=== PATIENT | male | born 1945 | race Caucasian/White ===

== ENCOUNTER 2016-09-29 20:30 | Observation (INO) | payer MEDICARE, MEDICAID ==
[2016-09-29 20:21] VITALS: PULSE 78
[2016-09-29 21:09] LABS: ADD MANUAL DIFF? NO
[2016-09-29 21:21] LABS: ALB/GLOB RATIO 0.8 (1.1-1.8); BILIRUBIN,TOTAL 0.6 mg/dL (0.2-1.3); CALCIUM 8.4 mg/dL (8.4-10.5); MAGNESIUM 1.6 mg/dL (1.7-2.2); TOTAL PROTEIN 7.1 g/dL (5.8-8.3)
--- NOTE | 2016-09-29 21:26 | ED PDOC ---
Arrival/HPI <Leoncio Mata - Last Filed: 09/29/16 23:02> - General Historian: Patient, Spouse - History of Present Illness Symptom Onset: Sudden Symptom Course: Improving Quality: Pressure Severity Level: Moderate Activities at Onset: Rest Context: Sitting <Erik Petty - Last Filed: 09/30/16 03:04> - General Chief Complaint: Chest Pain Time Seen by Provider: 09/29/16 20:53 - History of Present Illness Narrative History of Present Illness (Text): 09/29/16 21:20 71 M with PMHx of CAD, systolic dysfunction CHF (EF: 15%), IDDM, HTN, AICD placement and Afib on coumadin presented to the [facility] ED accompanied by his with complaints of substernal chest pressure/pain with associated left arm heaviness. Pt's detailed that at approx 7pm, she was in the middle of giving him his medications when he suddenly started feeling the chest pain. He noted that the pain persisted for approx a half hour until he was given medication "to keep under his tongue" which alleviated his chest pains and improved his left arm heaviness. Pt denied fever, chills, sob, chest pains, palpitations, abdominal pains, n/v/d/c or urinary symptoms. PMD - Dr. Palacios System Administration Manager - Dr. Mathews (JovannyJuan Pablokathya) Past Medical History - Provider Review Nursing Documentation Reviewed: Yes <Leoncio Mata - Last Filed: 09/29/16 23:02> - Infectious Disease Hx of Infectious Diseases: None - Tetanus Immunization Tetanus Immunization: Unknown - Cardiac Hx Cardiac Disorders: Yes Hx Cardiac Arrhythmia: Yes Hx Congestive Heart Failure: Yes Hx Hypertension: Yes Hx Internal Defibrillator: Yes Hx Pacemaker: Yes Hx Peripheral Vascular Disease: Yes (DVT UPPER EXT) - Pulmonary Hx Respiratory Disorders: Yes Hx Chronic Obstructive Pulmonary Disease (COPD): Yes - Neurological Hx Neurological Disorder: Yes HX Cerebrovascular Accident: Yes Hx Transient Ischemic Attacks (TIA): Yes - HEENT Hx HEENT Disorder: Yes Hx Cataracts: Yes - Renal Hx Renal Disorder: Yes (Renal insufficinecy) - Endocrine/Metabolic Hx Endocrine Disorders: Yes Hx Diabetes Mellitus Type 1: Yes Hx Diabetes Mellitus Type 2: Yes - Hematological/Oncological Hx Blood Disorders: Yes Hx Anemia: Yes - Integumentary Hx Dermatological Disorder: No - Musculoskeletal/Rheumatological Hx Falls: Yes - Gastrointestinal Hx Gastrointestinal Disorders: Yes (BOWEL OBSTRUCTION) Hx Colostomy: Yes - Genitourinary/Gynecological Hx Genitourinary Disorders: Yes Hx Prostate Problems: Yes (BPH) - Psychiatric Hx Psychophysiologic Disorder: Yes Hx Depression: Yes Hx Substance Use: No - Surgical History Hx Cardiac Catheterization: Yes Hx Coronary Stent: Yes Hx Open Heart Surgery: Yes - Anesthesia Hx Anesthesia Reactions: No Hx Malignant Hyperthermia: No - Suicidal Assessment Feels Threatened In Home Enviroment: No <Erik Petty - Last Filed: 09/30/16 03:04> Family/Social History - Physician Review Nursing Documentation Reviewed: Yes Family/Social History: No Known Family HX <Leoncio Mata - Last Filed: 09/29/16 23:02> Smoking Status: Former Smoker Hx Alcohol Use: No Hx Substance Use: No Hx Substance Use Treatment: No <Erik Petty - Last Filed: 09/30/16 03:04> Allergies/Home Meds <Leoncio Mata - Last Filed: 09/29/16 23:02> <Erik Petty - Last Filed: 09/30/16 03:04> Allergies/Adverse Reactions: Allergies No Known Allergies Allergy (Verified 09/29/16 20:30) Home Medications: Home Meds Medication Instructions Recorded Confirmed Multivitamin [Daily Vitamin 1 each PO DAILY 02/04/16 09/29/16 Formula] Atorvastatin [Lipitor] 10 mg PO HS 05/13/16 09/29/16 Dutasteride 0.5 mg PO DAILY 05/13/16 09/29/16 Ferrous Sulfate [Feosol] 325 mg PO BID 05/13/16 09/29/16 Carvedilol [Coreg] 12.5 mg PO BID 05/20/16 09/29/16 Calcium Carbonate/Vitamin D3 1 each PO DAILY 09/10/16 09/29/16 [Calcium 600+D Softgel] Furosemide [Lasix] 40 mg PO DAILY 09/10/16 09/29/16 Pantoprazole [Protonix] 40 mg PO DAILY 09/10/16 09/29/16 Prednisone [Teresa] 5 mg PO DAILY 09/10/16 09/29/16 Coumadin 2 mg PO HS 09/13/16 09/29/16 Entresto 24 mg-26 mg Tablet 24 mg PO BID 09/13/16 09/29/16 Insulin Glargine, Recombina 10 units SQ BID 09/13/16 09/29/16 [Lantus] Insulin Lispro-LOW [humALOG LOW] See Protocol SQ ACHS 09/13/16 09/29/16 Lasix 40 mg PO DAILY 09/13/16 09/29/16 Sacubitril/Valsartan [Entresto 24 1 tab PO BID 09/13/16 09/29/16 mg-26 mg Tablet] Warfarin [Coumadin] 2 mg PO DIN 09/13/16 09/29/16 Review of Systems - Review of Systems Constitutional: absent: Fevers Cardiovascular: Chest Pain Gastrointestinal: absent: Abdominal Pain, Nausea, Vomiting <Leoncio Mata - Last Filed: 09/29/16 23:02> - Physician Review All systems were reviewed & negative as marked: Yes <Erik Petty - Last Filed: 09/30/16 03:04> Physical Exam Vital Signs Reviewed: Yes Temperature: Afebrile Blood Pressure: Normal Pulse: Regular Respiratory Rate: Normal Appearance: Positive for: Comfortable Pain Distress: None Mental Status: Positive for: Alert and Oriented X 3 - Systems Exam Head: Present: Atraumatic, Normocephalic Pupils: Present: PERRL Extroacular Muscles: Present: EOMI Conjunctiva: Present: Normal Mouth: Present: Moist Mucous Membranes Neck: Present: Normal Range of Motion Respiratory/Chest: Present: Clear to Auscultation, Good Air Exchange. No: Respiratory Distress, Accessory Muscle Use Cardiovascular: Present: Regular Rate and Rhythm, Normal S1, S2. No: Murmurs Abdomen: Present: Normal Bowel Sounds, Other (Rt Colostomy with stool noted). No: Tenderness, Distention, Peritoneal Signs Upper Extremity: Present: Normal Inspection. No: Cyanosis, Edema Lower Extremity: Present: Normal Inspection. No: Edema Neurological: Present: GCS=15, CN II-XII Intact, Speech Normal Skin: Present: Warm, Dry, Normal Color. No: Rashes Psychiatric: Present: Alert, Oriented x 3, Normal Insight, Normal Concentration <Erik Petty - Last Filed: 09/30/16 03:04> Vital Signs Temp Pulse Resp BP Pulse Ox 09/30/16 00:00 78 16 137/71 95 09/29/16 22:30 83 16 129/75 100 09/29/16 22:00 77 18 151/82 H 96 09/29/16 20:21 98.4 F 105 H 18 144/89 97 Medical Decision Making - Lab Interpretations I have reviewed the lab results: Yes - EKG Interpretation Interpreted by ED Physician: Yes Type: 12 lead EKG <Leoncio Mata - Last Filed: 09/29/16 23:02> Reassessment Condition: Improved - EKG Interpretation Comparison: Similar to previous EKG <Erik Petty - Last Filed: 09/30/16 03:04> ED Course and Treatment: Pt seen and evaluated with nuclear medical tech. Aware and agree with HPI, clinical findings, plan, and management. Pt, whose past medical history includes CAD, CHF , IDDM, hypertension, AICD, and atrial fibrillation on Coumadin, presented complaining of substernal chest pressure with left arm heaviness tonight. Plan: -- EKG -- Chest X-ray -- Labs, cardiac enzymes -- UA -- Reassess and disposition Prior Visits: Notes and results from previous visits were reviewed. Progress Notes: 09/29/16 22:[address] Palacios, who is aware and agrees with plan. Accepts pt in to his service. Pt will go to Telemetry observation for chest pain. (Leoncio Mata) - Lab Interpretations Lab Results: 09/29/16 21:07 09/29/16 21:07 Lab Results 09/29/16 21:50: Urine Color Yellow, Urine Appearance Clear, Urine pH 6.0, Ur Specific [place] 1.015, Urine Protein 100 H, Urine Glucose (UA) Negative, Urine Ketones Negative, Urine Blood Moderate H, Urine Nitrate Negative, Urine Bilirubin Negative, Urine Urobilinogen 0.2, Ur Leukocyte Esterase Negative, Urine RBC 0 - 2, Urine WBC 0 - 2, Ur Epithelial Cells 0 - 2, Urine Bacteria Few 09/29/16 21:07: WBC 5.0, RBC 4.52, Hgb 11.7 L, Hct 35.1 L, MCV 77.7 L, MCH 25.9 , MCHC 33.3, RDW 16.2 H, Plt Count 215, MPV 10.5, Gran % 48.8 L, Lymph % (Auto) 33.7, [place] % (Auto) 15.3 H, Eos % (Auto) 2.0, Baso % (Auto) 0.2, Gran # 2.42, Lymph # 1.7, [place] # 0.8 H, Eos # 0.1, Baso # 0.01, Sodium 129 L, Potassium 5.2 H , Chloride 102, Carbon Dioxide 22, Anion Gap 10, BUN 35 H, Creatinine 1.9 H, Est GFR ( Amer) 42, Est GFR (Non-Af Amer) 35, Random Glucose 188 H, Calcium 8.4, Magnesium 1.6 L, Total Bilirubin 0.6, AST 43, ALT 25, Alkaline Phosphatase 146 H, Lactate Dehydrogenase 699, Total Creatine Kinase 60, Troponin I 0.01 D, Total Protein 7.1, Albumin 3.3, Globulin 3.9, Albumin/ Globulin Ratio 0.8 L - RAD Interpretation Radiology Orders: 09/29/16 20:53 CHEST PORTABLE [RAD] Stat Disposition/Present on Arrival <Leoncio Mata - Last Filed: 09/29/16 23:02> - Present on Arrival Any Indicators Present on Arrival: No History of DVT/PE: No History of Uncontrolled Diabetes: No Urinary Catheter: No History of Decub. Ulcer: No History Surgical Site Infection Following: None - Disposition Have Diagnosis and Disposition been Completed?: Yes Disposition Time: 22:00 <Erik Petty - Last Filed: 09/30/16 03:04> - Disposition Diagnosis: Chest pain Disposition: HOSPITALIZED Patient Problems: Current Active Problems Problem Status Diagnosed Hyperglycemia Acute Left upper extremity deep vein thrombosis Acute Condition: STABLE
[2016-09-29 21:30] LABS: POTASSIUM 5.2 mmol/L (3.6-5.0)
[2016-09-29 21:32] LABS: BASO # 0.01 K/mm3 (0.0-2.0); BASO % 0.2 % (0.0-3.0); EOS # 0.1 (0.0-0.7); GRAN # 2.42 (1.4-6.5); GRAN % 48.8 % (50.0-68.0); HEMATOCRIT 35.1 % (42.0-52.0); LYMPH # 1.7 (1.2-3.4); LYMPH % 33.7 % (22.0-35.0); MEAN CELL VOLUME 77.7 fL (80.0-105.0); MEAN CORPUSCULAR HEMOGLOBIN 25.9 pg (25.0-35.0); MEAN CORPUSCULAR HGB CONC 33.3 g/dl (31.0-37.0); MEAN PLATELET VOLUME 10.5 fl (7.0-11.0); MONO # 0.8 (0.1-0.6); MONO % 15.3 % (1.0-6.0); PLATELET COUNT 215 10^3/uL (120.0-450.0); RED CELL DISTRIBUTION WIDTH 16.2 % (11.5-14.5)
[2016-09-29 21:33] LABS: TROPONIN I 0.01 ng/mL
[2016-09-29 22:14] LABS: URINE BILIRUBIN NEGATIVE (NEGATIVE); URINE BLOOD MODERATE (NEGATIVE); URINE GLUCOSE (UA) NEGATIVE (NEGATIVE); URINE KETONE NEGATIVE (NEGATIVE); URINE LEUKOCYTE ESTERASE NEGATIVE Leu/uL (NEGATIVE); URINE PROTEIN 100 mg/dL (<30 mg/dL); URINE UROBILINOGEN 0.2 E.U./dL (<1 E.U./dL)
[2016-09-29 22:18] LABS: URINE APPEARANCE CLEAR (CLEAR); URINE COLOR YELLOW (YELLOW)
[2016-09-29 22:31] LABS: URINE BACTERIA FEW (NEG); URINE EPITHELIAL CELLS 0 - 2 /hpf (0-5); URINE RBC 0 - 2 /hpf (0-2); URINE WBC 0 - 2 /hpf (0-6)
[2016-09-30 01:26] VITALS: BMI 25.8
[2016-09-30 08:56] LABS: CALCIUM 8.7 mg/dL (8.4-10.5); MAGNESIUM 1.7 mg/dL (1.7-2.2); POTASSIUM 4.4 mmol/L (3.6-5.0)
[2016-09-30 09:09] LABS: TROPONIN I 0.02 ng/mL
--- NOTE | 2016-09-30 09:29 | RAD ---
HISTORY: cp COMPARISON: Comparison is made to the previous study dated 09/10/2016 FINDINGS: LUNGS: Persistent focal opacity at the left mid to lower lung which appears larger and more conspicuous compared to the previous exam. The possibility of underlying mass should be considered. Otherwise no significant interval change in the lungs. PLEURA: No significant pleural effusion identified, no pneumothorax apparent. CARDIOVASCULAR: The cardiac silhouette is enlarged. OSSEOUS STRUCTURES: No significant abnormalities. VISUALIZED UPPER ABDOMEN: Normal. OTHER FINDINGS: None. IMPRESSION: Persistent focal opacity at the mid to lower left lung. Further assessment by CT is suggested to exclude underlying mass lesion. Cardiomegaly and pulmonary vascular congestion.
[2016-09-30] MEDS: VALSARTAN PO SCH (10:01)
[2016-09-30] MEDS: SACUBITRIL PO SCH (10:01)
--- NOTE | 2016-09-30 10:05 | CARD ---
APPROVED REPORT EKG Measurement Heart [id number] <Conclusion> Sinus tachycardia PRWP STTW changes c/w ischemia Small inferior q waves No change
[2016-09-30] MEDS: Multivitamin With Minerals Tab PO SCH (10:06)
[2016-09-30] MEDS: Pantoprazole 40 mg EC Tab PO SCH (10:07)
[2016-09-30] MEDS: Insulin Detemir 100 units/ml Vial (Levemir) SC SCH ×2 (10:07→18:18)
[2016-09-30] MEDS: Calcium-Vit D 250 mg-125 Units Tab UD PO SCH (10:07)
[2016-09-30 11:39] LABS: INR 2.31 (0.93-1.08)
[2016-09-30] MEDS: Insulin Lispro (humaLOG) LOW Coverage SC SCH ×2 (12:01→16:27)
[2016-09-30] MEDS: Levalbuterol 1.25 MG/3 ML Inhal Soln UD IH SCH ×3 (14:16→19:31)
--- NOTE | 2016-09-30 15:59 | CON ---
DATE: 09/30/2016 REASON FOR CONSULTATION AND FOLLOWUP: Chest pain, sharp. BRIEF CLINICAL HISTORY: A 71-year-old male with past medical history of coronary artery disease, status post PTCA, decreased LV function 15%, diabetes, hypertension, hyperlipidemia, status post AICD, atrial fibrillation, paroxysmal , on anticoagulation, cardiomyopathy, ischemic, status post PTCA, as well as endovascular stent, colostomy, came in with a complaint of chest pain, as per . Denies any chest pain now, denies any fevers, denies any chills, denies any cough. PAST MEDICAL HISTORY: Significant for cardiomyopathy, coronary artery disease, status post AICD, multiple admissions with decompensated congestive heart failure, was on home Primacor recently because of refusal from the insurance as patient has to pay from the pocket, 1500 a month, off Primacor, history of paroxysmal atrial fibrillation, history of endovascular stent, on anticoagulation. Last echo shows 4-chamber dilatation, ejection fraction 15%, status post colostomy for colon cancer. PAST SURGICAL HISTORY: Significant for right hemicolectomy, history of colostomy, history of bowel resection, history of endovascular stent for abdominal aortic aneurysm, is status post AICD. Most recent workup as follows: History of echo, most recent SERGO was done that shows dilated LA, dilated LV, ejection fraction 15%, severe mitral regurgitation , mild aortic regurgitation, mild tricuspid regurgitation, complex plaque in descending aorta, pacemaker lead in RA and RV. No vegetation noted. CURRENT MEDICATIONS: The patient is taking at home Coumadin 2 mg, Flomax, valsartan, prednisone, Protonix, insulin, ferrous sulfate, carvedilol, atorvastatin and aspirin. REVIEW OF SYSTEMS: As per HPI. PHYSICAL EXAMINATION: VITAL SIGNS: Temperature afebrile, heart rate 71, blood pressure 140/86. HEENT: PERRLA. Extraocular muscles intact. NECK: Supple. No carotid bruits. No thyromegaly. CHEST: Clear to auscultation. HEART: S1, S2 regular. ABDOMEN: Soft. EXTREMITIES: Clubbing and cyanosis negative. LABORATORY DATA: WBC 5, hemoglobin 13.1, hematocrit 35.1, platelet count 215. Chemistry shows sodium 130, potassium 4.4, [id number], carbon dioxide 23, anion gap of 11, BUN 20 creatinine 1.8. Troponin 0.01 x 2 negative. IMPRESSION: Chest pain, atypical, history of coronary artery disease, history of percutaneous transluminal coronary angioplasty of left anterior descending, history of automatic implantable cardioverter-defibrillator implantation, severe decreased left ventricular function, ejection fraction 15%, severe mitral regurgitation, mild tricuspid regurgitation, mild aortic regurgitation, is status post SERGO recently, no evidence of endocarditis, TA recently done 4 weeks ago, approximately, history of automatic implantable cardioverter- defibrillator, no vegetation in ICD lead, history of endovascular stent for abdominal aortic aneurysm, history of hemicolectomy, history of colostomy, history of bowel resection, paroxysmal atrial fibrillation, therapeutic INR 2.31. RECOMMENDATION: Will do another set of troponin. If negative, will discuss with Dr. Palacios for discharge. The patient's wanted to go home. The patient was on Primacor at home, but since the refusal of insurance, is not on Primacor because patient has to pay from the pocket $1500 a month. Will resume anticoagulation, resume baseline medications and possibly discharge in a day or two. Social work for discharge planning. Thank you, Dr. Palacios, for providing the opportunity in taking care of this patient.i will discuss with Dr. Palacios, as the patient's wanted to be discharged today.i zhanna give prescription for Enteresto if not give on last discharge. Arabella Mathews MD cc: [id number] TT: 09/30/2016 14:49:20 Confirmation # [id number] Dictation # [id number] aimee 09/30/2016 14:58:18 MERCEDES
[2016-09-30 17:50] VITALS: TEMP 98.3
--- NOTE | 2016-09-30 23:25 | CON ---
DATE: 09/30/2016 REFERRING PHYSICIAN: Dr. Palacios REASON FOR CONSULT: Shortness of breath and cough, admitted with chest pain. HISTORY OF PRESENT ILLNESS: This is a 71-year-old gentleman with past medical history significant fo r coronary artery disease, history of severe cardiomyopathy, LV ejection fraction about 15%, diabetes , hypertension, cardiac arrhythmia requiring AICD, had atrial fibrillation, on anticoagulation, histo ry of coronary stent in the past. He had been on Primacor, apparently could not get from the [employer], and the patient and his family could not pay out of pocket. Also, does have snoring, daytime sle epy, high risk for sleep apnea syndrome, but did not do a sleep study as outpatient. So far there is cough and some sputum production. No nausea, no vomiting, no diarrhea. Does have trace leg swellin g. PAST MEDICAL HISTORY: Severe cardiomyopathy, ventricular ejection fraction about 15%, coronary arter y disease, history of coronary stent, atrial fibrillation, also has AICD, chronic lung disease, has a history of left upper lobe lung infiltrate, history of colon cancer requiring colostomy. ALLERGIES: None known. SOCIAL HISTORY: Nonsmoker, nondrinker. FAMILY HISTORY: No significant cardiopulmonary disease reported. REVIEW OF SYSTEMS: No headache, no rhinitis. Does have some cough, short of breath, not much sputum production. On admission, he had chest pain, no nausea, no vomiting, no diarrhea. No dysuria. Leo s have trace leg swelling. PHYSICAL EXAMINATION: GENERAL: Lying in the bed, mild distress secondary to cough and shortness of breath. VITAL SIGNS: Temp is 98, heart rate is 68, respiratory rate is 18, blood pressure 141/84, pulse ox 9 8% on room air. HEENT: Moist mucous membranes. Crowded airway. Mallampati score is 4. NECK: Supple, no JVD. LUNGS: Have a few crackles at the bases, scattered rhonchi. HEART: S1, S2 irregular. ABDOMEN: Soft, nontender. No organomegaly. EXTREMITIES: There is no trace edema. NEUROLOGIC: Awake, alert, follows simple commands. MEDICATIONS: He is on aspirin 81 mg daily, Coreg 12.5 mg twice a day, Coumadin 2 mg daily, which is on hold, ferrous sulfate 324 mg twice a day, Flomax 0.4 mg daily, also on Lasix 40 mg daily, Levemir 5 units subQ twice a day, Lipitor 10 mg daily, Proscar 5 mg daily, Protonix 40 mg daily, multivitamin s daily, vitamin K 10 mg subQ once was given, Xopenex inhaled q. 8 hours. LABORATORY DATA: Shows hemoglobin 11.7, hematocrit 35.1, WBC 5.0, platelet is 215. Today's INR is 2 .31. Sodium 133, potassium 4.4, chloride 103, bicarbonate 23, BUN 33, creatinine 1.8, glucose 142, c alcium 8.7, magnesium 1.7. Troponin is 0.02. ProBNP 7820. Urinalysis shows moderate blood, positiv e protein. Chest x-ray, done today, shows persistent focal opacity at the mid to lower left lung, cardiomegaly, and also has some congestion. IMPRESSION AND PLAN: Chronic obstructive lung disease, has a left upper lobe density, status post pn eumonia, atrial fibrillation, cardiomyopathy, has AICD. We will get CT scan of the chest to follow u p on the previous infiltrates/nodule. Maximize afterload protocol officer. Inhaled bronchodilator. We will place patient on BiPAP 10/, with 35% oxygen while sleeping. I spoke to the patient's about the risk/benefit of sleep apnea and use of BiPAP. Cardiology followup. Thank you and we will follow wi th you. Arabella Alva MD cc: [id number] TT: 09/30/2016 23:24:37 Confirmation # [id number] Dictation # [id number] ln
[2016-10-01] MEDS: Insulin Lispro (humaLOG) LOW Coverage SC SCH ×4 (00:31→16:37)
[2016-10-01] MEDS ORDERED: Phytonadione 10 mg/ml Inj (Adult) SC ONE (08:00)
[2016-10-01] MEDS: Levalbuterol 1.25 MG/3 ML Inhal Soln UD IH SCH ×2 (08:27→13:14)
[2016-10-01] MEDS: Pantoprazole 40 mg EC Tab PO SCH (08:42)
[2016-10-01] MEDS: SACUBITRIL PO SCH (09:38)
[2016-10-01] MEDS: VALSARTAN PO SCH (09:38)
[2016-10-01] MEDS: Insulin Detemir 100 units/ml Vial (Levemir) SC SCH (09:43)
[2016-10-01] MEDS: Multivitamin With Minerals Tab PO SCH (09:44)
[2016-10-01] MEDS: Calcium-Vit D 250 mg-125 Units Tab UD PO SCH (09:44)
[2016-10-01 09:45] VITALS: PULSE 80
--- NOTE | 2016-10-01 10:15 | PN ---
DATE: 10/01/2016 REASON FOR CONSULTATION AND FOLLOWUP: Chest pain, sharp, atypical, cardiac evaluation, history of co ronary artery disease, history of AICD. BRIEF CLINICAL HISTORY: A 71-year-old male with a past medical history significant for coronary leigh ann ry disease, status post PTCA of LAD by Dr. Fransico Cabral a couple of years ago, history of signifi cantly decreased LV function, ejection fraction 15%, diabetes, hypertension, hyperlipidemia, status p ost AICD, atrial fibrillation, paroxysmal, on anticoagulation, cardiomyopathy, ischemic, status post PTCA, status post endovascular stent, status post colostomy, was on Primacor, but stopped by [employer] because patient has to pay from the pocket $1500, which the patient cannot afford. Admitted yester day with sharp pain. So far, troponin remains negative. PHYSICAL EXAMINATION: VITAL SIGNS: Temperature afebrile, heart rate 74, blood pressure 144/76. HEENT: PERRLA. Extraocular muscles intact. NECK: Supple. No carotid bruit, no thyromegaly. CHEST: Clear to auscultation. HEART: S1 and S2 regular. ABDOMEN: Soft. EXTREMITIES: Clubbing, cyanosis negative. BLOOD WORKUP: WBC 5, hemoglobin 11. , hematocrit 35.1, platelet count 215. Chemistry shows sodi um 130, potassium 4.4, chloride 103, carbon dioxide 23, anion gap of 11, BUN 33, creatinine 1.8. Tro ponin 0.10, 0.02, 0.02. IMPRESSION: Chest pain, atypical, no evidence of acute coronary syndrome, no evidence of unstable an kaylynn, chronic renal insufficiency, creatinine clearance 37 mL stage III-IV chronic kidney disea se, diabetes, hypertension, hyperlipidemia, coronary artery disease, status post percutaneous translu vanesa coronary angioplasty and stent in left anterior descending, cardiomyopathy, probably ischemic, status post automatic implantable cardioverter-defibrillator, multiple admissions for congestive hear t failure, was on home Primacor, stopped because the insurance stopped paying. RECOMMENDATION: Continue hydralazine for blood pressure. Continue aspirin. Continue Coreg. Avoid nephrotoxic medication. We will start Entresto, prescription given to the , / b.i.d. to b e started at home because Entresto is non-formulary. We will discontinue telemetry. History of colo n cancer requiring colostomy. Yesterday, RN called me that patient had previously infiltrate i n the lung and nodule, possibly needs biopsy. I told him it would be very high risk case because the patient has multiple comorbidities including severe cardiomyopathy, decompensated congestive heart f ailure, ejection fraction 15%, automatic implantable cardioverter-defibrillator. So any invasive pro cedure would be very, very high risk and risk/benefit ratio should be assessed before proceeding and also patient's long-term survival should be assessed. If the patient really gets the benefit and imp rove the patient's survival, patient can go. Otherwise, try to treat conservatively. We will discon tinue telemetry. Thank you, Dr. Palacios, for providing us the opportunity in taking care of the patient. No further ca rdiac workup is planned at this time or warranted. Arabella Mathews MD cc: [id number] TT: 10/01/2016 09:58:43 Confirmation # [id number] Dictation # [id number] en
[2016-10-01 10:19] LABS: HEMATOCRIT 35.2 % (42.0-52.0); MEAN CELL VOLUME 77.7 fL (80.0-105.0); MEAN CORPUSCULAR HEMOGLOBIN 25.4 pg (25.0-35.0); MEAN CORPUSCULAR HGB CONC 32.7 g/dl (31.0-37.0); MEAN PLATELET VOLUME 10.7 fl (7.0-11.0); RED CELL DISTRIBUTION WIDTH 16.2 % (11.5-14.5); WHITE BLOOD COUNT 4.6 10^3/ul (4.5-11.0)
[2016-10-01 10:24] LABS: CALCIUM 8.7 mg/dL (8.4-10.5); MAGNESIUM 1.6 mg/dL (1.7-2.2); POTASSIUM 4.7 mmol/L (3.6-5.0)
[2016-10-01 10:25] LABS: INR 1.85 (0.93-1.08)
[2016-10-01] MEDS ORDERED: Magnesium Oxide 400 mg Tab UD PO SCH (11:30)
--- NOTE | 2016-10-01 12:34 | CT ---
PROCEDURE: CT Chest without contrast HISTORY: Eval lingula mass COMPARISON: CT thorax from 09/05/2016 and plain radiographs from 09/29/2016 TECHNIQUE: Contiguous axial images were obtained through the chest without intravenous contrast enhancement. Sagittal and coronal reconstructions were performed. Radiation dose (DLP): 946.19 mGy-cm. FINDINGS: LUNGS: Examination is limited due to motion degraded images. There compared to the prior examination, there is interval increase in size of known round hyperdense mass in the subpleural anterior lingula which now measures 3.2 x 2.9 cm, previously measured 2.6 x 2.1 cm. There is paraseptal emphysema in the right upper lobe. MEDIASTINUM: There is no pathologic mediastinal lymphadenopathy. The aorta is normal in caliber. The heart is normal in size without pericardial effusion. There are atherosclerotic calcifications in the left anterior descending coronary artery. An AICD remains in place the PLEURA: Trace pleural effusions. No pneumothorax. BONES: There are multilevel degenerative changes in the spine without destructive bony lesions. UPPER ABDOMEN: Cholelithiasis. OTHER FINDINGS: None. 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 The differential considerations include malignancy, round pneumonia and round atelectasis. Correlation with PET CT/histopathology would be helpful for further evaluation.
[2016-10-01 13:34] VITALS: RESP 18; O2SAT 100
--- NOTE | 2016-10-01 13:50 | HP ---
DATE OF HISTORY AND PHYSICAL AND EXAMINATION: 09/30/2016 CHIEF COMPLAINT: The patient came in with chest pain. HISTORY OF PRESENT ILLNESS: This is a 71-year-old male with history of coronary artery disease, isch emic cardiomyopathy, permanent pacemaker, multiple medical problems; congestive heart failure, off mi lrinone infusion due to insurance problems. Came in to the hospital with chest pain, retrosternal, l eft side chest pain radiating to his left arm. The patient had this pain at 7:00 p.m., relieved it w ith nitroglycerin as the gave it to him. The patient also had associated shortness of breath, b ut he felt much better after the nitro. Per recurrent chest pain, patient came to the ER for further evaluation. PAST MEDICAL HISTORY: As I mentioned before, ischemic cardiomyopathy, coronary artery disease, abdom inal aortic aneurysm with a stent, hemicolectomy, colostomy, COPD; lung mass, left upper lobe, possib le malignancy; congestive heart failure, EF in the 15%, chronic atrial fibrillations; history of DVT, insulin-dependent diabetes, hypertension, hypercholesterolemia. 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 ALLERGIES: No known allergies. SOCIAL HISTORY: No smoking, no drinking. FAMILY HISTORY: Noncontributory. REVIEW OF SYSTEMS: As in the present illness. PHYSICAL EXAMINATION: VITAL SIGNS: Temperature 98, heart rate ____, blood pressure is 141/84. The patient otherwise comfo rtable. Respiratory rate 20. HEAD AND NECK: Normal. No JVD, no thyromegaly. CHEST: Clear. CARDIAC: First and second sounds are normal. Systolic murmur. ABDOMEN: Soft. There is a colostomy on the right side. EXTREMITIES: No edema. NEUROLOGIC: He has left side weakness but alert, awake, oriented x 3. LABORATORY DATA: On admission shows white count 5, hemoglobin 11.7, hematocrit 35.1, platelets are 2 15. Chemistry shows sodium 133, potassium 4.4, chloride 103, bicarbonate 23, BUN 33, creatinine 1.8, blood sugar 142, calcium 8.7, magnesium 1 and repeat 1.7. The patient has pro-BNP that shows 7820. Chest x-ray shows persistent focal opacity in the left mid to lower lobe lung which appears larger an d more suspicious compared to previous, possible underlying mass. The patient also had electrocardiogram which shows sinus tachycardia, ST-T wave changes consistent wi th ischemia, small inferior Q-waves. IMPRESSION AND PLAN: 1. This is a 71-year-old male with coronary artery disease who came in with chest pain. EKG shows i schemic changes. Will admit the patient for acute coronary artery syndrome. Dr. Mathews, cardiology co nsult. Resume aspirin and can resume his medications. Will follow up clinically. 2. Congestive heart failure, acute on to top of chronic systolic. Continue Lasix. Continue current medicines. 3. Left upper lobe lung mass, probably malignancy. Will get Dr. Alva (pulmonary) consult and Dr. Isaías Infante (interventional radiologist). At this time, patient is taking Coumadin. Will hold off f rom the Coumadin for possible lung biopsy and will continue current treatment. 4. For his diabetes, hypertension and hypercholesterolemia. Resume all other meds. Dexter Palacios MD cc: 223 TT: 10/01/2016 12:58:09 ne
[2016-10-01 14:27] VITALS: BP 138/78
--- NOTE | 2016-10-04 09:10 | PN ---
DATE: 10/01/2016 REFERRING PHYSICIAN: Dr. Palacios. SUBJECTIVELY: The patient is lying in the bed. is at bedside. Night was unremarkable. No hea dache, no rhinitis, mild cough, no chest pain. No nausea, no vomiting, diarrhea, leg pain, or leg sw elling. OBJECTIVELY: No acute distress. Temp is 98, heart rate is 80, blood pressure 141/84. HENT: Moist mucous membranes. Crowded airway. Mallampati score is 4. NECK: Supple, no JVD. LUNGS: Has a few scattered rhonchi and crackles at the bases. HEART: S1, S2. ABDOMEN: Soft, nontender. No organomegaly. EXTREMITIES: There is no edema. NEUROLOGICALLY: Awake, alert. Follows simple commands. MEDICATIONS: He is on hydralazine 25 mg 3 times a day, aspirin 81 mg daily, Coreg 12.5 mg twice a da y, Coumadin 2 mg daily which is on hold, ferrous sulfate 324 mg twice a day, Flomax 0.4 mg daily, ins ulin coverage, Lasix 40 mg IV daily, Levemir is 5 units subQ twice a day, Lipitor 10 mg daily, magnes ium oxide 400 mg daily, Proscar 5 mg daily, Protonix 40 mg ACB, multivitamins daily, Xopenex inhaled 3 times a day. LABORATORY DATA: Shows hemoglobin 11.5, hematocrit 35.2, WBC 4.6, platelet is 216. INR 1.85. Sodiu m 134, potassium 4.7, chloride 104, bicarbonate is 27, BUN 38, creatinine 2.1, glucose 234, calcium 8 .7, magnesium 1.6. Has a CAT scan of the chest done in for followup for left upper lobe nodule with infiltrate. So, it shows interval increase in size of the known subpleural zimmerman in the interior lingula which is normal ly at 32.2 to 2.9 cm. The differential considerations include malignancy, , pneumonia, at electasis. IMPRESSION AND PLAN: Chronic obstructive lung disease, lung mass status post pneumonia, atrial fibri llation, cardiomyopathy, AICD. May have a component of sleep apnea syndrome. Need to biopsy the infiltrate. High risk for complications. understands. Will speak to Dr. Sa clayton. For now, continue BiPAP. Keep head 45 degrees. Bronchodilator, diuretics, afterload fbi sharpshooter. Thank you, and will follow with you. Arabella Alva MD cc: [phone] TT: 10/01/2016 17:49:20 Confirmation # [id number] Dictation # [id number] jn
--- NOTE | 2016-10-04 14:17 | DS ---
The patient is a 71-year-old male. The patient is stable. The patient was admitted with shortness o f breath and was seen by machine builder and cleared him for discharge. He was given IV Lasix. The pat ient also had a CT lung mass which shows needs a biopsy to rule out malignancy. Otherwise, the patie nt seems stable. Discussed with the machine builder, other specialists. The patient will be discharged home to be followed up as outpatient after getting a CT and we will hold off on any anticoagulation. The patient also was seen by Dr. Isaías Infante for evaluation for biopsy. PHYSICAL EXAMINATION: On date of discharge, which 10/01/2016: VITAL SIGNS: Temperature 98, heart rate 80, blood pressure is 138/78, respirations 18, saturation 97 %. HEAD AND NECK: Normal. No JVD, no thyromegaly. CHEST: Clear, good entry. CARDIAC: First and second sounds are normal. ABDOMEN: Soft, nontender. EXTREMITIES: No edema. NEUROLOGIC: Normal. LABORATORY DATA: CT lungs shows increased size of the left pleural-based lung mass. White count 4.6, hemoglobin 11.5, hematocrit 35.2, platelets 216. Chemistry shows sodium 134, potass ium 4.7, chloride 101, bicarbonate 27, BUN 38, creatinine 2.1, blood sugar is 104. IMPRESSION AND PLAN: 1. Left lung mass, seen by pulmonary consult, Dr. Alva, as well as Dr. Isaías Infante for biopsy. Cou madin INR is high. We will hold off on Coumadin. Vitamin K given. We will discharge the patient to bring him back next week for biopsy. 2. Chronic congestive heart failure. Continue Lasix. Continue all his previous medications. 3. Hypertension, chronic atrial fibrillation, history of deep venous thrombosis, insulin-dependent d iabetes, history of abdominal aneurysm, hypercholesterolemia, colostomy, history of recurrent urinary tract infection, renal insufficiency, chronic. This patient will be discharged and follow up as outpatient. Follow up as outpatient with Dr. Isaías Infante for biopsy. Dexter Palacios MD cc: 223 TT: 10/04/2016 14:16:14 rn
== END 2016-10-01 18:34 | disposition home or self-care (01) ==
LOC: ED 20:30 → ERH 22:34 → 2RNO 09-30 00:28
PROVIDERS: ADMIT Internal Medicine; ATTEND Internal Medicine
DX: R07.89 Other chest pain (principal); I11.0 Hypertensive heart disease with heart failure; I50.23 Acute on chronic systolic (congestive) heart failure; I25.5 Ischemic cardiomyopathy; J44.9 Chronic obstructive pulmonary disease, unspecified; I71.4 Abdominal aortic aneurysm, without rupture; I69.354 Hemiplegia and hemiparesis following cerebral infarction affecting left non-dominant side; I48.0 Paroxysmal atrial fibrillation; E11.65 Type 2 diabetes mellitus with hyperglycemia; E78.5 Hyperlipidemia, unspecified; I08.3 Combined rheumatic disorders of mitral, aortic and tricuspid valves; I25.10 Atherosclerotic heart disease of native coronary artery without angina pectoris; R91.1 Solitary pulmonary nodule; Z86.718 Personal history of other venous thrombosis and embolism; Z95.810 Presence of automatic (implantable) cardiac defibrillator; Z87.01 Personal history of pneumonia (recurrent); Z93.3 Colostomy status; Z79.4 Long term (current) use of insulin; Z95.5 Presence of coronary angioplasty implant and graft; Z79.01 Long term (current) use of anticoagulants; Z85.038 Personal history of other malignant neoplasm of large intestine; Z90.49 Acquired absence of other specified parts of digestive tract
CPT/HCPCS: 36415; 71010; 71250; 80048; 80053; 81001; 82550; 82948; 83615; 83735; 83880; 84484; 85025; 85027; 85610; 93005; 94640; 94660; 99285; G0378; J1940; J3430

== ENCOUNTER 2016-10-04 10:54 | Day surgery (SDC) | payer MEDICARE, MEDICAID ==
[2016-09-10 18:11] VITALS: PULSE 78
[2016-10-01 13:10] VITALS: BMI 25.2
[2016-10-04 11:39] LABS: ADD MANUAL DIFF? NO
--- NOTE | 2016-10-04 11:50 | CP.SDSHP ---
Same Day Surgery H & P - History Proposed Procedure: left lung Bx. Pre-Op Diagnosis: persistant and expanded opacity in the left lung mid to lower lung area. - Previous Medical/Surgical History Cardiac: Hypertension, ASHD/CAD, Hx of CHF, Arrhythmia, PVD Pulmonary: Asthma, Bronchitis, Smoking Endocrine/Metabolic: Diabetes, Renal Disease Pain: 0. No Pain - Allergies Allergies: Allergies No Known Allergies Allergy (Verified 09/29/16 20:30) - Physical Exam General Appearance: wnl.decreased mobility secondry to weakness. Mental Status: Alert & Oriented x3 Neuro: WNL Heart: WNL Lungs: WNL GI: Other (pt has colostomy.) - Impression Impression: abnormal ct chest /lung opacity.left mid to lower lung region. - Date & Time Date: 10/04/16 Time: 11:49 Short Stay Discharge - Short Stay Discharge Admitting Diagnosis/Reason for Visit: LUNG NODULE Disposition: HOME/ ROUTINE
[2016-10-04 11:58] LABS: CALCIUM 8.6 mg/dL (8.4-10.5); INR 1.16 (0.93-1.08); PARTIAL THROMBOPLASTIN TIME 26.4 Seconds (23.7-30.8)
[2016-10-04 11:59] LABS: BASO # 0.02 K/mm3 (0.0-2.0); BASO % 0.3 % (0.0-3.0); EOS # 0.1 (0.0-0.7); GRAN # 3.57 (1.4-6.5); GRAN % 59.3 % (50.0-68.0); HEMATOCRIT 35.3 % (42.0-52.0); LYMPH # 1.8 (1.2-3.4); LYMPH % 29.1 % (22.0-35.0); MEAN CELL VOLUME 78.4 fL (80.0-105.0); MEAN CORPUSCULAR HGB CONC 33.1 g/dl (31.0-37.0); MEAN PLATELET VOLUME 11.2 fl (7.0-11.0); MONO # 0.6 (0.1-0.6); MONO % 10.3 % (1.0-6.0); PLATELET COUNT 285 10^3/uL (120.0-450.0); RED CELL DISTRIBUTION WIDTH 16.4 % (11.5-14.5)
[2016-10-04] MEDS ORDERED: Midazolam 2 MG/2 ML VIAL ONE (12:37)
[2016-10-04] MEDS ORDERED: Oxycodone/Acetaminophen 5/325 mg Tab PO PRN (14:09)
[2016-10-04] MEDS ORDERED: Sodium Chloride 0.45% 1,000 ML IV SCH (14:15)
[2016-10-04 15:18] VITALS: RESP 18; TEMP 97.4
[2016-10-04 15:58] VITALS: BP 133/76; PULSE 78; O2SAT 99
--- NOTE | 2016-10-04 16:24 | RAD ---
HISTORY: left lung bx COMPARISON: Comparison is made to the previous study dated 09/29/2016 FINDINGS: LUNGS: No significant interval change in the lungs noted since the previous exam. Persistent opacity at the mid left lung. PLEURA: No evidence of significant pneumothorax in this limited portable exam. CARDIOVASCULAR: Normal. OSSEOUS STRUCTURES: No significant abnormalities. VISUALIZED UPPER ABDOMEN: Normal. OTHER FINDINGS: None. IMPRESSION: No radiographic evidence of significant left-sided pneumothorax. No significant interval change compared to the previous exam.
--- NOTE | 2016-10-04 19:49 | CT ---
PROCEDURE: CT guided left upper lobe lung biopsy. HISTORY: 3 cm left upper lobe lung mass. AV is smoker. Evaluate for malignancy. PHYSICIAN(S): Isaías Infante MD. TECHNIQUE: The relative risks and indications of the procedure were explained to the patient's family and consent obtained. The patient was placed supine on the CT scanner and preliminary images through the upper lungs obtained. Conscious sedation and monitoring were provided throughout the procedure by a nurse. There is a 3 cm noncalcified mass in the peripheral aspect of the lingula.. A left anterior oblique approach was selected and the area prepped and draped in the usual sterile fashion. 1% Xylocaine was used to anesthetize the skin and soft tissues. A 19 gauge guiding needle was advanced into the 3 cm left upper lobe lung mass. Its position was confirmed with CT. Using coaxial technique, multiple core biopsies were obtained. The postprocedure images show no evidence of large pneumothorax or significant hemorrhage.. IMPRESSION: 1. CT-guided left upper lobe biopsy as described above.
== END 2016-10-04 17:05 | disposition home or self-care (01) ==
LOC: SDS 10:54
PROVIDERS: ATTEND Radiology Vascular & Interventional Radiology
DX: C34.12 Malignant neoplasm of upper lobe, left bronchus or lung (principal); I25.10 Atherosclerotic heart disease of native coronary artery without angina pectoris; I50.9 Heart failure, unspecified; I11.0 Hypertensive heart disease with heart failure; F17.210 Nicotine dependence, cigarettes, uncomplicated; E11.9 Type 2 diabetes mellitus without complications
CPT/HCPCS: 32405; 36415; 71010; 77012; 80048; 85025; 85610; 85730; 88305; J2405; J3010; J7030

== ENCOUNTER 2016-11-16 07:32 | Inpatient (IN) | payer MEDICARE, MEDICAID ==
[2016-11-16 07:35] VITALS: PULSE 78; BMI 25.2
--- NOTE | 2016-11-16 07:50 | ED PDOC ---
Arrival/HPI - General Chief Complaint: High Blood Pressure Time Seen by Provider: 11/16/16 07:40 Historian: Other (Family) EM Caveat: Dementia - History of Present Illness Narrative History of Present Illness (Text): 11/16/16 07:47 71-year-old male with a history of a pacemaker, prior stroke, rebound, presents with his via EMS. Patient's states that this morning his blood pressure was high in the 200s systolic, states that he was complaining of nausea , and she also found him to be diaphoretic. Currently patient is asymptomatic. She states that his mental status is baseline. Symptom Onset: Sudden Symptom Course: Unchanged Activities at Onset: Rest Context: Home Past Medical History - Provider Review Nursing Documentation Reviewed: Yes - Infectious Disease Hx of Infectious Diseases: None - Tetanus Immunization Tetanus Immunization: Unknown - Cardiac Hx Pacemaker: Yes - Pulmonary Hx Respiratory Disorders: Yes Hx Chronic Obstructive Pulmonary Disease (COPD): Yes - Neurological Hx Paralysis: No - HEENT Hx HEENT Disorder: Yes Hx Cataracts: Yes - Renal Hx Renal Disorder: Yes (Renal insufficinecy) - Endocrine/Metabolic Hx Endocrine Disorders: Yes Hx Diabetes Mellitus Type 1: Yes Hx Diabetes Mellitus Type 2: Yes - Hematological/Oncological Hx Blood Transfusions: No Hx Blood Transfusion Reaction: No - Integumentary Hx Dermatological Disorder: No - Musculoskeletal/Rheumatological Hx Musculoskeletal Disorders: Yes - Gastrointestinal Hx Gastrointestinal Disorders: Yes (BOWEL OBSTRUCTION) Hx Colostomy: Yes - Genitourinary/Gynecological Hx Genitourinary Disorders: Yes Hx Prostate Problems: Yes (BPH) - Psychiatric Hx Emotional Abuse: No Hx Physical Abuse: No Hx Substance Use: No - Surgical History Other/Comment: Colostomy - Anesthesia Hx Anesthesia Reactions: No Hx Malignant Hyperthermia: No - Suicidal Assessment Feels Threatened In Home Enviroment: No Family/Social History - Physician Review Nursing Documentation Reviewed: Yes Family/Social History: No Known Family HX Smoking Status: Former Smoker Hx Alcohol Use: No Hx Substance Use: No Hx Substance Use Treatment: No Allergies/Home Meds Allergies/Adverse Reactions: Allergies No Known Allergies Allergy (Verified 11/16/16 07:43) Home Medications: Home Meds Medication Instructions Recorded Confirmed Multivitamin [Daily Vitamin 1 each PO DAILY 02/04/16 11/16/16 Formula] Furosemide [Lasix] 40 mg PO DAILY 09/10/16 11/16/16 Pantoprazole [Protonix] 40 mg PO DAILY 09/10/16 11/16/16 Insulin Glargine, Recombina 14 units SQ HS 09/13/16 11/16/16 [Lantus] Insulin Lispro-LOW [humALOG LOW] See Protocol SQ ACHS 09/13/16 11/16/16 Sacubitril/Valsartan [Entresto 24 1 tab PO BID 09/13/16 11/16/16 mg-26 mg Tablet] Warfarin [Coumadin] 1 mg PO DAILY 10/04/16 11/16/16 Atorvastatin [Lipitor] 10 mg PO DAILY 11/16/16 11/16/16 Dutasteride [Dutasteride] 1 cap PO DAILY 11/16/16 11/16/16 Ferrous Sulfate [Feosol] 325 mg PO BID 11/16/16 11/16/16 Review of Systems - Review of Systems Systems not reviewed;Unavailable: Altered Mental Status Physical Exam Vital Signs Reviewed: Yes Vital Signs Temp Pulse Resp BP Pulse Ox 11/16/16 07:52 98.4 F 78 18 129/90 94 L Temperature: Afebrile Blood Pressure: Normal Pulse: Regular Respiratory Rate: Normal Appearance: Positive for: Well-Appearing, Non-Toxic, Comfortable Pain Distress: None Mental Status: No: Agitated, Lethargic - Systems Exam Head: Present: Atraumatic, Normocephalic Pupils: Present: PERRL Extroacular Muscles: Present: EOMI Conjunctiva: Present: Normal Mouth: Present: Moist Mucous Membranes Neck: Present: Normal Range of Motion. No: MIDLINE TENDERNESS, Paraspinal Tenderness Respiratory/Chest: Present: Clear to Auscultation, Good Air Exchange. No: Respiratory Distress, Accessory Muscle Use Cardiovascular: Present: Regular Rate and Rhythm, Normal S1, S2, Peripheal Pulses Present. No: Murmurs Abdomen: Present: Normal Bowel Sounds, Other (stool in colostomy bag). No: Tenderness, Distention, Peritoneal Signs, Rebound, Guarding Back: Present: Normal Inspection Upper Extremity: Present: Normal Inspection, NORMAL PULSES. No: Cyanosis, Edema Lower Extremity: Present: NORMAL PULSES. No: Edema Neurological: Present: Other (pt uncooperative with exam and has difficulty following all commands. states this is his baseline.) Skin: Present: Warm, Dry, Normal Color. No: Rashes Psychiatric: Present: Alert. No: Anxious, Agitated Medical Decision Making ED Course and Treatment: Impression: 71-year-old male, bedbound, presents after an episode of nausea, diaphoresis, hypertension. Differential Diagnosis include but are not limited to: Sepsis versus urosepsis versus pneumonia versus ACS versus an STEMI. Plan: -- EKG -- Chest xray -- labs -- Urinalysis -- aspirin -- Reassess and disposition Prior Visits: Notes and results from previous visits were reviewed. Patient last seen in the emergency department on 09/29/16 for evaluation of substernal chest pressure/ pain with associated left arm heaviness. Patient was accepted into Dr. Palacios's service. Patient was admitted to Telemetry observation for chest pain. Patient discharged on 10/04/16 to follow up as outpatient. Progress Notes: EKG: Patient's EKG shows normal sinus, 80 bpm, no ST segment elevations, ST depressions in leads V5 and V6. They appear to be slightly more pronounced versus 09/29/16. Interpreted by me. Patient is afebrile and normotensive in the emergency department. chest xray: Creator : Alanna Page MD IMPRESSION: No significant interval change. Redemonstration of known mass in the left upper lobe/ lingula. 11/16/16 09:[address] Palacios in detail, agrees with observation on telemetry for further workup. Patient's aware of and agree with plan. - Lab Interpretations Lab Results: 11/16/16 08:00 11/16/16 08:00 Lab Results 11/16/16 08:00: Sodium 134, Potassium 4.5, Chloride 104, Carbon Dioxide 19 L, Anion Gap 16, BUN 42 H, Creatinine 2.5 H, Est GFR ( Amer) 31, Est GFR ( Non-Af Amer) 25, Random Glucose 117 H, Calcium 8.9, Total Bilirubin 0.7, AST 32 , ALT 35, Alkaline Phosphatase 128, Lactate Dehydrogenase 435, Total Creatine Kinase 66, Troponin I 0.02, NT-Pro-B Natriuret Pep 5130 H, Total Protein 8.0, Albumin 3.5, Globulin 4.5, Albumin/Globulin Ratio 0.8 L 11/16/16 08:00: PT 22.5 H, INR 2.08 H, APTT 41.2 H 11/16/16 08:00: WBC 5.3, RBC 4.41, Hgb 11.6 L, Hct 34.0 L, MCV 77.1 L, MCH 26.3 , MCHC 34.1, RDW 16.6 H, Plt Count 229, MPV 9.9, Gran % 57.2, Lymph % (Auto) 20.3 L, [place] % (Auto) 17.2 H, Eos % (Auto) 5.1 H, Baso % (Auto) 0.2, Gran # 3.02 , Lymph # 1.1 L, [place] # 0.9 H, Eos # 0.3, Baso # 0.01 I have reviewed the lab results: Yes - RAD Interpretation Radiology Orders: 11/16/16 07:45 CHEST PORTABLE [RAD] Stat - EKG Interpretation Interpreted by ED Physician: Yes Type: 12 lead EKG - Medication Orders Current Medication Orders: Vancomycin HCl (Vancomycin 1gm) 1 gm in 250 mls @ 133.333 mls/hr IVPB STAT STA PRN Reason: Protocol Stop: 11/16/16 09:46 Last Admin: 11/16/16 09:07 Dose: 133.333 mls/hr Sodium Chloride (Sodium Chloride 0.9%) 1,000 mls @ 100 mls/hr IV .Q10H ANTHONY Last Admin: 11/16/16 08:47 Dose: 100 mls/hr Discontinued Medications Aspirin (Aspirin Chewable) 324 mg PO STAT STA Stop: 11/16/16 07:47 Last Admin: 11/16/16 08:35 Dose: 324 mg Ceftriaxone Sodium (Rocephin 1 Gram Ivpb) 1 gm in 100 mls @ 200 mls/hr IV STAT STA PRN Reason: Protocol Stop: 11/16/16 08:22 Last Admin: 11/16/16 08:32 Dose: 200 mls/hr - Scribe Statement The provider has reviewed the documentation as recorded by the Abbeyibjean claude Borja All medical record entries made by the Scribe were at my direction and personally dictated by me. I have reviewed the chart and agree that the record accurately reflects my personal performance of the history, physical exam, medical decision making, and the department course for this patient. I have also personally directed, reviewed, and agree with the discharge instructions and disposition. Disposition/Present on Arrival - Present on Arrival Any Indicators Present on Arrival: No History of DVT/PE: No History of Uncontrolled Diabetes: No Urinary Catheter: No History of Decub. Ulcer: No History Surgical Site Infection Following: None - Disposition Have Diagnosis and Disposition been Completed?: Yes Diagnosis: Hypertension Disposition: HOSPITALIZED Disposition Time: 09:20 Patient Plan: Observation Condition: FAIR Referrals: Dexter Palacios MD [Primary Care Provider] - Follow up with primary
[2016-11-16] MEDS ORDERED: cefTRIAXone 1 gm 1 GM/100 ML BAG IV STA (07:53)
[2016-11-16] MEDS ORDERED: Vancomycin 1gm in NS 250ml 1 GM/250 ML BAG IVPB STA (07:54)
[2016-11-16 08:15] LABS: BASO # 0.01 K/mm3 (0.0-2.0); BASO % 0.2 % (0.0-3.0); EOS # 0.3 (0.0-0.7); EOS % 5.1 % (1.5-5.0); GRAN # 3.02 (1.4-6.5); GRAN % 57.2 % (50.0-68.0); LYMPH # 1.1 (1.2-3.4); LYMPH % 20.3 % (22.0-35.0); MEAN CELL VOLUME 77.1 fL (80.0-105.0); MEAN CORPUSCULAR HEMOGLOBIN 26.3 pg (25.0-35.0); MEAN CORPUSCULAR HGB CONC 34.1 g/dl (31.0-37.0); MEAN PLATELET VOLUME 9.9 fl (7.0-11.0); MONO # 0.9 (0.1-0.6); MONO % 17.2 % (1.0-6.0); PLATELET COUNT 229 10^3/uL (120.0-450.0); RED CELL DISTRIBUTION WIDTH 16.6 % (11.5-14.5); WHITE BLOOD COUNT 5.3 10^3/ul (4.5-11.0)
[2016-11-16 08:16] LABS: ADD MANUAL DIFF? NO
[2016-11-16 08:25] LABS: ALB/GLOB RATIO 0.8 (1.1-1.8); BILIRUBIN,TOTAL 0.7 mg/dL (0.2-1.3); CALCIUM 8.9 mg/dL (8.4-10.5); POTASSIUM 4.5 mmol/L (3.6-5.0)
[2016-11-16 08:26] LABS: INR 2.08 (0.93-1.08); PARTIAL THROMBOPLASTIN TIME 41.2 Seconds (23.7-30.8)
[2016-11-16 08:36] LABS: TROPONIN I 0.02 ng/mL
[2016-11-16] MEDS ORDERED: Sodium Chloride 0.9% 1,000 ML IV SCH (08:45)
--- NOTE | 2016-11-16 09:06 | RAD ---
HISTORY: Cough COMPARISON: 10/04/2016 FINDINGS: LUNGS: There is redemonstration of known mass in the left upper lobe and lingula. The right lung is clear. PLEURA: No significant pleural effusion identified, no pneumothorax apparent. CARDIOVASCULAR: Stable position of left-sided unipolar permanent pacing device. OSSEOUS STRUCTURES: No significant abnormalities. VISUALIZED UPPER ABDOMEN: Normal. OTHER FINDINGS: None. IMPRESSION: No significant interval change. Redemonstration of known mass in the left upper lobe/ lingula.
[2016-11-16 11:24] LABS: URINE APPEARANCE SL CLOUDY (CLEAR); URINE BILIRUBIN NEGATIVE (NEGATIVE); URINE BLOOD LARGE (NEGATIVE); URINE COLOR YELLOW (YELLOW); URINE GLUCOSE (UA) NEGATIVE (NEGATIVE); URINE KETONE NEGATIVE (NEGATIVE); URINE LEUKOCYTE ESTERASE LARGE Leu/uL (NEGATIVE); URINE PROTEIN >=300 mg/dL (<30 mg/dL); URINE UROBILINOGEN 0.2 E.U./dL (<1 E.U./dL)
[2016-11-16 11:28] LABS: URINE BACTERIA MANY (NEG); URINE WBC TNTC /hpf (0-6)
[2016-11-16] MEDS ORDERED: DUTASTERIDE 0.5 MG PO SCH (12:15)
[2016-11-16] MEDS: Pantoprazole 40 mg EC Tab PO SCH (13:01)
[2016-11-16] MEDS: Multivitamin Therapeutic Tab PO SCH (14:31)
[2016-11-16] MEDS: SACUBITRIL PO SCH (18:49)
[2016-11-16] MEDS: VALSARTAN PO SCH (18:49)
--- NOTE | 2016-11-16 19:05 | CON ---
DATE: 11/16/2016 REFERRING PHYSICIAN: Dr. Palacios. REASON FOR CONSULT: Chronic obstructive lung disease, lung cancer, has been on radiation therapy. HISTORY OF PRESENT ILLNESS: This is a 71-year-old gentleman with severe cardiomyopathy, left ventric ular ejection fraction about 15%, coronary artery disease, diabetes, hypertension, cardiac arrhythmia requiring AICD, atrial fibrillation, been on anticoagulation, coronary stent, has a left upper lobe poorly differentiated adenocarcinoma been receiving radiation therapy. brought him in with naus ea, diaphoresis and high blood pressure. While in the ER, also developed some chest pain radiating t o the left arm. According to , also having cough and sputum production. No fever, no hemoptysis , no hematemesis, no hematuria, no diarrhea reported. PAST MEDICAL HISTORY: Severe cardiomyopathy, left ventricular ejection fraction about 15%, coronary artery disease, history of coronary stent, atrial fibrillation, history of AICD, chronic lung disease , history of left upper lobe poorly differentiated adenocarcinoma, history of colon cancer requiring colostomy in the remote past. ALLERGIES: None known. SOCIAL HISTORY: Nonsmoker, nondrinker. FAMILY HISTORY: No significant cardiopulmonary disease reported. MEDICATIONS: He is on Coreg 12.5 mg twice a day, Coumadin 2 mg daily, dutasteride 1 capsule daily, a spirin 81 mg daily, ferrous sulfate 324 mg twice a day, Lipitor 10 mg daily, Protonix 40 mg daily, mu ltivitamins daily. Received 1 dose of Rocephin. REVIEW OF SYSTEMS: No headache, not much rhinitis. Has a cough with thick sputum production. Prese ntly, there is no chest pain, no nausea, no vomiting, no diarrhea, no leg pain or leg swelling. PHYSICAL EXAMINATION: GENERAL: Lying in the bed, no acute distress. VITAL SIGNS: Temp is 98, heart rate is 70, respiratory rate is 20, blood pressure 149/74, pulse ox 9 8% on nasal cannula. HEENT: Moist mucous membranes. Crowded airway. Mallampati score is 4. NECK: Supple. No JVD. LUNGS: Has a few scattered rhonchi and wheezing. HEART: S1 and S2. ABDOMEN: Soft, nontender. No organomegaly. EXTREMITIES: There is no edema. NEUROLOGIC: Awake, alert, follows simple commands. LABORATORY DATA: Shows hemoglobin 11.6, hematocrit 34.0, WBC 5.3, platelet is 229. INR 2.08, PTT is 41. Sodium 134, potassium 4.5, chloride 104, bicarbonate 19, BUN 42, creatinine 2.5, glucose is 117 , calcium is 8.9. AST 32, ALT 35, alkaline phosphatase is 128. LDH is 435. Troponin is 0.02. ProB CAGE TENDER 5,130. Albumin is 3.5. Chest x-ray done today shows mass in the left upper lobe/lingula, had a C T PET done on 10/27 which shows hypermetabolic left upper lobe pulmonary nodule approaching to the pl eural surface. IMPRESSION AND PLAN: Chronic obstructive lung disease, poorly differentiated adenocarcinoma of the l eft lung, atrial fibrillation, cardiomyopathy, history of AICD, may have a component of sleep apnea s yndrome. Agree with Dr. Palacios with the present management. We will add inhaled bronchodilator, ant ibiotics. Gastric prophylaxis. Deep venous thrombosis prophylaxis. Sleep apnea precaution. Avoid sedation. Refusing to use CPAP/BiPAP. Thank you and will follow with you. Arabella Alva MD cc: [phone] TT: 11/16/2016 19:04:13 Confirmation # [id number] Dictation # [id number] levon
[2016-11-16] MEDS: Albuterol-Ipratrop 3 mg / 0.5 (3 ml) UD IH SCH (19:40)
[2016-11-16] MEDS: Acetylcysteine 20% Inhal Soln (4ml) IH SCH (19:40)
--- NOTE | 2016-11-16 21:12 | CARD ---
APPROVED REPORT EKG Measurement Heart [id number] VA [id number] <Conclusion> Sinus rhythm with occasional premature ventricular complexes Nonspecific intraventricular conduction delay Nonspecific T wave abnormality Prolonged QT Abnormal ECG
[2016-11-16] MEDS: MethylPREDNISolone 40 mg Vial IVP SCH (21:33)
[2016-11-16] MEDS: Meropenem 500 MG in Sodium Chloride 0.9% 100 ML IVPB SCH (21:36)
[2016-11-17] MEDS: Acetylcysteine 20% Inhal Soln (4ml) IH SCH ×4 (01:41→19:37)
[2016-11-17] MEDS: Albuterol-Ipratrop 3 mg / 0.5 (3 ml) UD IH SCH ×4 (01:41→19:36)
[2016-11-17 07:13] LABS: HEMATOCRIT 35.3 % (42.0-52.0); MEAN CELL VOLUME 77.9 fL (80.0-105.0); MEAN CORPUSCULAR HEMOGLOBIN 25.6 pg (25.0-35.0); MEAN CORPUSCULAR HGB CONC 32.9 g/dl (31.0-37.0); MEAN PLATELET VOLUME 10.2 fl (7.0-11.0); RED CELL DISTRIBUTION WIDTH 16.8 % (11.5-14.5); WHITE BLOOD COUNT 3.1 10^3/ul (4.5-11.0)
[2016-11-17 07:30] LABS: CALCIUM 8.8 mg/dL (8.4-10.5); POTASSIUM 5.2 mmol/L (3.6-5.0)
[2016-11-17] MEDS: VALSARTAN PO SCH ×3 (10:00→19:06)
[2016-11-17] MEDS: SACUBITRIL PO SCH ×3 (10:00→19:06)
[2016-11-17] MEDS: DUTASTERIDE 0.5 MG PO SCH (10:34)
[2016-11-17] MEDS: Multivitamin Therapeutic Tab PO SCH (10:35)
[2016-11-17] MEDS: Meropenem 500 MG in Sodium Chloride 0.9% 100 ML IVPB SCH ×2 (10:35→22:30)
[2016-11-17] MEDS: MethylPREDNISolone 40 mg Vial IVP SCH ×2 (10:35→22:30)
[2016-11-17] MEDS: Pantoprazole 40 mg EC Tab PO SCH (10:35)
[2016-11-17] MEDS ORDERED: Sod Polystyrene Sulf 15 gm/60 ml Oral Susp PO ONE (12:28)
--- NOTE | 2016-11-17 13:11 | HP ---
The patient was seen in the Emergency Room on 11/16/2016. The patient was brought in by the because of his feeling nauseous, sweating, week and history of vomiting 1 time. HISTORY OF PRESENT ILLNESS: This is a 71-year-old male with lung cancer, recently diagnosed, undergo ing radiation therapy on daily basis to his left lung. He has been doing okay as usual till day of a dmission. The patient was seen. He felt nauseous, sweaty, very weak, could not stay ____ and instea d of going to radiation he came to the ER for evaluation. He does have history of diabetes, coronary artery disease, abdominal aortic aneurysm, congestive heart failure and has been taking Entresto and seems to be doing okay with that. There are no other complaint other than the above. He does take all his medicines. ALLERGIES: No known allergy. PAST MEDICAL HISTORY: As I mentioned before, coronary artery disease, bypass surgery, chronic atrial fibrillation, ischemic cardiomyopathy, permanent pacemaker defibrillator, off milrinone infusion, cu rrently on Entresto 24-26 mg twice a day. The patient also had a history of abdominal aortic aneurys m with stent placement, has bowel resection with ileostomy, history of recurrent urinary tract infect ions; history of CVA, in a wheelchair, the patient is bedridden, but he can use a wheelchair to move around. SOCIAL HISTORY: He lives with his . Daughter is very supportive. is very supportive. He quit smoking. No drinking problems. HOME MEDICATIONS: He is taking dutasteride for prostate 1 capsule daily, Humalog insulin, Lantus 14 units every day. He takes Os-Brett, vitamin D, Flomax 0.4, Protonix 40. multivitamins, Coreg 12.5 b.i. d., Lipitor 10, Lasix 40 p.o. daily, iron pills 1 twice a day, Ecotrin 81 mg once a day, and warfarin he takes 2 mg daily with good therapeutic INR, and Entresto 24-26 mg p.o. b.i.d. REVIEW OF SYSTEMS: As in the present illness. PHYSICAL EXAMINATION: GENERAL: The patient was seen in the ER. Seems comfortable. Seen by radiation oncology already. T he patient currently has no distress. He is afebrile. VITAL SIGNS: Temperature 97.8, heart rate 88, blood pressure 114/74, respirations 18, saturation 98% on room air. HEAD AND NECK: Normal. No JVD, no thyromegaly. CHEST: Clear. CARDIAC: First and second sounds are normal. There is a systolic murmur across the precordium. ABDOMEN: Soft. There is an ileostomy with colostomy bag on the right side. Bowel sounds intact. EXTREMITIES: No edema. NEUROLOGIC: The patient has right-sided weakness. LABORATORY DATA: When he came in his white count was 5.3, hemoglobin 11.6, hematocrit 34.0, platelet s 229. His INR is 2.08, therapeutic. His chemistry shows sodium 134, potassium 4.5, chloride 104, b icarbonate 19, BUN 42, creatinine 2.5, blood sugar 117. Liver function test is normal. His proBNP i s 5130. Troponin is 0.02. The patient also had a chest x-ray which shows no significant interval change. A mass in the left up per lobe and lingula. The patient also had electrocardiogram which shows nonspecific T-wave changes, nonspecific intraventricular conduction delay, sinus rhythm with occasional premature ventricular co mplexes, prolonged QT. IMPRESSION: A 71-year-old male came with nausea, sweating, weakness. Will admit for observation. P ossible etiology: 1. Underlying sepsis. 2. Cardiac events. 3. Any intrathoracic infections. PLAN: To admit. Blood cultures. ID consult (Dr. Elkins/Dr. Conner). Put him on antibiotic, idalmis roids, inhalers, bronchodilators. Resume Coumadin and Coreg. Follow up clinically. Also Jamar powell as been advised to continue. Continue current therapy. Follow up clinically. Cardiology consult, p ulmonary consult, ID consult. Dexter Palacios MD cc: [phone] TT: 11/17/2016 13:10:53 az
--- NOTE | 2016-11-17 14:28 | PN ---
DATE: 11/17/2016 REFERRING PHYSICIAN: Dr. Palacios. SUBJECTIVE: He is lying in the bed, head at 45 degrees. Night was unremarkable. Feels better. Dec reased cough and sputum production. No nausea, no vomiting, no diarrhea. No leg pain or leg swellin g. is at bedside. OBJECTIVE: GENERAL: In no acute distress. VITAL SIGNS: Temp is 98, heart rate is 71, respiratory rate is 18, blood pressure 123/76, pulse ox 9 6% on room air. HEENT: Moist mucous membranes. No ulcer or oral thrush noted. NECK: Supple. No JVD. LUNGS: Have a few scattered rhonchi and wheezing. HEART: S1, S2. ABDOMEN: Soft, nontender. No organomegaly. EXTREMITIES: There is no edema. NEUROLOGIC: Awake, alert, follows simple commands. MEDICATIONS: He is on Mucomyst 20% inhaled q. 6 hours, Coreg 12.5 mg twice a day, Coumadin 2 mg will be given tonight, doxycycline 100 mg twice a day, DuoNeb q. 6 hours, dutasteride 0.5 mg daily, Ecotr in 81 mg daily, ferrous sulfate 325 mg twice a day, Lipitor 10 mg daily, meropenem 500 mg q. 12 hours , Protonix 40 mg daily, Solu-Medrol 40 mg q. 12 hours, multivitamins daily. LABORATORY DATA: Shows hemoglobin 11.6, hematocrit 35.3, WBC 3.1, platelet is 241. INR 2.08, PTT is 41. Sodium 134, potassium 4.2, chloride 104, bicarbonate 18, BUN 43, creatinine 2.2, glucose is 254 , calcium 8.8. MICROBIOLOGY: Blood culture has been negative without any growth. 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 I spoke to patient's at bedside. All the questions answered. Noted antibiotics use. Will continue idalmis roids. Continue inhaled bronchodilator. Gastric prophylaxis. Deep venous thrombosis prophylaxis. Aspiration precaution. Thank you, and will follow with you. Mohammad Nida MD cc: [phone] TT: 11/17/2016 14:27:10 Confirmation # [id number] Dictation # [id number]
[2016-11-17] MEDS: Insulin Lispro (humaLOG) MEDIUM Coverage SC SCH (17:42)
[2016-11-17] MEDS: Insulin Detemir 100 units/ml Vial (Levemir) SC STA ×2 (17:59→19:07)
--- NOTE | 2016-11-17 18:51 | CP.PCM.CON ---
History of Present Illness - History of Present Illness History of Present Illness: 71 year old male with PMH of healthcare-associated pneumonia, Severe cardiomyopathy with EF 10-15 %, paroxysmal atrial fibrillation, Coronary artery disease S/P stenting, history of aortic aneurysm, history of SVT, S/P AICD placement, S/P procedure on his prostate in 2013, S/P partial colectomy and colostomy came to the ED because of nausea and feeling weak. He was noted to have systolic BP in the 200's. He is being treated for hypertensive urgency. He is also noted to have leukopenia and Infectious Diseases consult is requested to further evaluate and manage. The patient denies fever or chills, has occasional cough, no rhinorrhea, no chest pain, no SOB, no headache or dizziness , no diarrhea, has some increased urinary frequency. Review of Systems - Review of Systems All systems: reviewed and no additional remarkable complaints except (as per HPI ) Past Patient History - Infectious Disease Hx of Infectious Diseases: None - Tetanus Immunizations Tetanus Immunization: Unknown - Past Medical History & Family History Past Medical History?: Yes - Past Social History Smoking Status: Never Smoked - CARDIAC Hx Pacemaker: Yes - PULMONARY Hx Respiratory Disorders: Yes Hx Chronic Obstructive Pulmonary Disease (COPD): Yes - NEUROLOGICAL Hx Neurological Disorder: Yes HX Cerebrovascular Accident: Yes Hx Transient Ischemic Attacks (TIA): Yes - HEENT Hx HEENT Problems: Yes Hx Cataracts: Yes - RENAL Hx Chronic Kidney Disease: Yes (Renal insufficinecy) - ENDOCRINE/METABOLIC Hx Endocrine Disorders: Yes Hx Diabetes Mellitus Type 1: Yes Hx Diabetes Mellitus Type 2: Yes - HEMATOLOGICAL/ONCOLOGICAL Hx Blood Disorders: Yes Hx Anemia: Yes - INTEGUMENTARY Hx Dermatological Problems: No - MUSCULOSKELETAL/RHEUMATOLOGICAL Hx Musculoskeletal Disorders: Yes Hx Falls: Yes - GASTROINTESTINAL Hx Gastrointestinal Disorders: Yes (BOWEL OBSTRUCTION) Hx Colostomy: Yes - GENITOURINARY/GYNECOLOGICAL Hx Genitourinary Disorders: Yes Hx Prostate Problems: Yes (BPH) - PSYCHIATRIC Hx Emotional Abuse: No Hx Physical Abuse: No - SURGICAL HISTORY Other/Comment: Colostomy - ANESTHESIA Hx Anesthesia Reactions: No Hx Malignant Hyperthermia: No Meds Allergies/Adverse Reactions: Allergies Allergy/AdvReac Type Severity Reaction Status Date / Time No Known Allergies Allergy Verified 11/16/16 07:43 - Medications Medications: Current Medications Acetylcysteine (Acetylcysteine 20%) 4 ml IH [id number] ANTHONY Albuterol/Ipratropium (Duoneb 3 Mg/0.5 Mg (3 Ml) Ud) 3 ml IH [id number] [facility] Aspirin (Ecotrin) 81 mg PO DAILY [facility] Last Admin: 11/16/16 12:58 Dose: Not Given Atorvastatin Calcium (Lipitor) 10 mg PO DAILY [facility] Last Admin: 11/16/16 13:01 Dose: 10 mg Carvedilol (Coreg) 12.5 mg PO BID [facility] Last Admin: 11/16/16 18:36 Dose: 12.5 mg Doxycycline Hyclate (Doryx) 100 mg PO Q12 [facility] PRN Reason: Protocol Ferrous Sulfate (Feosol) 324 mg PO BID [facility] Last Admin: 11/16/16 18:35 Dose: 324 mg Meropenem 500 mg/ Sodium (Chloride) 100 mls @ 100 mls/hr IVPB Q12 [facility] PRN Reason: Protocol Stop: 11/23/16 22:01 Methylprednisolone (Solu-Medrol) 40 mg IVP Q12 [facility] Multivitamins (Thera Tab) 1 tab PO DAILY [facility] Last Admin: 11/16/16 14:31 Dose: 1 tab Non-Formulary Medication (Sacubitril/Valsartan [Entresto 24 Mg-26 Mg Tablet]) 1 tab PO BID [facility] Last Admin: 11/16/16 18:49 Dose: Not Given Dutasteride 0.5mg 1 cap PO DAILY [facility] Pantoprazole Sodium (Protonix Ec Tab) 40 mg PO DAILY [facility] Last Admin: 11/16/16 13:01 Dose: 40 mg Warfarin Sodium (Coumadin) 2 mg PO DAILY [facility] PRN Reason: Protocol Stop: 11/19/16 08:00 Last Admin: 11/16/16 14:31 Dose: 2 mg Physical Exam - Constitutional Appears: Non-toxic, No Acute Distress - Head Exam Head Exam: NORMAL INSPECTION - ENT Exam ENT Exam: Mucous Membranes Moist - Neck Exam Neck exam: Negative for: Lymphadenopathy, Meningismus - Respiratory Exam Respiratory Exam: Decreased Breath Sounds - Cardiovascular Exam Cardiovascular Exam: +S1, +S2 - GI/Abdominal Exam GI & Abdominal Exam: Soft. absent: Tenderness Results - Vital Signs Recent Vital Signs: Last Vital Signs Temp 98.4 F 11/16/16 16:35 Pulse 80 11/16/16 18:36 Resp 18 11/16/16 16:35 BP 126/72 11/16/16 18:36 Pulse Ox 98 11/16/16 16:00 - Labs Result Diagrams: 11/17/16 06:45 11/17/16 06:45 Labs: Laboratory Results - last 24 hr 11/16/16 11:00 Urine Color Yellow Urine Appearance Sl cloudy Urine pH 6.0 Ur Specific [place] 1.025 Urine Protein >=300 H Urine Glucose (UA) Negative Urine Ketones Negative Urine Blood Large H Urine Nitrate Negative Urine Bilirubin Negative Urine Urobilinogen 0.2 Ur Leukocyte Esterase Large H Urine RBC 1 - 3 Urine WBC Tntc Urine Bacteria Many Assessment & Plan - Assessment and Plan (Free Text) Plan: Assessment Consider UTI with gram negative bacilli history of ESBL-producing Klebsiella bacteremia, consider secondary to the port S/P removal S/P treatment for healthcare-associated pneumonia history of C diff associated diarrhea history of UTI with yeast history healthcare-associated pneumonia Severe cardiomyopathy with EF 10-15 % paroxysmal atrial fibrillation Coronary artery disease S/P stenting history of aortic aneurysm history of SVT S/P AICD placement S/P procedure on his prostate in 2012 S/P partial colectomy and colostomy Plan started Merrem pending identification and sensitivities of the gram negative bacilli in the urine Will monitor clinically
--- NOTE | 2016-11-17 19:01 | CON ---
DATE: 11/17/2016 LOCATION: The patient is in room 376, bed 1. REASON FOR CONSULTATION AND FOLLOWUP: Episode of sweating, weakness and nausea. HISTORY OF PRESENT ILLNESS: A 71-year-old male, known case of coronary artery disease, status post P TCA, decreased LV function, ejection fraction 15%, diabetes, hypertension, hyperlipidemia, status pos t automatic implantable cardioverter-defibrillator insertion, atrial fibrillation which is paroxysmal type, who has been on anticoagulation, cardiomyopathy. The patient also had endovascular stent and colostomy, was admitted with nausea, weakness and diaphoresis. The patient recently found to have ca rcinoma of the lung for which he has been getting radiation therapy. The patient now is asymptomatic , lying flat in bed without any respiratory distress, chest pain or palpitation. PAST MEDICAL HISTORY: Positive for cardiomyopathy, coronary artery disease, status post AICD inserti on, multiple admissions with decompensated congestive heart failure, was on home Primacor recently be cause of refusal from the insurance. The patient had paroxysmal atrial fibrillation, history of endo vascular stent, on anticoagulation. The patient recently found to have carcinoma of the lung for whi ch he is getting radiation therapy. Last echo showed 4-chamber dilatation, ejection fraction about 1 5%, status post colostomy for colon cancer. PAST SURGICAL HISTORY: Significant for right hemicolectomy, colostomy, history of bowel resection, h istory of endovascular stent for abdominal aortic aneurysm, status post AICD insertion. Most recent cardiac workup showed a history of echo. Most recent SERGO was done that showed dilated left atrium, d ilated LV ejection fraction of 15%, severe mitral regurg, mild aortic regurg, mild tricuspid regurgit ation, complex plaque in descending aorta, AICD leads in RA, RV. No vegetation was seen. HOME MEDICATIONS: The patient was on furosemide 40 mg daily, Protonix 40 daily, insulin glargine 14 units subQ at bedtime, insulin lispro, Zestril 24 mg/26 mg tablet 1 tablet b.i.d., Coumadin 1 mg zan y, Lipitor 10 mg daily, ferrous sulfate 325 mg b.i.d. PERSONAL HISTORY: The patient is an ex-smoker. Denies drinking. REVIEW OF SYSTEMS: All the systems were reviewed, positives mentioned in the history, others were ne gative. PHYSICAL EXAMINATION: VITAL SIGNS: Blood pressure 123/76, respirations 18, pulse 71, temperature 98.1. HEENT: Head is normocephalic. Eyes: Pupils normal. Conjunctivae are slightly pale. NECK: JVP low. Carotids equal. THORAX: AP diameter normal. LUNGS: Clear. CARDIOVASCULAR: S1, S2. Systolic murmur. ABDOMEN: Colostomy. EXTREMITIES: No clubbing, no cyanosis. LABORATORY DATA: WBC 3.1, hemoglobin 11.6, hematocrit 35.3, platelet 241. Sodium 134, potassium 5.2 , BUN 43, creatinine 2.2. Yesterday, potassium was 4.5. AST, ALT normal. NT proB natriuretic pep 5 130. Total protein and albumin normal. EKG showed sinus rhythm with occasional premature ventricula r complexes, nonspecific intraventricular conduction delay and nonspecific ST-T changes. Chest x-ray showed a mass in the left upper lobe with lingula as on previous x-rays. Troponin has been also 0.0 2, which is normal. DIAGNOSES: Episode of weakness, diaphoresis, nausea, no evidence of myocardial infarction so far, co ronary artery disease, history of stent insertion, cardiomyopathy, ejection fraction 15%, status post automatic implantable cardioverter-defibrillator insertion, severe mitral regurg, mild tricuspid reg urg, mild aortic regurg, endovascular stent for abdominal aortic aneurysm, history of hemicolectomy a nd colostomy, paroxysmal atrial fibrillation, recent history of carcinoma of the lung, getting radiat ion therapy. PLAN: The patient is getting carvedilol 12.5 mg b.i.d., warfarin 2 mg daily, ____ 100 mg q. 12 hours , aspirin 81 mg daily, ferrous sulfate 324 mg b.i.d., Lipitor 10 mg daily, Merrem IV 500 mg q. 12 echo rs, Protonix 40 p.o. daily, Solu-Medrol 40 q. 12 hours. The patient had short run of multiple PACs _ ___ conduction, rate around 140-150 per minute. The patient also has ____ . We will increase the ca rvedilol to 25 mg p.o. b.i.d. and will repeat labs in the morning. We will follow with you. Arabella Lopez MD cc: [phone] TT: 11/17/2016 19:00:22 Confirmation # [id number] Dictation # [id number] rn
[2016-11-17] MEDS ORDERED: Insulin Lispro (humaLOG) MEDIUM Coverage SC STA (19:52)
[2016-11-17] MEDS ORDERED: Insulin Detemir 100 units/ml Vial (Levemir) SC STA (19:53)
--- NOTE | 2016-11-17 21:17 | CP.PCM.PN ---
Subjective - Date & Time of Evaluation Date of Evaluation: 11/17/16 Time of Evaluation: 21:13 - Subjective Subjective: Patient was seen for chest pain, across chest, sharp pain, no other complaints, pulse ox was 98% 2/Lmin , BP was 171/124 HR was 133/min, This 71 year old male was admitted with nausea, diaphoresis, elevated blood pressure. Has PMH of CAD, DM, S/P stent placement , EF 15%, CMP, AICD insertion, bpwel resection , hemicolectomy, history of endovascular stent for AAA,atrial fibrillation, dementia,hx SERGO,Lung cancer -adenocarcinoma of left lung,Hx SVT. EKG, SL NTG 0.3 q5 min prn cp, Lopressor 5 mg IV were ordered. Patient felt relief in the pain after 2nd NTG. BP went down to 120/82, HR went down to 107/min. Objective - Vital Signs/Intake and Output Vital Signs (last 24 hours): Temp Pulse Resp BP Pulse Ox 97.6 F 80 20 130/78 97 11/17/16 16:00 11/17/16 19:07 11/17/16 16:00 11/17/16 19:07 11/17/16 16:00 Intake and Output: 11/17/16 11/18/16 18:59 06:59 Intake Total 840 Output Total 300 Balance 540 - Medications Medications: Current Medications Acetylcysteine (Acetylcysteine 20%) 4 ml IH [id number] [facility] Last Admin: 11/17/16 19:37 Dose: 4 ml Albuterol/Ipratropium (Duoneb 3 Mg/0.5 Mg (3 Ml) Ud) 3 ml IH [id number] [facility] Last Admin: 11/17/16 19:36 Dose: 3 ml Aspirin (Ecotrin) 81 mg PO DAILY [facility] Last Admin: 11/17/16 10:34 Dose: 81 mg Atorvastatin Calcium (Lipitor) 10 mg PO DAILY [facility] Last Admin: 11/17/16 10:35 Dose: 10 mg Carvedilol (Coreg) 25 mg PO BID [facility] Last Admin: 11/17/16 19:07 Dose: 25 mg Doxycycline Hyclate (Doryx) 100 mg PO Q12 [facility] PRN Reason: Protocol Last Admin: 11/17/16 10:34 Dose: 100 mg Ferrous Sulfate (Feosol) 324 mg PO BID [facility] Last Admin: 11/17/16 19:07 Dose: 324 mg Meropenem 500 mg/ Sodium (Chloride) 100 mls @ 100 mls/hr IVPB Q12 [facility] PRN Reason: Protocol Stop: 11/23/16 22:01 Last Admin: 11/17/16 10:35 Dose: 100 mls/hr Insulin Detemir (Levemir) 20 unit SC Q12 [facility] Insulin Human Lispro (Humalog Med) 0 units SC ACHS [facility] PRN Reason: Protocol Last Admin: 11/17/16 17:42 Dose: 10 units Methylprednisolone (Solu-Medrol) 40 mg IVP Q12 [facility] Last Admin: 11/17/16 10:35 Dose: 40 mg Multivitamins (Thera Tab) 1 tab PO DAILY [facility] Last Admin: 11/17/16 10:35 Dose: 1 tab Non-Formulary Medication (Sacubitril/Valsartan [Entresto 24 Mg-26 Mg Tablet]) 1 tab PO BID [facility] Last Admin: 11/17/16 19:06 Dose: Not Given Dutasteride 0.5mg 1 cap PO DAILY [facility] Last Admin: 11/17/16 10:34 Dose: 1 cap Pantoprazole Sodium (Protonix Ec Tab) 40 mg PO DAILY [facility] Last Admin: 11/17/16 10:35 Dose: 40 mg Warfarin Sodium (Coumadin) 2 mg PO DAILY [facility] PRN Reason: Protocol Stop: 11/19/16 08:00 Last Admin: 11/17/16 10:34 Dose: 2 mg - Labs Labs: PT 22.5 Seconds (9.9-11.8) H 11/16/16 08:00 INR 2.08 (0.93-1.08) H 11/16/16 08:00 APTT 41.2 Seconds (23.7-30.8) H 11/16/16 08:00 - Constitutional Appears: Well - Head Exam Head Exam: ATRAUMATIC, NORMAL INSPECTION, NORMOCEPHALIC - Eye Exam Eye Exam: Normal appearance - ENT Exam ENT Exam: Normal External Ear Exam - Neck Exam Neck Exam: Normal Inspection - Respiratory Exam Respiratory Exam: Clear to Ausculation Bilateral, NORMAL BREATHING PATTERN - Cardiovascular Exam Cardiovascular Exam: REGULAR RHYTHM. absent: JVD - GI/Abdominal Exam GI & Abdominal Exam: absent: Distended - Rectal Exam Rectal Exam: Deferred - Extremities Exam Extremities Exam: Normal Inspection - Back Exam Back Exam: NORMAL INSPECTION - Neurological Exam Neurological Exam: Alert - Psychiatric Exam Psychiatric exam: Normal Affect, Normal Mood - Skin Skin Exam: Normal Color Assessment and Plan - Assessment and Plan (Free Text) Assessment: A/P:Chest pain. Uncontrolled HTN. Sinus tachycardia. ROWENA. CAD,S/P stent. CMP. EF 15% EKG-------------> Sinus tachycardia, Inferior ischemia. Troponin. EKG ,trop in the morning. Lopressor 5 mg IV was administered by me.
[2016-11-17] MEDS ORDERED: Metoprolol 1 mg/ml Inj IVP ONE (21:42)
[2016-11-17] MEDS ORDERED: Insulin Detemir 100 units/ml Vial (Levemir) SC SCH (22:00)
[2016-11-18] MEDS: Acetylcysteine 20% Inhal Soln (4ml) IH SCH ×4 (02:28→20:10)
[2016-11-18] MEDS: Albuterol-Ipratrop 3 mg / 0.5 (3 ml) UD IH SCH ×4 (02:28→20:10)
[2016-11-18 07:52] LABS: INR 3.1 (0.93-1.08)
[2016-11-18] MEDS: Insulin Lispro (humaLOG) MEDIUM Coverage SC SCH ×4 (08:01→22:20)
[2016-11-18 08:04] LABS: ALB/GLOB RATIO 0.8 (1.1-1.8); BILIRUBIN,TOTAL 0.5 mg/dL (0.2-1.3); CALCIUM 8.4 mg/dL (8.4-10.5); MAGNESIUM 1.8 mg/dL (1.7-2.2); PHOSPHOROUS 4.5 mg/dL (2.5-4.5); POTASSIUM 5.2 mmol/L (3.6-5.0); TOTAL PROTEIN 7.3 g/dL (5.8-8.3)
[2016-11-18 08:08] LABS: TROPONIN I 0.05 ng/mL
--- NOTE | 2016-11-18 08:44 | PN ---
DATE: 11/17/2016 SUBJECTIVE: The patient was seen on 11/17/2016. The patient is comfortable. He denied any fever, any chills, no nausea, no vomiting. Culture urine came back gram-negative and currently on IV meropenem . PHYSICAL EXAMINATION: VITAL SIGNS: Temperature 98, heart rate 86, respiration 17, blood pressure is 123/76, saturation 97% . HEAD AND NECK: Normal. No JVD, no thyromegaly. CHEST: Clear, good air entry. CARDIAC: First sound, second sound normal. Systolic murmur on the precordium. ABDOMEN: Soft. Colostomy bag. EXTREMITIES: No edema. NEUROLOGIC: Right hemiplegia. LABORATORY DATA: On 11/17 is as follows: White count 3.1, hemoglobin 11.6, hematocrit 35.3, platelets 241. Chemistry showed blood sugar in the 400s. Sodium 134, potassium 5.2, chloride 104, bicarb 18, BUN 43, creatinine 2.2, blood sugar 254. IMPRESSION AND PLAN: 1. Gram-negative urinary tract infection, history of extended-spectrum beta-lactamase, resistant org anism. Currently on meropenem. We will await the urine culture and sensitivity before making decisi on on antibiotic course. 2. Uncontrolled diabetes. We will start insulin, insulin coverage. We will give him 10 units x 2 t o control his sugar if needed and start him on Levemir. We will continue to monitor his sugars on a daily basis. 3. Hypertension, chronic renal insufficiency, hypercholesterolemia, coronary artery disease, ischemi c cardiomyopathy, chronic atrial fibrillation, lung cancer. Continue current treatment. Continue ra diation. Continue Coumadin. We will monitor his labs and we will follow up clinically. Dexter Palacios MD cc: [phone] TT: 11/18/2016 08:43:52 Confirmation # [id number] Dictation # [id number]
[2016-11-18] MEDS: DUTASTERIDE 0.5 MG PO SCH (10:02)
[2016-11-18] MEDS: Insulin Detemir 100 units/ml Vial (Levemir) SC SCH ×2 (10:03→22:22)
[2016-11-18] MEDS: Meropenem 500 MG in Sodium Chloride 0.9% 100 ML IVPB SCH ×2 (10:03→22:23)
[2016-11-18] MEDS: Pantoprazole 40 mg EC Tab PO SCH (10:04)
[2016-11-18] MEDS: VALSARTAN PO SCH ×2 (10:05→17:14)
[2016-11-18] MEDS: MethylPREDNISolone 40 mg Vial IVP SCH (10:05)
[2016-11-18] MEDS: SACUBITRIL PO SCH ×2 (10:05→17:14)
[2016-11-18] MEDS: Multivitamin Therapeutic Tab PO SCH (10:07)
[2016-11-18] MEDS ORDERED: MethylPREDNISolone 40 mg Vial IVP SCH (11:10)
--- NOTE | 2016-11-18 11:44 | PN ---
DATE: 11/18/2016 REFERRING PHYSICIAN: Dr. Palacios. SUBJECTIVE: He is lying in the bed, head at 45 degree. and daughter at bedside. Night was rem arkable for an episode of increasing blood pressure, choking and shortness of breath. This morning, he feels fine. Mild cough. No nausea, no vomiting, diarrhea. No leg pain or leg swelling. OBJECTIVE: GENERAL: No acute distress. VITAL SIGNS: Temp is 98, heart rate is 76, respiratory rate is 20, blood pressure 128/75 and pulse o x 97% on room air. HEENT: Moist mucous membrane. Crowded airway. Mallampati score is 4. NECK: Supple. No JVD. LUNGS: Have a fair airflow with a few rhonchi. HEART: S1 and S2. ABDOMEN: Soft, nontender. No organomegaly. EXTREMITIES: There is ____ edema. NEUROLOGIC: Awake, alert, follows simple commands. MEDICATIONS: He is on Mucomyst 20% inhaled q. 6 hours, Coreg 25 mg twice a day, Coumadin 2 mg given last night, doxycycline 100 mg twice a day, DuoNeb q. 6 hours, dutasteride 0.5 mg daily, Ecotrin 81 m g daily, ferrous sulfate 325 mg twice a day, insulin coverage, Levemir is 20 units subQ q. 12 hours, Lipitor 10 mg p.o. daily, meropenem 500 mg q. 12 hours, Protonix 40 mg daily, Solu-Medrol is at 40 mg q. 12 hours, multivitamins daily. LABORATORY DATA: Reviewed. INR 3.10. Sodium 131, potassium 5.2, chloride 104, bicarbonate 18, BUN 50, creatinine 0.2, glucose 318, calcium 8.4, magnesium 1.8, AST 27, ALT 30, alk phos is 110. Albumi n is 3.2. Troponin is 0.05. Urine gram-negative avis. Blood culture has been negative. 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 I spoke to the patient's and daughter at bedside. All their questions answered. We will recommend outpatient split sleep study w ith half apnea, half CPAP. For now, decrease Solu-Medrol to 20 q. 12 hours. Continue inhaled bronch odilator. Gastric prophylaxis, anticoagulation, aspiration precaution. Thank you and we will follow with you. Arabella Alva MD cc: [phone] TT: 11/18/2016 11:44:38 Confirmation # [id number] Dictation # [id number] tn
--- NOTE | 2016-11-18 12:11 | CARD ---
APPROVED REPORT EKG Measurement Heart [id number] <Conclusion> Normal sinus rhythm Rightward axis Nonspecific T wave abnormality Prolonged QT Abnormal ECG
--- NOTE | 2016-11-18 12:18 | CARD ---
APPROVED REPORT EKG Measurement Heart [id number] <Conclusion> Sinus tachycardia Rightward axis Incomplete left bundle branch block ST & T wave abnormality, consider inferior ischemia Abnormal ECG
--- NOTE | 2016-11-18 12:47 | PN ---
DATE: 11/18/2016 The patient is in room 376, bed 1. REASON FOR CONSULTATION AND FOLLOWUP: Episode of sweating, weakness and nausea. HISTORY OF PRESENT ILLNESS: A 71-year-old male, known case of coronary artery disease, status post P TCA, decreased LV function, ejection fraction 15%, diabetes, hypertension, hyperlipidemia, status pos t AICD, atrial fibrillation, paroxysmal type, was admitted with episode of sweating and weakness and nausea. The patient was feeling better until last night when he had 1 episode of sharp lower left ch est pain and during pain, his blood pressure was elevated and he also had sinus tachycardia. Now, trinh painting is pain free, lying flat in bed without chest pain, shortness of breath, palpitation. EKG done during the chest pain showed sinus tachycardia, otherwise no new ST-T changes. The patient now at [facility] is symptom free. PHYSICAL EXAMINATION: VITAL SIGNS: Blood pressure is 128/75, respirations 20, pulse 82, temperature 97.6. HEAD: Normocephalic. EYES: Pupils normal. Conjunctivae slightly pale. NECK: JVP low. Carotid equal. THORAX: AP diameter normal. LUNGS: Clear. CARDIOVASCULAR: S1, S2. ABDOMEN: Has a colostomy. EXTREMITIES: No clubbing, no cyanosis. LABORATORIES: WBC 3.1, hemoglobin 11.6, hematocrit 35.3, platelet count 241. Sodium 131, potassium 5.2, BUN 50, creatinine 2.2. Troponin 0.05, which is not significant. Total protein, albumin normal . Sugar random 376. DIAGNOSES: Episode of weakness and diaphoresis with nausea at home. No evidence of myocardial infar ction. Last night, patient had atypical chest pain. Now, he is pain free. Coronary artery disease, history of stent insertion, cardiomyopathy, ejection fraction 15%, status post automatic implantable cardioverter-defibrillator insertion, paroxysmal atrial fibrillation, severe mitral regurgitation, m ild tricuspid regurgitation, mild aortic regurgitation, endovascular stent for abdominal aortic aneur ysm, history of hemicolectomy and colostomy, recently found to have carcinoma of the lung, for which he is getting radiation therapy. PLAN: I increased his carvedilol to 25 b.i.d. yesterday, which will help with sinus tachycardia and blood pressure. He was taking 12.5 b.i.d. before. Continue aspirin, ferrous sulfate, insulin, atorv astatin 10 mg daily, Protonix 40 daily, Solu-Medrol 20 IV q. 12 hours. The patient's prothrombin rory e 33.5, INR 3.10. The patient was at home taking warfarin 1 mg daily. Today's PT/INR is elevated. We will repeat PT/INR in the morning. Insulin as ordered. We will follow with you. Arabella Lopez MD cc: [id number] TT: 11/18/2016 12:46:43 Confirmation # [id number] Dictation # [id number] en
[2016-11-18 13:15] LABS: TROPONIN I 0.04 ng/mL
--- NOTE | 2016-11-18 15:39 | PN ---
DATE: 11/18/2016 The patient is in bed, in no acute distress, nontoxic. PHYSICAL EXAMINATION: VITAL SIGNS: Temperature is 97, blood pressure is 120/70, respiratory rate of 16. HEENT: Unremarkable. NECK: Supple. LUNGS: Have decreased breath sounds. HEART: Normal S1, S2. ABDOMEN: Soft, nontender. LABORATORY EXAMINATION: Reveals the BUN of 50, creatinine of 2.2. Urinalysis is noted. Microbiolog y reveals Klebsiella in the urine. The blood cultures are negative. ESBL in the Klebsiella is negat adán. Review of orders reveals the patient to be on p.o. doxycycline and meropenem, prednisone. ASSESSMENT AND PLAN: A 71-year-old with Klebsiella urinary tract infection which is a multi-resistan t organism in this patient with positive WBCs in the urine. We will give a short course of meropenem . Dr. Palacios's note is reviewed. Although the patient's Klebsiella pneumoniae in the urine is exten ded-spectrum beta-lactamase negative, it is resistant to cefepime, it is resistant to piperacillin, t azobactam, no meropenem sensitivity is done at [facility] and it is a multidrug resistant organism, extended-spectrum beta-lactamase negative. Walt Conner MD cc: 350 TT: 11/18/2016 15:39:34 Confirmation # [id number] Dictation # [id number] en
[2016-11-19] MEDS: Albuterol-Ipratrop 3 mg / 0.5 (3 ml) UD IH SCH ×4 (01:34→20:35)
[2016-11-19] MEDS: Acetylcysteine 20% Inhal Soln (4ml) IH SCH ×4 (01:34→20:35)
[2016-11-19 07:17] LABS: MEAN CELL VOLUME 77.3 fL (80.0-105.0); MEAN CORPUSCULAR HEMOGLOBIN 25.6 pg (25.0-35.0); MEAN CORPUSCULAR HGB CONC 33.1 g/dl (31.0-37.0); MEAN PLATELET VOLUME 10.3 fl (7.0-11.0); RED CELL DISTRIBUTION WIDTH 16.6 % (11.5-14.5); WHITE BLOOD COUNT 7.4 10^3/ul (4.5-11.0)
[2016-11-19 07:40] LABS: INR 3.56 (0.93-1.08)
[2016-11-19 07:43] LABS: ALB/GLOB RATIO 0.8 (1.1-1.8); BILIRUBIN,TOTAL 0.4 mg/dL (0.2-1.3); CALCIUM 8.4 mg/dL (8.4-10.5); POTASSIUM 5.3 mmol/L (3.6-5.0); TOTAL PROTEIN 7.1 g/dL (5.8-8.3)
[2016-11-19] MEDS: Insulin Lispro (humaLOG) MEDIUM Coverage SC SCH ×4 (08:14→23:11)
[2016-11-19] MEDS: Insulin Detemir 100 units/ml Vial (Levemir) SC SCH ×2 (09:14→23:12)
[2016-11-19] MEDS: DUTASTERIDE 0.5 MG PO SCH (09:14)
[2016-11-19] MEDS: Meropenem 500 MG in Sodium Chloride 0.9% 100 ML IVPB SCH (09:15)
[2016-11-19] MEDS: Pantoprazole 40 mg EC Tab PO SCH (09:18)
[2016-11-19] MEDS: VALSARTAN PO SCH ×2 (09:18→17:11)
[2016-11-19] MEDS: Multivitamin Therapeutic Tab PO SCH (09:18)
[2016-11-19] MEDS: SACUBITRIL PO SCH ×2 (09:18→17:11)
--- NOTE | 2016-11-19 09:34 | PN ---
DATE: 11/19/2016 REFERRING PHYSICIAN: Dr. Palacios SUBJECTIVE: The patient is lying in the bed, head at 35 degrees. Night was unremarkable. Part of t he night, used CPAP. No nausea, no vomiting, no diarrhea. No leg pain or leg swelling. OBJECTIVE: GENERAL: No acute distress. VITAL SIGNS: Temp is 98, heart rate is 76, respiratory rate is 22, blood pressure 132/86, pulse ox 9 7% on room air. HEENT: Moist mucous membrane. Crowded airway. NECK: Supple, no JVD. LUNGS: Have a fair airflow with a few rhonchi. HEART: S1 and S2. ABDOMEN: Soft, nontender. No organomegaly. EXTREMITIES: There is no edema. NEUROLOGIC: Awake, alert, follows simple commands. MEDICATIONS: He is on Mucomyst 20% inhaled q. 6 hours, Coreg 25 mg twice a day, doxycycline 100 mg t wice a day, dutasteride 0.5 mg daily, Ecotrin 81 mg daily, ferrous sulfate 324 mg twice a day, insuli n coverage, Levemir 20 units subQ q. 12 hours, Lipitor 10 mg daily, meropenem 500 mg q. 12 hours, Pro tonix 40 mg daily, Solu-Medrol 20 mg q. 12 hours, multivitamins daily. LABORATORY DATA: Shows hemoglobin 10.6, hematocrit 32.7, WBC 7.4, platelet is 257. Today's INR 3.56 . Sodium 132, potassium 5.3, chloride 106, bicarbonate 18, BUN 61, creatinine 2.2, glucose 269, calc ium 8.4, AST 25, ALT 31, alk phos is 112. Albumin is 3.1. Urine culture has Klebsiella pneumoniae. Blood cultures have been negative. 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 Will continue BiPAP while sleeping. Discontinue Solu-Medrol. Start prednisone tapered dose. Hold Coumadin. INR in the morni ng. Gastric prophylaxis. Out of bed to chair if possible. Thank you and we will follow with you. Arabella Alva MD cc: 336 TT: 11/19/2016 09:34:03 Confirmation # [id number] Dictation # [id number] en
--- NOTE | 2016-11-19 10:20 | PN ---
DATE: 11/18/2016 The patient is stable. No fever, no nausea, no vomiting. He did have chest pain overnight and seen by house doctor. Troponin is slightly elevated. The patient also seen by inclusion internship in the [facility]. Currently, he has no chest pain, no difficulty breathing. PHYSICAL EXAMINATION: VITAL SIGNS: Temperature 97.4, heart rate 76, blood pressure 140/88, respirations 20, saturation 97% . HEAD AND NECK: Normal. No JVD. No thyromegaly. CHEST: Clear, good entry. CARDIAC: First and second sounds are normal. There is a systolic ejection murmur. ABDOMEN: Soft, nontender. There is colostomy bag on the right side. LOWER EXTREMITIES: No edema. NEUROLOGIC: Right side weakness. LABORATORY DATA: Noted for slight elevation of troponin. It went up to 0.05. It went up from befor e. Also, patient does have sodium 131, potassium 5.2, chloride 104, bicarbonate 18, BUN 50, creatini ne 2.2, blood sugar is 318. Liver function test is normal. IMPRESSION AND PLAN: 1. Chest pain. We will get cardiology consult, Dr. Lopez, to evaluate. Repeat troponin again. Wi ll follow his recommendations. 2. Gram-negative urinary tract infection. Cultures and sensitivity still pending. Continue meropen em now IV, as per ID consultation. 3. Chronic obstructive pulmonary disease exacerbation. Continue steroids. Continue inhaled broncho dilators. 4. Diabetes, uncontrolled, with increasing Levemir and continue insulin coverage. Will follow up cl inically. 5. The patient does have lung cancer, chronic obstructive pulmonary disease. Will continue bronchod ilators and inhalers. Continue Mucomyst. 6. Ischemic cardiomyopathy associated with chest pain. Repeat troponin. Continue Coreg, beta block ers. 7. History of deep venous thrombosis, hypercoagulable state, chronic atrial fibrillation. Continue Coumadin 2 mg daily. Dexter Palacios MD cc: 223 TT: 11/19/2016 10:19:47 Confirmation # [id number] Dictation # [id number] aimee
--- NOTE | 2016-11-19 10:34 | PN ---
DATE: 11/19/2016 The patient is in bed in no acute distress, nontoxic. PHYSICAL EXAMINATION: VITAL SIGNS: Temperature is 97, blood pressure is 112/70, respiratory rate 16. HEENT: Unremarkable. NECK: Supple. LUNGS: Decreased breath sounds. HEART: Normal S1, S2. ABDOMEN: Soft, nontender. LABORATORY EXAMINATION: Reveals a white count of 7.4, hemoglobin of 10. BUN of 61, creatinine of 2. 2. Urinalysis is noted and microbiology reveals Klebsiella pneumoniae in the urine. Sensitivity is reviewed, waiting for ____ culture, ____ sensitivity. Currently, the patient is on meropenem and dox ycycline and prednisone. ASSESSMENT AND PLAN: This is a 71-year-old male with Klebsiella urinary tract infection, multidrug r esistant Klebsiella in the urine, awaiting for sensitivity. It is not extended spectrum beta-lactama se. Currently on meropenem and doxycycline. We will follow with you. Walt Conner MD cc: 350 TT: 11/19/2016 10:34:09 Confirmation # [id number] Dictation # [id number] tn
[2016-11-19] MEDS ORDERED: Sod Polystyrene Sulf 15 gm/60 ml Oral Susp PO ONE ×2 (10:57→15:49)
--- NOTE | 2016-11-19 12:21 | PN ---
DATE: 11/19/2016 LOCATION: Room 375, bed 1. REASON FOR CONSULTATION AND FOLLOWUP: Episode of sweating, weakness and nausea. HISTORY OF PRESENT ILLNESS: The patient is a 71-year-old male, known case of coronary artery disease status post PTCA, decreased LV function, ejection fraction 15%, cardiomyopathy, diabetes, hypertensi on, hyperlipidemia, status post AICD, atrial fibrillation, paroxysmal type, status post colostomy, wa s admitted with weakness and nausea. The patient now asymptomatic, lying flat in bed without chest p ain, shortness of breath, or palpitation. PHYSICAL EXAMINATION: VITAL SIGNS: Blood pressure is 132/86, pulse 79, temperature 97.5. HEAD: Normocephalic. EYES: Pupils normal. Conjunctivae slightly pale. NECK: JVP low. Carotid equal. THORAX: AP diameter normal. LUNGS: Clear. CARDIOVASCULAR: S1, S2. ABDOMEN: Soft, colostomy. EXTREMITIES: No clubbing, no cyanosis. LABORATORY DATA: WBC 7.4, hemoglobin 10.6, hematocrit 32.0, platelets 257. Sodium 132, potassium 5. 3, BUN 61, creatinine 2.2, sugar 286. AST, ALT, protein, and albumin normal, prothrombin time is 38. 4 with INR of 3.6. DIAGNOSES: Episode of weakness, diaphoresis, with nausea at home. No evidence of myocardial infarct ion, cardiomyopathy, coronary artery disease, status post stents, automatic implantable cardioverter defibrillator insertion, severe mitral regurg, mild tricuspid regurg, mild aortic regurg, endovascula r stent for abdominal aortic aneurysm, history of hemicolectomy with colostomy, recently found to hav e carcinoma of the lung for which he is getting radiation therapy, hypertension, hyperlipidemia, paro xysmal atrial fibrillation, increased prothrombin time. PLAN: Coumadin already on hold. We will repeat prothrombin time in the morning. In the meantime, t he patient will continue to get carvedilol, aspirin, ferrous sulfate, atorvastatin, Protonix, prednis one 20 mg daily, Lipitor 10 mg daily, also will give 1 dose of Kayexalate today to lower the potassiu m level and repeat prothrombin time in the a.m. and SMA-7 in a.m. We will follow with you. Arabella Lopez MD cc: 306 TT: 11/19/2016 12:21:06 Confirmation # [id number] Dictation # [id number] jn
--- NOTE | 2016-11-19 22:55 | PN ---
DATE: 11/19/2016 This is a 71-year-old male. He is comfortable. No chest pain, no short of breath, no respiratory di stress. The patient currently is still on IV antibiotics and being treated for Klebsiella pneumoniae on a urine culture. He wants to go home. PHYSICAL EXAMINATION: VITAL SIGNS: Temperature 98, heart rate 72, blood pressure is 157/94, respiration 18 and saturation 98% on room air. HEAD AND NECK: Normal. No JVD, no thyromegaly. CHEST: Clear, good entry. CARDIAC: First and second sounds are normal. ABDOMEN: Soft, nontender. EXTREMITIES: No edema. NEUROLOGIC: Normal. LABORATORY DATA: White count 7.4, hemoglobin 10.6, hematocrit 32, platelets 257. Chemistry shows so dium 132, potassium 5.3, chloride 106, bicarbonate 18, BUN 61, creatinine 2.2, blood sugar is 269, ca lcium 8.4. Liver function test is normal. IMPRESSION: 1. Urinary tract infections. Continue current IV antibiotic as per infectious disease recommendatio ns. 2. Chronic renal insufficiency with mild hyperkalemia, stable. 3. Coronary artery disease, ischemic cardiomyopathy. Chest pain, resolved. Troponin is coming down. Continue current treatment. 4. Diabetes, insulin-dependent. The patient is stable. Blood sugar is coming down. Continue insul in coverage as it is. The patient is getting Levemir 20 units b.i.d. Continue current treatment. Will discuss with the other consultants and probably the patient will be discharged home and will follow up as an outpatient in the morning. CURRENT MEDICATIONS: The patient is getting Mucomyst, Coreg, doxycycline p.o., DuoNeb, Ecotrin, iron pills, Humalog, Levemir, Lipitor, prednisone switched to 20 mg p.o. daily and multivitamins and he i s getting . Continue current treatment. Dexter Palacios MD cc: 223 TT: 11/19/2016 22:55:09 Confirmation # [id number] Dictation # [id number] dn
[2016-11-20] MEDS: Albuterol-Ipratrop 3 mg / 0.5 (3 ml) UD IH SCH ×3 (01:20→14:08)
[2016-11-20] MEDS: Acetylcysteine 20% Inhal Soln (4ml) IH SCH ×3 (01:20→14:09)
[2016-11-20] MEDS: Insulin Lispro (humaLOG) MEDIUM Coverage SC SCH ×2 (08:08→12:30)
[2016-11-20 08:13] LABS: INR 3.48 (0.93-1.08)
[2016-11-20 08:14] LABS: CALCIUM 8.6 mg/dL (8.4-10.5); MAGNESIUM 1.9 mg/dL (1.7-2.2); PHOSPHOROUS 3.4 mg/dL (2.5-4.5); POTASSIUM 4.5 mmol/L (3.6-5.0)
[2016-11-20] MEDS: Pantoprazole 40 mg EC Tab PO SCH (09:09)
[2016-11-20] MEDS: DUTASTERIDE 0.5 MG PO SCH (09:11)
[2016-11-20] MEDS: SACUBITRIL PO SCH (09:11)
[2016-11-20] MEDS: VALSARTAN PO SCH (09:11)
[2016-11-20] MEDS: Multivitamin Therapeutic Tab PO SCH (09:14)
[2016-11-20] MEDS: Insulin Detemir 100 units/ml Vial (Levemir) SC SCH (09:14)
[2016-11-20 09:17] VITALS: BP 138/81
--- NOTE | 2016-11-20 11:17 | PN ---
DATE: 11/20/2016 SUBJECTIVE: The patient seen earlier this morning in room 375, bed 1. No fevers, no chills, no naus ea. PHYSICAL EXAMINATION: VITAL SIGNS: Temperature is 98, blood pressure is 150/70, respiratory rate of 18, heart rate of 72. HEENT: Unremarkable. NECK: Supple. LUNGS: Have decreased breath sounds. HEART: Normal S1, S2. ABDOMEN: Soft, nontender. LABORATORY EXAMINATION: Reveals a white count of 7.4, hemoglobin of 10, platelets of 257. BUN of 60 , creatinine of 2.0. Urinalysis is noted and WBCs. Microbiology reveals Klebsiella pneumoniae and t he urine culture has mckinley resistant, including meropenem resistant. Dr. Palacios's note from yesterday is reviewed. ASSESSMENT AND PLAN: This is a 71-year-old male with resistant Klebsiella urinary tract infection, m ultidrug resistant in the urine and resistant to meropenem. Currently now patient is afebrile, has b een afebrile throughout the hospitalization, and patient has a normal white count of 7.4. No further antibiotics indicated. Will discontinue the doxycycline also. Patient has had adequate antibiotics and most likely the urine colonizer at this point and would not treat this patient with an aminoglyc oside in this patient who has a creatinine of 2.0. No further antibiotics. Walt Conner MD cc: 350 TT: 11/20/2016 11:16:58 Confirmation # [id number] Dictation # [id number] dada
[2016-11-20 11:24] VITALS: PULSE 76; RESP 22; TEMP 98; O2SAT 98
--- NOTE | 2016-11-20 12:14 | PN ---
DATE: 11/20/2016 LOCATION: Room 375, bed 1. REASON FOR CONSULTATION AND FOLLOWUP: Episode of sweating, weakness and nausea. HISTORY OF PRESENT ILLNESS: The patient is a 71-year-old male, known case of coronary artery disease status post PTCA, decreased LV function, ejection fraction 15%, cardiomyopathy, diabetes, hypertension, hyperlipidemia, status post AICD, atrial fibrillation paroxysmal type, status post colostomy, was admitted with weakness, nausea which has relieved and patient is asymptomatic, lying flat in bed without any cardiac complaints. PHYSICAL EXAMINATION: VITAL SIGNS: Blood pressure 138/81, respirations 18, pulse 76, temperature 98. HEAD: Normocephalic. EYES: Pupils normal. Conjunctivae slightly pale. NECK: JVP low. Carotid equal. THORAX: AP diameter normal. LUNGS: Clear. CARDIOVASCULAR: S1, S2. ABDOMEN: Soft, nontender, no organomegaly. Bowel sounds normal. EXTREMITIES: No clubbing, no cyanosis. LABORATORY DATA: WBC 7.4, hemoglobin 10.6, hematocrit 32.0, platelet 257. Sodium 136, potassium 4.5, BUN 60, creatinine 2.0, random glucose 121, calcium 8.6, phosphorus 3.4, magnesium 1.9. DIAGNOSES: Episode of weakness and diaphoresis and nausea at home. No evidence of myocardial infarction, cardiomyopathy, coronary artery disease, status post stent insertion, automatic implantable cardioverter defibrillator insertion, paroxysmal atrial fibrillation, severe mitral regurg, mild tricuspid regurg, mild aortic regurg and endovascular stent for abdominal aortic aneurysm , history of hemicolectomy with the colostomy.Renal Dysfuction. Hyperkalaemia Improved. Plan. Clinically Cardiac Status Stable. Hyperkalaemia Corrected. Continue Present Therapy. Arabella Lopez MD cc: 306 TT: 11/20/2016 12:12:53 Confirmation # [id number] Dictation # [id number] jn MTDD
--- NOTE | 2016-11-20 16:18 | PN ---
DATE: 11/20/2016 REFERRING PHYSICIAN: Dr. Palacios. SUBJECTIVE: He is out of bed to chair, night was unremarkable, could not use CPAP, feels better, sti ll has mild cough. No nausea, no vomiting, no diarrhea. No leg pain or leg swelling. OBJECTIVE: GENERAL: No acute distress. VITAL SIGNS: Temp is 98, heart rate is 76, respiratory rate is 20, blood pressure 138/81, pulse ox 9 8% on room air. HEENT: Moist mucous membranes. Crowded airway. NECK: Supple, no JVD. LUNGS: Have a few scattered rhonchi. HEART: S1 and S2. ABDOMEN: Soft, nontender. No organomegaly. EXTREMITIES: He has trace edema. NEUROLOGIC: Awake, alert, follows simple commands. MEDICATIONS: He is on Mucomyst 20% inhaled q. 6 hours, Coreg 25 mg twice a day, DuoNeb q. 6 hours, d utasteride 0.5 mg daily, Ecotrin 81 mg daily, ferrous sulfate 324 mg twice a day, insulin coverage, L evemir 20 units subQ q. 12 hours, Lipitor 10 mg daily, prednisone 20 mg daily, Protonix 20 mg daily, valsartan 1 tab twice a day, multivitamins daily. LABORATORY DATA: Today's INR is 3.48. Sodium 136, potassium 4.5, chloride 109, bicarbonate 19, BUN 60, creatinine 2.0, glucose 121, calcium is 8.6, phosphorus 3.4, magnesium is 1.9. Urine culture had Klebsiella pneumoniae, blood cultures there is no growth. IMPRESSION AND PLAN: Chronic obstructive lung disease, has a poorly differentiated adenocarcinoma of the lungs, has been no radiation therapy, cardiomyopathy with atrial fibrillation, history of automa tic implantable cardioverter defibrillator, has a crowded airway, daytime sleepy and tired. I spoke to at bedside. He will benefit from split sleep study. May benefit from CPAP. Coumadin on hol d. INR in the morning. Decrease prednisone to 10 mg daily and taper off next 3 or 4 days. Thank yo u and will follow with you. Arabella Alva MD cc: 336 TT: 11/20/2016 16:17:42 Confirmation # [id number] Dictation # [id number] jn
--- NOTE | 2016-11-22 08:49 | DS ---
The patient was admitted with short of breath, COPD exacerbation, was given steroids, also had IV ant ibiotic meropenem, which lately switched to p.o. doxycycline. The patient has history of lung cancer , chronic renal failure, coronary artery disease, ischemic cardiomyopathy. His troponin stable. See n by groundman/lineman, ID consult, pulmonary consult. The patient is stable hemodynamically. He is off IV antibiotics. Got treated for IV antibiotic for the last few days and was discharged on p.o. doxyc ycline as per ID recommendations. The patient has no chest pain, no short of breath, hemodynamically stable. PHYSICAL EXAMINATION: VITAL SIGNS: On 11/20/2016, temperature 98, heart rate 76, blood pressure 138/81, respirations 22, s aturation 98%. HEAD AND NECK: Normal. No JVD. No thyromegaly. CHEST: Clear, good air entry. CARDIAC: First and second sounds normal. Systolic murmur. ABDOMEN: Soft. There is a colostomy. EXTREMITIES: No edema. NEUROLOGIC: Right hemiparesis. LABORATORY DATA: Shows INR is 3.48, which is elevated. DISCHARGE DIAGNOSES: 1. Urinary tract infection. 2. Possible pneumonia. 3. Lung cancer. 4. Coronary artery disease, ischemic cardiomyopathy, hypertension. 5. Cardiovascular accident, hypercholesterolemia, diabetes on insulin coverage. PLAN: To discharge the patient on p.o. doxycycline. Resume all his medication. Hold off on Coumadi n Tuesday, repeat PT/INR, and then we will, depending on that, resume Coumadin. Continue radia tion therapy for his lung CA, resume that Tuesday, and follow up in the office within a week. Dexter Palacios MD cc: 223 TT: 11/21/2016 23:00:12 levon
== END 2016-11-20 16:16 | disposition home or self-care (01) | DRG 190 ==
LOC: ED 07:32 → ERH 09:20 → 3RSO 15:02 → OBSVTOIN 11-17 10:33 → 3RSO 11-18 12:32
PROVIDERS: ADMIT Internal Medicine; ATTEND Internal Medicine
PROC: 3E0F7GC Introduction of Other Therapeutic Substance into Respiratory Tract, Via Natural or Artificial Opening (ICD-10-PCS; 2016-11-16)
PROC: DB021ZZ Beam Radiation of Lung using Photons 1 - 10 MeV (ICD-10-PCS; principal; 2016-11-17)
DX: J44.1 Chronic obstructive pulmonary disease with (acute) exacerbation (principal); J18.9 Pneumonia, unspecified organism; C34.92 Malignant neoplasm of unspecified part of left bronchus or lung; I13.0 Hypertensive heart and chronic kidney disease with heart failure and stage 1 through stage 4 chronic kidney disease, or unspecified chronic kidney disease; F03.90 Unspecified dementia, unspecified severity, without behavioral disturbance, psychotic disturbance, mood disturbance, and anxiety; E11.22 Type 2 diabetes mellitus with diabetic chronic kidney disease; E11.65 Type 2 diabetes mellitus with hyperglycemia; I50.9 Heart failure, unspecified; N39.0 Urinary tract infection, site not specified; D68.59 Other primary thrombophilia; E87.5 Hyperkalemia; B96.1 Klebsiella pneumoniae [K. pneumoniae] as the cause of diseases classified elsewhere; I48.0 Paroxysmal atrial fibrillation; I25.5 Ischemic cardiomyopathy; I25.10 Atherosclerotic heart disease of native coronary artery without angina pectoris; I16.0 Hypertensive urgency; E78.5 Hyperlipidemia, unspecified; N18.9 Chronic kidney disease, unspecified; R00.0 Tachycardia, unspecified; G47.33 Obstructive sleep apnea (adult) (pediatric); I48.2 Chronic atrial fibrillation; I08.3 Combined rheumatic disorders of mitral, aortic and tricuspid valves; J44.0 Chronic obstructive pulmonary disease with (acute) lower respiratory infection; E78.00 Pure hypercholesterolemia, unspecified; Z85.038 Personal history of other malignant neoplasm of large intestine; Z86.73 Personal history of transient ischemic attack (TIA), and cerebral infarction without residual deficits; Z79.4 Long term (current) use of insulin; Z95.810 Presence of automatic (implantable) cardiac defibrillator; Z79.01 Long term (current) use of anticoagulants; Z99.3 Dependence on wheelchair; Z74.01 Bed confinement status; Z93.3 Colostomy status; Z95.5 Presence of coronary angioplasty implant and graft; Z87.891 Personal history of nicotine dependence; Z87.440 Personal history of urinary (tract) infections; Z86.718 Personal history of other venous thrombosis and embolism

== ENCOUNTER 2017-01-14 20:30 | Inpatient (IN) | payer MEDICARE, MEDICAID ==
[2017-01-14 20:30] VITALS: PULSE 78
[2017-01-14 20:38] VITALS: BMI 22.0
[2017-01-14] MEDS ORDERED: Cefepime IV 2 gm in NS 2 GM/100 ML BAG IVPB STA (20:50)
--- NOTE | 2017-01-14 21:32 | ED PDOC ---
Arrival/HPI - General Chief Complaint: Male Genitourinary Time Seen by Provider: 01/14/17 20:44 Historian: Patient, Family - History of Present Illness Narrative History of Present Illness (Text): 01/14/17 21:33 A 71 year old male, whose past medical history includes pacemaker and prior stroke, presents to the emergency department complaining of hematuria this morning. Patient's family also reports a fever and productive cough. Patient took two Tylenol today. Denies any pain or any other complaints at this time. PMD: Dr. Palacios Symptom Onset: Sudden Symptom Course: Unchanged Activities at Onset: Rest Context: Home Past Medical History - Provider Review Nursing Documentation Reviewed: Yes - Infectious Disease Hx of Infectious Diseases: None - Tetanus Immunization Tetanus Immunization: Unknown - Cardiac Hx Cardiac Disorders: Yes Hx Congestive Heart Failure: Yes Hx Pacemaker: Yes - Pulmonary Hx Chronic Obstructive Pulmonary Disease (COPD): Yes - Neurological HX Cerebrovascular Accident: Yes - HEENT Hx HEENT Disorder: Yes Hx Cataracts: Yes - Renal Hx Renal Disorder: Yes (Renal insufficinecy) - Endocrine/Metabolic Hx Diabetes Mellitus Type 1: Yes Hx Diabetes Mellitus Type 2: Yes - Hematological/Oncological Hx Blood Disorders: Yes Hx Anemia: Yes - Integumentary Hx Dermatological Disorder: No - Musculoskeletal/Rheumatological Hx Musculoskeletal Disorders: Yes Hx Falls: Yes - Gastrointestinal Hx Gastrointestinal Disorders: Yes (BOWEL OBSTRUCTION) Hx Colostomy: Yes - Genitourinary/Gynecological Hx Genitourinary Disorders: Yes Hx Prostate Problems: Yes (BPH) - Psychiatric Hx Emotional Abuse: No Hx Physical Abuse: No Hx Substance Use: No - Surgical History Other/Comment: Colostomy, Rside - Anesthesia Hx Anesthesia: Yes Hx Anesthesia Reactions: No Hx Malignant Hyperthermia: No - Suicidal Assessment Feels Threatened In Home Enviroment: No Family/Social History - Physician Review Nursing Documentation Reviewed: Yes Family/Social History: No Known Family HX Smoking Status: Former Smoker Hx Alcohol Use: No Hx Substance Use: No Hx Substance Use Treatment: No Allergies/Home Meds Allergies/Adverse Reactions: Allergies No Known Allergies Allergy (Verified 01/14/17 20:34) Home Medications: Home Meds Medication Instructions Recorded Confirmed Multivitamin [Daily Vitamin 1 each PO DAILY 02/04/16 01/14/17 Formula] Furosemide [Lasix] 40 mg PO DAILY 09/10/16 01/14/17 Pantoprazole [Protonix EC Tab] 40 mg PO DAILY 09/10/16 01/14/17 Insulin Glargine, Recombina 14 units SQ HS 09/13/16 01/14/17 [Lantus] Insulin Lispro-LOW [humALOG LOW] See Protocol SQ ACHS 09/13/16 01/14/17 Sacubitril/Valsartan [Entresto 24 1 tab PO BID 09/13/16 01/14/17 mg-26 mg Tablet] Atorvastatin [Lipitor] 10 mg PO DAILY 11/16/16 01/14/17 Dutasteride 1 cap PO DAILY 11/16/16 01/14/17 Ferrous Sulfate [Feosol] 325 mg PO BID 11/16/16 01/14/17 Review of Systems - Physician Review All systems were reviewed & negative as marked: Yes - Review of Systems Constitutional: Fevers Respiratory: Cough Cardiovascular: absent: Chest Pain Gastrointestinal: absent: Abdominal Pain Genitourinary Male: Hematuria Physical Exam Vital Signs Reviewed: Yes Vital Signs Temp Pulse Resp BP Pulse Ox 01/15/17 00:57 109 H 18 120/79 99 01/15/17 00:19 111 H 20 124/77 98 01/14/17 22:56 107 H 16 134/84 99 01/14/17 21:00 112 H 20 122/84 98 01/14/17 20:40 100.9 F H 01/14/17 20:36 99.8 F H 116 H 18 129/74 96 Temperature: Afebrile Blood Pressure: Normal Pulse: Tachycardic Respiratory Rate: Normal Appearance: Positive for: Well-Appearing, Non-Toxic, Comfortable Pain Distress: None Mental Status: Positive for: Alert and Oriented X 3 - Systems Exam Head: Present: Atraumatic, Normocephalic Pupils: Present: PERRL Extroacular Muscles: Present: EOMI Conjunctiva: Present: Normal Mouth: Present: Moist Mucous Membranes Neck: Present: Normal Range of Motion Respiratory/Chest: Present: Clear to Auscultation, Good Air Exchange. No: Respiratory Distress, Accessory Muscle Use Cardiovascular: Present: Tachycardic. No: Murmurs Abdomen: Present: Normal Bowel Sounds. No: Tenderness, Distention, Peritoneal Signs Back: Present: Normal Inspection Upper Extremity: Present: Normal Inspection. No: Cyanosis, Edema Lower Extremity: Present: Normal Inspection. No: Edema Neurological: Present: GCS=15, CN II-XII Intact, Speech Normal Skin: Present: Warm, Dry, Normal Color. No: Rashes Psychiatric: Present: Alert, Oriented x 3, Normal Insight, Normal Concentration Medical Decision Making ED Course and Treatment: 01/14/17 21:29 Impression: A 71 year old male with hematuria and fever. Differential Diagnosis included but are not limited to: UTI vs. urosepsis vs. hematuria Plan: -- EKG -- chest xray -- labs -- Urinalysis -- Maxipime IV -- Reassess and disposition Prior Visits: Notes and results from previous visits were reviewed. Patient last reported to the emergency department on 11/16/16 for evaluation of nausea, diaphoresis and hypertension. Patient admitted under Dr. Palacios's service to observation on telemetry. Patient was discharged on 11/21/16. Progress Notes: EKG: Ordered, reviewed, and independently interpreted the EKG. Rate : 115 BPM Rhythm : Sinus tachycardic Interpretation : Nonspecific ST segment changes 01/14/17 22:07 chest xray: No active disease, interpreted by me. case d/w dr jimenez will admit for uti and iv ab 01/15/17 05:02 - Lab Interpretations Lab Results: 01/14/17 21:30 01/14/17 21:30 Lab Results 01/14/17 21:45: Urine Color Dark yellow, Urine Appearance Cloudy, Urine pH 6.0, Ur Specific [place] 1.020, Urine Protein 100 H, Urine Glucose (UA) 100 H, Urine Ketones Negative, Urine Blood Large H, Urine Nitrate Negative, Urine Bilirubin Negative, Urine Urobilinogen 0.2, Ur Leukocyte Esterase Large H, Urine RBC 20 - 25, Urine WBC Tntc, Ur Epithelial Cells 3 - 4, Urine Bacteria Mod 01/14/17 21:30: Sodium 128 L, Chloride 102, Potassium 5.2 H, Carbon Dioxide 18 L , Anion Gap 13, BUN 38 H, Creatinine 2.6 H, Est GFR ( Amer) 29, Est GFR ( Non-Af Amer) 24, Random Glucose 237 H, Calcium 8.6, Phosphorus 3.5, Magnesium 1.7, Total Bilirubin 0.8, AST 27, ALT 33, Alkaline Phosphatase 103, Troponin I < 0.01 D, Total Protein 7.4, Albumin 3.7, Globulin 3.8, Albumin/Globulin Ratio 1.0 L 01/14/17 21:30: pO2 35, VBG pH 7.27 L, VBG pCO2 43.0, VBG HCO3 19.7 L, VBG Total CO2 21.0 L, VBG O2 Sat (Calc) 69.2 H, VBG Base Excess -7.0 L, VBG Potassium 5.5 H, Sodium 129.0 L, Chloride 102.0, Glucose 256 H, Lactate 1.1, FiO2 21.0, Venous Blood Potassium 5.5 H 01/14/17 21:30: PT 21.4 H, INR 1.98 H, APTT 40.6 H 01/14/17 21:30: WBC 13.4 H D, RBC 4.42, Hgb 11.6 L, Hct 34.8 L, MCV 78.7 L, MCH 26.2, MCHC 33.3, RDW 15.0 H, Plt Count 197, MPV 10.6, Gran % 81.7 H, Lymph % ( Auto) 7.7 L, Hunt % (Auto) 10.3 H, Eos % (Auto) 0.2 L, Baso % (Auto) 0.1, Gran # 10.96 H, Lymph # 1.0 L, Hunt # 1.4 H, Eos # 0.0, Baso # 0.01 I have reviewed the lab results: Yes - RAD Interpretation Radiology Orders: 01/14/17 20:50 CHEST PORTABLE [RAD] Stat - EKG Interpretation Interpreted by ED Physician: Yes Type: 12 lead EKG - Medication Orders Current Medication Orders: Aspirin (Ecotrin) 81 mg PO DAILY [facility] Atorvastatin Calcium (Lipitor) 10 mg PO DAILY [facility] Calcium/Vitamin D (Oscal-D 250 Mg-125 Units Tab) 1 tab PO DAILY [facility] Carvedilol (Coreg) 6.25 mg PO BID [facility] Ferrous Sulfate (Feosol) 325 mg PO BID [facility] Furosemide (Lasix) 20 mg PO DAILY [facility] Insulin Detemir (Levemir) 5 unit SC Q12 [facility] Last Admin: 01/15/17 04:39 Dose: Not Given Non-Admin Reason: Patient Refused Insulin Human Lispro (Humalog Low) 0 units SC ACHS [facility] PRN Reason: Protocol Multivitamins (Thera Tab) 1 tab PO DAILY [facility] Non-Formulary Medication (Dutasteride [Dutasteride]) 1 cap PO DAILY [facility] (Sacubitril/Valsartan [Entresto 24 Mg-26 Mg Tablet] 1 Tab) 1 tab PO BID [facility] Pantoprazole Sodium (Protonix Ec Tab) 40 mg PO 0600 [facility] Tamsulosin HCl (Flomax) 0.4 mg PO DAILY [facility] Warfarin Sodium (Coumadin) 1.5 mg PO 1800 [facility] PRN Reason: Protocol Discontinued Medications Carvedilol (Coreg) 12.5 mg PO BID [facility] Furosemide (Lasix) 40 mg PO DAILY [facility] Cefepime HCl (Maxipime 2gm) 2 gm in 100 mls @ 100 mls/hr IVPB STAT [facility] PRN Reason: Protocol Stop: 01/14/17 21:49 Last Admin: 01/14/17 21:45 Dose: 100 mls/hr Meropenem 500 mg/ Sodium (Chloride) 100 mls @ 100 mls/hr IVPB Q12 [facility] PRN Reason: Protocol Stop: 01/15/17 01:59 Last Admin: 01/15/17 04:19 Dose: 100 mls/hr - Scribe Statement The provider has reviewed the documentation as recorded by the Jasper Borja Provider Scribe Attestation: All medical record entries made by the Jasper were at my direction and personally dictated by me. I have reviewed the chart and agree that the record accurately reflects my personal performance of the history, physical exam, medical decision making, and the department course for this patient. I have also personally directed, reviewed, and agree with the discharge instructions and disposition. Disposition/Present on Arrival - Present on Arrival Any Indicators Present on Arrival: No History of DVT/PE: No History of Uncontrolled Diabetes: No Urinary Catheter: No History of Decub. Ulcer: No History Surgical Site Infection Following: None - Disposition Have Diagnosis and Disposition been Completed?: Yes Diagnosis: UTI (urinary tract infection) Disposition: HOSPITALIZED Disposition Time: 22:00 Condition: FAIR
[2017-01-14 22:01] LABS: BASO # 0.01 K/mm3 (0.0-2.0); BASO % 0.1 % (0.0-3.0); EOS % 0.2 % (1.5-5.0); GRAN # 10.96 (1.4-6.5); GRAN % 81.7 % (50.0-68.0); HEMOGLOBIN 11.6 gm/dL (14.0-18.0); LYMPH % 7.7 % (22.0-35.0); MEAN CELL VOLUME 78.7 fL (80.0-105.0); MEAN CORPUSCULAR HEMOGLOBIN 26.2 pg (25.0-35.0); MEAN CORPUSCULAR HGB CONC 33.3 g/dl (31.0-37.0); MEAN PLATELET VOLUME 10.6 fl (7.0-11.0); MONO # 1.4 (0.1-0.6); MONO % 10.3 % (1.0-6.0); PLATELET COUNT 197 10^3/uL (120.0-450.0); RBC 4.42 10^6/uL (3.5-6.1); WHITE BLOOD COUNT 13.4 10^3/ul (4.5-11.0)
[2017-01-14 22:03] LABS: VENOUS BLOOD GAS PO2 35 mm/Hg (30-55); VENOUS BLOOD PH 7.27 (7.32-7.43)
[2017-01-14 22:04] LABS: INR 1.98 (0.93-1.08); PARTIAL THROMBOPLASTIN TIME 40.6 Seconds (23.7-30.8); PROTHROMBIN TIME 21.4 Seconds (9.9-11.8)
[2017-01-14 22:06] LABS: ALBUMIN 3.7 g/dL (3.0-4.8); ALT/SGPT 33 U/L (7-56); AST/SGOT 27 U/L (15-59); BLOOD UREA NITROGEN 38 mg/dL (7-21); CALCIUM 8.6 mg/dL (8.4-10.5); GFR AFRICAN-AMERICAN 29; GFR NON-AFRICAN AMERICAN 24; MAGNESIUM 1.7 mg/dL (1.7-2.2)
[2017-01-14 22:06] LABS: URINE BILIRUBIN NEGATIVE (NEGATIVE); URINE BLOOD LARGE (NEGATIVE); URINE GLUCOSE (UA) 100 mg/dL (NEGATIVE); URINE LEUKOCYTE ESTERASE LARGE Leu/uL (NEGATIVE); URINE NITRATE NEGATIVE (NEGATIVE); URINE PROTEIN 100 mg/dL (<30 mg/dL); URINE UROBILINOGEN 0.2 E.U./dL (<1 E.U./dL)
[2017-01-14 22:11] LABS: URINE APPEARANCE CLOUDY (CLEAR); URINE COLOR DARK YELLOW (YELLOW)
[2017-01-14 22:19] LABS: TROPONIN I < 0.01 ng/mL
[2017-01-14 22:37] LABS: URINE BACTERIA MOD (NEG); URINE RBC 20 - 25 /hpf (0-2); URINE WBC TNTC /hpf (0-6)
--- NOTE | 2017-01-15 00:20 | CP.PCM.HP ---
<Sunday Eugenewin - Last Filed: 01/15/17 02:37> History of Present Illness - History of Present Illness History of Present Illness: cc: hematuria HPI: Patient is a 71yo female with extensive past medical history that includes IDDM, hypertension, dyslipidemia, CVA, CHF (LVEF ~20%) with AICD placement and history of home milrinone use, AAA s/p repair that was complicated by endoleak, ischemic colitis with right-sided hemicolectomy and ileostomy with rectal stump , stage IV CKD, BPH, LLE DVT, atrial fibrillation, COPD and prior history of multi-drug resistant klebsiella UTI that presents c/o hematuria. Per patients , his hematuria had started this morning and was associated with fevers, chills and burning on urination. She reported having given him tylenol for relief of his fever. Denies chest pain, palptiations, SOB, abdominal pain, nausea, vomiting. 12 point ROS as per HPI above, otherwise negative PMHx: see above PSHx: pacemaker, hx of chest wall port; AAA repair; ileostomy; right sided hemicolectomy Allergies: NKDA Social Hx: Denies alcohol, tobacco and illicit drug use; lives with his ; Born in [place] Family Hx: Noncontributory PMD: Dr. Palacios Present on Admission - Present on Admission Any Indicators Present on Admission: Yes History of DVT/PE: Yes Past Patient History - Infectious Disease Hx of Infectious Diseases: None - Tetanus Immunizations Tetanus Immunization: Unknown - Past Medical History & Family History Past Medical History?: Yes - Past Social History Smoking Status: Former Smoker - CARDIAC Hx Cardiac Disorders: Yes Hx Congestive Heart Failure: Yes Hx Pacemaker: Yes - PULMONARY Hx Chronic Obstructive Pulmonary Disease (COPD): Yes - NEUROLOGICAL HX Cerebrovascular Accident: Yes - HEENT Hx HEENT Problems: Yes Hx Cataracts: Yes - RENAL Hx Chronic Kidney Disease: Yes (Renal insufficinecy) - ENDOCRINE/METABOLIC Hx Diabetes Mellitus Type 1: Yes Hx Diabetes Mellitus Type 2: Yes - HEMATOLOGICAL/ONCOLOGICAL Hx Blood Disorders: Yes Hx Anemia: Yes - INTEGUMENTARY Hx Dermatological Problems: No - MUSCULOSKELETAL/RHEUMATOLOGICAL Hx Musculoskeletal Disorders: Yes Hx Falls: Yes - GASTROINTESTINAL Hx Gastrointestinal Disorders: Yes (BOWEL OBSTRUCTION) Hx Colostomy: Yes - GENITOURINARY/GYNECOLOGICAL Hx Genitourinary Disorders: Yes Hx Prostate Problems: Yes (BPH) - PSYCHIATRIC Hx Emotional Abuse: No Hx Physical Abuse: No Hx Substance Use: No - SURGICAL HISTORY Other/Comment: Colostomy, Rside - ANESTHESIA Hx Anesthesia: Yes Hx Anesthesia Reactions: No Hx Malignant Hyperthermia: No Meds Allergies/Adverse Reactions: Allergies Allergy/AdvReac Type Severity Reaction Status Date / Time No Known Allergies Allergy Verified 01/14/17 20:34 Physical Exam - Constitutional Appears: No Acute Distress - Head Exam Head Exam: ATRAUMATIC, NORMAL INSPECTION, NORMOCEPHALIC - Eye Exam Eye Exam: EOMI, PERRL - ENT Exam ENT Exam: Mucous Membranes Moist - Neck Exam Neck exam: Positive for: Normal Inspection - Respiratory Exam Respiratory Exam: Decreased Breath Sounds. absent: Rales, Rhonchi, Wheezes - Cardiovascular Exam Cardiovascular Exam: Irregular Rhythm, +S1, +S2. absent: Gallop, Rubs - GI/Abdominal Exam GI & Abdominal Exam: Soft. absent: Distended, Firm, Guarding, Rebound, Tenderness - Extremities Exam Extremities exam: Positive for: normal inspection - Neurological Exam Neurological exam: Alert, Oriented x3 - Psychiatric Exam Psychiatric exam: Normal Affect, Normal Mood - Skin Skin Exam: Dry, Intact, Normal Color, Warm Results - Vital Signs Recent Vital Signs: Last Vital Signs Temp 100.9 F H 01/14/17 20:40 Pulse 107 H 01/14/17 22:56 Resp 16 01/14/17 22:56 BP 134/84 01/14/17 22:56 Pulse Ox 99 01/14/17 22:56 - Labs Result Diagrams: 01/14/17 21:30 01/14/17 21:30 Assessment & Plan - Assessment and Plan (Free Text) Assessment: 71 yo male with extensive past medical history presents c/o hematuria associated with fever, chills and dysuria Plan: 1. Complicated UTI with history of multi-drug resistant klebsiella -Patient given a dose of cefepime in the ED, will continue with meropenem pending ID recommendation -Blood, urine cultures pending -Procalcitonin pending -ID consulted - Dr. Conner 2. Hyponatremia -Urine studies pending: urine sodium, chloride, serum osmolality, urine osmolality -Nephrology consulted - Dr. Crump 3. CHF (LVEF ~15-20%) -Continue lower dose of coreg, lasix, entresto, dutasteride 4. IDDM -Continue levemir 5u BID with humalog low dose ISS -Fingersticks ACHS -Consistent carb diet 5. Hypertension -Continue home medications 6. Dyslipidemia -Continue lipitor 7. Atrial fibrillation -Continue home coumadin -INR 1.98, recheck in AM 8. LLE DVT -Continue coumadin 9. CKD stage ~4 -Will continue to monitor renal function and adjust antibiotics to avoid nephrotoxicity -Nephrology consulted - Dr. Crump 10. BPH -Continue flomax 11. GI/DVT prophylaxis -Protonix/Coumadin Patient seen, examined, reviewed and case discussed with attending, Dr. Combs - Date & Time Date: 01/15/17 Time: 02:24 <Ralph Combs - Last Filed: 01/15/17 23:07> Results - Vital Signs Recent Vital Signs: Last Vital Signs Temp 97.8 F 01/15/17 07:49 Pulse 89 01/15/17 10:07 Resp 20 01/15/17 07:49 BP 117/75 01/15/17 10:08 Pulse Ox 98 01/15/17 07:49 - Labs Result Diagrams: 01/15/17 08:50 01/15/17 07:00 Labs: Laboratory Results - last 24 hr 01/15/17 01/15/17 01/15/17 00:30 00:35 00:40 WBC RBC Hgb Hct MCV MCH MCHC RDW Plt Count MPV Gran % Lymph % (Auto) [place] % (Auto) Eos % (Auto) Baso % (Auto) Gran # Lymph # [place] # Eos # Baso # Sodium Potassium Chloride Carbon Dioxide Anion Gap BUN Creatinine Est GFR ( Amer) Est GFR (Non-Af Amer) POC Glucose (mg/dL) Random Glucose Serum Osmolality 299 H Calcium Total Bilirubin Direct Bilirubin AST ALT Alkaline Phosphatase Total Protein Albumin Globulin Albumin/Globulin Ratio Procalcitonin Urine Osmolality 313 Ur Random Creatinine 62 Ur Random Sodium 01/15/17 01/15/17 01/15/17 00:40 07:00 07:16 WBC RBC Hgb Hct MCV MCH MCHC RDW Plt Count MPV Gran % Lymph % (Auto) [place] % (Auto) Eos % (Auto) Baso % (Auto) Gran # Lymph # [place] # Eos # Baso # Sodium 133 Potassium 4.8 Chloride 107 Carbon Dioxide 18 L Anion Gap 13 BUN 35 H Creatinine 2.5 H Est GFR ( Amer) 31 Est GFR (Non-Af Amer) 25 POC Glucose (mg/dL) 162 H Random Glucose 146 H Serum Osmolality Calcium 8.7 Total Bilirubin 0.7 Direct Bilirubin 0.4 AST 33 ALT 26 Alkaline Phosphatase 91 Total Protein 6.9 Albumin 3.2 Globulin 3.6 Albumin/Globulin Ratio 0.9 L Procalcitonin Urine Osmolality Ur Random Creatinine Ur Random Sodium 23 01/15/17 01/15/17 01/15/17 08:50 10:00 11:27 WBC 14.4 H RBC 4.23 Hgb 11.2 L Hct 33.6 L MCV 79.4 L MCH 26.5 MCHC 33.3 RDW 15.2 H Plt Count 182 MPV 10.7 Gran % 80.0 H Lymph % (Auto) 8.0 L [place] % (Auto) 11.3 H Eos % (Auto) 0.6 L Baso % (Auto) 0.1 Gran # 11.55 H Lymph # 1.2 Meagher # 1.6 H Eos # 0.1 Baso # 0.01 Sodium Potassium Chloride Carbon Dioxide Anion Gap BUN Creatinine Est GFR ( Amer) Est GFR (Non-Af Amer) POC Glucose (mg/dL) 236 H Random Glucose Serum Osmolality Calcium Total Bilirubin Direct Bilirubin AST ALT Alkaline Phosphatase Total Protein Albumin Globulin Albumin/Globulin Ratio Procalcitonin 1.00 H Urine Osmolality Ur Random Creatinine Ur Random Sodium 01/15/17 01/15/17 16:26 21:18 WBC RBC Hgb Hct MCV MCH MCHC RDW Plt Count MPV Gran % Lymph % (Auto) [place] % (Auto) Eos % (Auto) Baso % (Auto) Gran # Lymph # Meagher # Eos # Baso # Sodium Potassium Chloride Carbon Dioxide Anion Gap BUN Creatinine Est GFR ( Amer) Est GFR (Non-Af Amer) POC Glucose (mg/dL) 219 H 188 H Random Glucose Serum Osmolality Calcium Total Bilirubin Direct Bilirubin AST ALT Alkaline Phosphatase Total Protein Albumin Globulin Albumin/Globulin Ratio Procalcitonin Urine Osmolality Ur Random Creatinine Ur Random Sodium Attending/Attestation - Attestation I have personally seen and examined this patient.: Yes I have fully participated in the care of the patient.: Yes I have reviewed all pertinent clinical information: Yes
[2017-01-15] MEDS ORDERED: Meropenem 500 MG in Sodium Chloride 0.9% 100 ML IVPB SCH ×2 (01:00→10:00)
[2017-01-15] MEDS: Insulin Detemir 100 units/ml Vial (Levemir) SC SCH ×3 (04:39→22:00)
[2017-01-15] MEDS: Pantoprazole 40 mg EC Tab PO SCH (06:20)
[2017-01-15] MEDS ORDERED: Insulin Lispro (humaLOG) LOW Coverage SC SCH (07:30)
[2017-01-15] MEDS: Insulin Lispro (humaLOG) LOW Coverage SC SCH ×3 (08:25→22:00)
[2017-01-15 08:49] LABS: CALCIUM 8.7 mg/dL (8.4-10.5)
[2017-01-15 08:55] LABS: BASO # 0.01 K/mm3 (0.0-2.0); BASO % 0.1 % (0.0-3.0); EOS # 0.1 (0.0-0.7); EOS % 0.6 % (1.5-5.0); GRAN # 11.55 (1.4-6.5); HEMOGLOBIN 11.2 gm/dL (14.0-18.0); LYMPH # 1.2 (1.2-3.4); MEAN CELL VOLUME 79.4 fL (80.0-105.0); MEAN CORPUSCULAR HEMOGLOBIN 26.5 pg (25.0-35.0); MEAN CORPUSCULAR HGB CONC 33.3 g/dl (31.0-37.0); MEAN PLATELET VOLUME 10.7 fl (7.0-11.0); MONO # 1.6 (0.1-0.6); MONO % 11.3 % (1.0-6.0); PLATELET COUNT 182 10^3/uL (120.0-450.0); RBC 4.23 10^6/uL (3.5-6.1); RED CELL DISTRIBUTION WIDTH 15.2 % (11.5-14.5); WHITE BLOOD COUNT 14.4 10^3/ul (4.5-11.0)
[2017-01-15] MEDS ORDERED: Amikacin 500 MG in Dextrose 5% In Water 100 ML IV ONE (09:48)
[2017-01-15] MEDS ORDERED: SACUBITRIL PO SCH (10:00)
[2017-01-15] MEDS ORDERED: DUTASTERIDE PO SCH (10:00)
[2017-01-15] MEDS ORDERED: VALSARTAN PO SCH (10:00)
[2017-01-15] MEDS: Multivitamin Therapeutic Tab PO SCH (10:07)
--- NOTE | 2017-01-15 10:08 | CP.PCM.CON ---
History of Present Illness - History of Present Illness History of Present Illness: FEVER HEMATURIA Review of Systems - Constitutional Constitutional: Fever, Weakness - Genitourinary Genitourinary: Hematuria Past Patient History - Infectious Disease Hx of Infectious Diseases: None, ESL - Tetanus Immunizations Tetanus Immunization: Unknown - Past Medical History & Family History Past Medical History?: Yes - Past Social History Smoking Status: Former Smoker - CARDIAC Hx Cardiac Disorders: Yes Hx Congestive Heart Failure: Yes Hx Hypertension: Yes Hx Pacemaker: Yes - PULMONARY Hx Chronic Obstructive Pulmonary Disease (COPD): Yes - NEUROLOGICAL HX Cerebrovascular Accident: Yes Hx Seizures: Yes - HEENT Hx HEENT Problems: Yes Hx Cataracts: Yes - RENAL Hx Chronic Kidney Disease: Yes (Renal insufficinecy) - ENDOCRINE/METABOLIC Hx Diabetes Mellitus Type 1: Yes Hx Diabetes Mellitus Type 2: Yes - HEMATOLOGICAL/ONCOLOGICAL Hx Blood Disorders: Yes Hx Anemia: Yes - INTEGUMENTARY Hx Dermatological Problems: No - MUSCULOSKELETAL/RHEUMATOLOGICAL Hx Musculoskeletal Disorders: Yes Hx Falls: Yes - GASTROINTESTINAL Hx Gastrointestinal Disorders: Yes (BOWEL OBSTRUCTION) Hx Colostomy: Yes - GENITOURINARY/GYNECOLOGICAL Hx Genitourinary Disorders: Yes Hx Prostate Problems: Yes (BPH) - PSYCHIATRIC Hx Emotional Abuse: No Hx Physical Abuse: No Hx Substance Use: No - SURGICAL HISTORY Other/Comment: Colostomy, Rside - ANESTHESIA Hx Anesthesia: Yes Hx Anesthesia Reactions: No Hx Malignant Hyperthermia: No Meds Allergies/Adverse Reactions: Allergies Allergy/AdvReac Type Severity Reaction Status Date / Time No Known Allergies Allergy Verified 01/14/17 20:34 - Medications Medications: Current Medications Aspirin (Ecotrin) 81 mg PO DAILY [facility] Atorvastatin Calcium (Lipitor) 10 mg PO DAILY [facility] Calcium/Vitamin D (Oscal-D 250 Mg-125 Units Tab) 1 tab PO DAILY [facility] Carvedilol (Coreg) 6.25 mg PO BID [facility] Ferrous Sulfate (Feosol) 325 mg PO BID [facility] Furosemide (Lasix) 20 mg PO DAILY [facility] Meropenem 250 mg/ Sodium (Chloride) 100 mls @ 100 mls/hr IVPB Q12H [facility] PRN Reason: Protocol Stop: 01/24/17 10:01 Amikacin Sulfate 500 mg/ (Dextrose) 102 mls @ 204 mls/hr IV ONCE ONE PRN Reason: Protocol Stop: 01/15/17 10:17 Insulin Detemir (Levemir) 5 unit SC Q12 [facility] Last Admin: 01/15/17 04:39 Dose: Not Given Insulin Human Lispro (Humalog Low) 0 units SC ACHS [facility] PRN Reason: Protocol Last Admin: 01/15/17 08:25 Dose: 1 units Multivitamins (Thera Tab) 1 tab PO DAILY [facility] Non-Formulary Medication (Dutasteride [Dutasteride]) 1 cap PO DAILY [facility] (Sacubitril/Valsartan [Entresto 24 Mg-26 Mg Tablet] 1 Tab) 1 tab PO BID [facility] Pantoprazole Sodium (Protonix Ec Tab) 40 mg PO 0600 [facility] Last Admin: 01/15/17 06:20 Dose: 40 mg Tamsulosin HCl (Flomax) 0.4 mg PO DAILY [facility] Warfarin Sodium (Coumadin) 1.5 mg PO 1800 [facility] PRN Reason: Protocol Physical Exam - Constitutional Appears: Well - Head Exam Head Exam: ATRAUMATIC, NORMAL INSPECTION, NORMOCEPHALIC - Eye Exam Eye Exam: EOMI, Normal appearance, PERRL Pupil Exam: NORMAL ACCOMODATION, PERRL - ENT Exam ENT Exam: Mucous Membranes Moist, Normal Exam - Neck Exam Neck exam: Positive for: Normal Inspection - Respiratory Exam Respiratory Exam: Clear to Auscultation Bilateral, NORMAL BREATHING PATTERN - Cardiovascular Exam Cardiovascular Exam: REGULAR RHYTHM - GI/Abdominal Exam GI & Abdominal Exam: Normal Bowel Sounds, Soft. absent: Tenderness - Rectal Exam Rectal Exam: NORMAL INSPECTION - Exam Exam: Circumcision, NORMAL INSPECTION External exam: NORMAL EXTERNAL EXAM Speculum exam: NORMAL SPECULUM EXAM Bimanual exam: NORMAL BIMANUAL EXAM - Extremities Exam Extremities exam: Positive for: normal inspection - Back Exam Back exam: NORMAL INSPECTION - Neurological Exam Neurological exam: Alert, CN II-XII Intact, Normal Gait, Oriented x3, Reflexes Normal - Psychiatric Exam Psychiatric exam: Normal Affect, Normal Mood - Skin Skin Exam: Dry, Intact, Normal Color, Warm Results - Vital Signs Recent Vital Signs: Last Vital Signs Temp 97.8 F 01/15/17 07:49 Pulse 89 01/15/17 07:49 Resp 20 01/15/17 07:49 BP 117/75 01/15/17 07:49 Pulse Ox 98 01/15/17 07:49 - Labs Result Diagrams: 01/15/17 08:50 01/15/17 07:00 Labs: Laboratory Results - last 24 hr 01/15/17 01/15/17 01/15/17 00:30 00:35 00:40 WBC RBC Hgb Hct MCV MCH MCHC RDW Plt Count MPV Gran % Lymph % (Auto) [place] % (Auto) Eos % (Auto) Baso % (Auto) Gran # Lymph # [place] # Eos # Baso # Sodium Potassium Chloride Carbon Dioxide Anion Gap BUN Creatinine Est GFR ( Amer) Est GFR (Non-Af Amer) POC Glucose (mg/dL) Random Glucose Serum Osmolality 299 H Calcium Urine Osmolality 313 Ur Random Creatinine 62 Ur Random Sodium 01/15/17 01/15/17 01/15/17 00:40 07:00 07:16 WBC RBC Hgb Hct MCV MCH MCHC RDW Plt Count MPV Gran % Lymph % (Auto) [place] % (Auto) Eos % (Auto) Baso % (Auto) Gran # Lymph # [place] # Eos # Baso # Sodium 133 Potassium 4.8 Chloride 107 Carbon Dioxide 18 L Anion Gap 13 BUN 35 H Creatinine 2.5 H Est GFR ( Amer) 31 Est GFR (Non-Af Amer) 25 POC Glucose (mg/dL) 162 H Random Glucose 146 H Serum Osmolality Calcium 8.7 Urine Osmolality Ur Random Creatinine Ur Random Sodium 23 01/15/17 08:50 WBC 14.4 H RBC 4.23 Hgb 11.2 L Hct 33.6 L MCV 79.4 L MCH 26.5 MCHC 33.3 RDW 15.2 H Plt Count 182 MPV 10.7 Gran % 80.0 H Lymph % (Auto) 8.0 L [place] % (Auto) 11.3 H Eos % (Auto) 0.6 L Baso % (Auto) 0.1 Gran # 11.55 H Lymph # 1.2 Chase # 1.6 H Eos # 0.1 Baso # 0.01 Sodium Potassium Chloride Carbon Dioxide Anion Gap BUN Creatinine Est GFR ( Amer) Est GFR (Non-Af Amer) POC Glucose (mg/dL) Random Glucose Serum Osmolality Calcium Urine Osmolality Ur Random Creatinine Ur Random Sodium Assessment & Plan (1) Hematuria Status: Acute (2) UTI (urinary tract infection) Status: Acute (3) A-fib Status: Acute (4) Abdominal aneurysm Status: Acute (5) Abdominal pain Status: Acute (6) Acute respiratory failure requiring reintubation Status: Acute (7) Altered mental state Status: Acute (8) Anemia Status: Acute (9) Sepsis Status: Acute (10) Colonization with multidrug-resistant bacteria Status: Acute (11) History of ESBL Klebsiella pneumoniae infection Status: Acute - Assessment and Plan (Free Text) Plan: MERR/ ONE DOS OF AMIKACIN DONNELLY CULTS CK CXR CK PROCAL - Date & Time Date: 01/15/17 Time: 10:00
[2017-01-15 10:23] LABS: ALB/GLOB RATIO 0.9 (1.1-1.8); ALBUMIN 3.2 g/dL (3.0-4.8); BILIRUBIN,DIRECT 0.4 mg/dL (0.0-0.4)
[2017-01-15] MEDS: Calcium-Vit D 250 mg-125 Units Tab UD PO SCH (10:30)
--- NOTE | 2017-01-15 11:03 | RAD ---
HISTORY: Sepsis patient. Technique: Single view portable semi erect @ 21:00 COMPARISON: 11/16/2016 FINDINGS: LUNGS: Left lower lobe infiltrate identified previously has almost completely resolved. PLEURA: No significant pleural effusion identified, no pneumothorax apparent. CARDIOVASCULAR: No radiographic findings to suggest acute or significant cardiovascular disease. Position/ configuration of pacemaker device: Satisfactory. OSSEOUS STRUCTURES: No significant abnormalities. VISUALIZED UPPER ABDOMEN: Normal. OTHER FINDINGS: None. IMPRESSION: Near complete resolution left lower lobe infiltrate.
--- NOTE | 2017-01-15 20:15 | CARD ---
APPROVED REPORT EKG Measurement Heart [id number] MO [id number] <Conclusion> Sinus tachycardia with 1st degree AV block ILBBB ST & T wave changes secondary to Repolarization abnormality VS ischemia Abnormal ECG
[2017-01-15] MEDS ORDERED: Insulin Detemir 100 units/ml Vial (Levemir) SC SCH (22:00)
--- NOTE | 2017-01-15 23:54 | CP.PCM.CON ---
History of Present Illness - History of Present Illness History of Present Illness: Reason for consultation: [place], superimposed on CKD HPI: 71 yr old male with history of NIDDM, HTN, HLD, CVA, CHF, decreased EF, history of multi-drug resistant Klebsiella UTI, stage 4 CKD, is admitted with hematuria, fever, chills, burning in urine. No chest pain, shortness of breath, no abdominal pain, no N/V Past medical surgical history: As mentioned above Allergies: NKDA Social History: No alcohol abuse, no smoking, no drugs Family History: NC Review of Systems: All systems reviewed, positives mentioned above, rest unremarkable Physical Examination: Elderly male lying in bed Vital signs reviewed HEENT: NC, AT Neck: Supple, No JVD Lungs: bilateral equal air entry, no rales CVS: S1 S2 irregular, no murmur Abdomen: soft, non-tender, non-distended, BS + Ext: No edema Labs: Reviewed Meds: Reviewed Assesment and Plan: 1. 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 Resistant Klebsiella UTI 3. Hyponatremia, likely depletional 4. NIDDM 5. Hypertension 6. CHF 1. Continue IV Fluids 2. Push PO intake 3. Avoid Nephrotoxins 4. Limit use of aminoglycosides Thank you for the courtesy of this consultation, will follow closely Past Patient History - Infectious Disease Hx of Infectious Diseases: None, ESL - Tetanus Immunizations Tetanus Immunization: Unknown - Past Medical History & Family History Past Medical History?: Yes - Past Social History Smoking Status: Former Smoker - CARDIAC Hx Cardiac Disorders: Yes Hx Congestive Heart Failure: Yes Hx Hypertension: Yes Hx Pacemaker: Yes - PULMONARY Hx Chronic Obstructive Pulmonary Disease (COPD): Yes - NEUROLOGICAL HX Cerebrovascular Accident: Yes Hx Seizures: Yes - HEENT Hx HEENT Problems: Yes Hx Cataracts: Yes - RENAL Hx Chronic Kidney Disease: Yes (Renal insufficinecy) - ENDOCRINE/METABOLIC Hx Diabetes Mellitus Type 1: Yes Hx Diabetes Mellitus Type 2: Yes - HEMATOLOGICAL/ONCOLOGICAL Hx Blood Disorders: Yes Hx Anemia: Yes - INTEGUMENTARY Hx Dermatological Problems: No - MUSCULOSKELETAL/RHEUMATOLOGICAL Hx Musculoskeletal Disorders: Yes Hx Falls: Yes - GASTROINTESTINAL Hx Gastrointestinal Disorders: Yes (BOWEL OBSTRUCTION) Hx Colostomy: Yes - GENITOURINARY/GYNECOLOGICAL Hx Genitourinary Disorders: Yes Hx Prostate Problems: Yes (BPH) - PSYCHIATRIC Hx Emotional Abuse: No Hx Physical Abuse: No Hx Substance Use: No - SURGICAL HISTORY Other/Comment: Colostomy, Rside - ANESTHESIA Hx Anesthesia: Yes Hx Anesthesia Reactions: No Hx Malignant Hyperthermia: No Meds Allergies/Adverse Reactions: Allergies Allergy/AdvReac Type Severity Reaction Status Date / Time No Known Allergies Allergy Verified 01/14/17 20:34 - Medications Medications: Current Medications Aspirin (Ecotrin) 81 mg PO DAILY [facility] Last Admin: 01/15/17 10:09 Dose: 81 mg Atorvastatin Calcium (Lipitor) 10 mg PO DAILY [facility] Last Admin: 01/15/17 10:06 Dose: 10 mg Calcium/Vitamin D (Oscal-D 250 Mg-125 Units Tab) 1 tab PO DAILY [facility] Last Admin: 01/15/17 10:30 Dose: 1 tab Carvedilol (Coreg) 6.25 mg PO BID [facility] Last Admin: 01/15/17 10:07 Dose: 6.25 mg Ferrous Sulfate (Feosol) 325 mg PO BID [facility] Last Admin: 01/15/17 10:08 Dose: 325 mg Furosemide (Lasix) 20 mg PO DAILY [facility] Last Admin: 01/15/17 10:08 Dose: 20 mg Meropenem 250 mg/ Sodium (Chloride) 100 mls @ 100 mls/hr IVPB Q12H [facility] PRN Reason: Protocol Stop: 01/24/17 10:01 Last Admin: 01/15/17 21:39 Dose: 100 mls/hr Insulin Detemir (Levemir) 5 unit SC Q12 [facility] Last Admin: 01/15/17 10:09 Dose: 5 unit Insulin Human Lispro (Humalog Low) 0 units SC ACHS [facility] PRN Reason: Protocol Last Admin: 01/15/17 12:20 Dose: 2 units Multivitamins (Thera Tab) 1 tab PO DAILY [facility] Last Admin: 01/15/17 10:07 Dose: 1 tab (Sacubitril/Valsartan [Entresto 24 Mg-26 Mg] Home Med 1 tab PO BID [facility] Dutasteride [ Dutasteride] 0.5mg Home Med 1 cap PO DAILY [facility] Pantoprazole Sodium (Protonix Ec Tab) 40 mg PO 0600 [facility] Last Admin: 01/15/17 06:20 Dose: 40 mg Tamsulosin HCl (Flomax) 0.4 mg PO DAILY [facility] Last Admin: 01/15/17 10:06 Dose: 0.4 mg Warfarin Sodium (Coumadin) 1.5 mg PO 1800 [facility] PRN Reason: Protocol Results - Vital Signs Recent Vital Signs: Last Vital Signs Temp 97.8 F 01/15/17 07:49 Pulse 89 01/15/17 10:07 Resp 20 01/15/17 07:49 BP 117/75 01/15/17 10:08 Pulse Ox 98 01/15/17 07:49 - Labs Result Diagrams: 01/15/17 08:50 01/15/17 07:00 Labs: Laboratory Results - last 24 hr 01/15/17 01/15/17 01/15/17 00:30 00:35 00:40 WBC RBC Hgb Hct MCV MCH MCHC RDW Plt Count MPV Gran % Lymph % (Auto) [place] % (Auto) Eos % (Auto) Baso % (Auto) Gran # Lymph # [place] # Eos # Baso # Sodium Potassium Chloride Carbon Dioxide Anion Gap BUN Creatinine Est GFR ( Amer) Est GFR (Non-Af Amer) POC Glucose (mg/dL) Random Glucose Serum Osmolality 299 H Calcium Total Bilirubin Direct Bilirubin AST ALT Alkaline Phosphatase Total Protein Albumin Globulin Albumin/Globulin Ratio Procalcitonin Urine Osmolality 313 Ur Random Creatinine 62 Ur Random Sodium 01/15/17 01/15/17 01/15/17 00:40 07:00 07:16 WBC RBC Hgb Hct MCV MCH MCHC RDW Plt Count MPV Gran % Lymph % (Auto) [place] % (Auto) Eos % (Auto) Baso % (Auto) Gran # Lymph # [place] # Eos # Baso # Sodium 133 Potassium 4.8 Chloride 107 Carbon Dioxide 18 L Anion Gap 13 BUN 35 H Creatinine 2.5 H Est GFR ( Amer) 31 Est GFR (Non-Af Amer) 25 POC Glucose (mg/dL) 162 H Random Glucose 146 H Serum Osmolality Calcium 8.7 Total Bilirubin 0.7 Direct Bilirubin 0.4 AST 33 ALT 26 Alkaline Phosphatase 91 Total Protein 6.9 Albumin 3.2 Globulin 3.6 Albumin/Globulin Ratio 0.9 L Procalcitonin Urine Osmolality Ur Random Creatinine Ur Random Sodium 23 01/15/17 01/15/17 01/15/17 08:50 10:00 11:27 WBC 14.4 H RBC 4.23 Hgb 11.2 L Hct 33.6 L MCV 79.4 L MCH 26.5 MCHC 33.3 RDW 15.2 H Plt Count 182 MPV 10.7 Gran % 80.0 H Lymph % (Auto) 8.0 L [place] % (Auto) 11.3 H Eos % (Auto) 0.6 L Baso % (Auto) 0.1 Gran # 11.55 H Lymph # 1.2 Vilas # 1.6 H Eos # 0.1 Baso # 0.01 Sodium Potassium Chloride Carbon Dioxide Anion Gap BUN Creatinine Est GFR ( Amer) Est GFR (Non-Af Amer) POC Glucose (mg/dL) 236 H Random Glucose Serum Osmolality Calcium Total Bilirubin Direct Bilirubin AST ALT Alkaline Phosphatase Total Protein Albumin Globulin Albumin/Globulin Ratio Procalcitonin 1.00 H Urine Osmolality Ur Random Creatinine Ur Random Sodium 01/15/17 01/15/17 16:26 21:18 WBC RBC Hgb Hct MCV MCH MCHC RDW Plt Count MPV Gran % Lymph % (Auto) [place] % (Auto) Eos % (Auto) Baso % (Auto) Gran # Lymph # [place] # Eos # Baso # Sodium Potassium Chloride Carbon Dioxide Anion Gap BUN Creatinine Est GFR ( Amer) Est GFR (Non-Af Amer) POC Glucose (mg/dL) 219 H 188 H Random Glucose Serum Osmolality Calcium Total Bilirubin Direct Bilirubin AST ALT Alkaline Phosphatase Total Protein Albumin Globulin Albumin/Globulin Ratio Procalcitonin Urine Osmolality Ur Random Creatinine Ur Random Sodium
[2017-01-16] MEDS: Insulin Lispro (humaLOG) LOW Coverage SC SCH ×3 (08:06→17:43)
[2017-01-16 10:34] LABS: BASO # 0.01 K/mm3 (0.0-2.0); BASO % 0.1 % (0.0-3.0); EOS # 0.1 (0.0-0.7); EOS % 0.7 % (1.5-5.0); GRAN # 8.99 (1.4-6.5); GRAN % 80.4 % (50.0-68.0); HEMOGLOBIN 11.2 gm/dL (14.0-18.0); LYMPH # 0.8 (1.2-3.4); LYMPH % 6.9 % (22.0-35.0); MEAN CELL VOLUME 78.8 fL (80.0-105.0); MEAN CORPUSCULAR HEMOGLOBIN 26.4 pg (25.0-35.0); MEAN CORPUSCULAR HGB CONC 33.4 g/dl (31.0-37.0); MEAN PLATELET VOLUME 10.6 fl (7.0-11.0); MONO # 1.3 (0.1-0.6); MONO % 11.9 % (1.0-6.0); PLATELET COUNT 186 10^3/uL (120.0-450.0); RBC 4.25 10^6/uL (3.5-6.1); RED CELL DISTRIBUTION WIDTH 15.5 % (11.5-14.5); WHITE BLOOD COUNT 11.2 10^3/ul (4.5-11.0)
[2017-01-16 10:38] LABS: CALCIUM 8.9 mg/dL (8.4-10.5)
[2017-01-16] MEDS: Multivitamin Therapeutic Tab PO SCH (10:51)
[2017-01-16] MEDS: Calcium-Vit D 250 mg-125 Units Tab UD PO SCH (10:51)
[2017-01-16] MEDS: SACUBITRIL PO SCH ×2 (10:52→17:44)
[2017-01-16] MEDS: VALSARTAN PO SCH ×2 (10:52→17:44)
[2017-01-16] MEDS: DUTASTERIDE 0.5 MG PO SCH (10:53)
[2017-01-16] MEDS: Insulin Detemir 100 units/ml Vial (Levemir) SC SCH ×2 (10:56→22:15)
--- NOTE | 2017-01-16 11:05 | CP.PCM.PN ---
Subjective - Date & Time of Evaluation Date of Evaluation: 01/16/17 Time of Evaluation: 10:00 - Subjective Subjective: BETTER Objective - Vital Signs/Intake and Output Vital Signs (last 24 hours): Temp Pulse Resp BP Pulse Ox 98.6 F 116 H 20 136/89 97 01/16/17 07:37 01/16/17 07:37 01/16/17 07:37 01/16/17 10:51 01/16/17 07:37 Intake and Output: 01/16/17 01/16/17 06:59 18:59 Intake Total 300 Balance 300 - Medications Medications: Current Medications Aspirin (Ecotrin) 81 mg PO DAILY [facility] Last Admin: 01/16/17 10:51 Dose: 81 mg Atorvastatin Calcium (Lipitor) 10 mg PO DAILY [facility]S [facility] Last Admin: 01/16/17 10:51 Dose: 10 mg Calcium/Vitamin D (Oscal-D 250 Mg-125 Units Tab) 1 tab PO DAILY [facility]S [facility] Last Admin: 01/16/17 10:51 Dose: 1 tab Carvedilol (Coreg) 6.25 mg PO BID [facility] 234 [facility]S [facility] Last Admin: 01/16/17 10:51 Dose: 6.25 mg Ferrous Sulfate (Feosol) 324 mg PO BID [facility] 234 [facility]S [facility] Last Admin: 01/16/17 10:52 Dose: 324 mg Furosemide (Lasix) 20 mg PO DAILY [facility] 234 [facility] Last Admin: 01/16/17 10:51 Dose: 20 mg Meropenem 250 mg/ Sodium (Chloride) 100 mls @ 100 mls/hr IVPB Q12H [facility]S [facility] PRN Reason: Protocol Stop: 01/24/17 10:01 Last Admin: 01/16/17 10:53 Dose: 100 mls/hr Insulin Detemir (Levemir) 5 unit SC Q12 [facility] Last Admin: 01/16/17 10:56 Dose: 5 unit Insulin Human Lispro (Humalog Low) 0 units SC ACHS [facility] 234 BEDS [facility] PRN Reason: Protocol Last Admin: 01/16/17 08:06 Dose: 1 units Multivitamins (Thera Tab) 1 tab PO DAILY [facility] 234 [facility]S [facility] Last Admin: 01/16/17 10:51 Dose: 1 tab (Sacubitril/Valsartan [Entresto 24 Mg-26 Mg] Home Med 1 tab PO BID [facility] 234 B[facility]S [facility] Last Admin: 01/16/17 10:52 Dose: 1 tab Dutasteride [ Dutasteride] 0.5mg Home Med 1 cap PO DAILY [facility] 234 B[facility]S [facility] Last Admin: 01/16/17 10:53 Dose: 1 cap Pantoprazole Sodium (Protonix Ec Tab) 40 mg PO 0600 [facility] 234 [facility]S [facility] Last Admin: 01/15/17 06:20 Dose: 40 mg Tamsulosin HCl (Flomax) 0.4 mg PO DAILY [facility] 234 [facility]S [facility] Last Admin: 01/16/17 10:52 Dose: 0.4 mg Warfarin Sodium (Coumadin) 1.5 mg PO 1800 [facility] 234 [facility]S [facility] PRN Reason: Protocol - Labs Labs: 01/16/17 10:20 01/16/17 10:20 PT 21.4 Seconds (9.9-11.8) H 01/14/17 21:30 INR 1.98 (0.93-1.08) H 01/14/17 21:30 APTT 40.6 Seconds (23.7-30.8) H 01/14/17 21:30 - Constitutional Appears: Well - Head Exam Head Exam: ATRAUMATIC, NORMAL INSPECTION, NORMOCEPHALIC - Eye Exam Eye Exam: EOMI, Normal appearance, PERRL Pupil Exam: NORMAL ACCOMODATION, PERRL - ENT Exam ENT Exam: Mucous Membranes Moist, Normal Exam - Neck Exam Neck Exam: Full ROM, Normal Inspection. absent: Lymphadenopathy - Respiratory Exam Respiratory Exam: Clear to Ausculation Bilateral, NORMAL BREATHING PATTERN - Cardiovascular Exam Cardiovascular Exam: REGULAR RHYTHM, +S1, +S2. absent: Murmur - GI/Abdominal Exam GI & Abdominal Exam: Soft, Normal Bowel Sounds. absent: Tenderness - Rectal Exam Rectal Exam: NORMAL INSPECTION - Exam Exam: Circumcision, NORMAL INSPECTION External exam: NORMAL EXTERNAL EXAM Speculum exam: NORMAL SPECULUM EXAM Bimanual exam: NORMAL BIMANUAL EXAM - Extremities Exam Extremities Exam: Full ROM, Normal Capillary Refill, Normal Inspection. absent : Joint Swelling, Pedal Edema - Back Exam Back Exam: NORMAL INSPECTION - Neurological Exam Neurological Exam: Alert, Awake, CN II-XII Intact, Normal Gait, Oriented x3 - Psychiatric Exam Psychiatric exam: Normal Affect, Normal Mood - Skin Skin Exam: Dry, Intact, Normal Color, Warm Assessment and Plan (1) Hematuria Status: Acute (2) UTI (urinary tract infection) Status: Acute (3) A-fib Status: Acute (4) Abdominal aneurysm Status: Acute (5) Abdominal pain Status: Acute (6) Acute respiratory failure requiring reintubation Status: Acute (7) Altered mental state Status: Acute (8) Anemia Status: Acute (9) Sepsis Status: Acute (10) Colonization with multidrug-resistant bacteria Status: Acute (11) History of ESBL Klebsiella pneumoniae infection Status: Acute - Assessment and Plan (Free Text) Plan: PRESENT [facility]
--- NOTE | 2017-01-16 12:43 | CP.PCM.PN ---
<Luis Felipe Castaneda - Last Filed: 01/16/17 12:44> Subjective - Date & Time of Evaluation Date of Evaluation: 01/16/17 Time of Evaluation: 12:40 - Subjective Subjective: Medicine progress note Attending: Mariaelena Pt seen and examined at bedside. No acute distress. No events overnight. Urine growing gram neg avis, blood cultures neg. No fevers, chills, vomiting, diarrhea. Objective - Vital Signs/Intake and Output Vital Signs (last 24 hours): Temp Pulse Resp BP Pulse Ox 98.6 F 116 H 20 136/89 97 01/16/17 07:37 01/16/17 07:37 01/16/17 07:37 01/16/17 10:51 01/16/17 07:37 Intake and Output: 01/16/17 01/16/17 06:59 18:59 Intake Total 300 Balance 300 - Medications Medications: Current Medications Aspirin (Ecotrin) 81 mg PO DAILY [facility] Last Admin: 01/16/17 10:51 Dose: 81 mg Atorvastatin Calcium (Lipitor) 10 mg PO DAILY [facility] Last Admin: 01/16/17 10:51 Dose: 10 mg Calcium/Vitamin D (Oscal-D 250 Mg-125 Units Tab) 1 tab PO DAILY [facility] Last Admin: 01/16/17 10:51 Dose: 1 tab Carvedilol (Coreg) 6.25 mg PO BID [facility] Last Admin: 01/16/17 10:51 Dose: 6.25 mg Ferrous Sulfate (Feosol) 324 mg PO BID [facility] Last Admin: 01/16/17 10:52 Dose: 324 mg Furosemide (Lasix) 20 mg PO DAILY [facility] Last Admin: 01/16/17 10:51 Dose: 20 mg Meropenem 250 mg/ Sodium (Chloride) 100 mls @ 100 mls/hr IVPB Q12H [facility] PRN Reason: Protocol Stop: 01/24/17 10:01 Last Admin: 01/16/17 10:53 Dose: 100 mls/hr Insulin Detemir (Levemir) 5 unit SC Q12 [facility] Last Admin: 01/16/17 10:56 Dose: 5 unit Insulin Human Lispro (Humalog Low) 0 units SC ACHS [facility] PRN Reason: Protocol Last Admin: 01/16/17 11:47 Dose: 4 units Multivitamins (Thera Tab) 1 tab PO DAILY [facility] Last Admin: 01/16/17 10:51 Dose: 1 tab (Sacubitril/Valsartan [Entresto 24 Mg-26 Mg] Home Med 1 tab PO BID [facility] Last Admin: 01/16/17 10:52 Dose: 1 tab Dutasteride [ Dutasteride] 0.5mg Home Med 1 cap PO DAILY [facility] Last Admin: 01/16/17 10:53 Dose: 1 cap Pantoprazole Sodium (Protonix Ec Tab) 40 mg PO 0600 [facility] Last Admin: 01/15/17 06:20 Dose: 40 mg Tamsulosin HCl (Flomax) 0.4 mg PO DAILY [facility] Last Admin: 01/16/17 10:52 Dose: 0.4 mg Warfarin Sodium (Coumadin) 1.5 mg PO 1800 [facility] PRN Reason: Protocol - Labs Labs: 01/16/17 10:20 01/16/17 10:20 PT 21.4 Seconds (9.9-11.8) H 01/14/17 21:30 INR 1.98 (0.93-1.08) H 01/14/17 21:30 APTT 40.6 Seconds (23.7-30.8) H 01/14/17 21:30 - Constitutional Appears: Non-toxic, No Acute Distress - Head Exam Head Exam: ATRAUMATIC, NORMAL INSPECTION, NORMOCEPHALIC - Eye Exam Eye Exam: EOMI - ENT Exam ENT Exam: Mucous Membranes Moist - Respiratory Exam Respiratory Exam: absent: Respiratory Distress - Cardiovascular Exam Cardiovascular Exam: +S1, +S2 - GI/Abdominal Exam GI & Abdominal Exam: Soft, Normal Bowel Sounds. absent: Tenderness - Extremities Exam Extremities Exam: Full ROM, Normal Inspection - Neurological Exam Neurological Exam: Alert, Awake - Psychiatric Exam Psychiatric exam: Normal Affect, Normal Mood - Skin Skin Exam: Dry, Intact, Normal Color, Warm Assessment and Plan - Assessment and Plan (Free Text) Assessment: This is a 71 yo male with extensive past medical history presents with chief complaint of hematuria associated with fever, chills and dysuria 1. Complicated UTI with history of multi-drug resistant klebsiella -Patient given a dose of cefepime in the ED, will continue with meropenem pending ID recommendation -Blood neg, urine showing gram neg avis -Procalcitonin pending -ID consulted - Dr. Conner 2. Hyponatremia -Urine studies pending: urine sodium, chloride, serum osmolality, urine osmolality -Nephrology consulted - Dr. Crump 3. CHF (LVEF ~15-20%) -Continue lower dose of coreg, lasix, entresto, dutasteride 4. IDDM -Continue levemir 5u BID with humalog low dose ISS -Fingersticks ACHS -Consistent carb diet 5. Hypertension -Continue home medications 6. Dyslipidemia -Continue lipitor 7. Atrial fibrillation -Continue home warfarin 8. LLE DVT -Continue warfarin 9. CKD stage ~4 -Will continue to monitor renal function and adjust antibiotics to avoid nephrotoxicity -Nephrology consulted - Dr. Crump 10. BPH -Continue flomax 11. GI/DVT prophylaxis -Protonix/warfarin discussed with Dr. Ferrell <Mariaelena VERA,[facility] - Last Filed: 01/17/17 13:00> Objective - Vital Signs/Intake and Output Vital Signs (last 24 hours): Temp Pulse Resp BP Pulse Ox 98.1 F 111 H 20 134/94 H 97 01/17/17 08:59 01/17/17 09:48 01/17/17 08:59 01/17/17 09:48 01/17/17 08:59 Intake and Output: 01/17/17 01/17/17 06:59 18:59 Intake Total 660 Output Total 450 Balance 210 - Medications Medications: Current Medications Aspirin (Ecotrin) 81 mg PO DAILY [facility] Last Admin: 01/17/17 09:47 Dose: 81 mg Atorvastatin Calcium (Lipitor) 10 mg PO DAILY [facility] Last Admin: 01/17/17 09:48 Dose: 10 mg Calcium/Vitamin D (Oscal-D 250 Mg-125 Units Tab) 1 tab PO DAILY [facility] Last Admin: 01/17/17 09:47 Dose: 1 tab Carvedilol (Coreg) 12.5 mg PO BID [facility] Ferrous Sulfate (Feosol) 324 mg PO BID [facility] Last Admin: 01/17/17 09:48 Dose: 324 mg Furosemide (Lasix) 20 mg PO DAILY [facility] Last Admin: 01/17/17 09:47 Dose: 20 mg Meropenem 250 mg/ Sodium (Chloride) 100 mls @ 100 mls/hr IVPB Q12H [facility] PRN Reason: Protocol Stop: 01/24/17 10:01 Last Admin: 01/17/17 09:46 Dose: 100 mls/hr Insulin Detemir (Levemir) 5 unit SC Q12 [facility] Last Admin: 01/17/17 09:46 Dose: 5 unit Insulin Human Lispro (Humalog Low) 0 units SC ACHS [facility] PRN Reason: Protocol Last Admin: 01/17/17 08:37 Dose: 1 units Multivitamins (Thera Tab) 1 tab PO DAILY [facility] Last Admin: 01/17/17 09:48 Dose: 1 tab (Sacubitril/Valsartan [Entresto 24 Mg-26 Mg] Home Med 1 tab PO BID [facility] Last Admin: 01/17/17 09:49 Dose: 1 tab Dutasteride [ Dutasteride] 0.5mg Home Med 1 cap PO DAILY [facility] Last Admin: 01/17/17 09:48 Dose: 1 cap Pantoprazole Sodium (Protonix Ec Tab) 40 mg PO 0600 [facility] Last Admin: 01/17/17 08:32 Dose: Not Given Tamsulosin HCl (Flomax) 0.4 mg PO DAILY [facility] Last Admin: 01/17/17 09:47 Dose: 0.4 mg Warfarin Sodium (Coumadin) 2 mg PO 1800 [facility] - Labs Labs: 01/17/17 07:00 01/17/17 07:00 PT 17.8 Seconds (9.9-11.8) H 01/17/17 07:00 INR 1.65 (0.93-1.08) H 01/17/17 07:00 APTT 40.6 Seconds (23.7-30.8) H 01/14/17 21:30 Attending/Attestation - Attestation I have personally seen and examined this patient.: Yes I have fully participated in the care of the patient.: Yes I have reviewed all pertinent clinical information, including history, physical exam and plan: Yes Notes (Text): 01/17/17 12:57 Patient was seen and examined with medical record specialist .Agreed with resident assessment and plan. 71 yrs old male with extensive past medical history that includes IDDM, hypertension, dyslipidemia, CVA, CHF (LVEF ~20%) with AICD placement , AAA s/p repair that was complicated by endoleak, ischemic colitis with right-sided hemicolectomy and ileostomy with rectal stump, stage IV CKD, BPH, LLE DVT, atrial fibrillation, COPD and prior history of multi-drug resistant klebsiella UTI is admitted with UTI, urine cultures are growing gram negative avis ,we will follow up cultures . He is on Meropenem as per ID.He was also given one dose of Amikacin , Renal functions are at ase line creatinin is around 2.5 . Management plan was discussed in detail with patient and family. Education was provided.
--- NOTE | 2017-01-16 13:09 | CP.PCM.PN ---
Subjective - Date & Time of Evaluation Date of Evaluation: 01/16/17 Time of Evaluation: 12:00 - Subjective Subjective: Subjective: Awake, alert Comfortable No Dysuria, No SOB Physical Examination: Elderly male lying in bed Vital signs reviewed HEENT: NC, AT Neck: Supple, No JVD Lungs: bilateral equal air entry, no rales CVS: S1 S2 irregular, no murmur Abdomen: soft, non-tender, non-distended, BS + Ext: No edema Labs: Reviewed Meds: Reviewed Assesment and Plan: 1. 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 Resistant Klebsiella UTI 3. Hyponatremia, likely depletional 4. NIDDM 5. Hypertension 6. CHF 1. Continue IV Fluids 2. Push PO intake 3. Avoid Nephrotoxins 4. Limit use of aminoglycosides 5. Monitor UO Objective - Vital Signs/Intake and Output Vital Signs (last 24 hours): Temp Pulse Resp BP Pulse Ox 98.6 F 116 H 20 136/89 97 01/16/17 07:37 01/16/17 07:37 01/16/17 07:37 01/16/17 10:51 01/16/17 07:37 Intake and Output: 01/16/17 01/16/17 06:59 18:59 Intake Total 300 Balance 300 - Medications Medications: Current Medications Aspirin (Ecotrin) 81 mg PO DAILY [facility] Last Admin: 01/16/17 10:51 Dose: 81 mg Atorvastatin Calcium (Lipitor) 10 mg PO DAILY [facility] Last Admin: 01/16/17 10:51 Dose: 10 mg Calcium/Vitamin D (Oscal-D 250 Mg-125 Units Tab) 1 tab PO DAILY [facility] Last Admin: 01/16/17 10:51 Dose: 1 tab Carvedilol (Coreg) 6.25 mg PO BID [facility] Last Admin: 01/16/17 10:51 Dose: 6.25 mg Ferrous Sulfate (Feosol) 324 mg PO BID [facility] Last Admin: 01/16/17 10:52 Dose: 324 mg Furosemide (Lasix) 20 mg PO DAILY [facility] Last Admin: 01/16/17 10:51 Dose: 20 mg Meropenem 250 mg/ Sodium (Chloride) 100 mls @ 100 mls/hr IVPB Q12H [facility] PRN Reason: Protocol Stop: 01/24/17 10:01 Last Admin: 01/16/17 10:53 Dose: 100 mls/hr Insulin Detemir (Levemir) 5 unit SC Q12 [facility] Last Admin: 01/16/17 10:56 Dose: 5 unit Insulin Human Lispro (Humalog Low) 0 units SC ACHS [facility] PRN Reason: Protocol Last Admin: 01/16/17 11:47 Dose: 4 units Multivitamins (Thera Tab) 1 tab PO DAILY [facility] Last Admin: 01/16/17 10:51 Dose: 1 tab (Sacubitril/Valsartan [Entresto 24 Mg-26 Mg] Home Med 1 tab PO BID [facility] Last Admin: 01/16/17 10:52 Dose: 1 tab Dutasteride [ Dutasteride] 0.5mg Home Med 1 cap PO DAILY [facility] Last Admin: 01/16/17 10:53 Dose: 1 cap Pantoprazole Sodium (Protonix Ec Tab) 40 mg PO 0600 [facility] Last Admin: 01/15/17 06:20 Dose: 40 mg Tamsulosin HCl (Flomax) 0.4 mg PO DAILY [facility] Last Admin: 01/16/17 10:52 Dose: 0.4 mg Warfarin Sodium (Coumadin) 1.5 mg PO 1800 [facility] PRN Reason: Protocol - Labs Labs: 01/16/17 10:20 01/16/17 10:20 PT 21.4 Seconds (9.9-11.8) H 01/14/17 21:30 INR 1.98 (0.93-1.08) H 01/14/17 21:30 APTT 40.6 Seconds (23.7-30.8) H 01/14/17 21:30
[2017-01-17] MEDS: Pantoprazole 40 mg EC Tab PO SCH ×2 (07:00→08:32)
[2017-01-17 07:35] LABS: BASO # 0.02 K/mm3 (0.0-2.0); BASO % 0.2 % (0.0-3.0); EOS # 0.1 (0.0-0.7); EOS % 1.3 % (1.5-5.0); GRAN # 7.18 (1.4-6.5); GRAN % 74.3 % (50.0-68.0); HEMOGLOBIN 10.5 gm/dL (14.0-18.0); LYMPH % 10.6 % (22.0-35.0); MEAN CELL VOLUME 77.8 fL (80.0-105.0); MEAN CORPUSCULAR HEMOGLOBIN 25.7 pg (25.0-35.0); MEAN PLATELET VOLUME 10.3 fl (7.0-11.0); MONO # 1.3 (0.1-0.6); MONO % 13.6 % (1.0-6.0); PLATELET COUNT 190 10^3/uL (120.0-450.0); RBC 4.09 10^6/uL (3.5-6.1); RED CELL DISTRIBUTION WIDTH 15.4 % (11.5-14.5); WHITE BLOOD COUNT 9.7 10^3/ul (4.5-11.0)
[2017-01-17 07:45] LABS: INR 1.65 (0.93-1.08); PROTHROMBIN TIME 17.8 Seconds (9.9-11.8)
[2017-01-17 08:26] LABS: ALB/GLOB RATIO 0.8 (1.1-1.8); ALBUMIN 2.7 g/dL (3.0-4.8); CALCIUM 8.8 mg/dL (8.4-10.5); MAGNESIUM 1.6 mg/dL (1.7-2.2)
[2017-01-17] MEDS: Insulin Lispro (humaLOG) LOW Coverage SC SCH ×4 (08:37→22:17)
[2017-01-17 08:41] VITALS: RESP 20
[2017-01-17] MEDS: Insulin Detemir 100 units/ml Vial (Levemir) SC SCH ×2 (09:46→21:13)
[2017-01-17] MEDS: Calcium-Vit D 250 mg-125 Units Tab UD PO SCH (09:47)
[2017-01-17] MEDS: DUTASTERIDE 0.5 MG PO SCH (09:48)
[2017-01-17] MEDS: Multivitamin Therapeutic Tab PO SCH (09:48)
[2017-01-17] MEDS: VALSARTAN PO SCH ×2 (09:49→17:54)
[2017-01-17] MEDS: SACUBITRIL PO SCH ×2 (09:49→17:54)
--- NOTE | 2017-01-17 10:15 | CP.PCM.PN ---
Subjective - Date & Time of Evaluation Date of Evaluation: 01/17/17 Time of Evaluation: 07:00 - Subjective Subjective: BETTER Objective - Vital Signs/Intake and Output Vital Signs (last 24 hours): Temp Pulse Resp BP Pulse Ox 98.1 F 111 H 20 134/94 H 97 01/17/17 08:59 01/17/17 09:48 01/17/17 08:59 01/17/17 09:48 01/17/17 08:59 Intake and Output: 01/17/17 01/17/17 06:59 18:59 Intake Total 660 Output Total 450 Balance 210 - Medications Medications: Current Medications Aspirin (Ecotrin) 81 mg PO DAILY [facility] Last Admin: 01/17/17 09:47 Dose: 81 mg Atorvastatin Calcium (Lipitor) 10 mg PO DAILY [facility] Last Admin: 01/17/17 09:48 Dose: 10 mg Calcium/Vitamin D (Oscal-D 250 Mg-125 Units Tab) 1 tab PO DAILY [facility] Last Admin: 01/17/17 09:47 Dose: 1 tab Carvedilol (Coreg) 6.25 mg PO BID [facility] Last Admin: 01/17/17 09:48 Dose: 6.25 mg Ferrous Sulfate (Feosol) 324 mg PO BID [facility] Last Admin: 01/17/17 09:48 Dose: 324 mg Furosemide (Lasix) 20 mg PO DAILY [facility] Last Admin: 01/17/17 09:47 Dose: 20 mg Meropenem 250 mg/ Sodium (Chloride) 100 mls @ 100 mls/hr IVPB Q12H [facility] PRN Reason: Protocol Stop: 01/24/17 10:01 Last Admin: 01/17/17 09:46 Dose: 100 mls/hr Insulin Detemir (Levemir) 5 unit SC Q12 [facility] Last Admin: 01/17/17 09:46 Dose: 5 unit Insulin Human Lispro (Humalog Low) 0 units SC ACHS [facility] PRN Reason: Protocol Last Admin: 01/17/17 08:37 Dose: 1 units Multivitamins (Thera Tab) 1 tab PO DAILY [facility] Last Admin: 01/17/17 09:48 Dose: 1 tab (Sacubitril/Valsartan [Entresto 24 Mg-26 Mg] Home Med 1 tab PO BID [facility] Last Admin: 01/17/17 09:49 Dose: 1 tab Dutasteride [ Dutasteride] 0.5mg Home Med 1 cap PO DAILY [facility] Last Admin: 01/17/17 09:48 Dose: 1 cap Pantoprazole Sodium (Protonix Ec Tab) 40 mg PO 0600 [facility] Last Admin: 01/17/17 08:32 Dose: Not Given Tamsulosin HCl (Flomax) 0.4 mg PO DAILY [facility] Last Admin: 01/17/17 09:47 Dose: 0.4 mg Warfarin Sodium (Coumadin) 1.5 mg PO 1800 [facility] PRN Reason: Protocol Last Admin: 01/16/17 17:41 Dose: 1.5 mg - Labs Labs: 01/17/17 07:00 01/17/17 07:00 PT 17.8 Seconds (9.9-11.8) H 01/17/17 07:00 INR 1.65 (0.93-1.08) H 01/17/17 07:00 APTT 40.6 Seconds (23.7-30.8) H 01/14/17 21:30 - Constitutional Appears: Well - Head Exam Head Exam: ATRAUMATIC, NORMAL INSPECTION, NORMOCEPHALIC - Eye Exam Eye Exam: EOMI, Normal appearance, PERRL Pupil Exam: NORMAL ACCOMODATION, PERRL - ENT Exam ENT Exam: Mucous Membranes Moist, Normal Exam - Neck Exam Neck Exam: Full ROM, Normal Inspection. absent: Lymphadenopathy - Respiratory Exam Respiratory Exam: Clear to Ausculation Bilateral, NORMAL BREATHING PATTERN - Cardiovascular Exam Cardiovascular Exam: REGULAR RHYTHM, +S1, +S2. absent: Murmur - GI/Abdominal Exam GI & Abdominal Exam: Soft, Normal Bowel Sounds. absent: Tenderness - Rectal Exam Rectal Exam: NORMAL INSPECTION - Exam Exam: Circumcision, NORMAL INSPECTION External exam: NORMAL EXTERNAL EXAM Speculum exam: NORMAL SPECULUM EXAM Bimanual exam: NORMAL BIMANUAL EXAM - Extremities Exam Extremities Exam: Full ROM, Normal Capillary Refill, Normal Inspection. absent : Joint Swelling, Pedal Edema - Back Exam Back Exam: NORMAL INSPECTION - Neurological Exam Neurological Exam: Alert, Awake, CN II-XII Intact, Normal Gait, Oriented x3 - Psychiatric Exam Psychiatric exam: Normal Affect, Normal Mood - Skin Skin Exam: Dry, Intact, Normal Color, Warm Assessment and Plan (1) Hematuria Status: Acute (2) UTI (urinary tract infection) Status: Acute (3) A-fib Status: Acute (4) Abdominal aneurysm Status: Acute (5) Abdominal pain Status: Acute (6) Acute respiratory failure requiring reintubation Status: Acute (7) Altered mental state Status: Acute (8) Anemia Status: Acute (9) Sepsis Status: Acute (10) Colonization with multidrug-resistant bacteria Status: Acute (11) History of ESBL Klebsiella pneumoniae infection Status: Acute - Assessment and Plan (Free Text) Plan: CK ID OF GRAM NEG [place] N [facility] ON [facility]/ RESPONDING
--- NOTE | 2017-01-17 15:18 | CP.PCM.PN ---
Subjective - Date & Time of Evaluation Date of Evaluation: 01/17/17 Time of Evaluation: 14:00 - Subjective Subjective: Subjective: Subjective: Awake, alert Comfortable No Dysuria, No SOB Physical Examination: Elderly male lying in bed Vital signs reviewed HEENT: NC, AT Neck: Supple, No JVD Lungs: bilateral equal air entry, no rales CVS: S1 S2 irregular, no murmur Abdomen: soft, non-tender, non-distended, BS + Ext: No edema Labs: Reviewed Meds: Reviewed Assesment and Plan: 1. [place] superimposed on CKD4, likely pre-renal, resolving 2. Resistant Klebsiella UTI 3. Hyponatremia, likely depletional, resolving 4. NIDDM 5. Hypertension 6. CHF 1. Continue IV Fluids 2. Push PO intake 3. Avoid Nephrotoxins 4. Limit use of aminoglycosides 5. Monitor UO Objective - Vital Signs/Intake and Output Vital Signs (last 24 hours): Temp Pulse Resp BP Pulse Ox 98.1 F 111 H 20 134/94 H 97 01/17/17 08:59 01/17/17 09:48 01/17/17 08:59 01/17/17 09:48 01/17/17 08:59 Intake and Output: 01/17/17 01/17/17 06:59 18:59 Intake Total 660 Output Total 450 Balance 210 - Medications Medications: Current Medications Aspirin (Ecotrin) 81 mg PO DAILY [facility] Last Admin: 01/17/17 09:47 Dose: 81 mg Atorvastatin Calcium (Lipitor) 10 mg PO DAILY [facility] Last Admin: 01/17/17 09:48 Dose: 10 mg Calcium/Vitamin D (Oscal-D 250 Mg-125 Units Tab) 1 tab PO DAILY [facility] Last Admin: 01/17/17 09:47 Dose: 1 tab Carvedilol (Coreg) 12.5 mg PO BID [facility] Ferrous Sulfate (Feosol) 324 mg PO BID [facility] Last Admin: 01/17/17 09:48 Dose: 324 mg Furosemide (Lasix) 20 mg PO DAILY [facility] Last Admin: 01/17/17 09:47 Dose: 20 mg Meropenem 250 mg/ Sodium (Chloride) 100 mls @ 100 mls/hr IVPB Q12H [facility] PRN Reason: Protocol Stop: 01/24/17 10:01 Last Admin: 01/17/17 09:46 Dose: 100 mls/hr Insulin Detemir (Levemir) 5 unit SC Q12 [facility] Last Admin: 01/17/17 09:46 Dose: 5 unit Insulin Human Lispro (Humalog Low) 0 units SC ACHS [facility] PRN Reason: Protocol Last Admin: 01/17/17 15:09 Dose: Not Given Multivitamins (Thera Tab) 1 tab PO DAILY [facility] Last Admin: 01/17/17 09:48 Dose: 1 tab (Sacubitril/Valsartan [Entresto 24 Mg-26 Mg] Home Med 1 tab PO BID [facility] Last Admin: 01/17/17 09:49 Dose: 1 tab Dutasteride [ Dutasteride] 0.5mg Home Med 1 cap PO DAILY [facility] Last Admin: 01/17/17 09:48 Dose: 1 cap Pantoprazole Sodium (Protonix Ec Tab) 40 mg PO 0600 [facility] Last Admin: 01/17/17 08:32 Dose: Not Given Tamsulosin HCl (Flomax) 0.4 mg PO DAILY [facility] Last Admin: 01/17/17 09:47 Dose: 0.4 mg Warfarin Sodium (Coumadin) 2 mg PO 1800 [facility] - Labs Labs: 01/17/17 07:00 01/17/17 07:00 PT 17.8 Seconds (9.9-11.8) H 01/17/17 07:00 INR 1.65 (0.93-1.08) H 01/17/17 07:00 APTT 40.6 Seconds (23.7-30.8) H 01/14/17 21:30
--- NOTE | 2017-01-17 16:38 | CP.PCM.DIS ---
<ALBERTO ESCALANTE - Last Filed: 01/17/17 17:38> Provider - Provider Date of Admission: 01/14/17 22:43 Attending physician: Arabella Ferrell MD Primary care physician: Dexter Palacios MD Time Spent in preparation of Discharge (in minutes): 45 Hospital Course - Lab Results Lab Results: Most Recent Lab Values WBC 9.7 10^3/ul (4.5-11.0) 01/17/17 07:00 RBC 4.09 10^6/uL (3.5-6.1) 01/17/17 07:00 Hgb 10.5 gm/dL (14.0-18.0) L 01/17/17 07:00 Hct 31.8 % (42.0-52.0) L 01/17/17 07:00 MCV 77.8 fL (80.0-105.0) L 01/17/17 07:00 MCH 25.7 pg (25.0-35.0) 01/17/17 07:00 MCHC 33.0 g/dl (31.0-37.0) 01/17/17 07:00 RDW 15.4 % (11.5-14.5) H 01/17/17 07:00 Plt Count 190 10^3/uL (120.0-450.0) 01/17/17 07:00 MPV 10.3 fl (7.0-11.0) 01/17/17 07:00 Gran % 74.3 % (50.0-68.0) H 01/17/17 07:00 Lymph % (Auto) 10.6 % (22.0-35.0) L 01/17/17 07:00 [place] % (Auto) 13.6 % (1.0-6.0) H 01/17/17 07:00 Eos % (Auto) 1.3 % (1.5-5.0) L 01/17/17 07:00 Baso % (Auto) 0.2 % (0.0-3.0) 01/17/17 07:00 Gran # 7.18 (1.4-6.5) H 01/17/17 07:00 Lymph # 1.0 (1.2-3.4) L 01/17/17 07:00 [place] # 1.3 (0.1-0.6) H 01/17/17 07:00 Eos # 0.1 (0.0-0.7) 01/17/17 07:00 Baso # 0.02 K/mm3 (0.0-2.0) 01/17/17 07:00 PT 17.8 Seconds (9.9-11.8) H 01/17/17 07:00 INR 1.65 (0.93-1.08) H 01/17/17 07:00 APTT 40.6 Seconds (23.7-30.8) H 01/14/17 21:30 pO2 35 mm/Hg (30-55) 01/14/17 21:30 VBG pH 7.27 (7.32-7.43) L 01/14/17 21:30 VBG pCO2 43.0 (40-60) 01/14/17 21:30 VBG HCO3 19.7 mmol/l (21-28) L 01/14/17 21:30 VBG Total CO2 21.0 mmol.L (22-28) L 01/14/17 21:30 VBG O2 Sat (Calc) 69.2 % (40-65) H 01/14/17 21:30 VBG Base Excess -7.0 mmol/L (0.0-2.0) L 01/14/17 21:30 VBG Potassium 5.5 mmol/L (3.6-5.2) H 01/14/17 21:30 Sodium 129.0 mmol/L (132-148) L 01/14/17 21:30 Chloride 102.0 mmol/L (98-107) 01/14/17 21:30 Glucose 256 mg/dl (75-110) H 01/14/17 21:30 Lactate 1.1 mmol/L (0.7-2.1) 01/14/17 21:30 FiO2 21.0 % 01/14/17 21:30 Sodium 135 mmol/L (132-148) 01/17/17 07:00 Potassium 4.9 mmol/L (3.6-5.0) 01/17/17 07:00 Chloride 108 mmol/L (95-110) 01/17/17 07:00 Carbon Dioxide 16 mmol/L (21-33) L 01/17/17 07:00 Anion Gap 16 (10-20) 01/17/17 07:00 BUN 41 mg/dL (7-21) H 01/17/17 07:00 Creatinine 2.6 mg/dL (0.5-1.4) H 01/17/17 07:00 Est GFR ( Amer) 29 01/17/17 07:00 Est GFR (Non-Af Amer) 24 01/17/17 07:00 POC Glucose (mg/dL) 255 mg/dL (65-110) H 01/17/17 16:12 Random Glucose 162 mg/dL (70-110) H 01/17/17 07:00 Serum Osmolality 299 mosm/kg (271-296) H 01/15/17 00:35 Calcium 8.8 mg/dL (8.4-10.5) 01/17/17 07:00 Phosphorus 3.8 mg/dL (2.5-4.5) 01/17/17 07:00 Magnesium 1.6 mg/dL (1.7-2.2) L 01/17/17 07:00 Total Bilirubin 0.5 mg/dL (0.2-1.3) 01/17/17 07:00 Direct Bilirubin 0.4 mg/dL (0.0-0.4) 01/15/17 07:00 AST 17 U/L (15-59) 01/17/17 07:00 ALT 24 U/L (7-56) 01/17/17 07:00 Alkaline Phosphatase 90 U/L (38-133) 01/17/17 07:00 Troponin I < 0.01 ng/mL D 01/14/17 21:30 Total Protein 6.0 g/dL (5.8-8.3) 01/17/17 07:00 Albumin 2.7 g/dL (3.0-4.8) L 01/17/17 07:00 Globulin 3.2 gm/dL 01/17/17 07:00 Albumin/Globulin Ratio 0.8 (1.1-1.8) L 01/17/17 07:00 Procalcitonin 1.00 NG/ML (0.19-0.49) H 01/15/17 10:00 Venous Blood Potassium 5.5 mmol/L (3.6-5.2) H 01/14/17 21:30 Urine Color Dark yellow (YELLOW) 01/14/17 21:45 Urine Appearance Cloudy (CLEAR) 01/14/17 21:45 Urine pH 6.0 (4.7-8.0) 01/14/17 21:45 Ur Specific [place] 1.020 (1.005-1.035) 01/14/17 21:45 Urine Protein 100 mg/dL (<30 mg/dL) H 01/14/17 21:45 Urine Glucose (UA) 100 mg/dL (NEGATIVE) H 01/14/17 21:45 Urine Ketones Negative mg/dL (NEGATIVE) 01/14/17 21:45 Urine Blood Large (NEGATIVE) H 01/14/17 21:45 Urine Nitrate Negative (NEGATIVE) 01/14/17 21:45 Urine Bilirubin Negative (NEGATIVE) 01/14/17 21:45 Urine Urobilinogen 0.2 E.U./dL (<1 E.U./dL) 01/14/17 21:45 Ur Leukocyte Esterase Large Raj/uL (NEGATIVE) H 01/14/17 21:45 Urine RBC 20 - 25 /hpf (0-2) 01/14/17 21:45 Urine WBC Tntc /hpf (0-6) 01/14/17 21:45 Ur Epithelial Cells 3 - 4 /hpf (0-5) 01/14/17 21:45 Urine Bacteria Mod (NEG) 01/14/17 21:45 Urine Osmolality 313 mosm/kg (50-645) 01/15/17 00:40 Ur Random Creatinine 62 mg/dL 01/15/17 00:30 Ur Random Sodium 23 meq/L 01/15/17 00:40 Urine Chloride 43 mmol/L (32-290) 01/15/17 00:30 - Hospital Course Hospital Course: Mr. Weir is a 71 yo M with extensive past medical history that includes IDDM, hypertension, dyslipidemia, CVA, CHF (LVEF ~20%) with AICD placement and history of home milrinone use, AAA s/p repair that was complicated by endoleak, ischemic colitis with right-sided hemicolectomy and ileostomy with rectal stump , stage IV CKD, BPH, LLE DVT, atrial fibrillation, COPD and prior history of multi-drug resistant klebsiella UTI that presented on 01/14/17 c/o hematuria. Per patients , his hematuria had started this morning and was associated with fevers, chills and burning on urination. She reported having given him tylenol for relief of his fever. Denies chest pain, palptiations, SOB, abdominal pain, nausea, vomiting. In ED, blood and urine cultures were drawn. ID was consulted. The pt received a dose of cefepime and was transferred to the medicine floors on meropenem. Nephrology was also consulted for hyponatremia and CKD stage IV (baseline Cr 2.5 ). Per ID, pt was given one dose of Amikacin. Urine cultures grew Klebsiella pneuomoniae susceptible to Amikacin and Tigecycline. Preliminary blood cultures are negative. Patient has been responding well to antibiocs and is afebrile. Today, the patient has no complaints and denies fevers, hematuria or dysuria. Patient states that he has a slow stream of urine. Patient to be transferred to TCU on the same meds currently on. - Date & Time of H&P Date of H&P: 01/15/17 Time of H&P: 00:15 Discharge Exam - Head Exam Head Exam: ATRAUMATIC, NORMAL INSPECTION, NORMOCEPHALIC - Eye Exam Eye Exam: EOMI, Normal appearance, PERRL - ENT Exam ENT Exam: Mucous Membranes Moist - Respiratory Exam Respiratory Exam: NORMAL BREATHING PATTERN. absent: Rales, Rhonchi, Wheezes, Stridor - Cardiovascular Exam Cardiovascular Exam: REGULAR RHYTHM, RRR, +S1, +S2. absent: Gallop, Rubs - GI/Abdominal Exam GI & Abdominal Exam: Tenderness Additional comments: R sided ileostomy bag with soft brown stools - Neurological Exam Neurological exam: Alert, Oriented x3 - Psychiatric Exam Psychiatric exam: Normal Affect, Normal Mood Discharge Plan - Follow Up Plan Condition: FAIR Disposition: TRANSF TO SNF Instructions: Urinary Tract Infection in Men (DC), Acute Hematuria (DC) Additional Instructions: Follow up care will be rendered on TCU, report given to Henok Clinton. Referrals: Dexter Palacios MD [Primary Care Provider] - <Arabella Ferrell MD - Last Filed: 01/29/17 10:57> Provider - Provider Date of Admission: 01/14/17 22:43 Attending physician: Jaden Salas MD Primary care physician: Dexter Palacios MD Hospital Course - Lab Results Lab Results: Micro Results 01/19/17 12:30 Urine,Catheterized Urine Culture - Final Gram Negative Ty Most Recent Lab Values WBC 7.2 10^3/ul (4.5-11.0) 01/19/17 07:00 RBC 4.16 10^6/uL (3.5-6.1) 01/19/17 07:00 Hgb 10.7 gm/dL (14.0-18.0) L 01/19/17 07:00 Hct 32.1 % (42.0-52.0) L 01/19/17 07:00 MCV 77.2 fL (80.0-105.0) L 01/19/17 07:00 MCH 25.7 pg (25.0-35.0) 01/19/17 07:00 MCHC 33.3 g/dl (31.0-37.0) 01/19/17 07:00 RDW 15.3 % (11.5-14.5) H 01/19/17 07:00 Plt Count 210 10^3/uL (120.0-450.0) 01/19/17 07:00 MPV 10.3 fl (7.0-11.0) 01/19/17 07:00 Gran % 74.3 % (50.0-68.0) H 01/17/17 07:00 Lymph % (Auto) 10.6 % (22.0-35.0) L 01/17/17 07:00 [place] % (Auto) 13.6 % (1.0-6.0) H 01/17/17 07:00 Eos % (Auto) 1.3 % (1.5-5.0) L 01/17/17 07:00 Baso % (Auto) 0.2 % (0.0-3.0) 01/17/17 07:00 Gran # 7.18 (1.4-6.5) H 01/17/17 07:00 Lymph # 1.0 (1.2-3.4) L 01/17/17 07:00 [place] # 1.3 (0.1-0.6) H 01/17/17 07:00 Eos # 0.1 (0.0-0.7) 01/17/17 07:00 Baso # 0.02 K/mm3 (0.0-2.0) 01/17/17 07:00 PT 20.2 Seconds (9.9-11.8) H 01/19/17 07:00 INR 1.87 (0.93-1.08) H 01/19/17 07:00 APTT 40.6 Seconds (23.7-30.8) H 01/14/17 21:30 pO2 35 mm/Hg (30-55) 01/14/17 21:30 VBG pH 7.27 (7.32-7.43) L 01/14/17 21:30 VBG pCO2 43.0 (40-60) 01/14/17 21:30 VBG HCO3 19.7 mmol/l (21-28) L 01/14/17 21:30 VBG Total CO2 21.0 mmol.L (22-28) L 01/14/17 21:30 VBG O2 Sat (Calc) 69.2 % (40-65) H 01/14/17 21:30 VBG Base Excess -7.0 mmol/L (0.0-2.0) L 01/14/17 21:30 VBG Potassium 5.5 mmol/L (3.6-5.2) H 01/14/17 21:30 Sodium 129.0 mmol/L (132-148) L 01/14/17 21:30 Chloride 102.0 mmol/L (98-107) 01/14/17 21:30 Glucose 256 mg/dl (75-110) H 01/14/17 21:30 Lactate 1.1 mmol/L (0.7-2.1) 01/14/17 21:30 FiO2 21.0 % 01/14/17 21:30 Sodium 133 mmol/L (132-148) 01/19/17 07:00 Potassium 4.6 mmol/L (3.6-5.0) 01/19/17 07:00 Chloride 107 mmol/L (95-110) 01/19/17 07:00 Carbon Dioxide 18 mmol/L (21-33) L 01/19/17 07:00 Anion Gap 13 (10-20) 01/19/17 07:00 BUN 54 mg/dL (7-21) H 01/19/17 07:00 Creatinine 2.5 mg/dL (0.5-1.4) H 01/19/17 07:00 Est GFR ( Amer) 31 01/19/17 07:00 Est GFR (Non-Af Amer) 25 01/19/17 07:00 POC Glucose (mg/dL) 290 mg/dL (65-110) H 01/19/17 11:13 Random Glucose 199 mg/dL (70-110) H 01/19/17 07:00 Serum Osmolality 299 mosm/kg (271-296) H 01/15/17 00:35 Calcium 8.8 mg/dL (8.4-10.5) 01/19/17 07:00 Phosphorus 3.8 mg/dL (2.5-4.5) 01/17/17 07:00 Magnesium 1.6 mg/dL (1.7-2.2) L 01/17/17 07:00 Total Bilirubin 0.4 mg/dL (0.2-1.3) 01/19/17 07:00 Direct Bilirubin 0.4 mg/dL (0.0-0.4) 01/15/17 07:00 AST 29 U/L (15-59) 01/19/17 07:00 ALT 27 U/L (7-56) 01/19/17 07:00 Alkaline Phosphatase 116 U/L (38-133) 01/19/17 07:00 Troponin I < 0.01 ng/mL D 01/14/17 21:30 Total Protein 6.8 g/dL (5.8-8.3) 01/19/17 07:00 Albumin 3.1 g/dL (3.0-4.8) 01/19/17 07:00 Globulin 3.7 gm/dL 01/19/17 07:00 Albumin/Globulin Ratio 0.8 (1.1-1.8) L 01/19/17 07:00 Procalcitonin 1.00 NG/ML (0.19-0.49) H 01/15/17 10:00 Venous Blood Potassium 5.5 mmol/L (3.6-5.2) H 01/14/17 21:30 Urine Color Dark yellow (YELLOW) 01/14/17 21:45 Urine Appearance Cloudy (CLEAR) 01/14/17 21:45 Urine pH 6.0 (4.7-8.0) 01/14/17 21:45 Ur Specific [place] 1.020 (1.005-1.035) 01/14/17 21:45 Urine Protein 100 mg/dL (<30 mg/dL) H 01/14/17 21:45 Urine Glucose (UA) 100 mg/dL (NEGATIVE) H 01/14/17 21:45 Urine Ketones Negative mg/dL (NEGATIVE) 01/14/17 21:45 Urine Blood Large (NEGATIVE) H 01/14/17 21:45 Urine Nitrate Negative (NEGATIVE) 01/14/17 21:45 Urine Bilirubin Negative (NEGATIVE) 01/14/17 21:45 Urine Urobilinogen 0.2 E.U./dL (<1 E.U./dL) 01/14/17 21:45 Ur Leukocyte Esterase Large Raj/uL (NEGATIVE) H 01/14/17 21:45 Urine RBC 20 - 25 /hpf (0-2) 01/14/17 21:45 Urine WBC Tntc /hpf (0-6) 01/14/17 21:45 Ur Epithelial Cells 3 - 4 /hpf (0-5) 01/14/17 21:45 Urine Bacteria Mod (NEG) 01/14/17 21:45 Urine Osmolality 313 mosm/kg (50-645) 01/15/17 00:40 Ur Random Creatinine 62 mg/dL 01/15/17 00:30 Ur Random Sodium 23 meq/L 01/15/17 00:40 Urine Chloride 43 mmol/L (32-290) 01/15/17 00:30 Attending/Attestation - Attestation I have personally seen and examined this patient.: Yes I have fully participated in the care of the patient.: Yes I have reviewed all pertinent clinical information, including history, physical exam and plan: Yes Notes (Text): 01/29/17 10:54 Patient was seen and examined with emergency medical service manager .Agreed with resident assessment and plan. 71 yrs old male with extensive past medical history that includes IDDM, hypertension, dyslipidemia, CVA, CHF (LVEF ~20%) with AICD placement , AAA s/p repair that was complicated by endoleak, ischemic colitis with right-sided hemicolectomy and ileostomy with rectal stump, stage IV CKD, BPH, LLE DVT, atrial fibrillation, COPD and prior history of multi-drug resistant klebsiella UTI is admitted with UTI, urine cultures are growing gram negative ty ,(grew K.Pneumonia resistant to most antibiotics). He is on Meropenem as per ID.He was also given one dose of Amikacin , Renal functions are at are line creatinin is around 2.5 . Patient will be transferred to TCU for completion of IV antibiotics and for rehabilitation. Management plan was discussed in detail with patient and family. Education was provided.
[2017-01-18] MEDS: Pantoprazole 40 mg EC Tab PO SCH (06:23)
[2017-01-18] MEDS: Insulin Lispro (humaLOG) LOW Coverage SC SCH ×3 (07:55→17:40)
[2017-01-18 10:21] LABS: HEMOGLOBIN 10.7 gm/dL (14.0-18.0); MEAN CELL VOLUME 77.6 fL (80.0-105.0); MEAN CORPUSCULAR HEMOGLOBIN 25.7 pg (25.0-35.0); MEAN CORPUSCULAR HGB CONC 33.1 g/dl (31.0-37.0); MEAN PLATELET VOLUME 10.6 fl (7.0-11.0); RBC 4.16 10^6/uL (3.5-6.1); RED CELL DISTRIBUTION WIDTH 15.4 % (11.5-14.5); WHITE BLOOD COUNT 7.4 10^3/ul (4.5-11.0)
[2017-01-18 10:27] LABS: INR 1.75 (0.93-1.08); PROTHROMBIN TIME 18.9 Seconds (9.9-11.8)
[2017-01-18 10:31] LABS: CALCIUM 8.8 mg/dL (8.4-10.5)
[2017-01-18] MEDS: Multivitamin Therapeutic Tab PO SCH (10:33)
[2017-01-18] MEDS: Calcium-Vit D 250 mg-125 Units Tab UD PO SCH (10:33)
[2017-01-18] MEDS: SACUBITRIL PO SCH ×2 (10:34→17:55)
[2017-01-18] MEDS: VALSARTAN PO SCH ×2 (10:34→17:55)
[2017-01-18] MEDS: Insulin Detemir 100 units/ml Vial (Levemir) SC SCH ×2 (10:34→21:43)
[2017-01-18] MEDS: DUTASTERIDE 0.5 MG PO SCH (10:35)
--- NOTE | 2017-01-18 11:21 | CP.PCM.PN ---
Subjective - Date & Time of Evaluation Date of Evaluation: 01/18/17 Time of Evaluation: 08:00 - Subjective Subjective: DOING WELL Objective - Vital Signs/Intake and Output Vital Signs (last 24 hours): Temp Pulse Resp BP Pulse Ox 97.9 F 109 H 20 127/90 95 01/18/17 06:00 01/18/17 10:33 01/18/17 06:00 01/18/17 10:33 01/18/17 06:00 Intake and Output: 01/18/17 01/18/17 06:59 18:59 Intake Total 300 300 Output Total 150 Balance 300 150 - Medications Medications: Current Medications Aspirin (Ecotrin) 81 mg PO DAILY [facility] Last Admin: 01/18/17 10:33 Dose: 81 mg Atorvastatin Calcium (Lipitor) 10 mg PO DAILY [facility] Last Admin: 01/18/17 10:33 Dose: 10 mg Calcium/Vitamin D (Oscal-D 250 Mg-125 Units Tab) 1 tab PO DAILY [facility] Last Admin: 01/18/17 10:33 Dose: 1 tab Carvedilol (Coreg) 12.5 mg PO BID [facility] Last Admin: 01/18/17 10:33 Dose: 12.5 mg Ferrous Sulfate (Feosol) 324 mg PO BID [facility] Last Admin: 01/18/17 10:33 Dose: 324 mg Furosemide (Lasix) 20 mg PO DAILY [facility] Last Admin: 01/18/17 10:33 Dose: 20 mg Meropenem 250 mg/ Sodium (Chloride) 100 mls @ 100 mls/hr IVPB Q12H [facility] PRN Reason: Protocol Stop: 01/24/17 10:01 Last Admin: 01/18/17 10:35 Dose: 100 mls/hr Insulin Detemir (Levemir) 5 unit SC Q12 [facility] Last Admin: 01/18/17 10:34 Dose: 5 unit Insulin Human Lispro (Humalog Low) 0 units SC ACHS [facility] PRN Reason: Protocol Last Admin: 01/17/17 22:17 Dose: Not Given Multivitamins (Thera Tab) 1 tab PO DAILY [facility] Last Admin: 01/18/17 10:33 Dose: 1 tab (Sacubitril/Valsartan [Entresto 24 Mg-26 Mg] Home Med 1 tab PO BID [facility] Last Admin: 01/18/17 10:34 Dose: 1 tab Dutasteride [ Dutasteride] 0.5mg Home Med 1 cap PO DAILY [facility] Last Admin: 01/18/17 10:35 Dose: 1 cap Pantoprazole Sodium (Protonix Ec Tab) 40 mg PO 0600 [facility] Last Admin: 01/18/17 06:23 Dose: 40 mg Tamsulosin HCl (Flomax) 0.4 mg PO DAILY [facility] Last Admin: 01/18/17 10:33 Dose: 0.4 mg Warfarin Sodium (Coumadin) 2 mg PO 1800 [facility] Last Admin: 01/17/17 17:52 Dose: 2 mg - Labs Labs: 01/18/17 10:00 01/18/17 10:00 PT 18.9 Seconds (9.9-11.8) H 01/18/17 10:00 INR 1.75 (0.93-1.08) H 01/18/17 10:00 APTT 40.6 Seconds (23.7-30.8) H 01/14/17 21:30 - Constitutional Appears: Well - Head Exam Head Exam: ATRAUMATIC, NORMAL INSPECTION, NORMOCEPHALIC - Eye Exam Eye Exam: EOMI, Normal appearance, PERRL Pupil Exam: NORMAL ACCOMODATION, PERRL - ENT Exam ENT Exam: Mucous Membranes Moist, Normal Exam - Neck Exam Neck Exam: Full ROM, Normal Inspection. absent: Lymphadenopathy - Respiratory Exam Respiratory Exam: Clear to Ausculation Bilateral, NORMAL BREATHING PATTERN - Cardiovascular Exam Cardiovascular Exam: REGULAR RHYTHM, +S1, +S2. absent: Murmur - GI/Abdominal Exam GI & Abdominal Exam: Soft, Normal Bowel Sounds. absent: Tenderness - Rectal Exam Rectal Exam: NORMAL INSPECTION - Exam Exam: Circumcision, NORMAL INSPECTION External exam: NORMAL EXTERNAL EXAM Speculum exam: NORMAL SPECULUM EXAM Bimanual exam: NORMAL BIMANUAL EXAM - Extremities Exam Extremities Exam: Full ROM, Normal Capillary Refill, Normal Inspection. absent : Joint Swelling, Pedal Edema - Back Exam Back Exam: NORMAL INSPECTION - Neurological Exam Neurological Exam: Alert, Awake, CN II-XII Intact, Normal Gait, Oriented x3 - Psychiatric Exam Psychiatric exam: Normal Affect, Normal Mood - Skin Skin Exam: Dry, Intact, Normal Color, Warm Assessment and Plan (1) Hematuria Status: Acute (2) UTI (urinary tract infection) Status: Acute (3) A-fib Status: Acute (4) Abdominal aneurysm Status: Acute (5) Abdominal pain Status: Acute (6) Acute respiratory failure requiring reintubation Status: Acute (7) Altered mental state Status: Acute (8) Anemia Status: Acute (9) Sepsis Status: Acute (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
--- NOTE | 2017-01-18 15:38 | CP.PCM.PN ---
<ALBERTO LOMAX - Last Filed: 01/18/17 15:38> Subjective - Date & Time of Evaluation Date of Evaluation: 01/18/17 Time of Evaluation: 09:40 - Subjective Subjective: Spoke with patient and today, and states that the patient sleeps all day at home and returns to the hospital about every month for the same urinary complaints and infection. states that pt has residual weakness from past stroke and needs help ambulating at home. Pt denies chest pain, palpitations, shortness of breath, fevers, n/v/d. Pt able to urinate but with slow stream. Objective - Vital Signs/Intake and Output Vital Signs (last 24 hours): Temp Pulse Resp BP Pulse Ox 97.9 F 109 H 20 127/90 95 01/18/17 06:00 01/18/17 10:33 01/18/17 06:00 01/18/17 10:33 01/18/17 06:00 Intake and Output: 01/18/17 01/18/17 06:59 18:59 Intake Total 300 300 Output Total 150 Balance 300 150 - Medications Medications: Current Medications Aspirin (Ecotrin) 81 mg PO DAILY [facility] Last Admin: 01/18/17 10:33 Dose: 81 mg Atorvastatin Calcium (Lipitor) 10 mg PO DAILY [facility] Last Admin: 01/18/17 10:33 Dose: 10 mg Calcium/Vitamin D (Oscal-D 250 Mg-125 Units Tab) 1 tab PO DAILY [facility] Last Admin: 01/18/17 10:33 Dose: 1 tab Carvedilol (Coreg) 12.5 mg PO BID [facility] Last Admin: 01/18/17 10:33 Dose: 12.5 mg Ferrous Sulfate (Feosol) 324 mg PO BID [facility] Last Admin: 01/18/17 10:33 Dose: 324 mg Furosemide (Lasix) 40 mg PO DAILY [facility] Meropenem 250 mg/ Sodium (Chloride) 100 mls @ 100 mls/hr IVPB Q12H [facility] PRN Reason: Protocol Stop: 01/24/17 10:01 Last Admin: 01/18/17 10:35 Dose: 100 mls/hr Insulin Detemir (Levemir) 5 unit SC Q12 [facility] Last Admin: 01/18/17 10:34 Dose: 5 unit Insulin Human Lispro (Humalog Low) 0 units SC ACHS [facility] PRN Reason: Protocol Last Admin: 01/17/17 22:17 Dose: Not Given Multivitamins (Thera Tab) 1 tab PO DAILY [facility] Last Admin: 01/18/17 10:33 Dose: 1 tab (Sacubitril/Valsartan [Entresto 24 Mg-26 Mg] Home Med 1 tab PO BID [facility] Last Admin: 01/18/17 10:34 Dose: 1 tab Dutasteride [ Dutasteride] 0.5mg Home Med 1 cap PO DAILY [facility] Last Admin: 01/18/17 10:35 Dose: 1 cap Pantoprazole Sodium (Protonix Ec Tab) 40 mg PO 0600 [facility] Last Admin: 01/18/17 06:23 Dose: 40 mg Tamsulosin HCl (Flomax) 0.4 mg PO DAILY [facility] Last Admin: 01/18/17 10:33 Dose: 0.4 mg Warfarin Sodium (Coumadin) 2 mg PO 1800 [facility] Last Admin: 01/17/17 17:52 Dose: 2 mg - Labs Labs: 01/18/17 10:00 01/18/17 10:00 PT 18.9 Seconds (9.9-11.8) H 01/18/17 10:00 INR 1.75 (0.93-1.08) H 01/18/17 10:00 APTT 40.6 Seconds (23.7-30.8) H 01/14/17 21:30 - Constitutional Appears: Well, No Acute Distress - Head Exam Head Exam: ATRAUMATIC, NORMOCEPHALIC - Eye Exam Eye Exam: EOMI, Normal appearance, PERRL - ENT Exam ENT Exam: Mucous Membranes Moist, Normal Exam - Respiratory Exam Respiratory Exam: Clear to Ausculation Bilateral, NORMAL BREATHING PATTERN. absent: Chest Wall Tenderness, Rales, Rhonchi, Wheezes - Cardiovascular Exam Cardiovascular Exam: RRR. absent: Gallop, Rubs, Murmur - GI/Abdominal Exam GI & Abdominal Exam: Firm, Normal Bowel Sounds. absent: Distended, Tenderness Additional comments: colostomy bag filled with brown soft stools - Neurological Exam Neurological Exam: Alert, Awake, Oriented x3 - Psychiatric Exam Psychiatric exam: Normal Affect, Normal Mood - Skin Skin Exam: Normal Color, Warm. absent: Cyanosis, Pallor Assessment and Plan - Assessment and Plan (Free Text) Assessment: Mr. Bebawi is a 71 yo M with extensive past medical history that includes IDDM, hypertension, dyslipidemia, CVA, CHF (LVEF ~20%) with AICD placement, AAA s/p repair that was complicated by endoleak, ischemic colitis with right-sided hemicolectomy and ileostomy with rectal stump, stage IV CKD, BPH, LLE DVT, atrial fibrillation, COPD and prior history of multi-drug resistant klebsiella UTI that presented c/o hematuria. 1. UTI 2/2 klebsiella 2. CHF 3. IDDM 4. HTN 5. HLD 6. CKD stage IV 7. BPH 8. A-fib Plan: 1. UTI 2/2 klebsiella - ID consulted and recommend finishing course of meropenem - urine culture sensitivities: sensitive only to Amikacin and Tigecycline 2. CHF - Lasix increased from 20mg to 40mg daily due to CXR - monitor I/O 3. IDDM - continue Levemir - trend FS - HHD 4. HTN - continue coreg 5. HLD - continue lipitor 10mg PO daily 6. CKD stage IV - continue enteresto - avoid nephrotoxins - monitor I/O 7. BPH - continue Tamsulosin 8. A-fib - continue coumadin - trend INR GI/DVT ppx: Diet: Case seen, discussed and full evaluated with attending, Dr. Maritza Lomax, PGY1 <Jaden Salas B - Last Filed: 01/19/17 16:20> Objective - Vital Signs/Intake and Output Vital Signs (last 24 hours): Temp Pulse Resp BP Pulse Ox 97.8 F 108 H 20 113/78 95 01/19/17 06:00 01/19/17 10:14 01/19/17 06:00 01/19/17 10:14 01/19/17 06:00 Intake and Output: 01/19/17 01/19/17 06:59 18:59 Intake Total 540 0 Output Total 900 Balance -360 0 - Labs Labs: 01/19/17 07:00 01/19/17 07:00 PT 20.2 Seconds (9.9-11.8) H 01/19/17 07:00 INR 1.87 (0.93-1.08) H 01/19/17 07:00 APTT 40.6 Seconds (23.7-30.8) H 01/14/17 21:30 Attending/Attestation - Attestation I have personally seen and examined this patient.: Yes I have fully participated in the care of the patient.: Yes I have reviewed all pertinent clinical information, including history, physical exam and plan: Yes Notes (Text): I have seen and examined the patient at bedside. 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 Klebsiella is sensitive only to Amikacin and Tigecycline. He is currently on meropenem. Will discuss with ID. Continue lasix , levemir, coreg, flomax, coumadin. Upon discharge patient will follow up with Dr Palacios. Dr aJden Salas
--- NOTE | 2017-01-18 15:46 | RAD ---
HISTORY: SOB COMPARISON: 01/14/2017 FINDINGS: LUNGS: No active pulmonary disease. PLEURA: No significant pleural effusion identified, no pneumothorax apparent. CARDIOVASCULAR: Normal heart size. AICD noted. OSSEOUS STRUCTURES: No significant abnormalities. VISUALIZED UPPER ABDOMEN: Normal. OTHER FINDINGS: None. IMPRESSION: No active disease.
--- NOTE | 2017-01-18 23:46 | CP.PCM.PN ---
Subjective - Date & Time of Evaluation Date of Evaluation: 01/18/17 Time of Evaluation: 15:15 - Subjective Subjective: Subjective: Awake, alert Comfortable No Dysuria, No SOB Physical Examination: Elderly male lying in bed Vital signs reviewed HEENT: NC, AT Neck: Supple, No JVD Lungs: bilateral equal air entry, no rales CVS: S1 S2 irregular, no murmur Abdomen: soft, non-tender, non-distended, BS + Ext: No edema Labs: Reviewed Meds: Reviewed Assesment and Plan: 1. [place] superimposed on CKD4, likely pre-renal, resolving 2. Resistant Klebsiella UTI 3. Hyponatremia, likely depletional, resolving 4. NIDDM 5. Hypertension 6. CHF 1. Continue IV Fluids 2. Push PO intake 3. Avoid Nephrotoxins 4. Limit use of aminoglycosides 5. Monitor UO Objective - Vital Signs/Intake and Output Vital Signs (last 24 hours): Temp Pulse Resp BP Pulse Ox 99.2 F 102 H 20 130/84 96 01/18/17 14:00 01/18/17 17:39 01/18/17 14:00 01/18/17 17:39 01/18/17 14:00 Intake and Output: 01/18/17 01/19/17 18:59 06:59 Intake Total 300 540 Output Total 150 900 Balance 150 -360 - Medications Medications: Current Medications Aspirin (Ecotrin) 81 mg PO DAILY [facility] Last Admin: 01/18/17 10:33 Dose: 81 mg Atorvastatin Calcium (Lipitor) 10 mg PO DAILY [facility] Last Admin: 01/18/17 10:33 Dose: 10 mg Calcium/Vitamin D (Oscal-D 250 Mg-125 Units Tab) 1 tab PO DAILY [facility] Last Admin: 01/18/17 10:33 Dose: 1 tab Carvedilol (Coreg) 12.5 mg PO BID [facility] Last Admin: 01/18/17 17:39 Dose: 12.5 mg Ferrous Sulfate (Feosol) 324 mg PO BID [facility] Last Admin: 01/18/17 17:39 Dose: 324 mg Furosemide (Lasix) 40 mg PO DAILY [facility] Meropenem 250 mg/ Sodium (Chloride) 100 mls @ 100 mls/hr IVPB Q12H [facility] PRN Reason: Protocol Stop: 01/24/17 10:01 Last Admin: 01/18/17 21:42 Dose: 100 mls/hr Insulin Detemir (Levemir) 5 unit SC Q12 [facility] Last Admin: 01/18/17 21:43 Dose: 5 unit Insulin Human Lispro (Humalog Low) 0 units SC ACHS [facility] PRN Reason: Protocol Last Admin: 01/18/17 17:40 Dose: 3 units Multivitamins (Thera Tab) 1 tab PO DAILY [facility] Last Admin: 01/18/17 10:33 Dose: 1 tab (Sacubitril/Valsartan [Entresto 24 Mg-26 Mg] Home Med 1 tab PO BID [facility] Last Admin: 01/18/17 17:55 Dose: 1 tab Dutasteride [ Dutasteride] 0.5mg Home Med 1 cap PO DAILY [facility] Last Admin: 01/18/17 10:35 Dose: 1 cap Pantoprazole Sodium (Protonix Ec Tab) 40 mg PO 0600 [facility] Last Admin: 01/18/17 06:23 Dose: 40 mg Tamsulosin HCl (Flomax) 0.4 mg PO DAILY [facility] Last Admin: 01/18/17 10:33 Dose: 0.4 mg Warfarin Sodium (Coumadin) 2 mg PO 1800 [facility] Last Admin: 01/18/17 17:39 Dose: 2 mg - Labs Labs: 01/18/17 10:00 01/18/17 10:00 PT 18.9 Seconds (9.9-11.8) H 01/18/17 10:00 INR 1.75 (0.93-1.08) H 01/18/17 10:00 APTT 40.6 Seconds (23.7-30.8) H 01/14/17 21:30
[2017-01-19] MEDS: Pantoprazole 40 mg EC Tab PO SCH (06:53)
[2017-01-19 07:45] LABS: HEMOGLOBIN 10.7 gm/dL (14.0-18.0); MEAN CELL VOLUME 77.2 fL (80.0-105.0); MEAN CORPUSCULAR HEMOGLOBIN 25.7 pg (25.0-35.0); MEAN CORPUSCULAR HGB CONC 33.3 g/dl (31.0-37.0); MEAN PLATELET VOLUME 10.3 fl (7.0-11.0); RBC 4.16 10^6/uL (3.5-6.1); RED CELL DISTRIBUTION WIDTH 15.3 % (11.5-14.5); WHITE BLOOD COUNT 7.2 10^3/ul (4.5-11.0)
[2017-01-19 07:47] LABS: INR 1.87 (0.93-1.08); PROTHROMBIN TIME 20.2 Seconds (9.9-11.8)
[2017-01-19 07:53] LABS: ALB/GLOB RATIO 0.8 (1.1-1.8); ALBUMIN 3.1 g/dL (3.0-4.8); CALCIUM 8.8 mg/dL (8.4-10.5)
[2017-01-19] MEDS: Insulin Lispro (humaLOG) LOW Coverage SC SCH ×2 (08:06→13:32)
[2017-01-19 08:44] VITALS: PULSE 108; TEMP 97.8; O2SAT 95
--- NOTE | 2017-01-19 09:01 | PQF GENQUE ---
This form is a permanent part of the medical record Clarification of your documentation is requested to better reflect the severity of illness and intensity of treatment of your patient. Indicators present 01/19 Your documentation of Acute resp failure requiring reintubation as Acute DX is not reflective of this admission. Please correct. Also was Sepsis POA or MDR Klebsiella UTI w/ hematuria principle reason for admission [] Specify: [] [] Specify: [] [] Specify: [] [] Specify: [] Location in the medical record that reflects the above clinical findings: []ID consult & recurring Progress notes Treatment Provided: [] PHYSICIAN'S RESPONSE Based on your medical judgment of the clinical indicators outlined above please clarify the following: [] Practitioner response [] If unable to determine, please check the box, sign and date. Present On Admission (POA) Indicator: [] Present at the time of admission [] Not present at the time of admission [] Clinically Undetermined In responding to this query, please exercise your independent professional judgment. The fact that a question is asked does not imply that any particular answer is desired or expected. Thank you for your clarification on this documentation. If you have any questions please call:[ ][phone] * Thank you, [ ]Rosaura Springer RN CDS ambulette driver [facility]
[2017-01-19] MEDS: Multivitamin Therapeutic Tab PO SCH (10:13)
[2017-01-19] MEDS: Calcium-Vit D 250 mg-125 Units Tab UD PO SCH (10:13)
[2017-01-19] MEDS: Insulin Detemir 100 units/ml Vial (Levemir) SC SCH (10:13)
[2017-01-19] MEDS: SACUBITRIL PO SCH (10:15)
[2017-01-19] MEDS: VALSARTAN PO SCH (10:15)
[2017-01-19] MEDS: DUTASTERIDE 0.5 MG PO SCH (10:15)
[2017-01-19 10:18] VITALS: BP 113/78
--- NOTE | 2017-01-19 12:27 | CP.PCM.PN ---
Subjective - Date & Time of Evaluation Date of Evaluation: 01/19/17 Time of Evaluation: 11:30 - Subjective Subjective: Comfortable in bed, afebrile. Objective - Vital Signs/Intake and Output Vital Signs (last 24 hours): Temp Pulse Resp BP Pulse Ox 97.8 F 108 H 20 113/77 95 01/19/17 06:00 01/19/17 06:00 01/19/17 06:00 01/19/17 06:00 01/19/17 06:00 Intake and Output: 01/19/17 01/19/17 06:59 18:59 Intake Total 540 0 Output Total 900 Balance -360 0 - Medications Medications: Current Medications Aspirin (Ecotrin) 81 mg PO DAILY [facility] Last Admin: 01/18/17 10:33 Dose: 81 mg Atorvastatin Calcium (Lipitor) 10 mg PO DAILY [facility] Last Admin: 01/18/17 10:33 Dose: 10 mg Calcium/Vitamin D (Oscal-D 250 Mg-125 Units Tab) 1 tab PO DAILY [facility] Last Admin: 01/18/17 10:33 Dose: 1 tab Carvedilol (Coreg) 12.5 mg PO BID [facility] Last Admin: 01/18/17 17:39 Dose: 12.5 mg Ferrous Sulfate (Feosol) 324 mg PO BID [facility] Last Admin: 01/18/17 17:39 Dose: 324 mg Furosemide (Lasix) 40 mg PO DAILY [facility] Meropenem 250 mg/ Sodium (Chloride) 100 mls @ 100 mls/hr IVPB Q12H [facility] PRN Reason: Protocol Stop: 01/24/17 10:01 Last Admin: 01/18/17 21:42 Dose: 100 mls/hr Insulin Detemir (Levemir) 5 unit SC Q12 [facility] Last Admin: 01/18/17 21:43 Dose: 5 unit Insulin Human Lispro (Humalog Low) 0 units SC ACHS [facility] PRN Reason: Protocol Last Admin: 01/19/17 08:06 Dose: 1 units Multivitamins (Thera Tab) 1 tab PO DAILY [facility] Last Admin: 01/18/17 10:33 Dose: 1 tab (Sacubitril/Valsartan [Entresto 24 Mg-26 Mg] Home Med 1 tab PO BID [facility] Last Admin: 01/18/17 17:55 Dose: 1 tab Dutasteride [ Dutasteride] 0.5mg Home Med 1 cap PO DAILY [facility] Last Admin: 01/18/17 10:35 Dose: 1 cap Pantoprazole Sodium (Protonix Ec Tab) 40 mg PO 0600 [facility] Last Admin: 01/19/17 06:53 Dose: 40 mg Tamsulosin HCl (Flomax) 0.4 mg PO DAILY [facility] Last Admin: 01/18/17 10:33 Dose: 0.4 mg Warfarin Sodium (Coumadin) 2 mg PO 1800 [facility] Last Admin: 01/18/17 17:39 Dose: 2 mg - Labs Labs: 01/19/17 07:00 01/19/17 07:00 PT 20.2 Seconds (9.9-11.8) H 01/19/17 07:00 INR 1.87 (0.93-1.08) H 01/19/17 07:00 APTT 40.6 Seconds (23.7-30.8) H 01/14/17 21:30 - Constitutional Appears: Non-toxic, No Acute Distress - Head Exam Head Exam: NORMAL INSPECTION - Neck Exam Neck Exam: absent: Meningismus - Respiratory Exam Respiratory Exam: Decreased Breath Sounds - Cardiovascular Exam Cardiovascular Exam: +S1, +S2 - GI/Abdominal Exam GI & Abdominal Exam: Soft. absent: Tenderness Assessment and Plan - Assessment and Plan (Free Text) Plan: Assessment Consider UTI with carbapenem-resistant Klebsiella history of ESBL-producing Klebsiella bacteremia, secondary to the port S/P removal S/P treatment for healthcare-associated pneumonia history of C diff associated diarrhea history of UTI with yeast history healthcare-associated pneumonia Severe cardiomyopathy with EF 10-15 % paroxysmal atrial fibrillation Coronary artery disease S/P stenting history of aortic aneurysm history of SVT S/P AICD placement S/P procedure on his prostate in 2012 S/P partial colectomy and colostomy Plan change Merrem to Avycaz pending sensitivities to Avycaz and will monitor clinically - should target at least 5-7 days of antibiotics
--- NOTE | 2017-01-19 14:14 | CP.PCM.DIS ---
<ALBERTO ESCALANTE - Last Filed: 01/19/17 14:32> Provider - Provider Date of Admission: 01/14/17 22:43 Attending physician: Jaden Salas MD Primary care physician: Dexter Palacios MD Time Spent in preparation of Discharge (in minutes): 45 Hospital Course - Lab Results Lab Results: Most Recent Lab Values WBC 7.2 10^3/ul (4.5-11.0) 01/19/17 07:00 RBC 4.16 10^6/uL (3.5-6.1) 01/19/17 07:00 Hgb 10.7 gm/dL (14.0-18.0) L 01/19/17 07:00 Hct 32.1 % (42.0-52.0) L 01/19/17 07:00 MCV 77.2 fL (80.0-105.0) L 01/19/17 07:00 MCH 25.7 pg (25.0-35.0) 01/19/17 07:00 MCHC 33.3 g/dl (31.0-37.0) 01/19/17 07:00 RDW 15.3 % (11.5-14.5) H 01/19/17 07:00 Plt Count 210 10^3/uL (120.0-450.0) 01/19/17 07:00 MPV 10.3 fl (7.0-11.0) 01/19/17 07:00 Gran % 74.3 % (50.0-68.0) H 01/17/17 07:00 Lymph % (Auto) 10.6 % (22.0-35.0) L 01/17/17 07:00 [place] % (Auto) 13.6 % (1.0-6.0) H 01/17/17 07:00 Eos % (Auto) 1.3 % (1.5-5.0) L 01/17/17 07:00 Baso % (Auto) 0.2 % (0.0-3.0) 01/17/17 07:00 Gran # 7.18 (1.4-6.5) H 01/17/17 07:00 Lymph # 1.0 (1.2-3.4) L 01/17/17 07:00 [place] # 1.3 (0.1-0.6) H 01/17/17 07:00 Eos # 0.1 (0.0-0.7) 01/17/17 07:00 Baso # 0.02 K/mm3 (0.0-2.0) 01/17/17 07:00 PT 20.2 Seconds (9.9-11.8) H 01/19/17 07:00 INR 1.87 (0.93-1.08) H 01/19/17 07:00 APTT 40.6 Seconds (23.7-30.8) H 01/14/17 21:30 pO2 35 mm/Hg (30-55) 01/14/17 21:30 VBG pH 7.27 (7.32-7.43) L 01/14/17 21:30 VBG pCO2 43.0 (40-60) 01/14/17 21:30 VBG HCO3 19.7 mmol/l (21-28) L 01/14/17 21:30 VBG Total CO2 21.0 mmol.L (22-28) L 01/14/17 21:30 VBG O2 Sat (Calc) 69.2 % (40-65) H 01/14/17 21:30 VBG Base Excess -7.0 mmol/L (0.0-2.0) L 01/14/17 21:30 VBG Potassium 5.5 mmol/L (3.6-5.2) H 01/14/17 21:30 Sodium 129.0 mmol/L (132-148) L 01/14/17 21:30 Chloride 102.0 mmol/L (98-107) 01/14/17 21:30 Glucose 256 mg/dl (75-110) H 01/14/17 21:30 Lactate 1.1 mmol/L (0.7-2.1) 01/14/17 21:30 FiO2 21.0 % 01/14/17 21:30 Sodium 133 mmol/L (132-148) 01/19/17 07:00 Potassium 4.6 mmol/L (3.6-5.0) 01/19/17 07:00 Chloride 107 mmol/L (95-110) 01/19/17 07:00 Carbon Dioxide 18 mmol/L (21-33) L 01/19/17 07:00 Anion Gap 13 (10-20) 01/19/17 07:00 BUN 54 mg/dL (7-21) H 01/19/17 07:00 Creatinine 2.5 mg/dL (0.5-1.4) H 01/19/17 07:00 Est GFR ( Amer) 31 01/19/17 07:00 Est GFR (Non-Af Amer) 25 01/19/17 07:00 POC Glucose (mg/dL) 290 mg/dL (65-110) H 01/19/17 11:13 Random Glucose 199 mg/dL (70-110) H 01/19/17 07:00 Serum Osmolality 299 mosm/kg (271-296) H 01/15/17 00:35 Calcium 8.8 mg/dL (8.4-10.5) 01/19/17 07:00 Phosphorus 3.8 mg/dL (2.5-4.5) 01/17/17 07:00 Magnesium 1.6 mg/dL (1.7-2.2) L 01/17/17 07:00 Total Bilirubin 0.4 mg/dL (0.2-1.3) 01/19/17 07:00 Direct Bilirubin 0.4 mg/dL (0.0-0.4) 01/15/17 07:00 AST 29 U/L (15-59) 01/19/17 07:00 ALT 27 U/L (7-56) 01/19/17 07:00 Alkaline Phosphatase 116 U/L (38-133) 01/19/17 07:00 Troponin I < 0.01 ng/mL D 01/14/17 21:30 Total Protein 6.8 g/dL (5.8-8.3) 01/19/17 07:00 Albumin 3.1 g/dL (3.0-4.8) 01/19/17 07:00 Globulin 3.7 gm/dL 01/19/17 07:00 Albumin/Globulin Ratio 0.8 (1.1-1.8) L 01/19/17 07:00 Procalcitonin 1.00 NG/ML (0.19-0.49) H 01/15/17 10:00 Venous Blood Potassium 5.5 mmol/L (3.6-5.2) H 01/14/17 21:30 Urine Color Dark yellow (YELLOW) 01/14/17 21:45 Urine Appearance Cloudy (CLEAR) 01/14/17 21:45 Urine pH 6.0 (4.7-8.0) 01/14/17 21:45 Ur Specific [place] 1.020 (1.005-1.035) 01/14/17 21:45 Urine Protein 100 mg/dL (<30 mg/dL) H 01/14/17 21:45 Urine Glucose (UA) 100 mg/dL (NEGATIVE) H 01/14/17 21:45 Urine Ketones Negative mg/dL (NEGATIVE) 01/14/17 21:45 Urine Blood Large (NEGATIVE) H 01/14/17 21:45 Urine Nitrate Negative (NEGATIVE) 01/14/17 21:45 Urine Bilirubin Negative (NEGATIVE) 01/14/17 21:45 Urine Urobilinogen 0.2 E.U./dL (<1 E.U./dL) 01/14/17 21:45 Ur Leukocyte Esterase Large Raj/uL (NEGATIVE) H 01/14/17 21:45 Urine RBC 20 - 25 /hpf (0-2) 01/14/17 21:45 Urine WBC Tntc /hpf (0-6) 01/14/17 21:45 Ur Epithelial Cells 3 - 4 /hpf (0-5) 01/14/17 21:45 Urine Bacteria Mod (NEG) 01/14/17 21:45 Urine Osmolality 313 mosm/kg (50-645) 01/15/17 00:40 Ur Random Creatinine 62 mg/dL 01/15/17 00:30 Ur Random Sodium 23 meq/L 01/15/17 00:40 Urine Chloride 43 mmol/L (32-290) 01/15/17 00:30 - Hospital Course Hospital Course: Mr. Weir is a 71yo male with extensive past medical history that includes IDDM , CHF (EF 20%) with AICD placement and history of home milrinone use, HTN, HLD, CVA, AAA s/p repair that was complicated by endoleak, ischemic colitis with right-sided hemicolectomy and ileostomy with rectal stump, CKD stage IV, BPH, LLE DVT, atrial fibrillation, COPD and prior history of multi-drug resistant klebsiella UTI that presents on 01/14/17 c/o hematuria. The patient presented with his who states that his hematuria had started that morning and was associated with fevers, chills and burning on urination. She reported having given him tylenol for relief of his fever. In the ED, the pt was given a dose of cefepime and continued on meropenem. Blood and urine cultures were sent. ID was consulted for a suspicion of UTI and Nephrology was consulted for CKD stage IV and hyponatremia. The pt's home coumadin (2mg) was continued. Blood cultures were negative. Urine culture grew Klebseilla pneumoniae susceptible to Amikacin and Tigecycline. The patient was given one dose of Amikacin 500mg, and continued on Meropenem per ID recommendations. The patient has been stabilizing and responding to the medication. The patient has been afebrile since 01/15/17 and WBC have been trending down. Pt has not had any new complaints, and states that his urine is clear but he has a weak stream. This morning, the patient had no complaints. Denied any pain on urination, blood in urine, chest pain, shortness of breath, n/v/d. The patient is to be transferred to TCU for further care and management. - Date & Time of H&P Date of H&P: 01/15/17 Time of H&P: 00:15 Discharge Exam - Head Exam Head Exam: ATRAUMATIC, NORMAL INSPECTION, NORMOCEPHALIC - Eye Exam Eye Exam: EOMI, Normal appearance, PERRL Pupil Exam: NORMAL ACCOMODATION - ENT Exam ENT Exam: Mucous Membranes Moist, Normal Exam - Respiratory Exam Respiratory Exam: Rales, NORMAL BREATHING PATTERN. absent: Chest Wall Tenderness, Rhonchi, Wheezes, Respiratory Distress - Cardiovascular Exam Cardiovascular Exam: RRR. absent: Gallop, JVD, Rubs - GI/Abdominal Exam GI & Abdominal Exam: Normal Bowel Sounds, Soft, Tenderness. absent: Rebound Additional comments: R sided colostomy bag in place, brown soft stools - Neurological Exam Neurological exam: Alert, Oriented x3 - Psychiatric Exam Psychiatric exam: Normal Affect, Normal Mood - Skin Skin Exam: Normal Color, Warm Discharge Plan - Follow Up Plan Condition: FAIR Disposition: TRANSF TO SNF Instructions: Urinary Tract Infection in Men (DC), Acute Hematuria (DC) Additional Instructions: Follow up care will be rendered on TCU, report given to Henok Clinton. Referrals: Dexter Palacios MD [Primary Care Provider] - <Jaden Salas - Last Filed: 01/19/17 17:12> Provider - Provider Date of Admission: 01/14/17 22:43 Attending physician: Jaden Salas MD Primary care physician: Dexter Palacios MD Hospital Course - Lab Results Lab Results: Most Recent Lab Values WBC 7.2 10^3/ul (4.5-11.0) 01/19/17 07:00 RBC 4.16 10^6/uL (3.5-6.1) 01/19/17 07:00 Hgb 10.7 gm/dL (14.0-18.0) L 01/19/17 07:00 Hct 32.1 % (42.0-52.0) L 01/19/17 07:00 MCV 77.2 fL (80.0-105.0) L 01/19/17 07:00 MCH 25.7 pg (25.0-35.0) 01/19/17 07:00 MCHC 33.3 g/dl (31.0-37.0) 01/19/17 07:00 RDW 15.3 % (11.5-14.5) H 01/19/17 07:00 Plt Count 210 10^3/uL (120.0-450.0) 01/19/17 07:00 MPV 10.3 fl (7.0-11.0) 01/19/17 07:00 Gran % 74.3 % (50.0-68.0) H 01/17/17 07:00 Lymph % (Auto) 10.6 % (22.0-35.0) L 01/17/17 07:00 [place] % (Auto) 13.6 % (1.0-6.0) H 01/17/17 07:00 Eos % (Auto) 1.3 % (1.5-5.0) L 01/17/17 07:00 Baso % (Auto) 0.2 % (0.0-3.0) 01/17/17 07:00 Gran # 7.18 (1.4-6.5) H 01/17/17 07:00 Lymph # 1.0 (1.2-3.4) L 01/17/17 07:00 [place] # 1.3 (0.1-0.6) H 01/17/17 07:00 Eos # 0.1 (0.0-0.7) 01/17/17 07:00 Baso # 0.02 K/mm3 (0.0-2.0) 01/17/17 07:00 PT 20.2 Seconds (9.9-11.8) H 01/19/17 07:00 INR 1.87 (0.93-1.08) H 01/19/17 07:00 APTT 40.6 Seconds (23.7-30.8) H 01/14/17 21:30 pO2 35 mm/Hg (30-55) 01/14/17 21:30 VBG pH 7.27 (7.32-7.43) L 01/14/17 21:30 VBG pCO2 43.0 (40-60) 01/14/17 21:30 VBG HCO3 19.7 mmol/l (21-28) L 01/14/17 21:30 VBG Total CO2 21.0 mmol.L (22-28) L 01/14/17 21:30 VBG O2 Sat (Calc) 69.2 % (40-65) H 01/14/17 21:30 VBG Base Excess -7.0 mmol/L (0.0-2.0) L 01/14/17 21:30 VBG Potassium 5.5 mmol/L (3.6-5.2) H 01/14/17 21:30 Sodium 129.0 mmol/L (132-148) L 01/14/17 21:30 Chloride 102.0 mmol/L (98-107) 01/14/17 21:30 Glucose 256 mg/dl (75-110) H 01/14/17 21:30 Lactate 1.1 mmol/L (0.7-2.1) 01/14/17 21:30 FiO2 21.0 % 01/14/17 21:30 Sodium 133 mmol/L (132-148) 01/19/17 07:00 Potassium 4.6 mmol/L (3.6-5.0) 01/19/17 07:00 Chloride 107 mmol/L (95-110) 01/19/17 07:00 Carbon Dioxide 18 mmol/L (21-33) L 01/19/17 07:00 Anion Gap 13 (10-20) 01/19/17 07:00 BUN 54 mg/dL (7-21) H 01/19/17 07:00 Creatinine 2.5 mg/dL (0.5-1.4) H 01/19/17 07:00 Est GFR ( Amer) 31 01/19/17 07:00 Est GFR (Non-Af Amer) 25 01/19/17 07:00 POC Glucose (mg/dL) 290 mg/dL (65-110) H 01/19/17 11:13 Random Glucose 199 mg/dL (70-110) H 01/19/17 07:00 Serum Osmolality 299 mosm/kg (271-296) H 01/15/17 00:35 Calcium 8.8 mg/dL (8.4-10.5) 01/19/17 07:00 Phosphorus 3.8 mg/dL (2.5-4.5) 01/17/17 07:00 Magnesium 1.6 mg/dL (1.7-2.2) L 01/17/17 07:00 Total Bilirubin 0.4 mg/dL (0.2-1.3) 01/19/17 07:00 Direct Bilirubin 0.4 mg/dL (0.0-0.4) 01/15/17 07:00 AST 29 U/L (15-59) 01/19/17 07:00 ALT 27 U/L (7-56) 01/19/17 07:00 Alkaline Phosphatase 116 U/L (38-133) 01/19/17 07:00 Troponin I < 0.01 ng/mL D 01/14/17 21:30 Total Protein 6.8 g/dL (5.8-8.3) 01/19/17 07:00 Albumin 3.1 g/dL (3.0-4.8) 01/19/17 07:00 Globulin 3.7 gm/dL 01/19/17 07:00 Albumin/Globulin Ratio 0.8 (1.1-1.8) L 01/19/17 07:00 Procalcitonin 1.00 NG/ML (0.19-0.49) H 01/15/17 10:00 Venous Blood Potassium 5.5 mmol/L (3.6-5.2) H 01/14/17 21:30 Urine Color Dark yellow (YELLOW) 01/14/17 21:45 Urine Appearance Cloudy (CLEAR) 01/14/17 21:45 Urine pH 6.0 (4.7-8.0) 01/14/17 21:45 Ur Specific [place] 1.020 (1.005-1.035) 01/14/17 21:45 Urine Protein 100 mg/dL (<30 mg/dL) H 01/14/17 21:45 Urine Glucose (UA) 100 mg/dL (NEGATIVE) H 01/14/17 21:45 Urine Ketones Negative mg/dL (NEGATIVE) 01/14/17 21:45 Urine Blood Large (NEGATIVE) H 01/14/17 21:45 Urine Nitrate Negative (NEGATIVE) 01/14/17 21:45 Urine Bilirubin Negative (NEGATIVE) 01/14/17 21:45 Urine Urobilinogen 0.2 E.U./dL (<1 E.U./dL) 01/14/17 21:45 Ur Leukocyte Esterase Large Raj/uL (NEGATIVE) H 01/14/17 21:45 Urine RBC 20 - 25 /hpf (0-2) 01/14/17 21:45 Urine WBC Tntc /hpf (0-6) 01/14/17 21:45 Ur Epithelial Cells 3 - 4 /hpf (0-5) 01/14/17 21:45 Urine Bacteria Mod (NEG) 01/14/17 21:45 Urine Osmolality 313 mosm/kg (50-645) 01/15/17 00:40 Ur Random Creatinine 62 mg/dL 01/15/17 00:30 Ur Random Sodium 23 meq/L 01/15/17 00:40 Urine Chloride 43 mmol/L (32-290) 01/15/17 00:30 Attending/Attestation - Attestation I have personally seen and examined this patient.: Yes I have fully participated in the care of the patient.: Yes I have reviewed all pertinent clinical information, including history, physical exam and plan: Yes Notes (Text): I have seen and examined the patient at bedside. 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 Meropenem changed to avycaz. Continue lasix, levemir , coreg, flomax, coumadin. Upon discharge patient will follow up with Dr Palacios. Patient will be discharged to TCU. Dr Jaden Salas
--- NOTE | 2017-01-19 18:19 | CP.PCM.PN ---
Subjective - Date & Time of Evaluation Date of Evaluation: 01/19/17 Time of Evaluation: 15:30 - Subjective Subjective: Subjective: Awake, alert Comfortable No Dysuria, No SOB Physical Examination: Elderly male lying in bed Vital signs reviewed HEENT: NC, AT Neck: Supple, No JVD Lungs: bilateral equal air entry, no rales CVS: S1 S2 irregular, no murmur Abdomen: soft, non-tender, non-distended, BS + Ext: No edema Labs: Reviewed Meds: Reviewed Assesment and Plan: 1. [place] superimposed on CKD4, likely pre-renal, resolving 2. Resistant Klebsiella UTI 3. Hyponatremia, likely depletional, resolving 4. NIDDM 5. Hypertension 6. CHF 1. Continue IV Fluids 2. Push PO intake 3. Avoid Nephrotoxins 4. Limit use of aminoglycosides 5. Monitor UO Objective - Vital Signs/Intake and Output Vital Signs (last 24 hours): Temp Pulse Resp BP Pulse Ox 97.8 F 108 H 20 113/78 95 01/19/17 06:00 01/19/17 10:14 01/19/17 06:00 01/19/17 10:14 01/19/17 06:00 Intake and Output: 01/19/17 01/19/17 06:59 18:59 Intake Total 540 0 Output Total 900 Balance -360 0 - Labs Labs: 01/19/17 07:00 01/19/17 07:00 PT 20.2 Seconds (9.9-11.8) H 01/19/17 07:00 INR 1.87 (0.93-1.08) H 01/19/17 07:00 APTT 40.6 Seconds (23.7-30.8) H 01/14/17 21:30
== END 2017-01-19 14:26 | DRG 683 ==
LOC: ED 20:30 → ERH 22:43 → 3RNO 01-15 01:06
PROVIDERS: ADMIT Internal Medicine; ATTEND Hospitalist
DX: N17.9 Acute kidney failure, unspecified (principal); I42.9 Cardiomyopathy, unspecified; I13.0 Hypertensive heart and chronic kidney disease with heart failure and stage 1 through stage 4 chronic kidney disease, or unspecified chronic kidney disease; E10.22 Type 1 diabetes mellitus with diabetic chronic kidney disease; I50.9 Heart failure, unspecified; N39.0 Urinary tract infection, site not specified; E87.1 Hypo-osmolality and hyponatremia; N18.4 Chronic kidney disease, stage 4 (severe); I48.0 Paroxysmal atrial fibrillation; B96.1 Klebsiella pneumoniae [K. pneumoniae] as the cause of diseases classified elsewhere; E78.5 Hyperlipidemia, unspecified; D64.9 Anemia, unspecified; I71.4 Abdominal aortic aneurysm, without rupture; N40.1 Benign prostatic hyperplasia with lower urinary tract symptoms; I25.10 Atherosclerotic heart disease of native coronary artery without angina pectoris; Z95.5 Presence of coronary angioplasty implant and graft; Z86.73 Personal history of transient ischemic attack (TIA), and cerebral infarction without residual deficits; Z79.4 Long term (current) use of insulin; Z87.891 Personal history of nicotine dependence; Z95.810 Presence of automatic (implantable) cardiac defibrillator

== ENCOUNTER 2017-01-19 14:29 | Inpatient (IN) | payer OTHER, MEDICAID ==
[2017-01-19] MEDS: Insulin Lispro (humaLOG) LOW Coverage SC SCH ×2 (18:22→22:32)
[2017-01-19] MEDS: Insulin Detemir 100 units/ml Vial (Levemir) SC SCH (22:32)
[2017-01-19 23:01] VITALS: BMI 24.9
[2017-01-20] MEDS: Pantoprazole 40 mg EC Tab PO SCH (05:59)
[2017-01-20] MEDS: Insulin Lispro (humaLOG) LOW Coverage SC SCH ×4 (06:44→21:49)
[2017-01-20 07:13] LABS: INR 2.14 (0.93-1.08); PROTHROMBIN TIME 23.1 Seconds (9.9-11.8)
[2017-01-20 07:15] LABS: HEMOGLOBIN 10.7 gm/dL (14.0-18.0); MEAN CELL VOLUME 77.5 fL (80.0-105.0); MEAN CORPUSCULAR HEMOGLOBIN 25.7 pg (25.0-35.0); MEAN CORPUSCULAR HGB CONC 33.1 g/dl (31.0-37.0); MEAN PLATELET VOLUME 10.4 fl (7.0-11.0); RBC 4.17 10^6/uL (3.5-6.1); RED CELL DISTRIBUTION WIDTH 15.2 % (11.5-14.5); WHITE BLOOD COUNT 7.7 10^3/ul (4.5-11.0)
[2017-01-20 07:25] LABS: ALB/GLOB RATIO 0.8 (1.1-1.8); ALBUMIN 3.1 g/dL (3.0-4.8); CALCIUM 8.8 mg/dL (8.4-10.5)
[2017-01-20] MEDS: SACUBITRIL PO SCH ×3 (07:32→17:48)
[2017-01-20] MEDS: VALSARTAN PO SCH ×3 (07:32→17:48)
[2017-01-20] MEDS: Multivitamin Therapeutic Tab PO SCH (09:21)
[2017-01-20] MEDS: Calcium-Vit D 250 mg-125 Units Tab UD PO SCH (09:21)
[2017-01-20] MEDS: DUTASTERIDE PO SCH (09:22)
[2017-01-20] MEDS: Insulin Detemir 100 units/ml Vial (Levemir) SC SCH ×2 (09:22→21:52)
--- NOTE | 2017-01-20 10:19 | CP.PCM.CON ---
History of Present Illness - History of Present Illness History of Present Illness: Reason for consultation: [place], superimposed on CKD, polyuria HPI: 71 yr old male with history of NIDDM, HTN, HLD, CVA, CHF, decreased EF, history of multi-drug resistant Klebsiella UTI, stage 4 CKD, was admitted with hematuria, fever, chills, burning in urine. Found to have MRD Klebsiella, treated with Meropenem and 1 dose Amikacin. Now in TRCU for rehab. No chest pain , shortness of breath, no abdominal pain, no N/V Past medical surgical history: As mentioned above Allergies: NKDA Social History: No alcohol abuse, no smoking, no drugs Family History: NC Review of Systems: All systems reviewed, positives mentioned above, rest unremarkable Physical Examination: Elderly male lying in bed Vital signs reviewed HEENT: NC, AT Neck: Supple, No JVD Lungs: bilateral equal air entry, no rales CVS: S1 S2 irregular, no murmur Abdomen: soft, non-tender, non-distended, BS + Ext: No edema Labs: Reviewed Meds: Reviewed Assesment and Plan: 1. 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 Resistant Klebsiella UTI, on Fortaz now 3. Hyponatremia, likely depletional 4. NIDDM 5. Hypertension 6. CHF 1. Hold Lasix 2. Push PO intake 3. Avoid Nephrotoxins 4.Repeat UA/U c/s Thank you for the courtesy of this consultation, will follow closely Past Patient History - Infectious Disease Hx of Infectious Diseases: None, ESL - Tetanus Immunizations Tetanus Immunization: Unknown - Past Medical History & Family History Past Medical History?: Yes - Past Social History Smoking Status: Former Smoker - CARDIAC Hx Congestive Heart Failure: Yes (LVEF ~ 20% with AICD placement) Hx Hypercholesterolemia: Yes Hx Hypertension: Yes - PULMONARY Hx Chronic Obstructive Pulmonary Disease (COPD): Yes - NEUROLOGICAL HX Cerebrovascular Accident: Yes - HEENT Hx HEENT Problems: Yes Hx Cataracts: Yes - RENAL Hx Chronic Kidney Disease: Yes (Renal insufficinecy) - ENDOCRINE/METABOLIC Hx Diabetes Mellitus Type 1: Yes - HEMATOLOGICAL/ONCOLOGICAL Hx Blood Disorders: Yes Hx Anemia: Yes - INTEGUMENTARY Hx Dermatological Problems: No - MUSCULOSKELETAL/RHEUMATOLOGICAL Hx Falls: Yes (past) - GASTROINTESTINAL Hx Gastrointestinal Disorders: (colostomy functioning) - GENITOURINARY/GYNECOLOGICAL Hx Reproductive Disorders: Yes - PSYCHIATRIC Hx Emotional Abuse: No Hx Physical Abuse: No Hx Substance Use: No - SURGICAL HISTORY Other/Comment: Colostomy, Rside - ANESTHESIA Hx Anesthesia: Yes Hx Anesthesia Reactions: No Hx Malignant Hyperthermia: No Meds Allergies/Adverse Reactions: Allergies Allergy/AdvReac Type Severity Reaction Status Date / Time No Known Allergies Allergy Verified 01/14/17 20:34 - Medications Medications: Current Medications Aspirin (Ecotrin) 81 mg PO 0800 [facility] PRN Reason: Protocol Last Admin: 01/20/17 08:11 Dose: 81 mg Atorvastatin Calcium (Lipitor) 10 mg PO 1800 [facility] PRN Reason: Protocol Calcium/Vitamin D (Oscal-D 250 Mg-125 Units Tab) 1 tab PO DAILY ANTHONY PRN Reason: Protocol Last Admin: 01/20/17 09:21 Dose: 1 tab Carvedilol (Coreg) 12.5 mg PO 0800,1800 [facility] PRN Reason: Protocol Last Admin: 01/20/17 08:11 Dose: 12.5 mg Ferrous Sulfate (Feosol) 324 mg PO 0800,1800 [facility] PRN Reason: Protocol Last Admin: 01/20/17 08:11 Dose: 324 mg Furosemide (Lasix) 40 mg PO DAILY [facility]TH[facility]Y PRN Reason: Protocol Last Admin: 01/20/17 09:21 Dose: 40 mg Ceftazidime/Avibactam 0.94 gm/ (Sodium Chloride) 100 mls @ 50 mls/hr IV 0600, 1800 [facility] Last Admin: 01/20/17 05:59 Dose: 50 mls/hr Insulin Detemir (Levemir) 5 unit SC 1000,2200 [facility] PRN Reason: Protocol Last Admin: 01/20/17 09:22 Dose: 5 unit Insulin Human Lispro (Humalog Low) 0 units SC ACHS [facility] PRN Reason: Protocol Last Admin: 01/20/17 06:44 Dose: 3 units Multivitamins (Thera Tab) 1 tab PO DAILY [facility] Last Admin: 01/20/17 09:21 Dose: 1 tab Non-Formulary Medication (Dutasteride [Dutasteride]) 1 cap PO DAILY [facility] Last Admin: 01/20/17 09:22 Dose: 1 cap Non-Formulary Medication (Sacubitril/Valsartan [Entresto 24 Mg-26 Mg Tablet]) 1 tab PO BID [facility] Last Admin: 01/20/17 09:23 Dose: 1 tab Pantoprazole Sodium (Protonix Ec Tab) 40 mg PO 0630 [facility] PRN Reason: Protocol Last Admin: 01/20/17 05:59 Dose: 40 mg Tamsulosin HCl (Flomax) 0.4 mg PO 1800 [facility] PRN Reason: Protocol Last Admin: 01/19/17 18:22 Dose: 0.4 mg Warfarin Sodium (Coumadin) 2 mg PO 1800 AN[facility]Y PRN Reason: Protocol Last Admin: 01/19/17 18:19 Dose: 2 mg Results - Vital Signs Recent Vital Signs: Last Vital Signs Temp 97.6 F 01/19/17 22:53 Pulse 91 H 01/19/17 22:53 Resp 18 01/19/17 22:53 BP 107/72 01/20/17 09:21 Pulse Ox 97 01/19/17 16:15 - Labs Result Diagrams: 01/20/17 06:20 01/20/17 06:20 Labs: Laboratory Results - last 24 hr 01/19/17 01/19/17 01/20/17 16:30 21:34 05:10 WBC RBC Hgb Hct MCV MCH MCHC RDW Plt Count MPV PT INR Sodium Potassium Chloride Carbon Dioxide Anion Gap BUN Creatinine Est GFR ( Amer) Est GFR (Non-Af Amer) POC Glucose (mg/dL) 280 H 261 H 176 H Random Glucose Calcium Total Bilirubin AST ALT Alkaline Phosphatase Total Protein Albumin Globulin Albumin/Globulin Ratio 01/20/17 01/20/17 01/20/17 06:20 06:20 06:20 WBC 7.7 RBC 4.17 Hgb 10.7 L Hct 32.3 L MCV 77.5 L MCH 25.7 MCHC 33.1 RDW 15.2 H Plt Count 232 MPV 10.4 PT 23.1 H INR 2.14 H Sodium 137 Potassium 4.7 Chloride 109 H Carbon Dioxide 19 L Anion Gap 14 BUN 60 H Creatinine 2.5 H Est GFR ( Amer) 31 Est GFR (Non-Af Amer) 25 POC Glucose (mg/dL) Random Glucose 169 H Calcium 8.8 Total Bilirubin 0.4 AST 31 ALT 30 Alkaline Phosphatase 114 Total Protein 6.9 Albumin 3.1 Globulin 3.8 Albumin/Globulin Ratio 0.8 L
--- NOTE | 2017-01-20 10:40 | CP.PCM.CON ---
History of Present Illness - History of Present Illness History of Present Illness: 71 year old male with PMH of healthcare-associated pneumonia, Severe cardiomyopathy with EF 10-15 %, paroxysmal atrial fibrillation, Coronary artery disease S/P stenting, history of aortic aneurysm, history of SVT, S/P AICD placement, S/P procedure on his prostate in 2013, S/P partial colectomy and colostomy was initially admitted in [facility] because of weakness and fever. He was eventually found to have UTI with carbapenem-resistant Klebsiella and is currently on treatment for this with antibiotics. He is now transferred to [facility] for continued medical therapy and physical rehabilitation. Infectious diseases consult is requested to continue his antibiotic therapy. Currently the patient is complaining of occasional left sided abdominal pain and suprapubic pain, although the patient states those have improved since admission. He denies fever or chills, no cough or colds currently, no chest pain , no SOB at rest, no no headache or dizziness, no diarrhea, no dysuria currently. Review of Systems - Review of Systems All systems: reviewed and no additional remarkable complaints except (as per HPI ) Past Patient History - Infectious Disease Hx of Infectious Diseases: None, ESL - Tetanus Immunizations Tetanus Immunization: Unknown - Past Medical History & Family History Past Medical History?: Yes - Past Social History Smoking Status: Former Smoker - CARDIAC Hx Congestive Heart Failure: Yes (LVEF ~ 20% with AICD placement) Hx Hypercholesterolemia: Yes Hx Hypertension: Yes - PULMONARY Hx Chronic Obstructive Pulmonary Disease (COPD): Yes - NEUROLOGICAL HX Cerebrovascular Accident: Yes - HEENT Hx HEENT Problems: Yes Hx Cataracts: Yes - RENAL Hx Chronic Kidney Disease: Yes (Renal insufficinecy) - ENDOCRINE/METABOLIC Hx Diabetes Mellitus Type 1: Yes - HEMATOLOGICAL/ONCOLOGICAL Hx Blood Disorders: Yes Hx Anemia: Yes - INTEGUMENTARY Hx Dermatological Problems: No - MUSCULOSKELETAL/RHEUMATOLOGICAL Hx Musculoskeletal Disorders: Yes Hx Falls: Yes - GASTROINTESTINAL Hx Gastrointestinal Disorders: Yes (BOWEL OBSTRUCTION) Hx Colostomy: Yes - GENITOURINARY/GYNECOLOGICAL Hx Genitourinary Disorders: Yes Hx Prostate Problems: Yes (BPH) - PSYCHIATRIC Hx Emotional Abuse: No Hx Physical Abuse: No Hx Substance Use: No - SURGICAL HISTORY Other/Comment: Colostomy, Rside - ANESTHESIA Hx Anesthesia: Yes Hx Anesthesia Reactions: No Hx Malignant Hyperthermia: No Meds Allergies/Adverse Reactions: Allergies Allergy/AdvReac Type Severity Reaction Status Date / Time No Known Allergies Allergy Verified 01/14/17 20:34 - Medications Medications: Current Medications Aspirin (Ecotrin) 81 mg PO 0800 ANTHONY PRN Reason: Protocol Atorvastatin Calcium (Lipitor) 10 mg PO 1800 ANTHONY PRN Reason: Protocol Calcium/Vitamin D (Oscal-D 250 Mg-125 Units Tab) 1 tab PO DAILY ANTHONY PRN Reason: Protocol Carvedilol (Coreg) 12.5 mg PO 0800,1800 ANTHONY PRN Reason: Protocol Ferrous Sulfate (Feosol) 324 mg PO 0800,1800 ANTHONY PRN Reason: Protocol Furosemide (Lasix) 40 mg PO DAILY ANTHONY PRN Reason: Protocol Ceftazidime/Avibactam 0.94 gm/ (Sodium Chloride) 100 mls @ 50 mls/hr IV Q12H [facility] Insulin Detemir (Levemir) 5 unit SC 1000,2200 ANTHONY PRN Reason: Protocol Insulin Human Lispro (Humalog Low) 0 units SC ACHS ANTHONY PRN Reason: Protocol Multivitamins (Thera Tab) 1 tab PO DAILY [facility] Non-Formulary Medication (Dutasteride [Dutasteride]) 1 cap PO DAILY [facility] Non-Formulary Medication (Sacubitril/Valsartan [Entresto 24 Mg-26 Mg Tablet]) 1 tab PO BID ANTHONY Pantoprazole Sodium (Protonix Ec Tab) 40 mg PO 0630 ANTHONY PRN Reason: Protocol Tamsulosin HCl (Flomax) 0.4 mg PO 1800 ANTHONY PRN Reason: Protocol Warfarin Sodium (Coumadin) 2 mg PO 1800 ANTHONY PRN Reason: Protocol Physical Exam - Constitutional Appears: Non-toxic, No Acute Distress - Head Exam Head Exam: NORMAL INSPECTION - ENT Exam ENT Exam: Mucous Membranes Moist - Neck Exam Neck exam: Negative for: Lymphadenopathy, Meningismus - Respiratory Exam Respiratory Exam: Decreased Breath Sounds - Cardiovascular Exam Cardiovascular Exam: +S1, +S2 - GI/Abdominal Exam GI & Abdominal Exam: Soft. absent: Tenderness Additional comments: right sided colostomy in place Results - Vital Signs Recent Vital Signs: Last Vital Signs Temp 97.6 F 01/19/17 16:15 Pulse 91 H 01/19/17 16:15 Resp 18 01/19/17 16:15 BP 117/72 01/19/17 16:15 Pulse Ox 97 01/19/17 16:15 - Labs Result Diagrams: 01/20/17 06:20 01/20/17 06:20 Assessment & Plan - Assessment and Plan (Free Text) Plan: Assessment Consider UTI with carbapenem-resistant Klebsiella history of ESBL-producing Klebsiella bacteremia, secondary to the port S/P removal S/P treatment for healthcare-associated pneumonia history of C diff associated diarrhea history of UTI with yeast history healthcare-associated pneumonia Severe cardiomyopathy with EF 10-15 % paroxysmal atrial fibrillation Coronary artery disease S/P stenting history of aortic aneurysm history of SVT S/P AICD placement S/P procedure on his prostate in 2012 S/P partial colectomy and colostomy Plan continue Avycaz (day 2) pending sensitivities to Avycaz and will monitor clinically - should target at least 5-7 days of antibiotics
[2017-01-20 14:36] LABS: URINE BILIRUBIN NEGATIVE (NEGATIVE); URINE BLOOD MODERATE (NEGATIVE); URINE GLUCOSE (UA) NEGATIVE (NEGATIVE); URINE LEUKOCYTE ESTERASE MODERATE Leu/uL (NEGATIVE); URINE NITRATE NEGATIVE (NEGATIVE); URINE PROTEIN 100 mg/dL (<30 mg/dL); URINE UROBILINOGEN 0.2 E.U./dL (<1 E.U./dL)
[2017-01-20 14:52] LABS: URINE APPEARANCE SL CLOUDY (CLEAR); URINE COLOR YELLOW (YELLOW)
[2017-01-20 14:53] LABS: URINE BACTERIA FEW (NEG); URINE EPITHELIAL CELLS 0 - 2 /hpf (0-5); URINE WBC 20 - 25 /hpf (0-6)
--- NOTE | 2017-01-20 23:47 | CP.PCM.HP ---
<ALBERTO ESCALANTE - Last Filed: 01/20/17 23:39> History of Present Illness - History of Present Illness History of Present Illness: Mr. Weir is a 71yo male with extensive past medical history that includes IDDM , CHF (EF 20%) with AICD placement and history of home milrinone use, HTN, HLD, CVA, AAA s/p repair that was complicated by endoleak, ischemic colitis with right-sided hemicolectomy and ileostomy with rectal stump, CKD stage IV, BPH, LLE DVT, atrial fibrillation, COPD and prior history of multi-drug resistant klebsiella UTI that presented on 01/14/17 c/o hematuria. The patient presented with his who states that his hematuria had started that morning and was associated with fevers, chills and burning on urination. She reported having given him tylenol for relief of his fever. In the ED, the pt was given a dose of cefepime and continued on meropenem. Blood and urine cultures were sent. ID was consulted for a suspicion of UTI and Nephrology was consulted for CKD stage IV and hyponatremia. The pt's home coumadin (2mg) was continued. Blood cultures were negative. Urine culture grew Klebseilla pneumoniae susceptible to Amikacin and Tigecycline. The patient was given one dose of Amikacin 500mg, and continued on Meropenem per ID recommendations. The patient has been stabilizing and responding to the medication. The patient has been afebrile since 01/15/17 and WBC have been trending down. Pt has not had any new complaints, and states that his urine is clear but he has a weak stream. Per ID, Meropenem changed to avycaz. Continue lasix, levemir, coreg, flomax, coumadin. Upon discharge patient will follow up with Dr Palacios. The patient is to be transferred to TCU for further care and management. PMH: IDDM, CHF (EF 20%) with AICD placement and history of home milrinone use, HTN, HLD, CVA, CKD stage IV, BPH, LLE DVT, atrial fibrillation, COPD and prior history of multi-drug resistant klebsiella UTI, Lung CA s/p radiation (pt not aware of this condition, but is and she doesn't wish for him to know because of how he negatively he might respond to knowing his condition). PSH: pacemaker, hx of chest wall port; AAA s/p repair that was complicated by endoleak,; ischemic colitis with right-sided hemicolectomy and ileostomy with rectal stump Social Hx: Past smoker, Denies alcohol, and illicit drug use; lives with his ; Born [place] Family Hx: Noncontributory PMD: Dr. Palacios Allergies: NKDA Present on Admission - Present on Admission Any Indicators Present on Admission: Yes History of DVT/PE: Yes History of Uncontrolled Diabetes: Yes Review of Systems - Constitutional Constitutional: absent: Anorexia, Chills, Excessive Sweating, Fever, Headache, Malaise, Night Sweats, Weight Loss - EENT Eyes: absent: Change in Vision - Cardiovascular Cardiovascular: absent: Chest Pain, Dyspnea, Leg Edema, Syncope - Respiratory Respiratory: Cough. absent: Dyspnea, Hemoptysis, Stridor - Gastrointestinal Gastrointestinal: absent: Change in Bowel Habits, Change in Stool Character, Constipation, Diarrhea, Hematemesis, Hematochezia, Odynophagia - Genitourinary Genitourinary: Difficulty Urinating. absent: Dysuria, Flank Pain, Hematuria - Neurological Neurological: absent: Abnormal Hearing, Memory Loss, Paresthesias Past Patient History - Infectious Disease Hx of Infectious Diseases: None, ESL - Tetanus Immunizations Tetanus Immunization: Unknown - Past Medical History & Family History Past Medical History?: Yes - Past Social History Smoking Status: Former Smoker Alcohol: None Drugs: Denies Home Situation {Lives}: With Family - CARDIAC Hx Atrial Fibrillation: Yes Hx Congestive Heart Failure: Yes (LVEF ~ 20% with AICD placement) Hx Hypercholesterolemia: Yes Hx Hypertension: Yes - PULMONARY Hx Chronic Obstructive Pulmonary Disease (COPD): Yes - NEUROLOGICAL HX Cerebrovascular Accident: Yes - HEENT Hx HEENT Problems: Yes Hx Cataracts: Yes - RENAL Hx Chronic Kidney Disease: Yes (Renal insufficinecy) Hx Dialysis: No - ENDOCRINE/METABOLIC Hx Diabetes Mellitus Type 1: Yes - HEMATOLOGICAL/ONCOLOGICAL Hx Blood Disorders: Yes Hx Anemia: Yes - INTEGUMENTARY Hx Dermatological Problems: No - MUSCULOSKELETAL/RHEUMATOLOGICAL Hx Musculoskeletal Disorders: Yes Hx Falls: Yes - GASTROINTESTINAL Hx Gastrointestinal Disorders: Yes (BOWEL OBSTRUCTION) Hx Colitis: Yes Hx Colostomy: Yes - GENITOURINARY/GYNECOLOGICAL Hx Genitourinary Disorders: Yes Hx Prostate Problems: Yes (BPH) - PSYCHIATRIC Hx Emotional Abuse: No Hx Physical Abuse: No Hx Substance Use: No - SURGICAL HISTORY Hx Surgeries: Yes Hx Abdominal Aortic Aneurysm Repair: Yes (complicated by endoleak) Other/Comment: Colostomy, Rside - ANESTHESIA Hx Anesthesia: Yes Hx Anesthesia Reactions: No Hx Malignant Hyperthermia: No Meds Allergies/Adverse Reactions: Allergies Allergy/AdvReac Type Severity Reaction Status Date / Time No Known Allergies Allergy Verified 01/21/17 08:28 Physical Exam - Constitutional Appears: Non-toxic, No Acute Distress - Head Exam Head Exam: ATRAUMATIC, NORMAL INSPECTION, NORMOCEPHALIC - Eye Exam Eye Exam: EOMI, Normal appearance, PERRL - ENT Exam ENT Exam: Mucous Membranes Moist, Normal Exam - Respiratory Exam Respiratory Exam: Clear to Auscultation Bilateral, NORMAL BREATHING PATTERN. absent: Respiratory Distress - Cardiovascular Exam Cardiovascular Exam: RRR. absent: Diastolic murmur, Gallop, Rubs, Systolic Murmur - GI/Abdominal Exam GI & Abdominal Exam: Normal Bowel Sounds, Soft, Tenderness (mild tenderness to palpation lower abdomen ). absent: Distended Additional comments: R sided colostomy bag in place, showing soft brown stools, non-bloody - Neurological Exam Neurological exam: Alert, Oriented x3 - Psychiatric Exam Psychiatric exam: Normal Affect, Normal Mood - Skin Skin Exam: Normal Color, Warm Results - Vital Signs Recent Vital Signs: Last Vital Signs Temp 98.7 F 01/20/17 16:00 Pulse 84 01/20/17 16:00 Resp 20 01/20/17 16:00 BP 116/73 01/20/17 16:00 Pulse Ox 99 01/20/17 16:00 - Labs Result Diagrams: 01/20/17 06:20 01/20/17 06:20 Labs: Laboratory Results - last 24 hr 01/19/17 01/19/17 01/20/17 16:30 21:34 05:10 WBC RBC Hgb Hct MCV MCH MCHC RDW Plt Count MPV PT INR Sodium Potassium Chloride Carbon Dioxide Anion Gap BUN Creatinine Est GFR ( Amer) Est GFR (Non-Af Amer) POC Glucose (mg/dL) 280 H 261 H 176 H Random Glucose Calcium Total Bilirubin AST ALT Alkaline Phosphatase Total Protein Albumin Globulin Albumin/Globulin Ratio Urine Color Urine Appearance Urine pH Ur Specific [place] Urine Protein Urine Glucose (UA) Urine Ketones Urine Blood Urine Nitrate Urine Bilirubin Urine Urobilinogen Ur Leukocyte Esterase Urine RBC Urine WBC Ur Epithelial Cells Urine Bacteria 01/20/17 01/20/17 01/20/17 06:20 06:20 06:20 WBC 7.7 RBC 4.17 Hgb 10.7 L Hct 32.3 L MCV 77.5 L MCH 25.7 MCHC 33.1 RDW 15.2 H Plt Count 232 MPV 10.4 PT 23.1 H INR 2.14 H Sodium 137 Potassium 4.7 Chloride 109 H Carbon Dioxide 19 L Anion Gap 14 BUN 60 H Creatinine 2.5 H Est GFR ( Amer) 31 Est GFR (Non-Af Amer) 25 POC Glucose (mg/dL) Random Glucose 169 H Calcium 8.8 Total Bilirubin 0.4 AST 31 ALT 30 Alkaline Phosphatase 114 Total Protein 6.9 Albumin 3.1 Globulin 3.8 Albumin/Globulin Ratio 0.8 L Urine Color Urine Appearance Urine pH Ur Specific [place] Urine Protein Urine Glucose (UA) Urine Ketones Urine Blood Urine Nitrate Urine Bilirubin Urine Urobilinogen Ur Leukocyte Esterase Urine RBC Urine WBC Ur Epithelial Cells Urine Bacteria 01/20/17 14:18 WBC RBC Hgb Hct MCV MCH MCHC RDW Plt Count MPV PT INR Sodium Potassium Chloride Carbon Dioxide Anion Gap BUN Creatinine Est GFR ( Amer) Est GFR (Non-Af Amer) POC Glucose (mg/dL) Random Glucose Calcium Total Bilirubin AST ALT Alkaline Phosphatase Total Protein Albumin Globulin Albumin/Globulin Ratio Urine Color Yellow Urine Appearance Sl cloudy Urine pH 6.0 Ur Specific [place] 1.020 Urine Protein 100 H Urine Glucose (UA) Negative Urine Ketones Negative Urine Blood Moderate H Urine Nitrate Negative Urine Bilirubin Negative Urine Urobilinogen 0.2 Ur Leukocyte Esterase Moderate H Urine RBC 1 - 3 Urine WBC 20 - 25 Ur Epithelial Cells 0 - 2 Urine Bacteria Few Assessment & Plan - Assessment and Plan (Free Text) Assessment: This is a 71 yo male with extensive past medical history presents with chief complaint of hematuria associated with fever, chills and dysuria 1. Complicated UTI with history of multi-drug resistant klebsiella -continue avycaz per ID -pt afebrile and WBC trending down -ID consulted 3. CHF (LVEF ~15-20%) -Continue lower dose of coreg, lasix, levemir, coreg, flomax, coumadin. 4. IDDM -Continue levemir 5u BID with humalog low dose ISS -Fingersticks ACHS -Consistent carb diet 5. Hypertension -Continue home medications 6. Dyslipidemia -Continue lipitor 7. Atrial fibrillation -Continue home warfarin 8. LLE DVT -Continue warfarin 9. CKD stage ~4 -Will continue to monitor renal function and adjust antibiotics to avoid nephrotoxicity -Nephrology consulted - Dr. Crump 10. BPH -Continue flomax 11. GI/DVT prophylaxis: Protonix/warfarin discussed with Dr. Salas - Date & Time Date: 01/20/17 Time: 00:00 <Jaden Salas - Last Filed: 01/24/17 14:39> Results - Vital Signs Recent Vital Signs: Last Vital Signs Temp 98.3 F 01/24/17 06:00 Pulse 110 H 01/24/17 08:00 Resp 18 01/24/17 06:00 BP 115/79 01/24/17 08:00 Pulse Ox 96 01/24/17 06:00 - Labs Result Diagrams: 01/24/17 09:45 01/24/17 09:45 Labs: Laboratory Results - last 24 hr 01/23/17 01/23/17 01/23/17 11:17 16:26 21:39 WBC RBC Hgb Hct MCV MCH MCHC RDW Plt Count MPV Gran % Lymph % (Auto) [place] % (Auto) Eos % (Auto) Baso % (Auto) Gran # Lymph # [place] # Eos # Baso # PT INR Sodium Potassium Chloride Carbon Dioxide Anion Gap BUN Creatinine Est GFR ( Amer) Est GFR (Non-Af Amer) POC Glucose (mg/dL) 273 H 267 H 252 H Random Glucose Calcium Total Bilirubin AST ALT Alkaline Phosphatase Total Protein Albumin Globulin Albumin/Globulin Ratio 01/24/17 01/24/17 01/24/17 04:38 09:45 09:45 WBC 6.7 RBC 4.02 Hgb 10.3 L Hct 31.8 L MCV 79.1 L MCH 25.6 MCHC 32.4 RDW 15.1 H Plt Count 324 MPV 10.8 Gran % 71.4 H Lymph % (Auto) 15.6 L [place] % (Auto) 9.6 H Eos % (Auto) 3.2 Baso % (Auto) 0.2 Gran # 4.75 Lymph # 1.0 L [place] # 0.6 Eos # 0.2 Baso # 0.01 PT INR Sodium 136 Potassium 5.5 H Chloride 111 H Carbon Dioxide 18 L Anion Gap 13 BUN 53 H Creatinine 2.3 H Est GFR ( Amer) 34 Est GFR (Non-Af Amer) 28 POC Glucose (mg/dL) 199 H Random Glucose 227 H Calcium 8.7 Total Bilirubin 0.4 AST 34 ALT 29 Alkaline Phosphatase 119 Total Protein 7.1 Albumin 3.0 Globulin 4.1 Albumin/Globulin Ratio 0.7 L 01/24/17 09:45 WBC RBC Hgb Hct MCV MCH MCHC RDW Plt Count MPV Gran % Lymph % (Auto) [place] % (Auto) Eos % (Auto) Baso % (Auto) Gran # Lymph # [place] # Eos # Baso # PT 33.6 H* INR 3.11 H Sodium Potassium Chloride Carbon Dioxide Anion Gap BUN Creatinine Est GFR ( Amer) Est GFR (Non-Af Amer) POC Glucose (mg/dL) Random Glucose Calcium Total Bilirubin AST ALT Alkaline Phosphatase Total Protein Albumin Globulin Albumin/Globulin Ratio Attending/Attestation - Attestation I have personally seen and examined this patient.: Yes I have fully participated in the care of the patient.: Yes I have reviewed all pertinent clinical information: Yes Notes (Text): I have seen and examined the patient at bedside. Agree with the note dictated above with the following additions/ exceptions: Briefly this is 71 year old male with history of IDDM, HTN, dyslipidemia, CVA, CHF (LVEF ~15%) with AICD placement, AAA s/p repair that was complicated by endoleak, ischemic colitis with right-sided hemicolectomy and ileostomy with rectal stump, stage IV CKD, BPH, LLE DVT, atrial fibrillation, COPD and prior history of multi-drug resistant klebsiella UTI that presented c/o hematuria and found to have carbepenem resistant UTI on avycaz. Patient is in TCU for rehabilitation. Continue lasix, levemir, coreg, flomax, coumadin. Upon discharge patient will follow up with Dr Palacios. Patient will be discharged to TCU. Dr Jaden Salas
[2017-01-21] MEDS: Pantoprazole 40 mg EC Tab PO SCH (06:01)
[2017-01-21] MEDS: Insulin Lispro (humaLOG) LOW Coverage SC SCH ×4 (06:58→22:34)
[2017-01-21 07:31] LABS: HEMOGLOBIN 10.4 gm/dL (14.0-18.0); MEAN CELL VOLUME 77.4 fL (80.0-105.0); MEAN CORPUSCULAR HEMOGLOBIN 25.9 pg (25.0-35.0); MEAN CORPUSCULAR HGB CONC 33.4 g/dl (31.0-37.0); MEAN PLATELET VOLUME 11.2 fl (7.0-11.0); RBC 4.02 10^6/uL (3.5-6.1); RED CELL DISTRIBUTION WIDTH 15.1 % (11.5-14.5); WHITE BLOOD COUNT 8.7 10^3/ul (4.5-11.0)
[2017-01-21 07:34] LABS: INR 2.42 (0.93-1.08); PROTHROMBIN TIME 26.1 Seconds (9.9-11.8)
[2017-01-21 07:40] LABS: ALB/GLOB RATIO 0.8 (1.1-1.8); CALCIUM 8.5 mg/dL (8.4-10.5)
[2017-01-21] MEDS: VALSARTAN PO SCH ×2 (09:13→18:31)
[2017-01-21] MEDS: Calcium-Vit D 250 mg-125 Units Tab UD PO SCH (09:13)
[2017-01-21] MEDS: DUTASTERIDE PO SCH (09:13)
[2017-01-21] MEDS: Multivitamin Therapeutic Tab PO SCH (09:13)
[2017-01-21] MEDS: SACUBITRIL PO SCH ×2 (09:13→18:31)
[2017-01-21] MEDS: Insulin Detemir 100 units/ml Vial (Levemir) SC SCH ×2 (11:11→22:57)
--- NOTE | 2017-01-21 11:44 | CP.PCM.PN ---
Subjective - Date & Time of Evaluation Date of Evaluation: 01/21/17 Time of Evaluation: 08:15 - Subjective Subjective: Comfortable in bed, no abdominal pain, not in distress, no fevers overnight. Objective - Vital Signs/Intake and Output Vital Signs (last 24 hours): Temp Pulse Resp BP Pulse Ox 98.7 F 84 20 116/73 99 01/20/17 16:00 01/20/17 16:00 01/20/17 16:00 01/20/17 16:00 01/20/17 16:00 Intake and Output: 01/21/17 01/21/17 06:59 18:59 Intake Total 100 Balance 100 - Medications Medications: Current Medications Aspirin (Ecotrin) 81 mg PO 0800 ANTHONY PRN Reason: Protocol Last Admin: 01/20/17 08:11 Dose: 81 mg Atorvastatin Calcium (Lipitor) 10 mg PO 1800 ANTHONY PRN Reason: Protocol Last Admin: 01/20/17 17:46 Dose: 10 mg Calcium/Vitamin D (Oscal-D 250 Mg-125 Units Tab) 1 tab PO DAILY ANTHONY PRN Reason: Protocol Last Admin: 01/20/17 09:21 Dose: 1 tab Carvedilol (Coreg) 12.5 mg PO 0800,1800 ANTHONY PRN Reason: Protocol Last Admin: 01/20/17 17:46 Dose: 12.5 mg Ferrous Sulfate (Feosol) 324 mg PO 0800,1800 ANTHONY PRN Reason: Protocol Last Admin: 01/20/17 17:46 Dose: 324 mg Furosemide (Lasix) 40 mg PO DAILY ANTHONY PRN Reason: Protocol Last Admin: 01/20/17 09:21 Dose: 40 mg Ceftazidime/Avibactam 0.94 gm/ (Sodium Chloride) 100 mls @ 50 mls/hr IV 0600, 1800 [facility] Last Admin: 01/21/17 06:01 Dose: 50 mls/hr Insulin Detemir (Levemir) 5 unit SC 1000,2200 ANTHONY PRN Reason: Protocol Last Admin: 01/20/17 21:52 Dose: 5 unit Insulin Human Lispro (Humalog Low) 0 units SC ACHS ANTHONY PRN Reason: Protocol Last Admin: 01/21/17 06:58 Dose: 1 units Multivitamins (Thera Tab) 1 tab PO DAILY [facility] Last Admin: 01/20/17 09:21 Dose: 1 tab Non-Formulary Medication (Dutasteride [Dutasteride]) 1 cap PO DAILY [facility] Last Admin: 01/20/17 09:22 Dose: 1 cap Non-Formulary Medication (Sacubitril/Valsartan [Entresto 24 Mg-26 Mg Tablet]) 1 tab PO BID [facility] Last Admin: 01/20/17 17:48 Dose: 1 tab Pantoprazole Sodium (Protonix Ec Tab) 40 mg PO 0630 ANTHONY PRN Reason: Protocol Last Admin: 01/21/17 06:01 Dose: 40 mg Tamsulosin HCl (Flomax) 0.4 mg PO 1800 ANTHONY PRN Reason: Protocol Last Admin: 01/20/17 17:46 Dose: 0.4 mg Warfarin Sodium (Coumadin) 2 mg PO 1800 ANTHONY PRN Reason: Protocol Last Admin: 01/20/17 17:46 Dose: 2 mg - Labs Labs: 01/21/17 07:00 01/21/17 07:00 PT 26.1 Seconds (9.9-11.8) H 01/21/17 07:00 INR 2.42 (0.93-1.08) H 01/21/17 07:00 - Constitutional Appears: Non-toxic, No Acute Distress - Head Exam Head Exam: NORMAL INSPECTION - Neck Exam Neck Exam: absent: Lymphadenopathy, Meningismus - Respiratory Exam Respiratory Exam: Decreased Breath Sounds - Cardiovascular Exam Cardiovascular Exam: +S1, +S2 - GI/Abdominal Exam GI & Abdominal Exam: Soft. absent: Tenderness Assessment and Plan - Assessment and Plan (Free Text) Plan: Assessment Consider UTI with carbapenem-resistant Klebsiella history of ESBL-producing Klebsiella bacteremia, secondary to the port S/P removal S/P treatment for healthcare-associated pneumonia history of C diff associated diarrhea history of UTI with yeast history healthcare-associated pneumonia Severe cardiomyopathy with EF 10-15 % paroxysmal atrial fibrillation Coronary artery disease S/P stenting history of aortic aneurysm history of SVT S/P AICD placement S/P procedure on his prostate in 2012 S/P partial colectomy and colostomy Plan continue Avycaz (day 3) pending sensitivities to Avycaz and will monitor clinically - should target at least 5-7 days of antibiotics; follow up repeat urine cx results (sample taken yesterday)
--- NOTE | 2017-01-21 15:47 | CP.PCM.PN ---
Subjective - Date & Time of Evaluation Date of Evaluation: 01/21/17 Time of Evaluation: 09:00 - Subjective Subjective: Awake, alert Frequency of urination per Physical Examination: Elderly male lying in bed Vital signs reviewed HEENT: NC, AT Neck: Supple, No JVD Lungs: bilateral equal air entry, no rales CVS: S1 S2 irregular, no murmur Abdomen: soft, non-tender, non-distended, BS + Ext: No edema Labs: Reviewed Meds: Reviewed Assesment and Plan: 1. 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 Resistant Klebsiella UTI, on Fortaz now 3. Hyponatremia,mild chronic, likely depletional 4. NIDDM 5. Hypertension 6. CHF 1. Hold Lasix 2. Push PO intake 3. Avoid Nephrotoxins 4. Repeat UA/U c/s- pending Objective - Vital Signs/Intake and Output Vital Signs (last 24 hours): Temp Pulse Resp BP Pulse Ox 98.6 F 105 H 18 108/75 98 01/21/17 10:00 01/21/17 10:00 01/21/17 10:00 01/21/17 10:00 01/21/17 10:00 Intake and Output: 01/21/17 01/21/17 06:59 18:59 Intake Total 100 480 Output Total 600 Balance 100 -120 - Medications Medications: Current Medications Aspirin (Ecotrin) 81 mg PO 0800 ANTHONY PRN Reason: Protocol Last Admin: 01/21/17 09:12 Dose: 81 mg Atorvastatin Calcium (Lipitor) 10 mg PO 1800 ANTHONY PRN Reason: Protocol Last Admin: 01/20/17 17:46 Dose: 10 mg Calcium/Vitamin D (Oscal-D 250 Mg-125 Units Tab) 1 tab PO DAILY ANTHONY PRN Reason: Protocol Last Admin: 01/21/17 09:13 Dose: 1 tab Carvedilol (Coreg) 12.5 mg PO 0800,1800 ANTHONY PRN Reason: Protocol Last Admin: 01/21/17 09:12 Dose: 12.5 mg Ferrous Sulfate (Feosol) 324 mg PO 0800,1800 ANTHONY PRN Reason: Protocol Last Admin: 01/21/17 09:13 Dose: 324 mg Furosemide (Lasix) 40 mg PO DAILY ANTHONY PRN Reason: Protocol Last Admin: 01/20/17 09:21 Dose: 40 mg Ceftazidime/Avibactam 0.94 gm/ (Sodium Chloride) 100 mls @ 50 mls/hr IV 0600, 1800 [facility] Last Admin: 01/21/17 06:01 Dose: 50 mls/hr Insulin Detemir (Levemir) 5 unit SC 1000,2200 ANTHONY PRN Reason: Protocol Last Admin: 01/21/17 11:11 Dose: 5 unit Insulin Human Lispro (Humalog Low) 0 units SC ACHS [facility] PRN Reason: Protocol Last Admin: 01/21/17 11:13 Dose: 3 units Multivitamins (Thera Tab) 1 tab PO DAILY [facility] Last Admin: 01/21/17 09:13 Dose: 1 tab Non-Formulary Medication (Dutasteride [Dutasteride]) 1 cap PO DAILY [facility] Last Admin: 01/21/17 09:13 Dose: 1 cap Non-Formulary Medication (Sacubitril/Valsartan [Entresto 24 Mg-26 Mg Tablet]) 1 tab PO BID [facility] Last Admin: 01/21/17 09:13 Dose: 1 tab Pantoprazole Sodium (Protonix Ec Tab) 40 mg PO 0630 [facility] PRN Reason: Protocol Last Admin: 01/21/17 06:01 Dose: 40 mg Tamsulosin HCl (Flomax) 0.4 mg PO 1800 [facility] PRN Reason: Protocol Last Admin: 01/20/17 17:46 Dose: 0.4 mg Warfarin Sodium (Coumadin) 2 mg PO 1800 ANTHONY PRN Reason: Protocol Last Admin: 01/20/17 17:46 Dose: 2 mg - Labs Labs: 01/21/17 07:00 01/21/17 07:00 PT 26.1 Seconds (9.9-11.8) H 01/21/17 07:00 INR 2.42 (0.93-1.08) H 01/21/17 07:00
[2017-01-22] MEDS: Pantoprazole 40 mg EC Tab PO SCH (05:50)
[2017-01-22 07:35] LABS: HEMOGLOBIN 9.7 gm/dL (14.0-18.0); MEAN CELL VOLUME 77.3 fL (80.0-105.0); MEAN CORPUSCULAR HEMOGLOBIN 25.3 pg (25.0-35.0); MEAN CORPUSCULAR HGB CONC 32.7 g/dl (31.0-37.0); MEAN PLATELET VOLUME 10.8 fl (7.0-11.0); RBC 3.84 10^6/uL (3.5-6.1); RED CELL DISTRIBUTION WIDTH 15.1 % (11.5-14.5); WHITE BLOOD COUNT 7.7 10^3/ul (4.5-11.0)
[2017-01-22 07:49] LABS: ALB/GLOB RATIO 0.8 (1.1-1.8); CALCIUM 8.6 mg/dL (8.4-10.5)
[2017-01-22] MEDS: Insulin Lispro (humaLOG) LOW Coverage SC SCH ×4 (07:58→22:00)
[2017-01-22 08:07] LABS: INR 2.67 (0.93-1.08); PROTHROMBIN TIME 28.8 Seconds (9.9-11.8)
[2017-01-22] MEDS: DUTASTERIDE PO SCH (10:16)
[2017-01-22] MEDS: SACUBITRIL PO SCH ×2 (10:17→17:17)
[2017-01-22] MEDS: VALSARTAN PO SCH ×2 (10:17→17:17)
[2017-01-22] MEDS: Calcium-Vit D 250 mg-125 Units Tab UD PO SCH (10:17)
[2017-01-22] MEDS: Multivitamin Therapeutic Tab PO SCH (10:18)
--- NOTE | 2017-01-22 10:27 | CP.PCM.PN ---
Subjective - Date & Time of Evaluation Date of Evaluation: 01/22/17 Time of Evaluation: 10:15 - Subjective Subjective: Awake, alert Physical Examination: Elderly male lying in bed Vital signs reviewed HEENT: NC, AT Neck: Supple, No JVD Lungs: bilateral equal air entry, no rales CVS: S1 S2 irregular, no murmur Abdomen: soft, non-tender, non-distended, BS + Ext: No edema Labs: Reviewed Meds: Reviewed Assesment and Plan: 1. 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 Resistant Klebsiella UTI, on Ceftaz/avibactam now 3. Hyponatremia,mild chronic, likely depletional 4. NIDDM 5. Hypertension 6. CHF 1. Hold Lasix 2. Push PO intake 3. Avoid Nephrotoxins 4. Repeat UA/U c/s- pending Objective - Vital Signs/Intake and Output Vital Signs (last 24 hours): Temp Pulse Resp BP Pulse Ox 98.6 F 108 H 18 118/78 98 01/21/17 10:00 01/22/17 07:58 01/21/17 10:00 01/22/17 07:58 01/21/17 10:00 Intake and Output: 01/22/17 01/22/17 06:59 18:59 Intake Total 360 Output Total 300 Balance 60 - Medications Medications: Current Medications Aspirin (Ecotrin) 81 mg PO 0800 ANTHONY PRN Reason: Protocol Last Admin: 01/22/17 07:59 Dose: 81 mg Atorvastatin Calcium (Lipitor) 10 mg PO 1800 ANTHONY PRN Reason: Protocol Last Admin: 01/21/17 18:31 Dose: 10 mg Calcium/Vitamin D (Oscal-D 250 Mg-125 Units Tab) 1 tab PO DAILY ANTHONY PRN Reason: Protocol Last Admin: 01/22/17 10:17 Dose: 1 tab Carvedilol (Coreg) 12.5 mg PO 0800,1800 ANTHONY PRN Reason: Protocol Last Admin: 01/22/17 07:58 Dose: 12.5 mg Ferrous Sulfate (Feosol) 324 mg PO 0800,1800 ANTHONY PRN Reason: Protocol Last Admin: 01/22/17 07:59 Dose: 324 mg Furosemide (Lasix) 40 mg PO DAILY ANTHONY PRN Reason: Protocol Last Admin: 01/20/17 09:21 Dose: 40 mg Ceftazidime/Avibactam 0.94 gm/ (Sodium Chloride) 100 mls @ 50 mls/hr IV 0600, 1800 [facility] Last Admin: 01/22/17 05:50 Dose: 50 mls/hr Insulin Detemir (Levemir) 5 unit SC 1000,2200 ANTHONY PRN Reason: Protocol Last Admin: 01/21/17 22:57 Dose: 5 unit Insulin Human Lispro (Humalog Low) 0 units SC ACHS [facility] PRN Reason: Protocol Last Admin: 01/22/17 07:58 Dose: 1 units Multivitamins (Thera Tab) 1 tab PO DAILY [facility] Last Admin: 01/22/17 10:18 Dose: 1 tab Non-Formulary Medication (Dutasteride [Dutasteride]) 1 cap PO DAILY [facility] Last Admin: 01/22/17 10:16 Dose: 1 cap Non-Formulary Medication (Sacubitril/Valsartan [Entresto 24 Mg-26 Mg Tablet]) 1 tab PO BID [facility] Last Admin: 01/22/17 10:17 Dose: 1 tab Pantoprazole Sodium (Protonix Ec Tab) 40 mg PO 0630 [facility] PRN Reason: Protocol Last Admin: 01/22/17 05:50 Dose: 40 mg Tamsulosin HCl (Flomax) 0.4 mg PO 1800 ANTHONY PRN Reason: Protocol Last Admin: 01/21/17 18:31 Dose: 0.4 mg Warfarin Sodium (Coumadin) 2 mg PO 1800 ANTHONY PRN Reason: Protocol Last Admin: 01/21/17 18:31 Dose: 2 mg - Labs Labs: 01/22/17 07:00 01/22/17 07:00 PT 28.8 Seconds (9.9-11.8) H 01/22/17 07:00 INR 2.67 (0.93-1.08) H 01/22/17 07:00
--- NOTE | 2017-01-22 10:45 | CP.PCM.PN ---
Subjective - Date & Time of Evaluation Date of Evaluation: 01/22/17 Time of Evaluation: 10:30 - Subjective Subjective: Patient is comfortable, not in distress, afebrile, no abdominal pain. Appetite ok. Objective - Vital Signs/Intake and Output Vital Signs (last 24 hours): Temp Pulse Resp BP Pulse Ox 98.6 F 105 H 18 108/75 98 01/21/17 10:00 01/21/17 10:00 01/21/17 10:00 01/21/17 10:00 01/21/17 10:00 Intake and Output: 01/22/17 01/22/17 06:59 18:59 Intake Total 360 Output Total 300 Balance 60 - Medications Medications: Current Medications Aspirin (Ecotrin) 81 mg PO 0800 ANTHOYN PRN Reason: Protocol Last Admin: 01/21/17 09:12 Dose: 81 mg Atorvastatin Calcium (Lipitor) 10 mg PO 1800 ANTHONY PRN Reason: Protocol Last Admin: 01/21/17 18:31 Dose: 10 mg Calcium/Vitamin D (Oscal-D 250 Mg-125 Units Tab) 1 tab PO DAILY ANTHONY PRN Reason: Protocol Last Admin: 01/21/17 09:13 Dose: 1 tab Carvedilol (Coreg) 12.5 mg PO 0800,1800 ANTHONY PRN Reason: Protocol Last Admin: 01/21/17 18:31 Dose: 12.5 mg Ferrous Sulfate (Feosol) 324 mg PO 0800,1800 ANTHONY PRN Reason: Protocol Last Admin: 01/21/17 18:31 Dose: 324 mg Furosemide (Lasix) 40 mg PO DAILY ANTHONY PRN Reason: Protocol Last Admin: 01/20/17 09:21 Dose: 40 mg Ceftazidime/Avibactam 0.94 gm/ (Sodium Chloride) 100 mls @ 50 mls/hr IV 0600, 1800 [facility] Last Admin: 01/22/17 05:50 Dose: 50 mls/hr Insulin Detemir (Levemir) 5 unit SC 1000,2200 ANTHONY PRN Reason: Protocol Last Admin: 01/21/17 22:57 Dose: 5 unit Insulin Human Lispro (Humalog Low) 0 units SC ACHS AN[facility]Y PRN Reason: Protocol Last Admin: 01/21/17 22:34 Dose: Not Given Multivitamins (Thera Tab) 1 tab PO DAILY [facility] Last Admin: 01/21/17 09:13 Dose: 1 tab Non-Formulary Medication (Dutasteride [Dutasteride]) 1 cap PO DAILY [facility] Last Admin: 01/21/17 09:13 Dose: 1 cap Non-Formulary Medication (Sacubitril/Valsartan [Entresto 24 Mg-26 Mg Tablet]) 1 tab PO BID AN[facility]Y Last Admin: 01/21/17 18:31 Dose: 1 tab Pantoprazole Sodium (Protonix Ec Tab) 40 mg PO 0630 ANTHONY PRN Reason: Protocol Last Admin: 01/22/17 05:50 Dose: 40 mg Tamsulosin HCl (Flomax) 0.4 mg PO 1800 ANTHONY PRN Reason: Protocol Last Admin: 01/21/17 18:31 Dose: 0.4 mg Warfarin Sodium (Coumadin) 2 mg PO 1800 ANTHONY PRN Reason: Protocol Last Admin: 01/21/17 18:31 Dose: 2 mg - Labs Labs: 01/21/17 07:00 01/21/17 07:00 PT 26.1 Seconds (9.9-11.8) H 01/21/17 07:00 INR 2.42 (0.93-1.08) H 01/21/17 07:00 - Constitutional Appears: Non-toxic, No Acute Distress - Head Exam Head Exam: NORMAL INSPECTION - ENT Exam ENT Exam: Mucous Membranes Moist - Neck Exam Neck Exam: absent: Lymphadenopathy, Meningismus - Respiratory Exam Respiratory Exam: Decreased Breath Sounds - Cardiovascular Exam Cardiovascular Exam: +S1, +S2 - GI/Abdominal Exam GI & Abdominal Exam: Soft. absent: Tenderness Additional comments: right sided colostomy in place Assessment and Plan - Assessment and Plan (Free Text) Plan: Assessment Consider UTI with carbapenem-resistant Klebsiella history of ESBL-producing Klebsiella bacteremia, secondary to the port S/P removal S/P treatment for healthcare-associated pneumonia history of C diff associated diarrhea history of UTI with yeast history healthcare-associated pneumonia Severe cardiomyopathy with EF 10-15 % paroxysmal atrial fibrillation Coronary artery disease S/P stenting history of aortic aneurysm history of SVT S/P AICD placement S/P procedure on his prostate in 2012 S/P partial colectomy and colostomy Plan continue Avycaz (day 4) pending sensitivities to Avycaz and will continue to monitor clinically - should target 7 days of antibiotics; follow up repeat urine cx from 01/20/2017 are now negative
[2017-01-22] MEDS: Insulin Detemir 100 units/ml Vial (Levemir) SC SCH ×2 (11:54→22:15)
[2017-01-23] MEDS: Pantoprazole 40 mg EC Tab PO SCH (06:08)
[2017-01-23] MEDS: Insulin Lispro (humaLOG) LOW Coverage SC SCH ×4 (06:30→21:43)
[2017-01-23 07:55] LABS: ALB/GLOB RATIO 0.8 (1.1-1.8); ALBUMIN 3.1 g/dL (3.0-4.8); CALCIUM 8.8 mg/dL (8.4-10.5)
[2017-01-23 08:00] LABS: HEMOGLOBIN 9.9 gm/dL (14.0-18.0); MEAN CELL VOLUME 77.8 fL (80.0-105.0); MEAN CORPUSCULAR HEMOGLOBIN 25.5 pg (25.0-35.0); MEAN CORPUSCULAR HGB CONC 32.8 g/dl (31.0-37.0); MEAN PLATELET VOLUME 10.6 fl (7.0-11.0); RBC 3.88 10^6/uL (3.5-6.1); RED CELL DISTRIBUTION WIDTH 15.2 % (11.5-14.5); WHITE BLOOD COUNT 8.1 10^3/ul (4.5-11.0)
[2017-01-23 08:03] LABS: INR 2.93 (0.93-1.08); PROTHROMBIN TIME 31.6 Seconds (9.9-11.8)
[2017-01-23] MEDS: DUTASTERIDE PO SCH (10:04)
[2017-01-23] MEDS: Calcium-Vit D 250 mg-125 Units Tab UD PO SCH (10:05)
[2017-01-23] MEDS: VALSARTAN PO SCH ×2 (10:05→17:57)
[2017-01-23] MEDS: SACUBITRIL PO SCH ×2 (10:05→17:57)
[2017-01-23] MEDS: Multivitamin Therapeutic Tab PO SCH (10:06)
[2017-01-23] MEDS: Insulin Detemir 100 units/ml Vial (Levemir) SC SCH ×2 (13:15→21:44)
--- NOTE | 2017-01-23 13:51 | CP.PCM.PN ---
Subjective - Date & Time of Evaluation Date of Evaluation: 01/23/17 Time of Evaluation: 12:20 - Subjective Subjective: Patient eating well today, no abdominal pain, no diarrhea. No fevers overnight. Objective - Vital Signs/Intake and Output Vital Signs (last 24 hours): Temp Pulse Resp BP Pulse Ox 98.5 F 107 H 20 111/79 99 01/23/17 06:00 01/23/17 06:00 01/23/17 06:00 01/23/17 06:00 01/22/17 16:00 - Medications Medications: Current Medications Aspirin (Ecotrin) 81 mg PO 0800 ANTHONY PRN Reason: Protocol Last Admin: 01/22/17 07:59 Dose: 81 mg Atorvastatin Calcium (Lipitor) 10 mg PO 1800 ANTHONY PRN Reason: Protocol Last Admin: 01/22/17 17:17 Dose: 10 mg Calcium/Vitamin D (Oscal-D 250 Mg-125 Units Tab) 1 tab PO DAILY ANTHONY PRN Reason: Protocol Last Admin: 01/22/17 10:17 Dose: 1 tab Carvedilol (Coreg) 12.5 mg PO 0800,1800 ANTHONY PRN Reason: Protocol Last Admin: 01/22/17 17:15 Dose: 12.5 mg Ferrous Sulfate (Feosol) 324 mg PO 0800,1800 ANTHONY PRN Reason: Protocol Last Admin: 01/22/17 17:16 Dose: 324 mg Furosemide (Lasix) 40 mg PO DAILY ANTHONY PRN Reason: Protocol Last Admin: 01/20/17 09:21 Dose: 40 mg Ceftazidime/Avibactam 0.94 gm/ (Sodium Chloride) 100 mls @ 50 mls/hr IV 0600, 1800 [facility] Last Admin: 01/23/17 06:08 Dose: 50 mls/hr Insulin Detemir (Levemir) 5 unit SC 1000,2200 ANTHONY PRN Reason: Protocol Last Admin: 01/22/17 22:15 Dose: 5 unit Insulin Human Lispro (Humalog Low) 0 units SC ACHS ANTHONY PRN Reason: Protocol Last Admin: 01/23/17 06:30 Dose: Not Given Multivitamins (Thera Tab) 1 tab PO DAILY [facility] Last Admin: 01/22/17 10:18 Dose: 1 tab Non-Formulary Medication (Dutasteride [Dutasteride]) 1 cap PO DAILY [facility] Last Admin: 01/22/17 10:16 Dose: 1 cap Non-Formulary Medication (Sacubitril/Valsartan [Entresto 24 Mg-26 Mg Tablet]) 1 tab PO BID AN[facility]ONY Last Admin: 01/22/17 17:17 Dose: 1 tab Pantoprazole Sodium (Protonix Ec Tab) 40 mg PO 0630 ANTHONY PRN Reason: Protocol Last Admin: 01/23/17 06:08 Dose: 40 mg Tamsulosin HCl (Flomax) 0.4 mg PO 1800 ANTHONY PRN Reason: Protocol Last Admin: 01/22/17 17:17 Dose: 0.4 mg Warfarin Sodium (Coumadin) 2 mg PO 1800 ANTHONY PRN Reason: Protocol Last Admin: 01/22/17 17:16 Dose: 2 mg - Labs Labs: 01/22/17 07:00 01/22/17 07:00 PT 28.8 Seconds (9.9-11.8) H 01/22/17 07:00 INR 2.67 (0.93-1.08) H 01/22/17 07:00 - Constitutional Appears: Non-toxic, No Acute Distress - Head Exam Head Exam: NORMAL INSPECTION - Neck Exam Neck Exam: absent: Meningismus - Respiratory Exam Respiratory Exam: Decreased Breath Sounds - Cardiovascular Exam Cardiovascular Exam: +S1, +S2 - GI/Abdominal Exam GI & Abdominal Exam: Soft. absent: Tenderness Assessment and Plan - Assessment and Plan (Free Text) Plan: Assessment Consider UTI with carbapenem-resistant Klebsiella history of ESBL-producing Klebsiella bacteremia, secondary to the port S/P removal S/P treatment for healthcare-associated pneumonia history of C diff associated diarrhea history of UTI with yeast history healthcare-associated pneumonia Severe cardiomyopathy with EF 10-15 % paroxysmal atrial fibrillation Coronary artery disease S/P stenting history of aortic aneurysm history of SVT S/P AICD placement S/P procedure on his prostate in 2012 S/P partial colectomy and colostomy Plan continue Avycaz (day 5) and will continue to monitor clinically - should target 7 days of antibiotics; follow up repeat urine cx from 01/20/2017 are now negative
[2017-01-23] MEDS ORDERED: Levalbuterol 0.63 MG/3 ML Inhal Soln UD IH PRN (15:02)
[2017-01-24] MEDS: Pantoprazole 40 mg EC Tab PO SCH (05:30)
[2017-01-24] MEDS: Insulin Lispro (humaLOG) LOW Coverage SC SCH ×4 (06:47→22:05)
[2017-01-24] MEDS: Budesonide 0.5 mg/2 ml Inhal Susp UD IH SCH ×3 (07:21→21:00)
[2017-01-24] MEDS: Arformoterol 15 mcg/2 ml Inh Sol IH SCH ×3 (07:21→21:00)
[2017-01-24 09:56] LABS: BASO # 0.01 K/mm3 (0.0-2.0); BASO % 0.2 % (0.0-3.0); EOS # 0.2 (0.0-0.7); EOS % 3.2 % (1.5-5.0); GRAN # 4.75 (1.4-6.5); GRAN % 71.4 % (50.0-68.0); HEMOGLOBIN 10.3 gm/dL (14.0-18.0); LYMPH % 15.6 % (22.0-35.0); MEAN CELL VOLUME 79.1 fL (80.0-105.0); MEAN CORPUSCULAR HEMOGLOBIN 25.6 pg (25.0-35.0); MEAN CORPUSCULAR HGB CONC 32.4 g/dl (31.0-37.0); MEAN PLATELET VOLUME 10.8 fl (7.0-11.0); MONO # 0.6 (0.1-0.6); MONO % 9.6 % (1.0-6.0); PLATELET COUNT 324 10^3/uL (120.0-450.0); RBC 4.02 10^6/uL (3.5-6.1); RED CELL DISTRIBUTION WIDTH 15.1 % (11.5-14.5); WHITE BLOOD COUNT 6.7 10^3/ul (4.5-11.0)
[2017-01-24 09:58] LABS: ALB/GLOB RATIO 0.7 (1.1-1.8); CALCIUM 8.7 mg/dL (8.4-10.5)
[2017-01-24 10:04] LABS: INR 3.11 (0.93-1.08); PROTHROMBIN TIME 33.6 Seconds (9.9-11.8)
[2017-01-24] MEDS: DUTASTERIDE PO SCH (10:04)
[2017-01-24] MEDS: Calcium-Vit D 250 mg-125 Units Tab UD PO SCH (10:04)
[2017-01-24] MEDS: Multivitamin Therapeutic Tab PO SCH (10:05)
[2017-01-24] MEDS: SACUBITRIL PO SCH ×2 (10:06→17:26)
[2017-01-24] MEDS: VALSARTAN PO SCH ×2 (10:06→17:26)
[2017-01-24] MEDS: Insulin Detemir 100 units/ml Vial (Levemir) SC SCH ×2 (11:00→22:03)
--- NOTE | 2017-01-24 13:20 | CP.PCM.PN ---
Subjective - Date & Time of Evaluation Date of Evaluation: 01/24/17 Time of Evaluation: 12:30 - Subjective Subjective: Awake, alert Physical Examination: Elderly male lying in bed Vital signs reviewed HEENT: NC, AT Neck: Supple, No JVD Lungs: bilateral equal air entry, no rales CVS: S1 S2 irregular, no murmur Abdomen: soft, non-tender, non-distended, BS + Ext: No edema Labs: Reviewed Meds: Reviewed Assesment and Plan: 1. 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 Resistant Klebsiella UTI, on Ceftaz/avibactam now 3. Hyponatremia,mild chronic, likely depletional 4. NIDDM 5. Hypertension 6. CHF 7. Hyperkalemia, not on any supplements, ?? Type IV RTA 1. Con't PO Lasix 2. Push PO intake 3. Avoid Nephrotoxins 4. Repeat UA/U c/s -ve 5. Start PO NaHCO3 Objective - Vital Signs/Intake and Output Vital Signs (last 24 hours): Temp Pulse Resp BP Pulse Ox 98.3 F 110 H 18 115/79 96 01/24/17 06:00 01/24/17 08:00 01/24/17 06:00 01/24/17 08:00 01/24/17 06:00 - Medications Medications: Current Medications Arformoterol Tartrate (Brovana) 15 mcg IH [id number] [facility] Last Admin: 01/24/17 07:22 Dose: Not Given Aspirin (Ecotrin) 81 mg PO 0800 ANTHONY PRN Reason: Protocol Last Admin: 01/24/17 08:00 Dose: 81 mg Atorvastatin Calcium (Lipitor) 10 mg PO 1800 ANTHONY PRN Reason: Protocol Last Admin: 01/23/17 17:57 Dose: 10 mg Budesonide (Pulmicort Respules) 0.5 mg IH [id number] [facility] Last Admin: 01/24/17 07:22 Dose: Not Given Calcium/Vitamin D (Oscal-D 250 Mg-125 Units Tab) 1 tab PO DAILY ANTHONY PRN Reason: Protocol Last Admin: 01/24/17 10:04 Dose: 1 tab Carvedilol (Coreg) 12.5 mg PO 0800,1800 ANTHONY PRN Reason: Protocol Last Admin: 01/24/17 08:00 Dose: 12.5 mg Ferrous Sulfate (Feosol) 324 mg PO 0800,1800 ANTHONY PRN Reason: Protocol Last Admin: 01/24/17 08:00 Dose: 324 mg Furosemide (Lasix) 40 mg PO DAILY ANTHONY PRN Reason: Protocol Last Admin: 01/20/17 09:21 Dose: 40 mg Ceftazidime/Avibactam 0.94 gm/ (Sodium Chloride) 100 mls @ 50 mls/hr IV 0600, 1800 [facility] Last Admin: 01/24/17 05:30 Dose: 50 mls/hr Insulin Detemir (Levemir) 5 unit SC 1000,2200 ANTHONY PRN Reason: Protocol Last Admin: 01/24/17 11:00 Dose: 5 unit Insulin Human Lispro (Humalog Low) 0 units SC ACHS AN[facility]Y PRN Reason: Protocol Last Admin: 01/24/17 12:30 Dose: 3 units Levalbuterol HCl (Xopenex) 0.63 mg IH Q4H PRN PRN Reason: Shortness of Breath Multivitamins (Thera Tab) 1 tab PO DAILY [facility] Last Admin: 01/24/17 10:05 Dose: 1 tab Non-Formulary Medication (Dutasteride [Dutasteride]) 1 cap PO DAILY [facility] Last Admin: 01/24/17 10:04 Dose: 1 cap Non-Formulary Medication (Sacubitril/Valsartan [Entresto 24 Mg-26 Mg Tablet]) 1 tab PO BID [facility] Last Admin: 01/24/17 10:06 Dose: 1 tab Pantoprazole Sodium (Protonix Ec Tab) 40 mg PO 0630 AN[facility]Y PRN Reason: Protocol Last Admin: 01/24/17 05:30 Dose: 40 mg Sodium Bicarbonate (Sodium Bicarbonate Tab) 650 mg PO BID [facility] Tamsulosin HCl (Flomax) 0.4 mg PO 1800 ANTHONY PRN Reason: Protocol Last Admin: 01/23/17 17:57 Dose: 0.4 mg Warfarin Sodium (Coumadin) 2 mg PO 1800 ANTHONY PRN Reason: Protocol Last Admin: 01/23/17 17:56 Dose: 2 mg - Labs Labs: 01/24/17 09:45 01/24/17 09:45 PT 33.6 Seconds (9.9-11.8) H* 01/24/17 09:45 INR 3.11 (0.93-1.08) H 01/24/17 09:45
--- NOTE | 2017-01-24 18:56 | CP.PCM.PN ---
Subjective - Date & Time of Evaluation Date of Evaluation: 01/24/17 Time of Evaluation: 12:25 - Subjective Subjective: Patient is comfortable in bed, not in distress, afebrile. Objective - Vital Signs/Intake and Output Vital Signs (last 24 hours): Temp Pulse Resp BP Pulse Ox 97.7 F 111 H 20 123/86 98 01/24/17 16:00 01/24/17 17:25 01/24/17 16:00 01/24/17 17:25 01/24/17 16:00 - Medications Medications: Current Medications Arformoterol Tartrate (Brovana) 15 mcg IH [id number] [facility] Last Admin: 01/24/17 07:22 Dose: Not Given Aspirin (Ecotrin) 81 mg PO 0800 [facility] PRN Reason: Protocol Last Admin: 01/24/17 08:00 Dose: 81 mg Atorvastatin Calcium (Lipitor) 10 mg PO 1800 ANTHONY PRN Reason: Protocol Last Admin: 01/24/17 17:22 Dose: 10 mg Budesonide (Pulmicort Respules) 0.5 mg IH [id number] [facility] Last Admin: 01/24/17 07:22 Dose: Not Given Calcium/Vitamin D (Oscal-D 250 Mg-125 Units Tab) 1 tab PO DAILY [facility]Y PRN Reason: Protocol Last Admin: 01/24/17 10:04 Dose: 1 tab Carvedilol (Coreg) 12.5 mg PO 0800,1800 AN[facility]Y PRN Reason: Protocol Last Admin: 01/24/17 17:25 Dose: 12.5 mg Ferrous Sulfate (Feosol) 324 mg PO 0800,1800 AN[facility]Y PRN Reason: Protocol Last Admin: 01/24/17 17:22 Dose: 324 mg Furosemide (Lasix) 40 mg PO DAILY [facility]Y PRN Reason: Protocol Last Admin: 01/20/17 09:21 Dose: 40 mg Ceftazidime/Avibactam 0.94 gm/ (Sodium Chloride) 100 mls @ 50 mls/hr IV 0600, 1800 [facility] Last Admin: 01/24/17 18:25 Dose: 50 mls/hr Insulin Detemir (Levemir) 5 unit SC 1000,2200 AN[facility]Y PRN Reason: Protocol Last Admin: 01/24/17 11:00 Dose: 5 unit Insulin Human Lispro (Humalog Low) 0 units SC ACHS [facility]Y PRN Reason: Protocol Last Admin: 01/24/17 17:27 Dose: 3 units Levalbuterol HCl (Xopenex) 0.63 mg IH Q4H PRN PRN Reason: Shortness of Breath Multivitamins (Thera Tab) 1 tab PO DAILY [facility] Last Admin: 01/24/17 10:05 Dose: 1 tab Non-Formulary Medication (Dutasteride [Dutasteride]) 1 cap PO DAILY [facility] Last Admin: 01/24/17 10:04 Dose: 1 cap Non-Formulary Medication (Sacubitril/Valsartan [Entresto 24 Mg-26 Mg Tablet]) 1 tab PO BID [facility] Last Admin: 01/24/17 17:26 Dose: 1 tab Pantoprazole Sodium (Protonix Ec Tab) 40 mg PO 0630 [facility] PRN Reason: Protocol Last Admin: 01/24/17 05:30 Dose: 40 mg Sodium Bicarbonate (Sodium Bicarbonate Tab) 650 mg PO BID [facility] Last Admin: 01/24/17 17:23 Dose: 650 mg Tamsulosin HCl (Flomax) 0.4 mg PO 1800 [facility] PRN Reason: Protocol Last Admin: 01/24/17 17:22 Dose: 0.4 mg Warfarin Sodium (Coumadin) 2 mg PO 1800 [facility] PRN Reason: Protocol Last Admin: 01/24/17 17:22 Dose: 2 mg - Labs Labs: 01/24/17 09:45 01/24/17 09:45 PT 33.6 Seconds (9.9-11.8) H* 01/24/17 09:45 INR 3.11 (0.93-1.08) H 01/24/17 09:45 - Constitutional Appears: Non-toxic, No Acute Distress - Head Exam Head Exam: NORMAL INSPECTION - ENT Exam ENT Exam: Mucous Membranes Moist - Neck Exam Neck Exam: absent: Lymphadenopathy, Meningismus - Respiratory Exam Respiratory Exam: Decreased Breath Sounds - Cardiovascular Exam Cardiovascular Exam: +S1, +S2 - GI/Abdominal Exam GI & Abdominal Exam: Soft. absent: Tenderness Assessment and Plan - Assessment and Plan (Free Text) Plan: Assessment Consider UTI with carbapenem-resistant Klebsiella history of ESBL-producing Klebsiella bacteremia, secondary to the port S/P removal S/P treatment for healthcare-associated pneumonia history of C diff associated diarrhea history of UTI with yeast history healthcare-associated pneumonia Severe cardiomyopathy with EF 10-15 % paroxysmal atrial fibrillation Coronary artery disease S/P stenting history of aortic aneurysm history of SVT S/P AICD placement S/P procedure on his prostate in 2012 S/P partial colectomy and colostomy Plan continue Avycaz (day 6) and will continue to monitor clinically - should target 7 days of antibiotics; follow up repeat urine cx from 01/20/2017 are now negative
[2017-01-25] MEDS: Pantoprazole 40 mg EC Tab PO SCH (05:39)
[2017-01-25] MEDS: Insulin Lispro (humaLOG) LOW Coverage SC SCH ×4 (07:03→21:33)
[2017-01-25] MEDS: Budesonide 0.5 mg/2 ml Inhal Susp UD IH SCH ×2 (07:19→19:24)
[2017-01-25] MEDS: Arformoterol 15 mcg/2 ml Inh Sol IH SCH ×2 (07:19→19:24)
[2017-01-25 07:30] LABS: MEAN CELL VOLUME 78.6 fL (80.0-105.0); MEAN CORPUSCULAR HEMOGLOBIN 25.4 pg (25.0-35.0); MEAN CORPUSCULAR HGB CONC 32.4 g/dl (31.0-37.0); MEAN PLATELET VOLUME 10.8 fl (7.0-11.0); RBC 3.93 10^6/uL (3.5-6.1); WHITE BLOOD COUNT 5.9 10^3/ul (4.5-11.0)
[2017-01-25 07:38] LABS: INR 3.22 (0.93-1.08); PROTHROMBIN TIME 34.8 Seconds (9.9-11.8)
[2017-01-25 07:41] LABS: ALB/GLOB RATIO 0.8 (1.1-1.8); ALBUMIN 3.1 g/dL (3.0-4.8)
--- NOTE | 2017-01-25 09:10 | CP.PCM.PN ---
Subjective - Date & Time of Evaluation Date of Evaluation: 01/22/17 Time of Evaluation: 17:00 - Subjective Subjective: feel better on bed no fever , no dyspnea, on iv antibiotics, Objective - Vital Signs/Intake and Output Vital Signs (last 24 hours): Temp Pulse Resp BP Pulse Ox 98.2 F 109 H 18 120/84 99 01/22/17 16:00 01/22/17 17:15 01/22/17 16:00 01/22/17 17:15 01/22/17 16:00 - Medications Medications: Current Medications Aspirin (Ecotrin) 81 mg PO 0800 [facility] PRN Reason: Protocol Last Admin: 01/22/17 07:59 Dose: 81 mg Atorvastatin Calcium (Lipitor) 10 mg PO 1800 [facility] PRN Reason: Protocol Last Admin: 01/22/17 17:17 Dose: 10 mg Calcium/Vitamin D (Oscal-D 250 Mg-125 Units Tab) 1 tab PO DAILY [facility] PRN Reason: Protocol Last Admin: 01/22/17 10:17 Dose: 1 tab Carvedilol (Coreg) 12.5 mg PO 0800,1800 [facility] PRN Reason: Protocol Last Admin: 01/22/17 17:15 Dose: 12.5 mg Ferrous Sulfate (Feosol) 324 mg PO 0800,1800 [facility] PRN Reason: Protocol Last Admin: 01/22/17 17:16 Dose: 324 mg Furosemide (Lasix) 40 mg PO DAILY [facility]Y PRN Reason: Protocol Last Admin: 01/20/17 09:21 Dose: 40 mg Ceftazidime/Avibactam 0.94 gm/ (Sodium Chloride) 100 mls @ 50 mls/hr IV 0600, 1800 [facility] Last Admin: 01/22/17 17:49 Dose: 50 mls/hr Insulin Detemir (Levemir) 5 unit SC 1000,2200 [facility] PRN Reason: Protocol Last Admin: 01/22/17 22:15 Dose: 5 unit Insulin Human Lispro (Humalog Low) 0 units SC ACHS [facility] PRN Reason: Protocol Last Admin: 01/22/17 22:00 Dose: Not Given Multivitamins (Thera Tab) 1 tab PO DAILY [facility] Last Admin: 01/22/17 10:18 Dose: 1 tab Non-Formulary Medication (Dutasteride [Dutasteride]) 1 cap PO DAILY [facility] Last Admin: 01/22/17 10:16 Dose: 1 cap Non-Formulary Medication (Sacubitril/Valsartan [Entresto 24 Mg-26 Mg Tablet]) 1 tab PO BID [facility] Last Admin: 01/22/17 17:17 Dose: 1 tab Pantoprazole Sodium (Protonix Ec Tab) 40 mg PO 0630 [facility] PRN Reason: Protocol Last Admin: 01/22/17 05:50 Dose: 40 mg Tamsulosin HCl (Flomax) 0.4 mg PO 1800 [facility] PRN Reason: Protocol Last Admin: 01/22/17 17:17 Dose: 0.4 mg Warfarin Sodium (Coumadin) 2 mg PO 1800 [facility] PRN Reason: Protocol Last Admin: 01/22/17 17:16 Dose: 2 mg - Labs Labs: 01/22/17 07:00 01/22/17 07:00 PT 28.8 Seconds (9.9-11.8) H 01/22/17 07:00 INR 2.67 (0.93-1.08) H 01/22/17 07:00 - Constitutional Appears: Well - Head Exam Head Exam: ATRAUMATIC, NORMAL INSPECTION, NORMOCEPHALIC - Eye Exam Eye Exam: EOMI, Normal appearance, PERRL Pupil Exam: NORMAL ACCOMODATION, PERRL - ENT Exam ENT Exam: Mucous Membranes Moist, Normal Exam - GI/Abdominal Exam GI & Abdominal Exam: Soft, Normal Bowel Sounds. absent: Tenderness Additional comments: colostomy bag - Rectal Exam Rectal Exam: Deferred - Exam Bimanual exam: Cervical Motion Tendernes - Back Exam Back Exam: NORMAL INSPECTION - Skin Skin Exam: Dry, Intact, Normal Color, Warm Assessment and Plan (1) A-fib Status: Acute (2) Abdominal aneurysm Status: Acute (3) Anemia Status: Acute (4) Attention to ileostomy Status: Acute (5) Hyperglycemia Status: Acute (6) Renal failure Status: Acute (7) Renal failure (ARF), acute on chronic Status: Acute (8) Sepsis Status: Acute (9) UTI (urinary tract infection) Status: Acute (10) Congestive heart failure (CHF) Status: Chronic (11) Coronary artery disease Status: Chronic (12) Diabetes mellitus Status: Chronic (13) Hypertension Status: Chronic - Assessment and Plan (Free Text) Plan: continue iv antibiotics,,,current meds, pt,
--- NOTE | 2017-01-25 09:11 | CP.PCM.PN ---
Subjective - Date & Time of Evaluation Date of Evaluation: 01/23/17 Time of Evaluation: 17:00 - Subjective Subjective: feel better no new c/o , no chest pain, little cough, wheeze Objective - Vital Signs/Intake and Output Vital Signs (last 24 hours): Temp Pulse Resp BP Pulse Ox 98.7 F 86 20 113/72 96 01/23/17 10:00 01/23/17 17:56 01/23/17 10:00 01/23/17 17:56 01/23/17 10:00 - Medications Medications: Current Medications Arformoterol Tartrate (Brovana) 15 mcg IH [id number] [facility] Aspirin (Ecotrin) 81 mg PO 0800 AN[facility]Y PRN Reason: Protocol Last Admin: 01/23/17 07:57 Dose: 81 mg Atorvastatin Calcium (Lipitor) 10 mg PO 1800 [facility] PRN Reason: Protocol Last Admin: 01/23/17 17:57 Dose: 10 mg Budesonide (Pulmicort Respules) 0.5 mg IH [id number] [facility] Calcium/Vitamin D (Oscal-D 250 Mg-125 Units Tab) 1 tab PO DAILY [facility] PRN Reason: Protocol Last Admin: 01/23/17 10:05 Dose: 1 tab Carvedilol (Coreg) 12.5 mg PO 0800,1800 [facility] PRN Reason: Protocol Last Admin: 01/23/17 17:56 Dose: 12.5 mg Ferrous Sulfate (Feosol) 324 mg PO 0800,1800 [facility] PRN Reason: Protocol Last Admin: 01/23/17 17:57 Dose: 324 mg Furosemide (Lasix) 40 mg PO DAILY [facility] PRN Reason: Protocol Last Admin: 01/20/17 09:21 Dose: 40 mg Ceftazidime/Avibactam 0.94 gm/ (Sodium Chloride) 100 mls @ 50 mls/hr IV 0600, 1800 [facility] Last Admin: 01/23/17 18:35 Dose: 50 mls/hr Insulin Detemir (Levemir) 5 unit SC 1000,2200 [facility] PRN Reason: Protocol Last Admin: 01/23/17 21:44 Dose: 5 unit Insulin Human Lispro (Humalog Low) 0 units SC ACHS [facility] PRN Reason: Protocol Last Admin: 01/23/17 21:43 Dose: Not Given Levalbuterol HCl (Xopenex) 0.63 mg IH Q4H PRN PRN Reason: Shortness of Breath Multivitamins (Thera Tab) 1 tab PO DAILY [facility] Last Admin: 01/23/17 10:06 Dose: 1 tab Non-Formulary Medication (Dutasteride [Dutasteride]) 1 cap PO DAILY [facility] Last Admin: 01/23/17 10:04 Dose: 1 cap Non-Formulary Medication (Sacubitril/Valsartan [Entresto 24 Mg-26 Mg Tablet]) 1 tab PO BID [facility] Last Admin: 01/23/17 17:57 Dose: 1 tab Pantoprazole Sodium (Protonix Ec Tab) 40 mg PO 0630 [facility] PRN Reason: Protocol Last Admin: 01/23/17 06:08 Dose: 40 mg Tamsulosin HCl (Flomax) 0.4 mg PO 1800 [facility] PRN Reason: Protocol Last Admin: 01/23/17 17:57 Dose: 0.4 mg Warfarin Sodium (Coumadin) 2 mg PO 1800 [facility] PRN Reason: Protocol Last Admin: 01/23/17 17:56 Dose: 2 mg - Labs Labs: 01/23/17 07:00 01/23/17 07:00 PT 31.6 Seconds (9.9-11.8) H* 01/23/17 07:00 INR 2.93 (0.93-1.08) H 01/23/17 07:00 - Constitutional Appears: Well - Head Exam Head Exam: ATRAUMATIC, NORMAL INSPECTION, NORMOCEPHALIC - Eye Exam Eye Exam: EOMI, Normal appearance, PERRL - ENT Exam ENT Exam: Mucous Membranes Moist, Normal Exam. absent: Mucous Membranes Dry, Normal External Ear Exam, Normal Oropharynx, TM's Normal Bilaterally - Neck Exam Neck Exam: Full ROM, Normal Inspection. absent: Lymphadenopathy - Respiratory Exam Respiratory Exam: Clear to Ausculation Bilateral, NORMAL BREATHING PATTERN - Cardiovascular Exam Cardiovascular Exam: REGULAR RHYTHM, +S1, +S2. absent: Murmur - GI/Abdominal Exam GI & Abdominal Exam: Soft, Normal Bowel Sounds. absent: Tenderness Additional comments: colostomy bag - Rectal Exam Rectal Exam: Deferred, NORMAL INSPECTION - Neurological Exam Neuro motor strength exam: Left Upper Extremity: 4, Right Upper Extremity: 5, Left Lower Extremity: 4, Right Lower Extremity: 5 - Psychiatric Exam Psychiatric exam: Agitated, Anxious, Depressed, Flat Affect, Homicidal Ideation , Manic, Normal Affect, Normal Mood, Suicidal Ideation - Skin Skin Exam: Dry, Intact, Normal Color, Warm Assessment and Plan (1) A-fib Status: Acute (2) Abdominal aneurysm Status: Acute (3) Anemia Status: Acute (4) Attention to ileostomy Status: Acute (5) Hyperglycemia Status: Acute (6) Renal failure Status: Acute (7) Renal failure (ARF), acute on chronic Status: Acute (8) Sepsis Status: Acute (9) UTI (urinary tract infection) Status: Acute (10) Congestive heart failure (CHF) Status: Chronic (11) Coronary artery disease Status: Chronic (12) Diabetes mellitus Status: Chronic (13) Hypertension Status: Chronic - Assessment and Plan (Free Text) Plan: add neublizer, pulmocort, brovana, xopenix, iv antibiotics continue current meds
[2017-01-25] MEDS: Multivitamin Therapeutic Tab PO SCH (09:54)
[2017-01-25] MEDS: Calcium-Vit D 250 mg-125 Units Tab UD PO SCH (09:55)
[2017-01-25] MEDS: VALSARTAN PO SCH ×2 (09:56→17:07)
[2017-01-25] MEDS: Insulin Detemir 100 units/ml Vial (Levemir) SC SCH ×2 (09:56→21:34)
[2017-01-25] MEDS: SACUBITRIL PO SCH ×2 (09:56→17:07)
[2017-01-25] MEDS: DUTASTERIDE PO SCH (09:56)
--- NOTE | 2017-01-25 09:58 | CP.PCM.PN ---
Subjective - Date & Time of Evaluation Date of Evaluation: 01/25/17 Time of Evaluation: 09:10 - Subjective Subjective: Awake, alert Physical Examination: Elderly male lying in bed Vital signs reviewed HEENT: NC, AT Neck: Supple, No JVD Lungs: bilateral equal air entry, no rales CVS: S1 S2 irregular, no murmur Abdomen: soft, non-tender, non-distended, BS + Ext: No edema Labs: Reviewed Meds: Reviewed Assesment and Plan: 1. [place] superimposed on CKD4, likely pre-renal, resolving 2. Resistant Klebsiella UTI, on Ceftaz/avibactam now 3. Hyponatremia,mild chronic, likely depletional 4. NIDDM 5. Hypertension 6. CHF 7. Hyperkalemia, not on any supplements, ?? Type IV RTA 1. Con't PO Lasix 2. Push PO intake 3. Avoid Nephrotoxins 4. Repeat UA/U c/s -ve 5. On PO NaHCO3 to correct acidosis and hyperkalemia Objective - Vital Signs/Intake and Output Vital Signs (last 24 hours): Temp Pulse Resp BP Pulse Ox 97.7 F 112 H 20 128/63 98 01/24/17 16:00 01/25/17 07:52 01/24/17 16:00 01/25/17 07:52 01/24/17 16:00 - Medications Medications: Current Medications Arformoterol Tartrate (Brovana) 15 mcg IH [id number] [facility] Last Admin: 01/25/17 07:19 Dose: 15 mcg Aspirin (Ecotrin) 81 mg PO 0800 AN[facility]Y PRN Reason: Protocol Last Admin: 01/25/17 07:56 Dose: 81 mg Atorvastatin Calcium (Lipitor) 10 mg PO 1800 [facility] PRN Reason: Protocol Last Admin: 01/24/17 17:22 Dose: 10 mg Budesonide (Pulmicort Respules) 0.5 mg IH [id number] [facility] Last Admin: 01/25/17 07:19 Dose: 0.5 mg Calcium/Vitamin D (Oscal-D 250 Mg-125 Units Tab) 1 tab PO DAILY [facility] PRN Reason: Protocol Last Admin: 01/24/17 10:04 Dose: 1 tab Carvedilol (Coreg) 12.5 mg PO 0800,1800 [facility] PRN Reason: Protocol Last Admin: 01/25/17 07:52 Dose: 12.5 mg Ferrous Sulfate (Feosol) 324 mg PO 0800,1800 [facility] PRN Reason: Protocol Last Admin: 01/25/17 07:52 Dose: 324 mg Furosemide (Lasix) 40 mg PO DAILY [facility] PRN Reason: Protocol Last Admin: 01/20/17 09:21 Dose: 40 mg Ceftazidime/Avibactam 0.94 gm/ (Sodium Chloride) 100 mls @ 50 mls/hr IV 0600, 1800 [facility] Last Admin: 01/25/17 05:32 Dose: 50 mls/hr Insulin Detemir (Levemir) 5 unit SC 1000,2200 [facility] PRN Reason: Protocol Last Admin: 01/24/17 22:03 Dose: 5 unit Insulin Human Lispro (Humalog Low) 0 units SC ACHS [facility] PRN Reason: Protocol Last Admin: 01/25/17 07:03 Dose: 1 units Levalbuterol HCl (Xopenex) 0.63 mg IH Q4H PRN PRN Reason: Shortness of Breath Multivitamins (Thera Tab) 1 tab PO DAILY [facility] Last Admin: 01/24/17 10:05 Dose: 1 tab Non-Formulary Medication (Dutasteride [Dutasteride]) 1 cap PO DAILY [facility] Last Admin: 01/24/17 10:04 Dose: 1 cap Non-Formulary Medication (Sacubitril/Valsartan [Entresto 24 Mg-26 Mg Tablet]) 1 tab PO BID [facility] Last Admin: 01/24/17 17:26 Dose: 1 tab Pantoprazole Sodium (Protonix Ec Tab) 40 mg PO 0630 [facility] PRN Reason: Protocol Last Admin: 01/25/17 05:39 Dose: 40 mg Sodium Bicarbonate (Sodium Bicarbonate Tab) 650 mg PO BID [facility] Last Admin: 01/24/17 17:23 Dose: 650 mg Tamsulosin HCl (Flomax) 0.4 mg PO 1800 [facility] PRN Reason: Protocol Last Admin: 01/24/17 17:22 Dose: 0.4 mg Warfarin Sodium (Coumadin) 2 mg PO 1800 [facility] PRN Reason: Protocol Last Admin: 01/24/17 17:22 Dose: 2 mg - Labs Labs: 01/25/17 06:15 01/25/17 06:15 PT 34.8 Seconds (9.9-11.8) H* 01/25/17 06:15 INR 3.22 (0.93-1.08) H 01/25/17 06:15
--- NOTE | 2017-01-25 10:42 | CP.PCM.PN ---
Subjective - Date & Time of Evaluation Date of Evaluation: 01/24/17 Time of Evaluation: 21:00 - Subjective Subjective: feel better no chest pain, wants to go home. no respiratory distress Objective - Vital Signs/Intake and Output Vital Signs (last 24 hours): Temp Pulse Resp BP Pulse Ox 97.7 F 112 H 20 128/63 98 01/24/17 16:00 01/25/17 07:52 01/24/17 16:00 01/25/17 07:52 01/24/17 16:00 - Medications Medications: Current Medications Arformoterol Tartrate (Brovana) 15 mcg IH [id number] [facility] Last Admin: 01/25/17 07:19 Dose: 15 mcg Aspirin (Ecotrin) 81 mg PO 0800 [facility] PRN Reason: Protocol Last Admin: 01/25/17 07:56 Dose: 81 mg Atorvastatin Calcium (Lipitor) 10 mg PO 1800 [facility] PRN Reason: Protocol Last Admin: 01/24/17 17:22 Dose: 10 mg Budesonide (Pulmicort Respules) 0.5 mg IH [id number] [facility] Last Admin: 01/25/17 07:19 Dose: 0.5 mg Calcium/Vitamin D (Oscal-D 250 Mg-125 Units Tab) 1 tab PO DAILY [facility] PRN Reason: Protocol Last Admin: 01/25/17 09:55 Dose: 1 tab Carvedilol (Coreg) 12.5 mg PO 0800,1800 [facility] PRN Reason: Protocol Last Admin: 01/25/17 07:52 Dose: 12.5 mg Ferrous Sulfate (Feosol) 324 mg PO 0800,1800 [facility] PRN Reason: Protocol Last Admin: 01/25/17 07:52 Dose: 324 mg Furosemide (Lasix) 40 mg PO DAILY [facility] PRN Reason: Protocol Last Admin: 01/20/17 09:21 Dose: 40 mg Ceftazidime/Avibactam 0.94 gm/ (Sodium Chloride) 100 mls @ 50 mls/hr IV 0600, 1800 [facility] Last Admin: 01/25/17 05:32 Dose: 50 mls/hr Insulin Detemir (Levemir) 5 unit SC 1000,2200 [facility] PRN Reason: Protocol Last Admin: 01/25/17 09:56 Dose: 5 unit Insulin Human Lispro (Humalog Low) 0 units SC ACHS [facility] PRN Reason: Protocol Last Admin: 01/25/17 07:03 Dose: 1 units Levalbuterol HCl (Xopenex) 0.63 mg IH Q4H PRN PRN Reason: Shortness of Breath Multivitamins (Thera Tab) 1 tab PO DAILY [facility] Last Admin: 01/25/17 09:54 Dose: 1 tab Non-Formulary Medication (Dutasteride [Dutasteride]) 1 cap PO DAILY [facility] Last Admin: 01/25/17 09:56 Dose: 1 cap Non-Formulary Medication (Sacubitril/Valsartan [Entresto 24 Mg-26 Mg Tablet]) 1 tab PO BID [facility] Last Admin: 01/25/17 09:56 Dose: 1 tab Pantoprazole Sodium (Protonix Ec Tab) 40 mg PO 0630 [facility] PRN Reason: Protocol Last Admin: 01/25/17 05:39 Dose: 40 mg Sodium Bicarbonate (Sodium Bicarbonate Tab) 650 mg PO BID [facility] Last Admin: 01/25/17 09:55 Dose: 650 mg Tamsulosin HCl (Flomax) 0.4 mg PO 1800 [facility] PRN Reason: Protocol Last Admin: 01/24/17 17:22 Dose: 0.4 mg Warfarin Sodium (Coumadin) 2 mg PO 1800 [facility] PRN Reason: Protocol Last Admin: 01/24/17 17:22 Dose: 2 mg - Labs Labs: 01/25/17 06:15 01/25/17 06:15 PT 34.8 Seconds (9.9-11.8) H* 01/25/17 06:15 INR 3.22 (0.93-1.08) H 01/25/17 06:15 - Constitutional Appears: Well - Head Exam Head Exam: ATRAUMATIC, NORMAL INSPECTION, NORMOCEPHALIC - Eye Exam Eye Exam: EOMI, Normal appearance, PERRL - ENT Exam ENT Exam: Mucous Membranes Moist, Normal Exam - Neck Exam Neck Exam: Full ROM, Normal Inspection. absent: Lymphadenopathy - Respiratory Exam Respiratory Exam: Clear to Ausculation Bilateral, NORMAL BREATHING PATTERN - Cardiovascular Exam Cardiovascular Exam: Tachycardia, REGULAR RHYTHM, +S1, +S2. absent: Murmur - GI/Abdominal Exam GI & Abdominal Exam: Soft, Normal Bowel Sounds. absent: Tenderness Additional comments: colostomy bag - Neurological Exam Neurological Exam: Abnormal Gait - Psychiatric Exam Psychiatric exam: Normal Affect, Normal Mood Assessment and Plan (1) A-fib Status: Acute (2) Abdominal aneurysm Status: Acute (3) Anemia Status: Acute (4) Attention to ileostomy Status: Acute (5) Hyperglycemia Assessment & Plan: contiue iv antibiotics till day 7. Status: Acute (6) Renal failure Status: Acute (7) Renal failure (ARF), acute on chronic Status: Acute (8) Sepsis Status: Acute (9) UTI (urinary tract infection) Status: Acute (10) Congestive heart failure (CHF) Status: Chronic (11) Coronary artery disease Status: Chronic (12) Diabetes mellitus Status: Chronic (13) Hypertension Status: Chronic
--- NOTE | 2017-01-25 12:00 | CP.PCM.CON ---
History of Present Illness - History of Present Illness History of Present Illness: Reason for consult: cardiac eval, 71 year old maler with pMHx od CAD. S/p PTCA CMP. S/p AICD PAF CKD S/p Colostomy S/p endo vascular stent multiple admission with UTI SBO and decomnsated CHF who admitted with UTI denies chest pain, Sob, PMhx as abobe Shx No hx of ETH/ smoking Fhx non contributing. Review of Systems - Review of Systems Systems not reviewed;Unavailable: Acuity of Condition - Constitutional Constitutional: As Per HPI - EENT Eyes: As Per HPI Nose/Mouth/Throat: As Per HPI - Cardiovascular Cardiovascular: As Per HPI - Respiratory Respiratory: As Per HPI - Gastrointestinal Gastrointestinal: As Per HPI Past Patient History - Infectious Disease Hx of Infectious Diseases: None, ESL - Tetanus Immunizations Tetanus Immunization: Unknown - Past Medical History & Family History Past Medical History?: Yes - Past Social History Smoking Status: Former Smoker Alcohol: None Drugs: Denies Home Situation {Lives}: With Family - CARDIAC Hx Congestive Heart Failure: Yes Hx Hypertension: Yes - PULMONARY Hx Chronic Obstructive Pulmonary Disease (COPD): Yes - NEUROLOGICAL HX Cerebrovascular Accident: Yes - HEENT Hx HEENT Problems: Yes Hx Cataracts: Yes - RENAL Hx Chronic Kidney Disease: Yes (Renal insufficinecy) Hx Dialysis: No - ENDOCRINE/METABOLIC Hx Diabetes Mellitus Type 1: Yes - HEMATOLOGICAL/ONCOLOGICAL Hx Blood Disorders: Yes Hx Anemia: Yes - INTEGUMENTARY Hx Dermatological Problems: No - MUSCULOSKELETAL/RHEUMATOLOGICAL Hx Musculoskeletal Disorders: Yes Hx Falls: Yes - GASTROINTESTINAL Hx Gastrointestinal Disorders: Yes (BOWEL OBSTRUCTION) Hx Colitis: Yes Hx Colostomy: Yes - GENITOURINARY/GYNECOLOGICAL Hx Genitourinary Disorders: Yes Hx Prostate Problems: Yes (BPH) - PSYCHIATRIC Hx Emotional Abuse: No Hx Physical Abuse: No Hx Substance Use: No - SURGICAL HISTORY Hx Surgeries: Yes Hx Abdominal Aortic Aneurysm Repair: Yes (complicated by endoleak) Other/Comment: Colostomy, Rside - ANESTHESIA Hx Anesthesia: Yes Hx Anesthesia Reactions: No Hx Malignant Hyperthermia: No Meds Allergies/Adverse Reactions: Allergies Allergy/AdvReac Type Severity Reaction Status Date / Time No Known Allergies Allergy Verified 01/21/17 08:28 - Medications Medications: Current Medications Arformoterol Tartrate (Brovana) 15 mcg IH [id number] [facility] Last Admin: 01/25/17 07:19 Dose: 15 mcg Aspirin (Ecotrin) 81 mg PO 0800 [facility] PRN Reason: Protocol Last Admin: 01/25/17 07:56 Dose: 81 mg Atorvastatin Calcium (Lipitor) 10 mg PO 1800 [facility] PRN Reason: Protocol Last Admin: 01/24/17 17:22 Dose: 10 mg Budesonide (Pulmicort Respules) 0.5 mg IH [id number] [facility] Last Admin: 01/25/17 07:19 Dose: 0.5 mg Calcium/Vitamin D (Oscal-D 250 Mg-125 Units Tab) 1 tab PO DAILY [facility] PRN Reason: Protocol Last Admin: 01/25/17 09:55 Dose: 1 tab Carvedilol (Coreg) 12.5 mg PO 0800,1800 [facility] PRN Reason: Protocol Last Admin: 01/25/17 07:52 Dose: 12.5 mg Ferrous Sulfate (Feosol) 324 mg PO 0800,1800 [facility] PRN Reason: Protocol Last Admin: 01/25/17 07:52 Dose: 324 mg Furosemide (Lasix) 40 mg PO DAILY [facility] PRN Reason: Protocol Last Admin: 01/20/17 09:21 Dose: 40 mg Ceftazidime/Avibactam 0.94 gm/ (Sodium Chloride) 100 mls @ 50 mls/hr IV 0600, 1800 [facility] Last Admin: 01/25/17 05:32 Dose: 50 mls/hr Insulin Detemir (Levemir) 5 unit SC 1000,2200 [facility] PRN Reason: Protocol Last Admin: 01/25/17 09:56 Dose: 5 unit Insulin Human Lispro (Humalog Low) 0 units SC ACHS [facility] PRN Reason: Protocol Last Admin: 01/25/17 07:03 Dose: 1 units Levalbuterol HCl (Xopenex) 0.63 mg IH Q4H PRN PRN Reason: Shortness of Breath Multivitamins (Thera Tab) 1 tab PO DAILY [facility] Last Admin: 01/25/17 09:54 Dose: 1 tab Non-Formulary Medication (Dutasteride [Dutasteride]) 1 cap PO DAILY [facility] Last Admin: 01/25/17 09:56 Dose: 1 cap Non-Formulary Medication (Sacubitril/Valsartan [Entresto 24 Mg-26 Mg Tablet]) 1 tab PO BID [facility] Last Admin: 01/25/17 09:56 Dose: 1 tab Pantoprazole Sodium (Protonix Ec Tab) 40 mg PO 0630 [facility] PRN Reason: Protocol Last Admin: 01/25/17 05:39 Dose: 40 mg Sodium Bicarbonate (Sodium Bicarbonate Tab) 650 mg PO BID [facility] Last Admin: 01/25/17 09:55 Dose: 650 mg Tamsulosin HCl (Flomax) 0.4 mg PO 1800 [facility] PRN Reason: Protocol Last Admin: 01/24/17 17:22 Dose: 0.4 mg Warfarin Sodium (Coumadin) 2 mg PO 1800 [facility] PRN Reason: Protocol Last Admin: 01/24/17 17:22 Dose: 2 mg Physical Exam - Head Exam Head Exam: ATRAUMATIC - Eye Exam Eye Exam: Conjunctival injection - ENT Exam ENT Exam: Mucous Membranes Dry - Neck Exam Neck exam: Positive for: Full Rom - Respiratory Exam Respiratory Exam: Clear to Auscultation Bilateral - Cardiovascular Exam Cardiovascular Exam: REGULAR RHYTHM - GI/Abdominal Exam GI & Abdominal Exam: Soft Additional comments: Colostomy in place. Results - Vital Signs Recent Vital Signs: Last Vital Signs Temp 98.3 F 01/25/17 10:00 Pulse 111 H 01/25/17 10:00 Resp 20 01/25/17 10:00 BP 117/82 01/25/17 10:00 Pulse Ox 99 01/25/17 10:00 - Labs Result Diagrams: 01/25/17 06:15 01/25/17 06:15 Labs: Laboratory Results - last 24 hr 01/23/17 01/24/17 01/24/17 05:28 11:12 13:12 WBC RBC Hgb Hct MCV MCH MCHC RDW Plt Count MPV PT INR Sodium Potassium Chloride Carbon Dioxide Anion Gap BUN Creatinine Est GFR ( Amer) Est GFR (Non-Af Amer) POC Glucose (mg/dL) 149 H 265 H 285 H Random Glucose Calcium Total Bilirubin AST ALT Alkaline Phosphatase Total Protein Albumin Globulin Albumin/Globulin Ratio 01/24/17 01/24/17 01/25/17 17:09 21:56 05:20 WBC RBC Hgb Hct MCV MCH MCHC RDW Plt Count MPV PT INR Sodium Potassium Chloride Carbon Dioxide Anion Gap BUN Creatinine Est GFR ( Amer) Est GFR (Non-Af Amer) POC Glucose (mg/dL) 257 H 260 H 173 H Random Glucose Calcium Total Bilirubin AST ALT Alkaline Phosphatase Total Protein Albumin Globulin Albumin/Globulin Ratio 01/25/17 01/25/17 01/25/17 06:15 06:15 06:15 WBC 5.9 RBC 3.93 Hgb 10.0 L Hct 30.9 L MCV 78.6 L MCH 25.4 MCHC 32.4 RDW 15.0 H Plt Count 333 MPV 10.8 PT 34.8 H* INR 3.22 H Sodium 138 Potassium 5.4 H Chloride 110 Carbon Dioxide 18 L Anion Gap 15 BUN 50 H Creatinine 2.2 H Est GFR ( Amer) 36 Est GFR (Non-Af Amer) 29 POC Glucose (mg/dL) Random Glucose 141 H Calcium 9.0 Total Bilirubin 0.3 AST 33 ALT 34 Alkaline Phosphatase 122 Total Protein 6.9 Albumin 3.1 Globulin 3.8 Albumin/Globulin Ratio 0.8 L Assessment & Plan - Assessment and Plan (Free Text) Assessment: CAD. 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 continue antibiotics. Pt/INR in am - Date & Time Date: 01/25/17 Time: 10:30
--- NOTE | 2017-01-25 19:38 | CP.PCM.PN ---
Subjective - Date & Time of Evaluation Date of Evaluation: 01/25/17 Time of Evaluation: 12:15 - Subjective Subjective: Comfortable, afebrile, not in distress. Objective - Vital Signs/Intake and Output Vital Signs (last 24 hours): Temp Pulse Resp BP Pulse Ox 97.7 F 111 H 20 123/86 98 01/24/17 16:00 01/24/17 17:25 01/24/17 16:00 01/24/17 17:25 01/24/17 16:00 - Medications Medications: Current Medications Arformoterol Tartrate (Brovana) 15 mcg IH [id number] [facility] Last Admin: 01/24/17 21:00 Dose: Not Given Aspirin (Ecotrin) 81 mg PO 0800 [facility] PRN Reason: Protocol Last Admin: 01/24/17 08:00 Dose: 81 mg Atorvastatin Calcium (Lipitor) 10 mg PO 1800 [facility] PRN Reason: Protocol Last Admin: 01/24/17 17:22 Dose: 10 mg Budesonide (Pulmicort Respules) 0.5 mg IH [id number] [facility] Last Admin: 01/24/17 21:00 Dose: Not Given Calcium/Vitamin D (Oscal-D 250 Mg-125 Units Tab) 1 tab PO DAILY [facility] PRN Reason: Protocol Last Admin: 01/24/17 10:04 Dose: 1 tab Carvedilol (Coreg) 12.5 mg PO 0800,1800 [facility] PRN Reason: Protocol Last Admin: 01/24/17 17:25 Dose: 12.5 mg Ferrous Sulfate (Feosol) 324 mg PO 0800,1800 [facility] PRN Reason: Protocol Last Admin: 01/24/17 17:22 Dose: 324 mg Furosemide (Lasix) 40 mg PO DAILY [facility] PRN Reason: Protocol Last Admin: 01/20/17 09:21 Dose: 40 mg Ceftazidime/Avibactam 0.94 gm/ (Sodium Chloride) 100 mls @ 50 mls/hr IV 0600, 1800 [facility] Last Admin: 01/25/17 05:32 Dose: 50 mls/hr Insulin Detemir (Levemir) 5 unit SC 1000,2200 [facility] PRN Reason: Protocol Last Admin: 01/24/17 22:03 Dose: 5 unit Insulin Human Lispro (Humalog Low) 0 units SC ACHS [facility] PRN Reason: Protocol Last Admin: 01/24/17 22:05 Dose: Not Given Levalbuterol HCl (Xopenex) 0.63 mg IH Q4H PRN PRN Reason: Shortness of Breath Multivitamins (Thera Tab) 1 tab PO DAILY [facility] Last Admin: 01/24/17 10:05 Dose: 1 tab Non-Formulary Medication (Dutasteride [Dutasteride]) 1 cap PO DAILY [facility] Last Admin: 01/24/17 10:04 Dose: 1 cap Non-Formulary Medication (Sacubitril/Valsartan [Entresto 24 Mg-26 Mg Tablet]) 1 tab PO BID [facility] Last Admin: 01/24/17 17:26 Dose: 1 tab Pantoprazole Sodium (Protonix Ec Tab) 40 mg PO 0630 [facility] PRN Reason: Protocol Last Admin: 01/25/17 05:39 Dose: 40 mg Sodium Bicarbonate (Sodium Bicarbonate Tab) 650 mg PO BID [facility] Last Admin: 01/24/17 17:23 Dose: 650 mg Tamsulosin HCl (Flomax) 0.4 mg PO 1800 [facility] PRN Reason: Protocol Last Admin: 01/24/17 17:22 Dose: 0.4 mg Warfarin Sodium (Coumadin) 2 mg PO 1800 [facility] PRN Reason: Protocol Last Admin: 01/24/17 17:22 Dose: 2 mg - Labs Labs: 01/24/17 09:45 01/24/17 09:45 PT 33.6 Seconds (9.9-11.8) H* 01/24/17 09:45 INR 3.11 (0.93-1.08) H 01/24/17 09:45 - Constitutional Appears: Non-toxic, No Acute Distress - Head Exam Head Exam: NORMAL INSPECTION - ENT Exam ENT Exam: Mucous Membranes Moist - Neck Exam Neck Exam: absent: Lymphadenopathy, Meningismus - Respiratory Exam Respiratory Exam: Decreased Breath Sounds - Cardiovascular Exam Cardiovascular Exam: +S1, +S2 - GI/Abdominal Exam GI & Abdominal Exam: Soft. absent: Tenderness Assessment and Plan - Assessment and Plan (Free Text) Plan: Assessment Consider UTI with carbapenem-resistant Klebsiella history of ESBL-producing Klebsiella bacteremia, secondary to the port S/P removal S/P treatment for healthcare-associated pneumonia history of C diff associated diarrhea history of UTI with yeast history healthcare-associated pneumonia Severe cardiomyopathy with EF 10-15 % paroxysmal atrial fibrillation Coronary artery disease S/P stenting history of aortic aneurysm history of SVT S/P AICD placement S/P procedure on his prostate in 2012 S/P partial colectomy and colostomy Plan continue Avycaz (day 7) and will continue to monitor clinically - should target 7 days of antibiotics; follow up repeat urine cx from 01/20/2017 are now negative - will d/c antibiotics today
[2017-01-26 06:08] LABS: BASO # 0.02 K/mm3 (0.0-2.0); BASO % 0.3 % (0.0-3.0); EOS # 0.3 (0.0-0.7); EOS % 4.3 % (1.5-5.0); GRAN % 69.7 % (50.0-68.0); HEMOGLOBIN 10.2 gm/dL (14.0-18.0); LYMPH # 0.9 (1.2-3.4); LYMPH % 14.2 % (22.0-35.0); MEAN CORPUSCULAR HEMOGLOBIN 25.5 pg (25.0-35.0); MEAN CORPUSCULAR HGB CONC 32.7 g/dl (31.0-37.0); MEAN PLATELET VOLUME 10.4 fl (7.0-11.0); MONO # 0.7 (0.1-0.6); MONO % 11.5 % (1.0-6.0); PLATELET COUNT 369 10^3/uL (120.0-450.0); RED CELL DISTRIBUTION WIDTH 15.1 % (11.5-14.5); WHITE BLOOD COUNT 6.5 10^3/ul (4.5-11.0)
[2017-01-26 06:12] LABS: INR 3.22 (0.93-1.08); PROTHROMBIN TIME 34.8 Seconds (9.9-11.8)
[2017-01-26 06:31] LABS: CALCIUM 9.2 mg/dL (8.4-10.5); MAGNESIUM 1.9 mg/dL (1.7-2.2)
[2017-01-26] MEDS: Insulin Lispro (humaLOG) LOW Coverage SC SCH ×2 (06:50→11:49)
[2017-01-26] MEDS: Pantoprazole 40 mg EC Tab PO SCH (06:56)
[2017-01-26] MEDS: Budesonide 0.5 mg/2 ml Inhal Susp UD IH SCH (07:10)
[2017-01-26] MEDS: Arformoterol 15 mcg/2 ml Inh Sol IH SCH (07:10)
[2017-01-26] MEDS: DUTASTERIDE PO SCH (09:31)
[2017-01-26] MEDS: Insulin Detemir 100 units/ml Vial (Levemir) SC SCH (09:32)
[2017-01-26] MEDS: Calcium-Vit D 250 mg-125 Units Tab UD PO SCH (09:33)
[2017-01-26] MEDS: Multivitamin Therapeutic Tab PO SCH (09:34)
[2017-01-26] MEDS: SACUBITRIL PO SCH (09:34)
[2017-01-26] MEDS: VALSARTAN PO SCH (09:34)
[2017-01-26 11:31] VITALS: BP 132/84; PULSE 76; RESP 20; TEMP 97.8; O2SAT 99
--- NOTE | 2017-01-26 13:26 | CP.PCM.PN ---
Subjective - Date & Time of Evaluation Date of Evaluation: 01/26/17 Time of Evaluation: 13:20 - Subjective Subjective: Awake, alert Physical Examination: Elderly male sitting in bed Vital signs reviewed HEENT: NC, AT Neck: Supple, No JVD Lungs: bilateral equal air entry, no rales CVS: S1 S2 irregular, no murmur Abdomen: soft, non-tender, non-distended, BS + Ext: No edema Labs: Reviewed Meds: Reviewed Assesment and Plan: 1. [place] superimposed on CKD4, likely pre-renal, resolving 2. Resistant Klebsiella UTI, on Ceftaz/avibactam now 3. Hyponatremia,mild chronic, likely depletional 4. NIDDM 5. Hypertension 6. CHF 7. Hyperkalemia, not on any supplements, ?? Type IV RTA 1. Con't PO Lasix 2. Push PO intake 3. Avoid Nephrotoxins 4. Con't PO NaHCO3 to correct acidosis and hyperkalemia 5. PT Objective - Vital Signs/Intake and Output Vital Signs (last 24 hours): Temp Pulse Resp BP Pulse Ox 97.8 F 76 20 132/84 99 01/26/17 10:00 01/26/17 10:00 01/26/17 10:00 01/26/17 10:00 01/26/17 10:00 - Medications Medications: Current Medications Arformoterol Tartrate (Brovana) 15 mcg IH [id number] [facility] Last Admin: 01/26/17 07:10 Dose: 15 mcg Aspirin (Ecotrin) 81 mg PO 0800 [facility] PRN Reason: Protocol Last Admin: 01/26/17 07:58 Dose: 81 mg Atorvastatin Calcium (Lipitor) 10 mg PO 1800 [facility] PRN Reason: Protocol Last Admin: 01/25/17 17:07 Dose: 10 mg Budesonide (Pulmicort Respules) 0.5 mg IH [id number] [facility] Last Admin: 01/26/17 07:10 Dose: 0.5 mg Calcium/Vitamin D (Oscal-D 250 Mg-125 Units Tab) 1 tab PO DAILY [facility] PRN Reason: Protocol Last Admin: 01/26/17 09:33 Dose: 1 tab Carvedilol (Coreg) 25 mg PO 0800,1800 [facility] Ferrous Sulfate (Feosol) 324 mg PO 0800,1800 [facility] PRN Reason: Protocol Last Admin: 01/26/17 07:58 Dose: 324 mg Furosemide (Lasix) 40 mg PO DAILY [facility] PRN Reason: Protocol Last Admin: 01/20/17 09:21 Dose: 40 mg Insulin Detemir (Levemir) 5 unit SC 1000,2200 [facility] PRN Reason: Protocol Last Admin: 01/26/17 09:32 Dose: 5 unit Insulin Human Lispro (Humalog Low) 0 units SC ACHS [facility] PRN Reason: Protocol Last Admin: 01/26/17 11:49 Dose: 3 units Levalbuterol HCl (Xopenex) 0.63 mg Q4H PRN PRN Reason: Shortness of Breath Multivitamins (Thera Tab) 1 tab PO DAILY [facility] Last Admin: 01/26/17 09:34 Dose: 1 tab Non-Formulary Medication (Dutasteride [Dutasteride]) 1 cap PO DAILY [facility] Last Admin: 01/26/17 09:31 Dose: 1 cap Non-Formulary Medication (Sacubitril/Valsartan [Entresto 24 Mg-26 Mg Tablet]) 1 tab PO BID [facility] Last Admin: 01/26/17 09:34 Dose: 1 tab Pantoprazole Sodium (Protonix Ec Tab) 40 mg PO 0630 [facility] PRN Reason: Protocol Last Admin: 01/26/17 06:56 Dose: 40 mg Sodium Bicarbonate (Sodium Bicarbonate Tab) 650 mg PO BID [facility] Last Admin: 01/26/17 09:40 Dose: 650 mg Tamsulosin HCl (Flomax) 0.4 mg PO 1800 [facility] PRN Reason: Protocol Last Admin: 01/25/17 17:06 Dose: 0.4 mg - Labs Labs: 01/26/17 05:35 01/26/17 05:35 PT 34.8 Seconds (9.9-11.8) H* 01/26/17 05:35 INR 3.22 (0.93-1.08) H 01/26/17 05:35
--- NOTE | 2017-01-26 22:37 | CP.PCM.PN ---
Subjective - Date & Time of Evaluation Date of Evaluation: 01/25/17 Time of Evaluation: 13:00 - Subjective Subjective: feel better no new c/o no chest pain , no dyspnea Objective - Vital Signs/Intake and Output Vital Signs (last 24 hours): Temp Pulse Resp BP Pulse Ox 97.8 F 76 20 132/84 99 01/26/17 10:00 01/26/17 10:00 01/26/17 10:00 01/26/17 10:00 01/26/17 10:00 - Labs Labs: 01/26/17 05:35 01/26/17 05:35 PT 34.8 Seconds (9.9-11.8) H* 01/26/17 05:35 INR 3.22 (0.93-1.08) H 01/26/17 05:35 - Constitutional Appears: Well - Neurological Exam Neurological Exam: Abnormal Gait, Motor Sensory Deficit Neuro motor strength exam: Right Upper Extremity: 3, Right Lower Extremity: 4 Assessment and Plan (1) A-fib Status: Acute (2) Abdominal aneurysm Status: Acute (3) Anemia Status: Acute (4) Attention to ileostomy Status: Acute (5) Hyperglycemia Assessment & Plan: continue iv antibiotics, continue current therapy Status: Acute (6) Renal failure Status: Acute (7) Renal failure (ARF), acute on chronic Status: Acute (8) Sepsis Status: Acute (9) UTI (urinary tract infection) Status: Acute (10) Congestive heart failure (CHF) Status: Chronic (11) Coronary artery disease Status: Chronic (12) Diabetes mellitus Status: Chronic (13) Hypertension Status: Chronic
--- NOTE | 2017-01-26 22:42 | CP.PCM.DIS ---
Provider - Provider Date of Admission: 01/19/17 14:29 Attending physician: Dexter Palacios MD Primary care physician: Dexter Palacios MD Consults: dr hobbs id consult, cardiology dr larson Time Spent in preparation of Discharge (in minutes): 20 Diagnosis - Discharge Diagnosis (1) A-fib Status: Acute (2) Abdominal aneurysm Status: Acute (3) Anemia Status: Acute (4) Attention to ileostomy Status: Acute (5) Hyperglycemia Status: Acute (6) Renal failure Status: Acute (7) Renal failure (ARF), acute on chronic Status: Acute (8) Sepsis Status: Acute (9) UTI (urinary tract infection) Status: Acute (10) Congestive heart failure (CHF) Status: Chronic (11) Coronary artery disease Status: Chronic (12) Diabetes mellitus Status: Chronic (13) Hypertension Status: Chronic Hospital Course - Lab Results Lab Results: Micro Results 01/20/17 14:18 Urine,Random Urine Culture - Final No Growth (<1,000 CFU/ML) Most Recent Lab Values WBC 6.5 10^3/ul (4.5-11.0) 01/26/17 05:35 RBC 4.00 10^6/uL (3.5-6.1) 01/26/17 05:35 Hgb 10.2 gm/dL (14.0-18.0) L 01/26/17 05:35 Hct 31.2 % (42.0-52.0) L 01/26/17 05:35 MCV 78.0 fL (80.0-105.0) L 01/26/17 05:35 MCH 25.5 pg (25.0-35.0) 01/26/17 05:35 MCHC 32.7 g/dl (31.0-37.0) 01/26/17 05:35 RDW 15.1 % (11.5-14.5) H 01/26/17 05:35 Plt Count 369 10^3/uL (120.0-450.0) 01/26/17 05:35 MPV 10.4 fl (7.0-11.0) 01/26/17 05:35 Gran % 69.7 % (50.0-68.0) H 01/26/17 05:35 Lymph % (Auto) 14.2 % (22.0-35.0) L 01/26/17 05:35 [place] % (Auto) 11.5 % (1.0-6.0) H 01/26/17 05:35 Eos % (Auto) 4.3 % (1.5-5.0) 01/26/17 05:35 Baso % (Auto) 0.3 % (0.0-3.0) 01/26/17 05:35 Gran # 4.50 (1.4-6.5) 01/26/17 05:35 Lymph # 0.9 (1.2-3.4) L 01/26/17 05:35 [place] # 0.7 (0.1-0.6) H 01/26/17 05:35 Eos # 0.3 (0.0-0.7) 01/26/17 05:35 Baso # 0.02 K/mm3 (0.0-2.0) 01/26/17 05:35 PT 34.8 Seconds (9.9-11.8) H* 01/26/17 05:35 INR 3.22 (0.93-1.08) H 01/26/17 05:35 Sodium 138 mmol/L (132-148) 01/26/17 05:35 Potassium 5.4 mmol/L (3.6-5.0) H 01/26/17 05:35 Chloride 108 mmol/L (95-110) 01/26/17 05:35 Carbon Dioxide 20 mmol/L (21-33) L 01/26/17 05:35 Anion Gap 15 (10-20) 01/26/17 05:35 BUN 48 mg/dL (7-21) H 01/26/17 05:35 Creatinine 2.2 mg/dL (0.5-1.4) H 01/26/17 05:35 Est GFR ( Amer) 36 01/26/17 05:35 Est GFR (Non-Af Amer) 29 01/26/17 05:35 POC Glucose (mg/dL) 281 mg/dL (65-110) H 01/26/17 10:54 Random Glucose 141 mg/dL (70-110) H 01/26/17 05:35 Calcium 9.2 mg/dL (8.4-10.5) 01/26/17 05:35 Phosphorus 4.1 mg/dL (2.5-4.5) 01/26/17 05:35 Magnesium 1.9 mg/dL (1.7-2.2) 01/26/17 05:35 Total Bilirubin 0.3 mg/dL (0.2-1.3) 01/25/17 06:15 AST 33 U/L (15-59) 01/25/17 06:15 ALT 34 U/L (7-56) 01/25/17 06:15 Alkaline Phosphatase 122 U/L (38-133) 01/25/17 06:15 Total Protein 6.9 g/dL (5.8-8.3) 01/25/17 06:15 Albumin 3.1 g/dL (3.0-4.8) 01/25/17 06:15 Globulin 3.8 gm/dL 01/25/17 06:15 Albumin/Globulin Ratio 0.8 (1.1-1.8) L 01/25/17 06:15 Urine Color Yellow (YELLOW) 01/20/17 14:18 Urine Appearance Sl cloudy (CLEAR) 01/20/17 14:18 Urine pH 6.0 (4.7-8.0) 01/20/17 14:18 Ur Specific [place] 1.020 (1.005-1.035) 01/20/17 14:18 Urine Protein 100 mg/dL (<30 mg/dL) H 01/20/17 14:18 Urine Glucose (UA) Negative mg/dL (NEGATIVE) 01/20/17 14:18 Urine Ketones Negative mg/dL (NEGATIVE) 01/20/17 14:18 Urine Blood Moderate (NEGATIVE) H 01/20/17 14:18 Urine Nitrate Negative (NEGATIVE) 01/20/17 14:18 Urine Bilirubin Negative (NEGATIVE) 01/20/17 14:18 Urine Urobilinogen 0.2 E.U./dL (<1 E.U./dL) 01/20/17 14:18 Ur Leukocyte Esterase Moderate Raj/uL (NEGATIVE) H 01/20/17 14:18 Urine RBC 1 - 3 /hpf (0-2) 01/20/17 14:18 Urine WBC 20 - 25 /hpf (0-6) 01/20/17 14:18 Ur Epithelial Cells 0 - 2 /hpf (0-5) 01/20/17 14:18 Urine Bacteria Few (NEG) 01/20/17 14:18 - Hospital Course Hospital Course: patient was stable, on iv antibiotics,and all his meds Discharge Exam - Head Exam Head Exam: NORMOCEPHALIC - Eye Exam Eye Exam: EOMI, Normal appearance, PERRL - ENT Exam ENT Exam: Mucous Membranes Dry, Mucous Membranes Moist, Normal Exam, Normal External Ear Exam, Normal Oropharynx, TM's Normal Bilaterally - Neck Exam Neck exam: Full Rom, Lymphadenopathy, Meningismus, Normal Inspection, Tenderness , Thyromegaly - Respiratory Exam Respiratory Exam: Accessory Muscle Use, Chest Wall Tenderness, Decreased Breath Sounds, Clear to PA & Lateral, Prolonged Expiratory Phase, Rales, Rhonchi, Wheezes, Respiratory Distress, Stridor, NORMAL BREATHING PATTERN, UNREMARKABLE - GI/Abdominal Exam GI & Abdominal Exam: Bruit, Diminished Bowel Sounds, Distended, Firm, Guarding, Hernia, Hyperactive Bowel Sounds, Hypoactive Bowel Sounds, Mass, Normal Bowel Sounds, Organomegaly, Pulsatile Mass, Rebound, Rigid, Soft, Tenderness, Unremarkable Additional comments: colostomy , - Rectal Exam Rectal Exam: Deferred - Neurological Exam Neurological exam: Abnormal Gait, Motor Sensory Deficit Discharge Plan - Follow Up Plan Condition: GOOD Disposition: HOME/ ROUTINE Instructions: Heart Failure (DC), Atrial Fibrillation (DC), Colostomy Care (DC) , Urinary Tract Infection in Men (DC), Deep Venous Thrombosis (DC), Diabetes Mellitus Type 2 in Adults (DC), Extended Spectrum Beta Lactamase (GEN) Referrals: Dexter Palacios MD [Primary Care Provider] -
== END 2017-01-26 13:39 | disposition home health service (06) | DRG 872 ==
LOC: TRCU 14:29
PROVIDERS: ADMIT Internal Medicine; ATTEND Internal Medicine
PROC: F07Z9FZ Gait Training/Functional Ambulation Treatment using Assistive, Adaptive, Supportive or Protective Equipment (ICD-10-PCS; principal; 2017-01-20)
PROC: F07Z8FZ Transfer Training Treatment using Assistive, Adaptive, Supportive or Protective Equipment (ICD-10-PCS; 2017-01-20)
PROC: F07L6YZ Therapeutic Exercise Treatment of Musculoskeletal System - Lower Back / Lower Extremity using Other Equipment (ICD-10-PCS; 2017-01-20)
PROC: F08Z4FZ Home Management Treatment using Assistive, Adaptive, Supportive or Protective Equipment (ICD-10-PCS; 2017-01-24)
DX: A41.9 Sepsis, unspecified organism (principal); N39.0 Urinary tract infection, site not specified; N18.4 Chronic kidney disease, stage 4 (severe); E87.2 Acidosis; I13.0 Hypertensive heart and chronic kidney disease with heart failure and stage 1 through stage 4 chronic kidney disease, or unspecified chronic kidney disease; I50.9 Heart failure, unspecified; E87.1 Hypo-osmolality and hyponatremia; I48.0 Paroxysmal atrial fibrillation; E11.22 Type 2 diabetes mellitus with diabetic chronic kidney disease; E11.65 Type 2 diabetes mellitus with hyperglycemia; B96.1 Klebsiella pneumoniae [K. pneumoniae] as the cause of diseases classified elsewhere; R31.9 Hematuria, unspecified; I25.5 Ischemic cardiomyopathy; I25.10 Atherosclerotic heart disease of native coronary artery without angina pectoris; Z16.24 Resistance to multiple antibiotics; E78.5 Hyperlipidemia, unspecified; J44.9 Chronic obstructive pulmonary disease, unspecified; E87.5 Hyperkalemia; I71.4 Abdominal aortic aneurysm, without rupture; D64.9 Anemia, unspecified; N40.0 Benign prostatic hyperplasia without lower urinary tract symptoms; Z93.2 Ileostomy status; Z86.73 Personal history of transient ischemic attack (TIA), and cerebral infarction without residual deficits; Z95.810 Presence of automatic (implantable) cardiac defibrillator; Z95.5 Presence of coronary angioplasty implant and graft; Z87.01 Personal history of pneumonia (recurrent); Z87.891 Personal history of nicotine dependence; Z79.01 Long term (current) use of anticoagulants; Z79.4 Long term (current) use of insulin; Z86.718 Personal history of other venous thrombosis and embolism

== ENCOUNTER 2017-03-09 15:04 | Inpatient (IN) | payer OTHER, MEDICAID ==
[2017-03-05 10:37] VITALS: PULSE 78
[2017-03-09 15:33] VITALS: BMI 24.3
[2017-03-09] MEDS ORDERED: Insulin Lispro (humaLOG) LOW Coverage SC SCH (16:30)
[2017-03-09] MEDS: guaiFENesin-DM 600-30 mg ER Tab PO SCH (18:02)
[2017-03-09] MEDS: MethylPREDNISolone 40 mg Vial IVP SCH (18:03)
[2017-03-09] MEDS: Insulin Reg-MEDIUM-Coverage SC SCH ×2 (18:25→22:21)
[2017-03-09] MEDS ORDERED: Pneumococcal 23-Valent Vaccine IM ONE (19:20)
[2017-03-09] MEDS ORDERED: Arformoterol 15 mcg/2 ml Inh Sol IH SCH ×2 (20:00)
[2017-03-09] MEDS: Budesonide 0.5 mg/2 ml Inhal Susp UD IH SCH (20:21)
[2017-03-09] MEDS: Albuterol-Ipratrop 3 mg / 0.5 (3 ml) UD IH SCH ×2 (20:21→23:50)
[2017-03-09] MEDS: Cefepime IV 2 gm in NS 2 GM/100 ML BAG IVPB SCH (22:22)
[2017-03-10] MEDS: Albuterol-Ipratrop 3 mg / 0.5 (3 ml) UD IH SCH ×6 (03:55→23:30)
[2017-03-10] MEDS: MethylPREDNISolone 40 mg Vial IVP SCH ×2 (05:11→17:38)
[2017-03-10] MEDS: Insulin Reg-MEDIUM-Coverage SC SCH ×4 (06:37→21:43)
[2017-03-10] MEDS: Insulin Lispro 1 UNITS/0.01 ML SC SCH ×3 (06:38→17:42)
[2017-03-10] MEDS: Budesonide 0.5 mg/2 ml Inhal Susp UD IH SCH ×2 (07:25→20:09)
[2017-03-10] MEDS: Pantoprazole 40 mg EC Tab PO SCH (07:54)
[2017-03-10] MEDS: Insulin Detemir 100 units/ml Vial (Levemir) SC SCH (08:21)
[2017-03-10 08:42] LABS: GRAN # 7.71 (1.4-6.5); GRAN % 93.9 % (50.0-68.0); HEMATOCRIT 32.5 % (42.0-52.0); LYMPH # 0.2 (1.2-3.4); LYMPH % 2.9 % (22.0-35.0); MEAN CORPUSCULAR HEMOGLOBIN 25.9 pg (25.0-35.0); MEAN PLATELET VOLUME 10.8 fl (7.0-11.0); MONO # 0.3 (0.1-0.6); MONO % 3.2 % (1.0-6.0); RED CELL DISTRIBUTION WIDTH 17.9 % (11.5-14.5); WHITE BLOOD COUNT 8.2 10^3/ul (4.5-11.0)
[2017-03-10 08:52] LABS: ALB/GLOB RATIO 1.1 (1.1-1.8); BILIRUBIN,TOTAL 0.4 mg/dL (0.2-1.3); CALCIUM 8.7 mg/dL (8.4-10.5); INR 2.31 (0.93-1.08); TOTAL PROTEIN 7.1 g/dL (5.8-8.3)
[2017-03-10] MEDS: guaiFENesin-DM 600-30 mg ER Tab PO SCH ×2 (10:14→17:43)
[2017-03-10] MEDS: DUTASTERIDE PO SCH (10:16)
--- NOTE | 2017-03-10 11:20 | CP.PCM.CON ---
History of Present Illness - History of Present Illness History of Present Illness: 71 year old male with PMH of healthcare-associated pneumonia, Severe cardiomyopathy with EF 10-15 %, paroxysmal atrial fibrillation, Coronary artery disease S/P stenting, history of aortic aneurysm, history of SVT, S/P AICD placement, S/P procedure on his prostate in 2012, S/P partial colectomy and colostomy was initially admitted in [facility] because of weakness and fever and the patient was found to have right-sided healthcare-associated pneumonia. He was started on antibiotics and has been clinically improving. He is now transferred to [facility] for continued medical therapy and physical rehab. Infectious Diseases consult is requested to continue his antibiotic therapy. Currently the patient does not have fever or chills, breathing better, improved cough, no abdominal pain, no diarrhea, no chest pain. Review of Systems - Review of Systems All systems: reviewed and no additional remarkable complaints except (as per HPI ) Past Patient History - Infectious Disease Hx of Infectious Diseases: None - Tetanus Immunizations Tetanus Immunization: Unknown - Past Medical History & Family History Past Medical History?: Yes - Past Social History Smoking Status: Former Smoker - CARDIAC Hx Cardiac Disorders: Yes Hx Congestive Heart Failure: Yes Hx Hypercholesterolemia: Yes Hx Hypertension: Yes - PULMONARY Hx Chronic Obstructive Pulmonary Disease (COPD): Yes - NEUROLOGICAL HX Cerebrovascular Accident: Yes - HEENT Hx HEENT Problems: Yes Hx Cataracts: Yes - RENAL Hx Renal Failure: Yes - ENDOCRINE/METABOLIC Hx Diabetes Mellitus Type 2: Yes - HEMATOLOGICAL/ONCOLOGICAL Hx Blood Disorders: Yes Hx Anemia: Yes - INTEGUMENTARY Hx Dermatological Problems: No - MUSCULOSKELETAL/RHEUMATOLOGICAL Hx Falls: Yes - GASTROINTESTINAL Hx Gastrointestinal Disorders: Yes (LEOSTOMY. PARTIAL COLECTOMY.GERD,COLITIS,H/ O C DIFF) - GENITOURINARY/GYNECOLOGICAL Hx Genitourinary Disorders: Yes Hx Reproductive Disorders: Yes (BPH) - PSYCHIATRIC Hx Substance Use: No - SURGICAL HISTORY Hx Cardiac Catheterization: Yes Hx Coronary Stent: Yes - ANESTHESIA Hx Anesthesia: Yes Hx Anesthesia Reactions: No Hx Malignant Hyperthermia: No Meds Allergies/Adverse Reactions: Allergies Allergy/AdvReac Type Severity Reaction Status Date / Time No Known Allergies Allergy Verified 03/09/17 19:01 - Medications Medications: Current Medications Albuterol/Ipratropium (Duoneb 3 Mg/0.5 Mg (3 Ml) Ud) 3 ml IH [id number] [facility] PRN Reason: Protocol Last Admin: 03/09/17 20:21 Dose: 3 ml Aspirin (Ecotrin) 81 mg PO 0800 [facility] PRN Reason: Protocol Atorvastatin Calcium (Lipitor) 10 mg PO DAILY [facility] PRN Reason: Protocol Budesonide (Pulmicort Respules) 0.5 mg IH [id number] [facility] PRN Reason: Protocol Last Admin: 03/09/17 20:21 Dose: 0.5 mg Carvedilol (Coreg) 12.5 mg PO 0800,1800 [facility] PRN Reason: Protocol Last Admin: 03/09/17 17:59 Dose: 12.5 mg Doxycycline Hyclate (Doryx) 100 mg PO Q12 [facility] PRN Reason: Protocol Last Admin: 03/09/17 22:22 Dose: 100 mg Ferrous Sulfate (Feosol) 324 mg PO 0800,1800 [facility] PRN Reason: Protocol Last Admin: 03/09/17 18:00 Dose: 324 mg Furosemide (Lasix) 40 mg IVP 0800 [facility] PRN Reason: Protocol Guaifenesin/Dextromethorphan (Mucinex-Dm 600-30 Mg) 1 tab PO BID [facility] PRN Reason: Protocol Last Admin: 03/09/17 18:02 Dose: 1 tab Cefepime HCl (Maxipime 2gm) 2 gm in 100 mls @ 100 mls/hr IVPB HS [facility] PRN Reason: Protocol Stop: 03/14/17 22:01 Last Admin: 03/09/17 22:22 Dose: 100 mls/hr Insulin Detemir (Levemir) 18 unit SC ACB [facility] PRN Reason: Protocol Insulin Human Lispro (Humalog) 4 units SC AC [facility] PRN Reason: Protocol Insulin Human Regular (Humulin R Med) 0 units SC ACHS [facility] PRN Reason: Protocol Last Admin: 03/09/17 22:21 Dose: 10 units Methylprednisolone (Solu-Medrol) 40 mg IVP 0600,1800 [facility] PRN Reason: Protocol Last Admin: 03/09/17 18:03 Dose: 40 mg Non-Formulary Medication (Dutasteride [Dutasteride]) 1 cap PO DAILY [facility] Pantoprazole Sodium (Protonix Ec Tab) 40 mg PO 0630 [facility] PRN Reason: Protocol Sodium Bicarbonate (Sodium Bicarbonate Tab) 650 mg PO TID [facility]Y PRN Reason: Protocol Last Admin: 03/09/17 18:03 Dose: 650 mg Tamsulosin HCl (Flomax) 0.4 mg PO 1800 [facility] PRN Reason: Protocol Last Admin: 03/09/17 18:01 Dose: 0.4 mg Warfarin Sodium (Coumadin) 1 mg PO 1800 [facility] PRN Reason: Protocol Last Admin: 03/09/17 17:58 Dose: 1 mg Physical Exam - Constitutional Appears: Non-toxic, No Acute Distress - Head Exam Head Exam: NORMAL INSPECTION - ENT Exam ENT Exam: Mucous Membranes Moist - Neck Exam Neck exam: Negative for: Lymphadenopathy, Meningismus - Respiratory Exam Respiratory Exam: Decreased Breath Sounds - Cardiovascular Exam Cardiovascular Exam: +S1, +S2 - GI/Abdominal Exam GI & Abdominal Exam: Soft. absent: Tenderness Results - Vital Signs Recent Vital Signs: Last Vital Signs Temp 97.7 F 03/09/17 19:04 Pulse 75 03/09/17 19:04 Resp 18 03/09/17 19:04 BP 122/87 03/09/17 19:04 Pulse Ox 99 03/09/17 16:23 - Labs Result Diagrams: 03/10/17 08:30 03/10/17 08:30 Assessment & Plan - Assessment and Plan (Free Text) Plan: Assessment Probable sepsis due to right sided healthcare-associated pneumonia, slowly improving clinically history of UTI with carbapenem-resistant Klebsiella history of ESBL-producing Klebsiella bacteremia, secondary to the port S/P removal S/P treatment for healthcare-associated pneumonia history of C diff associated diarrhea history of UTI with yeast history healthcare-associated pneumonia Severe cardiomyopathy with EF 10-15 % paroxysmal atrial fibrillation Coronary artery disease S/P stenting history of aortic aneurysm history of SVT S/P AICD placement S/P procedure on his prostate in 2012 S/P partial colectomy and colostomy Plan continue Doxycycline and Cefepime (day 5); cultures have been negative - target up to 7 days of therapy will continue to monitor clinically
--- NOTE | 2017-03-10 14:08 | PN ---
SUBJECTIVE: The patient was transferred to the TCU for rehabilitation and to complete his course of antibiotics for his pneumonia. His renal parameters remained mildly elevated, but stable. MEDICATIONS: Medication list reviewed. The patient is on Coreg, Coumadin, doxycycline, DuoNeb, dutasteride, Ecotrin, Feosol, Flomax, Humalog, Lasix is on hold, Levemir, Lipitor, cefepime, Mucinex, Protonix, Pulmicort, sodium bicarbonate orally, and Solu-Medrol. OBJECTIVE: VITAL SIGNS: Blood pressure 108/75, temperature 97.7, pulse 80, respiratory rate is 18. HEENT: Normocephalic, atraumatic, conjunctivae are pale. Sclerae nonicteric. NECK: Supple. No neck vein distention. CHEST: Clear to auscultation and percussion with scattered rhonchi. No rales or wheezing. CARDIOVASCULAR: Regular rate and rhythm without murmurs, rubs, or gallops noted. ABDOMEN: Soft. Bowel sounds normal. No rebound. No guarding. No masses. EXTREMITIES: No lower extremity edema. No cyanosis or clubbing. LABORATORY DATA AND IMAGING: No recent chest x-ray. Last chest x-ray showed left upper lobe and right lower lobe pneumonia. No CHF was seen. Labs today, CBC, white blood cell count 8.2, hemoglobin 10.4, platelet count of 182,000. Chemistries, sodium 140, potassium improved to 5, chloride 108, CO2 of 18, BUN 86 with a creatinine of 3.2 and s glucose of 233. Liver enzymes are normal. Albumin level is 3.7. ASSESSMENT: 1. Acute renal failure, superimposed on chronic kidney disease stage IV. His baseline creatinine is in the mid 2 range and is currently in the low 3 range. This is partly secondary to the fact that patient is receiving steroids and he had been receiving IV Lasix therapy. Presently, Lasix is on hold. 2. Multilobed pneumonia. The patient is completing a course of antibiotics. He is currently receiving Maxipime at 2 g a day. Perhaps dose adjustment in this antibiotic should be made by infectious disease in light of his creatinine of 3.2. I will leave the final decision up to ID. 3. History of hypertension. Blood pressure is controlled on present medication. The patient is currently off angiotensin receptor yimi therapy, which he had used in the outpatient setting. 4. History of congestive heart failure, cardiomyopathy with ejection fraction of 20%, status post automatic implantable cardioverter-defibrillator. The patient appears to be well compensated, IV Lasix has been placed on hold in light of his rising creatinine. 5. History of hyperkalemia. Potassium level is acceptable at 5.0, family understands not to bring any potassium supplements or food containing high potassium content. He remains on 2 g potassium diet in hospital/renal diet. 6. Metabolic acidosis secondary to chronic kidney disease. The patient will continue oral sodium bicarbonate therapy. 7. Past history of cerebrovascular accident currently stable. 8. History of benign prostate hyperplasia, currently stable on current medical therapy. PLAN: 1. Renal ultrasound done yesterday prior to transfer to the TCU showed medical renal disease in his kidneys, no hydronephrosis. Bilateral renal cysts. Kidney size; left kidney 10 cm, right kidney 9.1 cm. No change from 2014. 2. Agree with physician to hold IV Lasix, monitor patient's creatinine and exacerbation of CHF. 3. I would like to see steroid dose decrease. 4. Perhaps dose adjustment in antibiotic in light of his perhaps worsening renal parameters. 5. Continue all dietary restrictions. 6. Continue to monitor labs closely in TCU. Mio Stoddard MD
--- NOTE | 2017-03-10 18:51 | CP.PCM.HP ---
<BORDENFATOU - Last Filed: 03/10/17 18:38> History of Present Illness - History of Present Illness History of Present Illness: CC: SOB/Lethargy HPI: Mr. Weir is a 71 year old male with a past medical history significant for IDDM, CHF (EF 20%) with AICD placement, HTN, HLD, CVA, CKD stage IV, BPH, LLE DVT, atrial fibrillation, COPD and lung CA s/p radiation who presented complaining of increased lethargy and SOB over the course of a few days and is now being transferred to the TCU for completion of his treatment. Patient reports moderate improvement with his shortness of breath and dry cough but verbalizes understanding that he has not completed his course of treatment yet. He denies headache, fever, changes in his vision, dysphagia, pleurisy, chest pain, palpitations, abdominal pain, N/V, diarrhea, constipation or any urinary symptoms. Previous Hospital Course: Patient was admitted to the ED with a complaint of lethargy and increased SOB. A chest x-ray in ED showed right basilar and possible right upper lobe infiltrate with congestive changes. Patient was started on IV Cefepime, Vancomycin, PO prednisone, IV lasix and PRN duonebs after being given one dose of IV lasix and IV solu-medrol in the ED. ID and Cardiology were consulted. An EKG showed sinus tachycadia at 104 BPM with T- wave inversions in inferior leads, and no change from prior EKG's. A CMP revealed patients potassium was elevated at 5.9, which prompted kayexelate administration, and that his BUN/Creatinine was at patients baseline. Nephrology was consulted. Patients INR was found to be 2.78, so his usual home dose of 1.5mg coumadin was held for a smaller dose of 1.0mg. This dose was monitored and changed accordingly based on patients coagulation studies throughout his admission. ID then changed his antibiotics to merrem and doxicycline and added on mucinex to help with congestion. A repeat chest x-ray showed decrease in congestion but minimal change in RLL and CHRISSIE infiltrates. Patient was changed from duonebs to xopenex prn, placed on scheduled IV solu- medrol and his IV lasix and home BP med were stopped when patient was found to have an acute DAYTON in the setting of CKD as his creatinine was 3.0. Patient was also found to have continued hyperkalemia but kayexelate was held in setting of DAYTON so patient was placed on potassium restricted renal diet. Patient was also found to have a metabolic acidosis and was started on PO bicarb. Patient continued to complain of dyspnea after several days of continued treatment so pulmonology was consulted. They placed patient on scheduled duonebs as well as brovana and pulmicort. Patient was evaluated for placement in transitional care unit and accepted on 03/09. PMH: IDDM, CHF (EF 20%) with AICD placement and history of home milrinone use, HTN, HLD, CVA, CKD stage IV, BPH, LLE DVT, atrial fibrillation, COPD and prior history of multi-drug resistant klebsiella UTI, Lung CA s/p radiation (pt not aware of this condition, but is and she doesn't wish for him to know because of how he negatively he might respond to knowing his condition). PSH: pacemaker, hx of chest wall port; AAA s/p repair that was complicated by endoleak,; ischemic colitis with right-sided hemicolectomy and ileostomy with rectal stump Family Hx: Noncontributory Social Hx: Past smoker, Denies alcohol, and illicit drug use; lives with his ; Born in [place] Allergies: NKDA Home Medications: As per SEP PMD: Dr. Palacios Present on Admission - Present on Admission Any Indicators Present on Admission: No Review of Systems - Review of Systems Review of Systems: Please refer to HPI Past Patient History - Infectious Disease Hx of Infectious Diseases: None - Tetanus Immunizations Tetanus Immunization: Unknown - Past Medical History & Family History Past Medical History?: Yes - Past Social History Smoking Status: Former Smoker - CARDIAC Hx Cardiac Disorders: Yes Hx Congestive Heart Failure: Yes Hx Hypercholesterolemia: Yes Hx Hypertension: Yes - PULMONARY Hx Chronic Obstructive Pulmonary Disease (COPD): Yes - NEUROLOGICAL HX Cerebrovascular Accident: Yes - HEENT Hx HEENT Problems: Yes Hx Cataracts: Yes - RENAL Hx Renal Failure: Yes - ENDOCRINE/METABOLIC Hx Diabetes Mellitus Type 2: Yes - HEMATOLOGICAL/ONCOLOGICAL Hx Blood Disorders: Yes Hx Anemia: Yes - INTEGUMENTARY Hx Dermatological Problems: No - MUSCULOSKELETAL/RHEUMATOLOGICAL Hx Falls: Yes - GASTROINTESTINAL Hx Gastrointestinal Disorders: Yes (LEOSTOMY. PARTIAL COLECTOMY.GERD,COLITIS,H/ O C DIFF) - GENITOURINARY/GYNECOLOGICAL Hx Genitourinary Disorders: Yes Hx Reproductive Disorders: Yes (BPH) - PSYCHIATRIC Hx Substance Use: No - SURGICAL HISTORY Hx Cardiac Catheterization: Yes Hx Coronary Stent: Yes - ANESTHESIA Hx Anesthesia: Yes Hx Anesthesia Reactions: No Hx Malignant Hyperthermia: No Meds Allergies/Adverse Reactions: Allergies Allergy/AdvReac Type Severity Reaction Status Date / Time No Known Allergies Allergy Verified 03/09/17 19:01 Physical Exam - Constitutional Appears: Non-toxic, No Acute Distress - Head Exam Head Exam: ATRAUMATIC, NORMOCEPHALIC - Eye Exam Eye Exam: EOMI, Normal appearance, PERRL Pupil Exam: NORMAL ACCOMODATION - ENT Exam ENT Exam: Mucous Membranes Moist, Normal Exam - Neck Exam Neck exam: Negative for: Lymphadenopathy, Tenderness - Respiratory Exam Respiratory Exam: Rhonchi, Wheezes, Respiratory Distress, NORMAL BREATHING PATTERN. absent: Clear to Auscultation Bilateral, Rales Additional comments: scattered rhonci and oropharyngeal wheezing - Cardiovascular Exam Cardiovascular Exam: REGULAR RHYTHM, +S1, +S2 - GI/Abdominal Exam GI & Abdominal Exam: Normal Bowel Sounds, Soft. absent: Distended, Firm, Guarding, Tenderness - Exam Exam: absent: Bladder Distension - Extremities Exam Extremities exam: Positive for: normal capillary refill, pedal pulses present. Negative for: calf tenderness, pedal edema - Back Exam Back exam: absent: CVA tenderness (L), CVA tenderness (R), paraspinal tenderness , vertebral tenderness - Neurological Exam Neurological exam: Alert, Oriented x3 - Psychiatric Exam Psychiatric exam: Normal Affect, Normal Mood - Skin Skin Exam: Dry, Intact, Normal Color, Warm Results - Vital Signs Recent Vital Signs: Last Vital Signs Temp 98.1 F 03/10/17 17:20 Pulse 109 H 03/10/17 17:40 Resp 15 03/10/17 17:20 BP 132/85 03/10/17 17:40 Pulse Ox 99 03/10/17 11:00 - Labs Result Diagrams: 03/10/17 08:30 03/10/17 08:30 Labs: Laboratory Results - last 24 hr 03/09/17 03/10/17 03/10/17 21:03 04:25 08:30 WBC RBC Hgb Hct MCV MCH MCHC RDW Plt Count MPV Gran % Lymph % (Auto) [place] % (Auto) Eos % (Auto) Baso % (Auto) Gran # Lymph # [place] # Eos # Baso # PT INR Sodium 140 Potassium 5.0 Chloride 108 H Carbon Dioxide 18 L Anion Gap 19 BUN 86 H Creatinine 3.2 H Est GFR ( Amer) 23 Est GFR (Non-Af Amer) 19 POC Glucose (mg/dL) 425 H* 264 H Random Glucose 233 H Calcium 8.7 Total Bilirubin 0.4 AST 20 ALT 34 Alkaline Phosphatase 87 Total Protein 7.1 Albumin 3.7 Globulin 3.4 Albumin/Globulin Ratio 1.1 03/10/17 03/10/17 08:30 08:30 WBC 8.2 RBC 4.01 Hgb 10.4 L Hct 32.5 L MCV 81.0 MCH 25.9 MCHC 32.0 RDW 17.9 H Plt Count 182 MPV 10.8 Gran % 93.9 H Lymph % (Auto) 2.[address] [place] % (Auto) 3.2 Eos % (Auto) 0.0 L Baso % (Auto) 0.0 Gran # 7.71 H Lymph # 0.[address] [place] # 0.3 Eos # 0.0 Baso # 0.00 PT 25.0 H INR 2.31 H Sodium Potassium Chloride Carbon Dioxide Anion Gap BUN Creatinine Est GFR ( Amer) Est GFR (Non-Af Amer) POC Glucose (mg/dL) Random Glucose Calcium Total Bilirubin AST ALT Alkaline Phosphatase Total Protein Albumin Globulin Albumin/Globulin Ratio Assessment & Plan - Assessment and Plan (Free Text) Assessment: 71 year old male with a past medical history significant for IDDM, CHF (EF 20%) with AICD placement, HTN, HLD, CVA, CKD stage IV, BPH, LLE DVT, atrial fibrillation, COPD and lung CA s/p radiation who presented to the ED complaining of increased lethargy and SOB and is now being transferred to TCU for completion of his treatment course. Plan: 1. Dyspnea -etiologies considered: CHF exacerbation vs. HCAP -CXR in ED showed right basilar and possible right upper lobe infiltrate with congestive changes -most recent ECHO in 08/2016 showed an EF of 15% -s/p radiation treatment for lung CA in 01/01 -repeat chest x-ray shows decrease in congestion but minimal change in RLL and CHRISSIE infiltrates -Procal at 0.11-continue merrem and doxycycline (day 4) with goal being 4-7 days of total antibiotic therapy, per ID -holding lasix 40mg IVP in setting of DAYTON -decrease IV solu-medrol 40mg to once daily from BID -continue Atrovent Q4H PRN -xopenex prn q6h for shortness of breath -mucinex DM PRN for cough/congestion -blood cultures are negative for 96 hours -urine and sputum cultures pending -no leukocytosis and afebrile since admission -Pulmonology, ID and Cardiology consulted, all recommendations appreciated 2. Chest Tightness -EKG showed sinus tachycadia at 104 BPM with T-wave inversions in inferior leads , no change from prior on 01/14/17 -three serial troponins all negative -continue lipitor and ASA -cardiology following, will follow recommendations 3. Acute Renal Failure in setting of CKD Stage IV -renal ultrasound obtained and showed medical renal disease, no hydronephrosis and multiple chronic renal cysts which are stable in growth since 2015 -Patients creatinine at 3.2, which is above patients baseline of mid to low 2 range -likely etiology is multilobular pneumonia -holding ARB's and lasix in setting of DAYTON -metabolic acidosis with bicarbonate of 18 -increase PO bicarb to TID -strict intake and output monitoring -nephrology consulted, all recommendations appreciated 4. CHF -continue coreg -holding Entresto in setting of DAYTON, as stated above -cardiology following, will follow recommendations 5. History of IDDM -A1C found to be 7.4 -continue SSI-Medium -continue levemir 18u daily ACB -continue lispro 6u SC AC -fingerstick BS measures ACHS 6. History of Atrial Fibrillation -currently sinus rhythm on EKG -INR of 2.31 -continue 1mg coumadin -will adjust based on daily INR's 7. Hyperkalemia-Resolved -currently 5.0 -2g K+ renal diet and holding glucernas -will continue to monitor with daily CMP's 8. BPH -continue flomax and dutasteride 9. Iron Deficiency Anemia -H/H: 10.4/32.5, which is near patients baseline -continue feosol -continue to monitor with daily CBC's 10. Intermittent AMS/Agitation -patient remained oriented to person place time and event -CT head negative for any acute processes -will continue to monitor 11. GI Prophylaxis -Protonix EC tab Patient seen and case discussed with attending, Dr. Jaden Salas. - Date & Time Date: 03/10/17 Time: 11:00 Decision To Admit - Pt Status Changed To: Hospital Disposition Of: Inpatient Admission - Admit Certification Admit to Inpatient:: After my assessment, the patient will require hospitalization for at least two midnights. This is because of the severity of symptoms shown, intensity of services needed, and/or the medical risk in this patient being treated as an outpatient. - . Bed Request Type: TRCU <Jaden Salas - Last Filed: 03/12/17 15:46> Results - Vital Signs Recent Vital Signs: Last Vital Signs Temp 98.4 F 03/12/17 06:00 Pulse 112 H 03/12/17 08:32 Resp 20 03/12/17 06:00 BP 130/85 03/12/17 08:32 Pulse Ox 97 03/12/17 06:00 - Labs Result Diagrams: 03/12/17 07:30 03/12/17 07:30 Labs: Laboratory Results - last 24 hr 03/11/17 03/11/17 03/11/17 11:36 16:05 21:18 WBC RBC Hgb Hct MCV MCH MCHC RDW Plt Count MPV Gran % Lymph % (Auto) [place] % (Auto) Eos % (Auto) Baso % (Auto) Gran # Lymph # [place] # Eos # Baso # Neutrophils % (Manual) Lymphocytes % (Manual) Monocytes % (Manual) Platelet Evaluation Hypochromasia Anisocytosis (manual) PT INR Sodium Potassium Chloride Carbon Dioxide Anion Gap BUN Creatinine Est GFR ( Amer) Est GFR (Non-Af Amer) POC Glucose (mg/dL) 328 H 322 H 297 H Random Glucose Calcium Phosphorus Magnesium Total Bilirubin AST ALT Alkaline Phosphatase Total Protein Albumin Globulin Albumin/Globulin Ratio 03/12/17 03/12/17 03/12/17 05:13 07:30 07:30 WBC 9.5 RBC 3.89 Hgb 10.1 L Hct 31.3 L MCV 80.5 MCH 26.0 MCHC 32.3 RDW 18.0 H Plt Count 166 MPV 10.8 Gran % 88.4 H Lymph % (Auto) 4.[address] % (Auto) 7.4 H Eos % (Auto) 0.0 L Baso % (Auto) 0.0 Gran # 8.37 H Lymph # 0.[address] [place] # 0.7 H Eos # 0.0 Baso # 0.00 Neutrophils % (Manual) 85 H Lymphocytes % (Manual) 10 L Monocytes % (Manual) 5 Platelet Evaluation Normal Hypochromasia 1+ Anisocytosis (manual) Slight PT INR Sodium 137 Potassium 5.0 Chloride 108 H Carbon Dioxide 17 L Anion Gap 17 BUN 99 H Creatinine 3.1 H Est GFR ( Amer) 24 Est GFR (Non-Af Amer) 20 POC Glucose (mg/dL) 260 H Random Glucose 216 H Calcium 8.7 Phosphorus 4.5 Magnesium 1.9 Total Bilirubin 0.4 AST 23 ALT 39 Alkaline Phosphatase 89 Total Protein 6.6 Albumin 3.4 Globulin 3.3 Albumin/Globulin Ratio 1.0 L 03/12/17 07:30 WBC RBC Hgb Hct MCV MCH MCHC RDW Plt Count MPV Gran % Lymph % (Auto) [place] % (Auto) Eos % (Auto) Baso % (Auto) Gran # Lymph # [place] # Eos # Baso # Neutrophils % (Manual) Lymphocytes % (Manual) Monocytes % (Manual) Platelet Evaluation Hypochromasia Anisocytosis (manual) PT 30.1 H* INR 2.79 H Sodium Potassium Chloride Carbon Dioxide Anion Gap BUN Creatinine Est GFR ( Amer) Est GFR (Non-Af Amer) POC Glucose (mg/dL) Random Glucose Calcium Phosphorus Magnesium Total Bilirubin AST ALT Alkaline Phosphatase Total Protein Albumin Globulin Albumin/Globulin Ratio Attending/Attestation - Attestation I have personally seen and examined this patient.: Yes I have fully participated in the care of the patient.: Yes I have reviewed all pertinent clinical information: Yes Notes (Text): I have seen and examined the patient at bedside. Agree with the note dictated above with the following additions/ exceptions: Briefly this is 71 year old male with history of IDDM, HTN, dyslipidemia, CVA, CHF (LVEF ~15%) with AICD placement, AAA s/p repair that was complicated by endoleak, ischemic colitis with right-sided hemicolectomy and ileostomy with rectal stump, stage IV CKD, BPH, LLE DVT, atrial fibrillation, COPD and prior history of multi-drug resistant klebsiella UTI who was admitted for SOB secondary to HCAP. Continue meropenem and doxy. Continue to hold lasix. Patient has acute on CKD. Taper solumedrol. INR therapeutic. CT head negative for acute process. He has NAGMA on po bicarb. Discussed in detail with patients . Upon discharge patient will follow up with Dr Palacios. Dr Jaden Salas
[2017-03-10] MEDS: Cefepime IV 2 gm in NS 2 GM/100 ML BAG IVPB SCH (21:46)
[2017-03-11] MEDS: Albuterol-Ipratrop 3 mg / 0.5 (3 ml) UD IH SCH ×7 (00:15→23:41)
--- NOTE | 2017-03-11 05:37 | CON ---
DATE OF CONSULT: 03/10/2017 LOCATION: The patient is in room #322, bed #1. REASON FOR CONSULTATION: Followup his coronary artery disease, history of PTCA, cardiomyopathy, ejection fraction 20%, status post AICD insertion, renal dysfunction. HISTORY OF PRESENT ILLNESS: The patient is 71-year-old male, who is known to have CVA, chronic kidney disease, hypertension, hyperlipidemia, type 2 diabetes, BPH, history of paroxysmal atrial fibrillation, COPD, questionable history of lung CA, history of status post AICD insertion by Dr. Fransico Cabral, was admitted to medical floor with cough and shortness of breath and found to have acute on chronic renal injury with high BUN and creatinine. The patient was stabilized on the medical floor, now he is admitted to transitional care unit for deconditioning and physical therapy. PAST MEDICAL HISTORY: Significant for ischemic cardiomyopathy; CHF; CAD, stent insertion; hypertension; diabetes; hyperlipidemia; congestive heart failure; ejection fraction 20%. The patient was at home on milrinone drip, but insurance did not approve it, so it has been stopped. The patient has still CVA, history of recurrent UTI, history of AAA with history of endovascular leak, ischemic colitis, history of right-sided hemicolectomy, ileostomy, and colostomy. PAST SURGICAL HISTORY: Significant for multiple PTCA, AICD insertion, hemicolectomy, bowel resection, history of endovascular stent for abdominal aortic aneurysm, history of SERGO most recent on cardiac workup that showed dilated left atrium, dilated LV, ejection fraction of 15%, severe mitral regurg, mild aortic regurg, mild tricuspid regurg, complex plaque in descending aorta, AICD lead in RA and RV, no vegetation seen. MEDICATIONS: The patient's home medications included prednisone, Coumadin, Flomax, Entresto, Protonix, insulin, Lasix, ferrous sulfate, and carvedilol. ALLERGIES: THE PATIENT DENIES ANY ALLERGIES. PERSONAL HISTORY: Ex-smoker. Denies any alcohol use or substance abuse. PHYSICAL EXAMINATION: VITAL SIGNS: Blood pressure is 132/85, respirations 15, pulse is 109, temperature 98.1. HEENT: Head is normocephalic. Eyes: Pupils normal. Conjunctivae slightly pale. NECK: JVP low. Carotids are equal. Thorax, AP diameter normal. LUNGS: Clear. CARDIOVASCULAR: S1 and S2, systolic murmur, no rub. ABDOMEN: Has a colostomy bag. EXTREMITIES: No clubbing. No cyanosis. LABORATORY DATA: WBC 8.2, hemoglobin 10.4, hematocrit 32.5, and platelets 182. Sodium 140, potassium 5.0, BUN 86, creatinine 3.2, random glucose 233. Total protein and albumin normal. AST, ALT, and alkaline phosphatase normal. DIAGNOSES: Acute on chronic renal insufficiency, ischemic cardiomyopathy, ejection fraction 15% to 20%, coronary artery disease, history of stent insertion, status post automatic implantable cardioverter-defibrillator insertion, status post colostomy, history of endovascular stent for abdominal aortic aneurysm, paroxysmal atrial fibrillation, and history of chronic obstructive pulmonary disease. PLAN: The patient is on carvedilol 12.5 b.i.d.; warfarin 1 mg p.o. daily; Doryx 100 mg p.o. q. 12 hours; aspirin 81 mg daily; ferrous sulfate 324 p.o. b.i.d.; Flomax 0.4 daily; insulin as ordered; furosemide 40 mg IV daily, but is on hold due to rising BUN and creatinine; Lipitor 10 mg daily; Maxipime 2 g IV daily; Protonix 40 daily; sodium bicarbonate 650 mg p.o. t.i.d.; and Solu-Medrol 40 mg IV daily. We will continue present therapy, continue physical therapy. We will follow. Arabella Lopez MD
[2017-03-11] MEDS: Pantoprazole 40 mg EC Tab PO SCH (05:57)
[2017-03-11 07:14] LABS: GRAN # 7.42 (1.4-6.5); HEMATOCRIT 30.8 % (42.0-52.0); LYMPH # 0.3 (1.2-3.4); LYMPH % 3.8 % (22.0-35.0); MEAN CELL VOLUME 81.1 fl (80.0-105.0); MEAN CORPUSCULAR HEMOGLOBIN 25.5 pg (25.0-35.0); MEAN CORPUSCULAR HGB CONC 31.5 g/dl (31.0-37.0); MEAN PLATELET VOLUME 10.6 fl (7.0-11.0); MONO # 0.3 (0.1-0.6); MONO % 4.2 % (1.0-6.0); WHITE BLOOD COUNT 8.1 10^3/ul (4.5-11.0)
[2017-03-11] MEDS: Insulin Reg-MEDIUM-Coverage SC SCH ×4 (07:16→22:30)
[2017-03-11 07:18] LABS: INR 2.54 (0.93-1.08)
[2017-03-11 07:19] LABS: BILIRUBIN,TOTAL 0.6 mg/dL (0.2-1.3); CALCIUM 8.5 mg/dL (8.4-10.5); POTASSIUM 5.1 mmol/L (3.6-5.0); TOTAL PROTEIN 6.5 g/dL (5.8-8.3)
[2017-03-11] MEDS: Budesonide 0.5 mg/2 ml Inhal Susp UD IH SCH ×2 (07:29→20:12)
[2017-03-11] MEDS: Insulin Lispro 1 UNITS/0.01 ML SC SCH ×3 (08:48→18:13)
[2017-03-11] MEDS: Insulin Detemir 100 units/ml Vial (Levemir) SC SCH (08:53)
[2017-03-11] MEDS ORDERED: MethylPREDNISolone 40 mg Vial IVP SCH (10:00)
[2017-03-11] MEDS: DUTASTERIDE PO SCH (10:47)
[2017-03-11] MEDS: guaiFENesin-DM 600-30 mg ER Tab PO SCH ×2 (10:48→18:17)
--- NOTE | 2017-03-11 14:04 | PN ---
DATE: 03/11/2017 LOCATION: The patient in room 322, bed 1. REASON FOR CONSULTATION AND FOLLOWUP: Coronary artery disease, history of PTCA, cardiomyopathy, ejection fraction 20%, status post AICD insertion, renal dysfunction. SUBJECTIVE: The patient is lying flat in bed without any chest pain, shortness of breath, or palpitation. PHYSICAL EXAMINATION: VITAL SIGNS: Blood pressure is 121/76, respirations 19. HEENT: Head is normocephalic. Eyes, Pupils normal. Conjunctiva slightly pale. NECK: JVP low. Carotids equal. Thorax AP diameter normal. LUNGS: Clear. CARDIOVASCULAR: S1 and S2, systolic murmur. ABDOMEN: Has colostomy. Bowel sounds normal. EXTREMITIES: No clubbing. No cyanosis. LABORATORY DATA: WBC 8.1, hemoglobin 9.7, hematocrit 30.8, platelet 155. Sodium 136, potassium 5.1, BUN 96, creatinine 3.2, random glucose 248. AST and ALT normal. Total protein and albumin normal. DIAGNOSES: [id number] renal insufficiency, ischemic cardiomyopathy, ejection fraction 15% to 20%, coronary artery disease, history of stent insertion, status post automatic implantable cardioverter-defibrillator insertion, status post colostomy, history of endovascular stent for abdominal aortic aneurysm, paroxysmal atrial fibrillation. The patient also had deconditioning and now in transitional care unit for physical therapy. The patient's prothrombin time is 27.4, INR 2.44, which is therapeutic. MEDICATIONS: Doryx 100 mg p.o. q.12 hours, aspirin 81 daily, ferrous sulfate 324 mg b.i.d., Flomax 0.4 daily, insulin as ordered, furosemide 40 IV daily, atorvastatin 10 mg daily. The patient is getting Maxipime 2 g IV daily. The patient is getting Protonix 40 daily, Solu-Medrol 40 mg IV daily. We will continue present therapy, continue physical therapy. We will follow. Arabella Lopez MD
--- NOTE | 2017-03-11 16:15 | PN ---
SUBJECTIVE: The patient is currently seen lying supine in the TCU in bed. He appears to be entirely comfortable. He is completing his course of IV antibiotics for his multi-lobe pneumonia. The patient's creatinine today was 3.2, which is stable during the hospitalization and above his baseline levels in the mid 2 range. His K is 5.1 today. He is receiving no food from home. MEDICATIONS: Medication list reviewed. The patient is on Coreg, Coumadin, Doryx, DuoNeb, dutasteride, Ecotrin, Feosol, Flomax, insulin, IV Lasix is on hold, Levemir, Lipitor, Maxipime, Mucinex, Protonix, Pulmicort, sodium bicarbonate p.o., and Solu-Medrol. OBJECTIVE: VITAL SIGNS: Blood pressure 121/76, respiratory rate 19, heart rate of 102 with temperature of 97.9. HEENT: Normocephalic, atraumatic. Conjunctiva are pale. Sclerae nonicteric. NECK: Supple. No neck vein distention. CHEST: Clear to auscultation and percussion with scattered rhonchi. No rales or wheezing. CARDIOVASCULAR: Regular rate and rhythm without murmurs, rubs, or gallops noted. ABDOMEN: Soft. Bowel sounds normal. Positive colostomy. No rebound. No guarding. No masses. EXTREMITIES: Show no lower extremity edema. No cyanosis or clubbing. LABORATORY DATA AND IMAGING: CBC today white blood cell count is 8.1 with hemoglobin of 9.7, platelet count of 155,000. Chemistries today show sodium of 136, potassium 5.1, chloride 108 with CO2 of 18, stable. BUN 96, higher. Creatinine 3.2, stable. Glucose 248. Calcium 8.5. ASSESSMENT: 1. Acute renal failure superimposed on chronic kidney disease stage IV. His baseline creatinine is in the mid 2 range in the hospital with steroids and with diuretics. His creatinine has risen to the low 3 range. His BUN is in the 90s, consistent with prerenal azotemia seen from the steroid and diuretic combination. Presently, Lasix is on hold. 2. Multi-lobe pneumonia. The patient is completing a course of antibiotic therapy. He is currently receiving a rather large dose of Maxipime. I did discuss with the house staff about the possibility of decreasing the dose given his creatinine of 3.2. I will discuss this with infectious disease. 3. History of hypertension. Blood pressure is controlled on present medication. The patient is off angiotensin receptor yimi therapy at this time. 4. History of congestive heart failure, cardiomyopathy with ejection fraction of 15% to 20%. History of automatic implantable cardioverter-defibrillator. The patient appears to be well compensated. Lasix is on hold because of his rising BUN and creatinine. 5. History of [id number] hyperkalemia. Potassium is 5.1. The patient's family cautioned not to bring any food from outside. The patient will continue renal, 2 g potassium diet. 6. Metabolic acidosis secondary to chronic kidney disease. The patient will continue oral sodium bicarbonate therapy. 7. History of anemia secondary to chronic kidney disease. The patient continues on oral iron. The patient may receive a dose of Aranesp during his stay in the transitional care unit if his hemoglobin drops any lower than the 9.7 to 10.4 range. 8. History of cerebrovascular accident, currently stable. 9. History of benign prostate hyperplasia, currently stable on current medical therapy. PLAN: 1. Continue to hold IV Lasix and monitor the patient for any exacerbation of CHF given his known cardiomyopathy. 2. I would like to see a decrease in his steroid dose. This has been discussed with the house staff. 3. Continue to hold angiotensin receptor yimi therapy. 4. Continue all dietary restrictions. 5. We will continue to monitor labs daily with you in the TCU. Mio Stoddard MD
[2017-03-11] MEDS: Cefepime IV 2 gm in NS 2 GM/100 ML BAG IVPB SCH (22:27)
[2017-03-12] MEDS: Albuterol-Ipratrop 3 mg / 0.5 (3 ml) UD IH SCH ×7 (00:31→20:27)
--- NOTE | 2017-03-12 04:17 | PN ---
DATE: 03/11/2017 SUBJECTIVE: The patient is in bed. No acute distress. PHYSICAL EXAMINATION VITAL SIGNS: Temperature is 98, blood pressure is 120/70, and respiratory rate 16. HEENT: Unremarkable. NECK: Supple. LUNGS: Decreased breath sounds. HEART: Normal S1 and S2. ABDOMEN: Soft. LABORATORY DATA: Reveals a white count of 8.1, hemoglobin 9, and platelet count of 155,000. Chemistry reveals a BUN 96 and creatinine 3.2. ASSESSMENT AND PLAN: A 70-year-old male who was seen early this morning in transitional care at 3:22 admitted with probably sepsis, right-sided healthcare associated pneumonia slowly improving with day number 6 of doxycycline and cefepime, each of these for seven days. Walt Conner MD
[2017-03-12] MEDS: Pantoprazole 40 mg EC Tab PO SCH (06:11)
[2017-03-12] MEDS: Insulin Detemir 100 units/ml Vial (Levemir) SC SCH (06:31)
[2017-03-12] MEDS: Insulin Lispro 1 UNITS/0.01 ML SC SCH ×3 (06:45→17:43)
[2017-03-12] MEDS: Budesonide 0.5 mg/2 ml Inhal Susp UD IH SCH ×2 (07:22→19:27)
[2017-03-12 07:34] LABS: GRAN # 8.37 (1.4-6.5); GRAN % 88.4 % (50.0-68.0); HEMATOCRIT 31.3 % (42.0-52.0); LYMPH # 0.4 (1.2-3.4); LYMPH % 4.2 % (22.0-35.0); MEAN CELL VOLUME 80.5 fl (80.0-105.0); MEAN CORPUSCULAR HGB CONC 32.3 g/dl (31.0-37.0); MEAN PLATELET VOLUME 10.8 fl (7.0-11.0); MONO # 0.7 (0.1-0.6); MONO % 7.4 % (1.0-6.0); PLATELET COUNT 166 10^3/uL (120.0-450.0); WHITE BLOOD COUNT 9.5 10^3/ul (4.5-11.0)
[2017-03-12 07:43] LABS: INR 2.79 (0.93-1.08)
[2017-03-12 07:51] LABS: BILIRUBIN,TOTAL 0.4 mg/dL (0.2-1.3); CALCIUM 8.7 mg/dL (8.4-10.5); MAGNESIUM 1.9 mg/dL (1.7-2.2); PHOSPHOROUS 4.5 mg/dL (2.5-4.5); TOTAL PROTEIN 6.6 g/dL (5.8-8.3)
[2017-03-12] MEDS ORDERED: MethylPREDNISolone 40 mg Vial IVP SCH (08:30)
[2017-03-12] MEDS: Insulin Reg-MEDIUM-Coverage SC SCH ×4 (08:33→21:35)
[2017-03-12] MEDS: guaiFENesin-DM 600-30 mg ER Tab PO SCH ×2 (09:01→17:50)
[2017-03-12] MEDS: DUTASTERIDE PO SCH (09:03)
[2017-03-12 09:33] LABS: ANISOCYTOSIS SLIGHT; HYPOCHROMIA 1+; NEUTROPHIL 85 % (50.0-70.0); PLATELET ESTIMATE NORMAL (NORMAL)
--- NOTE | 2017-03-12 10:33 | CP.PCM.PN ---
<Erik Petty - Last Filed: 03/12/17 10:30> Subjective - Date & Time of Evaluation Date of Evaluation: 03/12/17 Time of Evaluation: 08:00 - Subjective Subjective: IM Progress Note, Erik Petty PGY-2 Pt was seen and examined at bedside with family present. Pt has no acute complaints at this time. Pt states he is breathing much better today. He has some mild complaints of increased urinary frequency. Pt denied fever, chills, sob, chest pains, abdominal pains, n/v/d/c. Objective - Vital Signs/Intake and Output Vital Signs (last 24 hours): Temp Pulse Resp BP Pulse Ox 98.4 F 112 H 20 130/85 97 03/12/17 06:00 03/12/17 08:32 03/12/17 06:00 03/12/17 08:32 03/12/17 06:00 Intake and Output: 03/12/17 03/12/17 06:59 18:59 Intake Total 480 Balance 480 - Medications Medications: Current Medications Albuterol/Ipratropium (Duoneb 3 Mg/0.5 Mg (3 Ml) Ud) 3 ml IH [id number] ANTHONY PRN Reason: Protocol Last Admin: 03/12/17 07:22 Dose: 3 ml Aspirin (Ecotrin) 81 mg PO 0800 ANTHONY PRN Reason: Protocol Last Admin: 03/12/17 08:32 Dose: 81 mg Atorvastatin Calcium (Lipitor) 10 mg PO DAILY ANTHONY PRN Reason: Protocol Last Admin: 03/12/17 09:02 Dose: 10 mg Budesonide (Pulmicort Respules) 0.5 mg IH [id number] ANTHONY PRN Reason: Protocol Last Admin: 03/12/17 07:22 Dose: 0.5 mg Carvedilol (Coreg) 12.5 mg PO 0800,1800 ANTHONY PRN Reason: Protocol Last Admin: 03/12/17 08:32 Dose: 12.5 mg Doxycycline Hyclate (Doryx) 100 mg PO Q12 ANTHONY PRN Reason: Protocol Last Admin: 03/12/17 09:01 Dose: 100 mg Ferrous Sulfate (Feosol) 324 mg PO 0800,1800 ANTHONY PRN Reason: Protocol Last Admin: 03/12/17 08:32 Dose: 324 mg Furosemide (Lasix) 40 mg IVP 0800 ANTHONY PRN Reason: Protocol Guaifenesin/Dextromethorphan (Mucinex-Dm 600-30 Mg) 1 tab PO BID ANTHONY PRN Reason: Protocol Last Admin: 03/12/17 09:01 Dose: 1 tab Cefepime HCl (Maxipime 2gm) 2 gm in 100 mls @ 100 mls/hr IVPB HS ANTHONY PRN Reason: Protocol Stop: 03/14/17 22:01 Last Admin: 03/11/17 22:27 Dose: 100 mls/hr Insulin Detemir (Levemir) 18 unit SC ACB ANTHONY PRN Reason: Protocol Last Admin: 03/12/17 06:31 Dose: 18 unit Insulin Human Lispro (Humalog) 6 units SC AC ANTHONY PRN Reason: Protocol Last Admin: 03/12/17 06:45 Dose: 6 units Insulin Human Regular (Humulin R Med) 0 units SC ACHS ANTHONY PRN Reason: Protocol Last Admin: 03/12/17 08:33 Dose: 3 units Methylprednisolone (Solu-Medrol) 20 mg IVP DAILY ANTHONY PRN Reason: Protocol Last Admin: 03/12/17 09:03 Dose: 20 mg Non-Formulary Medication (Dutasteride [Dutasteride]) 1 cap PO DAILY ANTHONY Last Admin: 03/12/17 09:03 Dose: 1 cap Pantoprazole Sodium (Protonix Ec Tab) 40 mg PO 0630 ANTHONY PRN Reason: Protocol Last Admin: 03/12/17 06:11 Dose: 40 mg Sodium Bicarbonate (Sodium Bicarbonate Tab) 650 mg PO TID ANTHONY PRN Reason: Protocol Last Admin: 03/12/17 09:02 Dose: 650 mg Tamsulosin HCl (Flomax) 0.4 mg PO 1800 ANTHONY PRN Reason: Protocol Last Admin: 03/11/17 18:17 Dose: 0.4 mg Warfarin Sodium (Coumadin) 1 mg PO 1800 ANTHONY PRN Reason: Protocol Last Admin: 03/11/17 18:16 Dose: 1 mg - Labs Labs: 03/12/17 07:30 03/12/17 07:30 PT 30.1 Seconds (9.9-11.8) H* 03/12/17 07:30 INR 2.79 (0.93-1.08) H 03/12/17 07:30 - Constitutional Appears: No Acute Distress - Head Exam Head Exam: ATRAUMATIC, NORMAL INSPECTION, NORMOCEPHALIC - Eye Exam Eye Exam: EOMI, Normal appearance, PERRL Pupil Exam: NORMAL ACCOMODATION, PERRL - ENT Exam ENT Exam: Mucous Membranes Moist, Normal Exam - Respiratory Exam Respiratory Exam: Decreased Breath Sounds, Clear to Ausculation Bilateral, NORMAL BREATHING PATTERN - Cardiovascular Exam Cardiovascular Exam: REGULAR RHYTHM, +S1, +S2. absent: Murmur - GI/Abdominal Exam GI & Abdominal Exam: Soft, Normal Bowel Sounds. absent: Tenderness - Extremities Exam Extremities Exam: Full ROM, Normal Capillary Refill, Normal Inspection. absent : Joint Swelling, Pedal Edema - Neurological Exam Neurological Exam: Alert, Awake, CN II-XII Intact, Normal Gait, Oriented x3 - Psychiatric Exam Psychiatric exam: Normal Affect, Normal Mood - Skin Skin Exam: Dry, Intact, Normal Color, Warm Assessment and Plan - Assessment and Plan (Free Text) Assessment: 71 M with PMHx of IDDM, CHF (EF 20%) with AICD placement, HTN, HLD, CVA, CKD stage IV, BPH, LLE DVT, atrial fibrillation, COPD and lung CA s/p radiation who presented to the ED complaining of increased lethargy and SOB and is now being transferred to TCU for completion of his treatment course. 1. Dyspnea -etiologies considered: CHF exacerbation vs. HCAP -CXR in ED showed right basilar and possible right upper lobe infiltrate with congestive changes -most recent ECHO in 08/2016 showed an EF of 15% -s/p radiation treatment for lung CA in 01/01 -repeat chest x-ray shows decrease in congestion but minimal change in RLL and CHRISSIE infiltrates -Procal at 0.11-continue merrem and doxycycline (day 5) with goal being 4-7 days of total antibiotic therapy, per ID -holding lasix 40mg IVP in setting of [place] -decrease IV solu-medrol 40mg to once daily from BID -continue Atrovent Q4H PRN -xopenex prn q6h for shortness of breath -mucinex DM PRN for cough/congestion -blood cultures are negative -urine and sputum cultures pending, repeat UA on account -no leukocytosis and afebrile since admission -Pulmonology, ID and Cardiology consulted, all recommendations appreciated 2. Chest Tightness -EKG showed sinus tachycadia at 104 BPM with T-wave inversions in inferior leads , no change from prior on 01/14/17 -three serial troponins all negative -continue lipitor and ASA -cardiology following, will follow recommendations 3. Acute Renal Failure in setting of CKD Stage IV -renal ultrasound obtained and showed medical renal disease, no hydronephrosis and multiple chronic renal cysts which are stable in growth since 2015 -Patients creatinine at 3.2, which is above patients baseline of mid to low 2 range -likely etiology is multilobular pneumonia -holding ARB's and lasix in setting of [place] -metabolic acidosis with bicarbonate of 18 -increase PO bicarb to TID -strict intake and output monitoring -nephrology consulted, all recommendations appreciated 4. CHF -continue coreg -holding Entresto in setting of [place], as stated above -cardiology following, will follow recommendations 5. History of IDDM -A1C found to be 7.4 -continue SSI-Medium -continue levemir 18u daily ACB -continue lispro 6u SC AC -fingerstick BS measures ACHS 6. History of Atrial Fibrillation -currently sinus rhythm on EKG -INR of 2.31 -continue 1mg coumadin -will adjust based on daily INR's 7. Hyperkalemia-Resolved -currently 5.0 -2g K+ renal diet and holding glucernas -will continue to monitor with daily CMP's 8. BPH -continue flomax and dutasteride 9. Iron Deficiency Anemia -H/H: 10.4/32.5, which is near patients baseline -continue feosol -continue to monitor with daily CBC's 10. Intermittent AMS/Agitation -patient remained oriented to person place time and event -CT head negative for any acute processes -will continue to monitor 11. GI Prophylaxis -Protonix EC tab Patient seen and case discussed with attending <Jaden Salas - Last Filed: 03/12/17 16:01> Objective - Vital Signs/Intake and Output Vital Signs (last 24 hours): Temp Pulse Resp BP Pulse Ox 98.4 F 112 H 20 130/85 97 03/12/17 06:00 03/12/17 08:32 03/12/17 06:00 03/12/17 08:32 03/12/17 06:00 Intake and Output: 03/12/17 03/12/17 06:59 18:59 Intake Total 480 Balance 480 - Medications Medications: Current Medications Albuterol/Ipratropium (Duoneb 3 Mg/0.5 Mg (3 Ml) Ud) 3 ml IH [id number] ANTHONY PRN Reason: Protocol Last Admin: 03/12/17 11:27 Dose: 3 ml Aspirin (Ecotrin) 81 mg PO 0800 ANTHONY PRN Reason: Protocol Last Admin: 03/12/17 08:32 Dose: 81 mg Atorvastatin Calcium (Lipitor) 10 mg PO DAILY ANTHONY PRN Reason: Protocol Last Admin: 03/12/17 09:02 Dose: 10 mg Budesonide (Pulmicort Respules) 0.5 mg IH [id number] ANTHONY PRN Reason: Protocol Last Admin: 03/12/17 07:22 Dose: 0.5 mg Carvedilol (Coreg) 12.5 mg PO 0800,1800 ANTHONY PRN Reason: Protocol Last Admin: 03/12/17 08:32 Dose: 12.5 mg Ferrous Sulfate (Feosol) 324 mg PO 0800,1800 ANTHONY PRN Reason: Protocol Last Admin: 03/12/17 08:32 Dose: 324 mg Furosemide (Lasix) 40 mg IVP 0800 ANTHONY PRN Reason: Protocol Guaifenesin/Dextromethorphan (Mucinex-Dm 600-30 Mg) 1 tab PO BID ANTHONY PRN Reason: Protocol Last Admin: 03/12/17 09:01 Dose: 1 tab Insulin Detemir (Levemir) 18 unit SC ACB ANTHONY PRN Reason: Protocol Last Admin: 03/12/17 06:31 Dose: 18 unit Insulin Human Lispro (Humalog) 6 units SC AC ANTHONY PRN Reason: Protocol Last Admin: 03/12/17 13:11 Dose: 6 units Insulin Human Regular (Humulin R Med) 0 units SC ACHS ANTHONY PRN Reason: Protocol Last Admin: 03/12/17 13:10 Dose: 3 units Methylprednisolone (Solu-Medrol) 20 mg IVP DAILY ANTHONY PRN Reason: Protocol Last Admin: 03/12/17 09:03 Dose: 20 mg Non-Formulary Medication (Dutasteride [Dutasteride]) 1 cap PO DAILY ANTHONY Last Admin: 03/12/17 09:03 Dose: 1 cap Pantoprazole Sodium (Protonix Ec Tab) 40 mg PO 0630 ANTHONY PRN Reason: Protocol Last Admin: 03/12/17 06:11 Dose: 40 mg Sodium Bicarbonate (Sodium Bicarbonate Tab) 650 mg PO TID ANTHONY PRN Reason: Protocol Last Admin: 03/12/17 15:03 Dose: 650 mg Tamsulosin HCl (Flomax) 0.4 mg PO 1800 ANTHONY PRN Reason: Protocol Last Admin: 03/11/17 18:17 Dose: 0.4 mg Warfarin Sodium (Coumadin) 1 mg PO 1800 ANTHONY PRN Reason: Protocol Last Admin: 03/11/17 18:16 Dose: 1 mg - Labs Labs: 03/12/17 07:30 03/12/17 07:30 PT 30.1 Seconds (9.9-11.8) H* 03/12/17 07:30 INR 2.79 (0.93-1.08) H 03/12/17 07:30 Attending/Attestation - Attestation I have personally seen and examined this patient.: Yes I have fully participated in the care of the patient.: Yes I have reviewed all pertinent clinical information, including history, physical exam and plan: Yes Notes (Text): I have seen and examined the patient at bedside. Agree with the note dictated above with the following additions/ exceptions: Briefly this is 71 year old male with history of IDDM, HTN, dyslipidemia, CVA, CHF (LVEF ~15%) with AICD placement, AAA s/p repair that was complicated by endoleak, ischemic colitis with right-sided hemicolectomy and ileostomy with rectal stump, stage IV CKD, BPH, LLE DVT, atrial fibrillation, COPD and prior history of multi-drug resistant klebsiella UTI who was admitted for SOB secondary to HCAP. Patient feels well and denies any complaints. Patients reports that he has difficulty passing urine. He does not have any suprapubic tenderness. Will check Urinalysis. He has completed antibiotics. Continue to hold lasix. Patient has acute on CKD. Will taper solumedrol. INR therapeutic. He has NAGMA on po bicarb. Discussed in detail with patients . Upon discharge patient will follow up with Dr Palacios. Dr Jaden Salas
--- NOTE | 2017-03-12 14:30 | PN ---
DATE: 03/12/2017 LOCATION: The patient is in room 322, bed 1. REASON FOR CONSULTATION AND FOLLOWUP: Coronary artery disease, history of PTCA, cardiomyopathy, ejection fraction of 20%, status post AICD insertion, and renal dysfunction. SUBJECTIVE: The patient is lying flat in bed without any chest pain, shortness of breath, or palpitations. The patient's family present at the bedside. PHYSICAL EXAMINATION: VITAL SIGNS: Blood pressure is 130/85, respirations 20, pulse 93, and temperature 98.4. HEENT: Head is normocephalic. Eyes, pupils are normal. Conjunctivae slightly pale. NECK: JVP low. Carotids are equal. Thorax AP diameter is normal. LUNGS: Clear. CARDIOVASCULAR: S1 and S2. ABDOMEN: Colostomy bag. EXTREMITIES: No clubbing. No cyanosis. LABORATORY DATA: WBC 9.5, hemoglobin 10.1, hematocrit 31.3, and platelet 186. Sodium 137, potassium 5.0, BUN 99, creatinine 3.1, and random glucose 216. AST, ALT, protein and albumin were normal. DIAGNOSES: Venft-yl-amuuiee renal insufficiency, ischemic cardiomyopathy, ejection fraction of 15% to 20%, coronary artery disease, history of stent insertion, status post automatic implantable cardioverter-defibrillator insertion, colostomy, history of endovascular stent insertion for the abdominal aortic aneurysm, paroxysmal atrial fibrillation, and deconditioning. PLAN: The patient's prothrombin time is 30.1 and his INR is 2.79. We will continue carvedilol, warfarin, doxycycline, DuoNeb nebulizer therapy, aspirin, ferrous sulfate, Flomax, insulin, furosemide, Lipitor 10 mg daily, cefepime 2 g IV daily, Protonix 40 daily, Solu-Medrol 20 mg IV daily. We will continue present therapy. Arabella Lopez MD
[2017-03-12 17:30] LABS: PH,URINE 5.5 (4.7-8.0); URINE APPEARANCE CLEAR (CLEAR); URINE BILIRUBIN NEGATIVE (NEGATIVE); URINE BLOOD LARGE (NEGATIVE); URINE COLOR YELLOW (YELLOW); URINE GLUCOSE (UA) NEGATIVE (NEGATIVE); URINE KETONE NEGATIVE (NEGATIVE); URINE LEUKOCYTE ESTERASE NEGATIVE Leu/uL (NEGATIVE); URINE PROTEIN 100 mg/dL (<30 mg/dL); URINE UROBILINOGEN 0.2 E.U./dL (<1 E.U./dL)
[2017-03-12 18:21] LABS: URINE AMORPHOUS SEDIMENT FEW; URINE BACTERIA FEW (NEG); URINE EPITHELIAL CELLS 0 - 2 /hpf (0-5); URINE RBC 15 - 20 /hpf (0-2); URINE WBC 0 - 2 /hpf (0-6)
--- NOTE | 2017-03-13 03:55 | PN ---
DATE: 03/12/2017 SUBJECTIVE: The patient is in bed, room 322. No fevers and no chills. The patient was seen earlier this morning. OBJECTIVE: VITALS: Temperature is 98, blood pressure is 120/70, and respiratory rate 16. HEENT: Unremarkable. NECK: Supple. LUNGS: Decreased breath sounds. HEART: Normal S1 and S2. ABDOMEN: Soft. LABORATORY DATA: Reveals a white count of 9.5 and hemoglobin of 10. BUN of 99, creatinine 3.1. Urinalysis is noted. Microbiology is noted. ASSESSMENT AND PLAN: This is a 71-year-old male who was seen earlier this morning in Transitional Care room 322, admitted with probable sepsis, right-sided healthcare associated pneumonia improving on day #7 of doxycycline and cefepime, has completed the antibiotics and currently now off of antibiotics and case discussed with Dr. Salas. The patient had risk for developing nosocomial infections. Walt Conner MD
[2017-03-13] MEDS: Albuterol-Ipratrop 3 mg / 0.5 (3 ml) UD IH SCH ×6 (04:15→23:50)
[2017-03-13] MEDS: MethylPREDNISolone 40 mg Vial IVP SCH (05:59)
[2017-03-13] MEDS: Pantoprazole 40 mg EC Tab PO SCH (05:59)
[2017-03-13] MEDS: Insulin Reg-MEDIUM-Coverage SC SCH ×4 (07:07→21:56)
[2017-03-13] MEDS: Insulin Lispro 1 UNITS/0.01 ML SC SCH ×3 (07:07→17:32)
[2017-03-13] MEDS: Insulin Detemir 100 units/ml Vial (Levemir) SC SCH (07:08)
[2017-03-13] MEDS: Budesonide 0.5 mg/2 ml Inhal Susp UD IH SCH ×2 (07:38→19:28)
[2017-03-13 08:17] LABS: EOS % 0.2 % (1.5-5.0); GRAN # 7.81 (1.4-6.5); GRAN % 86.7 % (50.0-68.0); LYMPH # 0.5 (1.2-3.4); LYMPH % 5.9 % (22.0-35.0); MEAN CELL VOLUME 81.6 fl (80.0-105.0); MEAN CORPUSCULAR HEMOGLOBIN 25.3 pg (25.0-35.0); MEAN CORPUSCULAR HGB CONC 30.9 g/dl (31.0-37.0); MEAN PLATELET VOLUME 11.1 fl (7.0-11.0); MONO # 0.7 (0.1-0.6); MONO % 7.2 % (1.0-6.0); RED CELL DISTRIBUTION WIDTH 18.2 % (11.5-14.5)
[2017-03-13 08:25] LABS: INR 2.56 (0.93-1.08)
[2017-03-13 08:37] LABS: BILIRUBIN,TOTAL 0.5 mg/dL (0.2-1.3); CALCIUM 8.7 mg/dL (8.4-10.5); POTASSIUM 5.1 mmol/L (3.6-5.0); TOTAL PROTEIN 6.4 g/dL (5.8-8.3)
[2017-03-13] MEDS: guaiFENesin-DM 600-30 mg ER Tab PO SCH ×2 (10:00→17:40)
[2017-03-13] MEDS: DUTASTERIDE PO SCH (10:00)
--- NOTE | 2017-03-13 15:05 | PN ---
DATE: 03/13/2017 SUBJECTIVE: The patient lying flat in bed without any cardiac symptoms like chest pain, shortness of breath, or palpitations. PHYSICAL EXAMINATION VITAL SIGNS: Blood pressure is 124/68, heart rate when I examined the patient was about 104 and later recorded 95, the patient is afebrile, respirations 20. HEENT: Head is normocephalic. Eyes, pupils are normal. Conjunctivae slightly pale. NECK: JVP low. Carotids are equal. Thorax AP diameter is normal. LUNGS: Clear. CARDIOVASCULAR: S1 and S2. Systolic murmur. ABDOMEN: Colostomy bag. EXTREMITIES: No clubbing. No cyanosis. LABORATORY DATA: WBC 9.0, hemoglobin 9.9, hematocrit 32.0, and platelet 177. Sodium 136, potassium 5.1, BUN 101, and creatinine 3.0. AST, ALT, protein, and albumin were normal. DIAGNOSES: Imfak-ed-ftwklsv renal insufficiency, ischemic cardiomyopathy, ejection fraction of 15% to 20%, coronary artery disease, history of stent insertion status post automatic implantable cardioverter-defibrillator insertion, colostomy, history of endovascular stent insertion, abdominal aortic aneurysm, paroxysmal atrial fibrillation, deconditioning, and sinus tachycardia. PLAN: The patient still has sinus tachycardia on physical examination 104 pulse rate per minute. We will increase Coreg to 25 mg b.i.d. The patient today's prothrombin time is 27.6 and INR is 2.56. Aspirin 81 mg daily. Warfarin is on hold at present. Ferrous sulfate 324 mg p.o. b.i.d. Flomax 0.4 mg daily. Furosemide 40 mg IV has been put on hold. Insulin as ordered. Atorvastatin 10 mg daily, Protonix 40 daily, Solu-Medrol 20 mg IV daily. We will continue present therapy. We will increase Coreg to 25 mg b.i.d. We will follow. Arabella Lopez MD
[2017-03-13] MEDS ORDERED: Pantoprazole 40 mg EC Tab PO ONE (17:04)
--- NOTE | 2017-03-13 20:39 | PN ---
DATE: 03/13/2017 SUBJECTIVE: The patient is in bed, in no acute distress, nontoxic. PHYSICAL EXAMINATION: VITAL SIGNS: Temperature is 97, blood pressure is 120/70, respiratory rate of 16. HEENT: Unremarkable. NECK: Supple. LUNGS: Decreased breath sounds. HEART: Normal S1 and S2. ABDOMEN: Soft, nontender. LABORATORY DATA: Reveals a white count of 9, hemoglobin of 9.9, platelets of 177. Coagulation is noted. Chemistries reveals a BUN of 101, creatinine of 3. Urinalysis is noted, microbiology is noted. ASSESSMENT AND PLAN: This is a 71-year-old [place] male who was seen earlier this morning in a transitional care at 3:22 with a probably sepsis with a right-sided healthcare associated pneumonia and completed doxycycline and cefepime. Currently, now off of antibiotics. Case was discussed with his at length. She is eager to take him home. The patient is on Solu-Medrol. Case also discussed with Dr. Salas. Walt Conner MD
[2017-03-14] MEDS: Albuterol-Ipratrop 3 mg / 0.5 (3 ml) UD IH SCH ×5 (03:41→20:03)
[2017-03-14] MEDS: Insulin Lispro 1 UNITS/0.01 ML SC SCH ×3 (06:48→17:35)
[2017-03-14] MEDS: Insulin Reg-MEDIUM-Coverage SC SCH ×4 (06:48→21:48)
[2017-03-14] MEDS: Pantoprazole 40 mg EC Tab PO SCH (06:50)
[2017-03-14] MEDS: MethylPREDNISolone 40 mg Vial IVP SCH (06:50)
[2017-03-14] MEDS: Insulin Detemir 100 units/ml Vial (Levemir) SC SCH (07:06)
[2017-03-14 07:12] LABS: EOS % 0.4 % (1.5-5.0); GRAN # 7.85 (1.4-6.5); GRAN % 79.5 % (50.0-68.0); HEMATOCRIT 31.2 % (42.0-52.0); LYMPH # 0.6 (1.2-3.4); LYMPH % 6.2 % (22.0-35.0); MEAN CELL VOLUME 81.3 fl (80.0-105.0); MEAN CORPUSCULAR HEMOGLOBIN 25.8 pg (25.0-35.0); MEAN CORPUSCULAR HGB CONC 31.7 g/dl (31.0-37.0); MEAN PLATELET VOLUME 11.1 fl (7.0-11.0); MONO # 1.4 (0.1-0.6); MONO % 13.9 % (1.0-6.0); RED CELL DISTRIBUTION WIDTH 18.2 % (11.5-14.5); WHITE BLOOD COUNT 9.9 10^3/ul (4.5-11.0)
[2017-03-14 07:32] LABS: INR 2.13 (0.93-1.08)
[2017-03-14 07:33] LABS: BILIRUBIN,TOTAL 0.4 mg/dL (0.2-1.3); CALCIUM 8.6 mg/dL (8.4-10.5); POTASSIUM 4.9 mmol/L (3.6-5.0); TOTAL PROTEIN 5.9 g/dL (5.8-8.3)
[2017-03-14] MEDS: Budesonide 0.5 mg/2 ml Inhal Susp UD IH SCH ×2 (07:34→20:03)
--- NOTE | 2017-03-14 07:47 | CP.PCM.PN ---
<Dayami Siegel - Last Filed: 03/14/17 19:20> Subjective - Date & Time of Evaluation Date of Evaluation: 03/14/17 Time of Evaluation: 07:00 - Subjective Subjective: Filippo Dudley DO PGY1 Medicine Progress Note Patient was seen and examined at bedside. No acute events overnight. Pt has no acute complaints at this time. Pt denied SOB, chest pain, dizziness, headache n/ v/d/c. Objective - Vital Signs/Intake and Output Vital Signs (last 24 hours): Temp Pulse Resp BP Pulse Ox 97.5 F L 72 20 134/68 98 03/13/17 10:00 03/13/17 17:36 03/13/17 10:00 03/13/17 17:36 03/13/17 10:00 - Medications Medications: Current Medications Albuterol/Ipratropium (Duoneb 3 Mg/0.5 Mg (3 Ml) Ud) 3 ml IH [id number] ANTHONY PRN Reason: Protocol Last Admin: 03/14/17 07:33 Dose: 3 ml Aspirin (Ecotrin) 81 mg PO 0800 ANTHONY PRN Reason: Protocol Last Admin: 03/13/17 08:43 Dose: 81 mg Atorvastatin Calcium (Lipitor) 10 mg PO DAILY ANTHONY PRN Reason: Protocol Last Admin: 03/13/17 10:01 Dose: 10 mg Budesonide (Pulmicort Respules) 0.5 mg IH [id number] ANTHONY PRN Reason: Protocol Last Admin: 03/14/17 07:34 Dose: 0.5 mg Carvedilol (Coreg) 25 mg PO 0800,1800 ANTHONY Last Admin: 03/13/17 17:36 Dose: 25 mg Ferrous Sulfate (Feosol) 324 mg PO 0800,1800 ANTHONY PRN Reason: Protocol Last Admin: 03/13/17 17:36 Dose: 324 mg Furosemide (Lasix) 40 mg IVP 0800 ANTHONY PRN Reason: Protocol Guaifenesin/Dextromethorphan (Mucinex-Dm 600-30 Mg) 1 tab PO BID ANTHONY PRN Reason: Protocol Last Admin: 03/13/17 17:40 Dose: 1 tab Insulin Detemir (Levemir) 18 unit SC ACB ANTHONY PRN Reason: Protocol Last Admin: 03/14/17 07:06 Dose: Not Given Insulin Human Lispro (Humalog) 6 units SC AC ANTHONY PRN Reason: Protocol Last Admin: 03/14/17 06:48 Dose: 6 units Insulin Human Regular (Humulin R Med) 0 units SC ACHS ANTHONY PRN Reason: Protocol Last Admin: 03/14/17 06:48 Dose: 3 units Methylprednisolone (Solu-Medrol) 20 mg IVP 0600 ANTHONY PRN Reason: Protocol Last Admin: 03/14/17 06:50 Dose: 20 mg Non-Formulary Medication (Dutasteride [Dutasteride]) 1 cap PO DAILY [facility] Last Admin: 03/13/17 10:00 Dose: 1 cap Pantoprazole Sodium (Protonix Ec Tab) 40 mg PO 0630 [facility] PRN Reason: Protocol Last Admin: 03/14/17 06:50 Dose: 40 mg Sodium Bicarbonate (Sodium Bicarbonate Tab) 650 mg PO TID ANTHONY PRN Reason: Protocol Last Admin: 03/13/17 17:37 Dose: 650 mg Tamsulosin HCl (Flomax) 0.4 mg PO 1800 ANTHONY PRN Reason: Protocol Last Admin: 03/13/17 17:36 Dose: 0.4 mg Warfarin Sodium (Coumadin) 1 mg PO 1800 ANTHONY PRN Reason: Protocol Last Admin: 03/11/17 18:16 Dose: 1 mg - Labs Labs: 03/14/17 06:30 03/14/17 06:30 PT 23.0 Seconds (9.9-11.8) H 03/14/17 06:30 INR 2.13 (0.93-1.08) H 03/14/17 06:30 - Constitutional Appears: Non-toxic, No Acute Distress - Head Exam Head Exam: ATRAUMATIC, NORMOCEPHALIC - Eye Exam Eye Exam: Normal appearance - ENT Exam ENT Exam: Mucous Membranes Moist, Normal Exam - Neck Exam Neck Exam: Full ROM, Normal Inspection - Respiratory Exam Respiratory Exam: Rhonchi (rll), NORMAL BREATHING PATTERN. absent: Rales, Wheezes, Respiratory Distress, Stridor - Cardiovascular Exam Cardiovascular Exam: REGULAR RHYTHM, +S1, +S2 - GI/Abdominal Exam GI & Abdominal Exam: Soft, Normal Bowel Sounds. absent: Distended, Firm, Guarding, Rigid, Tenderness Additional comments: ostomy bag in place, has stool - Extremities Exam Extremities Exam: Normal Inspection. absent: Pedal Edema - Back Exam Back Exam: NORMAL INSPECTION - Neurological Exam Neurological Exam: Alert, Awake Additional comments: Mild confusion. - Psychiatric Exam Psychiatric exam: Normal Affect, Normal Mood - Skin Skin Exam: Dry, Normal Color, Warm Assessment and Plan - Assessment and Plan (Free Text) Assessment: Patient is a 71 M with PMH of IDDM, CHF (EF 20%) with AICD placement, HTN, HLD, CVA, CKD stage IV, BPH, LLE DVT, atrial fibrillation, COPD and lung CA s/p radiation who presented to the ED complaining of increased lethargy and SOB, was found to have pneumonia with superimposed CHF. Patient is currently in TCU. Plan: 1. HAP ( right upper and basal) with superimposed CHF exacerbation with a COPD component. - Patient completed 7 days of antibiotics - Currently afebrile, no leukocytosis. - Will continue mucinex prn - Tapering dose solu medrol - Will continue with duoneb - Symptom improved. - Patient is being followed by multiple service. 3.[place] on CKD 4 - Creatiinine stable at 3 - U/S with no hydronephrosis and multiple chronic renal cysts - holding ARB's and lasix in setting of [place] - Nephro on consult. 4. CHF -Will continue coreg -Entresto on hold in setting of [place] - Cardiology following 5. IDDM2 - A1C of 7.4 - Will continue basal , and pre meal insulin. - Continue ISS, and carb controlled diet. 6. Chronic Atrial Fibrillation- rate controlled - INR of 2.13 -continue 1mg coumadin 7. Hyperkalemia-Resolved will continue to monitor 8. BPH -continue flomax and dutasteride 9. Iron Deficiency Anemia -stable, will continue iron po. 10. Intermittent AMS/Agitation - Negative CT head - AMS resolved. 11. GI/DVT Prophylaxis - Protonix po, and on Coumadin as well. Patient seen and case discussed with Dr Salas. <Jaden Salas - Last Filed: 03/15/17 15:04> Objective - Vital Signs/Intake and Output Vital Signs (last 24 hours): Temp Pulse Resp BP Pulse Ox 97.8 F 19 L 18 113/73 96 03/15/17 10:34 03/15/17 10:34 03/15/17 10:34 03/15/17 10:34 03/14/17 16:46 Intake and Output: 03/15/17 03/15/17 06:59 18:59 Intake Total 600 Balance 600 - Medications Medications: Current Medications Al Hydrox/Mg Hydrox/Simethicone (Maalox Plus 30 Ml) 30 ml PO Q6H PRN PRN Reason: Indigestion / Heartburn Last Admin: 03/14/17 20:14 Dose: 30 ml Albuterol/Ipratropium (Duoneb 3 Mg/0.5 Mg (3 Ml) Ud) 3 ml IH [id number] ANTHONY PRN Reason: Protocol Last Admin: 03/15/17 13:53 Dose: 3 ml Aspirin (Ecotrin) 81 mg PO 0800 ANTHONY PRN Reason: Protocol Last Admin: 03/15/17 08:26 Dose: 81 mg Atorvastatin Calcium (Lipitor) 10 mg PO DAILY ANTHONY PRN Reason: Protocol Last Admin: 03/15/17 10:10 Dose: 10 mg Budesonide (Pulmicort Respules) 0.5 mg IH [id number] ANTHONY PRN Reason: Protocol Last Admin: 03/15/17 07:15 Dose: 0.5 mg Carvedilol (Coreg) 25 mg PO 0800,1800 [facility] Last Admin: 03/15/17 08:25 Dose: 25 mg Ferrous Sulfate (Feosol) 324 mg PO 0800,1800 ANTHONY PRN Reason: Protocol Last Admin: 03/15/17 08:26 Dose: 324 mg Guaifenesin/Dextromethorphan (Mucinex-Dm 600-30 Mg) 1 tab PO BID ANTHONY PRN Reason: Protocol Last Admin: 03/15/17 10:10 Dose: 1 tab Hydromorphone HCl (Dilaudid) 1 mg IVP Q4H PRN PRN Reason: Pain, severe (8-10) Insulin Detemir (Levemir) 18 unit SC ACB ANTHONY PRN Reason: Protocol Last Admin: 03/15/17 07:58 Dose: 18 unit Insulin Human Lispro (Humalog) 6 units SC AC ANTHONY PRN Reason: Protocol Last Admin: 03/15/17 12:42 Dose: 6 units Insulin Human Regular (Humulin R Med) 0 units SC ACHS ANTHONY PRN Reason: Protocol Last Admin: 03/15/17 12:43 Dose: 5 units Non-Formulary Medication (Dutasteride [Dutasteride]) 1 cap PO DAILY [facility] Last Admin: 03/15/17 10:10 Dose: 1 cap Pantoprazole Sodium (Protonix Ec Tab) 40 mg PO 0630 ANTHONY PRN Reason: Protocol Last Admin: 03/14/17 06:50 Dose: 40 mg Prednisone (Prednisone Tab) 5 mg PO 0800 ANTHONY Sodium Bicarbonate (Sodium Bicarbonate Tab) 650 mg PO TID ANTHONY PRN Reason: Protocol Last Admin: 03/15/17 10:11 Dose: 650 mg Tamsulosin HCl (Flomax) 0.4 mg PO 1800 ANTHONY PRN Reason: Protocol Last Admin: 03/14/17 17:40 Dose: 0.4 mg Warfarin Sodium (Coumadin) 1 mg PO 1800 ANTHONY PRN Reason: Protocol Last Admin: 03/14/17 17:39 Dose: 1 mg - Labs Labs: 03/15/17 06:50 03/15/17 06:50 PT 19.7 Seconds (9.9-11.8) H 03/15/17 06:50 INR 1.82 (0.93-1.08) H 03/15/17 06:50 Attending/Attestation - Attestation I have personally seen and examined this patient.: Yes I have fully participated in the care of the patient.: Yes I have reviewed all pertinent clinical information, including history, physical exam and plan: Yes Notes (Text): I have seen and examined the patient at bedside. Agree with the note dictated above with the following additions/ exceptions: Briefly this is 71 year old male with history of IDDM, HTN, dyslipidemia, CVA, CHF (LVEF ~15%) with AICD placement, AAA s/p repair that was complicated by endoleak, ischemic colitis with right-sided hemicolectomy and ileostomy with rectal stump, stage IV CKD, BPH, LLE DVT, atrial fibrillation, COPD and prior history of multi-drug resistant klebsiella UTI who was admitted for SOB secondary to HCAP. Patient feels well and denies any complaints. He does not have any suprapubic tenderness. He has completed antibiotics. Continue to hold lasix. Patient has acute on CKD. Will taper solumedrol. INR therapeutic. He has NAGMA on po bicarb. Discussed in detail with patients . Upon discharge patient will follow up with Dr Palacios. Dr Jaden Salas
[2017-03-14] MEDS: DUTASTERIDE PO SCH (10:05)
[2017-03-14] MEDS: guaiFENesin-DM 600-30 mg ER Tab PO SCH ×2 (10:06→17:40)
--- NOTE | 2017-03-14 19:39 | PN ---
DATE: 03/14/2017 SUBJECTIVE: The patient is in bed, in no acute distress, nontoxic. PHYSICAL EXAMINATION: VITAL SIGNS: Temperature is 97.9, heart rate of 100. HEENT: Unremarkable. NECK: Supple. LUNGS: Decreased breath sounds. HEART: Normal S1 and S2. ABDOMEN: Soft, nontender. LABORATORY DATA: White count of 9.9, hemoglobin of 9, platelets of 167. Chemistries are noted; creatinine is 3. Microbiology is noted. Currently, review of orders reveals the patient to be off of antibiotics. The patient is on Solu-Medrol. ASSESSMENT AND PLAN: This is a 71-year-old [place] male, who was seen earlier this morning in a transitional care with a probable sepsis with a right-sided healthcare-associated pneumonia and completed with doxycycline and cefepime. Currently off of antibiotics. Afebrile. However, the patient is at risk for nosocomial infection. Walt Conner MD
--- NOTE | 2017-03-14 20:07 | PN ---
SUBJECTIVE: The patient is currently seen in the TCU. He has been doing relatively well. Diuretics have been restarted. His creatinine is stable at 3.0, but his BUN is 101. He has completed a course of IV antibiotic therapy for his multi-lobe pneumonia. MEDICATIONS: Medication list reviewed. The patient is currently on Coreg, Coumadin, DuoNeb, dutasteride, Ecotrin, Feosol, Flomax, insulin, IV Lasix has been restarted, Levemir, Lipitor, Mucinex, Protonix, Pulmicort Respules, sodium bicarbonate, and Solu-Medrol. OBJECTIVE: VITAL SIGNS: Blood pressure 120/80, respiratory rate 20, pulse is 100 with a temperature of 97.5. HEENT: Normocephalic, atraumatic. Conjunctiva are pale. Sclera nonicteric. NECK: Supple. No neck vein distention when the patient sitting up in a chair in the TCU. CHEST: Clear to auscultation and percussion with occasional rhonchi. No rales or wheezing. CARDIOVASCULAR: Regular rate and rhythm without murmurs, rubs, or gallops noted. ABDOMEN: Soft. Bowel sounds normal. Positive colostomy. No rebound. No guarding. No masses. EXTREMITIES: No lower extremity edema, cyanosis, or clubbing. LABORATORY DATA AND IMAGING: CBC: White blood cell count 9.9, hemoglobin 9.9, platelet count is 167,000. Chemistry: Sodium 137, potassium stable at 4.9, chloride 108 with CO2 of 21, glucose 209 with BUN of 101 and creatinine of 3.0. Calcium is 8.6. Last phosphorous level was 4.5. Magnesium level from 03/12 is 1.9. ASSESSMENT: 1. Acute renal failure, superimposed on chronic kidney disease stage IV. The patient*s BUN baseline is in the 40 to 50 range. It is currently 101. The patient*s baseline creatinine is in the low 2 range. It is currently stable at 3.0. Lasix had been on hold and apparently the patient received one dose of IV Lasix today. Lasix should be placed on hold because of his advanced prerenal azotemia and at present he appears to be well compensated in terms of his congestive heart failure and volume status. 2. History of multi-lobe pneumonia. The patient has completed a course of antibiotic therapy. 3. History of hypertension. Blood pressure is controlled on present medical therapy. No PIETRO inhibitors. No angiotensin receptor blockers because of his advanced chronic kidney disease. 4. History of congestive heart failure, cardiomyopathy, ejection fraction 15% to 20%. History of automatic implantable cardioverter-defibrillator. The patient is well compensated. I completely agree that in the outpatient setting the patient should be restarted back on oral Lasix; however, in the hospital, we are monitoring him every day, and given that his BUN is twice the upper limit of normal and his creatinine is 50% higher than its baseline, I would like to place diuretics on hold. 5. History of lgotqyvfad-ug-ryfe hyperkalemia. Potassium today is 4.9, stable. The patient will continue a renal diet/2 g potassium diet. 6. History of metabolic acidosis secondary to chronic kidney disease. The patient will continue oral sodium bicarbonate supplements. 7. History of anemia secondary to chronic kidney disease. The patient will continue oral iron. Any hemoglobin significantly less than 10, the patient may be restarted back on Aranesp. 8. Past history of cerebrovascular accident currently stable. 9. History of benign prostate hyperplasia currently stable on current medical therapy. PLAN: 1. I will discontinue Lasix at this point in time. In all likelihood, he will complete his TCU stay in the next 3 days. Upon discharge, the patient may be restarted back on oral Lasix therapy. 2. Continue to taper and decrease steroids as discussed in my previous notes. 3. No plans for angiotensin receptor yimi therapy or addition of an PIETRO inhibitor. 4. Continue all dietary restrictions. 5. We will continue to monitor labs in the TCU. 6. The patient*s situation discussed in broken [place] with his . Mio Stoddard MD
[2017-03-14] MEDS: Alum-Mag Hydrox-Simethicone Susp (30 mL) PO PRN (20:14)
--- NOTE | 2017-03-14 20:17 | PN ---
DATE: 03/14/2017 LOCATION: The patient is in room 322, bed 1. REASON FOR CONSULTATION: Followup coronary artery disease, history of PTCA, cardiomyopathy, ejection fraction 20%, status post AICD insertion, renal dysfunction. SUBJECTIVE: The patient is sitting in chair without chest pain, shortness of breath or palpitations. PHYSICAL EXAMINATION VITAL SIGNS: Pulse 100 per minute, temperature 97.9, blood pressure 113/78, respirations 20. HEENT: Head is normocephalic. Eyes, pupils are normal. Conjunctivae slightly pale. NECK: JVP low. Carotids are equal. Thorax; AP diameter is normal. LUNGS: No rales. CARDIOVASCULAR: S1 and S2. ABDOMEN: Soft. Nontender. No organomegaly. The patient has a colostomy. EXTREMITIES: No clubbing, no cyanosis. LABORATORY DATA: WBC 9.9, hemoglobin 9.9, hematocrit 31.2, and platelets 167. Sodium 137, potassium 4.9, BUN 101, and creatinine 3.0, random sugar 275. AST and ALT normal. DIAGNOSES: Pdkik-ui-rurpeqg renal insufficiency, ischemic cardiomyopathy, ejection fraction of 15% to 20%, coronary artery disease, history of stent insertion, status post automatic implantable cardioverter-defibrillator insertion, colostomy, history of endovascular stent insertion for an abdominal aortic aneurysm, paroxysmal atrial fibrillation, and deconditioning, sinus tachycardia. PLAN: Last night increased Coreg to 25 mg p.o. b.i.d. to help with the heart rate appreciated due to multifactorial reasons, high because of anemia, renal failure, and general condition. So, the patient is on warfarin 1 mg p.o. daily, aspirin 81 mg p.o. daily, ferrous sulfate 324 mg b.i.d., Flomax 0.4 daily, insulin as ordered, Lipitor 10 mg daily, Protonix 40 mg daily, Solu-Medrol 20 mg IV daily. We will continue present therapy. We will follow with you. Arabella Lopez MD
[2017-03-15] MEDS: Albuterol-Ipratrop 3 mg / 0.5 (3 ml) UD IH SCH ×7 (00:07→20:25)
[2017-03-15] MEDS: MethylPREDNISolone 40 mg Vial IVP SCH (05:13)
[2017-03-15] MEDS: Budesonide 0.5 mg/2 ml Inhal Susp UD IH SCH ×2 (07:15→20:25)
[2017-03-15 07:17] LABS: EOS % 0.2 % (1.5-5.0); GRAN # 8.66 (1.4-6.5); GRAN % 88.3 % (50.0-68.0); HEMATOCRIT 30.9 % (42.0-52.0); LYMPH # 0.5 (1.2-3.4); LYMPH % 5.1 % (22.0-35.0); MEAN CELL VOLUME 80.7 fl (80.0-105.0); MEAN CORPUSCULAR HEMOGLOBIN 25.8 pg (25.0-35.0); MEAN PLATELET VOLUME 11.1 fl (7.0-11.0); MONO # 0.6 (0.1-0.6); MONO % 6.4 % (1.0-6.0); WHITE BLOOD COUNT 9.8 10^3/ul (4.5-11.0)
[2017-03-15 07:28] LABS: INR 1.82 (0.93-1.08)
[2017-03-15 07:32] LABS: BILIRUBIN,TOTAL 0.4 mg/dL (0.2-1.3); CALCIUM 8.7 mg/dL (8.4-10.5); MAGNESIUM 2.1 mg/dL (1.7-2.2); PHOSPHOROUS 3.7 mg/dL (2.5-4.5); POTASSIUM 4.6 mmol/L (3.6-5.0); TOTAL PROTEIN 5.9 g/dL (5.8-8.3)
[2017-03-15] MEDS: Insulin Detemir 100 units/ml Vial (Levemir) SC SCH (07:58)
[2017-03-15] MEDS: Insulin Lispro 1 UNITS/0.01 ML SC SCH ×3 (07:58→18:09)
[2017-03-15] MEDS: Insulin Reg-MEDIUM-Coverage SC SCH ×4 (08:26→21:19)
[2017-03-15] MEDS: DUTASTERIDE PO SCH (10:10)
[2017-03-15] MEDS: guaiFENesin-DM 600-30 mg ER Tab PO SCH ×2 (10:10→18:06)
[2017-03-15] MEDS ORDERED: HYDROmorphone 1 mg/ml ISec IVP PRN (13:25)
--- NOTE | 2017-03-15 13:49 | PN ---
DATE: SUBJECTIVE: The patient is currently seen sitting up in bed with the help of the therapist. His is at the bedside. The patient's creatinine today is 2.9, his potassium level is 4.6, his diuretic therapy is on hold. He appears to be well compensated. The patient has completed a course of IV antibiotic therapy for his multi-lobe pneumonia. MEDICATIONS: Reviewed. The patient is on Coreg, Coumadin, DuoNeb, dutasteride, Ecotrin, Feosol, Flomax, insulin, Lipitor,Maalox, Mucinex, prednisone, Protonix, sodium bicarbonate and Pulmicort Respules. OBJECTIVE: VITAL SIGNS: Blood pressure 113/73, respiratory rate 18, pulse of 105 with temperature of 97.8. HEENT: Normocephalic, atraumatic. Conjunctiva remain pale. Sclera nonicteric. NECK: Supple. No neck vein distention. CHEST: Clear to auscultation and percussion. No rales, no rhonchi, no wheezing. CARDIOVASCULAR: Shows a regular rate and rhythm without murmurs, rubs, or gallops. ABDOMEN: Soft. Bowel sounds normal. Positive colostomy. No rebound. No guarding. No masses. EXTREMITIES: Shows absolutely no lower extremity edema, no cyanosis, or clubbing. LABORATORY DATA AND IMAGING: Labs today CBC; white blood cell count 9.8, hemoglobin 9.9 stable, platelet count is 167,000. Chemistry show normal electrolytes. Potassium 4.6 today, BUN is elevated 108. The patient's baseline BUN is in the upper 40 range. Baseline creatinine is in the mid 2 range. Today's creatinine is 2.9, slight improvement from yesterday is 3.0. Glucose is 224. Calcium, phosphorus, magnesium levels are normal. Liver enzymes are normal. Albumin is 3.0. ASSESSMENT: 1. Acute renal failure superimposed on chronic kidney disease stage IV. Again, baseline BUN is in the 40 with baseline creatinine is in the low to mid 2 range. The patient's diuretics are presently on hold. The patient appears to be well compensated and euvolemic. No choice here, but to discontinue the Lasix therapy at least during the hospitalization. Both IV and oral Lasix have been discontinued. In all likelihood, when he is ready for discharged home, he will need low dose diuretic therapy in light of his severe cardiomyopathy when ejection fraction of 15% to 20%. 2. History of multi-lobe pneumonia. The patient has completed a course of antibiotic therapy. 3. History of hypertension. Blood pressure control is acceptable on current medication. No angiotensin-converting enzyme inhibitors. No angiotensin receptor blockers because of his advanced chronic kidney disease. 4. History of congestive heart failure, cardiomyopathy, ejection fraction 15% to 20%. History of automatic implantable cardioverter-defibrillator. The patient is well compensated. Again, he will need to restart oral Lasix therapy upon discharge. 5. History of ujkbkkyluk-xs-ccso hyperkalemia. Potassium today is excellent at 4.6. The patient and family are adhering to all dietary restrictions. 6. History of metabolic acidosis. CO2 level is 21. The patient will continue oral bicarbonate supplements. 7. History of anemia secondary to chronic kidney disease. The patient will continue iron. Hemoglobin is acceptable at 9.9. Aranesp can be restarted on an as needed basis. 8. Past history of cerebrovascular accident, currently stable. 9. History of benign prostate hyperplasia, currently stable on medical therapy. PLAN: 1. Right now, the patient will remain off diuretic therapy and will be monitored on a daily basis. At present, he remains well compensated and euvolemic. He has no evidence of CHF and no edema. 2. Agree with decision to taper steroids. He has been switched from IV steroids to oral prednisone. 3. No plans to restart angiotensin receptor yimi therapy at this level of creatinine. Likewise no plans to start an PIETRO inhibitor. 4. Continue all dietary restrictions including 2 g potassium, renal diet and fluid restrictions. 5. Continue to monitor labs in the TCU. 6. Discussed with . Mio Stoddard MD
--- NOTE | 2017-03-15 17:50 | PN ---
REASON FOR THE CONSULTATION: Followup. Continue care in the Transitional Care Unit with history of CAD, history of AICD, cardiomyopathy, decreased LV function, ejection fraction 20%. SUBJECTIVE: The patient denies any chest pain, shortness of breath or any palpitation. He wanted to go home. OBJECTIVE GENERAL: Lying flat in the bed, not in apparent distress. VITAL SIGNS: Temperature afebrile, heart rate 106, blood pressure 113/73. HEENT: PERRLA. Extraocular muscles intact. NECK: Supple. No carotid bruit or thyromegaly. CHEST: Clear to auscultation. HEART: S1 and S2, regular. ABDOMEN: Soft. EXTREMITIES: Clubbing and cyanosis negative. LABORATORY DATA: Blood workup as follows; WBC 9., hemoglobin 9.9, hematocrit 30.8, platelet count 167. Chemistries showed sodium 140, potassium 4.6, chloride 108, carbon dioxide 21, anion gap of 16, BUN 108, and creatinine 2.9. Total protein 5.9, albumin 3, albumin globulin ratio 1. IMPRESSION: A 71-year-old male with past medical history significant for coronary artery disease, status post percutaneous transluminal coronary angioplasty of the left anterior descending, cardiomyopathy, status post automated implantable cardioverter defibrillator, ejection fraction 15% to 20%, history of stent in the artery, history of endovascular stent insertion of abdominal aortic aneurysm, paroxysmal atrial fibrillation, deconditioning of the body, sinus tachycardia, history of status post colostomy. At one point the patient was on Primacor, but now insurance refused. now the patient is off Primacor not at home on Entresto. RECOMMENDATION: Continue Coreg, continue Coumadin. Goal is to keep INR 2 to 2.5. INR is now 1.82. Continue iron supplement, continue atorvastatin, continue Coreg. We will follow with you to see if he is stable, possible discharge in a day or two. Thank you Dr. Ferrell for providing us the opportunity in taking care of the patient. I want nephrotoxic medication to monitor renal function closely. Arabella Mathews MD
[2017-03-15] MEDS: Alum-Mag Hydrox-Simethicone Susp (30 mL) PO PRN (19:01)
--- NOTE | 2017-03-15 21:31 | PN ---
DATE: 03/15/2017 SUBJECTIVE: The patient is seen earlier this morning, in no acute distress, nontoxic. PHYSICAL EXAMINATION VITAL SIGNS: Temperature is 98, blood pressure is 120/70, respiratory rate of 16. HEENT: Unremarkable. NECK: Supple. LUNGS: Decreased breath sounds. HEART: Normal S1 and S2. ABDOMEN: Soft. LABORATORY DATA: Reveals a white count of 9.8 and chemistries reveal a BUN of 108, creatinine of 2.9. Urinalysis is noted and microbiology is noted. ASSESSMENT AND PLAN: A 71-year-old [place] male, was seen earlier this morning in transitional care, was admitted in acute care with a probable sepsis with right-sided healthcare-associated pneumonia, completed antibiotics with doxycycline, cefepime, currently now off of antibiotics, afebrile, and review of the orders confirms no antibiotics. The patient is at risk for developing nosocomial infections. The patient is on prednisone p.o. currently on 5 mg once daily by Dr. Adenike Loza. We will follow with you. Walt Conner MD
[2017-03-16] MEDS: Albuterol-Ipratrop 3 mg / 0.5 (3 ml) UD IH SCH ×5 (00:25→23:56)
[2017-03-16] MEDS: Insulin Lispro 1 UNITS/0.01 ML SC SCH ×3 (06:38→16:55)
[2017-03-16] MEDS: Insulin Reg-MEDIUM-Coverage SC SCH ×4 (06:39→22:27)
[2017-03-16] MEDS: Insulin Detemir 100 units/ml Vial (Levemir) SC SCH (06:40)
[2017-03-16] MEDS: Pantoprazole 40 mg EC Tab PO SCH (06:41)
[2017-03-16 06:51] LABS: GRAN # 9.62 (1.4-6.5); HEMATOCRIT 31.9 % (42.0-52.0); LYMPH # 0.3 (1.2-3.4); LYMPH % 2.9 % (22.0-35.0); MEAN CELL VOLUME 81.2 fl (80.0-105.0); MEAN CORPUSCULAR HEMOGLOBIN 25.7 pg (25.0-35.0); MEAN CORPUSCULAR HGB CONC 31.7 g/dl (31.0-37.0); MEAN PLATELET VOLUME 11.1 fl (7.0-11.0); MONO # 0.9 (0.1-0.6); MONO % 8.1 % (1.0-6.0); PLATELET COUNT 163 10^3/uL (120.0-450.0); RED CELL DISTRIBUTION WIDTH 18.4 % (11.5-14.5); WHITE BLOOD COUNT 10.8 10^3/ul (4.5-11.0)
[2017-03-16] MEDS: Budesonide 0.5 mg/2 ml Inhal Susp UD IH SCH ×2 (07:18→20:28)
[2017-03-16 07:22] LABS: BILIRUBIN,TOTAL 0.5 mg/dL (0.2-1.3); CALCIUM 8.8 mg/dL (8.4-10.5); POTASSIUM 4.7 mmol/L (3.6-5.0); TOTAL PROTEIN 5.9 g/dL (5.8-8.3)
[2017-03-16] MEDS: guaiFENesin-DM 600-30 mg ER Tab PO SCH ×2 (09:01→18:05)
[2017-03-16] MEDS: DUTASTERIDE PO SCH (09:03)
[2017-03-16 09:10] LABS: BAND 2 % (0-2); NEUTROPHIL 85 % (50.0-70.0); PLATELET ESTIMATE NORMAL (NORMAL)
[2017-03-16 09:11] LABS: ANISOCYTOSIS 1+; HYPOCHROMIA SLIGHT; MICROCYTOSIS 1+; OVALOCYTES SLIGHT; POIKILOCYTOSIS SLIGHT
[2017-03-16 10:51] LABS: INR 1.81 (0.93-1.08)
--- NOTE | 2017-03-16 14:01 | CP.PCM.PN ---
<Filippo Dudley - Last Filed: 03/16/17 15:04> Subjective - Date & Time of Evaluation Date of Evaluation: 03/16/17 Time of Evaluation: 07:15 - Subjective Subjective: Filippo Dudley DO PGY1 Medicine Progress Note Patient was seen and examined at bedside. No acute events overnight. Patient was having heart burn again and did not eat dinner last night. Patient was given maalox for the heart burn and was able to eat breakfast. Patient also stated he had a headache so he was given tylenol. Pt denied SOB, chest pain, dizziness, n/v/d/c. Objective - Vital Signs/Intake and Output Vital Signs (last 24 hours): Temp Pulse Resp BP Pulse Ox 98.2 F 82 18 104/73 95 03/16/17 10:41 03/16/17 10:41 03/16/17 10:41 03/16/17 10:41 03/15/17 17:00 - Medications Medications: Current Medications Al Hydrox/Mg Hydrox/Simethicone (Maalox Plus 30 Ml) 30 ml PO Q6H PRN PRN Reason: Indigestion / Heartburn Last Admin: 03/15/17 19:01 Dose: 30 ml Albuterol/Ipratropium (Duoneb 3 Mg/0.5 Mg (3 Ml) Ud) 3 ml IH [id number] ANTHONY PRN Reason: Protocol Last Admin: 03/16/17 11:10 Dose: 3 ml Aspirin (Ecotrin) 81 mg PO 0800 ANTHONY PRN Reason: Protocol Last Admin: 03/16/17 08:57 Dose: 81 mg Atorvastatin Calcium (Lipitor) 10 mg PO DAILY ANTHONY PRN Reason: Protocol Last Admin: 03/16/17 09:04 Dose: 10 mg Budesonide (Pulmicort Respules) 0.5 mg IH [id number] ANTHONY PRN Reason: Protocol Last Admin: 03/16/17 07:18 Dose: 0.5 mg Carvedilol (Coreg) 25 mg PO 0800,1800 ANTHONY Last Admin: 03/16/17 08:58 Dose: 25 mg Ferrous Sulfate (Feosol) 324 mg PO 0800,1800 ANTHONY PRN Reason: Protocol Last Admin: 03/16/17 08:57 Dose: 324 mg Guaifenesin/Dextromethorphan (Mucinex-Dm 600-30 Mg) 1 tab PO BID ANTHONY PRN Reason: Protocol Last Admin: 03/16/17 09:01 Dose: 1 tab Hydromorphone HCl (Dilaudid) 1 mg IVP Q4H PRN PRN Reason: Pain, severe (8-10) Last Admin: 03/16/17 09:27 Dose: 1 mg Insulin Detemir (Levemir) 18 unit SC ACB [facility] PRN Reason: Protocol Last Admin: 03/16/17 06:40 Dose: 18 unit Insulin Human Lispro (Humalog) 6 units SC AC AN[facility]Y PRN Reason: Protocol Last Admin: 03/16/17 11:55 Dose: 6 units Insulin Human Regular (Humulin R Med) 0 units SC ACHS [facility] PRN Reason: Protocol Last Admin: 03/16/17 13:07 Dose: 5 units Non-Formulary Medication (Dutasteride [Dutasteride]) 1 cap PO DAILY [facility] Last Admin: 03/16/17 09:03 Dose: 1 cap Pantoprazole Sodium (Protonix Ec Tab) 40 mg PO 0630 [facility] PRN Reason: Protocol Last Admin: 03/16/17 06:41 Dose: 40 mg Prednisone (Prednisone Tab) 5 mg PO 0800 [facility] Last Admin: 03/16/17 09:05 Dose: 5 mg Sodium Bicarbonate (Sodium Bicarbonate Tab) 650 mg PO TID [facility] PRN Reason: Protocol Last Admin: 03/16/17 09:01 Dose: 650 mg Tamsulosin HCl (Flomax) 0.4 mg PO 1800 [facility] PRN Reason: Protocol Last Admin: 03/15/17 18:05 Dose: 0.4 mg Warfarin Sodium (Coumadin) 1 mg PO 1800 [facility] PRN Reason: Protocol Last Admin: 03/15/17 18:04 Dose: 1 mg - Labs Labs: 03/16/17 06:00 03/16/17 06:00 PT 19.5 Seconds (9.9-11.8) H 03/16/17 07:00 INR 1.81 (0.93-1.08) H 03/16/17 07:00 - Constitutional Appears: No Acute Distress - Head Exam Head Exam: ATRAUMATIC - Respiratory Exam Respiratory Exam: absent: Rales, Wheezes, Stridor - Cardiovascular Exam Cardiovascular Exam: REGULAR RHYTHM, +S1, +S2. absent: Rubs - Extremities Exam Extremities Exam: Normal Inspection - Psychiatric Exam Psychiatric exam: Normal Affect, Normal Mood Assessment and Plan - Assessment and Plan (Free Text) Assessment: Assessment: Patient is a 71 M with PMH of IDDM, CHF (EF 20%) with AICD placement, HTN, HLD, CVA, CKD stage IV, BPH, LLE DVT, atrial fibrillation, COPD and lung CA s/p radiation who presented to the ED complaining of increased lethargy and SOB, was found to have pneumonia with superimposed CHF. Patient is currently in TCU. Plan: 1. HAP ( right upper and basal) with superimposed CHF exacerbation with a COPD component. - Patient completed 7 days of antibiotics - Currently afebrile, no leukocytosis. - Will continue mucinex prn - Tapering dose solu medrol - Will continue with duoneb - Symptom improved. - Patient is being followed by multiple service. 3.[place] on CKD 4 - Creatiinine stable at 2.9 - U/S with no hydronephrosis and multiple chronic renal cysts - holding ARB's and lasix in setting of [place] - Nephro on consult. 4. CHF -Will continue coreg -Entresto on hold in setting of [place] - Cardiology following 5. IDDM2 - A1C of 7.4 - Will continue basal , and pre meal insulin. - Continue ISS, and carb controlled diet. 6. Chronic Atrial Fibrillation- rate controlled - INR of 1.81 -Continue Coumadin 7. Hyperkalemia-Resolved will continue to monitor 8. BPH -continue flomax and dutasteride 9. Iron Deficiency Anemia -stable, will continue iron po. 10. Intermittent AMS/Agitation - Negative CT head - AMS resolved. 11. Acid Reflux -started on carafate for 2 weeks 12. GI/DVT Prophylaxis - Protonix po, and on Coumadin as well. Patient seen and case discussed with Dr Salas. <Jaden Salas - Last Filed: 03/24/17 17:31> Objective - Vital Signs/Intake and Output Vital Signs (last 24 hours): Temp Pulse Resp BP Pulse Ox 98 F 97 H 18 111/78 97 03/17/17 11:56 03/17/17 11:56 03/17/17 11:56 03/17/17 11:56 03/17/17 11:56 - Labs Labs: 03/17/17 07:30 03/17/17 07:30 PT 21.7 Seconds (9.9-11.8) H 03/17/17 07:30 INR 2.01 (0.93-1.08) H 03/17/17 07:30 Attending/Attestation - Attestation I have personally seen and examined this patient.: Yes I have fully participated in the care of the patient.: Yes I have reviewed all pertinent clinical information, including history, physical exam and plan: Yes Notes (Text): I have seen and examined the patient at bedside. Agree with the note dictated above with the following additions/ exceptions: Briefly this is 71 year old male with history of IDDM, HTN, dyslipidemia, CVA, CHF (LVEF ~15%) with AICD placement, AAA s/p repair that was complicated by endoleak, ischemic colitis with right-sided hemicolectomy and ileostomy with rectal stump, stage IV CKD, BPH, LLE DVT, atrial fibrillation, COPD and prior history of multi-drug resistant klebsiella UTI who was admitted for SOB secondary to HCAP. Patient feels well and denies any complaints. He does not have any suprapubic tenderness. He has completed antibiotics. Continue to hold lasix. Patient has acute on CKD. Will taper solumedrol. INR therapeutic. He has NAGMA on po bicarb. Discussed in detail with patients . Plan to dc patient tomorrow. Upon discharge patient will follow up with Dr Palacios. Dr Jaden Salas
--- NOTE | 2017-03-16 15:48 | CP.PCM.PN ---
Subjective - Date & Time of Evaluation Date of Evaluation: 03/16/17 Time of Evaluation: 10:40 - Subjective Subjective: Comfortable in bed, no SOB at rest, no fevers. Objective - Vital Signs/Intake and Output Vital Signs (last 24 hours): Temp Pulse Resp BP Pulse Ox 98.3 F 119 H 18 120/85 95 03/15/17 17:00 03/16/17 08:58 03/15/17 17:00 03/16/17 08:58 03/15/17 17:00 - Medications Medications: Current Medications Al Hydrox/Mg Hydrox/Simethicone (Maalox Plus 30 Ml) 30 ml PO Q6H PRN PRN Reason: Indigestion / Heartburn Last Admin: 03/15/17 19:01 Dose: 30 ml Albuterol/Ipratropium (Duoneb 3 Mg/0.5 Mg (3 Ml) Ud) 3 ml IH [id number] ANTHONY PRN Reason: Protocol Last Admin: 03/16/17 07:18 Dose: 3 ml Aspirin (Ecotrin) 81 mg PO 0800 ANTHONY PRN Reason: Protocol Last Admin: 03/16/17 08:57 Dose: 81 mg Atorvastatin Calcium (Lipitor) 10 mg PO DAILY ANTHONY PRN Reason: Protocol Last Admin: 03/16/17 09:04 Dose: 10 mg Budesonide (Pulmicort Respules) 0.5 mg IH [id number] ANTHONY PRN Reason: Protocol Last Admin: 03/16/17 07:18 Dose: 0.5 mg Carvedilol (Coreg) 25 mg PO 0800,1800 [facility] Last Admin: 03/16/17 08:58 Dose: 25 mg Ferrous Sulfate (Feosol) 324 mg PO 0800,1800 ANTHONY PRN Reason: Protocol Last Admin: 03/16/17 08:57 Dose: 324 mg Guaifenesin/Dextromethorphan (Mucinex-Dm 600-30 Mg) 1 tab PO BID ANTHONY PRN Reason: Protocol Last Admin: 03/16/17 09:01 Dose: 1 tab Hydromorphone HCl (Dilaudid) 1 mg IVP Q4H PRN PRN Reason: Pain, severe (8-10) Insulin Detemir (Levemir) 18 unit SC ACB AN[facility]Y PRN Reason: Protocol Last Admin: 03/16/17 06:40 Dose: 18 unit Insulin Human Lispro (Humalog) 6 units SC AC [facility] PRN Reason: Protocol Last Admin: 03/16/17 06:38 Dose: 6 units Insulin Human Regular (Humulin R Med) 0 units SC ACHS AN[facility]Y PRN Reason: Protocol Last Admin: 03/16/17 06:39 Dose: 3 units Non-Formulary Medication (Dutasteride [Dutasteride]) 1 cap PO DAILY [facility] Last Admin: 03/16/17 09:03 Dose: 1 cap Pantoprazole Sodium (Protonix Ec Tab) 40 mg PO 0630 [facility] PRN Reason: Protocol Last Admin: 03/16/17 06:41 Dose: 40 mg Prednisone (Prednisone Tab) 5 mg PO 0800 [facility] Last Admin: 03/16/17 09:05 Dose: 5 mg Sodium Bicarbonate (Sodium Bicarbonate Tab) 650 mg PO TID [facility] PRN Reason: Protocol Last Admin: 03/16/17 09:01 Dose: 650 mg Tamsulosin HCl (Flomax) 0.4 mg PO 1800 [facility] PRN Reason: Protocol Last Admin: 03/15/17 18:05 Dose: 0.4 mg Warfarin Sodium (Coumadin) 1 mg PO 1800 [facility] PRN Reason: Protocol Last Admin: 03/15/17 18:04 Dose: 1 mg - Labs Labs: 03/16/17 06:00 03/16/17 06:00 PT 19.7 Seconds (9.9-11.8) H 03/15/17 06:50 INR 1.82 (0.93-1.08) H 03/15/17 06:50 - Constitutional Appears: Non-toxic, No Acute Distress - Head Exam Head Exam: NORMAL INSPECTION - ENT Exam ENT Exam: Mucous Membranes Moist - Neck Exam Neck Exam: absent: Meningismus - Respiratory Exam Respiratory Exam: Decreased Breath Sounds - Cardiovascular Exam Cardiovascular Exam: +S1, +S2 - GI/Abdominal Exam GI & Abdominal Exam: Soft. absent: Tenderness Assessment and Plan - Assessment and Plan (Free Text) Plan: Assessment S/P sepsis due to right sided healthcare-associated pneumonia history of UTI with carbapenem-resistant Klebsiella history of ESBL-producing Klebsiella bacteremia, secondary to the port S/P removal S/P treatment for healthcare-associated pneumonia history of C diff associated diarrhea history of UTI with yeast history healthcare-associated pneumonia Severe cardiomyopathy with EF 10-15 % paroxysmal atrial fibrillation Coronary artery disease S/P stenting history of aortic aneurysm history of SVT S/P AICD placement S/P procedure on his prostate in 2012 S/P partial colectomy and colostomy Plan S/P Doxycycline and Cefepime - will continue to monitor the patient off antibiotics since he is at risk for nosocomial infections
[2017-03-16] MEDS: Sucralfate 1 gm/10 ml Oral Susp UD PO SCH (16:55)
[2017-03-16] MEDS: Alum-Mag Hydrox-Simethicone Susp (30 mL) PO PRN (18:02)
--- NOTE | 2017-03-16 20:04 | PN ---
DATE: 03/16/2017 REASON FOR CONSULTATION: Followup continued care in the transitional care unit, history of CAD, history of AICD, cardiomyopathy, decreased LV function, and ejection fraction 15%-20%. SUBJECTIVE: The patient denies any chest pain, shortness of breath or any palpitation, lying flat, and wanted to go home. OBJECTIVE: GENERAL: Lying flat in the bed, not in apparent distress. VITAL SIGNS: Temperature afebrile, heart rate 59, and blood pressure 147/87. HEENT: PERRLA. Extraocular muscles intact. NECK: Supple. No carotid bruit or thyromegaly. CHEST: Clear to auscultation. HEART: S1 and S2, regular. ABDOMEN: Soft. EXTREMITIES: Clubbing and cyanosis negative. LABORATORY DATA: Blood workup as follows; WBC 10.8, hemoglobin , hematocrit 31.9, and platelet count 163. Chemistries showed sodium 142, potassium 4.7, chloride 110, carbon dioxide 23, anion gap of 14, BUN 104, and creatinine 2.9. IMPRESSION: A 71-year-old male with past medical history significant for paroxysmal atrial fibrillation, coronary artery disease, status post percutaneous transluminal coronary angioplasty of left anterior descending in the past, cardiomyopathy with decreased left ventricular function, ejection fraction of 15%-20%, history of endovascular stent placement for abdominal aortic aneurysm, paroxysmal atrial fibrillation, deconditioning of the body, sinus tachycardia, history of colostomy secondary to intestinal obstruction. At one point, the patient was on Primacor because of insurance refused. Acute kidney injury on chronic renal insufficiency, decompensated congestive heart failure, and acute on chronic systolic dysfunction. RECOMMENDATIONS: Continue Coreg and continue carvedilol. Goal is to keep INR between 2 to 2.5, await for INR. Continue iron supplement, continue aspirin, continue Flomax, continue insulin, and continue atorvastatin. Discharge planning, we will repeat the PT/INR in the morning. We will treat patient medically. We will repeat the PT/INR today. Thank you Dr. Arreguin/Mariaelena for providing the opportunity in taking care of [place]. Arabella Mathews MD [facility] # [id number]
--- NOTE | 2017-03-16 20:18 | PN ---
SUBJECTIVE: The patient is currently seen lying comfortable in bed in the TCU. His is at bedside. Renal parameters remained stable. BUN 104, creatinine 2.9. Potassium today is 4.7. The patient continues to remain stable, off diuretic therapy. MEDICATIONS: Reviewed. The patient is on Coreg, Coumadin, Dilaudid, DuoNeb, dutasteride, Ecotrin, Feosol, Flomax, Humalog, Levemir, Lipitor, Mucinex, prednisone 5 mg a day, Protonix, Pulmicort Respules, and sodium bicarbonate. OBJECTIVE: VITAL SIGNS: Blood pressure 120/85, heart rate ranging from 59 to 119. Temperature 98.3, respiratory rate is 18. HEENT: Normocephalic, atraumatic. Conjunctiva are pale. Sclera nonicteric. NECK: Supple. No neck vein distention. CHEST: Clear to auscultation and percussion. No rales, no rhonchi, no wheezing. CARDIOVASCULAR: Shows a regular rate and rhythm without murmurs, rubs, or gallops. ABDOMEN: Soft. Bowel sounds normal. Colostomy in place. No rebound. No guarding. No masses. EXTREMITIES: Show no lower extremity cyanosis, clubbing, or edema. LABORATORY DATA AND IMAGING: CBC today white blood cell count 10.8 with a hemoglobin of 10.1 and a platelet count of 163,000. Chemistry show a sodium of 142, potassium 4.7, chloride 110 with CO2 of 23, BUN 104 with a creatinine of 2.9. Glucose 228, calcium 8.8, last phosphorus 3.7 with a magnesium of 2.1, albumin is 3.0. The patient's baseline BUN is in the upper 40 range with the baseline creatinine in the mid 2 range. ASSESSMENT: 1. Acute renal failure, superimposed on chronic kidney disease stage IV. Again, the patient's BUN and creatinine remained above baseline levels, but appeared to have plateaued and remained stable. The patient will be maintained off diuretic therapy at present time. He does have a severe cardiomyopathy and in all likelihood oral diuretic therapy will need to be restarted post hospitalization. 2. History of multi-lobe pneumonia. The patient has completed a course of antibiotic therapy. 3. History of hypertension. Blood pressure controlled on present medication. I would suggest not placing the patient back on an angiotensin receptor yimi which was part of his medication at home until his BUN and creatinine fall to baseline levels. Likewise, no PIETRO inhibitors should be started. 4. History of congestive heart failure, cardiomyopathy, ejection fraction 15% to 20%. History of automatic implantable cardioverter-defibrillator. The patient appears to be well compensated. Right now, I did encourage the patient's to have him increase his p.o. fluid intake and avoid any dehydration. 5. Status post mild hyperkalemia. The patient will get a renal diet, low potassium diet. 6. History of metabolic acidosis. CO2 level improved to 23. The patient will continue sodium bicarbonate supplements. This can be adjusted in the outpatient setting. 7. History of anemia secondary to chronic kidney disease, hemoglobin 10.1. The patient will continue oral iron therapy. Aranesp can be restarted on an as needed basis in the outpatient setting. The patient might be a candidate for Procrit therapy in the office setting. 8. History of cerebrovascular accident, currently stable. 9. History of benign prostate hyperplasia, currently stable on present medical therapy. PLAN: The patient appears to be clinically stable. He is likely going to be discharged in the next 24 hours as per my discussion with the staff in the TCU and his . For right now, I would not send the patient home on any Lasix therapy. He should be followup closely in the outpatient setting. He is welcome to return to see us for his renal issue. He should follow with cardiology and his primary care physician, Dr. Palacios. This has been discussed with his in detail. Mio Stoddard MD
[2017-03-17] MEDS: Albuterol-Ipratrop 3 mg / 0.5 (3 ml) UD IH SCH ×3 (04:49→11:05)
[2017-03-17] MEDS: Insulin Reg-MEDIUM-Coverage SC SCH ×2 (06:30→11:55)
[2017-03-17] MEDS: Insulin Lispro 1 UNITS/0.01 ML SC SCH ×2 (06:30→11:54)
[2017-03-17] MEDS: Sucralfate 1 gm/10 ml Oral Susp UD PO SCH (06:31)
[2017-03-17] MEDS: Pantoprazole 40 mg EC Tab PO SCH (06:31)
[2017-03-17] MEDS: Insulin Detemir 100 units/ml Vial (Levemir) SC SCH (06:31)
[2017-03-17] MEDS: Budesonide 0.5 mg/2 ml Inhal Susp UD IH SCH (07:43)
[2017-03-17 08:14] LABS: EOS # 0.2 (0.0-0.7); EOS % 1.6 % (1.5-5.0); GRAN # 9.18 (1.4-6.5); GRAN % 79.9 % (50.0-68.0); HEMATOCRIT 32.9 % (42.0-52.0); LYMPH # 1.1 (1.2-3.4); LYMPH % 9.3 % (22.0-35.0); MEAN CELL VOLUME 82.5 fl (80.0-105.0); MEAN CORPUSCULAR HEMOGLOBIN 26.1 pg (25.0-35.0); MEAN CORPUSCULAR HGB CONC 31.6 g/dl (31.0-37.0); MEAN PLATELET VOLUME 10.3 fl (7.0-11.0); MONO # 1.1 (0.1-0.6); MONO % 9.2 % (1.0-6.0); RED CELL DISTRIBUTION WIDTH 18.6 % (11.5-14.5); WHITE BLOOD COUNT 11.5 10^3/ul (4.5-11.0)
[2017-03-17 08:17] LABS: INR 2.01 (0.93-1.08)
[2017-03-17 08:21] LABS: ALB/GLOB RATIO 1.1 (1.1-1.8); BILIRUBIN,TOTAL 0.5 mg/dL (0.2-1.3); CALCIUM 8.7 mg/dL (8.4-10.5); POTASSIUM 4.6 mmol/L (3.6-5.0); TOTAL PROTEIN 5.8 g/dL (5.8-8.3)
[2017-03-17] MEDS: DUTASTERIDE PO SCH (10:02)
[2017-03-17] MEDS: guaiFENesin-DM 600-30 mg ER Tab PO SCH (10:03)
[2017-03-17 11:56] VITALS: BP 111/78; PULSE 97; RESP 18; TEMP 98; O2SAT 97
--- NOTE | 2017-03-17 11:58 | PN ---
DATE: SUBJECTIVE: The patient is currently seen in TCU, sitting up in bed. There is a tentative discharge for later today. The patient's BUN is down to 99 with a creatinine of 2.8. The patient remains stable, euvolemic, and off diuretic therapy. Potassium is 4.6 today. MEDICATIONS: Medications list reviewed. The patient is on Carafate, Coreg, Coumadin, Dilaudid, DuoNeb, dutasteride, Ecotrin, Feosol, Flomax, insulin, Lipitor, Maalox, Mucinex, prednisone 5 mg, Protonix, Pulmicort, sodium bicarbonate, and Zofran p.r.n. OBJECTIVE: VITAL SIGNS: Blood pressure 114/78, temperature of 97.3, pulse of 90, and respiratory rate 15. HEENT: Normocephalic and atraumatic. Conjunctivae remain pale. Sclerae nonicteric. NECK: Supple. No neck vein distention. CHEST: Clear to auscultation and percussion. No rales, no rhonchi, and no wheezing. CARDIOVASCULAR: Shows a regular rate and rhythm without audible murmurs, rubs, or gallops. ABDOMEN: Soft. Bowel sounds normal. No rebound. No guarding. No masses. Colostomy in place. EXTREMITIES: Shows no lower extremity cyanosis, clubbing, or edema. LABORATORY DATA AND IMAGING: CBC today; white blood cell count 11.5, hemoglobin 10.4, and platelet count is 164,000. Coag show an INR of 2.01. Chemistries show normal electrolytes. Potassium 4.6, chloride 109, CO2 of 23, BUN is slightly lower at 99 with a creatinine slightly lower at 2.8. Glucose is 65. Calcium is 8.7. Liver enzymes are normal. Albumin is 3.0. ASSESSMENT: 1. Acute renal failure superimposed on chronic kidney disease stage IV. Again, the patient remains prerenal. He is currently off diuretic therapy and appears to be well compensated. We will likely need to accept a more advanced degree of prerenal azotemia in light of his severe cardiomyopathy. At present, I will discharge patient off diuretics, but he would need to be monitored closely for any increase fluid gains, weight gain or any shortness of breath, at which point in time diuretics will need to be restarted. 2. History of multi-lobe pneumonia. The patient has completed a course of antibiotic therapy. 3. History of hypertension. Blood pressure is controlled, but again I would leave the patient off of angiotensin-receptor yimi therapy and PIETRO inhibitors in light of his elevated BUN and creatinine levels above baseline levels. 4. History of congestive heart failure, cardiomyopathy, ejection fraction 15%-20%. History of automatic implantable cardioverter-defibrillator. The patient again is well compensated. The patient should avoid dehydration at home and at present should be discharged home off diuretic therapy. 5. Status post mild hyperkalemia. Potassium levels are normal with strict dietary restriction and slight improvement in his renal parameters. 6. History of metabolic acidosis. Right now, the patient may continue sodium bicarbonate supplements orally. 7. History of anemia secondary to chronic kidney disease. Hemoglobin is acceptable in 10-11 range. No need to start Procrit therapy at this time. 8. History of cerebrovascular accident. 9. History of benign prostatic hyperplasia, currently stable on present medical therapy. PLAN: Discussed with staff in the TCU, discussed with the patient's and with patient. In all likelihood, the patient will be discharged home later today. The patient is welcome to follow up with us in the outpatient setting. Right now, the patient should not be sent home on diuretic therapy and again I would avoid PIETRO inhibition or angiotensin-receptor yimi therapy in light of the fact that his BUN and creatinine are above baseline levels. Mio Stoddard MD
--- NOTE | 2017-03-17 14:26 | CP.PCM.DIS ---
Provider - Provider Date of Admission: 03/09/17 15:04 Attending physician: Jaden Salas MD Consults: Cardiology, Nephrology and ID Time Spent in preparation of Discharge (in minutes): 50 Diagnosis - Discharge Diagnosis (1) A-fib Status: Chronic (2) Abdominal aneurysm Status: Chronic (3) DM2 (diabetes mellitus, type 2) Status: Chronic (4) Pacemaker Status: Chronic (5) Renal failure (ARF), acute on chronic Status: Chronic (6) Benign prostate hyperplasia Status: Chronic (7) Coronary artery disease Status: Chronic (8) Hyperlipidemia Status: Chronic (9) Hypertension Status: Chronic (10) DVT (deep venous thrombosis) Status: Chronic Hospital Course - Lab Results Lab Results: Most Recent Lab Values WBC 11.5 10^3/ul (4.5-11.0) H 03/17/17 07:30 RBC 3.99 10^6/uL (3.5-6.1) 03/17/17 07:30 Hgb 10.4 g/dL (14.0-18.0) L 03/17/17 07:30 Hct 32.9 % (42.0-52.0) L 03/17/17 07:30 MCV 82.5 fl (80.0-105.0) 03/17/17 07:30 MCH 26.1 pg (25.0-35.0) 03/17/17 07:30 MCHC 31.6 g/dl (31.0-37.0) 03/17/17 07:30 RDW 18.6 % (11.5-14.5) H 03/17/17 07:30 Plt Count 164 10^3/uL (120.0-450.0) 03/17/17 07:30 MPV 10.3 fl (7.0-11.0) 03/17/17 07:30 Gran % 79.9 % (50.0-68.0) H 03/17/17 07:30 Lymph % (Auto) 9.3 % (22.0-35.0) L 03/17/17 07:30 [place] % (Auto) 9.2 % (1.0-6.0) H 03/17/17 07:30 Eos % (Auto) 1.6 % (1.5-5.0) 03/17/17 07:30 Baso % (Auto) 0.0 % (0.0-3.0) 03/17/17 07:30 Gran # 9.18 (1.4-6.5) H 03/17/17 07:30 Lymph # 1.1 (1.2-3.4) L 03/17/17 07:30 [place] # 1.1 (0.1-0.6) H 03/17/17 07:30 Eos # 0.2 (0.0-0.7) 03/17/17 07:30 Baso # 0.00 K/mm3 (0.0-2.0) 03/17/17 07:30 Neutrophils % (Manual) 85 % (50.0-70.0) H 03/16/17 06:00 Band Neutrophils % 2 % (0-2) 03/16/17 06:00 Lymphocytes % (Manual) 5 % (22.0-35.0) L 03/16/17 06:00 Monocytes % (Manual) 8 % (1.0-6.0) H 03/16/17 06:00 Platelet Evaluation Normal (NORMAL) 03/16/17 06:00 Hypochromasia Slight 03/16/17 06:00 Poikilocytosis (manual Slight 03/16/17 06:00 Anisocytosis (manual) 1+ 03/16/17 06:00 Microcytosis (manual) 1+ 03/16/17 06:00 Ovalocytes Slight 03/16/17 06:00 PT 21.7 Seconds (9.9-11.8) H 03/17/17 07:30 INR 2.01 (0.93-1.08) H 03/17/17 07:30 Sodium 142 mmol/L (132-148) 03/17/17 07:30 Potassium 4.6 mmol/L (3.6-5.0) 03/17/17 07:30 Chloride 109 mmol/L (98-107) H 03/17/17 07:30 Carbon Dioxide 23 mmol/L (21-33) 03/17/17 07:30 Anion Gap 15 (10-20) 03/17/17 07:30 BUN 99 mg/dL (7-21) H 03/17/17 07:30 Creatinine 2.8 mg/dL (0.5-1.4) H 03/17/17 07:30 Est GFR ( Amer) 27 03/17/17 07:30 Est GFR (Non-Af Amer) 22 03/17/17 07:30 POC Glucose (mg/dL) 75 mg/dL (65-110) 03/17/17 05:23 Random Glucose 65 mg/dL (70-110) L 03/17/17 07:30 Calcium 8.7 mg/dL (8.4-10.5) 03/17/17 07:30 Phosphorus 3.7 mg/dL (2.5-4.5) 03/15/17 06:50 Magnesium 2.1 mg/dL (1.7-2.2) 03/15/17 06:50 Total Bilirubin 0.5 mg/dL (0.2-1.3) 03/17/17 07:30 AST 24 U/L (15-59) 03/17/17 07:30 ALT 42 U/L (7-56) 03/17/17 07:30 Alkaline Phosphatase 75 U/L (38-133) 03/17/17 07:30 Total Protein 5.8 g/dL (5.8-8.3) 03/17/17 07:30 Albumin 3.0 g/dL (3.0-4.8) 03/17/17 07:30 Globulin 2.8 gm/dL 03/17/17 07:30 Albumin/Globulin Ratio 1.1 (1.1-1.8) 03/17/17 07:30 Urine Color Yellow (YELLOW) 03/12/17 17:00 Urine Appearance Clear (CLEAR) 03/12/17 17:00 Urine pH 5.5 (4.7-8.0) 03/12/17 17:00 Ur Specific [place] 1.020 (1.005-1.035) 03/12/17 17:00 Urine Protein 100 mg/dL (<30 mg/dL) H 03/12/17 17:00 Urine Glucose (UA) Negative mg/dL (NEGATIVE) 03/12/17 17:00 Urine Ketones Negative mg/dL (NEGATIVE) 03/12/17 17:00 Urine Blood Large (NEGATIVE) H 03/12/17 17:00 Urine Nitrate Negative (NEGATIVE) 03/12/17 17:00 Urine Bilirubin Negative (NEGATIVE) 03/12/17 17:00 Urine Urobilinogen 0.2 E.U./dL (<1 E.U./dL) 03/12/17 17:00 Ur Leukocyte Esterase Negative Raj/uL (NEGATIVE) 03/12/17 17:00 Urine RBC 15 - 20 /hpf (0-2) 03/12/17 17:00 Urine WBC 0 - 2 /hpf (0-6) 03/12/17 17:00 Ur Epithelial Cells 0 - 2 /hpf (0-5) 03/12/17 17:00 Amorphous Sediment Few 03/12/17 17:00 Urine Bacteria Few (NEG) 03/12/17 17:00 - Hospital Course Hospital Course: 71 year old male with a past medical history significant for IDDM, CHF (EF 20%) with AICD placement, HTN, HLD, CVA, CKD stage IV, BPH, LLE DVT, atrial fibrillation, COPD and lung CA s/p radiation who presented to the ED complaining of increased lethargy and SOB over the course of the past few days with no inciting event. Patient speaks Amharic only and translation was provided by patients and son. Per family, patient has been having SOB with an associated dry cough for three days. They claim that because he is unable to produce any sputum, he has become congested and this has led him to have a difficult time breathing which has made him more lethargic than usual. He described this sensation as a chest tightness or pressure. Patient was Started on IV solumedrol, Xopenex, and chest xray was done which showed infiltrates and He was started on antibiotics. Cardiology was consulted for the his CHF. Patient developed [place], K was monitored and a pulmonary evaluation was ordered. The blood sugars were also monitored and insulin was adjusted accordingly. Patient was then transferred to TCU renal US ordered for abnormal Creatine level. The patient began to stabilize and do better clinically with improved breathing and lung sounds. Prednisone was tapered. INR was followed. Carafate was given for reflux and patient was discharged to home. Discharge Exam - Head Exam Head Exam: NORMAL INSPECTION Discharge Plan - Discharge Medications Prescriptions: Carvedilol [Coreg] 25 mg PO 0800,1800 #30 tab Sucralfate [Carafate Oral Susp] 1 gm PO 0600,1600 #28 Sucralfate [Carafate Tab] 1 gm PO DAILY #28 tab - Follow Up Plan Condition: GOOD Disposition: HOME/ ROUTINE Instructions: Heart Failure (DC), Coronary Artery Disease (DC), Atrial Fibrillation (DC), Lung Cancer (DC), Pneumonia (DC)
--- NOTE | 2017-03-17 15:18 | CP.PCM.PN ---
Subjective - Date & Time of Evaluation Date of Evaluation: 03/17/17 Time of Evaluation: 10:30 - Subjective Subjective: Comfortable in bed, not in distress, afebrile. Objective - Vital Signs/Intake and Output Vital Signs (last 24 hours): Temp Pulse Resp BP Pulse Ox 97.3 F L 90 15 114/78 95 03/16/17 16:59 03/17/17 08:27 03/16/17 16:59 03/17/17 08:27 03/15/17 17:00 - Medications Medications: Current Medications Al Hydrox/Mg Hydrox/Simethicone (Maalox Plus 30 Ml) 30 ml PO Q6H PRN PRN Reason: Indigestion / Heartburn Last Admin: 03/16/17 18:02 Dose: 30 ml Albuterol/Ipratropium (Duoneb 3 Mg/0.5 Mg (3 Ml) Ud) 3 ml IH [id number] ANTHONY PRN Reason: Protocol Last Admin: 03/17/17 07:43 Dose: 3 ml Aspirin (Ecotrin) 81 mg PO 0800 ANTHONY PRN Reason: Protocol Last Admin: 03/17/17 08:28 Dose: 81 mg Atorvastatin Calcium (Lipitor) 10 mg PO DAILY ANTHONY PRN Reason: Protocol Last Admin: 03/16/17 09:04 Dose: 10 mg Budesonide (Pulmicort Respules) 0.5 mg IH [id number] ANTHONY PRN Reason: Protocol Last Admin: 03/17/17 07:43 Dose: 0.5 mg Carvedilol (Coreg) 25 mg PO 0800,1800 [facility] Last Admin: 03/17/17 08:27 Dose: 25 mg Ferrous Sulfate (Feosol) 324 mg PO 0800,1800 ANTHONY PRN Reason: Protocol Last Admin: 03/17/17 08:28 Dose: 324 mg Guaifenesin/Dextromethorphan (Mucinex-Dm 600-30 Mg) 1 tab PO BID ANTHONY PRN Reason: Protocol Last Admin: 03/16/17 18:05 Dose: 1 tab Hydromorphone HCl (Dilaudid) 1 mg IVP Q4H PRN PRN Reason: Pain, severe (8-10) Last Admin: 03/16/17 09:27 Dose: 1 mg Insulin Detemir (Levemir) 18 unit SC ACB ANTHONY PRN Reason: Protocol Last Admin: 03/17/17 06:31 Dose: Not Given Insulin Human Lispro (Humalog) 6 units SC AC [facility] PRN Reason: Protocol Last Admin: 03/17/17 06:30 Dose: Not Given Insulin Human Regular (Humulin R Med) 0 units SC ACHS [facility] PRN Reason: Protocol Last Admin: 03/17/17 06:30 Dose: Not Given Non-Formulary Medication (Dutasteride [Dutasteride]) 1 cap PO DAILY [facility] Last Admin: 03/16/17 09:03 Dose: 1 cap Ondansetron HCl (Zofran Inj) 4 mg IVP Q6H PRN; Protocol PRN Reason: Nausea/Vomiting Last Admin: 03/16/17 14:59 Dose: 4 mg Pantoprazole Sodium (Protonix Ec Tab) 40 mg PO 0630 [facility] PRN Reason: Protocol Last Admin: 03/17/17 06:31 Dose: 40 mg Prednisone (Prednisone Tab) 5 mg PO 0800 [facility] Last Admin: 03/17/17 08:29 Dose: 5 mg Sodium Bicarbonate (Sodium Bicarbonate Tab) 650 mg PO TID [facility] PRN Reason: Protocol Last Admin: 03/16/17 18:03 Dose: 650 mg Sucralfate (Carafate Oral Susp) 1 gm PO 0600,1600 [facility] Last Admin: 03/17/17 06:31 Dose: 1 gm Tamsulosin HCl (Flomax) 0.4 mg PO 1800 [facility] PRN Reason: Protocol Last Admin: 03/16/17 18:06 Dose: 0.4 mg Warfarin Sodium (Coumadin) 1 mg PO 1800 [facility] PRN Reason: Protocol Last Admin: 03/16/17 18:04 Dose: 1 mg - Labs Labs: 03/17/17 07:30 03/17/17 07:30 PT 21.7 Seconds (9.9-11.8) H 03/17/17 07:30 INR 2.01 (0.93-1.08) H 03/17/17 07:30 - Constitutional Appears: Non-toxic, No Acute Distress - Head Exam Head Exam: NORMAL INSPECTION - ENT Exam ENT Exam: Mucous Membranes Moist - Neck Exam Neck Exam: absent: Meningismus - Respiratory Exam Respiratory Exam: Decreased Breath Sounds - Cardiovascular Exam Cardiovascular Exam: +S1, +S2 - GI/Abdominal Exam GI & Abdominal Exam: Soft. absent: Tenderness Assessment and Plan - Assessment and Plan (Free Text) Plan: Assessment S/P sepsis due to right sided healthcare-associated pneumonia history of UTI with carbapenem-resistant Klebsiella history of ESBL-producing Klebsiella bacteremia, secondary to the port S/P removal S/P treatment for healthcare-associated pneumonia history of C diff associated diarrhea history of UTI with yeast history healthcare-associated pneumonia Severe cardiomyopathy with EF 10-15 % paroxysmal atrial fibrillation Coronary artery disease S/P stenting history of aortic aneurysm history of SVT S/P AICD placement S/P procedure on his prostate in 2012 S/P partial colectomy and colostomy Plan will monitor the patient off antibiotics since he is at risk for nosocomial infections while in the hospital
--- NOTE | 2017-03-17 16:26 | PN ---
DATE: 03/17/2017 LOCATION: The patient in room 322, bed 1. REASON FOR CONSULTATION AND FOLLOWUP: Coronary artery disease, AICD insertion, cardiomyopathy, EF 15% to 20%. SUBJECTIVE: The patient lying flat in bed without chest pain, shortness of breath or palpitations. PHYSICAL EXAMINATION: VITAL SIGNS: Blood pressure 111/78, respirations 18, pulse 97, temperature 98. HEENT: Head is normocephalic. Eyes: Pupils are normal. Conjunctivae slightly pale. NECK: JVP low. Carotids are equal. THORAX: AP diameter is normal. LUNGS: Clear. CARDIOVASCULAR: S1 and S2. ABDOMEN: Has colostomy in place. EXTREMITIES: No clubbing, no cyanosis. LABORATORY DATA: WBC 11.5, hemoglobin 10.4, hematocrit 32.9, and platelets 164. Sodium 142, potassium 4.6, BUN 99, and creatinine 2.8. AST, ALT, protein, and albumin normal. DIAGNOSES: Paroxysmal atrial fibrillation, coronary artery disease, status post angioplasty of left anterior descending artery, cardiomyopathy with ejection fraction of 15% to 20%, history of endovascular stent for abdominal aortic aneurysm, paroxysmal atrial fibrillation, deconditioning, sinus tachycardia, status post colostomy secondary to surgery for intestinal obstruction. The patient used to be on Primacor at home, but insurance refused to cover it anymore. Acute on chronic renal dysfunction, decompensated congestive heart failure due to acute on chronic left ventricular systolic dysfunction. PLAN: Continue Coreg. The patient's prothrombin time 21.7 and INR 2.01. Coreg 25 mg b.i.d., warfarin 1 mg daily, ferrous sulfate 324 mg p.o. b.i.d., insulin as ordered, Lipitor 10 mg daily, Protonix 40 mg daily, sodium bicarb 650 p.o. t.i.d. We will continue present therapy. We will follow. Arabella Lopez MD
== END 2017-03-17 13:55 | disposition home or self-care (01) | DRG 871 ==
LOC: TRCU 15:04
PROVIDERS: ADMIT Hospitalist; ATTEND Hospitalist
PROC: 3E03329 Introduction of Other Anti-infective into Peripheral Vein, Percutaneous Approach (ICD-10-PCS; 2017-03-09)
PROC: F07Z9ZZ Gait Training/Functional Ambulation Treatment (ICD-10-PCS; principal; 2017-03-11)
PROC: F07Z5FZ Bed Mobility Treatment using Assistive, Adaptive, Supportive or Protective Equipment (ICD-10-PCS; 2017-03-11)
PROC: F07Z8FZ Transfer Training Treatment using Assistive, Adaptive, Supportive or Protective Equipment (ICD-10-PCS; 2017-03-11)
PROC: F08Z1FZ Dressing Techniques Treatment using Assistive, Adaptive, Supportive or Protective Equipment (ICD-10-PCS; 2017-03-11)
DX: A41.9 Sepsis, unspecified organism (principal); J18.9 Pneumonia, unspecified organism; I50.23 Acute on chronic systolic (congestive) heart failure; J44.0 Chronic obstructive pulmonary disease with (acute) lower respiratory infection; N18.4 Chronic kidney disease, stage 4 (severe); E87.2 Acidosis; I13.0 Hypertensive heart and chronic kidney disease with heart failure and stage 1 through stage 4 chronic kidney disease, or unspecified chronic kidney disease; Z79.2 Long term (current) use of antibiotics; E11.22 Type 2 diabetes mellitus with diabetic chronic kidney disease; I48.0 Paroxysmal atrial fibrillation; E87.5 Hyperkalemia; N40.1 Benign prostatic hyperplasia with lower urinary tract symptoms; E78.5 Hyperlipidemia, unspecified; D50.9 Iron deficiency anemia, unspecified; I25.10 Atherosclerotic heart disease of native coronary artery without angina pectoris; D63.1 Anemia in chronic kidney disease; I48.2 Chronic atrial fibrillation; I25.5 Ischemic cardiomyopathy; K21.9 Gastro-esophageal reflux disease without esophagitis; Z92.3 Personal history of irradiation; Z95.810 Presence of automatic (implantable) cardiac defibrillator; Z86.73 Personal history of transient ischemic attack (TIA), and cerebral infarction without residual deficits; Z86.718 Personal history of other venous thrombosis and embolism; Z79.4 Long term (current) use of insulin; Z85.118 Personal history of other malignant neoplasm of bronchus and lung; Z87.891 Personal history of nicotine dependence; Z95.5 Presence of coronary angioplasty implant and graft; Z93.3 Colostomy status; Z86.79 Personal history of other diseases of the circulatory system

== ENCOUNTER 2017-04-10 22:14 | Inpatient (IN) | payer MEDICARE, MEDICAID ==
[2017-04-10 22:15] VITALS: PULSE 78
[2017-04-10 22:22] VITALS: BMI 26.8
--- NOTE | 2017-04-10 22:31 | ED PDOC ---
Arrival/HPI - General Time Seen by Provider: 04/10/17 22:17 Historian: Patient, Family - History of Present Illness Narrative History of Present Illness (Text): 04/10/17 22:26 [place] Weir is a 72 year old male, whose past medical history includes IDDM , CHF, AICD, hypertension, hyperlipidemia, CVA, chronic kidney disease, DVT, atrial fibrillation, COPD, lung cancer, and AAA s/p repair, who presents to the ED accompanied by family complaining of shortness of breath for the last few days. Family reports patient had nebulizer treatments at home with minimal relief. Patient denies any fever, chills, nausea, vomiting, headache, dizziness , or any other complaints. PMD: Dr. Palcaios Time/Duration: Other (yesterday) Symptom Onset: Gradual Symptom Course: Unchanged Activities at Onset: Light Context: Home Past Medical History - Provider Review Nursing Documentation Reviewed: Yes - Infectious Disease Hx of Infectious Diseases: None - Tetanus Immunization Tetanus Immunization: Unknown - Reproductive Currently : No - Cardiac Hx Peripheral Vascular Disease: Yes Other/Comment: AAA with repair. CABG, [place] - Pulmonary Hx Asthma: Yes Hx Emphysema: Yes - Neurological Hx Dizziness: Yes - HEENT Hx HEENT Disorder: Yes Hx Cataracts: Yes - Renal Hx Renal Disorder: Yes - Endocrine/Metabolic Hx Diabetes Mellitus Type 2: Yes - Hematological/Oncological Hx Blood Disorders: Yes Hx Anemia: Yes - Integumentary Hx Dermatological Disorder: No - Musculoskeletal/Rheumatological Hx Falls: Yes - Gastrointestinal Hx Gastrointestinal Disorders: Yes (LEOSTOMY. PARTIAL COLECTOMY.GERD,COLITIS,H/ O C DIFF) Other/Comment: bowel obstruction, colitis - Genitourinary/Gynecological Hx Prostate Problems: Yes (bph) Hx Reproductive Disorders: Yes (BPH) - Psychiatric Hx Substance Use: No - Surgical History Hx Abdominal Aortic Aneurysm Repair: Yes (complicated by endoleak) Other/Comment: Colostomy, R side - Anesthesia Hx Anesthesia: Yes - Suicidal Assessment Feels Threatened In Home Enviroment: No Family/Social History - Physician Review Nursing Documentation Reviewed: Yes Family/Social History: Unknown Family HX Smoking Status: Former Smoker Hx Alcohol Use: No Hx Substance Use: No Hx Substance Use Treatment: No Allergies/Home Meds Allergies/Adverse Reactions: Allergies No Known Allergies Allergy (Verified 03/09/17 19:01) Home Medications: Home Meds Medication Instructions Recorded Confirmed Multivitamin [Daily Vitamin 1 each PO DAILY 02/04/16 04/10/17 Formula] Furosemide [Lasix] 1 tab PO BID 09/10/16 04/10/17 Insulin Glargine, Recombina 14 units SQ HS 09/13/16 03/09/17 [Lantus] Insulin Lispro-LOW [humALOG LOW] See Protocol SQ ACHS 09/13/16 03/09/17 Sacubitril/Valsartan [Entresto 24 1 tab PO BID 09/13/16 04/10/17 mg-26 mg Tablet] Atorvastatin [Lipitor] 10 mg PO DAILY 11/16/16 04/10/17 Dutasteride 1 cap PO DAILY 11/16/16 04/10/17 Review of Systems - Physician Review All systems were reviewed & negative as marked: Yes - Review of Systems Constitutional: Normal. absent: Fevers Eyes: Normal ENT: Normal Respiratory: SOB. absent: Cough Cardiovascular: absent: Chest Pain Gastrointestinal: Normal. absent: Abdominal Pain, Diarrhea, Nausea, Vomiting Genitourinary Male: Normal. absent: Dysuria, Frequency, Hematuria, Urinary Output Changes Musculoskeletal: Normal. absent: Back Pain, Neck Pain Skin: Normal. absent: Rash Neurological: Normal. absent: Headache, Dizziness Endocrine: Normal Hemo/Lymphatic: Normal Psychiatric: Normal Physical Exam Vital Signs Reviewed: Yes Vital Signs Temp Pulse Resp BP Pulse Ox 04/11/17 01:07 98 H 100 04/11/17 00:28 95 H 18 124/85 98 04/11/17 00:27 124/85 04/10/17 23:26 98 H 21 129/96 H 100 04/10/17 22:30 32 H 04/10/17 22:19 98.1 F 107 H 18 119/90 98 Temperature: Afebrile Blood Pressure: Normal Pulse: Regular Respiratory Rate: Normal Appearance: Positive for: Well-Appearing, Non-Toxic, Comfortable Pain Distress: None Mental Status: Positive for: Alert and Oriented X 3 - Systems Exam Head: Present: Atraumatic, Normocephalic Pupils: Present: PERRL Extroacular Muscles: Present: EOMI Conjunctiva: Present: Normal Mouth: Present: Moist Mucous Membranes Neck: Present: Normal Range of Motion Respiratory/Chest: Present: Rhonchi (Rhonchi bilaterally). No: Respiratory Distress, Accessory Muscle Use Cardiovascular: Present: Regular Rate and Rhythm, Normal S1, S2. No: Murmurs Abdomen: Present: Normal Bowel Sounds. No: Tenderness, Distention, Peritoneal Signs Back: Present: Normal Inspection Upper Extremity: Present: Normal Inspection. No: Cyanosis, Edema Lower Extremity: Present: Edema (2+ pedal edema) Neurological: Present: GCS=15, CN II-XII Intact, Speech Normal Skin: Present: Warm, Dry, Normal Color. No: Rashes Psychiatric: Present: Alert, Oriented x 3, Normal Insight, Normal Concentration Medical Decision Making ED Course and Treatment: 04/10/17 22:26 Impression: 72 year old male c/o shortness of breath. Differential Diagnosis included but are not limited to: CHF vs. pneumonia vs. COPD vs. ACS Plan: -- EKG -- CXR -- Labs, cardiac enzymes, BNP -- Duoneb -- Reassess and disposition Prior Visits: Notes and results from previous visits were reviewed. On 03/05/2017, pt was seen in the ED for worsening shortness of breath and congestion. Pt was admitted to the hospital for further evaluation. Progress Notes: Reviewed EKG, NSR at 99 bpm. 1st degree AV block. Incomplete LBBB. Non-specific ST/T wave changes. 04/10/17 23:22 Reviewed radiology, CXR shows left lung infiltrate and increased pulmonary vascular congestion. 04/11/17 00:[address] Palacios, who is aware and agrees with plan. Accepts pt in to his service. Pt will be admitted to Telemetry for CHF. Requests Dr. Mathews on consult. - Lab Interpretations Lab Results: 04/10/17 23:15 04/10/17 23:15 Lab Results 04/10/17 23:15: WBC 3.7 L, RBC 3.57, Hgb 9.2 L, Hct 29.2 L, MCV 81.8, MCH 25.8, MCHC 31.5, RDW 18.0 H, Plt Count 249, MPV 10.1 04/10/17 23:15: PT 32.0 H*, INR 2.96 H, APTT 40.4 H 04/10/17 23:15: Sodium 136, Potassium 4.2, Chloride 106, Carbon Dioxide 19 L, Anion Gap 15, BUN 47 H, Creatinine 2.7 H, Est GFR ( Amer) 28, Est GFR ( Non-Af Amer) 23, Random Glucose 159 H, Calcium 8.2 L, Total Bilirubin 0.4, AST 30, ALT 31, Alkaline Phosphatase 99, Lactate Dehydrogenase 540, Total Creatine Kinase 69, Troponin I 0.02 D, NT-Pro-B Natriuret Pep 02859 H, Total Protein 6.3 , Albumin 3.3, Globulin 3.0, Albumin/Globulin Ratio 1.1 I have reviewed the lab results: Yes - RAD Interpretation Radiology Orders: 04/10/17 22:32 CHEST PORTABLE [RAD] Stat Prototype Engineer: ED Physician - EKG Interpretation Interpreted by ED Physician: Yes Type: 12 lead EKG - Medication Orders Current Medication Orders: Albuterol/Ipratropium (Duoneb 3 Mg/0.5 Mg (3 Ml) Ud) 3 ml IH Q4H PRN PRN Reason: Shortness of Breath Discontinued Medications Albuterol/Ipratropium (Duoneb 3 Mg/0.5 Mg (3 Ml) Ud) 3 ml IH ONCE STA Stop: 04/10/17 22:34 Last Admin: 04/10/17 22:55 Dose: 3 ml Albuterol/Ipratropium (Duoneb 3 Mg/0.5 Mg (3 Ml) Ud) Confirm Administered Dose 3 ml .ROUTE .STK-MED ONE Stop: 04/10/17 22:53 Last Admin: 04/10/17 23:10 Dose: 3 ml Furosemide (Lasix) 60 mg IVP ONCE ONE Stop: 04/11/17 00:16 Last Admin: 04/11/17 00:27 Dose: 60 mg MAR Blood Pressure Document 04/11/17 00:27 SC (Rec: 04/11/17 00:28 FL [id number]) Blood Pressure Blood Pressure (100/60-150/90 mm Hg) 124/85 IVP Administration Document 04/11/17 00:27 SC (Rec: 04/11/17 00:28 FL [id number]) Charges for Administration # of IVP Administrations 1 - Scribe Statement The provider has reviewed the documentation as recorded by the Scribe Rani Curran All medical record entries made by the Scribe were at my direction and personally dictated by me. I have reviewed the chart and agree that the record accurately reflects my personal performance of the history, physical exam, medical decision making, and the department course for this patient. I have also personally directed, reviewed, and agree with the discharge instructions and disposition. Disposition/Present on Arrival - Present on Arrival Any Indicators Present on Arrival: No History of DVT/PE: No History of Uncontrolled Diabetes: No Urinary Catheter: No History of Decub. Ulcer: No History Surgical Site Infection Following: None - Disposition Have Diagnosis and Disposition been Completed?: Yes Diagnosis: CHF (congestive heart failure) Disposition: HOSPITALIZED Disposition Time: 00:43 Patient Plan: Admission Patient Problems: Current Active Problems Problem Status Onset Congestive heart failure (CHF) Chronic Condition: STABLE Discharge Instructions (ExitCare): Heart Failure (ED)
[2017-04-10] MEDS ORDERED: Albuterol-Ipratrop 3 mg / 0.5 (3 ml) UD IH STA (22:33)
[2017-04-10] MEDS ORDERED: Albuterol-Ipratrop 3 mg / 0.5 (3 ml) UD ONE (22:52)
[2017-04-10 23:26] LABS: HEMATOCRIT 29.2 % (42.0-52.0); MEAN CELL VOLUME 81.8 fl (80.0-105.0); MEAN CORPUSCULAR HEMOGLOBIN 25.8 pg (25.0-35.0); MEAN CORPUSCULAR HGB CONC 31.5 g/dl (31.0-37.0); MEAN PLATELET VOLUME 10.1 fl (7.0-11.0); WHITE BLOOD COUNT 3.7 10^3/ul (4.5-11.0)
[2017-04-10 23:36] LABS: ALB/GLOB RATIO 1.1 (1.1-1.8); BILIRUBIN,TOTAL 0.4 mg/dL (0.2-1.3); CALCIUM 8.2 mg/dL (8.4-10.5); POTASSIUM 4.2 mmol/L (3.6-5.0); TOTAL PROTEIN 6.3 g/dL (5.8-8.3)
[2017-04-10 23:40] LABS: INR 2.96 (0.93-1.08); PARTIAL THROMBOPLASTIN TIME 40.4 Seconds (23.7-30.8)
[2017-04-10 23:48] LABS: TROPONIN I 0.02 ng/mL
[2017-04-11] MEDS ORDERED: DUTASTERIDE PO SCH (10:00)
[2017-04-11] MEDS ORDERED: VALSARTAN PO SCH (10:00)
[2017-04-11] MEDS ORDERED: SACUBITRIL PO SCH (10:00)
--- NOTE | 2017-04-11 10:20 | RAD ---
HISTORY: sob COMPARISON: Chest radiographs 03/07/2017. FINDINGS: LUNGS: Study appears somewhat underpenetrated however heterogeneous infiltrates are again identified in the mid left greater than right perihilar/basilar region. PLEURA: No pneumothorax or left pleural effusion. Minimal right pleural effusions not excluded. CARDIOVASCULAR: Pacemaker again identified. Pulmonary vascular pattern appears less prominent than previously shown. OSSEOUS STRUCTURES: No significant abnormalities. VISUALIZED UPPER ABDOMEN: Normal. OTHER FINDINGS: None. IMPRESSION: Heterogeneous infiltrates are appreciated increased at the left and potentially mildly increased at the mid to inferior right lung zones though underpenetration affects the appearance bilaterally. The right pleural effusion not excluded. Diminished vascular markings in the interval. Clinical correlation and radiographic follow-up are advised.
[2017-04-11] MEDS: Calcium-Vit D 250 mg-125 Units Tab UD PO SCH (12:15)
[2017-04-11] MEDS: Multivitamin Therapeutic Tab PO SCH (12:16)
[2017-04-11] MEDS: Insulin Detemir 100 units/ml Vial (Levemir) SC SCH ×2 (12:26→21:28)
[2017-04-11] MEDS: Insulin Reg-LOW-Coverage SC SCH ×3 (12:33→21:27)
[2017-04-11] MEDS: Milrinone 20mg/100ml D5W 100 ML IV PRN (13:40)
[2017-04-11] MEDS: Albuterol-Ipratrop 3 mg / 0.5 (3 ml) UD IH PRN (14:43)
[2017-04-11] MEDS ORDERED: Potassium Chloride 20 mEq ER Tab PO ONE (15:00)
--- NOTE | 2017-04-11 15:48 | CARD ---
APPROVED REPORT EKG Measurement Heart [id number] <Conclusion> Sinus rhythm with 1st degree AV block with premature atrial complexes with aberrant conduction Rightward axis Incomplete left bundle branch block Nonspecific T wave abnormality Prolonged QT Abnormal ECG
[2017-04-11] MEDS: Sucralfate 1 gm/10 ml Oral Susp UD PO SCH (16:37)
[2017-04-11] MEDS: SACUBITRIL PO SCH (17:20)
[2017-04-11] MEDS: VALSARTAN PO SCH (17:20)
[2017-04-11] MEDS ORDERED: INSULIN GLARGINE RECOMBINA 14 UNIT SQ SCH (22:00)
--- NOTE | 2017-04-12 02:40 | CON ---
REASON FOR CONSULTATION: Acute decompensated congestive heart failure, coronary artery disease, status post AICD, status post PTCA. BRIEF CLINICAL HISTORY: This is a 72-year-old male with past medical history significant for coronary artery disease; status post CABG and status post PTCA; cardiomyopathy, status post AICD; paroxysmal atrial fibrillation; CKD, status post colostomy, status post endovascular stent; multiple admissions with UTI and congestive heart failure; admitted with shortness of breath, , elevated BNP. PAST MEDICAL HISTORY: Significant for coronary artery disease, status post PTCA by Dr. Fransico Cabral. CMP, status post AICD. Paroxysmal atrial fibrillation, chronic kidney disease, status post colostomy, status post endovascular stent. History of CVA, history of BPH, history of multiple urinary tract infection, history of AAA, status post endovascular stent, ejection fraction 25%. Previous cardiac workup as follows, last ejection fraction 20%, AICD placed. The patient was on home milrinone, but because of insurance was discontinued. History of CVA, history of hyperlipidemia, CKD, atrial fibrillation, paroxysmal. Lung CA, status post radiation, but the patient is unaware of lung CA. History of multiple urinary tract infection in the past. History of ischemic colitis, status post right-sided hemicolectomy and ileostomy with rectal stump and colostomy bag. SOCIAL HISTORY: Denies any alcohol abuse in the past. The patient used to smoke in the past. REVIEW OF SYSTEMS: As per HPI. PHYSICAL EXAMINATION VITAL SIGNS: Temperature afebrile. Heart rate 60, blood pressure 130/80. HEENT: PERRLA. Extraocular muscles are intact. NECK: Supple. No carotid bruits, no thyromegaly. CHEST: Clear to auscultation. HEART: S1, S2 regular. ABDOMEN: Soft. EXTREMITIES: Clubbing, cyanosis negative. Colostomy bag noted in the anterior abdominal wall. LABORATORY DATA: EKG shows V-paced rhythm and underlying normal sinus. Blood workup as follows, WBC 3.7, hemoglobin 9.9, hematocrit 29.2, platelet count 241. Chemistry shows sodium 135, potassium 4.6, chloride 106, carbon dioxide 19, anion gap of 15, BUN 47, creatinine 2.7. IMPRESSION: Acute decompensated congestive heart failure, acute on chronic systolic dysfunction, stage 4 chronic kidney disease, creatinine clearance 20 mL, hypertension, hyperlipidemia, paroxysmal atrial fibrillation, AAA, status post endovascular stent, history of ischemic colitis, status post colostomy, ileostomy, rectal stump, history of lung cancer, status post radiation, last EF 15 to 20%. Status post AICD. Status post PTCA. RECOMMENDATIONS: We will start milrinone, continue Lasix, we will give one dose now, one at 5 p.m., and Lasix from tomorrow daily. We will follow. Thank you in taking care of the patient. Arabella Mathews MD
[2017-04-12] MEDS: Sucralfate 1 gm/10 ml Oral Susp UD PO SCH ×2 (06:20→17:39)
[2017-04-12 07:02] LABS: BASO # 0.01 K/mm3 (0.0-2.0); BASO % 0.2 % (0.0-3.0); EOS # 0.1 (0.0-0.7); EOS % 1.1 % (1.5-5.0); GRAN # 3.41 (1.4-6.5); GRAN % 74.7 % (50.0-68.0); HEMATOCRIT 30.2 % (42.0-52.0); LYMPH # 0.5 (1.2-3.4); LYMPH % 10.9 % (22.0-35.0); MEAN CELL VOLUME 82.1 fl (80.0-105.0); MEAN CORPUSCULAR HEMOGLOBIN 26.1 pg (25.0-35.0); MEAN CORPUSCULAR HGB CONC 31.8 g/dl (31.0-37.0); MEAN PLATELET VOLUME 10.1 fl (7.0-11.0); MONO # 0.6 (0.1-0.6); MONO % 13.1 % (1.0-6.0); RED CELL DISTRIBUTION WIDTH 17.9 % (11.5-14.5); WHITE BLOOD COUNT 4.6 10^3/ul (4.5-11.0)
[2017-04-12] MEDS: Albuterol-Ipratrop 3 mg / 0.5 (3 ml) UD IH PRN (07:40)
[2017-04-12 07:42] LABS: ALB/GLOB RATIO 1.1 (1.1-1.8); BILIRUBIN,TOTAL 0.5 mg/dL (0.2-1.3); CALCIUM 8.3 mg/dL (8.4-10.5); MAGNESIUM 1.8 mg/dL (1.7-2.2); PHOSPHOROUS 4.7 mg/dL (2.5-4.5); TOTAL PROTEIN 6.2 g/dL (5.8-8.3)
[2017-04-12] MEDS: Calcium-Vit D 250 mg-125 Units Tab UD PO SCH (09:06)
[2017-04-12] MEDS: Multivitamin Therapeutic Tab PO SCH (09:06)
[2017-04-12] MEDS: Milrinone 20mg/100ml D5W 100 ML IV PRN (09:13)
[2017-04-12] MEDS: SACUBITRIL PO SCH ×2 (09:15→17:41)
[2017-04-12] MEDS: VALSARTAN PO SCH ×2 (09:15→17:41)
[2017-04-12] MEDS: DUTASTERIDE 0.5 MG PO SCH (09:15)
[2017-04-12] MEDS: Insulin Reg-LOW-Coverage SC SCH ×4 (09:16→21:33)
[2017-04-12] MEDS: Insulin Detemir 100 units/ml Vial (Levemir) SC SCH ×2 (09:21→21:30)
--- NOTE | 2017-04-12 11:30 | IP.NPCORE ---
Heart Failure Core Measure - Heart Failure Ejection Fraction: Less Than 40 % Left Ventricular Function to be assessed after discharge: Yes PIETRO Inhibitor Prescribed: No Contraindication/Reason for not providing: renal insuff Beta-Yayo Prescribed: Carvedilol Angiotensin II Receptor Yayo Prescribed: No Contraindication/Reason for not providing: renal insuff AnticoagulationTherapy for Atrial Fibrillation/Atrialflutter: No Contraindication/Reason for not providing: n/a Hydralazine Nitrate Prescribed: No Implantable Cardioverter Defibrillator Therapy: Yes Cardiac Resynchronization Therapy Prescribed: Yes - Follow up Will be discharged to: Home Follow Up Date (must be within 7 days from discharge): 04/19/17 Follow Up Time: 09:00
--- NOTE | 2017-04-12 11:36 | PN ---
DATE: 04/12/2017 REASON FOR THE CONSULTATION: Followup acute decompensated congestive heart failure, coronary artery disease, status post AICD, status post PTCA, cardiomyopathy, acute on chronic systolic dysfunction, CHF secondary to acute on chronic systolic dysfunction. SUBJECTIVE: The patient denies any chest pain, wanted to go home, shortness of breath. OBJECTIVE: GENERAL: Lying flat in bed, not in apparent respiratory distress, yesterday the patient was wheezing, today he is lying comfortably. Examination as follows: VITAL SIGNS: Temperature afebrile, heart rate 74, blood pressure 121/74. HEENT: PERRLA. Extraocular muscles intact. NECK: Supple. No carotid bruit. No thyromegaly. CHEST: Clear to auscultation. HEART: S1 and S2 regular. ABDOMEN: Soft. EXTREMITIES: Clubbing and cyanosis negative. LABORATORY DATA: Blood workup as follows: WBC 4.6, hemoglobin 9.6, hematocrit 30.2, platelet count 269. Sodium 140, potassium 4, chloride 107, carbon dioxide 25, anion gap of 14, BUN 47, creatinine 2.6. BNP 20,200. IMPRESSION: Acute decompensated congestive heart failure, cardiomyopathy ischemic, history of coronary artery disease, status post percutaneous transluminal coronary angioplasty, last ejection fraction 15%, paroxysmal atrial fibrillation, history of ischemic bowel, ischemic colitis, status post colostomy, history of lung carcinoma status post radiation, history of right-sided hemicolectomy, ileostomy and rectal stump and colostomy. RECOMMENDATION: Started milrinone yesterday. The patient will get the benefit for 24 to 48 hours of milrinone. Continue IV Lasix. We will follow with you. Yesterday we gave two doses of Lasix, one in 2:00 and other one in 5:00 p.m. He feels better and will get extra dose of Lasix today at 5:00 p.m. and from tomorrow will continue one dose of Lasix and possibly will be able to go home in a day or two. Thank you Dr. Palacios for providing us the opportunity in taking care of the patient, [place]. We will give an extra dose of Lasix at 5:00 p.m. Mohammad Reid, MD
[2017-04-12] MEDS: Arformoterol 15 mcg/2 ml Inh Sol IH SCH (19:00)
[2017-04-12] MEDS: Budesonide 0.5 mg/2 ml Inhal Susp UD IH SCH (19:00)
[2017-04-12] MEDS ORDERED: Arformoterol 15 mcg/2 ml Inh Sol IH SCH (20:00)
[2017-04-13] MEDS: Sucralfate 1 gm/10 ml Oral Susp UD PO SCH ×2 (05:22→17:15)
[2017-04-13] MEDS: Milrinone 20mg/100ml D5W 100 ML IV PRN (07:44)
[2017-04-13 07:56] LABS: ALB/GLOB RATIO 0.9 (1.1-1.8); BILIRUBIN,TOTAL 0.6 mg/dL (0.2-1.3); CALCIUM 8.5 mg/dL (8.4-10.5); MAGNESIUM 1.7 mg/dL (1.7-2.2); POTASSIUM 3.9 mmol/L (3.6-5.0); TOTAL PROTEIN 6.2 g/dL (5.8-8.3)
[2017-04-13] MEDS: Budesonide 0.5 mg/2 ml Inhal Susp UD IH SCH ×2 (08:02→19:48)
[2017-04-13] MEDS: Arformoterol 15 mcg/2 ml Inh Sol IH SCH ×2 (08:02→19:47)
[2017-04-13] MEDS: Insulin Reg-LOW-Coverage SC SCH ×4 (08:26→21:46)
[2017-04-13] MEDS: SACUBITRIL PO SCH ×2 (11:24→18:11)
[2017-04-13] MEDS: VALSARTAN PO SCH ×2 (11:24→18:11)
[2017-04-13] MEDS: DUTASTERIDE 0.5 MG PO SCH (11:24)
[2017-04-13] MEDS: Insulin Detemir 100 units/ml Vial (Levemir) SC SCH ×2 (11:27→21:48)
[2017-04-13] MEDS: Multivitamin Therapeutic Tab PO SCH (11:27)
--- NOTE | 2017-04-13 11:29 | PN ---
DATE: 04/13/2017 REASON FOR THE CONSULTATION: Followup acute decompensated congestive heart failure, coronary artery disease, status post AICD, status post PTCA, ischemic cardiomyopathy, CHF secondary to acute on chronic systolic dysfunction. SUBJECTIVE: The patient denies any chest pain, shortness of breath, wanted to go home, some social issues. OBJECTIVE GENERAL: Lying flat in the bed, not in apparent distress. VITAL SIGNS: As follows, temperature afebrile, heart rate 90, blood pressure 119/71. HEENT: PERRLA. Extraocular muscles intact. NECK: Supple. No carotid bruits or thyromegaly. CHEST: Clear to auscultation. HEART: S1 and S2 regular. ABDOMEN: Soft. EXTREMITIES: Clubbing and cyanosis negative. LABORATORY DATA: Blood work as follows: WBC 4.6, hemoglobin 9.6, hematocrit 30.2, and platelet count 269. Chemistry shows sodium 140, potassium 3.9, chloride 105, carbon dioxide 26, anion gap of 13, BUN 42, and creatinine 2.7. IMPRESSION: Acute decompensated congestive heart failure, acute on chronic secondary to systolic dysfunction, cardiomyopathy, ischemic. The patient is unaware of history of cardiomyopathy, ejection fraction of 15%, paroxysmal atrial fibrillation, history of ischemic colitis, status post colostomy, ileostomy, history of lung carcinoma, status post radiation, history of right-sided hemicolectomy, history of rectal stump and colostomy, history of coronary artery disease, status post stent, history of automatic implantable cardioverter-defibrillator, and history of endovascular stent for abdominal aortic aneurysm. RECOMMENDATION: We will discontinue milrinone tomorrow at 7 o'clock. Continue Lasix and change the Lasix from tomorrow to p.o. Discharge planning for tomorrow. The patient wanted to go home. Arabella Mathews MD
[2017-04-13] MEDS: Calcium-Vit D 250 mg-125 Units Tab UD PO SCH (12:14)
[2017-04-13] MEDS: Levalbuterol 1.25 MG/3 ML Inhal Soln UD IH PRN (13:32)
--- NOTE | 2017-04-13 13:49 | RAD ---
HISTORY: f/u CHF COMPARISON: 04/10/2017 FINDINGS: LUNGS: The oval masslike opacity in the mid lung zone consistent with pulmonary neoplasm. No change appreciated here The right basal strandy densities cleared. PLEURA: No significant pleural effusion identified, no pneumothorax apparent. CARDIOVASCULAR: Cardiomegaly. Possible minimal central pulmonary vascular congestion -minimal right perihilar cuffing. Interval irregular opacity mid right lung zone -perhaps fissural pleural thickening under visual based pathology. Single pacemaker/AICD device in place OSSEOUS STRUCTURES: No significant abnormalities. VISUALIZED UPPER ABDOMEN: Normal. OTHER FINDINGS: None. IMPRESSION: Left mid lung zone mass similar-appearing Interval clearance/improved aeration right lung base. Oval nonspecific irregular opacity mid right lung zone and possible fissural inflammatory changes here. Minimal central pulmonary venous congestion probable -chronic element possible
--- NOTE | 2017-04-13 22:44 | CP.PCM.PN ---
Subjective - Date & Time of Evaluation Date of Evaluation: 04/13/17 Time of Evaluation: 22:44 - Subjective Subjective: Patient was seen at bedside because nurse told that he had 6 beats of VTACH on rhythm strip. Patient is asymptomatic. Medical record was reviewed. 72 year old male was admitted with sob, elevated BNP, CHF. PMH:CAD,AICD, S/P PTCA, S/P CABG, CMP, attial fibrillation, CKD, AAA, BPH, Multiple UTI, EF 25%. Objective - Vital Signs/Intake and Output Vital Signs (last 24 hours): Temp Pulse Resp BP Pulse Ox 98.2 F 106 H 16 126/82 96 04/13/17 12:00 04/13/17 18:00 04/13/17 12:00 04/13/17 17:15 04/13/17 00:01 Intake and Output: 04/13/17 04/14/17 18:59 06:59 Intake Total 100 Balance 100 - Medications Medications: Current Medications Arformoterol Tartrate (Brovana) 15 mcg IH [id number] [facility] Last Admin: 04/13/17 19:47 Dose: 15 mcg Aspirin (Ecotrin) 81 mg PO DAILY [facility] Last Admin: 04/13/17 11:26 Dose: 81 mg Atorvastatin Calcium (Lipitor) 10 mg PO DAILY [facility] Last Admin: 04/13/17 11:25 Dose: 10 mg Budesonide (Pulmicort Respules) 0.5 mg IH BIDRESP [facility] Last Admin: 04/13/17 19:48 Dose: 0.5 mg Calcium/Vitamin D (Oscal-D 250 Mg-125 Units Tab) 1 tab PO DAILY [facility] Last Admin: 04/13/17 12:14 Dose: 1 tab Carvedilol (Coreg) 25 mg PO 0800,1800 [facility] Last Admin: 04/13/17 17:15 Dose: 25 mg Ferrous Sulfate (Feosol) 324 mg PO BID [facility] Last Admin: 04/13/17 17:15 Dose: 324 mg Furosemide (Lasix) 40 mg IVP DAILY [facility] Stop: 04/13/17 23:59 Last Admin: 04/13/17 11:27 Dose: 40 mg Furosemide (Lasix) 40 mg PO 0800,1400 [facility] Milrinone Lactate/Dextrose (Primacor 20mg/100ml D5w) 100 mls @ 4.436 mls/hr IV .[id number] PRN; Protocol; 0.2 MCG/KG/MIN PRN Reason: TITRATE PER MD ORDER Stop: 04/14/17 06:00 Last Admin: 04/13/17 07:44 Dose: 0.2 mcg/kg/min, 4.436 mls/hr Insulin Detemir (Levemir) 7 unit SC Q12 [facility] Last Admin: 04/13/17 21:48 Dose: 7 unit Insulin Human Regular (Humulin R Low) 0 units SC ACHS ANTHONY PRN Reason: Protocol Last Admin: 04/13/17 21:46 Dose: Not Given Levalbuterol HCl (Xopenex) 1.25 mg IH [id number] PRN PRN Reason: Shortness of Breath Last Admin: 04/13/17 13:32 Dose: 1.25 mg Multivitamins (Thera Tab) 1 tab PO DAILY [facility] Last Admin: 04/13/17 11:27 Dose: 1 tab Sacubitril/Valsartan (Entresto 24 Mg-26 Mg) (Home Med) 1 tab PO BID [facility] Last Admin: 04/13/17 18:11 Dose: 1 tab Dutasteride 0.5mg ((Home Med)) 1 cap PO DAILY [facility] Last Admin: 04/13/17 11:24 Dose: 1 cap Pantoprazole Sodium (Protonix Inj) 40 mg IVP DAILY [facility] Last Admin: 04/13/17 11:27 Dose: 40 mg Sucralfate (Carafate Oral Susp) 1 gm PO 0600,1600 [facility] Last Admin: 04/13/17 17:15 Dose: 1 gm Tamsulosin HCl (Flomax) 0.4 mg PO DAILY [facility] Last Admin: 04/13/17 11:25 Dose: 0.4 mg Warfarin Sodium (Coumadin) 1 mg PO 1800 ANTHONY PRN Reason: Protocol Last Admin: 04/13/17 17:15 Dose: 1 mg - Labs Labs: 04/12/17 06:55 04/13/17 07:30 PT 32.0 Seconds (9.9-11.8) H* 04/10/17 23:15 INR 2.96 (0.93-1.08) H 04/10/17 23:15 APTT 40.4 Seconds (23.7-30.8) H 04/10/17 23:15 Laboratory Last Values WBC 4.6 10^3/ul (4.5-11.0) D 04/12/17 06:55 RBC 3.68 10^6/uL (3.5-6.1) 04/12/17 06:55 Hgb 9.6 g/dL (14.0-18.0) L 04/12/17 06:55 Hct 30.2 % (42.0-52.0) L 04/12/17 06:55 MCV 82.1 fl (80.0-105.0) 04/12/17 06:55 MCH 26.1 pg (25.0-35.0) 04/12/17 06:55 MCHC 31.8 g/dl (31.0-37.0) 04/12/17 06:55 RDW 17.9 % (11.5-14.5) H 04/12/17 06:55 Plt Count 269 10^3/uL (120.0-450.0) 04/12/17 06:55 MPV 10.1 fl (7.0-11.0) 04/12/17 06:55 Gran % 74.7 % (50.0-68.0) H 04/12/17 06:55 Lymph % (Auto) 10.9 % (22.0-35.0) L 04/12/17 06:55 [place] % (Auto) 13.1 % (1.0-6.0) H 04/12/17 06:55 Eos % (Auto) 1.1 % (1.5-5.0) L 04/12/17 06:55 Baso % (Auto) 0.2 % (0.0-3.0) 04/12/17 06:55 Gran # 3.41 (1.4-6.5) 04/12/17 06:55 Lymph # 0.5 (1.2-3.4) L 04/12/17 06:55 [place] # 0.6 (0.1-0.6) 04/12/17 06:55 Eos # 0.1 (0.0-0.7) 04/12/17 06:55 Baso # 0.01 K/mm3 (0.0-2.0) 04/12/17 06:55 PT 32.0 Seconds (9.9-11.8) H* 04/10/17 23:15 INR 2.96 (0.93-1.08) H 04/10/17 23:15 APTT 40.4 Seconds (23.7-30.8) H 04/10/17 23:15 Sodium 140 mmol/L (132-148) 04/13/17 07:30 Potassium 3.9 mmol/L (3.6-5.0) 04/13/17 07:30 Chloride 105 mmol/L (95-110) 04/13/17 07:30 Carbon Dioxide 26 mmol/L (21-33) 04/13/17 07:30 Anion Gap 13 (10-20) 04/13/17 07:30 BUN 42 mg/dL (7-21) H 04/13/17 07:30 Creatinine 2.7 mg/dL (0.5-1.4) H 04/13/17 07:30 Est GFR ( Amer) 28 04/13/17 07:30 Est GFR (Non-Af Amer) 23 04/13/17 07:30 POC Glucose (mg/dL) 203 mg/dL (65-110) H 04/13/17 20:56 Random Glucose 63 mg/dL (70-110) L 04/13/17 07:30 Calcium 8.5 mg/dL (8.4-10.5) 04/13/17 07:30 Phosphorus 4.7 mg/dL (2.5-4.5) H 04/12/17 06:55 Magnesium 1.7 mg/dL (1.7-2.2) 04/13/17 07:30 Total Bilirubin 0.6 mg/dL (0.2-1.3) 04/13/17 07:30 AST 25 U/L (17-59) 04/13/17 07:30 ALT 31 U/L (7-56) 04/13/17 07:30 Alkaline Phosphatase 90 U/L (38-126) 04/13/17 07:30 Lactate Dehydrogenase 540 U/L (333-699) 04/10/17 23:15 Total Creatine Kinase 69 U/L (35-230) 04/10/17 23:15 Troponin I 0.02 ng/mL D 04/10/17 23:15 NT-Pro-B Natriuret Pep 99698 pg/mL (0-450) H 04/12/17 06:55 Total Protein 6.2 g/dL (5.8-8.3) 04/13/17 07:30 Albumin 3.0 g/dL (3.0-4.8) 04/13/17 07:30 Globulin 3.2 gm/dL 04/13/17 07:30 Albumin/Globulin Ratio 0.9 (1.1-1.8) L 04/13/17 07:30 TSH 3rd Generation 1.09 mIU/mL (0.46-4.68) 04/12/17 06:55 - Constitutional Appears: Well, No Acute Distress - Head Exam Head Exam: ATRAUMATIC, NORMAL INSPECTION, NORMOCEPHALIC - Eye Exam Eye Exam: Normal appearance - ENT Exam ENT Exam: Normal External Ear Exam - Neck Exam Neck Exam: Normal Inspection - Respiratory Exam Respiratory Exam: NORMAL BREATHING PATTERN - Cardiovascular Exam Cardiovascular Exam: REGULAR RHYTHM. absent: JVD - GI/Abdominal Exam GI & Abdominal Exam: absent: Distended - Rectal Exam Rectal Exam: Deferred - Exam Additional comments: Deferred. - Extremities Exam Extremities Exam: Normal Inspection - Back Exam Back Exam: NORMAL INSPECTION - Neurological Exam Neurological Exam: Alert, Oriented x3 - Psychiatric Exam Psychiatric exam: Normal Affect, Normal Mood - Skin Skin Exam: Normal Color Assessment and Plan - Assessment and Plan (Free Text) Assessment: Non sustained ventricular tachycardia.-May be from milrinone. R/O Electrolyte imbalance. R/O MN. CHF. CMP. CAD. CKD. AICD. Hx Atrial fibrillation. BPH. Plan: BMP. Magnesium. Phosphorous. EKG. :>No acute changes. Troponin.----->0.03 Monitor. Continue present management.
[2017-04-13 23:19] LABS: CALCIUM 7.8 mg/dL (8.4-10.5); MAGNESIUM 1.7 mg/dL (1.7-2.2); PHOSPHOROUS 4.3 mg/dL (2.5-4.5); POTASSIUM 4.2 mmol/L (3.6-5.0)
[2017-04-13 23:31] LABS: TROPONIN I 0.03 ng/mL
[2017-04-14] MEDS: Sucralfate 1 gm/10 ml Oral Susp UD PO SCH ×2 (05:38→17:12)
[2017-04-14] MEDS: Budesonide 0.5 mg/2 ml Inhal Susp UD IH SCH ×2 (08:03→20:16)
[2017-04-14] MEDS: Arformoterol 15 mcg/2 ml Inh Sol IH SCH ×2 (08:03→20:16)
[2017-04-14] MEDS: Insulin Reg-LOW-Coverage SC SCH ×4 (08:33→22:00)
[2017-04-14 08:52] LABS: BILIRUBIN,TOTAL 0.5 mg/dL (0.2-1.3); CALCIUM 8.3 mg/dL (8.4-10.5); MAGNESIUM 1.7 mg/dL (1.7-2.2); TOTAL PROTEIN 6.3 g/dL (5.8-8.3)
[2017-04-14] MEDS: Multivitamin Therapeutic Tab PO SCH (09:02)
[2017-04-14] MEDS: Calcium-Vit D 250 mg-125 Units Tab UD PO SCH (09:03)
--- NOTE | 2017-04-14 09:04 | CARD ---
APPROVED REPORT EKG Measurement Heart [id number] <Conclusion> Sinus tachycardia with 1st degree AV block with occasional premature ventricular complexes Low voltage QRS limb leads T wave abnormality, consider inferolateral ischemia Prolonged QTc No change
[2017-04-14] MEDS: DUTASTERIDE 0.5 MG PO SCH (09:05)
[2017-04-14] MEDS: Insulin Detemir 100 units/ml Vial (Levemir) SC SCH ×2 (09:06→22:40)
[2017-04-14] MEDS: SACUBITRIL PO SCH ×2 (09:06→17:15)
[2017-04-14] MEDS: VALSARTAN PO SCH ×2 (09:06→17:15)
--- NOTE | 2017-04-14 12:55 | PN ---
DATE: 04/12/2017 SUBJECTIVE: The patient seems doing better, less short of breath, less cough, no nausea, no vomiting and no fever. The patient seen by cardiology, Dr. Mathews. PHYSICAL EXAMINATION: As follows: VITAL SIGNS: Temperature 97.4, heart rate 87, blood pressure is 119/71 and repeated 101/66, and saturation 100% on 2 L nasal cannula. HEAD AND NECK: Normal. No JVD. No thyromegaly. CHEST EXAM: Clear. Good air entry. CARDIAC: First sound and second sound normal. Systolic murmur across the precordium. ABDOMEN: Soft and nontender. Colostomy bag is clean. EXTREMITIES: Revealed mild edema above the ankle. NEUROLOGIC EXAM: Moving all extremities, right hemiparesis. LABORATORY STUDIES: As follows; sodium 142, potassium 4, chloride 107, bicarb 25, BUN 47, creatinine 2.06. Liver function test is normal. Calcium and phosphorous are normal. IMPRESSION AND PLAN: 1. Acute congestive heart failure and acute systolic heart failure on top of chronic systolic heart failure. Continue IV Lasix, considering milrinone IV infusion and discussed with cardiology, Dr. Mathews. Continue oxygen. Continue current treatment. 2. Chronic atrial fibrillation, coronary artery disease, ischemic cardiomyopathy, hypertension. Resume meds. Follow up clinically. 3. Insulin-dependant diabetes. Continue insulin as prescribed, continue insulin coverage, stable in 150s-180s blood sugar. 4. Lung carcinoma, status post radiation; history of chronic obstructive pulmonary disease. Continue inhaled bronchodilators, Brovana, Xopenex, and Pulmicort. Continue nebulizer treatment. We will follow up clinically. The patient seems otherwise stable. Continue current medications. Dexter Palacios MD
--- NOTE | 2017-04-14 13:10 | PN ---
DATE: 04/13/2017 SUBJECTIVE: The patient seems doing better, clinically improving, on IV milrinone for his ischemic cardiomyopathy and CHF symptoms, seems improving, feeling better, IV Lasix. The patient clinically stable. PHYSICAL EXAMINATION: VITAL SIGNS: Temperature 97, heart rate 83, blood pressure is 143/83, saturation 100% of 2 L. HEAD AND NECK: Normal. No JVD. No thyromegaly. CHEST EXAM: Clear. Good air entry. CARDIAC: First sound and second sound normal. Systolic murmur across the precordium. ABDOMEN: Soft and nontender. Colostomy bag is noted, clean. EXTREMITIES: Bilateral mild edema. NEUROLOGICALLY: Normal. LABORATORY STUDIES: As follows; sodium 135, potassium 4.2, chloride 102, bicarb 26, BUN 45, creatinine 2.5, blood sugar 117, calcium 7.8. Phosphorous 4.3. Magnesium 1.7. Troponin 0.03. IMPRESSION AND PLAN: 1. Acute systolic heart failure. Continue IV Lasix. Continue IV milrinone. Continue Entresto. The patient seems doing better. Continue current therapy. 2. Lung carcinoma, chronic obstructive pulmonary disease. Continue inhaled bronchodilators, oxygen. The patient currently getting Brovana, Pulmicort, Xopenex, and doing well. 3. Diabetes. Continue insulin coverage, Levemir. She is doing better. 4. Colostomy, history of abdominal aortic aneurysm surgery, right hemiparesis, hypertension. Continue current therapy. Continue IV milrinone. Discussed with Dr. Mathews. Cannot get him IV milrinone infusion as there is a family discussion. Also, we will get a chest x-ray in the morning. The patient seems hemodynamically stable. Dexter Palacios MD
[2017-04-14] MEDS: Levalbuterol 1.25 MG/3 ML Inhal Soln UD IH PRN (15:39)
--- NOTE | 2017-04-14 15:50 | PN ---
DATE: 04/14/2017 REASON FOR THE CONSULTATION: Followup acute decompensated congestive heart failure, coronary artery disease, status post AICD, status post PTCA, ischemic cardiomyopathy, CHF secondary to acute on chronic systolic dysfunction. SUBJECTIVE: The patient denies any chest pain, shortness of breath or any palpitation. OBJECTIVE/PHYSICAL EXAMINATION: As follows: GENERAL: Lying flat in the bed, not in apparent distress. VITAL SIGNS: Temperature is afebrile, heart rate is 89, and blood pressure is 126/80. HEENT: PERRLA. Extraocular muscles are intact. NECK: Supple. No carotid bruits or thyromegaly. CHEST: Clear to auscultation. HEART: S1 and S2 regular. ABDOMEN: Soft. EXTREMITIES: Clubbing and cyanosis negative. LABORATORY DATA: Blood work as follows: WBC of 4.6, hemoglobin of , hematocrit of 30.2, and platelet count of 296. Chemistry shows sodium of 130, potassium of 4, chloride of 104, carbon dioxide of 26, anion gap of , BUN of 41, and creatinine of 2.6. Total protein of 6.3, albumin of 3.0 and albumin globulin ratio 1. IMPRESSION: Acute decompensated congestive heart failure, acute on chronic secondary to systolic dysfunction, ischemic cardiomyopathy, ejection fraction of 15%, paroxysmal atrial fibrillation, history of colitis, status post colostomy and ileostomy, history of lung cancer, status post radiation, (the patient is unaware of the lung cancer). Family knows history of right hemicolectomy, history of rectal stump and colostomy, history of coronary artery disease, status post stent in left anterior descending, history of automatic implantable cardioverter-defibrillator, and history of endovascular stent for AAA (abdominal aortic aneurysm). RECOMMENDATIONS: Milrinone was discontinued tomorrow at 7:00. Lasix was change to p.o. The patient is okay to be discharged. We will follow the lab. Today, the patient did not allow the blood to be drawn, so requested to have a blood work up done today if the patient agrees. Discussed with the patient, the patient agreed. We will get the blood workup. If remained stable, will be possible discharged today. Thank you Dr. Palacios for providing us the opportunity in [facility]. Arabella Mathews MD cc: Dexter Palacios MD
--- NOTE | 2017-04-14 17:59 | HP ---
MAIN REASON FOR ADMISSION: Short of breath. HISTORY OF PRESENT ILLNESS: This 72-year-old man with ischemic cardiomyopathy, hypertension, diabetes insulin-dependent, multiple surgeries, came in with short of breath. The patient does have a history of congestive heart failure in the past. His noticed he is getting short of breath, his leg getting swelling, and that seems getting worse over the last few days. The patient came to the ER. In the emergency room, found to be in congestive heart failure. Denied any chest pain. Denied any fever, chills, any nausea, vomiting or fever. PAST MEDICAL HISTORY: As I mentioned, ischemic cardiomyopathy with an ejection fraction less than 50%, hypertension, high cholesterol, abdominal aortic aneurysm surgery, has a colostomy bag, generalized weakness, stroke with right hemiparesis, wheelchair-bound, congestive heart failure with recurrent urinary tract infections, insulin-dependent diabetes, chronic atrial fibrillations. ALLERGIES: NO KNOWN ALLERGIES. SOCIAL HISTORY: Does not smoke. He lives with his , very supportive. FAMILY HISTORY: Otherwise noncontributory. REVIEW OF SYSTEMS: As in the present illness. HOME MEDICATIONS: He takes a lot of medicines. He takes insulin, Humalog. He takes also Lantus 15 units at bedtime, Coumadin 1 mg daily, Flomax, Carafate. He is taking also Entresto 24 mg-26 mg tablets, 1 tablet b.i.d., multivitamins, Lasix b.i.d., Tylenol, Colace, Coreg 25 mg b.i.d., Os-Brett, vitamin E, Lipitor 10 and aspirin 81. PHYSICAL EXAMINATION: GENERAL: The patient came in the hospital on 04/11/2017. VITAL SIGNS: The patient is afebrile, heart rate 83, blood pressure 126/77 HEAD AND NECK: Normal. No JVD. No thyromegaly. CHEST: A few basilar rales, otherwise clear. CARDIAC: First sound and second sound normal. Systolic murmur. ABDOMEN: Soft. Colostomy bag seems stable, clean. EXTREMITIES: Mild edema bilaterally. NEUROLOGICALLY: He is moving all extremities, right-sided weakness. LABORATORY DATA: His white count 3.7, hemoglobin 9.2, hematocrit 29.2, platelets 249. Chemistry: Sodium 142, potassium 4, chloride 107, bicarbonate 25, BUN 47, creatinine 2.6. Blood sugar 177. Liver enzymes is normal. His BNP is 20,200. The patient when he came in, he had a chest x-ray, which reported as there are infiltrates in the mid left greater than the right perihilar regions diminished vascular markings. In the interval, correlate followup recommended. IMPRESSION: We will admit the patient with: 1. This is a [id number] with ischemic cardiomyopathy, has history of lung cancer on the left lung, has history of radiation, came in with short of breath, edema of lower extremity, seemed to be responding well to IV Lasix. We will admit the patient with acute congestive heart failure, acute systolic failure on top of chronic systolic failure. Continue IV Lasix, continue oxygen, nebulizer treatment. We will get back to cardiology, Dr. Mathews to follow up. The patient is clinically stable and we will continue current management. 2. Lung cancer, chronic obstructive pulmonary disease, continue nebulizers. 3. Diabetes, resume insulin. 4. Chronic atrial fibrillation. Continue Coumadin. PLAN: Continue current treatment. We will follow up clinically. Dexter Palacios MD
[2017-04-14] MEDS ORDERED: MethylPREDNISolone 40 mg Vial IVP STA (18:26)
[2017-04-14] MEDS: MethylPREDNISolone 40 mg Vial IVP SCH (22:40)
[2017-04-15] MEDS: Sucralfate 1 gm/10 ml Oral Susp UD PO SCH (05:43)
--- NOTE | 2017-04-15 06:13 | CON ---
PULMONARY CONSULT DATE: 04/14/2017 REFERRING PHYSICIAN: Dexter Palacios MD REASON FOR THE CONSULT: Chronic lung disease, lung cancer, cardiomyopathy, and may have sleep apnea syndrome. HISTORY OF PRESENT ILLNESS: This is a 72 years old gentleman who had severe cardiomyopathy, hypertension, diabetes, and history of lung cancer admitted with shortness of breath and cough. No hemoptysis, hematemesis, or hematuria. No diarrhea reported. Seen by cardiology, being on diuretics. Also suppose to get sleep study as the outpatient, could not make it to the sleep center. PAST MEDICAL HISTORY: As per history of present illness. ALLERGIES: NONE KNOWN. SOCIAL HISTORY: Nonsmoker and nondrinker. FAMILY HISTORY: No significant cardiopulmonary disease reported. MEDICATIONS: He is on Brovana inhaler twice a day, Carafate 1 g twice a day, Coreg 25 mg twice a day, Coumadin 1 mg will be given tonight, doxycycline 100 mg twice a day, dutasteride 0.5 mg daily, Ecotrin 81 mg daily, ferrous sulfate 325 mg twice a day, Flomax 0.4 mg daily, insulin coverage, Lasix 40 mg twice a day, Levemir 7 units subcutaneously q.12 hours, Lipitor 10 mg daily, calcium plus vitamin D one tab daily, Protonix 40 mg daily, Pulmicort inhaler twice a day, Entresto one tab twice a day, Solu-Medrol 20 mg q.12 hours, multivitamins, and Xopenex inhaler q.6 hour p.r.n. REVIEW OF SYSTEMS: No headache. No rhinitis. Has some cough, clear sputum. Short of breath. No chest pain. No nausea. No vomiting. No diarrhea. Does have a leg swelling. PHYSICAL EXAMINATION: GENERAL: Lying in the bed, no acute distress. VITAL SIGNS: Temperature is 98, heart rate is 98, respiratory rate is 20, blood pressure is 121/74, and pulse oximetry is 95% on nasal cannula. HEENT: Moist mucous membrane. Crowded airway. Mallampati score is IV. NECK: Supple. No JVD. LUNGS: Scattered rhonchi, few wheezing. HEART: S1 and S2. ABDOMEN: Soft and nontender. No organomegaly. EXTREMITIES: There is no edema. NEUROLOGICAL: Awake and alert. Follows simple commands. LABORATORY DATA: Shows hemoglobin 9.6, hematocrit 30.2, WBC 4.6, and platelet is 269. Sodium 138, potassium 4.0, chloride 104, bicarbonate 26, BUN 46, and creatinine 2.6. Glucose 237, calcium 8.3, and magnesium 1.7. AST 25, ALT 23, alk phos 86, troponin 0.03, and albumin is 3.1. Chest x-ray shows left mid lung zone mass similar appearing than before interval clearance and improved aeration in the right lung base. There is also irregular opacity mid right lung zone. Having some congestion. IMPRESSION AND PLAN: Cardiomyopathy, chronic lung disease, lung cancer, atrial fibrillation, history of colostomy and ileostomy, been on radiation therapy, also have automatic implantable cardioverter-defibrillator, and aortic aneurysm. Overall poor prognosis. We will continue supportive care. 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 I did speak to the if we can try using continuous positive airway pressure while he is in the hospital. Follow up labs in the morning. Thank you and we will follow with you. Arabella Alva MD
[2017-04-15 07:03] VITALS: RESP 19; TEMP 97.9; O2SAT 99
[2017-04-15 07:06] VITALS: PULSE 99
[2017-04-15] MEDS: Arformoterol 15 mcg/2 ml Inh Sol IH SCH (07:19)
[2017-04-15] MEDS: Budesonide 0.5 mg/2 ml Inhal Susp UD IH SCH (07:19)
[2017-04-15 07:23] LABS: INR 2.15 (0.93-1.08)
[2017-04-15 07:35] LABS: POTASSIUM 4.9 mmol/L (3.6-5.0)
[2017-04-15] MEDS: Insulin Reg-LOW-Coverage SC SCH ×3 (07:35→17:08)
[2017-04-15 07:36] LABS: ALB/GLOB RATIO 1.1 (1.1-1.8); BILIRUBIN,TOTAL 0.6 mg/dL (0.2-1.3); CALCIUM 8.7 mg/dL (8.4-10.5); MAGNESIUM 1.7 mg/dL (1.7-2.2); PHOSPHOROUS 4.9 mg/dL (2.5-4.5); TOTAL PROTEIN 7.3 g/dL (5.8-8.3)
[2017-04-15 07:38] LABS: GRAN # 3.19 (1.4-6.5); GRAN % 90.6 % (50.0-68.0); HEMATOCRIT 35.9 % (42.0-52.0); LYMPH # 0.3 (1.2-3.4); MEAN CORPUSCULAR HEMOGLOBIN 26.7 pg (25.0-35.0); MEAN CORPUSCULAR HGB CONC 32.6 g/dl (31.0-37.0); MEAN PLATELET VOLUME 10.7 fl (7.0-11.0); MONO # 0.1 (0.1-0.6); MONO % 1.4 % (1.0-6.0); PLATELET COUNT 302 10^3/uL (120.0-450.0); RED CELL DISTRIBUTION WIDTH 17.7 % (11.5-14.5); WHITE BLOOD COUNT 3.5 10^3/ul (4.5-11.0)
[2017-04-15 08:01] LABS: NEUTROPHIL 95 % (50.0-70.0)
[2017-04-15] MEDS: Multivitamin Therapeutic Tab PO SCH (10:15)
[2017-04-15] MEDS: Calcium-Vit D 250 mg-125 Units Tab UD PO SCH (10:15)
[2017-04-15] MEDS: MethylPREDNISolone 40 mg Vial IVP SCH (10:17)
[2017-04-15] MEDS: DUTASTERIDE 0.5 MG PO SCH (10:18)
[2017-04-15] MEDS: SACUBITRIL PO SCH (10:18)
[2017-04-15] MEDS: VALSARTAN PO SCH (10:18)
[2017-04-15] MEDS: Insulin Detemir 100 units/ml Vial (Levemir) SC SCH (10:19)
[2017-04-15] MEDS: Levalbuterol 1.25 MG/3 ML Inhal Soln UD IH PRN (11:19)
--- NOTE | 2017-04-15 14:14 | PN ---
DATE: 04/15/2017 REASON FOR THE CONSULTATION: Followup decompensated congestive heart failure, acute on chronic systolic dysfunction, cardiomyopathy, coronary artery disease. SUBJECTIVE: The patient lying on the bed. He denies any chest pain, wanted to go home. PHYSICAL EXAMINATION: As follows: VITAL SIGNS: Temperature afebrile, heart rate 99, blood pressure 130/87. HEENT: PERRLA. Extraocular muscles intact. NECK: Supple. No carotid bruits or thyromegaly. CHEST: Clear to auscultation. HEART: S1 and S2 regular. ABDOMEN: Soft. EXTREMITIES: Clubbing and cyanosis negative. LABORATORY DATA: Blood workup as follows; WBC 3.5, hemoglobin 11.7, hematocrit 35.9, and platelet count 302. Chemistry shows sodium 130, potassium 4.9, chloride 101, carbon dioxide 20, anion gap of 21, creatinine 2.5. IMPRESSION: Decompensated congestive heart failure, acute on chronic systolic dysfunction, renal insufficiency, cardiomyopathy, ischemic, status post percutaneous transluminal coronary angioplasty, history of acute ischemic bowel status post colostomy and rectal stump, history of endovascular repair for abdominal aortic aneurysm, history of lung carcinoma status post radiation. RECOMMENDATION: Continue Coreg, continue aspirin, continue ferrous sulfate, continue Flomax, continue Lasix p.o. daily, we will discontinue telemetry. CVA status is stable. The patient was at one point on milrinone, but insurance did not approve it, so the patient is off milrinone at home. Thank you Dr. Palacios for providing us the opportunity in taking care of the patient, [place]. Arabella Mathews MD
[2017-04-15 15:09] VITALS: BP 118/75
--- NOTE | 2017-04-15 21:04 | PN ---
PULMONARY PROGRESS NOTE DATE: 04/15/2017 REFERRING PHYSICIAN: Dr. Dexter Palacios SUBJECTIVE: He is lying in the bed, head at 45 degrees, feels okay. The patient denies cough. No sputum production. No hemoptysis, hematemesis or hematuria. No diarrhea reported. PHYSICAL EXAMINATION: GENERAL: No acute distress. VITAL SIGNS: Temperature is 98, heart rate 99, respiratory rate is 20, blood pressure 118/75 and pulse oximetry 99% on nasal cannula. HEENT: Moist mucous membrane. Crowded airway. NECK: Supple. No JVD. LUNGS: Has fair airflow with few rhonchi. HEART: S1 and S2. ABDOMEN: Soft and nontender. No organomegaly. EXTREMITIES: Has no edema. NEUROLOGIC: Awake, alert and follows simple commands. LABORATORY DATA: Reviewed shows hemoglobin 11.7, hematocrit 35.9, WBC 3.5 and platelets 302. INR 2.15. Sodium 137, potassium 4.9, chloride 101, bicarbonate 20, BUN 46, creatinine 2.5, glucose 253, calcium 8.7 and phosphorous 4.9. AST 34, ALT 28, alk phos is 107 and albumin is 3.8. MEDICATIONS: Reviewed, unknown. New changes in medication reported since yesterday. IMPRESSION AND PLAN: Cardiomyopathy, chronic obstructive lung disease, lung cancer, atrial fibrillation, history of colostomy, ileostomy, history of radiation therapy, automatic implantable cardioverter-defibrillator, aortic aneurysm and severe cardiomyopathy. I spoke to the patient's at bedside, all the questions answered. Keep head elevated at 45 degrees, bronchodilator, recommend sleep study as an outpatient. Gastric prophylaxis. Anticoagulation. Thank you. We will follow with you. Arabella Alva MD
== END 2017-04-15 18:31 | DRG 291 ==
LOC: ED 22:14 → ERH 04-11 01:25 → 2RSO 04-11 03:36
PROVIDERS: ADMIT Internal Medicine; ATTEND Internal Medicine
PROC: 3E0F7GC Introduction of Other Therapeutic Substance into Respiratory Tract, Via Natural or Artificial Opening (ICD-10-PCS; principal; 2017-04-11)
DX: I13.0 Hypertensive heart and chronic kidney disease with heart failure and stage 1 through stage 4 chronic kidney disease, or unspecified chronic kidney disease (principal); I50.23 Acute on chronic systolic (congestive) heart failure; I47.2 Ventricular tachycardia; N18.4 Chronic kidney disease, stage 4 (severe); E11.22 Type 2 diabetes mellitus with diabetic chronic kidney disease; I69.351 Hemiplegia and hemiparesis following cerebral infarction affecting right dominant side; J44.9 Chronic obstructive pulmonary disease, unspecified; C34.90 Malignant neoplasm of unspecified part of unspecified bronchus or lung; I48.0 Paroxysmal atrial fibrillation; E78.5 Hyperlipidemia, unspecified; I25.10 Atherosclerotic heart disease of native coronary artery without angina pectoris; N40.0 Benign prostatic hyperplasia without lower urinary tract symptoms; K21.9 Gastro-esophageal reflux disease without esophagitis; I25.5 Ischemic cardiomyopathy; E78.00 Pure hypercholesterolemia, unspecified; I48.2 Chronic atrial fibrillation; Z79.4 Long term (current) use of insulin; Z79.01 Long term (current) use of anticoagulants; Z93.2 Ileostomy status; Z93.3 Colostomy status; Z95.810 Presence of automatic (implantable) cardiac defibrillator; Z95.5 Presence of coronary angioplasty implant and graft; Z95.1 Presence of aortocoronary bypass graft; Z92.3 Personal history of irradiation; Z99.3 Dependence on wheelchair; Z87.891 Personal history of nicotine dependence; Z87.440 Personal history of urinary (tract) infections

== ENCOUNTER 2017-04-15 18:05 | Inpatient (IN) | payer OTHER, MEDICAID ==
[2017-04-15 18:41] VITALS: BMI 25.7
[2017-04-15] MEDS ORDERED: Levalbuterol 1.25 MG/3 ML Inhal Soln UD IH PRN (19:03)
[2017-04-15] MEDS ORDERED: Arformoterol 15 mcg/2 ml Inh Sol IH SCH (20:00)
[2017-04-15 20:26] VITALS: RESP 20
[2017-04-15] MEDS ORDERED: Pneumococcal 23-Valent Vaccine IM ONE (20:26)
[2017-04-15] MEDS: Budesonide 0.5 mg/2 ml Inhal Susp UD IH SCH (20:48)
[2017-04-15] MEDS: Arformoterol 15 mcg/2 ml Inh Sol IH SCH (20:48)
[2017-04-15] MEDS: Insulin Reg-MEDIUM-Coverage SC SCH (21:40)
[2017-04-15] MEDS: Insulin Detemir 100 units/ml Vial (Levemir) SC SCH (21:43)
[2017-04-15] MEDS: MethylPREDNISolone 40 mg Vial IVP SCH (21:47)
[2017-04-16] MEDS: Sucralfate 1 gm/10 ml Oral Susp UD PO SCH ×2 (05:46→17:54)
[2017-04-16] MEDS: Pantoprazole 40 mg EC Tab PO SCH ×2 (05:46→17:54)
[2017-04-16] MEDS: Insulin Reg-MEDIUM-Coverage SC SCH ×4 (06:37→22:27)
[2017-04-16] MEDS: Arformoterol 15 mcg/2 ml Inh Sol IH SCH ×2 (08:17→21:50)
[2017-04-16] MEDS: Budesonide 0.5 mg/2 ml Inhal Susp UD IH SCH ×2 (08:18→21:50)
[2017-04-16] MEDS ORDERED: SACUBITRIL PO SCH (10:00)
[2017-04-16] MEDS ORDERED: VALSARTAN PO SCH (10:00)
[2017-04-16] MEDS ORDERED: DUTASTERIDE PO SCH (10:00)
[2017-04-16 10:45] VITALS: O2SAT 98
[2017-04-16] MEDS: Multivitamin Therapeutic Tab PO SCH (10:50)
[2017-04-16] MEDS: VALSARTAN PO SCH ×2 (10:51→17:57)
[2017-04-16] MEDS: Insulin Detemir 100 units/ml Vial (Levemir) SC SCH ×2 (10:51→22:25)
[2017-04-16] MEDS: SACUBITRIL PO SCH ×2 (10:51→17:57)
[2017-04-16] MEDS: Calcium-Vit D 250 mg-125 Units Tab UD PO SCH (10:52)
[2017-04-16] MEDS: MethylPREDNISolone 40 mg Vial IVP SCH ×2 (10:53→21:14)
[2017-04-16] MEDS: Acetylcysteine 20% Inhal Soln (4ml) INH SCH (21:50)
--- NOTE | 2017-04-17 05:37 | CON ---
PULMONARY CONSULTATION DATE: 04/16/2017 REFERRING PHYSICIAN: Dexter Palacios MD REASON FOR CONSULT: Chronic lung disease, cough, lung cancer. HISTORY OF PRESENT ILLNESS: This is a 72-year-old gentleman known to me from acute side of the hospital on previous admission. He has a known history of cardiomyopathy, hypertension, diabetes, history of lung cancer, originally admitted with cough and shortness of breath, acute side of the hospital, treated with antibiotics, inhaled bronchodilator, presently admitted to [facility] to continue care. PAST MEDICAL HISTORY: As per history of present illness. ALLERGIES: NONE KNOWN. SOCIAL HISTORY: Stopped smoking many years ago. Denies any alcohol use. FAMILY HISTORY: No significant cardiopulmonary disease reported. MEDICATIONS: He is on Brovana 15 mcg inhaler twice a day, Carafate 1 g twice a day, Coreg 25 mg twice a day, Coumadin 1 mg will be given tonight, doxycycline 100 mg twice a day, getting Dutasteride 1 capsule daily, Ecotrin 81 mg daily, ferrous sulfate 324 mg twice a day, Flomax 0.4 mg daily, insulin coverage, Lasix 40 mg twice day, Levemir 10 units subcu q.12 hours, Lipitor 10 mg daily, vitamin D and calcium one tablet daily, Protonix 40 mg twice a day, Pulmicort inhaler twice a day, Solu-Medrol 20 mg q.12 hours, multivitamin daily, Tylenol on p.r.n. basis, Xopenex inhaler q.6 hours. REVIEW OF SYSTEMS: No headache. No rhinitis. Has cough, clear sputum production. No chest pain. No nausea. No vomiting. No diarrhea. No leg pain or leg swelling. PHYSICAL EXAMINATION: GENERAL: Lying in bed the bed, no acute distress. VITAL SIGNS: Temperature is 98, heart rate is 97, respiratory rate is 20, blood pressure is 110/63 and pulse oximetry is 98% on nasal cannula.. HEENT: Moist mucous membrane. Crowded airway. Mallampati score is IV. NECK: Supple. No JVD. LUNGS: Scattered rhonchi, has fair airflow. HEART: S1 and S2. ABDOMEN: Soft, nontender. No organomegaly. EXTREMITIES: Does have some edema. NEUROLOGIC: Awake, alert and follows simple commands. LABORATORY DATA: Shows hemoglobin 11.7, hematocrit 35.9, WBC 3.5, platelet count is 302. Blood sugar today 414. IMPRESSION AND PLAN: Cardiomyopathy, chronic obstructive lung disease, lung cancer, atrial fibrillation, history of colostomy, ileostomy, history of radiation therapy, automatic implantable cardioverter-defibrillator, history of aortic aneurysm. Case discussed with the patient's at bedside. All the questions answered. Continue inhaled bronchodilator and keep head at 45 degrees. Gastric prophylaxis, deep venous thrombosis prophylaxis, fall precaution, aspiration precaution. Cardiology followup. Thank you and we will follow with you. Arabella Alva MD
[2017-04-17] MEDS: Pantoprazole 40 mg EC Tab PO SCH ×2 (05:59→16:36)
[2017-04-17] MEDS: Sucralfate 1 gm/10 ml Oral Susp UD PO SCH ×2 (05:59→16:36)
[2017-04-17] MEDS: Insulin Reg-MEDIUM-Coverage SC SCH ×4 (06:32→21:17)
[2017-04-17 08:08] LABS: ALB/GLOB RATIO 1.1 (1.1-1.8); BILIRUBIN,TOTAL 0.3 mg/dL (0.2-1.3); CALCIUM 8.6 mg/dL (8.4-10.5); POTASSIUM 5.5 mmol/L (3.6-5.0); TOTAL PROTEIN 6.5 g/dL (5.8-8.3)
[2017-04-17] MEDS: Multivitamin Therapeutic Tab PO SCH (08:17)
[2017-04-17] MEDS: Acetylcysteine 20% Inhal Soln (4ml) INH SCH (08:42)
[2017-04-17] MEDS: Budesonide 0.5 mg/2 ml Inhal Susp UD IH SCH ×2 (08:42→21:22)
[2017-04-17] MEDS: Arformoterol 15 mcg/2 ml Inh Sol IH SCH ×2 (08:42→21:22)
[2017-04-17] MEDS: VALSARTAN PO SCH ×2 (10:13→16:42)
[2017-04-17] MEDS: SACUBITRIL PO SCH ×2 (10:13→16:42)
[2017-04-17] MEDS: MethylPREDNISolone 40 mg Vial IVP SCH ×2 (10:14→21:25)
[2017-04-17] MEDS: Insulin Detemir 100 units/ml Vial (Levemir) SC SCH ×2 (10:14→21:16)
[2017-04-17] MEDS: Calcium-Vit D 250 mg-125 Units Tab UD PO SCH (10:14)
[2017-04-17 16:39] VITALS: BP 133/89; PULSE 105; TEMP 97.6
--- NOTE | 2017-04-18 02:14 | PN ---
DATE: 04/17/2017 PULMONARY PROGRESS NOTE REFERRING PHYSICIAN: Dr. Palacios. SUBJECTIVE: He is out of bed to chair. is at bedside. Night was unremarkable. Feels much better. Decreased cough. Decreased shortness of breath. No chest pain. No nausea, vomiting, or diarrhea. Still has some leg swelling. OBJECTIVE: GENERAL: In no acute distress. VITAL SIGNS: Temperature is 98, heart rate is 105, respiratory rate is 20, and blood pressure 133/89, pulse ox 98% on nasal cannula. HEENT: Moist mucous membrane. Crowded airway. Mallampati score is IV. NECK: Supple. No JVD. LUNGS: Fair airflow with few rhonchi. HEART: S1 and S2. ABDOMEN: Soft, nontender. No organomegaly. EXTREMITIES: There is some edema. NEUROLOGICAL: Awake and alert. Follow simple commands. MEDICATIONS: Reviewed, noted. No new change in medication reported. LABORATORY DATA: Shows sodium 135, potassium 5.5, chloride 102, bicarbonate 21, BUN 71, creatinine 3.1, glucose 275, calcium 8.6. AST 21, ALT 27, alk-phos is 90, albumin is 3.5. IMPRESSION AND PLAN: Cardiomyopathy, chronic obstructive lung disease, lung cancer, atrial fibrillation, history of colostomy, ileostomy, history of radiation therapy, automatic implantable cardioverter-defibrillator placement, aortic aneurysm. Spoke to the patient's and the patient. Pulmonary point of view, is doing better. We recommend sleep study as outpatient. Severe cardiomyopathy. Overall poor prognosis. Gastric prophylaxis, fall precautions. Continue bronchodilators. Follow up with Dr. Samson for oncology and Dr. Palacios as outpatient. Thank you and we will follow with you. Arabella Alva MD
--- NOTE | 2017-04-18 07:46 | DS ---
The patient was admitted with rehabilitation for continuation of medical therapy, IV steroids, IV doxycycline, inhaled bronchodilators, and BiPAP therapy plus continuation of all other medications for diabetes and blood pressure. The patient's family wants to be discharged to go home to follow up on appointments and explained to the to stay to continue the therapy; however, she decided to go home. The patient was instructed to continue on doxycycline and given prednisone 20 mg for 2 days, 15 mg for 2 days, 10 mg for 2 days, and 5 mg for 2 days and stopped. Monitor her sugar. She was advised how to use the insulin coverage, at least she should increase the Lantus to 15 units and go upto 20 units daily if needed and insulin Humalog to give him 5 units before each meal and monitor sugar and follow up with me. The patient was stable when he was discharged and no new complaints. PHYSICAL EXAMINATION: VITAL SIGNS: Temperature 97.7, heart rate 98, blood pressure 122/84, respiration 20. : No change. DISCHARGE DIAGNOSES: 1. Acute congestive heart failure 2. Acute chronic obstructive pulmonary disease exacerbation. 3. Chronic atrial fibrillation. 4. Coronary artery disease. 5. Hypertension. 6. Hypercholesteremia. 7. Cerebrovascular accident. 8. Lung carcinoma. 9. Pneumonia. PLAN: Discharge the patient. Follow up with the honey liquefier for possible IV milrinone therapy. Dexter Palacios MD
== END 2017-04-17 22:31 | disposition home or self-care (01) | DRG 191 ==
LOC: TRCU 18:05
PROVIDERS: ADMIT Internal Medicine; ATTEND Internal Medicine
PROC: 3E0F7GC Introduction of Other Therapeutic Substance into Respiratory Tract, Via Natural or Artificial Opening (ICD-10-PCS; 2017-04-15)
PROC: F07Z9FZ Gait Training/Functional Ambulation Treatment using Assistive, Adaptive, Supportive or Protective Equipment (ICD-10-PCS; principal; 2017-04-16)
PROC: F08Z4FZ Home Management Treatment using Assistive, Adaptive, Supportive or Protective Equipment (ICD-10-PCS; 2017-04-16)
DX: J44.1 Chronic obstructive pulmonary disease with (acute) exacerbation (principal); Z79.52 Long term (current) use of systemic steroids; I69.351 Hemiplegia and hemiparesis following cerebral infarction affecting right dominant side; I11.0 Hypertensive heart disease with heart failure; I42.9 Cardiomyopathy, unspecified; C34.90 Malignant neoplasm of unspecified part of unspecified bronchus or lung; I50.9 Heart failure, unspecified; I48.2 Chronic atrial fibrillation; E11.9 Type 2 diabetes mellitus without complications; I25.10 Atherosclerotic heart disease of native coronary artery without angina pectoris; E78.00 Pure hypercholesterolemia, unspecified; Z93.3 Colostomy status; Z93.2 Ileostomy status; Z92.3 Personal history of irradiation; Z95.810 Presence of automatic (implantable) cardiac defibrillator; Z87.891 Personal history of nicotine dependence

== ENCOUNTER 2017-07-08 16:47 | Inpatient (IN) | payer MEDICARE, MEDICAID ==
[2017-07-08 17:05] VITALS: BMI 26.8
[2017-07-08] MEDS ORDERED: cefTRIAXone 1 gm 1 GM/100 ML BAG IVPB STA (17:18)
[2017-07-08] MEDS ORDERED: Sodium Chloride 0.9% 250 ML IV STA (17:24)
--- NOTE | 2017-07-08 17:28 | ED PDOC ---
Arrival/HPI - General Chief Complaint: Fever Time Seen by Provider: 07/08/17 17:08 Historian: Spouse EM Caveat: Language Barrier (pt speaks lao) - History of Present Illness Narrative History of Present Illness (Text): 07/08/17 17:25 per , pt p/w + < 1 day onset of fever, Tmax ~ 101.9 and pt had experienced morning dysuria/urinary burning/pain; no hematuria; pt states ? lower abd cramps ; pt noted to be very weak and easily fatigued; decr appetite; per + chills , no sweats, no cp/sob/palpitations, no upper abd pain, good output to pt's colostomy bag without noted diarrhea/bleeding; pt denied LOC; pt's visiting nurse this afternoon noted the fever and pt received tylenol prior to ED arrival ; pt is here for further eval; pt's without other complaints 07/08/17 18:30 Time/Duration: Prior to Arrival Symptom Onset: Sudden Symptom Course: Improving Quality: Cramping Severity Level: Moderate Activities at Onset: Rest Past Medical History - Provider Review Nursing Documentation Reviewed: Yes - Travel History Have you recently traveled outside [place] w/in the past 3 mons?: No - Infectious Disease Hx of Infectious Diseases: None - Tetanus Immunization Tetanus Immunization: Unknown - Cardiac Hx Cardiac Disorders: Yes Hx Coronary Artery Disease: Yes Hx Peripheral Vascular Disease: Yes Other/Comment: AAA with repair. CABG, MS - Pulmonary Hx Asthma: Yes Hx Emphysema: Yes - Neurological Hx Dizziness: Yes - HEENT Hx HEENT Disorder: Yes Hx Cataracts: Yes - Renal Hx Renal Disorder: Yes - Endocrine/Metabolic Hx Diabetes Mellitus Type 2: Yes - Hematological/Oncological Hx Blood Disorders: Yes Hx Anemia: Yes - Integumentary Hx Dermatological Disorder: No - Musculoskeletal/Rheumatological Hx Falls: Yes - Gastrointestinal Hx Gastrointestinal Disorders: Yes (BOWEL OBSTRUCTION.COLOSTOMY,GI BLEED,RECTAL STUMP) Other/Comment: bowel obstruction, colitis - Genitourinary/Gynecological Hx Genitourinary Disorders: Yes (INCONTINENT) Hx Prostate Problems: Yes (bph) Hx Reproductive Disorders: Yes (BPH) - Psychiatric Hx Depression: Yes Hx Substance Use: No - Surgical History Hx Abdominal Aortic Aneurysm Repair: Yes (complicated by endoleak) Other/Comment: Colostomy, R side - Anesthesia Hx Anesthesia: Yes - Suicidal Assessment Feels Threatened In Home Enviroment: No Family/Social History - Physician Review Nursing Documentation Reviewed: Yes (pt is bedbound) Family/Social History: Unknown Family HX (pt lives with at home) Smoking Status: Former Smoker Hx Alcohol Use: No Hx Substance Use: No Hx Substance Use Treatment: No Allergies/Home Meds Allergies/Adverse Reactions: Allergies No Known Allergies Allergy (Verified 04/15/17 20:10) Home Medications: Home Meds Medication Instructions Recorded Confirmed Multivitamin [Daily Vitamin 1 each PO DAILY 02/04/16 07/08/17 Formula] Furosemide [Lasix] 1 tab PO BID 09/10/16 07/08/17 Insulin Glargine, Recombina 14 units SQ HS 09/13/16 07/08/17 [Lantus] Insulin Lispro-LOW [humALOG LOW] See Protocol SQ ACHS 09/13/16 07/08/17 Atorvastatin [Lipitor] 10 mg PO DAILY 11/16/16 07/08/17 ALPRAZolam [Xanax] 1 tab PO DAILY PRN 07/08/17 07/08/17 Calcitriol [Calcitriol] 1 cap PO DAILY 07/08/17 07/08/17 Calcium Acetate [Phoslo] 1 cap PO TID 07/08/17 07/08/17 Famotidine [Pepcid] 1 tab PO DAILY 07/08/17 07/08/17 Finasteride [Proscar] 1 tab PO DAILY 07/08/17 07/08/17 Fluticasone/Vilanterol [Breo 1 puff IH DAILY 07/08/17 07/08/17 Ellipta 100-25 Mcg INH] Lactobacillus Acidophilus 1 tab PO BID 07/08/17 07/08/17 [Acidophilus] Sacubitril/Valsartan [Entresto 24 1 tab PO DAILY 07/08/17 07/08/17 mg-26 mg] Vancomycin HCl [Vancocin 125 MG 250 mg PO QID 07/08/17 07/08/17 Cap] Warfarin [Coumadin] 2 mg PO 1800 07/08/17 07/08/17 Review of Systems - Review of Systems Constitutional: Fatigue, Fevers Eyes: Normal ENT: Normal Respiratory: Normal Cardiovascular: Normal Gastrointestinal: Abdominal Pain, Appetite Changes. absent: Constipation, Diarrhea Genitourinary Male: Dysuria, Frequency. absent: Hematuria Musculoskeletal: Normal Skin: Normal Neurological: absent: Headache, Dizziness, Focal Weakness Endocrine: Normal Hemo/Lymphatic: Normal Psychiatric: Normal Physical Exam Vital Signs Reviewed: Yes Vital Signs Temp Pulse Resp BP Pulse Ox 07/08/17 20:00 99.5 F 115 H 15 80/63 L 98 07/08/17 18:29 112 H 18 93/57 L 96 07/08/17 18:15 102 F H 07/08/17 17:45 102 F H 116 H 18 96/57 L 98 07/08/17 17:00 99.6 F 108 H 16 96/64 L 97 Temperature: Febrile Blood Pressure: Hypotensive Pulse: Tachycardic Respiratory Rate: Normal Appearance: Positive for: Well-Appearing, Other (uncomfortable, alert/awake, GCS = 15, oriented x 3, resting in bed, NAD) Pain Distress: None Mental Status: Positive for: Alert and Oriented X 3 - Systems Exam Head: Present: Atraumatic, Normocephalic Pupils: Present: PERRL, Other (no photophobia, sclera anicteric, no nystagmus, visual field intact b/l) Extroacular Muscles: Present: EOMI Conjunctiva: Present: Normal Ears: Present: Normal Mouth: Present: Other (mild dry oral mucosa, intact dentitions; no drooling/ stridor; uvula/tongue are midline) Pharnyx: Present: Normal Neck: Present: Normal Range of Motion Respiratory/Chest: Present: Clear to Auscultation, Good Air Exchange. No: Respiratory Distress Cardiovascular: Present: Normal S1, S2 Abdomen: Present: Normal Bowel Sounds, Other (colostomy bag/site located to right lower abd site, well appearing ostomy site with good output (non-bloody, non-diarrhea); well nourished male, + lower suprapubic tenderness, no aaron's sign, no mcburney's point tenderness) Back: Present: Normal Inspection. No: CVA Tenderness, Midline Tenderness Upper Extremity: Present: Normal Inspection, Normal ROM, NORMAL PULSES, Capillary Refill < 2s Lower Extremity: Present: Normal Inspection. No: Normal ROM, Darell's Sign Neurological: Present: GCS=15, CN II-XII Intact, Speech Normal Skin: Present: Warm, Other (cap refill ~ 1sec, no rashes/lesions/ulcerations) Psychiatric: Present: Alert Medical Decision Making ED Course and Treatment: 07/08/17 17:27 impression: fever with dysuria, weakness/fatigue r/o sepsis r/o gross infection a/p: fever/dysuria - labs, cultures - ua - xray - iv - observe - supportive care 07/08/17 18:44 6:20pm - Dr Palacios is at bedside, evaluated patient, made aware, agrees with ED mg/txt/dx; agrees with IVF/abx; will admit pt to tele floor code sepsis is activated pt/family are made aware of pt's medical results agrees with admission Reassessment Condition: Improving,but remains with symptoms - Critical Care Critical Care Minutes: 45 minutes Critical Care Time: Excluding Proc Time Narrative Critical Care (Text): 07/08/17 18:45 critical care time: 45min, excluding procedure time, excluding time teaching residents/students/mid-level providers; including initial eval/diagnosis, diagnostic interpretation, re-eval, consultations, final disposition - Lab Interpretations Microbiology Results: Microbiology Results 07/08/17 17:45 Blood Blood Culture - Preliminary Gram Negative Ty 07/08/17 17:45 Blood Gram Stain - Final Lab Results: 07/08/17 17:45 07/08/17 17:45 Lab Results 07/08/17 17:45: Sodium 132, Chloride 106, Potassium 4.3, Carbon Dioxide 16 L, Anion Gap 14, BUN 73 H, Creatinine 3.5 H, Est GFR ( Amer) 21, Est GFR ( Non-Af Amer) 17, Random Glucose 261 H, Calcium 8.5, Phosphorus 3.8, Magnesium 1.6 L, Total Bilirubin 0.9, AST 29, ALT 33, Alkaline Phosphatase 89, NT-Pro-B Natriuret Pep 59924 H, Total Protein 6.2, Albumin 3.1, Globulin 3.1, Albumin/ Globulin Ratio 1.0 L 07/08/17 17:45: pO2 151 H, VBG pH 7.32, VBG pCO2 34.0 L, VBG HCO3 17.5 L, VBG Total CO2 18.5 L, VBG O2 Sat (Calc) 99.9 H, VBG Base Excess -7.7 L, VBG Potassium 4.6, Sodium 132.0, Chloride 105.0, Glucose 288 H, Lactate 1.3, FiO2 21.0, Venous Blood Potassium 4.6 07/08/17 17:45: WBC 11.5 H D, RBC 3.90, Hgb 9.8 L, Hct 29.9 L, MCV 76.7 L, MCH 25.1, MCHC 32.8, RDW 16.1 H, Plt Count 215, MPV 9.7, Gran % 86.7 H, Lymph % ( Auto) 6.5 L, [place] % (Auto) 6.4 H, Eos % (Auto) 0.4 L, Baso % (Auto) 0.0, Gran # 9.94 H, Lymph # 0.8 L, [place] # 0.7 H, Eos # 0.1, Baso # 0.00 I have reviewed the lab results: Yes (elevated BNP; decr h/h; abnl UA) Interpretation: Abnormal lab values - RAD Interpretation Radiology Orders: 07/08/17 17:24 CHEST PORTABLE [RAD] Stat FINDINGS: LUNGS: Substantial decrease in size of left upper lobe mass. PLEURA: No significant pleural effusion identified, no pneumothorax apparent. CARDIOVASCULAR: Cardiomegaly. No evidence of acute, significant cardiovascular disease. Position/ configuration of pacemaker\AICD device: Satisfactory. PICC line in satisfactory position OSSEOUS STRUCTURES: No significant abnormalities. VISUALIZED UPPER ABDOMEN: Normal. OTHER FINDINGS: None. IMPRESSION: Decrease in size of left upper lobe mass. Additional benign and/or incidental findings described above. 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 - EKG Interpretation EKG Interpretation (Text): 07/08/17 18:45 Sinus tach at 110 bpm, normal axis, no ectopy, inverted T in leads III, F, II, V5-6, diffuse low voltage inf leads, ABNL EKG; Interpreted by ED Physician: Yes Type: 12 lead EKG Comparison: Similar to previous EKG - Medication Orders Current Medication Orders: Albuterol/Ipratropium (Duoneb 3 Mg/0.5 Mg (3 Ml) Ud) 3 ml IH QIDRESP [facility] Last Admin: 07/09/17 11:14 Dose: 3 ml Carvedilol (Coreg) 12.5 mg PO BID [facility] Last Admin: 07/09/17 09:39 Dose: 12.5 mg MAR Pulse and Blood Pressure Document 07/09/17 09:39 NGOLK (Rec: 07/09/17 09:39 NGOLK [id number]) Pulse Pulse Rate (60-90) 105 Blood Pressure Blood Pressure (100/60-150/90) 116/73 Darbepoetin Alfie (Aranesp) 60 mcg SC ONCE ONE Stop: 07/10/17 10:01 Dextrose/Sodium Chloride (Dextrose 5%/0.9% Ns 1000 Ml) 1,000 mls @ 60 mls/hr IV .[id number] [facility] Last Admin: 07/08/17 19:35 Dose: 60 mls/hr eMAR Start Stop Document 07/08/17 19:35 AB (Rec: 07/08/17 19:37 AB [id number]) Intravenous Solution Start Date 07/08/17 Start Time 19:37 End Date 07/08/17 Insulin Detemir (Levemir) 12 unit SC BID [facility] Last Admin: 07/09/17 09:49 Dose: 12 unit MAR Blood Glucose Document 07/09/17 09:49 NGOLK (Rec: 07/09/17 09:51 NGOLK [id number]) Blood Glucose Finger Stick Blood Glucose (70-120) 261 Subcutaneous Administrations Document 07/09/17 09:49 NGOLK (Rec: 07/09/17 09:51 NGOLK [id number]) Injection Site MAR Injection Site Left Deltoid Charges for Administration # of Subcutaneous Administrations 1 Insulin Human Lispro (Humalog Med) 0 units SC ACHS ANTHONY PRN Reason: Protocol Last Admin: 07/09/17 08:30 Dose: 5 units MAR Blood Glucose Document 07/09/17 08:30 NGOLK (Rec: 07/09/17 08:51 NGOLK [id number]) Blood Glucose Finger Stick Blood Glucose (70-120) 261 Subcutaneous Administrations Document 07/09/17 08:30 NGOLK (Rec: 07/09/17 08:51 NGOLK [id number]) Injection Site MAR Injection Site Left Deltoid Charges for Administration # of Subcutaneous Administrations 1 Polysaccharide Iron Complex (Ferrex-150) 150 mg PO DAILY ANTHONY Discontinued Medications Ceftriaxone Sodium (Rocephin 1 Gram Ivpb) 1 gm in 100 mls @ 200 mls/hr IVPB STAT STA PRN Reason: Protocol Stop: 07/08/17 17:47 Last Admin: 07/08/17 17:49 Dose: 200 mls/hr eMAR Start Stop Document 07/08/17 17:49 OCS (Rec: 07/08/17 17:49 OCS [id number]) Intravenous Solution Start Date 07/08/17 Start Time 17:49 Sodium Chloride (Sodium Chloride 0.9%) 250 mls @ 999 mls/hr IV .Q16M STA Stop: 07/08/17 17:39 Last Admin: 07/08/17 17:49 Dose: 999 mls/hr eMAR Start Stop Document 07/08/17 17:49 OCS (Rec: 07/08/17 17:49 OCS [id number]) Intravenous Solution Start Date 07/08/17 Start Time 17:49 Meropenem 500 mg/ Sodium (Chloride) 50 mls @ 100 mls/hr IVPB Q24H ANTHONY PRN Reason: Protocol Stop: 07/09/17 02:59 Last Admin: 07/09/17 03:12 Dose: 100 mls/hr eMAR Start Stop Document 07/09/17 03:12 OSUJB (Rec: 07/09/17 08:13 OSUJB [facility] [id number]) Intravenous Solution Start Date 07/09/17 Start Time 03:30 Ibuprofen (Motrin Tab) 400 mg PO STAT STA Stop: 07/08/17 18:00 Last Admin: 07/08/17 18:15 Dose: 400 mg MAR Pain/Vitals Document 07/08/17 18:15 OCS (Rec: 07/08/17 18:15 OCS [id number]) Pain Reassessment Is This A Pain ReAssessment? No Sleep Is patient sleeping during reassessment? No Presence of Pain Presence of Pain No Vitals Temperature (97.6 F-99.6 F) 102 F Temperature Source Oral Disposition/Present on Arrival - Present on Arrival Any Indicators Present on Arrival: No History of DVT/PE: No History of Uncontrolled Diabetes: No Urinary Catheter: No History of Decub. Ulcer: No History Surgical Site Infection Following: None - Disposition Have Diagnosis and Disposition been Completed?: Yes Diagnosis: High risk for sepsis, Hypotension, Weakness, UTI (urinary tract infection) Disposition: HOSPITALIZED Disposition Time: 18:30 Patient Plan: Admission, Telemetry Patient Problems: Current Active Problems Problem Status Onset UTI (urinary tract infection) Acute High risk for sepsis Acute Hypotension Acute Weakness Acute Condition: FAIR
[2017-07-08 18:10] LABS: EOS # 0.1 (0.0-0.7); EOS % 0.4 % (1.5-5.0); GRAN # 9.94 (1.4-6.5); GRAN % 86.7 % (50.0-68.0); HEMOGLOBIN 9.8 g/dL (14.0-18.0); LYMPH # 0.8 (1.2-3.4); LYMPH % 6.5 % (22.0-35.0); MEAN CELL VOLUME 76.7 fl (80.0-105.0); MEAN CORPUSCULAR HEMOGLOBIN 25.1 pg (25.0-35.0); MEAN CORPUSCULAR HGB CONC 32.8 g/dl (31.0-37.0); MEAN PLATELET VOLUME 9.7 fl (7.0-11.0); MONO # 0.7 (0.1-0.6); MONO % 6.4 % (1.0-6.0); RBC 3.9 10^6/uL (3.5-6.1); RED CELL DISTRIBUTION WIDTH 16.1 % (11.5-14.5); WHITE BLOOD COUNT 11.5 10^3/ul (4.5-11.0)
[2017-07-08 18:14] LABS: VENOUS BLOOD GAS BASE EXCESS -7.7 mmol/L (0.0-2.0); VENOUS BLOOD GAS PO2 151 mm/Hg (30-55); VENOUS BLOOD PH 7.32 (7.32-7.43)
--- NOTE | 2017-07-08 18:23 | RAD ---
HISTORY: Fever, weakness COMPARISON: 04/13/2017 FINDINGS: LUNGS: Substantial decrease in size of left upper lobe mass. PLEURA: No significant pleural effusion identified, no pneumothorax apparent. CARDIOVASCULAR: Cardiomegaly. No evidence of acute, significant cardiovascular disease. Position/ configuration of pacemaker Satisfactory. PICC line in satisfactory position OSSEOUS STRUCTURES: No significant abnormalities. VISUALIZED UPPER ABDOMEN: Normal. OTHER FINDINGS: None. IMPRESSION: Decrease in size of left upper lobe mass. Additional benign and/or incidental findings described above.
[2017-07-08 18:52] LABS: ALBUMIN 3.1 g/dL (3.0-4.8); CALCIUM 8.5 mg/dL (8.4-10.5); MAGNESIUM 1.6 mg/dL (1.7-2.2)
[2017-07-08] MEDS: Dextrose 5%/0.9% NS 1,000 ML IV SCH (19:35)
[2017-07-08 22:37] LABS: VENOUS BLOOD GAS BASE EXCESS -8.6 mmol/L (0.0-2.0); VENOUS BLOOD GAS PO2 241 mm/Hg (30-55); VENOUS BLOOD PH 7.35 (7.32-7.43)
[2017-07-09] MEDS: Insulin Detemir 100 units/ml Vial (Levemir) SC SCH ×3 (02:30→18:29)
[2017-07-09] MEDS ORDERED: Meropenem 500 MG in Sodium Chloride 0.9% 50 ML IVPB SCH (02:30)
[2017-07-09] MEDS: Albuterol-Ipratrop 3 mg / 0.5 (3 ml) UD IH SCH ×4 (07:35→20:40)
--- NOTE | 2017-07-09 08:09 | PCM.SEPTIC ---
Sepsis Progress Note - Reassessment Type Date of Evaluation: 07/08/17 Time of Evaluation: 23:50 Reassessment Type: Non-invasive reassessment - Non Invasive Reassessment Were the most recent vital sign reviewed: Yes Vital Sign (Latest): Temp Pulse Resp BP Pulse Ox 98.4 F 78 20 120/77 98 07/09/17 00:01 07/09/17 07:37 07/09/17 00:01 07/09/17 00:01 07/09/17 00:01 Cardiovascular: Yes: Regular Rate, Rhythm, Tachycardia. No: JVD Respiratory: Yes: Decreased Breath Sounds, Rales Capillary Refill: Normal (Less than 2 sec) Pulses: Normal Radial, Decreased Dorsalis Pedis, Decreased Posterior Tibialis Skin: Normal Color
[2017-07-09] MEDS: Insulin Lispro (humaLOG) MEDIUM Coverage SC SCH ×4 (08:30→21:43)
--- NOTE | 2017-07-09 09:37 | CARD ---
APPROVED REPORT EKG Measurement Heart [id number] <Conclusion> Sinus tachycardia Low voltage QRS limb leads PRWP STTW changes Prolonged QTC. No change
[2017-07-09 09:53] LABS: URINE BILIRUBIN NEGATIVE (NEGATIVE); URINE BLOOD LARGE (NEGATIVE); URINE GLUCOSE (UA) NEGATIVE (NEGATIVE); URINE LEUKOCYTE ESTERASE LARGE Leu/uL (NEGATIVE); URINE NITRATE POSITIVE (NEGATIVE); URINE PROTEIN 100 mg/dL (<30 mg/dL); URINE UROBILINOGEN 0.2 E.U./dL (<1 E.U./dL)
[2017-07-09 09:54] LABS: URINE APPEARANCE TURBID (CLEAR); URINE COLOR LIGHT YELLOW (YELLOW)
[2017-07-09 10:08] LABS: URINE BACTERIA MOD (NEG); URINE EPITHELIAL CELLS 0 - 2 /hpf (0-5); URINE WBC TNTC /hpf (0-6)
--- NOTE | 2017-07-09 12:28 | CON ---
DATE: 07/09/2017 The patient admitted for Dr. Palacios. REFERRING PHYSICIAN: Dexter Palacios MD REASON FOR CONSULTATION: Evaluation of the patient known to us who presents with acute renal failure superimposed on chronic kidney disease stage IV in the setting of likely UTI and possible urosepsis. HISTORY OF PRESENT ILLNESS: The patient is a 72-year-old white male lying comfortable in bed on 3R. He has a past history of chronic kidney disease stage IV with a baseline BUN in the 40s and creatinine in the 2.5 range, history of recurrent urinary tract infections, history of mild hyponatremia in part secondary to renal failure, history of NIDDM, history of hypertension, history of ASHD status post CABG with severe cardiomyopathy, CHF, ejection fraction 15-20% with history of AICD and permanent pacemaker, history of peripheral vascular disease with aortic abdominal aneurysm with repair, history of colostomy secondary to bowel surgery for obstruction, history of metabolic acidosis, history of anemia, history of past CVA, history of BPH, and history of hyperlipidemia. The patient was doing okay until one day ago and he noted the onset of fevers. In the past, the patient has had urinary tract infection. He was brought to the Emergency Room by his family. He was noted to have of likely a recurrent urinary tract infection. In the ER, he was to have BUN of 73, almost double his baseline and creatinine of 3.5, again his baseline creatinine was 2.5. We are asked to evaluate the patient for his hmawh-jf-lvoeoyk kidney disease, metabolic acidosis, CO2 is 16. The patient's sodium at this time is stable at 132. PMH: As noted above. MEDICATIONS AT HOME: Include that of insulin, Feosol, Flomax, Breo Ellipta, Proscar, Coreg, Coumadin, Entresto, Lasix, Lipitor, oral vancomycin, Pepcid, Ecotrin, PhosLo, calcitriol, multivitamin, acidophilus, and Xanax. ALLERGIES: NO KNOWN ALLERGIES TO MEDICATIONS. CURRENT MEDICATIONS: In hospital include that of Coreg, D5 normal saline 60 an hour, DuoNeb, insulin, both long-acting and short-acting. She is status post one dose of meropenem and one dose of Rocephin. SOCIAL HISTORY: No history of alcohol. No history of cigarette smoking. The patient was a past cigarette smoker. FAMILY HISTORY: Reviewed with the patient, unchanged from past and is not noncontributory. REVIEW OF SYSTEMS: GENERAL: Up until one day ago. Appetite and weight have been stable. ENT: Denies any hearing or visual problems. PULMONARY: Chronic shortness of breath with exertion secondary to cardiomyopathy. CARDIAC: History as noted above. GASTROINTESTINAL: The patient has a colostomy. GENITOURINARY: History of chronic kidney disease stage IV with a baseline creatinine of 2.5. ENDOCRINE: History of diabetes mellitus. MUSCULOSKELETAL: No complaints. NEUROLOGIC: Past history of CVA. HEMATOLOGIC AND ONCOLOGIC: History of anemia secondary to chronic kidney disease and history of a left upper lobe lung mass, being followed with CT and PET scan. PAST PSYCHIATRIC HISTORY: Negative. PHYSICAL EXAMINATION: GENERAL: The patient is currently seen on 3R, is lying supine in bed comfortable, IV fluids are infusing. He remains on IV antibiotic therapy. VITAL SIGNS: Blood pressure is 116/73 with a temperature of 97.8, T-max was 102 degrees last night, and respiratory rate is 18 with a pulse of 105. HEENT: Exam shows him to be normocephalic, atraumatic. Conjunctivae are pale. Sclerae nonicteric. Pupils equal and reactive to light and accommodation. Extraocular muscles are intact. Posterior pharynx is normal. NECK: Supple. No neck vein distention. No thyromegaly. No lymphadenopathy. No bruits. CHEST: Clear to auscultation and percussion. No rales or rhonchi or wheezing. CARDIOVASCULAR: Shows a regular rate and rhythm without audible murmurs, rubs or gallops. Positive AICD permanent pacemaker. ABDOMEN: Soft. Bowel sounds normal. Positive left lower quadrant colostomy appears intact. No rebound or guarding. BACK: No CVAT. No spinal tenderness. EXTREMITIES: Show no cyanosis, clubbing or edema. Distal lower extremity pulses are 1 to 2+ bilaterally. NEUROLOGIC: Shows him to be alert and oriented x3 with no gross focal motor or sensory deficits noted. IMAGING STUDIES: Admitting chest x-ray showed a decreased size of the left upper lobe lung mass, AICD and permanent pacemaker, no acute pulmonary disease. EKG showed sinus tachycardia unchanged from past. Renal ultrasound done in 02/2017 showed bilateral kidney cysts, normal kidneys, chronic medical renal disease and no hydronephrosis. LABORATORY DATA: CBC: White blood cell count 11.5 and hemoglobin 9.8 with a platelet count of 215,000. Chemistries show sodium of 132, potassium of 4.3, chloride of 106, CO2 of 16, BUN was 73 with a creatinine of 3.5, glucose is 261, magnesium level was 1.6, and calcium 8.5 with the phosphorus of 3.8. BNP was 19,700. Arterial blood gas showed a pH of 7.35 and pCO2 of 16 with pO2 of 241. Lactic acid level was 0.9. Urine showed TNTC white blood cells with moderate bacteria. Microbiology cultures are pending at this point in time. ASSESSMENT: 1. Acute renal failure superimposed on chronic kidney disease stage IV: The patient has had multiple presentations similar to this one. In the past, he has been treated with appropriate antibiotic therapy for his UTI and his cardiac output had been optimized with adjustment of diuretic therapy and occasional use of inotropic agents. The patient does have an ejection fraction of 15-20% as noted above. We will continue to monitor accurate I's and O's and daily labs and hopefully optimize his cardiac output, which will improve renal perfusion and decrease his BUN and creatinine back to baseline levels, BUN baseline is in the 40s with the creatinine of 2.5. 2. Likely recurrent urinary tract infection, previous admission, the patient Klebsiella urinary tract infection treated with a prolonged course of antibiotic therapy. 3. History of ggi-cnclfro-ngtcurgjb diabetes mellitus, currently on insulin: Continue to monitor sugars closely, he is on sliding scale insulin. 4. History of hypertension: Blood pressure is presently controlled on present cardiac medications. 5. History of arteriosclerotic heart disease, status post coronary artery bypass grafting, history of congestive heart failure, cardiomyopathy, ejection fraction 15-20% with automatic implantable cardioverter defibrillator and permanent pacemaker. The patient will be seen by Cardiology. In the past, the patient had received Primacor for ionotropic support. 6. History of peripheral vascular disease with abdominal aortic aneurysm and repair. 7. History of metabolic acidosis, secondary to worsening chronic kidney disease. 8. History of anemia, secondary to chronic kidney disease. Hemoglobin is acceptable at 9.8 p.r.n. Aranesp and we will check iron levels. 9. History of benign prostatic hypertrophy, currently stable. 10. History of mild hyperlipidemia, stable. PLAN: 1. We will continue to monitor the patient closely along with you. 2. Accurate I's and O's and daily labs. 3. Agree with trial of ionotropic support after the patient is seen by Cardiology. 4. Continue empiric antibiotic therapy pending cultures. 5. If BUN and creatinine worsen, we will obtain a renal ultrasound to rule out any obstructive uropathy. His last ultrasound was done approximately 4 months ago. 6. At present time, we would hold angiotensin receptor yimi or PIETRO inhibitor therapy in light of fact that his BUN and creatinine are above baseline levels. 7. At present time, I would hold diuretic therapy, but given his low ejection fraction, he will need to go back on diuretic therapy. Thank you for letting us partake and share in the care of your patient Mio Stoddard MD MTDD
[2017-07-09] MEDS: Dextrose 5%/0.9% NS 1,000 ML IV SCH (12:33)
[2017-07-09 14:58] LABS: IRON < 10 ug/dL (45-180); TOTAL IRON BINDING CAPACITY 224 ug/dL (261-462)
[2017-07-09] MEDS: Furosemide 40 mg/5 mL Oral Soln UD PO SCH (15:00)
[2017-07-09 15:08] LABS: INR 1.85 (0.93-1.08); PARTIAL THROMBOPLASTIN TIME 28.9 Seconds (25.1-36.5); PROTHROMBIN TIME 20.4 SECONDS (9.4-12.5)
[2017-07-09] MEDS: SACUBITRIL 24mg/VALSARTAN 26mg tab PO SCH (18:27)
[2017-07-09] MEDS: Milrinone 20mg/100ml D5W 100 ML IV PRN (21:13)
--- NOTE | 2017-07-09 22:53 | CON ---
DATE: 07/09/2017 LOCATION: Patient was seen in bed in room 377, bed 2. CHIEF COMPLAINT: Fever of 102 x 1 day. HISTORY OF PRESENT ILLNESS: This is a 72-year-old [place] male with hypertension, chronic congestive heart failure, coronary artery disease, chronic obstructive lung disease, BPH, history of left DVT, history of pacemaker and colostomy, and there is no known allergies, who was admitted with diagnosis of sepsis. Blood cultures were done and a gram-negative avis was reported. Infectious disease consultation requested. REVIEW OF SYSTEMS: Revealed the patient has fever, chills. No abdominal pain. No diarrhea or constipation. No headaches or blurred vision. PAST MEDICAL HISTORY: Significant for hypertension, congestive heart failure, coronary artery disease, chronic obstructive pulmonary disease, BPH, and left DVT. PAST SURGICAL HISTORY: Significant for colostomy and the patient has no known allergies. MEDICATIONS: At home are reviewed. PHYSICAL EXAMINATION: VITAL SIGNS: He is in bed with a temperature of 102, heart rate of 113, blood pressure is 111/70, heart rate of 20. HEENT: Unremarkable. NECK: Supple. LUNGS: Have decreased breath sounds. HEART: Normal S1, S2. ABDOMEN: Soft, nontender. LABORATORY EXAMINATION: Reveals a white count 11,500, hemoglobin of 9, platelets of 215. Coagulation is noted and chemistries reveal a BUN of 73, creatinine of 3.5. BMP is 19,700. Urinalysis reveals twl-lxtuoplj-le-count wbc's, many bacteria. Dr. Young's note is reviewed. ASSESSMENT AND PLAN: This is a 72-year-old with hypertension, congestive heart failure, coronary artery disease, chronic obstructive lung disease, benign prostatic hypertrophy, deep venous thrombosis, admitted now with severe sepsis with gram-negative avis bacteremia. Blood cultures are reported as gram-negative rods, most likely with urine as the source with acute kidney injury. His creatinine has gone up from 2.6 to 3.5.. We will treat the patient with meropenem empirically and should have a CT scan of the abdomen and pelvis. Check on the identification of gram-negative avis in the blood, check on the urine culture. We will make further recommendations. Walt Conner MD
--- NOTE | 2017-07-09 23:40 | CON ---
DATE: CARDIOLOGY CONSULTATION REASON FOR CONSULTATION: Nonsustained ventricular tachycardia and cardiomyopathy. HISTORY OF PRESENT ILLNESS: The patient is 72-year-old male who has history of dilated cardiomyopathy at home, had multiple admissions for exacerbation of congestive heart failure, was admitted because of fever and difficulty urinating as well as cloudy urine according to the patient's . Overnight, the patient was noted on the monitor to have short runs of nonsustained ventricular tachycardia and also runs of atrial fibrillation with aberrancy. The patient denies any chest pain or shortness of breath at this time. SOCIAL HISTORY: The patient is nonsmoker. He lives at home with his taking "care of him". MEDICATIONS: Coreg 12.5 mg twice a day, doxycycline 100 mg intravenously q. 12 hours, Ferrex 150 mg daily, Levemir 12 units subcutaneous twice a day. HOME MEDICATIONS: Include Coumadin 2 mg once a day, oral vancomycin 250 mg twice a day, Lipitor 10 mg once a day, aspirin 81 mg once a day, Lasix 20 mg p.o. twice a day, Lipitor 10 mg once a day. REVIEW OF SYSTEMS: No dizziness or syncope. No recent discharge of defibrillator. PHYSICAL EXAMINATION: GENERAL: The patient is an elderly male, who does not appear to be in acute distress. VITAL SIGNS: Blood pressure 116/73, heart rate 105, temperature 97.8, respirations 18. HEENT: Pale conjunctivae. CHEST: Diminished breath sounds at the bases. HEART: S1 and S2 regular. ABDOMEN: Soft. EXTREMITIES: No edema. Chest x-ray revealed mild cardiomegaly with mild CHF, ICD ventricular lead is noted. LABORATORY DATA: Hemoglobin and hematocrit today is 9.8 and 29.9, white count 11.5, platelet count 115,000. SMA-7, sodium 132, potassium 4.2, chloride 106, CO2 of 16, glucose 261, BUN 73, and creatinine 3.5. Preliminary report of blood cultures, Gram-negative rods. EKG revealed sinus tachycardia at a rate of [address]-T wave changes. ASSESSMENT: 1. Dilated cardiomyopathy status post implantable cardioverter defibrillator placement. 2. Nonsustained ventricular tachycardia. 3. Systolic heart failure. 4. Gram-negative bacteremia, rule out underlying sepsis. 5. Chronic renal insufficiency. 6. Anemia. RECOMMENDATIONS: Continue Coreg 12.5 mg twice a day. Obtain PT and INR before resuming Coumadin. Resume Lasix 20 mg orally daily. In the meantime, I will hold Primacor for now. The patient is not a suitable candidate for either PIETRO inhibitors or Aldactone therapy and few significant underlying renal insufficiency. Oni Cowan MD
[2017-07-10 06:39] LABS: HEMOGLOBIN 9.6 g/dL (14.0-18.0); MEAN CORPUSCULAR HEMOGLOBIN 25.1 pg (25.0-35.0); MEAN PLATELET VOLUME 10.3 fl (7.0-11.0); RBC 3.83 10^6/uL (3.5-6.1); RED CELL DISTRIBUTION WIDTH 16.4 % (11.5-14.5); WHITE BLOOD COUNT 13.5 10^3/ul (4.5-11.0)
[2017-07-10 07:04] LABS: ALB/GLOB RATIO 0.9 (1.1-1.8); ALBUMIN 2.9 g/dL (3.0-4.8); CALCIUM 8.7 mg/dL (8.4-10.5); MAGNESIUM 1.7 mg/dL (1.7-2.2)
[2017-07-10] MEDS: Albuterol-Ipratrop 3 mg / 0.5 (3 ml) UD IH SCH ×4 (07:13→19:42)
[2017-07-10] MEDS: Insulin Lispro (humaLOG) MEDIUM Coverage SC SCH ×4 (07:46→22:12)
[2017-07-10] MEDS ORDERED: Darbepoetin Alfa 60 mcg/ml Inj SC ONE (10:00)
[2017-07-10] MEDS ORDERED: Iron Complex Polysacch 150mg Cap PO SCH (10:00)
[2017-07-10] MEDS: Furosemide 40 mg/5 mL Oral Soln UD PO SCH (11:00)
[2017-07-10] MEDS: SACUBITRIL 24mg/VALSARTAN 26mg tab PO SCH (11:00)
[2017-07-10] MEDS: Insulin Detemir 100 units/ml Vial (Levemir) SC SCH ×2 (11:00→18:00)
--- NOTE | 2017-07-10 13:47 | US ---
PROCEDURE: Ultrasound of the Kidneys HISTORY: ARF. CKD4 UTI R/O hydro COMPARISON: 03/09/2017. TECHNIQUE: Sonogram of the kidneys. FINDINGS: RIGHT KIDNEY: Measures: 4.7 x 9.2 cm. Normal in size, contour with increased echogenicity consistent with medical renal disease No stone, solid mass or hydronephrosis visualized. Incidental finding(s): Multiple (3 simple cysts). [place] LEFT KIDNEY: Measures: 4.6 x 9.2 cm. Normal in size, contour with increased echogenicity consistent with medical renal disease No stone, solid mass lesion or hydronephrosis visualized. Incidental finding(s):Multiple (3) simple cysts the largest in the lower pole OTHER FINDINGS: None IMPRESSION: No acute findings related to/accounting for the clinical presentation. No significant interval change compared to the prior examination(s).
--- NOTE | 2017-07-10 14:40 | PN ---
DATE: SUBJECTIVE: The patient is currently seen lying comfortable in bed. He is now on a Primacor drip. He had been continuing on Lasix therapy and Entresto. His creatinine today is up to 4 with a BUN of 74. His baseline BUN is in the 40s with a creatinine of 2.5. Urine output is not being charted. He remains on antibiotic therapy for a likely urinary tract infection and possible septicemia. MEDICATIONS: His medications list reviewed. The patient is currently on Coreg, Coumadin, DuoNeb, Ecotrin, Entresto is going to be discontinued. Iron, Flomax, insulin, Lasix, which is being discontinued today, Levemir, meropenem, Primacor drip, Proscar, and Tylenol. OBJECTIVE: INTAKE/OUTPUT: Intake 565, output not charted. Weight not done. VITAL SIGNS: Blood pressure 110/72 with a pulse of 106, temperature 97.7, respiratory rate of 20. HEENT: Shows him to be normocephalic, atraumatic. Conjunctivae are pale. Sclerae are nonicteric. NECK: Supple. No neck vein distention. CHEST: Clear to auscultation and percussion with decreased breath sounds at the bases. No rales, no rhonchi or wheezing. CARDIOVASCULAR: Shows a regular rate and rhythm without audible murmurs, rubs or gallops. Positive AICD/permanent pacemaker. ABDOMEN: Soft. Bowel sounds normal. Left lower quadrant colostomy intact. No rebound or guarding. EXTREMITIES: Show no cyanosis, clubbing or edema. Distal lower extremity pulses are 1-2+. NEUROLOGIC: Shows him to be alert, oriented. No gross focal motor deficits and no asterixis. LABORATORY DATA AND IMAGING STUDIES: Renal ultrasound done, results are pending. Admitting chest x-ray showed decreased size of the left upper lobe lung mass but no yves CHF. Labs, CBC, white blood cell count 13.5, hemoglobin 9.6 with a platelet count of 220,000. Chemistries today showed a sodium of 137, potassium 4.3, chloride 110 with a CO2 of 18, BUN is up to 74. Creatinine is up to 4.0. Calcium 8.7, phosphorus 4.8. Liver enzymes are normal. Albumin level is down to 2.9. Urine show 2+ protein. Positive white blood cells, positive bacteria. Microbiology: Gram-negative avis in his urine, gram-negative avis in his blood, final isolation and sensitivity are pending. ASSESSMENT: 1. Acute renal failure superimposed on chronic kidney disease stage IV. This is in the setting of possible septicemia, positive urosepsis, positive urinary tract infection. The patient has a weak heart muscle, 15-20% ejection fraction. He had been on angiotensin receptor yimi therapy and a Lasix therapy. This will need to be discontinued as creatinine is now up to 4.0. His baseline is 2.5. Renal ultrasound is pending. 2. Likely, recurrent urinary tract infection in the past, the patient had a Klebsiella UTI. Presently, his gram-negative rods in urine and in blood. 3. History of non-insulin dependent diabetes mellitus. The patient is currently on insulin. Continue to monitor sugars closely. 4. History of hypertension. Blood pressure control presently is excellent on current medical therapy. 5. History of atherosclerotic heart disease, status post coronary artery bypass graft, history of congestive heart failure, cardiomyopathy, ejection fraction 15-20% with automatic implantable cardioverter defibrillator permanent pacemaker. The patient is being followed by Cardiology. Agree with decision to place the patient on ionotropic therapy with Primacor. No choice but to discontinue diuretic therapy and Entresto because it contains an angiotensin receptor yimi. 6. History of peripheral vascular disease with aortic abdominal aneurysm and repair, stable. 7. History of metabolic acidosis, CO2 level today is 18. This is likely secondary to worsening kidney parameters. 8. History of mild anemia. Secondary to chronic renal failure. The patient will continue on Aranesp therapy, iron saturations are low. The patient will continue oral iron therapy twice a day. I will not give him IV iron because of the potential positive blood culture. 9. History of elevated phosphorus level, likely secondary to secondary hyperparathyroidism. The patient will continue renal diet and start binder therapy. 10. History of benign prostatic hypertrophy, currently stable. 11. History of mild hyperlipidemia, stable. PLAN: 1. We will make the adjustments and his diuretic therapy and angiotensin receptor yimi therapy as noted above. 2. Spoke to the staff on 3-R, need to h ave accurate Is and Os done with daily weights. There is no substitute for information that will lead us to make the correct decision regarding his medication. 3. Continue to monitor sugars and adjust insulin. 4. Continue IV antibiotic therapy pending results of cultures. 5. Discussed with the patient and his in detail. 6. Continue to follow daily, accurate Is and Os, weights and labs. Hoping to see improvement in his BUN and creatinine with discontinuation of angiotensin receptor yimi therapy, start of ionotropic therapy and discontinuation of diuretic therapy. Mio Stoddard MD
[2017-07-10] MEDS: Iron Complex Polysacch 150mg Cap PO SCH (17:58)
[2017-07-10] MEDS: Milrinone 20mg/100ml D5W 100 ML IV PRN (18:52)
--- NOTE | 2017-07-10 18:52 | PN ---
DATE: 07/13/2017 SUBJECTIVE: The patient is in bed in no acute distress, nontoxic. PHYSICAL EXAMINATION: VITAL SIGNS: Temperature is 98, blood pressure is 113/70, respiratory rate of 20. HEENT: Unremarkable. NECK: Supple. HEART: Normal S1, S2. ABDOMEN: Soft, nontender. Laboratory examination reveals the patient's white count of 13,500, hemoglobin of 9, platelets of 220. BUN of 74, creatinine of 4.0. Urinalysis is noted. Microbiology reveals the blood cultures, gram-negative avis. Urine culture is gram-negative avis. ASSESSMENT AND PLAN: A 72-year-old male with hypertension, congestive heart failure, coronary artery disease, chronic obstructive lung disease, benign prostatic hypertrophy, deep venous thrombosis, admitted now with severe sepsis with gram-negative avis bacteremia secondary to urine as the source, most likely with acute kidney injury, currently on meropenem and awaiting for identification sensitivity of the gram-negative avis. The patient also had a renal ultrasound which reveals no acute findings. We will follow closely with you. Walt Conner MD
--- NOTE | 2017-07-10 19:31 | PN ---
DATE: SUBJECTIVE: The patient was resumed on infusion last night. He denies chest pain or shortness of breath. He is experiencing painful urination. PHYSICAL EXAMINATION VITAL SIGNS: Blood pressure 110/72, heart rate 106 and temperature 97.7. HEENT: Pale conjunctiva. CHEST: Diminished breath sounds over the bases. HEART: S1 and S2 regular. EXTREMITIES: No edema. LABORATORY DATA: Hemoglobin and hematocrit 9.6 and 29.1, white count 15.5 and platelet count 220,000. Today's BUN and creatinine are 74 and 4.0. Blood culture and urine culture both positive for gram negative rods. No final identification yet. ASSESSMENT: 1. Cardiomyopathy. 2. Gram negative bacteremia, consider underlying urosepsis. 3. Non-sustained ventricular tachycardia. 4. Systolic heart failure. 5. Advanced renal insufficiency. 6. Anemia. RECOMMENDATIONS: Case was discussed with both the primary physician Dr. Palacios and with Infectious Disease specialist Dr. Conner. Continue Coreg 25 mg once a day, aspirin 81 mg once a day, IV meropenem 250 mg twice a day, continue milrinone infusion. Coumadin 2 mg will be given today. INR yesterday was 1.85. Oni Cowan MD
[2017-07-10] MEDS: Alum-Mag Hydrox-Simethicone Susp (30 mL) PO PRN (20:58)
--- NOTE | 2017-07-11 00:47 | PN ---
DATE: 07/10/2017 SUBJECTIVE: The patient complained of feeling tired and weak. He wants to go home today, but apparently clinically, he is more aware and more alert, and in no respiratory distress. He seems stable today compared with day of admission. PHYSICAL EXAMINATION: VITAL SIGNS: Today shows following; temperature is 98, heart rate is 106, blood pressure is 110/72, and respirations are 20. HEAD AND NECK: Normal. No JVD. No thyromegaly. CHEST: Clear. Diminished breath sounds. CARDIAC: First sound and second sound normal. Systolic murmur. ABDOMEN: Soft and nontender with colostomy bag. EXTREMITIES: Mild edema with generalized weakness more on the left than the right. NEUROLOGIC: He is more alert, awake, and oriented x3. He moves upper extremities. LABORATORY STUDY As following; his white count is up 13.5, hemoglobin is 9.6, hematocrit is 29.1, and platelets are 220. His sodium is 137, potassium is 4.3, chloride is 110, bicarb is 18, BUN is 74, creatinine is 4, blood sugar is 86, and phosphorus is 4.8. IMPRESSION AND PLAN: 1. Severe sepsis: The patient had a blood culture, which had grown up gram negative rods in the blood and urine also gram negative rods. At this time, I will continue IV meropenem. We will follow up with IV consults. 2. Ischemic cardiomyopathy: The patient has some runs of ventricular tachycardia. We will hold off on milrinone one day and we will resume it later when the patient is stable and no more episodes. Continue IV milrinone. 3. Chronic atrial fibrillation: Continue Coumadin. 4. History of deep vein thrombosis: Continue Coumadin. We will monitor PT/INR. 5. History of ischemic heart disease, cardiomyopathy: Continue milrinone and continue aspirin and Coreg. We will increase it to 25 mg b.i.d. The patient seems to be hemodynamically stable. 6. For his diabetes, continue Levemir 25 units b.i.d. plus insulin coverage, moderate coverage. His sugar is much better than before. We will continue insulin as it is. 7. History of lung mass and chronic obstructive pulmonary disease: We will put the patient on nebulizer treatment and we will follow up clinically. Continue current therapy. Follow up clinically. Dexter Palacios MD
--- NOTE | 2017-07-11 03:37 | HP ---
DATE OF NOTE: 07/09/2017 REASON FOR ADMISSION: Fever of 102, the patient is feeling weak and sick. HISTORY OF PRESENT ILLNESS: This 72-year-old male with history of chronic renal failure, hypertension, ischemic cardiomyopathy on IV milrinone, history of recurrent urinary tract infection, came into the hospital with fever. The patient also lost his appetite, feeling weak, tired, no energy, little bit lethargic and not eating. He has had them for the last 24 hours. PAST MEDICAL HISTORY: As I mentioned before ischemic cardiomyopathy, abdominal aortic aneurysm, stent placement, bowel resections and bowel obstructions with multiple surgeries, and has colostomy. The patient has also had hypertension, chronic atrial fibrillation, subclavian DVT, depression, CVA with left-sided weakness, insulin dependant,and prostate enlargement. The patient also has history of left upper lobe lung cancer, has been treated with radiation therapy. ALLERGIES: NO KNOWN ALLERGIES. HOME MEDICATIONS: He is taking Lantus 40 units at night, iron pills, Flomax 0.4, Breo Ellipta inhalers, Proscar, Coreg 25 b.i.d., Coumadin 2 mg p.o., daily, Entresto 1 tablet p.o. daily, Lasix 1 tablet p.o. b.i.d., Lipitor 10 mg, Vancocin p.o., Pepcid, Ecotrin, PhosLo, Calcitrol, vitamins, acidophilus, and Xanax 1 tablet daily. REVIEW OF SYSTEMS: As in the present illness, most of the time, he is bedridden or on a chair at home. His is a very good caregiver. The patient otherwise as in the present illness cannot walk, general weakness, anxiety, dyspnea, and on IV milrinone drip. PHYSICAL EXAMINATION: VITAL SIGNS: On 07/09/2017 on admission here, his temperature of 99.5, heart rate of 115, blood pressure is 80/63, respirations of 15, and oxygen saturation is 98%. HEAD AND NECK: Normal. No JVD. No thyromegaly. CHEST: Clear. Diminished breath sounds bilaterally. CARDIAC: First sound and second sound normal. Systolic murmur across the precordium. ABDOMEN: Soft with colostomy bag. EXTREMITIES: No edema or mild edema. NEUROLOGIC: Bedridden. He move his upper hands and minimal movement of the lower extremity, worse in the left. LABORATORY STUDIES: When he came in white count is 11.5, hemoglobin is 9.8, hematocrit is 29.9, and platelets are 215. Chemistries: Sodium of 132, potassium of 4.3, chloride of 106, bicarbonate of 16. BUN of 73 and creatinine of 3.5. Blood sugar is 261. Calcium is 8.5, phosphorus is 3.8 and magnesium is 1.6. The patient also had urinalysis which shows too numerous to count white cells and large leucocyte esterase. The patient also had PT and PTT, INR of 1.85 and PT of 20.4. DIAGNOSTIC DATA: Also had a renal ultrasound which shows no acute findings, and negative renal ultrasound. The patient also had chest x-ray, which shows no significant pleural effusion and no pneumothorax apparent. There is decrease in size upper lobe mass. IMPRESSION AND PLAN: 1. This is an 72-year-old male with history of stroke, ischemic cardiomyopathy, hypertension, and insulin dependant diabetes who came in with fever and leucocytosis and urine shows too numerous too count white cells. Also had hypotension when he came in. We admit the patient with severe sepsis due to urinary tract infection. We will give the patient meropenem. Infectious Diseases consult Dr. Conner. Intravenous fluids. 2. Chronic renal failure, acute worsening. Renal consult. 3. Ischemic cardiomyopathy on milrinone intravenous infusion. We will get a cardiology consult for further evaluation and continuation of intravenous milrinone. At this time, we will resume his medicine insulin and resume Coumadin. Continue current treatments. Follow up blood culture. Dexter Palacios MD
[2017-07-11 06:58] LABS: INR 1.95 (0.93-1.08); PROTHROMBIN TIME 21.8 SECONDS (9.4-12.5)
[2017-07-11 06:59] LABS: HEMOGLOBIN 9.1 g/dL (14.0-18.0); MEAN CELL VOLUME 75.5 fl (80.0-105.0); MEAN CORPUSCULAR HEMOGLOBIN 24.5 pg (25.0-35.0); MEAN CORPUSCULAR HGB CONC 32.5 g/dl (31.0-37.0); RBC 3.71 10^6/uL (3.5-6.1); RED CELL DISTRIBUTION WIDTH 16.4 % (11.5-14.5); WHITE BLOOD COUNT 13.1 10^3/ul (4.5-11.0)
[2017-07-11 07:36] LABS: ALB/GLOB RATIO 0.9 (1.1-1.8); CALCIUM 8.6 mg/dL (8.4-10.5); MAGNESIUM 1.9 mg/dL (1.7-2.2)
[2017-07-11] MEDS: Insulin Lispro (humaLOG) MEDIUM Coverage SC SCH ×4 (07:44→23:29)
[2017-07-11] MEDS: Albuterol-Ipratrop 3 mg / 0.5 (3 ml) UD IH SCH ×4 (08:33→22:00)
[2017-07-11] MEDS: Iron Complex Polysacch 150mg Cap PO SCH ×2 (09:02→17:40)
[2017-07-11] MEDS: Insulin Detemir 100 units/ml Vial (Levemir) SC SCH ×3 (09:07→17:38)
[2017-07-11] MEDS: Alum-Mag Hydrox-Simethicone Susp (30 mL) PO PRN (10:49)
[2017-07-11] MEDS: Milrinone 20mg/100ml D5W 100 ML IV PRN (15:40)
--- NOTE | 2017-07-11 16:21 | PN ---
DATE: REASON FOR CONSULTATION AND FOLLOWUP: Cardiomyopathy, congestive heart failure, gram negative sepsis, non-sustained VT, systolic heart failure, and acute kidney injury. SUBJECTIVE: The patient denies any chest pain, shortness of breath or any palpitation. Not in apparent distress, feels better. No chest pain. No shortness of breath. PHYSICAL EXAMINATION: VITAL SIGNS: Temperature afebrile, heart rate 108, and blood pressure 112/72. HEENT: PERRLA intact. NECK: Supple. No carotid bruits or thyromegaly. CHEST: Clear to auscultation. HEART: S1 and S2 regular. ABDOMEN: Soft. EXTREMITIES: Clubbing and cyanosis negative. LABORATORY DATA: 1:-00 Blood workup as follows; WBC 13.9, hemoglobin 9.1, hematocrit 28.0, and platelet count 216. Chemistry shows sodium 130, potassium 4, chloride 109, carbon dioxide 27, anion gap of , and creatinine 4.1. IMPRESSION: Acute kidney injury, chronic renal insufficiency, decompensated congestive heart failure, and secondary to systolic dysfunction, coronary artery disease, ischemic cardiomyopathy, status post percutaneous transluminal coronary angioplasty to left anterior descending, status post automatic implantable cardioverter-defibrillator, gram negative sepsis. RECOMMENDATIONS: Continue Coreg as blood pressure is tolerated. Continue Coumadin. Goal is to keep INR between 2. Today's INR is 1.95. Low doses of Primacor is started. Overall, the patient's condition is critical. 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 We will follow with you. Supplement electrolytes as needed. Code status will be DNR. I will discuss with the family. I will repeat the lab in the morning. Thank you Dr. Palacios for providing us the opportunity in taking care of the patient, [place]. Arabella Mathews MD
[2017-07-11] MEDS ORDERED: Iohexol 240 (50 ml) ONE (18:28)
[2017-07-11 18:33] LABS: URINE CREATININE 66.4 mg/dL
[2017-07-11 18:34] LABS: URINE 24 HOUR TOTAL PROTEIN 485 mg/24HR (42-225); URINE COLLECTION TIME 4 HOURS; URINE TOTAL VOLUME 500 mL (800-1400)
--- NOTE | 2017-07-11 20:37 | PN ---
DATE: SUBJECTIVE: The patient is lying in bed comfortable. No distress. Afebrile. 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 The patient is comfortable. No distress. Asking about going home. I explained to him need IV antibiotic for his gram negative sepsis in the blood; otherwise there is no change. PHYSICAL EXAMINATION: VITAL SIGNS: On 07/11/2017, his temperature 98, heart rate 105, blood pressure 112/72, respirations 18, saturation 98% on room air. HEAD AND NECK: Normal. No JVD. No thyromegaly. CHEST: Clear. CARDIAC: First sound and second sound normal. Systolic murmur across the precordium. ABDOMEN: Soft. There is a colostomy bag. EXTREMITIES: No edema. NEUROLOGIC: The patient moves upper extremity. He has some weakness in both lower extremities, left more than right. MENTAL STATUS EXAMINATION: He is alert, awake, oriented x3. LABORATORY DATA: Shows white count 13.1, hemoglobin 9.1, hematocrit 28, platelets 216. His chemistry shows sodium 128, potassium 4, chloride 107,. bicarbonate 17, BUN 76, creatinine 4.1, phosphorus 4.6. Blood sugar 75. Calcium 8.6. Magnesium 1.9. Liver enzyme is normal. The patient also PT/INR, his INR is 1.95, his PT 21.8. IMPRESSION AND PLAN: 1. Gram-negative urosepsis with bacteremia. Continue IV antibiotic, meropenem as per IV consult Dr. Conner. 2. Congestive heart failure, chronic with ischemic cardiomyopathy. Continue milrinone. 3. Hypertension. 4. Tachycardia. Continue Coreg. 5. History of paroxysmal atrial fibrillation. 6. Deep venous thrombosis, continue Coumadin. INR seems 1.95, close to therapeutic range. Continue Coumadin at this time. Continue aspirin in addition to Coumadin. 7. Generalized weakness. 8. Deconditioning, we will continue current therapy. 9. Diabetes. Blood sugar is better. Continue insulin. He is getting 12 units b.i.d. of the Levemir plus Humalog. Continue current medications. The patient is getting Carvedilol, Warfarin, nebulizer treatment, aspirin, Flomax, insulin coverage, Levemir 12 units b.i.d., Maalox, meropenem IV, PhosLo, Primacor IV infusion, Proscar and Tylenol. Dexter Palacios MD
--- NOTE | 2017-07-11 22:59 | PN ---
DATE: 07/08/2017 SUBJECTIVE: The patient seen early this morning. In room 377 bed 2. No fevers and no chills. PHYSICAL EXAMINATION: VITAL SIGNS: Temperature is 98, blood pressure is 112/70, heart rate of 108, respiratory rate of 18. HEENT: Unremarkable. NECK: Supple. LUNGS: Have decreased breath sounds. HEART: Normal S1, S2. ABDOMEN: Soft, nontender. Laboratory examination reveals a white count of 13,000, hemoglobin of 9, platelets of 216. Coagulation is noted. Chemistries reveal a BUN of 76, creatinine of 4.1 and urinalysis is noted. The patient has E. coli in the blood which is meropenem sensitive, intermediate to piperacillin and tazobactam, ESBL positive. In the urine, the patient has klebsiella, pansensitive. Concerning is the patient has two different gram-negatives. We will order a CT scan of the abdomen and pelvis to rule out GI pathology. ASSESSMENT AND PLAN: A 72-year-old male who was seen early this morning in room 377 bed 2 with hypertension, congestive heart failure, coronary artery disease, chronic obstructive lung disease, BPH, DVT, admitted with severe sepsis with ESBL E. coli bacteremia and klebsiella in the urine with acute kidney injury, on meropenem. We will order a CAT scan of the abdomen and pelvis. Since there are two different organisms, concerned about GI pathology and biliary tree is possibly the cause, and we will follow with you. Walt Conner MD
[2017-07-12 07:42] LABS: HEMOGLOBIN 9.1 g/dL (14.0-18.0); MEAN CELL VOLUME 75.3 fl (80.0-105.0); MEAN CORPUSCULAR HEMOGLOBIN 25.2 pg (25.0-35.0); MEAN CORPUSCULAR HGB CONC 33.5 g/dl (31.0-37.0); MEAN PLATELET VOLUME 10.3 fl (7.0-11.0); RBC 3.61 10^6/uL (3.5-6.1); RED CELL DISTRIBUTION WIDTH 16.4 % (11.5-14.5); WHITE BLOOD COUNT 11.2 10^3/ul (4.5-11.0)
[2017-07-12 07:45] LABS: INR 2.25 (0.93-1.08); PROTHROMBIN TIME 25.2 SECONDS (9.4-12.5)
[2017-07-12 07:50] LABS: ALB/GLOB RATIO 0.9 (1.1-1.8); CALCIUM 8.5 mg/dL (8.4-10.5); MAGNESIUM 1.9 mg/dL (1.7-2.2)
--- NOTE | 2017-07-12 08:28 | CT ---
PROCEDURE: CT Abdomen and Pelvis with contrast HISTORY: Fever. Relevant medical history: Lung cancer COMPARISON: 07/10/2017 bilateral renal ultrasound TECHNIQUE: Contrast dose: Oral contrast only. Radiation dose: Total exam DLP = 671.67 mGy-cm. This CT exam was performed using one or more of the following dose reduction techniques: Automated exposure control, adjustment of the mA and/or kV according to patient size, and/or use of iterative reconstruction technique. FINDINGS: LOWER THORAX: Unremarkable. LIVER: 07/02/2016 CT abdomen and pelvis. Unremarkable. No gross lesion or ductal dilatation. GALLBLADDER AND BILE DUCTS: Unremarkable. PANCREAS: Unremarkable. No gross lesion or ductal dilatation. SPLEEN: Unremarkable. ADRENALS: Unremarkable. No mass. KIDNEYS AND URETERS: Unremarkable. No hydronephrosis. No solid mass. Incidental finding(s): Multiple simple and hyperdense renal cysts bilaterally. VASCULATURE: Aorta bi-iliac stent graft identified. [place] aorta 7.1 x 7.7 cm. BOWEL: Status post colon resection with right lower quadrant ostomy. No abnormalities at the ileal colicky anastomosis. Gastric distention without mechanical obstructing lesion. APPENDIX: Normal appendix. PERITONEUM: Unremarkable. No free fluid. No free air. LYMPH NODES: Unremarkable. No enlarged lymph nodes. BLADDER: Air in the urinary bladder likely related to prior instrumentation. REPRODUCTIVE: Unremarkable. BONES: No acute fracture. OTHER FINDINGS: Diffuse anasarca, mild IMPRESSION: No acute findings related to/accounting for the clinical presentation. Additional benign and/or incidental findings described above. No significant interval change compared to the prior examination(s). Concordant results (preliminary interpretation) provided by [employer]. Procedure Completed: 21:21 Preliminary ([facility]) Report: Dictated and Authenticated: 21:43 Final Interpretation: 08:23 July 12, 2017.
[2017-07-12] MEDS: Albuterol-Ipratrop 3 mg / 0.5 (3 ml) UD IH SCH ×4 (08:35→19:42)
[2017-07-12] MEDS: Insulin Lispro (humaLOG) MEDIUM Coverage SC SCH ×4 (08:41→22:34)
[2017-07-12] MEDS: Iron Complex Polysacch 150mg Cap PO SCH ×2 (09:25→17:32)
[2017-07-12] MEDS: Insulin Detemir 100 units/ml Vial (Levemir) SC SCH ×2 (09:26→17:32)
[2017-07-12] MEDS: Alum-Mag Hydrox-Simethicone Susp (30 mL) PO PRN ×2 (09:41→20:55)
--- NOTE | 2017-07-12 11:36 | PN ---
DATE: 07/12/2017 REASON FOR CONSULTATION: Followup cardiomyopathy, congestive heart failure, gram-negative sepsis, non-sustained ventricular tachycardia, heart failure, and acute kidney injury. SUBJECTIVE: The patient denies any chest pain, shortness of breath or any palpitation. OBJECTIVE: GENERAL: Not in apparent distress. Lying flat on the bed. VITAL SIGNS: Temperature afebrile, heart rate 93, and blood pressure 113/74. HEENT: PERRLA. Extraocular muscles intact. NECK: Supple. No carotid bruits or thyromegaly. CHEST: Clear to auscultation. HEART: S1 and S2 regular. ABDOMEN: Soft. EXTREMITIES: Clubbing and cyanosis negative. LABORATORY DATA: Blood workup as follows; WBC 11.8, hemoglobin 9.9, hematocrit 27.2, and platelet count 249. Chemistry shows sodium 137, potassium 4.3, chloride 109, carbon dioxide 18, anion gap of 14, BUN 77, and creatinine 3.9. IMPRESSION: Acute kidney injury on chronic renal insufficiency, acute decompensated congestive heart failure secondary to systolic dysfunction chronic, coronary artery disease, ischemic cardiomyopathy, status post percutaneous transluminal angioplasty of left anterior descending in the past, history of automated implantable cardioverter defibrillator placement, who is admitted with severe sepsis, gram-negative, Escherichia coli in the blood. RECOMMENDATIONS: Continue IV broad-spectrum antibiotic as per ID. Acute kidney injury, the patient is currently on IV Primacor trending down, kidney functions improving. Monitor closely. Continue Coreg as blood pressure is tolerated. We will put digoxin Tuesday, Tuesday, Tuesday. Overall, the patient's condition is critical. Long-term prognosis is extremely guarded. History of colostomy, history of AAA endovascular stent. Continue anticoagulation. We will repeat PT/INR and CBC, CMP in the morning. We will get digoxin level also. Thank you Dr. Palacios for providing us the opportunity in taking care of the patient, [place]. Arabella Mathews MD
[2017-07-12] MEDS: Sodium Chloride 0.45% 1,000 ML IV SCH (13:48)
--- NOTE | 2017-07-12 14:56 | PN ---
DATE: SUBJECTIVE: The patient is currently seen lying supine in bed. He appears to be comfortable. No yves uremic symptoms. According to the patient's , he is taking in very small amounts of food and little liquid. His creatinine has remained stable in the 3.9-4.1 range. IV diuretic therapy was discontinued. The patient is currently off Entresto. He remains on Primacor. He is being treated for E-coli ESBL in the blood and Klebsiella infection in the urine. MEDICATIONS: Medication list reviewed. The patient lately is currently on Coreg, Coumadin, DuoNeb, Ecotrin, Ferrex, Flomax, insulin, Lanoxin, Maalox, meropenem, PhosLo, Primacor, Proscar, and Tylenol p.r.n. OBJECTIVE: INTAKE/OUTPUT: Intake is 252 mL plus urine output not charted. VITAL SIGNS: Blood pressure 110/70, pulse of 113. Temperature 97.7 with a respiratory rate of 18. HEENT: Shows him to be normocephalic, atraumatic. Conjunctivae are pale. Sclerae are nonicteric. NECK: Supple. No neck vein distention. CHEST: Clear to auscultation and percussion with decreased breath sounds at the bases. No rales, rhonchi or wheezing. CARDIOVASCULAR: Shows a regular rate and rhythm with MR/AI/TR. Positive AICD, positive permanent pacemaker. ABDOMEN: Soft. Bowel sounds normal. No rebound, no guarding. Left lower quadrant colostomy appears intact. EXTREMITIES: Show no cyanosis, clubbing or edema. Distal lower extremity pulses are 1-2+. NEUROLOGIC: Shows no asterixis. The patient appears to be alert and oriented. LABORATORY DATA: CBC today white blood cell count 11.2 with a hemoglobin of 9.1, platelet count is 249,000. Chemistries: Sodium 137, potassium 4.3, chloride 109 with a CO2 of 18. BUN 77 with a creatinine of 3.9. The patient's baseline creatinine is in the mid 2 range. His baseline BUN is in the 40s. Glucose was 86. Calcium 8.5, phosphorus 4.6 with a magnesium of 1.9. Albumin is 3.0. 24-hour urine was done. Creatinine clearance is extremely low at 5 mL per minute. I am not certain this is a complete collection. Urine protein is 485 mg. IMAGING STUDIES: Renal ultrasound was essentially unremarkable with the exception of chronic medical renal disease, right kidney 9.2, left kidney 9.2. Abdominal and pelvic CT scan showed no acute findings. Microbiology, urine cultures positive for Klebsiella, blood cultures positive for E-coli ESBL. ASSESSMENT: Acute renal failure superimposed on chronic kidney disease stage IV. The patient's measured creatinine clearance is actually very low at 5 mL per minute. The patient has severe cardiorenal syndrome with an ejection fraction of 15-20%. He is also being treated for an Escherichia coli, bacteremia and a Klebsiella urinary tract infection. The patient's diuretic therapy has been discontinued. The patient's angiotensin receptor yimi therapy had been discontinued. I will discuss with Dr. Mathews the possibility of starting some low volume hydration. Klebsiella UTI, this appears to be recurrent in nature. E-coli ESBL bacteremia. Abdominal pelvic CT ordered by Dr. Conner, Infectious Disease, was negative for biliary tract etiology for his Escherichia coli bacteremia. History of hypertension. Blood pressure control is excellent on current medical therapy. History of atherosclerotic heart disease, status post coronary artery bypass graft, history of cardiomyopathy, ejection fraction low at 15-20%. The patient has an automatic implantable cardioverter defibrillator with a permanent pacemaker. He has valvular heart disease with AI/MR/TR. The patient will continue on Primacor therapy for ionotropic support. He is currently off Entresto and currently off diuretic therapy. History of peripheral vascular disease with aortic abdominal aneurysm status post repair. History of metabolic acidosis, CO2 level was 18. History of mild anemia secondary to chronic renal failure. The patient will continue Aranesp. The patient will also continue oral iron therapy. He will not receive IV iron because of the bacteremia. History of secondary hyperparathyroidism. The patient's phosphorus level was 4.6. The patient will continue a renal diet and binder therapy. History of benign prostatic hypertrophy, currently stable. History of mild hyperlipidemia, stable. PLAN: Discussed with the patient and his in detail. I will discuss with Dr. Mathews his network development coordinator to see whether or not it would be acceptable to start him on low-dose volume hydration. Realizing that we have stopped his angiotensin receptor yimi being part of Entresto, and we have also stopped his diuretic therapy. I do not want to put the patient in CHF. Need to obtain accurate Is and Os, intake and output on the floor. Need to obtain daily weights. Continue IV antibiotic therapy under the guidance of Dr. Conner. Continue to follow labs on a daily basis. Will discuss with Dr. Palacios and Dr. Mathews further management. Mio Stoddard MD
--- NOTE | 2017-07-12 19:00 | PN ---
DATE: 07/12/2017 SUBJECTIVE: The patient is in bed in no acute distress, nontoxic. PHYSICAL EXAMINATION: VITAL SIGNS: Temperature is 98, blood pressure is 112/70, respiratory rate of 18, and heart rate of 100. HEENT: Unremarkable. NECK: Supple. LUNGS: Have decreased breath sounds. HEART: Normal S1, S2. ABDOMEN: Soft, nontender. LABORATORY DATA: Laboratory examination reveals the patient had a CAT scan of the abdomen and pelvis, which showed no acute findings and microbiology reveals ESBL E. coli in the blood cultures. The urine culture is pansensitive to Klebsiella. ASSESSMENT AND PLAN: This is a 72-year-old [place] male who was seen earlier today in room 377, bed 2 with hypertension, congestive heart failure, coronary artery disease, chronic obstructive lung disease, benign prostatic hypertrophy, deep venous thrombosis, admitted with severe sepsis with extended-spectrum beta-lactamases Escherichia coli, bacteremia with Klebsiella in the urine, acute kidney injury on meropenem. We will repeat blood cultures x2. The patient does have a pacemaker. We will see if the bacteremia is cleared since the CAT scan of the abdomen is negative and we will follow closely with you. Walt Conner MD
[2017-07-12] MEDS: Milrinone 20mg/100ml D5W 100 ML IV PRN (22:37)
[2017-07-13 08:06] LABS: ALB/GLOB RATIO 0.9 (1.1-1.8); CALCIUM 8.7 mg/dL (8.4-10.5); MAGNESIUM 2.2 mg/dL (1.7-2.2)
[2017-07-13] MEDS: Insulin Lispro (humaLOG) MEDIUM Coverage SC SCH ×4 (08:15→22:19)
[2017-07-13] MEDS: Albuterol-Ipratrop 3 mg / 0.5 (3 ml) UD IH SCH ×4 (08:20→20:54)
--- NOTE | 2017-07-13 09:43 | PN ---
DATE: 07/12/2017 SUBJECTIVE: A 72-year-old male, admitted with sepsis. The patient seems comfortable in the bed, is better clinically and seems hemodynamically stable. Still on IV meropenem. PHYSICAL EXAMINATION: VITAL SIGNS: The patient is afebrile. Temperature is 98.2, heart rate 112, blood pressure 115/45, respirations 20, and saturation 99% on room air. HEAD AND NECK: Normal. No JVD. No thyromegaly. CHEST: Clear. Good air entry. CARDIAC: First sound and second sound normal. ABDOMEN: Soft, obese, and nontender. There is a colostomy bag. EXTREMITIES: No edema. NEUROLOGIC: Normal. Has general weakness. Has a little movement in the lower extremities but he does move his upper extremities. LABORATORY STUDIES: Show white count 11.2, hemoglobin 9.1, hematocrit 27.2, platelets 249. Chemistries: Sodium 137, potassium 4.3, chloride 109, bicarb 18, BUN 77, creatinine 3.9. Blood sugar 86. Magnesium 1.9. CURRENT MEDICATIONS: The patient is getting Coreg 25 mg b.i.d., Coumadin 2 mg p.o. daily, nebulizer treatment, iron pills, Flomax, Humalog insulin, Lanoxin, Levemir 12 units b.i.d., sodium chloride, PhosLo, Primacor, Proscar, and Tylenol. IMPRESSION: 1. Gram-negative sepsis. Continue IV meropenem. Continue current therapy. 2. Congestive heart failure, chronic systolic and diastolic heart failure. Continue IV milrinone. 3. Chronic renal insufficiency, seems better improving. The patient off Entresto because of high rise in creatinine. We will follow up with Nephrology consult. 4. Diabetes insulin dependent. Blood sugar seems stable. Continue current therapy. 5. The patient has lung mass malignancy, being treated, stable at this time. Continue current supportive therapy and follow up clinically. 6. The patient has Klebsiella pneumonia in the urine and he has Escherichia coli in the blood culture. Continue IV meropenem. Dexter Palacios MD
[2017-07-13] MEDS: Insulin Detemir 100 units/ml Vial (Levemir) SC SCH ×2 (10:07→17:35)
[2017-07-13] MEDS: Iron Complex Polysacch 150mg Cap PO SCH ×2 (10:08→17:34)
[2017-07-13] MEDS: Digoxin 125 mcg (0.125 mg) Tab PO SCH (10:08)
--- NOTE | 2017-07-13 11:33 | PN ---
DATE: 07/13/2017 REASON FOR CONSULTATION AND FOLLOWUP: Cardiomyopathy, congestive heart failure, sepsis, non-sustained VT, heart failure, and acute kidney injury. SUBJECTIVE: The patient denies any chest pain, shortness of breath or any palpitation. PHYSICAL EXAMINATION: GENERAL: Lying flat on the bed, not in apparent distress. VITAL SIGNS: As follows, temperature afebrile, heart rate 105, and blood pressure 116/74. HEENT: PERRLA. Extraocular muscles intact. NECK: Supple. No carotid bruits or thyromegaly. CHEST: Clear to auscultation. HEART: S1 and S2 regular. ABDOMEN: Soft. EXTREMITIES: Clubbing and cyanosis negative. LABORATORY DATA: WBC 11.8, hemoglobin 9.9, hematocrit 27.2, and platelet count 249. Chemistry shows sodium 130, potassium 4.6, chloride 109, carbon dioxide 18, anion gap of 16, BUN 80, and creatinine 3.7. IMPRESSION: Acute kidney injury on chronic renal insufficiency, gram-negative sepsis, ischemic cardiomyopathy, severely decreased left ventricular function, ejection fraction 15%, coronary artery disease status post percutaneous transluminal angioplasty of left anterior descending in the past, history of automatic implantable cardioverter defibrillator placement, Escherichia coli in the blood, history of colostomy for diverticular colonic disease, history of endovascular repair. RECOMMENDATIONS: Broad-spectrum antibiotic. Continue IV Primacor to improve the kidney function as well as improvement in the cardiac output. Continue low-dose of digoxin. Yesterday, discussed with Dr. Stoddard, who started low-dose of IV fluid, renal function started improving. Continue anticoagulation. Continue Coreg. Repeat the blood workup in the morning. We will follow with you. Today, awaiting for the dig level to be back. Thank you Dr. Palacios for providing us the opportunity in taking care of the patient, [place]. We will repeat PT/INR in the morning. Arabella Mathews MD
--- NOTE | 2017-07-13 12:53 | PN ---
DATE: SUBJECTIVE: The patient is currently seen lying supine in bed. He appears to be entirely comfortable. No uremic symptoms. Creatinine is edging downward with cautious IV fluid hydration. Creatinine is 3.7. The patient was started on IV fluid hydration cautiously yesterday. He remains on Primacor for inotropic support and he remains on antibiotics for his E. coli, ESBL, septicemia, and Klebsiella in his urine. MEDICATIONS: Medication list reviewed. The patient is currently on Coreg, Coumadin, DuoNeb, Ecotrin, oral iron, Flomax, insulin, Lanoxin, Maalox, meropenem, PhosLo, Primacor drip, half-normal saline at 50 mL an hour, Proscar, and p.r.n. Tylenol. OBJECTIVE: INTAKE/OUTPUT: Intake charted at 15:19, output is not charted. VITAL SIGNS: Blood pressure is 125/87 with a respiratory rate of 20, heart rate is 107 with a temperature of 98 degrees Fahrenheit. HEENT: Normocephalic, atraumatic. Conjunctivae are pale. Sclerae are nonicteric. NECK: Supple. No neck vein distention. CHEST: Clear to auscultation and percussion with decreased breath sounds at bases. No rales. No rhonchi or wheezing. CARDIOVASCULAR: Shows a regular rate and rhythm with MR/AI/TR. Positive AICD/permanent pacemaker. ABDOMEN: Soft. Bowel sounds normal. No rebound. No guarding. No masses. He has a left lower quadrant colostomy which appears intact. EXTREMITIES: Show no cyanosis, clubbing, or edema. Distal lower extremity pulses are 1 to 2+. NEUROLOGIC: Shows him to be alert, oriented. No focal deficits, and no asterixis. LABORATORY DATA: CBC: White blood cell count today 11.2 with hemoglobin of 9.1, platelet count of 249,000. Chemistries: Sodium 139, potassium 4.7, chloride 109 with CO2 of 18. Anion gap is 16. BUN remains mildly elevated at 80. Creatinine is 3.7, which is fallen from a maximum of 4.1. His baseline creatinine is 2.5. His baseline BUN is in the 40s. Glucose is 118. Calcium 8.7, phosphorus 4.6, magnesium 2.2, albumin level is 3.0. 24-hour urine showed a creatinine clearance of 5 mL a minute, likely an incomplete collection, urine protein was 485 mg done on 07/11/2017. IMAGING STUDIES: Renal ultrasound done is essentially unremarkable with the exception of chronic medical renal disease. Microbiology: Urine cultures are positive for Klebsiella. Blood cultures are positive for E-coli ESBL. ASSESSMENT: 1. Acute renal failure superimposed on chronic kidney disease stage IV. The patient has been started on cautious IV fluid hydration after my discussion with Dr. Mathews. We need accurate inputs and outputs. We need to be cautious not to over hydrate the patient. We will accept a slow decline in his creatinine level. The patient has no uremic symptoms and there are no plans for dialysis presently. 2. Escherichia coli urinary tract infection. This appears to be recurrent in nature with an Escherichia coli extended-spectrum beta-lactamase bacteremia. Negative abdominal and pelvic CT scan. No evidence for biliary tract disease. 3. History of hypertension. Blood pressure control is excellent on current medication. 4. History of arteriosclerotic heart disease status post coronary artery bypass graft, history of cardiomyopathy, ejection fraction 15-20%. Positive automated implantable cardioverter defibrillator/permanent pacemaker. He has valvular heart disease aortic insufficiency/mitral regurgitation/tricuspid regurgitation . The patient will continue on Primacor therapy under the guidance of Dr. Mathews. We will currently keep him off Entresto and currently keep him off diuretic therapy because of the elevated BUN and creatinine. 5. History of peripheral vascular disease with aortic abdominal aneurysm, status post repair. 6. History of mild anemia secondary to chronic kidney disease. The patient will continue Aranesp. We will also continue oral iron therapy. His iron saturations were very low, but in light of his bacteremia, no IV Venofer. 7. History of secondary hyperparathyroidism. PTH levels have been elevated in the past. Phosphorus level is 4.6. The patient will continue binder therapy. 8. History of BPH, currently stable. 9. History of mild hyperlipidemia. PLAN: 1. Need to monitor accurate I's and O's. Discussed with staff on 3R the patient has intermittent bouts of incontinence. I have encouraged them to try and obtain urine for measurement. No plans to place a Grimaldo catheter. 2. Continue IV antibiotic therapy under the guidance of Dr. Conner. 3. Need to monitor labs on a daily basis. 4. Continue inotropic support as per Cardiology's recommendation. 5. For right now, continue to hold Entresto and hold diuretic therapy. 6 Continue to monitor the patient on telemetry. Moi Stoddard MD MTDJosé Antonio
[2017-07-13 14:05] LABS: HEMOGLOBIN 9.7 g/dL (14.0-18.0); MEAN CELL VOLUME 75.9 fl (80.0-105.0); MEAN CORPUSCULAR HEMOGLOBIN 25.1 pg (25.0-35.0); MEAN CORPUSCULAR HGB CONC 33.1 g/dl (31.0-37.0); MEAN PLATELET VOLUME 9.8 fl (7.0-11.0); RBC 3.86 10^6/uL (3.5-6.1); RED CELL DISTRIBUTION WIDTH 16.4 % (11.5-14.5)
[2017-07-13 14:22] LABS: INR 2.55 (0.93-1.08); PROTHROMBIN TIME 28.6 SECONDS (9.4-12.5)
[2017-07-13] MEDS: Alum-Mag Hydrox-Simethicone Susp (30 mL) PO PRN (15:11)
[2017-07-13] MEDS: Pantoprazole 20 mg EC Tab PO SCH (19:39)
[2017-07-13] MEDS: Milrinone 20mg/100ml D5W 100 ML IV PRN (19:39)
--- NOTE | 2017-07-14 00:04 | PN ---
DATE: SUBJECTIVE: The patient is comfortable. Sitting on the chair. No distress. Getting IV meropenem. The patient has no nausea, no vomiting, or no distress. PHYSICAL EXAMINATION: VITAL SIGNS: Temperature 97, heart rate 102, respiration is 18, blood pressure 116/68, and saturation 99%. HEAD AND NECK: Normal. No JVD. No thyromegaly. CHEST: Clear. Good air entry. CARDIAC: First sound and second sound normal. Systolic murmur. ABDOMEN: Soft, benign. He does have colostomy bag. EXTREMITIES: No edema. NEUROLOGIC: The patient is weak on the left side, but moves all extremities. LABORATORY STUDIES: Noted for PT 28.6, INR 2.55. Chemistry shows sodium 139, potassium 4.7, chloride 109, bicarb 18, BUN 80, and creatinine 3.7. Blood sugar 118. Liver enzymes are normal. CBC, white blood cells 11, hemoglobin 9.7, hematocrit 29.3, and platelets 328,000. IMPRESSION AND PLAN: 1. Gram negative bacteremia, gram negative sepsis. Continue intravenous meropenem as per Infectious Disease consult Dr. Conner. Continue followup on daily basis. 2. Ischemic cardiomyopathy, congestive heart failure, chronic systolic heart failure, continue intravenous milrinone. Continue digoxin, beta-yimi and Coreg. 3. Chronic renal failure with acute worsening. Continue PhosLo and will follow up clinically. His repeat creatinine is better at 3.7. Continue PhosLo and we will follow up on that. 4. Diabetes, insulin dependent. Sugar runs okay, reasonably. We will continue Levemir 12 units subcu b.i.d. 5. The patient also has chronic atrial fibrillation, hypertension, anemia, and prostate enlargement. Continue Coumadin, aspirin, iron pills, Flomax, Tylenol, Protonix, and Proscar. Follow up clinically. Dexter Palacios MD
--- NOTE | 2017-07-14 00:51 | PN ---
DATE: 07/13/2017 SUBJECTIVE: The patient was seen early this morning, in no acute distress, nontoxic. No fever or chills. PHYSICAL EXAMINATION: VITAL SIGNS: Temperature is 98, blood pressure is 120/70, respiratory rate of 20, heart rate of 105. HEENT: Unremarkable. NECK: Supple. LUNGS: Decreased breath sounds. HEART: Normal S1 and S2. ABDOMEN: Soft, nontender. LABORATORY EXAMINATION: Reveals white count of 11,000, hemoglobin of 9, platelets of 328. BUN of 80, creatinine of 3.7. Urinalysis is noted. Microbiology reveals the blood cultures are ESBL, positive E. Coli in the blood, and pansensitive Klebsiella in the urine. Repeat blood cultures are pending. The patient also had a CAT scan of the abdomen and pelvis, which showed no findings. Blood cultures were ordered yesterday, but were canceled by the laboratory department, reason unclear. ASSESSMENT AND PLAN: This is a 72-year-old male, [place], who was seen earlier this morning with history of hypertension, congestive heart failure, coronary artery disease, chronic obstructive lung disease, benign prostatic hypertrophy, deep venous thrombosis, admitted with severe sepsis with extended-spectrum beta-lactamases, Escherichia coli, bacteremia, Klebsiella in the urine, acute kidney injury on meropenem. We will check on repeat blood cultures, concern about a pacemaker infection. Dr. Mathews's note is reviewed. We will make further recommendations upon availability of repeat blood cultures. Walt Conner MD
[2017-07-14] MEDS ORDERED: Pantoprazole 20 mg EC Tab PO SCH ×2 (06:00→18:42)
[2017-07-14] MEDS: Pantoprazole 20 mg EC Tab PO SCH (06:25)
[2017-07-14 06:49] LABS: HEMOGLOBIN 8.7 g/dL (14.0-18.0); MEAN CELL VOLUME 76.3 fl (80.0-105.0); MEAN CORPUSCULAR HEMOGLOBIN 24.9 pg (25.0-35.0); MEAN CORPUSCULAR HGB CONC 32.6 g/dl (31.0-37.0); MEAN PLATELET VOLUME 9.8 fl (7.0-11.0); RBC 3.5 10^6/uL (3.5-6.1); RED CELL DISTRIBUTION WIDTH 16.6 % (11.5-14.5); WHITE BLOOD COUNT 8.6 10^3/ul (4.5-11.0)
[2017-07-14 07:05] LABS: ALB/GLOB RATIO 0.8 (1.1-1.8); ALBUMIN 2.9 g/dL (3.0-4.8); CALCIUM 8.5 mg/dL (8.4-10.5)
[2017-07-14 07:20] LABS: INR 3.13 (0.93-1.08); PROTHROMBIN TIME 35.2 SECONDS (9.4-12.5)
[2017-07-14] MEDS: Albuterol-Ipratrop 3 mg / 0.5 (3 ml) UD IH SCH ×4 (07:40→20:43)
[2017-07-14] MEDS: Insulin Lispro (humaLOG) MEDIUM Coverage SC SCH ×4 (08:01→21:58)
--- NOTE | 2017-07-14 10:45 | PN ---
DATE: SUBJECTIVE: The patient appears to be comfortable. He is currently seen en route to having an echocardiogram. BUN and creatinine are edging downward with very cautious IV fluid hydration. BUN is 73 today with a creatinine of 3.5. He remains on Primacor for ionotropic support. He remains on IV fluid hydration because oral intake is poor. He remains on antibiotic therapy for his E-coli, ESBL, septicemia and Klebsiella in his urine. MEDICATIONS: Medication list reviewed. The patient is currently on Coreg, Coumadin, DuoNeb, Ecotrin, iron, Flomax, insulin, Lanoxin, Maalox, meropenem, PhosLo, Primacor, Protonix, half-normal saline 50 mL an hour, and Tylenol. OBJECTIVE: INTAKE/OUTPUT: Intake recorded at 1532, output once again not charted. VITAL SIGNS: Blood pressure 122/78, respiratory rate 20, temperature 97.7, heart rate is 109. HEENT: Normocephalic, atraumatic. Conjunctivae pale. Sclerae are nonicteric. NECK: Supple. No neck vein distention. CHEST: Clear to auscultation and percussion with decreased breath sounds at the bases. No rales, no rhonchi or wheezing. CARDIOVASCULAR: Shows a regular rate and rhythm with MR/AI/TR. Positive AICD, permanent pacemaker. ABDOMEN: Soft. Bowel sounds normal. No rebound or guarding. No masses. Has a left lower quadrant colostomy which appears stable and intact. EXTREMITIES: No cyanosis, clubbing or edema. Distal lower extremity pulses are reduced. LABORATORY DATA: CBC: White blood cell count of 8.6, back to normal; hemoglobin 8.7, drifting downward; platelet count is 321,000. Chemistries: Sodium 136, potassium 4.8, chloride 110 with a CO2 of 19, BUN is 73 with a creatinine of 3.5. Glucose is 104. Calcium last check was 8.5. Previous day, phosphorus level was 4.6 with a magnesium of 2.2. Albumin level is 2.9. Microbiology: Blood cultures are positive for E. coli ESBL. Urine cultures are positive for Klebsiella. A 24-hour urine was done, likely showed an under collection of urine with a creatinine clearance of 5 mL per minute and urine protein of 485 mg done on 07/11/2017. IMAGING STUDIES: Renal ultrasound done previously was unremarkable with the exception of chronic medical renal disease. ASSESSMENT: 1. Acute renal failure superimposed on chronic kidney disease stage IV. He has a trend downward in his BUN and creatinine with cautious IV fluid hydration. The patient has advanced cardiorenal syndrome and exacerbation and elevation of his BUN and creatinine in the setting of septicemia and a urinary tract infection. Presently, the patient has no uremic symptoms and at present, there are no plans for renal replacement therapy. 2. History of Klebsiella urinary tract infection. This appears to be recurrent. The patient is on IV antibiotic therapy. 3. Escherichia coli, extended-spectrum beta-lactamase, septicemia. The patient continues on IV antibiotic therapy. 4. History of hypertension. Blood pressure is controlled on present medication. 5. History of atherosclerotic heart disease, status post coronary artery bypass graft surgery, history of cardiomyopathy, ejection fraction 15-20%. The patient has an automatic implantable cardioverter defibrillator and permanent pacemaker. He does have valvular heart disease, aortic insufficiency/mitral regurgitation/tricuspid regurgitation. The patient will continue on Primacor under the guidance of Dr. Mathews. He will remain off of Entresto because it contains an angiotensin receptor yimi and his BUN and creatinine were elevated. The patient will remain off diuretic therapy at this point in time. Unfortunately, we are not able to get accurate Is and Os on 3 R. 6. History of peripheral vascular disease, history of aortic abdominal aneurysm status post repair. 7. History of mild anemia secondary to chronic kidney disease. The patient will continue oral iron and Aranesp. His iron saturations were low. Because of the bacteremia, there are presently no plans for IV Venofer administration. We had doubled his oral iron supplements twice a day. 8. History of secondary hyperparathyroidism. PTH levels have been elevated in the past. Phosphorus level is 4.6. The patient will continue binder therapy. He remains on PhosLo 667 mg three times a day. 9. History of benign prostatic hypertrophy, stable. 10. History of mild hyperlipidemia. PLAN: 1. The patient is en route for an echocardiogram. 2. Continue cautious IV fluid hydration along with ionotropic support with Primacor. 3. Continue treating his Escherichia coli bacteremia and Klebsiella urinary tract infection with present antibiotic therapy. 4. Continue to hold off on Entresto and hold diuretic therapy. 5. Again, hoping to see continued decline in BUN and creatinine back to his baseline range. His baseline BUN is in the 40s with a creatinine in the mid 2 range. 6. Discussed with staff on 3 R and with in detail. Mio Stoddard MD
[2017-07-14] MEDS: Iron Complex Polysacch 150mg Cap PO SCH ×2 (10:54→17:47)
[2017-07-14] MEDS: Insulin Detemir 100 units/ml Vial (Levemir) SC SCH ×2 (10:55→17:47)
--- NOTE | 2017-07-14 15:27 | PN ---
DATE: 07/14/2017 REASON FOR THE CONSULTATION AND FOLLOWUP: Cardiomyopathy, congestive heart failure, sepsis, non-sustained VT, heart failure, and acute kidney injury, on IV fluid. SUBJECTIVE: The patient denies any chest pain, shortness of breath, or any palpitations. is at the bedside. OBJECTIVE: GENERAL: Not in apparent distress. Coming back after an echocardiography. VITAL SIGNS: Temperature afebrile, heart rate is 104, and blood pressure 115/70. HEENT: PERRLA. Extraocular muscles intact. NECK: Supple. No carotid bruits or thyromegaly. CHEST: Clear to auscultation. HEART: S1 and S2 regular. ABDOMEN: Soft. EXTREMITIES: Clubbing and cyanosis negative. LABORATORY DATA: WBC 8.6, hemoglobin 8.7, hematocrit 26.7, and platelet count 321. Chemistry shows sodium 130, potassium 4.8, chloride 110, carbon dioxide 19, anion gap of 14, BUN 73, creatinine 3.5, total protein 6.2, albumin 2.9, and albumin-globin ratio is 0.8. IMPRESSION: Acute kidney injury on chronic renal insufficiency, cardiomyopathy ischemic, on Primacor, diabetes, hypertension, hyperlipidemia, history of colon, status post colectomy and colostomy, history of percutaneous transluminal coronary angioplasty of left anterior descending many years ago, history of endovascular abdominal aortic aneurysm repair, admitted with Gram-negative sepsis and decompensated congestive heart failure secondary to systolic dysfunction, last ejection fraction 15%. RECOMMENDATIONS: Broad-spectrum antibiotics. Continue IV Primacor. Continue gentle diuretics. We will monitor electrolytes. We will continue digoxin. I discussed the . The patient is to continue gentle hydration. Continue Coreg. We will follow the echo when it is done. We will follow with you. Thank you Dr. Romero for providing us the opportunity in taking care of the patient. Monitor electrolytes closely. BUN and creatinine are improving. Creatine kinase is 17 mL. Creatinine yesterday was 3.7. Today it is 3.5 trending down. Overall, the patient's condition is critical. Long-term prognosis is extremely guarded. I discussed with the . We will repeat the blood workup in a day or two. On admission, the patient had one blood culture positive, second one was negative. Repeat culture was done, it is pending. Arabella Mathews MD [facility] # [id number]
[2017-07-14] MEDS: Milrinone 20mg/100ml D5W 100 ML IV PRN (16:19)
[2017-07-14] MEDS: Sodium Chloride 0.45% 1,000 ML IV SCH (16:24)
--- NOTE | 2017-07-14 16:36 | CARD ---
APPROVED REPORT EXAM: Two-dimensional and M-mode echocardiogram with Doppler and color Doppler. INDICATION Infection:Rule out subacute bacterial endocarditis 2D DIMENSIONS Left Atrium (2D)5.2 (1.6-4.0cm)IVSd1.3 (0.7-1.1cm) LVDd5.9 (3.9-5.9cm)PWd1.3 (0.7-1.1cm) LVDs5.4 (2.5-4.0cm)FS (%) 8.8 % LVEF (%)19.0 (>50%) M-Mode DIMENSIONS Aortic Root3.70 (2.2-3.7cm)Aortic Cusp Exc.1.90 (1.5-2.0cm) Aortic Valve AoV Peak Qnroryfl802.0cm/Nathalie Peak GR.5mmHgAI P 1/2 [id number] Mitral Valve E/A ratio0.0 TDI E/Lateral E'0.0E/Medial E'0.0 Pulmonary Valve PV Peak Fhmwxfip73.2cm/sPV Peak Grad.1mmHg Tricuspid Valve TR Peak Nkduijwa951ft/sRAP [id number] Peak Gr.41mmHg [id number] LEFT VENTRICLE The Left Ventricle is mildly dilated. There is mild concentric left ventricular hypertrophy. The systolic function is severely impaired. There is global hypokinesis of the left ventricle. No left ventricle thrombus noted on this study. RIGHT VENTRICLE The right ventricle is borderline dilated. There is normal right ventricular wall thickness. RV Systolic function is mildly reduced. ATRIA The left atrium is moderately dilated. The right atrium is mildly dilated. AORTIC VALVE The aortic valve is moderately thickened. There is mild aortic regurgitation. MITRAL VALVE The mitral valve is moderately thickened. Mitral regurgitation is severe. TRICUSPID VALVE There is moderate tricuspid regurgitation. There is moderate pulmonary hypertension. GREAT VESSELS The aortic root is normal in size. The IVC collapses <50% with inspiration. <Conclusion> The Left Ventricle is mildly dilated. There is mild concentric left ventricular hypertrophy. The systolic function is severely impaired. There is global hypokinesis of the left ventricle. The aortic valve is moderately thickened. There is mild aortic regurgitation. Mitral regurgitation is severe. There is moderate tricuspid regurgitation. There is moderate pulmonary hypertension. If Endocarditis is clinically suspicious, Conside SERGO to further evaluate the valvular structures and the ICD lead
--- NOTE | 2017-07-14 19:03 | PN ---
DATE: 07/14/2017 SUBJECTIVE: The patient is in bed, in no acute distress, nontoxic. PHYSICAL EXAMINATION VITAL SIGNS: Temperature is 98, blood pressure is 115/70, respiratory rate of 16. HEENT: Unremarkable. NECK: Supple. LUNGS: Have decreased breath sounds. HEART: Normal S1, S2. ABDOMEN: Soft. LABORATORY DATA: Reveals a white count of 8.6, hemoglobin of 8. BUN of 73, creatinine of 3.5. Urinalysis is noted and microbiology reveals the repeat blood cultures are no growth. ASSESSMENT AND PLAN: This is a 72-year-old male who is originally from [place], is seen early this morning with hypertension, congestive heart failure, coronary artery disease, chronic obstructive lung disease, benign prostatic hypertrophy, deep venous thrombosis, admitted with severe sepsis with ESBL Escherichia coli bacteremia and Klebsiella in the urine, acute kidney injury, on meropenem and concerned about the pacemaker. We will check on the echocardiogram, today is day #2 of 10 days of meropenem. Walt Conner MD
[2017-07-15] MEDS: Pantoprazole 20 mg EC Tab PO SCH (05:21)
[2017-07-15 07:03] VITALS: TEMP 97.6
[2017-07-15 07:43] LABS: BASO # 0.02 K/mm3 (0.0-2.0); BASO % 0.3 % (0.0-3.0); EOS # 0.3 (0.0-0.7); GRAN # 4.28 (1.4-6.5); GRAN % 71.4 % (50.0-68.0); HEMOGLOBIN 8.6 g/dL (14.0-18.0); LYMPH # 0.7 (1.2-3.4); LYMPH % 12.4 % (22.0-35.0); MEAN CELL VOLUME 76.6 fl (80.0-105.0); MEAN CORPUSCULAR HEMOGLOBIN 24.5 pg (25.0-35.0); MEAN PLATELET VOLUME 9.8 fl (7.0-11.0); MONO # 0.7 (0.1-0.6); MONO % 10.9 % (1.0-6.0); RBC 3.51 10^6/uL (3.5-6.1); RED CELL DISTRIBUTION WIDTH 16.4 % (11.5-14.5)
[2017-07-15] MEDS: Insulin Lispro (humaLOG) MEDIUM Coverage SC SCH ×2 (07:44→11:40)
[2017-07-15 07:55] LABS: ALB/GLOB RATIO 0.9 (1.1-1.8); ALBUMIN 2.9 g/dL (3.0-4.8); CALCIUM 8.5 mg/dL (8.4-10.5)
[2017-07-15] MEDS: Albuterol-Ipratrop 3 mg / 0.5 (3 ml) UD IH SCH ×2 (08:02→11:11)
[2017-07-15] MEDS: Milrinone 20mg/100ml D5W 100 ML IV PRN (08:28)
[2017-07-15] MEDS: Insulin Detemir 100 units/ml Vial (Levemir) SC SCH (10:00)
[2017-07-15] MEDS: Digoxin 125 mcg (0.125 mg) Tab PO SCH (11:11)
[2017-07-15] MEDS: Iron Complex Polysacch 150mg Cap PO SCH (11:11)
[2017-07-15 11:12] VITALS: BP 128/84; PULSE 114
[2017-07-15 12:48] VITALS: RESP 18; O2SAT 94
[2017-07-15 13:52] VITALS: PULSE 110
--- NOTE | 2017-07-15 14:21 | PN ---
DATE: 07/15/2017 SUBJECTIVE: The patient is in bed in no acute distress. Nontoxic. PHYSICAL EXAMINATION: VITAL SIGNS: Temperature is 97, blood pressure is 120/70, respiratory rate of 16. HEENT: Unremarkable. NECK: Supple. LUNGS: Decreased breath sounds. HEART: Normal S1 and S2. ABDOMEN: Soft and nontender. LABORATORY DATA: Reveals a white count of 6, hemoglobin of 8, platelets of 325. Chemistries reveal BUN of 70, creatinine of 3.2, and urinalysis is noted. Microbiology reveals E. Coli in the blood. Repeat blood cultures are negative. ASSESSMENT AND PLAN: This is a 72-year-old male who is originally from [place]. He has a history of hypertension, congestive heart failure, coronary artery disease, chronic obstructive lung disease, benign prostatic hyperplasia, and deep vein thrombosis, admitted with severe sepsis, extended-spectrum beta-lactamases, Escherichia coli, Klebsiella in the urine, acute kidney injury on meropenem, today is day #3 of 10 days. Repeat blood cultures are negative. The patient had an echo which showed mitral regurgitation with severe mild aortic regurgitation, aortic valve is moderately thickened. Dr. Cowan states if endocarditis is clinically suspicious, consider transesophageal echocardiography and is reviewed. Complete 10 days of meropenem. Today is day #3 of 10 days. Walt Conner MD
--- NOTE | 2017-07-15 18:17 | CARD ---
APPROVED REPORT EKG Measurement Heart [id number] <Conclusion> Sinus tachycardia with first degree AV Block Rightward axis Abnormal QRS-T angle, consider primary T wave abnormality Abnormal ECG
--- NOTE | 2017-07-15 18:49 | PN ---
DATE: 07/15/2017 The patient is in room 377, bed 2. REASON FOR CONSULTATION AND FOLLOWUP: Cardiomyopathy, congestive heart failure, sepsis, nonsustained VT, heart failure, acute kidney injury. SUBJECTIVE: The patient lying flat in bed without chest pain, shortness of breath, or palpitation. PHYSICAL EXAMINATION: VITAL SIGNS: Pulse 108 per minute, blood pressure 128/84, respirations 18, and the patient afebrile. HEENT: Head is normocephalic. Eyes: Pupils are normal. Conjunctivae slightly pale. NECK: JVP low. Carotids are equal. THORAX: AP diameter normal. LUNGS: Clear. CARDIOVASCULAR: S1 and S2. EXTREMITIES: No clubbing. No cyanosis. LABORATORY DATA: WBC 6.0, hemoglobin 8.6, hematocrit 26.9, and platelet 325. Sodium 136, potassium 5.1, BUN 70, creatinine 3.2, sugar 176. DIAGNOSES: Acute kidney injury; acute on chronic renal insufficiency; cardiomyopathy, ischemic type; diabetes; hypertension; hyperlipidemia; history of colon surgery, status post colectomy and colostomy; history of coronary angioplasty and stent insertion to left anterior descending coronary artery many years ago; history of abdominal aortic aneurysm, endovascular repair, admitted with gram-negative sepsis and decompensated congestive heart failure secondary to systolic dysfunction. Last echo showed ejection fraction of 15%. The patient is on carvedilol 25 b.i.d. The patient is also getting IV fluids at 50 mL an hour; aspirin 81 daily; digoxin 0.125 Tuesday, Tuesday and Tuesday; insulin as ordered. The patient is on Primacor drip. The patient mild sinus tachycardia, multifactorial; significant anemia; renal failure; cardiomyopathy. We will continue present therapy. We will follow. Arabella Lopez MD
--- NOTE | 2017-07-15 22:47 | PN ---
DATE: 07/14/2017 SUBJECTIVE: The patient is clinically stable, no new complaints, on IV meropenem. OBJECTIVE: VITAL SIGNS: Temperature 98.1, heart rate 106, blood pressure 125/79, and respirations 20. HEAD AND NECK: Normal. No JVD. No thyromegaly. CHEST: Clear. Good air entry. CARDIAC: First sound and second sound normal, a systolic murmur across the precordium. ABDOMEN: Soft. Colostomy bag. EXTREMITIES: No edema. NEUROLOGIC: The patient is weak on both lower extremities, but move upper extremities. He is alert, awake and oriented x3. LABORATORY DATA: The patient's laboratory study on 07/14/2017, white count 8.6, hemoglobin 8.7, hematocrit 26.7, platelets 321. Chemistry shows sodium 136, potassium 4.8, chloride 110, bicarbonate 19, BUN 73, creatinine 3.5. Blood sugar 104. IMPRESSION AND PLAN: 1. Gram-negative sepsis, Klebsiella pneumoniae urinary tract infection. Continue IV meropenem and follow up clinically. The patient will need another 8 days of IV antibiotic as per Infectious Disease consultation and he has positive bacteremia and sepsis. 2. Ischemic cardiomyopathy. Continue IV milrinone. 3. Hypertension, stable. 3. Cardiac status stable. Continue carvedilol 25 mg b.i.d. 4. Chronic atrial fibrillation, history of deep venous thrombosis, continue Coumadin 2 mg daily. 5. Anemia, chronic. Continue iron pills. 6. Chronic renal failure, creatinine runs between 2.5, 3 to 3.5 range. We will continue to monitor his creatinine. We will repeat lab in the morning. 7. History of abdominal aortic aneurysm, history of bowel resection, colostomy, prostate enlargement. Continue current therapy and follow up clinically. Dexter Palacios MD
--- NOTE | 2017-07-16 04:36 | DS ---
HOSPITAL COURSE: The patient is a 72-year-old male with history of ischemic cardiomyopathy, admitted with urinary tract infections, urosepsis, gram-negative bacteremia. The patient was seen by ID consult, given IV meropenem. The patient seems improving, fever started to improve, and the patient seems doing well, will be transferred to TCU for continuation of IV antibiotics. The patient is currently on IV milrinone for his cardiac status. He is seen by Cardiology, Dr. Cowan and Dr. Mathews. He is also seen by ID consult Dr. Conner. The patient also followed up by the Renal consult, Dr. Stoddard and Dr. Sesay, he is the covering physician. The patient seems doing well. We will transfer the patient to TCU for continuation of therapy. PHYSICAL EXAMINATION: VITAL SIGNS: On discharge date, which is 07/15/2017, the patient has been afebrile, temperature 98, pulse rate 110, blood pressure is 128/84, and respiration 18. HEAD AND NECK: Normal. No JVD. No thyromegaly. CHEST: Clear with good air entry. CARDIAC: First sound and second sound normal, a systolic murmur across the precordium. ABDOMEN: Soft, colostomy bag. EXTREMITIES: No edema. NEUROLOGIC: He has weak lower extremities, and the patient is alert, awake, and oriented x3 while he is in the hospital. DISCHARGE DIAGNOSES: 1. Urosepsis. 2. Bacteremia. 3. Urinary tract infection. 4. Ischemic cardiomyopathy. 5. History of deep venous thrombosis and atrial fibrillation. 6. Anemia. 7. Chronic renal failure with acute worsening. 8. Chronic obstructive pulmonary disease. 9. Lung mass and lung cancer, stable. PLAN: Continue current therapy, follow up clinically, we will discharge the patient to TCU. Dexter Palacios MD
== END 2017-07-15 14:58 | DRG 871 ==
LOC: ED 16:47 → ERH 18:04 → 3RSO 22:34
PROVIDERS: ADMIT Internal Medicine; ATTEND Internal Medicine
PROC: 3E0F7GC Introduction of Other Therapeutic Substance into Respiratory Tract, Via Natural or Artificial Opening (ICD-10-PCS; principal; 2017-07-09)
DX: A41.51 Sepsis due to Escherichia coli [E. coli] (principal); N39.0 Urinary tract infection, site not specified; I50.43 Acute on chronic combined systolic (congestive) and diastolic (congestive) heart failure; I47.2 Ventricular tachycardia; N18.4 Chronic kidney disease, stage 4 (severe); N17.9 Acute kidney failure, unspecified; E87.2 Acidosis; E11.22 Type 2 diabetes mellitus with diabetic chronic kidney disease; I08.3 Combined rheumatic disorders of mitral, aortic and tricuspid valves; I42.0 Dilated cardiomyopathy; C34.90 Malignant neoplasm of unspecified part of unspecified bronchus or lung; E87.1 Hypo-osmolality and hyponatremia; I69.354 Hemiplegia and hemiparesis following cerebral infarction affecting left non-dominant side; N25.81 Secondary hyperparathyroidism of renal origin; I13.0 Hypertensive heart and chronic kidney disease with heart failure and stage 1 through stage 4 chronic kidney disease, or unspecified chronic kidney disease; E11.51 Type 2 diabetes mellitus with diabetic peripheral angiopathy without gangrene; J44.9 Chronic obstructive pulmonary disease, unspecified; I48.2 Chronic atrial fibrillation; I25.5 Ischemic cardiomyopathy; I25.10 Atherosclerotic heart disease of native coronary artery without angina pectoris; R65.20 Severe sepsis without septic shock; N40.0 Benign prostatic hyperplasia without lower urinary tract symptoms; E78.5 Hyperlipidemia, unspecified; D63.1 Anemia in chronic kidney disease; I48.0 Paroxysmal atrial fibrillation; B96.1 Klebsiella pneumoniae [K. pneumoniae] as the cause of diseases classified elsewhere; Z93.3 Colostomy status; Z87.440 Personal history of urinary (tract) infections; Z92.3 Personal history of irradiation; Z79.4 Long term (current) use of insulin; Z86.718 Personal history of other venous thrombosis and embolism; Z79.01 Long term (current) use of anticoagulants; Z95.1 Presence of aortocoronary bypass graft; Z95.5 Presence of coronary angioplasty implant and graft; Z95.810 Presence of automatic (implantable) cardiac defibrillator; Z90.49 Acquired absence of other specified parts of digestive tract; Z87.891 Personal history of nicotine dependence

== ENCOUNTER 2017-07-15 15:01 | Inpatient (IN) | payer OTHER, MEDICAID ==
[2017-07-15 15:42] VITALS: BMI 28.5
[2017-07-15] MEDS ORDERED: Alum-Mag Hydrox-Simethicone Susp (30 mL) PO PRN (16:56)
--- NOTE | 2017-07-15 17:06 | CP.PCM.PN ---
Subjective - Date & Time of Evaluation Date of Evaluation: 07/15/17 Time of Evaluation: 16:59 - Subjective Subjective: Follow up Nephrology Consultation Note Assessment: Stable urine retention, recent E coli sepsis Acute Kidney Injury (N17.9) likely cardiorenal due to severe CHF: improving Hypertensive Chronic Kidney Disease (I12.9) Chronic Kidney Disease (N18.3) Stage 3 with 485 mg proteinuria (R80.9) baseline cr 2-2.5 Anemia (D64.9), Hyperphosphatemia (E83.39), Secondary Hyperparathyroidism (E21.1 ), HTN (I12.9) severe systolic CHF, lung CA Plan No acute need for renal replacement therapy at this time. ken catheter advised as bladder scan 500 mL, pt declined, fortunately he was able to void later on. continue flomax daily and proscar 5 mg/day Hypertension control with meds as ordered. Patient not on ACEI/ARB due to recent [place] Monitor Input/Output, daily weights and renal function with basic metabolic panel he is on inotropes continue with iron supplements and phoslo. no LAKISHA due to lung cancer Dose meds/antibiotics for reduced GFR. Avoid fleets enema/magnesium based laxatives. Avoid nephrotoxins/NSAIDs/ iodinated contrast (unless needed emergently) Glycemic control Further work up for as per primary team Thanks for allowing me to participate in care of your patient. Will follow patient with you. Please call if any Qs Dr Mode Sesay Office: [phone] Subjective: Noted events overnight. Patients feels okay. Denies chest pain, palpitation, shortness of breath, leg swelling. All other negative except difficulty in urination Physical Examination: bedside General Appearance: Comfortable, in no acute respiratory distress, co-operative . Vitals reviewed and noted as below Head; Atraumatic, normocephalic ENT: no ulcers no thrush. Tongue is midline. Oropharynx: no rash or ulcers. EYES: Pupils are equal, round and reactive to light accommodation. Eye muscles and extraocular movement intact. Sclera is anicteric. Neck; supple no lymphadenopathy, no thyromegaly or bruit Lungs: Normal respiratory rate/effort. Breath sounds bilateral equal and clear Heart: Normal rate. s1s2 normal. No rub or gallop. Extremities: no edema. No varicose veins Neurological: Patient is alert, awake and oriented to person, place and time. No focal deficit. Strength bilateral appropriate and equal Skin: Warm and dry. Normal turgor. No rash. Palpitation: Normal elasticity for age Abdomen: Abdomen is soft. Bowel sounds +. There is no abdominal tenderness, no guarding/rigidity no organomegaly Psych: normal insight and normal affect/mood MSK: no joint tenderness or swelling. Digits and nails normal, no deformity : kidney not palpable but has palpable bladder Labs/imaging reviewed. Past medical history, past surgical history, family history, social history, allergy reviewed and noted as below Family hx: no hx of CKD. Rest non-contributory renal sono: b/l cysts VIt D 39 PTH 209 LVEF 15% Objective - Medications Medications: Current Medications Aspirin (Ecotrin) 81 mg PO 0800 ANTHONY PRN Reason: Protocol Carvedilol (Coreg) 25 mg PO 0800,1800 ANTHONY PRN Reason: Protocol Finasteride (Proscar) 5 mg PO DAILY ANTHONY PRN Reason: Protocol Tamsulosin HCl (Flomax) 0.4 mg PO DAILY ANTHONY Warfarin Sodium (Coumadin) 2 mg PO 1800 ANTHONY PRN Reason: Protocol
[2017-07-15] MEDS ORDERED: Pneumococcal 23-Valent Vaccine IM ONE (17:09)
[2017-07-15] MEDS ORDERED: Influenza Vaccine 60 mcg/0.5 mL SYR (4YR UP) IM ONE (17:09)
[2017-07-15] MEDS: Iron Complex Polysacch 150mg Cap PO SCH (18:25)
[2017-07-15] MEDS: Insulin Detemir 100 units/ml Vial (Levemir) SC SCH (18:55)
[2017-07-15] MEDS: Insulin Lispro (humaLOG) MEDIUM Coverage SC SCH (21:45)
[2017-07-16] MEDS: Milrinone 20mg/100ml D5W 100 ML IV PRN ×2 (01:00→21:15)
[2017-07-16] MEDS: Pantoprazole 20 mg EC Tab PO SCH (05:59)
[2017-07-16] MEDS: Insulin Detemir 100 units/ml Vial (Levemir) SC SCH (06:29)
[2017-07-16] MEDS: Insulin Lispro (humaLOG) MEDIUM Coverage SC SCH ×4 (06:29→22:36)
[2017-07-16] MEDS: Albuterol-Ipratrop 3 mg / 0.5 (3 ml) UD IH SCH ×5 (08:01→19:33)
[2017-07-16] MEDS: Iron Complex Polysacch 150mg Cap PO SCH ×2 (10:19→18:44)
--- NOTE | 2017-07-16 11:49 | CP.PCM.PN ---
Subjective - Date & Time of Evaluation Date of Evaluation: 07/16/17 Time of Evaluation: 11:47 - Subjective Subjective: Follow up Nephrology Consultation Note Assessment: Stable urine retention, recent E coli sepsis Acute Kidney Injury (N17.9) likely cardiorenal due to severe CHF: improving Hypertensive Chronic Kidney Disease (I12.9) Chronic Kidney Disease (N18.3) Stage 3 with 485 mg proteinuria (R80.9) baseline cr 2-2.5 Anemia (D64.9), Hyperphosphatemia (E83.39), Secondary Hyperparathyroidism (E21.1 ), HTN (I12.9) severe systolic CHF, lung CA Plan No acute need for renal replacement therapy at this time. states he is voiding ok continue flomax daily and proscar 5 mg/day bp reasonably controlled on milrinone per cardiology continue with iron supplements and phoslo. no LAKISHA due to lung cancer will reorder bmp Subjective: deneis sob today Physical Examination: bedside General Appearance: Comfortable, in no acute respiratory distress, co-operative . Vitals reviewed and noted as below Head; Atraumatic, normocephalic ENT: no ulcers no thrush. Tongue is midline. Oropharynx: no rash or ulcers. EYES: Pupils are equal, round and reactive to light accommodation. Eye muscles and extraocular movement intact. Sclera is anicteric. Neck; supple no lymphadenopathy, no thyromegaly or bruit Lungs: Normal respiratory rate/effort. Breath sounds bilateral equal and clear Heart: Normal rate. s1s2 normal. No rub or gallop. Extremities: no edema. No varicose veins Neurological: Patient is alert, awake and oriented to person, place and time. No focal deficit. Strength bilateral appropriate and equal Skin: Warm and dry. Normal turgor. No rash. Palpitation: Normal elasticity for age Abdomen: Abdomen is soft. Bowel sounds +. There is no abdominal tenderness, no guarding/rigidity no organomegaly Psych: normal insight and normal affect/mood MSK: no joint tenderness or swelling. Digits and nails normal, no deformity : kidney not palpable but has palpable bladder Objective - Vital Signs/Intake and Output Vital Signs (last 24 hours): Temp Pulse Resp BP Pulse Ox 97.7 F 102 H 20 104/71 99 07/16/17 10:00 07/16/17 10:16 07/16/17 10:00 07/16/17 10:16 07/16/17 10:00 Intake and Output: 07/16/17 07/16/17 06:59 18:59 Intake Total 240 Balance 240 - Medications Medications: Current Medications Acetaminophen (Tylenol 325mg Tab) 650 mg PO Q6H PRN; Protocol PRN Reason: Fever >100.4 F Al Hydrox/Mg Hydrox/Simethicone (Maalox Plus 30 Ml) 30 ml PO BID PRN; Protocol PRN Reason: Indigestion / Heartburn Albuterol/Ipratropium (Duoneb 3 Mg/0.5 Mg (3 Ml) Ud) 3 ml IH [id number] ANTHONY PRN Reason: Protocol Last Admin: 07/16/17 08:01 Dose: 3 ml Aspirin (Ecotrin) 81 mg PO 0800 [facility] PRN Reason: Protocol Last Admin: 07/16/17 08:11 Dose: 81 mg Calcium Acetate (Phoslo) 667 mg PO 0730,1230,1800 [facility] PRN Reason: Protocol Last Admin: 07/16/17 08:12 Dose: 667 mg Carvedilol (Coreg) 25 mg PO 0800,1800 AN[facility]Y PRN Reason: Protocol Last Admin: 07/16/17 10:16 Dose: 25 mg Digoxin (Lanoxin) 0.125 mg PO 1400 [facility]Y PRN Reason: Protocol Ferrous Gluconate (Fergon) 324 mg PO TID [facility] Last Admin: 07/16/17 10:17 Dose: 324 mg Finasteride (Proscar) 5 mg PO DAILY [facility] PRN Reason: Protocol Last Admin: 07/16/17 10:18 Dose: 5 mg Milrinone Lactate/Dextrose (Primacor 20mg/100ml D5w) 100 mls @ 4.8 mls/hr IV .[id number] PRN; Protocol PRN Reason: Other Last Admin: 07/16/17 01:00 Dose: 4.8 mls/hr Meropenem 500 mg/ Sodium (Chloride) 50 mls @ 100 mls/hr IVPB Q12H [facility] Insulin Detemir (Levemir) 12 unit SC 0730,1730 [facility] PRN Reason: Protocol Last Admin: 07/16/17 06:29 Dose: Not Given Insulin Human Lispro (Humalog Med) 0 units SC ACHS ANTHONY PRN Reason: Protocol Last Admin: 07/16/17 06:29 Dose: Not Given Pantoprazole Sodium (Protonix Ec Tab) 20 mg PO 0600 [facility] PRN Reason: Protocol Last Admin: 07/16/17 05:59 Dose: 20 mg Polysaccharide Iron Complex (Ferrex-150) 150 mg PO 0800,1800 [facility] PRN Reason: Protocol Last Admin: 07/16/17 10:19 Dose: 150 mg Sodium Bicarbonate (Sodium Bicarbonate Tab) 650 mg PO TID [facility] Last Admin: 07/16/17 10:18 Dose: 650 mg Tamsulosin HCl (Flomax) 0.4 mg PO DAILY [facility] Last Admin: 07/16/17 10:18 Dose: 0.4 mg Warfarin Sodium (Coumadin) 2 mg PO 1800 [facility] PRN Reason: Protocol Last Admin: 07/15/17 18:24 Dose: 2 mg
[2017-07-16] MEDS ORDERED: Meropenem IV 1 gm in NS 50 ML IVPB SCH (14:00)
[2017-07-16 14:35] LABS: CALCIUM 8.3 mg/dL (8.4-10.5)
[2017-07-16] MEDS: Digoxin 125 mcg (0.125 mg) Tab PO SCH (14:58)
[2017-07-16] MEDS ORDERED: Sod Polystyrene Sulf 15 gm/60 ml Susp PO ONE (17:04)
[2017-07-16] MEDS: Meropenem 500 MG in NS 0.9% 50 ML IVPB SCH (18:48)
--- NOTE | 2017-07-16 21:45 | CON ---
DATE: 07/16/2017 LOCATION: The patient is seen early this morning in room 303, in Transitional Care. CHIEF COMPLAINT: Weakness from several days. HISTORY OF PRESENT ILLNESS: This is a 72-year-old male who was originally from [place] with a past medical history of chronic congestive heart failure, hypertension, coronary artery disease, chronic obstructive lung disease, BPH, history of DVT, pacemaker, and colostomy who was admitted to [facility]. The patient was found to have a severe sepsis with ESBL E. coli bacteremia and the patient had acute kidney injury and also has Klebsiella urinary tract infection, had negative CAT scan of the abdomen, had an echo which did not reveal any vegetations, and currently completing meropenem, today is day #4 of 10 days of meropenem. PAST MEDICAL HISTORY: Significant for chronic congestive heart failure, coronary artery disease, hypertension, BPH, history of DVT, and chronic obstructive lung disease. PAST SURGICAL HISTORY: Significant for pacemaker, defibrillator, and colostomy. ALLERGIES: THE PATIENT HAS NO KNOWN ALLERGIES. REVIEW OF SYSTEMS: Reveals no fevers, no chills, no nausea, no vomiting, and no headaches. PHYSICAL EXAMINATION: VITAL SIGNS: The patient's temperature is 98, blood pressure is /70, respiratory rate of 18, and heart rate of 105. HEENT: Unremarkable. NECK: Supple. LUNGS: Have decreased breath sounds. HEART: Normal S1 and S2. ABDOMEN: Soft and nontender. LABORATORY DATA: Reveals a white count of 6000, hemoglobin of 8, and platelets of 325. Chemistry reveals BUN of 70 and creatinine 3.0. Urinalysis is noted. Toxicology is noted. Microbiology reveals the patient's E. coli ESBL in the blood and repeat blood cultures are negative from the 07/13/2017. The patient did have urine culture that showed Klebsiella. The patient had a CAT scan of the abdomen and pelvis that was negative and echo which was as per Dr. Cowan. ASSESSMENT AND PLAN: This is a 72-year-old male who is originally from [place] with chronic congestive heart failure, hypertension, coronary artery disease, benign prostatic hypertrophy, chronic obstructive pulmonary disease, and history of deep venous thrombosis. The patient has a pacemaker and colostomy with severe sepsis with extended-spectrum beta-lactamases, Escherichia coli bacteremia with acute kidney injury and Klebsiella in the urine, but negative CAT scan of the abdomen and pelvis and concerned about the pacemaker has been possibly infected. Today is day #4 of meropenem with complete 10 days of meropenem day #4 of 10 days. If the extended-spectrum beta-lactamases recurs, then we will have to revisit the pacemaker being infected and discussed this with Dr. Mathews and Dr. Palacios and we will follow closely with you in the possible need for SERGO and as discussed with Dr. Mathews. Walt Connre MD
--- NOTE | 2017-07-17 03:26 | HP ---
REASON FOR ADMISSION: Gram-negative sepsis, gram-negative bacteremia, consideration of IV meropenem for 7 more days. HISTORY OF PRESENT ILLNESS: A 72-year-old male with history of chronic renal insufficiency, insulin-dependent diabetes, CVA, bedridden, and recurrent urinary tract infections came in with fever of 102, found to have gram-negative bacteremia and gram negative in urine. The patient was seen by the consult, was given IV meropenem and recommendation to continue that therapy for 7 more days, total of 10 days or 2 weeks therapy. He left with 7 more days to be given. The patient is afebrile now, seems stable on his insulin, nebulizer treatment, and rest of medications including IV Milrinone. His echocardiogram did not reveal any growth or any endocarditis evident on the wires of the pacemaker and defibrillator. PAST MEDICAL HISTORY: As I mentioned, he has pacemaker, has ischemic cardiomyopathy on IV Milrinone, insulin-dependent diabetes, history of colostomy, history of aortic aneurysm surgery, history of iron deficiency anemia, prostate enlargement, COPD, lung CA was treated with radiation, congestive heart failure, atrial fibrillation, and history of DVT, left subclavian. ALLERGIES: HE HAS NO KNOWN ALLERGIES. HOME MEDICATIONS: He is taking Coumadin with regular PT/INR, he takes Flomax, he takes vitamins, he was getting Entresto, he takes Humalog, Lantus 14 units daily, Lasix one tablet b.i.d., Breo Ellipta twice a day, Proscar, iron pills, Pepcid, Coreg 25 b.i.d., PhosLo one tablet t.i.d., Calcitriol, Lipitor 10 mg p.o. daily, Ecotrin 81 mg p.o. daily, and Xanax one tablet daily p.r.n. REVIEW OF SYSTEMS: As in the present illness, weakness, bedridden, short of breath, dysuria, using colostomy bag for BMs; his is very supportive and taking good care of him. SOCIAL HISTORY: No alcohol. No smoking, he quit many years ago. No substance abuse. PHYSICAL EXAMINATION: VITAL SIGNS: As follows; temperature is 97, heart rate is 107, blood pressure is 129/81, respirations are 20, and saturation is 99%. HEAD AND NECK: Normal. No JVD. No thyromegaly. CHEST: Clear. CARDIAC: First sound and second sound normal, with systolic murmur across epicardium. ABDOMEN: Soft. Colostomy bag. EXTREMITIES: Very minimal edema. NEUROLOGIC: He does not move his lower extremity, he only moves his upper extremity right more than the left. There is some left weakness. LABORATORY DATA: When he came in, his chemistry; sodium 134, potassium 5.3, chloride 109, bicarb 16, BUN 70, and creatinine is 3, which is down from 3.2. His blood sugar is 173 and his calcium is 8.3. IMPRESSION AND PLAN: 1. Gram-negative bacteremia, gram-negative sepsis, urinary tract infection was gram negative. Continue meropenem and we will follow up with ID consult. 2. Congestive heart failure and chronic systolic heart failure. Continue IV Milrinone. Continue Lasix and carvedilol. 3. History of deep vein thrombosis and history of atrial fibrillation. The patient currently on Coreg 25 mg b.i.d. and warfarin 2 mg p.o. daily. 4. History of ischemic cardiomyopathy and coronary artery disease: Continue aspirin, continue digoxin. 5. Diabetes, insulin-dependent: Continue Levemir 12 units daily. Continue insulin coverage and we will follow up clinically. The patient seems stable. The patient also had some residual urine in Grimaldo catheter and Grimaldo was done 700 mL residual. The patient was started on Flomax and we will continue to follow up on that. Dexter Palacios MD
[2017-07-17] MEDS: Albuterol-Ipratrop 3 mg / 0.5 (3 ml) UD IH SCH ×4 (04:29→20:51)
[2017-07-17] MEDS: Meropenem 500 MG in NS 0.9% 50 ML IVPB SCH ×2 (05:11→17:15)
[2017-07-17] MEDS: Pantoprazole 20 mg EC Tab PO SCH (05:12)
[2017-07-17] MEDS: Insulin Lispro (humaLOG) MEDIUM Coverage SC SCH ×4 (06:59→21:21)
[2017-07-17] MEDS ORDERED: Levalbuterol 1.25 MG/3 ML Inhal Soln UD ONE (07:51)
[2017-07-17] MEDS ORDERED: Albuterol 0.042% Inhal Sol (1.25 mg/3 mL) UD ONE (07:51)
[2017-07-17] MEDS: Insulin Detemir 100 units/ml Vial (Levemir) SC SCH ×2 (08:09→17:18)
[2017-07-17] MEDS: Iron Complex Polysacch 150mg Cap PO SCH ×2 (08:13→17:15)
[2017-07-17] MEDS: Digoxin 125 mcg (0.125 mg) Tab PO SCH (13:44)
--- NOTE | 2017-07-17 15:22 | PN ---
DATE: 07/17/2017 SUBJECTIVE: The patient is in bed, in no acute distress, was seen this morning in room 303. PHYSICAL EXAMINATION: VITAL SIGNS: Temperature is 97, blood pressure is 120/70, and respiratory rate is 16. HEENT: Unremarkable. NECK: Supple. LUNGS: Have decreased breath sounds. HEART: Normal S1, S2. ABDOMEN: Soft. LABORATORY DATA: Laboratory examination is reviewed. Review of the orders reveals the patient is on meropenem. ASSESSMENT AND PLAN: A 72-year-old male, originally from [place], with chronic congestive heart failure, hypertension, coronary artery disease, chronic obstructive lung disease, benign prostatic hypertrophy, history of deep vein thrombosis, pacemaker, and colostomy, admitted to acute care. The patient was found to have severe sepsis with ESBL E. coli bacteremia with acute kidney injury and with chronic obstructive lung disease and DVT with ESBL E. coli bacteremia, acute kidney injury, however, urine culture is positive for Klebsiella in the urine. He had a CAT scan of the abdomen and pelvis, which was negative. The patient also has a pacemaker, is concerned a possible source. Today is day #5 of meropenem. We will complete 10 days of meropenem. If the infection recurs, we must consider pacemaker as the source. We will discuss with you. Walt Conner MD
[2017-07-17] MEDS: Milrinone 20mg/100ml D5W 100 ML IV PRN (20:16)
[2017-07-18] MEDS: Albuterol-Ipratrop 3 mg / 0.5 (3 ml) UD IH SCH ×4 (01:42→20:05)
[2017-07-18] MEDS: Pantoprazole 20 mg EC Tab PO SCH (05:42)
[2017-07-18] MEDS: Meropenem 500 MG in NS 0.9% 50 ML IVPB SCH ×2 (05:52→17:15)
[2017-07-18] MEDS: Iron Complex Polysacch 150mg Cap PO SCH ×2 (08:25→18:55)
[2017-07-18] MEDS: Insulin Lispro (humaLOG) MEDIUM Coverage SC SCH ×4 (08:26→21:49)
[2017-07-18] MEDS: Insulin Detemir 100 units/ml Vial (Levemir) SC SCH ×2 (08:53→17:19)
--- NOTE | 2017-07-18 14:20 | PN ---
DATE: 07/18/2017 SUBJECTIVE: The patient is in bed in no acute distress, nontoxic. PHYSICAL EXAMINATION: VITAL SIGNS: Temperature is 98, blood pressure is 130/70, respiratory rate of 28, and heart rate of 113. HEENT: Unremarkable. NECK: Supple. LUNGS: Have decreased breath sounds. HEART: Normal S1 and S2. ABDOMEN: Soft. LABORATORY EXAMINATION: Reviewed. ASSESSMENT AND PLAN: This is a 72-year-old male with originally from [place] with chronic congestive heart failure, hypertension, coronary artery disease, chronic obstructive lung disease, benign prostatic hypertrophy, history of deep vein thrombosis, pacemaker, colostomy, admitted with acute care, found to have severe sepsis with extended-spectrum beta-lactamase Escherichia coli bacteremia with acute kidney injury, however, the urine cultures are positive for Klebsiella. The patient had a negative CT scan of the abdomen and pelvis. The patient does have a pacemaker, which is of concern and the today is day number 6 of 10 days of meropenem and the patient is tolerating medication well. Review of orders reveals the meropenem to be active; day number 6 of 10 days of meropenem. Walt Conner MD
--- NOTE | 2017-07-18 15:30 | PN ---
DATE: 07/17/2017 SUBJECTIVE: The patient is comfortable in the bed, afebrile, no distress, doing well. PHYSICAL EXAMINATION: VITAL SIGNS: Temperature 98.7, heart rate 113, blood pressure 132/74, and respirations 20. HEAD AND NECK: Normal. No JVD. No thyromegaly. CHEST: Clear. Good air entry. CARDIAC: First sound and second sound normal, irregular. ABDOMEN: Soft and nontender with colostomy bag. EXTREMITIES: No edema. NEUROLOGIC: The patient has weakness in both lower extremities and left upper extremity, but he moves both upper extremities. LABORATORY DATA: Noted. Blood sugar 146, 170, much better than before. Last creatinine was 3 and BUN 70. IMPRESSION AND PLAN: 1. Gram negative sepsis, urinary tract infection, continue meropenem. We will follow up clinically. 2. Ischemic cardiomyopathy. Congestive heart failure. Continue IV milrinone. 3. Continue Coreg 25 b.i.d. 4. History of chronic atrial fibrillation/deep venous thrombosis. Continue Coumadin. Monitor PT/INR and we will follow up clinically. 5. Generalized weakness, bed ridden. We will get him out of bed to chair. 6. Prostate enlargement. Continue Proscar and Flomax. 7. Continue current therapy. Followup clinically. Dexter Palacios MD
[2017-07-18] MEDS: Milrinone 20mg/100ml D5W 100 ML IV PRN (17:16)
--- NOTE | 2017-07-18 22:45 | CON ---
DATE: 07/18/2017 REASON FOR CONSULTATION: Cardiac evaluation and followup in continuity of care in Transitional Care Unit. BRIEF CLINICAL HISTORY: This is a 72-year-old male with a past medical history significant for coronary artery disease, status post CABG, status post cardiomyopathy; status post PTCA of LAD, ICD, paroxysmal atrial fibrillation, status post colostomy, status post endovascular stent for abdominal aortic aneurysm, multiple urinary tract infection, and congestive heart failure admitted with shortness of breath in the floor, elevated BNP, and outpatient to Transitional Care Unit for continuity of care and Cardiology consult for followup. PAST MEDICAL HISTORY: Significant for coronary artery disease, status post PTCA by Dr. Fransico Cabral, cardiomyopathy ischemic, status post AICD, paroxysmal atrial fibrillation, chronic kidney disease, status post colostomy, status post endovascular stent, history of CVA, history of BPH, history of multiple urinary tract infection, history of abdominal aortic aneurysm, status post stent, and ejection fraction 25%. SOCIAL HISTORY: Denies any history of alcohol abuse. CURRENT MEDICATIONS: The patient is taking Coumadin, vancomycin, Flomax, Entresto, multivitamin, insulin, and Lasix. REVIEW OF SYSTEMS: As per HPI. PHYSICAL EXAMINATION: VITAL SIGNS: As follows; temperature afebrile, heart rate is 113, and blood pressure 135/90. HEENT: PERRLA. Extraocular muscles are intact. NECK: Supple. No carotid bruit or thyromegaly. CHEST: Clear to auscultation. HEART: S1 and S2 regular. ABDOMEN: Soft. EXTREMITIES: Clubbing and cyanosis negative. LABORATORY DATA: Blood workup as follows: WBC 3.5, hemoglobin , hematocrit 35.9, and platelet count 302 as of 07/15/2017. Chemistry as 07/16/2017; sodium 134, potassium 5.3, chloride 109, carbon dioxide 16, anion gap of 14, BUN 70, and creatinine 3. IMPRESSION: Acute kidney injury; chronic renal insufficiency, coronary artery disease, cardiomyopathy, chronic kidney disease, severely decreased left ventricular function, status post automatic implantable cardioverter-defibrillator, status post percutaneous transluminal coronary angioplasty of left anterior descending, endovascular stent, colostomy, and Gram-negative sepsis, on Primacor. RECOMMENDATIONS: Continue Coumadin goal to keep INR 2, last INR is 2.15. Continue aspirin, continue Primacor supplement, continue antibiotics, and continue digoxin. We will decrease because of the renal insufficiency Tuesday, Tuesday, and Tuesday, we will hold and do the digoxin level and then restart Tuesday, Tuesday, and Tuesday to prevent digoxin toxicity. We will hold digoxin today because BUN and creatinine is elevated. The patient is getting 0.14 dig, and we will start digoxin Tuesday, Tuesday, and Tuesday from tomorrow if digoxin is less than 1.2. Thank you for providing us the opportunity in taking care of the patient, [place]. Arabella Mathews MD
--- NOTE | 2017-07-19 01:31 | PN ---
DATE: SUBJECTIVE: The patient is comfortable, getting IV meropenem, and has no fever. No nausea. No vomiting. PHYSICAL EXAMINATION: VITAL SIGNS: Temperature is 97, heart rate is 98, blood pressure is 139/76, respirations are 20, and saturation is 96% on room air. HEAD AND NECK: Normal. No JVD. No thyromegaly. CHEST: Clear. Good air entry. CARDIAC: First sound and second sound normal with systolic murmur. LUNGS: Normal. There is diminished breath sounds on the right side. ABDOMEN: Soft with colostomy. EXTREMITIES: No edema. NEUROLOGIC: The patient has weakness both lower extremities and left upper extremity move to some extent less than the right upper extremity. LABORATORY DATA: Sugar runs 170 and last BUN 70 and creatinine 3. IMPRESSION AND PLAN: 1. Gram-negative bacteremia. Gram-negative sepsis. Continue IV meropenem. 2. Ischemic cardiomyopathy, chronic atrial fibrillation. Continue Coumadin. Continue IV milrinone. The patient seems doing well on Coreg. 3. Chronic obstructive pulmonary disease, lung carcinoma, status post radiation. Continue inhaled bronchodilators. Continue current therapy. 4. Anemia, iron deficiency. Continue iron IV and the patient seems stable. 5. Diabetes, insulin dependent. Continue Humalog plus Levemir. Blood sugar 170s. 6. Poor appetite. We will give him Nepro can one can t.i.d. plus we will give him Remeron to increase his appetite and we will follow up clinically. Continue current therapy. Dexter Palacios MD
[2017-07-19] MEDS: Albuterol-Ipratrop 3 mg / 0.5 (3 ml) UD IH SCH ×7 (02:05→21:04)
[2017-07-19] MEDS: Meropenem 500 MG in NS 0.9% 50 ML IVPB SCH ×2 (05:41→17:29)
[2017-07-19] MEDS: Insulin Detemir 100 units/ml Vial (Levemir) SC SCH ×3 (06:53→19:00)
[2017-07-19] MEDS: Insulin Lispro (humaLOG) MEDIUM Coverage SC SCH ×4 (06:53→22:51)
[2017-07-19] MEDS: Pantoprazole 20 mg EC Tab PO SCH (06:54)
[2017-07-19] MEDS: Iron Complex Polysacch 150mg Cap PO SCH ×2 (08:05→17:30)
[2017-07-19] MEDS: Milrinone 20mg/100ml D5W 100 ML IV PRN (10:11)
[2017-07-19 10:33] LABS: EOS # 0.2 (0.0-0.7); EOS % 2.7 % (1.5-5.0); GRAN # 4.49 (1.4-6.5); LYMPH # 0.5 (1.2-3.4); LYMPH % 9.6 % (22.0-35.0); MEAN CORPUSCULAR HEMOGLOBIN 24.7 pg (25.0-35.0); MEAN PLATELET VOLUME 9.1 fl (7.0-11.0); MONO # 0.4 (0.1-0.6); MONO % 7.7 % (1.0-6.0); RBC 3.65 10^6/uL (3.5-6.1); RED CELL DISTRIBUTION WIDTH 16.6 % (11.5-14.5); WHITE BLOOD COUNT 5.6 10^3/ul (4.5-11.0)
[2017-07-19 11:06] LABS: ALB/GLOB RATIO 0.8 (1.1-1.8); ALBUMIN 3.1 g/dL (3.0-4.8); CALCIUM 8.6 mg/dL (8.4-10.5); MAGNESIUM 1.8 mg/dL (1.7-2.2)
[2017-07-19] MEDS ORDERED: Sod Polystyrene Sulf 15 gm/60 ml Susp PO ONE (11:14)
--- NOTE | 2017-07-19 12:45 | CP.PCM.PN ---
Subjective - Date & Time of Evaluation Date of Evaluation: 07/19/17 Time of Evaluation: 11:40 - Subjective Subjective: Comfortable, no fevers, not in distress. Objective - Vital Signs/Intake and Output Vital Signs (last 24 hours): Temp Pulse Resp BP Pulse Ox 97.5 F L 97 H 20 110/77 96 07/18/17 17:50 07/19/17 09:07 07/18/17 17:50 07/19/17 09:07 07/18/17 14:00 - Medications Medications: Current Medications Acetaminophen (Tylenol 325mg Tab) 650 mg PO Q6H PRN; Protocol PRN Reason: Fever >100.4 F Al Hydrox/Mg Hydrox/Simethicone (Maalox Plus 30 Ml) 30 ml PO BID PRN; Protocol PRN Reason: Indigestion / Heartburn Albuterol/Ipratropium (Duoneb 3 Mg/0.5 Mg (3 Ml) Ud) 3 ml IH [id number] ANTHONY PRN Reason: Protocol Last Admin: 07/19/17 07:51 Dose: 3 ml Aspirin (Ecotrin) 81 mg PO 0800 [facility] PRN Reason: Protocol Last Admin: 07/19/17 08:05 Dose: 81 mg Calcium Acetate (Phoslo) 667 mg PO 0730,1230,1800 [facility] PRN Reason: Protocol Last Admin: 07/19/17 08:05 Dose: 667 mg Carvedilol (Coreg) 25 mg PO 0800,1800 ANTHONY PRN Reason: Protocol Last Admin: 07/19/17 09:07 Dose: 25 mg Digoxin (Lanoxin) 0.125 mg PO F [facility] Ferrous Gluconate (Fergon) 324 mg PO TID [facility] Last Admin: 07/19/17 09:06 Dose: 324 mg Finasteride (Proscar) 5 mg PO DAILY [facility] PRN Reason: Protocol Last Admin: 07/19/17 09:06 Dose: 5 mg Milrinone Lactate/Dextrose (Primacor 20mg/100ml D5w) 100 mls @ 4.8 mls/hr IV .[id number] PRN; Protocol PRN Reason: Other Last Admin: 07/18/17 17:16 Dose: 4.8 mls/hr Meropenem 500 mg/ Sodium (Chloride) 100 mls @ 100 mls/hr IVPB Q12H [facility] Last Admin: 07/19/17 05:41 Dose: 100 mls/hr Insulin Detemir (Levemir) 12 unit SC 0730,1730 [facility] PRN Reason: Protocol Last Admin: 07/19/17 06:53 Dose: Not Given Insulin Human Lispro (Humalog Med) 0 units SC ACHS ANTHONY PRN Reason: Protocol Last Admin: 07/19/17 06:53 Dose: Not Given Mirtazapine (Remeron) 15 mg PO HS [facility] Last Admin: 07/19/17 05:42 Dose: Not Given Pantoprazole Sodium (Protonix Ec Tab) 20 mg PO 0600 [facility] PRN Reason: Protocol Last Admin: 07/19/17 06:54 Dose: 20 mg Polysaccharide Iron Complex (Ferrex-150) 150 mg PO 0800,1800 [facility] PRN Reason: Protocol Last Admin: 07/19/17 08:05 Dose: 150 mg Prednisone (Prednisone Tab) 20 mg PO 0800 [facility] PRN Reason: Protocol Sodium Bicarbonate (Sodium Bicarbonate Tab) 650 mg PO TID [facility] Last Admin: 07/19/17 09:09 Dose: 650 mg Tamsulosin HCl (Flomax) 0.4 mg PO 1800 [facility] PRN Reason: Protocol Warfarin Sodium (Coumadin) 2 mg PO 1800 [facility] PRN Reason: Protocol Last Admin: 07/18/17 17:20 Dose: 2 mg - Labs Labs: 07/16/17 13:45 - Constitutional Appears: Non-toxic - Head Exam Head Exam: NORMAL INSPECTION - ENT Exam ENT Exam: Mucous Membranes Moist - Neck Exam Neck Exam: absent: Meningismus - Respiratory Exam Respiratory Exam: Decreased Breath Sounds - Cardiovascular Exam Cardiovascular Exam: +S1, +S2 - GI/Abdominal Exam GI & Abdominal Exam: Soft. absent: Tenderness Assessment and Plan - Assessment and Plan (Free Text) Plan: Assessment Severe sepsis due to ESBL E. coli bacteremia, unclear source, cannot rule out pacemaker infection history of sepsis due to right sided healthcare-associated pneumonia history of UTI with carbapenem-resistant Klebsiella history of ESBL-producing Klebsiella bacteremia, secondary to the port S/P removal S/P treatment for healthcare-associated pneumonia history of C diff associated diarrhea history of UTI with yeast history healthcare-associated pneumonia Severe cardiomyopathy with EF 10-15 % paroxysmal atrial fibrillation Coronary artery disease S/P stenting history of aortic aneurysm history of SVT S/P AICD placement S/P procedure on his prostate in 2012 S/P partial colectomy and colostomy Plan will continue Merrem (day 7 of 10 days) and should repeat blood cx after antibiotics are finished - if the repeat blood cx becomes positive, should get SERGO to rule out pacemaker infection will continue to monitor clinically
--- NOTE | 2017-07-19 20:03 | PN ---
SUBJECTIVE: The patient is currently seen in the TCU. He is completing his course of antibiotic therapy for his Klebsiella urinary tract infection and E. coli septicemia. He remains on Primacor. His creatinine is down to 2.9. His has been bringing him food from home, which includes potassium rich meals. His potassium was 5.9, and he received 1 dose of Kayexalate today. MEDICATIONS: Medication list reviewed; the patient is on Coreg, Coumadin, DuoNeb, Ecotrin, iron, Flomax, insulin, Lanoxin, Maalox, meropenem, PhosLo, prednisone, Primacor, Proscar, Protonix, Remeron, sodium bicarbonate and Tylenol p.r.n. OBJECTIVE: VITAL SIGNS: Blood pressure 140/88, temperature 97, respiratory rate is 20 with a pulse of 103. HEENT: Normocephalic, atraumatic. Conjunctivae are pale. Sclerae are nonicteric. NECK: Supple. No neck vein distention. CHEST: Clear to auscultation and percussion with decreased breath sounds at the bases. No rales, no rhonchi or wheezing. CARDIOVASCULAR: Shows a regular rate and rhythm with MR/AI/TR. Positive AICD, permanent pacemaker. ABDOMEN: Soft. Bowel sounds normal. No rebound, guarding or masses. Left lower quadrant colostomy which appears to be intact. EXTREMITIES: No cyanosis, clubbing or edema. Distal lower extremity pulses are reduced. LABORATORY DATA AND IMAGING: CBC, white blood cell count today 5.6, hemoglobin 9 with a platelet count of 398,000. Chemistries, sodium 137, potassium 5.9, chloride 110 with a CO2 of 19, BUN 60 with a creatinine of 2.9. Glucose is 157. Liver enzymes are normal. Calcium 8.6, phosphorus 4.5, magnesium 1.8. Digoxin level was 0.8. ASSESSMENT: 1. Acute renal failure superimposed on chronic kidney disease stage 4. The patient has advanced cardiorenal syndrome secondary to cardiomyopathy. His BUN and creatinine are drifting down to baseline levels. Creatinine is 2.9. Baseline creatinine is in the 2.5 to 2.6 range. Baseline BUN is in the upper 40s. 2. Klebsiella urinary tract infection and Escherichia coli bacteremia being treated with antibiotic therapy. 3. History of hypertension. Blood pressure is controlled. 4. History of arteriosclerotic heart disease, status post coronary artery bypass graft, cardiomyopathy, ejection fraction 15% to 20%. The patient has an automatic implantable cardioverter-defibrillator and a pacemaker. He has valvular heart disease. The patient will continue on Primacor and hopefully will be able to receive this medication at home. 5. History of peripheral vascular disease, history of aortic abdominal aneurysm status post repair. 6. History of mild anemia secondary to chronic kidney disease. Hemoglobin 9.0. The patient was on oral iron and Aranesp therapy. 7. History of secondary hyperparathyroidism. Phosphorus level is now controlled. The patient will continue PhosLo therapy. 8. History of benign prostatic hypertrophy, currently stable. 9. History of mild hyperlipidemia. 10. Hyperkalemia over the last 48 hours. This is likely secondary to bringing in food with high potassium content. I will ask the cattle sorter to come up and speak to the regarding a 2 gm potassium diet. PLAN: 1. Repeat labs again tomorrow. 2. Continue ionotropic support with Primacor. 3. Complete course of antibiotic therapy. 4. Explained to that she must adhere to a low potassium diet restrictions. We do not want to have to give the patient Kayexalate on a regular basis. Mio Stoddard MD
--- NOTE | 2017-07-19 21:25 | PN ---
DATE: 07/19/2017 LOCATION: The patient is in room 303, bed 1 REASON FOR CONSULTATION AND FOLLOWUP: Coronary artery disease, history of CHF, atrial fibrillation, paroxysmal ICD insertion, and deconditioning. SUBJECTIVE: The patient is lying flat in bed without chest pain, shortness of breath, or palpitation. PHYSICAL EXAMINATION: VITAL SIGNS: Blood pressure 140/88, earlier pressure was 110/77, respirations 20, pulse 97, and temperature 97.3. HEENT: Head is normocephalic. Eyes: Pupils are normal. Conjunctivae slightly pale. NECK: JVP low. Carotids are equal. THORAX: AP diameter normal. LUNGS: Clear. CARDIOVASCULAR: S1 and S2. ABDOMEN: The patient has colostomy. EXTREMITIES: No clubbing. No cyanosis. LABORATORY DATA: WBC 5.6, hemoglobin 9.0, hematocrit 28.1, and platelet 398. Sodium 137, potassium 5.9, BUN 60, creatinine 2.9, and random sugar 279. TSH 2.44. Digoxin 0.8. DIAGNOSES: Acute kidney injury, hyperkalemia, chronic renal insufficiency, coronary artery disease, cardiomyopathy, chronic kidney disease, severely decreased left ventricular function, status post automated implantable cardioverter-defibrillator insertion. status post percutaneous transluminal coronary angioplasty of left anterior descending and vascular stent for abdominal aneurysm, colostomy, Gram-negative sepsis, on Primacor, hyperkalemia, and history of paroxysmal atrial fibrillation. MEDICATIONS: The patient is getting Coreg 25 b.i.d., warfarin 2 mg daily, aspirin 81 mg daily, ferrous gluconate 324 t.i.d., Flomax 0.4 daily, Kayexalate has been already given for high potassium, digoxin 0.125 Tuesday, Tuesday and Tuesday, insulin as ordered, Merrem IV 500 mg q.12 hours, Primacor drip as ordered, Proscar 5 mg daily, Protonix 20 mg daily, Remeron 50 mg p.o. at bedtime, and sodium bicarb 650 p.o. t.i.d. The patient's repeat labs have been ordered for tomorrow. We will also order for prothrombin time for tomorrow. We will follow. Arabella Lopez MD
[2017-07-20] MEDS: Milrinone 20mg/100ml D5W 100 ML IV PRN (01:38)
[2017-07-20] MEDS: Albuterol-Ipratrop 3 mg / 0.5 (3 ml) UD IH SCH ×3 (03:00→13:17)
[2017-07-20] MEDS: Meropenem 500 MG in NS 0.9% 50 ML IVPB SCH ×2 (05:47→18:10)
[2017-07-20] MEDS: Pantoprazole 20 mg EC Tab PO SCH (05:48)
[2017-07-20] MEDS: Insulin Lispro (humaLOG) MEDIUM Coverage SC SCH ×4 (06:43→23:42)
[2017-07-20] MEDS: Insulin Detemir 100 units/ml Vial (Levemir) SC SCH ×2 (06:44→18:08)
[2017-07-20] MEDS: Iron Complex Polysacch 150mg Cap PO SCH ×2 (08:21→18:04)
--- NOTE | 2017-07-20 08:30 | PN ---
07/19/2017 SUBJECTIVE: The patient seems doing well, doing better, afebrile. No respiratory distress. PHYSICAL EXAMINATION VITAL SIGNS: Temperature 97, heart rate 97, blood pressure 139/76, respirations 20, and saturating about 93%on 2 L. HEAD AND NECK: Normal. No JVD. No thyromegaly. CHEST: Clear. CARDIAC: First sound and second sounds are normal and irregular. ABDOMEN: Soft with colostomy bag. EXTREMITIES: No edema. NEUROLOGIC: The patient does not move his all extremities, and he is bedridden. LABORATORY DATA: White count 5.6, hemoglobin 9, hematocrit 28.1, platelets 398. Chemistry noted for sodium 137, potassium 5.9, chloride 110, bicarbonate 19, BUN 60, creatinine 2.9. Blood sugar is 157. Calcium 8.6, phosphorus 4.5, magnesium 1.8. TSH 2.44. IMPRESSION AND PLAN: 1. Gram-negative bacteremia, urinary tract infection. Continue meropenem. He has couple more days for finishing the antibiotics. 2. Chronic renal failure, seems improving. Creatinine went down to 2.9. 3. Hyperkalemia. Will give Kayexalate. 4. Chronic obstructive pulmonary disease, diabetes type 2, ischemic cardiomyopathy, hypertension, and chronic prostate enlargement. Continue IV milrinone. Continue current medications. CURRENT MEDICATIONS: Coreg 25 mg b.i.d.; Coumadin 2 mg daily; nebulizer treatment; DuoNeb; aspirin 81; iron pills; Flomax 0.4; insulin coverage; Lanoxin 0.125 Tuesday, Tuesday, and Tuesday; Levemir 12 units b.i.d.; Milk of magnesia; PhosLo; prednisone 20 mg p.o. daily; milrinone; Proscar 5 mg; Protonix 40; Remeron 15; sodium bicarb 650 t.i.d.; Tylenol p.r.n. every 6 hours. Continue current therapy. Monitor PT and INR, and we will follow up clinically. Dexter Palacios MD
[2017-07-20] MEDS ORDERED: Albuterol-Ipratrop 3 mg / 0.5 (3 ml) UD IH STA (09:07)
[2017-07-20] MEDS: Digoxin 125 mcg (0.125 mg) Tab PO SCH (10:03)
[2017-07-20 13:12] LABS: BASO # 0.01 K/mm3 (0.0-2.0); BASO % 0.1 % (0.0-3.0); EOS # 0.1 (0.0-0.7); EOS % 0.8 % (1.5-5.0); GRAN # 6.13 (1.4-6.5); GRAN % 82.7 % (50.0-68.0); HEMOGLOBIN 9.2 g/dL (14.0-18.0); LYMPH # 0.4 (1.2-3.4); LYMPH % 5.3 % (22.0-35.0); MEAN CELL VOLUME 77.3 fl (80.0-105.0); MEAN CORPUSCULAR HEMOGLOBIN 24.6 pg (25.0-35.0); MEAN CORPUSCULAR HGB CONC 31.8 g/dl (31.0-37.0); MEAN PLATELET VOLUME 9.6 fl (7.0-11.0); MONO # 0.8 (0.1-0.6); MONO % 11.1 % (1.0-6.0); RBC 3.74 10^6/uL (3.5-6.1); RED CELL DISTRIBUTION WIDTH 16.4 % (11.5-14.5); WHITE BLOOD COUNT 7.4 10^3/ul (4.5-11.0)
[2017-07-20 13:26] LABS: ALB/GLOB RATIO 0.9 (1.1-1.8); ALBUMIN 3.3 g/dL (3.0-4.8); CALCIUM 8.9 mg/dL (8.4-10.5)
--- NOTE | 2017-07-20 13:27 | PN ---
DATE: 07/20/2017 LOCATION: The patient is in room 303, bed 1. REASON FOR CONSULTATION AND FOLLOWUP: Coronary artery disease, history of CHF, paroxysmal atrial fibrillation, ICD insertion, deconditioning, and renal dysfunction. SUBJECTIVE: The patient is lying flat in bed without any chest pain, shortness of breath, or palpitation. is at the bedside. PHYSICAL EXAMINATION: VITAL SIGNS: Blood pressure 136/91, respirations 18, pulse 100, and temperature 97.3. HEENT: Head is normocephalic. Eyes: Pupils normal. Conjunctivae slightly pale. NECK: JVP low. Carotids are equal. THORAX: AP diameter normal. LUNGS: Clear. CARDIOVASCULAR: S1 and S2. ABDOMEN: Colostomy bag. PERIPHERIES: No clubbing. No cyanosis. LABORATORY DATA: WBC 5.6, hemoglobin 9.0, hematocrit 28.1, and platelet 398. Random sugar 132. On 07/19/2017, sodium 137, potassium 5.9, BUN 60, creatinine 2.9, random sugar . Phosphorus, magnesium, calcium, AST, ALT, total protein, and albumin normal. DIAGNOSES: Acute kidney injury on chronic renal insufficiency, coronary artery disease, history of angioplasty and stent insertion in left anterior descending artery in the past, status post vascular stent, abdominal aneurysm, hyperkalemia, cardiomyopathy, severely decreased left ventricular function, status post automated implantable cardioverter-defibrillator insertion, paroxysmal atrial fibrillation, and Gram-negative sepsis. MEDICATIONS: The patient is on Primacor drip along with Coreg 25 b.i.d., warfarin 2 mg daily, aspirin 81 mg daily, ferrous gluconate 324 mg t.i.d., Ferrex 150 mg p.o. b.i.d., and Flomax 0.4 daily. The patient received Kayexalate yesterday 30 g for high potassium, digoxin 0.125 Tuesday, Tuesday and Tuesday, Merrem 500 mg IV q.12 hours, Primacor drip, Proscar 5 mg daily, and Protonix 20 mg p.o. daily. PLAN: Today's labs are pending. We will check PT/INR in the morning along with other labs. Continue present therapy. We will follow. Arabella Lopez MD
[2017-07-20] MEDS ORDERED: Sod Polystyrene Sulf 15 gm/60 ml Susp PO ONE (14:41)
--- NOTE | 2017-07-20 14:52 | PN ---
DATE: SUBJECTIVE: The patient is currently seen in the TCU, comfortable in bed. Apparently, he had refused to do lab work in the morning. His potassium level from the previous day was 5.9. The patient did receive one dose of Kayexalate yesterday. MEDICATIONS: Medication list reviewed. The patient is currently on Coreg, Coumadin, DuoNeb, Ecotrin, iron, Flomax, insulin, Lanoxin, meropenem, PhosLo, prednisone, Primacor, Proscar, Protonix, Remeron, sodium bicarbonate, and Tylenol p.r.n. OBJECTIVE: Vital signs: Blood pressure is 136/91, temperature 97.3, pulse 100, respiratory rate of 16. HEENT: Normocephalic, atraumatic. Conjunctivae pale. Sclerae nonicteric. NECK: Supple. No neck vein distention. CHEST: Clear to auscultation and percussion with slight decreased breath sounds at the bases. No rales or rhonchi or wheezing. CARDIOVASCULAR: Shows a regular rate and rhythm with MR/AI/TR. Positive AICD. Positive permanent pacemaker. Abdomen: Soft. Bowel sounds normal. No rebound or guarding or masses. Left lower quadrant colostomy. Extremities: No cyanosis, clubbing, or edema. LABORATORY DATA AND IMAGING: Labs are pending from today. I did explain to the patient's that labs must be done in AM as ordered, little more that I could offer him. ASSESSMENT: 1. Acute renal failure, superimposed on chronic kidney disease stage IV. The patient has advanced cardiorenal syndrome secondary to cardiomyopathy. BUN and creatinine have drifted back to baseline levels. BUN was 60 with a creatinine of 2.9. His best baseline level showed BUN in the upper 40s with a creatinine in the mid 2 range. 2. Klebsiella urinary tract infection, Escherichia coli bacteremia. The patient is completing a course of antibiotic therapy. 3. Hypertension. Blood pressure currently is controlled on present medication. 4. History of arteriosclerotic heart disease, status post coronary artery bypass graft, cardiomyopathy, ejection fraction low at 15-20%. The patient has an automatic implantable cardioverter-defibrillator and pacemaker in place. He has valvular heart disease. Discussed with Cardiology, it would be important for him to try and continue to receive Primacor at home, but this has been difficult in terms of insurance-related issues. 5. History of peripheral vascular disease, status post aortic aneurysm with repair. 6. History of mild anemia secondary to chronic kidney disease. The patient continues oral iron and Aranesp therapy. 7. History of secondary hyperparathyroidism. Phosphorus level is controlled. The patient will continue PhosLo, binder therapy. 8. History of benign prostatic hypertrophy, currently stable. 9. History of mild hyperlipidemia, stable. 10. Hyperkalemia. Hoping that kayexalate given yesterday has brought his potassium level down. The patient's did meet with a dietitian yesterday. She now understands which fruits and vegetables he can eat safely and which would cause his potassium to rise. PLAN: 1. Stressed to the importance of doing lab work in the morning prior to rounds-up by the physicians. 2. Continue ionotropic support with Primacor. 3. Complete course of antibiotic therapy in the TCU. Mio Stoddard MD MTDD
--- NOTE | 2017-07-20 15:25 | CP.PCM.PN ---
Subjective - Date & Time of Evaluation Date of Evaluation: 07/20/17 Time of Evaluation: 11:55 - Subjective Subjective: Comfortable in bed, no fevers overnight, not in distress, no diarrhea. Objective - Vital Signs/Intake and Output Vital Signs (last 24 hours): Temp Pulse Resp BP Pulse Ox 97.3 F L 100 H 16 136/91 H 98 07/19/17 16:43 07/20/17 08:20 07/19/17 16:43 07/20/17 08:20 07/19/17 16:43 - Medications Medications: Current Medications Acetaminophen (Tylenol 325mg Tab) 650 mg PO Q6H PRN; Protocol PRN Reason: Fever >100.4 F Al Hydrox/Mg Hydrox/Simethicone (Maalox Plus 30 Ml) 30 ml PO BID PRN; Protocol PRN Reason: Indigestion / Heartburn Albuterol/Ipratropium (Duoneb 3 Mg/0.5 Mg (3 Ml) Ud) 3 ml IH Q5PYSET ANTHONY PRN Reason: Protocol Last Admin: 07/20/17 07:17 Dose: 3 ml Aspirin (Ecotrin) 81 mg PO 0800 [facility] PRN Reason: Protocol Last Admin: 07/20/17 08:21 Dose: 81 mg Calcium Acetate (Phoslo) 667 mg PO 0730,1230,1800 [facility] PRN Reason: Protocol Last Admin: 07/20/17 08:22 Dose: 667 mg Carvedilol (Coreg) 25 mg PO 0800,1800 [facility] PRN Reason: Protocol Last Admin: 07/20/17 08:20 Dose: 25 mg Digoxin (Lanoxin) 0.125 mg PO F [facility] Ferrous Gluconate (Fergon) 324 mg PO TID [facility] Last Admin: 07/19/17 17:29 Dose: 324 mg Finasteride (Proscar) 5 mg PO DAILY [facility] PRN Reason: Protocol Last Admin: 07/19/17 09:06 Dose: 5 mg Milrinone Lactate/Dextrose (Primacor 20mg/100ml D5w) 100 mls @ 4.8 mls/hr IV [id number] PRN; Protocol PRN Reason: Other Last Admin: 07/20/17 01:38 Dose: 4.8 mls/hr Meropenem 500 mg/ Sodium (Chloride) 100 mls @ 100 mls/hr IVPB Q12H [facility] Last Admin: 07/20/17 05:47 Dose: 100 mls/hr Insulin Detemir (Levemir) 12 unit SC 0730,1730 [facility] PRN Reason: Protocol Last Admin: 07/20/17 06:44 Dose: Not Given Insulin Human Lispro (Humalog Med) 0 units SC ACHS [facility] PRN Reason: Protocol Last Admin: 07/20/17 06:43 Dose: 1 units Mirtazapine (Remeron) 15 mg PO HS [facility] Last Admin: 07/19/17 23:48 Dose: 15 mg Pantoprazole Sodium (Protonix Ec Tab) 20 mg PO 0600 [facility] PRN Reason: Protocol Last Admin: 07/20/17 05:48 Dose: 20 mg Polysaccharide Iron Complex (Ferrex-150) 150 mg PO 0800,1800 [facility] PRN Reason: Protocol Last Admin: 07/20/17 08:21 Dose: 150 mg Prednisone (Prednisone Tab) 10 mg PO DAILY [facility] Sodium Bicarbonate (Sodium Bicarbonate Tab) 650 mg PO TID [facility] Last Admin: 07/19/17 19:52 Dose: 650 mg Tamsulosin HCl (Flomax) 0.4 mg PO 1800 [facility] PRN Reason: Protocol Last Admin: 07/19/17 17:32 Dose: 0.4 mg Warfarin Sodium (Coumadin) 2 mg PO 1800 [facility] PRN Reason: Protocol Last Admin: 07/19/17 17:32 Dose: 2 mg - Labs Labs: 07/19/17 10:10 07/19/17 10:10 - Constitutional Appears: Chronically Ill - Head Exam Head Exam: NORMAL INSPECTION - ENT Exam ENT Exam: Mucous Membranes Moist - Neck Exam Neck Exam: absent: Meningismus - Respiratory Exam Respiratory Exam: Decreased Breath Sounds - Cardiovascular Exam Cardiovascular Exam: +S1, +S2 - GI/Abdominal Exam GI & Abdominal Exam: Soft. absent: Tenderness Assessment and Plan - Assessment and Plan (Free Text) Plan: Assessment Severe sepsis due to ESBL E. coli bacteremia, unclear source, cannot rule out pacemaker infection history of sepsis due to right sided healthcare-associated pneumonia history of UTI with carbapenem-resistant Klebsiella history of ESBL-producing Klebsiella bacteremia, secondary to the port S/P removal S/P treatment for healthcare-associated pneumonia history of C diff associated diarrhea history of UTI with yeast history healthcare-associated pneumonia Severe cardiomyopathy with EF 10-15 % paroxysmal atrial fibrillation Coronary artery disease S/P stenting history of aortic aneurysm history of SVT S/P AICD placement S/P procedure on his prostate in 2012 S/P partial colectomy and colostomy Plan will continue Merrem (day 8 of 10 days) and should repeat blood cx after antibiotics are finished - if the repeat blood cx becomes positive, should get SERGO to rule out pacemaker infection will continue to monitor clinically while the patient is in the hospital
[2017-07-21] MEDS: Albuterol-Ipratrop 3 mg / 0.5 (3 ml) UD IH SCH ×4 (02:45→21:08)
[2017-07-21] MEDS: Meropenem 500 MG in NS 0.9% 50 ML IVPB SCH ×2 (05:28→17:21)
[2017-07-21] MEDS: Pantoprazole 20 mg EC Tab PO SCH (05:29)
[2017-07-21] MEDS: Insulin Lispro (humaLOG) MEDIUM Coverage SC SCH ×4 (06:36→21:52)
[2017-07-21] MEDS: Insulin Detemir 100 units/ml Vial (Levemir) SC SCH ×2 (06:38→17:18)
[2017-07-21] MEDS ORDERED: Albuterol-Ipratrop 3 mg / 0.5 (3 ml) UD IH STA (06:43)
[2017-07-21] MEDS: MethylPREDNISolone 40 mg Vial IVP SCH ×3 (06:52→21:55)
[2017-07-21 07:23] LABS: HEMOGLOBIN 9.6 g/dL (14.0-18.0); MEAN CELL VOLUME 77.4 fl (80.0-105.0); MEAN CORPUSCULAR HEMOGLOBIN 25.2 pg (25.0-35.0); MEAN CORPUSCULAR HGB CONC 32.5 g/dl (31.0-37.0); MEAN PLATELET VOLUME 9.6 fl (7.0-11.0); RBC 3.81 10^6/uL (3.5-6.1); RED CELL DISTRIBUTION WIDTH 16.5 % (11.5-14.5)
[2017-07-21 07:38] LABS: PROTHROMBIN TIME 81.2 SECONDS (9.4-12.5)
--- NOTE | 2017-07-21 07:38 | RAD ---
HISTORY: dyspnea COMPARISON: 07/08/2017 FINDINGS: LUNGS: There is increasing vascular congestion especially in the right lower lobe. There is some linear atelectasis in the left mid lung field PLEURA: No significant pleural effusion identified, no pneumothorax apparent. CARDIOVASCULAR: Mild cardiomegaly OSSEOUS STRUCTURES: No significant abnormalities. VISUALIZED UPPER ABDOMEN: Normal. OTHER FINDINGS: None. IMPRESSION: Increasing vascular congestion
[2017-07-21 07:39] LABS: INR 6.79 (0.93-1.08)
[2017-07-21 08:08] LABS: ALB/GLOB RATIO 0.9 (1.1-1.8); ALBUMIN 3.2 g/dL (3.0-4.8); CALCIUM 8.7 mg/dL (8.4-10.5)
[2017-07-21] MEDS: Iron Complex Polysacch 150mg Cap PO SCH ×2 (08:32→17:20)
--- NOTE | 2017-07-21 08:52 | PN ---
DATE: 07/20/2017 SUBJECTIVE: The patient in the morning was doing well. On 07/20/2017, was stable. No other complaints. He has some respiratory distress, mild; however, the patient seems better after the nurse told me that. He has no new complaints. He did get some nebulizers and felt better, otherwise he is stable on 07/20/2017. PHYSICAL EXAMINATION: VITAL SIGNS: His temperature is 98.7, heart rate 98, blood pressure 153/92, respirations 18 and saturation 99% on room air. HEAD AND NECK: Normal. No JVD. No thyromegaly. CHEST: Diminished breath sounds, clear. There are few basilar rhonchi in the bases. CARDIAC: First sound and second sound normal. ABDOMEN: Soft. Colostomy. EXTREMITIES: Trace mild edema. NEUROLOGIC: The patient does not moves lower extremities and has left arm weakness, but he ate using the right arm and he is using it. He is alert, awake and oriented x3. LABORATORY DATA: White count 7.4, hemoglobin 9.2, hematocrit 28.9 and platelets 433. Chemistry shows sodium 139, potassium 5.5, chloride 110, bicarb 21, BUN 59, creatinine 2.7 and blood sugar is 167. Liver function test is normal. IMPRESSION AND PLAN: 1. Acute mild respiratory distress, seems improving with nebulizers, Lasix. We will get a chest x-ray and we will follow up on that. Continue steroids. Continue nebulizers. We will give him Lasix IV daily for a couple of days, see how he will do. 2. Chronic renal failure, improving. Creatinine went down to 2.7. 3. Gram-negative bacteremia. Continue meropenem, probably he will have the last day may be tomorrow. If he is stable, we will discharge with assist tomorrow, his respiratory conditions. 4. Anemia, chronic. 5. Diabetes, insulin dependent. Continue Levemir. Continue insulin coverage. 6. Lung carcinoma. Chronic obstructive pulmonary disease. History of ischemic cardiomyopathy, congestive heart failure, chronic systolic failure and diastolic. Continue IV Lasix for now. Continue nebulizers. Continue milrinone IV infusions. Followup clinically. Continue Coumadin for his chronic atrial fibrillations. We will repeat PT/INR tomorrow, and we will followup clinically. Dexter Palacios MD
--- NOTE | 2017-07-21 12:25 | PN ---
DATE: SUBJECTIVE: The patient is currently seen lying comfortable in bed in the TCU. This is day #6 on the TCU. Repeat potassium levels done over the last several days show a slight decline in his potassium level. Potassium level on 07/19/2017 was 5.9, yesterday 5.5, today 5.3. The patient is status post Kayexalate on 07/19/2017 and 07/20/2017 of 30 g doses. The patient's fully understands the importance of a low potassium renal diet. MEDICATIONS: Medication list reviewed. The patient is currently on Coreg, Coumadin is on hold, DuoNeb, Ecotrin, iron, Flomax, insulin, Lanoxin, Lasix, meropenem, PhosLo, Primacor, Proscar, Protonix, Remeron, sodium bicarbonate, Solu-Medrol, tapering doses, and Tylenol p.r.n. OBJECTIVE: VITAL SIGNS: Blood pressure 143/91. Heart rate is 92, temperature 97.8, respiratory rate is 26. HEENT: Normocephalic, atraumatic. Conjunctivae pale. Sclerae nonicteric. NECK: Supple. No neck vein distention. CHEST: Clear to auscultation and percussion. No rales, rhonchi or wheezing. Slight decreased breath sounds at the bases. CARDIOVASCULAR: Regular rate and rhythm with MR/AI/TR. Positive AICD, positive permanent pacemaker. ABDOMEN: Soft. Bowel sounds normal. No rebound, guarding or masses. Left lower quadrant colostomy intact. EXTREMITIES: No cyanosis, clubbing or edema. LABORATORY DATA AND IMAGING STUDIES: CBC: Today, white blood cell count 7 with a hemoglobin of 9.6, platelet count is 407,000. Chemistries: Sodium 142, potassium 5.3, chloride 111 with a CO2 of 21. The BUN is 65 with a creatinine of 2.6, within his baseline range for the present hospitalization. Previously, his BUN was down in the 40s with a creatinine in the low to mid 2 range. ASSESSMENT: 1. Acute renal failure superimposed on chronic kidney disease stage IV. The patient has advanced cardiorenal syndrome secondary to cardiomyopathy, ejection fraction 15-20%. BUN is slowly drifting down toward baseline levels in the 40s, but BUN in the 60 level is certainly acceptable given his clinical situation. Creatinine is just slightly above his best levels which is a creatinine in the low to mid 2 range. 2. Klebsiella urinary tract infection Escherichia coli bacteremia. The patient is completing a course of antibiotic therapy. He is on meropenem. 3. History of hypertension. Blood pressure control is acceptable. 4. History of atherosclerotic heart disease, status post coronary artery bypass graft surgery, cardiomyopathy, ejection fraction 15-20%, history of automatic implantable cardioverter-defibrillator and permanent pacemaker. The patient does have valvular heart disease. The patient would be an excellent candidate for Primacor therapy at home. However, insurance reasons have prevented this in the past. 5. History of peripheral vascular disease status post aortic aneurysm with repair. 6. History of mild anemia secondary to chronic kidney disease. The patient continues oral iron and Aranesp therapy. 7. History of secondary hyperparathyroidism. Phosphorus level is controlled. The patient will continue binder therapy and a renal diet. 8. History of benign prostatic hypertrophy, currently stable. 9. History of mild hyperlipidemia, currently stable. 10. Borderline to mild hyperkalemia. If the patient's is willing to comply with dietary restrictions, the patient can avoid taking any Kayexalate in an outpatient setting. She had met with the dietitian and understands which fruits, vegetables, etc., patient can take safely. PLAN: 1. The patient likely finishing up his antibiotic therapy in the next several days. 2. Try and obtain Primacor in the outpatient setting. 3. Continue to monitor lab work on a daily basis while in the TCU. Mio Stoddard MD
--- NOTE | 2017-07-21 12:34 | CP.PCM.PN ---
Subjective - Date & Time of Evaluation Date of Evaluation: 07/21/17 Time of Evaluation: 11:40 - Subjective Subjective: Comfortable in bed, no fevers. Objective - Vital Signs/Intake and Output Vital Signs (last 24 hours): Temp Pulse Resp BP Pulse Ox 97.8 F 92 H 26 H 143/91 H 97 07/21/17 06:47 07/21/17 08:32 07/21/17 06:47 07/21/17 08:32 07/21/17 06:47 Intake and Output: 07/21/17 07/21/17 06:59 18:59 Intake Total 240 Balance 240 - Medications Medications: Current Medications Acetaminophen (Tylenol 325mg Tab) 650 mg PO Q6H PRN; Protocol PRN Reason: Fever >100.4 F Al Hydrox/Mg Hydrox/Simethicone (Maalox Plus 30 Ml) 30 ml PO BID PRN; Protocol PRN Reason: Indigestion / Heartburn Albuterol/Ipratropium (Duoneb 3 Mg/0.5 Mg (3 Ml) Ud) 3 ml IH [id number] [facility] PRN Reason: Protocol Last Admin: 07/21/17 07:03 Dose: Not Given Aspirin (Ecotrin) 81 mg PO 0800 [facility] PRN Reason: Protocol Last Admin: 07/21/17 08:32 Dose: 81 mg Calcium Acetate (Phoslo) 667 mg PO 0730,1230,1800 [facility] PRN Reason: Protocol Last Admin: 07/21/17 08:31 Dose: 667 mg Carvedilol (Coreg) 25 mg PO 0800,1800 [facility] PRN Reason: Protocol Last Admin: 07/21/17 08:32 Dose: 25 mg Digoxin (Lanoxin) 0.125 mg PO MWF [facility] Last Admin: 07/20/17 10:03 Dose: 0.125 mg Ferrous Gluconate (Fergon) 324 mg PO TID [facility] Last Admin: 07/20/17 18:05 Dose: Not Given Finasteride (Proscar) 5 mg PO DAILY [facility] PRN Reason: Protocol Last Admin: 07/20/17 10:04 Dose: 5 mg Furosemide (Lasix) 20 mg PO DAILY [facility] Last Admin: 07/21/17 06:22 Dose: 20 mg Milrinone Lactate/Dextrose (Primacor 20mg/100ml D5w) 100 mls @ 4.8 mls/hr IV .[id number] PRN; Protocol PRN Reason: Other Last Admin: 07/20/17 01:38 Dose: 4.8 mls/hr Meropenem 500 mg/ Sodium (Chloride) 100 mls @ 100 mls/hr IVPB Q12H [facility] Last Admin: 07/21/17 05:28 Dose: 100 mls/hr Insulin Detemir (Levemir) 12 unit SC 0730,1730 [facility] PRN Reason: Protocol Last Admin: 07/21/17 06:38 Dose: Not Given Insulin Human Lispro (Humalog Med) 0 units SC ACHS [facility] PRN Reason: Protocol Last Admin: 07/21/17 06:36 Dose: Not Given Methylprednisolone (Solu-Medrol) 40 mg IVP Q12 [facility] Last Admin: 07/21/17 06:52 Dose: 40 mg Mirtazapine (Remeron) 15 mg PO HS [facility] Last Admin: 07/20/17 21:14 Dose: 15 mg Pantoprazole Sodium (Protonix Ec Tab) 20 mg PO 0600 [facility] PRN Reason: Protocol Last Admin: 07/21/17 05:29 Dose: 20 mg Polysaccharide Iron Complex (Ferrex-150) 150 mg PO 0800,1800 [facility] PRN Reason: Protocol Last Admin: 07/21/17 08:32 Dose: 150 mg Sodium Bicarbonate (Sodium Bicarbonate Tab) 650 mg PO TID [facility] Last Admin: 07/20/17 18:11 Dose: 650 mg Tamsulosin HCl (Flomax) 0.4 mg PO 1800 [facility] PRN Reason: Protocol Last Admin: 07/20/17 18:06 Dose: 0.4 mg Warfarin Sodium (Coumadin) 2 mg PO 1800 [facility] PRN Reason: Protocol Last Admin: 07/20/17 18:04 Dose: 2 mg - Labs Labs: 07/21/17 07:00 07/21/17 07:00 PT 81.2 SECONDS (9.4-12.5) H 07/21/17 07:00 INR 6.79 (0.93-1.08) H* 07/21/17 07:00 - Constitutional Appears: Chronically Ill - Head Exam Head Exam: NORMAL INSPECTION - Neck Exam Neck Exam: absent: Meningismus - Respiratory Exam Respiratory Exam: Decreased Breath Sounds - Cardiovascular Exam Cardiovascular Exam: +S1, +S2 - GI/Abdominal Exam GI & Abdominal Exam: Soft. absent: Tenderness Assessment and Plan - Assessment and Plan (Free Text) Plan: Assessment Severe sepsis due to ESBL E. coli bacteremia, unclear source, cannot rule out pacemaker infection history of sepsis due to right sided healthcare-associated pneumonia history of UTI with carbapenem-resistant Klebsiella history of ESBL-producing Klebsiella bacteremia, secondary to the port S/P removal S/P treatment for healthcare-associated pneumonia history of C diff associated diarrhea history of UTI with yeast history healthcare-associated pneumonia Severe cardiomyopathy with EF 10-15 % paroxysmal atrial fibrillation Coronary artery disease S/P stenting history of aortic aneurysm history of SVT S/P AICD placement S/P procedure on his prostate in 2012 S/P partial colectomy and colostomy Plan will continue Merrem (day 9 of 10 days) and should repeat blood cx after antibiotics are finished - if the repeat blood cx becomes positive, should get SERGO to rule out pacemaker infection will continue to monitor clinically while the patient is in the hospital
--- NOTE | 2017-07-21 22:12 | PN ---
DATE: 07/21/2017 LOCATION: The patient is in room 303, bed 1. REASON FOR CONSULTATION AND FOLLOWUP: Coronary artery disease, history of CHF, paroxysmal atrial fibrillation, ICD insertion, deconditioning, and renal dysfunction. SUBJECTIVE: The patient is lying flat in bed without any chest pain, shortness of breath, or palpitation. PHYSICAL EXAMINATION: VITAL SIGNS: Blood pressure 141/90, respirations 20, pulse 92, and temperature 98.7. HEENT: Head is normocephalic. Eyes: Pupils normal. Conjunctivae slightly pale. NECK: JVP low. Carotids are equal. THORAX: AP diameter normal. LUNGS: No rales. CARDIOVASCULAR: S1 and S2. ABDOMEN: Colostomy. PERIPHERIES: No clubbing. No cyanosis. LABORATORY DATA: WBC 7.0, hemoglobin 9.6, hematocrit 29.5, and platelet 407. Sodium 142, potassium 5.3, BUN 65, creatinine 2.6, random sugar 365. AST and ALT, normal. Total protein and albumin normal. DIAGNOSES: Acute kidney injury superimposed on chronic renal dysfunction, coronary artery disease, history of angioplasty and stent insertion in left anterior descending, coronary artery in the past, status post vascular stent for abdominal aortic aneurysm, hyperkalemia, cardiomyopathy, severely decreased left ventricular function, status post automated implantable cardioverter-defibrillator insertion, paroxysmal atrial fibrillation, Gram-negative sepsis, and hyperkalemia. MEDICATIONS: The patient is on Coreg 25 b.i.d., warfarin 2 mg daily, DuoNeb hand nebulizer therapy, aspirin 81 mg daily, iron polysaccharide 150 mg p.o. b.i.d., Flomax 0.4 mg daily, furosemide 20 mg p.o. daily, Merrem 500 mg IV q. 12 hours, Primacor drip continued, 40 daily, Solu-Medrol 40 mg IV q. 12 hours. PLAN: The patient also being seen by Dr. Stoddard, at the renal. We will follow with you. Arabella Lopez MD
--- NOTE | 2017-07-22 00:12 | PN ---
DATE: SUBJECTIVE: The patient dyspnea early in the morning, being cold. The patient received Lasix with some improvement, some nebulizer, a dose of steroids and he felt better. The patient supposed to be discharge home today has problem with the weather, could not get nurse for his milrinone IV infusions and his discharge postponed for tomorrow, Tuesday. The patient also has some dyspnea, breathing problem, and recommend to hold off from discharge today, observed him and monitored him. PHYSICAL EXAMINATION: GENERAL: The patient right now is seen in no distress. VITAL SIGNS: His temperature 97.4, heart rate 98, blood pressure 143/82, respirations 18. HEAD AND NECK: Normal. No JVD. No thyromegaly. CHEST: Few basilar crackles, otherwise negative. CARDIAC: First sound and second sound normal. Systolic murmur. ABDOMEN: Soft. Colostomy on the right side of the abdomen. EXTREMITIES: There is no edema. NEUROLOGIC: Both legs does not move, he is 0/5 in both legs and both upper extremity seems doing well. Normal strengths on the right, 4/5 on the left or less weak on the left side. LABORATORY DATA: Laboratory studies was done, white count 7, hemoglobin 9.6, hematocrit 29.5, platelets 407. Sodium 142, potassium 5.3, chloride 111, bicarb 21, BUN 65, creatinine 2.6, blood sugar 136. Chest x-ray was reported to have congestion. IMPRESSION AND PLAN: 1. Acute on top of chronic systolic heart failure. The patient got Lasix, improved. 2. Chronic obstructive pulmonary disease, mild exacerbation did well also nebulizer treatments steroids. Continue nebulizer treatment. Continue current therapy with Lasix IV and will followup clinically. 3. Chronic renal failure, seems improving. His BUN 65, creatinine now is 2.6. 4. Coagulopathy. High PT/INR, hold Coumadin today and tomorrow. We will resume his usual dose Coumadin 2 mg daily on Tuesday. 5. Diabetes, insulin dependent. Continue insulin coverage as well. He is getting Levemir 12 units b.i.d. plus getting insulin coverage. 6. Ischemic cardiomyopathy, congestive heart failure. Continue IV milrinone. Continue Coreg 25 mg p.o. daily, aspirin 81 mg daily, Lanoxin 0.125 mg Tuesday, Tuesday, and Tuesday and continue Lasix 20 mg p.o. daily for now. Continue current therapy. The patient also getting sodium bicarb and getting calcium acetate, PhosLo. Continue current therapy. We will see him tomorrow and will followup clinically. Dexter Palacios MD
[2017-07-22] MEDS: Albuterol-Ipratrop 3 mg / 0.5 (3 ml) UD IH SCH ×5 (02:40→20:21)
[2017-07-22] MEDS: Meropenem 500 MG in NS 0.9% 50 ML IVPB SCH (05:48)
[2017-07-22] MEDS: Pantoprazole 20 mg EC Tab PO SCH (05:48)
[2017-07-22 06:18] LABS: HEMOGLOBIN 8.4 g/dL (14.0-18.0); MEAN CELL VOLUME 76.5 fl (80.0-105.0); MEAN CORPUSCULAR HEMOGLOBIN 23.8 pg (25.0-35.0); MEAN CORPUSCULAR HGB CONC 31.1 g/dl (31.0-37.0); MEAN PLATELET VOLUME 9.4 fl (7.0-11.0); RBC 3.53 10^6/uL (3.5-6.1); RED CELL DISTRIBUTION WIDTH 16.4 % (11.5-14.5); WHITE BLOOD COUNT 3.3 10^3/ul (4.5-11.0)
[2017-07-22 07:26] LABS: ALB/GLOB RATIO 0.9 (1.1-1.8); CALCIUM 8.7 mg/dL (8.4-10.5); MAGNESIUM 1.8 mg/dL (1.7-2.2)
[2017-07-22] MEDS: Iron Complex Polysacch 150mg Cap PO SCH ×2 (08:50→18:16)
[2017-07-22] MEDS ORDERED: Sod Polystyrene Sulf 15 gm/60 ml Susp PO ONE (10:20)
[2017-07-22] MEDS: Digoxin 125 mcg (0.125 mg) Tab PO SCH (10:54)
[2017-07-22 11:07] VITALS: PULSE 95
--- NOTE | 2017-07-22 12:17 | CP.PCM.PN ---
Subjective - Date & Time of Evaluation Date of Evaluation: 07/22/17 Time of Evaluation: 12:15 - Subjective Subjective: Comfortable in bed, no fevers, no diarrhea. Objective - Vital Signs/Intake and Output Vital Signs (last 24 hours): Temp Pulse Resp BP Pulse Ox 97.4 F L 99 H 20 137/89 94 L 07/21/17 16:00 07/22/17 08:49 07/21/17 16:00 07/22/17 08:49 07/21/17 16:00 - Medications Medications: Current Medications Acetaminophen (Tylenol 325mg Tab) 650 mg PO Q6H PRN; Protocol PRN Reason: Fever >100.4 F Al Hydrox/Mg Hydrox/Simethicone (Maalox Plus 30 Ml) 30 ml PO BID PRN; Protocol PRN Reason: Indigestion / Heartburn Albuterol/Ipratropium (Duoneb 3 Mg/0.5 Mg (3 Ml) Ud) 3 ml IH [id number] [facility] PRN Reason: Protocol Last Admin: 07/22/17 07:25 Dose: 3 ml Aspirin (Ecotrin) 81 mg PO 0800 [facility] PRN Reason: Protocol Last Admin: 07/22/17 08:49 Dose: 81 mg Calcium Acetate (Phoslo) 667 mg PO 0730,1230,1800 [facility] PRN Reason: Protocol Last Admin: 07/22/17 08:49 Dose: 667 mg Carvedilol (Coreg) 25 mg PO 0800,1800 [facility] PRN Reason: Protocol Last Admin: 07/22/17 08:49 Dose: 25 mg Digoxin (Lanoxin) 0.125 mg PO MWF [facility] Last Admin: 07/20/17 10:03 Dose: 0.125 mg Finasteride (Proscar) 5 mg PO DAILY [facility] PRN Reason: Protocol Last Admin: 07/21/17 10:49 Dose: 5 mg Furosemide (Lasix) 20 mg PO DAILY [facility] Last Admin: 07/21/17 10:40 Dose: Not Given Milrinone Lactate/Dextrose (Primacor 20mg/100ml D5w) 100 mls @ 4.8 mls/hr IV .[id number] PRN; Protocol PRN Reason: Other Last Admin: 07/20/17 01:38 Dose: 4.8 mls/hr Meropenem 500 mg/ Sodium (Chloride) 100 mls @ 100 mls/hr IVPB Q12H [facility] Last Admin: 07/22/17 05:48 Dose: 100 mls/hr Insulin Detemir (Levemir) 12 unit SC 0730,1730 [facility] PRN Reason: Protocol Last Admin: 07/21/17 17:18 Dose: 12 unit Insulin Human Lispro (Humalog Med) 0 units SC ACHS [facility] PRN Reason: Protocol Last Admin: 07/21/17 21:52 Dose: 3 units Mirtazapine (Remeron) 15 mg PO HS [facility] Last Admin: 07/21/17 21:54 Dose: 15 mg Pantoprazole Sodium (Protonix Ec Tab) 20 mg PO 0600 [facility] PRN Reason: Protocol Last Admin: 07/22/17 05:48 Dose: 20 mg Phytonadione (Vitamin K Tab) 5 mg PO DAILY [facility] Polysaccharide Iron Complex (Ferrex-150) 150 mg PO 0800,1800 [facility] PRN Reason: Protocol Last Admin: 07/22/17 08:50 Dose: 150 mg Prednisone (Prednisone Tab) 15 mg PO DAILY [facility] PRN Reason: Protocol Sodium Bicarbonate (Sodium Bicarbonate Tab) 650 mg PO TID [facility] Last Admin: 07/21/17 17:22 Dose: 650 mg Tamsulosin HCl (Flomax) 0.4 mg PO 1800 [facility] PRN Reason: Protocol Last Admin: 07/21/17 17:21 Dose: 0.4 mg Warfarin Sodium (Coumadin) 2 mg PO 1800 [facility] PRN Reason: Protocol Last Admin: 07/20/17 18:04 Dose: 2 mg - Labs Labs: 07/22/17 06:00 07/22/17 06:00 PT 81.2 SECONDS (9.4-12.5) H 07/21/17 07:00 INR 6.79 (0.93-1.08) H* 07/21/17 07:00 - Constitutional Appears: Non-toxic, Chronically Ill - Head Exam Head Exam: NORMAL INSPECTION - ENT Exam ENT Exam: Mucous Membranes Moist - Neck Exam Neck Exam: absent: Meningismus - Respiratory Exam Respiratory Exam: Decreased Breath Sounds - Cardiovascular Exam Cardiovascular Exam: +S1, +S2 - GI/Abdominal Exam GI & Abdominal Exam: Soft. absent: Tenderness Assessment and Plan - Assessment and Plan (Free Text) Plan: Assessment Severe sepsis due to ESBL E. coli bacteremia, unclear source, cannot rule out pacemaker infection history of sepsis due to right sided healthcare-associated pneumonia history of UTI with carbapenem-resistant Klebsiella history of ESBL-producing Klebsiella bacteremia, secondary to the port S/P removal S/P treatment for healthcare-associated pneumonia history of C diff associated diarrhea history of UTI with yeast history healthcare-associated pneumonia Severe cardiomyopathy with EF 10-15 % paroxysmal atrial fibrillation Coronary artery disease S/P stenting history of aortic aneurysm history of SVT S/P AICD placement S/P procedure on his prostate in 2012 S/P partial colectomy and colostomy Plan will continue Merrem (day 10 of 10 days) and should repeat blood cx after antibiotics are finished (will repeat today) - if the repeat blood cx become positive, should get SERGO to rule out pacemaker infection will continue to monitor clinically while the patient is in the hospital
[2017-07-22] MEDS: Insulin Lispro (humaLOG) MEDIUM Coverage SC SCH ×3 (12:35→21:41)
[2017-07-22] MEDS: Milrinone 20mg/100ml D5W 100 ML IV PRN (14:13)
--- NOTE | 2017-07-22 14:58 | PN ---
DATE: 07/22/2017 LOCATION: The patient is in room 303, bed 1. REASON FOR CONSULTATION: Followup on coronary artery disease, history of CHF, paroxysmal atrial fibrillation, ICD insertion, deconditioning, renal dysfunction. SUBJECTIVE: The patient is lying comfortably in bed without chest pain, shortness of breath, or palpitation. PHYSICAL EXAMINATION: VITAL SIGNS: Blood pressure is 137/89, respirations 20, pulse 98, temperature 97.4. HEENT: Head is normocephalic. Eyes, pupils are normal. Conjunctivae slightly pale. NECK: JVP low. Carotids are equal. THORAX: AP diameter normal. LUNGS: Clear. CARDIOVASCULAR: S1 and S2. ABDOMEN: The patient has colostomy. PERIPHERIES: No clubbing. No cyanosis. LABORATORY DATA: WBC 3.3, hemoglobin 8.4, hematocrit 27.0, and platelets 400. Sodium 136, potassium 5.8, BUN 73, creatinine 2.7, random glucose 402. AST and ALT, calcium, phosphorus, magnesium, total protein, and albumin are normal. Prothrombin time 81.2. INR 6.79. DIAGNOSES: Nddcl-[id number] kidney failure. Elevated PT/INR. Coronary artery disease. History of angioplasty and stent insertion in left anterior descending. Status post endovascular stent for abdominal aortic aneurysm. Hyperkalemia. Cardiomyopathy. Severely decreased left ventricular function, status post automatic implantable cardioverter defibrillator insertion. Paroxysmal atrial fibrillation. Gram-negative sepsis. Anemia. Above therapeutic prothrombin time. PLAN: We will give Kayexalate 30 mg with sorbitol today. We will give vitamin K 5 mg p.o., and warfarin has been already put on hold. We will repeat blood work in the morning. The patient is on aspirin 81 mg daily. Ferrex 150 mg p.o. b.i.d., Flomax 0.4 mg daily, digoxin 0.125 mg p.o. Tuesday, Tuesday, and Tuesday. Lasix 20 mg daily. Insulin as ordered. Merrem 500 mg IV q.12 hours. Primacor drip, Proscar 5 mg daily. We will repeat labs, CBC, SMA-7, magnesium, phosphorus, PT/INR in the morning. We will continue to follow. Arabella Lopez MD
[2017-07-22] MEDS: Insulin Detemir 100 units/ml Vial (Levemir) SC SCH (18:11)
--- NOTE | 2017-07-22 19:01 | PN ---
DATE: 07/22/2017 SUBJECTIVE: The patient is seen lying in the bed. is at bedside. She is translating. He denies any pain. He denies any shortness of breath. Denies any nausea, vomiting. He has good colostomy output. PHYSICAL EXAMINATION: GENERAL: Elderly male lying in bed. VITAL SIGNS: Blood pressure 140/85, heart rate 99, respiratory rate 20, temperature 97.4. HEENT: Normocephalic, atraumatic, positive pallor. NECK: Supple, no JVD. LUNGS: Bilateral equal air entry, no rales. CARDIAC: S1 and S2, regular rate and rhythm, no murmur, no rub. ABDOMEN: Distended, soft, positive colostomy, bowel sounds present. EXTREMITIES: No lower extremity edema. INTAKE AND OUTPUT: Not charted. LABORATORY DATA: WBC 3.3, hemoglobin 8.4, hematocrit 27, platelets 400. Sodium 136, potassium 5.8, chloride 106, CO2 of 22, BUN 73, creatinine 2.7, glucose 402, calcium 8.7, phosphorus 4.3, magnesium 1.8, albumin 3.0. CURRENT MEDICATIONS: Coreg 25 b.i.d., Coumadin, DuoNeb, Ecotrin, Ferrex, Flomax, insulin, Lanoxin, Lasix 20 p.o. daily, Levemir, meropenem, PhosLo, prednisone, Proscar, Protonix, sodium bicarbonate 650 t.i.d. ASSESSMENT: 1. 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 2. Vee-mxniodi-lhflxjecy diabetes mellitus. 3. Hypertension. 4. Chronic kidney disease stage 4. 5. Resolving acute kidney injury. 6. No uremic signs or symptoms. PLAN: 1. Agree with Kayexalate today. 2. Agree with Lasix. 3. Follow a 2 gm potassium diet. 4. Continue sodium bicarbonate. 5. Discharge planning. Kaylen Crump MD
[2017-07-23] MEDS: Albuterol-Ipratrop 3 mg / 0.5 (3 ml) UD IH SCH ×2 (02:04→07:18)
--- NOTE | 2017-07-23 03:14 | PN ---
DATE: SUBJECTIVE: The patient seems doing better, stable. The patient had no respiratory distress. He had been prepared to be discharge; however, for the milrinone IV, has problem getting to him. We will hold discharge till tomorrow. Also, the patient known to his PT/INR is awaited today and Cardiology seen the patient and he gave him some vitamin K and we hold his Coumadin anyway until Tuesday. PHYSICAL EXAMINATION GENERAL: Here he seems stable. VITAL SIGNS: Temperature 98, heart rate 83, blood pressure is 143/82, respirations 20 and saturation 97% to 99% on 2 L. HEAD AND NECK: Normal. No JVD. No thyromegaly. CHEST: Clear. Few rhonchi. CARDIAC: First sound and second sound normal. Systolic murmur across the aortic area. ABDOMEN: Soft. Right side colostomy. EXTREMITIES: Mild edema. NEUROLOGIC: The patient does have left hemiplegia and more of both lower extremity weakness. LABORATORY STUDIES: His chemistry noted for sodium 136, potassium 5.8, chloride 106, bicarb 22, BUN 73, creatinine 2.7 and blood sugar 402. Liver function test is normal. IMPRESSION AND PLAN: 1. Gram-negative sepsis. The patient off meropenem. Repeat blood culture will be done. We will follow up as an outpatient. 2. Hyperkalemia, uncontrolled diabetes. The patient was given 10 more units of insulin and Solu-Medrol, we will discontinue. We will put the patient p.o. prednisone 15 mg daily, to be tapered over few days later. Also, the patient is on Kayexalate, we will repeat labs in the morning. 3. Ischemic cardiomyopathy. Congestive heart failure, continue IV milrinone. Waiting for to be started again before discharging home. 4. The patient has lung carcinoma, chronic obstructive pulmonary disease. Continue prednisone. Continue nebulizer treatment and inhaled bronchodilators. Continue current therapy. Followup clinically. We will discontinue in the morning hopefully. We will repeat PT INR tomorrow. Dexter Palacios MD
[2017-07-23] MEDS: Meropenem 500 MG in NS 0.9% 50 ML IVPB SCH (05:47)
[2017-07-23] MEDS: Pantoprazole 20 mg EC Tab PO SCH (05:48)
[2017-07-23] MEDS: Insulin Lispro (humaLOG) MEDIUM Coverage SC SCH ×2 (06:45→12:25)
[2017-07-23] MEDS: Insulin Detemir 100 units/ml Vial (Levemir) SC SCH (06:47)
[2017-07-23 07:22] LABS: HEMOGLOBIN 8.5 g/dL (14.0-18.0); MEAN CORPUSCULAR HEMOGLOBIN 23.8 pg (25.0-35.0); MEAN CORPUSCULAR HGB CONC 30.9 g/dl (31.0-37.0); MEAN PLATELET VOLUME 9.6 fl (7.0-11.0); RBC 3.57 10^6/uL (3.5-6.1); RED CELL DISTRIBUTION WIDTH 16.4 % (11.5-14.5); WHITE BLOOD COUNT 9.5 10^3/ul (4.5-11.0)
[2017-07-23 07:52] LABS: ALB/GLOB RATIO 0.9 (1.1-1.8); ALBUMIN 3.1 g/dL (3.0-4.8); CALCIUM 8.9 mg/dL (8.4-10.5)
[2017-07-23 08:06] LABS: PROTHROMBIN TIME 63.8 SECONDS (9.4-12.5)
[2017-07-23 08:08] LABS: INR 5.36 (0.93-1.08)
[2017-07-23] MEDS: Iron Complex Polysacch 150mg Cap PO SCH (08:46)
[2017-07-23 10:52] VITALS: BP 155/81; PULSE 101; RESP 20; TEMP 98.6; O2SAT 96
--- NOTE | 2017-07-23 12:35 | CP.PCM.PN ---
Subjective - Date & Time of Evaluation Date of Evaluation: 07/23/17 Time of Evaluation: 12:25 - Subjective Subjective: Comfortable, not in distress, afebrile. Objective - Vital Signs/Intake and Output Vital Signs (last 24 hours): Temp Pulse Resp BP Pulse Ox 97.6 F 85 18 149/91 H 99 07/22/17 10:00 07/23/17 08:45 07/22/17 10:00 07/23/17 08:45 07/22/17 10:00 - Medications Medications: Current Medications Acetaminophen (Tylenol 325mg Tab) 650 mg PO Q6H PRN; Protocol PRN Reason: Fever >100.4 F Al Hydrox/Mg Hydrox/Simethicone (Maalox Plus 30 Ml) 30 ml PO BID PRN; Protocol PRN Reason: Indigestion / Heartburn Albuterol/Ipratropium (Duoneb 3 Mg/0.5 Mg (3 Ml) Ud) 3 ml IH [id number] [facility] PRN Reason: Protocol Last Admin: 07/23/17 07:18 Dose: 3 ml Aspirin (Ecotrin) 81 mg PO 0800 [facility] PRN Reason: Protocol Last Admin: 07/23/17 08:45 Dose: 81 mg Calcium Acetate (Phoslo) 667 mg PO 0730,1230,1800 [facility] PRN Reason: Protocol Last Admin: 07/23/17 08:46 Dose: 667 mg Carvedilol (Coreg) 25 mg PO 0800,1800 [facility] PRN Reason: Protocol Last Admin: 07/23/17 08:45 Dose: 25 mg Digoxin (Lanoxin) 0.125 mg PO MWF [facility] Last Admin: 07/22/17 10:54 Dose: 0.125 mg Finasteride (Proscar) 5 mg PO DAILY [facility] PRN Reason: Protocol Last Admin: 07/22/17 10:55 Dose: 5 mg Furosemide (Lasix) 20 mg PO DAILY [facility] Last Admin: 07/22/17 10:55 Dose: 20 mg Milrinone Lactate/Dextrose (Primacor 20mg/100ml D5w) 100 mls @ 4.8 mls/hr IV .[id number] PRN; Protocol PRN Reason: Other Last Admin: 07/22/17 14:13 Dose: 4.8 mls/hr Meropenem 500 mg/ Sodium (Chloride) 100 mls @ 100 mls/hr IVPB Q12H [facility] Last Admin: 07/23/17 05:47 Dose: 100 mls/hr Insulin Detemir (Levemir) 12 unit SC 0730,1730 [facility] PRN Reason: Protocol Last Admin: 07/23/17 06:47 Dose: 12 unit Insulin Human Lispro (Humalog Med) 0 units SC ACHS [facility] PRN Reason: Protocol Last Admin: 07/23/17 06:45 Dose: 3 units Mirtazapine (Remeron) 15 mg PO HS [facility] Last Admin: 07/22/17 21:42 Dose: 15 mg Pantoprazole Sodium (Protonix Ec Tab) 20 mg PO 0600 [facility] PRN Reason: Protocol Last Admin: 07/23/17 05:48 Dose: 20 mg Phytonadione (Vitamin K Tab) 5 mg PO DAILY [facility] Last Admin: 07/22/17 10:56 Dose: 5 mg Polysaccharide Iron Complex (Ferrex-150) 150 mg PO 0800,1800 [facility] PRN Reason: Protocol Last Admin: 07/23/17 08:46 Dose: 150 mg Prednisone (Prednisone Tab) 15 mg PO DAILY [facility] PRN Reason: Protocol Last Admin: 07/22/17 10:55 Dose: 15 mg Sodium Bicarbonate (Sodium Bicarbonate Tab) 650 mg PO TID [facility] Last Admin: 07/22/17 18:17 Dose: 650 mg Tamsulosin HCl (Flomax) 0.4 mg PO 1800 [facility] PRN Reason: Protocol Last Admin: 07/22/17 18:16 Dose: 0.4 mg Warfarin Sodium (Coumadin) 2 mg PO 1800 [facility] PRN Reason: Protocol Last Admin: 07/20/17 18:04 Dose: 2 mg - Labs Labs: 07/23/17 06:30 07/23/17 06:30 PT 63.8 SECONDS (9.4-12.5) H 07/23/17 06:30 INR 5.36 (0.93-1.08) H* 07/23/17 06:30 - Constitutional Appears: Chronically Ill - Head Exam Head Exam: NORMAL INSPECTION - Neck Exam Neck Exam: absent: Meningismus - Respiratory Exam Respiratory Exam: Decreased Breath Sounds - Cardiovascular Exam Cardiovascular Exam: +S1, +S2 - GI/Abdominal Exam GI & Abdominal Exam: Soft. absent: Tenderness Assessment and Plan - Assessment and Plan (Free Text) Plan: Assessment Severe sepsis due to ESBL E. coli bacteremia, unclear source, cannot rule out pacemaker infection history of sepsis due to right sided healthcare-associated pneumonia history of UTI with carbapenem-resistant Klebsiella history of ESBL-producing Klebsiella bacteremia, secondary to the port S/P removal S/P treatment for healthcare-associated pneumonia history of C diff associated diarrhea history of UTI with yeast history healthcare-associated pneumonia Severe cardiomyopathy with EF 10-15 % paroxysmal atrial fibrillation Coronary artery disease S/P stenting history of aortic aneurysm history of SVT S/P AICD placement S/P procedure on his prostate in 2012 S/P partial colectomy and colostomy Plan will continue Merrem (day 11 of 10-14 days days); follow up repeat blood cx taken yesterday - if the repeat blood cx become positive, should get SERGO to rule out pacemaker infection will continue to monitor clinically while the patient is in the hospital
--- NOTE | 2017-07-23 17:58 | PN ---
DATE: 07/23/2017 SUBJECTIVE: The patient is seen lying in bed. He is awake, he is alert, he is comfortable. PHYSICAL EXAMINATION VITAL SIGNS: Blood pressure 155/81, heart rate 101, respiratory rate 20, temperature 98.6. HEENT: Normocephalic, atraumatic. Neck: Supple, no JVD. LUNGS: Bilateral equal entry, rales. CARDIAC: S1, S2, regular rhythm, no murmur, no rub. ABDOMEN: Soft, nondistended, nontender, positive colostomy. EXTREMITIES: No extremity edema. INTAKE AND OUTPUT: Not charted. LABORATORY DATA: WBC 9.5, hemoglobin 8.5, hematocrit 27.5, platelets 386. Sodium 137, potassium 5.3, chloride 103, CO2 24, BUN 75, creatinine 2.5, glucose 260, calcium 8.9, albumin 3.1. ASSESSMENT AND PLAN: 1. Resolved acute kidney injury, underlying chronic kidney disease stage IV. 2. Mild hyperkalemia, continue to follow a 2 g sodium diet and continue sodium bicarbonate. 3. Frv-pyfembu-appvycteg diabetes mellitus. 4. Hypertension. 5. Dementia. 6. Anemia of chronic disease. PLAN: 1. Continue current management. 2. Avoid nephrotoxins. 3. We will follow a 2 g sodium diet and 2 g potassium diet. Kaylen Crump MD
--- NOTE | 2017-07-26 09:34 | DS ---
HISTORY OF PRESENT ILLNESS: The patient was admitted to TCU for continuation of IV meropenem. Patient finished his IV antibiotics. He did well. He does have a history of COPD. He has a history of lung CA, renal failure, atrial fibrillation, ischemic cardiomyopathy which has been managed while I was in TCU. His INR was elevated; however, was monitored. We will hold off on Coumadin. We will resume it day after discharge. We will repeat PT/INR and will cut down the Coumadin to 1 mg daily. Patient on day of discharge is stable. He has no new complaints. His breathing is better. He did have some congestion, was given Lasix and seems a lot better with nebulizers treatment and Lasix. PHYSICAL EXAMINATION: VITAL SIGNS: On discharge on July 23, temperature 98.6, heart rate 101, blood pressure 155/81, respirations 20, saturation 96%. HEAD AND NECK: No JVD. CHEST: Clear. CARDIAC: First sound and second sound normal. Systolic ejection murmur. ABDOMEN: Soft. Colostomy. EXTREMITIES: No edema. NEUROLOGIC: Normal. LABORATORY DATA: White count 9.5, hemoglobin 8.5, hematocrit 27.5, and platelets 386,000. Chemistry: Sodium 137, potassium 5.3, chloride 103, bicarbonate 24, BUN 75, creatinine 2.5, blood sugar 260. DISCHARGE DIAGNOSES: 1. Gram-negative bacteremia, sepsis, finished meropenem. 2. History of chronic obstructive pulmonary disease. Continue nebulizer treatment. 3. History of ischemic cardiomyopathy, congestive heart failure. Continue Lasix 20 mg daily. 4. Hyperkalemia, was treated with Kayexalate, advised to stay away from any potassium rich diet, explained to the patient. 5. Diabetes, was in the 300 range secondary to steroids, switched to p.o. prednisolone. We will continue Lantus and insulin coverage before meals. 6. Chronic renal failure, improved. Plan is to continue the medication. continue IV milrinone. Nurse came and evaluated and started the patient on milrinone bump and milrinone IV infusions. DISCHARGE MEDICATIONS: Coumadin 1 mg daily, Flomax 0.4 mg daily, multivitamins, probiotics, insulin before meals, Lantus 14 units at bedtime, Lasix 20 mg daily, nebulizer treatment, inhaler Ellipta once a day, Proscar 5 mg daily, iron pills once a day, Pepcid 20 mg once a day, Coreg 25 mg b.i.d., PhosLo, Lipitor, Ecotrin 81 mg daily, prednisolone was started at 15 mg to be tapered over the next 5 days, sodium bicarbonate 650 t.i.d. We will monitor for congestive heart failure symptoms. Remeron 15 mg at night; Lanoxin 0.125 mg p.o. Tuesday, Tuesday, Tuesday; Tylenol and Xanax 0.25 mg b.i.d. Dexter Palacios MD
== END 2017-07-23 13:14 | disposition home or self-care (01) | DRG 872 ==
LOC: TRCU 15:01
PROVIDERS: ADMIT Internal Medicine; ATTEND Internal Medicine
PROC: F07M6ZZ Therapeutic Exercise Treatment of Musculoskeletal System - Whole Body (ICD-10-PCS; principal; 2017-07-16)
PROC: F08Z1ZZ Dressing Techniques Treatment (ICD-10-PCS; 2017-07-18)
PROC: F08Z2ZZ Grooming/Personal Hygiene Treatment (ICD-10-PCS; 2017-07-18)
PROC: F08Z3ZZ Feeding/Eating Treatment (ICD-10-PCS; 2017-07-18)
DX: A41.51 Sepsis due to Escherichia coli [E. coli] (principal); D68.9 Coagulation defect, unspecified; E11.22 Type 2 diabetes mellitus with diabetic chronic kidney disease; E11.51 Type 2 diabetes mellitus with diabetic peripheral angiopathy without gangrene; E11.65 Type 2 diabetes mellitus with hyperglycemia; N18.4 Chronic kidney disease, stage 4 (severe); N17.9 Acute kidney failure, unspecified; I50.22 Chronic systolic (congestive) heart failure; C34.90 Malignant neoplasm of unspecified part of unspecified bronchus or lung; N39.0 Urinary tract infection, site not specified; N25.81 Secondary hyperparathyroidism of renal origin; I13.0 Hypertensive heart and chronic kidney disease with heart failure and stage 1 through stage 4 chronic kidney disease, or unspecified chronic kidney disease; I48.0 Paroxysmal atrial fibrillation; I48.2 Chronic atrial fibrillation; J44.9 Chronic obstructive pulmonary disease, unspecified; I25.5 Ischemic cardiomyopathy; B96.1 Klebsiella pneumoniae [K. pneumoniae] as the cause of diseases classified elsewhere; R65.20 Severe sepsis without septic shock; Z92.3 Personal history of irradiation; N40.0 Benign prostatic hyperplasia without lower urinary tract symptoms; R79.1 Abnormal coagulation profile; T38.0X5A Adverse effect of glucocorticoids and synthetic analogues, initial encounter; Z16.12 Extended spectrum beta lactamase (ESBL) resistance; Z79.01 Long term (current) use of anticoagulants; Z79.4 Long term (current) use of insulin; Z79.82 Long term (current) use of aspirin; Z79.899 Other long term (current) drug therapy; Z85.118 Personal history of other malignant neoplasm of bronchus and lung; Z86.718 Personal history of other venous thrombosis and embolism; Z86.73 Personal history of transient ischemic attack (TIA), and cerebral infarction without residual deficits; Z86.79 Personal history of other diseases of the circulatory system; Z87.440 Personal history of urinary (tract) infections; I25.10 Atherosclerotic heart disease of native coronary artery without angina pectoris; D50.9 Iron deficiency anemia, unspecified; D63.1 Anemia in chronic kidney disease; E87.5 Hyperkalemia; E78.5 Hyperlipidemia, unspecified; F03.90 Unspecified dementia, unspecified severity, without behavioral disturbance, psychotic disturbance, mood disturbance, and anxiety; Z90.49 Acquired absence of other specified parts of digestive tract; Z93.3 Colostomy status; Z95.0 Presence of cardiac pacemaker; Z95.1 Presence of aortocoronary bypass graft; Z95.810 Presence of automatic (implantable) cardiac defibrillator; Z98.61 Coronary angioplasty status; Z74.01 Bed confinement status

== ENCOUNTER 2017-08-07 19:03 | Inpatient (IN) | payer MEDICARE, MEDICAID ==
[2017-08-07 19:03] VITALS: PULSE 95; BMI 28.5
--- NOTE | 2017-08-07 19:31 | ED PDOC ---
Arrival/HPI <Leoncio Mata - Last Filed: 08/07/17 23:28> - General Historian: Patient, Family - Critical Care Critical Care Minutes: 75 minutes - History of Present Illness Time/Duration: 1-3 hours Symptom Onset: Gradual Symptom Course: Worsening Quality: Unable to Describe Severity Level: Moderate Activities at Onset: Rest, Sleeping Context: Sitting <Belen Downs - Last Filed: 08/09/17 23:19> - General Chief Complaint: Respiratory Distress Time Seen by Provider: 08/07/17 19:07 - History of Present Illness Narrative History of Present Illness (Text): 08/07/17 19:26 Pt is a 72 yo M brought in by family for SOB and weakness since 17:00 today. Pt has sig PMH of CHF, CAD, DMII with multiple admissions previously for similar complaints. Pt's reports poor appetite and concern for a UTI. Pt responds to conversation by turning head and eye contact but does not speak. Denies chest pain, headache, LOC, GI bleeding and hematuria. (Belen Downs) Past Medical History - Provider Review Nursing Documentation Reviewed: Yes - Travel History Have you recently traveled outside [place] w/in the past 3 mons?: No - Infectious Disease Hx of Infectious Diseases: None - Tetanus Immunization Tetanus Immunization: Unknown - Cardiac Hx Cardiac Disorders: Yes Hx NV: Yes Hx Hypertension: Yes - Pulmonary Hx Asthma: Yes Hx Emphysema: Yes - Neurological HX Cerebrovascular Accident: Yes - HEENT Hx HEENT Disorder: Yes Hx Cataracts: Yes - Renal Hx Renal Disorder: Yes - Endocrine/Metabolic Hx Diabetes Mellitus Type 2: Yes - Hematological/Oncological Hx Blood Disorders: Yes Hx Anemia: Yes - Integumentary Hx Dermatological Disorder: No - Musculoskeletal/Rheumatological Hx Falls: No - Gastrointestinal Hx Gastrointestinal Disorders: Yes (colostomy draining liquid brown) - Genitourinary/Gynecological Hx Reproductive Disorders: Yes - Psychiatric Hx Depression: Yes Hx Substance Use: No - Surgical History Hx Abdominal Aortic Aneurysm Repair: Yes (complicated by endoleak) Other/Comment: Colostomy, R side - Anesthesia Hx Anesthesia: Yes - Suicidal Assessment Feels Threatened In Home Enviroment: No <Belen Downs - Last Filed: 08/09/17 23:19> Family/Social History - Physician Review Nursing Documentation Reviewed: Yes Family/Social History: Diabetes, Hypertension Smoking Status: Former Smoker Hx Alcohol Use: No Hx Substance Use: No Hx Substance Use Treatment: No <Belen Downs - Last Filed: 08/09/17 23:19> Allergies/Home Meds <Leoncio Mata - Last Filed: 08/07/17 23:28> <Belen Downs - Last Filed: 08/09/17 23:19> Allergies/Adverse Reactions: Allergies No Known Allergies Allergy (Verified 08/08/17 02:04) Home Medications: Home Meds Medication Instructions Recorded Confirmed Unobtainable 08/08/17 08/08/17 Review of Systems - Review of Systems Systems not reviewed;Unavailable: Respiratory Distress Constitutional: Fatigue. absent: Normal, Weight Change, Fevers, Night Sweats, Other Eyes: Normal ENT: Normal Respiratory: SOB, Other Cardiovascular: Edema, Orthopnea (nocturnal) Gastrointestinal: Normal. absent: Abdominal Pain, Stool Changes, Constipation, Diarrhea, Nausea, Vomiting, Appetite Changes, Hematochezia, Hematemesis, Anorexia, Food Intolerance, Other Genitourinary Male: Frequency (infreq), Urinary Output Changes (no output since this am). absent: Normal, Dysuria, Hematuria, Other Musculoskeletal: Normal. absent: Arthralgias, Back Pain, Neck Pain, Joint Swelling, Myalgias, Other Skin: Normal Neurological: Normal Endocrine: Normal Hemo/Lymphatic: Normal <Belen Downs - Last Filed: 08/09/17 23:19> Physical Exam Vital Signs Reviewed: Yes Blood Pressure: Normal Pulse: Regular Respiratory Rate: Tachypneic Appearance: Positive for: Ill-Appearing, Uncomfortable Pain Distress: Mild Mental Status: Positive for: Lethargic - Systems Exam Head: Present: Atraumatic, Normocephalic Pupils: Present: PERRL. No: Non-Reactive, Pinpoint, Other Extroacular Muscles: Present: EOMI. No: Gaze Palsy, Entrapment, Other Conjunctiva: Present: Normal Ears: Present: Normal Mouth: Present: Moist Mucous Membranes Respiratory/Chest: Present: Respiratory Distress, Rales, Tachypneic Cardiovascular: Present: Regular Rate and Rhythm, Normal S1, S2 Abdomen: Present: Normal Bowel Sounds. No: Tenderness, Distention, Peritoneal Signs Back: Present: Normal Inspection Skin: Present: Warm, Dry, Normal Color <Belen Downs - Last Filed: 08/09/17 23:19> Vital Signs Temp Pulse Resp BP Pulse Ox 08/08/17 14:17 126/87 08/08/17 11:57 105 H 150/61 08/08/17 06:15 98.6 F 92 H 18 142/92 H 97 08/08/17 04:35 90 16 133/60 99 08/08/17 03:44 97.9 F 92 H 18 139/80 08/08/17 02:52 98.3 F 86 17 121/77 08/08/17 02:44 86 136/87 08/08/17 02:37 98 F 90 18 136/87 08/08/17 02:09 126/80 08/08/17 00:26 98 H 18 130/69 97 08/07/17 20:03 98.2 F 88 18 135/84 99 08/07/17 20:00 22 135/84 98 Medical Decision Making - Lab Interpretations I have reviewed the lab results: Yes <Leoncio Mata - Last Filed: 08/07/17 23:28> ED Course and Treatment: 08/07/17 22:[address] Palacios, who is aware and agrees with plan. Accepts pt in to his service. Pt admitted to Telemetry for CHF. (Leoncio Mata) - Lab Interpretations Lab Results: 08/07/17 20:10 08/07/17 20:10 Lab Results 08/07/17 23:15: Blood Type O NEGATIVE, Antibody Screen Negative, Crossmatch See Detail, BBK History Checked Patient has bt 08/07/17 21:35: Influenza Typ A,B (EIA) Negative for flu a/b 08/07/17 21:35: Urine Color Yellow, Urine Appearance Sl cloudy, Urine pH 7.0, Ur Specific [place] 1.015, Urine Protein 100 H, Urine Glucose (UA) 100 H, Urine Ketones Negative, Urine Blood Trace-intact H, Urine Nitrate Negative, Urine Bilirubin Negative, Urine Urobilinogen 0.2, Ur Leukocyte Esterase Negative, Urine RBC 1 - 3, Urine WBC 1 - 3, Ur Epithelial Cells 1 - 3, Urine Bacteria Few 08/07/17 20:10: Sodium 134, Chloride 100, Potassium 4.4, Carbon Dioxide 25, Anion Gap 14, BUN 42 H, Creatinine 2.8 H, Est GFR ( Amer) 27, Est GFR ( Non-Af Amer) 22, Random Glucose 212 H, Calcium 9.2, Total Bilirubin 0.6, AST 29 , ALT 31, Alkaline Phosphatase 98, Lactate Dehydrogenase 505, Total Creatine Kinase 43, Troponin I 0.16 H* D, NT-Pro-B Natriuret Pep 48148 H, Total Protein 6.7, Albumin 3.1, Globulin 3.6, Albumin/Globulin Ratio 0.9 L 08/07/17 20:10: pO2 258 H, VBG pH 7.49 H, VBG pCO2 35.0 L, VBG HCO3 26.7, VBG Total CO2 27.8, VBG O2 Sat (Calc) 100.3 H, VBG Base Excess 3.5 H, VBG Potassium 4.3, Sodium 133.0, Chloride 104.0, Glucose 230 H, Lactate 0.7, FiO2 21.0, Venous Blood Potassium 4.3 08/07/17 20:10: WBC 5.1 D, RBC 3.20 L, Hgb 7.9 L, Hct 25.3 L, MCV 79.1 L, MCH 24.7 L, MCHC 31.2, RDW 18.4 H, Plt Count 230, MPV 9.9, Gran % 66.5, Lymph % ( Auto) 15.6 L, [place] % (Auto) 13.6 H, Eos % (Auto) 4.1, Baso % (Auto) 0.2, Gran # 3.42, Lymph # 0.8 L, [place] # 0.7 H, Eos # 0.2, Baso # 0.01 08/07/17 20:00: PT 40.6 H, INR 3.47 H, APTT 40.6 H - RAD Interpretation Radiology Orders: 08/07/17 20:47 CHEST PORTABLE [RAD] Stat - Medication Orders Current Medication Orders: Carvedilol (Coreg) 25 mg PO BID ANTHONY Last Admin: 08/09/17 18:42 Dose: 25 mg MAR Pulse and Blood Pressure Document 08/09/17 18:42 LAURA (Rec: 08/09/17 18:42 LAURA [id number]) Pulse Pulse Rate (60-90) 112 Blood Pressure Blood Pressure (100/60-150/90) 140/95 Furosemide (Lasix) 40 mg IV DAILY [facility] Stop: 08/11/17 11:26 Milrinone Lactate/Dextrose (Primacor 20mg/100ml D5w) 100 mls @ 8.981 mls/hr IV .Q11H9M PRN; Protocol; 0.3 MCG/KG/MIN PRN Reason: TITRATE PER MD ORDER Last Admin: 08/09/17 22:55 Dose: 0.3 mcg/kg/min, 8.981 mls/hr eMAR Start Stop Document 08/09/17 22:55 CO (Rec: 08/09/17 22:56 CO [place] [id number]) Intravenous Solution Start Date 08/09/17 Start Time 22:56 Titration Intervention Document 08/09/17 22:55 CO (Rec: 08/09/17 22:56 CO [place] [id number]) Titration Intake Cumulative Intake (Rx) 400 Waste Amount 0 Container Volume 100 Titration Dosing Titration Dose 0.3 IV Rate 8.981 Intake/Decrease Started/Running Cumulative Dose 80 Meropenem 500 mg/ Sodium (Chloride) 100 mls @ 100 mls/hr IVPB Q12 ANTHONY PRN Reason: Protocol Stop: 08/15/17 20:01 Last Admin: 08/09/17 22:50 Dose: 100 mls/hr eMAR Start Stop Document 08/09/17 22:50 CO (Rec: 08/09/17 22:50 CO [place] [id number]) Intravenous Solution Start Date 08/09/17 Start Time 22:50 Doxycycline Hyclate 100 mg/ (Sodium Chloride) 100 mls @ 100 mls/hr IVPB Q12 ANTHONY PRN Reason: Protocol Last Admin: 08/09/17 22:50 Dose: 100 mls/hr eMAR Start Stop Document 08/09/17 22:50 CO (Rec: 08/09/17 22:50 CO [place] [id number]) Intravenous Solution Start Date 08/09/17 Start Time 22:50 Insulin Detemir (Levemir) 10 unit SC ACB ANTHONY Insulin Human Regular (Humulin R Low) 0 units SC ACHS ANTHONY PRN Reason: Protocol Last Admin: 08/09/17 18:43 Dose: 2 units MAR Blood Glucose Document 08/09/17 18:43 LAURA (Rec: 08/09/17 18:43 LAURA [id number]) Blood Glucose Finger Stick Blood Glucose (70-120) 241 Subcutaneous Administrations Document 08/09/17 18:43 LAURA (Rec: 08/09/17 18:43 LAURA [id number]) Injection Site MAR Injection Site Left Arm Charges for Administration # of Subcutaneous Administrations 1 Levalbuterol HCl (Xopenex) 0.63 mg IH Q4 [facility] Last Admin: 08/09/17 20:37 Dose: 0.63 mg Magnesium Oxide (Mag-Ox) 400 mg PO BID [facility] Methylprednisolone (Solu-Medrol) 20 mg IVP BID [facility] Last Admin: 08/09/17 21:39 Dose: 20 mg IVP Administration Document 08/09/17 21:39 CO (Rec: 08/09/17 21:40 CO [id number]) Charges for Administration # of IVP Administrations 1 Pantoprazole Sodium (Protonix Inj) 40 mg IVP DAILY [facility] Last Admin: 08/09/17 09:30 Dose: 40 mg IVP Administration Document 08/09/17 09:30 LAURA (Rec: 08/09/17 09:30 LAURA [id number]) Charges for Administration # of IVP Administrations 1 Discontinued Medications Carvedilol (Coreg) 12.5 mg PO BID STA Stop: 08/08/17 02:58 Carvedilol (Coreg) 12.5 mg PO BID [facility] Last Admin: 08/09/17 09:29 Dose: 12.5 mg MAR Pulse and Blood Pressure Document 08/09/17 09:29 LAURA (Rec: 08/09/17 09:29 LAURA [id number]) Pulse Pulse Rate (60-90) 126 Blood Pressure Blood Pressure (100/60-150/90) 144/94 Furosemide (Lasix) 20 mg IVP STAT STA Stop: 08/07/17 19:22 Last Admin: 08/07/17 20:00 Dose: 20 mg MAR Blood Pressure Document 08/07/17 20:00 RD (Rec: 08/07/17 20:16 RD [id number]) Blood Pressure Blood Pressure (100/60-150/90) 135/84 IVP Administration Document 08/07/17 20:00 RD (Rec: 08/07/17 20:16 RD [id number]) Charges for Administration # of IVP Administrations 1 Furosemide (Lasix) 20 mg IVP ONCE ONE Stop: 08/08/17 01:35 Last Admin: 08/08/17 02:09 Dose: 20 mg MAR Blood Pressure Document 08/08/17 02:09 RD (Rec: 08/08/17 02:09 RD [id number]) Blood Pressure Blood Pressure (100/60-150/90) 126/80 IVP Administration Document 08/08/17 02:09 RD (Rec: 08/08/17 02:09 RD [id number]) Charges for Administration # of IVP Administrations 1 Furosemide (Lasix) 40 mg IVP ONCE ONE Stop: 08/09/17 08:49 Last Admin: 08/09/17 09:08 Dose: 40 mg MAR Blood Pressure Document 08/09/17 09:08 JZA (Rec: 08/09/17 09:16 JZA [id number]) Blood Pressure Blood Pressure (100/60-150/90) 144/94 IVP Administration Document 08/09/17 09:08 JZA (Rec: 08/09/17 09:16 JZA [id number]) Charges for Administration # of IVP Administrations 1 Furosemide (Lasix) 40 mg IVP ONCE ONE Stop: 08/09/17 21:09 Last Admin: 08/09/17 21:47 Dose: 40 mg MAR Blood Pressure Document 08/09/17 21:47 CO (Rec: 08/09/17 21:47 CO [id number]) Blood Pressure Blood Pressure (100/60-150/90) 142/95 IVP Administration Document 08/09/17 21:47 CO (Rec: 08/09/17 21:47 CO [id number]) Charges for Administration # of IVP Administrations 1 Vancomycin HCl (Vancomycin 1gm) 1 gm in 250 mls @ 167 mls/hr IVPB STAT STA PRN Reason: Protocol Stop: 08/08/17 00:19 Last Admin: 08/07/17 23:17 Dose: 167 mls/hr eMAR Start Stop Document 08/07/17 23:17 RD (Rec: 08/07/17 23:17 RD [id number]) Intravenous Solution Start Date 08/07/17 Start Time 23:17 End Date 08/08/17 End time 00:47 Total Infusion Time 90 Milrinone Lactate/Dextrose (Primacor 20mg/100ml D5w) 100 mls @ 11.226 mls/hr IV .Q8H55M PRN; Protocol; 0.375 MCG/KG/MIN PRN Reason: TITRATE PER MD ORDER Meropenem 1 gm/ Sodium (Chloride) 100 mls @ 100 mls/hr IVPB ONCE ONE PRN Reason: Protocol Stop: 08/08/17 08:59 Phytonadione 10 mg/ Sodium (Chloride) 51 mls @ 100 mls/hr IV ONCE ONE Stop: 08/08/17 05:15 Last Admin: 08/08/17 04:50 Dose: Magnesium Sulfate 2 gm/ Sodium (Chloride) 104 mls @ 102 mls/hr IVPB ONCE ONE Stop: 08/09/17 18:39 Last Admin: 08/09/17 18:48 Dose: 102 mls/hr eMAR Start Stop Document 08/09/17 18:48 LAURA (Rec: 08/09/17 18:49 LAURA [id number]) Intravenous Solution Start Date 08/09/17 Start Time 18:48 End Date 08/09/17 End time 19:48 Total Infusion Time 60 Phytonadione (Vitamin K Inj) 1 mg SC STAT STA Stop: 08/08/17 02:58 Last Admin: 08/08/17 03:46 Dose: 1 mg Subcutaneous Administrations Document 08/08/17 03:46 RD (Rec: 08/08/17 03:46 RD [id number]) Injection Site MAR Injection Site Left Arm Charges for Administration # of Subcutaneous Administrations 1 - PA / RECEPTION INTERVIEWER / Resident Statement ARTURO has reviewed & agrees with the documentation as recorded. ARTURO has examined the patient and agrees with the treatment plan. <Belen Downs - Last Filed: 08/09/17 23:19> Disposition/Present on Arrival <Leoncio Mata - Last Filed: 08/07/17 23:28> - Present on Arrival Any Indicators Present on Arrival: Yes History of DVT/PE: No History of Uncontrolled Diabetes: No Urinary Catheter: No History of Decub. Ulcer: No History Surgical Site Infection Following: None - Disposition Have Diagnosis and Disposition been Completed?: Yes Disposition Time: 23:00 (08/07/2017) Patient Plan: Admission <Belen Downs - Last Filed: 08/09/17 23:19> - Disposition Diagnosis: CHF exacerbation Disposition: HOSPITALIZED Condition: GUARDED
[2017-08-07 20:13] LABS: BASO # 0.01 K/mm3 (0.0-2.0); BASO % 0.2 % (0.0-3.0); EOS # 0.2 (0.0-0.7); EOS % 4.1 % (1.5-5.0); GRAN # 3.42 (1.4-6.5); GRAN % 66.5 % (50.0-68.0); LYMPH # 0.8 (1.2-3.4); LYMPH % 15.6 % (22.0-35.0); MEAN CELL VOLUME 79.1 fl (80.0-105.0); MEAN CORPUSCULAR HEMOGLOBIN 24.7 pg (25.0-35.0); MEAN CORPUSCULAR HGB CONC 31.2 g/dl (31.0-37.0); MEAN PLATELET VOLUME 9.9 fl (7.0-11.0); MONO # 0.7 (0.1-0.6); MONO % 13.6 % (1.0-6.0); RBC 3.2 10^6/uL (3.5-6.1); RED CELL DISTRIBUTION WIDTH 18.4 % (11.5-14.5); WHITE BLOOD COUNT 5.1 10^3/ul (4.5-11.0)
[2017-08-07 20:17] LABS: HEMOGLOBIN 7.9 g/dL (14.0-18.0); VENOUS BLOOD GAS BASE EXCESS 3.5 mmol/L (0.0-2.0); VENOUS BLOOD GAS PO2 258 mm/Hg (30-55); VENOUS BLOOD PH 7.49 (7.32-7.43)
[2017-08-07 20:37] LABS: ALB/GLOB RATIO 0.9 (1.1-1.8); ALBUMIN 3.1 g/dL (3.0-4.8); CALCIUM 9.2 mg/dL (8.4-10.5)
[2017-08-07 20:50] LABS: TROPONIN I 0.16 ng/mL
[2017-08-07 22:26] LABS: URINE BILIRUBIN NEGATIVE (NEGATIVE); URINE BLOOD TRACE-INTACT (NEGATIVE); URINE GLUCOSE (UA) 100 mg/dL (NEGATIVE); URINE LEUKOCYTE ESTERASE NEGATIVE Leu/uL (NEGATIVE); URINE NITRATE NEGATIVE (NEGATIVE); URINE PROTEIN 100 mg/dL (<30 mg/dL); URINE UROBILINOGEN 0.2 E.U./dL (<1 E.U./dL)
[2017-08-07 22:35] LABS: URINE APPEARANCE SL CLOUDY (CLEAR); URINE COLOR YELLOW (YELLOW)
[2017-08-07] MEDS ORDERED: Vancomycin 1gm in NS 250ml 1 GM/250 ML BAG IVPB STA (22:50)
[2017-08-07 22:56] LABS: URINE BACTERIA FEW (NEG)
[2017-08-08] MEDS ORDERED: Milrinone 20mg/100ml D5W 100 ML IV PRN (00:41)
[2017-08-08 01:26] LABS: INR 3.47 (0.93-1.08); PARTIAL THROMBOPLASTIN TIME 40.6 Seconds (25.1-36.5); PROTHROMBIN TIME 40.6 SECONDS (9.4-12.5)
[2017-08-08] MEDS: Milrinone 20mg/100ml D5W 100 ML IV PRN ×3 (02:44→22:54)
[2017-08-08] MEDS ORDERED: Phytonadione 10 mg/ml Inj (Adult) SC STA (02:57)
[2017-08-08] MEDS: Levalbuterol 0.63 MG/3 ML Inhal Soln UD IH SCH ×5 (04:19→20:30)
[2017-08-08] MEDS ORDERED: Phytonadione 10 MG in Sodium Chloride 0.9% 50 ML IV ONE (04:45)
[2017-08-08] MEDS ORDERED: Meropenem 1 GM in Sodium Chloride 0.9% 100 ML IVPB ONE (08:00)
--- NOTE | 2017-08-08 08:57 | RAD ---
HISTORY: Chest pain COMPARISON: 07/21/2017 FINDINGS: The right PICC line terminates in the SVC. LUNGS: There is no significant interval change in consolidation in the right lower lobe and left mid lung as well as left lower lobe. PLEURA: No significant pleural effusion identified, no pneumothorax apparent. CARDIOVASCULAR: The cardiomediastinal silhouette is stable. There is a left-sided AICD. OSSEOUS STRUCTURES: No significant abnormalities. VISUALIZED UPPER ABDOMEN: Normal. OTHER FINDINGS: None. IMPRESSION: No change in multifocal pneumonia. Follow-up to resolution is advised.
--- NOTE | 2017-08-08 09:50 | CARD ---
APPROVED REPORT EKG Measurement Heart [id number] CO [id number] <Conclusion> Normal sinus rhythm Rightward axis ST & T wave abnormality c/w ischemia No change
--- NOTE | 2017-08-08 10:26 | CT ---
PROCEDURE: CT Chest, Abdomen and Pelvis without intravenous contrast HISTORY: rule out pneumonia COMPARISON: 07/11/2017 ct TECHNIQUE: Radiation dose: Total exam DLP = mGy-cm. This CT exam was performed using one or more of the following dose reduction techniques: Automated exposure control, adjustment of the mA and/or kV according to patient size, and/or use of iterative reconstruction technique. FINDINGS: CT CHEST WITHOUT CONTRAST: LUNGS: There is dense consolidation in a segment of the left upper lobe with air bronchograms. Findings are consistent with pneumonia. There is a 6 mm nodule in the right upper lobe seen on image 56 series 4. MEDIASTINUM: Unremarkable. Normal caliber aorta and pulmonary arterial trunk. Normal size heart. LYMPH NODES: Unremarkable. PLEURA: Small bilateral pleural effusions are seen. BONES: Unremarkable. OTHER FINDINGS: None. CT ABDOMEN AND PELVIS: LIVER: Unremarkable. No gross lesion or ductal dilatation. GALLBLADDER AND BILE DUCTS: Unremarkable. PANCREAS: Unremarkable. No gross lesion or ductal dilatation. SPLEEN: Unremarkable. ADRENALS: Unremarkable. No mass. KIDNEYS AND URETERS: Unremarkable. No hydronephrosis. No solid mass. VASCULATURE: There is a large infrarenal abdominal aortic aneurysm measuring 7.4 cm wide by 7 cm AP. There is an aortic stent graft in place. The aneurysm is stable in size BOWEL: There is a right lower quadrant ostomy. APPENDIX: Normal appendix. PERITONEUM: Unremarkable. No free fluid. No free air. LYMPH NODES: Unremarkable. No enlarged lymph nodes. BLADDER: Unremarkable. REPRODUCTIVE: Unremarkable. BONES: No acute fracture. OTHER FINDINGS: None. IMPRESSION: Dense consolidation and air bronchograms in a segment of the left upper lobe suspicious for pneumonia. Small bilateral pleural effusions. Stable infrarenal abdominal aortic aneurysm. No acute intra-abdominal findings
[2017-08-08 11:01] LABS: HEMOGLOBIN 8.9 g/dL (14.0-18.0); MEAN CELL VOLUME 80.3 fl (80.0-105.0); MEAN CORPUSCULAR HEMOGLOBIN 25.4 pg (25.0-35.0); MEAN CORPUSCULAR HGB CONC 31.6 g/dl (31.0-37.0); MEAN PLATELET VOLUME 9.8 fl (7.0-11.0); RBC 3.51 10^6/uL (3.5-6.1); RED CELL DISTRIBUTION WIDTH 18.3 % (11.5-14.5); WHITE BLOOD COUNT 6.7 10^3/ul (4.5-11.0)
[2017-08-08 11:12] LABS: CALCIUM 8.9 mg/dL (8.4-10.5)
[2017-08-08 11:28] LABS: INR 3.33 (0.93-1.08); PROTHROMBIN TIME 39.3 SECONDS (9.4-12.5)
--- NOTE | 2017-08-08 12:51 | CP.PCM.CON ---
History of Present Illness - History of Present Illness History of Present Illness: 72 y/o M with PMH of ischemic cardiomyopathy on IV Milrinone, DM, iron deficiency anemia, COPD, CHF, A-fib, and Lung cancer s/p radiation presents to the hospital for generalized weakness over the past several days. Patient is accompanied by his at bedside, who translates for him. states patient has been lethargic and fatigued over the last several days. In addition, last night patient complained of trouble breathing so they came to the ED in the morning. Patient is compliant with all medications, including his Lasix at home. Patient currently states he feels much better since coming to the hospital. His breathing has improved and he also feels more energetic. Denies chest pain, shortness of breath, nausea, vomiting, diarrhea, fever, chills. PMH: ischemic cardiomyopathy on IV Milrinone, DM, iron deficiency anemia, COPD, CHF, A-fib, and Lung cancer s/p radiation FMH: Noncontributory Social Hx: Former smoker, denies alcohol or illicit drug use. Lives at home with . Allergies: NKDA Medications: NKDA Review of Systems - Review of Systems Review of Systems: 12 point ROS as per HPI, otherwise negative. Past Patient History - Infectious Disease Hx of Infectious Diseases: None - Tetanus Immunizations Tetanus Immunization: Unknown - Past Medical History & Family History Past Medical History?: Yes - Past Social History Smoking Status: Former Smoker - CARDIAC Hx Cardiac Disorders: Yes Hx Heart Attack: Yes Hx Hypertension: Yes - PULMONARY Hx Asthma: Yes Hx Emphysema: Yes - NEUROLOGICAL HX Cerebrovascular Accident: Yes - HEENT Hx HEENT Problems: Yes Hx Cataracts: Yes - RENAL Hx Chronic Kidney Disease: Yes - ENDOCRINE/METABOLIC Hx Diabetes Mellitus Type 2: Yes - HEMATOLOGICAL/ONCOLOGICAL Hx Blood Disorders: Yes Hx Anemia: Yes - INTEGUMENTARY Hx Dermatological Problems: No - MUSCULOSKELETAL/RHEUMATOLOGICAL Hx Falls: No - GASTROINTESTINAL Hx Gastrointestinal Disorders: Yes (colostomy draining liquid brown) - GENITOURINARY/GYNECOLOGICAL Hx Reproductive Disorders: Yes - PSYCHIATRIC Hx Depression: Yes Hx Substance Use: No - SURGICAL HISTORY Hx Abdominal Aortic Aneurysm Repair: Yes (complicated by endoleak) Other/Comment: Colostomy, R side - ANESTHESIA Hx Anesthesia: Yes Meds Allergies/Adverse Reactions: Allergies Allergy/AdvReac Type Severity Reaction Status Date / Time No Known Allergies Allergy Verified 08/08/17 02:04 - Medications Medications: Current Medications Carvedilol (Coreg) 12.5 mg PO BID [facility] Last Admin: 08/08/17 11:57 Dose: 12.5 mg Milrinone Lactate/Dextrose (Primacor 20mg/100ml D5w) 100 mls @ 8.981 mls/hr IV .Q11H9M PRN; Protocol; 0.3 MCG/KG/MIN PRN Reason: TITRATE PER MD ORDER Last Admin: 08/08/17 02:44 Dose: 0.3 mcg/kg/min, 8.981 mls/hr Meropenem 500 mg/ Sodium (Chloride) 100 mls @ 100 mls/hr IVPB Q12 ANTHONY PRN Reason: Protocol Stop: 08/15/17 20:01 Levalbuterol HCl (Xopenex) 0.63 mg IH Q4 [facility] Last Admin: 08/08/17 07:34 Dose: 0.63 mg Pantoprazole Sodium (Protonix Inj) 40 mg IVP DAILY [facility] Last Admin: 08/08/17 11:57 Dose: 40 mg Physical Exam - Constitutional Appears: Non-toxic, No Acute Distress - Head Exam Head Exam: ATRAUMATIC, NORMAL INSPECTION, NORMOCEPHALIC - ENT Exam ENT Exam: Mucous Membranes Moist - Respiratory Exam Respiratory Exam: Decreased Breath Sounds, Clear to Auscultation Bilateral, Rales (Mild lower bases), NORMAL BREATHING PATTERN - Cardiovascular Exam Cardiovascular Exam: RRR, +S1, +S2 - GI/Abdominal Exam GI & Abdominal Exam: Normal Bowel Sounds, Soft. absent: Tenderness Additional comments: Colostomy - Extremities Exam Extremities exam: Positive for: normal inspection. Negative for: calf tenderness, pedal edema - Neurological Exam Neurological exam: Alert, CN II-XII Intact, Oriented x3 - Psychiatric Exam Psychiatric exam: Normal Affect, Normal Mood - Skin Skin Exam: Intact, Normal Color, Warm Results - Vital Signs Recent Vital Signs: Last Vital Signs Temp 98.6 F 08/08/17 06:15 Pulse 105 H 08/08/17 11:57 Resp 18 08/08/17 06:15 BP 150/61 08/08/17 11:57 Pulse Ox 97 08/08/17 06:15 - Labs Result Diagrams: 08/08/17 10:50 08/08/17 10:50 Labs: Laboratory Results - last 24 hr 08/08/17 08/08/17 08/08/17 10:50 10:50 10:50 WBC 6.7 D RBC 3.51 Hgb 8.9 L Hct 28.2 L MCV 80.3 MCH 25.4 MCHC 31.6 RDW 18.3 H Plt Count 216 MPV 9.8 PT 39.3 H INR 3.33 H Sodium 136 Potassium 4.1 Chloride 102 Carbon Dioxide 25 Anion Gap 13 BUN 39 H Creatinine 2.7 H Est GFR ( Amer) 28 Est GFR (Non-Af Amer) 23 Random Glucose 246 H Calcium 8.9 Assessment & Plan - Assessment and Plan (Free Text) Plan: 72 y/o M with PMH of ischemic cardiomyopathy on IV Milrinone, DM, iron deficiency anemia, COPD, CHF, A-fib, and Lung cancer s/p radiation presents with CHF exacerbation in the setting of elevated troponin. Patient will receive blood products to aid in anemia in the setting of elevated troponin. Of note, patient does have history of CKD with currently stable creatinine. Patient also received chest, abdomen, and pelvis CT scan which showed a pneumonia, patient has been started on Merrem. Patient will also continue milrinone drip. Patient will also be seen by GI, Cardiology, Pulmonology, and ID. Plan discussed with Dr. Iyengar. Krueger, PGY-2
--- NOTE | 2017-08-08 16:02 | CP.PCM.CON ---
History of Present Illness - History of Present Illness History of Present Illness: 72 year old male with PMH of healthcare-associated pneumonia, Severe cardiomyopathy with EF 10-15 %, paroxysmal atrial fibrillation, Coronary artery disease S/P stenting, history of aortic aneurysm, history of SVT, S/P AICD placement, S/P procedure on his prostate in 2012, S/P partial colectomy and colostomy was recently in [facility] [place]) for ESBL E. coli bacteremia. He completed his course of antibiotics and did well. He is now back in [facility] because his noted that he has been having poor appetite for the past 2-3 days and has been having shortness of breath as well. He has some cough which is dry. There is no note of fever but patient has chills, no nausea or vomiting, patient feels weak and tired, no abdominal pain, no dysuria, no headache or dizziness. CT C/A/P has been done which shows left upper lobe infiltrate with air bronchograms. Infectious Diseases consult is requested to further evaluate and manage. Review of Systems - Review of Systems All systems: reviewed and no additional remarkable complaints except (as per HPI ) Past Patient History - Infectious Disease Hx of Infectious Diseases: None - Tetanus Immunizations Tetanus Immunization: Unknown - Past Medical History & Family History Past Medical History?: Yes - Past Social History Smoking Status: Former Smoker - CARDIAC Hx Cardiac Disorders: Yes Hx Heart Attack: Yes Hx Hypertension: Yes - PULMONARY Hx Asthma: Yes Hx Emphysema: Yes - NEUROLOGICAL HX Cerebrovascular Accident: Yes - HEENT Hx HEENT Problems: Yes Hx Cataracts: Yes - RENAL Hx Chronic Kidney Disease: Yes - ENDOCRINE/METABOLIC Hx Diabetes Mellitus Type 2: Yes - HEMATOLOGICAL/ONCOLOGICAL Hx Blood Disorders: Yes Hx Anemia: Yes - INTEGUMENTARY Hx Dermatological Problems: No - MUSCULOSKELETAL/RHEUMATOLOGICAL Hx Falls: No - GASTROINTESTINAL Hx Gastrointestinal Disorders: Yes (colostomy draining liquid brown) - GENITOURINARY/GYNECOLOGICAL Hx Reproductive Disorders: Yes - PSYCHIATRIC Hx Depression: Yes Hx Substance Use: No - SURGICAL HISTORY Hx Abdominal Aortic Aneurysm Repair: Yes (complicated by endoleak) Other/Comment: Colostomy, R side - ANESTHESIA Hx Anesthesia: Yes Meds Allergies/Adverse Reactions: Allergies Allergy/AdvReac Type Severity Reaction Status Date / Time No Known Allergies Allergy Verified 08/08/17 02:04 - Medications Medications: Current Medications Carvedilol (Coreg) 12.5 mg PO BID [facility] Milrinone Lactate/Dextrose (Primacor 20mg/100ml D5w) 100 mls @ 8.981 mls/hr IV .Q11H9M PRN; Protocol; 0.3 MCG/KG/MIN PRN Reason: TITRATE PER MD ORDER Last Admin: 08/08/17 02:44 Dose: 0.3 mcg/kg/min, 8.981 mls/hr Meropenem 1 gm/ Sodium (Chloride) 100 mls @ 100 mls/hr IVPB ONCE ONE PRN Reason: Protocol Stop: 08/08/17 08:59 Levalbuterol HCl (Xopenex) 0.63 mg IH Q4 [facility] Last Admin: 08/08/17 04:19 Dose: Not Given Pantoprazole Sodium (Protonix Inj) 40 mg IVP DAILY [facility] Physical Exam - Constitutional Appears: Chronically Ill - Head Exam Head Exam: NORMAL INSPECTION - ENT Exam ENT Exam: Mucous Membranes Moist - Neck Exam Neck exam: Negative for: Lymphadenopathy, Meningismus - Respiratory Exam Respiratory Exam: Decreased Breath Sounds Additional comments: right anterior chest wall pacemaker / ICD in place - Cardiovascular Exam Cardiovascular Exam: +S1, +S2 - GI/Abdominal Exam GI & Abdominal Exam: Soft. absent: Tenderness Additional comments: colostomy in place Results - Vital Signs Recent Vital Signs: Last Vital Signs Temp 98.6 F 08/08/17 06:15 Pulse 92 H 08/08/17 06:15 Resp 18 08/08/17 06:15 BP 142/92 H 08/08/17 06:15 Pulse Ox 97 08/08/17 06:15 - Labs Result Diagrams: 08/08/17 10:50 08/08/17 10:50 Assessment & Plan - Assessment and Plan (Free Text) Plan: Assessment Sepsis due to left upper lobe healthcare-associated with possible gram positive cocci and/or gram negative bacilli history of severe sepsis due to ESBL E. coli bacteremia, unclear source history of sepsis due to right sided healthcare-associated pneumonia history of UTI with carbapenem-resistant Klebsiella history of ESBL-producing Klebsiella bacteremia, secondary to the port S/P removal S/P treatment for healthcare-associated pneumonia history of C diff associated diarrhea history of UTI with yeast history healthcare-associated pneumonia Severe cardiomyopathy with EF 10-15 % paroxysmal atrial fibrillation Coronary artery disease S/P stenting history of aortic aneurysm history of SVT S/P AICD placement S/P procedure on his prostate in 2012 S/P partial colectomy and colostomy Plan started patient on Merrem , Doxycycline and a dose of IV Vancomycin pending blood, sputum cx, PCT, urine Legionella Ag, rapid flu test reviewed CT C/A/P will monitor clinically
[2017-08-08] MEDS: Meropenem 500 MG in Sodium Chloride 0.9% 100 ML IVPB SCH (21:35)
--- NOTE | 2017-08-09 00:27 | CP.PCM.PN ---
Subjective - Date & Time of Evaluation Date of Evaluation: 08/09/17 Time of Evaluation: 00:27 - Subjective Subjective: Patient was seen at bedside. Because he was having runs of vtach. Had 5 beats of run of VTACH at about 9:30 PM and 18 beats of runs of VTACH now. Had no other complaints. Denies chest pain , sob. Medical record was reviewed. This 72 year old male was admitted with dyspnea, weakness, low blood pressure. Has PMH of atrial fibrillation, AAA repair, colostomy, ileostomy, ICD pacemaker , ischemic cardiomyopathy, COPD, IDDM, anemia, lung cancer , PNA, UTI, bedridden. Objective - Vital Signs/Intake and Output Vital Signs (last 24 hours): Temp Pulse Resp BP Pulse Ox 98.6 F 109 H 20 161/99 H 97 08/08/17 06:15 08/08/17 23:52 08/08/17 23:52 08/08/17 22:54 08/08/17 06:15 Intake and Output: 08/08/17 08/09/17 18:59 06:59 Intake Total 100 100 Output Total 300 Balance 100 -200 - Medications Medications: Current Medications Carvedilol (Coreg) 12.5 mg PO BID [facility] Last Admin: 08/08/17 11:57 Dose: 12.5 mg Milrinone Lactate/Dextrose (Primacor 20mg/100ml D5w) 100 mls @ 8.981 mls/hr IV .Q11H9M PRN; Protocol; 0.3 MCG/KG/MIN PRN Reason: TITRATE PER MD ORDER Last Admin: 08/08/17 22:54 Dose: 0.3 mcg/kg/min, 8.981 mls/hr Meropenem 500 mg/ Sodium (Chloride) 100 mls @ 100 mls/hr IVPB Q12 ANTHONY PRN Reason: Protocol Stop: 08/15/17 20:01 Last Admin: 08/08/17 21:35 Dose: 100 mls/hr Doxycycline Hyclate 100 mg/ (Sodium Chloride) 100 mls @ 100 mls/hr IVPB Q12 ANTHONY PRN Reason: Protocol Last Admin: 08/08/17 22:22 Dose: 100 mls/hr Levalbuterol HCl (Xopenex) 0.63 mg IH Q4 [facility] Last Admin: 08/08/17 18:17 Dose: 0.63 mg Pantoprazole Sodium (Protonix Inj) 40 mg IVP DAILY [facility] Last Admin: 08/08/17 11:57 Dose: 40 mg - Labs Labs: 08/08/17 10:50 08/08/17 10:50 PT 39.3 SECONDS (9.4-12.5) H 08/08/17 10:50 INR 3.33 (0.93-1.08) H 08/08/17 10:50 APTT 40.6 Seconds (25.1-36.5) H 08/07/17 20:00 Last Vital Signs Temp 97.8 F 08/12/17 16:00 Pulse 88 08/12/17 18:14 Resp 20 08/12/17 16:00 BP 124/77 08/12/17 18:14 Pulse Ox 99 08/12/17 12:00 Micro Results 08/08/17 21:06 Blood-Venous Blood Culture - Preliminary NO GROWTH AFTER 4 DAYS 08/08/17 21:06 Blood-Venous Blood Culture - Preliminary NO GROWTH AFTER 4 DAYS Most Recent Lab Values WBC 9.7 10^3/ul (4.5-11.0) D 08/12/17 07:00 RBC 4.19 10^6/uL (3.5-6.1) 08/12/17 07:00 Hgb 10.9 g/dL (14.0-18.0) L D 08/12/17 07:00 Hct 34.5 % (42.0-52.0) L 08/12/17 07:00 MCV 82.3 fl (80.0-105.0) 08/12/17 07:00 MCH 26.0 pg (25.0-35.0) 08/12/17 07:00 MCHC 31.6 g/dl (31.0-37.0) 08/12/17 07:00 RDW 18.1 % (11.5-14.5) H 08/12/17 07:00 Plt Count 245 10^3/uL (120.0-450.0) 08/12/17 07:00 MPV 10.5 fl (7.0-11.0) 08/12/17 07:00 Gran % 91.0 % (50.0-68.0) H 08/11/17 06:00 Lymph % (Auto) 5.2 % (22.0-35.0) L 08/11/17 06:00 [place] % (Auto) 3.8 % (1.0-6.0) 08/11/17 06:00 Eos % (Auto) 0.0 % (1.5-5.0) L 08/11/17 06:00 Baso % (Auto) 0.0 % (0.0-3.0) 08/11/17 06:00 Gran # 6.25 (1.4-6.5) 08/11/17 06:00 Lymph # 0.4 (1.2-3.4) L 08/11/17 06:00 [place] # 0.3 (0.1-0.6) 08/11/17 06:00 Eos # 0.0 (0.0-0.7) 08/11/17 06:00 Baso # 0.00 K/mm3 (0.0-2.0) 08/11/17 06:00 Neutrophils % (Manual) 90 % (50.0-70.0) H 08/10/17 06:40 Lymphocytes % (Manual) 10 % (22.0-35.0) L 08/10/17 06:40 Monocytes % (Manual) TEST NOT PERFORMED 08/10/17 06:40 Toxic Granulation 1+ 08/10/17 06:40 Platelet Evaluation Normal (NORMAL) 08/10/17 06:40 Polychromasia Slight 08/10/17 06:40 Hypochromasia 2+ 08/10/17 06:40 Anisocytosis (manual) 1+ 08/10/17 06:40 Microcytosis (manual) 1+ 08/10/17 06:40 PT 24.7 SECONDS (9.4-12.5) H 08/11/17 06:00 INR 2.12 (0.93-1.08) H 08/11/17 06:00 APTT 40.6 Seconds (25.1-36.5) H 08/07/17 20:00 pO2 258 mm/Hg (30-55) H 08/07/17 20:10 VBG pH 7.49 (7.32-7.43) H 08/07/17 20:10 VBG pCO2 35.0 (40-60) L 08/07/17 20:10 VBG HCO3 26.7 mmol/l (21-28) 08/07/17 20:10 VBG Total CO2 27.8 mmol.L (22-28) 08/07/17 20:10 VBG O2 Sat (Calc) 100.3 % (40-65) H 08/07/17 20:10 VBG Base Excess 3.5 mmol/L (0.0-2.0) H 08/07/17 20:10 VBG Potassium 4.3 mmol/L (3.6-5.2) 08/07/17 20:10 Sodium 133.0 mmol/L (132-148) 08/07/17 20:10 Chloride 104.0 mmol/L (98-107) 08/07/17 20:10 Glucose 230 mg/dl (75-110) H 08/07/17 20:10 Lactate 0.7 mmol/L (0.7-2.1) 08/07/17 20:10 FiO2 21.0 % 08/07/17 20:10 Sodium 131 mmol/L (132-148) L 08/12/17 07:00 Potassium 5.0 mmol/L (3.6-5.0) 08/12/17 07:00 Chloride 100 mmol/L (98-107) 08/12/17 07:00 Carbon Dioxide 20 mmol/L (21-33) L 08/12/17 07:00 Anion Gap 16 (10-20) 08/12/17 07:00 BUN 46 mg/dL (7-21) H 08/12/17 07:00 Creatinine 3.2 mg/dl (0.8-1.5) H 08/12/17 07:00 Est GFR ( Amer) 23 08/12/17 07:00 Est GFR (Non-Af Amer) 19 08/12/17 07:00 POC Glucose (mg/dL) 235 mg/dL (65-110) H 08/12/17 16:31 Random Glucose 287 mg/dL (70-110) H 08/12/17 07:00 Hemoglobin A1c 7.4 % (4.2-6.5) H 08/09/17 10:00 Calcium 8.5 mg/dL (8.4-10.5) 08/12/17 07:00 Phosphorus 4.1 mg/dL (2.5-4.5) 08/10/17 06:40 Magnesium 1.9 mg/dL (1.7-2.2) 08/10/17 06:40 Total Bilirubin 0.8 mg/dL (0.2-1.3) 08/12/17 07:00 AST 27 U/L (17-59) 08/12/17 07:00 ALT 19 U/L (7-56) 08/12/17 07:00 Alkaline Phosphatase 109 U/L (38-126) 08/12/17 07:00 Lactate Dehydrogenase 505 U/L (333-699) 08/07/17 20:10 Total Creatine Kinase 43 U/L (35-230) 08/07/17 20:10 Troponin I 0.08 ng/mL D 08/09/17 01:15 NT-Pro-B Natriuret Pep 76617 pg/mL (0-450) H 08/07/17 20:10 Total Protein 7.7 g/dL (5.8-8.3) 08/12/17 07:00 Albumin 3.8 g/dL (3.0-4.8) 08/12/17 07:00 Globulin 3.9 gm/dL 08/12/17 07:00 Albumin/Globulin Ratio 1.0 (1.1-1.8) L 08/12/17 07:00 Triglycerides 107 mg/dL (35-160) 08/09/17 10:00 Cholesterol 132 mg/dL (130-200) 08/09/17 10:00 LDL Cholesterol Direct 73 mg/dL (0-129) 08/09/17 10:00 HDL Cholesterol 33 mg/dL (29-60) 08/09/17 10:00 Procalcitonin 0.08 NG/ML (0.19-0.49) L 08/08/17 21:06 TSH 3rd Generation 0.93 mIU/mL (0.46-4.68) 08/09/17 10:00 Cortisol AM Sample 17.3 ug/dL (4.46-22.7) 08/09/17 10:00 Venous Blood Potassium 4.3 mmol/L (3.6-5.2) 08/07/17 20:10 Urine Color Yellow (YELLOW) 08/07/17 21:35 Urine Appearance Sl cloudy (CLEAR) 08/07/17 21:35 Urine pH 7.0 (4.7-8.0) 08/07/17 21:35 Ur Specific [place] 1.015 (1.005-1.035) 08/07/17 21:35 Urine Protein 100 mg/dL (<30 mg/dL) H 08/07/17 21:35 Urine Glucose (UA) 100 mg/dL (NEGATIVE) H 08/07/17 21:35 Urine Ketones Negative mg/dL (NEGATIVE) 08/07/17 21:35 Urine Blood Trace-intact (NEGATIVE) H 08/07/17 21:35 Urine Nitrate Negative (NEGATIVE) 08/07/17 21:35 Urine Bilirubin Negative (NEGATIVE) 08/07/17 21:35 Urine Urobilinogen 0.2 E.U./dL (<1 E.U./dL) 08/07/17 21:35 Ur Leukocyte Esterase Negative Raj/uL (NEGATIVE) 08/07/17 21:35 Urine RBC 1 - 3 /hpf (0-2) 08/07/17 21:35 Urine WBC 1 - 3 /hpf (0-6) 08/07/17 21:35 Ur Epithelial Cells 1 - 3 /hpf (0-5) 08/07/17 21:35 Urine Bacteria Few (NEG) 08/07/17 21:35 Stool Occult Blood Positive (NEGATIVE) H 08/09/17 18:08 Influenza Typ A,B (EIA) Negative for flu a/b (NEGATIVE) 08/07/17 21:35 Ur L.pneumophila Ag Negative (NEGATIVE) 08/12/17 06:22 Blood Type O NEGATIVE 08/10/17 10:00 Antibody Screen Negative 08/10/17 10:00 Crossmatch See Detail 08/10/17 10:00 BBK History Checked Patient has bt 08/10/17 10:00 - Constitutional Appears: Well, No Acute Distress - Head Exam Head Exam: ATRAUMATIC, NORMAL INSPECTION, NORMOCEPHALIC - Eye Exam Eye Exam: Normal appearance - ENT Exam ENT Exam: Normal External Ear Exam - Neck Exam Neck Exam: Normal Inspection - Respiratory Exam Respiratory Exam: NORMAL BREATHING PATTERN - Cardiovascular Exam Cardiovascular Exam: absent: JVD - GI/Abdominal Exam GI & Abdominal Exam: absent: Distended - Rectal Exam Rectal Exam: Deferred - Back Exam Additional comments: Deferred. - Neurological Exam Neurological Exam: Alert, Awake - Psychiatric Exam Psychiatric exam: Normal Affect, Normal Mood - Skin Skin Exam: Normal Color Assessment and Plan - Assessment and Plan (Free Text) Assessment: Non sustained runs of VTACH. Atrial fibrillation. History colostomy. History ileostomy. History ICD pacemaker. Ischemic cardiomyopathy. COPD. IDDM. Anemia. History lung cancer. History UTI. Bedridden. Plan: Magnesium , troponin level added in AM labs. EKG.----> No acute changes noted. Continue present management.
[2017-08-09 01:46] LABS: MAGNESIUM 1.7 mg/dL (1.7-2.2)
[2017-08-09] MEDS: Levalbuterol 0.63 MG/3 ML Inhal Soln UD IH SCH ×6 (01:55→20:37)
[2017-08-09 01:56] LABS: TROPONIN I 0.08 ng/mL
--- NOTE | 2017-08-09 02:47 | CON ---
DATE: 08/08/2017 REASON FOR CONSULTATION: Cardiac evaluation, history of coronary artery disease, history of cardiomyopathy, ischemic, on home milrinone, admitted with generalized weakness and fatigue. BRIEF CLINICAL HISTORY: This is a 72-year-old male with a past medical history significant for ischemic cardiomyopathy, status post PTCA; history of milrinone at home, was interrupted because insurance did not pay last time, the patient was restarted again; history of iron deficiency anemia; history of COPD; atrial fibrillation; lung cancer, status post radiation with the patient is unaware of history of colostomy brought by the family because of generalized weakness. Denies any chest pain, shortness of breath, or any palpitation. Past history significant for cardiomyopathy, on home milrinone; diabetes; hypertension; hyperlipidemia; anemia; COPD; CHF; atrial fibrillation; paroxysmal lung cancer, status post radiation. PAST MEDICAL HISTORY: Significant for PTCA, done by Dr. Bateman, status post AICD; paroxysmal atrial fibrillation; chronic kidney disease, status post colostomy; history of CVA; history of BPH; history of urinary tract recurrent infection; history of abdominal aortic aneurysm, status post endovascular stent, ejection fraction 25%. SOCIAL HISTORY: Denies any history of alcohol abuse. CURRENT MEDICATIONS: The patient is taking Coumadin, vancomycin, Flomax, Entresto, multivitamin, insulin, Lasix, and milrinone. REVIEW OF SYSTEMS: As per HPI. PHYSICAL EXAMINATION VITAL SIGNS: Temperature afebrile, heart rate 92, blood pressure 142/92. HEENT: PERRLA intact. NECK: Supple. No carotid bruits. No thyromegaly. CHEST: Clear to auscultation. HEART: S1, S2. Regular. ABDOMEN: Soft. EXTREMITIES: Clubbing and cyanosis negative. LABORATORY DATA: Blood workup as follows; WBC 6.7, hemoglobin 8.9, hematocrit 28.2, platelet count 216. Chemistry shows sodium 130, potassium 4.0, chloride 102, carbon dioxide 25, anion gap of 13, BUN 33, creatinine 2.7. Troponin is 0.16. Creatinine clearance 22 mL. IMPRESSION: Coronary artery disease, status post percutaneous transluminal coronary angioplasty of left anterior descending; end-stage cardiomyopathy; endovascular stent, abdominal aortic aneurysm; chronic kidney disease; stage IV chronic kidney disease, on home milrinone; diabetes; hypertension; hyperlipidemia; cardiomyopathy; history of colostomy; history of lung cancer, status post radiation; history of paroxysmal atrial fibrillation, history of home Primacor; history of cerebrovascular accident; history of chronic kidney disease, stage IV to V; history of percutaneous transluminal coronary angioplasty of left anterior descending, status post automatic implantable cardioverter-defibrillator. RECOMMENDATION: Continue Coumadin, goal is to keep INR 2. Continue milrinone. Continue aspirin. Continue digoxin. Blood culture Tuesday, Tuesday, and Tuesday. Overall, the patient's condition is critical. Long-term prognosis is guarded. Borderline troponin is most likely secondary to CHF. We will follow with you. No further cardiac intervention is planned at this time. Aggressive medical treatment. Rule out sepsis. Arabella Mathews MD
--- NOTE | 2017-08-09 05:05 | CON ---
DATE: 08/08/2017 REASON FOR CONSULTATION: Anemia, drop in blood count. HISTORY OF PRESENT ILLNESS: This is a 72-year-old patient with past medical history of severe cardiomyopathy, ejection fraction of 10-15%, paroxysmal atrial fibrillation, coronary artery disease, status post PCI, abdominal aortic aneurysm, status post repair endoleak, complicated by chronic ischemia, had a subtotal colectomy and ileostomy. The patient did have GI bleeding, had an ileoscopy done, which shows ulcerations in the distal ileal area proximal to the ileostomy. History of paroxysmal atrial fibrillation on anticoagulation. The patient was admitted this time with weakness and was found to be anemic with hemoglobin of 7.9. GI consult was evaluated for gastrointestinal bleeding. No vomiting. No bright red blood per rectum through the ileostomy. PAST MEDICAL HISTORY: Other past medical history significant as above, history of ischemic cardiomyopathy on IV milrinone, diabetes mellitus, COPD, CHF, history of lung cancer, status post RT. FAMILY HISTORY: Noncontributory. SOCIAL HISTORY: Ex-smoker, denies alcohol. ALLERGIES: NO KNOWN DRUG ALLERGIES. REVIEW OF SYSTEMS: Positive as above. Other systems reviewed. PHYSICAL EXAMINATION: GENERAL: The patient is lying on the bed, not in acute distress. VITAL SIGNS: Temperature is afebrile. Blood pressure is 150/61, respirations 18, O2 saturation 97%. HEENT: Atraumatic, anicteric. NECK: Supple. HEART: S1 and S2 heard. Irregular. LUNGS: Bilateral air entry present. ABDOMEN: Soft. Ileostomy present, has a greenish stool present in the bag. No melena. EXTREMITIES: No cyanosis. No clubbing. NEUROLOGIC: Alert. Moves all the extremities. LABORATORY DATA: Hemoglobin 7.9, transfused one unit and repeat hemoglobin was 8.9. The patient had mildly elevated troponin of 0.16. Creatinine 2.7, BNP 10,800. IMPRESSION: This is a 72-year-old patient with: 1. Past medical history of subtotal colectomy with ileostomy, history of terminal ileal ulcerations in the past, admitted with severe anemia, at 7.4, weakness, transferred, status post 1 unit of transfusion. 2. Pneumonia. CT also showed air bronchogram in the left upper lobe suspicious for pneumonia. 3. Abdominal aortic aneurysm, status post endovascular repair and complicated hospital course, endoleak and had a subtotal colectomy done in the past for ischemia. 4. History of coronary artery disease, paroxysmal atrial fibrillation. 5. Congestive heart failure with poor ejection fraction around 10-15% on intravenous milrinone. Also comorbidities include diabetes mellitus, chronic kidney disease. PLAN: I would recommend; 1. Continue the antibiotics as per Infectious Disease. 2. Close followup of the hemoglobin and hematocrit. The patient did have history of ileal ulceration before there is no active bleeding noticed this time. The patient did have an upper gastrointestinal endoscopy in the past in July about a year ago. It showed no ulcerations. Small hiatus hernia. We recommend to followup with hemoglobin, hematocrit. The anemia could be multifactorial etiology. I would recommend follow up with the hemoglobin, hematocrit, empiric treatment with PPI. Thank you very much for allowing us to participate in the care of the patient. Kassy Ordonez MD [facility]
--- NOTE | 2017-08-09 08:32 | CON ---
DATE: 08/08/2017 REFERRING PHYSICIAN: Dexter Palacios MD REASON FOR CONSULT: Chronic lung disease, lung cancer, cardiomyopathy, pulmonary hypertension. HISTORY OF PRESENT ILLNESS: This is a 72-year-old gentleman known to me from previous admission with multiple medical issues including main of which is severe cardiomyopathy with pulmonary hypertension, milrinone dependent; chronic lung disease with unresectable lung cancer, been on radiation therapy; anemia; atrial fibrillation; comes in with generalized weakness; had coffee-ground in the colostomy bag. No hemoptysis. No hematemesis. No hematuria or diarrhea reported. PAST MEDICAL HISTORY: Cardiomyopathy, milrinone dependent; chronic lung disease; lung cancer, been on radiation therapy; anemia; atrial fibrillation. SOCIAL HISTORY: Former smoker. Denied any alcohol use. FAMILY HISTORY: No significant cardiopulmonary disease reported. ALLERGIES: NONE KNOWN. MEDICATIONS: He is on Coreg 12.5 mg twice a day, doxycycline 100 mg twice a day, getting meropenem 1 gm q. 12 h., Primacor IV drip, Protonix 40 mg daily, Xopenex 0.63 q. 4h. REVIEW OF SYSTEMS: Lethargic. No headache. No chills. No fever. No nausea. No vomiting. Coffee-ground in colostomy bag. No leg pain or leg swelling. PHYSICAL EXAMINATION: GENERAL: Lethargic. VITAL SIGNS: Temperature 98, heart rate 105, respiratory rate 20, blood pressure 126/87, pulse 97% on nasal cannula. HEENT: Moist mucous membranes. No ulcer or thrush noted. NECK: Supple. No JVD. LUNGS: Scattered rhonchi. HEART: S1, S2. ABDOMEN: Soft, nondistended. Colostomy draining coffee ground. EXTREMITIES: There is no edema. NEUROLOGIC: Sleepy, arousable, follows simple commands. LABORATORY DATA: Hemoglobin 8.9, hematocrit 28.2, WBC 6.7, platelet is 216. INR 3.3. ABG showed pH 7.49, pCO2 of 35, O2 250 and that is on nasal cannula. Sodium 136, potassium 4.1, chloride 102, bicarbonate 25, BUN 39, creatinine 2.7, glucose 246, calcium is 8.9, AST 29, ALT 31, alk phos is 98. LDH 505. Troponin 0.16. ProBNP 10,800, albumin 301. Influenza A and B is negative. DIAGNOSTIC DATA: CAT scan of the chest, abdomen and pelvis is done, which shows dense consolidation and air bronchogram segment in the left upper lobe suspicious of pneumonia and smaller bilateral pleural effusion, stable, infrarenal abdominal aortic aneurysm. IMPRESSION AND PLAN: Severe cardiomyopathy with severe pulmonary hypertension, heart failure, atrial fibrillation, history of lung cancer, been on radiation therapy, cannot rule out pneumonia, anemia, has a colostomy with coffee-ground material, chronic lung disease. Spoke to the patient by the bedside. All the questions answered. Influenza A and B is negative. We will get his cortisol level in the morning. Antibiotics as per Infectious Diseases, inhaled bronchodilators. Follow up CBC, CMP in the morning. May need GI followup. Thank you and we will follow with you. Arabella Alva MD
[2017-08-09 10:12] LABS: BASO # 0.02 K/mm3 (0.0-2.0); BASO % 0.2 % (0.0-3.0); EOS # 0.1 (0.0-0.7); EOS % 1.3 % (1.5-5.0); GRAN # 7.44 (1.4-6.5); GRAN % 86.1 % (50.0-68.0); HEMOGLOBIN 9.3 g/dL (14.0-18.0); LYMPH # 0.6 (1.2-3.4); LYMPH % 7.1 % (22.0-35.0); MEAN CELL VOLUME 80.1 fl (80.0-105.0); MEAN CORPUSCULAR HEMOGLOBIN 25.1 pg (25.0-35.0); MEAN CORPUSCULAR HGB CONC 31.3 g/dl (31.0-37.0); MEAN PLATELET VOLUME 9.6 fl (7.0-11.0); MONO # 0.5 (0.1-0.6); MONO % 5.3 % (1.0-6.0); RBC 3.71 10^6/uL (3.5-6.1); WHITE BLOOD COUNT 8.6 10^3/ul (4.5-11.0)
[2017-08-09 10:34] LABS: INR 2.47 (0.93-1.08); PROTHROMBIN TIME 28.9 SECONDS (9.4-12.5)
[2017-08-09 10:39] LABS: ALBUMIN 3.4 g/dL (3.0-4.8); CALCIUM 8.8 mg/dL (8.4-10.5); MAGNESIUM 1.6 mg/dL (1.7-2.2)
[2017-08-09] MEDS: Milrinone 20mg/100ml D5W 100 ML IV PRN ×2 (11:32→22:55)
[2017-08-09] MEDS: Meropenem 500 MG in Sodium Chloride 0.9% 100 ML IVPB SCH ×2 (11:33→22:50)
--- NOTE | 2017-08-09 13:21 | CP.PCM.PN ---
Subjective - Date & Time of Evaluation Date of Evaluation: 08/09/17 Time of Evaluation: 13:16 - Subjective Subjective: Patient seen and examined at bedside. Patient accompanied by who translates for him. Patient is doing well at this time with no complaints. No respiratory distress or chest pain at this time. Denies fever, nausea, vomiting , diarrhea, headache. Objective - Vital Signs/Intake and Output Vital Signs (last 24 hours): Temp Pulse Resp BP Pulse Ox 97.5 F L 104 H 20 124/82 99 08/09/17 12:00 08/09/17 12:00 08/09/17 12:00 08/09/17 12:00 08/09/17 12:00 Intake and Output: 08/09/17 08/09/17 06:59 18:59 Intake Total 1195 100 Output Total 300 Balance 895 100 - Medications Medications: Current Medications Carvedilol (Coreg) 25 mg PO BID [facility] Last Admin: 08/09/17 09:46 Dose: 12.5 mg Furosemide (Lasix) 40 mg IV DAILY [facility] Stop: 08/11/17 11:26 Milrinone Lactate/Dextrose (Primacor 20mg/100ml D5w) 100 mls @ 8.981 mls/hr IV .Q11H9M PRN; Protocol; 0.3 MCG/KG/MIN PRN Reason: TITRATE PER MD ORDER Last Admin: 08/09/17 11:32 Dose: 0.3 mcg/kg/min, 8.981 mls/hr Meropenem 500 mg/ Sodium (Chloride) 100 mls @ 100 mls/hr IVPB Q12 [facility] PRN Reason: Protocol Stop: 08/15/17 20:01 Last Admin: 08/09/17 11:33 Dose: 100 mls/hr Doxycycline Hyclate 100 mg/ (Sodium Chloride) 100 mls @ 100 mls/hr IVPB Q12 [facility] PRN Reason: Protocol Last Admin: 08/09/17 09:29 Dose: 100 mls/hr Levalbuterol HCl (Xopenex) 0.63 mg IH Q4 [facility] Last Admin: 08/09/17 11:28 Dose: 0.63 mg Pantoprazole Sodium (Protonix Inj) 40 mg IVP DAILY [facility] Last Admin: 08/09/17 09:30 Dose: 40 mg - Labs Labs: 08/09/17 10:00 08/09/17 10:00 PT 28.9 SECONDS (9.4-12.5) H 08/09/17 10:00 INR 2.47 (0.93-1.08) H 08/09/17 10:00 APTT 40.6 Seconds (25.1-36.5) H 08/07/17 20:00 - Constitutional Appears: Non-toxic, No Acute Distress - Head Exam Head Exam: ATRAUMATIC, NORMAL INSPECTION, NORMOCEPHALIC - ENT Exam ENT Exam: Mucous Membranes Moist - Respiratory Exam Respiratory Exam: Clear to Ausculation Bilateral, NORMAL BREATHING PATTERN - Cardiovascular Exam Cardiovascular Exam: RRR, +S1, +S2 - GI/Abdominal Exam GI & Abdominal Exam: Soft, Normal Bowel Sounds. absent: Tenderness - Extremities Exam Extremities Exam: Normal Inspection - Neurological Exam Neurological Exam: Alert, Awake, Oriented x3 - Psychiatric Exam Psychiatric exam: Normal Affect, Normal Mood - Skin Skin Exam: Intact, Normal Color, Warm Assessment and Plan - Assessment and Plan (Free Text) Plan: 72 y/o M with PMH of ischemic cardiomyopathy on IV Milrinone, DM, iron deficiency anemia, COPD, CHF, A-fib, and Lung cancer s/p radiation presents with CHF exacerbation in the setting of elevated troponin. Elevated troponin thought to be due to CHF exacerbation as per Cardiology and will remain on Milrinone. Patient received 2 units of PRBCs and 1 of FFP. INR has returned to normal at this point. Patient also evaluated by Pulmonology who cannot rule out pneumonia. Patient will continue on Merrem. GI recommends continuing current medical regimen. Plan discussed with Dr. Iyengar. Krueger, PGY-2
--- NOTE | 2017-08-09 13:53 | CP.PCM.PN ---
<Briana Dixon - Last Filed: 08/09/17 13:53> Subjective - Date & Time of Evaluation Date of Evaluation: 08/09/17 Time of Evaluation: 10:10 - Subjective Subjective: Seen and examined at the bedside earlier today, chart reviewed. No acute overnight events reported. Patient denies nausea, vomiting, does report some abdominal pain no acute distress. No reports of any GI bleed. Patient remains on Primacor drip. Objective - Vital Signs/Intake and Output Vital Signs (last 24 hours): Temp Pulse Resp BP Pulse Ox 97.5 F L 104 H 20 124/82 99 08/09/17 12:00 08/09/17 12:00 08/09/17 12:00 08/09/17 12:00 08/09/17 12:00 Intake and Output: 08/09/17 08/09/17 06:59 18:59 Intake Total 1195 100 Output Total 300 Balance 895 100 - Medications Medications: Current Medications Carvedilol (Coreg) 25 mg PO BID [facility] Last Admin: 08/09/17 09:46 Dose: 12.5 mg Furosemide (Lasix) 40 mg IV DAILY [facility] Stop: 08/11/17 11:26 Milrinone Lactate/Dextrose (Primacor 20mg/100ml D5w) 100 mls @ 8.981 mls/hr IV .Q11H9M PRN; Protocol; 0.3 MCG/KG/MIN PRN Reason: TITRATE PER MD ORDER Last Admin: 08/09/17 11:32 Dose: 0.3 mcg/kg/min, 8.981 mls/hr Meropenem 500 mg/ Sodium (Chloride) 100 mls @ 100 mls/hr IVPB Q12 [facility] PRN Reason: Protocol Stop: 08/15/17 20:01 Last Admin: 08/09/17 11:33 Dose: 100 mls/hr Doxycycline Hyclate 100 mg/ (Sodium Chloride) 100 mls @ 100 mls/hr IVPB Q12 [facility] PRN Reason: Protocol Last Admin: 08/09/17 09:29 Dose: 100 mls/hr Levalbuterol HCl (Xopenex) 0.63 mg IH Q4 [facility] Last Admin: 08/09/17 11:28 Dose: 0.63 mg Pantoprazole Sodium (Protonix Inj) 40 mg IVP DAILY [facility] Last Admin: 08/09/17 09:30 Dose: 40 mg - Labs Labs: 08/09/17 10:00 08/09/17 10:00 PT 28.9 SECONDS (9.4-12.5) H 08/09/17 10:00 INR 2.47 (0.93-1.08) H 08/09/17 10:00 APTT 40.6 Seconds (25.1-36.5) H 08/07/17 20:00 - Constitutional Appears: No Acute Distress - Head Exam Head Exam: NORMOCEPHALIC - Eye Exam Eye Exam: Normal appearance. absent: Scleral icterus - ENT Exam ENT Exam: Mucous Membranes Moist - Respiratory Exam Respiratory Exam: Decreased Breath Sounds, Rhonchi, NORMAL BREATHING PATTERN. absent: Respiratory Distress - Cardiovascular Exam Cardiovascular Exam: +S1, +S2 - GI/Abdominal Exam GI & Abdominal Exam: Soft, Tenderness, Normal Bowel Sounds. absent: Guarding, Rebound Additional comments: positive colostomy with dark pasty stool, tenderness to left upper quadrant no rebound or guarding - Extremities Exam Extremities Exam: absent: Calf Tenderness, Pedal Edema - Neurological Exam Neurological Exam: Alert, Awake, Oriented x3 Assessment and Plan - Assessment and Plan (Free Text) Assessment: Assessment: Anemia, may be multifactoral, s/p 1 unit PRBC History of terminal ileal ulcerations, status post subtotal colectomy with ileostomy Pneumonia Aortic abdominal aneurysm status post endovascular repair History of coronary artery disease History of paroxysmal atrial fibrillation CHF with poor EF 10-15% Chronic kidney disease Plan: Continue antibiotics as per ID Follow-up H&H and transfuse as necessary Continue GI prophylaxis on PPI On Primacore drip On clear liquid, advance as tolerated continue to follow up closely Seen and discussed with Dr. Ordonez. <Kassy Ordonez V - Last Filed: 08/10/17 22:52> Objective - Vital Signs/Intake and Output Vital Signs (last 24 hours): Temp Pulse Resp BP Pulse Ox 97.4 F L 112 H 20 142/95 H 100 08/09/17 18:00 08/09/17 18:42 08/09/17 18:00 08/09/17 21:47 08/09/17 18:00 Intake and Output: 08/09/17 08/10/17 18:59 06:59 Intake Total 100 760 Balance 100 760 - Medications Medications: Current Medications Carvedilol (Coreg) 25 mg PO BID [facility] Last Admin: 08/09/17 18:42 Dose: 25 mg Furosemide (Lasix) 40 mg IV DAILY [facility] Stop: 08/11/17 11:26 Milrinone Lactate/Dextrose (Primacor 20mg/100ml D5w) 100 mls @ 8.981 mls/hr IV .Q11H9M PRN; Protocol; 0.3 MCG/KG/MIN PRN Reason: TITRATE PER MD ORDER Last Admin: 08/09/17 22:55 Dose: 0.3 mcg/kg/min, 8.981 mls/hr Meropenem 500 mg/ Sodium (Chloride) 100 mls @ 100 mls/hr IVPB Q12 [facility] PRN Reason: Protocol Stop: 08/15/17 20:01 Last Admin: 08/09/17 22:50 Dose: 100 mls/hr Doxycycline Hyclate 100 mg/ (Sodium Chloride) 100 mls @ 100 mls/hr IVPB Q12 [facility] PRN Reason: Protocol Last Admin: 08/09/17 22:50 Dose: 100 mls/hr Insulin Detemir (Levemir) 10 unit SC ACB [facility] Insulin Human Regular (Humulin R Low) 0 units SC ACHS [facility] PRN Reason: Protocol Last Admin: 08/09/17 22:00 Dose: Not Given Levalbuterol HCl (Xopenex) 0.63 mg IH Q4 [facility] Last Admin: 08/10/17 00:28 Dose: Not Given Magnesium Oxide (Mag-Ox) 400 mg PO BID [facility] Methylprednisolone (Solu-Medrol) 20 mg IVP BID [facility] Last Admin: 08/09/17 21:39 Dose: 20 mg Pantoprazole Sodium (Protonix Inj) 40 mg IVP DAILY [facility] Last Admin: 08/09/17 09:30 Dose: 40 mg - Labs Labs: 08/09/17 10:00 08/09/17 10:00 PT 28.9 SECONDS (9.4-12.5) H 08/09/17 10:00 INR 2.47 (0.93-1.08) H 08/09/17 10:00 APTT 40.6 Seconds (25.1-36.5) H 08/07/17 20:00 Attending/Attestation - Attestation I have personally seen and examined this patient.: Yes I have fully participated in the care of the patient.: Yes I have reviewed all pertinent clinical information, including history, physical exam and plan: Yes Notes (Text): This is an addendum to GI progress report dictated by Briana Dixon APN.The patient was seen and examined earlier. Medical records, lab studies, imagings were reviewed. Last 24 hours events reviewed. Agreed with the above treatment plan as outlined in Briana Dixon APN's notes the with the addition of the following abdomen soft colostomy present history of some dark stool status post transfusion of FFP and PRBC Will discuss with cardiology and PCP and consider EGD in a.m. 08/10/17 22:51
--- NOTE | 2017-08-09 17:21 | PN ---
DATE: 08/09/2017 REASON FOR CONSULTATION: Cardiac evaluation; history of coronary artery disease; cardiomyopathy, ischemic, on home milrinone; with generalized weakness; fatigue; coagulopathy; possible bleeding. SUBJECTIVE: Not in apparent distress, appears very weak and lethargic. PHYSICAL EXAMINATION: GENERAL: Not in apparent distress. VITAL SIGNS: Temperature afebrile, heart rate 109, blood pressure 144/94. HEENT: PERRLA, extraocular muscles intact. NECK: Supple. No carotid bruits. No thyromegaly. CHEST: Clear to auscultation. HEART: S1, S2. Regular. ABDOMEN: Soft. EXTREMITIES: Clubbing and cyanosis negative. LABORATORY DATA: Blood workup as follows; WBC 8.6, hemoglobin , hematocrit 29.7, platelet count 224,000. Chemistry shows sodium 130, potassium 4.0, chloride 102, carbon dioxide 25, anion gap of 12, BUN 36, creatinine 2.7. IMPRESSION: Chronic kidney disease stage 4; borderline troponin; most likely secondary to chronic kidney disease; anemia; status post packed red blood cell transfusion; status post platelet and fresh frozen plasma transfusion; possible bleeding into the colostomy bag, site is unknown; history of coronary artery disease; ischemic cardiomyopathy; status post automatic implantable cardioverter defibrillator; history of endovascular repair for abdominal aortic aneurysm, history of lung cancer, status post chemotherapy and radiation. RECOMMENDATIONS: Off Coumadin, on hold because of possible bleeding. INR today is 2.47. Continue milrinone. Continue Lasix. We will give one dose of Lasix stat. We will continue everyday Lasix. We short of breath and start Lasix from tomorrow IV. Further recommendation depending upon hospital course. We will follow with you. Overall, the patient's condition is critical. Long-term prognosis is extremely guarded. We will give Lasix daily from tomorrow. We will give one dose of stat today, then for 2 days and we will reassess. Monitor electrolytes. Thank you Dr. Maynard for providing us the opportunity in taking care of [place]. Arabella Mathews MD
--- NOTE | 2017-08-09 17:35 | CARD ---
APPROVED REPORT EKG Measurement Heart [id number] <Conclusion> Sinus tachycardia with 1st degree AV block Rightward axis Nonspecific ST and T wave abnormality Abnormal ECG
[2017-08-09] MEDS ORDERED: Magnesium Sulfate 2 GM in Sodium Chloride 0.9% 100 ML IVPB ONE (17:38)
[2017-08-09] MEDS: Insulin Reg-LOW-Coverage SC SCH ×2 (18:43→22:00)
[2017-08-09] MEDS: MethylPREDNISolone 40 mg Vial IVP SCH (21:39)
[2017-08-10] MEDS: Levalbuterol 0.63 MG/3 ML Inhal Soln UD IH SCH ×6 (00:28→19:51)
--- NOTE | 2017-08-10 00:28 | PN ---
DATE: 08/09/2017 SUBJECTIVE: The patient is in bed, in no acute distress, nontoxic. PHYSICAL EXAMINATION: VITAL SIGNS: Temperature is 98, blood pressure is 140/90 and respiratory rate of 18. HEENT: Unremarkable. NECK: Supple. LUNGS: Have decreased breath sounds. HEART: Normal S1 and S2. ABDOMEN: Soft and nontender. LABORATORY DATA: Reveals a white count of 8.6, hemoglobin of 9 and platelets of 224,000. Chemistries reveals the patient has a BUN of 36, creatinine of 2.7. Urinalysis is noted. Serology is noted. Microbiology reveals blood cultures are negative. MEDICATIONS: Review of orders reveals the patient to be on meropenem and vancomycin was given in one dose. ASSESSMENT AND PLAN: This is a 72-year-old male with past medical history of healthcare-associated pneumonia, severe cardiomyopathy with ejection fraction of 10%-50%, atrial fibrillation, coronary artery disease, history of stenting, history of aortic aneurysm, who was admitted in this admission with sepsis with a left upper lobe healthcare-associated pneumonia, possibly gram-positive cocci, possible gram-negative avis with a elevated creatinine of 2.7, which has been consistent with this patient. However, procalcitonin of 0.08 even in face of elevated creatinine speaks against bacterial pneumonia. We will follow with you and check on the final culture results. If the cultures remain negative, we will discontinue the antibiotics in the next 24 hours all consistent with congestive heart failure with ischemic cardiomyopathy. Walt Conner MD
--- NOTE | 2017-08-10 03:44 | PN ---
DATE: 08/09/2017 REFERRING PHYSICIAN: Dr. Palacios. SUBJECTIVE: The patient is lying in the bed, head at 45 degrees, is at bedside, night was unremarkable, no more melena in the colostomy bag. Short of breath with exertion. No nausea, no vomiting, no leg pain or leg swelling. OBJECTIVE: GENERAL: In no acute distress. VITAL SIGNS: Temperature is 98, heart rate is 112, respiratory rate is 20, blood pressure is 138/89, pulse ox 98% on nasal cannula. HEENT: Moist mucous membranes. Crowded airway. NECK: Supple. No JVD. LUNGS: Has fair airflow with few rhonchi. HEART: S1 and S2. ABDOMEN: Soft, nontender, nondistended. Colostomy bag looks okay, draining dark stool. EXTREMITIES: There is no edema. NEUROLOGICAL: Awake and alert. Follow simple commands. MEDICATIONS: He is on Coreg 25 mg twice a day, doxycycline 100 mg twice a day, insulin coverage, Lasix 40 mg daily, Levemir 10 units subcutaneous a.c.b., magnesium oxide 400 mg twice a day, meropenem 500 mg q. 12 hours, Primacor IV drip, Protonix 40 mg daily, Solu-Medrol 20 mg twice a day, Xopenex inhaled q. 4 hours. LABORATORY DATA: Shows hemoglobin 9.3, hematocrit 29.7, WBC 8.6, platelets are 224. INR 2.47. Blood sugar 263, hemoglobin A1c 7.4. 136, potassium 4.0, chloride 103, bicarbonate 25, BUN 37, creatinine 2.7, glucose 204, calcium 8.8, phosphorus 3.7, AST 30, ALT 25, alkaline phosphatase is 86, albumin is 3.4, procalcitonin is 0.08. Microbiology: Blood cultures have been negative. IMPRESSION AND PLAN: Severe cardiomyopathy with pulmonary hypertension, heart failure, atrial fibrillation, history of lung cancer, been on radiation therapy, cannot rule out pneumonia, anemia, has a colostomy with darker stool. Pulmonary point of view, he is doing okay, continue bronchodilators, keep head at 45 degrees, supplement oxygen, on Primacor drip, gastric prophylaxis, sequential compression device to the lower extremities, Coumadin on hold. The patient seen by [facility]. Follow up labs in the morning, also spoke to the patient's at bedside. All the questions answered. Thank you, and we will follow with you. Arabella Alva MD
[2017-08-10 07:13] LABS: GRAN # 3.44 (1.4-6.5); HEMOGLOBIN 8.8 g/dL (14.0-18.0); LYMPH # 0.3 (1.2-3.4); LYMPH % 7.2 % (22.0-35.0); MEAN CELL VOLUME 78.6 fl (80.0-105.0); MEAN CORPUSCULAR HEMOGLOBIN 25.1 pg (25.0-35.0); MEAN CORPUSCULAR HGB CONC 31.9 g/dl (31.0-37.0); MEAN PLATELET VOLUME 9.8 fl (7.0-11.0); MONO % 0.8 % (1.0-6.0); PLATELET COUNT 223 10^3/uL (120.0-450.0); RBC 3.51 10^6/uL (3.5-6.1); WHITE BLOOD COUNT 3.7 10^3/ul (4.5-11.0)
[2017-08-10 07:14] LABS: INR 2.23 (0.93-1.08); PROTHROMBIN TIME 26.1 SECONDS (9.4-12.5)
[2017-08-10 07:33] LABS: ALB/GLOB RATIO 0.9 (1.1-1.8); ALBUMIN 3.1 g/dL (3.0-4.8); CALCIUM 8.6 mg/dL (8.4-10.5); MAGNESIUM 1.9 mg/dL (1.7-2.2)
[2017-08-10] MEDS: Insulin Reg-LOW-Coverage SC SCH ×4 (08:28→21:57)
[2017-08-10] MEDS: Insulin Detemir 100 units/ml Vial (Levemir) SC SCH (08:28)
--- NOTE | 2017-08-10 08:53 | HP ---
REASON FOR ADMISSION: The patient came into the hospital with some dyspnea, weakness, found to be anemic. HISTORY OF PRESENT ILLNESS: This is a 72-year-old male with history of chronic atrial fibrillation, chronic cardiomyopathy, CVA, bedridden, on Coumadin, came in with blood pressure was low, the patient was dyspneic, feeling very weak. During the ER evaluation, his hemoglobin was 7 and decision was to admit the patient for observation and transfusion. He denied any fever; however, he feel weak, tired, and he does have a history of gram-negative sepsis and recurrent urinary tract infection several times. The patient is also on Coumadin and his INR is about 3. He has no nausea or vomiting. No other complaint. PAST MEDICAL HISTORY: Chronic atrial fibrillation, abdominal aortic aneurysm repair more than five years ago, colostomy or ileostomy on the right side of the abdomen with colostomy bag, ischemic cardiomyopathy with ICD pacemaker. The patient is currently on IV milrinone for ischemic cardiomyopathy; anemia, iron deficiency; also have insulin-dependent diabetes, on Levemir; COPD; lung cancer; history of pneumonia; recurrent urinary tract infections; left hemiplegia, bedridden, wheelchair ridden. ALLERGIES: NO KNOWN ALLERGIES. SOCIAL HISTORY: No smoking. No drinking. There was a supportive . MEDICATIONS: He is on Coreg 25 b.i.d.; Coumadin 2 mg daily; he does take IV milrinone; Protonix; iron pills; taking calcium pills calcium bicarbonate, sodium bicarb for his chronic renal failure; and nebulizer treatment for inhalations; taking aspirin also. REVIEW OF SYSTEMS: As in the present illness. PHYSICAL EXAMINATION: VITAL SIGNS: Temperature is 98.2, heart rate 88, blood pressure is 135/84, respirations 18, and saturation 99%. HEENT: Head and neck exam normal. No JVD. No thyromegaly. CHEST: Clear, good air entry. CARDIAC: First sound and second sound are normal. ABDOMEN: Soft. On colostomy bag examination, there is a dark black stools in the colostomy bag. Bowel sounds intact. EXTREMITIES: No edema. NEUROLOGICAL EXAM: Left hemiplegia. LABORATORY DATA: White count of 5.1, hemoglobin 7.9, hematocrit 25.3, platelets 230. Chemistry: Sodium 134, potassium 4.4, chloride 100, bicarb 25, BUN 42, creatinine 2.8, blood sugar 212. Liver function test is normal. Troponin is 0.16, BNP is 10,800. EKG which shows normal sinus rhythm, right axis deviation, ST-T abnormalities consistent with ischemia, no change from previous one. Then, he also had a chest x-ray which shows no infiltrates. There is right lower lobe and mid lung consolidation, . The patient does have a history of lung cancer. IMPRESSION AND PLAN: 1. This is a 72-year-old male with chronic atrial fibrillation, on Coumadin; has a colostomy, came in with low hemoglobin of 7 range and black tarry stool in the colostomy bag, feeling sick, weak. We will admit the patient. We will do an H and H. Check his hemoglobin on a regular basis. We will transfuse two units of packed RBCs, one unit of fresh frozen plasma and vitamin K 5 mg subcu once. The patient will also get an Hematology/Oncology consult. Cardiology consult Dr. Mathews, Hematology/Oncology Dr. Samson. Also, we will get the GI consultation with Dr. Ordonez. Continue IV Protonix. Monitor PT and INR, labs in the morning. 2. Chronic atrial fibrillation, ischemic cardiomyopathy, continue IV milrinone, hold off on Coumadin. 3. Chronic renal failure, stable. Creatinine usually runs between two to three, seems stable. We will monitor that and we will get Nephrology to see the patient. PLAN: To continue current medications. Continue Coreg, IV milrinone, IV Protonix, blood transfusions. We will get a CT of the abdomen and pelvis with no contrast. We will evaluate for any source of bleeding and we will follow up clinically. I spoke with the of the patient's. Dexter Palacios MD
[2017-08-10 09:10] LABS: HYPOCHROMIA 2+; LYMPHOCYTE 10 % (22.0-35.0); NEUTROPHIL 90 % (50.0-70.0); PLATELET ESTIMATE NORMAL (NORMAL); POLYCHROMASIA SLIGHT
[2017-08-10 09:11] LABS: ANISOCYTOSIS 1+; MICROCYTOSIS 1+; TOXIC GRANULATION 1+
--- NOTE | 2017-08-10 10:59 | CP.PCM.PN ---
Subjective - Date & Time of Evaluation Date of Evaluation: 08/10/17 Time of Evaluation: 10:55 - Subjective Subjective: Patient seen and examined at bedside. Patient with at bedside who translates for patient. Patient with no events overnight. Last bowel movement yesterday. Denies chest pain, shortness of breath, nausea, vomiting, diarrhea, fever. Objective - Vital Signs/Intake and Output Vital Signs (last 24 hours): Temp Pulse Resp BP Pulse Ox 98.1 F 94 H 22 127/71 99 08/10/17 05:31 08/10/17 05:31 08/10/17 05:31 08/10/17 05:31 08/10/17 05:31 Intake and Output: 08/10/17 08/10/17 06:59 18:59 Intake Total 1056 240 Output Total 800 Balance 1056 -560 - Medications Medications: Current Medications Carvedilol (Coreg) 25 mg PO BID [facility] Last Admin: 08/09/17 18:42 Dose: 25 mg Furosemide (Lasix) 40 mg IV DAILY [facility] Stop: 08/11/17 11:26 Milrinone Lactate/Dextrose (Primacor 20mg/100ml D5w) 100 mls @ 8.981 mls/hr IV .Q11H9M PRN; Protocol; 0.3 MCG/KG/MIN PRN Reason: TITRATE PER MD ORDER Last Admin: 08/09/17 22:55 Dose: 0.3 mcg/kg/min, 8.981 mls/hr Meropenem 500 mg/ Sodium (Chloride) 100 mls @ 100 mls/hr IVPB Q12 [facility] PRN Reason: Protocol Stop: 08/15/17 20:01 Last Admin: 08/09/17 22:50 Dose: 100 mls/hr Doxycycline Hyclate 100 mg/ (Sodium Chloride) 100 mls @ 100 mls/hr IVPB Q12 [facility] PRN Reason: Protocol Last Admin: 08/09/17 22:50 Dose: 100 mls/hr Insulin Detemir (Levemir) 10 unit SC ACB [facility] Last Admin: 08/10/17 08:28 Dose: 10 unit Insulin Human Regular (Humulin R Low) 0 units SC ACHS [facility] PRN Reason: Protocol Last Admin: 08/10/17 08:28 Dose: 3 units Levalbuterol HCl (Xopenex) 0.63 mg IH Q4 [facility] Last Admin: 08/10/17 07:55 Dose: 0.63 mg Magnesium Oxide (Mag-Ox) 400 mg PO BID [facility] Methylprednisolone (Solu-Medrol) 20 mg IVP BID [facility] Last Admin: 08/09/17 21:39 Dose: 20 mg Pantoprazole Sodium (Protonix Inj) 40 mg IVP DAILY [facility] Last Admin: 08/09/17 09:30 Dose: 40 mg - Labs Labs: 08/10/17 06:40 08/10/17 06:40 PT 26.1 SECONDS (9.4-12.5) H 08/10/17 06:40 INR 2.23 (0.93-1.08) H 08/10/17 06:40 APTT 40.6 Seconds (25.1-36.5) H 08/07/17 20:00 - Constitutional Appears: Non-toxic, No Acute Distress - Head Exam Head Exam: ATRAUMATIC, NORMAL INSPECTION, NORMOCEPHALIC - ENT Exam ENT Exam: Mucous Membranes Moist - Respiratory Exam Respiratory Exam: Decreased Breath Sounds, Rhonchi, NORMAL BREATHING PATTERN. absent: Rales, Wheezes - Cardiovascular Exam Cardiovascular Exam: RRR, +S1, +S2 - GI/Abdominal Exam GI & Abdominal Exam: Soft, Normal Bowel Sounds. absent: Tenderness - Neurological Exam Neurological Exam: Alert, Awake, Oriented x3 - Psychiatric Exam Psychiatric exam: Normal Affect, Normal Mood - Skin Skin Exam: Intact, Normal Color, Warm Assessment and Plan - Assessment and Plan (Free Text) Plan: 72 y/o M with PMH of ischemic cardiomyopathy on IV Milrinone, DM, iron deficiency anemia, COPD, CHF, A-fib, and Lung cancer s/p radiation presents with CHF exacerbation in the setting of elevated troponin. Elevated troponin thought to be due to CHF exacerbation as per Cardiology and will remain on Milrinone. Patient received 2 units of PRBCs and 1 of FFP. INR remains within therapeutic range, Coumadin has been held. Patient also evaluated by Pulmonology who cannot rule out pneumonia. Patient will continue on Merrem and Doxycycline as per ID. GI recommends continuing current medical regimen with possible EGD today. Plan discussed with Dr. Samson. Pati, PGY-2
[2017-08-10] MEDS: Milrinone 20mg/100ml D5W 100 ML IV PRN ×2 (11:10→21:14)
[2017-08-10] MEDS: Magnesium Oxide 400 mg Tab UD PO SCH ×2 (11:11→18:18)
[2017-08-10] MEDS: MethylPREDNISolone 40 mg Vial IVP SCH ×2 (11:14→18:14)
--- NOTE | 2017-08-10 11:14 | PQF CHF ---
This form is a permanent part of the medical record Dr. Palacios, Please specify type and severity of CHF in this patient. Clarification of your documentation is requested to better reflect the severity of illness and intensity of treatment of your patient. Indicators present [x] Diagnosis of CHF and/or history of CHF [x] BNP > 200 [x] Imaging Finding of Pulmonary Edema /Pleural Effusions [] Fluid/Volume Overload [] Pitting edema [x] Ejection Fraction < 40% (Indicative of Systolic Heart Failure) [] Ejection Fraction > 40% (Indicative of Diastolic Heart Failure) [] Dyspnea / Orthopenea / Paroxysmal Nocturnal Dyspnea [] Other: Location in the medical record that reflects the above clinical findings: [] Treatment Provided: [x] treatment with lasix, primacor. PHYSICIAN'S RESPONSE Based on your medical judgment of the clinical indicators outlined above, are you treating this patient for a known or suspected: [] Acute CHF [] Systolic [] Diastolic [] Combined [] Chronic CHF [] Systolic [] Diastolic [] Combined [] Acute on Chronic CHF []Systolic [] Diastolic [] Combined [] CHF due hypertension [] Acute systolic []Chronic systolic [] Acute/ chronic systolic [] Other, please indicate: [] [] If Unable to Determine, please check the box, sign and date. Present On Admission (POA) Indicator: [] Present at the time of admission [] Not present at the time of admission [] Clinically Undetermined In responding to this query, please exercise your independent professional judgment. The fact that a question is asked does not imply that any particular answer is desired or expected. Thank you for your clarification on this documentation. If you have any questions please call:[ ] * Thank you, [ ]Gaby Rankin [facility] #[id number] cement based materials pump tender [place]
--- NOTE | 2017-08-10 12:44 | PN ---
DATE: REASON FOR CONSULTATION: Cardiac evaluation, history of coronary artery disease, cardiomyopathy ischemic on home milrinone and with generalized weakness, coagulopathy, possible bleeding. SUBJECTIVE: The patient denies any chest pain, shortness of breath or any palpitation. Feels lot better. Yesterday, one dose of Lasix was given. PHYSICAL EXAMINATION: VITAL SIGNS: As follows, temperature afebrile, heart rate , and blood pressure 122/71. HEENT: PERRLA. Extraocular muscles intact. NECK: Supple. No carotid bruits. No thyromegaly. CHEST: Clear to auscultation. HEART: S1 and S2, regular. ABDOMEN: Soft. EXTREMITIES: Clubbing and cyanosis negative. LABORATORY DATA: Blood workup as follows; WBC 3.7, hemoglobin 8.3, hematocrit 27.6, and platelet count 223. Chemistry shows sodium 135, potassium 4.5, chloride 102, carbon dioxide 24, anion gap of 13, BUN 36, and creatinine 2.7. IMPRESSION: Chronic renal insufficiency, chronic kidney disease, diabetes, hypertension, hyperlipidemia, ischemic cardiomyopathy, status post percutaneous transluminal coronary angioplasty of left anterior descending, status post automatic implantable cardioverter-defibrillator, was on anticoagulation for paroxysmal atrial fibrillation, history of abdominal aortic aneurysm endovascular stent, history of lung cancer status post chemo, status post colostomy. RECOMMENDATIONS: Continue milrinone. Continue Lasix for now. Monitor electrolytes. Supplement p.r.n. Continue Coreg. We will follow with you. Thank you Dr. Palacios for the opportunity in taking care of the patient, [place]. patch worker for discharge planning. Arabella Mathews MD
--- NOTE | 2017-08-10 14:17 | PN ---
DATE: 08/10/2017 SUBJECTIVE: The patient is in bed, in no acute distress, nontoxic. PHYSICAL EXAMINATION: VITAL SIGNS: Temperature is 98, blood pressure is 120/70, and respiratory rate of 16. HEENT: Unremarkable. NECK: Supple. LUNGS: Have decreased breath sounds. HEART: Normal S1 and S2. ABDOMEN: Soft. LABORATORY DATA: Reveals the patient's white count of 3.7, hemoglobin of 8, and platelets of 223. Coagulation is noted. Chemistries revealed the patient has a procalcitonin of 0.08. Urinalysis is noted and the patient has a baseline creatinine of 2.7. Stool for occult blood is positive. Influenza is negative. Microbiology reveals the blood cultures are negative. ASSESSMENT AND PLAN: This is a 72-year-old male who was seen earlier this morning in [facility], bed 2 with past medical history of healthcare-associated pneumonia, severe cardiomyopathy with ejection fraction of 10% to 15% with atrial fibrillation, coronary artery disease, history of stenting, history of aortic aneurysm, admitted with sepsis with left upper lobe healthcare-associated pneumonia, doubt bacterial in origin with a normal procalcitonin in phase of renal disease. This is all consistent with severe cardiomyopathy and acute systolic congestive heart failure on top of chronic congestive heart failure with cultures negative and normal procalcitonin, we will discontinue meropenem, no further antibiotics needed at this point. The patient's doxycycline will be switched to p.o. to complete p.o. antibiotics, no further intravenous antibiotics needed and we will follow with you. Doxycycline p.o. for 100 mg b.i.d. x5 days. Walt Conner MD
[2017-08-10] MEDS: Meropenem 500 MG in Sodium Chloride 0.9% 100 ML IVPB SCH (14:27)
--- NOTE | 2017-08-10 15:24 | CP.PCM.PN ---
<Mery,Kovil V - Last Filed: 08/10/17 22:48> Objective - Vital Signs/Intake and Output Vital Signs (last 24 hours): Temp Pulse Resp BP Pulse Ox 98 F 92 H 20 102/61 98 08/10/17 18:00 08/10/17 22:00 08/10/17 18:00 08/10/17 18:00 08/10/17 18:00 Intake and Output: 08/10/17 08/11/17 18:59 06:59 Intake Total 340 940 Output Total 800 2100 Balance -460 -1160 - Medications Medications: Current Medications Carvedilol (Coreg) 25 mg PO BID [facility] Last Admin: 08/10/17 17:24 Dose: Not Given Doxycycline Hyclate (Doryx) 100 mg PO Q12 [facility] PRN Reason: Protocol Stop: 08/15/17 22:01 Last Admin: 08/10/17 21:06 Dose: 100 mg Furosemide (Lasix) 40 mg IV DAILY [facility] Stop: 08/11/17 11:26 Last Admin: 08/10/17 11:11 Dose: 40 mg Milrinone Lactate/Dextrose (Primacor 20mg/100ml D5w) 100 mls @ 8.981 mls/hr IV .Q11H9M PRN; Protocol; 0.3 MCG/KG/MIN PRN Reason: TITRATE PER MD ORDER Last Admin: 08/10/17 21:14 Dose: 0.3 mcg/kg/min, 8.981 mls/hr Insulin Detemir (Levemir) 10 unit SC ACB [facility] Last Admin: 08/10/17 08:28 Dose: 10 unit Insulin Human Regular (Humulin R Low) 0 units SC ACHS [facility] PRN Reason: Protocol Last Admin: 08/10/17 21:57 Dose: 4 units Levalbuterol HCl (Xopenex) 0.63 mg IH Q4 [facility] Last Admin: 08/10/17 19:51 Dose: 0.63 mg Magnesium Oxide (Mag-Ox) 400 mg PO BID [facility] Last Admin: 08/10/17 18:18 Dose: 400 mg Methylprednisolone (Solu-Medrol) 20 mg IVP BID [facility] Last Admin: 08/10/17 18:14 Dose: 20 mg Pantoprazole Sodium (Protonix Inj) 40 mg IVP DAILY [facility] Last Admin: 08/10/17 11:10 Dose: 40 mg - Labs Labs: 08/10/17 06:40 08/10/17 06:40 PT 26.1 SECONDS (9.4-12.5) H 08/10/17 06:40 INR 2.23 (0.93-1.08) H 08/10/17 06:40 APTT 40.6 Seconds (25.1-36.5) H 08/07/17 20:00 Attending/Attestation - Attestation I have personally seen and examined this patient.: Yes I have fully participated in the care of the patient.: Yes I have reviewed all pertinent clinical information, including history, physical exam and plan: Yes Notes (Text): This is an addendum to GI progress report dictated by Briana Dixon APN.The patient was seen and examined earlier. Medical records, lab studies, imagings were reviewed. Last 24 hours events reviewed. Agreed with the above treatment plan as outlined in Briana Dixon APN's notes the with the addition of the following on examination abdomen soft no tenderness Colostomy in place.stool present stool for occult blood positive Discussed with the patient's . Discussed with Dr. Palacios Discussed with the Dr. Mathews INR elevated at 2.3 would await for level to come down below 2. ReScheduled for EGD tomorrow 08/10/17 22:48 <Briana Dixon - Last Filed: 08/12/17 11:22> Subjective - Date & Time of Evaluation Date of Evaluation: 08/10/17 Time of Evaluation: 10:20 - Subjective Subjective: Seen and examined at the bedside earlier today, chart reviewed.patient at bedside, farm facility manager at bedside. Patient no reports of nausea, vomiting, or abdominal pain patient found to be guaiac positive. No acute overnight events reported. Spoke to via farm facility manager, patient on Coumadin for anticoagulant, last dose was on Tuesday. Objective - Vital Signs/Intake and Output Vital Signs (last 24 hours): Temp Pulse Resp BP Pulse Ox 97.8 F 94 H 20 116/76 99 08/10/17 12:00 08/10/17 12:00 08/10/17 12:00 08/10/17 12:00 08/10/17 05:31 Intake and Output: 08/10/17 08/10/17 06:59 18:59 Intake Total 1056 340 Output Total 800 Balance 1056 -460 - Medications Medications: Current Medications Carvedilol (Coreg) 25 mg PO BID [facility] Last Admin: 08/10/17 11:11 Dose: 25 mg Doxycycline Hyclate (Doryx) 100 mg PO Q12 [facility] PRN Reason: Protocol Stop: 08/15/17 22:01 Furosemide (Lasix) 40 mg IV DAILY [facility] Stop: 08/11/17 11:26 Last Admin: 08/10/17 11:11 Dose: 40 mg Milrinone Lactate/Dextrose (Primacor 20mg/100ml D5w) 100 mls @ 8.981 mls/hr IV .Q11H9M PRN; Protocol; 0.3 MCG/KG/MIN PRN Reason: TITRATE PER MD ORDER Last Admin: 08/10/17 11:10 Dose: 0.3 mcg/kg/min, 8.981 mls/hr Insulin Detemir (Levemir) 10 unit SC ACB [facility] Last Admin: 08/10/17 08:28 Dose: 10 unit Insulin Human Regular (Humulin R Low) 0 units SC ACHS [facility] PRN Reason: Protocol Last Admin: 08/10/17 12:44 Dose: 4 units Levalbuterol HCl (Xopenex) 0.63 mg IH Q4 [facility] Last Admin: 08/10/17 11:31 Dose: 0.63 mg Magnesium Oxide (Mag-Ox) 400 mg PO BID [facility] Last Admin: 08/10/17 11:11 Dose: 400 mg Methylprednisolone (Solu-Medrol) 20 mg IVP BID [facility] Last Admin: 08/10/17 11:14 Dose: 20 mg Pantoprazole Sodium (Protonix Inj) 40 mg IVP DAILY [facility] Last Admin: 08/10/17 11:10 Dose: 40 mg - Labs Labs: 08/10/17 06:40 08/10/17 06:40 PT 26.1 SECONDS (9.4-12.5) H 08/10/17 06:40 INR 2.23 (0.93-1.08) H 08/10/17 06:40 APTT 40.6 Seconds (25.1-36.5) H 08/07/17 20:00 - Constitutional Appears: No Acute Distress - Head Exam Head Exam: NORMOCEPHALIC - Eye Exam Eye Exam: Normal appearance. absent: Scleral icterus - ENT Exam ENT Exam: Mucous Membranes Moist - Respiratory Exam Respiratory Exam: NORMAL BREATHING PATTERN. absent: Respiratory Distress - Cardiovascular Exam Cardiovascular Exam: +S1, +S2 - GI/Abdominal Exam GI & Abdominal Exam: Soft, Normal Bowel Sounds. absent: Tenderness, Rebound Additional comments: positive ileostomy with dark stool. - Extremities Exam Extremities Exam: absent: Calf Tenderness, Pedal Edema - Neurological Exam Neurological Exam: Alert, Awake, Oriented x3 (he) - Skin Skin Exam: Dry, Warm Assessment and Plan - Assessment and Plan (Free Text) Assessment: Assessment: Anemia, may be multifactoral, s/p 1 unit PRBC History of terminal ileal ulcerations, status post subtotal colectomy with ileostomy Pneumonia Aortic abdominal aneurysm status post endovascular repair History of coronary artery disease History of paroxysmal atrial fibrillation CHF with poor EF 10-15% Chronic kidney disease Plan: Continue antibiotics as per ID Follow-up H&H and transfuse as necessary Continue GI prophylaxis on PPI On Primacore drip On clear liquid continue to follow up closely patient would benefit from endoscopic evaluation, will consider after cardiac clearance and improvement of INR,tentatively plan for tomorrow a.m. PT/INR in am Seen and discussed with Dr. Ordonez.
--- NOTE | 2017-08-10 23:24 | PN ---
DATE: 08/09/2017 SUBJECTIVE: He was lying down. A little bit dyspneic, who has seemed a little bit congested, afebrile and the patient was lying down, in mild respiratory distress and is next to him. PHYSICAL EXAMINATION: VITAL SIGNS: Temperature 97.5, heart rate 104, blood pressure 124/82, respirations 20, and saturating 98% on nasal canula 2 liters. HEAD AND NECK: Exam normal. Positive JVD. CHEST: Exam there were a few diminished breath sounds bilaterally. CARDIAC: First sound and second sound normal. There is systolic murmur across the precordium. ABDOMEN: Soft. There is a colostomy tube with black tarry stool around it. EXTREMITIES: Lower extremity, no edema. NEUROLOGIC: Exam, he does have right hemiplegia. LABORATORY DATA: White count 8.6, hemoglobin 9.3, hematocrit 29.7, and platelets 224. Chemistry, sodium 136, potassium 4, chloride 103, bicarb 25, BUN 36, creatinine 2.7 and blood sugar is 204. Hemoglobin A1c is 7.4, calcium 8.8, phosphorus 3.7, magnesium 1.6, and total bilirubin is 1.7. AST, ALT and alkaline phosphatase is normal. IMPRESSION AND PLAN: 1. A 72-year-old male came in, seems to be in distress, congested, and diminished breath sounds with few rhonchi. We will give the patient IV steroids, Solu-Medrol and continue nebulizer treatment. We will give him Lasix 40 IV daily now and continue oxygen nebulizer treatments. Cardiology will see him. Pulmonary also. He is on BiPAP machine and we will follow up. 2. Acute gastrointestinal bleed. The patient got transfusion, got fresh frozen plasma. PT, INR is 3 and 2.4. We will monitor his H and H and we will discuss with Dr. Samson, Hematology consult and GI, Dr. Stephens. The patient may go for endoscopy if stable cardiac mercedes. 3. Ischemic cardiomyopathy, chronic atrial fibrillation. He is off Coumadin currently. He got vitamin D, vitamin K, he got fresh frozen plasma, we will still monitor PT and INR. It seems like no active bleeding at this time. We will continue to monitor his H and H. We will repeat lab in the morning. Continue IV milrinone. 4. Diabetes, insulin-dependent. We will continue insulin coverage Lantus plus sliding scale. 5. Hypertension, continue current meds and followup clinically. The patient is currently on Coreg 25 mg b.i.d., which has been increased, doxycycline IV, insulin coverage, Lasix 40 IV daily, Levemir units twice a day, mag oxide, milrinone IV, Protonix IV, Solu-Medrol IV 20 mg b.i.d., and Xopenex q.i.d. q.4 hours. Continue current therapy. Dexter Palacios MD
--- NOTE | 2017-08-10 23:57 | PN ---
DATE: 08/10/2017 SUBJECTIVE: The patient is clinically stable. He looked better. Breathing is better, no distress. The bleeding and the black stool is much much less than before and seems stable. PHYSICAL EXAMINATION: VITAL SIGNS: Today is as follows, his temperature is 97.8, heart rate 94, blood pressure 116/76, respirations 20 and saturation 99% on room air. HEAD AND NECK: Normal. No JVD. No thyromegaly. CHEST: Clear. CARDIAC: First sound and second sound normal. Systolic murmur across precordium. ABDOMEN: Soft and nontender. EXTREMITIES: No edema. NEUROLOGIC: Hemiplegia. Right hemiplegia with weakness both lower extremities. The patient is alert, awake, and oriented x3. LABORATORY STUDY: White count 3.7, hemoglobin 8.8, hematocrit 27.6 and platelet is 223. Chemistry is noted for sugar 288 and also sodium 135, potassium 4.5, chloride 102, bicarb 24, BUN 26, creatinine 2.7 and blood sugar 263. Liver function test is normal. IMPRESSION AND PLAN: 1. Acute gastrointestinal bleed, continue to monitor. His hemoglobin stable. The patient's PT/INR still elevated, no Coumadin. We will repeat lab in the morning. The patient will need endoscopy after cardiac clearance. He is at high risk for procedure. 2. Chronic systolic heart failure. Continue IV milrinone. Continue IV Lasix. 3. Acute chronic obstructive pulmonary disease exacerbation. Continue IV steroids, continue nebulizer treatment, bilevel positive airway pressure, IV Lasix, oxygen, seems stable. 4. Insulin-dependent diabetes. Continue insulin coverage plus Levemir. Blood sugar is running probably as high secondary to steroids. Continue current therapy. Follow up clinically. Dexter Palacios MD
[2017-08-11] MEDS: Levalbuterol 0.63 MG/3 ML Inhal Soln UD IH SCH ×6 (00:06→20:08)
--- NOTE | 2017-08-11 04:49 | PN ---
DATE: 08/10/2017 PULMONARY PROGRESS NOTE REFERRING PHYSICIAN: Dexter Palacios MD SUBJECTIVE: The patient is lying in the bed, head at 45 degrees, much better, awake and alert, happy today. No headache. No rhinitis. No nausea. No vomiting. No diarrhea. No more melena. No leg swelling. OBJECTIVE: GENERAL: In no acute distress. VITAL SIGNS: Temperature is 98, heart rate is 90, respiratory rate is 20, blood pressure is 102/61, pulse oximetry is 98% on 2 L nasal cannula. HEENT: Moist mucous membranes. Crowded airway. Mallampati score is 4. NECK: Supple. No JVD. LUNGS: Have a fair airflow with rhonchi. HEART: S1 and S2. ABDOMEN: Soft, nontender, no organomegaly. Colostomy bag looking okay. EXTREMITIES: There is no edema. NEUROLOGICAL: Awake and alert, follows simple commands. MEDICATIONS: He is on Coreg 25 mg twice a day, doxycycline 100 mg twice a day, insulin coverage, Lasix 40 mg IV daily, Levemir 10 units subcu a.c.b., magnesium oxide 400 mg twice a day, Primacor IV drip, Protonix 40 mg daily, Solu-Medrol 20 mg twice a day, Xopenex inhaled q.4 hours. LABORATORY DATA: Shows hemoglobin 8.3, hematocrit 27.6, WBC 10.7, platelets are 223. INR is 2.23. Sodium 135, potassium 4.5, chloride 102, bicarbonate 24, BUN 36, creatinine 2.7, glucose 279, calcium 8.6, phosphorus 4.1, magnesium 1.9, AST 22, ALT 29, alkaline phosphatase is 85, albumin is 3.1. Stool occult blood is positive. Influenza A and B is negative. Microbiology, blood cultures have been negative. IMPRESSION AND PLAN: Severe cardiomyopathy with pulmonary hypertension, heart failure, atrial fibrillation, history of lung cancer, been on radiation therapy, pneumonitis, anemia, colostomy, stool positive for guaiac, being followed by Gastroenterology. Pulmonary point of view, doing okay, keep head at 45 degrees, bronchodilator, sleep apnea precautions. The patient is on Primacor, Coumadin is on hold. Arabella Alva MD
[2017-08-11 07:05] LABS: GRAN # 6.25 (1.4-6.5); HEMOGLOBIN 8.9 g/dL (14.0-18.0); LYMPH # 0.4 (1.2-3.4); LYMPH % 5.2 % (22.0-35.0); MEAN CELL VOLUME 81.3 fl (80.0-105.0); MEAN CORPUSCULAR HEMOGLOBIN 25.6 pg (25.0-35.0); MEAN CORPUSCULAR HGB CONC 31.4 g/dl (31.0-37.0); MEAN PLATELET VOLUME 10.1 fl (7.0-11.0); MONO # 0.3 (0.1-0.6); MONO % 3.8 % (1.0-6.0); RBC 3.48 10^6/uL (3.5-6.1); RED CELL DISTRIBUTION WIDTH 18.2 % (11.5-14.5); WHITE BLOOD COUNT 6.9 10^3/ul (4.5-11.0)
[2017-08-11 07:17] LABS: INR 2.12 (0.93-1.08); PROTHROMBIN TIME 24.7 SECONDS (9.4-12.5)
[2017-08-11 07:47] LABS: ALBUMIN 3.3 g/dL (3.0-4.8); CALCIUM 8.2 mg/dL (8.4-10.5)
[2017-08-11] MEDS: Insulin Reg-LOW-Coverage SC SCH ×4 (08:08→21:37)
[2017-08-11] MEDS: Milrinone 20mg/100ml D5W 100 ML IV PRN ×2 (08:46→19:51)
[2017-08-11] MEDS ORDERED: Propofol 10 mg/ml Inj (20 ML) ONE (10:11)
[2017-08-11] MEDS ORDERED: Etomidate 40 MG/20 ML ML IV ONE (10:17)
[2017-08-11] MEDS ORDERED: Lidocaine 2% Inj (20ml) ONE (10:19)
[2017-08-11] MEDS ORDERED: Sodium Chloride 0.9% 1,000 ML IV SCH (11:30)
[2017-08-11] MEDS: Magnesium Oxide 400 mg Tab UD PO SCH ×2 (12:21→18:20)
[2017-08-11] MEDS: Insulin Detemir 100 units/ml Vial (Levemir) SC SCH (12:22)
--- NOTE | 2017-08-11 12:34 | CP.PCM.PN ---
Subjective - Date & Time of Evaluation Date of Evaluation: 08/11/17 Time of Evaluation: 12:33 - Subjective Subjective: Patient seen and examined at bedside. Patient accompanied by at bedside. Patient with no complaints at this time. Last bowel movement was yesterday. Denies chest pain, shortness of breath, nausea, vomiting, diarrhea, headache, fever, chills. Objective - Vital Signs/Intake and Output Vital Signs (last 24 hours): Temp Pulse Resp BP Pulse Ox 98.3 F 91 H 13 114/75 98 08/11/17 11:35 08/11/17 12:21 08/11/17 11:35 08/11/17 12:21 08/11/17 11:35 Intake and Output: 08/11/17 08/11/17 06:59 18:59 Intake Total 1920 100 Output Total 2325 Balance -405 100 - Medications Medications: Current Medications Carvedilol (Coreg) [address] [facility] Last Admin: 08/11/17 12:21 Dose: 25 mg Doxycycline Hyclate (Doryx) [address] [facility] PRN Reason: Protocol Stop: 08/15/17 22:01 Last Admin: 08/11/17 12:21 Dose: 100 mg Milrinone Lactate/Dextrose (Primacor 20mg/100ml D5w) 100 mls @ 8.981 mls/hr IV .Q11H9M PRN; Protocol; 0.3 MCG/KG/MIN PRN Reason: TITRATE PER MD ORDER Last Admin: 08/11/17 08:46 Dose: 0.3 mcg/kg/min, 8.981 mls/hr Sodium Chloride (Sodium Chloride 0.9%) 1,000 mls @ 100 mls/hr IV .Q10H [facility] Insulin Detemir (Levemir) [address] [facility] Last Admin: 08/11/17 12:22 Dose: 10 unit Insulin Human Regular (Humulin R Low) [address] [facility] PRN Reason: Protocol Last Admin: 08/11/17 12:22 Dose: 4 units Levalbuterol HCl (Xopenex) 0.[address] [facility] Last Admin: 08/11/17 11:23 Dose: Not Given Magnesium Oxide (Mag-Ox) [address] [facility] Last Admin: 08/11/17 12:21 Dose: 400 mg Pantoprazole Sodium (Protonix Inj) [address] [facility] Last Admin: 08/11/17 12:21 Dose: 40 mg Prednisone (Prednisone Tab) [address] [facility] Last Admin: 08/11/17 12:21 Dose: 20 mg - Labs Labs: 08/11/17 06:00 08/11/17 06:00 PT 24.7 SECONDS (9.4-12.5) H 08/11/17 06:00 INR 2.12 (0.93-1.08) H 08/11/17 06:00 APTT 40.6 Seconds (25.1-36.5) H 08/07/17 20:00 - Constitutional Appears: Non-toxic, No Acute Distress - Head Exam Head Exam: ATRAUMATIC, NORMAL INSPECTION, NORMOCEPHALIC - ENT Exam ENT Exam: Mucous Membranes Moist - Respiratory Exam Respiratory Exam: Clear to Ausculation Bilateral, NORMAL BREATHING PATTERN - Cardiovascular Exam Cardiovascular Exam: RRR, +S1, +S2 - GI/Abdominal Exam GI & Abdominal Exam: Soft, Normal Bowel Sounds. absent: Tenderness - Extremities Exam Extremities Exam: Normal Inspection. absent: Calf Tenderness, Pedal Edema - Neurological Exam Neurological Exam: Alert, Awake, Oriented x3 - Psychiatric Exam Psychiatric exam: Normal Affect, Normal Mood - Skin Skin Exam: Intact, Normal Color, Warm Assessment and Plan - Assessment and Plan (Free Text) Plan: 72 y/o M with PMH of ischemic cardiomyopathy on IV Milrinone, DM, iron deficiency anemia, COPD, CHF, A-fib, and Lung cancer s/p radiation presents with CHF exacerbation in the setting of elevated troponin. Elevated troponin thought to be due to CHF exacerbation as per Cardiology and will remain on Milrinone. Patient received 2 units of PRBCs and 1 of FFP. INR remains within therapeutic range, Coumadin will continue to be held. Patient will have endoscopy today as per GI. He will also continue Merrem and Doxycycline for possible pneumonia. Will aim for hemoglobin goal of 9, will transfuse 1 unit of PRBCs. Patient also evaluated by Pulmonology who cannot rule out pneumonia. Patient will continue on Merrem and Doxycycline as per ID. Plan discussed with Dr. Samson. Pati, PGY-2
--- NOTE | 2017-08-11 16:28 | PN ---
DATE: 08/11/2017 REASON FOR CONSULTATION: Followup cardiac evaluation, history of coronary artery disease; cardiomyopathy, ischemic, on home milrinone; generalized weakness, GI bleed, for endoscopy today. SUBJECTIVE: Patient denies any chest pain, shortness of breath or any palpitation. is at the bedside. Obviously the patient is n.p.o., going for endoscopy. PHYSICAL EXAMINATION: As follows: VITAL SIGNS: Temperature afebrile, heart rate of 88, blood pressure 109/54. HEENT: PERRLA. Extraocular muscles intact. NECK: Supple. No carotid bruit, no thyromegaly. CHEST: Clear to auscultation. HEART: S1 and S2 regular. ABDOMEN: Soft. EXTREMITIES: Clubbing and cyanosis negative. LABORATORY DATA: Blood workup as follows, WBC is 6.9, hemoglobin 8.9, hematocrit 28.3, platelet count 231. Chemistries show sodium 131, potassium , chloride 90, carbon dioxide 23, anion gap of 15, BUN 42, creatinine 2.8. IMPRESSION: Chronic renal insufficiency stage 3 to 4 chronic kidney disease; cardiomyopathy, ischemic, ejection fraction 25%, on home milrinone; coronary artery disease, status post percutaneous transluminal coronary angioplasty of left anterior descending; gastrointestinal bleed, status post colostomy; history of endovascular stent, PT/INR is now therapeutic, for endoscopy today. RECOMMENDATIONS: Discussed with Dr. Stephens, patient is okayed to go for endoscopy with moderate procedure. Continue beta-yimi, monitor H and H, supplement electrolytes as needed. Cardiovascular status relatively stable. No acute events, no anginal symptoms. Once okay from GI point of view, if stable, can be discharged home. Thank you Dr. Palacios to provide us opportunity in taking care of [place]. We will follow with you. Aggressive medical treatment; no further cardiac intervention is warranted or planned at this time. Arabella Mathews MD
--- NOTE | 2017-08-11 23:55 | PN ---
DATE: 08/11/2017 SUBJECTIVE: The patient is in bed, in no acute distress, nontoxic. PHYSICAL EXAMINATION VITAL SIGNS: Temperature is 97, blood pressure is 111/60, respiratory rate of 18. HEENT: Unremarkable. NECK: Supple. LUNGS: Decreased breath sounds. HEART: Normal S1, S2. ABDOMEN: Soft and nontender. LABORATORY EXAMINATION: Reveals a white count of 6.9, hemoglobin of 8.9, platelets of 231. Coagulation is noted. Chemistry reveals a BUN of 22 and creatinine of 2.8. Blood cultures, no growth. ASSESSMENT AND PLAN: A 72-year-old male was seen earlier this morning in [facility], bed 2, healthcare-associated pneumonia, severe cardiomyopathy with ejection fraction of 10% to 15%; atrial fibrillation; coronary artery disease; history of stenting; history of aortic aneurysm admitted with sepsis, left upper lobe healthcare-associated pneumonia, doubt bacterial origin, the patient at this point has no evidence of infection. We will discontinue meropenem and on p.o. doxycycline for 4 more days. We will follow with you. The patient is at risk for developing nosocomial infections. Walt Conner MD
--- NOTE | 2017-08-12 01:18 | PN ---
DATE: 08/11/2017 REFERRING PHYSICIAN: Dr. Palacios. SUBJECTIVE: The patient is lying in the bed, having dinner, has a clear liquid diet, has EGD done today. There is no cough, no sputum infection, no more melena. No abdominal pain. No leg pain or leg swelling. OBJECTIVE: GENERAL: In no acute distress. VITAL SIGNS: Temperature is 98, heart rate is 94, respiratory rate is 20, blood pressure is 117/78 and pulse oximetry 98% on nasal cannula. HEENT: Moist mucous membrane. Crowded airway. NECK: Supple. No JVD. LUNGS: Has a fair airflow with rhonchi. HEART: S1 and S2. ABDOMEN: Soft and nontender. No organomegaly. Colostomy bag looks okay. EXTREMITIES: There is no edema. NEUROLOGIC: Awake, alert, follows simple commands. MEDICATIONS: He is on Coreg 25 mg twice a day, doxycycline 100 mg twice a day, insulin coverage, Levemir 10 units subcu a.c.b., magnesium oxide 400 mg twice a day, prednisone 20 mg daily, milrinone IV drip, Protonix 40 mg daily, Xopenex 0.63 q. 4 hours. LABORATORY DATA: Shows hemoglobin 8.9, hematocrit 28.3, WBC 6.9, platelet count is 231, INR 2.12. Sodium 131, potassium 4.7, chloride 98, bicarbonate 23, BUN 42, creatinine 2.8, glucose is 386, calcium 8.2, AST 23, ALT 27, alkaline phosphatase is 98, albumin is 3.3. Microbiology, blood cultures have been negative. Endoscopy report reviewed, there is no any ulcer or bleed on the EGD. IMPRESSION AND PLAN: Severe cardiomyopathy, milrinone dependent, pulmonary hypertension, atrial fibrillation, history of lung cancer, been on radiation therapy, pneumonitis, anemia, gastrointestinal bleed status post EGD which was unremarkable. I spoke to the patient's at bedside. All the questions answered. Pulmonary point of view, on bronchodilator, p.o. prednisone, on Primacor, being transfused. Follow up lab in the morning including CBC and CMP. Thank you and we will follow with you. Arabella Alva MD [facility] # [id number]
[2017-08-12] MEDS: Levalbuterol 0.63 MG/3 ML Inhal Soln UD IH SCH ×6 (01:24→19:59)
[2017-08-12] MEDS: Milrinone 20mg/100ml D5W 100 ML IV PRN ×2 (04:59→18:04)
[2017-08-12 07:28] LABS: MEAN CELL VOLUME 82.3 fl (80.0-105.0); MEAN CORPUSCULAR HGB CONC 31.6 g/dl (31.0-37.0); MEAN PLATELET VOLUME 10.5 fl (7.0-11.0); RBC 4.19 10^6/uL (3.5-6.1); RED CELL DISTRIBUTION WIDTH 18.1 % (11.5-14.5); WHITE BLOOD COUNT 9.7 10^3/ul (4.5-11.0)
[2017-08-12 07:29] LABS: HEMOGLOBIN 10.9 g/dL (14.0-18.0)
[2017-08-12 07:58] LABS: ALBUMIN 3.8 g/dL (3.0-4.8); CALCIUM 8.5 mg/dL (8.4-10.5)
[2017-08-12] MEDS: Insulin Reg-LOW-Coverage SC SCH ×3 (08:44→17:59)
[2017-08-12] MEDS: Insulin Detemir 100 units/ml Vial (Levemir) SC SCH (08:51)
[2017-08-12] MEDS: Magnesium Oxide 400 mg Tab UD PO SCH ×2 (09:18→18:14)
--- NOTE | 2017-08-12 10:09 | PN ---
DATE: REASON FOR CONSULTATION AND FOLLOWUP: Cardiac evaluation, history of coronary artery disease, cardiomyopathy ischemic, on home milrinone, generalized weakness, GI bleed, status post endoscopy yesterday. SUBJECTIVE: Denies any chest pain, shortness of breath or any palpitation. OBJECTIVE: GENERAL: Not in apparent distress. VITAL SIGNS: As follows, temperature afebrile, heart rate 90, and blood pressure 115/84. HEENT: PERRLA. Extraocular muscles intact. NECK: Supple. No carotid bruits or thyromegaly. CHEST: Clear to auscultation. HEART: S1 and S2, regular. ABDOMEN: Soft. EXTREMITIES: Clubbing and cyanosis negative. LABORATORY DATA: Blood workup as follows: WBC 9.3, hemoglobin 10.9, hematocrit 34.5, and platelet count 245. Chemistry shows sodium 131, potassium , chloride 100, carbon dioxide 20, anion gap of 15, BUN 46, and creatinine 3.2. IMPRESSION: esophagitis, normal stomach, normal appearing duodenum, hiatal hernia 1 cm, recommendation was continue present treatment. History of coronary artery disease, history of ischemic cardiomyopathy, history of stent in left anterior descending artery on home milrinone, history of endovascular repair for abdominal aortic aneurysm, history of colostomy, history of lung cancer status post radiation, status post endoscopy, history of automatic implantable cardioverter defibrillator, and history of paroxysmal atrial fibrillation, off anticoagulation, because of bleeding. Admitted with supratherapeutic INR, now INR is 2.12. RECOMMENDATIONS: Continue gentle diuretics. Continue milrinone. We will resume back p.o. Lasix. Continue Coreg. History of chronic renal insufficiency with baseline creatinine of 3.2. Thank you Dr. Palacios for providing us the opportunity in taking care of the patient, [place]. We will follow with you. Overall, the patient's condition is critical. Long-term prognosis is guarded. History of cardiomyopathy ischemic, ejection fraction 20-25%. Once it is cleared from the GI, we can resume back Coumadin or the INR get 2.5. Arabella Mathews MD [facility] # [id number]
--- NOTE | 2017-08-12 11:23 | CP.PCM.PN ---
Subjective - Date & Time of Evaluation Date of Evaluation: 08/12/17 Time of Evaluation: 09:45 - Subjective Subjective: S&E at bedside, chart reviewed, no acute overnight events. Torlerating clear liquids, Colostomy brown stool. Patient denies abdominal pain, N/V, sob or chest pain, had egd 08/11/16, found tohave esophagitis, no bleeding noted, no BX elevated INR. Objective - Vital Signs/Intake and Output Vital Signs (last 24 hours): Temp Pulse Resp BP Pulse Ox 97.4 F L 102 H 18 115/84 100 08/12/17 05:48 08/12/17 10:00 08/12/17 05:48 08/12/17 09:18 08/12/17 05:48 Intake and Output: 08/12/17 08/12/17 06:59 18:59 Intake Total 1194 Output Total 820 Balance 374 - Medications Medications: Current Medications Carvedilol (Coreg) 25 mg PO BID [facility] Last Admin: 08/12/17 09:17 Dose: 25 mg Doxycycline Hyclate (Doryx) 100 mg PO Q12 [facility] PRN Reason: Protocol Stop: 08/15/17 22:01 Last Admin: 08/12/17 09:18 Dose: 100 mg Furosemide (Lasix) 40 mg PO DAILY [facility] Last Admin: 08/12/17 09:18 Dose: 40 mg Milrinone Lactate/Dextrose (Primacor 20mg/100ml D5w) 100 mls @ 8.981 mls/hr IV .Q11H9M PRN; Protocol; 0.3 MCG/KG/MIN PRN Reason: TITRATE PER MD ORDER Last Admin: 08/12/17 04:59 Dose: 0.3 mcg/kg/min, 8.981 mls/hr Insulin Detemir (Levemir) 10 unit SC ACB [facility] Last Admin: 08/12/17 08:51 Dose: 10 unit Insulin Human Regular (Humulin R Low) 0 units SC ACHS [facility] PRN Reason: Protocol Last Admin: 08/12/17 08:44 Dose: 2 units Levalbuterol HCl (Xopenex) 0.63 mg IH Q4 [facility] Last Admin: 08/12/17 08:22 Dose: 0.63 mg Magnesium Oxide (Mag-Ox) 400 mg PO BID [facility] Last Admin: 08/12/17 09:18 Dose: 400 mg Pantoprazole Sodium (Protonix Inj) 40 mg IVP DAILY [facility] Last Admin: 08/12/17 09:17 Dose: 40 mg Prednisone (Prednisone Tab) 20 mg PO DAILY [facility] Last Admin: 08/12/17 09:18 Dose: 20 mg - Labs Labs: 08/12/17 07:00 08/12/17 07:00 PT 24.7 SECONDS (9.4-12.5) H 08/11/17 06:00 INR 2.12 (0.93-1.08) H 08/11/17 06:00 APTT 40.6 Seconds (25.1-36.5) H 08/07/17 20:00 - Constitutional Appears: No Acute Distress - Eye Exam Eye Exam: Normal appearance. absent: Scleral icterus - ENT Exam ENT Exam: Mucous Membranes Moist - Respiratory Exam Respiratory Exam: Rhonchi, NORMAL BREATHING PATTERN. absent: Respiratory Distress - Cardiovascular Exam Cardiovascular Exam: +S1, +S2 - GI/Abdominal Exam GI & Abdominal Exam: Soft, Normal Bowel Sounds. absent: Guarding, Tenderness, Rebound Additional comments: (+) colostomy, brown stool - Extremities Exam Extremities Exam: absent: Calf Tenderness - Neurological Exam Neurological Exam: Alert, Awake, Oriented x3 - Skin Skin Exam: Dry, Warm Assessment and Plan - Assessment and Plan (Free Text) Assessment: Assessment: Anemia, may be multifactoral, s/p 3 unit PRBC, 1U FFP, s/p EGD Esophagitis, LA grade A History of terminal ileal ulcerations, status post subtotal colectomy with ileostomy Pneumonia Aortic abdominal aneurysm status post endovascular repair History of coronary artery disease History of paroxysmal atrial fibrillation CHF with poor EF 10-15% Chronic kidney disease Plan: Continue antibiotics as per ID Follow-up H&H and transfuse as necessary Continue GI prophylaxis on PPI On Primacore drip advance diet full liquids continue to follow up closely Seen and discussed with Dr. Ordonez.
[2017-08-12 14:07] VITALS: RESP 20; O2SAT 99
--- NOTE | 2017-08-12 14:20 | CP.PCM.PN ---
Subjective - Date & Time of Evaluation Date of Evaluation: 08/12/17 Time of Evaluation: 14:16 - Subjective Subjective: Patient seen and examined at bedside. Patient with at bedside. Patient complains of shortness of breath and is wearing his nasal cannula. Patient with bowel movement yesterday. Denies chest pain, nausea, vomiting, diarrhea, fever, chills. Objective - Vital Signs/Intake and Output Vital Signs (last 24 hours): Temp Pulse Resp BP Pulse Ox 97.4 F L 101 H 20 118/85 99 08/12/17 12:00 08/12/17 12:00 08/12/17 12:00 08/12/17 12:00 08/12/17 12:00 Intake and Output: 08/12/17 08/12/17 06:59 18:59 Intake Total 1194 Output Total 820 Balance 374 - Medications Medications: Current Medications Carvedilol (Coreg) 25 mg PO BID [facility] Last Admin: 08/12/17 09:17 Dose: 25 mg Doxycycline Hyclate (Doryx) 100 mg PO Q12 [facility] PRN Reason: Protocol Stop: 08/15/17 22:01 Last Admin: 08/12/17 09:18 Dose: 100 mg Furosemide (Lasix) 40 mg PO DAILY [facility] Last Admin: 08/12/17 09:18 Dose: 40 mg Milrinone Lactate/Dextrose (Primacor 20mg/100ml D5w) 100 mls @ 8.981 mls/hr IV .Q11H9M PRN; Protocol; 0.3 MCG/KG/MIN PRN Reason: TITRATE PER MD ORDER Last Admin: 08/12/17 04:59 Dose: 0.3 mcg/kg/min, 8.981 mls/hr Insulin Detemir (Levemir) 10 unit SC ACB [facility] Last Admin: 08/12/17 08:51 Dose: 10 unit Insulin Human Regular (Humulin R Low) 0 units SC ACHS [facility] PRN Reason: Protocol Last Admin: 08/12/17 12:36 Dose: 3 units Levalbuterol HCl (Xopenex) 0.63 mg IH Q4 [facility] Last Admin: 08/12/17 11:48 Dose: 0.63 mg Magnesium Oxide (Mag-Ox) 400 mg PO BID [facility] Last Admin: 08/12/17 09:18 Dose: 400 mg Pantoprazole Sodium (Protonix Inj) 40 mg IVP DAILY [facility] Last Admin: 08/12/17 09:17 Dose: 40 mg Prednisone (Prednisone Tab) 20 mg PO DAILY [facility] Last Admin: 08/12/17 09:18 Dose: 20 mg Prednisone (Prednisone Tab) 10 mg PO DAILY [facility] - Labs Labs: 08/12/17 07:00 08/12/17 07:00 PT 24.7 SECONDS (9.4-12.5) H 08/11/17 06:00 INR 2.12 (0.93-1.08) H 08/11/17 06:00 APTT 40.6 Seconds (25.1-36.5) H 08/07/17 20:00 - Constitutional Appears: Non-toxic, No Acute Distress - Head Exam Head Exam: ATRAUMATIC, NORMAL INSPECTION, NORMOCEPHALIC - ENT Exam ENT Exam: Mucous Membranes Moist - Respiratory Exam Respiratory Exam: Clear to Ausculation Bilateral, Rhonchi (mild b/l), NORMAL BREATHING PATTERN - Cardiovascular Exam Cardiovascular Exam: RRR, +S1, +S2 - GI/Abdominal Exam GI & Abdominal Exam: Soft, Normal Bowel Sounds. absent: Tenderness - Extremities Exam Extremities Exam: Normal Inspection. absent: Calf Tenderness, Pedal Edema - Neurological Exam Neurological Exam: Alert, Awake, Oriented x3 - Psychiatric Exam Psychiatric exam: Normal Affect, Normal Mood - Skin Skin Exam: Intact, Normal Color, Warm Assessment and Plan - Assessment and Plan (Free Text) Plan: 72 y/o M with PMH of ischemic cardiomyopathy on IV Milrinone, DM, iron deficiency anemia, COPD, CHF, A-fib, and Lung cancer s/p radiation presents with CHF exacerbation in the setting of elevated troponin. Elevated troponin due to CHF exacerbation as per Cardiology and will remain on Milrinone. Patient received total of 3 units of PRBCs and 1 of FFP. Will await GI recommendations before starting anticoagulation. Endoscopy yesterday was unremarkable for any cause of anemia. He will also continue Doxycycline for possible pneumonia. Will aim for hemoglobin goal of 9. Patient also with [facility] today, will obtain nephrology consult. Plan discussed with Dr. Samson. Pati, PGY-2
--- NOTE | 2017-08-12 17:28 | CP.PCM.PN ---
Subjective - Date & Time of Evaluation Date of Evaluation: 08/12/17 Time of Evaluation: 11:15 - Subjective Subjective: Comfortable in bed, no fevers overnight, not in distress. Objective - Vital Signs/Intake and Output Vital Signs (last 24 hours): Temp Pulse Resp BP Pulse Ox 97.4 F L 90 18 115/84 100 08/12/17 05:48 08/12/17 05:48 08/12/17 05:48 08/12/17 05:48 08/12/17 05:48 Intake and Output: 08/12/17 08/12/17 06:59 18:59 Intake Total 1194 Output Total 820 Balance 374 - Medications Medications: Current Medications Carvedilol (Coreg) 25 mg PO BID [facility] Last Admin: 08/11/17 18:20 Dose: 25 mg Doxycycline Hyclate (Doryx) 100 mg PO Q12 [facility] PRN Reason: Protocol Stop: 08/15/17 22:01 Last Admin: 08/11/17 21:38 Dose: 100 mg Furosemide (Lasix) 40 mg PO DAILY [facility] Milrinone Lactate/Dextrose (Primacor 20mg/100ml D5w) 100 mls @ 8.981 mls/hr IV .Q11H9M PRN; Protocol; 0.3 MCG/KG/MIN PRN Reason: TITRATE PER MD ORDER Last Admin: 08/12/17 04:59 Dose: 0.3 mcg/kg/min, 8.981 mls/hr Insulin Detemir (Levemir) 10 unit SC ACB [facility] Last Admin: 08/12/17 08:51 Dose: 10 unit Insulin Human Regular (Humulin R Low) 0 units SC ACHS [facility] PRN Reason: Protocol Last Admin: 08/12/17 08:44 Dose: 2 units Levalbuterol HCl (Xopenex) 0.63 mg IH Q4 [facility] Last Admin: 08/12/17 08:22 Dose: 0.63 mg Magnesium Oxide (Mag-Ox) 400 mg PO BID [facility] Last Admin: 08/11/17 18:20 Dose: 400 mg Pantoprazole Sodium (Protonix Inj) 40 mg IVP DAILY [facility] Last Admin: 08/11/17 12:21 Dose: 40 mg Prednisone (Prednisone Tab) 20 mg PO DAILY [facility] Last Admin: 08/11/17 12:21 Dose: 20 mg - Labs Labs: 08/12/17 07:00 08/12/17 07:00 PT 24.7 SECONDS (9.4-12.5) H 08/11/17 06:00 INR 2.12 (0.93-1.08) H 08/11/17 06:00 APTT 40.6 Seconds (25.1-36.5) H 08/07/17 20:00 - Constitutional Appears: Non-toxic - Head Exam Head Exam: NORMAL INSPECTION - ENT Exam ENT Exam: Mucous Membranes Moist - Neck Exam Neck Exam: absent: Meningismus - Respiratory Exam Respiratory Exam: Decreased Breath Sounds Additional comments: left ACW pacemaker in place - Cardiovascular Exam Cardiovascular Exam: +S1, +S2 - GI/Abdominal Exam GI & Abdominal Exam: Soft. absent: Tenderness Assessment and Plan - Assessment and Plan (Free Text) Plan: Assessment Sepsis due to left upper lobe healthcare-associated pneumonia, probably atypical history of severe sepsis due to ESBL E. coli bacteremia, unclear source history of sepsis due to right sided healthcare-associated pneumonia history of UTI with carbapenem-resistant Klebsiella history of ESBL-producing Klebsiella bacteremia, secondary to the port S/P removal S/P treatment for healthcare-associated pneumonia history of C diff associated diarrhea history of UTI with yeast history healthcare-associated pneumonia Severe cardiomyopathy with EF 10-15 % paroxysmal atrial fibrillation Coronary artery disease S/P stenting history of aortic aneurysm history of SVT S/P AICD placement S/P procedure on his prostate in 2012 S/P partial colectomy and colostomy Plan continue Doxycycline for 3 days and will monitor clinically
[2017-08-12 18:09] VITALS: BP 124/77; PULSE 88
[2017-08-12 18:59] VITALS: TEMP 97.8
--- NOTE | 2017-08-12 20:27 | CP.PCM.PN ---
Subjective - Date & Time of Evaluation Date of Evaluation: 08/12/17 Time of Evaluation: 20:24 - Subjective Subjective: S:It was requested by nurse to write a prescription for Coumadin 1 mg po daily for this patient who is being discharged home. Patient has no acute symptoms. She was seen by nursing station. Pertinent medical record was reviewed. O: Last Vital Signs 3 Temp 97.8 F 08/12/17 16:00 Pulse 88 08/12/17 18:14 Resp 20 08/12/17 16:00 BP 124/77 08/12/17 18:14 Pulse Ox 99 08/12/17 12:00 Awake, alert, not in distress. LUNGS:Normal breathing pattern. A:Atrial fibrillation. P:Coumadin 1 mg PO daily for 30 days. Objective - Vital Signs/Intake and Output Vital Signs (last 24 hours): Temp Pulse Resp BP Pulse Ox 97.8 F 88 20 124/77 99 08/12/17 16:00 08/12/17 18:14 08/12/17 16:00 08/12/17 18:14 08/12/17 12:00 Intake and Output: 08/12/17 08/13/17 18:59 06:59 Intake Total 100 Balance 100 - Medications Medications: Current Medications Carvedilol (Coreg) 25 mg PO BID [facility] Last Admin: 08/12/17 18:14 Dose: 25 mg Doxycycline Hyclate (Doryx) 100 mg PO Q12 [facility] PRN Reason: Protocol Stop: 08/15/17 22:01 Last Admin: 08/12/17 09:18 Dose: 100 mg Furosemide (Lasix) 40 mg PO DAILY [facility] Last Admin: 08/12/17 09:18 Dose: 40 mg Milrinone Lactate/Dextrose (Primacor 20mg/100ml D5w) 100 mls @ 8.981 mls/hr IV .Q11H9M PRN; Protocol; 0.3 MCG/KG/MIN PRN Reason: TITRATE PER MD ORDER Last Admin: 08/12/17 18:04 Dose: 0.3 mcg/kg/min, 8.981 mls/hr Insulin Detemir (Levemir) 10 unit SC ACB [facility] Last Admin: 08/12/17 08:51 Dose: 10 unit Insulin Human Regular (Humulin R Low) 0 units SC ACHS [facility] PRN Reason: Protocol Last Admin: 08/12/17 17:59 Dose: 2 units Levalbuterol HCl (Xopenex) 0.63 mg IH Q4 [facility] Last Admin: 08/12/17 19:59 Dose: Not Given Magnesium Oxide (Mag-Ox) 400 mg PO BID [facility] Last Admin: 08/12/17 18:14 Dose: 400 mg Pantoprazole Sodium (Protonix Inj) 40 mg IVP DAILY [facility] Last Admin: 08/12/17 09:17 Dose: 40 mg Prednisone (Prednisone Tab) 20 mg PO DAILY [facility] Last Admin: 08/12/17 09:18 Dose: 20 mg Prednisone (Prednisone Tab) 10 mg PO DAILY [facility] - Labs Labs: 08/12/17 07:00 08/12/17 07:00 PT 24.7 SECONDS (9.4-12.5) H 08/11/17 06:00 INR 2.12 (0.93-1.08) H 08/11/17 06:00 APTT 40.6 Seconds (25.1-36.5) H 08/07/17 20:00
--- NOTE | 2017-08-12 21:07 | CON ---
DATE: 08/12/2017 REASON FOR CONSULTATION: Acute kidney injury. HISTORY OF PRESENT ILLNESS: This is a 72-year-old male, known to me from prior evaluation. The patient was admitted on 08/07/2017 with complaints of decompensated congestive heart failure and shortness of breath. The patient was evaluated by ICU. There was also reported poor appetite, concern for UTI. At the time of presentation, the patient was found to be hemodynamically stable. He was found to have a hemoglobin of 7.9. He was also found to have stable renal function, creatinine was 2.8, which is pretty much his baseline. Consultation is requested today because of elevated creatinine of 3.2. In the interim, the patient has received three units of PRBCs and one unit of fresh frozen plasma for his severe anemia. PAST MEDICAL AND SURGICAL HISTORY: NIDDM, hypertension, CAD, CABG, CHF, cardiomyopathy, decreased ejection fraction, AICD and permanent pacemaker, peripheral vascular disease, abdominal aortic aneurysm with repair, history of colostomy, underlying chronic kidney disease stage 4. FAMILY HISTORY: Noncontributory. SOCIAL HISTORY: No smoking, no alcohol use, no IV drug abuse. ALLERGIES: NO KNOWN DRUG ALLERGIES. MEDICATIONS: Currently, Coreg 25 b.i.d., doxycycline 100 q.12, insulin, Lasix 40 p.o. daily, Levemir, mag oxide, prednisone, milrinone, Protonix, Xopenex. REVIEW OF SYSTEMS: The patient is unable to provide systems review because he is not really able to comply. He appears comfortable. PHYSICAL EXAMINATION: GENERAL: Elderly male, lying in bed. VITAL SIGNS: Blood pressure 118/85, heart rate 101, respiratory rate 20, temperature 98. HEENT: Normocephalic, atraumatic, positive pallor. NECK: Supple, no JVD. LUNGS: Bilateral equal air entry, bilateral equal expansion, no rales, no rhonchi. CARDIAC: S1 and S2, regular rate and rhythm, positive murmur, no rub. ABDOMEN: Distended, soft, nontender, bowel sounds present. EXTREMITIES: No lower extremity edema. INTAKE AND OUTPUT: 1/0. LABORATORY DATA: Sodium 131, potassium 5.0, chloride 100, CO2 of 20, BUN 46, creatinine 3.2, glucose 287, calcium 8.5, AST 27, ALT 19, albumin 3.8. WBC 9.7, hemoglobin 10.9, hematocrit 34.5, and platelets 245. Stool occults positive. CT of the abdomen, dense consolidation and air bronchograms in the segment of the left upper lobe, suspicious for pneumonia, small bilateral pleural effusions. ASSESSMENT: 1. Acute kidney injury superimposed on chronic kidney disease stage 4 likely secondary to gastrointestinal bleed. 2. Hyponatremia. 3. Borderline hyperkalemia, also secondary to gastrointestinal bleed. 4. Decompensated congestive heart failure. 5. Left upper lobe pneumonia. 6. Vgv-zgzcmeb-tbperjook diabetes mellitus. 7. Hypertension. 8. Coronary artery disease/congestive heart failure/cardiomyopathy. 9. Anemia. PLAN: 1. Monitor H and H closely, transfuse to hemoglobin greater than 9. 2. Avoid nephrotoxins. 3. Continue inotropic agent. 4. Avoid hypotension. 5. Hold Lasix. 6. Will not give IV fluids in the setting of severe cardiomyopathy. Kaylen Crump MD
--- NOTE | 2017-08-13 01:42 | PN ---
DATE: 08/12/2017 PULMONARY PROGRESS NOTE REFERRING PHYSICIAN: Dr. Palacios. SUBJECTIVE: He is lying in the bed, comfortable, on milrinone drip, mild cough, clear sputum. No nausea, no vomiting, no diarrhea, no abdominal pain. No leg pain or leg swelling. OBJECTIVE: GENERAL: In no acute distress. VITAL SIGNS: Temperature is 98, heart rate is 88, respiratory rate is 20, blood pressure is 124/77, pulse oximetry is 99% on room air. HEENT: Moist mucous membranes. Crowded airway. NECK: Supple. No JVD. LUNGS: Have a few scattered rhonchi. HEART: S1 and S2. ABDOMEN: Soft, nontender, nondistended. Colostomy bag working well. EXTREMITIES: There is no edema. NEUROLOGICAL: Awake and alert. Follow simple commands. MEDICATIONS: He is on Coreg 25 mg twice a day, doxycycline 100 mg twice a day, insulin coverage, Levemir 10 units subcu a.c. , magnesium oxide 400 mg twice a day, prednisone 20 mg daily, Primacor drip, Protonix 40 mg daily, Xopenex inhaled q. 4 hours. LABORATORY DATA: Shows hemoglobin 10.9, hematocrit 34.5, WBC 9.7, platelets are 245. Sodium 131, potassium 5.0, chloride 100, bicarbonate 20, BUN 46, creatinine 3.2, glucose 387, calcium 8.5, AST 27, ALT 19, alk phos is 109, albumin is 3.8. Microbiology, blood cultures have been negative. IMPRESSION AND PLAN: Severe cardiomyopathy, milrinone dependent, pulmonary hypertension, atrial fibrillation, history of lung cancer, history of radiation therapy to the lungs, pneumonitis, anemia, gastroesophageal reflux disease. Pulmonary point of view, he is doing okay, continue bronchodilator, keep head at 45 degrees, p.r.n. supplement oxygen, on milrinone, no more melena, continue anticoagulation, keep INR around 2.5. Follow up lab in the morning. Arabella Alva MD
--- NOTE | 2017-08-14 22:51 | PN ---
DATE: 08/11/2017 SUBJECTIVE: The patient is comfortable in no distress. Had endoscopy that showed gastritis. The patient wants to go home, change p.o. prednisone now. He seems to be doing well. He has some cough, seems to be getting better and patient wants to go home. PHYSICAL EXAMINATION: VITAL SIGNS: On 08/11/2017, the patient's vital signs are as follows: Temperature 97.6, heart rate 88, blood pressure 106/76, respirations 18, saturation 96%. HEENT: Head and neck exam normal. No JVD. No thyromegaly. CHEST: Clear. CARDIAC: First and second sound normal, systolic murmur. ABDOMEN: Soft. Colostomy bag is clean. No bleeding. Bowel sounds intact. EXTREMITIES: No edema. NEUROLOGIC: The patient is weak in both lower extremities. It is around 4/5 with more left side weakness and hemiparesis. IMPRESSION AND PLAN: 1. Acute gastrointestinal bleed, status post transfusion. 2. Anemia, iron deficiency. 3. Chronic renal failure. 4. Ischemic cardiomyopathy with IV milrinone infusions. 5. Chronic renal failure. 6. Hypertension. 7. Cerebrovascular accident. 8. Atrial fibrillation. PLAN: Continue current therapy. Change p.o. prednisone and p.o. doxycycline. Probably, the patient will be discharged home. Dexter Palacios MD
--- NOTE | 2017-08-15 13:24 | DS ---
HISTORY OF PRESENT ILLNESS: Patient doing better, no chest pain, not short of breath, stable. He is on p.o. doxycycline. He has no new complaints. Seen by Pulmonary consult Dr. Alva. ID, Dr. Conner and Nephrology, Dr. Stoddard. Patient has no other complaint, seen by Dr. Reid Bell for his CHF and maintained on milrinone. Patient would be discharged. He came in with generalized weakness, was found to have a GI bleed, black melena from the stoma of his colostomy and patient was given transfusion 2 units and a total 3 units of packed red blood cells, hemoglobin was stable for several days and was resumed on a baby aspirin and essentially on Coumadin low dose to be titrated up. He also got fresh frozen plasma 1 unit and his bleeding was stopped. Endoscopy showed mild gastritis, otherwise no active bleeding. Seen by all specialists including Dr. Conner, ID consult, who has maintained on meropenem for possible urinary tract infection and pneumonia, but clearly patient seems stable. His current blood culture is negative. GI consult Dr. Grant, Pulmonary consult Dr. Alva, and Cardiology Dr. Mathews. Patient's discharge date was stable. PHYSICAL EXAMINATION: VITAL SIGNS: His temperature 97.8, heart rate 88, and blood pressure 124/77 and respiratory rate 20. HEAD AND NECK: Head and neck exam normal. No JVD. No thyromegaly. CHEST: Clear. CARDIAC: First and second heart sounds normal. No murmurs, rubs or gallops. There is systolic murmur. ABDOMEN: Soft. The colostomy is clean now. Nontender. EXTREMITIES: No edema. NEUROLOGIC: The patient moves all extremities, but he does have weakness in both lower extremities and left-sided weakness. LABORATORY DATA: White count 9.7, hemoglobin 10.9, hematocrit 34.5 and platelet is 245. Chemistry, sodium 131, potassium 5, chloride 100, bicarb 20, BUN 46, creatinine 3.2 and blood sugar is 287, calcium 8.5. Liver function test is normal. DISCHARGE DIAGNOSES: 1. Acute gastrointestinal bleed. 2. Mild gastritis. 3. Anemia, requiring transfusions. 4. Coagulopathy, requiring fresh frozen plasma. 5. Chronic congestive heart failure. 6. Ischemic cardiomyopathy. 7. Chronic renal failure. 8. Insulin-dependent diabetes mellitus. 9. Lung cancer. 10. Chronic obstructive pulmonary disease. 11. Cerebrovascular accident. 12. Atrial fibrillation. DISCHARGE INSTRUCTIONS: Patient was discharged to continue p.o. doxycycline for another 7 days, prednisone 10 mg p.o. daily to be tapered down, continue mag oxide, Coumadin 1 mg p.o. daily, Colace 25 b.i.d., Levemir 10 units subcutaneous daily, Lasix 40 p.o. daily, Pepcid 20 mg p.o. at bedtime and Protonix 40 mg p.o. daily. Continue nebulizer treatment. Continue IV milrinone and monitor PT/INR, labs has been given to the patient and we will follow up clinically as outpatient. Dexter Palacios MD
== END 2017-08-12 21:25 | disposition home or self-care (01) | DRG 377 ==
LOC: ED 19:03 → ERH 23:22 → 3RSO 08-08 20:15
PROVIDERS: ADMIT Internal Medicine; ATTEND Internal Medicine
PROC: 30233K1 Transfusion of Nonautologous Frozen Plasma into Peripheral Vein, Percutaneous Approach (ICD-10-PCS; 2017-08-08)
PROC: 30233N1 Transfusion of Nonautologous Red Blood Cells into Peripheral Vein, Percutaneous Approach (ICD-10-PCS; 2017-08-08)
PROC: 0DJ08ZZ Inspection of Upper Intestinal Tract, Via Natural or Artificial Opening Endoscopic (ICD-10-PCS; principal; 2017-08-11 10:00)
DX: K92.2 Gastrointestinal hemorrhage, unspecified (principal); I50.23 Acute on chronic systolic (congestive) heart failure; J18.9 Pneumonia, unspecified organism; I13.2 Hypertensive heart and chronic kidney disease with heart failure and with stage 5 chronic kidney disease, or end stage renal disease; I47.2 Ventricular tachycardia; N17.9 Acute kidney failure, unspecified; N18.5 Chronic kidney disease, stage 5; I27.29 Other secondary pulmonary hypertension; J44.1 Chronic obstructive pulmonary disease with (acute) exacerbation; E87.1 Hypo-osmolality and hyponatremia; G81.94 Hemiplegia, unspecified affecting left nondominant side; J44.0 Chronic obstructive pulmonary disease with (acute) lower respiratory infection; E11.22 Type 2 diabetes mellitus with diabetic chronic kidney disease; E11.51 Type 2 diabetes mellitus with diabetic peripheral angiopathy without gangrene; I48.0 Paroxysmal atrial fibrillation; I48.2 Chronic atrial fibrillation; D50.9 Iron deficiency anemia, unspecified; K21.0 Gastro-esophageal reflux disease with esophagitis; K44.9 Diaphragmatic hernia without obstruction or gangrene; E78.5 Hyperlipidemia, unspecified; I25.5 Ischemic cardiomyopathy; I25.10 Atherosclerotic heart disease of native coronary artery without angina pectoris; E87.5 Hyperkalemia; N40.0 Benign prostatic hyperplasia without lower urinary tract symptoms; Z95.810 Presence of automatic (implantable) cardiac defibrillator; Z85.118 Personal history of other malignant neoplasm of bronchus and lung; Z79.01 Long term (current) use of anticoagulants; Z74.01 Bed confinement status; Z86.73 Personal history of transient ischemic attack (TIA), and cerebral infarction without residual deficits; Z93.3 Colostomy status; Z87.440 Personal history of urinary (tract) infections; Z87.01 Personal history of pneumonia (recurrent); Z95.5 Presence of coronary angioplasty implant and graft; Z92.3 Personal history of irradiation; Z90.49 Acquired absence of other specified parts of digestive tract; Z87.891 Personal history of nicotine dependence; Z79.4 Long term (current) use of insulin

== ENCOUNTER 2017-08-26 18:29 | Inpatient (IN) | payer MEDICARE, MEDICAID ==
[2017-08-26 18:30] VITALS: PULSE 95; BMI 28.5
[2017-08-26] MEDS ORDERED: Sodium Chloride 0.9% 1,000 ML IV STA (19:12)
--- NOTE | 2017-08-26 19:21 | ED PDOC ---
Arrival/HPI - General Time Seen by Provider: 08/26/17 18:58 Historian: Patient, Spouse - History of Present Illness Narrative History of Present Illness (Text): 72yoM, on coumadin/aspirin, who was recently discharged 08/12/17 for GIB dark stool in stoma bag w transfusion 3 units and completed endoscopy with gastritis , completed doxycycline and now having nausea/vomiting wo blood and abdomen pain , but no cough/sob/chest pain/current nausea/vomiting/headache/dizziness/ numbness/ pain with urination. 08/26/17 19:15 08/26/17 19:17 Time/Duration: 4-6 hours Symptom Course: Improving Quality: Aching Severity Level: 2 Activities at Onset: Rest Context: Sitting Past Medical History - Provider Review Nursing Documentation Reviewed: Yes - Travel History Have you recently traveled outside [place] w/in the past 3 mons?: No - Infectious Disease Hx of Infectious Diseases: None - Tetanus Immunization Tetanus Immunization: Unknown - Cardiac Hx Cardiac Disorders: Yes Hx [place]: Yes Hx Hypertension: Yes - Pulmonary Hx Asthma: Yes Hx Emphysema: Yes - Neurological HX Cerebrovascular Accident: Yes - HEENT Hx HEENT Disorder: Yes Hx Cataracts: Yes - Renal Hx Renal Disorder: Yes - Endocrine/Metabolic Hx Diabetes Mellitus Type 2: Yes - Hematological/Oncological Hx Blood Disorders: Yes Hx Anemia: Yes - Integumentary Hx Dermatological Disorder: No - Musculoskeletal/Rheumatological Hx Falls: No - Gastrointestinal Hx Gastrointestinal Disorders: Yes (colostomy draining liquid brown) - Genitourinary/Gynecological Hx Reproductive Disorders: Yes - Psychiatric Hx Depression: Yes Hx Substance Use: No - Surgical History Hx Abdominal Aortic Aneurysm Repair: Yes (complicated by endoleak) Other/Comment: Colostomy, R side - Anesthesia Hx Anesthesia: Yes - Suicidal Assessment Feels Threatened In Home Enviroment: No Family/Social History - Physician Review Nursing Documentation Reviewed: Yes Family/Social History: No Known Family HX Smoking Status: Former Smoker Hx Alcohol Use: No Hx Substance Use: No Hx Substance Use Treatment: No Allergies/Home Meds Allergies/Adverse Reactions: Allergies No Known Allergies Allergy (Verified 08/08/17 02:04) Home Medications: Home Meds Medication Instructions Recorded Confirmed Coreg 25 mg PO BID 08/12/17 08/26/17 Doxycycline Hyclate [Doryx] 100 mg PO BID 08/12/17 08/12/17 Famotidine [Pepcid] 40 mg PO HS 08/12/17 08/26/17 Furosemide [Lasix] 40 mg PO DAILY 08/12/17 08/26/17 Insulin Detemir [Levemir] 10 units SQ DAILY 08/12/17 08/12/17 Magnesium Oxide [Mag-Ox] 400 mg PO BID 08/12/17 08/26/17 Pantoprazole Sodium [Protonix] 40 mg PO DAILY 08/12/17 08/26/17 Warfarin [Coumadin] 1 mg PO DAILY 08/12/17 08/26/17 predniSONE [predniSONE Tab] 10 mg PO DAILY 08/12/17 08/12/17 Aspirin [Ecotrin] 81 mg PO ONCE 08/26/17 08/26/17 Calcitriol [Calcitriol] 0.25 mg PO MWF 08/26/17 08/26/17 Calcium Acetate [Phoslo] 667 mg PO TID 08/26/17 08/26/17 Finasteride [Proscar] 5 mg PO ONCE 08/26/17 08/26/17 Lactobacillus Acidophilus 1 tab PO BID 08/26/17 08/26/17 [Acidophilus] Sodium Bicarbonate Tab [Sodium 650 mg PO ONCE 08/26/17 08/26/17 Bicarbonate Tab] Tamsulosin [Flomax] 0.4 mg PO ONCE 08/26/17 08/26/17 Review of Systems - Review of Systems Constitutional: Fatigue Eyes: Normal ENT: Normal Respiratory: Normal Cardiovascular: Normal Gastrointestinal: Abdominal Pain, Nausea, Vomiting Genitourinary Male: Normal Musculoskeletal: Normal Skin: Normal Neurological: Normal Endocrine: Normal Hemo/Lymphatic: Normal Psychiatric: Normal Physical Exam Vital Signs Reviewed: Yes Vital Signs Temp Pulse Resp BP Pulse Ox 08/26/17 20:59 98.5 F 116 H 17 126/78 96 Appearance: Positive for: Uncomfortable Pain Distress: Mild Mental Status: Positive for: Alert and Oriented X 3 - Systems Exam Head: Present: Atraumatic, Normocephalic Pupils: Present: PERRL Extroacular Muscles: Present: EOMI Conjunctiva: Present: Normal Ears: Present: Normal Mouth: Present: Moist Mucous Membranes Pharnyx: Present: Normal Nose (External): Present: Atraumatic Nose (Internal): Present: Normal Inspection Neck: Present: Normal Range of Motion Respiratory/Chest: Present: Clear to Auscultation, Good Air Exchange Cardiovascular: Present: Regular Rate and Rhythm Abdomen: Present: Tenderness, Ostomy Tubes, Other (abdomen with pink stoma and dark liquid stool, mild LLQ tenderness, without rebound/guarding and is soft.) Back: Present: Normal Inspection Upper Extremity: Present: Normal Inspection Lower Extremity: Present: Normal Inspection Neurological: Present: GCS=15, CN II-XII Intact, Speech Normal, Motor Func Grossly Intact Skin: Present: Warm, Normal Color Psychiatric: Present: Alert, Oriented x 3, Normal Insight, Normal Concentration Medical Decision Making ED Course and Treatment: 72yoM, on coumadin/aspirin, who was recently discharged 08/12/17 for GIB dark stool in stoma bag w transfusion 3 units and completed endoscopy with gastritis , completed doxycycline and now having nausea/vomiting wo blood and abdomen pain , but no cough/sob/chest pain/current nausea/vomiting/headache/dizziness/ numbness/ pain with urination. 08/26/17 19:23 08/26/17 21:02 wbc 10.9 hb 10 INR 2.92 lactic 1.0 trop 0.04 influenza negative creatinine 2.8 similar to prior 08/16/17 08/26/17 21:03 EXAM: CT Abdomen and Pelvis Without Intravenous Contrast Dictated and Authenticated by: Heriberto Benson MD 08/26/2017 11:52 PM IMPRESSION: 1. Bilateral pleural effusions. 2. Mild small bowel dilatation. DDX: Ileus, early obstruction. 3. Incidental/non-acute findings are described above. 08/27/17 00:[address] Palacios who stated can admit to remote telemetry, consult Dr. Mery houser , repeat cbc in the am, ivf - Lab Interpretations Lab Results: 08/26/17 20:10 08/26/17 20:10 Lab Results 08/26/17 20:10: Blood Type O NEGATIVE, Antibody Screen Negative, BBK History Checked Patient has bt 08/26/17 20:10: pO2 81 H, VBG pH 7.28 L, VBG pCO2 47.0, VBG HCO3 22.1, VBG Total CO2 23.5, VBG O2 Sat (Calc) 97.5 H, VBG Base Excess -4.8 L, VBG Potassium 4.1, Sodium 137.0, Chloride 105.0, Glucose 201 H, Lactate 1.0, FiO2 21.0, Venous Blood Potassium 4.1 08/26/17 20:10: Sodium 139, Chloride 105, Potassium 4.0, Carbon Dioxide 23, Anion Gap 16, BUN 51 H, Creatinine 2.8 H, Est GFR ( Amer) 27, Est GFR ( Non-Af Amer) 22, Random Glucose 186 H, Calcium 9.9, Total Bilirubin 0.9, AST 30 , ALT 31, Alkaline Phosphatase 102, Troponin I 0.04 D, Total Protein 6.8, Albumin 3.3, Globulin 3.5, Albumin/Globulin Ratio 1.0 L, Lipase 207 08/26/17 20:10: PT 34.0 H, INR 2.92 H, APTT 39.7 H 08/26/17 20:10: WBC 10.9, RBC 3.92, Hgb 10.2 L, Hct 32.2 L, MCV 82.1, MCH 26.0, MCHC 31.7, RDW 18.8 H, Plt Count 228, MPV 10.5, Gran % 87.1 H, Lymph % (Auto) 3.0 L, [place] % (Auto) 8.7 H, Eos % (Auto) 1.1 L, Baso % (Auto) 0.1, Gran # 9.47 H , Lymph # (Auto) 0.3 L, [place] # (Auto) 1.0 H, Eos # (Auto) 0.1, Baso # (Auto) 0.01, Neutrophils % (Manual) 87 H, Band Neutrophils % 1, Lymphocytes % (Manual) 4 L, Monocytes % (Manual) 6, Eosinophils % (Manual) 2, Platelet Evaluation Normal 08/26/17 19:50: Influenza Typ A,B (EIA) Negative for flu a/b I have reviewed the lab results: Yes - RAD Interpretation Radiology Orders: 08/26/17 21:02 ABDOMEN & PELVIS [ABD & PELVIS W/O PO OR IV CONT] [CT] 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 EKG (08/09/17) - Medication Orders Current Medication Orders: Sodium Chloride (Sodium Chloride 0.9%) 1,000 mls @ 100 mls/hr IV .Q10H STA Stop: 08/27/17 05:11 Last Admin: 08/26/17 20:39 Dose: 100 mls/hr eMAR Start Stop Document 08/26/17 20:39 IT (Rec: 08/26/17 20:39 IT [id number]) Intravenous Solution Start Date 08/26/17 Start Time 20:39 Sodium Chloride (Sodium Chloride 0.9%) 1,000 mls @ 100 mls/hr IV .Q10H ANTHONY Discontinued Medications Ondansetron HCl (Zofran Inj) 4 mg IVP STAT STA Stop: 08/26/17 19:13 Last Admin: 08/26/17 20:39 Dose: 4 mg IVP Administration Document 08/26/17 20:39 IT (Rec: 08/26/17 20:39 IT [id number]) Charges for Administration # of IVP Administrations 1 Pantoprazole Sodium (Protonix Inj) 80 mg IVP STAT STA Stop: 08/26/17 19:13 Last Admin: 08/26/17 20:39 Dose: 80 mg IVP Administration Document 08/26/17 20:39 IT (Rec: 08/26/17 20:39 IT [id number]) Charges for Administration # of IVP Administrations 1 Disposition/Present on Arrival - Present on Arrival Any Indicators Present on Arrival: No History of DVT/PE: No History of Uncontrolled Diabetes: No Urinary Catheter: No History Surgical Site Infection Following: None - Disposition Have Diagnosis and Disposition been Completed?: Yes Diagnosis: Abdominal pain, GI bleed Disposition: HOSPITALIZED Disposition Time: 00:41 Patient Plan: Admission Condition: STABLE Referrals: Dexter Palacios MD [Primary Care Provider] - Follow up with primary
[2017-08-26 20:28] LABS: VENOUS BLOOD GAS BASE EXCESS -4.8 mmol/L (0.0-2.0); VENOUS BLOOD GAS PO2 81 mm/Hg (30-55); VENOUS BLOOD PH 7.28 (7.32-7.43)
[2017-08-26 20:30] LABS: BASO # 0.01 K/mm3 (0.0-2.0); BASO % 0.1 % (0.0-3.0); EOS # 0.1 (0.0-0.7); EOS % 1.1 % (1.5-5.0); GRAN # 9.47 (1.4-6.5); GRAN % 87.1 % (50.0-68.0); HEMOGLOBIN 10.2 g/dL (14.0-18.0); LYMPH # 0.3 (1.2-3.4); MEAN CELL VOLUME 82.1 fl (80.0-105.0); MEAN CORPUSCULAR HGB CONC 31.7 g/dl (31.0-37.0); MEAN PLATELET VOLUME 10.5 fl (7.0-11.0); MONO % 8.7 % (1.0-6.0); PLATELET COUNT 228 10^3/uL (120.0-450.0); RBC 3.92 10^6/uL (3.5-6.1); RED CELL DISTRIBUTION WIDTH 18.8 % (11.5-14.5); WHITE BLOOD COUNT 10.9 10^3/ul (4.5-11.0)
[2017-08-26 20:42] LABS: ALBUMIN 3.3 g/dL (3.0-4.8); CALCIUM 9.9 mg/dL (8.4-10.5)
[2017-08-26 20:46] LABS: INR 2.92 (0.93-1.08)
[2017-08-26 20:47] LABS: PARTIAL THROMBOPLASTIN TIME 39.7 Seconds (25.1-36.5)
[2017-08-26 20:50] LABS: TROPONIN I 0.04 ng/mL
[2017-08-26 21:44] LABS: BAND 1 % (0-2); EOSINOPHIL 2 % (0.0-3.0); LYMPHOCYTE 4 % (22.0-35.0); MONOCYTE 6 % (1.0-6.0); NEUTROPHIL 87 % (50.0-70.0)
[2017-08-26 21:45] LABS: PLATELET ESTIMATE NORMAL (NORMAL)
--- NOTE | 2017-08-26 23:53 | CT ---
EXAM: CT Abdomen and Pelvis Without Intravenous Contrast CLINICAL HISTORY: 72 years old, male; Signs and symptoms; Bloating; Additional info: 72yom, with abdomen pain/llq tender TECHNIQUE: Axial computed tomography images of the abdomen and pelvis without intravenous contrast. All CT scans at this facility use one or more dose reduction techniques, viz.: automated exposure control; ma/kV adjustment per patient size (including targeted exams where dose is matched to indication; i.e. head); or iterative reconstruction technique. Coronal and sagittal reformatted images were created and reviewed. COMPARISON: CT - CHEST,ABDOMEN,PELVIS W/O CONT 2017-08-08 09:44 FINDINGS: Limitations: Lack of intravenous contrast. Motion artifact - mild. Streak artifact - mild. Lower thorax: Mild cardiomegaly. Coronary artery calcifications. Pacemaker lead. Minimal atelectasis/scarring. Small bilateral pleural effusions. Small hiatal hernia. ABDOMEN: Liver: Several small hypodense lesions, suboptimal evaluated but grossly stable. Gallbladder and bile ducts: No calcified stones. No ductal dilation. Pancreas: Unremarkable. No ductal dilation. Spleen: No splenomegaly. Adrenals: Mild hypertrophy of adrenal glands. Kidneys and ureters: Several probable renal cysts. Few probable hemorrhagic/proteinaceous renal cysts. No hydronephrosis. Stomach and bowel: Residual contrast within rectum. Partial colectomy. Few minimal to mildly distended loops of small bowel in midabdomen. No definite mural thickening. Appendix: See above. PELVIS: Bladder: Unremarkable. No stones. Reproductive: Mildly enlarged prostate. Subperitoneal space: Mild stranding in presacral space, stable. ABDOMEN and PELVIS: Intraperitoneal space: No significant fluid collection. No free air. Bones/joints: Degenerative changes and scoliosis of spine. No acute fracture. Soft tissues: Mild diffuse stranding within subcutaneous tissues. Colostomy within right lower quadrant. Vasculature: Abdominal aortic aneurysm with aortoiliac stent repair, grossly stable in appearance. Lymph nodes: No pathologically enlarged lymph nodes. IMPRESSION: 1. Bilateral pleural effusions. 2. Mild small bowel dilatation. DDX: Ileus, early obstruction. 3. Incidental/non-acute findings are described above.
[2017-08-27] MEDS ORDERED: Milrinone 20mg/100ml D5W 100 ML IV SCH (02:15)
[2017-08-27] MEDS: Milrinone 20mg/100ml D5W 100 ML IV PRN ×2 (04:25→16:34)
[2017-08-27] MEDS: Insulin Lispro 1 UNITS/0.01 ML SC SCH ×3 (08:04→16:30)
[2017-08-27] MEDS: Insulin Detemir 100 units/ml Vial (Levemir) SC SCH (10:56)
[2017-08-27] MEDS: Sodium Chloride 0.9% 1,000 ML IV SCH ×2 (10:57→11:09)
[2017-08-27] MEDS: Magnesium Oxide 400 mg Tab UD PO SCH ×2 (11:10→19:06)
[2017-08-27] MEDS: Lactobacillus Acidophilus 500 MU Cap PO SCH ×2 (11:47→19:06)
[2017-08-27] MEDS: Albuterol-Ipratrop 3 mg / 0.5 (3 ml) UD IH SCH ×4 (12:00→19:30)
[2017-08-27] MEDS ORDERED: Pneumococcal 23-Valent Vaccine IM ONE (14:09)
[2017-08-27] MEDS ORDERED: Influenza Vaccine 60 mcg/0.5 mL SYR (4YR UP) IM ONE (14:09)
--- NOTE | 2017-08-27 16:47 | CARD ---
APPROVED REPORT EKG Measurement Heart [id number] <Conclusion> Atrial fibrillation with rapid ventricular response Rightward axis T wave abnormality, consider inferior ischemia or digitalis effect Abnormal ECG
[2017-08-27 17:49] LABS: URINE BILIRUBIN NEGATIVE (NEGATIVE); URINE BLOOD TRACE-INTACT (NEGATIVE); URINE GLUCOSE (UA) NEGATIVE (NEGATIVE); URINE LEUKOCYTE ESTERASE NEGATIVE Leu/uL (NEGATIVE); URINE NITRATE NEGATIVE (NEGATIVE); URINE PROTEIN 100 mg/dL (<30 mg/dL); URINE UROBILINOGEN 0.2 E.U./dL (<1 E.U./dL)
[2017-08-27 17:51] LABS: URINE APPEARANCE CLEAR (CLEAR); URINE COLOR YELLOW (YELLOW)
[2017-08-27 18:09] LABS: URINE RBC 0 - 2 /hpf (0-2)
[2017-08-27 18:10] LABS: URINE AMORPHOUS SEDIMENT SMALL; URINE BACTERIA NEG (NEG); URINE WBC NEGATIVE /hpf (0-6)
[2017-08-27] MEDS: Nystatin 100,000 Units/gm Cream(15 gm) TOP SCH (19:07)
[2017-08-28] MEDS: Insulin Detemir 100 units/ml Vial (Levemir) SC SCH ×4 (00:09→22:07)
[2017-08-28] MEDS: Sodium Chloride 0.9% 1,000 ML IV SCH ×4 (00:12→22:08)
--- NOTE | 2017-08-28 01:26 | CON ---
DATE: CARDIOLOGY CONSULTATION REASON FOR CONSULTATION: Cardiomyopathy. HISTORY OF PRESENT ILLNESS: The patient is 72-year-old [place] male who has a history of dilated cardiomyopathy, history of colostomy and with recent discharge on 08/12 after he was treated for GI bleeding from the colostomy site that required packed RBC transfusion, three units, and underwent endoscopy at that time. The patient presented because of abdominal pain. Patient denies retrosternal chest pain. SOCIAL HISTORY: Nonsmoker. He is being attended by his at home. MEDICATIONS: Coreg 25 mg twice a day, albuterol inhaler, aspirin 81 mg once a day, Flomax 0.4 mg once a day, Lasix 40 mg twice a day, Levemir 10 units subcutaneous twice a day, magnesium oxide 400 mg p.o. twice a day, Pepcid 20 mg once a day, PhosLo one tablet with each meal, milrinone infusion, Proscar 5 mg once a day, Protonix 40 mg intravenously once a day, and normal saline at 100 mL an hour. REVIEW OF SYSTEMS: No hematemesis. No fever or chills. No productive cough. PHYSICAL EXAMINATION: GENERAL: Patient is an elderly male, who does not appear to be in acute distress. VITAL SIGNS: Blood pressure 126/76, heart rate 96, temperature 98.5, respirations 17. HEENT: Slightly pale conjunctivae. NECK: No JVD. CHEST: Diminished breath sounds over the bases. HEART: S1, S2, irregular. ABDOMEN: No tenderness. EXTREMITIES: No edema. LABORATORY DATA: Shows hematocrit 10.2 and hematocrit 32.2. White count and platelet count are within normal limits. SMA-7: Sodium 139, potassium 4, chloride 105, CO2 of 23, glucose 186, BUN 51, creatinine 2.8. One set of troponin is 0.04. INR is 2.92. EKG revealed atrial fibrillation at rate of 105, nonspecific ST-T-wave changes. Abdomen and pelvis CT scan, bilateral pleural effusion, mild small bowel dilatation. DIFFERENTIAL DIAGNOSIS: Ileus versus ileal obstruction. ASSESSMENT: 1. Dilated cardiomyopathy. 2. Chronic atrial fibrillation. 3. History of recent gastrointestinal bleed. 4. Rule out small bowel obstruction. 5. Chronic renal insufficiency. RECOMMENDATIONS: The patient is being kept n.p.o. Continue Coreg 25 mg twice a day, aspirin 81 mg once a day, Lasix 40 mg twice a day, magnesium oxide 400 mg twice a day, milrinone infusion, and normal saline at 100 mL an hour. Patient is awaiting gastrointestinal evaluation; however, at this point, it seems that the patient does not have a surgical abdomen. Oni Cowan MD
--- NOTE | 2017-08-28 03:42 | CON ---
DATE:08/27/2017 This patient was seen and evaluated earlier in the emergency room. The patient's was at bedside at the time of examination. HISTORY OF PRESENT ILLNESS: This is a 72-year-old patient with a past medical history of severe cardiomyopathy with ejection fraction about 10-15%, paroxysmal atrial fibrillation, status post endovascular repair abdominal aortic aneurysm, status post endoleak complicated by colonic ischemia, subtotal colectomy and ileostomy. Patient did have a GI bleeding before and had an ileoscopy done, which showed ulcerations in the distal ileal area proximal to the colostomy. Patient was managed conservatively with good improvement. Patient has a history of paroxysmal atrial fibrillation, on anticoagulation, and was admitted with anemia, GI bleeding and dark stool. Had an endoscopy done recently on 08/11/2017. Endoscopy showed LA grade A esophagitis, otherwise unremarkable except small hiatus hernia, no ulcers noticed. Patient's noticed the patient having vomiting and abdominal pain, and also noticed stool was dark in the colostomy bag, was brought to the emergency room. PAST MEDICAL HISTORY: Other past medical history is significant as above. Status post AICD placement, chronic kidney disease, status post CVA, BPH, history of urinary tract infection. SOCIAL HISTORY: Denies smoking or alcohol. FAMILY HISTORY: Noncontributory. REVIEW OF SYSTEMS: Positive as above. Other systems reviewed, negative. PHYSICAL EXAMINATION: GENERAL: Patient is lying on the bed, not in acute distress. VITAL SIGNS: Temperature is 98.5, pulse 93, blood pressure 124/77, afebrile. HEENT: Atraumatic, anicteric. NECK: Supple. HEART: S1, S2 heard. Irregular. LUNGS: Bilateral air entry present. ABDOMEN: Soft. Colostomy and ileostomy noticed in the right lower quadrant, found to have a dark green stool. LABORATORY DATA: When he came to the emergency room, hemoglobin 10.2, hematocrit 32.2, WBC 10.9, platelets 228. BUN 51, creatinine is 2.8. IMPRESSION: This is a 72-year-old patient with multiple comorbidities, subtotal colectomy and ileostomy, noticed to have dark stool and episodes of vomiting. This happened from last night. Endoscopy done before was negative. The CT scan was reviewed, dilated loops of the small bowel noticed. The differential diagnoses should include partial small bowel obstruction and gastroenteritis. Gastroparesis and diabetes are also should be considered. Patient has a poor dentition and patient was eating chicken yesterday, after that this happened. Other comorbidities include, 1. Chronic kidney disease. 2. Congestive heart failure, low ejection fraction 10 to 15%. 3. History of cerebrovascular accident and transient ischemic attack. 4. Diabetes mellitus. The differential diagnoses also include gastroparesis. RECOMMENDATION: We would recommend, 1. Followup of the hemoglobin and hematocrit. 2. We will start the patient on a clear liquid diet and slowly advance the diet to pureed diet based on the clinical course. 3. Advised to continue Protonix 40 mg daily. Patient has been on milrinone drip at home. Patient was recently discharged with doxycycline. Thank you very much for allowing us to participate in the care of the patient. Kassy Ordonez MD MTDJosé Antonio
[2017-08-28] MEDS: Milrinone 20mg/100ml D5W 100 ML IV PRN ×2 (04:46→17:50)
[2017-08-28 07:48] LABS: CALCIUM 8.9 mg/dL (8.4-10.5)
[2017-08-28] MEDS: Albuterol-Ipratrop 3 mg / 0.5 (3 ml) UD IH SCH ×4 (08:19→19:54)
[2017-08-28] MEDS: Insulin Lispro 1 UNITS/0.01 ML SC SCH ×3 (08:24→17:48)
[2017-08-28] MEDS: Magnesium Oxide 400 mg Tab UD PO SCH ×4 (09:56→17:51)
[2017-08-28] MEDS: Lactobacillus Acidophilus 500 MU Cap PO SCH ×4 (09:56→17:51)
[2017-08-28] MEDS: Nystatin 100,000 Units/gm Cream(15 gm) TOP SCH ×4 (10:08→17:52)
[2017-08-28 18:46] LABS: IRON 19 ug/dL (45-180)
[2017-08-28 18:56] LABS: % IRON SATURATION 8 % (20-55); TOTAL IRON BINDING CAPACITY 253 ug/dL (261-462)
[2017-08-28 20:04] LABS: HEMOGLOBIN 8.6 g/dL (14.0-18.0); MEAN CELL VOLUME 83.4 fl (80.0-105.0); MEAN CORPUSCULAR HEMOGLOBIN 26.4 pg (25.0-35.0); MEAN CORPUSCULAR HGB CONC 31.6 g/dl (31.0-37.0); MEAN PLATELET VOLUME 9.6 fl (7.0-11.0); RBC 3.26 10^6/uL (3.5-6.1); RED CELL DISTRIBUTION WIDTH 18.5 % (11.5-14.5); WHITE BLOOD COUNT 7.7 10^3/ul (4.5-11.0)
--- NOTE | 2017-08-28 21:19 | CON ---
DATE: 08/28/2017 Patient is admitted for Dr. Dexter Palacios. REFERRING PHYSICIAN: Dexter Palacios MD REASON FOR CONSULTATION: Evaluation of a patient known to us with chronic kidney disease, stage IV, who presents with small bowel obstruction, ileus and a slight elevation of his BUN creatinine above his baseline levels. HISTORY OF PRESENT ILLNESS: Patient is a 72-year-old white male who appears to be comfortable lying supine in bed on 3R. He has a history of chronic kidney disease stage IV with a baseline BUN in the 40s with a baseline creatinine in the 2.5 range, past history of urinary tract infections, history of mild hyponatremia in the past, history of IDDM. History of hypertension. History of ASHD, status post CABG, severe cardiomyopathy with ejection fraction in the 10% to 15% range, on outpatient Primacor therapy. History of peripheral vascular disease with an aortic abdominal aneurysm with repair. History of ileostomy status post subtotal colectomy. Past history of bowel obstruction. History of GI bleeding. History of CVA and TIA. History of BPH, history of hyperlipidemia, history of frequent UTIs. History of anemia secondary to chronic kidney disease. Patient presented to the hospital with increasing abdominal pain. Abdominal CT scan was done, which showed a possible small bowel obstruction secondary to ileus. Patient was admitted to the hospital for evaluation. PAST MEDICAL HISTORY: Significant for chronic kidney disease, stage IV; history of ischemic cardiomyopathy status post CABG; history of AICD/permanent pacemaker, ejection fraction 15%. Patient is on outpatient ionotropic therapy with Primacor. History of atrial fibrillation. History of peripheral vascular disease, aortic abdominal aneurysm, history of subtotal colectomy with ileostomy. History of bowel obstruction. History of GI bleeding, history of CVA, TIA, history of BPH, history of frequent UTIs, history of anemia secondary to chronic kidney disease. MEDICATIONS AT HOME: Include that of prednisone, Coumadin, Flomax, sodium bicarbonate, Protonix, mag oxide, acidophilus, insulin, Lasix, Proscar, Pepcid, Primacor, Doryx, Coreg, PhosLo, calcitriol, and Ecotrin. ALLERGIES: PATIENT HAS NO KNOWN ALLERGIES TO MEDICATION. CURRENT MEDICATIONS IN HOSPITAL: Include that of acidophilus, Coreg, DuoNeb, Ecotrin, Flomax, Humalog, p.o. Lasix, Levemir, mag oxide, Mycostatin, Pepcid, PhosLo, Primacor, Proscar, Protonix IV, IVF sodium bicarbonate and normal saline at 100 mL an hour. SOCIAL HISTORY: No history of cigarette smoking. He was a past cigarette smoker. No history of alcohol use. FAMILY HISTORY: Reviewed with patient, unchanged from past and is noncontributory. REVIEW OF SYSTEMS: GENERAL: Patient was stable until several days ago when he developed abdominal pain. Appetite and weight have been stable. ENT: Denies any hearing or visual problems. PULMONARY: Patient has chronic shortness of breath with exertion secondary to his ischemic cardiomyopathy. CARDIAC: History as noted above. GASTROINTESTINAL: Patient has an ileostomy. Increasing abdominal pain as noted above. No increase in liquid stools. No constipation. No nausea or vomiting. GENITOURINARY: History of chronic kidney disease, stage IV. Baseline creatinine in the mid 2 range. ENDOCRINE: History of diabetes mellitus with secondary hyperparathyroidism. MUSCULOSKELETAL: No complaints. NEUROLOGIC: Past history of CVA and TIA. No history of syncope. HEMATOLOGY-ONCOLOGY: Patient has history of anemia secondary to chronic kidney disease, history of a left upper lobe lung mass, being followed as with CT and PET scans. PSYCHIATRIC: Past psychiatric history is negative. PHYSICAL EXAMINATION: GENERAL: The patient is currently seen lying supine, comfortable in bed, IV fluids and Primacor are infusing. The patient's is in the room. VITAL SIGNS: Blood pressure 109/75, temperature 97.4, pulse of 93 with a respiratory rate of 20. HEENT: Shows him to be normocephalic, atraumatic. His conjunctivae are pale. Sclerae are nonicteric. Pupils equal, reactive to light accommodation. Extraocular muscles are intact. Posterior pharynx is normal. NECK: Supple. No neck vein distention, no thyromegaly, no lymphadenopathy. No bruits. CHEST: Clear to auscultation and percussion with slight decreased breath sounds at the bases. No rales, rhonchi or wheezing. CARDIOVASCULAR: Shows an irregular rate and rhythm without audible murmurs. Positive AICD, permanent pacemaker. ABDOMEN: Soft. Bowel sounds decreased. Ileostomy appears intact. No rebound, no guarding. No significant distention. BACK: No CVAT. No spinal tenderness. EXTREMITIES: Show no cyanosis, no clubbing or edema. Distal lower extremity pulses are 1 to 2+ bilaterally. NEUROLOGIC: Shows him to be alert, oriented x3 with no gross focal motor or sensory deficits noted. IMAGING STUDIES: Abdominal and pelvic CT scan done on admission showed small bowel obstruction with possible ileus, aortic abdominal aneurysm with repair, bilateral pleural effusions, and bilateral renal cysts. Chest x-ray was not done. Admitting EKG showed atrial fibrillation. LABORATORY DATA: CBC: White blood cell count 10.9, hemoglobin 10.2 with a platelet count of 228,000. Coagulation: PT of 34 with an INR of 2.92 with a PTT of 39.7. Patient is on Coumadin. Admitting blood gas showed a venous blood gas of 7.28, pO2 of 81 with a pCO2 of 47. Lactate level was normal. Admitting chemistries showed a BUN of 51 today down to 49 with admitting creatinine 2.8, today 2.9, slightly above his baseline range, but acceptable. Chloride was 109. Sodium 141 with a potassium of 4.0. Glucose is 115. Calcium was 8.9. Liver enzymes were normal. Albumin was 3.3 on admission. Lipase level was normal. Admitting urine showed 2+ protein. No white blood cells and no red blood cells. Microbiology: Blood cultures done on 08/26 are negative at 24 hours. No urine cultures were sent. ASSESSMENT: 1. Acute renal failure, mild in nature, superimposed on chronic kidney disease, stage IV, in the setting of small bowel obstruction and ileus. Patient remains on IV fluid hydration. In light of his severe cardiomyopathy, we need to make certain that we do not keep intake significantly ahead of output. I would like to balance his Is and Os. He does continue on low-dose diuretic therapy. Hope is that we could lower his BUN back to his baseline range in the low 40s with a baseline creatinine of 2.5. With the use of ionotropic agents and improvement in his cardiac output, we should be able to obtain this goal. 2. History of non-insulin dependent diabetes mellitus, currently on insulin. Patient's sugar control is acceptable. 3. History of hypertension. Blood pressure is presently controlled on current cardiac medications. 4. History of atherosclerotic heart disease, status post coronary artery bypass graft, history of congestive heart failure, history of cardiomyopathy with an ejection fraction of 15%. History of automated implantable cardioverter defibrillator with permanent pacemaker. Patient will continue receiving Primacor therapy, both inpatient and outpatient. He has a peripherally inserted central catheter line in his right upper extremity. 5. History of peripheral vascular disease with aortic abdominal aneurysm status post repair, currently stable. 6. Past history of metabolic acidosis. Currently, patient's acid-base status is stable. He remains on oral bicarbonate therapy. 7. History of anemia secondary to chronic kidney disease. Once hemoglobin drops below 10, patient may start on Aranesp therapy. We will check his iron levels likely we have done in the past and supplement accordingly. 8. History of benign prostatic hypertrophy, currently stable. 9. History of mild hyperlipidemia, currently stable. PLAN: 1. We will continue to monitor accurate Is and Os. Cautioned not to let the patient get too ahead on fluids in light of his history of severe cardiomyopathy. 2. Continue ionotropic support as this has helped the patient both in the inpatient and outpatient setting. 3. GI followup for his bowel obstruction. 4. Aranesp and iron as noted above. 5. Daily labs and accurate Is and Os. 6. Discussed with staff and patient's in detail. Thank you for letting us partake and share in the care of your patient. Mio Stoddard MD MTDJosé Antonio
[2017-08-29] MEDS: Sodium Chloride 0.9% 1,000 ML IV SCH ×2 (02:45→19:07)
--- NOTE | 2017-08-29 04:40 | PN ---
DATE: SUBJECTIVE: This patient was seen and evaluated earlier. Patient's was at bedside. Patient is tolerating clear liquid diet. No complaints yet. No vomiting. Small amount of Dark stool in ileostomy PHYSICAL EXAMINATION: VITAL SIGNS: Blood pressure 109/75, O2 saturation is 99%, respirations 20. HEENT: Atraumatic, anicteric. NECK: Supple. HEART: S1 and S2 heard. LUNGS: Bilateral air entry present. ABDOMEN: Softly, ileostomy present. LABORATORY DATA: Hemoglobin has dropped to 8.6, hematocrit 27.2, WBC 7.7, platelets 167. Patient's BUN 49, creatinine 2.9. Patient is on IV fluids at 60 mL per hour. IMPRESSION: This is a 72-year-old patient admitted with vomiting and dark stool in the ileostomy bag. The CT scan showed some dilated few loops of the bowel. Colostomy at that time found to have a dark green stool, rather than melena. Patient has now drop in blood count. Hemoglobin is down from 10.2 to 8.6. BUN is from 51 to 49. Creatinine 2.8 to 2.9. Presently, on IV fluids. The drop in blood count could be due to dilutional; however, a gastrointestinal bleeding cannot be ruled out, mainly in the ileal area. Patient has been, for anticoagulation, on warfarin at home. INR yesterday was 2.92. I would recommend to continue Protonix 40 mg daily. Patient is also on aspirin. Followup repeat the INR. Follow up of the CBC. Any significant drop of blood count, we will need a transfusion. If any active bleeding, we will consider a bleeding scan. Enteroscopy through the ileostomy will be based on the clinical course. We will advance the diet to full liquid diet. Thank you very much for allowing us to participate in the care of the patient. Kassy Ordonez MD MTDJosé Antonio
[2017-08-29 06:47] LABS: HEMOGLOBIN 8.4 g/dL (14.0-18.0); MEAN CELL VOLUME 82.8 fl (80.0-105.0); MEAN CORPUSCULAR HEMOGLOBIN 25.8 pg (25.0-35.0); MEAN CORPUSCULAR HGB CONC 31.2 g/dl (31.0-37.0); MEAN PLATELET VOLUME 9.9 fl (7.0-11.0); RBC 3.25 10^6/uL (3.5-6.1); RED CELL DISTRIBUTION WIDTH 18.3 % (11.5-14.5); WHITE BLOOD COUNT 4.8 10^3/ul (4.5-11.0)
[2017-08-29 07:01] LABS: ALB/GLOB RATIO 0.9 (1.1-1.8); ALBUMIN 2.7 g/dL (3.0-4.8); CALCIUM 8.8 mg/dL (8.4-10.5); MAGNESIUM 1.7 mg/dL (1.7-2.2)
[2017-08-29 07:27] LABS: INR 2.9 (0.93-1.08); PROTHROMBIN TIME 34.1 SECONDS (9.4-12.5)
[2017-08-29] MEDS: Albuterol-Ipratrop 3 mg / 0.5 (3 ml) UD IH SCH ×4 (07:38→20:51)
[2017-08-29] MEDS: Insulin Lispro 1 UNITS/0.01 ML SC SCH ×3 (08:12→17:54)
[2017-08-29] MEDS: Milrinone 20mg/100ml D5W 100 ML IV PRN ×2 (08:36→21:43)
--- NOTE | 2017-08-29 08:37 | CON ---
DATE: PULMONARY CONSULTATION REFERRING PHYSICIAN: Dexter Palacios MD REASON FOR CONSULTATION: Chronic obstructive lung disease, lung cancer, admitted with GI bleed. HISTORY OF PRESENT ILLNESS: This is a 72-year-old gentleman known to me from previous admission, with multiple medical issues, main of which is severe cardiomyopathy, milrinone dependent, cardiac arrhythmia; history of left upper lobe lung cancer, been on radiation therapy; also history of hemicolectomy with ileostomy; recurrent GI bleed, bowel obstruction, comes in because of vomiting with partial small bowel obstruction, there was some coffee-ground in the ileostomy. The patient was placed on pureed diet. At present, he feels better. In ileostomy, has a clear stool, yellowish color. No nausea or vomiting. Has some cough. No hemoptysis. No leg pain or leg swelling. PAST MEDICAL HISTORY: Again significant for hypertension, cardiomyopathy, chronic lung disease, history of CVA, renal insufficiency, diabetes, anemia, has a colostomy with hemicolectomy in the past, depression. FAMILY HISTORY: No significant cardiopulmonary disease reported. SOCIAL HISTORY: Former smoker. Denied any alcohol use. ALLERGIES: NONE KNOWN. MEDICATIONS: He is on lactobacillus 1 capsule twice a day, Coreg 25 mg twice a day, albuterol and Atrovent nebulizer q.i.d., Ecotrin 81 mg daily, Flomax 0.4 mg daily, insulin coverage, Lasix 40 mg daily, Levemir 10 units subcu q. 12 hours, magnesium oxide 400 mg twice a day, Mycostatin in the affected area 3 times a day, Pepcid 40 mg daily, calcium acetate is 667 mg, IV milrinone, Proscar 5 mg daily, Protonix 40 mg daily; calcitriol 0.25 mcg on Tuesday, Tuesday, and Tuesday; sodium bicarbonate 650 mg daily, IV fluid normal saline 60 mL per hour, Xanax 0.25 mg daily p.r.n. REVIEW OF SYSTEMS: No headache. No rhinitis. Mild cough. . No chest pain. No more vomiting. Ileostomy draining watery stool. No abdominal pain. No dysuria. No leg pain or leg swelling. PHYSICAL EXAMINATION: GENERAL: Lying in the bed, no acute distress. VITAL SIGNS: Temperature is 98, heart rate 75, respiratory rate is 20, blood pressure , pulse ox 99% on nasal cannula. HEENT: Moist mucous membrane. Crowded airway. NECK: Supple. No JVD. LUNGS: Have fair airflow, with rhonchi. HEART: S1 and S2. ABDOMEN: Positive bowel sounds, soft. Ileostomy bag draining well. EXTREMITIES: There is no edema. NEUROLOGIC: Awake and alert, follows simple commands. LABORATORY DATA: Shows hemoglobin 8.6, hematocrit 27.2, WBC 7.7, platelet is 167. INR 2.92. VBG showed pH 7.28, pCO2 of 47, O2 is 81. Sodium 141, potassium 4.0, chloride 109, bicarbonate 22, BUN 49, creatinine 2.9, glucose 141, calcium is 8.9, iron is 19. Influenza A and B have been negative. Blood culture and urine cultures, there is no growth. Had a CAT scan of the abdomen and pelvis done on admission, which shows bilateral pleural effusion, mild small bowel dilatation, ileus or early obstruction. IMPRESSION AND PLAN: Cardiomyopathy, milrinone dependent, pulmonary hypertension, atrial fibrillation, history of lung cancer, been on radiation therapy, pneumonitis, anemia, gastroesophageal reflux disease, history of hemicolectomy, ileostomy. He is edentulous. Case discussed with GI doctor, Dr. Ordonez. I also spoke with the patient's in detail. When this incident happened with vomiting and coffee-ground, patient was eating chicken according to Dr. Ordonez. The patient has no teeth, cannot chew, and then does have a obstruction in the intestine secondary to unable to grind the food. The patient should be on pureed diet, keep head elevated at 45 degrees. I will continue nebulizer treatment. Continue supplement iron. Continue milrinone. Follow up labs in the morning. Thank you and we will follow with you. Arabella Alva MD
--- NOTE | 2017-08-29 08:46 | PN ---
DATE: 08/28/2017 REASON FOR CONSULTATION AND FOLLOWUP: Cardiomyopathy, coronary artery disease, status post PTCA, cardiac evaluation. SUBJECTIVE: The patient denies any chest pain, but complaining of abdominal pain. present at the bedside. No chest pain. OBJECTIVE: GENERAL: Not in apparent distress. VITAL SIGNS: Temperature afebrile, heart rate 81, blood pressure 109/75. HEENT: PERRLA. Extraocular muscles intact. NECK: Supple. No carotid bruit or thyromegaly. CHEST: Clear to auscultation. HEART: S1, S2 regular. ABDOMEN: Soft. EXTREMITIES: Clubbing and cyanosis negative. LABORATORY DATA: Blood workup as follows: WBC 10.9, hemoglobin 10.2, hematocrit 32.2, platelet count 228. Chemistry shows sodium 141, potassium 4, chloride 109, carbon dioxide , anion gap of 14, BUN , creatinine 2.9. IMPRESSION: Chronic renal insufficiency, colostomy, history of coronary artery disease, cardiomyopathy, percutaneous transluminal coronary angioplasty of left anterior descending, status post automatic implantable cardioverter-defibrillator, history of paroxysmal atrial fibrillation, history of gastrointestinal bleed, status post recently multiple transfusions because of gastrointestinal bleed, history of abdominal aortic aneurysm, endovascular stent, ischemic cardiomyopathy, rule out small bowel obstruction. RECOMMENDATIONS: We will resume back IV , milrinone, continue Coreg, monitor I's and O's. Patient is not making urine patient's critical long-term prognosis is guarded. We will follow with you. Thank you, Dr. Palacios, for providing us the opportunity in taking care of the patient, [place]. Arabella Mathews MD
[2017-08-29] MEDS: Lactobacillus Acidophilus 500 MU Cap PO SCH ×2 (10:44→17:55)
[2017-08-29] MEDS: Nystatin 100,000 Units/gm Cream(15 gm) TOP SCH ×3 (10:46→18:00)
[2017-08-29] MEDS: Insulin Detemir 100 units/ml Vial (Levemir) SC SCH ×2 (10:46→21:37)
[2017-08-29] MEDS: Magnesium Oxide 400 mg Tab UD PO SCH ×2 (10:46→17:55)
--- NOTE | 2017-08-29 18:25 | PN ---
DATE: 08/29/2017 SUBJECTIVE: The patient is seen, lying in bed. The is at his bedside. He is arousable. PHYSICAL EXAMINATION: GENERAL: Elderly male, lying in bed. VITAL SIGNS: Blood pressure 128/82, heart rate 100, respiratory rate 20, and temperature 97.6. HEENT: Normocephalic, atraumatic. NECK: Supple, no JVD. LUNGS: Bilateral equal entry, no rales. CARDIAC: S1, S2, regular rate and rhythm, no murmur, no rub. ABDOMEN: Obese, distended, soft, nontender, bowel sounds present. EXTREMITIES: No lower extremity edema. INTAKE AND OUTPUT: 700/700 LABORATORY DATA: WBC 4.8, hemoglobin 8.4, hematocrit 27, and platelets 170. Sodium 138, potassium 4.0, chloride 108, CO2 of 22. BUN 42, creatinine 2.9. Glucose 110. Calcium 8.8, phosphorus 4.0, magnesium 1.7. Iron saturation 8, iron 19. Blood culture no growth. Urine culture no growth. CURRENT MEDICATIONS: Coreg 25 b.i.d., Ecotrin 81, Flomax, insulin, Lasix 40 p.o. daily Levemir, mag oxide, Pepcid, PhosLo, milrinone, Proscar, Protonix, Rocaltrol, sodium bicarbonate, normal saline not given, Xanax. ASSESSMENT: 1. Advanced chronic kidney disease stage 4. 2. Noninsulin-dependent diabetes mellitus. 3. Hypertension. 4. Coronary artery disease/cardiomyopathy/decreased ejection fraction. 5. Peripheral vascular disease. 6. Anemia of chronic kidney disease. PLAN: 1. No indication for IV fluids, patient appears to be euvolemic to hypervolemic. 2. Continue inotropic support. 3. Continue low-dose Lasix. 4. GI followup. 5. Monitor fingerstick. 6. Continue current antihypertensives. Kaylen Crump MD
--- NOTE | 2017-08-29 19:53 | PN ---
DATE: 08/29/2017 REASON FOR CONSULTATION AND FOLLOWUP: Cardiomyopathy, coronary artery disease, cardiac evaluation. SUBJECTIVE: Patient is very weak, lethargic, sleeping. Denies any chest pain, shortness of breath, any palpitation . Patient's is at the bedside. OBJECTIVE: GENERAL: Not in apparent distress. VITAL SIGNS: Temperature afebrile, heart rate 100, blood pressure 122/82. HEENT: PERRLA. Extraocular muscles intact. NECK: Supple. No carotid bruit or thyromegaly. CHEST: Clear to auscultation. HEART: S1, S2 regular. ABDOMEN: Soft. EXTREMITIES: Clubbing and cyanosis negative. LABORATORY DATA: Blood workup as follows: WBC 4.8, hemoglobin 8.4, hematocrit 26.9, platelet count 170. Chemistry shows sodium 130, potassium 4, chloride 108, carbon dioxide 22, anion gap of 12, BUN 42, creatinine 2.9. IMPRESSION: Chronic renal insufficiency; cardiomyopathy, ischemic, on Primacor; history of coronary artery disease, status post percutaneous transluminal coronary angioplasty; paroxysmal atrial fibrillation; gastrointestinal bleed; history of colostomy; history of endovascular repair of the aorta; abdominal aortic aneurysm, status post endovascular aneurysm repair; status post colostomy; anemia, status post red blood cells transfusion; [id number] renal insufficiency; history of urinary tract infection, recurrent. RECOMMENDATIONS: Continue Primacor. Ejection fraction is low. Monitor H&H. Continue beta-yimi. Overall, patient's condition is critical. Long-term prognosis is guarded. IV fluid is started. Monitor renal function and heart failure closely. We will follow with you. Thank you Dr. Palacios for providing us the opportunity in taking care of the patient, [place]. We will repeat the blood workup in the morning. Increase nutritional support. We will put some supplement for Ensure Pudding because of protein-calorie malnutrition, which is moderate, which was not present on admission. Arabella Mathews MD
--- NOTE | 2017-08-29 21:25 | PN ---
DATE: 08/29/2017 SUBJECTIVE: This patient was seen and evaluated in the ER today. The patient appears more comfortable. Tolerating the diet. PHYSICAL EXAMINATION: VITAL SIGNS: Temperature is 97.6, pulse 100, blood pressure is 128/82. HEENT: Atraumatic, anicteric. NECK: Supple. HEART: S1 and S2 heard. LUNGS: Bilateral air entry present. ABDOMEN: Soft. There is brown stool present in the ileostomy tube. EXTREMITIES: No cyanosis. No clubbing. LABORATORY DATA: Hemoglobin 8.4, hematocrit 26.9, WBC 4.6, platelets 170. BUN 42, creatinine 2.9. IMPRESSION: This 72-year-old patient admitting with vomiting, had a dark stool in the ileostomy bag, but no further episodes of dark stool now. The ileostomy has brown stool. There is mild drop in blood count noticed. The patient had an endoscopy done during the last admission and did not show any upper gastrointestinal source of blood loss. The patient did have a history of small ileal ulcerations in the past. On Coumadin. Status post endovascular repair done complicated by endoleak and subtotal colectomy and the patient has an ileostomy now. The patient is on warfarin. The patient has poor dentition. Advised to take only soft diet or pureed food. We will advance the diet and we will follow up with the hemoglobin and hematocrit. Thank you very much for allowing us to participate in the care of the patient. Kassy Ordonez MD [facility]
--- NOTE | 2017-08-30 00:34 | PN ---
DATE: 08/29/2017 PULMONARY PROGRESS NOTE REFERRING PHYSICIAN: Dr. Palacios. SUBJECTIVE: He is lying in the bed, sleepy, arousable. is at bedside. Cough is okay. No nausea, no vomiting, no diarrhea. No more dark stool in the ileostomy. No leg pain, no leg swelling. OBJECTIVE: GENERAL: In no acute distress. VITAL SIGNS: Temperature 98, heart rate is 90, respiratory rate is 20, blood pressure 122/87, pulse oximetry 99% on nasal cannula. HEENT: Moist mucous membranes. Crowded airway. NECK: Supple. No JVD. LUNGS: Have a few scattered rhonchi with a fair airflow. HEART: S1 and S2. ABDOMEN: Soft, nontender. No organomegaly. Ileostomy draining watery stool. EXTREMITIES: There is no edema. NEUROLOGIC: Awake, alert. Follows simple command. MEDICATIONS: He is on lactobacillus one capsule twice a day, Coreg 25 mg twice a day, DuoNeb q.i.d., Ecotrin 81 mg daily, Flomax 0.4 mg daily, insulin coverage, Lasix 40 mg daily, Levemir 10 units subcu q. 12 hours, magnesium oxide 400 mg twice a day, nystatin in the affected area three times a day, Pepcid 40 mg daily, PhosLo 667 with meals, on IV Primacor, Proscar 5 mg daily, Protonix 40 mg daily, sodium bicarbonate 650 mg daily, IV fluid normal saline 60 mL per hour, Xanax 0.25 mg daily. LABORATORY DATA: Shows hemoglobin 8.4, hematocrit 26.9, WBC 4.8, platelet count is 170. INR is 2.92. Sodium 138, potassium 4.0, chloride 108, bicarbonate 22, BUN 42, creatinine 2.9, glucose 159, calcium is 8.8, phosphorus 4.0, magnesium 1.7, iron is 19. Total bilirubin 0.6, AST 24, ALT 25, alkaline phosphatase is 69, albumin is 2.7. Microbiology: Blood culture and urine culture, there is no growth. IMPRESSION AND PLAN: Cardiomyopathy, milrinone dependent, pulmonary hypertension, atrial fibrillation, history of lung cancer with no radiation therapy, pneumonitis, anemia, gastroesophageal reflux disease, history of hemicolectomy, ileostomy; gastrointestinal bleed, which is resolved. Pulmonary point of view, doing okay. Keep head at 45 degree, bronchodilators, aspiration precaution, sleep apnea precaution, refused to use CPAP/BiPAP. Oncology followup. Continue to supplement iron. Spoke to the patient's at bedside. All the questions answered. Thank you and we will follow with you. Arabella Alva MD
[2017-08-30] MEDS ORDERED: Albuterol-Ipratrop 3 mg / 0.5 (3 ml) UD IH STA (02:15)
[2017-08-30 05:48] LABS: EOS # 0.1 (0.0-0.7); EOS % 0.7 % (1.5-5.0); GRAN # 7.99 (1.4-6.5); HEMOGLOBIN 9.2 g/dL (14.0-18.0); LYMPH # 0.4 (1.2-3.4); LYMPH % 4.2 % (22.0-35.0); MEAN CELL VOLUME 82.5 fl (80.0-105.0); MEAN CORPUSCULAR HEMOGLOBIN 25.9 pg (25.0-35.0); MEAN CORPUSCULAR HGB CONC 31.4 g/dl (31.0-37.0); MEAN PLATELET VOLUME 9.8 fl (7.0-11.0); MONO # 0.4 (0.1-0.6); MONO % 4.1 % (1.0-6.0); PLATELET COUNT 218 10^3/uL (120.0-450.0); RBC 3.55 10^6/uL (3.5-6.1); RED CELL DISTRIBUTION WIDTH 17.9 % (11.5-14.5); WHITE BLOOD COUNT 8.8 10^3/ul (4.5-11.0)
[2017-08-30] MEDS: Albuterol-Ipratrop 3 mg / 0.5 (3 ml) UD IH SCH ×4 (06:34→20:43)
[2017-08-30 07:16] LABS: ALBUMIN 3.2 g/dL (3.0-4.8); CALCIUM 9.5 mg/dL (8.4-10.5); MAGNESIUM 1.7 mg/dL (1.7-2.2)
[2017-08-30] MEDS: Insulin Lispro 1 UNITS/0.01 ML SC SCH ×3 (07:30→18:31)
[2017-08-30 07:41] LABS: LYMPHOCYTE 7 % (22.0-35.0); MONOCYTE 4 % (1.0-6.0); NEUTROPHIL 89 % (50.0-70.0)
[2017-08-30 07:42] LABS: POIKILOCYTOSIS SLIGHT
[2017-08-30 07:43] LABS: BURR CELLS SLIGHT
--- NOTE | 2017-08-30 08:59 | PN ---
DATE: 08/29/2017 SUBJECTIVE: The patient is comfortable, in no distress, feeling better, wants to go home. No other complaints. His hemoglobin is seemed stable. Seen by Gastroenterology. PHYSICAL EXAMINATION: VITAL SIGNS: His vital signs are as follows. Temperature is 97.4, heart rate 89, blood pressure 131/75, respiration 20, saturation 98% on nasal cannula 2 L. HEAD AND NECK: Normal. No JVD. No thyromegaly. CHEST: Clear bilateral. CARDIAC: First sound and second sound normal. Systolic murmur III/. ABDOMEN: Soft, nontender. There is ileostomy site, seems clean. No black stools coming. Bowel sounds intact. EXTREMITIES: No edema. NEUROLOGIC: Left side weakness. The patient is bedridden and wheelchair bound. LABORATORY DATA: His laboratory study is as follows. White count 4.8, hemoglobin 8.4, hematocrit 26.9, platelets 170. His chemistry shows sodium 138, potassium 4, chloride 108, bicarb 22, BUN 42, creatinine 2.9. Liver function test is normal. Phosphorus is 4, calcium 8.8, magnesium 1.7. IMPRESSION AND PLAN: 1. The patient has acute drop of his hemoglobin, anemia, iron deficiency, probably secondary to gastrointestinal etiology; however, the patient does not seem to have any melena. He has had endoscopy last admission, it was negative. The patient is high risk for any other procedures including colonoscopy. At this time, we will monitor his H and H, repeat H and H in the morning. If his hemoglobin is stable, we will discharge the patient home to be followed as outpatient. 2. Chronic renal failure, stable. His creatinine runs between 2 and 3. He follows up with a application spec. 3. Coronary artery disease, stable ischemic cardiomyopathy, congestive heart failure. Continue IV milrinone. Continue Coreg 25 b.i.d. The patient has no chest pain. 4. History of chronic obstructive pulmonary disease, stable. Lung cancer, treated by radiation, seems stable at this time. Continue inhaled bronchodilators. We will continue as outpatient. 5. Congestive heart failure. Continue Lasix, milrinone. 6. Diabetes. Continue Levemir and insulin coverage as before. 7. Anxiety. We will continue give him Xanax p.r.n. 0.25 mg once a day. CURRENT MEDICATIONS: He is getting Lactobacillus, Coreg 25 b.i.d., DuoNeb, aspirin 81, Flomax 0.4, Humalog 5 units before meals, Lasix 40 p.o. daily, Levemir 10 units b.i.d., mag oxide b.i.d., Mycostatin cream to the groin area, Pepcid 40 mg daily, PhosLo three times a day with meals, Primacor, Proscar 5 mg, Protonix 40 once a day, Rocaltrol, calcium and vitamin D 0.25 mcg p.o. on Tuesday, Tuesday and Tuesday, sodium bicarb once a day, Xanax 0.25 mg p.o. daily p.r.n. Continue current therapy. Plan repeat CBC. If stable, we will discharge home to be followed up as outpatient. Dexter Palacios MD
[2017-08-30] MEDS: Insulin Detemir 100 units/ml Vial (Levemir) SC SCH ×2 (10:44→21:56)
[2017-08-30] MEDS: Lactobacillus Acidophilus 500 MU Cap PO SCH ×3 (10:52→18:31)
[2017-08-30] MEDS: Magnesium Oxide 400 mg Tab UD PO SCH ×3 (10:53→20:46)
[2017-08-30] MEDS: Nystatin 100,000 Units/gm Cream(15 gm) TOP SCH ×4 (10:57→21:57)
[2017-08-30] MEDS: Milrinone 20mg/100ml D5W 100 ML IV PRN (13:38)
--- NOTE | 2017-08-30 14:02 | CP.PCM.PN ---
<Briana Dixon - Last Filed: 08/30/17 14:00> Subjective - Date & Time of Evaluation Date of Evaluation: 08/30/17 Time of Evaluation: 11:00 - Subjective Subjective: S&E at bedside, chart reviewed, patient denies N/V or abdominal pain. Tolerated breakfast, no overnight events reported. Ileostomy with little brown stool and air. Objective - Vital Signs/Intake and Output Vital Signs (last 24 hours): Temp Pulse Resp BP Pulse Ox 98.0 F 115 H 20 132/59 L 97 08/30/17 00:01 08/30/17 06:00 08/30/17 00:01 08/30/17 10:52 08/30/17 00:01 Intake and Output: 08/30/17 08/30/17 06:59 18:59 Intake Total 186 100 Output Total 525 Balance -339 100 - Medications Medications: Current Medications Albuterol/Ipratropium (Duoneb 3 Mg/0.5 Mg (3 Ml) Ud) 3 ml IH QIDRESP [facility] Last Admin: 08/30/17 11:29 Dose: 3 ml Alprazolam (Xanax) 0.25 mg PO DAILY PRN; Protocol PRN Reason: Anxiety Stop: 09/04/17 17:46 Last Admin: 08/28/17 18:57 Dose: 0.25 mg Aspirin (Ecotrin) 81 mg PO DAILY [facility] Last Admin: 08/30/17 10:52 Dose: 81 mg Calcitriol (Rocaltrol) 0.25 mcg PO MWF [facility] Last Admin: 08/29/17 10:47 Dose: 0.25 mcg Calcium Acetate (Phoslo) 667 mg PO WM [facility] Last Admin: 08/30/17 11:00 Dose: 667 mg Carvedilol (Coreg) 25 mg PO BID [facility] Last Admin: 08/30/17 10:52 Dose: 25 mg Famotidine (Pepcid) 40 mg PO HS [facility] Last Admin: 08/29/17 21:40 Dose: 40 mg Finasteride (Proscar) 5 mg PO DAILY [facility] Last Admin: 08/30/17 10:54 Dose: 5 mg Furosemide (Lasix) 40 mg PO DAILY [facility] Last Admin: 08/30/17 10:52 Dose: 40 mg Milrinone Lactate/Dextrose (Primacor 20mg/100ml D5w) 100 mls @ 7.226 mls/hr IV .[id number] PRN; Protocol; 0.3 MCG/KG/MIN PRN Reason: TITRATE PER MD ORDER Last Admin: 08/30/17 13:38 Dose: 0.3 mcg/kg/min, 7.226 mls/hr Insulin Detemir (Levemir) 10 unit SC Q12 [facility] Last Admin: 08/30/17 10:44 Dose: Not Given Insulin Human Lispro (Humalog) 5 units SC AC [facility] Last Admin: 08/30/17 11:30 Dose: Not Given Lactobacillus Acidophilus (Bacid Acidophilus) 1 cap PO BID [facility] Last Admin: 08/30/17 10:52 Dose: 1 cap Magnesium Oxide (Mag-Ox) 400 mg PO BID [facility] Last Admin: 08/30/17 10:53 Dose: 400 mg Nystatin (Mycostatin Cream) 0 ea TOP TID [facility] Last Admin: 08/30/17 13:37 Dose: 1 cre Pantoprazole Sodium (Protonix Inj) 40 mg IVP DAILY [facility] Last Admin: 08/30/17 10:51 Dose: 40 mg Sodium Bicarbonate (Sodium Bicarbonate Tab) 650 mg PO DAILY [facility] Last Admin: 08/30/17 10:52 Dose: 650 mg Tamsulosin HCl (Flomax) 0.4 mg PO DAILY [facility] Last Admin: 08/30/17 10:53 Dose: 0.4 mg - Labs Labs: 08/30/17 05:35 08/30/17 05:35 PT 34.1 SECONDS (9.4-12.5) H 08/29/17 06:00 INR 2.90 (0.93-1.08) H 08/29/17 06:00 APTT 39.7 Seconds (25.1-36.5) H 08/26/17 20:10 - Constitutional Appears: No Acute Distress - Eye Exam Eye Exam: Normal appearance. absent: Scleral icterus - ENT Exam ENT Exam: Mucous Membranes Moist - Respiratory Exam Respiratory Exam: NORMAL BREATHING PATTERN. absent: Respiratory Distress - Cardiovascular Exam Cardiovascular Exam: +S1, +S2 - GI/Abdominal Exam GI & Abdominal Exam: Soft, Normal Bowel Sounds. absent: Guarding, Tenderness, Rebound Additional comments: (+) ileostomy. brown stool, (+) air - Extremities Exam Extremities Exam: absent: Calf Tenderness - Neurological Exam Neurological Exam: Alert, Awake - Skin Skin Exam: Dry, Warm Assessment and Plan - Assessment and Plan (Free Text) Assessment: ASSESSMENT: Anemia, recent EGD no evidence of bleeding H/O Ileal ulcer S/P N/V/abdominal pain H/O endovascular repair w/ endoleak s/p subtotal colectomy CRF CHF, on Milrone drip PLAN: monitor H/H. stedy Primoacore drip contineu GI prophylaxsis Diet as tolerated on Plavix/Aspirin on Probiotic Seen and discussed w/ Dr. Ordonez. <Kassy Ordonez V - Last Filed: 08/31/17 00:01> Objective - Vital Signs/Intake and Output Vital Signs (last 24 hours): Temp Pulse Resp BP Pulse Ox 97.7 F 106 H 20 119/77 97 08/30/17 18:00 08/30/17 18:00 08/30/17 18:00 08/30/17 18:00 08/30/17 18:00 Intake and Output: 08/30/17 08/31/17 18:59 06:59 Intake Total 100 540 Balance 100 540 - Labs Labs: 08/30/17 05:35 08/30/17 05:35 PT 34.1 SECONDS (9.4-12.5) H 08/29/17 06:00 INR 2.90 (0.93-1.08) H 08/29/17 06:00 APTT 39.7 Seconds (25.1-36.5) H 08/26/17 20:10 Attending/Attestation - Attestation I have personally seen and examined this patient.: Yes I have fully participated in the care of the patient.: Yes I have reviewed all pertinent clinical information, including history, physical exam and plan: Yes Notes (Text): This is an addendum to GI progress report dictated by Briana Dixon APN.The patient was seen and examined earlier. Medical records, lab studies, imagings were reviewed. Last 24 hours events reviewed. Agreed with the above treatment plan as outlined in Briana Dixon APN's notes the with the addition of the following 08/31/17 00:01
--- NOTE | 2017-08-30 17:42 | PN ---
DATE: 08/30/2017 REASON FOR CONSULTATION AND FOLLOWUP: Cardiomyopathy, coronary artery disease, and cardiac evaluation. SUBJECTIVE: The patient denies any chest pain, shortness of breath, or any palpitations. OBJECTIVE: GENERAL: Not in apparent distress, feels a lot better. VITAL SIGNS: Temperature afebrile, heart rate 89, and blood pressure 129/81. HEENT: PERRLA, intact. NECK: Supple. No carotid bruit or thyromegaly. CHEST: Clear to auscultation. HEART: S1 and S2, regular. ABDOMEN: Soft. EXTREMITIES: Clubbing and cyanosis negative. LABORATORY DATA: Blood workup as follows: WBC 8.8, hemoglobin 9.8, hematocrit 29.3, platelet count 218. Chemistry shows sodium 140, potassium 4.0, chloride 108, carbon dioxide 22, anion gap of 14. BUN 39, creatinine 2.9. IMPRESSION: Chronic renal insufficiency; stage 3 to 4 chronic kidney disease; cardiomyopathy, ischemic, status post percutaneous transluminal coronary angioplasty, status post stent, status post automatic implantable cardioverter-defibrillator; status post colostomy; status post endovascular stent; lung cancer. RECOMMENDATIONS: Continue supportive care. Continue Primacor. Patient is on Primacor at home. Continue Coreg. Continue albuterol. Continue gentle diuretics. Overall, patient's condition is critical. Long-term prognosis is extremely poor. We will follow with you. Thank you Dr. Palacios for providing us the opportunity in taking care of the patient, [place]. Arabella Mathews MD
[2017-08-30 18:39] VITALS: BP 119/77; PULSE 106; RESP 20; TEMP 97.7; O2SAT 97
--- NOTE | 2017-08-30 19:03 | PN ---
DATE: SUBJECTIVE: The patient is currently seen, being fed by his . He is slated for possible discharge later today. IV fluids have been discontinued. His ileus and partial small bowel obstruction have clinically improved. The patient's hemoglobin had improved to 9.2 and no transfusions were necessary. MEDICATIONS: Medication list reviewed. The patient is currently on acidophilus, Coreg, DuoNeb, Ecotrin, Flomax, Humalog, p.o. Lasix, Levemir, mag oxide, Mycostatin, Pepcid, PhosLo, Primacor infusion, Proscar, Protonix, calcitriol, oral sodium bicarbonate, and Xanax. OBJECTIVE: INTAKE/OUTPUT: Intake 886, output 1225. VITAL SIGNS: Blood pressure 132/59, respiratory rate 20, pulse 115, temperature 98.0. HEENT: Shows him to be normocephalic, atraumatic. Conjunctivae are pale. Sclerae nonicteric. NECK: Supple. No neck vein distention or thyromegaly. No lymphadenopathy. CHEST: Clear to auscultation and percussion with slight decreased breath sounds at the bases. No rales, no rhonchi, no wheezing. CARDIOVASCULAR: Shows an irregular S1, S2 without audible murmurs. Positive AICD, positive permanent pacemaker. No S3, no S4, no rub. ABDOMEN: Soft. Bowel sounds are improved. Ileostomy appears intact. No rebound, no guarding, no abdominal distention. EXTREMITIES: Show no cyanosis, no clubbing or edema. Distal lower extremity pulses are 1 to 2+ bilaterally. LABORATORY DATA AND IMAGING: CBC: White blood cell count 8.8, hemoglobin 9.2, and platelet count is 218,000. Chemistries today show sodium 140, potassium 4.3, chloride 108 with a CO2 of 22. BUN 39 with a creatinine of 2.9. Glucose is 111. Calcium 9.5, phosphorus 4.4, magnesium 1.7. ASSESSMENT: 1. Acute renal failure, superimposed on chronic kidney disease stage 4. The patient is back to baseline levels. IV fluids have been discontinued. The patient continues on oral Lasix therapy on ionotropic support for his significant cardiomyopathy. 2. History of noninsulin-dependent diabetes mellitus. Patient currently remains on sliding scale insulin and long-acting insulin. 3. History of hypertension. Blood pressure controlled on present cardiac medications. 4. History of atherosclerotic heart disease, status post coronary artery bypass graft, history of congestive heart failure, history of cardiomyopathy with ejection fraction of 15%. Patient has an AICD and permanent pacemaker. He will remain on Primacor therapy in the outpatient setting. He has a PICC line in the right upper extremity. 5. History of peripheral vascular disease with aortic abdominal aneurysm, status post repair, currently stable. 6. History of metabolic acidosis with a CO2 level of 22. 7. History of anemia. Patient had initial drop in his hemoglobin secondary to IV fluid hydration. With discontinuation of IV fluids, his hemoglobin is stabilized back to 9.2. Patient may continue on Aranesp therapy on an as-needed basis along with oral iron supplements. 8. History of benign prostatic hypertrophy, currently stable. 9. History of mild hyperlipidemia, currently stable. PLAN: 1. Discussed with patient's and staff on 3R. Patient will likely be discharged home later today. As his renal parameters are at baseline levels and he is set for outpatient Primacor therapy as per the regimen, he had been on in the outpatient setting prior to the admission. 2. Continue to monitor labs periodically in the outpatient setting. 3. We may follow up with patient on an as-needed basis in the hospital. Should he return on the outpatient setting, should his BUN and creatinine worsen. Mio Stoddard MD
--- NOTE | 2017-08-31 02:25 | PN ---
DATE: PULMONARY PROGRESS NOTE REFERRING PHYSICIAN: Dexter Palacios MD SUBJECTIVE: He is lying in the bed, sleepy, arousable. Cough is better. No vomiting today. No abdominal pain or dysuria. No leg pain or no leg swelling. OBJECTIVE: GENERAL: In no acute distress. VITAL SIGNS: Temperature 98, heart rate 106, respiratory rate is 20, blood pressure 119/77, pulse oximetry 97% on 2 liter nasal cannula. HEENT: Moist mucous membranes. No ulcer or thrush noted. NECK: Supple. No JVD. LUNGS: Has fair airflow with scattered rhonchi. HEART: S1 and S2. ABDOMEN: Soft, nontender. Ileostomy bag draining well. EXTREMITIES: There is no edema. NEUROLOGIC: Sleepy, arousable, follows simple command. MEDICATIONS: He is on lactobacillus one capsule twice a day, Coreg 25 mg twice a day, albuterol Atrovent nebulizer four times daily, Ecotrin 81 mg daily, Flomax 0.4 mg daily, insulin coverage, Lasix 40 mg daily, Levemir 10 units subcu q. 12 hours, magnesium oxide 400 mg twice a day, nystatin in the affected area three times a day, Pepcid 40 mg at bed time, PhosLo 667 with meals, Primacor is IV drip, Proscar 5 mg daily, Protonix 40 mg daily; calcitriol 0.25 mcg Tuesday, Tuesday, Tuesday; sodium bicarbonate 650 mg daily, Xanax 0.25 mg daily and p.r.n. LABORATORY DATA: Shows hemoglobin 9.2, hematocrit 29.3, WBC 8.8, platelet count is 218. INR is 2.90. Sodium 140, potassium 4.3, chloride 108, bicarbonate 22, BUN 39, creatinine 2.9, glucose 111, calcium is 9.5, phosphorus 4.4, magnesium 1.7, AST 23, ALT 28, alkaline phosphatase is 83, albumin is 3.2. Microbiology: Blood culture and urine culture, both unremarkable. IMPRESSION AND PLAN: Cardiomyopathy, milrinone dependent, pulmonary hypertension, atrial fibrillation, history of lung cancer, status post radiation therapy, pneumonitis, anemia, gastroesophageal reflux disease, history of hemicolectomy, ileostomy, recurrent gastrointestinal bleed, recurrent small bowel obstruction. I spoke to the patient's at bedside. All the questions answered. He needs to be on pureed diet, cannot eat solid food, he is edentulous, and on top of it, has bowel resection, so end up with ileus. Keep head elevated at 45 degrees. Sleep apnea precautions. Avoid sedation. Follow up . Thank you and we will follow with you. Arabella Alva MD
--- NOTE | 2017-09-01 08:12 | DS ---
HISTORY OF PRESENT ILLNESS: The patient was admitted for possibility of black stool in the ileostomy. The patient had endoscopy before which was negative; seen by GI, Dr. Ordonez. The patient was stable hemodynamically. He did have Xanax because of agitations. The patient is currently stable. He did vomit one time, but after that he has tolerated liquid diet very well and he was doing well and he wants to go home. The patient had urine culture that had been sent and Cipro was given as an outpatient, to be followed up in the office. He did have urine culture on 08/27/2017, which shows no growth and blood cultures x2 which was negative. The patient was given Protonix, Pepcid also as an outpatient and here in the hospital and was advised to follow up as an outpatient. He seems stable. His hemoglobin is stable and will be discharged home. The patient had CT abdomen and pelvis, which did not show any active bleeding or retroperitoneal hematomas. The patient was seen by Dr. Ordonez and by Cardiology, Dr. Mathews and Nephrology, Dr. Mio Stoddard. He seems stable and also seen by Dr. Alva and the patient is stable to go home and will follow up in the office within a week. PHYSICAL EXAMINATION VITAL SIGNS: On discharge, stable. Temperature 97.7, heart rate 106. The patient is excited and agitated. Repeat blood pressure 119/77, respirations 20, saturations 97% on room air. HEAD AND NECK: Normal. No JVD. No thyromegaly. CHEST: Clear. CARDIAC: First and second heart sounds normal. Systolic murmur. ABDOMEN: Soft and nontender. EXTREMITIES: No edema. NEUROLOGIC: Left side weakness. The patient is wheelchair bound and bedridden. LABORATORY DATA: On discharge, his white count 8.8, hemoglobin 9.2, hematocrit 29.3, platelets 218,000. Chemistry: Sodium 140, potassium 4.3, chloride 108, bicarbonate 22, BUN 29, creatinine 2.9. Liver function test is normal. DISCHARGE DIAGNOSES 1. Anemia, etiology unclear. His repeat hemoglobin is stable. We will follow up that as an outpatient. Continue Pepcid at night and Protonix p.o.. in the morning. His hemoglobin is 9.2 at discharge. 2. Gastritis. Continue Protonix. 3. Chronic renal failure. 4. Chronic obstructive pulmonary disease. 5. Congestive heart failure. 6. Coronary artery disease. 7. Ischemic cardiomyopathy. 8. Cerebrovascular accident. 9. Ileostomy. 10. Abdominal aortic aneurysm. PLAN: To continue all medications. Hold aspirin for 4 to 5 days. Resume Coumadin 1 mg. Monitor peak INR. We will keep it low and we will monitor his H and H. The patient advised to follow up in the office within the next five days. We will see him on Tuesday and we will repeat the labs including PT/INR and CBC. The patient was given Cipro, urine culture to be followed as an outpatient. Protonix 40 mg, Zofran p.r.n. 4 mg q.8 and Pepcid at night. Dexter Palacios MD
== END 2017-08-30 22:54 | disposition home health service (06) | DRG 389 ==
LOC: ED 18:29 → ERH 08-27 00:38 → 3RSO 08-28 01:37 → OBSVTOIN 08-29 13:01
PROVIDERS: ADMIT Internal Medicine; ATTEND Internal Medicine
DX: K56.600 Partial intestinal obstruction, unspecified as to cause (principal); I13.0 Hypertensive heart and chronic kidney disease with heart failure and stage 1 through stage 4 chronic kidney disease, or unspecified chronic kidney disease; N18.4 Chronic kidney disease, stage 4 (severe); E44.0 Moderate protein-calorie malnutrition; N17.9 Acute kidney failure, unspecified; E87.2 Acidosis; I42.0 Dilated cardiomyopathy; K56.7 Ileus, unspecified; E11.51 Type 2 diabetes mellitus with diabetic peripheral angiopathy without gangrene; I27.20 Pulmonary hypertension, unspecified; E11.22 Type 2 diabetes mellitus with diabetic chronic kidney disease; I48.0 Paroxysmal atrial fibrillation; I48.2 Chronic atrial fibrillation; I25.5 Ischemic cardiomyopathy; I25.10 Atherosclerotic heart disease of native coronary artery without angina pectoris; Z95.5 Presence of coronary angioplasty implant and graft; Z95.810 Presence of automatic (implantable) cardiac defibrillator; K29.70 Gastritis, unspecified, without bleeding; I50.9 Heart failure, unspecified; N40.0 Benign prostatic hyperplasia without lower urinary tract symptoms; E78.5 Hyperlipidemia, unspecified; D63.1 Anemia in chronic kidney disease; K21.0 Gastro-esophageal reflux disease with esophagitis; J43.9 Emphysema, unspecified; F41.9 Anxiety disorder, unspecified; Z95.1 Presence of aortocoronary bypass graft; Z90.49 Acquired absence of other specified parts of digestive tract; Z86.73 Personal history of transient ischemic attack (TIA), and cerebral infarction without residual deficits; Z85.118 Personal history of other malignant neoplasm of bronchus and lung; Z93.2 Ileostomy status; Z79.01 Long term (current) use of anticoagulants; Z79.82 Long term (current) use of aspirin; Z79.4 Long term (current) use of insulin; Z68.28 Body mass index [BMI] 28.0-28.9, adult; Z92.3 Personal history of irradiation

== ENCOUNTER 2017-09-09 21:54 | Inpatient (IN) | payer MEDICARE, MEDICAID ==
[2017-09-09 21:54] VITALS: PULSE 95
[2017-09-09 22:07] VITALS: BMI 27.7
--- NOTE | 2017-09-09 22:40 | ED PDOC ---
Arrival/HPI - General Chief Complaint: Shortness Of Breath Time Seen by Provider: 09/09/17 22:09 Historian: Patient, Spouse - History of Present Illness Narrative History of Present Illness (Text): 09/09/17 22:35 This is a 72 yo male with a PMH of CHF, CAD, DMII with multiple admissions previously for similar complaints, is brought in by family for SOB and weakness since this morning. Patient's reports patient has a productive cough since this morning. denies fever, cp, vargas, dizziness, abdominal pain, n/v, sick contact, or CMS. Patient speaks well in Ma[place]. 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 Time/Duration: Other (see hpi) Context: Home Past Medical History - Provider Review Nursing Documentation Reviewed: Yes - Infectious Disease Hx of Infectious Diseases: None - Tetanus Immunization Tetanus Immunization: Unknown - Cardiac Hx Cardiac Disorders: Yes (dvt l upper extremity, mi) Hx Angina: Yes Hx Cardiac Arrhythmia: Yes Hx Congestive Heart Failure: Yes Hx Hypertension: Yes Hx Peripheral Edema: Yes (ble +1 edema) Hx Peripheral Vascular Disease: Yes Other/Comment: aaa repair complicated by endoteak, cardio aneurysm, weekly pt/ inr, ptca/stents x6. [facility] - Pulmonary Hx Asthma: Yes Hx Chronic Obstructive Pulmonary Disease (COPD): Yes Hx Emphysema: Yes Hx Pneumonia: Yes - Neurological Hx Neurological Disorder: Yes HX Cerebrovascular Accident: Yes Hx Dizziness: Yes Hx Seizures: Yes - HEENT Hx HEENT Disorder: Yes Hx Cataracts: Yes (b/l sx) Hx Deafness: Yes (left ear) - Renal Hx Renal Disorder: Yes - Endocrine/Metabolic Hx Diabetes Mellitus Type 2: Yes - Hematological/Oncological Hx Blood Disorders: Yes Hx Anemia: Yes Other/Comment: blood transfusions - Integumentary Hx Dermatological Disorder: Yes Other/Comment: multiple moles around neck, red raised b/l groin rash, pt unwilling to turn to assess back, multiple skin discolorations to both arms - Musculoskeletal/Rheumatological Hx Falls: No - Gastrointestinal Hx Gastrointestinal Disorders: Yes (r abd colostomy) Hx Gastroesophageal Reflux: Yes Other/Comment: colitis gi bleed hx black liquid stools from colostomy - Genitourinary/Gynecological Hx Genitourinary Disorders: Yes Hx Incontinence: Yes (and retention) Hx Prostate Problems: Yes (bph) Hx Urinary Tract Infection: Yes - Psychiatric Hx Depression: Yes Hx Substance Use: No - Surgical History Hx Cardiac Catheterization: Yes Hx Coronary Stent: Yes Hx Open Heart Surgery: Yes Hx Orthopedic Surgery: Yes Other/Comment: partial colectomy/colostomy, aicd 2012, prostate sx, r cw pac in and out infected, drew, picc line, hemorrhoidectomy - Anesthesia Hx Anesthesia: Yes - Suicidal Assessment Feels Threatened In Home Enviroment: No Family/Social History - Physician Review Nursing Documentation Reviewed: Yes Family/Social History: Other (noncontributory) Smoking Status: Former Smoker Hx Alcohol Use: No Hx Substance Use: No Hx Substance Use Treatment: No Allergies/Home Meds Allergies/Adverse Reactions: Allergies No Known Allergies Allergy (Verified 09/09/17 22:00) Home Medications: Home Meds Medication Instructions Recorded Confirmed Furosemide [Lasix] 40 mg PO DAILY 08/12/17 09/09/17 Pantoprazole Sodium [Protonix] 40 mg PO DAILY 08/12/17 09/09/17 Warfarin [Coumadin] 2 mg PO DAILY 08/12/17 09/09/17 Calcitriol 0.25 mg PO MWF 08/26/17 09/09/17 Calcium Acetate [Phoslo] 667 mg PO TID 08/26/17 09/09/17 Finasteride [Proscar] 5 mg PO DAILY 08/26/17 09/09/17 Atorvastatin [Lipitor] 10 mg PO DAILY 09/09/17 09/09/17 Ferrous Sulfate [Feosol] 325 mg PO BID 09/09/17 09/09/17 Multivitamin [Daily Jere] 1 tab PO DAILY 09/09/17 09/09/17 Sodium Bicarbonate Tab 650 mg PO TID 09/09/17 09/09/17 Review of Systems - Review of Systems Constitutional: Fatigue (chronic). absent: Weight Change, Fevers, Night Sweats Eyes: Normal. absent: Photophobia ENT: Normal. absent: Sore Throat, Rhinorrhea Respiratory: SOB, Cough, Sputum, Wheezing Cardiovascular: Normal. absent: Chest Pain, Palpitations Gastrointestinal: Normal. absent: Abdominal Pain, Nausea, Vomiting Genitourinary Male: Normal. absent: Hematuria Musculoskeletal: Normal. absent: Back Pain, Neck Pain, Myalgias Skin: Normal. absent: Rash Neurological: Normal. absent: Headache, Dizziness, Focal Weakness, Speech Changes, Facial Droop, Disequilibrium, Seizure Endocrine: Normal Hemo/Lymphatic: Normal Psychiatric: Normal Physical Exam Vital Signs Temp Pulse Resp BP Pulse Ox 09/10/17 00:06 117/87 09/09/17 22:13 98.2 F 110 H 16 132/89 97 Temperature: Afebrile Blood Pressure: Normal Pulse: Tachycardic Respiratory Rate: Normal Appearance: Positive for: Well-Appearing, Non-Toxic, Comfortable Pain Distress: None Mental Status: Positive for: Alert and Oriented X 3 - Systems Exam Head: Present: Atraumatic, Normocephalic Pupils: Present: PERRL Extroacular Muscles: Present: EOMI Conjunctiva: Present: Normal Mouth: Present: Moist Mucous Membranes Pharnyx: Present: Normal. No: ERYTHEMA, EXUDATE, TONSILS ENLARGED Neck: Present: Normal Range of Motion, Lymphadenopathy. No: Meningeal Signs Respiratory/Chest: Present: Good Air Exchange, Rhonchi (mild diffused). No: Respiratory Distress, Accessory Muscle Use, Wheezes, Decreased Breath Sounds, Rales, Retracting, Tachypneic Cardiovascular: Present: Regular Rate and Rhythm, Normal S1, S2. No: Murmurs Abdomen: Present: Normal Bowel Sounds. No: Tenderness, Distention, Peritoneal Signs, Rebound, Guarding Back: Present: Normal Inspection Upper Extremity: Present: Normal Inspection. No: Cyanosis, Edema Lower Extremity: Present: Normal Inspection. No: Edema Neurological: Present: GCS=15, CN II-XII Intact, Speech Normal Skin: Present: Warm, Dry, Normal Color. No: Rashes Psychiatric: Present: Alert, Oriented x 3, Normal Insight, Normal Concentration Medical Decision Making ED Course and Treatment: 09/10/17 00:[address] Palacios regarding patient complains of SOB. I reviewed labs, CXR, UA, VS. He agreed with plan for admission. He recommended BIPAP, consult with Dr. Reddy, and Dr. Alva. He also recommended Lasix 40 mg IVP daily. Re-evaluation Time: 00:25 Reassessment Condition: Re-examined, Improving,but remains with symptoms - Lab Interpretations Lab Results: 09/09/17 22:33 09/09/17 22:33 Lab Results 09/09/17 23:50: Urine Color Yellow, Urine Appearance Sl cloudy, Urine pH 6.0, Ur Specific [place] 1.020, Urine Protein 100 H, Urine Glucose (UA) Negative, Urine Ketones Negative, Urine Blood Small H, Urine Nitrate Negative, Urine Bilirubin Negative, Urine Urobilinogen 0.2, Ur Leukocyte Esterase Large H, Urine RBC 1 - 3, Urine WBC 25 - 30, Ur Epithelial Cells 0 - 2, Urine Bacteria Many 09/09/17 23:25: Influenza Typ A,B (EIA) Negative for flu a/b 09/09/17 22:33: Sodium 137, Potassium 4.2, Chloride 104, Carbon Dioxide 24, Anion Gap 13, BUN 44 H, Creatinine 2.9 H, Est GFR ( Amer) 26, Est GFR ( Non-Af Amer) 21, Random Glucose 173 H, Calcium 9.0, Total Bilirubin 0.5, AST 26 , ALT 32, Alkaline Phosphatase 113, Lactate Dehydrogenase 480, Total Creatine Kinase 45, Troponin I 0.03 D, NT-Pro-B Natriuret Pep 75004 H, Total Protein 6.3 , Albumin 3.0, Globulin 3.4, Albumin/Globulin Ratio 0.9 L 09/09/17 22:33: PT 23.5 H, INR 2.03 H, APTT 34.2 09/09/17 22:33: WBC 5.7 D, RBC 3.24 L, Hgb 8.3 L, Hct 26.3 L, MCV 81.2, MCH 25.6, MCHC 31.6, RDW 17.3 H, Plt Count 293, MPV 9.1, Gran % 77.0 H, Lymph % ( Auto) 10.9 L, [place] % (Auto) 8.2 H, Eos % (Auto) 3.7, Baso % (Auto) 0.2, Gran # 4.39, Lymph # (Auto) 0.6 L, [place] # (Auto) 0.5, Eos # (Auto) 0.2, Baso # (Auto) 0.01 I have reviewed the lab results: Yes Interpretation: Abnormal lab values - RAD Interpretation Narrative RAD Interpretations (Text): 09/09/17 23:14 Chest x-rays: Mild pul. congestion. No pleural effusion. Improved left lobe infiltrates Radiology Orders: 09/09/17 22:37 CHEST PORTABLE [RAD] Stat - EKG Interpretation Interpreted by ED Physician: Yes (Sinus tachycardia @ 110 bpm. Incomplets LBBB) Type: 12 lead EKG Comparison: Similar to previous EKG - Medication Orders Current Medication Orders: Milrinone Lactate/Dextrose (Primacor 20mg/100ml D5w) 100 mls @ 6.744 mls/hr IV .[id number] PRN; Protocol; 0.28 MCG/KG/MIN PRN Reason: TITRATE PER MD ORDER Cefepime HCl (Maxipime 1gm) 1 gm in 100 mls @ 100 mls/hr IVPB STAT STA PRN Reason: Protocol Stop: 09/10/17 01:14 Discontinued Medications Albuterol/Ipratropium (Duoneb 3 Mg/0.5 Mg (3 Ml) Ud) 3 ml IH STAT STA Stop: 09/09/17 23:12 Last Admin: 09/09/17 23:19 Dose: 3 ml Furosemide (Lasix) 40 mg IVP STAT STA Stop: 09/09/17 23:54 Last Admin: 09/10/17 00:06 Dose: 40 mg MAR Blood Pressure Document 09/10/17 00:06 [place] (Rec: 09/10/17 00:09 [email or web address]) Blood Pressure Blood Pressure (100/60-150/90) 117/87 IVP Administration Document 09/10/17 00:06 LA (Rec: 09/10/17 00:09 [email or web address] Charges for Administration # of IVP Administrations 1 Sodium Chloride (Sodium Chloride 0.9%) 500 mls @ 999 mls/hr IV .Q31M STA Stop: 09/10/17 00:23 Last Admin: 09/10/17 00:09 Dose: 999 mls/hr eMAR Start Stop Document 09/10/17 00:09 LA (Rec: 09/10/17 00:09 [email or web address]) Intravenous Solution Start Date 09/10/17 Start Time 00:09 Disposition/Present on Arrival - Present on Arrival Any Indicators Present on Arrival: No History of DVT/PE: No History of Uncontrolled Diabetes: No Urinary Catheter: No History of Decub. Ulcer: No History Surgical Site Infection Following: None - Disposition Have Diagnosis and Disposition been Completed?: Yes Diagnosis: Acute exacerbation of CHF (congestive heart failure), UTI (urinary tract infection) Disposition: HOSPITALIZED Disposition Time: 00:23 Patient Plan: Admission Patient Problems: Current Active Problems Problem Status Onset CHF exacerbation Acute UTI (urinary tract infection) Acute Condition: STABLE
[2017-09-09 23:11] LABS: BASO # 0.01 K/mm3 (0.0-2.0); BASO % 0.2 % (0.0-3.0); EOS # 0.2 (0.0-0.7); EOS % 3.7 % (1.5-5.0); GRAN # 4.39 (1.4-6.5); HEMOGLOBIN 8.3 g/dL (14.0-18.0); LYMPH # 0.6 (1.2-3.4); LYMPH % 10.9 % (22.0-35.0); MEAN CELL VOLUME 81.2 fl (80.0-105.0); MEAN CORPUSCULAR HEMOGLOBIN 25.6 pg (25.0-35.0); MEAN CORPUSCULAR HGB CONC 31.6 g/dl (31.0-37.0); MEAN PLATELET VOLUME 9.1 fl (7.0-11.0); MONO # 0.5 (0.1-0.6); MONO % 8.2 % (1.0-6.0); RBC 3.24 10^6/uL (3.5-6.1); RED CELL DISTRIBUTION WIDTH 17.3 % (11.5-14.5); WHITE BLOOD COUNT 5.7 10^3/ul (4.5-11.0)
[2017-09-09] MEDS ORDERED: Albuterol-Ipratrop 3 mg / 0.5 (3 ml) UD IH STA (23:11)
[2017-09-09 23:16] LABS: INR 2.03 (0.93-1.08); PARTIAL THROMBOPLASTIN TIME 34.2 Seconds (25.1-36.5); PROTHROMBIN TIME 23.5 SECONDS (9.4-12.5)
[2017-09-09 23:21] LABS: ALB/GLOB RATIO 0.9 (1.1-1.8)
[2017-09-09 23:31] LABS: TROPONIN I 0.03 ng/mL
[2017-09-09] MEDS ORDERED: Sodium Chloride 0.9% 500 ML IV STA (23:53)
[2017-09-10 00:06] LABS: URINE BILIRUBIN NEGATIVE (NEGATIVE); URINE BLOOD SMALL (NEGATIVE); URINE GLUCOSE (UA) NEGATIVE (NEGATIVE); URINE LEUKOCYTE ESTERASE LARGE Leu/uL (NEGATIVE); URINE NITRATE NEGATIVE (NEGATIVE); URINE PROTEIN 100 mg/dL (<30 mg/dL); URINE UROBILINOGEN 0.2 E.U./dL (<1 E.U./dL)
[2017-09-10 00:13] LABS: URINE APPEARANCE SL CLOUDY (CLEAR); URINE COLOR YELLOW (YELLOW)
[2017-09-10] MEDS ORDERED: Cefepime 1gm in NS 100ml 1 GM/100 ML BAG IVPB STA (00:15)
[2017-09-10 00:31] LABS: URINE EPITHELIAL CELLS 0 - 2 /hpf (0-5); URINE WBC 25 - 30 /hpf (0-6)
[2017-09-10 00:32] LABS: URINE BACTERIA MANY (NEG)
[2017-09-10] MEDS: Milrinone 20mg/100ml D5W 100 ML IV PRN ×2 (01:15→09:38)
--- NOTE | 2017-09-10 09:07 | RAD ---
HISTORY: Shortness of breath COMPARISON: 08/07/2017. FINDINGS: The right PICC line terminates in the distal subclavian vein. LUNGS: There is improving right lower lobe pneumonia and persistent consolidation in the left upper lobe. There is also a left retrocardiac opacity. PLEURA: Persistent small left pleural effusion, no pneumothorax apparent. CARDIOVASCULAR: Normal. OSSEOUS STRUCTURES: No significant abnormalities. VISUALIZED UPPER ABDOMEN: Normal. OTHER FINDINGS: None. IMPRESSION: Improving right lower lobe pneumonia. Persistent left upper lobe pneumonia. Suspect left lower lobe atelectasis/ pneumonia and small left pleural effusion.
[2017-09-10] MEDS ORDERED: Vancomycin 1gm in NS 250ml 1 GM/250 ML BAG IVPB STA (10:16)
[2017-09-10] MEDS: Magnesium Oxide 400 mg Tab UD PO SCH ×2 (10:42→17:30)
[2017-09-10] MEDS: Multivitamin Therapeutic Tab PO SCH (10:43)
[2017-09-10] MEDS: Meropenem 500 MG in Sodium Chloride 0.9% 100 ML IVPB SCH (10:55)
--- NOTE | 2017-09-10 12:11 | CP.PCM.CON ---
History of Present Illness - History of Present Illness History of Present Illness: 72 year old male with PMH of healthcare-associated pneumonia, Severe cardiomyopathy with EF 10-15 %, paroxysmal atrial fibrillation, Coronary artery disease S/P stenting, history of aortic aneurysm, history of SVT, S/P AICD placement, S/P procedure on his prostate in 2013, S/P partial colectomy and colostomy, history of ESBL E. coli bacteremia came in to was brought in to [facility] because of worsening shortness of breath and generalized weakness for several days. There is no note of fever, no vomiting, no diarrhea, no loss of consciousness, no convulsions. In the ED, CXR showed persistent consolidation in the left upper lobe with left retrocardiac opacity but improving right lower lobe opacity. Urinalysis also shows pyuria. Infectious diseases consult is requested to further evaluate and manage. Review of Systems - Review of Systems All systems: reviewed and no additional remarkable complaints except (as per HPI ) Past Patient History - Infectious Disease Hx of Infectious Diseases: None - Tetanus Immunizations Tetanus Immunization: Unknown - Past Medical History & Family History Past Medical History?: Yes - Past Social History Smoking Status: Former Smoker - CARDIAC Hx Cardia Arrhythmia: Yes Hx Congestive Heart Failure: Yes Hx Hypertension: Yes Hx Internal Defibrillator: Yes Hx Pacemaker: Yes Hx Peripheral Edema: Yes Hx Peripheral Vascular Disease: Yes - PULMONARY Hx Asthma: Yes Hx Chronic Obstructive Pulmonary Disease (COPD): Yes Hx Emphysema: Yes Hx Pneumonia: Yes - NEUROLOGICAL HX Cerebrovascular Accident: Yes Hx Seizures: Yes Hx Transient Ischemic Attacks (TIA): Yes - HEENT Hx HEENT Problems: Yes - RENAL Hx Renal Failure: Yes - ENDOCRINE/METABOLIC Hx Diabetes Mellitus Type 2: Yes - HEMATOLOGICAL/ONCOLOGICAL Hx Anemia: Yes - INTEGUMENTARY Hx Dermatological Problems: Yes Other/Comment: multiple moles around neck, red raised b/l groin rash, pt unwilling to turn to assess back, multiple skin discolorations to both arms - MUSCULOSKELETAL/RHEUMATOLOGICAL Hx Falls: No Hx Unsteady Gait: Yes - GASTROINTESTINAL Hx Colostomy: Yes (R abd colostomy) Hx Gastroesophageal Reflux: Yes Hx Ulcer: Yes - GENITOURINARY/GYNECOLOGICAL Hx Incontinence: Yes Hx Prostate Problems: Yes Hx Urinary Tract Infection: Yes - PSYCHIATRIC Hx Depression: Yes Hx Substance Use: No - SURGICAL HISTORY Hx Surgeries: Yes (AAA repair) Hx Cardiac Catheterization: Yes Hx Open Heart Surgery: Yes - ANESTHESIA Hx Anesthesia: Yes Meds Allergies/Adverse Reactions: Allergies Allergy/AdvReac Type Severity Reaction Status Date / Time No Known Allergies Allergy Verified 09/09/17 22:00 - Medications Medications: Current Medications Aspirin (Ecotrin) 81 mg PO DAILY [facility] Atorvastatin Calcium (Lipitor) 10 mg PO DAILY [facility] Calcitriol (Rocaltrol) 0.25 mcg PO MWF [facility] Calcium Acetate (Phoslo) 667 mg PO TID [facility] Carvedilol (Coreg) 25 mg PO BID [facility] Famotidine (Pepcid) 40 mg PO HS [facility] Ferrous Sulfate (Feosol) 324 mg PO BID [facility] Finasteride (Proscar) 5 mg PO DAILY [facility] Milrinone Lactate/Dextrose (Primacor 20mg/100ml D5w) 100 mls @ 6.744 mls/hr IV .[id number] PRN; Protocol; 0.28 MCG/KG/MIN PRN Reason: TITRATE PER MD ORDER Last Admin: 09/10/17 09:38 Dose: 0.28 mcg/kg/min, 6.744 mls/hr Magnesium Oxide (Mag-Ox) 400 mg PO BID [facility] Multivitamins (Thera Tab) 1 tab PO DAILY [facility] Sodium Bicarbonate (Sodium Bicarbonate Tab) 650 mg PO TID [facility] Tamsulosin HCl (Flomax) 0.4 mg PO DAILY [facility] Warfarin Sodium (Coumadin) 2 mg PO DAILY [facility] PRN Reason: Protocol Stop: 09/16/17 08:00 Physical Exam - Constitutional Appears: Chronically Ill, Other (weak-looking) - Head Exam Head Exam: NORMAL INSPECTION - ENT Exam ENT Exam: Mucous Membranes Moist - Neck Exam Neck exam: Negative for: Meningismus - Respiratory Exam Respiratory Exam: Decreased Breath Sounds - Cardiovascular Exam Cardiovascular Exam: +S1, +S2 - GI/Abdominal Exam GI & Abdominal Exam: Soft. absent: Tenderness Results - Vital Signs Recent Vital Signs: Last Vital Signs Temp 98 F 09/10/17 06:00 Pulse 102 H 09/10/17 09:38 Resp 20 09/10/17 06:00 BP 127/89 09/10/17 06:00 Pulse Ox 100 09/10/17 06:00 - Labs Result Diagrams: 09/09/17 22:33 09/09/17 22:33 Assessment & Plan - Assessment and Plan (Free Text) Plan: Assessment R/O multifocal HCAP, R/O UTI history of sepsis due to left upper lobe healthcare-associated pneumonia, probably atypical history of severe sepsis due to ESBL E. coli bacteremia, unclear source history of sepsis due to right sided healthcare-associated pneumonia history of UTI with carbapenem-resistant Klebsiella history of ESBL-producing Klebsiella bacteremia, secondary to the port S/P removal S/P treatment for healthcare-associated pneumonia history of C diff associated diarrhea history of UTI with yeast history healthcare-associated pneumonia Severe cardiomyopathy with EF 10-15 % paroxysmal atrial fibrillation Coronary artery disease S/P stenting history of aortic aneurysm history of SVT S/P AICD placement S/P procedure on his prostate in 2012 S/P partial colectomy and colostomy Plan gave a dose of IV Vancomycin and started Merrem pending blood cx, urine cx will monitor clinically
--- NOTE | 2017-09-10 19:09 | CARD ---
APPROVED REPORT EKG Measurement Heart [id number] <Conclusion> Sinus tachycardia with fusion complexes Incomplete left bundle branch block Left posterior fascicular block Nonspecific T wave abnormality Abnormal ECG
[2017-09-10] MEDS: Albuterol-Ipratrop 3 mg / 0.5 (3 ml) UD IH SCH ×2 (20:13→22:59)
[2017-09-10] MEDS: MethylPREDNISolone 40 mg Vial IVP SCH (21:30)
[2017-09-11] MEDS: Milrinone 20mg/100ml D5W 100 ML IV PRN ×2 (01:15→17:32)
[2017-09-11 03:02] LABS: MAGNESIUM 1.8 mg/dL (1.7-2.2)
[2017-09-11 03:14] LABS: TROPONIN I 0.03 ng/mL
--- NOTE | 2017-09-11 05:29 | CON ---
DATE: 09/10/2017 PULMONARY CONSULTATION REFERRING PHYSICIAN: Dr. Palacios. REASON FOR CONSULTATION: Cough, shortness of breath, lung cancer, cardiomyopathy. HISTORY OF PRESENT ILLNESS: This is a 72-year-old female well known to me with multiple medical issues including chronic obstructive lung disease; severe cardiomyopathy; Primacor dependent; history of lung cancer, been on radiation therapy; has a coronary artery disease; multiple coronary stents; aortic aneurysm; cardiac arrhythmia, requiring AICD; history of hemicolectomy; has a ileostomy; recurrent UTI; mostly bedridden, comes into ER complaining about cough, shortness of breath, not feeling well. No hemoptysis, no hematemesis, no hematuria reported. PAST MEDICAL HISTORY: As per history of present illness. ALLERGIES: NONE KNOWN. FAMILY HISTORY: No significant cardiopulmonary disease reported. SOCIAL HISTORY: Former smoker. Denies any alcohol use. MEDICATIONS: He is on Coreg 25 mg twice a day, Coumadin 2 mg daily, albuterol/Atrovent nebulizer q.i.d., Ecotrin 81 mg daily, ferrous sulfate 324 mg twice a day, Flomax 0.4 mg daily, Lasix 40 mg IV daily, Lipitor 10 mg daily, mag oxide 400 mg twice a day, meropenem 500 mg q. 12 hours, Pepcid 40 mg daily, PhosLo three times a day, Primacor IV drip, Proscar 5 mg daily, calcitriol 0.25 mcg Tuesday, Tuesday and Tuesday, sodium bicarbonate 650 mg three times a day, multivitamins daily. REVIEW OF SYSTEMS: No headache, no rhinitis. Has some cough, not much sputum. No hemoptysis, no hematemesis, no hematuria, no diarrhea. No leg swelling reported. Ileostomy working well. PHYSICAL EXAMINATION: GENERAL: Lying in the bed. VITAL SIGNS: Temperature is 98, heart rate is 107, respiratory rate is 20, blood pressure 133/98, pulse ox 100% on 2 liters nasal cannula. HEENT: Moist mucous membranes. Crowded airway. Mallampati score is IV. NECK: Supple. No JVD. LUNGS: Has few crackles, scattered rhonchi. HEART: S1 and S2. ABDOMEN: Soft, nontender. Ileostomy bag working well. EXTREMITIES: There is no edema. NEUROLOGIC: Awake, alert, follows simple commands. LABORATORY DATA: Shows hemoglobin 8.3, hematocrit 26.3, WBC 5.7, platelet is 293. INR 2.03. PTT 34. Sodium 137, potassium 4.2, chloride 104, bicarbonate 24, BUN 44, creatinine 2.9, glucose is 140, calcium is 9.0, AST 26, ALT 32, alk phos is 113. Troponin is 0.03. ProBNP is 16,500. Albumin 3.0, procalcitonin 0.05. Influenza serology test is negative. Previous admission, urine has Klebsiella pneumonia. Chest x-ray done yesterday in the ER shows improving right lower lobe pneumonia, persistent left upper lobe infiltrate, suspected left lower lobe atelectasis, pneumonia versus effusion. IMPRESSION AND PLAN: Cardiomyopathy; milrinone dependent; pulmonary hypertension; atrial fibrillation; history of lung cancer, been on radiation therapy; pneumonitis; resolving right lung pneumonia; left side may have some pleural effusion and infiltrate; gastroesophageal reflux disease; history of hemicolectomy; ileostomy; recurrent gastrointestinal bleed; recurrent small bowel obstruction; severe activities of daily living dysfunction. Agree with Dr. Palacios with the present management. Continue bronchodilator. Keep head at 45 degrees. Continue diuretics. Continue milrinone. Gastric prophylaxis. Anticoagulation. Follow up INR in the morning. We will place him on Solu-Medrol 20 mg q. 12 hours. Patient has suspected sleep apnea syndrome, refusing to use biphasic positive airway pressure. We will write it anyway and see how he does. Follow up labs the morning. Thank you and we will follow with you. Arabella Alva MD
--- NOTE | 2017-09-11 05:37 | CP.PCM.PN ---
Subjective - Date & Time of Evaluation Date of Evaluation: 09/11/17 Time of Evaluation: 05:37 - Subjective Subjective: draft Objective - Vital Signs/Intake and Output Vital Signs (last 24 hours): Temp Pulse Resp BP Pulse Ox 98.6 F 108 H 20 133/98 H 100 09/10/17 18:00 09/11/17 05:09 09/10/17 18:00 09/10/17 18:00 09/10/17 18:00 Intake and Output: 09/10/17 09/11/17 18:59 06:59 Intake Total 100 100 Balance 100 100 - Medications Medications: Current Medications Albuterol/Ipratropium (Duoneb 3 Mg/0.5 Mg (3 Ml) Ud) 3 ml IH QID [facility] Last Admin: 09/10/17 22:59 Dose: Not Given Aspirin (Ecotrin) 81 mg PO DAILY [facility] Last Admin: 09/10/17 10:41 Dose: 81 mg Atorvastatin Calcium (Lipitor) 10 mg PO DAILY [facility] Last Admin: 09/10/17 10:42 Dose: 10 mg Calcitriol (Rocaltrol) 0.25 mcg PO [facility] Calcium Acetate (Phoslo) 667 mg PO TID [facility] Last Admin: 09/10/17 17:30 Dose: 667 mg Carvedilol (Coreg) 25 mg PO BID [facility] Last Admin: 09/10/17 17:30 Dose: 25 mg Famotidine (Pepcid) 40 mg PO HS [facility] Last Admin: 09/10/17 21:29 Dose: Not Given Ferrous Sulfate (Feosol) 324 mg PO BID [facility] Last Admin: 09/10/17 17:30 Dose: 324 mg Finasteride (Proscar) 5 mg PO DAILY [facility] Last Admin: 09/10/17 10:43 Dose: 5 mg Furosemide (Lasix) 40 mg IVP DAILY [facility] Last Admin: 09/10/17 11:35 Dose: 40 mg Milrinone Lactate/Dextrose (Primacor 20mg/100ml D5w) 100 mls @ 6.744 mls/hr IV .[id number] PRN; Protocol; 0.28 MCG/KG/MIN PRN Reason: TITRATE PER MD ORDER Last Admin: 09/11/17 01:15 Dose: 0.28 mcg/kg/min, 6.744 mls/hr Meropenem 500 mg/ Sodium (Chloride) 100 mls @ 100 mls/hr IVPB Q12 [facility] PRN Reason: Protocol Stop: 09/17/17 10:31 Last Admin: 09/10/17 10:55 Dose: 100 mls/hr Magnesium Oxide (Mag-Ox) 400 mg PO BID [facility] Last Admin: 09/10/17 17:30 Dose: 400 mg Methylprednisolone (Solu-Medrol) 20 mg IVP Q12 [facility] Last Admin: 09/10/17 21:30 Dose: Not Given Multivitamins (Thera Tab) 1 tab PO DAILY [facility] Last Admin: 09/10/17 10:43 Dose: Not Given Sodium Bicarbonate (Sodium Bicarbonate Tab) 650 mg PO TID [facility] Last Admin: 09/10/17 17:30 Dose: 650 mg Tamsulosin HCl (Flomax) 0.4 mg PO DAILY [facility] Last Admin: 09/10/17 10:41 Dose: 0.4 mg Warfarin Sodium (Coumadin) 2 mg PO DAILY [facility] PRN Reason: Protocol Stop: 09/16/17 08:00 Last Admin: 09/10/17 10:41 Dose: 2 mg - Labs Labs: 09/11/17 02:39 PT 23.5 SECONDS (9.4-12.5) H 09/09/17 22:33 INR 2.03 (0.93-1.08) H 09/09/17 22:33 APTT 34.2 Seconds (25.1-36.5) 09/09/17 22:33
--- NOTE | 2017-09-11 06:37 | CP.PCM.PN ---
Subjective - Date & Time of Evaluation Date of Evaluation: 09/11/17 Time of Evaluation: 06:34 - Subjective Subjective: S: Patient was seen because he had runs of VTACH. Has no complaints. Pertinent medical record was reviewed. O: Last Vital Signs 3 Temp 98.6 F 09/10/17 18:00 Pulse 108 H 09/11/17 05:09 Resp 20 09/10/17 18:00 BP 133/98 H 09/10/17 18:00 Pulse Ox 100 09/10/17 18:00 Asleep. Not in distress. LUNGS: Normal breathing pattern. A: Non sustained ventricular tachycardia. P:BMP. MG. PHOS. Trop. Objective - Vital Signs/Intake and Output Vital Signs (last 24 hours): Temp Pulse Resp BP Pulse Ox 98.6 F 108 H 20 133/98 H 100 09/10/17 18:00 09/11/17 05:09 09/10/17 18:00 09/10/17 18:00 09/10/17 18:00 Intake and Output: 09/10/17 09/11/17 18:59 06:59 Intake Total 100 220 Balance 100 220 - Medications Medications: Current Medications Albuterol/Ipratropium (Duoneb 3 Mg/0.5 Mg (3 Ml) Ud) 3 ml IH QID [facility] Last Admin: 09/10/17 22:59 Dose: Not Given Aspirin (Ecotrin) 81 mg PO DAILY [facility] Last Admin: 09/10/17 10:41 Dose: 81 mg Atorvastatin Calcium (Lipitor) 10 mg PO DAILY [facility] Last Admin: 09/10/17 10:42 Dose: 10 mg Calcitriol (Rocaltrol) 0.25 mcg PO [facility] Calcium Acetate (Phoslo) 667 mg PO TID [facility] Last Admin: 09/10/17 17:30 Dose: 667 mg Carvedilol (Coreg) 25 mg PO BID [facility] Last Admin: 09/10/17 17:30 Dose: 25 mg Famotidine (Pepcid) 40 mg PO HS [facility] Last Admin: 09/10/17 21:29 Dose: Not Given Ferrous Sulfate (Feosol) 324 mg PO BID [facility] Last Admin: 09/10/17 17:30 Dose: 324 mg Finasteride (Proscar) 5 mg PO DAILY [facility] Last Admin: 09/10/17 10:43 Dose: 5 mg Furosemide (Lasix) 40 mg IVP DAILY [facility] Last Admin: 09/10/17 11:35 Dose: 40 mg Milrinone Lactate/Dextrose (Primacor 20mg/100ml D5w) 100 mls @ 6.744 mls/hr IV .[id number] PRN; Protocol; 0.28 MCG/KG/MIN PRN Reason: TITRATE PER MD ORDER Last Admin: 09/11/17 01:15 Dose: 0.28 mcg/kg/min, 6.744 mls/hr Meropenem 500 mg/ Sodium (Chloride) 100 mls @ 100 mls/hr IVPB Q12 [facility] PRN Reason: Protocol Stop: 09/17/17 10:31 Last Admin: 09/10/17 10:55 Dose: 100 mls/hr Magnesium Oxide (Mag-Ox) 400 mg PO BID [facility] Last Admin: 09/10/17 17:30 Dose: 400 mg Methylprednisolone (Solu-Medrol) 20 mg IVP Q12 [facility] Last Admin: 09/10/17 21:30 Dose: Not Given Multivitamins (Thera Tab) 1 tab PO DAILY [facility] Last Admin: 09/10/17 10:43 Dose: Not Given Sodium Bicarbonate (Sodium Bicarbonate Tab) 650 mg PO TID [facility] Last Admin: 09/10/17 17:30 Dose: 650 mg Tamsulosin HCl (Flomax) 0.4 mg PO DAILY [facility] Last Admin: 09/10/17 10:41 Dose: 0.4 mg Warfarin Sodium (Coumadin) 2 mg PO DAILY [facility] PRN Reason: Protocol Stop: 09/16/17 08:00 Last Admin: 09/10/17 10:41 Dose: 2 mg - Labs Labs: 09/11/17 02:39 PT 23.5 SECONDS (9.4-12.5) H 09/09/17 22:33 INR 2.03 (0.93-1.08) H 09/09/17 22:33 APTT 34.2 Seconds (25.1-36.5) 09/09/17 22:33
[2017-09-11] MEDS: Albuterol-Ipratrop 3 mg / 0.5 (3 ml) UD IH SCH ×5 (07:55→22:00)
[2017-09-11] MEDS: Magnesium Oxide 400 mg Tab UD PO SCH ×2 (09:41→17:25)
[2017-09-11] MEDS: MethylPREDNISolone 40 mg Vial IVP SCH ×2 (09:43→21:12)
[2017-09-11] MEDS: Multivitamin Therapeutic Tab PO SCH (09:44)
[2017-09-11] MEDS: Meropenem 500 MG in Sodium Chloride 0.9% 100 ML IVPB SCH ×2 (09:46→21:13)
--- NOTE | 2017-09-11 12:52 | CP.PCM.PN ---
Subjective - Date & Time of Evaluation Date of Evaluation: 09/11/17 Time of Evaluation: 11:55 - Subjective Subjective: Breathing a little better today, no fevers, no diarrhea. Objective - Vital Signs/Intake and Output Vital Signs (last 24 hours): Temp Pulse Resp BP Pulse Ox 97.6 F 93 H 20 127/72 100 09/11/17 06:00 09/11/17 06:00 09/11/17 06:00 09/11/17 06:00 09/11/17 06:00 Intake and Output: 09/11/17 09/11/17 06:59 18:59 Intake Total 220 68 Balance 220 68 - Medications Medications: Current Medications Albuterol/Ipratropium (Duoneb 3 Mg/0.5 Mg (3 Ml) Ud) 3 ml IH QID [facility] Last Admin: 09/10/17 22:59 Dose: Not Given Aspirin (Ecotrin) 81 mg PO DAILY [facility] Last Admin: 09/10/17 10:41 Dose: 81 mg Atorvastatin Calcium (Lipitor) 10 mg PO DAILY [facility] Last Admin: 09/10/17 10:42 Dose: 10 mg Calcitriol (Rocaltrol) 0.25 mcg PO MWF [facility] Calcium Acetate (Phoslo) 667 mg PO TID [facility] Last Admin: 09/10/17 17:30 Dose: 667 mg Carvedilol (Coreg) 25 mg PO BID [facility] Last Admin: 09/10/17 17:30 Dose: 25 mg Famotidine (Pepcid) 40 mg PO HS [facility] Last Admin: 09/10/17 21:29 Dose: Not Given Ferrous Sulfate (Feosol) 324 mg PO BID [facility] Last Admin: 09/10/17 17:30 Dose: 324 mg Finasteride (Proscar) 5 mg PO DAILY [facility] Last Admin: 09/10/17 10:43 Dose: 5 mg Furosemide (Lasix) 40 mg IVP DAILY [facility] Last Admin: 09/10/17 11:35 Dose: 40 mg Milrinone Lactate/Dextrose (Primacor 20mg/100ml D5w) 100 mls @ 6.744 mls/hr IV .[id number] PRN; Protocol; 0.28 MCG/KG/MIN PRN Reason: TITRATE PER MD ORDER Last Admin: 09/11/17 01:15 Dose: 0.28 mcg/kg/min, 6.744 mls/hr Meropenem 500 mg/ Sodium (Chloride) 100 mls @ 100 mls/hr IVPB Q12 [facility] PRN Reason: Protocol Stop: 09/17/17 10:31 Last Admin: 09/10/17 10:55 Dose: 100 mls/hr Magnesium Oxide (Mag-Ox) 400 mg PO BID [facility] Last Admin: 09/10/17 17:30 Dose: 400 mg Methylprednisolone (Solu-Medrol) 20 mg IVP Q12 [facility] Last Admin: 09/10/17 21:30 Dose: Not Given Multivitamins (Thera Tab) 1 tab PO DAILY [facility] Last Admin: 09/10/17 10:43 Dose: Not Given Sodium Bicarbonate (Sodium Bicarbonate Tab) 650 mg PO TID [facility] Last Admin: 09/10/17 17:30 Dose: 650 mg Tamsulosin HCl (Flomax) 0.4 mg PO DAILY [facility] Last Admin: 09/10/17 10:41 Dose: 0.4 mg Warfarin Sodium (Coumadin) 2 mg PO DAILY [facility] PRN Reason: Protocol Stop: 09/16/17 08:00 Last Admin: 09/10/17 10:41 Dose: 2 mg - Labs Labs: 09/11/17 02:39 PT 23.5 SECONDS (9.4-12.5) H 09/09/17 22:33 INR 2.03 (0.93-1.08) H 09/09/17 22:33 APTT 34.2 Seconds (25.1-36.5) 09/09/17 22:33 - Constitutional Appears: Chronically Ill - Head Exam Head Exam: NORMAL INSPECTION - ENT Exam ENT Exam: Mucous Membranes Moist - Neck Exam Neck Exam: absent: Meningismus - Respiratory Exam Respiratory Exam: Decreased Breath Sounds - Cardiovascular Exam Cardiovascular Exam: +S1, +S2 - GI/Abdominal Exam GI & Abdominal Exam: Soft. absent: Tenderness - Extremities Exam Additional comments: right arm PICC line in place, site intact and clean Assessment and Plan - Assessment and Plan (Free Text) Plan: Assessment R/O multifocal HCAP, R/O UTI history of sepsis due to left upper lobe healthcare-associated pneumonia, probably atypical history of severe sepsis due to ESBL E. coli bacteremia, unclear source history of sepsis due to right sided healthcare-associated pneumonia history of UTI with carbapenem-resistant Klebsiella history of ESBL-producing Klebsiella bacteremia, secondary to the port S/P removal S/P treatment for healthcare-associated pneumonia history of C diff associated diarrhea history of UTI with yeast history healthcare-associated pneumonia Severe cardiomyopathy with EF 10-15 % paroxysmal atrial fibrillation Coronary artery disease S/P stenting history of aortic aneurysm history of SVT S/P AICD placement S/P procedure on his prostate in 2012 S/P partial colectomy and colostomy Plan gave a dose of IV Vancomycin and continue Merrem day 2 pending urine cx; blood cx negative x 1 day will continue to monitor clinically
[2017-09-11] MEDS ORDERED: Insulin Regular 1 UNITS/0.01 ML ML SC ONE (18:26)
[2017-09-11] MEDS: Insulin Reg-LOW-Coverage SC SCH ×2 (18:44→21:40)
[2017-09-11] MEDS: Insulin Detemir 100 units/ml Vial (Levemir) SC SCH (21:41)
[2017-09-11] MEDS ORDERED: Insulin Reg-LOW-Coverage SC SCH (22:00)
--- NOTE | 2017-09-12 02:10 | PN ---
DATE: PULMONARY PROGRESS NOTE REFERRING PHYSICIAN: Dexter Palacios MD. SUBJECTIVE: He is lying in the bed, feels better. Still has some cough, sputum production. No nausea. No vomiting. No diarrhea. No leg pain or leg swelling. OBJECTIVE; GENERAL: In no acute distress. VITAL SIGNS: Temperature is 98, heart rate is 92, respiratory rate is 20, blood pressure 120/76, pulse ox 97% on 2 L nasal cannula. HEENT: Moist mucous membrane. Crowded airway. NECK: Supple. No JVD. LUNGS: Have a fair airflow with rhonchi. HEART: S1, S2. ABDOMEN: Soft. Ileostomy draining well. EXTREMITIES: There is no edema. NEUROLOGIC: Awake, alert. Follows simple command. MEDICATIONS: He is on Coreg 25 mg twice a day; Coumadin 2 mg given today, DuoNeb q.i.d.; Ecotrin 81 mg daily; ferrous sulfate 324 mg twice a day; Flomax 0.4 mg daily; insulin coverage; Lasix 40 mg daily; Levemir 50 units subcu q.12 hours; Lipitor 10 mg daily; mag oxide 400 mg twice a day; Pepcid 40 mg at bedtime; PhosLo 667 three times a day; Primacor IV, Proscar 5 mg daily; calcitriol Tuesday, Tuesday and Tuesday; calcium carbonate 650 mg three times a day; Solu-Medrol 20 mg q.12 hours, multivitamins daily. LABORATORY DATA: Reviewed. Show sodium 138, potassium 3.8, chloride 106, bicarbonate 24, BUN 44, creatinine 3.0, glucose 126, calcium is 9.0, phosphorus 4.7, magnesium 1.3, troponin is 0.03. Urine has grown gram-negative organism. IMPRESSION: Sepsis, probably related to chronic lung disease as well as urinary tract infection, also has severe cardiomyopathy, milrinone dependent, pulmonary hypertension, atrial fibrillation, history of lung cancer, been on radiation therapy in the past, has a right lung resolved pneumonia, small left pleural effusion and infiltrate, gastroesophageal reflux disease, history of hemicolectomy and ileostomy, recurrent gastrointestinal bleed, recurrent bowel obstruction, severe activities of daily living dysfunction, basically bedridden. PLAN: Pulmonary point of view, doing okay. Continue IV and inhaled bronchodilator, antibiotics as per Infectious Disease. Gastric prophylaxis, anticoagulation. Follow up INR and we will follow with you. Arabella Alva MD
--- NOTE | 2017-09-12 04:36 | PN ---
DATE: 09/11/2017 SUBJECTIVE: The patient seems more comfortable, less short of breath, less coughing, seems stable. Blood sugar running in 300. PHYSICAL EXAMINATION: VITAL SIGNS: Temperature is 98.1, heart rate 111, blood pressure 112/68, respirations 20, saturation 99% on 2 L. HEAD AND NECK: Normal. No JVD. No thyromegaly. CHEST: Clear. Diminished breath sounds bilaterally, more in the left than the right. Few wheezes. CARDIAC: First sound and second sound normal with systolic murmur. ABDOMEN: Soft, colostomy tube, colostomy bag, nontender. EXTREMITIES: Mild edema. NEUROLOGIC: Generalized weakness. The patient is alert, awake, oriented x3. LABORATORY DATA: Noted for sodium 138, potassium 3.8, chloride 106, bicarbonate 24, BUN 44, creatinine is 3, blood sugar 140, calcium 9, phosphorus 4.7, magnesium 1.8, troponin 0.03 which is negative. The patient is seen by Dr. Elkins, ID consult and Dr. Alva, Pulmonary consult. IMPRESSION AND PLAN: 1. Acute chronic obstructive pulmonary disease exacerbation with nosocomial pneumonia, recurrent. Continue IV meropenem for pneumonia and follow up clinically. 2. Acute worsening of his congestive heart failure. Continue IV Lasix. The patient is getting Lasix IV 40 mg daily and we will monitor him clinically. Continue IV milrinone. The patient seems stable. Continue Coumadin for underlying chronic atrial fibrillation. 3. Anemia, stable. No evidence of any gastrointestinal bleed. Stool looks normal color, no black stool. Continue to monitor his hemoglobin. Continue aspirin 81 mg daily and Coumadin 2 mg once a day. 4. Diabetes, insulin dependent. Continue Levemir 15 units b.i.d. plus insulin coverage and 5 units before each meal of Humalog. We will follow up clinically. CURRENT MEDICATIONS: Coreg 25 mg b.i.d., Coumadin 2 mg daily, nebulizer DuoNeb, Ecotrin 81 mg, iron pill 324 mg b.i.d., Flomax 0.4 mg once a day, insulin Humalog 5 units before meals, Lasix 40 mg IV daily, Levemir 15 units b.i.d., Lipitor 10 mg daily, magnesium oxide 400 mg b.i.d., meropenem 1 g daily q.12 hours, Pepcid 40 mg at bedtime, PhosLo 667 mg t.i.d., milrinone IV, Proscar 5 mg, calcium, sodium bicarbonate 650 mg t.i.d., Solu-Medrol 20 mg IV q.12 hours, and multivitamins once a day. Repeat labs in the morning, chest x-ray in the morning. Continue current therapy. Follow up with other consultants. Dexter Palacios MD
[2017-09-12 07:11] LABS: MEAN CELL VOLUME 80.5 fl (80.0-105.0); MEAN CORPUSCULAR HEMOGLOBIN 25.2 pg (25.0-35.0); MEAN CORPUSCULAR HGB CONC 31.3 g/dl (31.0-37.0); MEAN PLATELET VOLUME 9.8 fl (7.0-11.0); RBC 3.18 10^6/uL (3.5-6.1); RED CELL DISTRIBUTION WIDTH 17.2 % (11.5-14.5); WHITE BLOOD COUNT 6.3 10^3/ul (4.5-11.0)
[2017-09-12 07:24] LABS: INR 2.58 (0.93-1.08); PROTHROMBIN TIME 30.3 SECONDS (9.4-12.5)
[2017-09-12] MEDS ORDERED: Insulin Regular 1 UNITS/0.01 ML ML SC SCH (07:30)
[2017-09-12 07:31] LABS: CALCIUM 8.8 mg/dL (8.4-10.5)
[2017-09-12] MEDS: Insulin Reg-LOW-Coverage SC SCH ×4 (08:12→21:45)
[2017-09-12] MEDS: Insulin Regular 1 UNITS/0.01 ML ML SC SCH ×3 (08:14→17:31)
[2017-09-12] MEDS: Milrinone 20mg/100ml D5W 100 ML IV PRN (09:42)
--- NOTE | 2017-09-12 09:42 | RAD ---
HISTORY: pnemonia COMPARISON: 09/09/2017 TECHNIQUE: Chest PA and lateral FINDINGS: LUNGS: No active pulmonary disease. PLEURA: Small left-sided pleural effusion CARDIOVASCULAR: Mild cardiomegaly OSSEOUS STRUCTURES: No significant abnormalities. VISUALIZED UPPER ABDOMEN: Normal. OTHER FINDINGS: Pacemaker IMPRESSION: No active disease.
[2017-09-12] MEDS: Meropenem 500 MG in Sodium Chloride 0.9% 100 ML IVPB SCH ×2 (09:49→21:46)
[2017-09-12] MEDS: MethylPREDNISolone 40 mg Vial IVP SCH ×2 (09:50→21:45)
[2017-09-12] MEDS: Insulin Detemir 100 units/ml Vial (Levemir) SC SCH ×2 (09:50→21:44)
[2017-09-12] MEDS: Multivitamin Therapeutic Tab PO SCH (09:51)
[2017-09-12] MEDS: Magnesium Oxide 400 mg Tab UD PO SCH ×2 (09:51→17:31)
--- NOTE | 2017-09-12 10:47 | HP ---
DATE OF EXAM: 09/10/2017 REASON FOR ADMISSION : Patient came in with shortness of breath and generalized weakness. HISTORY OF PRESENT ILLNESS: This is a 72-year-old male with history of congestive heart failure, his EF 20%, multiple admissions before, history of pneumonia, history of lung CA and insulin-dependent diabetes with cardiomyopathy and ICD. Came in today because of coughing, more productive cough for the last two days. Patient brought in by his and he is feeling generally weak, tired and not doing well. Denied any fever, any chills; just because of worsening breathing, coughing and more productive sputum, the brought him to Emergency Room for evaluations. He has no nausea, no vomiting, no chest pain. No other complaints. PAST MEDICAL HISTORY: As I mentioned above, ischemic cardiomyopathy, his EF 20% or less, on IV milrinone; chronic obstructive pulmonary disease; lung CA; history of recurrent pneumonia; recurrent urinary tract infections; history of ileostomy; history of aortic stent placement; CVA; hypertension; insulin-dependent diabetes. Patient does also have chronic atrial fibrillation, on Coumadin; also chronic renal insufficiency, creatinine runs in 2-3 range. ALLERGIES: NO KNOWN ALLERGIES. SOCIAL HISTORY: No smoking. No drinking. Lives with his , very supportive and good caregiver for him. MEDICATIONS: He does take multiple medications at home including Pepcid 40 mg at night; calcitriol 0.25 Tuesday, Tuesday, Tuesday; Protonix 40 mg; Lipitor 10 mg; aspirin 81 mg; Coumadin 2 mg p.o. daily; Proscar 5 mg p.o. daily; Lasix 40 mg p.o. daily; Flomax 0.4 mg; sodium bicarbonate 650 mg p.o. t.i.d.; iron pills 325 mg b.i.d.; daily vitamins; magnesium oxide; Coreg 25 mg b.i.d.; calcium acetate, PhosLo 667 mg t.i.d. REVIEW OF SYSTEMS: As in the present illness, usually bound to wheelchair. Does not walk. He is also most of the time bedridden. He gets dyspnea with minimum exertion. He does also have colostomy bag, the changes it periodically and as in the present illness. PHYSICAL EXAMINATION When he came in, VITAL SIGNS: Temperature 98.2, heart rate 105, blood pressure 132/89, respirations 16, saturating 97% on 2 liters nasal cannula. HEAD AND NECK: Normal. No JVD. No thyromegaly. CHEST: There is diminished breath sounds on both sides, mild wheeze bilaterally and rhonchi. CARDIAC: First sound and second sound normal. There is systolic murmur. ABDOMEN: There is ileostomy tube; colostomy bag, which is clean. Soft, nontender. EXTREMITIES: There is minimal edema bilaterally. NEUROLOGIC: Patient does have generalized weakness, more on the left side. LABORATORY DATA: When he came in, he had sodium 137, potassium 4.2, chloride 104, bicarbonate 24, BUN 44, creatinine 2.9. Blood sugar 173, calcium 9. Liver function test is normal. His proBNP is 16,500. CBC shows white count 5.7, hemoglobin 8.3, hematocrit 26.3, platelets 293,000. His urine shows 25 to 30 white blood cells. PT, INR: PT 23.5, INR 2.03. PTT 34.2. Influenza type A and B is negative. Patient also had a chest x-ray which shows retrocardiac infiltrate, left upper lobe infiltrate and there is right upper lobe infiltrate. IMPRESSION AND PLAN: This is a 72-year-old male came in with more productive cough, more short of breath, found to have high BNP, high pneumonia, high infiltrate in the left upper and left lower lobe, retrocardiac. We will admit the patient for: 1. Acute recurrent nosocomial pneumonia; however, with multiple admissions to the hospital, we were concerned about a resistant organism. We will get an Infectious Disease, give him meropenem and vancomycin and we will follow up with Infectious Disease consult, Pulmonary consult, Dr. Alva. 2. Congestive heart failure. Patient getting IV milrinone. High proBNP. We will continue IV Lasix. Continue IV milrinone. We will follow up with Cardiology consultation. 3. Anemia, chronic. Patient has been on iron, has a history of bleeding in the past, on Coumadin and at this time, he is not. We will monitor his PT/INR, seems therapeutic, we will continue to follow up with that. If it keeps dropping, we will transfuse the patient. At this time, it seems stable. He did have an EGD, which was negative in the past month or two. Continue Protonix. Monitor his H&H. 4. Cerebrovascular accident, insulin-dependent diabetes, chronic cardiomyopathy, hypertension, chronic atrial fibrillation. Continue insulin coverage. Continue current therapy. Follow up clinically and continue IV milrinone. Dexter Palacios MD
[2017-09-12] MEDS: Albuterol-Ipratrop 3 mg / 0.5 (3 ml) UD IH SCH ×5 (11:03→21:43)
--- NOTE | 2017-09-12 12:31 | CP.PCM.PN ---
Subjective - Date & Time of Evaluation Date of Evaluation: 09/12/17 Time of Evaluation: 10:05 - Subjective Subjective: More awake today and more comfortable in bed, no fevers, no diarrhea, not in distress. Objective - Vital Signs/Intake and Output Vital Signs (last 24 hours): Temp Pulse Resp BP Pulse Ox 98.2 F 107 H 20 117/81 98 09/12/17 05:39 09/12/17 05:39 09/12/17 05:39 09/12/17 05:39 09/12/17 05:39 Intake and Output: 09/12/17 09/12/17 06:59 18:59 Intake Total 2510 Output Total 2300 Balance 210 - Medications Medications: Current Medications Albuterol/Ipratropium (Duoneb 3 Mg/0.5 Mg (3 Ml) Ud) 3 ml IH QID [facility] Last Admin: 09/11/17 22:00 Dose: Not Given Aspirin (Ecotrin) 81 mg PO DAILY [facility] Last Admin: 09/11/17 09:42 Dose: 81 mg Atorvastatin Calcium (Lipitor) 10 mg PO DAILY [facility] Last Admin: 09/11/17 09:41 Dose: 10 mg Calcitriol (Rocaltrol) 0.25 mcg PO MWF [facility] Calcium Acetate (Phoslo) 667 mg PO TID [facility] Last Admin: 09/11/17 17:26 Dose: 667 mg Carvedilol (Coreg) 25 mg PO BID [facility] Last Admin: 09/11/17 17:25 Dose: 25 mg Famotidine (Pepcid) 40 mg PO HS [facility] Last Admin: 09/11/17 21:12 Dose: 40 mg Ferrous Sulfate (Feosol) 324 mg PO BID [facility] Last Admin: 09/11/17 17:26 Dose: 324 mg Finasteride (Proscar) 5 mg PO DAILY [facility] Last Admin: 09/11/17 09:41 Dose: 5 mg Furosemide (Lasix) 40 mg IVP DAILY [facility] Last Admin: 09/11/17 09:43 Dose: 40 mg Milrinone Lactate/Dextrose (Primacor 20mg/100ml D5w) 100 mls @ 6.744 mls/hr IV .[id number] PRN; Protocol; 0.28 MCG/KG/MIN PRN Reason: TITRATE PER MD ORDER Last Admin: 09/11/17 17:32 Dose: 0.28 mcg/kg/min, 6.744 mls/hr Meropenem 500 mg/ Sodium (Chloride) 100 mls @ 100 mls/hr IVPB Q12 [facility] PRN Reason: Protocol Stop: 09/17/17 10:31 Last Admin: 09/11/17 21:13 Dose: 100 mls/hr Insulin Detemir (Levemir) 15 unit SC Q12 [facility] Last Admin: 09/11/17 21:41 Dose: 15 unit Insulin Human Regular (Humulin R Low) 0 units SC ACHS [facility] PRN Reason: Protocol Last Admin: 09/12/17 08:12 Dose: 4 units Insulin Human Regular (Humulin R) 5 units SC AC [facility] Last Admin: 09/12/17 08:14 Dose: 5 units Magnesium Oxide (Mag-Ox) 400 mg PO BID [facility] Last Admin: 09/11/17 17:25 Dose: 400 mg Methylprednisolone (Solu-Medrol) 20 mg IVP Q12 [facility] Last Admin: 09/11/17 21:12 Dose: 20 mg Multivitamins (Thera Tab) 1 tab PO DAILY [facility] Last Admin: 09/11/17 09:44 Dose: 1 tab Sodium Bicarbonate (Sodium Bicarbonate Tab) 650 mg PO TID [facility] Last Admin: 09/11/17 17:26 Dose: 650 mg Tamsulosin HCl (Flomax) 0.4 mg PO DAILY [facility] Last Admin: 09/11/17 09:42 Dose: 0.4 mg Warfarin Sodium (Coumadin) 2 mg PO DAILY [facility] PRN Reason: Protocol Stop: 09/16/17 08:00 Last Admin: 09/11/17 09:42 Dose: 2 mg - Labs Labs: 09/12/17 06:40 09/12/17 06:40 PT 30.3 SECONDS (9.4-12.5) H 09/12/17 06:40 INR 2.58 (0.93-1.08) H 09/12/17 06:40 APTT 34.2 Seconds (25.1-36.5) 09/09/17 22:33 - Constitutional Appears: Chronically Ill - Head Exam Head Exam: NORMAL INSPECTION - ENT Exam ENT Exam: Mucous Membranes Moist - Neck Exam Neck Exam: absent: Meningismus - Respiratory Exam Respiratory Exam: Decreased Breath Sounds - Cardiovascular Exam Cardiovascular Exam: +S1, +S2 - GI/Abdominal Exam GI & Abdominal Exam: Soft. absent: Tenderness Assessment and Plan - Assessment and Plan (Free Text) Plan: Assessment R/O multifocal HCAP, R/O UTI with gram negative bacilli history of sepsis due to left upper lobe healthcare-associated pneumonia, probably atypical history of severe sepsis due to ESBL E. coli bacteremia, unclear source history of sepsis due to right sided healthcare-associated pneumonia history of UTI with carbapenem-resistant Klebsiella history of ESBL-producing Klebsiella bacteremia, secondary to the port S/P removal S/P treatment for healthcare-associated pneumonia history of C diff associated diarrhea history of UTI with yeast history healthcare-associated pneumonia Severe cardiomyopathy with EF 10-15 % paroxysmal atrial fibrillation Coronary artery disease S/P stenting history of aortic aneurysm history of SVT S/P AICD placement S/P procedure on his prostate in 2012 S/P partial colectomy and colostomy Plan gave a dose of IV Vancomycin and continue Merrem day 3 pending final urine cx results; blood cx negative will continue to monitor clinically
[2017-09-12] MEDS ORDERED: Insulin Regular 1 UNITS/0.01 ML ML SC ONE (18:26)
--- NOTE | 2017-09-13 00:40 | PN ---
DATE: 09/12/2017 PULMONARY PROGRESS NOTE REFERRING PHYSICIAN: Dr. Palacios. SUBJECTIVE: The patient is lying in the bed, head at 45 degrees, is at bedside. Cough is better. No nausea. No vomiting. No diarrhea. No leg pain or leg swelling. OBJECTIVE: GENERAL: In no acute distress. VITAL SIGNS: Temperature is 98, heart rate is 100, respiratory rate is 20, blood pressure 121/80, pulse ox 100% on room air. HEENT: Moist mucous membranes. Crowded airway. Mallampati score is 4. NECK: Supple. No JVD. LUNGS: Have a fair airflow with rhonchi. HEART: S1, S2. ABDOMEN: Positive bowel sounds, soft. Ileostomy bag draining well. EXTREMITIES: There is no edema. NEUROLOGICAL: Awake, alert, follows simple command. MEDICATIONS: He is on Coreg 25 mg twice a day, Coumadin 2 mg given today, DuoNeb four times a day, Ecotrin 81 mg daily, ferrous sulfate 325 mg twice a day, Flomax 0.4 mg daily, insulin coverage, Lasix 40 mg daily, Levemir 15 units subcu q. 12 hours, Lipitor 10 mg daily, mag oxide 400 mg twice a day, meropenem 1 g IV q. 12 hours, Pepcid 40 mg at bedtime, calcium acetate 667 three times a day, Primacor IV drip, Proscar 5 mg daily, calcitriol 0.25 mcg Tuesday, Tuesday and Tuesday IV, sodium bicarbonate 650 mg three times a day, Solu-Medrol 20 mg q. 12 hours, multivitamins daily. LABORATORY DATA: Shows hemoglobin 8.0, hematocrit 25.6, WBC 6.3, platelet is . INR 2.58. Sodium 136, potassium 4.2, chloride 102, bicarbonate 28, BUN 60, creatinine 3.3, glucose 296, calcium is 8.8. PSA is 1.2. Urine culture has E. coli and Klebsiella pneumoniae. Chest x-ray done this morning shows no new changes, no active disease reported. IMPRESSION AND PLAN: Sepsis probably related to chronic lung disease, also has a urinary tract infection, severe cardiomyopathy, milrinone dependent, pulmonary hypertension, atrial fibrillation, history of lung cancer, status post radiation therapy, right lung infiltrate resolved, had the small left pleural effusion and infiltrate, gastroesophageal reflux disease, history of hemicolectomy and ileostomy. Spoke to the patient's at bedside. Also has a history of gastrointestinal bleed in the past, recurrent small bowel obstruction. Spoke to the patient's at bedside. All the questions were answered. Continue intravenous and inhaled bronchodilator, antibiotics, aspiration precaution. Hold Primacor. Continue anticoagulation. Thank you and we will follow with you. Arabella Alva MD
[2017-09-13] MEDS: Milrinone 20mg/100ml D5W 100 ML IV PRN ×2 (01:00→16:44)
--- NOTE | 2017-09-13 04:28 | CP.PCM.PN ---
Subjective - Date & Time of Evaluation Date of Evaluation: 09/13/17 Time of Evaluation: 04:26 - Subjective Subjective: Patient was seen at bedside. As per nurse , he had shown 14 beats of runs of VTACH on monitor. Has no complaints. Denies chest pain, sob. Medical record was reviewed. This 72 year old male was admitted with productive cough, weakness, tiredness, PNA,CHF. Has PMH of ischemic CMP, EF 20%, COPD, lung cancer , recurrent pneumonia, ielostomy, aortic stent placement, recurrent UTI, CVA, HTN, IDDM, atrial fibrillation, chronic renal insufficiency. Objective - Vital Signs/Intake and Output Vital Signs (last 24 hours): Temp Pulse Resp BP Pulse Ox 97.8 F 102 H 20 132/82 98 09/13/17 00:01 09/13/17 02:00 09/13/17 00:01 09/13/17 01:00 09/13/17 00:01 Intake and Output: 09/12/17 09/13/17 18:59 06:59 Intake Total 820 700 Output Total 350 600 Balance 470 100 - Medications Medications: Current Medications Albuterol/Ipratropium (Duoneb 3 Mg/0.5 Mg (3 Ml) Ud) 3 ml IH QID [facility] Last Admin: 09/12/17 21:43 Dose: Not Given Aspirin (Ecotrin) 81 mg PO DAILY [facility] Last Admin: 09/12/17 09:50 Dose: 81 mg Atorvastatin Calcium (Lipitor) 10 mg PO DAILY [facility] Last Admin: 09/12/17 09:50 Dose: 10 mg Calcitriol (Rocaltrol) 0.25 mcg PO MWF [facility] Last Admin: 09/12/17 09:50 Dose: 0.25 mcg Calcium Acetate (Phoslo) 667 mg PO TID [facility] Last Admin: 09/12/17 17:32 Dose: 667 mg Carvedilol (Coreg) 25 mg PO BID [facility] Last Admin: 09/12/17 17:31 Dose: 25 mg Famotidine (Pepcid) 40 mg PO HS [facility] Last Admin: 09/12/17 21:44 Dose: 40 mg Ferrous Sulfate (Feosol) 324 mg PO BID [facility] Last Admin: 09/12/17 17:32 Dose: 324 mg Finasteride (Proscar) 5 mg PO DAILY [facility] Last Admin: 09/12/17 09:50 Dose: 5 mg Furosemide (Lasix) 40 mg IVP DAILY [facility] Last Admin: 09/12/17 09:50 Dose: 40 mg Milrinone Lactate/Dextrose (Primacor 20mg/100ml D5w) 100 mls @ 6.744 mls/hr IV .[id number] PRN; Protocol; 0.28 MCG/KG/MIN PRN Reason: TITRATE PER MD ORDER Last Admin: 09/13/17 01:00 Dose: 0.28 mcg/kg/min, 6.744 mls/hr Meropenem 500 mg/ Sodium (Chloride) 100 mls @ 100 mls/hr IVPB Q12 [facility] PRN Reason: Protocol Stop: 09/17/17 10:31 Last Admin: 09/12/17 21:46 Dose: 100 mls/hr Insulin Detemir (Levemir) 15 unit SC Q12 [facility] Last Admin: 09/12/17 21:44 Dose: 15 unit Insulin Human Regular (Humulin R Low) 0 units SC ACHS [facility] PRN Reason: Protocol Last Admin: 09/12/17 21:45 Dose: 2 units Insulin Human Regular (Humulin R) 5 units SC AC [facility] Last Admin: 09/12/17 17:31 Dose: 5 units Magnesium Oxide (Mag-Ox) 400 mg PO BID [facility] Last Admin: 09/12/17 17:31 Dose: 400 mg Methylprednisolone (Solu-Medrol) 20 mg IVP Q12 [facility] Last Admin: 09/12/17 21:45 Dose: 20 mg Multivitamins (Thera Tab) 1 tab PO DAILY [facility] Last Admin: 09/12/17 09:51 Dose: 1 tab Sodium Bicarbonate (Sodium Bicarbonate Tab) 650 mg PO TID [facility] Last Admin: 09/12/17 17:32 Dose: 650 mg Tamsulosin HCl (Flomax) 0.4 mg PO DAILY [facility] Last Admin: 09/12/17 09:51 Dose: 0.4 mg Warfarin Sodium (Coumadin) 2 mg PO DAILY [facility] PRN Reason: Protocol Stop: 09/16/17 08:00 Last Admin: 09/12/17 09:51 Dose: 2 mg - Labs Labs: 09/12/17 06:40 09/12/17 06:40 PT 30.3 SECONDS (9.4-12.5) H 09/12/17 06:40 INR 2.58 (0.93-1.08) H 09/12/17 06:40 APTT 34.2 Seconds (25.1-36.5) 09/09/17 22:33 - Constitutional Appears: Well, No Acute Distress - Head Exam Head Exam: ATRAUMATIC, NORMAL INSPECTION, NORMOCEPHALIC - Eye Exam Eye Exam: Normal appearance - ENT Exam ENT Exam: Normal External Ear Exam - Neck Exam Neck Exam: Normal Inspection - Respiratory Exam Respiratory Exam: NORMAL BREATHING PATTERN - Cardiovascular Exam Cardiovascular Exam: absent: JVD - GI/Abdominal Exam GI & Abdominal Exam: absent: Distended - Rectal Exam Rectal Exam: Deferred - Exam Additional comments: Deferred. - Extremities Exam Extremities Exam: Normal Inspection - Back Exam Back Exam: NORMAL INSPECTION - Neurological Exam Neurological Exam: Alert - Psychiatric Exam Psychiatric exam: Normal Affect, Normal Mood - Skin Skin Exam: Normal Color Assessment and Plan - Assessment and Plan (Free Text) Assessment: Non sustained reuns of VTACH.2* to primacor. Ischemic CMP. HTN. IDDM. PNA. CHF. Chronic renal insufficiency. Chronic atrial fibrillation. Lung cancer history. Plan: Observation. If more frequent VTACH willl reduce dose of primacor or stop it.
[2017-09-13] MEDS: Albuterol-Ipratrop 3 mg / 0.5 (3 ml) UD IH SCH ×4 (07:44→20:56)
[2017-09-13] MEDS: Insulin Reg-LOW-Coverage SC SCH ×5 (08:13→22:52)
[2017-09-13] MEDS: Insulin Regular 1 UNITS/0.01 ML ML SC SCH ×3 (08:14→16:44)
--- NOTE | 2017-09-13 08:58 | PN ---
DATE: 09/12/2017 SUBJECTIVE: The patient is clinically stable. Less short of breath. Not wheezing. No coughing. Tolerating diet. Afebrile. No nausea. No vomiting. PHYSICAL EXAMINATION: VITAL SIGNS: His temperature is 98.1, heart rate 95, blood pressure 117/81, respirations 20, saturations 98% on 2 L. HEAD AND NECK: Normal. No JVD. No thyromegaly. CHEST: Clear. There are diminished breath sounds on the left. CARDIAC: First sound and second sound normal. There is systolic murmur. ABDOMEN: Soft. Colostomy bag site clean. No black stool. EXTREMITIES: No edema. NEUROLOGIC: Generalized weakness. He is bedridden, but he moves all extremity. There is left side weakness more than the right. LABORATORY DATA: White count 6.3, hemoglobin 8, hematocrit 25.6, platelets 334. Chemistry: Sodium 136, potassium 4.2, chloride 102, bicarb 28, BUN 60, creatinine 3.3, blood sugar 317, calcium 8.8. The patient also had a PSA, which was 1.2. The patient also went for a chest x-ray, which shows left-sided pleural effusion and clear. IMPRESSION: 1. Community-acquired pneumonia with recurrent hospital admissions, will be treated as nosocomial pneumonia. The patient is clinically stable. His x-ray seems improved and we will continue meropenem and follow up with the Infectious Disease consultation. 2. Chronic obstructive pulmonary disease with acute exacerbations. Continue IV steroids 20 mg IV. Continue nebulizer treatments, DuoNeb and bilevel positive airway pressure machine at night. 3. Chronic atrial fibrillations. Continue Coumadin. 4. Hypertension, coronary artery disease, hypercholesterolemia, pacemaker, implantable cardioverter-defibrillator. Continue Coreg 25 b.i.d., aspirin 81 mg, Lasix 40 IV daily, Lipitor 10 mg once a day, magnesium 400 b.i.d. and we will continue current therapy. 5. Chronic renal failure, stable. His creatinine usually go 2-3. We will monitor his creatinine with diuretics. It may go up. We will continue current therapy including sodium bicarbonate 650 t.i.d. We will continue PhosLo 667 t.i.d. and monitor his kidney function. 6. Insulin-dependent diabetes. Blood sugar seems running high. We will consider increasing Levemir and we will monitor him probably. Steroids is the factor in elevating his blood sugar. We will decrease it gradually. PLAN: Continue current therapy. Continue IV antibiotic. Follow up clinically with other [employer] consultant. Dexter Palacios MD
--- NOTE | 2017-09-13 09:03 | CON ---
DATE: 09/12/2017 REASON FOR CONSULTATION: Followup cardiac evaluation, history of coronary artery disease, history of cardiomyopathy, admitted with abdominal pain, generalized weakness, and shortness of breath. BRIEF CLINICAL HISTORY: This is a 72-year-old male with a past medical history significant for congestive heart failure, coronary artery disease, status post stent in LAD, status post PTCA, history of ischemic cardiomyopathy, status post AICD, history of multiple admissions, decompensated congestive heart failure,. history of colostomy, history of lung CA, history of pneumonia, history of type 2 diabetes, brought by the because of feeling and generalized weakness. Denies any chest pain. Denies any shortness of breath. Denies any palpitations. Complaining that pain in the abdomen near colostomy site, and thinks he is going to , though denies any chest pain. PAST MEDICAL HISTORY: Significant for ischemic cardiomyopathy, , on home milrinone; history of COPD, history of lung CA, history of recurrent pneumonia, history of urinary tract infections, history of colostomy, history of CVA, history of AAA, status post endovascular stent; history of paroxysmal atrial fibrillation, on Coumadin;history of renal insufficiency, history of chronic kidney disease, history of PTCA of LAD by Dr. Fransico Cabral in the past. SOCIAL HISTORY: Denies any history of alcohol abuse. CURRENT MEDICATIONS: The patient at home is taking Coumadin 2 mg, Flomax 0.4 mg, multivitamin, magnesium, Lasix 40 daily, Pepcid 40 mg daily, carvedilol 25 mg twice a day, calcitriol, atorvastatin 10 mg, and baby aspirin 81 mg daily. REVIEW OF SYSTEMS: As per HPI. PHYSICAL EXAMINATION: VITAL SIGNS: Temperature afebrile, heart rate 95, blood pressure 102/65. HEENT: PERRLA. Extraocular muscles intact. NECK: Supple. No carotid bruit or thyromegaly. CHEST: Clear to auscultation. HEART: S1 and S2, regular. ABDOMEN: Soft. EXTREMITIES: Clubbing and cyanosis negative. LABORATORY DATA: Blood workup as follows, WBC , hemoglobin 8, hematocrit 25.6, platelet count 334. Chemistry shows sodium 130, potassium is 4.0, chloride 102, carbon dioxide 28, anion gap of 10, BUN 60, creatinine 3.3. IMPRESSION: Chronic kidney disease, diabetes, hypertension, hyperlipidemia, ischemic cardiomyopathy with ejection fraction 20 to 25%, paroxysmal atrial fibrillation, status post percutaneous transluminal coronary angioplasty of left anterior descending in the past, status post automatic implantable cardioverter defibrillator, abdominal aortic aneurysm, status post endovascular stenting, history of lung cancer, status post colostomy, generalized weakness, anemia. RECOMMENDATION: Monitor electrolytes, continue baby aspirin, continue Coumadin, continue milrinone, continue iron supplement, continue magnesium, continue amiodarone, continue Coreg as blood pressures tolerated. Overall, patient's condition is critical. Long-term prognosis is guarded. Continue gentle diuretics. Monitor H and H. The patient resume back. We will follow with you. Thank you, Dr. Palacios, for providing us the opportunity in taking care of the patient, [place]. Arabella Mathews MD
[2017-09-13] MEDS: MethylPREDNISolone 40 mg Vial IVP SCH ×2 (09:55→23:11)
[2017-09-13] MEDS: Multivitamin Therapeutic Tab PO SCH (09:57)
[2017-09-13] MEDS: Magnesium Oxide 400 mg Tab UD PO SCH ×2 (09:59→18:09)
[2017-09-13] MEDS: Insulin Detemir 100 units/ml Vial (Levemir) SC SCH ×2 (09:59→18:09)
[2017-09-13] MEDS: Meropenem 500 MG in Sodium Chloride 0.9% 100 ML IVPB SCH ×2 (10:00→23:12)
--- NOTE | 2017-09-13 11:58 | CP.PCM.PN ---
Subjective - Date & Time of Evaluation Date of Evaluation: 09/13/17 Time of Evaluation: 10:05 - Subjective Subjective: Comfortable, no fevers, eating better, not in distress, no diarrhea. Objective - Vital Signs/Intake and Output Vital Signs (last 24 hours): Temp Pulse Resp BP Pulse Ox 97.8 F 98 H 20 135/91 H 98 09/13/17 00:01 09/13/17 09:58 09/13/17 00:01 09/13/17 10:03 09/13/17 00:01 Intake and Output: 09/13/17 09/13/17 06:59 18:59 Intake Total 880 240 Output Total 600 200 Balance 280 40 - Medications Medications: Current Medications Albuterol/Ipratropium (Duoneb 3 Mg/0.5 Mg (3 Ml) Ud) 3 ml IH QIDRESP [facility] Aspirin (Ecotrin) 81 mg PO DAILY [facility] Last Admin: 09/13/17 09:57 Dose: 81 mg Atorvastatin Calcium (Lipitor) 10 mg PO DAILY [facility] Last Admin: 09/13/17 09:57 Dose: 10 mg Calcitriol (Rocaltrol) 0.25 mcg PO MWF [facility] Last Admin: 09/12/17 09:50 Dose: 0.25 mcg Calcium Acetate (Phoslo) 667 mg PO TID [facility] Last Admin: 09/13/17 09:57 Dose: 667 mg Carvedilol (Coreg) 25 mg PO BID [facility] Last Admin: 09/13/17 09:58 Dose: 25 mg Famotidine (Pepcid) 40 mg PO HS [facility] Last Admin: 09/12/17 21:44 Dose: 40 mg Ferrous Sulfate (Feosol) 324 mg PO BID [facility] Last Admin: 09/13/17 09:57 Dose: 324 mg Finasteride (Proscar) 5 mg PO DAILY [facility] Last Admin: 09/13/17 09:58 Dose: 5 mg Furosemide (Lasix) 40 mg IVP DAILY [facility] Last Admin: 09/13/17 10:03 Dose: 40 mg Milrinone Lactate/Dextrose (Primacor 20mg/100ml D5w) 100 mls @ 6.744 mls/hr IV .[id number] PRN; Protocol; 0.28 MCG/KG/MIN PRN Reason: TITRATE PER MD ORDER Last Admin: 09/13/17 01:00 Dose: 0.28 mcg/kg/min, 6.744 mls/hr Meropenem 500 mg/ Sodium (Chloride) 100 mls @ 100 mls/hr IVPB Q12 [facility] PRN Reason: Protocol Stop: 09/17/17 10:31 Last Admin: 09/13/17 10:00 Dose: 100 mls/hr Insulin Detemir (Levemir) 20 unit SC BID [facility] Last Admin: 09/13/17 09:59 Dose: 20 unit Insulin Human Regular (Humulin R Low) 0 units SC ACHS [facility] PRN Reason: Protocol Last Admin: 09/13/17 08:13 Dose: 2 units Insulin Human Regular (Humulin R) 5 units SC AC [facility] Last Admin: 09/13/17 08:14 Dose: 5 units Magnesium Oxide (Mag-Ox) 400 mg PO BID [facility] Last Admin: 09/13/17 09:59 Dose: 400 mg Methylprednisolone (Solu-Medrol) 20 mg IVP Q12 [facility] Last Admin: 09/13/17 09:55 Dose: 20 mg Multivitamins (Thera Tab) 1 tab PO DAILY [facility] Last Admin: 09/13/17 09:57 Dose: 1 tab Sodium Bicarbonate (Sodium Bicarbonate Tab) 650 mg PO TID [facility] Last Admin: 09/13/17 09:59 Dose: 650 mg Tamsulosin HCl (Flomax) 0.4 mg PO DAILY [facility] Last Admin: 09/13/17 09:57 Dose: 0.4 mg Warfarin Sodium (Coumadin) 2 mg PO DAILY [facility] PRN Reason: Protocol Stop: 09/16/17 08:00 Last Admin: 09/13/17 09:57 Dose: 2 mg - Labs Labs: 09/12/17 06:40 09/12/17 06:40 PT 30.3 SECONDS (9.4-12.5) H 09/12/17 06:40 INR 2.58 (0.93-1.08) H 09/12/17 06:40 APTT 34.2 Seconds (25.1-36.5) 09/09/17 22:33 - Constitutional Appears: Chronically Ill - Head Exam Head Exam: NORMAL INSPECTION - ENT Exam ENT Exam: Mucous Membranes Moist - Neck Exam Neck Exam: absent: Meningismus - Respiratory Exam Respiratory Exam: Decreased Breath Sounds - Cardiovascular Exam Cardiovascular Exam: +S1, +S2 - GI/Abdominal Exam GI & Abdominal Exam: Soft. absent: Tenderness Additional comments: colostomy in place - Extremities Exam Additional comments: right arm PICC line site clean and intact Assessment and Plan - Assessment and Plan (Free Text) Plan: Assessment R/O multifocal HCAP UTI with ESBL Klebsiella and Proteus history of sepsis due to left upper lobe healthcare-associated pneumonia, probably atypical history of severe sepsis due to ESBL E. coli bacteremia, unclear source history of sepsis due to right sided healthcare-associated pneumonia history of UTI with carbapenem-resistant Klebsiella history of ESBL-producing Klebsiella bacteremia, secondary to the port S/P removal S/P treatment for healthcare-associated pneumonia history of C diff associated diarrhea history of UTI with yeast history healthcare-associated pneumonia Severe cardiomyopathy with EF 10-15 % paroxysmal atrial fibrillation Coronary artery disease S/P stenting history of aortic aneurysm history of SVT S/P AICD placement S/P procedure on his prostate in 2012 S/P partial colectomy and colostomy Plan continue Merrem day 4 to complete 7-10 days of therapy will continue to monitor clinically
--- NOTE | 2017-09-13 15:14 | PN ---
DATE: PULMONARY PROGRESS NOTE REASON FOR CONSULTATION AND FOLLOWUP: Cardiac evaluation, history of coronary artery disease, history of cardiomyopathy, admitted with abdominal pain, generalized weakness, and shortness of breath. SUBJECTIVE: Denies any chest pain, , or any palpitations. OBJECTIVE: GENERAL: Not in apparent distress. VITAL SIGNS: Temperature afebrile, heart rate 98, blood pressure 135/91. HEENT: PERRLA. Extraocular muscles intact. NECK: Supple. No carotid bruits or thyromegaly. CHEST: Clear to auscultation. HEART: S1 and S2 regular. ABDOMEN: Soft. Colostomy in place. EXTREMITIES: Clubbing and cyanosis negative. LABORATORY DATA: Blood workup as follows. WBC 6.3, hemoglobin 8, hematocrit 25.6, platelet count 334,000. Chemistry shows sodium 130, potassium , chloride 102, carbon dioxide 28, anion gap of 10, BUN 16, and creatinine 3.3 as of yesterday. IMPRESSION: Chronic renal insufficiency; cardiomyopathy, ischemic; status post percutaneous transluminal coronary angioplasty of left anterior descending; history of automatic implantable cardioverter defibrillator; history of colostomy; history of endovascular stent; history of lung carcinoma; a few beats of ventricular tachycardia, most likely secondary to ischemic cardiomyopathy, admitted with abdominal pain, generalized weakness and anemia. RECOMMENDATIONS: Continue Coreg. Continue Coumadin. Goal is to keep INR between 2 to 2.5, highest is 2.5, started amiodarone. Continue atorvastatin. Continue Lasix. Supplement magnesium. Continue milrinone, patient is on home milrinone. We will continue. Thank you, Dr. Palacios, for providing us the opportunity in taking care of the patient, [place]. Arabella Mathews MD
--- NOTE | 2017-09-14 00:59 | PN ---
DATE: 09/13/2017 REFERRING PHYSICIAN: Dexter Palacios MD. SUBJECTIVE: He is out of bed to chair, having dinner. is at bedside. He feels much better, still has a mild cough and shortness of breath. No chest pain. No nausea, no vomiting. Colostomy bag working well. Extremities, there is no edema. Neurologically awake and follows simple commands. OBJECTIVE: VITAL SIGNS: Temperature is 98, heart rate is 90, respiratory rate is 18-20, blood pressure 140/93, pulse ox 98% on nasal cannula. HEENT: Moist mucous membrane. Crowded airway. Mallampati score is IV. NECK: Supple. No JVD. LUNGS: Have a few crackles at the bases with scattered rhonchi. HEART: S1, S2. ABDOMEN: Soft, nontender. No organomegaly. EXTREMITIES: There is no edema. NEUROLOGIC: Awake, alert and follows simple commands. MEDICATIONS: He is on amiodarone 200 mg daily; Coreg 25 mg twice a day; Coumadin 2 mg, will be given tonight; DuoNeb four times daily; Ecotrin 81 mg daily; ferrous sulfate to 324 mg twice a day; Flomax 0.4 mg daily; insulin coverage; Lasix 40 mg daily; Levemir 20 units subcu twice a day; Lipitor 10 mg daily; mag oxide 400 mg twice a day; meropenem 500 mg q.12h.; Pepcid 40 mg at bedtime; PhosLo 667 three times a day; Pulmicort IV; Proscar 5 mg daily; calcitriol 0.5 mg Tuesday, Tuesday, Tuesday; Solu-Medrol 20 mg twice a day; multivitamins daily; Xanax 0.25 mg daily. LABORATORY DATA: Reviewed, shows INR 2.58 yesterday, blood sugar was 303. Influenza A and B is negative. Urine culture has E. coli and Klebsiella. IMPRESSION AND PLAN: Sepsis, probably related to urinary tract infection and chronic lung disease, resolving; pneumonia; severe cardiomyopathy, milrinone dependent; pulmonary hypertension; atrial fibrillation; history of lung cancer; history of radiation therapy; resolved right lung infiltrates; small left pleural effusion; gastroesophageal reflux disease; history of hemicolectomy and ileostomy; history of gastrointestinal bleed; recurrent small bowel obstruction. Spoke to the patient, at bedside. All their questions answered. Continue bronchodilator, keep head at 45 degrees. Sleep apnea precaution. The patient refused to use CPAP. Continue antibiotics, gastric prophylaxis. The patient on milrinone. Thank you and we will follow with you. Arabella Alva MD
[2017-09-14 07:26] LABS: GRAN # 7.42 (1.4-6.5); GRAN % 94.2 % (50.0-68.0); HEMOGLOBIN 8.3 g/dL (14.0-18.0); LYMPH # 0.3 (1.2-3.4); LYMPH % 3.6 % (22.0-35.0); MEAN CELL VOLUME 80.1 fl (80.0-105.0); MEAN CORPUSCULAR HEMOGLOBIN 25.1 pg (25.0-35.0); MEAN CORPUSCULAR HGB CONC 31.3 g/dl (31.0-37.0); MEAN PLATELET VOLUME 9.6 fl (7.0-11.0); MONO # 0.2 (0.1-0.6); MONO % 2.2 % (1.0-6.0); PLATELET COUNT 302 10^3/uL (120.0-450.0); RBC 3.31 10^6/uL (3.5-6.1); RED CELL DISTRIBUTION WIDTH 17.2 % (11.5-14.5); WHITE BLOOD COUNT 7.9 10^3/ul (4.5-11.0)
[2017-09-14 07:46] LABS: PROTHROMBIN TIME 50.4 SECONDS (9.4-12.5)
[2017-09-14] MEDS: Albuterol-Ipratrop 3 mg / 0.5 (3 ml) UD IH SCH ×4 (07:48→21:20)
[2017-09-14 07:49] LABS: INR 4.25 (0.93-1.08)
[2017-09-14 07:52] LABS: CALCIUM 8.8 mg/dL (8.4-10.5); MAGNESIUM 2.2 mg/dL (1.7-2.2)
[2017-09-14 08:30] LABS: LYMPHOCYTE 5 % (22.0-35.0); MONOCYTE 3 % (1.0-6.0); NEUTROPHIL 92 % (50.0-70.0)
[2017-09-14 08:31] LABS: ANISOCYTOSIS 1+; HYPOCHROMIA 2+; MICROCYTOSIS 1+; PLATELET ESTIMATE NORMAL (NORMAL); POLYCHROMASIA SLIGHT; TOXIC GRANULATION SLIGHT
[2017-09-14] MEDS: Insulin Reg-LOW-Coverage SC SCH ×3 (08:50→16:29)
[2017-09-14] MEDS: Insulin Regular 1 UNITS/0.01 ML ML SC SCH ×3 (08:51→16:29)
[2017-09-14] MEDS: Milrinone 20mg/100ml D5W 100 ML IV PRN (08:53)
[2017-09-14] MEDS: Magnesium Oxide 400 mg Tab UD PO SCH ×2 (09:09→17:01)
[2017-09-14] MEDS: Multivitamin Therapeutic Tab PO SCH (09:10)
[2017-09-14] MEDS: MethylPREDNISolone 40 mg Vial IVP SCH ×2 (09:11→21:41)
[2017-09-14] MEDS: Insulin Detemir 100 units/ml Vial (Levemir) SC SCH ×2 (09:13→22:30)
[2017-09-14] MEDS: Meropenem 500 MG in Sodium Chloride 0.9% 50 ML IVPB SCH ×2 (09:28→21:01)
--- NOTE | 2017-09-14 13:00 | PN ---
DATE: REASON FOR CONSULTATION AND FOLLOWUP: Cardiac evaluation, history of coronary artery disease, history of cardiomyopathy, admitted with abdominal pain, generalized weakness, and shortness of breath. SUBJECTIVE: Denies any chest pain, shortness of breath, or any palpitations. Complains of mild pain at colostomy site. OBJECTIVE: GENERAL: Not in apparent distress. VITAL SIGNS: Temperature afebrile, heart rate 90, blood pressure 130/89. HEENT: PERRLA, intact. NECK: Supple. No carotid bruits or thyromegaly. CHEST: Clear to auscultation. HEART: S1 and S2, regular. ABDOMEN: Soft. EXTREMITIES: Clubbing and cyanosis negative. LABORATORY DATA: Blood workup as follows. WBC 7.9, hemoglobin 8.3, hematocrit 26.5, platelet count 302. Chemistry shows sodium 135, potassium 4.5, chloride 101, carbon dioxide 26, anion gap of 13. BUN 74, creatinine 3.5. IMPRESSION: Stage 4 to 5 chronic kidney disease; cardiomyopathy, severely decreased left ventricular function of 15% to 20%, ischemic; status post percutaneous transluminal coronary angioplasty of left anterior descending; history of automatic implantable cardioverter defibrillator; history of paroxysmal atrial fibrillation, on anticoagulation today. INR is supratherapeutic with 4.25. History of colostomy; history of endovascular stent; history of lung carcinoma. RECOMMENDATIONS: Hold Coumadin. Give one dose of 5 mg to prevent bleeding. Repeat PT/INR tomorrow. We will follow with you. I will give one dose of stat vitamin K because of history of the patient's bleeding in the past and INR is moving up, we will repeat INR in the morning. Thank you Dr. Palacios for providing us the opportunity in taking care of the patient, [place]. We will follow with you. Arabella Mathews MD
--- NOTE | 2017-09-14 17:06 | CP.PCM.PN ---
Subjective - Date & Time of Evaluation Date of Evaluation: 09/14/17 Time of Evaluation: 10:45 - Subjective Subjective: Comfortable in bed, no fevers, no diarrhea, no vomiting. Objective - Vital Signs/Intake and Output Vital Signs (last 24 hours): Temp Pulse Resp BP Pulse Ox 98.2 F 91 H 20 130/89 97 09/14/17 06:00 09/14/17 08:53 09/14/17 06:00 09/14/17 08:53 09/14/17 06:00 Intake and Output: 09/14/17 09/14/17 06:59 18:59 Intake Total 420 Balance 420 - Medications Medications: Current Medications Albuterol/Ipratropium (Duoneb 3 Mg/0.5 Mg (3 Ml) Ud) 3 ml IH QIDRESP [facility] Last Admin: 09/14/17 07:48 Dose: 3 ml Alprazolam (Xanax) 0.25 mg PO DAILY [facility] PRN Reason: Protocol Stop: 09/21/17 10:01 Last Admin: 09/14/17 09:05 Dose: 0.25 mg Amiodarone HCl (Cordarone) 200 mg PO DAILY [facility] Last Admin: 09/13/17 12:26 Dose: 200 mg Aspirin (Ecotrin) 81 mg PO DAILY [facility] Last Admin: 09/13/17 09:57 Dose: 81 mg Atorvastatin Calcium (Lipitor) 10 mg PO DAILY [facility] Last Admin: 09/13/17 09:57 Dose: 10 mg Calcitriol (Rocaltrol) 0.25 mcg PO MWF [facility] Last Admin: 09/12/17 09:50 Dose: 0.25 mcg Calcium Acetate (Phoslo) 667 mg PO TID [facility] Last Admin: 09/13/17 18:09 Dose: 667 mg Carvedilol (Coreg) 25 mg PO BID [facility] Last Admin: 09/13/17 18:08 Dose: 25 mg Famotidine (Pepcid) 40 mg PO HS [facility] Last Admin: 09/13/17 23:10 Dose: 40 mg Ferrous Sulfate (Feosol) 324 mg PO BID [facility] Last Admin: 09/13/17 18:09 Dose: 324 mg Finasteride (Proscar) 5 mg PO DAILY [facility] Last Admin: 09/13/17 09:58 Dose: 5 mg Furosemide (Lasix) 40 mg IVP DAILY [facility] Last Admin: 09/13/17 10:03 Dose: 40 mg Milrinone Lactate/Dextrose (Primacor 20mg/100ml D5w) 100 mls @ 6.744 mls/hr IV .[id number] PRN; Protocol; 0.28 MCG/KG/MIN PRN Reason: TITRATE PER MD ORDER Last Admin: 09/14/17 08:53 Dose: 0.28 mcg/kg/min, 6.744 mls/hr Meropenem 500 mg/ Sodium (Chloride) 50 mls @ 100 mls/hr IVPB Q12 [facility] PRN Reason: Protocol Stop: 09/17/17 10:31 Insulin Detemir (Levemir) 20 unit SC BID [facility] Last Admin: 09/13/17 18:09 Dose: 20 unit Insulin Human Regular (Humulin R Low) 0 units SC ACHS [facility] PRN Reason: Protocol Last Admin: 09/14/17 08:50 Dose: 1 units Insulin Human Regular (Humulin R) 5 units SC AC [facility] Last Admin: 09/14/17 08:51 Dose: 5 units Magnesium Oxide (Mag-Ox) 400 mg PO BID [facility] Last Admin: 09/13/17 18:09 Dose: 400 mg Methylprednisolone (Solu-Medrol) 20 mg IVP Q12 [facility] Last Admin: 09/13/17 23:11 Dose: 20 mg Multivitamins (Thera Tab) 1 tab PO DAILY [facility] Last Admin: 09/13/17 09:57 Dose: 1 tab Sodium Bicarbonate (Sodium Bicarbonate Tab) 650 mg PO TID [facility] Last Admin: 09/13/17 18:09 Dose: 650 mg Tamsulosin HCl (Flomax) 0.4 mg PO DAILY [facility] Last Admin: 09/13/17 09:57 Dose: 0.4 mg - Labs Labs: 09/14/17 07:00 09/14/17 07:00 PT 50.4 SECONDS (9.4-12.5) H 09/14/17 07:00 INR 4.25 (0.93-1.08) H* 09/14/17 07:00 APTT 34.2 Seconds (25.1-36.5) 09/09/17 22:33 - Constitutional Appears: Chronically Ill - Head Exam Head Exam: NORMAL INSPECTION - ENT Exam ENT Exam: Mucous Membranes Moist - Neck Exam Neck Exam: absent: Meningismus - Respiratory Exam Respiratory Exam: Decreased Breath Sounds - Cardiovascular Exam Cardiovascular Exam: +S1, +S2 - GI/Abdominal Exam GI & Abdominal Exam: Soft. absent: Tenderness Assessment and Plan - Assessment and Plan (Free Text) Plan: Assessment R/O multifocal HCAP UTI with ESBL Klebsiella and Proteus history of sepsis due to left upper lobe healthcare-associated pneumonia, probably atypical history of severe sepsis due to ESBL E. coli bacteremia, unclear source history of sepsis due to right sided healthcare-associated pneumonia history of UTI with carbapenem-resistant Klebsiella history of ESBL-producing Klebsiella bacteremia, secondary to the port S/P removal S/P treatment for healthcare-associated pneumonia history of C diff associated diarrhea history of UTI with yeast history healthcare-associated pneumonia Severe cardiomyopathy with EF 10-15 % paroxysmal atrial fibrillation Coronary artery disease S/P stenting history of aortic aneurysm history of SVT S/P AICD placement S/P procedure on his prostate in 2012 S/P partial colectomy and colostomy Plan continue Merrem day 5 to complete 7-10 days of therapy will continue to monitor clinically
[2017-09-15] MEDS: Milrinone 20mg/100ml D5W 100 ML IV PRN ×2 (02:48→17:34)
[2017-09-15 07:11] LABS: GRAN # 5.85 (1.4-6.5); HEMOGLOBIN 8.9 g/dL (14.0-18.0); LYMPH # 0.4 (1.2-3.4); LYMPH % 5.4 % (22.0-35.0); MEAN CELL VOLUME 80.4 fl (80.0-105.0); MEAN CORPUSCULAR HEMOGLOBIN 24.9 pg (25.0-35.0); MEAN PLATELET VOLUME 9.8 fl (7.0-11.0); MONO # 0.2 (0.1-0.6); MONO % 3.6 % (1.0-6.0); RBC 3.57 10^6/uL (3.5-6.1); WHITE BLOOD COUNT 6.4 10^3/ul (4.5-11.0)
[2017-09-15] MEDS: Albuterol-Ipratrop 3 mg / 0.5 (3 ml) UD IH SCH ×3 (07:22→15:39)
[2017-09-15 07:29] LABS: INR 2.82 (0.93-1.08); PROTHROMBIN TIME 33.1 SECONDS (9.4-12.5)
[2017-09-15 07:39] LABS: CALCIUM 9.1 mg/dL (8.4-10.5)
[2017-09-15 07:47] VITALS: BP 121/70; PULSE 96; RESP 18; TEMP 97.8; O2SAT 97
--- NOTE | 2017-09-15 08:25 | PN ---
DATE: PULMONARY PROGRESS NOTE REFERRING PHYSICIAN: Dr. Palacios. SUBJECTIVE: He is lying in the bed, sleepy, arousable, refused Xanax, had some GI bleeding in the colostomy, refused to take vitamin D, mild cough. No hemoptysis or emesis. No hematuria. No diarrhea. No leg swelling. OBJECTIVE: GENERAL: In no acute distress. VITAL SIGNS: Temperature is 98, heart rate is 95, respiratory rate is 20, blood pressure is 127/87, and pulse ox is 96% on room air. HEENT: Moist mucous membrane. Crowded airway. NECK: Supple. No JVD. LUNGS: Fair airflow with rhonchi. HEART: S1 and S2. ABDOMEN: Soft, nontender, nondistended. Colostomy bag has some dark-colored stool. EXTREMITIES: There is no edema. NEUROLOGIC: Sleepy, arousable, follows simple commands. Not cooperative today. MEDICATIONS: He is on amiodarone 200 mg daily; Coreg 25 mg twice a day; DuoNeb q.i.d.; Ecotrin 81 mg daily; ferrous sulphate 324 mg twice a day; Flomax 0.4 mg daily; insulin coverage; Lasix 40 mEq daily; Levemir 30 units twice a day; Lipitor 10 mg daily; mag oxide 400 mg twice a day; meropenem 500 mg q. 12 hours; Pepcid 40 mg daily; PhosLo 667 three times daily; IV Primacor; Proscar 5 mg daily; getting calcitriol 0.25 mg Tuesday, Tuesday, Tuesday; sodium bicarbonate 650 mg two times daily; Solu-Medrol 20 mg q. 12 hours; multivitamins daily; Xanax 0.25 mg daily p.r.n.; vitamin K 5 mg is ordered, so far patient refusing to take it. LABORATORY DATA: Shows hemoglobin 8.3, hematocrit 26.5, WBC 7.9, and platelets 302. INR 4.25. Sodium 134, potassium 4.5, chloride 101, bicarbonate 26. BUN 74, creatinine 3.5. Glucose 160. Calcium 8.8, phosphorus is 3.9, magnesium is 2.2. Urine culture has E. coli and Klebsiella pneumoniae. ASSESSMENT AND PLAN: Sepsis, probably related to urinary tract infection and chronic lung disease; resolving pneumonia; severe cardiomyopathy, milrinone dependent; pulmonary hypertension; atrial fibrillation; history of lung cancer; history of radiation therapy; right lower lobe pneumonia is resolved; gastroesophageal reflux; history of hemicolectomy and ileostomy; has a coagulopathy with INR high, has some blood in the colostomy, spoke to patient's at bedside, all the questions answered, spoke to the nursing staff. If patient does not take vitamin K, we will continue to follow. If bleeding increases, may need to give IM vitamin K. Followup of PT and INR. No Coumadin. CBC in the morning. Continue bronchodilator, aspiration precaution, sleep apnea precaution, encouraged to use CPAP. Thank you and we will follow with you. Arabella Alva MD
[2017-09-15] MEDS: Insulin Regular 1 UNITS/0.01 ML ML SC SCH ×3 (09:30→17:33)
[2017-09-15] MEDS: MethylPREDNISolone 40 mg Vial IVP SCH (09:56)
[2017-09-15] MEDS: Insulin Detemir 100 units/ml Vial (Levemir) SC SCH ×2 (09:56→16:48)
[2017-09-15] MEDS: Insulin Reg-LOW-Coverage SC SCH ×3 (09:57→16:47)
[2017-09-15] MEDS: Multivitamin Therapeutic Tab PO SCH (09:58)
[2017-09-15] MEDS: Magnesium Oxide 400 mg Tab UD PO SCH ×3 (09:58→18:57)
[2017-09-15] MEDS: Meropenem 500 MG in Sodium Chloride 0.9% 50 ML IVPB SCH (09:59)
--- NOTE | 2017-09-15 11:33 | PN ---
DATE: 09/14/2017 SUBJECTIVE: The patient seems comfortable, no respiratory distress. PHYSICAL EXAMINATION VITAL SIGNS: Temperature 98.8, heart rate 95, blood pressure 127/87, respirations 18, saturation 93% on room air. HEAD AND NECK: Normal. No JVD, no thyromegaly. CHEST: Clear. CARDIAC: First sound and second sound normal. Systolic murmur. ABDOMEN: Soft. There is a colostomy bag. No melena. EXTREMITIES: Lower extremities, no edema. NEUROLOGICAL: The patient is bedridden and wheelchair bound. He moves all extremities, but generally weak, 4/5 in the upper extremity, 3/5 in the lower extremity. LABORATORY DATA: White count 7.9, hemoglobin 8.3, hematocrit 26.5, platelets 302,000. Chemistry noted for sodium 135, potassium 4.5, chloride 101, bicarbonate 26, BUN 74, creatinine 3.5, blood sugar 160, calcium and phosphorus is normal. PT/INR: PT 50.4, INR 4.25. IMPRESSION AND PLAN 1. Urinary tract infections. The patient has Gram-negative Klebsiella pneumoniae and Escherichia coli. We will continue current treatment as per Infectious Disease consult. He is getting meropenem 500 mg intravenous q.12 plus he did have vancomycin initially. 2. Possible community-acquired pneumonia. The patient has history of underlying chronic obstructive pulmonary disease, seems stable. We will continue Merrem for now. 3. Prostate enlargement. 4. Chronic obstructive pulmonary disease. Continue IV steroids, inhaled bronchodilators. 5. Insulin-dependent diabetes. Continue insulin. Continue Levemir 20 units b.i.d. and Humalog 5 units before each meal. 6. Coronary artery disease, history of atrial fibrillation, paroxysmal atrial fibrillation. Continue Coumadin. Continue Coreg, Lasix and follow up clinically. The patient also getting IV milrinone. 7. Chronic renal failure, chronic renal insufficiency. The patient's creatinine ranges between 2 to 3, sometimes it will go up to 4 depending on diuresis, diuretic effect. At this time, continue current therapy. Follow up clinically. Dexter Palacois MD
--- NOTE | 2017-09-15 11:33 | CP.PCM.PN ---
Subjective - Date & Time of Evaluation Date of Evaluation: 09/15/17 Time of Evaluation: 10:40 - Subjective Subjective: Comfortable in bed, no fevers, no diarrhea, not in distress. Objective - Vital Signs/Intake and Output Vital Signs (last 24 hours): Temp Pulse Resp BP Pulse Ox 98.8 F 89 18 130/89 96 09/14/17 11:59 09/14/17 17:01 09/14/17 11:59 09/14/17 17:01 09/14/17 11:59 Intake and Output: 09/14/17 09/14/17 06:59 18:59 Intake Total 900 Output Total 100 Balance 800 - Medications Medications: Current Medications Albuterol/Ipratropium (Duoneb 3 Mg/0.5 Mg (3 Ml) Ud) 3 ml IH QIDRESP [facility] Last Admin: 09/14/17 15:46 Dose: 3 ml Alprazolam (Xanax) 0.25 mg PO DAILY [facility] PRN Reason: Protocol Stop: 09/21/17 10:01 Last Admin: 09/14/17 09:05 Dose: 0.25 mg Amiodarone HCl (Cordarone) 200 mg PO DAILY [facility] Last Admin: 09/14/17 09:10 Dose: 200 mg Aspirin (Ecotrin) 81 mg PO DAILY [facility] Last Admin: 09/14/17 09:11 Dose: 81 mg Atorvastatin Calcium (Lipitor) 10 mg PO DAILY [facility] Last Admin: 09/14/17 09:08 Dose: 10 mg Calcitriol (Rocaltrol) 0.25 mcg PO MWF [facility] Last Admin: 09/14/17 09:10 Dose: 0.25 mcg Calcium Acetate (Phoslo) 667 mg PO TID [facility] Last Admin: 09/14/17 17:01 Dose: 667 mg Carvedilol (Coreg) 25 mg PO BID [facility] Last Admin: 09/14/17 17:01 Dose: 25 mg Famotidine (Pepcid) 40 mg PO HS [facility] Last Admin: 09/13/17 23:10 Dose: 40 mg Ferrous Sulfate (Feosol) 324 mg PO BID [facility] Last Admin: 09/14/17 17:01 Dose: 324 mg Finasteride (Proscar) 5 mg PO DAILY [facility] Last Admin: 09/14/17 09:08 Dose: 5 mg Furosemide (Lasix) 40 mg IVP DAILY [facility] Last Admin: 09/14/17 09:13 Dose: 40 mg Milrinone Lactate/Dextrose (Primacor 20mg/100ml D5w) 100 mls @ 6.744 mls/hr IV .[id number] PRN; Protocol; 0.28 MCG/KG/MIN PRN Reason: TITRATE PER MD ORDER Last Admin: 09/14/17 08:53 Dose: 0.28 mcg/kg/min, 6.744 mls/hr Meropenem 500 mg/ Sodium (Chloride) 50 mls @ 100 mls/hr IVPB Q12 [facility] PRN Reason: Protocol Stop: 09/17/17 10:31 Last Admin: 09/14/17 09:28 Dose: 100 mls/hr Insulin Detemir (Levemir) 20 unit SC BID [facility] Last Admin: 09/14/17 09:13 Dose: 20 unit Insulin Human Regular (Humulin R Low) 0 units SC ACHS [facility] PRN Reason: Protocol Last Admin: 09/14/17 16:29 Dose: 1 units Insulin Human Regular (Humulin R) 5 units SC AC [facility] Last Admin: 09/14/17 16:29 Dose: 5 units Magnesium Oxide (Mag-Ox) 400 mg PO BID [facility] Last Admin: 09/14/17 17:01 Dose: 400 mg Methylprednisolone (Solu-Medrol) 20 mg IVP Q12 [facility] Last Admin: 09/14/17 09:11 Dose: 20 mg Multivitamins (Thera Tab) 1 tab PO DAILY [facility] Last Admin: 09/14/17 09:10 Dose: 1 tab Sodium Bicarbonate (Sodium Bicarbonate Tab) 650 mg PO TID [facility] Last Admin: 09/14/17 17:00 Dose: 650 mg Tamsulosin HCl (Flomax) 0.4 mg PO DAILY [facility] Last Admin: 09/14/17 09:08 Dose: 0.4 mg - Labs Labs: 09/14/17 07:00 09/14/17 07:00 PT 50.4 SECONDS (9.4-12.5) H 09/14/17 07:00 INR 4.25 (0.93-1.08) H* 09/14/17 07:00 APTT 34.2 Seconds (25.1-36.5) 09/09/17 22:33 - Constitutional Appears: Chronically Ill - Head Exam Head Exam: NORMAL INSPECTION - Neck Exam Neck Exam: absent: Meningismus - Respiratory Exam Respiratory Exam: Decreased Breath Sounds - Cardiovascular Exam Cardiovascular Exam: +S1, +S2 - GI/Abdominal Exam GI & Abdominal Exam: Soft. absent: Tenderness Assessment and Plan - Assessment and Plan (Free Text) Plan: Assessment R/O multifocal HCAP UTI with ESBL Klebsiella and Proteus history of sepsis due to left upper lobe healthcare-associated pneumonia, probably atypical history of severe sepsis due to ESBL E. coli bacteremia, unclear source history of sepsis due to right sided healthcare-associated pneumonia history of UTI with carbapenem-resistant Klebsiella history of ESBL-producing Klebsiella bacteremia, secondary to the port S/P removal S/P treatment for healthcare-associated pneumonia history of C diff associated diarrhea history of UTI with yeast history healthcare-associated pneumonia Severe cardiomyopathy with EF 10-15 % paroxysmal atrial fibrillation Coronary artery disease S/P stenting history of aortic aneurysm history of SVT S/P AICD placement S/P procedure on his prostate in 2012 S/P partial colectomy and colostomy Plan continue Merrem day 6 to complete 7-10 days of therapy will continue to monitor clinically
--- NOTE | 2017-09-15 13:01 | PN ---
DATE: 09/13/2017 SUBJECTIVE: Patient seems comfortable, no distress. Breathing comfortable, getting current IV antibiotic for his urosepsis. Otherwise, clinically no new complaint. PHYSICAL EXAMINATION: VITAL SIGNS: Temperature is 98.1, his heart rate 74, his blood pressure 132/82, respirations 20, saturation 98% on room air. HEAD AND NECK: Normal. No JVD. No thyromegaly. CHEST: Clear. CARDIAC: First sound and second sound normal. Systolic murmur. ABDOMEN: Soft, nontender. EXTREMITIES: No edema. NEUROLOGIC: Patient generally weak and bedridden, but he is alert, awake, and oriented. LABORATORY DATA: On 09/13/2017, his laboratory data was noted for a blood sugar of 160 to 200 range only. Blood cultures x2 were negative and urine cultures has Klebsiella pneumoniae and E. coli. IMPRESSION 1. Urinary tract infection. Continue intravenous antibiotics as per Infectious Disease recommendations. Patient is getting meropenem q. 12 hours, continue that. 2. Chronic obstructive pulmonary disease, community-acquired pneumonia. Continue the nebulizer treatment. Continue meropenem. Patient seems to be doing well breathing mercedes and then, pulmonary mercedes, saturating above 95% on room air. He is doing well. Continue nebulizer treatment. 3. Patient does have also insulin-dependent diabetes. Continue insulin 5 units before meals. Continue insulin coverage and we will increase Levemir to 20 b.i.d. 4. Coronary artery disease, ischemic cardiomyopathy . Continue milrinone IV, continue aspirin 81 mg daily, Lasix p.r.n. 5. Chronic anxiety. Continue aspirin p.o. daily. Dexter Palacios MD
--- NOTE | 2017-09-15 19:47 | PN ---
DATE: REASON FOR CONSULTATION AND FOLLOWUP: Cardiac evaluation, history of coronary artery disease, history of cardiomyopathy, admitted with abdominal pain, generalized weakness, and shortness of breath. SUBJECTIVE: Patient denies any chest pain, shortness of breath, or any palpitation. OBJECTIVE: GENERAL: Not in apparent distress. VITAL SIGNS: As follows: Temperature afebrile, heart rate 96, blood pressure 121/60. HEENT: PERRLA. Extraocular muscles are intact. NECK: Supple. No carotid bruits or thyromegaly. CHEST: Clear to auscultation. HEART: S1, S2 regular. ABDOMEN: Soft. EXTREMITIES: Clubbing and cyanosis negative. LABORATORY DATA: Blood workup as follows: WBC 6.5, hemoglobin 8.9, hematocrit 28.7, platelet count 326. Chemistry shows sodium 135, potassium 4.5, chloride 98, carbon dioxide 26, anion gap of 16, BUN 80, creatinine 3.7. ASSESSMENT: Chronic kidney disease; status post percutaneous transluminal coronary angioplasty of left anterior descending by Dr. Fransico Cabral in the past; history of automatic implantable cardioverter-defibrillator; ischemic cardiomyopathy; paroxysmal atrial fibrillation; history of stroke, status post endovascular stent ; history of lung cancer; history of colostomy; urinary tract infection. RECOMMENDATION: Continue amiodarone, continue Coreg, continue multivitamin preparation, continue aspirin, continue antibiotic. We will follow with you. Continue milrinone; patient is on, at home, milrinone for cardiomyopathy. Overall, patient's condition is critical. Long-term prognosis is extremely guarded. Thank you, Dr. Palacios, for providing the opportunity in taking care of the patient, [place]. Arabella Mathews MD
--- NOTE | 2017-09-15 21:09 | PN ---
DATE: 09/15/2017 PULMONARY PROGRESS NOTE REFERRING PHYSICIAN: Dexter Palacios MD. SUBJECTIVE: He is lying in the bed at 45 degrees. Night was unremarkable. No more GI bleed. Has a solid stool in the ileostomy. Mild cough. No sputum production. No leg pain or leg swelling. OBJECTIVE: GENERAL: In no acute distress. VITAL SIGNS: Temperature is 98, heart rate is 96, respiratory rate is 18, blood pressure 121/70, pulse ox 97% on 2 L nasal cannula. HEENT: Moist mucous membrane. Crowded airway. NECK: Supple. No JVD. LUNGS: Have a fair airflow with rhonchi. HEART: S1 and S2. ABDOMEN: Soft, nontender. No organomegaly. Colostomy bag looks okay. EXTREMITIES: There is no edema. NEUROLOGIC: Awake, alert. Follows simple command. MEDICATIONS: He is on amiodarone 200 mg daily, Coreg 25 mg twice a day, DuoNeb q.i.d., Ecotrin 81 mg daily, ferrous sulfate 324 mg twice a day, Flomax 0.4 mg daily, insulin coverage, Lasix 40 mg daily, Levemir 20 units subcu twice a day, Lipitor 10 mg daily, mag oxide 400 mg twice a day, meropenem 500 mg q. 12 hours, Pepcid 40 mg at bedtime, Primacor IV drip, Proscar 5 mg daily, calcitriol 0.24 mg Tuesday, Tuesday, Tuesday, bicarbonate 650 mg three times a day, Solu-Medrol 20 mg q. 12 hours, multivitamins daily, Xanax 0.25 mg daily. LABORATORY DATA: Shows hemoglobin 8.9, hematocrit 28.7, WBC 6.4, platelet count is 326. INR is 2.82. Sodium 135, potassium 4.5, chloride 98, bicarbonate 26, BUN is 80, creatinine 3.7, glucose is 168, calcium is 9.1. Urine has E-coli and Klebsiella pneumoniae. IMPRESSION AND PLAN: Resolving sepsis, probably urinary tract related; chronic lung disease; status post pneumonia; severe cardiomyopathy, milrinone dependent; pulmonary hypertension; atrial defibrillation; history of lung cancer; history of radiation therapy; resolved right lower lobe pneumonia; gastroesophageal reflux disease; history of hemicolectomy; ileostomy; status post gastrointestinal bleed; renal failure. No more active bleed. INR is acceptable. Continue bronchodilator as needed basis. Continue Primacor. Gastric prophylaxis. Sequential compression device to lower extremity. Aspiration precaution. Thank you and we will follow with you. Arabella Alva MD
--- NOTE | 2017-09-16 07:40 | PQF CHF ---
This form is a permanent part of the medical record Dr. Palacios, As per your 09/11PN you indicated "Acute worsening of congestive heart failure" on IV milrinone and lasix with ejection fraction 20 to 25%. Please specify the type of CHF whether systolic, diastolic OR combined. Thank you. Clarification of your documentation is requested to better reflect the severity of illness and intensity of treatment of your patient. Indicators present [x] Diagnosis of CHF and/or history of CHF [x] BNP > 200 [id number], 09/09/17 [] Imaging Finding of Pulmonary Edema /Pleural Effusions [] Fluid/Volume Overload [] Pitting edema [] Ejection Fraction < 40% (Indicative of Systolic Heart Failure) [] Ejection Fraction > 40% (Indicative of Diastolic Heart Failure) [] Dyspnea / Orthopenea / Paroxysmal Nocturnal Dyspnea [] Other: Location in the medical record that reflects the above clinical findings: [] Treatment Provided: [] milrinone and lasix PHYSICIAN'S RESPONSE Based on your medical judgment of the clinical indicators outlined above, are you treating this patient for a known or suspected: [] Acute CHF [] Systolic [] Diastolic [] Combined [] Chronic CHF [] Systolic [] Diastolic [] Combined [] Acute on Chronic CHF []Systolic [] Diastolic [] Combined [] CHF due hypertension [] Acute systolic []Chronic systolic [] Acute/ chronic systolic [] Other, please indicate: [] [] If Unable to Determine, please check the box, sign and date. Present On Admission (POA) Indicator: [] Present at the time of admission [] Not present at the time of admission [] Clinically Undetermined In responding to this query, please exercise your independent professional judgment. The fact that a question is asked does not imply that any particular answer is desired or expected. Thank you for your clarification on this documentation. If you have any questions please call:[ ] * Thank you, [ ]FABRICIO RICARDOmanager pet MERC[facility]ES
--- NOTE | 2017-09-17 07:05 | DS ---
DISCHARGE DATE: 09/15/2017 HISTORY OF PRESENT ILLNESS: The patient was admitted to the hospital with urosepsis. Patient had a chest x-ray, which shows pneumonia, was admitted for IV antibiotics for COPD exacerbation, for urosepsis and nosocomial pneumonia. Patient was put on isolation and was removed and he was also being treated for chronic systolic heart failure. Patient has been seen by multiple specialists. He is seen by compressor engineer, Dr. Alva; Cardiology, Dr. Mathews; ID, Dr. Elkins and Nephrology. Currently, patient will be discharged to TCU for continuation of therapy. Currently, he complains of no chest pain, no short of breath, no nausea, no vomiting. He seems stable and has no new complaint. He did have some anxiety, and for that reason, he got Xanax, which make him so sleepy, so we are going to hold off on that. PHYSICAL EXAMINATION: As follows; VITAL SIGNS: Temperature 97.8, heart rate 96, blood pressure 121/70, respirations 18, sat 97% on 2 liter nasal cannula. HEAD AND NECK: Normal. No JVD. No thyromegaly. CHEST: Clear bilaterally with diminished breath sounds. CARDIAC: First sound and second sound normal. Systolic murmur. ABDOMEN: Soft, nontender. Colostomy bag with normal colored stool. EXTREMITIES: No edema. NEUROLOGIC: Patient has general weakness, more in the lower extremity, is 3/5 in both legs, upper extremity is 4/5. LABORATORY STUDY: Include PT 33.1, INR 2.82. Other laboratory studies include chemistry, which shows sodium 135, potassium 4.5, chloride 98, bicarbonate 26, BUN 80, creatinine 3.7, glucose 168 and blood calcium 9.1. His CBC shows white count 6.4, hemoglobin 8.9, hematocrit 28.7, platelets is 326. Patient has influenza type A and B and is negative. DISCHARGE DIAGNOSES: 1. Urosepsis due to Gram-negative Escherichia coli and Klebsiella. We will continue intravenous antibiotics for another 7 to 10 days as per Infectious Disease consultation. Patient is getting right now meropenem. 2. Chronic congestive heart failure with acute worsening. Continue Lasix. Continue milrinone intravenously and Coreg 25 b.i.d. 3. Chronic atrial fibrillations. Continue Coumadin, warfarin. Monitor PT/INR and continue beta yimi and milrinone daily. 4. Pneumonia community-acquired seems stable. Patient does have a history of lung cancer, chronic obstructive pulmonary disease. Continue inhaled bronchodilator, intravenous steroids, and we will follow up clinically. 5. Anemia, stable. 6. Anxiety. 7. Cerebrovascular accident. 8. Insulin-dependent diabetes. Continue Levemir 20 units b.i.d. Continue Humalog 5 units before meals plus insulin low coverage. MEDICATION AT DISCHARGE NOW: Amiodarone 200 p.o. daily, Coreg 25 b.i.d., DuoNeb, Ecotrin 81, iron pills once a day 325 mg b.i.d., Flomax, insulin, 5 units Humalog before meals and insulin coverage low algorithm, Lasix 40 IV daily, Levemir 20 units b.i.d., Lipitor 10 mg once a day, mag oxide 400 mg b.i.d., Pepcid 40 mg at bedtime, PhosLo t.i.d. 667 mg, Primacor IV infusion, Proscar 5 mg daily, Calcitriol 0.25 mg Tuesday, Tuesday, Tuesday, sodium bicarb 650 q. 6 hours, and Solu-Medrol 20 mg IV q.12. Continue multivitamins. Continue Xanax. IV antibiotic will be restarted by the ID consult, and meropenem. We will transfer the patient to TCU for continuation of therapy. Dexter Palacios MD
== END 2017-09-15 18:54 | DRG 193 ==
LOC: ED 21:54 → ERH 09-10 00:02 → 3RSO 09-10 01:58 → 5RNO 09-14 17:56
PROVIDERS: ADMIT Internal Medicine; ATTEND Internal Medicine
DX: J18.9 Pneumonia, unspecified organism (principal); I50.23 Acute on chronic systolic (congestive) heart failure; I47.2 Ventricular tachycardia; N18.4 Chronic kidney disease, stage 4 (severe); J44.1 Chronic obstructive pulmonary disease with (acute) exacerbation; J44.0 Chronic obstructive pulmonary disease with (acute) lower respiratory infection; I13.0 Hypertensive heart and chronic kidney disease with heart failure and stage 1 through stage 4 chronic kidney disease, or unspecified chronic kidney disease; N39.0 Urinary tract infection, site not specified; B96.20 Unspecified Escherichia coli [E. coli] as the cause of diseases classified elsewhere; E11.22 Type 2 diabetes mellitus with diabetic chronic kidney disease; E11.51 Type 2 diabetes mellitus with diabetic peripheral angiopathy without gangrene; I27.20 Pulmonary hypertension, unspecified; I48.0 Paroxysmal atrial fibrillation; I50.9 Heart failure, unspecified; B96.1 Klebsiella pneumoniae [K. pneumoniae] as the cause of diseases classified elsewhere; I25.5 Ischemic cardiomyopathy; Z93.3 Colostomy status; Z95.5 Presence of coronary angioplasty implant and graft; Z86.73 Personal history of transient ischemic attack (TIA), and cerebral infarction without residual deficits; Z95.810 Presence of automatic (implantable) cardiac defibrillator; Z85.118 Personal history of other malignant neoplasm of bronchus and lung; E78.5 Hyperlipidemia, unspecified; D64.9 Anemia, unspecified; Z79.01 Long term (current) use of anticoagulants; I71.4 Abdominal aortic aneurysm, without rupture; Z92.3 Personal history of irradiation; K21.9 Gastro-esophageal reflux disease without esophagitis; Z74.01 Bed confinement status; Y95 Nosocomial condition; Z79.82 Long term (current) use of aspirin; Z79.4 Long term (current) use of insulin; I25.10 Atherosclerotic heart disease of native coronary artery without angina pectoris; E78.00 Pure hypercholesterolemia, unspecified; F41.9 Anxiety disorder, unspecified; N40.0 Benign prostatic hyperplasia without lower urinary tract symptoms; Z87.891 Personal history of nicotine dependence; Z93.2 Ileostomy status; Z99.3 Dependence on wheelchair; Z86.79 Personal history of other diseases of the circulatory system

== ENCOUNTER 2017-09-15 18:16 | Inpatient (IN) | payer OTHER, MEDICAID ==
[2017-09-15] MEDS ORDERED: Milrinone 20mg/100ml D5W 100 ML IV PRN ×3 (19:03→19:27)
[2017-09-15] MEDS: Albuterol-Ipratrop 3 mg / 0.5 (3 ml) UD IH SCH (19:55)
[2017-09-15] MEDS: MethylPREDNISolone 40 mg Vial IVP SCH (21:40)
[2017-09-15] MEDS: Insulin Reg-LOW-Coverage SC SCH (22:12)
[2017-09-15 23:41] VITALS: BMI 28.1
[2017-09-15] MEDS ORDERED: Influenza Vaccine 60 mcg/0.5 mL SYR (4YR UP) IM ONE (23:41)
[2017-09-15] MEDS ORDERED: Pneumococcal 23-Valent Vaccine IM ONE (23:41)
[2017-09-16] MEDS ORDERED: Meropenem 500 MG in Sodium Chloride 0.9% 50 ML IVPB SCH (06:00)
[2017-09-16] MEDS: Insulin Reg-LOW-Coverage SC SCH ×4 (06:45→21:43)
[2017-09-16] MEDS: Albuterol-Ipratrop 3 mg / 0.5 (3 ml) UD IH SCH ×3 (07:40→20:31)
[2017-09-16] MEDS: Multivitamin Therapeutic Tab PO SCH (08:53)
[2017-09-16] MEDS: Insulin Regular 1 UNITS/0.01 ML ML SC SCH ×3 (08:58→16:48)
[2017-09-16] MEDS: Insulin Detemir 100 units/ml Vial (Levemir) SC SCH ×2 (10:15→17:04)
[2017-09-16] MEDS: Milrinone 20mg/100ml D5W 100 ML IV PRN (10:16)
[2017-09-16] MEDS: Magnesium Oxide 400 mg Tab UD PO SCH ×2 (10:20→17:06)
[2017-09-16] MEDS: MethylPREDNISolone 40 mg Vial IVP SCH ×2 (10:22→17:35)
[2017-09-16] MEDS: Meropenem 500 MG in Sodium Chloride 0.9% 50 ML IVPB SCH ×4 (10:30→17:42)
--- NOTE | 2017-09-16 14:34 | RAD ---
HISTORY: CHECK PLACEMJENT OF PICC LINE COMPARISON: 09/12/2017. FINDINGS: The right PICC line terminates in the mid subclavian vein. LUNGS: There is consolidation in the right lower lobe. There is severe pulmonary venous congestion and mild interstitial pulmonary edema. PLEURA: Small pleural effusions, no pneumothorax apparent. CARDIOVASCULAR: The heart remains enlarged. There is stable position of a left-sided AICD. OSSEOUS STRUCTURES: No significant abnormalities. VISUALIZED UPPER ABDOMEN: Normal. OTHER FINDINGS: None. IMPRESSION: Right PICC line terminates in the mid subclavian vein. Right lower lobe consolidation. Mild congestive heart failure.
[2017-09-16 15:17] LABS: PH,URINE 5.5 (4.7-8.0); URINE BILIRUBIN NEGATIVE (NEGATIVE); URINE BLOOD NEGATIVE (NEGATIVE); URINE GLUCOSE (UA) NEGATIVE (NEGATIVE); URINE LEUKOCYTE ESTERASE MODERATE Leu/uL (NEGATIVE); URINE NITRATE NEGATIVE (NEGATIVE); URINE PROTEIN 100 mg/dL (<30 mg/dL); URINE UROBILINOGEN 0.2 E.U./dL (<1 E.U./dL)
[2017-09-16 15:18] LABS: URINE APPEARANCE SLIGHT-CLOUDY (CLEAR); URINE COLOR YELLOW (YELLOW)
[2017-09-16 15:27] LABS: URINE RBC NEGATIVE /hpf (0-2)
[2017-09-16 15:54] LABS: GRAN # 5.68 (1.4-6.5); GRAN % 92.7 % (50.0-68.0); HEMOGLOBIN 8.7 g/dL (14.0-18.0); LYMPH # 0.3 (1.2-3.4); LYMPH % 4.2 % (22.0-35.0); MEAN CELL VOLUME 79.9 fl (80.0-105.0); MEAN CORPUSCULAR HEMOGLOBIN 25.3 pg (25.0-35.0); MEAN CORPUSCULAR HGB CONC 31.6 g/dl (31.0-37.0); MEAN PLATELET VOLUME 9.7 fl (7.0-11.0); MONO # 0.2 (0.1-0.6); MONO % 3.1 % (1.0-6.0); RBC 3.44 10^6/uL (3.5-6.1); RED CELL DISTRIBUTION WIDTH 16.9 % (11.5-14.5); WHITE BLOOD COUNT 6.1 10^3/ul (4.5-11.0)
[2017-09-16 16:09] LABS: CALCIUM 8.8 mg/dL (8.4-10.5); MAGNESIUM 2.3 mg/dL (1.7-2.2)
--- NOTE | 2017-09-16 18:26 | CP.PCM.CON ---
History of Present Illness - History of Present Illness History of Present Illness: 72 year old male with PMH of healthcare-associated pneumonia, Severe cardiomyopathy with EF 10-15 %, paroxysmal atrial fibrillation, Coronary artery disease S/P stenting, history of aortic aneurysm, history of SVT, S/P AICD placement, S/P procedure on his prostate in 2013, S/P partial colectomy and colostomy, history of ESBL E. coli bacteremia was initially admitted in [facility] because of SOB and generalized weakness and was found to have possible HCAP and UTI with Klebsiella and Proteus which are both ESBL-producing. He has done well with antibiotics and is now transferred to [facility] for continued medical therapy and physical rehab. Infectious Diseases consult is requested to continue his antibiotics. Currently he is afebrile, no fever or chills, no nausea or vomiting , no chest pain, no SOB, no headache or dizziness, no abdominal pain, no diarrhea, no dysuria. Review of Systems - Review of Systems All systems: reviewed and no additional remarkable complaints except (as per HPI ) Past Patient History - Infectious Disease Hx of Infectious Diseases: None - Tetanus Immunizations Tetanus Immunization: Unknown - Past Medical History & Family History Past Medical History?: Yes - Past Social History Smoking Status: Former Smoker - CARDIAC Hx Congestive Heart Failure: Yes Hx Hypertension: Yes - PULMONARY Hx Chronic Obstructive Pulmonary Disease (COPD): Yes - NEUROLOGICAL HX Cerebrovascular Accident: Yes - HEENT Hx HEENT Problems: Yes - RENAL Hx Renal Failure: Yes - ENDOCRINE/METABOLIC Hx Diabetes Mellitus Type 2: Yes - HEMATOLOGICAL/ONCOLOGICAL Hx Anemia: Yes - INTEGUMENTARY Hx Dermatological Problems: Yes Other/Comment: multiple moles around neck, red raised b/l groin rash, pt unwilling to turn to assess back, multiple skin discolorations to both arms - MUSCULOSKELETAL/RHEUMATOLOGICAL Hx Falls: Yes - GASTROINTESTINAL Hx Gastrointestinal Disorders: Yes - GENITOURINARY/GYNECOLOGICAL Hx Genitourinary Disorders: Yes Hx Reproductive Disorders: No - PSYCHIATRIC Hx Depression: Yes Hx Substance Use: No - SURGICAL HISTORY Hx Surgeries: Yes (AAA repair) Hx Cardiac Catheterization: Yes Hx Open Heart Surgery: Yes - ANESTHESIA Hx Anesthesia: Yes Meds Allergies/Adverse Reactions: Allergies Allergy/AdvReac Type Severity Reaction Status Date / Time No Known Allergies Allergy Verified 09/09/17 22:00 - Medications Medications: Current Medications Albuterol/Ipratropium (Duoneb 3 Mg/0.5 Mg (3 Ml) Ud) 3 ml IH [id number] ANTHONY PRN Reason: Protocol Last Admin: 09/16/17 07:40 Dose: 3 ml Alprazolam (Xanax) 0.25 mg PO DAILY ANTHONY PRN Reason: Protocol Stop: 09/23/17 10:01 Amiodarone HCl (Cordarone) 200 mg PO DAILY ANTHONY Aspirin (Ecotrin) 81 mg PO 0800 ANTHONY PRN Reason: Protocol Last Admin: 09/16/17 08:51 Dose: 81 mg Atorvastatin Calcium (Lipitor) 10 mg PO DIN ANTHONY PRN Reason: Protocol Calcitriol (Rocaltrol) 0.25 mcg PO MWF ANTHONY PRN Reason: Protocol Calcium Acetate (Phoslo) 667 mg PO TID ANTHONY PRN Reason: Protocol Carvedilol (Coreg) 25 mg PO 0800,1800 ANTHONY PRN Reason: Protocol Last Admin: 09/16/17 08:50 Dose: 25 mg Famotidine (Pepcid) 40 mg PO HS ANTHONY PRN Reason: Protocol Last Admin: 09/15/17 21:39 Dose: 40 mg Ferrous Sulfate (Feosol) 324 mg PO BID ANTHONY PRN Reason: Protocol Finasteride (Proscar) 5 mg PO DAILY ANTHONY PRN Reason: Protocol Furosemide (Lasix) 40 mg IVP DAILY ANTHONY PRN Reason: Protocol Milrinone Lactate/Dextrose (Primacor 20mg/100ml D5w) 100 mls @ 6.744 mls/hr IV .[id number] PRN; Protocol; 0.28 MCG/KG/MIN PRN Reason: TITRATE PER MD ORDER Insulin Detemir (Levemir) 20 unit SC BID ANTHNOY PRN Reason: Protocol Insulin Human Regular (Humulin R) 5 units SC AC ANTHONY PRN Reason: Protocol Last Admin: 09/16/17 08:58 Dose: Not Given Insulin Human Regular (Humulin R Low) 0 units SC ACHS ANTHONY PRN Reason: Protocol Last Admin: 09/16/17 06:45 Dose: Not Given Magnesium Oxide (Mag-Ox) 400 mg PO BID ANTHONY PRN Reason: Protocol Methylprednisolone (Solu-Medrol) 20 mg IVP Q12 ANTHONY PRN Reason: Protocol Last Admin: 09/15/17 21:40 Dose: 20 mg Multivitamins (Thera Tab) 1 tab PO 0800 ANTHONY PRN Reason: Protocol Last Admin: 09/16/17 08:53 Dose: 1 tab Sodium Bicarbonate (Sodium Bicarbonate Tab) 650 mg PO Q6 ANTHONY PRN Reason: Protocol Last Admin: 09/16/17 05:22 Dose: 650 mg Tamsulosin HCl (Flomax) 0.4 mg PO 1830 ANTHONY PRN Reason: Protocol Physical Exam - Constitutional Appears: Chronically Ill - Head Exam Head Exam: NORMAL INSPECTION - ENT Exam ENT Exam: Mucous Membranes Moist - Neck Exam Neck exam: Positive for: Meningismus - Respiratory Exam Respiratory Exam: Decreased Breath Sounds - Cardiovascular Exam Cardiovascular Exam: +S1, +S2 - GI/Abdominal Exam GI & Abdominal Exam: Soft. absent: Tenderness Results - Vital Signs Recent Vital Signs: Last Vital Signs Temp 98.1 F 09/15/17 22:17 Pulse 78 09/15/17 22:17 Resp 20 09/15/17 22:17 BP 134/85 09/15/17 22:17 Pulse Ox 99 09/15/17 19:29 - Labs Result Diagrams: 09/16/17 15:45 09/16/17 15:45 Labs: Laboratory Results - last 24 hr 09/16/17 05:49 POC Glucose (mg/dL) 228 H Assessment & Plan - Assessment and Plan (Free Text) Plan: Assessment R/O multifocal HCAP UTI with ESBL Klebsiella and Proteus history of sepsis due to left upper lobe healthcare-associated pneumonia, probably atypical history of severe sepsis due to ESBL E. coli bacteremia, unclear source history of sepsis due to right sided healthcare-associated pneumonia history of UTI with carbapenem-resistant Klebsiella history of ESBL-producing Klebsiella bacteremia, secondary to the port S/P removal S/P treatment for healthcare-associated pneumonia history of C diff associated diarrhea history of UTI with yeast history healthcare-associated pneumonia Severe cardiomyopathy with EF 10-15 % paroxysmal atrial fibrillation Coronary artery disease S/P stenting history of aortic aneurysm history of SVT S/P AICD placement S/P procedure on his prostate in 2012 S/P partial colectomy and colostomy Plan continue Merrem day 7 to complete 7-10 days of therapy will continue to monitor clinically
--- NOTE | 2017-09-16 22:16 | CON ---
DATE: 09/16/2017 REASON FOR CONSULTATION: Lack of urine output, acute kidney injury. HISTORY OF PRESENTING ILLNESS: A 72-year-old male known to me from prior evaluations. Patient was initially admitted to the medical side on the with complaints of shortness of breath. Patient has a history of CHF, has ejection fraction of only 20%. He is on home milrinone therapy. He was thought to have pneumonia. He was treated with IV antibiotics. Now, he is being transferred to the Transitional Care Unit yesterday. Consultation is requested today because of reports there has been no urine output since 8:00 a.m. Also she complains that the patient has been lethargic and sleeping a lot. Review of his blood work shows that his creatinine was 3.0 at the time of admission and today's creatinine is 3.7. Patient does have chronic kidney disease stage IV, his baseline creatinine is around 3. PAST MEDICAL AND SURGICAL HISTORY: NIDDM; hypertension; CHF; decreased ejection fraction; recurrent pneumonia; advanced dementia; chronic kidney disease, stage IV; anemia of chronic kidney disease; permanent pacemaker; AICD; peripheral vascular disease; history of colostomy. FAMILY HISTORY: Noncontributory. SOCIAL HISTORY: No smoking, no alcohol use, no IV drug abuse. ALLERGIES: NO KNOWN DRUG ALLERGIES. CURRENT MEDICATIONS: Cordarone 200, Coreg 25 b.i.d., DuoNeb, aspirin, Feosol 325 b.i.d., Flomax 0.4, insulin, Lasix 40 IV daily, Levemir 20, Lipitor 10, mag oxide 400, Pepcid, PhosLo 667 t.i.d. with meals, milrinone, Proscar, calcitriol, sodium bicarbonate, Solu-Medrol, Theraflu, Xanax, meropenem 500 q. 12. REVIEW OF SYSTEMS: Unavailable since patient is unable to cooperate. PHYSICAL EXAMINATION: GENERAL: Elderly male, lying in bed. VITAL SIGNS: Blood pressure 128/78, heart rate 78, respiratory rate 18, temperature 98.4. HEENT: Normocephalic, atraumatic. NECK: Supple, no JVD. LUNGS: Bilateral equal air entry, bilateral equal expansion, no rales. CARDIAC: S1, S2. Regular rate and rhythm. No murmur, no rub. ABDOMEN: Obese, distended, soft, positive colostomy, bowel sounds present. EXTREMITIES: No lower extremity edema. Patient has a [place] catheter, which attached to a Grimaldo bag, which has no urine in it. LABORATORY DATA: WBC 6, hemoglobin 8.7, hematocrit 27.5, platelets 279. Sodium 131, potassium 4.5, chloride 98, CO2 25, BUN 89, creatinine 3.7, glucose 346, calcium 8.8, phosphorus 4.4, magnesium 2.3. Urinalysis, yellow, slightly cloudy, pH 5.5, specific gravity 1.015, protein 100, ketones negative, leukocyte esterase moderate, wbc's 10 to 15. Urine culture from the with E-coli and Klebsiella pneumoniae. ASSESSMENT: 1. Acute kidney injury, urinary retention. Bladder scan was ordered. Bladder scan revealed 500 mL of urine in the bladder. 2. Recent urinary tract infection. 3. Non-insulin dependent diabetes mellitus, poor control of glucose. 4. Hypertension. 5. Congestive heart failure, cardiomyopathy, decreased ejection fraction, home milrinone therapy. 6. Advanced dementia. 7. Recurrent episodes of acute kidney injury in the setting of urinary tract infection. PLAN: 1. Place Grimaldo. 2. Expect creatinine to come down with relief of urinary retention. 3. Continue antibiotics as per ID recommendations. 4. Avoid nephrotoxins. 5. Monitor electrolytes. Kaylen Crump MD
--- NOTE | 2017-09-16 23:14 | CON ---
DATE: 09/16/2017 LOCATION: Patient in room 315, bed 1, Transitional Care Unit. REASON FOR CONSULTATION AND FOLLOWUP: History of coronary artery disease, cardiomyopathy, admitted with abdominal pain, generalized weakness, shortness of breath, on medical floor. Now, he is better, so now he is admitted to Transitional Care Unit for deconditioning and physical therapy. HISTORY OF PRESENT ILLNESS: A 72-year-old male with past medical history of CHF, coronary artery disease, status post stent in LAD, status post PTCA, history of ischemic cardiomyopathy, status post posterior ICD insertion, history of multiple admissions for decompensated congestive heart failure, history of colostomy, history of lung CA, history of pneumonia, history of type 2 diabetes, was admitted to medical floor with abdominal pain, generalized weakness, and shortness of breath. Patient was treated, he felt better and was transferred to Transitional Care Unit for deconditioning. Patient is lying flat in bed without any chest pain, shortness of breath, or palpitation. PAST MEDICAL HISTORY: Significant for ischemic cardiomyopathy, was on home milrinone drip; history of COPD; history of lung CA; history of recurrent pneumonia; history of urinary tract infection; history of colostomy; history of CVA; history of abdominal aortic aneurysm post endovascular stent; history of paroxysmal atrial fibrillation, on Coumadin; history of renal insufficiency; history of PTCA of LAD by Dr. Fransico Cabral in the past. PERSONAL HISTORY: No history of smoking or alcohol abuse. MEDICATIONS AT HOME: Included Lasix 40 p.o. daily, Pepcid 40 daily, Coumadin 2 mg daily, Flomax 0.4 mg daily, multivitamin tablet, magnesium, carvedilol 25 mg b.i.d., calcitriol, atorvastatin 10 mg daily, Baby Aspirin 81 mg daily. REVIEW OF SYSTEMS: All other systems reviewed, positive mentioned in the history, otherwise negative. ALLERGIES: PATIENT DENIES ANY ALLERGIES. PHYSICAL EXAMINATION: VITAL SIGNS: Patient's temperature 98.2, blood pressure 134/85, respiration 20, pulse 90. HEENT: Head is normocephalic. Eyes: Pupils are normal. Conjunctivae slightly pale. NECK: JVP low. Carotids are equal. Thorax, AP diameter normal. LUNGS: No rales. CARDIOVASCULAR: S1 and S2. ABDOMEN: Soft. No tenderness. No organomegaly. Bowel sounds are normal. EXTREMITIES: No clubbing. No cyanosis. LABORATORY DATA: WBC 6.1, hemoglobin 8.7, hematocrit 27.5, platelets 279. Sodium 131, potassium 4.5, BUN 89, creatinine 3.7, random sugar 365. Magnesium 2.3, calcium 8.8, phosphorus 4.4. Chest x-ray showed consolidation in the right lower lobe, pulmonary congestion, mild interstitial pulmonary edema. EKG on 09/09/2017, sinus tachycardia with fusion complexes, incomplete left bundle-branch block, left posterior fascicular block, nonspecific ST-T changes. DIAGNOSES: Congestive heart failure, left ventricular systolic dysfunction, coronary artery disease, history of angioplasty, stent insertion, ischemic cardiomyopathy, left ventricular ejection fraction 20% to 25% on previous workup, paroxysmal atrial fibrillation, status post automatic implantable cardioverter-defibrillator insertion, abdominal aortic aneurysm, status post endovascular stenting, history of lung cancer, status post colostomy, generalized weakness, anemia. PLAN: Patient is on amiodarone 200 mg p.o. daily; carvedilol 25 mg p.o. b.i.d.; aspirin 81 daily; ferrous sulfate 324 b.i.d.; Lasix 40 mg IV daily; insulin as ordered; Lipitor 10 mg p.o. daily; magnesium oxide 400 mg p.o. b.i.d.; Merrem 500 mg IV b.i.d.; Pepcid 40 mg at bedtime; PhosLo 667 mg p.o. t.i.d.; milrinone drip; Proscar 5 mg daily; calcitriol 0.25 mcg p.o. Tuesday, Tuesday and Tuesday; sodium bicarbonate 650 p.o. q.6 hours; methylprednisolone 20 mg IV b.i.d.; we will increase Lasix to 40 mg IV b.i.d. We will follow with you. Arabella Lopez MD
[2017-09-17] MEDS: Albuterol-Ipratrop 3 mg / 0.5 (3 ml) UD IH SCH ×4 (01:39→20:02)
[2017-09-17] MEDS: Milrinone 20mg/100ml D5W 100 ML IV PRN ×2 (01:48→17:41)
[2017-09-17] MEDS: Meropenem 500 MG in Sodium Chloride 0.9% 50 ML IVPB SCH ×2 (05:30→17:36)
[2017-09-17] MEDS: MethylPREDNISolone 40 mg Vial IVP SCH ×2 (05:31→17:37)
--- NOTE | 2017-09-17 06:20 | CON ---
DATE: 09/16/2017 REFERRING PHYSICIAN: Dexter Palacios MD REASON FOR CONSULTATION: Shortness of breath, chronic obstructive lung disease, lung cancer. HISTORY OF PRESENT ILLNESS: This is a 72-year-old gentleman, well known to me in previous admission and most recently from the acute site admission, has known multiple medical issues including severe cardiomyopathy, Primacor dependent, chronic obstructive lung disease, lung cancer, unresectable, requiring radiation therapy, history of laparotomy, hemicolectomy, ileostomy, recurrent GI bleed, has a coronary artery disease with multiple coronary stents, also has recurrent UTI, was admitted to acute site of the hospital, transferred to TICU for continued care. He is lying in the bed, sleepy, arousable, is at bedside. Also, son is present. He does have some cough. No sputum production. No chest pain. No nausea, no vomiting, no diarrhea. No more bleed in the colostomy, no leg swelling. PAST MEDICAL HISTORY: As per history present illness. ALLERGIES: None known. SOCIAL HISTORY: Nonsmoker, nondrinker. FAMILY HISTORY: No significant cardiopulmonary disease reported. MEDICATIONS: He is on amiodarone 200 mg daily, Coreg 25 mg twice a day, Coumadin is 1.5 mg daily, DuoNeb q.6h, Ecotrin 81 mg daily, ferrous sulfate 324 mg twice a day, Flomax 0.4 mg daily, insulin coverage, Lasix 40 mg IV twice a day, Levemir 20 units b.i.d., Lipitor 10 mg daily, mag oxide 400 mg twice a day, meropenem 500 mg twice a day, Pepcid 40 mg daily, calcium acetate 667 three times a day, milrinone IV drip, Proscar 5 mg daily, Calcitriol 0.25 mg, Tuesday, Tuesday and Tuesday, sodium bicarbonate 650 mg q.6h., Solu-Medrol is 20 mg q.12h., multivitamins daily. REVIEW OF SYSTEM: No headache, no rhinitis. Has occasional cough, short of breath with exertion. No chest pain. No nausea, no abdominal pain. No dysuria. No leg pain. No leg swelling. PHYSICAL EXAMINATION: VITAL SIGNS: Temperature is 98, heart rate is 89, respiratory rate is 20, blood pressure 113/76, pulse ox 98% on nasal cannula. HEENT: Moist mucous membrane. Crowded airway. NECK: Short thick. LUNGS: Has a fair airflow with rhonchi. HEART: S1 and S2. ABDOMEN: Soft, nontender. No organomegaly. Ileostomy bag working well. EXTREMITIES: There is no edema. NEUROLOGIC: Awake and follows simple commands. LABORATORY DATA: Shows hemoglobin 8.7, hematocrit 27.5, WBC 6.1, platelet is 279. Sodium 131, potassium 4.5, chloride 98, bicarbonate 25, BUN 89, creatinine 3.7, glucose 365, calcium 8.8, phosphorus is 4.4, magnesium 2.3. Influenza serology is negative. Urine has E-coli and Klebsiella pneumoniae. IMPRESSION AND PLAN: Resolving sepsis, urinary tract infection, chronic lung disease, has a lung cancer, severe cardiomyopathy, milrinone dependent, pulmonary hypertension, atrial fibrillation, history of radiation therapy, resolved right lower lobe pneumonia, gastroesophageal reflux disease, history of hemicolectomy, ileostomy. Case discussed with the and the son in detail. Continue bronchodilator, keep at 45 degrees, antibiotics. Spoke to nursing staff to get him out of bed to chair if possible, avoid all the sedation. SCD to lower extremity. Follow up INR. Thank you and we will follow with you. Arabella Alva MD
[2017-09-17] MEDS: Insulin Regular 1 UNITS/0.01 ML ML SC SCH ×3 (06:44→17:30)
[2017-09-17] MEDS: Insulin Reg-LOW-Coverage SC SCH ×4 (06:45→21:48)
[2017-09-17] MEDS: Multivitamin Therapeutic Tab PO SCH (08:06)
[2017-09-17] MEDS: Magnesium Oxide 400 mg Tab UD PO SCH ×2 (10:26→17:36)
[2017-09-17] MEDS: Insulin Detemir 100 units/ml Vial (Levemir) SC SCH ×3 (10:52→17:34)
[2017-09-17] MEDS ORDERED: Darbepoetin Alfa 60 mcg/ml Inj SC ONE (11:39)
--- NOTE | 2017-09-17 13:52 | PN ---
DATE: 09/17/2017 SUBJECTIVE: The patient is seen lying in bed. He is arousable. He does not appear to have any kind of distress. PHYSICAL EXAMINATION: GENERAL: Elderly male, lying in bed. VITAL SIGNS: Blood pressure 127/90, heart rate 94, respiratory rate 20, and temperature 98.3. HEENT: Normocephalic, atraumatic. NECK: Supple, no JVD. LUNGS: Bilateral equal air entry, bilateral equal expansion, no rales. CARDIAC: S1 and S2, regular rate and rhythm, no murmur. ABDOMEN: Soft, nondistended, nontender, positive colostomy, bowel sounds present. EXTREMITIES: No lower extremity edema. INTAKE AND OUTPUT: 100/750 LABORATORY DATA: Sodium 136, potassium 4.4, chloride 101, CO2 of 24. BUN 99, creatinine 3.9. Glucose 309, calcium 9.0. CURRENT MEDICATIONS: Cordarone, Coreg, Coumadin, DuoNeb, Ecotrin, Feosol, Flomax, insulin, Lasix 40 IV b.i.d., Levemir, Lipitor, mag oxide, meropenem 500 q.12, Pepcid, PhosLo, milrinone, Proscar, sodium bicarbonate 650 q.6, Solu-Medrol. ASSESSMENT: 1. Acute kidney injury superimposed on chronic kidney disease stage 4, etiology combination of urinary retention and prerenal azotemia. 2. History of congestive heart failure , cardiomyopathy, home milrinone therapy,. 3. Gav-[id number]-[id number] diabetes mellitus. 4. Hypertension. 5. Coronary artery disease. 6. Secondary hyperparathyroidism. 7. Pneumonia. 8. Anemia of chronic kidney disease. PLAN: 1. Change Lasix to 40 mg IV daily, not b.i.d. 2. Avoid over diuresis. 3. Avoid nephrotoxins. 4. Check iron stores. 5. Aranesp 60 mcg subcu today. 6. Monitor electrolytes. 7. Needs better glycemic control. Kaylen Crump MD
--- NOTE | 2017-09-17 14:51 | PN ---
DATE: REASON FOR CONSULTATION AND FOLLOWUP: History of coronary artery disease, cardiomyopathy, admitted with abdominal pain, generalized pain, now continuation of the care in transitional care unit. SUBJECTIVE: The patient denies any chest pain, shortness of breath, or any palpitation. OBJECTIVE: GENERAL: Not in apparent distress. VITAL SIGNS: Temperature afebrile, heart rate 94, and blood pressure 127/90. HEENT: PERRLA. Extraocular muscles intact. NECK: Supple. No carotid bruit. No thyromegaly. CHEST: Clear to auscultation. HEART: S1 and S2, regular. ABDOMEN: Soft. EXTREMITIES: Clubbing and cyanosis negative. LABORATORY DATA: Blood workup as follows; WBC 6.2, hemoglobin 8.3, hematocrit 27.5, platelet count 279. Chemistry shows sodium 137, potassium 4.4, chloride 101, carbon dioxide 24, anion gap of 15. BUN 19, creatinine 3.9. IMPRESSION: Chronic kidney disease; creatinine clearance 15 mL; cardiomyopathy, ischemic; ejection fraction 15% to 20%; coronary artery disease, status post percutaneous transluminal coronary angioplasty, status post automatic implantable cardioverter-defibrillator; paroxysmal atrial fibrillation; lung cancer; status post colostomy; history of abdominal aortic aneurysm, status post endovascular repair. RECOMMENDATION: Continue anticoagulation. Goal is to keep INR 2 to 2.5. Continue carvedilol. Continue amiodarone. Continue aspirin. We will repeat the blood workup. We will Repeat PT/INR in the morning. Thank you Dr. Palacios for providing us the opportunity in taking care of the patient, [place]. Arabella Mathews MD cc: Dexter Palacios MD
--- NOTE | 2017-09-17 17:06 | CP.PCM.PN ---
Subjective - Date & Time of Evaluation Date of Evaluation: 09/17/17 Time of Evaluation: 10:40 - Subjective Subjective: Comfortable in bed, no fevers, not in distress. Objective - Vital Signs/Intake and Output Vital Signs (last 24 hours): Temp Pulse Resp BP Pulse Ox 97.8 F 89 18 113/76 98 09/16/17 10:00 09/16/17 10:16 09/16/17 10:00 09/16/17 17:41 09/16/17 10:00 - Medications Medications: Current Medications Albuterol/Ipratropium (Duoneb 3 Mg/0.5 Mg (3 Ml) Ud) 3 ml IH [id number] ANTHONY PRN Reason: Protocol Last Admin: 09/16/17 13:29 Dose: 3 ml Alprazolam (Xanax) 0.25 mg PO DAILY ANTHONY PRN Reason: Protocol Stop: 09/23/17 10:01 Last Admin: 09/16/17 10:49 Dose: 0.25 mg Amiodarone HCl (Cordarone) 200 mg PO DAILY ANTHONY Last Admin: 09/16/17 10:21 Dose: 200 mg Aspirin (Ecotrin) 81 mg PO 0800 ANTHONY PRN Reason: Protocol Last Admin: 09/16/17 08:51 Dose: 81 mg Atorvastatin Calcium (Lipitor) 10 mg PO DIN ANTHONY PRN Reason: Protocol Last Admin: 09/16/17 17:05 Dose: 10 mg Calcitriol (Rocaltrol) 0.25 mcg PO MWF ANTHONY PRN Reason: Protocol Last Admin: 09/16/17 10:19 Dose: 0.25 mcg Calcium Acetate (Phoslo) 667 mg PO TID ANTHONY PRN Reason: Protocol Last Admin: 09/16/17 17:08 Dose: 667 mg Carvedilol (Coreg) 25 mg PO 0800,1800 ANTHONY PRN Reason: Protocol Last Admin: 09/16/17 17:04 Dose: 25 mg Famotidine (Pepcid) 40 mg PO HS ANTHONY PRN Reason: Protocol Last Admin: 09/15/17 21:39 Dose: 40 mg Ferrous Sulfate (Feosol) 324 mg PO BID ANTHONY PRN Reason: Protocol Last Admin: 09/16/17 17:06 Dose: 324 mg Finasteride (Proscar) 5 mg PO DAILY ANTHONY PRN Reason: Protocol Last Admin: 09/16/17 10:20 Dose: 5 mg Furosemide (Lasix) 40 mg IV BID ANTHONY Last Admin: 09/16/17 17:41 Dose: 40 mg Milrinone Lactate/Dextrose (Primacor 20mg/100ml D5w) 100 mls @ 6.744 mls/hr IV .[id number] PRN; Protocol; 0.28 MCG/KG/MIN PRN Reason: TITRATE PER MD ORDER Last Admin: 09/16/17 10:16 Dose: 0.28 mcg/kg/min, 6.744 mls/hr Meropenem 500 mg/ Sodium (Chloride) 50 mls @ 100 mls/hr IVPB 0600,1800 ANTHONY PRN Reason: Protocol Last Admin: 09/16/17 17:42 Dose: Not Given Insulin Detemir (Levemir) 20 unit SC BID ANTHONY PRN Reason: Protocol Last Admin: 09/16/17 17:04 Dose: 20 unit Insulin Human Regular (Humulin R) 5 units SC AC NATHONY PRN Reason: Protocol Last Admin: 09/16/17 16:48 Dose: 5 units Insulin Human Regular (Humulin R Low) 0 units SC ACHS ANTHONY PRN Reason: Protocol Last Admin: 09/16/17 16:49 Dose: 5 units Magnesium Oxide (Mag-Ox) 400 mg PO BID ANTHONY PRN Reason: Protocol Last Admin: 09/16/17 17:06 Dose: Not Given Methylprednisolone (Solu-Medrol) 20 mg IVP 0600,1800 ANTHONY PRN Reason: Protocol Last Admin: 09/16/17 17:35 Dose: 20 mg Multivitamins (Thera Tab) 1 tab PO 0800 ANTHONY PRN Reason: Protocol Last Admin: 09/16/17 08:53 Dose: 1 tab Sodium Bicarbonate (Sodium Bicarbonate Tab) 650 mg PO Q6 ANTHONY PRN Reason: Protocol Last Admin: 09/16/17 17:35 Dose: 650 mg Tamsulosin HCl (Flomax) 0.4 mg PO 1830 ANTHONY PRN Reason: Protocol Last Admin: 09/16/17 17:35 Dose: 0.4 mg - Labs Labs: 09/16/17 15:45 09/16/17 15:45 - Constitutional Appears: Chronically Ill - Head Exam Head Exam: NORMAL INSPECTION - ENT Exam ENT Exam: Mucous Membranes Moist - Neck Exam Neck Exam: absent: Meningismus - Respiratory Exam Respiratory Exam: Decreased Breath Sounds - Cardiovascular Exam Cardiovascular Exam: +S1, +S2 - GI/Abdominal Exam GI & Abdominal Exam: Soft. absent: Tenderness Assessment and Plan - Assessment and Plan (Free Text) Plan: Assessment R/O multifocal HCAP UTI with ESBL Klebsiella and Proteus history of sepsis due to left upper lobe healthcare-associated pneumonia, probably atypical history of severe sepsis due to ESBL E. coli bacteremia, unclear source history of sepsis due to right sided healthcare-associated pneumonia history of UTI with carbapenem-resistant Klebsiella history of ESBL-producing Klebsiella bacteremia, secondary to the port S/P removal S/P treatment for healthcare-associated pneumonia history of C diff associated diarrhea history of UTI with yeast history healthcare-associated pneumonia Severe cardiomyopathy with EF 10-15 % paroxysmal atrial fibrillation Coronary artery disease S/P stenting history of aortic aneurysm history of SVT S/P AICD placement S/P procedure on his prostate in 2012 S/P partial colectomy and colostomy Plan continue Merrem day 8 to complete 7-10 days of therapy will continue to monitor clinically
--- NOTE | 2017-09-17 23:46 | PN ---
DATE: 09/17/2017 PULMONARY PROGRESS NOTE REFERRING PHYSICIAN: Dr. Dexter Palacios. SUBJECTIVE: He is lying in the bed, sleepy during the daytime. Refused to use CPAP/BiPAP. Mild cough. No sputum production. No nausea. No vomiting. No abdominal pain. No leg pain or leg swelling. OBJECTIVE: GENERAL: In no acute distress. VITAL SIGNS: Temp is 98, heart rate is 86, respiratory rate is 18, blood pressure 119/82, pulse ox 98% on nasal cannula. HEENT: Moist mucous membrane. Crowded airway. Mallampati score is IV. NECK: Supple. No JVD. LUNGS: Have fair airflow with rhonchi. HEART: S1, S2. ABDOMEN: Soft, ileostomy bag working well, nontender. EXTREMITIES: There is no edema. NEUROLOGIC: Sleepy, arousable. Follows simple command. MEDICATIONS: He is on amiodarone 200 mg daily, Coreg 25 mg twice a day, Coumadin 1.5 mg will be given today, DuoNeb q.6 hours, Ecotrin 81 mg daily, ferrous sulfate 325 mg twice a day, Flomax 0.4 mg daily, insulin coverage, Lasix 40 mg IV daily, Levemir is units subcu twice a day, Lipitor 10 mg daily, magnesium oxide 400 mg twice a day, meropenem 500 mg q.12 hours, Pepcid 40 mg daily, PhosLo, also on Primacor IV drip, Proscar 5 mg daily, sodium bicarbonate 650 mg q.6 hours., Solu-Medrol 20 mg q.12 hours and multivitamins daily. LABORATORY DATA: Shows sodium 136, potassium 4.4, chloride 101, bicarbonate 24, BUN 99, creatinine 3.9, glucose 370, calcium is 9.0 and ferritin is 50. IMPRESSION AND PLAN: Resolving sepsis, urinary tract infection, chronic obstructive lung disease, history of lung cancer, severe cardiomyopathy, milrinone dependent, pulmonary hypertension, atrial fibrillation, history of radiation therapy to the lung, left lower lobe infiltrate, gastroesophageal reflux disease, history of hemicolectomy and ileostomy. Spoke to patient and patient's in detail about daytime sleepiness in relation to sleep apnea syndrome. Spoke to nursing staff. Encouraged to use CPAP tonight. Keep head at 45 degrees. Avoid sedation. Antibiotics as per Infectious Diseases. Anticoagulation. INR in the morning. Out of bed to chair if possible, being followed by Infectious Diseases, Cardiology and Nephrology. Thank you and we will follow with you. Arabella Alva MD
[2017-09-18] MEDS: Albuterol-Ipratrop 3 mg / 0.5 (3 ml) UD IH SCH ×4 (03:00→20:36)
[2017-09-18] MEDS: Meropenem 500 MG in Sodium Chloride 0.9% 50 ML IVPB SCH ×2 (05:17→18:17)
[2017-09-18] MEDS: Milrinone 20mg/100ml D5W 100 ML IV PRN (06:09)
[2017-09-18] MEDS: MethylPREDNISolone 40 mg Vial IVP SCH ×2 (06:11→19:04)
[2017-09-18] MEDS: Insulin Regular 1 UNITS/0.01 ML ML SC SCH ×3 (06:50→18:13)
[2017-09-18] MEDS: Insulin Reg-LOW-Coverage SC SCH ×4 (06:52→21:46)
[2017-09-18 07:02] LABS: IRON 104 ug/dL (45-180)
[2017-09-18 07:11] LABS: % IRON SATURATION 39 % (20-55); TOTAL IRON BINDING CAPACITY 268 ug/dL (261-462)
[2017-09-18 07:35] LABS: INR 1.74 (0.93-1.08); PROTHROMBIN TIME 20.2 SECONDS (9.4-12.5)
[2017-09-18] MEDS: Multivitamin Therapeutic Tab PO SCH (08:55)
[2017-09-18 11:40] LABS: CALCIUM 9.2 mg/dL (8.4-10.5)
[2017-09-18] MEDS: Magnesium Oxide 400 mg Tab UD PO SCH ×2 (11:41→18:17)
[2017-09-18] MEDS: Insulin Detemir 100 units/ml Vial (Levemir) SC SCH ×2 (11:41→18:16)
[2017-09-18 14:40] LABS: CALCIUM 8.5 mg/dL (8.4-10.5)
--- NOTE | 2017-09-18 16:40 | CP.PCM.PN ---
Subjective - Date & Time of Evaluation Date of Evaluation: 09/18/17 Time of Evaluation: 10:50 - Subjective Subjective: Comfortable, afebrile. Objective - Vital Signs/Intake and Output Vital Signs (last 24 hours): Temp Pulse Resp BP Pulse Ox 97.7 F 86 18 119/82 98 09/17/17 16:28 09/17/17 16:28 09/17/17 16:28 09/17/17 16:28 09/17/17 16:28 Intake and Output: 09/17/17 09/17/17 06:59 18:59 Intake Total 100 Output Total 750 500 Balance -650 -500 - Medications Medications: Current Medications Albuterol/Ipratropium (Duoneb 3 Mg/0.5 Mg (3 Ml) Ud) 3 ml IH [id number] ANTHONY PRN Reason: Protocol Last Admin: 09/17/17 13:21 Dose: 3 ml Amiodarone HCl (Cordarone) 200 mg PO DAILY ANTHONY Last Admin: 09/17/17 10:23 Dose: 200 mg Aspirin (Ecotrin) 81 mg PO 0800 ANTHONY PRN Reason: Protocol Last Admin: 09/17/17 08:05 Dose: 81 mg Atorvastatin Calcium (Lipitor) 10 mg PO DIN ANTHONY PRN Reason: Protocol Last Admin: 09/16/17 17:05 Dose: 10 mg Calcitriol (Rocaltrol) 0.25 mcg PO MWF ANTHONY PRN Reason: Protocol Last Admin: 09/16/17 10:19 Dose: 0.25 mcg Calcium Acetate (Phoslo) 667 mg PO TID ANTHONY PRN Reason: Protocol Last Admin: 09/17/17 14:08 Dose: 667 mg Carvedilol (Coreg) 25 mg PO 0800,1800 ANTHONY PRN Reason: Protocol Last Admin: 09/17/17 08:05 Dose: 25 mg Famotidine (Pepcid) 40 mg PO HS ANTHONY PRN Reason: Protocol Last Admin: 09/16/17 21:36 Dose: 40 mg Ferrous Sulfate (Feosol) 324 mg PO BID ANTHONY PRN Reason: Protocol Last Admin: 09/17/17 10:24 Dose: 324 mg Finasteride (Proscar) 5 mg PO DAILY ANTHONY PRN Reason: Protocol Last Admin: 09/17/17 10:26 Dose: 5 mg Furosemide (Lasix) 40 mg IV DAILY ANTHONY Milrinone Lactate/Dextrose (Primacor 20mg/100ml D5w) 100 mls @ 6.744 mls/hr IV .[id number] PRN; Protocol; 0.28 MCG/KG/MIN PRN Reason: TITRATE PER MD ORDER Last Admin: 09/17/17 01:48 Dose: 0.28 mcg/kg/min, 6.744 mls/hr Meropenem 500 mg/ Sodium (Chloride) 50 mls @ 100 mls/hr IVPB 0600,1800 [facility] PRN Reason: Protocol Last Admin: 09/17/17 05:30 Dose: 100 mls/hr Insulin Detemir (Levemir) 30 unit SC BID ANTHONY Last Admin: 09/17/17 12:02 Dose: 30 unit Insulin Human Regular (Humulin R) 5 units SC AC ANTHONY PRN Reason: Protocol Last Admin: 09/17/17 12:22 Dose: 5 units Insulin Human Regular (Humulin R Low) 0 units SC ACHS ANTHONY PRN Reason: Protocol Last Admin: 09/17/17 12:24 Dose: 5 units Magnesium Oxide (Mag-Ox) 400 mg PO BID ANTHONY PRN Reason: Protocol Last Admin: 09/17/17 10:26 Dose: 400 mg Methylprednisolone (Solu-Medrol) 20 mg IVP 0600,1800 ANTHONY PRN Reason: Protocol Last Admin: 09/17/17 05:31 Dose: 20 mg Multivitamins (Thera Tab) 1 tab PO 0800 ANTHONY PRN Reason: Protocol Last Admin: 09/17/17 08:06 Dose: 1 tab Sodium Bicarbonate (Sodium Bicarbonate Tab) 650 mg PO Q6 ANTHONY PRN Reason: Protocol Last Admin: 09/17/17 14:08 Dose: 650 mg Tamsulosin HCl (Flomax) 0.4 mg PO 1830 ANTHONY PRN Reason: Protocol Last Admin: 09/16/17 17:35 Dose: 0.4 mg Warfarin Sodium (Coumadin) 1.5 mg PO 1800 ANTHONY PRN Reason: Protocol Last Admin: 09/16/17 21:35 Dose: 1.5 mg - Labs Labs: 09/16/17 15:45 09/17/17 10:30 - Constitutional Appears: Chronically Ill - Head Exam Head Exam: NORMAL INSPECTION - Neck Exam Neck Exam: absent: Meningismus - Respiratory Exam Respiratory Exam: Decreased Breath Sounds - Cardiovascular Exam Cardiovascular Exam: +S1, +S2 - GI/Abdominal Exam GI & Abdominal Exam: Soft. absent: Tenderness Assessment and Plan - Assessment and Plan (Free Text) Plan: Assessment R/O multifocal HCAP UTI with ESBL Klebsiella and Proteus history of sepsis due to left upper lobe healthcare-associated pneumonia, probably atypical history of severe sepsis due to ESBL E. coli bacteremia, unclear source history of sepsis due to right sided healthcare-associated pneumonia history of UTI with carbapenem-resistant Klebsiella history of ESBL-producing Klebsiella bacteremia, secondary to the port S/P removal S/P treatment for healthcare-associated pneumonia history of C diff associated diarrhea history of UTI with yeast history healthcare-associated pneumonia Severe cardiomyopathy with EF 10-15 % paroxysmal atrial fibrillation Coronary artery disease S/P stenting history of aortic aneurysm history of SVT S/P AICD placement S/P procedure on his prostate in 2012 S/P partial colectomy and colostomy Plan continue Merrem day 9 to complete 10 days of therapy will continue to monitor clinically
--- NOTE | 2017-09-18 16:53 | PN ---
DATE: REASON FOR CONSULTATION AND FOLLOWUP: History of coronary artery disease, cardiomyopathy, admitted with abdominal pain, generalized pain, now continuity of the care in transitional care unit, cardiology consult and followup. SUBJECTIVE: The patient denies any chest pain, shortness of breath, or any palpitation. is at the bedside. OBJECTIVE: GENERAL: Not in apparent distress, lying flat in the bed. Earlier, the patient was eating the breakfast. VITAL SIGNS: Temperature afebrile, heart rate 86, blood pressure 111/72. HEENT: PERRLA. Extraocular muscles intact. NECK: Supple. No carotid bruit or thyromegaly. CHEST: Clear to auscultation. HEART: S1 and S2, regular. ABDOMEN: Soft. EXTREMITIES: Clubbing and cyanosis negative. LABORATORY DATA: Blood workup as follows: WBC 6.2, hemoglobin 8.3, hematocrit 27.5, and platelet count 279. Chemistry shows sodium on 09/17/2017, of 133, potassium 4.4, chloride 101, carbon dioxide 24, anion gap of 15. BUN 19, creatinine 3.9. IMPRESSION: Chronic kidney disease, creatinine clearance 15, yesterday creatinine was 3.9; acute kidney injury on chronic renal insufficiency; diabetes; hypertension; hyperlipidemia; abdominal aortic aneurysm, status post endovascular stent; history of lung cancer; history of colostomy; last ejection fraction 15% to 20%; history of coronary artery disease, status post stent; history of a stent in LAD . RECOMMENDATION: Continue gentle diuretics. Continue carvedilol. Continue amiodarone 200 mg daily. Continue Coumadin. Goal is INR to keep around 2 to 2.5. The patient is getting 1.5 of Coumadin, continue 1.5. Continue albuterol. Continue aspirin. Continue ferrous sulfate. Repeat blood workup in the morning. We will follow with you. Thank you Dr. Palacios for providing us the opportunity in taking care of the patient, Destin Gallegos. Arabella Mathews MD
--- NOTE | 2017-09-18 19:56 | PN ---
DATE: 09/18/2017 SUBJECTIVE: Patient is seen lying in bed. He is awake, he is alert. He does not appear to be in any kind of distress. PHYSICAL EXAMINATION: VITAL SIGNS: Blood pressure 124/79, heart rate 83, respiratory rate 16, temperature 98. HEENT: Normocephalic, atraumatic, positive pallor. NECK: Supple, no JVD. LUNGS: Bilateral equal air entry, bilateral equal expansion. CARDIAC: S1 and S2. Regular rate and rhythm. No murmur, no rub. ABDOMEN: Obese, distended, soft, nontender, positive colostomy. Bowel sounds present. EXTREMITIES: No lower extremity edema. INTAKE AND OUTPUT: 200/1550 LABORATORY DATA: Sodium 135, potassium 4.6, chloride 99, CO2 23, BUN 106, creatinine 3.4, glucose 223, calcium 8.5. MEDICATIONS: List reviewed. ASSESSMENT: 1. Acute kidney injury superimposed on chronic kidney disease, stage IV, largely prerenal azotemia. 2. Anemia of chronic kidney disease. 3. History of coronary artery disease, congestive heart failure, cardiomyopathy. 4. Advanced dementia. 5. Secondary hyperparathyroidism. PLAN: 1. Continue Lasix 40 IV daily, further reduced to 40 mg p.o. daily soon. 2. Prerenal azotemia, slowly improving. 3. Continue PhosLo and calcitriol. 4. Continue Aranesp 60 mcg weekly. Kaylen Crump MD
--- NOTE | 2017-09-19 01:14 | PN ---
DATE: 09/18/2017 PULMONARY PROGRESS NOTE REFERRING PHYSICIAN: Dr. Palacios SUBJECTIVE: Patient is lying in the bed, sleepy. Does not use CPAP/BiPAP at nighttime. No cough, no sputum production. No chest pain. No abdominal pain. No leg pain or leg swelling. OBJECTIVE: GENERAL: In no acute distress. VITAL SIGNS: Temperature is 98, heart rate is 94, respiratory rate is 20, blood pressure 104/74. HEENT: Moist mucous membrane. Crowded airway. NECK: Supple. No JVD. LUNGS: Have fair airflow with rhonchi. HEART: S1, S2. ABDOMEN: Soft, nontender. No organomegaly. EXTREMITIES: There is no much edema. NEUROLOGIC: Sleepy, arousable. Follows simple command. LABORATORY DATA: Reviewed. Sodium 135, potassium 4.6, chloride 99, bicarbonate 23, BUN 106, creatinine 3.4, glucose 277, calcium 8.5. MEDICATIONS: He is on amiodarone 200 mg daily, Coreg 25 mg twice a day, Coumadin 1.5 mg will be given today, DuoNeb q.6 hours, Ecotrin 800 mg daily, ferrous sulfate 325 mg twice a day, Flomax 0.4 mg daily, insulin coverage, Lasix 40 mg daily, Levemir 30 units subcu twice a day, Lipitor 10 mg daily, mag oxide 400 mg twice a day, meropenem 1 g IV q. 12 hours Pepcid 40 mg daily, PhosLo 667 three times a day, Primacor IV drip, Proscar 5 mg daily, calcitriol 0.25 mcg Tuesday, Tuesday, Tuesday, sodium bicarbonate 650 mg q.6 hours, Solu-Medrol 20 mg twice a day, multivitamins daily. IMPRESSION AND PLAN: Resolving sepsis, urinary tract infection, chronic obstructive lung disease, history of lung cancer, severe cardiomyopathy, milrinone dependent, pulmonary hypertension, atrial fibrillation, history of radiation therapy in the past, left lower lobe infiltrate, gastroesophageal reflux disease, history of hemicolectomy in the past, has ileostomy. From a Pulmonary point of view doing okay. I spoke to patient's at bedside, all their questions answered. Continue to encourage CPAP/BiPAP use at nighttime. Keep head at 45 degrees. Continue anticoagulation, INR in the morning. May start daytime stimulant. Out of bed to chair if possible. Follow up in the morning. Thank you and we will follow with you. Arabella Alva MD
[2017-09-19] MEDS: Albuterol-Ipratrop 3 mg / 0.5 (3 ml) UD IH SCH ×4 (01:18→21:37)
[2017-09-19] MEDS: Meropenem 500 MG in Sodium Chloride 0.9% 50 ML IVPB SCH ×2 (05:12→17:05)
[2017-09-19] MEDS: MethylPREDNISolone 40 mg Vial IVP SCH ×2 (05:14→17:06)
[2017-09-19] MEDS: Milrinone 20mg/100ml D5W 100 ML IV PRN ×2 (05:43→15:38)
[2017-09-19] MEDS: Insulin Regular 1 UNITS/0.01 ML ML SC SCH ×3 (06:43→17:02)
[2017-09-19] MEDS: Insulin Reg-LOW-Coverage SC SCH ×4 (06:44→22:49)
[2017-09-19 07:11] LABS: GRAN # 6.16 (1.4-6.5); GRAN % 88.7 % (50.0-68.0); HEMOGLOBIN 8.9 g/dL (14.0-18.0); LYMPH # 0.5 (1.2-3.4); LYMPH % 6.5 % (22.0-35.0); MEAN CELL VOLUME 79.9 fl (80.0-105.0); MEAN CORPUSCULAR HEMOGLOBIN 24.8 pg (25.0-35.0); MEAN PLATELET VOLUME 10.1 fl (7.0-11.0); MONO # 0.3 (0.1-0.6); MONO % 4.8 % (1.0-6.0); RBC 3.59 10^6/uL (3.5-6.1); RED CELL DISTRIBUTION WIDTH 16.9 % (11.5-14.5); WHITE BLOOD COUNT 6.9 10^3/ul (4.5-11.0)
[2017-09-19 07:26] LABS: INR 2.37 (0.93-1.08); PROTHROMBIN TIME 27.7 SECONDS (9.4-12.5)
[2017-09-19] MEDS: Multivitamin Therapeutic Tab PO SCH (08:32)
[2017-09-19] MEDS: Insulin Detemir 100 units/ml Vial (Levemir) SC SCH (10:46)
[2017-09-19] MEDS: Magnesium Oxide 400 mg Tab UD PO SCH ×2 (10:47→17:05)
[2017-09-19 11:35] LABS: MAGNESIUM 2.5 mg/dL (1.7-2.2)
--- NOTE | 2017-09-19 11:52 | PN ---
DATE: 09/17/2017 SUBJECTIVE: The patient is doing better. He is feeling better. He is weak, sleepy. He is off Xanax. Blood sugar is still running high. Otherwise seems doing well. PHYSICAL EXAMINATION: VITAL SIGNS: His temperature is 98.3, heart rate is 86, blood pressure is 127/90, respirations 18, saturation 98% on nasal cannula. HEAD AND NECK: Normal. No JVD. No thyromegaly. CHEST: Clear. CARDIAC: First sound and second sound normal. Systolic ejection murmur. ABDOMEN: Soft. There is colostomy bag. EXTREMITIES: No edema. NEUROLOGIC: Normal. LABORATORY STUDIES: On 09/17/2017, sodium 136, potassium 4.4, chloride 101, bicarbonate 24. BUN 99, creatinine 3.9. Blood sugar 309. Calcium was 9. CBC: There is no CBC on 09/17/2017. IMPRESSION AND PLAN: 1. Urosepsis. Continue IV meropenem, stable. 2. Chronic renal failure. Creatinine is high. We decreased the Lasix to once a day. Follow up with nephrology consult. 3. Chronic obstructive pulmonary disease. Continue nebulizer treatment. 4. Hypertension. Stable. 5. Coronary artery disease, ischemic cardiomyopathy, and congestive heart failure. Continue IV milrinone, Coreg, and aspirin. 6. History of paroxysmal atrial fibrillation. INR is therapeutic. Continue Coumadin. We will decrease to 1.5 mg once a day. Repeat PT/INR. 7. Generalized weakness. History of cerebrovascular accident. History of colostomy, abdominal aortic aneurysm repair. Continue current therapy. Follow up clinically. Dexter Palacios MD
--- NOTE | 2017-09-19 12:15 | PN ---
DATE: 09/16/2017 SUBJECTIVE: The patient is comfortable, in no distress. Getting IV antibiotics. No new complaints. Feeling weak, sleepy. Otherwise, no new complaints. PHYSICAL EXAMINATION: VITAL SIGNS: On 09/16/2017, is as follows; temperature 98, heart rate is 89, blood pressure 124/84, respirations 18, saturation 98%. HEAD AND NECK: Normal. No JVD, no thyromegaly. CHEST: Clear. Good air entry. CARDIAC: First sound and second sound normal. Systolic murmur. ABDOMEN: Soft, nontender with colostomy bag. EXTREMITIES: No edema. NEUROLOGICAL: Moves extremities, generally weak, upper extremity 4/5, lower extremity 3/5. Patient is mildly sleepy, lethargic, but he open his eyes and respond properly. LABORATORY DATA: White count 6.1, hemoglobin 8.7, hematocrit 27.5, and platelets 279. His chemistry is as follows: Sodium 131, potassium 4.5, chloride 98, bicarbonate 25. BUN 89, creatinine 3.7. Blood sugar 346. Magnesium 2.3, phosphorus 4.4. IMPRESSION AND PLAN: 1. Urosepsis. Continue IV antibiotics. Patient is getting meropenem IV 500 mg q.12 and we will follow up with the ID consultations. 2. Diabetes, uncontrolled. We will increase his Levemir to 25 units b.i.d. We will see how he do. Continue insulin coverage. 3. Hypertension, stable. 4. Coronary artery disease, ischemic cardiomyopathy, congestive heart failure. Continue IV milrinone. 5. Chronic obstructive pulmonary disease. Continue IV steroids for COPD and nebulizer treatment. PLAN: Continue current therapy. Current medications; amiodarone 200 once a day, Coreg 25 b.i.d., Coumadin 1.5 mg p.o. daily, DuoNeb, aspirin 81, iron pills once a day, Flomax once a day, insulin coverage 5 units before meals, Lasix 40 IV twice a day was reduced to once a day, Levemir 25 b.i.d., Lipitor 10 mg p.o. at bedtime, magnesium once a day, meropenem 500 b.i.d., milrinone IV, Proscar 5 mg p.o. daily, sodium bicarb b.i.d., and Solu-Medrol b.i.d. Continue multivitamin once a day. Continue current therapy. Dexter Palacios MD
--- NOTE | 2017-09-19 13:16 | PN ---
DATE: 09/19/2017 LOCATION: The patient is in room 315, bed 1. REASON FOR CONSULTATION AND FOLLOWUP: History of coronary artery disease, cardiomyopathy, admitted with abdominal pain, generalized pain, now the patient in transitional care unit for deconditioning. SUBJECTIVE: The patient is lying flat in bed without chest pain, shortness of breath, or palpitation. PHYSICAL EXAMINATION: VITAL SIGNS: Blood pressure 119/68, respirations 18, patient afebrile, heart rate 93. HEENT: Head is normocephalic. Eyes: Pupils normal. Conjunctivae slightly pale. NECK: JVP low. Carotids are equal. THORAX: AP diameter normal. LUNGS: No significant rales. CARDIOVASCULAR: S1 and S2. ABDOMEN: Patient has colostomy. PERIPHERIES: No clubbing. No cyanosis. LABORATORY DATA: WBC 6.9, hemoglobin 8.9, hematocrit 28.7, and platelets 253. Sodium 135, potassium 4.6. BUN 106, creatinine 3.4. Random sugar 179, another glucose level 223. Calcium 8.5. DIAGNOSES: [id number] kidney disease; diabetes; hypertension; hyperlipidemia; history of abdominal aortic aneurysm, status post endovascular stent; history of lung cancer; history of colostomy; last echocardiogram showed ejection fraction of 15% to 20%; history of coronary artery disease, status post stent insertion; ischemic cardiomyopathy; congestive heart failure due to left ventricular systolic dysfunction. The patient on amiodarone 200 mg daily; carvedilol 25 b.i.d.; aspirin 81 daily; ferrous sulfate 324 mg p.o. b.i.d.; Flomax 0.4 daily; furosemide 40 IV daily; insulin as ordered; Lipitor 10 mg daily; mag oxide 400 mg p.o. b.i.d.; meropenem 500 mg IV b.i.d.; armodafinil 150 mg p.o. daily; Pepcid 40 mg p.o. at bedtime; calcium acetate 667 mg p.o. t.i.d.; milrinone drip; Proscar 5 mg daily; calcitriol 0.25 mcg p.o. Tuesday, Tuesday, and Tuesday; methylprednisolone 20 mg IV b.i.d. We will continue present therapy. We will do a portable chest x-ray tomorrow to see improvement of CHF. Arabella Lopez MD [facility] # [id number]
--- NOTE | 2017-09-19 17:00 | CP.PCM.PN ---
Subjective - Date & Time of Evaluation Date of Evaluation: 09/19/17 Time of Evaluation: 11:45 - Subjective Subjective: No fevers, not in distress. Objective - Vital Signs/Intake and Output Vital Signs (last 24 hours): Temp Pulse Resp BP Pulse Ox 97.7 F 83 18 124/79 98 09/17/17 16:28 09/18/17 11:29 09/17/17 16:28 09/18/17 11:29 09/17/17 16:28 Intake and Output: 09/18/17 09/18/17 06:59 18:59 Intake Total 100 Output Total 1050 Balance -950 - Medications Medications: Current Medications Albuterol/Ipratropium (Duoneb 3 Mg/0.5 Mg (3 Ml) Ud) 3 ml IH [id number] ANTHONY PRN Reason: Protocol Last Admin: 09/18/17 13:55 Dose: 3 ml Amiodarone HCl (Cordarone) 200 mg PO DAILY ANTHONY Last Admin: 09/18/17 11:29 Dose: 200 mg Aspirin (Ecotrin) 81 mg PO 0800 ANTHONY PRN Reason: Protocol Last Admin: 09/18/17 08:53 Dose: 81 mg Atorvastatin Calcium (Lipitor) 10 mg PO DIN ANTHONY PRN Reason: Protocol Last Admin: 09/17/17 17:35 Dose: 10 mg Calcitriol (Rocaltrol) 0.25 mcg PO MWF ANTHONY PRN Reason: Protocol Last Admin: 09/16/17 10:19 Dose: 0.25 mcg Calcium Acetate (Phoslo) 667 mg PO TID ANTHONY PRN Reason: Protocol Last Admin: 09/18/17 14:58 Dose: 667 mg Carvedilol (Coreg) 25 mg PO 0800,1800 ANTHONY PRN Reason: Protocol Last Admin: 09/18/17 08:51 Dose: 25 mg Famotidine (Pepcid) 40 mg PO HS ANTHONY PRN Reason: Protocol Last Admin: 09/17/17 21:03 Dose: 40 mg Ferrous Sulfate (Feosol) 324 mg PO BID ANTHONY PRN Reason: Protocol Last Admin: 09/18/17 11:33 Dose: 324 mg Finasteride (Proscar) 5 mg PO DAILY ANTHONY PRN Reason: Protocol Last Admin: 09/18/17 11:42 Dose: 5 mg Furosemide (Lasix) 40 mg IVP DAILY ANTHONY Last Admin: 09/18/17 11:00 Dose: 40 mg Milrinone Lactate/Dextrose (Primacor 20mg/100ml D5w) 100 mls @ 6.744 mls/hr IV .[id number] PRN; Protocol; 0.28 MCG/KG/MIN PRN Reason: TITRATE PER MD ORDER Last Admin: 09/18/17 06:09 Dose: 0.28 mcg/kg/min, 6.744 mls/hr Meropenem 500 mg/ Sodium (Chloride) 50 mls @ 100 mls/hr IVPB 0600,1800 ANTHONY PRN Reason: Protocol Last Admin: 09/18/17 05:17 Dose: 100 mls/hr Insulin Detemir (Levemir) 30 unit SC BID [facility] Last Admin: 09/18/17 11:41 Dose: 30 unit Insulin Human Regular (Humulin R) 5 units SC AC ANTHONY PRN Reason: Protocol Last Admin: 09/18/17 06:50 Dose: 5 units Insulin Human Regular (Humulin R Low) 0 units SC ACHS ANTHONY PRN Reason: Protocol Last Admin: 09/18/17 06:52 Dose: 1 units Magnesium Oxide (Mag-Ox) 400 mg PO BID ANTHONY PRN Reason: Protocol Last Admin: 09/18/17 11:41 Dose: 400 mg Methylprednisolone (Solu-Medrol) 20 mg IVP 0600,1800 ANTHONY PRN Reason: Protocol Last Admin: 09/18/17 06:11 Dose: 20 mg Multivitamins (Thera Tab) 1 tab PO 0800 ANTHONY PRN Reason: Protocol Last Admin: 09/18/17 08:55 Dose: 1 tab Sodium Bicarbonate (Sodium Bicarbonate Tab) 650 mg PO Q6 ANTHONY PRN Reason: Protocol Last Admin: 09/18/17 11:43 Dose: 650 mg Tamsulosin HCl (Flomax) 0.4 mg PO 1830 ANTHONY PRN Reason: Protocol Last Admin: 09/17/17 17:30 Dose: 0.4 mg Warfarin Sodium (Coumadin) 1.5 mg PO 1800 ANTHONY PRN Reason: Protocol Last Admin: 09/17/17 17:28 Dose: 1.5 mg - Labs Labs: 09/16/17 15:45 09/18/17 14:20 PT 20.2 SECONDS (9.4-12.5) H 09/18/17 06:30 INR 1.74 (0.93-1.08) H 09/18/17 06:30 - Constitutional Appears: Chronically Ill - Head Exam Head Exam: NORMAL INSPECTION - Neck Exam Neck Exam: absent: Meningismus - Respiratory Exam Respiratory Exam: Decreased Breath Sounds - Cardiovascular Exam Cardiovascular Exam: +S1, +S2 - GI/Abdominal Exam GI & Abdominal Exam: Soft. absent: Tenderness Assessment and Plan - Assessment and Plan (Free Text) Plan: Assessment R/O multifocal HCAP UTI with ESBL Klebsiella and Proteus history of sepsis due to left upper lobe healthcare-associated pneumonia, probably atypical history of severe sepsis due to ESBL E. coli bacteremia, unclear source history of sepsis due to right sided healthcare-associated pneumonia history of UTI with carbapenem-resistant Klebsiella history of ESBL-producing Klebsiella bacteremia, secondary to the port S/P removal S/P treatment for healthcare-associated pneumonia history of C diff associated diarrhea history of UTI with yeast history healthcare-associated pneumonia Severe cardiomyopathy with EF 10-15 % paroxysmal atrial fibrillation Coronary artery disease S/P stenting history of aortic aneurysm history of SVT S/P AICD placement S/P procedure on his prostate in 2012 S/P partial colectomy and colostomy Plan continue Merrem day 10 to complete 10 days of therapy will continue to monitor clinically
--- NOTE | 2017-09-19 22:42 | PN ---
DATE: 09/19/2017 SUBJECTIVE: Patient is seen lying in bed. is at bedside. PHYSICAL EXAMINATION: VITAL SIGNS: Blood pressure 105/75, heart rate 82, respiratory rate 18, temperature 97.8. HEENT: Normocephalic, atraumatic. NECK: Supple, no JVD. LUNGS: Bilateral equal air entry. Clear to auscultation anteriorly. CARDIAC: S1 and S2. Regular rate and rhythm. No murmur, no rub. ABDOMEN: Obese, distended, soft, positive colostomy. EXTREMITIES: No lower extremity edema, positive edema of the left upper extremity. INTAKE AND OUTPUT: 420/1300. LABORATORY DATA: WBC 6.9, hemoglobin 8.9, hematocrit 29, platelets 253. Sodium 135, potassium 4.2, chloride 99, CO2 27, BUN 106, creatinine 3.9, glucose 170, calcium 9.0, phosphorus 4.3, magnesium 2.5. CURRENT MEDICATIONS: Cordarone, Coreg, Coumadin, DuoNeb, Ecotrin, Feosol, Primacor, Proscar, Rocaltrol, sodium bicarbonate, multivitamins, Pepcid, Flomax, insulin, Lasix 40 IV push daily. ASSESSMENT: 1. Acute kidney injury, suspect prerenal azotemia, we will hold Lasix. 2. Congestive heart failure, cardiomyopathy, continue milrinone therapy. 3. Status post pneumonia. 4. Advanced chronic kidney disease, stage IV. 5. Secondary hyperparathyroidism. 6. Severe anemia. PLAN: 1. Hold Lasix. 2. Monitor urine output. 3. Monitor creatinine and BUN. 4. Avoid nephrotoxins. 5. Status post Aranesp yesterday. 6. Monitor fingersticks. 7. Continue oral iron. 8. Discontinue magnesium. Kaylen Crump MD
--- NOTE | 2017-09-20 02:07 | PN ---
DATE: 09/19/2017 PULMONARY PROGRESS NOTE REFERRING PHYSICIAN: Dr. Palacios. SUBJECTIVE: The patient is lying in the bed, head at 45 degrees. Much more awake and alert today. Cough is better. No nausea. No vomiting. No diarrhea. No abdominal pain. No leg pain or leg swelling. OBJECTIVE: GENERAL: In no acute distress. VITAL SIGNS: Temp is 98, heart rate is 82, respiratory rate is 18, blood pressure 105/75, pulse ox 99% on nasal cannula. HEENT: Moist mucous membrane. Crowded airway. NECK: Supple. No JVD. LUNGS: Have fair airflow with few rhonchi. HEART: S1, S2. ABDOMEN: Soft, nontender. No organomegaly. Ileostomy bag looks okay. EXTREMITIES: There is no edema. NEUROLOGIC: Awake, alert. Follows simple command. MEDICATIONS: He is on amiodarone 200 mg daily, Coreg 25 mg twice a day, Coumadin 1.5 mg will be given tonight, DuoNeb q.6 hours, Ecotrin 81 mg daily, ferrous sulfate 324 mg twice a day, Flomax 0.4 mg daily, insulin coverage, Lasix 40 mg daily, Levemir 30 units subcu twice a day, Lipitor 10 mg daily, meropenem 500 mg q.12 hours, Nuvigil 150 mg daily in the morning, Pepcid 40 mg daily, Primacor IV drip, Proscar 5 mg daily, sodium bicarbonate 650 mg q.6 hours, Solu-Medrol 20 mg twice a day and multivitamins daily. LABORATORY DATA: Shows hemoglobin 8.9, hematocrit 28.7, WBC 6.9, platelet is 253. INR 2.37. Sodium 135, potassium 4.2, chloride 99, bicarbonate 27, BUN 106, creatinine 3.9, glucose 170, calcium is 9.0, phosphorus 4.3, magnesium 2.5. IMPRESSION AND PLAN: Resolving sepsis, urinary tract infection, chronic obstructive lung disease, lung cancer, severe cardiomyopathy, milrinone dependent, pulmonary hypertension, atrial fibrillation, history of radiation therapy to the lung, left lower lobe infiltrate, gastroesophageal reflux disease, history of hemicolectomy, has ileostomy, sleep apnea syndrome, noncompliant with CPAP/BiPAP, daytime sleepy and tired. Nuvigil is started, feels much better today. We will decrease Solu-Medrol to 20 mg daily. Keep head at 45 degrees. Bronchodilators, on anticoagulation. Follow up INR. High risk for pressure ulcers. Out of bed to chair if possible. Fall precaution. Thank you and we will follow up with you. Arabella Alva MD
[2017-09-20] MEDS: Albuterol-Ipratrop 3 mg / 0.5 (3 ml) UD IH SCH ×4 (03:10→20:04)
[2017-09-20] MEDS: Meropenem 500 MG in Sodium Chloride 0.9% 50 ML IVPB SCH (05:33)
[2017-09-20] MEDS: Milrinone 20mg/100ml D5W 100 ML IV PRN (05:56)
[2017-09-20] MEDS ORDERED: MethylPREDNISolone 40 mg Vial IVP SCH ×2 (06:00→10:00)
[2017-09-20] MEDS: Insulin Regular 1 UNITS/0.01 ML ML SC SCH ×3 (06:53→17:51)
[2017-09-20] MEDS: Insulin Reg-LOW-Coverage SC SCH ×4 (06:53→21:29)
--- NOTE | 2017-09-20 07:46 | CP.PCM.PN ---
Subjective - Date & Time of Evaluation Date of Evaluation: 09/20/17 Time of Evaluation: 06:40 - Subjective Subjective: Reason for consultation and follow up: Cardiomyopathy, Congestive heart failure , admitted for generalized abdominal pain, now in TCU for deconditioning Seen and examined by me and Dr. Lopez Lying in bed, awake and responsive to verbal commands, nod to be doing okay, denies chest pain or shortness of breath Objective - Vital Signs/Intake and Output Vital Signs (last 24 hours): Temp Pulse Resp BP Pulse Ox 97.8 F 93 H 18 116/76 100 09/19/17 17:42 09/20/17 05:56 09/19/17 17:42 09/20/17 05:56 09/19/17 17:42 Intake and Output: 09/20/17 09/20/17 06:59 18:59 Intake Total 580 120 Output Total 600 275 Balance -20 -155 - Medications Medications: Current Medications Albuterol/Ipratropium (Duoneb 3 Mg/0.5 Mg (3 Ml) Ud) 3 ml IH [id number] ANTHONY PRN Reason: Protocol Last Admin: 09/20/17 07:39 Dose: 3 ml Amiodarone HCl (Cordarone) 200 mg PO DAILY ANTHONY Last Admin: 09/19/17 10:44 Dose: 200 mg Armodafinil (Nuvigil 150 Mg Tab) 150 mg PO DAILY ANTHONY Last Admin: 09/19/17 10:36 Dose: 150 mg Aspirin (Ecotrin) 81 mg PO 0800 ANTHONY PRN Reason: Protocol Last Admin: 09/19/17 08:27 Dose: 81 mg Atorvastatin Calcium (Lipitor) 10 mg PO DIN ANTHONY PRN Reason: Protocol Last Admin: 09/19/17 17:03 Dose: 10 mg Calcitriol (Rocaltrol) 0.25 mcg PO MWF ANTHONY PRN Reason: Protocol Last Admin: 09/19/17 10:48 Dose: 0.25 mcg Calcium Acetate (Phoslo) 667 mg PO TID ANTHONY PRN Reason: Protocol Last Admin: 09/19/17 17:06 Dose: 667 mg Carvedilol (Coreg) 25 mg PO 0800,1800 ANTHONY PRN Reason: Protocol Last Admin: 09/19/17 17:03 Dose: 25 mg Famotidine (Pepcid) 40 mg PO HS ANTHONY PRN Reason: Protocol Last Admin: 09/19/17 22:50 Dose: 40 mg Ferrous Sulfate (Feosol) 324 mg PO BID ANTHONY PRN Reason: Protocol Last Admin: 09/19/17 17:04 Dose: 324 mg Finasteride (Proscar) 5 mg PO DAILY ANTHONY PRN Reason: Protocol Last Admin: 09/19/17 10:48 Dose: 5 mg Furosemide (Lasix) 40 mg IVP DAILY ANTHONY Last Admin: 09/19/17 10:53 Dose: 40 mg Milrinone Lactate/Dextrose (Primacor 20mg/100ml D5w) 100 mls @ 6.744 mls/hr IV .[id number] PRN; Protocol; 0.28 MCG/KG/MIN PRN Reason: TITRATE PER MD ORDER Last Admin: 09/20/17 05:56 Dose: 0.28 mcg/kg/min, 6.744 mls/hr Meropenem 500 mg/ Sodium (Chloride) 50 mls @ 100 mls/hr IVPB 0600,1800 ANTHONY PRN Reason: Protocol Last Admin: 09/20/17 05:33 Dose: 100 mls/hr Insulin Detemir (Levemir) 30 unit SC BID ANTHONY Last Admin: 09/19/17 10:46 Dose: 30 unit Insulin Human Regular (Humulin R) 5 units SC AC ANTHONY PRN Reason: Protocol Last Admin: 09/20/17 06:53 Dose: 5 units Insulin Human Regular (Humulin R Low) 0 units SC ACHS ANTHONY PRN Reason: Protocol Last Admin: 09/20/17 06:53 Dose: 1 units Methylprednisolone (Solu-Medrol) 20 mg IVP 0600 ANTHONY PRN Reason: Protocol Last Admin: 09/20/17 05:40 Dose: 20 mg Multivitamins (Thera Tab) 1 tab PO 0800 ANTHONY PRN Reason: Protocol Last Admin: 09/19/17 08:32 Dose: 1 tab Sodium Bicarbonate (Sodium Bicarbonate Tab) 650 mg PO Q6 ANTHONY PRN Reason: Protocol Last Admin: 09/20/17 05:34 Dose: 650 mg Tamsulosin HCl (Flomax) 0.4 mg PO 1830 ANTHONY PRN Reason: Protocol Last Admin: 09/19/17 17:34 Dose: 0.4 mg Warfarin Sodium (Coumadin) 1.5 mg PO 1800 ANTHONY PRN Reason: Protocol Last Admin: 09/19/17 17:04 Dose: 1.5 mg - Labs Labs: 09/19/17 06:30 09/19/17 11:01 PT 27.7 SECONDS (9.4-12.5) H 09/19/17 06:30 INR 2.37 (0.93-1.08) H 09/19/17 06:30 - Constitutional Appears: No Acute Distress - Head Exam Head Exam: NORMAL INSPECTION - Eye Exam Eye Exam: Normal appearance Pupil Exam: NORMAL ACCOMODATION - Neck Exam Neck Exam: Normal Inspection - Respiratory Exam Respiratory Exam: Decreased Breath Sounds, Clear to Ausculation Bilateral, NORMAL BREATHING PATTERN - Cardiovascular Exam Cardiovascular Exam: REGULAR RHYTHM, +S1, +S2 Additional comments: has colostomy - GI/Abdominal Exam GI & Abdominal Exam: Soft, Diminished Bowel Sounds - Extremities Exam Extremities Exam: Normal Inspection - Neurological Exam Neurological Exam: Alert, Awake - Psychiatric Exam Psychiatric exam: Normal Affect, Normal Mood Assessment and Plan - Assessment and Plan (Free Text) Assessment: Impression: Ischemic cardiomyopathy, Congestive heart failure due to left ventricular systolic dysfunction, hypertension, diabetes mellitus, chronic kidney disease, history of abdominal aortic aneurysm, hx of endovascular stent, Last Echo EF 15 % to 20%. Plan: Continue Amiodarone 200 mg daily,Carvedilol 25 mg BID,ASA 81 mg OD,Lipitor 10 mg OD,Lasix 40 mg OD- K Level today 4.0. Replace potassium as needed. Good urine output.Milrinone drip. Check chest xray today.Diurese as needed. Will follow up. Plan and treatment reviewed with Dr. Lopez
[2017-09-20] MEDS: Multivitamin Therapeutic Tab PO SCH (08:28)
--- NOTE | 2017-09-20 08:52 | RAD ---
HISTORY: Compare to see improvement of CHF. COMPARISON: 09/16/2017 FINDINGS: LUNGS: There is no change in vascular congestion and bilateral perihilar infiltrates PLEURA: No significant pleural effusion identified, no pneumothorax apparent. CARDIOVASCULAR: Normal. OSSEOUS STRUCTURES: No significant abnormalities. VISUALIZED UPPER ABDOMEN: Normal. OTHER FINDINGS: None. IMPRESSION: No change in vascular congestion and bilateral perihilar infiltrates
[2017-09-20] MEDS: Insulin Detemir 100 units/ml Vial (Levemir) SC SCH ×2 (10:27→17:51)
--- NOTE | 2017-09-20 10:45 | PN ---
DATE: 09/19/2017 SUBJECTIVE: The patient was seen in TCU. Seems doing well, sitting on a chair. More alert, awake, oriented. He is getting IV antibiotic, IV fluids. Seems doing well, currently on IV meropenem 500 b.i.d. The patient has no complaint. No respiratory distress. Explained to the the patient's condition and the results of the urine culture, which came back finally negative. PHYSICAL EXAMINATION: VITAL SIGNS: Temperature 97, heart rate 82, blood pressure 105/75, respirations 18, saturations 100%. HEAD AND NECK: Normal. No JVD. No thyromegaly. CHEST: Clear. Good air entry. CARDIAC: First sound and second sound normal. There is systolic ejection murmur. ABDOMEN: Soft. Colostomy bag and nontender. EXTREMITIES: No edema. NEUROLOGIC: The patient is generally weak. He is wheelchair bound and bedridden, but he does move upper extremities, 4/5. LABORATORY DATA: His laboratory study came back as follows; white count 6.9, hemoglobin 8.9, hematocrit 28.7, platelet is 253. His chemistry noted for sodium 135, potassium 4.2, chloride 99, bicarb 27, BUN 106, creatinine 3.9 and blood sugar 170, magnesium 2.5, phosphorus 4.3. We will monitor his creatinine. Maybe we will hold the dose of Lasix for 1 day, that is probably prerenal. IMPRESSION AND PLAN: 1. Urinary tract infection, urosepsis. Continue IV meropenem. Follow up with ID consultations. 2. The patient has chronic obstructive pulmonary disease, history of recurrent pneumonia, lung cancer, chronic obstructive pulmonary disease. Continue nebulizer treatment, inhaled bronchodilators. Seems stable. 3. Chronic systolic heart failure. Continue IV milrinone. Continue Lasix, Coreg and baby aspirin. 4. Chronic atrial fibrillations, history of deep venous thrombosis, upper extremities. We will continue Coumadin. The patient's PT/INR therapeutic is 2.37. 5. History of cerebrovascular accident, generalized weakness. Continue supportive care. History of colostomy. Continue colostomy change. At this time, we will continue current therapy. He is on Xanax and I see Pulmonology start him on Nuvigil, maybe difficult to get him as outpatient Nuvigil. We will see maybe Provigil will be easier to get. We will continue current therapy. Continue gastrointestinal prophylaxis. 6. Insulin-dependent diabetes. Sugar is better now. It is coming down. Continue insulin Levemir twice a day 30 units plus 5 units before meals and low algorithm. Continue multivitamins, Solu-Medrol 20 b.i.d., will be tapered down gradually and we will follow up clinically on daily basis. Dexter Palacios MD
[2017-09-20] MEDS ORDERED: Nystatin 100,000 Units/gm Topical Pow(15 gm) TOP SCH (14:00)
--- NOTE | 2017-09-20 19:33 | PN ---
DATE: 09/20/2017 SUBJECTIVE: Patient is in room 315. Patient is seen early this morning. No fevers. No chills. No nausea. PHYSICAL EXAMINATION: VITAL SIGNS: Temperature is 97, blood pressure is 116/70, respiratory rate of 18. HEENT: Unremarkable, NECK: Supple. LUNGS: Have decreased breath sounds. HEART: Normal S1, S2. ABDOMEN: Soft. LABORATORY EXAMINATION: Reveals a white count of 6.9, hemoglobin of 8, platelets of 253. Chemistries reveal the patient has a BUN of 106, creatinine of 3.9. Microbiology reveals the urine cultures are negative. Chest x-ray, no change in vascular congestion and bilateral perihilar infiltrates. ASSESSMENT AND PLAN: This is a 72-year-old male seen earlier this morning with urinary tract infection with extended spectrum beta-lactamase, Klebsiella and Proteus with history of healthcare-associated pneumonia, history of extended spectrum beta-lactamase Escherichia coli bacteremia, history of sepsis with right-sided healthcare-associated pneumonia, history of pseudomembranous colitis and severe cardiomyopathy, who completed 10 days of meropenem, today is day #11. We will discontinue the meropenem. On prednisone. Patient is at risk for developing nosocomial infections. Walt Conner MD
[2017-09-20] MEDS ORDERED: MethylPREDNISolone 40 mg Vial IVP STA (20:32)
[2017-09-20 21:28] VITALS: BP 156/98; PULSE 78; RESP 22; TEMP 98.8; O2SAT 99
[2017-09-20] MEDS ORDERED: Albuterol-Ipratrop 3 mg / 0.5 (3 ml) UD IH STA (22:25)
--- NOTE | 2017-09-20 23:02 | PN ---
DATE: SUBJECTIVE: The patient is currently seen lying comfortable in bed in the TCU. He remains on IV milrinone drip. Discussion with his about his continued elevation of his BUN and creatinine is very unsettling to her. Diuretic therapy has been placed on hold. MEDICATIONS: The patient is currently on amiodarone, Coreg, Coumadin, DuoNeb, Ecotrin, Feosol, Flomax, insulin, Lipitor, Provigil, Nystop topical powder, Pepcid, PhosLo, prednisone, milrinone, Proscar, Rocaltrol, sodium bicarbonate, and MultiVites. PHYSICAL EXAMINATION: VITAL SIGNS: Blood pressure 109/76, temperature 98.1, respiratory rate 20 with a pulse of 91. HEENT: Shows him to be normocephalic, atraumatic. Conjunctivae are pale. Sclerae are nonicteric. NECK: Supple. No neck vein distention. CHEST: Clear to auscultation and percussion with slightly decreased breath sounds at the bases. No rales. No rhonchi or wheezing. CARDIOVASCULAR: Shows an irregular S1, S2 without audible murmurs. Positive AICD/permanent pacemaker. No S3. No S4. No rub. ABDOMEN: Soft. Bowel sounds normal. Ileostomy appears intact. No rebound. No guarding. No abdominal distention. EXTREMITIES: Show trace edema of his lower extremities bilaterally. No pitting edema. No cyanosis or clubbing. LABORATORY DATA AND IMAGING: CBC: White blood cell count today 6.9, hemoglobin stable 8.9, platelet count is 253,000. Chemistries showed a BUN of 106 and creatinine of 3.9 from yesterday. Electrolytes are normal. Glucose is 170. Calcium 9, phosphorus 4.3 with a magnesium of 2.5. Repeat urine showed 10 to 15 white blood cells. Repeat urine culture was negative. Initial urine cultures are positive for E. coli and Klebsiella, and the patient has completed a course of antibiotic therapy. ASSESSMENT: 1. Acute renal failure superimposed on chronic kidney disease stage IV. It is of concern that his BUN and creatinine continue to remain higher. At his best levels, he has had BUN in the 40s and 50s as recently as early August with a creatinine in the upper 2 range. The patient has no uremic symptoms according to his . I am concerned that if his BUN and creatinine continue to trend higher, there will be a consideration for possible renal replacement therapy and in light of his severe cardiomyopathy with an ejection fraction of 15%, the patient would likely do poorly on dialysis. 2. Status post urinary tract infection, Escherichia coli and Klebsiella, treated successfully. 3. History of cardiomyopathy, arteriosclerotic heart disease, ejection fraction 15%, automatic implantable cardioverter defibrillator and permanent pacemaker. The patient will continue chronically on Primacor therapy. 4. History of aod-xsdauhg-jhojdmgnn diabetes mellitus, currently on insulin. 5. History of hypertension. Blood pressure is in the low normal range on cardiac medications. 6. History of secondary hyperparathyroidism. The patient will continue binder therapy and a renal diet. 7. History of metabolic acidosis. The patient is well compensated on sodium bicarbonate therapy, this is secondary to chronic kidney disease. 8. History of anemia secondary to chronic kidney disease. The patient will continue Aranesp therapy. His iron saturations were acceptable at 39%. 9. History of benign prostatic hypertrophy, currently stable. 10. History of hyperlipidemia, currently stable. PLAN: 1. Discussed with the patient's in detail. It is upsetting to her that his BUN and creatinine remain elevated. I do not think that giving him IV fluid hydration would be mercedes in light of his severe cardiomyopathy. We will continue to hold diuretic therapy and continue the patient on milrinone. We will avoid all nephrotoxic agents. 2. Continue to monitor labs on a daily basis. 3. I did not have a discussion with the patient's about my thoughts regarding renal replacement therapy. Mio Stoddard MD
--- NOTE | 2017-09-20 23:05 | CP.PCM.PN ---
Subjective - Date & Time of Evaluation Date of Evaluation: 09/20/17 Time of Evaluation: 09:30 - Subjective Subjective: Patient seen at the request of his RN who stated pt needs to be seen for his shortness of breath.She stated she had already called pt's PMD Dr Palacios about an hr ago and as per request Lasix and Solumedrol was given to patient stat, however pt is still SOB.He has put out only 30 ccs of urine so far. Pt denies any c/o chest pain,fever,chills,cough,nausea,vomiting or any other complaints. Currently,he is being treated for Cardiomyopathy,CHF,HTN,DM,COPD,UTI. His meds include a Milrinone drip. VS are stable.O2 sat on 3L O2 is 98%. PMH:CHF.COPD,Ischemic cardiomyopathy,S/P imsertion of AICD,,DM,CKD,Hx of paroxysmal AFib,S/P colostomy,Hx of abdominal Aortic aneurysm S/P endovascular repair. Objective - Vital Signs/Intake and Output Vital Signs (last 24 hours): Temp Pulse Resp BP Pulse Ox 98.8 F 78 22 156/98 H 99 09/20/17 21:27 09/20/17 21:27 09/20/17 21:27 09/20/17 21:27 09/20/17 21:27 Intake and Output: 09/20/17 09/21/17 18:59 06:59 Intake Total 120 Output Total 275 Balance -155 - Medications Medications: Current Medications Albuterol/Ipratropium (Duoneb 3 Mg/0.5 Mg (3 Ml) Ud) 3 ml IH [id number] [facility] PRN Reason: Protocol Last Admin: 09/20/17 20:04 Dose: 3 ml Amiodarone HCl (Cordarone) 200 mg PO DAILY [facility] Last Admin: 09/20/17 10:29 Dose: 200 mg Armodafinil (Nuvigil 150 Mg Tab) 150 mg PO DAILY [facility] Last Admin: 09/20/17 10:59 Dose: 150 mg Aspirin (Ecotrin) 81 mg PO 0800 [facility] PRN Reason: Protocol Last Admin: 09/20/17 08:28 Dose: 81 mg Atorvastatin Calcium (Lipitor) 10 mg PO DIN [facility] PRN Reason: Protocol Last Admin: 09/20/17 17:53 Dose: 10 mg Calcitriol (Rocaltrol) 0.25 mcg PO MWF [facility] PRN Reason: Protocol Last Admin: 09/19/17 10:48 Dose: 0.25 mcg Calcium Acetate (Phoslo) 667 mg PO TID [facility] PRN Reason: Protocol Last Admin: 09/20/17 17:55 Dose: 667 mg Carvedilol (Coreg) 25 mg PO 0800,1800 [facility] PRN Reason: Protocol Last Admin: 09/20/17 17:54 Dose: 25 mg Famotidine (Pepcid) 40 mg PO HS [facility] PRN Reason: Protocol Last Admin: 09/19/17 22:50 Dose: 40 mg Ferrous Sulfate (Feosol) 324 mg PO BID [facility] PRN Reason: Protocol Last Admin: 09/20/17 17:55 Dose: 324 mg Finasteride (Proscar) 5 mg PO DAILY [facility] PRN Reason: Protocol Last Admin: 09/20/17 10:59 Dose: 5 mg Milrinone Lactate/Dextrose (Primacor 20mg/100ml D5w) 100 mls @ 6.744 mls/hr IV .[id number] PRN; Protocol; 0.28 MCG/KG/MIN PRN Reason: TITRATE PER MD ORDER Last Admin: 09/20/17 05:56 Dose: 0.28 mcg/kg/min, 6.744 mls/hr Insulin Detemir (Levemir) 30 unit SC BID [facility] Last Admin: 09/20/17 17:51 Dose: 30 unit Insulin Human Regular (Humulin R) 5 units SC AC [facility] PRN Reason: Protocol Last Admin: 09/20/17 17:51 Dose: 5 units Insulin Human Regular (Humulin R Low) 0 units SC ACHS [facility] PRN Reason: Protocol Last Admin: 09/20/17 21:29 Dose: 2 units Multivitamins (Thera Tab) 1 tab PO 0800 [facility] PRN Reason: Protocol Last Admin: 09/20/17 08:28 Dose: 1 tab Nystatin (Nystop Topical Powder) 0 gm TOP Q8 [facility] Last Admin: 09/20/17 14:23 Dose: 1 appful Prednisone (Prednisone Tab) 15 mg PO 0800 [facility] PRN Reason: Protocol Sodium Bicarbonate (Sodium Bicarbonate Tab) 650 mg PO Q6 [facility] PRN Reason: Protocol Last Admin: 09/20/17 17:56 Dose: 650 mg Tamsulosin HCl (Flomax) 0.4 mg PO 1830 [facility] PRN Reason: Protocol Last Admin: 09/20/17 17:56 Dose: 0.4 mg Warfarin Sodium (Coumadin) 1.5 mg PO 1800 [facility] PRN Reason: Protocol Last Admin: 09/20/17 17:54 Dose: 1.5 mg - Labs Labs: 09/19/17 06:30 09/19/17 11:01 PT 27.7 SECONDS (9.4-12.5) H 09/19/17 06:30 INR 2.37 (0.93-1.08) H 09/19/17 06:30 - Constitutional Appears: Chronically Ill, Other (mildly dyspneic) - Head Exam Head Exam: ATRAUMATIC, NORMAL INSPECTION, NORMOCEPHALIC - Eye Exam Eye Exam: Normal appearance, PERRL - ENT Exam ENT Exam: Mucous Membranes Moist - Neck Exam Additional comments: Jugular venous distention noted. - Respiratory Exam Respiratory Exam: Rales (noted on both sides.), Respiratory Distress (mildly dyspneic). absent: Stridor - Cardiovascular Exam Cardiovascular Exam: REGULAR RHYTHM, JVD, +S1, +S2 Additional comments: AICD - GI/Abdominal Exam GI & Abdominal Exam: Soft, Normal Bowel Sounds Additional comments: Colostomy bag is in place - Extremities Exam Extremities Exam: Normal Inspection. absent: Calf Tenderness - Neurological Exam Neurological Exam: Alert, Oriented x3 - Psychiatric Exam Psychiatric exam: Normal Affect - Skin Skin Exam: Dry, Normal Color, Warm Assessment and Plan - Assessment and Plan (Free Text) Assessment: CHF Plan: Chest Xray portable was done stat. It showed worsening CHF and hilar infiltrates.Discussed with Dr Palacios. Patient sent to the ER for further evaluation and management.Endorsed case to ER MD Dr Cornell.
--- NOTE | 2017-09-21 00:48 | PN ---
DATE: 09/20/2017 REFERRING PHYSICIAN: Dexter Palacios MD SUBJECTIVE: The patient is lying in the bed, head at 45 degrees, fully awake and alert. is at bedside. Being discharged home today. No headache. No rhinitis. Cough is better. No chest pain. No nausea. No vomiting. No leg pain or leg swelling. Colostomy bag working well. OBJECTIVE: GENERAL: In no acute distress. VITAL SIGNS: Temperature is 98, heart rate is 91, respiratory rate is 20, blood pressure 109/76, pulse ox 75% on room air. HEENT: Moist mucous membranes. Crowded airway. NECK: Supple. No JVD. LUNGS: Have a fair airflow with rhonchi. HEART: S1, S2. ABDOMEN: Positive bowel sounds, soft. Colostomy working well. EXTREMITIES: There is no edema. NEUROLOGICAL: Awake, alert, follows simple command. MEDICATIONS: He is on amiodarone 200 mg daily, Coreg 25 mg twice a day, Coumadin 1.5 mg will be given tonight, DuoNeb q.6 hours, Ecotrin 81 mg daily, ferrous sulfate 325 mg twice a day, Flomax 0.4 mg daily, insulin coverage, Lasix 40 mg daily, Levemir 30 units subcu twice a day, Lipitor 10 mg daily, Nuvigil 150 mg daily, Pepcid 20 mg daily, PhosLo with meals 3 times a day, prednisone 50 mg daily, Primacor drip, Proscar 5 mg daily, calcitriol 0.25 mcg Tuesday, Tuesday and Tuesday, sodium bicarbonate 650 mg q. 6 hours, multivitamins daily. LABORATORY DATA: Reviewed. Blood sugar this morning 297. Chest x-ray done this morning shows some congestions, bilateral perihilar infiltrates. IMPRESSION AND PLAN: Resolving sepsis, urinary tract infection, chronic obstructive lung disease, lung cancer, severe cardiomyopathy, heart failure, milrinone dependent, pulmonary hypertension, atrial fibrillation, history of radiation to the lung, pulmonary infiltrate, gastroesophageal reflux disease, history of hemicolectomy, ileostomy, may have sleep apnea syndrome, daytime hypersomnia. Patient and family refused CPAP use at night time. Continue inhaled bronchodilator. Keep head at 45 degrees. May use Nuvigil on p.r.n. basis. Fall precautions. Pressure ulcer precaution. Spoke to patient's at bedside. All the questions answered. Thank you and we will follow with you. Arabella Alva MD [facility] # [id number]
[2017-09-21] MEDS: Albuterol-Ipratrop 3 mg / 0.5 (3 ml) UD IH SCH (01:35)
--- NOTE | 2017-09-21 08:47 | RAD ---
HISTORY: Congestive heart failure, shortness of breath. COMPARISON: September 20, 2017. Time of the most recent examination: 08:13. FINDINGS: LUNGS: Stable pulmonary edema. PLEURA: No significant pleural effusion identified, no pneumothorax apparent. CARDIOVASCULAR: Stable cardiomegaly. PICC line in the right subclavian vein unchanged. OSSEOUS STRUCTURES: No significant abnormalities. VISUALIZED UPPER ABDOMEN: Normal. OTHER FINDINGS: None. IMPRESSION: No significant interval change compared to the prior examination(s).
--- NOTE | 2017-09-22 07:31 | DS ---
HOSPITAL COURSE: Patient will be planned to be discharged home on milrinone IV. Patient got worse and was transferred to the emergency room for evaluation because of respiratory distress. Patient does have a history of congestive heart failure, COPD, lung CA, and have respiratory distress. Then, went to the emergency room where he has been evaluated. While he is in TCU, he seems to be stable. He wants to go home. PHYSICAL EXAMINATION: GENERAL: He is no distress. VITAL SIGNS: His temperature 98.7, heart rate 95, his blood pressure 147/91, respirations 20, saturating 95% on room air. HEAD AND NECK: Normal. No JVD. No thyromegaly. CHEST: Clear. CARDIAC: First sound and second sound normal. Systolic murmur across precordium. ABDOMEN: Soft with colostomy bag. EXTREMITIES: No edema. NEUROLOGIC: He is bedridden, weak in lower extremities less than 3/5 and upper extremities 4/5. Patient had a history of stroke. LABORATORY STUDIES: He does have blood test, which shows 6.9 white count, 8.9 hemoglobin, 28.7 hematocrit, and platelets is 253. His chemistry was also done and it was in the range of 200. Patient has been on steroids, but his last chemistry shows the following, his sodium 135, potassium 4.2, chloride 99, bicarb 27, BUN 106 and creatinine 3.9. Blood sugar is 170, magnesium 2.5, calcium 9, and phosphorus 4.3. His blood sugar runs 175 to 200 range. Patient is on IV Solu-Medrol. DISCHARGE DIAGNOSES: 1. Acute respiratory distress, worsening underlying chronic obstructive pulmonary disease. Patient went to the emergency room. 2. Congestive heart failure. 3. Acute chronic obstructive pulmonary disease exacerbation. 4. Chronic atrial fibrillation. 5. Chronic renal failure with high creatinine, most unusual. 6. Anemia. 7. History of cerebrovascular accident, coronary artery disease, ischemic cardiomyopathy. 8. Prostate enlargement. 9. History of deep venous thrombosis in the past. Patient was discharged on the following medications, aspirin 81 mg, amiodarone 200 mg p.o. daily, Coreg 25 mg b.i.d. Continue nebulizer treatment. Continue iron 324 b.i.d., Flomax 0.4 mg p.o. at bedtime. Continue Levemir; he was given 30 units twice a day plus the insulin coverage before meals 5 units. has been trained for diabetes management at home, Lipitor 10 mg at night, Nuvigil 150 mg p.o. daily, Pepcid 40 mg p.o. daily, PhosLo 667 mg p.o. with meals 3 times a day, and patient was given prednisone to be tapered down. However, this was canceled because patient transferred to emergency room for evaluation. Continue IV milrinone. He has been discussing with the nurse on the floor to get the approval for IV milrinone to be done as outpatient, for that reason patient was not planned to be discharged; however, because of his respiratory distress, we discharged him to emergency room for evaluations. Continue Primacor 0.28 mcg/kg per minute. Continue Proscar 5 mg daily, sodium bicarbonate 650 q.6 hours and multivitamins plus prednisone, which was supposed to be given 20 mg for 2 days, 15 mg for 2 days, 10 mg for 2 days, 5 mg for 2 days and we will stop. Patient, however, transferred to emergency room for acute respiratory distress, acute COPD, congestive heart failure worsening and patient was admitted finally to telemetry again due to his underlying severe multiorgan failure with multiple comorbid illnesses. Finally, patient had urine culture, which was negative, so there is no need for antibiotics for UTI. I spoke with in detail, explained to her what is the result and everything and we will continue current management. We will continue also Coumadin 1.5 mg daily. We will repeat PT/INR weekly. Dexter Palacios MD
== END 2017-09-21 03:12 | disposition short-term general hospital (02) | DRG 945 ==
LOC: TRCU 18:16
PROVIDERS: ADMIT Internal Medicine; ATTEND Internal Medicine
PROC: F07Z8FZ Transfer Training Treatment using Assistive, Adaptive, Supportive or Protective Equipment (ICD-10-PCS; principal; 2017-09-17)
PROC: F07L6ZZ Therapeutic Exercise Treatment of Musculoskeletal System - Lower Back / Lower Extremity (ICD-10-PCS; 2017-09-18)
PROC: F07Z5FZ Bed Mobility Treatment using Assistive, Adaptive, Supportive or Protective Equipment (ICD-10-PCS; 2017-09-19)
DX: R53.1 Weakness (principal); J18.9 Pneumonia, unspecified organism; E11.22 Type 2 diabetes mellitus with diabetic chronic kidney disease; E11.51 Type 2 diabetes mellitus with diabetic peripheral angiopathy without gangrene; I13.0 Hypertensive heart and chronic kidney disease with heart failure and stage 1 through stage 4 chronic kidney disease, or unspecified chronic kidney disease; E11.65 Type 2 diabetes mellitus with hyperglycemia; N18.4 Chronic kidney disease, stage 4 (severe); N17.9 Acute kidney failure, unspecified; I48.0 Paroxysmal atrial fibrillation; I47.1 Supraventricular tachycardia; I50.22 Chronic systolic (congestive) heart failure; N39.0 Urinary tract infection, site not specified; N25.81 Secondary hyperparathyroidism of renal origin; J44.0 Chronic obstructive pulmonary disease with (acute) lower respiratory infection; I27.20 Pulmonary hypertension, unspecified; D63.1 Anemia in chronic kidney disease; I25.10 Atherosclerotic heart disease of native coronary artery without angina pectoris; N40.0 Benign prostatic hyperplasia without lower urinary tract symptoms; E78.5 Hyperlipidemia, unspecified; I25.5 Ischemic cardiomyopathy; B96.1 Klebsiella pneumoniae [K. pneumoniae] as the cause of diseases classified elsewhere; Z16.12 Extended spectrum beta lactamase (ESBL) resistance; B96.4 Proteus (mirabilis) (morganii) as the cause of diseases classified elsewhere; K21.9 Gastro-esophageal reflux disease without esophagitis; F03.90 Unspecified dementia, unspecified severity, without behavioral disturbance, psychotic disturbance, mood disturbance, and anxiety; G47.30 Sleep apnea, unspecified; I71.4 Abdominal aortic aneurysm, without rupture; Z95.810 Presence of automatic (implantable) cardiac defibrillator; Z93.3 Colostomy status; Z93.2 Ileostomy status; Z90.49 Acquired absence of other specified parts of digestive tract; Z95.5 Presence of coronary angioplasty implant and graft; Z85.118 Personal history of other malignant neoplasm of bronchus and lung; Z86.73 Personal history of transient ischemic attack (TIA), and cerebral infarction without residual deficits; Z74.01 Bed confinement status; Z99.3 Dependence on wheelchair; Z86.718 Personal history of other venous thrombosis and embolism; Z79.4 Long term (current) use of insulin; Z79.82 Long term (current) use of aspirin; Z79.01 Long term (current) use of anticoagulants; Z92.3 Personal history of irradiation

== ENCOUNTER 2017-09-20 21:58 | Inpatient (IN) | payer MEDICARE, MEDICAID ==
[2017-09-20 21:59] VITALS: PULSE 95; BMI 27.7
[2017-09-20] MEDS ORDERED: Albuterol-Ipratrop 3 mg / 0.5 (3 ml) UD IH STA (22:26)
--- NOTE | 2017-09-20 22:35 | ED PDOC ---
Arrival/HPI <Brendan Mc - Last Filed: 09/20/17 22:43> <Marcus Cornell - Last Filed: 09/20/17 23:13> - General Chief Complaint: Shortness Of Breath Time Seen by Provider: 09/20/17 22:00 - History of Present Illness Narrative History of Present Illness (Text): 09/20/17 22:30 Pt is a 72 yo M with PMH of HCAP, Severe cardiomyopathy with EF 10-15 %, paroxysmal atrial fibrillation, Coronary artery disease S/P stenting, history of aortic aneurysm, history of SVT, S/P AICD placement, S/P procedure on his prostate in 2012, S/P partial colectomy and colostomy, ESBL E. coli bacteremia presents to ED as transfer from TCU due to worsening shortness of breath, CXR showing worsened vascular congestion. Pt was initially admitted [place] [facility] [place] acute on chronic CHF exacerbation and ESBL urosepsis. Patient alert and oriented to self only. Patient can follow simple commands. Further history and ROS limited due to patients current mental status. PMD: Suzanne (Brendan Mc) Past Medical History - Provider Review Nursing Documentation Reviewed: Yes - Infectious Disease Hx of Infectious Diseases: None - Tetanus Immunization Tetanus Immunization: Unknown - Cardiac Hx Congestive Heart Failure: Yes Hx Hypertension: Yes - Pulmonary Hx Chronic Obstructive Pulmonary Disease (COPD): Yes - Neurological HX Cerebrovascular Accident: Yes - HEENT Hx HEENT Disorder: Yes - Renal Hx Renal Failure: Yes - Endocrine/Metabolic Hx Diabetes Mellitus Type 2: Yes - Hematological/Oncological Hx Anemia: Yes - Integumentary Hx Dermatological Disorder: Yes Other/Comment: multiple moles around neck, red raised b/l groin rash, pt unwilling to turn to assess back, multiple skin discolorations to both arms - Musculoskeletal/Rheumatological Hx Falls: Yes - Gastrointestinal Hx Gastrointestinal Disorders: Yes - Genitourinary/Gynecological Hx Genitourinary Disorders: Yes Hx Reproductive Disorders: No - Psychiatric Hx Depression: Yes Hx Substance Use: No - Surgical History Hx Cardiac Catheterization: Yes Hx Open Heart Surgery: Yes - Anesthesia Hx Anesthesia: Yes - Suicidal Assessment Feels Threatened In Home Enviroment: No <Brendan Mc - Last Filed: 09/20/17 22:43> Family/Social History - Physician Review Nursing Documentation Reviewed: Yes Family/Social History: Other (non-contributory) Smoking Status: Former Smoker Hx Alcohol Use: No Hx Substance Use: No Hx Substance Use Treatment: No <Brendan Mc - Last Filed: 09/20/17 22:43> Allergies/Home Meds <Brendan Mc - Last Filed: 09/20/17 22:43> <Marcus Cornell - Last Filed: 09/20/17 23:13> Allergies/Adverse Reactions: Allergies No Known Allergies Allergy (Verified 09/18/17 15:44) Home Medications: Home Meds Medication Instructions Recorded Confirmed Furosemide [Lasix] 40 mg PO DAILY 08/12/17 09/18/17 Pantoprazole Sodium [Protonix] 40 mg PO DAILY 08/12/17 09/18/17 Warfarin [Coumadin] 2 mg PO DAILY 08/12/17 09/18/17 Calcitriol 0.25 mg PO MWF 08/26/17 09/18/17 Calcium Acetate [Phoslo] 667 mg PO TID 08/26/17 09/18/17 Finasteride [Proscar] 5 mg PO DAILY 08/26/17 09/18/17 Atorvastatin [Lipitor] 10 mg PO DAILY 09/09/17 09/18/17 Ferrous Sulfate [Feosol] 325 mg PO BID 09/09/17 09/18/17 Multivitamin [Daily Jere] 1 tab PO DAILY 09/09/17 09/18/17 Sodium Bicarbonate Tab 650 mg PO TID 09/09/17 09/18/17 Review of Systems - Physician Review All systems were reviewed & negative as marked: Yes - Review of Systems Systems not reviewed;Unavailable: Altered Mental Status <Brendan Mc - Last Filed: 09/20/17 22:43> Physical Exam Vital Signs Reviewed: Yes Temperature: Afebrile Blood Pressure: Normal Pulse: Regular Respiratory Rate: Tachypneic Appearance: Positive for: Ill-Appearing Pain Distress: None Mental Status: Positive for: Alert and Oriented X 3 - Systems Exam Head: Present: Atraumatic, Normocephalic Pupils: Present: PERRL Neck: No: Meningeal Signs, MIDLINE TENDERNESS, Paraspinal Tenderness Respiratory/Chest: Present: Wheezes, Rales, Rhonchi. No: Respiratory Distress, Accessory Muscle Use Cardiovascular: Present: Regular Rate and Rhythm, Normal S1, S2. No: Murmurs, Rub, Gallop Abdomen: No: Tenderness, Distention, Rebound, Guarding Upper Extremity: Present: Neurovascularly Intact, Other (left upper extremity swelling/edema strength 1/5. follow commands with right UE strength 4/5.) Lower Extremity: Present: Normal Inspection, Neurovascularly Intact. No: Edema Neurological: Present: GCS=15 Skin: Present: Warm, Dry, Normal Color Psychiatric: Present: Alert, Oriented x 3 <Brendan Mc - Last Filed: 09/20/17 22:43> Vital Signs Pulse Resp BP Pulse Ox 09/20/17 22:14 87 20 134/98 H 98 Medical Decision Making <Brendan Mc - Last Filed: 09/20/17 22:43> - EKG Interpretation Interpreted by ED Physician: Yes Type: 12 lead EKG <KraigSumeetcarlos Mendez - Last Filed: 09/20/17 23:13> ED Course and Treatment: 09/20/17 22:41 Assessment: 72 yo M presents to ED with worsening dyspnea and vascular congestion on CXR. Plan: - Labs - CXR - EKG - Troponin - BNP - Coags - VBG - Blood and urine cultures - UA - Reassess and disposition (Brendan Mc) Impression: Pt of Dr. Palacios'kd from [facility]. As per house physician, Dr. Salomon, pt has a history of CHF, A fib on Coumadin, CVA, diabetes on Primarcor drip, admitted to the hospital for treatment of pneumonia and UTI. As per Dr. Salomon, pt looked more short of breath, states was saturating fine on 3L. CXR looked worse and pt had bilateral rales. Lasix and Solu-medrol were given 1 hour [facility] [employer]. Pt subsequently transferred to ER. Pt seen and evaluated with medical territory manager. Aware and agree with HPI, clinical findings, plan, and management. Plan: -- EKG -- CXR -- Labs, VBG, cardiac enzymes, BNP, blood cultures -- Urinalysis, urine cultures -- Reassess and disposition Progress Notes: Reviewed EKG, NSR at 99 bpm. PAC. Left posterior fascicular block. No acute change from EKG on 09/09/2017. 09/20/17 22:[address] Strong, pending labs, CXR, re-evaluation, and disposition. (Marcus Cornell) - Medication Orders Current Medication Orders: Discontinued Medications Albuterol/Ipratropium (Duoneb 3 Mg/0.5 Mg (3 Ml) Ud) 3 ml IH STAT STA Stop: 09/20/17 22:27 Disposition/Present on Arrival - Present on Arrival Any Indicators Present on Arrival: Yes History of DVT/PE: No History of Uncontrolled Diabetes: Yes Urinary Catheter: Yes History of Decub. Ulcer: No History Surgical Site Infection Following: None - Disposition Have Diagnosis and Disposition been Completed?: No Disposition Time: 22:45 <Brendan Mc - Last Filed: 09/20/17 22:43> - Disposition Have Diagnosis and Disposition been Completed?: No <Marcus Cornell - Last Filed: 09/20/17 23:13> - Disposition Diagnosis: CHF exacerbation, Dyspnea Condition: SERIOUS Discharge Instructions (ExitCare): Heart Failure (ED) Referrals: Dexter Palacios MD [Primary Care Provider] - Follow up with primary Forms: [employer] ([place])
[2017-09-20 23:19] LABS: VENOUS BLOOD GAS BASE EXCESS 0.6 mmol/L (0.0-2.0); VENOUS BLOOD GAS PO2 224 mm/Hg (30-55); VENOUS BLOOD PH 7.44 (7.32-7.43)
[2017-09-20 23:23] LABS: GRAN # 8.25 (1.4-6.5); GRAN % 91.2 % (50.0-68.0); HEMOGLOBIN 9.5 g/dL (14.0-18.0); LYMPH # 0.6 (1.2-3.4); LYMPH % 6.4 % (22.0-35.0); MEAN CELL VOLUME 80.9 fl (80.0-105.0); MEAN CORPUSCULAR HEMOGLOBIN 25.3 pg (25.0-35.0); MEAN CORPUSCULAR HGB CONC 31.3 g/dl (31.0-37.0); MEAN PLATELET VOLUME 10.3 fl (7.0-11.0); MONO # 0.2 (0.1-0.6); MONO % 2.4 % (1.0-6.0); PLATELET COUNT 274 10^3/uL (120.0-450.0); RBC 3.76 10^6/uL (3.5-6.1); RED CELL DISTRIBUTION WIDTH 17.5 % (11.5-14.5); WHITE BLOOD COUNT 9.1 10^3/ul (4.5-11.0)
[2017-09-20 23:31] LABS: INR 3.41 (0.93-1.08); PROTHROMBIN TIME 39.9 SECONDS (9.4-12.5)
[2017-09-20 23:36] LABS: URINE BILIRUBIN NEGATIVE (NEGATIVE); URINE BLOOD SMALL (NEGATIVE); URINE GLUCOSE (UA) NEGATIVE (NEGATIVE); URINE LEUKOCYTE ESTERASE MODERATE Leu/uL (NEGATIVE); URINE PROTEIN 100 mg/dL (<30 mg/dL); URINE UROBILINOGEN 0.2 E.U./dL (<1 E.U./dL)
--- NOTE | 2017-09-20 23:36 | ED PDOC ---
Physical Exam Vital Signs Reviewed: Yes Vital Signs Pulse Resp BP Pulse Ox 09/21/17 00:34 103 H 18 128/82 98 09/20/17 22:37 99 H 09/20/17 22:21 20 100 09/20/17 22:14 87 20 134/98 H 98 Temperature: Afebrile Blood Pressure: Normal Pulse: Regular Respiratory Rate: Normal Appearance: Positive for: Well-Appearing, Non-Toxic, Comfortable Pain Distress: None Mental Status: Positive for: Alert and Oriented X 3 Medical Decision Making ED Course and Treatment: 09/20/17 23:00 Case endorsed to me by Dr. Cornell, pending labs,re-evaluation, and disposition. Pt, whose past medical history includes CHF, A fib on Coumadin, CAD , and diabetes, on Primarcor drip transferred to Emergency department from TCU for shortness of breath. 09/21/17 01:15 Case discussed with medical transcription editor chaperone, who is aware and agrees with plan. 09/21/17 01:[address] Salomon, who is aware and agrees with plan. Accepts pt in to hospitalist service. Pt will be admitted to Telemetry for CHF - Lab Interpretations Lab Results: 09/20/17 22:51 09/20/17 22:51 Lab Results 09/20/17 22:57: Urine Color Yellow, Urine Appearance Sl cloudy, Urine pH 6.0, Ur Specific [place] 1.020, Urine Protein 100 H, Urine Glucose (UA) Negative, Urine Ketones Negative, Urine Blood Small H, Urine Nitrate Negative, Urine Bilirubin Negative, Urine Urobilinogen 0.2, Ur Leukocyte Esterase Moderate H, Urine RBC 0 - 2, Urine WBC 5 - 10, Ur Epithelial Cells 0 - 2, Urine Bacteria Occ , Urine Other Uyeast 09/20/17 22:51: Sodium 133, Chloride 98, Potassium 4.7, Carbon Dioxide 24, Anion Gap 16, BUN 115 H, Creatinine 3.8 H, Est GFR ( Amer) 19, Est GFR ( Non-Af Amer) 16, Random Glucose 292 H, Calcium 8.9, Magnesium 2.6 H, Total Bilirubin 0.5, AST 27, ALT 38, Alkaline Phosphatase 136 H D, Lactate Dehydrogenase 527, Total Creatine Kinase 32 L, Troponin I 0.07 D, NT-Pro-B Natriuret Pep 21504 H, Total Protein 6.1, Albumin 3.1, Globulin 3.0, Albumin/ Globulin Ratio 1.0 L 09/20/17 22:51: pO2 224 H, VBG pH 7.44 H, VBG pCO2 36.0 L, VBG HCO3 24.5, VBG Total CO2 25.6, VBG O2 Sat (Calc) 99.9 H, VBG Base Excess 0.6, VBG Potassium 4.7 , Sodium 131.0 L, Chloride 100.0, Glucose 303 H, Lactate 1.6, FiO2 21.0, Venous Blood Potassium 4.7 09/20/17 22:51: PT 39.9 H, INR 3.41 H, APTT 31.0 09/20/17 22:51: WBC 9.1 D, RBC 3.76, Hgb 9.5 L, Hct 30.4 L, MCV 80.9, MCH 25.3 , MCHC 31.3, RDW 17.5 H, Plt Count 274, MPV 10.3, Gran % 91.2 H, Lymph % (Auto) 6.4 L, [place] % (Auto) 2.4, Eos % (Auto) 0.0 L, Baso % (Auto) 0.0, Gran # 8.25 H, Lymph # (Auto) 0.6 L, [place] # (Auto) 0.2, Eos # (Auto) 0.0, Baso # (Auto) 0.00, Neutrophils % (Manual) 90 H, Band Neutrophils % 2, Lymphocytes % (Manual) 6 L, Monocytes % (Manual) 2, Platelet Evaluation Normal, Hypochromasia Slight, Anisocytosis (manual) 1+ I have reviewed the lab results: Yes - Medication Orders Current Medication Orders: Discontinued Medications Albuterol/Ipratropium (Duoneb 3 Mg/0.5 Mg (3 Ml) Ud) 3 ml IH STAT STA Stop: 09/20/17 22:27 Last Admin: 09/20/17 23:15 Dose: 3 ml Disposition/Present on Arrival - Present on Arrival Any Indicators Present on Arrival: No History of DVT/PE: No History of Uncontrolled Diabetes: Yes Urinary Catheter: Yes History of Decub. Ulcer: No History Surgical Site Infection Following: None - Disposition Have Diagnosis and Disposition been Completed?: Yes Diagnosis: CHF exacerbation, Dyspnea Disposition: HOSPITALIZED Disposition Time: 01:45 Patient Problems: Current Active Problems Problem Status Onset CHF exacerbation Acute Dyspnea Acute Condition: IMPROVED
[2017-09-20 23:37] LABS: URINE APPEARANCE SL CLOUDY (CLEAR); URINE COLOR YELLOW (YELLOW)
[2017-09-20 23:39] LABS: TROPONIN I 0.07 ng/mL
[2017-09-20 23:42] LABS: ALBUMIN 3.1 g/dL (3.0-4.8); CALCIUM 8.9 mg/dL (8.4-10.5)
[2017-09-20 23:51] LABS: URINE RBC 0 - 2 /hpf (0-2)
[2017-09-20 23:52] LABS: URINE BACTERIA OCC (NEG); URINE EPITHELIAL CELLS 0 - 2 /hpf (0-5)
[2017-09-21 01:45] LABS: BAND 2 % (0-2); LYMPHOCYTE 6 % (22.0-35.0); MONOCYTE 2 % (1.0-6.0); NEUTROPHIL 90 % (50.0-70.0); PLATELET ESTIMATE NORMAL (NORMAL)
[2017-09-21 01:46] LABS: ANISOCYTOSIS 1+; HYPOCHROMIA SLIGHT
--- NOTE | 2017-09-21 03:41 | CP.PCM.HP ---
<Gwendolyn Salomon - Last Filed: 09/21/17 06:56> Meds Allergies/Adverse Reactions: Allergies Allergy/AdvReac Type Severity Reaction Status Date / Time No Known Allergies Allergy Verified 09/18/17 15:44 Results - Vital Signs Recent Vital Signs: Last Vital Signs Temp 98.4 F 09/21/17 06:00 Pulse 95 H 09/21/17 06:00 Resp 20 09/21/17 05:50 BP 122/79 09/21/17 05:50 Pulse Ox 100 09/21/17 06:00 - Labs Result Diagrams: 09/20/17 22:51 09/20/17 22:51 Attending/Attestation - Attestation I have personally seen and examined this patient.: Yes I have fully participated in the care of the patient.: Yes I have reviewed all pertinent clinical information: Yes Notes (Text): 09/21/17 06:56 Agree with documentation and orders placed. <Brendan Hatch - Last Filed: 09/21/17 07:06> History of Present Illness - History of Present Illness History of Present Illness: CC: Shortness of breath HPI: Patient is a 72 year old male with past medical history of HCAP, severe cariomyopathy with EF 10-15%, paroxysmal atrial fibrillation, CAD s/p stents, hx of aortic aneurysm, hx of SVT, AICD, partial colectomy and colosotomy, ESBL E. coli bactermiea that was transferred to [facility] from [place] [place] [facility] for shortness of breath. Patient joined by family at bedside. Patient was initially admitted to [facility] for an acute on chronic CHF exacerbation and ESBL urosepsis. At time of interview patient reports improved shortness of breath, denies chest pain, headache, abdominal pain, fever, chills, nausea, vomiting. According to family at bedside patient is at baseline. Patient is verbal and provides minimal word/ sentence responses to questioning. PMH: other than mentioned in HPI, Peripheral vascular disease, insulin dependent diabetes, recurrent pneumonia, advanced dementia, history PSH: Colectomy, AICD placement SOChx: Denies Tobacco, ETOH, ID All: NKDA Meds: MAR reviewed PMD: Saleeb Present on Admission - Present on Admission Any Indicators Present on Admission: Yes History of DVT/PE: Yes Urinary Catheter: Yes Review of Systems - Review of Systems All systems: reviewed and no additional remarkable complaints except (as mentioned in HPI) Past Patient History - Infectious Disease Hx of Infectious Diseases: None - Tetanus Immunizations Tetanus Immunization: Unknown - Past Medical History & Family History Past Medical History?: Yes - Past Social History Smoking Status: Former Smoker Alcohol: None Drugs: Denies - CARDIAC Hx Congestive Heart Failure: Yes Hx Hypertension: Yes - PULMONARY Hx Chronic Obstructive Pulmonary Disease (COPD): Yes - NEUROLOGICAL HX Cerebrovascular Accident: Yes - HEENT Hx HEENT Problems: Yes - RENAL Hx Renal Failure: Yes - ENDOCRINE/METABOLIC Hx Diabetes Mellitus Type 2: Yes - HEMATOLOGICAL/ONCOLOGICAL Hx Anemia: Yes - INTEGUMENTARY Hx Dermatological Problems: Yes Other/Comment: multiple moles around neck, red raised b/l groin rash, pt unwilling to turn to assess back, multiple skin discolorations to both arms - MUSCULOSKELETAL/RHEUMATOLOGICAL Hx Falls: Yes - GASTROINTESTINAL Hx Gastrointestinal Disorders: Yes - GENITOURINARY/GYNECOLOGICAL Hx Genitourinary Disorders: Yes Hx Reproductive Disorders: No - PSYCHIATRIC Hx Depression: Yes Hx Substance Use: No - SURGICAL HISTORY Hx Cardiac Catheterization: Yes Hx Open Heart Surgery: Yes - ANESTHESIA Hx Anesthesia: Yes Physical Exam - Constitutional Appears: Non-toxic, No Acute Distress - Head Exam Head Exam: ATRAUMATIC, NORMAL INSPECTION, NORMOCEPHALIC - Eye Exam Eye Exam: EOMI, PERRL - ENT Exam ENT Exam: Mucous Membranes Moist - Respiratory Exam Respiratory Exam: Rales (diffuse), NORMAL BREATHING PATTERN. absent: Wheezes, Stridor - Cardiovascular Exam Cardiovascular Exam: REGULAR RHYTHM, +S1, +S2 - GI/Abdominal Exam GI & Abdominal Exam: Normal Bowel Sounds, Soft. absent: Tenderness Additional comments: colostomy bag - Extremities Exam Extremities exam: Positive for: normal inspection, pedal pulses present. Negative for: calf tenderness - Neurological Exam Neurological exam: Alert, Oriented x3 - Psychiatric Exam Psychiatric exam: Normal Affect - Skin Skin Exam: Dry, Warm Results - Vital Signs Recent Vital Signs: Last Vital Signs Temp Pulse 103 H 09/21/17 00:34 Resp 18 09/21/17 00:34 BP 128/82 09/21/17 00:34 Pulse Ox 98 09/21/17 00:34 - Labs Result Diagrams: 09/20/17 22:51 09/20/17 22:51 Assessment & Plan - Assessment and Plan (Free Text) Assessment: Patient is a 72 year old male with past medical history of CHF, HCAP, severe cardiomyopathy with EF 10-15%, atrial fib, CAD s/p stents, hx of aortic aneurysm , hx of SVT, AICD that was transferred to [facility] from [place] [facility] for shortness of breath. Patient evaluated in ED and will be admitted to telemetry floor for CHF exacerbation and dyspnea. Plan: 1. CHF exacerbation - Chest x ray reviewed showing worsening of CHF with hilar infiltrates - Milrinone gtt - restart medications from TCU admission - Lasix IV, Solumedrol - continue to monitor clinically 2. Urosepsis - improved - history of UTI with ESBL - ID has been following, patient completed IV meropenem - Continue ID consultation 3. COPD - hx of recurrent pneumonia, lung cancer - continue with duoneb's - IV solumedrol - Maintain SaO2 88-92% 4. Atrial Fibrillation - non-valvular on AC - Continue with warfarin - continue amiodarone for rate controlled 5. Hx of DVT of the upper extremities - Continue with warfarin 6. DM2 - insulin dependent - Insulin Levemir 30 BID - ISS low before meals - ACHS - Renal non dialysis diet dvt ppx: Warfarin GI ppx: Pepcid Case and plan discussed with attending - Date & Time Date: 09/21/17 Time: 04:52
[2017-09-21] MEDS ORDERED: MethylPREDNISolone 40 mg Vial IVP SCH (04:15)
[2017-09-21] MEDS ORDERED: Albuterol-Ipratrop 3 mg / 0.5 (3 ml) UD IH STA (04:19)
[2017-09-21 06:58] LABS: GRAN # 5.79 (1.4-6.5); GRAN % 92.1 % (50.0-68.0); HEMOGLOBIN 9.1 g/dL (14.0-18.0); LYMPH # 0.3 (1.2-3.4); LYMPH % 4.1 % (22.0-35.0); MEAN CELL VOLUME 80.5 fl (80.0-105.0); MEAN CORPUSCULAR HEMOGLOBIN 25.3 pg (25.0-35.0); MEAN CORPUSCULAR HGB CONC 31.5 g/dl (31.0-37.0); MEAN PLATELET VOLUME 10.6 fl (7.0-11.0); MONO # 0.2 (0.1-0.6); MONO % 3.8 % (1.0-6.0); RBC 3.59 10^6/uL (3.5-6.1); RED CELL DISTRIBUTION WIDTH 17.6 % (11.5-14.5); WHITE BLOOD COUNT 6.3 10^3/ul (4.5-11.0)
[2017-09-21 07:16] LABS: PROTHROMBIN TIME 46.2 SECONDS (9.4-12.5)
[2017-09-21 07:18] LABS: INR 3.91 (0.93-1.08)
[2017-09-21] MEDS: Albuterol-Ipratrop 3 mg / 0.5 (3 ml) UD IH SCH ×3 (07:45→20:35)
[2017-09-21] MEDS: Multivitamin Therapeutic Tab PO SCH (08:08)
[2017-09-21] MEDS: Insulin Lispro (humaLOG) LOW Coverage SC SCH ×4 (08:08→23:01)
[2017-09-21 08:51] LABS: ALBUMIN 2.8 g/dL (3.0-4.8); CALCIUM 9.1 mg/dL (8.4-10.5)
--- NOTE | 2017-09-21 10:18 | PQF CHF ---
This form is a permanent part of the medical record Clarification of your documentation is requested to better reflect the severity of illness and intensity of treatment of your patient. Indicators present Pt presents w/ hx end-stage ischemic cardiomyopathy, EF- 15 -20%, stage 4 CKD, presents w/ increased congestion, elevated BNP, CXR- c/w CHF. Please document type & acuity POA x] Diagnosis of CHF and/or history of CHF [x] BNP > 200 [] Imaging Finding of Pulmonary Edema /Pleural Effusions [] Fluid/Volume Overload [] Pitting edema [x] Ejection Fraction < 40% (Indicative of Systolic Heart Failure) [] Ejection Fraction > 40% (Indicative of Diastolic Heart Failure) [x] Dyspnea / Orthopenea / Paroxysmal Nocturnal Dyspnea [] Other: Location in the medical record that reflects the above clinical findings: [x] Admission H&P Treatment Provided: []IV Milirone drip, IV Lasix PHYSICIAN'S RESPONSE Based on your medical judgment of the clinical indicators outlined above, are you treating this patient for a known or suspected: [] Acute CHF [] Systolic [] Diastolic [] Combined [] Chronic CHF [] Systolic [] Diastolic [] Combined [x] Acute on Chronic CHF [x]Systolic [] Diastolic [] Combined [] CHF due hypertension [] Acute systolic []Chronic systolic [] Acute/ chronic systolic [] Other, please indicate: [] [] If Unable to Determine, please check the box, sign and date. Present On Admission (POA) Indicator: [] Present at the time of admission [] Not present at the time of admission [] Clinically Undetermined In responding to this query, please exercise your independent professional judgment. The fact that a question is asked does not imply that any particular answer is desired or expected. Thank you for your clarification on this documentation. If you have any questions please call:[ ][phone] * Thank you, [ ]Rosaura Springer RN [employer]
[2017-09-21] MEDS: Insulin Detemir 100 units/ml Vial (Levemir) SC SCH ×2 (10:23→17:26)
[2017-09-21] MEDS: Milrinone 20mg/100ml D5W 100 ML IV PRN (12:50)
--- NOTE | 2017-09-21 17:14 | CARD ---
APPROVED REPORT EKG Measurement Heart [id number] <Conclusion> Sinus rhythm with premature atrial complexes with aberrant conduction Possible Left atrial enlargement Left posterior fascicular block Cannot rule out Inferior infarct, age undetermined Abnormal ECG
--- NOTE | 2017-09-21 21:54 | CON ---
DATE: PULMONARY CONSULTATION REFERRING PHYSICIAN: Dr. Palacios. REASON FOR CONSULTATION: Status post respiratory insufficiency, pulmonary edema. HISTORY OF PRESENT ILLNESS: This is a 72-year-old gentleman was at [facility] facility, has an acute onset of shortness of breath, found to be in pulmonary edema, received IV Lasix and transferred to emergency room where he was evaluated and admitted to telemetry. He has a known severe cardiomyopathy, Primacor dependent, also a component of chronic lung disease, lung cancer, received radiation therapy in the past, has a sleep apnea syndrome, refused to use CPAP/BiPAP, also have a laparotomy with colectomy and has a ileostomy, presently on telemetry. Feels better. Decreased shortness of breath, arousable. No hemoptysis, no hematemesis, no hematuria, no diarrhea reported. PAST MEDICAL HISTORY: As per history of present illness. ALLERGIES: NONE KNOWN. SOCIAL HISTORY: Nonsmoker, nondrinker. FAMILY HISTORY: No significant cardiopulmonary disease reported; MEDICATIONS: He is on aspirin 81 mg daily, amiodarone 200 mg daily, Coreg 25 mg twice a day, DuoNeb q. 6 hours, ferrous sulfate 324 mg twice a day, Flomax 0.4 mg daily, insulin coverage, Lasix 40 mg twice a day, Levemir 30 units subcu twice a day, Lipitor 10 mg daily, Nuvigil 150 mg daily, Pepcid 40 mg daily, calcium acetate 667 with the meals, prednisone 50 mg daily, Primacor IV drip, Proscar 5 mg daily, sodium bicarbonate 650 mg q. 6 hours, Solu-Medrol 20 mg q. 12 hours, multivitamins daily. REVIEW OF SYSTEMS: No headache, no rhinitis. Overnight, has a short of breath and cough. Presently, feels better. No nausea, no vomiting. No abdominal pain. Ileostomy working well. No leg swelling. PHYSICAL EXAMINATION: GENERAL: Lying in the bed, in no acute distress. VITAL SIGNS: Temperature is 98, heart rate is 99, respiratory rate is 18, blood pressure 130/79, pulse ox 97% on nasal cannula. HEENT: Moist mucous membrane. Crowded airway. Mallampati score is IV. NECK: Supple. No JVD. LUNGS: Have a basilar crackles, scattered rhonchi. HEART: S1 and S2. ABDOMEN: Soft, nondistended. Ileostomy bag working well. EXTREMITIES: There is no edema. NEUROLOGIC: Awake, alert, follows simple commands. LABORATORY DATA: Shows hemoglobin 9.1, hematocrit 28.9, WBC 6.3, platelet is 249. INR 3.91. VBG done last night shows pH of 7.44, pCO2 36, O2 224, that was on supplemental oxygen. Sodium 135, potassium 4.5, chloride 97, bicarbonate 26, BUN 116, creatinine is 3.7, glucose 187, calcium is 9.1, phosphorus 5.0, magnesium 2.6, AST 21, ALT 33, alk phos is 120. Albumin is 2.8. Chest x-ray done last night shows no significant interval changes compared to prior examination. There is pulmonary edema, which has been stable. IMPRESSION AND PLAN: Cardiomyopathy with pulmonary edema; atrial fibrillation; chronic obstructive lung disease; lung cancer, which is unresectable, received radiation in the past; history of laparotomy; ileostomy; anemia; obstructive sleep apnea syndrome; pulmonary hypertension, noncompliant with continuous positive airway pressure/bilevel positive airway pressure, daytime hypersomnia, on stimulant, for he was stabilized with intravenous Lasix. For now, continue p.o. and inhaled bronchodilator. Keep head elevated at 45 degrees. Sleep apnea precaution, avoid sedation. Continue diuretics. Continue milrinone. Overall, poor prognosis. Thank you and we will follow with you. Arabella Alva MD
[2017-09-21] MEDS: MethylPREDNISolone 40 mg Vial IVP SCH (23:00)
[2017-09-22] MEDS: Albuterol-Ipratrop 3 mg / 0.5 (3 ml) UD IH SCH ×4 (01:09→22:57)
[2017-09-22] MEDS: Milrinone 20mg/100ml D5W 100 ML IV PRN ×2 (02:52→18:53)
[2017-09-22 06:35] LABS: GRAN # 5.39 (1.4-6.5); GRAN % 90.8 % (50.0-68.0); HEMOGLOBIN 8.9 g/dL (14.0-18.0); LYMPH # 0.2 (1.2-3.4); LYMPH % 3.5 % (22.0-35.0); MEAN CORPUSCULAR HEMOGLOBIN 25.8 pg (25.0-35.0); MEAN CORPUSCULAR HGB CONC 32.2 g/dl (31.0-37.0); MONO # 0.3 (0.1-0.6); MONO % 5.7 % (1.0-6.0); RBC 3.45 10^6/uL (3.5-6.1); RED CELL DISTRIBUTION WIDTH 17.5 % (11.5-14.5); WHITE BLOOD COUNT 5.9 10^3/ul (4.5-11.0)
[2017-09-22 06:51] LABS: PROTHROMBIN TIME 61.4 SECONDS (9.4-12.5)
[2017-09-22 06:56] LABS: INR 5.16 (0.93-1.08)
[2017-09-22 07:15] LABS: ALBUMIN 2.8 g/dL (3.0-4.8); CALCIUM 8.8 mg/dL (8.4-10.5)
[2017-09-22] MEDS: Insulin Lispro (humaLOG) LOW Coverage SC SCH ×4 (08:40→21:31)
[2017-09-22] MEDS: Multivitamin Therapeutic Tab PO SCH (09:12)
[2017-09-22] MEDS: MethylPREDNISolone 40 mg Vial IVP SCH ×2 (10:44→21:30)
[2017-09-22] MEDS: Insulin Detemir 100 units/ml Vial (Levemir) SC SCH ×2 (10:54→17:35)
--- NOTE | 2017-09-23 00:24 | CON ---
DATE: 09/22/2017 The patient admitted for Dr. Palacios. REFERRING MD: Dexter Palacios MD. REASON FOR CONSULTATION: Evaluation of a patient known to me from past hospitalizations and from a recent stay in the TCU, who presents back to acute care with increasing shortness of breath, worsening pulmonary edema in the setting of worsening renal parameters despite being on ionotropic therapy. HISTORY OF PRESENT ILLNESS: The patient is a 72-year-old [place] white male with a history of acute renal failure superimposed on chronic kidney disease stage IV. History of ASHD, status post CABG, status post PTCA stents; history of aortic abdominal aneurysm, status post repair; history of cardiomyopathy with an ejection fraction of 15%. History of recent E-coli and Klebsiella urinary tract infections, history of NIDDM, history of hypertension, history of secondary hyperparathyroidism, metabolic acidosis secondary to chronic kidney disease, history of anemia secondary to chronic kidney disease, history of BPH, history of colostomy complicating a partial colectomy for bowel obstruction, history of hyperlipidemia, history of dementia and past history of pneumonia. The patient was seen by me 2 days ago in the TCU with a worsening renal parameters in the setting of stable CHF. Apparently, over the last 24 hours, he decompensated with increasing shortness of breath. He was sent to the emergency room, noted to be in pulmonary edema and sent to acute care. He currently remains on ionotropic therapy with a rising BUN and creatinine and is now on IV diuretic therapy, making excellent urine. The patient's and I had a discussion while he was in the TCU about the possible role for dialysis should his BUN and creatinine continue to worsen in the setting of progressive CHF and we decided he would not be a very good dialysis candidate because of his severe cardiomyopathy. PAST MEDICAL HISTORY: Significant for acute renal failure superimposed on chronic kidney disease stage IV; history of ASHD, status post CABG, status post PTCA stent; history of aortic abdominal aneurysm; history of cardiomyopathy, ejection fraction 15% with pulmonary hypertension; mitral regurgitation; tricuspid regurgitation; aortic insufficiency. Recent history of urinary tract infections, NIDDM, hypertension, secondary hyperparathyroidism, metabolic acidosis, history of anemia secondary to chronic kidney disease, BPH, hyperlipidemia, status post bowel obstruction with surgery and colostomy, history of dementia and past history of pneumonia. MEDICATIONS: Present medications in the hospital include that of aspirin, amiodarone, Coreg, DuoNeb, Feosol, Flomax, insulin, IV Lasix, Levemir, Lipitor, Nuvigil, Pepcid, PhosLo, Solu-Medrol, IV Primacor drip, Proscar, sodium bicarbonate tablets and multivitamin. ALLERGIES: THE PATIENT HAS NO KNOWN ALLERGIES TO MEDICATIONS. SOCIAL HISTORY: No history of cigarette smoking. No history of alcohol use. FAMILY HISTORY: Unchanged from past and is noncontributory. REVIEW OF SYSTEMS: General 10+ systems reviewed with the patient. All negative except what is noted above. His is supplying the details. The patient is currently asleep and noncommunicative. PHYSICAL EXAMINATION: GENERAL: The patient is currently seen on telemetry, 2R. He appears to be somewhat comfortable. He is making excellent amount of urine with a Grimaldo catheter in place. VITAL SIGNS: Blood pressure presently is 120/78. Heart rate 95. Temperature 97.4. Respiratory rate is 18. Pulse ox is 100% on oxygen via nasal cannula. HEENT: Shows him to be normocephalic, atraumatic. Conjunctivae are pale. Sclerae nonicteric. Eyes are closed. NECK: Supple. No neck vein distention or thyromegaly. No lymphadenopathy. No bruits. CHEST: Decreased breath sounds at the bases. Scattered rhonchi. No rales or wheezing. CARDIOVASCULAR: Shows a regular rate and rhythm with MR/TR/AI. The patient has a permanent pacemaker/AICD. No S3. No S4. No rub. ABDOMEN: Soft. Bowel sounds normal. No rebound. No guarding. No masses. BACK: No CVAT. No spinal tenderness. EXTREMITIES: Show 1 to 2+ pitting lower extremity edema with the patient lying supine in bed. No cyanosis or clubbing. Diminished lower extremity pulses. : Positive Grimaldo. NEURO: Shows him to be asleep, noncommunicative and nonresponsive to my a gentle attempt to wake him up. No asterixis noted. LABORATORY DATA AND IMAGING: EKG shows a normal sinus rhythm with APCs done in the emergency room yesterday. Admitting chest x-ray shows continued pulmonary edema. Pattern appears to be stable. LABORATORY DATA: CBC: White blood cell count 5.9, hemoglobin 8.9 with a platelet count of 229,000. Chemistries today show a sodium of 136, potassium 3.9, CO2 of 27 with a chloride of 98, BUN is 118, which is his highest level during the hospitalization and stay in the TCU. Creatinine is 3.8 at the upper range of his highest level. His best ranges have been in the mid to upper 2 range. Glucose is 140. Calcium is 8.8, phosphorus 4.7, magnesium 2.5. Liver enzymes are normal. Albumin is 2.8. Urine showed 5-10 white blood cells per high-power field, 0-2 red blood cells per high-power field. Microbiology: Blood cultures done in the TCU were negative at 24 hours. Last urine culture was negative on 09/18/2017. Previous urine cultures are positive for E-coli and Klebsiella. ASSESSMENT: 1. Acute renal failure superimposed on chronic kidney disease stage IV. My concern here is that the patient does require increasing doses of IV diuretic therapy to promote a diuresis. This is in the setting of ionotropic support in a patient with a cardiomyopathy with an ejection fraction of 15% and severe valvular heart disease. If things do not go well, the patient's BUN and creatinine will continue to rise. I did have a discussion with the patient's about the possibility of renal replacement therapy. I do feel he is a very poor candidate because of his ejection fraction of 15%. I think he will have significant hemodynamic instability with dialysis. 2. Status post urinary tract infection, Escherichia and Klebsiella. This was treated successfully during his previous stay in acute care and on the Transitional Care Unit. 3. History of cardiomyopathy, atherosclerotic heart disease, ejection fraction 15%, automatic implantable cardioverter-defibrillator and a permanent pacemaker. Valvular heart disease with mitral regurgitation/tricuspid regurgitation and aortic insufficiency. The patient will continue Primacor. The patient will also continue to receive IV diuretic therapy. We will need to monitor urine output closely and keep the patient in negative fluid balance with close monitoring of his renal parameters. 4. History of esp-[id number] diabetes mellitus. The patient is currently on insulin. 5. History of hypertension. Blood pressure is in the low normal range, on multiple cardiac medications and poor heart function. 6. History of secondary hyperparathyroidism. The patient will continue binder therapy and a renal diet. 7. History of metabolic acidosis. Present CO2 level was excellent at 27. The patient will continue oral sodium bicarbonate therapy. 8. History of anemia secondary to chronic kidney disease. The patient will continue receiving Aranesp therapy. His last iron saturations were acceptable. 9. History of benign prostatic hypertrophy, currently stable on medication. 10. History of hyperlipidemia, currently stable on statin and diet therapy. PLAN: 1. Discussed with the patient's in detail. I have explained to her that I do not feel that he has a great candidate for dialysis should his BUN and creatinine continue to rise. This will be a discussion we will have to have together with the patient together with Dr. Palacios should the patient come to the point that dialysis would become a serious consideration. 2. Continue to diurese the patient. Keep the patient in negative fluid balance. Monitor accurate I's and O's and try and follow daily weights on a bed scale. We must be cautious not to over diurese the patient as his BUN and creatinine will likely go significantly higher. At present, it does not appear that the patient has any uremic symptoms. 3. Continue to monitor labs on a daily basis. 4. Continue to follow the patient closely on telemetry. 5. Appreciate Pulmonary and Cardiology input. Thank you for letting me partake and share in the care of your patient once again. Mio Stoddard MD
[2017-09-23] MEDS: Albuterol-Ipratrop 3 mg / 0.5 (3 ml) UD IH SCH ×4 (02:07→21:03)
[2017-09-23] MEDS: Insulin Lispro (humaLOG) LOW Coverage SC SCH ×4 (07:43→21:48)
--- NOTE | 2017-09-23 08:34 | CON ---
DATE: 09/22/2017 REASON FOR CONSULTATION: Congestive heart failure, CAD, cardiomyopathy. BRIEF CLINICAL HISTORY: This is a 72-year-old male with past medical history significant for CAD, status post PTCA of LAD, cardiomyopathy, ischemic, on home Primacor, status post AICD, multiple admissions for CHF, who was in transitional care unit, was found to be more short of breath and congested, was transferred to the ICU, now the patient admitted to . Denies any chest pain, shortness of breath, any palpitations; now on Primacor. PAST MEDICAL HISTORY: Significant for ischemic cardiomyopathy on Primacor (milrinone), history of COPD, history of lung CA, history of recurrent pneumonia, history of urinary tract infection, history of colostomy, history of CVA, history of AAA, status post endovascular stent, history of paroxysmal atrial fibrillation, on Coumadin, history of renal insufficiency, CKD and acute kidney injury, history of PTCA to LAD by Dr. Dr. Fransico Cabral 3 years ago, history of AICD. SOCIAL HISTORY: Denies any history of alcohol abuse. CURRENT MEDICATIONS: The patient is taking Coumadin 2 mg, Flomax, multivitamin, sodium bicarb, Lasix, carvedilol, atorvastatin, aspirin, and IV Primacor. REVIEW OF SYSTEMS: As per HPI. PHYSICAL EXAMINATION: VITAL SIGNS: Temperature afebrile, heart rate 80 to 100, blood pressure 128/88. HEENT: PERRLA. Extraocular muscles intact. NECK: Supple. No carotid bruit or thyromegaly. CHEST: Clear to auscultation. HEART: S1 and S2 regular. ABDOMEN: Soft. EXTREMITIES: Clubbing and cyanosis negative. LABORATORY DATA: Blood workup as follows: WBC 5.9, hemoglobin 8.9, hematocrit 27.6, platelet count 229. Chemistry shows sodium , potassium 3.9, chloride , carbon dioxide 27, anion gap of 15, BUN 118, creatinine 3.8, total protein is 5.6, albumin 2.8, albumin globulin ratio 1. BNP 26,300. Chest x-ray, mild congestion noted, cannot rule out left lower lobe pneumonia. EKG showed sinus rhythm with APC's, left atrial abnormality, left posterior fascicular block, undetermined age. IMPRESSION: A 72-year-old male with history of endstage cardiomyopathy, ischemic, status post PTCA of LAD, ejection fraction 15% to 20%, status post AICD, history of paroxysmal atrial fibrillation, on Coumadin, history of recurrent pneumonia, urinary tract infection, endovascular stent, lung cancer, colostomy, was in transitional care unit, more congested, BNP elevated, chest x-ray consistent with congestive heart failure, and transferred to ICU. History of CKD on top of acute kidney injury, worsening renal insufficiency. RECOMMENDATIONS: We will continue Primacor, continue amiodarone for paroxysmal atrial fibrillation, continue Coumadin, goal is to keep INR between 2 to 2.5, today INR is 5.6, so we will hold Coumadin, follow up rest of the blood workup. Continue IV Lasix, monitor electrolytes, 1 dose of vitamin K was given this morning by [facility] nurse practitioner. We will repeat the blood workup tomorrow. We will follow. Overall, the patient's long-term prognosis is extremely guarded. Renal insufficiency, stage IV CKD disease, probably the patient may need soon dialysis getting in there. Arabella Mathews MD
[2017-09-23 08:53] LABS: GRAN # 6.7 (1.4-6.5); GRAN % 90.5 % (50.0-68.0); HEMOGLOBIN 9.4 g/dL (14.0-18.0); LYMPH # 0.5 (1.2-3.4); LYMPH % 6.5 % (22.0-35.0); MEAN CELL VOLUME 80.7 fl (80.0-105.0); MEAN CORPUSCULAR HEMOGLOBIN 25.1 pg (25.0-35.0); MEAN CORPUSCULAR HGB CONC 31.1 g/dl (31.0-37.0); MEAN PLATELET VOLUME 10.2 fl (7.0-11.0); MONO # 0.2 (0.1-0.6); RBC 3.74 10^6/uL (3.5-6.1); RED CELL DISTRIBUTION WIDTH 17.9 % (11.5-14.5); WHITE BLOOD COUNT 7.4 10^3/ul (4.5-11.0)
[2017-09-23 09:15] LABS: CALCIUM 8.9 mg/dL (8.4-10.5)
[2017-09-23 09:17] LABS: INR 2.43 (0.93-1.08); PROTHROMBIN TIME 28.5 SECONDS (9.4-12.5)
--- NOTE | 2017-09-23 09:58 | PN ---
DATE: 09/22/2017 PULMONARY PROGRESS NOTE REFERRING PHYSICIAN: Dr. Palacios. SUBJECTIVE: The patient is lying in the bed, head at 45 degrees. Sleepy, arousable. Night was unremarkable. Refused to use CPAP/BiPAP. On IV Primacor. No cough. No sputum production. No chest pain. Does not have appetite, does not want to eat. No leg swelling. OBJECTIVE: GENERAL: In no acute distress. VITAL SIGNS: Temp is 98, heart rate is 88, respiratory rate is 18, blood pressure 113/66, pulse ox 96% on nasal cannula. HEENT: Moist mucous membrane. Crowded airway. Mallampati score is IV. NECK: Supple. No JVD. LUNGS: Have fair airflow with few rhonchi. HEART: S1, S2. ABDOMEN: Soft, nontender. No organomegaly. Ileostomy bag draining well. EXTREMITIES: There is no edema. NEUROLOGIC: Awake, alert. Follows simple command. MEDICATIONS: He is on aspirin 81 mg, amiodarone is 200 mg daily, Coreg is 25 mg twice a day, DuoNeb q. 6 hours, ferrous sulfate 325 mg twice a day, Flomax 0.4 mg daily, Lasix 40 mg twice a day, Levemir 30 units subcu twice a day, Lipitor 10 mg daily, Nuvigil 150 mg daily, Pepcid 40 mg daily, calcium acetate with meals, prednisone 50 mg daily, Primacor IV drip, Proscar 5 mg daily, sodium bicarbonate 650 mg q. 6 hours, Solu-Medrol 20 mg q. 12 hours, multivitamins daily. LABORATORY DATA: Shows hemoglobin 8.9, hematocrit 27.6, WBC 5.9, platelet is 229. INR 5.16. Sodium 136, potassium 3.9, chloride 98, bicarbonate 27, BUN 118, creatinine 3.8, glucose 140, calcium is 8.8, phosphorus 4.7, magnesium 2.5. AST 28, ALT 29, alk phos is 113. Albumin is 2.8. Microbiology, blood culture has been negative. IMPRESSION AND PLAN: Pulmonary edema secondary to severe cardiomyopathy, on Primacor drip; renal failure; obstructive lung disease; history of lung cancer requiring radiation therapy in the past; anemia; history of with ileostomy. I spoke to the patient's at bedside. All the questions answered. He has extended-spectrum beta-lactamase. Pulmonary point of view, encouraged CPAP use, keep head at 45 degrees, continue daytime stimulant. Gastric prophylaxis. Sequential compression device to lower extremity. We will discontinue prednisone. Continue Solu-Medrol. Thank you and we will follow up with you. Arabella Alva MD
[2017-09-23] MEDS: Insulin Detemir 100 units/ml Vial (Levemir) SC SCH ×2 (10:33→18:39)
[2017-09-23] MEDS: Multivitamin Therapeutic Tab PO SCH (10:33)
[2017-09-23] MEDS: MethylPREDNISolone 40 mg Vial IVP SCH ×2 (10:33→22:09)
--- NOTE | 2017-09-23 13:09 | PN ---
DATE: REASON FOR THE CONSULTATION AND FOLLOWUP: Congestive heart failure, CAD, cardiomyopathy. SUBJECTIVE: The patient denies any chest pain, shortness of breath, or any palpitation. OBJECTIVE: GENERAL: Not in any apparent distress. The patient did not give the blood today and refused. VITAL SIGNS: Temperature afebrile, heart rate 101, blood pressure 125/71. HEENT: PERRLA. Extraocular muscles intact. NECK: Supple. No carotid bruit. No thyromegaly. CHEST: Clear to auscultation. HEART: S1 and S2, regular. ABDOMEN: Soft. EXTREMITIES: Clubbing and cyanosis negative. LABORATORY DATA: Blood workup as follows. Today, the patient refused blood workup. After convincing, the patient agreed to give the blood as follows; WBC 7.4, hemoglobin 9.2, hematocrit 30.2, platelet count 233. SMA-7 and PTT pending. IMPRESSION: Status post Coumadin toxicity, decompensated congestive heart failure, yesterday INR was 5.16, coronary artery disease, renal insufficiency acute kidney injury on chronic renal insufficiency. Cardiac mercedes, ejection fraction 15%, on Primacor. Stage 4 chronic kidney disease, cardiomyopathy, status post endovascular repair, lung cancer, colostomy, history of percutaneous transluminal coronary angioplasty of left anterior descending. RECOMMENDATIONS: I have convinced the patient to give the stat PT/INR. Continue aspirin. Continue amiodarone. Continue Coreg. History of paroxysmal atrial fibrillation. We will follow with you. Overall, the patient's cardiac long-term prognosis is guarded. Probably, the patient may need the dialysis in the [facility]. Discussed with Dr. Palacios yesterday. We will load him with amiodarone to suppress the fast heart with AFib. We will put amiodarone 200 mg from Tuesday and give today and tomorrow 400 to slow the heart rate. We reordered a stat PT/INR, so we can adjust the dose of Coumadin as well as if he needs reverse if it is high. Arabella Mathews MD
[2017-09-24] MEDS: Milrinone 20mg/100ml D5W 100 ML IV PRN ×2 (01:36→14:51)
[2017-09-24] MEDS: Albuterol-Ipratrop 3 mg / 0.5 (3 ml) UD IH SCH ×4 (02:58→19:17)
[2017-09-24 07:09] LABS: GRAN # 7.03 (1.4-6.5); GRAN % 92.1 % (50.0-68.0); HEMOGLOBIN 9.1 g/dL (14.0-18.0); LYMPH # 0.3 (1.2-3.4); LYMPH % 4.2 % (22.0-35.0); MEAN CELL VOLUME 81.6 fl (80.0-105.0); MEAN CORPUSCULAR HEMOGLOBIN 25.7 pg (25.0-35.0); MEAN CORPUSCULAR HGB CONC 31.5 g/dl (31.0-37.0); MEAN PLATELET VOLUME 10.7 fl (7.0-11.0); MONO # 0.3 (0.1-0.6); MONO % 3.7 % (1.0-6.0); PLATELET COUNT 225 10^3/uL (120.0-450.0); RBC 3.54 10^6/uL (3.5-6.1); RED CELL DISTRIBUTION WIDTH 18.3 % (11.5-14.5); WHITE BLOOD COUNT 7.6 10^3/ul (4.5-11.0)
[2017-09-24 07:22] LABS: INR 1.89 (0.93-1.08)
[2017-09-24 07:35] LABS: ALBUMIN 2.8 g/dL (3.0-4.8); CALCIUM 8.8 mg/dL (8.4-10.5)
[2017-09-24 07:51] LABS: LYMPHOCYTE 2 % (22.0-35.0); MONOCYTE 3 % (1.0-6.0); NEUTROPHIL 95 % (50.0-70.0); PLATELET ESTIMATE NORMAL (NORMAL)
[2017-09-24] MEDS: Insulin Lispro (humaLOG) LOW Coverage SC SCH ×4 (08:16→21:31)
[2017-09-24] MEDS: Multivitamin Therapeutic Tab PO SCH (08:17)
[2017-09-24] MEDS: Insulin Detemir 100 units/ml Vial (Levemir) SC SCH ×2 (09:46→17:25)
[2017-09-24] MEDS: MethylPREDNISolone 40 mg Vial IVP SCH (09:46)
--- NOTE | 2017-09-24 12:19 | CP.PCM.PN ---
Subjective - Date & Time of Evaluation Date of Evaluation: 09/24/17 Time of Evaluation: 10:00 - Subjective Subjective: Seen and examined by me and Dr. Lopez Reason for consultation and follow up:Cardiomyopathy,congestive heart failure, coronary artery disease Denies chest pain and shortness of breath, at bedside Objective - Vital Signs/Intake and Output Vital Signs (last 24 hours): Temp Pulse Resp BP Pulse Ox 97.5 F L 100 H 18 104/61 100 09/24/17 06:00 09/24/17 10:00 09/24/17 06:00 09/24/17 09:40 09/24/17 06:00 Intake and Output: 09/24/17 09/24/17 06:59 18:59 Intake Total 165 Output Total 25 Balance 140 - Medications Medications: Current Medications Albuterol/Ipratropium (Duoneb 3 Mg/0.5 Mg (3 Ml) Ud) 3 ml IH [id number] [facility] Last Admin: 09/24/17 08:02 Dose: 3 ml Amiodarone HCl (Cordarone) 200 mg PO DAILY [facility] Amiodarone HCl (Cordarone) 400 mg PO TID [facility] Stop: 09/24/17 23:59 Last Admin: 09/24/17 09:48 Dose: 400 mg Armodafinil (Nuvigil 150 Mg Tab) 150 mg PO DAILY [facility] Last Admin: 09/24/17 09:48 Dose: 150 mg Aspirin (Aspirin Chewable) 81 mg PO DAILY [facility] Last Admin: 09/24/17 09:48 Dose: 81 mg Atorvastatin Calcium (Lipitor) 10 mg PO DIN [facility] Last Admin: 09/23/17 18:37 Dose: 10 mg Calcium Acetate (Phoslo) 667 mg PO WM [facility] Last Admin: 09/24/17 08:17 Dose: 667 mg Carvedilol (Coreg) 25 mg PO BID [facility] Last Admin: 09/24/17 09:47 Dose: 25 mg Darbepoetin Alfie (Aranesp) 60 mcg SC ONCE ONE Stop: 09/26/17 10:01 Famotidine (Pepcid) 40 mg PO HS [facility] Last Admin: 09/23/17 22:09 Dose: 40 mg Ferrous Sulfate (Feosol) 324 mg PO BID [facility] Last Admin: 09/24/17 09:47 Dose: 324 mg Finasteride (Proscar) 5 mg PO DAILY [facility] Last Admin: 09/24/17 09:48 Dose: 5 mg Furosemide (Lasix) 40 mg IVP BID [facility] Last Admin: 09/24/17 09:40 Dose: 40 mg Milrinone Lactate/Dextrose (Primacor 20mg/100ml D5w) 100 mls @ 7.171 mls/hr IV .[id number] PRN; Protocol; 0.28 MCG/KG/MIN PRN Reason: TITRATE PER MD ORDER Last Admin: 09/24/17 01:36 Dose: 0.28 mcg/kg/min, 7.171 mls/hr Insulin Detemir (Levemir) 30 unit SC BID [facility] Last Admin: 09/24/17 09:46 Dose: 30 unit Insulin Human Lispro (Humalog Low) 0 units SC ACHS [facility] PRN Reason: Protocol Last Admin: 09/24/17 08:16 Dose: 1 units Methylprednisolone (Solu-Medrol) 20 mg IVP Q12 [facility] Last Admin: 09/24/17 09:46 Dose: 20 mg Multivitamins (Thera Tab) 1 tab PO 0800 [facility] Last Admin: 09/24/17 08:17 Dose: 1 tab Tamsulosin HCl (Flomax) 0.4 mg PO 1830 [facility] Last Admin: 09/23/17 18:38 Dose: 0.4 mg - Labs Labs: 09/24/17 06:30 09/24/17 06:30 PT 22.0 SECONDS (9.4-12.5) H 09/24/17 06:30 INR 1.89 (0.93-1.08) H 09/24/17 06:30 APTT 31.0 Seconds (25.1-36.5) 09/20/17 22:51 - Constitutional Appears: No Acute Distress - Head Exam Head Exam: NORMAL INSPECTION - Eye Exam Eye Exam: Normal appearance - Respiratory Exam Respiratory Exam: Decreased Breath Sounds, Clear to Ausculation Bilateral, NORMAL BREATHING PATTERN - Cardiovascular Exam Cardiovascular Exam: +S1, +S2 Additional comments: Chronic Atrial fibrillation - GI/Abdominal Exam GI & Abdominal Exam: Soft, Hypoactive Bowel Sounds - Neurological Exam Neurological Exam: Alert, Awake - Psychiatric Exam Psychiatric exam: Flat Affect - Skin Skin Exam: Dry, Intact, Warm (Bed bound) Assessment and Plan - Assessment and Plan (Free Text) Assessment: Impression: decompensated congestive heart failure, cardiomyopathy, coronary artery disease,EF 15%,status post endovascular repair, chronic renal insufficiency, lung cancer, colostomy, status PTCA of left anterior descending Plan: Stable right now Continue Aspirin,Amiodarone,Coreg, Lasix and Primacor drip Condition guarded Will follow up Plan and treatment reviewed with Dr. Lopez
--- NOTE | 2017-09-24 15:35 | PN ---
DATE: SUBJECTIVE: The patient is currently seen on 2R, on his ionotropic drip, on IV Lasix. He is sleepy, but arousable. The patient remains grossly edematous. It appears that he is in a negative fluid balance as his weight has dropped from 188 pounds down to 180 pounds on today's bed scale. The patient's total intake was 1471 with an output of 2600 mL. The patient has an indwelling Grimaldo catheter. MEDICATIONS: List reviewed. The patient is currently on aspirin, amiodarone, Coreg, DuoNeb, Feosol, Flomax, Lasix IV, Levemir, Lipitor, Nuvigil, Pepcid, PhosLo, Primacor drip, Proscar, sodium bicarbonate at a reduced dose 650 mg twice a day, Solu-Medrol, and MultiVites. PHYSICAL EXAMINATION: INTAKE/OUTPUT: As noted above, 1471 in, 2600 out. VITAL SIGNS: Blood pressure 104/61, respiratory rate 18, pulse of 100 with a temperature of 97.5. HEENT: Shows him to be normocephalic, atraumatic. Conjunctivae are pale. Sclerae are nonicteric. NECK: Supple. No neck vein distention. CHEST: Decreased breath sounds at the bases. Scattered rhonchi. No rales or wheezing. CARDIOVASCULAR: Shows a regular rate and rhythm with MR/TR/AI. Positive AICD/permanent pacemaker. ABDOMEN: Soft. Bowel sounds are normal. No masses. EXTREMITIES: Show 1 to 2+ pitting edema of his lower extremity from the ankles up to the upper thighs. This is with the patient is lying supine in bed. No cyanosis, no clubbing. Diminished lower extremity pulses. NEUROLOGIC: Shows him to be sleepy, but alert. No asterixis noted. GENITOURINARY: Positive Grimaldo catheter. LABORATORY DATA AND IMAGING: CBC: White blood cell count today 7.6, hemoglobin stable 9.1, platelet count is 225,000. Chemistries today show potassium of 3.4 with a sodium of 136. CO2 is up to 30. BUN is up to 126, creatinine remains stable at 3.6. Glucose 167. Calcium 8.8, phosphorus 4.6 with a magnesium level of 2.4, albumin is 2.8. ASSESSMENT: 1. Acute renal failure superimposed on chronic kidney disease stage IV. My concern here is that the patient continues to require IV diuretics to try and correct his hypervolemic state. BUN is rising. Creatinine apparently remains stable. As noted in my previous notes, he is a very poor candidate for dialysis in light of his severe cardiomyopathy. He would likely have significant instability on hemodialysis and peritoneal dialysis. It is likely not an option for him, though he does have a very supportive . The patient has a colostomy. 2. Status post urinary tract infection with Escherichia coli and Klebsiella. This was successfully treated in the TCU. 3. History of severe cardiomyopathy, ejection fraction 15%, automatic implantable cardioverter-defibrillator with permanent pacemaker, history of valvular heart disease . 4. History of secondary hyperparathyroidism. The patient will continue binder therapy and a renal diet. 5. History of metabolic acidosis. CO2 levels up to 30. I will temporarily place bicarbonate on hold knowing that we will likely need to resume this at some point. 6. chronic kidney disease. Hemoglobin is 9.1. The patient will continue receiving Aranesp on an as needed basis. His iron saturations on last check were acceptable. Stable on medication. 7. History of hyperlipidemia, being controlled with statin and diet therapy. PLAN: 1. Again discussed with the patient's his renal parameters. I did explain to her that I do not feel he is a great candidate for hemodialysis and in light of his medical situation, peritoneal dialysis cannot be done, the patient has a colostomy. We will continue to monitor BUN and creatinine along with you. I will have a discussion together with Dr. Palacios and Cardiology and have a united plan of action should his BUN and creatinine continue to rise. 2. For right now, continue the patient in negative fluid balance, follow daily weights, and continue IV diuretic therapy. 3. Accurate I's and O's are possible as the patient has a Grimaldo catheter placed. 4. Continue to monitor the patient on telemetry. Mio Stoddard MD
--- NOTE | 2017-09-24 22:22 | PN ---
DATE: PULMONARY PROGRESS NOTE REFERRING PHYSICIAN: Dexter Palacios MD. SUBJECTIVE: The patient is lying in the bed, head at 45 degrees, sleepy, arousable. is at bedside. Nursing staff made an attempt to put PICC line, could not place in. Awaiting for Radiology intervention to get a PICC line in. No cough. No sputum production. No abdominal pain. No diarrhea. No leg pain. No leg swelling. OBJECTIVE: GENERAL: In no acute distress. VITAL SIGNS: Temp is 98, heart rate is 95, respiratory rate is 18, blood pressure 115/74, pulse ox 100% on nasal cannula. HEENT: Moist mucous membrane. Crowded airway. NECK: Supple. No JVD. LUNGS: Have a few crackles at the bases. HEART: S1 and S2. ABDOMEN: Soft, nondistended, ileostomy draining well. EXTREMITIES: There is no edema. NEUROLOGICAL: Awake and follows simple command. LABORATORY DATA: Shows hemoglobin 9.1, hematocrit 28.9, WBC 7.6, platelet is 225. INR 1.89. Sodium 136, potassium 3.4, chloride 98, bicarbonate is 30, BUN 126, 3.6, glucose 167, calcium 8.8, phosphorus 4.6, magnesium 2.4, AST 29, ALT 36, alk phos is 121, albumin is 2.8. Microbiology: Blood culture had been negative. MEDICATIONS: He is on Aranesp 60 mcg weekly, aspirin 81 mg daily, amiodarone mg 3 times a day, Coreg 25 mg twice a day, albuterol/Atrovent nebulizer q. 6 hours [id number], ferrous sulfate 325 mg twice a day, Flomax 0.4 mg daily, Lasix is 40 mg IV twice a day, Levemir 30 units subcu twice a day, Lipitor 10 mg daily, Nuvigil 150 mg daily, Pepcid 40 mg daily, he is on IV Primacor, Proscar 5 mg daily, Solu-Medrol 20 mg IV q. 12 hours, multivitamins daily. IMPRESSION AND PLAN: Pulmonary edema secondary to severe cardiomyopathy, milrinone dependent; renal failure; obstructive lung disease; history of lung cancer requiring radiation therapy; anemia; history of ileostomy. I spoke to the patient's at bedside. All the questions answered. Pulmonary point of view, doing okay. Keep head at 45 degrees. Has sleep apnea syndrome. Refusing to use continuous positive airway pressure/bilevel positive airway pressure. Bronchodilator, diuretics, amiodarone, beta yimi. Cardiology followup. Decrease Solu-Medrol. Thank you and we will follow with you. Arabella Alva MD
[2017-09-25] MEDS: Albuterol-Ipratrop 3 mg / 0.5 (3 ml) UD IH SCH ×4 (01:37→20:21)
--- NOTE | 2017-09-25 04:34 | PN ---
DATE: 09/22/2017 SUBJECTIVE: The patient was admitted from Telemetry because of congestive heart failure, and was in renal failure. He seems comfortable, has relatives around him. No distress. No fever. No nausea. No vomiting. The patient is getting Lasix IV 40 mg twice a day and seems improved in his clinical condition. Also, the patient currently is on IV milrinone. The patient . PHYSICAL EXAMINATION VITAL SIGNS: Temperature is 98, heart rate is 88, blood pressure 113/66, and the patient seems saturating at 98% on 3 liters. HEAD AND NECK: Normal. No JVD. No thyromegaly. CHEST: Clear, although diminished breath sounds. CARDIAC: First sound and second sound normal. systolic murmur. ABDOMEN: Soft, nontender. Colostomy bag is on the right side of his abdomen and there is no evidence of redness or excoriation of the skin. EXTREMITIES: Mild edema in the lower extremities. NEUROLOGIC: The patient with generalized weakness bilateral lower extremities is 3/5. He is moving both upper extremities, but weak. LABORATORY DATA: On 09/22/2017, shows white count 5.9, hemoglobin 8.9, hematocrit 27.6, platelets 226. His chemistry showed the following. Sodium 136, potassium 3.9, chloride 98, bicarbonate is 27, BUN 118, creatinine is 3.8, his blood sugar is 138, his phosphorus is 4.7, magnesium 2.5. Liver enzymes are normal. Total protein 5.6, albumin 2.8, globulin 2.8. IMPRESSION AND PLAN: 1. Acute worsening of his chronic congestive heart failure, acute exacerbation of systolic heart failure. Plan is to continue Lasix, continue IV milrinone. Followup Cardiology consult with Dr. Mathews. The patient has endstage cardiac failure, ejection fraction is 20%, currently on IV milrinone. We will continue current medicines for now. He may need hemodialysis or renal filtration to help his worsening heart failure. 2. Chronic renal failure with acute worsening. Still on IV Lasix, increased to twice a day. Seems improving in his condition. Plan, continue current therapy. Continue IV Lasix. Dr. Stoddard, Renal gift consultant, has seen the patient, and hemodialysis will be helpful; however, the patient is at high risk because of his comorbid illnesses. We will discuss with his family. 3. Cerebrovascular accident, chronic atrial fibrillation, and hypertension. Plan, continue Coumadin, monitor PT and INR. 4. Diabetes, insulin-dependent. Continue insulin regimen as it is. The patient is getting low insulin coverage. He is getting Levemir 30 b.i.d. plus Humalog low coverage. Continue current therapy. 5. Acute chronic obstructive pulmonary disease exacerbations. Continue nebulizer treatment. Continue inhaled bronchodilators. Should consider BiPAP machine therapy for this patient which may help his breathing if needed. At this time, he seems stable without any. He is on steroids and inhaled bronchodilators. Continue current therapy. We will follow up clinically. CURRENT MEDICATIONS: The patient is getting Aranesp 60 mg once for his anemia and aspirin 81 mg. The patient is also started on amiodarone 200 mg, started with amiodarone loading dose 400 mg 3 times a day, then 200 mg once a day, Coreg 25 mg b.i.d., nebulizer treatment, iron pills, Flomax, low insulin coverage plus Levemir 30 b.i.d., Lasix 40 mg IV b.i.d., Lipitor 10 mg p.o. at bedtime, Nuvigil 150 mg p.o. daily, Pepcid 40 mg p.o. at bedtime, PhosLo, and IV milrinone, the patient is currently getting 0.28 mcg/kg per minute, Solu-Medrol 20 mg IV has been decreased gradually from 3 times a day to 2 times a day, also multivitamins. Continue current therapy. Follow up with other gift consultant. Discussed with the family in detail the patient's condition. Dexter Palacios MD
--- NOTE | 2017-09-25 04:36 | PN ---
DATE: 09/23/2017 SUBJECTIVE: The patient is clinically stable, was planning to discharge him home but we could not because we could not change the PICC line, on IV milrinone and patient was stayed for Tuesday to be addressed. Patient denied any chest pain, any short of breath. He is still on IV Lasix twice a day. He is still on steroids. PHYSICAL EXAMINATION: VITAL SIGNS: As follow: On 09/23, temperature 97.3, heart rate 103, blood pressure 117/61, respirations 18, saturation 98% on room air. HEAD AND NECK: Normal. No JVD, no thyromegaly. CHEST: Clear. Good air entry. CARDIAC: First sound and second sound normal. There is systolic murmur. ABDOMEN: Soft, nontender, colostomy bag on the right side. There is an area of dependent edema on the belly and on the back of the chest area that is nontender and pitting edema on exam. NEUROLOGIC: Patient is alert, awake, oriented x3. He is bedridden and lower extremity weakness almost 3/5, both legs. Upper extremity seems normal, also . LABORATORY STUDIES: On 09/23, laboratory shows sodium 137, potassium 3.7, chloride 98, bicarb 30, BUN 120, creatinine is 3.7, blood sugar is 126. Liver function test is normal. Magnesium 2.5. AST, ALT, and alk phos is normal. Hematology shows white count 7.4, hemoglobin 9.4, hematocrit 30.2, platelets 233. IMPRESSION AND PLAN: 1. Acute congestive heart failure on top of chronic systolic heart failure with worsening heart failure, both systolic and diastolic. We will continue intravenous Lasix. We will consider hemofiltration/hemodialysis in the future if his condition did not respond to Lasix. At this time, he seems stable. Continue Lasix IV b.i.d. 2. Chronic renal failure. Continue current medications with Nephrology, seems stable. We discussed with family, son, daughter, , and patient that hemodialysis, hemofiltrations, IV access maybe we should do in the short future if his breathing condition did not improve with current medication, IV Lasix, and IV milrinone. 3. Chronic atrial fibrillation. Dr. Mathews put him on loading dose of amiodarone and will be on 200 mg once a day. We will continue that. We will continue Coumadin, warfarin, which has been on hold because of high PT/INR. We will resume it again and we will monitor his PT/INR. 4. Chronic obstructive pulmonary disease with tapering steroids, currently on intravenous Solu-Medrol twice a day. We will decrease it to once a day. 5. Chronic anemia, chronic atrial fibrillations, coronary artery disease, history of cerebrovascular accident, hypertension. Continue current therapy and we will follow up clinically. 6. Insulin-dependent diabetes. Continue insulin coverage and we will follow the patient clinically. Dexter Palacios MD
[2017-09-25] MEDS: Milrinone 20mg/100ml D5W 100 ML IV PRN ×2 (05:45→21:14)
[2017-09-25 07:13] LABS: GRAN # 11.26 (1.4-6.5); HEMOGLOBIN 9.4 g/dL (14.0-18.0); LYMPH % 7.9 % (22.0-35.0); MEAN CELL VOLUME 81.4 fl (80.0-105.0); MEAN CORPUSCULAR HEMOGLOBIN 26.1 pg (25.0-35.0); MEAN CORPUSCULAR HGB CONC 32.1 g/dl (31.0-37.0); MEAN PLATELET VOLUME 10.3 fl (7.0-11.0); MONO # 0.8 (0.1-0.6); MONO % 6.1 % (1.0-6.0); RBC 3.6 10^6/uL (3.5-6.1); RED CELL DISTRIBUTION WIDTH 18.5 % (11.5-14.5); WHITE BLOOD COUNT 13.1 10^3/ul (4.5-11.0)
[2017-09-25 07:22] LABS: INR 1.98 (0.93-1.08); PROTHROMBIN TIME 23.1 SECONDS (9.4-12.5)
[2017-09-25 07:30] LABS: ALBUMIN 2.9 g/dL (3.0-4.8); CALCIUM 8.7 mg/dL (8.4-10.5)
[2017-09-25] MEDS: Insulin Lispro (humaLOG) LOW Coverage SC SCH ×4 (07:46→23:52)
[2017-09-25] MEDS: Multivitamin Therapeutic Tab PO SCH (07:50)
[2017-09-25] MEDS: MethylPREDNISolone 40 mg Vial IVP SCH (09:46)
[2017-09-25] MEDS: Insulin Detemir 100 units/ml Vial (Levemir) SC SCH ×2 (09:49→17:16)
[2017-09-25] MEDS ORDERED: Potassium Chloride 10 mEq ER Tab PO ONE (13:37)
--- NOTE | 2017-09-25 15:42 | PN ---
DATE: 09/25/2017 LOCATION: The patient is in room 269, bed 1. REASON FOR CONSULTATION AND FOLLOWUP: Congestive heart failure, coronary artery disease, cardiomyopathy, renal failure. SUBJECTIVE: The patient lying flat in bed without any chest pain, shortness of breath or palpitation. PHYSICAL EXAMINATION VITAL SIGNS: Blood pressure 90/59, pulse is 80, the patient is afebrile, respirations 18 per minute. HEENT: Head is normocephalic. Eyes: Pupils are normal. Conjunctivae slightly pale. NECK: JVP low. Carotids are equal. THORAX: AP diameter normal. LUNGS: No significant rales. CARDIOVASCULAR: S1 and S2. Systolic murmur. ABDOMEN: The patient has colostomy. PERIPHERY: No clubbing. No cyanosis. LABORATORY DATA: WBC 13.1, hemoglobin 9.4, hematocrit 29.3, platelets 216,000. Sodium 135, potassium 3.4, BUN 127, creatinine 3.6. Random glucose 57. Calcium 8.7, phosphorus 4.5. AST and ALT normal. Total protein 5.7, bilirubin 2.9. DIAGNOSES: Decompensated congestive heart failure, renal failure, status post Coumadin toxicity. The patient's INR went up to 5.16 on 09/22/2017; on today's date, it is 1.98, renal failure, [id number] , severe cardiomyopathy with left ventricular ejection fraction of 15%. The patient on Pulmicort, status post endovascular repair of abdominal aortic aneurysm, history of lung cancer, colostomy, history of coronary angioplasty of left anterior descending artery, hyperkalemia. The patient also has atrial fibrillation. MEDICATIONS: The patient restarted on warfarin 2 mg daily, carvedilol 25 mg b.i.d., amiodarone 200 mg daily, aspirin 81 daily, ferrous sulfate 324 mg p.o. b.i.d., furosemide 40 mg IV b.i.d., insulin 30 units subcutaneous b.i.d., atorvastatin 10 mg daily, armodafinil 150 mg p.o. daily, Pepcid 40 mg at bedtime, calcium acetate 667 mg p.o. Tuesday and Tuesday, milrinone drip, Proscar 5 mg daily, methylprednisolone 20 mg IV daily. PLAN: We will continue present therapy and we will follow with you. The patient being also followed by Renal. Arabella Lopez MD
--- NOTE | 2017-09-26 00:09 | PN ---
DATE: 09/25/2017 PULMONARY PROGRESS NOTE REFERRING PHYSICIAN: Dexter Palacios MD. SUBJECTIVE: The patient is lying in the bed, head at 45 degrees, sleepy, arousable. Night was unremarkable. On and off mild cough. No shortness of breath. No chest pain. No nausea. No vomiting or any abdominal pain. No leg pain or leg swelling. OBJECTIVE: GENERAL: In no acute distress. VITAL SIGNS: Temp is 98, heart rate is 91, respiratory rate is 18, blood pressure 109/69, pulse ox 100% on room air. HEENT: Moist mucous membrane. Crowded airway. NECK: Supple. No JVD. LUNGS: Have a fair airflow. Few basilar crackles. HEART: S1 and S2. ABDOMEN: Soft, nontender. N organomegaly. EXTREMITIES: No significant edema. NEUROLOGICAL: Awake and alert. Follows simple command. MEDICATIONS: He is on Aranesp 60 mcg weekly, aspirin 81 mg daily, amiodarone 200 mg daily, Coreg 25 mg twice a day, Coumadin 2 mg will be given tonight, DuoNeb q. 6 hours, ferrous sulfate 324 mg twice a day, Flomax 0.4 mg daily, insulin coverage, Lasix 40 mg twice a day, Levemir 30 units subcu twice a day, Lipitor 10 mg daily, Nuvigil 150 mg daily, Pepcid 40 mg daily, PhosLo with the meals, Primacor IV, Proscar 5 mg daily, Solu-Medrol 20 mg IV daily, multivitamins daily. LABORATORY DATA: Shows hemoglobin is 9.4, hematocrit 29.3, WBC 13.1, platelet is 216. INR 1.98. Sodium 135, potassium 3.4, chloride 97, bicarbonate 27, BUN 127, creatinine 3.6, glucose 174, calcium 8.7, phosphorus 4.5, magnesium 2.4, AST 32, ALT 32, alk phos is 102. Albumin is 2.9. Microbiology: Blood culture negative. Urine culture has some yeast. IMPRESSION AND PLAN: Pulmonary edema secondary to severe cardiomyopathy, milrinone dependent, renal failure, obstructive lung disease, history of lung cancer, status post radiation therapy to the lung cancer, anemia, history of laparotomy, ileostomy. Spoke to the patient's at bedside. All the questions answered. Pulmonary point of view, keep head at 45 degrees, sleep apnea precaution, avoid nocturnal sedation. On daytime stimulant, on milrinone. Being followed by Cardiology. Pressure ulcer precaution. Thank you and we will follow with you. Arabella Alva MD
[2017-09-26] MEDS: Albuterol-Ipratrop 3 mg / 0.5 (3 ml) UD IH SCH ×4 (01:23→19:50)
[2017-09-26 06:52] LABS: GRAN # 10.37 (1.4-6.5); GRAN % 87.8 % (50.0-68.0); HEMOGLOBIN 8.6 g/dL (14.0-18.0); LYMPH % 8.1 % (22.0-35.0); MEAN CELL VOLUME 82.2 fl (80.0-105.0); MEAN CORPUSCULAR HGB CONC 31.6 g/dl (31.0-37.0); MEAN PLATELET VOLUME 10.2 fl (7.0-11.0); MONO # 0.5 (0.1-0.6); MONO % 4.1 % (1.0-6.0); RBC 3.31 10^6/uL (3.5-6.1); RED CELL DISTRIBUTION WIDTH 19.1 % (11.5-14.5); WHITE BLOOD COUNT 11.8 10^3/ul (4.5-11.0)
[2017-09-26 07:07] LABS: ALBUMIN 2.7 g/dL (3.0-4.8); CALCIUM 8.3 mg/dL (8.4-10.5)
[2017-09-26] MEDS: Insulin Lispro (humaLOG) LOW Coverage SC SCH ×4 (08:46→21:59)
[2017-09-26] MEDS: Multivitamin Therapeutic Tab PO SCH (08:49)
[2017-09-26] MEDS ORDERED: Darbepoetin Alfa 60 mcg/ml Inj SC ONE (10:00)
[2017-09-26 10:24] LABS: INR 2.43 (0.93-1.08); PROTHROMBIN TIME 28.4 SECONDS (9.4-12.5)
--- NOTE | 2017-09-26 10:45 | PN ---
DATE: 09/23/2017 SUBJECTIVE: Patient is seen lying in bed. He is awake, he is alert. PHYSICAL EXAMINATION: GENERAL: Elderly male, lying in bed. VITAL SIGNS: Blood pressure 125/71, heart rate 101, respiratory rate 20, temperature 97.8. HEENT: Normocephalic, atraumatic, positive pallor. NECK: Supple, no JVD. LUNGS: Bilateral equal air entry, bilateral equal expansion, no rales. CARDIAC: S1 and S2. Regular rate and rhythm. No murmur, no rub. ABDOMEN: Distended, soft, positive colostomy, bowel sounds present. EXTREMITIES: No lower extremity edema. INTAKE AND OUTPUT: 1471/2600. LABORATORY DATA: WBC 137, potassium 3.7, chloride 98, CO2 30, BUN 120, creatinine 3.7, glucose 126, calcium 8.9, phosphorus 4.3, magnesium 2.5. CURRENT MEDICATIONS: Aspirin, amiodarone, Coreg, DuoNeb, Feosol, Flomax, insulin, Lasix 40 IV b.i.d., Levemir, Lipitor, Nuvigil, Pepcid, PhosLo, milrinone, Proscar. ASSESSMENT: 1. Acute kidney injury superimposed on chronic kidney disease, stage IV, suspect prerenal azotemia in the setting of intravenous diuretics, negative balance. 2. History of cardiomyopathy, atherosclerotic heart disease, decreased ejection fraction, automatic implantable cardioverter-defibrillator, cardiorenal syndrome. 3. Non-insulin dependent diabetes mellitus. 4. Hypertension. 5. Anemia of chronic kidney disease. 6. Secondary hyperparathyroidism. 7. Dementia. PLAN: 1. Continue IV diuretics as per Cardiology recommendations, caution not to over diurese. 2. Monitor urine output closely. 3. Monitor electrolytes closely. 4. Change sodium bicarbonate to b.i.d. since the patient has metabolic alkalosis at present. Kaylen Crump MD
--- NOTE | 2017-09-26 10:52 | PN ---
DATE: 09/23/2017 PULMONARY PROGRESS NOTE REFERRING PHYSICIAN: Dr. Palacios. SUBJECTIVE: He is lying in the bed, head at 45 degrees. Nursing staff is getting ready to put PICC line. Not much cough. No sputum production. No abdominal pain. No diarrhea. No leg swelling reported. OBJECTIVE: GENERAL: In no acute distress. VITAL SIGNS: Temperature is 98, heart rate 103, respiratory rate is 20, blood pressure 121/81. HEENT: Moist mucous membrane. Crowded airway. NECK: Supple. No JVD. LUNGS: Has fair airflow with rhonchi. HEART: S1 and S2. ABDOMEN: Soft, nontender. No organomegaly. EXTREMITIES: There is no edema. NEUROLOGIC: Awake and alert, follows simple command. MEDICATIONS: He is on aspirin 81 mg daily, amiodarone 4 mg three times a day, Coreg 25 mg twice a day, DuoNeb q. 6 hours, ferrous sulfate 324 mg twice a day, Flomax 0.4 mg daily, insulin coverage, Lasix 40 mg IV twice a day, Levemir 30 units subcu twice a day, Lipitor 10 mg daily, Nuvigil 150 mg daily, Pepcid 40 mg at bedtime, calcium acetate 667 with meals. He is on milrinone drip, Proscar 5 mg daily, sodium bicarbonate 650 mg twice a day, Solu-Medrol 20 mg q. 12 hours, multivitamins daily. LABORATORY DATA: Shows hemoglobin 9.4, hematocrit 30.2, WBC 7.4, platelet is 233. INR 2.43. Sodium 137, potassium 2.7, chloride 98, bicarbonate 30, BUN 120, creatinine 3.7, glucose 126, calcium 8.9, phosphorus 4.3, magnesium 2.5, total bili 0.5, AST 30, ALT 38, alk phos is 118. Albumin is 3.0. Microbiology, blood culture has been negative. IMPRESSION AND PLAN: Pulmonary edema, has a severe cardiomyopathy, Primacor dependent, renal failure, obstructive lung disease, history of lung cancer status post radiation therapy, anemia, history of laparotomy, has an ileostomy bag, recurrent urinary tract infection. Pulmonary point of view, doing okay. Continue bronchodilator, keep head at 45 degrees. Has a sleep apnea syndrome, but he refused to use continuous positive airway pressure/bilevel positive airway pressure, understands risk of sleep apnea, on anticoagulation, on antiarrhythmic, noted that amiodarone loading dose is to be given. Thank you and we will follow with you. Arabella Alva MD
[2017-09-26] MEDS: MethylPREDNISolone 40 mg Vial IVP SCH (10:56)
[2017-09-26] MEDS: Insulin Detemir 100 units/ml Vial (Levemir) SC SCH ×2 (11:11→18:50)
[2017-09-26] MEDS ORDERED: Milrinone 20mg/100ml D5W 100 ML IV PRN (11:20)
[2017-09-26] MEDS: Milrinone 20mg/100ml D5W 100 ML IV PRN (11:31)
[2017-09-26] MEDS ORDERED: Midazolam 2 MG/2 ML VIAL ONE (14:07)
[2017-09-26] MEDS ORDERED: Lidocaine 2% Inj (20ml) ONE (14:09)
[2017-09-26] MEDS ORDERED: HEPARIN SODIUM/NS 1,000 ML IV ONE (14:09)
[2017-09-26] MEDS ORDERED: Iohexol 350mgl/ml 50 ML ONE (14:23)
--- NOTE | 2017-09-26 15:34 | PN ---
DATE: REASON FOR CONSULTATION AND FOLLOWUP: Congestive heart failure; coronary artery disease; cardiomyopathy; renal failure, worsening, on Primacor. SUBJECTIVE: Patient denies any chest pain, shortness of breath or any palpitation. OBJECTIVE GENERAL: Not in apparent distress. VITAL SIGNS: Temperature is afebrile, heart rate 81, blood pressure 113/70. HEENT: PERRLA. Extraocular muscles intact. NECK: Supple. No carotid bruit or thyromegaly. CHEST: Clear to auscultation. HEART: S1 and S2, regular. ABDOMEN: Soft. EXTREMITIES: Clubbing and cyanosis, negative. LABORATORY DATA: Blood workup as follows: WBC 11.8, hemoglobin 8.6, hematocrit 27.2, platelet count 184,000. Chemistry shows sodium 135, potassium 3.7, chloride 90, carbon dioxide 27, anion gap of 14, BUN 128, creatinine 4. Total protein 5.4, albumin 2.7, albumin globulin ratio 1. IMPRESSION: Worsening renal insufficiency, creatinine clearance is 15 mL an hour; acute kidney injury on chronic renal insufficiency; decompensated congestive heart failure, acute on chronic, secondary to systolic dysfunction, ejection fraction 15-20%; ischemic cardiomyopathy, status post percutaneous transluminal coronary angioplasty of left anterior descending artery; abdominal aortic aneurysm, status post endovascular stent; history of lung cancer; history of colostomy; history of paroxysmal atrial fibrillation, on anticoagulation, INR is 2.43. RECOMMENDATIONS: Continue Coumadin, goal is to keep INR between 2 to 2.5, we will adjust the dose of the Primacor because patient was on 0.28 gene/kg/min renal insufficiency, worsened, discussed with Elkin, pharmacist, and cut down the dose to 0.2 mcg/kg per minute. In answere the questions raised by Dr. Palacios to increase primacor may help the pt.? but since the patient has worsening renal insufficiency, dose to be adjusted and we will cut down to 0.2 to prevent toxicity. We will follow. Overall, the patient's condition is critical. Long-term prognosis is guarded. We will discuss with Dr. Palacios. Thank you Dr. Palacios for providing us the opportunity in taking care of the patient, [place]. Arabella Mathews MD [facility]
--- NOTE | 2017-09-26 16:21 | PN ---
DATE: 09/25/2017 SUBJECTIVE: The patient seems comfortable, breathing mercedes. No respiratory distress. No wheezing and seems to be doing well. The patient's blood pressure was kind of low and we will hold on the Lasix 40 mg IV twice a day and we will monitor his blood pressure. The patient is currently on IV milrinone increasing his body weight from before, we may consider increasing milrinone and discuss daily with Dr. Lopez. PHYSICAL EXAMINATION: VITAL SIGNS: Temperature 97, heart rate 92, blood pressure 109/69, and saturating good at 99% on 3 liters. HEAD AND NECK: Normal. No JVD. No thyromegaly. CHEST: Clear. No wheezing. CARDIAC: First sound and second sound normal. Systolic murmur. ABDOMEN: Soft. There is colostomy bag on the right side. EXTREMITIES: Less edematous. Both lower extremities are weak and just 2-3/5; in upper extremities, he is moving both of them 5/5, but he has some weakness. NEUROLOGICAL: Noted for general weakness. LABORATORY DATA: On 09/25/2017, his white count is 13.1, hemoglobin 9.4, hematocrit 29.3, platelets 216,000. Chemistry noted for sodium 135, potassium 3.4, chloride 97, bicarbonate 27, BUN 127, creatinine 3.6. His blood sugar was kind of low at 57. Liver function test was within normal range. IMPRESSION AND PLAN: 1. Acute worsening of his chronic congestive heart failure. Acute systolic on top of chronic systolic heart failure and acute diastolic heart failure worsening on top of chronic diastolic heart failure. At this time, we will hold off on Lasix. The patient seems clinically stable. His lung sound clear. No respiratory distress. Clinically, the patient is stable. 2. Acute worsening of his chronic renal failure. The patient is still making urine good enough. His inputs and outputs here on the 09/25/2017 is minus 280. He did have total 600 urine output. We will continue to monitor his fluid status. The patient's body weight was also 174 pounds. 3. Chronic atrial fibrillation. of amiodarone for prevention and currently on amiodarone or Cordarone 200 mg p.o. daily to prevent atrial fibrillation and control his heart rate in addition to Coreg 25 mg b.i.d. The patient was also given Coumadin for that a particular reason of atrial fibrillation. 4. Insulin-dependent diabetes. Continue insulin coverage. The patient is encouraged to increase his p.o. intake or may need to decrease his insulin to 25 units b.i.d. if continued low sugar. His blood sugar this morning is 57 and then, starts becoming very normal. 5. Chronic obstructive pulmonary disease with acute worsening. Continue Solu-Medrol 20 mg IV daily. He is stable on low dose IV steroids. We will consider changing to p.o. prednisone. Continue Nuvigil, which will keep him awake and we will continue oxygen and monitor his case of his breathing on a daily basis. 6. Iron-deficiency anemia, history of gastrointestinal bleeding, no . Hemoglobin is stable. 7. Leukocytosis. We will repeat CBC tomorrow, chemistries tomorrow. 8. Hypokalemia. We replace it, 10 mEq potassium and continue aspirin. 9. IV access problem. We may need to change the PICC line again and I will follow up on that. Continue current therapy. Dexter Palacios MD
--- NOTE | 2017-09-26 17:22 | PN ---
DATE: SUBJECTIVE: The patient is currently seen en route to having a PICC line placed. He appears to be in no acute distress. Discussion with his states that for the most part the patient is unchanged. He remains tired and sleepy. He has no acute uremic symptoms. His BUN is 128, stable over the last several days. His creatinine is up to 4.0. Discussions have been held with Dr. Palacios and Dr. Lopez about the possible need for dialysis should his numbers worsen. MEDICATIONS: Medication list reviewed. The patient is currently on aspirin, Cordarone, Coreg, Coumadin, DuoNeb, Feosol, Flomax, insulin, IV Lasix, Levemir, Lipitor, Nuvigil, Pepcid, PhosLo, Primacor, Proscar, Solu-Medrol and multivitamins. OBJECTIVE: INTAKE/OUTPUT. Intake 760, output 300. VITAL SIGNS: Blood pressure is 113/70, heart rate 81, temperature is 97.9. Respiratory rate is 20. HEENT: Shows him to be normocephalic, atraumatic. Conjunctivae are pale. Sclerae are nonicteric. NECK: Supple. No neck vein distention. CHEST: Slight decreased breath sounds at the bases. Scattered rhonchi. No rales or wheezing. CARDIOVASCULAR: Shows a regular rate and rhythm with MR/TR/AI. Positive AICD/permanent pacemaker. ABDOMEN: Soft. Bowel sounds normal. No masses. Positive colostomy. EXTREMITIES: Show 1+ pitting edema of his lower extremities from the ankles up to the thighs. Diminished lower extremity pulses. NEURO: Shows him to be sleepy, but alert. No asterixis noted. : Positive Grimaldo catheter. LABORATORY DATA AND IMAGING: CBC: White blood cell count today 11.8 with a hemoglobin of 8.6 and a platelet count of 184,000. Chemistries today showed normal electrolytes. BUN 128 with creatinine of 4.0. Calcium is 8.3, phosphorus 4.8, magnesium 2.4. Glucose is 110. Albumin is 2.7. ASSESSMENT: 1. Acute renal failure superimposed on chronic kidney disease stage IV. This is in the setting of advanced cardiorenal syndrome. As discussed with Dr. Palacios and Dr. Lopez, our last resort would be putting this patient on dialysis. I believe with his poor hemodynamics and low ejection fraction, this will likely lead to significant bouts of hypotension on dialysis, which would make dialysis more risky. 2. Status post urinary tract infection with Escherichia coli and Klebsiella. The patient was treated successfully in the Transitional Care Unit. 3. History of severe cardiomyopathy with valvular heart disease, ejection fraction 15%, history of automatic implantable cardioverter-defibrillator with permanent pacemaker. mitral regurgitation/tricuspid regurgitation/aortic insufficiency. 4. History of secondary hyperparathyroidism. The patient will continue renal diet and binder therapy. 5. History of metabolic acidosis. CO2 level is improved at 27. Sodium bicarbonate supplements have been placed on hold. 6. Anemia secondary to chronic kidney disease. Hemoglobin is 8.6. The patient will continue receiving Aranesp. His iron saturations have been acceptable. Last dose of Aranesp was on 09/26/2017. He could be dosed again on 10/03/2017. 7. History of hyperlipidemia, controlled with diet and statin therapy. PLAN: 1. Once again discussed with the patient's in detail. Our last resort is doing hemodialysis. At present, the patient might require high doses of diuretic therapy along with ionotropic support infusion via Primacor drip. If the patient's BUN and creatinine continue to rise or he develops any symptoms from the elevated BUN and creatinine, we can institute a trial of dialysis. 2. Continue the patient in negative fluid balance. 3. Continue IV Lasix. 4. Continue to monitor labs on a daily basis. 5. Continue Aranesp for correction of his anemia, which is secondary to chronic kidney disease. Mio Stoddard MD
--- NOTE | 2017-09-26 18:05 | VASCULAR ---
PROCEDURE: Ultrasound and fluoroscopic right internal jugular venous access port. CLINICAL HISTORY: Cardiomyopathy. Milirinone infusion. Needs port. PHYSICIAN(S): Isaías Infante M.D. TECHNIQUE: The relative risks and indications of the procedure were explained to the patient's through a pinsetter mechanic automatic and consent obtained. The patient was placed supine on the arteriogram table and the right neck and chest prepped and draped in the usual sterile fashion. Conscious sedation monitoring was provided throughout the procedure by a nurse. Antibiotics were given prior to the procedure. Under direct ultrasound guidance, the right internal jugular vein was punctured with a micro-puncture set. A 0.035 angled Glidewire was advanced into the IVC. A 4 cm incision was made below the right clavicle and the pocket blunted dissected. A 8 Portuguese single-lumen catheter, 24 cm long, was advanced to the SVC/RA junction. The catheter was trimmed and attached to the port. The port aspirates and injects easily. The port was placed in the pocket and closed in 2 layers. An access needle was placed. The patient tolerated the procedure well. IMPRESSION: Ultrasound and fluoroscopically placed right internal jugular venous access port.
[2017-09-26 18:52] VITALS: RESP 20
[2017-09-26 23:57] VITALS: O2SAT 97
[2017-09-27] MEDS: Albuterol-Ipratrop 3 mg / 0.5 (3 ml) UD IH SCH ×4 (01:18→20:21)
--- NOTE | 2017-09-27 01:35 | PN ---
DATE: PULMONARY PROGRESS NOTE REFERRING PHYSICIAN: Dexter Palacios MD SUBJECTIVE: He is lying in the bed, sleepy, arousable, son and are at the bedside. Primacor dose was increased. No cough. No sputum production. Gets short of breath with exertion. No nausea. No vomiting. No diarrhea. No leg swelling. OBJECTIVE: GENERAL: In no acute distress. VITAL SIGNS: Temperature is 98, heart rate 88, respiratory rate is 20, blood pressure 112/74. Pulse ox is 100% on 3 liters of nasal cannula. HEENT: Moist mucous membrane. Crowded airway. NECK: Supple. No JVD. LUNGS: Has a few crackles. HEART: S1 and S2. ABDOMEN: Soft, nontender, nondistended. Ileostomy bag is draining well. EXTREMITIES: There is no edema. NEUROLOGIC: Sleepy, arousable, follows simple command. MEDICATIONS: He is on aspirin 81 mg daily, amiodarone 200 mg daily, Coreg 25 mg twice a day, Coumadin 2 mg will be given tonight, albuterol/Atrovent nebulizer q. 6 hours, ferrous sulfate 324 mg twice a day, Flomax 0.4 mg daily, insulin coverage, Lasix 40 mg IV twice a day, Levemir 30 units subcu twice a day, Lipitor 10 mg daily, Nuvigil 150 mg daily, Pepcid 40 mg daily, PhosLo with meals, Primacor is 5 mL per hour, Proscar 5 mg daily, Solu-Medrol 20 mg daily, multivitamins daily. LABORATORY DATA: Shows hemoglobin 8.6, hematocrit 27.2, WBC 11.8, platelet count is 184. INR 2.43. Sodium 135, potassium 3.7, chloride 98, bicarbonate 27, BUN 128, creatinine 4, glucose 110, calcium 8.3, phosphorus 4.8, magnesium 2.4, AST 31, ALT 36, alk phos is 96. Albumin is 2.7. Microbiology, blood culture has been negative. Has a right side of the chest PICC line placement. IMPRESSION AND PLAN: Pulmonary edema secondary to severe cardiomyopathy, milrinone dependent; renal failure; obstructive lung disease; history of lung cancer, status post radiation therapy; anemia; history of laparotomy, ileostomy. I spoke to the patient's son and at bedside. All the questions answered. Continue milrinone, diuretics, afterload manager core, bronchodilator, anticoagulation, gastric prophylaxis, sleep apnea precaution, keep head elevated at 45 degrees. Follow up electrolyte in the morning. Thank you and we will follow with you. Arabella Alva MD
[2017-09-27 07:29] LABS: MEAN CELL VOLUME 82.4 fl (80.0-105.0); MEAN CORPUSCULAR HEMOGLOBIN 25.9 pg (25.0-35.0); MEAN CORPUSCULAR HGB CONC 31.5 g/dl (31.0-37.0); MEAN PLATELET VOLUME 10.5 fl (7.0-11.0); RBC 3.47 10^6/uL (3.5-6.1); RED CELL DISTRIBUTION WIDTH 19.5 % (11.5-14.5); WHITE BLOOD COUNT 10.9 10^3/ul (4.5-11.0)
[2017-09-27] MEDS: Milrinone 20mg/100ml D5W 100 ML IV PRN (08:19)
[2017-09-27] MEDS: Multivitamin Therapeutic Tab PO SCH (08:19)
[2017-09-27 08:20] LABS: ALB/GLOB RATIO 1.1 (1.1-1.8); ALBUMIN 2.8 g/dL (3.0-4.8); CALCIUM 8.3 mg/dL (8.4-10.5)
[2017-09-27] MEDS: Insulin Lispro (humaLOG) LOW Coverage SC SCH ×3 (08:20→18:45)
[2017-09-27] MEDS: MethylPREDNISolone 40 mg Vial IVP SCH (10:11)
[2017-09-27] MEDS: Insulin Detemir 100 units/ml Vial (Levemir) SC SCH ×2 (10:12→18:45)
[2017-09-27 13:03] VITALS: PULSE 86; TEMP 98.1
--- NOTE | 2017-09-27 14:01 | PN ---
DATE: REASON FOR CONSULTATION AND FOLLOWUP: Congestive heart failure; coronary artery disease; cardiomyopathy; renal failure, worsening, on Primacor. SUBJECTIVE: Patient denies any chest pain, shortness of breath or any palpitation. OBJECTIVE GENERAL: Family is at the bedside, not in apparent distress. VITAL SIGNS: Examination as follows; temperature afebrile, heart rate 89, blood pressure 110/75. HEENT: PERRLA. Extraocular muscles intact. NECK: Supple. No carotid bruit or thyromegaly. CHEST: Clear to auscultation. HEART: S1 and S2, regular. ABDOMEN: Soft. EXTREMITIES: Clubbing and cyanosis, negative. LABORATORY DATA: Blood workup as follows; WBC 10.9, hemoglobin 9.0, hematocrit 28.6, platelet count 184,000. Chemistry shows sodium 135, potassium 4, chloride 97, CO2 of 25, anion gap of 17, BUN 120, creatinine 3.6. IMPRESSION: Decompensated congestive heart failure, acute on chronic, secondary to systolic dysfunction, ejection fraction 15%; chronic kidney disease on acute kidney injury, diabetes, hypertension, hyperlipidemia, ischemic cardiomyopathy, status post percutaneous transluminal coronary angioplasty of left anterior descending artery, abdominal aortic aneurysm with endovascular stent, lung cancer. RECOMMENDATIONS: Continue renal adjusted dose of Primacor 0.2, yesterday it was decreased because of worsening renal insufficiency. His INR was 2.43 yesterday. Continue anticoagulation. Continue milrinone as mentioned above. Monitor electrolytes. Continue Lasix. We will discontinue telemetry. Overall, the patient's condition is critical. Long-term prognosis is guarded. We will follow with you. We will repeat SMA-7, PT/INR and CBC in the morning. Thank you Dr. Palacios for providing us the opportunity in taking care of the patient, [place]. Arabella Mathews MD
--- NOTE | 2017-09-27 14:40 | PN ---
DATE: 09/26/2017 SUBJECTIVE: This is a 72-year-old male patient was seen on 09/26/2017. The patient is breathing mercedes comfortable, no distress. No fever, no nausea, no vomiting. Colostomy bag in place and had a bowel movement. He is waiting for PICC line to be done by Dr. Isaías Infante. The team for PICC line could not do it, Dr. Isaías Infante will schedule it either today or tomorrow. The patient has no chest pain, no other complaints. IV milrinone has been increased by program development specialist and seems stable. PHYSICAL EXAMINATION VITAL SIGNS: On 09/26/2017, temperature 97.6, heart rate 92, blood pressure 107/74, respirations 20, saturation 97% on nasal cannula. HEAD AND NECK: Normal. No JVD. CHEST: Clear with diminished breath sounds. CARDIAC: First sound and second sound normal. There is systolic murmur. ABDOMEN: Soft, nontender. Colostomy bag in place. No infection, no redness. NEUROLOGIC: The patient moves all extremities. Lower extremity has weakness. The patient is bedridden. LABORATORY DATA: Laboratory study is as follows: White count is 11.8, hemoglobin 8.6, hematocrit 27.6, platelets 184,000. Chemistry: Sodium 135, potassium 3.7, chloride 98, bicarbonate 27, BUN 128 and creatinine is 4. His calcium is 8.3, phosphorus 4.8, magnesium 2.4. Liver function test is normal. Total protein a little bit low, 5.4 total protein. Albumin low, 2.7; globulin is normal at 2.7. IMPRESSION: 1. Acute respiratory distress due to multifactorial. 2. Acute worsening of his underlying chronic congestive heart failure as the patient has been getting diuretics and been getting IV milrinone, which has been increased in dose recently, stable at this time. 3. Acute chronic obstructive pulmonary disease exacerbation. The patient seems stable on IV steroids and nebulizer treatment. 4. History of paroxysmal atrial fibrillation. He is on milrinone plus Coumadin and baby aspirin, seems stable. 5. Chronic renal failure, BUN and creatinine is up probably related to prerenal, which could be due to cardiac dysfunctions or diuretics. In fact, we will continue to monitor, discuss with Nephrology provider contracting consultant. He is high risk for dialysis, however, we will keep that in the plan in case the patient had respiratory distress or worsening congestive heart failure with in spite of Lasix or the kidney stopped any urine production, then we will get into hemofiltrations or renal dialysis. 6. Insulin dependent diabetes, continue Levemir 30 units b.i.d. Continue insulin coverage. PLAN: Continue current therapy, follow up clinically. The patient will be discharged once the IV access has been done and continue milrinone at home. CURRENT MEDICATIONS: As follows: Aspirin 81 mg; milrinone 200 mg p.o. daily; Coreg 25 b.i.d.; Coumadin 2 mg once a day, has been on hold for the procedure; DuoNeb; iron pills 324 mg b.i.d.; Flomax once a day; insulin sliding scale low algorithm; Lasix 40 IV b.i.d., Levemir 30 units b.i.d., Lipitor 10 mg at bedtime, Nuvigil 150 mg p.o. daily, Pepcid 40 mg at bedtime, PhosLo, milrinone IV infusion, now the patient has been getting 0.2 mcg/kg per minute, which on a bump into 100 mL with 5.122 mL/hr per hour IV q. 19 hour and 32 minutes, Proscar 5 mg at bedtime, Solu-Medrol 20 mg IV daily, and multivitamins once a day. Continue current therapy. Follow up clinically. Dexter Palacios MD
--- NOTE | 2017-09-27 15:49 | CP.PCM.CON ---
History of Present Illness - History of Present Illness History of Present Illness: 72 year old male with PMH of healthcare-associated pneumonia, Severe cardiomyopathy with EF 10-15 %, paroxysmal atrial fibrillation, Coronary artery disease S/P stenting, history of aortic aneurysm, history of SVT, S/P AICD placement, S/P procedure on his prostate in 2012, S/P partial colectomy and colostomy, history of ESBL E. coli bacteremia was recently in the TRCU for continued treatment of UTI and continued medical therapy for CHF and CKD. While in the TCU the patient was noted to be more short of breath and he was transferred back to acute care portion of the hospital for further management of his CHF and CKD. He is currently on the milrinone drip and the dose has been increased and is also being seen by Nephrology for worsening renal failure. Cultures were also done on 09/20/2017 which showed yeast in the urine. Infectious Diseases consult is requested to further evaluate and manage. He is currently resting in bed, tired and weak. He has no fever or chills, no nausea or vomiting , no headache, no cough or colds, no chest pain, no abdominal pain, no diarrhea , no dysuria. Review of Systems - Review of Systems All systems: reviewed and no additional remarkable complaints except (as per HPI ) Past Patient History - Infectious Disease Hx of Infectious Diseases: None - Tetanus Immunizations Tetanus Immunization: Unknown - Past Medical History & Family History Past Medical History?: Yes - Past Social History Smoking Status: Former Smoker Alcohol: None Drugs: Denies - CARDIAC Hx Congestive Heart Failure: Yes Hx Hypertension: Yes - PULMONARY Hx Chronic Obstructive Pulmonary Disease (COPD): Yes - NEUROLOGICAL HX Cerebrovascular Accident: Yes - HEENT Hx HEENT Problems: Yes - RENAL Hx Renal Failure: Yes - ENDOCRINE/METABOLIC Hx Diabetes Mellitus Type 2: Yes - HEMATOLOGICAL/ONCOLOGICAL Hx Anemia: Yes - INTEGUMENTARY Hx Dermatological Problems: Yes Other/Comment: multiple moles around neck, red raised b/l groin rash, pt unwilling to turn to assess back, multiple skin discolorations to both arms - MUSCULOSKELETAL/RHEUMATOLOGICAL Hx Falls: Yes - GASTROINTESTINAL Hx Gastrointestinal Disorders: Yes - GENITOURINARY/GYNECOLOGICAL Hx Genitourinary Disorders: Yes Hx Reproductive Disorders: No - PSYCHIATRIC Hx Depression: Yes Hx Substance Use: No - SURGICAL HISTORY Hx Cardiac Catheterization: Yes Hx Open Heart Surgery: Yes - ANESTHESIA Hx Anesthesia: Yes Meds Home Medications: Home Medication List Medication Instructions Recorded Confirmed Type Amiodarone [Cordarone] 200 mg PO DAILY #30 tab 09/27/17 Rx Armodafinil 150 mg Tab [Nuvigil 150 mg PO DAILY tab 09/27/17 Rx 150 mg Tab] Aspirin [Aspirin Chewable] 81 mg PO DAILY chew 09/27/17 Rx Atorvastatin [Lipitor] 10 mg PO DIN tab 09/27/17 Rx Calcium Acetate [Phoslo] 667 mg PO WM tab 09/27/17 Rx Carvedilol [Coreg] 25 mg PO BID tab 09/27/17 Rx Famotidine [Pepcid] 40 mg PO HS tab 09/27/17 Rx Ferrous Sulfate [Feosol] 324 mg PO BID ect 09/27/17 Rx Finasteride [Proscar] 5 mg PO DAILY tab 09/27/17 Rx Furosemide [Lasix] 40 mg PO DAILY #30 vial 09/27/17 Rx Insulin Detemir [Levemir] 30 unit SC BID unit 09/27/17 Rx Multivitamin Therapeutic Tab 1 tab PO 0800 tab 09/27/17 Rx [Thera Tab] Tamsulosin [Flomax] 0.4 mg PO 1830 cap 09/27/17 Rx Warfarin [Coumadin] 2 mg PO 1800 #30 tab 09/27/17 Rx Allergies/Adverse Reactions: Allergies Allergy/AdvReac Type Severity Reaction Status Date / Time No Known Allergies Allergy Verified 09/18/17 15:44 - Medications Medications: Current Medications Albuterol/Ipratropium (Duoneb 3 Mg/0.5 Mg (3 Ml) Ud) 3 ml [id number] [facility] Last Admin: 09/26/17 19:50 Dose: 3 ml Amiodarone HCl (Cordarone) 200 mg PO DAILY [facility] Last Admin: 09/26/17 11:00 Dose: 200 mg Armodafinil (Nuvigil 150 Mg Tab) 150 mg PO DAILY [facility] Last Admin: 09/26/17 10:56 Dose: 150 mg Aspirin (Aspirin Chewable) 81 mg PO DAILY [facility] Last Admin: 09/26/17 10:56 Dose: 81 mg Atorvastatin Calcium (Lipitor) 10 mg PO DIN [facility] Last Admin: 09/26/17 18:04 Dose: 10 mg Calcium Acetate (Phoslo) 667 mg PO WM [facility] Last Admin: 09/26/17 18:04 Dose: 667 mg Carvedilol (Coreg) 25 mg PO BID [facility] Last Admin: 09/26/17 18:04 Dose: 25 mg Famotidine (Pepcid) 40 mg PO HS [facility] Last Admin: 09/26/17 21:19 Dose: 40 mg Ferrous Sulfate (Feosol) 324 mg PO BID [facility] Last Admin: 09/26/17 18:04 Dose: 324 mg Finasteride (Proscar) 5 mg PO DAILY [facility] Last Admin: 09/26/17 10:56 Dose: 5 mg Furosemide (Lasix) 40 mg IVP BID [facility] Last Admin: 09/26/17 18:04 Dose: 40 mg Milrinone Lactate/Dextrose (Primacor 20mg/100ml D5w) 100 mls @ 5.122 mls/hr IV .[id number] PRN; Protocol; 0.2 MCG/KG/MIN PRN Reason: TITRATE PER MD ORDER Last Admin: 09/26/17 11:31 Dose: 0.2 mcg/kg/min, 5.122 mls/hr Insulin Detemir (Levemir) 30 unit SC BID [facility] Last Admin: 09/26/17 18:50 Dose: Not Given Insulin Human Lispro (Humalog Low) 0 units SC ACHS [facility] PRN Reason: Protocol Last Admin: 09/26/17 21:59 Dose: Not Given Methylprednisolone (Solu-Medrol) 20 mg IVP DAILY [facility] Last Admin: 09/26/17 10:56 Dose: 20 mg Multivitamins (Thera Tab) 1 tab PO 0800 [facility] Last Admin: 09/26/17 08:49 Dose: 1 tab Tamsulosin HCl (Flomax) 0.4 mg PO 1830 [facility] Last Admin: 09/26/17 18:04 Dose: 0.4 mg Warfarin Sodium (Coumadin) 2 mg PO 1800 [facility] PRN Reason: Protocol Last Admin: 09/25/17 17:16 Dose: 2 mg Physical Exam - Constitutional Appears: Other (weak and tired) - Head Exam Head Exam: NORMAL INSPECTION - Neck Exam Neck exam: Negative for: Meningismus - Respiratory Exam Respiratory Exam: Decreased Breath Sounds - Cardiovascular Exam Cardiovascular Exam: +S1, +S2 - GI/Abdominal Exam GI & Abdominal Exam: Soft. absent: Tenderness Results - Vital Signs Recent Vital Signs: Last Vital Signs Temp 97.3 F L 09/26/17 18:00 Pulse 93 H 09/26/17 22:00 Resp 20 09/26/17 18:00 BP 112/74 09/26/17 18:04 Pulse Ox 100 09/26/17 16:14 - Labs Result Diagrams: 09/27/17 06:45 09/27/17 06:45 Labs: Laboratory Results - last 24 hr 09/26/17 09/26/17 09/26/17 06:30 06:30 06:30 WBC 11.8 H RBC 3.31 L Hgb 8.6 L Hct 27.2 L MCV 82.2 MCH 26.0 MCHC 31.6 RDW 19.1 H Plt Count 184 MPV 10.2 Gran % 87.8 H Lymph % (Auto) 8.1 L Runnels % (Auto) 4.1 Eos % (Auto) 0.0 L Baso % (Auto) 0.0 Gran # 10.37 H Lymph # (Auto) 1.0 L [place]unnels # (Auto) 0.5 Eos # (Auto) 0.0 Baso # (Auto) 0.00 PT 28.4 H INR 2.43 H Sodium 135 Potassium 3.7 Chloride 98 Carbon Dioxide 27 Anion Gap 14 BUN 128 H* Creatinine 4.0 H Est GFR ( Amer) 18 Est GFR (Non-Af Amer) 15 POC Glucose (mg/dL) Random Glucose 110 Calcium 8.3 L Phosphorus 4.8 H Magnesium 2.4 H Total Bilirubin 0.5 AST 31 ALT 36 Alkaline Phosphatase 96 Total Protein 5.4 L Albumin 2.7 L Globulin 2.7 Albumin/Globulin Ratio 1.0 L 09/26/17 09/26/17 09/26/17 07:37 11:30 16:34 WBC RBC Hgb Hct MCV MCH MCHC RDW Plt Count MPV Gran % Lymph % (Auto) Runnels % (Auto) Eos % (Auto) Baso % (Auto) Gran # Lymph # (Auto) Runnels # (Auto) Eos # (Auto) Baso # (Auto) PT INR Sodium Potassium Chloride Carbon Dioxide Anion Gap BUN Creatinine Est GFR ( Amer) Est GFR (Non-Af Amer) POC Glucose (mg/dL) 103 136 H 194 H Random Glucose Calcium Phosphorus Magnesium Total Bilirubin AST ALT Alkaline Phosphatase Total Protein Albumin Globulin Albumin/Globulin Ratio Assessment & Plan - Assessment and Plan (Free Text) Plan: Assessment yeast in the urine, probably contamination in a patient without SIRS or urinary signs/symptoms S/P UTI with ESBL Klebsiella and Proteus history of sepsis due to left upper lobe healthcare-associated pneumonia, probably atypical history of severe sepsis due to ESBL E. coli bacteremia, unclear source history of sepsis due to right sided healthcare-associated pneumonia history of UTI with carbapenem-resistant Klebsiella history of ESBL-producing Klebsiella bacteremia, secondary to the port S/P removal S/P treatment for healthcare-associated pneumonia history of C diff associated diarrhea history of UTI with yeast history healthcare-associated pneumonia Severe cardiomyopathy with EF 10-15 % paroxysmal atrial fibrillation Coronary artery disease S/P stenting history of aortic aneurysm history of SVT S/P AICD placement S/P procedure on his prostate in 2012 S/P partial colectomy and colostomy Plan will repeat urine cx and monitor off antibiotics or antifungals will monitor clinically
[2017-09-27 18:49] VITALS: BP 107/63
--- NOTE | 2017-09-27 22:31 | PN ---
DATE: 09/27/2017 PULMONARY PROGRESS NOTE REFERRING PHYSICIAN: Dexter Palacios MD. SUBJECTIVE: He is lying in the bed, being discharged home today. Feels better. is at bedside. No cough. No sputum production. No nausea. No vomiting or diarrhea. No leg pain or leg swelling. OBJECTIVE: GENERAL: In no acute distress. VITAL SIGNS: Temp is 98, heart rate is 86, respiratory rate is 20, blood pressure 107/63. HEENT: Moist mucous membrane. Crowded airway. NECK: Supple. No JVD. LUNGS: Have fair airflow with rhonchi. HEART: S1, S2. ABDOMEN: Soft, nontender. No organomegaly. Ileostomy bag looks okay. EXTREMITIES: There is no edema. NEUROLOGIC: Awake, alert. Follows simple command. MEDICATIONS: He is on aspirin 81 mg daily, amiodarone 200 mg daily, Coreg 25 mg twice a day, Coumadin 2 mg was given last night, DuoNeb q.6 hours, ferrous sulfate 324 mg twice a day, Flomax 0.4 mg daily, insulin coverage, Lasix 40 mg IV twice a day, Levemir 30 units subcu twice a day, Lipitor 10 mg daily, Nuvigil 150 mg daily, Pepcid 40 mg daily, Primacor IV drips, Proscar 5 mg daily, Solu-Medrol 20 mg daily and multivitamins daily. LABORATORY DATA: Reviewed and noted. Hemoglobin 9.0, hematocrit 28.6, WBC 10.9, platelet is 184. Sodium 135, potassium 4.0, chloride 97, bicarbonate 25, BUN 128, creatinine 3.6, glucose 327, calcium is 8.3, phosphorus 5.9, magnesium 2.4. AST 37, ALT 39, alk phos is 134. Albumin is 2.8. IMPRESSION AND PLAN: Pulmonary edema secondary to severe cardiomyopathy, milrinone dependent, renal failure, obstructive lung disease, history of lung cancer, status post radiation therapy, anemia, history of laparotomy and ileostomy. Being discharged home on milrinone drip, Lasix. Continue bronchodilator. Pressure ulcer precaution, gastric prophylaxis, anticoagulation, antiarrhythmic. Spoke to at bedside. All the questions answered. Thank you. Mohammad Nida, MD
--- NOTE | 2017-09-29 07:44 | DS ---
CHIEF COMPLAINT: Patient came in to telemetry unit because of acute congestive heart failure on top of chronic systolic heart failure. The patient was seen by pulmonary consult Dr. Alva, Cardiology consult Dr. Mathews, Renal consult Dr. Stoddard, and ID consult Dr. Elkins. Patient seems stable. Last urine culture was negative. Patient was on IV Lasix 40 b.i.d. Hemodynamically stable. Pulmonary-mercedes, seems stable, and his milrinone was increased to a new therapy and new level based on his weight and to improve his cardiac function, in addition to amiodarone for chronic recurrent atrial fibrillation. Patient also discussed the case with the in detail and was also discussed with his son and his daughter in detail. Patient's condition at this time is stable, but he does have poor prognosis due to multiorgan failure. At this time, discussed also hemodialysis; however, the patient seems stable. He is making urine and if necessary, patient did not complete his renal failure, symptomatic and worsen his congestive heart failure due to less urine output and body fluids increased. We will consider hemofiltrations or hemodialysis, and that will be the last option for him. Also it is risky because of his poor cardiac functions and possible hypotension during dialysis. At this time, the patient is stable, seen by multiple specialists and pulmonary-mercedes seems okay. We will discharge the patient to home to be followed as home visits for further treatments. PHYSICAL EXAMINATION: VITAL SIGNS: On discharge date, his vital sign is as follow: Temperature 98.1, heart rate 86, blood pressure 110/75, respirations 20. HEAD AND NECK: Normal. No JVD. No thyromegaly. CHEST: Clear bilaterally. CARDIAC: First and second sound normal. There is systolic murmur. ABDOMEN: Soft, nontender with colostomy bag seen, colostomy site is clean, no signs of infection. EXTREMITIES: There is no edema. NEUROLOGIC: Patient has weakness in both lower extremity. He is a bed-ridden and has a history of stroke with lower extremity weakness mainly and also his upper extremity, he moves both of them, but is weak. The patient is alert, awake oriented x3. LABORATORY DATA: His last laboratory study shows white count 10.9, hemoglobin 9, hematocrit 28.6, platelets 184. Chemistry shows sodium 135, potassium 4, chloride 97, bicarb 25, BUN 128, creatinine is 3.6, which is better than before. His blood sugars 290. The patient is on steroids. Calcium 8.3, phosphorous 5.9, magnesium 2.4 and his AST and ALT and bilirubin is normal. Alkaline phosphatase likely elevated at 134, total protein is 5.4, albumin 2.8, calcium 2.6. DISCHARGE DIAGNOSES: 1. Acute congestive heart failure on top of chronic systolic and diastolic heart failure. 2. Acute worsening of his chronic renal failure. 3. Acute chronic obstructive pulmonary disease exacerbation. 4. Chronic paroxysmal atrial fibrillation, recurrent. 5. Chronic anemia. 6. Hypertension. 7. Cerebral vascular accident. 8. Insulin dependent diabetes. 9. Prostate enlargement. PLAN: Plan is to discharge the patient on medications, new medication is amiodarone 200 mg once a day; Lasix, will continue 40 mg IV b.i.d. in addition to Zaroxolyn 2.5 mg every day plus also we will get the patient's Provigil and Nuvigil may be difficult, we will try to get him Nuvigil. At this time, we will continue the rest of medication including IV milrinone which increased already and continue the rest of the medication including Coumadin, aspirin, Proscar, multivitamins, Flomax 0.4, iron pills twice a day, bicarb three times a day, calcitriol 0.25 mcg p.o. three times a week, Tuesday, Tuesday and Tuesday and Lipitor 10 mg, Coreg 25 mg b.i.d., Pepcid 40 mg at bedtime, warfarin 2 mg daily, Levemir 3 units b.i.d. and he gets 5 units before meals and will be increased if his blood sugar is running high to 7 units before each meal. The patient also will be on prednisone 15 mg, tapered down to 5 mg over 5 to 6 days. Then, it will be discontinued. PhosLo 667 mg p.o. with meals and patient also has Provigil or Nuvigil. We will change it to Provigil if insurance approved, amiodarone 200 mg p.o. daily and IV milrinone also was continued. Patient should follow up as outpatient with his office visit . Continue current therapy. Dexter Palacios MD [facility] # [phone]
== END 2017-09-27 21:41 | disposition home or self-care (01) | DRG 291 ==
LOC: ED 21:58 → ERH 09-21 01:47 → 2RNO 09-21 03:06
PROVIDERS: ADMIT Internal Medicine; ATTEND Internal Medicine
PROC: 02HV33Z Insertion of Infusion Device into Superior Vena Cava, Percutaneous Approach (ICD-10-PCS; principal; 2017-09-26)
PROC: B543ZZA Ultrasonography of Right Jugular Veins, Guidance (ICD-10-PCS; 2017-09-26)
DX: I13.0 Hypertensive heart and chronic kidney disease with heart failure and stage 1 through stage 4 chronic kidney disease, or unspecified chronic kidney disease (principal); I50.23 Acute on chronic systolic (congestive) heart failure; N17.9 Acute kidney failure, unspecified; E87.3 Alkalosis; N18.4 Chronic kidney disease, stage 4 (severe); J44.1 Chronic obstructive pulmonary disease with (acute) exacerbation; N25.81 Secondary hyperparathyroidism of renal origin; E11.51 Type 2 diabetes mellitus with diabetic peripheral angiopathy without gangrene; E11.22 Type 2 diabetes mellitus with diabetic chronic kidney disease; I08.3 Combined rheumatic disorders of mitral, aortic and tricuspid valves; I48.0 Paroxysmal atrial fibrillation; E87.5 Hyperkalemia; G47.10 Hypersomnia, unspecified; I27.20 Pulmonary hypertension, unspecified; I25.5 Ischemic cardiomyopathy; I48.2 Chronic atrial fibrillation; D63.1 Anemia in chronic kidney disease; I44.5 Left posterior fascicular block; I25.10 Atherosclerotic heart disease of native coronary artery without angina pectoris; F03.90 Unspecified dementia, unspecified severity, without behavioral disturbance, psychotic disturbance, mood disturbance, and anxiety; G47.33 Obstructive sleep apnea (adult) (pediatric); N40.0 Benign prostatic hyperplasia without lower urinary tract symptoms; D50.9 Iron deficiency anemia, unspecified; E78.5 Hyperlipidemia, unspecified; Z86.73 Personal history of transient ischemic attack (TIA), and cerebral infarction without residual deficits; Z79.01 Long term (current) use of anticoagulants; Z95.5 Presence of coronary angioplasty implant and graft; Z93.3 Colostomy status; Z79.4 Long term (current) use of insulin; Z85.118 Personal history of other malignant neoplasm of bronchus and lung; Z87.01 Personal history of pneumonia (recurrent); Z87.891 Personal history of nicotine dependence; Z92.3 Personal history of irradiation; Z95.1 Presence of aortocoronary bypass graft; Z87.440 Personal history of urinary (tract) infections; Z91.19 Patient's noncompliance with other medical treatment and regimen; Z74.01 Bed confinement status

== ENCOUNTER 2017-10-02 23:47 | Inpatient (IN) | payer MEDICARE, MEDICAID ==
--- NOTE | 2017-10-03 01:18 | ED PDOC ---
Arrival/HPI - General Chief Complaint: Shortness Of Breath Time Seen by Provider: 10/02/17 23:50 Historian: Patient, Family - History of Present Illness Narrative History of Present Illness (Text): 10/03/17 01:18 A 72 year old male, whose past medical history includes CAD s/p stenting, history of aortic aneurysm, history of SVT, s/p AICD placement, s/p procedure on prostate (2012), s/p colostomy and colectomy, ESBL E. coli bacteremia, HCAP, severe cardiomyopathy with EF 10-15% and paroxysmal atrial fibrillation, was brought in by EMS to the emergency department complaining of shortness of breath. Family is worried patient may have an infection. Patient reported to the emergency department two weeks ago for shortness of breath, admitted to the Telemetry for CHF and discharged three days ago. Denies any fever, dizziness, headache or any other complaints at this time. PMD: Dr. Pederson Symptom Onset: Sudden Symptom Course: Unchanged Activities at Onset: Rest Context: Home Past Medical History - Provider Review Nursing Documentation Reviewed: Yes - Infectious Disease Hx of Infectious Diseases: None - Tetanus Immunization Tetanus Immunization: Unknown - Cardiac Hx Congestive Heart Failure: Yes Hx Hypertension: Yes Hx Pacemaker: Yes Other/Comment: milrinone drip 232 mg/290 D5W infusing from home - Pulmonary Hx Chronic Obstructive Pulmonary Disease (COPD): Yes - Neurological HX Cerebrovascular Accident: Yes - HEENT Hx HEENT Disorder: Yes - Renal Hx Renal Failure: Yes - Endocrine/Metabolic Hx Diabetes Mellitus Type 2: Yes - Hematological/Oncological Hx Anemia: Yes - Integumentary Hx Dermatological Disorder: Yes Other/Comment: multiple moles around neck, red raised b/l groin rash, pt unwilling to turn to assess back, multiple skin discolorations to both arms - Musculoskeletal/Rheumatological Hx Falls: Yes - Gastrointestinal Hx Gastrointestinal Disorders: Yes Hx Colostomy: Yes - Genitourinary/Gynecological Hx Genitourinary Disorders: Yes Hx Reproductive Disorders: No Other/Comment: #16 2wf - Psychiatric Hx Depression: Yes Hx Substance Use: No - Surgical History Hx Cardiac Catheterization: Yes Hx Coronary Stent: Yes (x3) Hx Open Heart Surgery: Yes Other/Comment: port rt upper chest - Anesthesia Hx Anesthesia: Yes - Suicidal Assessment Feels Threatened In Home Enviroment: No Family/Social History - Physician Review Nursing Documentation Reviewed: Yes Family/Social History: No Known Family HX Smoking Status: Former Smoker Hx Alcohol Use: No Hx Substance Use: No Hx Substance Use Treatment: No Allergies/Home Meds Allergies/Adverse Reactions: Allergies No Known Allergies Allergy (Verified 10/03/17 12:09) Home Medications: Home Meds Medication Instructions Recorded Confirmed Pantoprazole Sodium [Protonix] 40 mg PO DAILY 08/12/17 10/03/17 Calcitriol 0.25 mg PO MWF 08/26/17 10/03/17 Finasteride [Proscar] 5 mg PO DAILY 08/26/17 10/03/17 Atorvastatin [Lipitor] 10 mg PO DAILY 09/09/17 10/03/17 Ferrous Sulfate [Feosol] 325 mg PO BID 09/09/17 10/03/17 Sodium Bicarbonate Tab 650 mg PO TID 09/09/17 10/03/17 Review of Systems - Physician Review All systems were reviewed & negative as marked: Yes - Review of Systems Constitutional: absent: Fevers Respiratory: SOB Neurological: absent: Headache, Dizziness Physical Exam Vital Signs Reviewed: Yes Vital Signs Temp Pulse Pulse Resp BP Pulse Ox 10/03/17 18:59 98.6 F 80 20 116/51 L 97 10/03/17 18:53 98.6 F 10/03/17 18:00 76 108/74 10/03/17 17:23 98.5 F 88 77 18 127/74 10/03/17 15:26 98.5 F 88 22 127/74 96 10/03/17 12:00 84 18 132/78 96 10/03/17 11:07 77 111/57 L 10/03/17 11:06 77 111/57 L 10/03/17 10:59 84 18 117/57 L 96 10/03/17 10:57 86 19 117/57 L 96 10/03/17 07:57 84 19 133/82 96 10/03/17 07:03 75 18 123/67 99 10/03/17 05:26 98.7 F 77 16 123/81 95 10/03/17 04:25 16 97 10/03/17 04:24 87 14 120/74 97 10/03/17 03:24 109/68 10/03/17 02:35 82 109/63 10/03/17 02:30 73 17 109/63 97 10/03/17 01:15 89 16 117/70 94 L 10/03/17 00:30 16 93 L 10/03/17 00:25 98.6 F 10/03/17 00:06 97 H 16 117/70 95 Blood Pressure: Normal Pulse: Regular Respiratory Rate: Normal Appearance: Positive for: Comfortable Pain Distress: None Mental Status: Positive for: Alert and Oriented X 3 - Systems Exam Head: Present: Atraumatic, Normocephalic Extroacular Muscles: Present: EOMI Mouth: Present: Moist Mucous Membranes Respiratory/Chest: Present: Rales Cardiovascular: Present: Regular Rate and Rhythm, Normal S1, S2, Other (new port on the right side). No: Murmurs Abdomen: Present: Normal Bowel Sounds. No: Tenderness, Distention, Peritoneal Signs Back: Present: Normal Inspection Upper Extremity: Present: Normal Inspection. No: Cyanosis, Edema Lower Extremity: Present: Normal Inspection. No: Edema Neurological: Present: GCS=15, CN II-XII Intact, Speech Normal Skin: Present: Warm, Dry, Normal Color. No: Rashes Psychiatric: Present: Alert, Oriented x 3 Medical Decision Making ED Course and Treatment: 10/03/17 01:15 Impression: A 72 year old male with shortness of breath. Plan: -- EKG -- labs -- chest xray -- Urinalysis -- Primacor IV -- Reassess and disposition Prior Visits: Notes and results from previous visits were reviewed. Patient was last seen in the emergency department on 09/20/17 for evaluation of worsening shortness of breath. Patient was admitted to Telemetry for CHF, discharged on 09/28/17. Progress Notes: 10/03/17 01:34 EKG: Ordered, reviewed, and independently interpreted the EKG. Rate : 93 BPM Rhythm : NSR Interpretation : 1st degree AV block with occasional PVCs, nonspecific intraventricular conduction delay, nonspecific ST and T wave abnormality 10/03/17 02:57 Chest X-ray- Chronic CHF, as read by me. case d/w dr pederson accepts case 10/07/17 10:09 - Lab Interpretations Microbiology Results: Microbiology Results 10/03/17 02:00 Blood-Venous Blood Culture - Preliminary NO GROWTH AFTER 4 DAYS 10/03/17 01:30 Blood-Venous Blood Culture - Preliminary NO GROWTH AFTER 4 DAYS 10/03/17 02:00 Urine,Clean Catch Urine Culture - Final 50-100,000 CFU/ML. MULTIPLE SPECIES. SUGGEST REPEAT SPECIMEN. Lab Results: 10/03/17 02:00 10/03/17 02:00 Lab Results 10/03/17 02:00: Urine Color Yellow, Urine Appearance Sl cloudy, Urine pH 6.5, Ur Specific [place] 1.010, Urine Protein 100 H, Urine Glucose (UA) Negative, Urine Ketones Negative, Urine Blood Small H, Urine Nitrate Negative, Urine Bilirubin Negative, Urine Urobilinogen 0.2, Ur Leukocyte Esterase Large H, Urine RBC 2 - 5, Urine WBC 10 - 15, Ur Epithelial Cells 0 - 2, Urine Bacteria Trace 10/03/17 02:00: Sodium 136, Chloride 96 L, Potassium 2.5 L* D, Carbon Dioxide 33 , Anion Gap 11, BUN 105 H, Creatinine 3.4 H, Est GFR ( Amer) 22, Est GFR (Non-Af Amer) 18, Random Glucose 189 H, Calcium 8.3 L, Total Bilirubin 1.0, AST 34, ALT 41, Alkaline Phosphatase 118, Lactate Dehydrogenase 581, Total Creatine Kinase 47, Troponin I 0.11 D, NT-Pro-B Natriuret Pep 77123 H, Total Protein 5.2 L, Albumin 2.5 L, Globulin 2.7, Albumin/Globulin Ratio 0.9 L 10/03/17 02:00: pO2 125 H, VBG pH 7.59 H, VBG pCO2 38.0 L, VBG HCO3 36.5 H, VBG Total CO2 37.7 H, VBG O2 Sat (Calc) 99.7 H, VBG Base Excess 13.6 H, VBG Potassium 2.5 L*, Sodium 136.0, Chloride 100.0, Glucose 190 H, Lactate 0.6 L, FiO2 21.0, Venous Blood Potassium 2.5 L* 10/03/17 02:00: PT 19.1 H, INR 1.66 H, APTT 23.6 L 10/03/17 02:00: WBC 7.4 D, RBC 2.87 L, Hgb 7.5 L, Hct 23.2 L, MCV 80.8, MCH 26.1, MCHC 32.3, RDW 19.6 H, Plt Count 130, MPV 10.1, Gran % 86.3 H, Lymph % ( Auto) 8.4 L, [place] % (Auto) 4.6, Eos % (Auto) 0.7 L, Baso % (Auto) 0.0, Gran # 6.34, Lymph # (Auto) 0.6 L, [place] # (Auto) 0.3, Eos # (Auto) 0.1, Baso # (Auto) 0.00 I have reviewed the lab results: Yes - RAD Interpretation Radiology Orders: 10/03/17 01:10 CHEST PORTABLE [RAD] Stat 10/03/17 03:41 HEAD W/O CONTRAST [CT] Stat - EKG Interpretation Interpreted by ED Physician: Yes Type: 12 lead EKG - Medication Orders Current Medication Orders: Acetaminophen (Tylenol 325mg Tab) 650 mg PO Q4H PRN PRN Reason: Fever >100.5 F Acetylcysteine (Acetylcysteine 20%) 3 ml INH BID [facility] Last Admin: 10/06/17 20:29 Dose: 3 ml Amiodarone HCl (Cordarone) 200 mg PO DAILY [facility] Last Admin: 10/07/17 09:28 Dose: 200 mg MAR Pulse and Blood Pressure Document 10/07/17 09:28 JFR (Rec: 10/07/17 09:28 R [id number]) Pulse Pulse Rate (60-90) 91 Blood Pressure Blood Pressure (100/60-150/90) 154/91 Armodafinil (Nuvigil 150 Mg Tab) 150 mg PO DAILY [facility] Last Admin: 10/07/17 09:28 Dose: 150 mg Calcitriol (Rocaltrol) 0.25 mcg PO MWF [facility] Last Admin: 10/07/17 09:28 Dose: 0.25 mcg Carvedilol (Coreg) 25 mg PO BID [facility] Last Admin: 10/07/17 09:28 Dose: 25 mg MAR Pulse and Blood Pressure Document 10/07/17 09:28 JFR (Rec: 10/07/17 09:28 R [id number]) Pulse Pulse Rate (60-90) 91 Blood Pressure Blood Pressure (100/60-150/90) 154/91 Digoxin (Digoxin) 0.125 mg PO MWF [facility] Last Admin: 10/07/17 09:28 Dose: 0.125 mg MAR Apical Pulse Rate Document 10/07/17 09:28 JFR (Rec: 10/07/17 09:28 [id number]) Apical Pulse Rate Apical Pulse Rate (60-90 beats/min) 91 Finasteride (Proscar) 5 mg PO DAILY [facility] Last Admin: 10/07/17 09:28 Dose: 5 mg Furosemide (Lasix) 40 mg IV DAILY [facility] Last Admin: 10/07/17 09:28 Dose: 40 mg eMAR Start Stop Document 10/07/17 09:28 JFR (Rec: 10/07/17 09:29 [id number]) Intravenous Solution Start Date 10/07/17 Start Time 09:29 End Date 10/07/17 End time 09:31 Total Infusion Time 2 MAR Blood Pressure Document 10/07/17 09:28 JFR (Rec: 10/07/17 09:29 [id number]) Blood Pressure Blood Pressure (100/60-150/90) 154/91 Milrinone Lactate/Dextrose (Primacor 20mg/100ml D5w) 100 mls @ 4.817 mls/hr IV .[id number] PRN; Protocol; 0.2 MCG/KG/MIN PRN Reason: TITRATE PER MD ORDER Last Admin: 10/06/17 14:34 Dose: 0.2 mcg/kg/min, 4.817 mls/hr eMAR Start Stop Document 10/06/17 14:34 JFR (Rec: 10/06/17 14:35 [id number] Intravenous Solution Start Date 10/06/17 Start Time 14:35 MAR Pulse and Blood Pressure Document 10/06/17 14:34 JFR (Rec: 10/06/17 14:35 [id number] Pulse Pulse Rate (60-90) 65 Blood Pressure Blood Pressure (100/60-150/90) 130/70 Titration Intervention Document 10/06/17 14:34 JFR (Rec: 10/06/17 14:35 [id number] Titration Intake Cumulative Intake (Rx) 300 Waste Amount 0 Container Volume 100 Titration Dosing Titration Dose 0.2 IV Rate 4.817 Intake/Decrease Started/Running Cumulative Dose 60 Cefepime HCl (Maxipime 1gm) 1 gm in 100 mls @ 100 mls/hr IVPB Q24H ANTHONY PRN Reason: Protocol Last Admin: 10/06/17 14:36 Dose: 100 mls/hr eMAR Start Stop Document 10/06/17 14:36 JFR (Rec: 10/06/17 14:36 R [id number]) Intravenous Solution Start Date 10/06/17 Start Time 14:36 End Date 10/06/17 End time 15:36 Total Infusion Time 60 Iron Sucrose 200 mg/ Sodium (Chloride) 110 mls @ 110 mls/hr IVPB QOTHERDAY ANTHONY Stop: 10/14/17 10:59 Last Admin: 10/06/17 10:34 Dose: 110 mls/hr eMAR Start Stop Document 10/06/17 10:34 JFR (Rec: 10/06/17 10:34 R [id number]) Intravenous Solution Start Date 10/06/17 Start Time 10:34 End Date 10/06/17 End time 11:34 Total Infusion Time 60 Insulin Detemir (Levemir) 30 unit SC BID [facility] Last Admin: 10/07/17 09:29 Dose: 30 unit MAR Blood Glucose Document 10/07/17 09:29 JFR (Rec: 10/07/17 09:29 R [id number]) Blood Glucose Finger Stick Blood Glucose (70-120) 194 Subcutaneous Administrations Document 10/07/17 09:29 JFR (Rec: 10/07/17 09:29 R [id number]) Injection Site MAR Injection Site Right Arm Charges for Administration # of Subcutaneous Administrations 1 Levalbuterol HCl (Xopenex) 0.63 mg IH TIDRESP [facility] Last Admin: 10/07/17 08:21 Dose: 0.63 mg Linezolid (Zyvox) 600 mg PO BID ANTHONY PRN Reason: Protocol Multivitamins (Thera Tab) 1 tab PO DAILY [facility] Last Admin: 10/07/17 09:28 Dose: 1 tab Ondansetron HCl (Zofran Inj) 4 mg IVP Q8H PRN PRN Reason: Nausea/Vomiting Pantoprazole Sodium (Protonix Ec Tab) 40 mg PO DAILY [facility] Last Admin: 10/07/17 09:28 Dose: 40 mg Tamsulosin HCl (Flomax) 0.4 mg PO DAILY [facility] Last Admin: 10/07/17 09:28 Dose: 0.4 mg Warfarin Sodium (Coumadin) 1.5 mg PO 1800 [facility] PRN Reason: Protocol Last Admin: 10/06/17 18:09 Dose: Discontinued Medications Aspirin (Ecotrin) 81 mg PO DAILY [facility] Last Admin: 10/06/17 10:34 Dose: 81 mg Calcium Acetate (Phoslo) 667 mg PO WM [facility] Last Admin: 10/04/17 11:21 Dose: Darbepoetin Alfie (Aranesp) 60 mcg SC ONCE ONE Stop: 10/04/17 10:01 Last Admin: 10/04/17 10:57 Dose: Not Given Non-Admin Reason: Patient Refused Digoxin (Digoxin) 0.125 mg PO 1400 [facility] Ferrous Sulfate (Feosol) 324 mg PO BID [facility] Last Admin: 10/06/17 18:09 Dose: 324 mg Furosemide (Lasix) 20 mg IVP ONCE ONE Stop: 10/03/17 03:03 Last Admin: 10/03/17 03:24 Dose: 20 mg MAR Blood Pressure Document 10/03/17 03:24 LUZ ELENA (Rec: 10/03/17 03:24 LUZ ELENA [id number]) Blood Pressure Blood Pressure (100/60-150/90) 109/68 IVP Administration Document 10/03/17 03:24 LUZ ELENA (Rec: 10/03/17 03:24 LUZ ELENA [id number]) Charges for Administration # of IVP Administrations 1 Furosemide (Lasix) 20 mg IVP STAT STA Stop: 10/03/17 09:41 Furosemide (Lasix) 20 mg IVP STAT STA Stop: 10/03/17 09:41 Last Admin: 10/05/17 19:41 Dose: Milrinone Lactate/Dextrose (Primacor 20mg/100ml D5w) 100 mls @ 9.032 mls/hr IV .Q11H5M PRN; Protocol; 0.375 MCG/KG/MIN PRN Reason: TITRATE PER MD ORDER Last Admin: 10/04/17 01:36 Dose: 0.37 mcg/kg/min, 9 mls/hr eMAR Start Stop Document 10/04/17 01:36 TTC (Rec: 10/04/17 01:38 TTC [id number]) Intravenous Solution Start Date 10/04/17 Start Time 01:37 MAR Pulse and Blood Pressure Document 10/04/17 01:36 TTC (Rec: 10/04/17 01:38 TTC [id number]) Pulse Pulse Rate (60-90) 87 Blood Pressure Blood Pressure (100/60-150/90) 116/78 Titration Intervention Document 10/04/17 01:36 TTC (Rec: 10/04/17 01:38 TTC [id number]) Titration Intake Waste Amount 0 Container Volume 100 Titration Dosing Titration Dose 0.37 IV Rate 9 Intake/Decrease Started Vancomycin HCl (Vancomycin 1gm) 1 gm in 250 mls @ 167 mls/hr IVPB STAT STA PRN Reason: Protocol Stop: 10/03/17 03:28 Last Admin: 10/03/17 05:33 Dose: 167 mls/hr eMAR Start Stop Document 10/03/17 05:33 LUZ ELENA (Rec: 10/03/17 05:33 LUZ ELENA [id number]) Intravenous Solution Start Date 10/03/17 Start Time 03:30 End Date 10/03/17 End time 05:00 Total Infusion Time 90 Potassium Chloride (Potassium Chloride 20 Meq/100 Ml) 20 meq in 100 mls @ 50 mls/hr IVPB Q2H ANTHONY Stop: 10/03/17 06:44 Last Admin: 10/03/17 07:35 Dose: 50 mls/hr eMAR Start Stop Document 10/03/17 07:35 LUZ ELENA (Rec: 10/03/17 07:35 LUZ ELENA [id number]) Intravenous Solution Start Date 10/03/17 Start Time 03:30 End Date 10/03/17 End time 07:00 Total Infusion Time 210 Cefepime HCl (Maxipime 1gm) 1 gm in 100 mls @ 100 mls/hr IVPB 0500 ANTHONY PRN Reason: Protocol Last Admin: 10/03/17 05:45 Dose: 100 mls/hr eMAR Start Stop Document 10/03/17 05:45 LUZ ELENA (Rec: 10/03/17 05:45 LUZ ELENA [id number]) Intravenous Solution Start Date 10/03/17 Start Time 05:45 Magnesium Oxide (Mag-Ox) 400 mg PO BID [facility] Last Admin: 10/04/17 12:29 Dose: 400 mg Pneumococcal Polyvalent Vaccine (Pneumovax 23 Vaccine) 0.5 ml IM .ONCE ONE Stop: 10/03/17 18:18 Potassium Chloride (K-Dur 20 Meq Er Tab) 20 meq PO ONCE ONE Stop: 10/04/17 08:07 Last Admin: 10/04/17 11:20 Dose: Potassium Chloride (Potassium Chloride Oral Soln) 20 meq PO ONCE ONE Stop: 10/04/17 14:01 Last Admin: 10/04/17 18:50 Dose: 20 meq Potassium Chloride (K-Dur 20 Meq Er Tab) 20 meq PO ONCE ONE Stop: 10/05/17 19:09 Last Admin: 10/05/17 22:00 Dose: 20 meq Potassium Chloride (Potassium Chloride Oral Soln) 20 meq PO STAT STA Stop: 10/06/17 15:34 Last Admin: 10/06/17 16:16 Dose: 20 meq Warfarin Sodium (Coumadin) 2 mg PO 1800 ANTHONY PRN Reason: Protocol Last Admin: 10/05/17 17:41 Dose: 2 mg - Abbeyibe Statement The provider has reviewed the documentation as recorded by the Jasper Borja Provider Scribe Attestation: All medical record entries made by the Jasper were at my direction and personally dictated by me. I have reviewed the chart and agree that the record accurately reflects my personal performance of the history, physical exam, medical decision making, and the department course for this patient. I have also personally directed, reviewed, and agree with the discharge instructions and disposition. Disposition/Present on Arrival - Present on Arrival Any Indicators Present on Arrival: No History of DVT/PE: No History of Uncontrolled Diabetes: Yes Urinary Catheter: Yes History of Decub. Ulcer: No History Surgical Site Infection Following: None - Disposition Have Diagnosis and Disposition been Completed?: Yes Diagnosis: Congestive heart failure (CHF) Disposition: HOSPITALIZED Disposition Time: 04:00 Condition: FAIR
[2017-10-03 02:19] LABS: VENOUS BLOOD GAS BASE EXCESS 13.6 mmol/L (0.0-2.0); VENOUS BLOOD GAS PO2 125 mm/Hg (30-55); VENOUS BLOOD PH 7.59 (7.32-7.43)
[2017-10-03 02:23] LABS: PH,URINE 6.5 (4.7-8.0); URINE BILIRUBIN NEGATIVE (NEGATIVE); URINE BLOOD SMALL (NEGATIVE); URINE GLUCOSE (UA) NEGATIVE (NEGATIVE); URINE LEUKOCYTE ESTERASE LARGE Leu/uL (NEGATIVE); URINE PROTEIN 100 mg/dL (<30 mg/dL); URINE UROBILINOGEN 0.2 E.U./dL (<1 E.U./dL)
[2017-10-03 02:24] LABS: EOS # 0.1 (0.0-0.7); EOS % 0.7 % (1.5-5.0); GRAN # 6.34 (1.4-6.5); GRAN % 86.3 % (50.0-68.0); HEMOGLOBIN 7.5 g/dL (14.0-18.0); LYMPH # 0.6 (1.2-3.4); LYMPH % 8.4 % (22.0-35.0); MEAN CELL VOLUME 80.8 fl (80.0-105.0); MEAN CORPUSCULAR HEMOGLOBIN 26.1 pg (25.0-35.0); MEAN CORPUSCULAR HGB CONC 32.3 g/dl (31.0-37.0); MEAN PLATELET VOLUME 10.1 fl (7.0-11.0); MONO # 0.3 (0.1-0.6); MONO % 4.6 % (1.0-6.0); RBC 2.87 10^6/uL (3.5-6.1); RED CELL DISTRIBUTION WIDTH 19.6 % (11.5-14.5); WHITE BLOOD COUNT 7.4 10^3/ul (4.5-11.0)
[2017-10-03 02:27] LABS: URINE APPEARANCE SL CLOUDY (CLEAR); URINE COLOR YELLOW (YELLOW)
[2017-10-03 02:30] LABS: URINE BACTERIA TRACE (NEG); URINE EPITHELIAL CELLS 0 - 2 /hpf (0-5)
[2017-10-03 02:35] LABS: INR 1.66 (0.93-1.08); PARTIAL THROMBOPLASTIN TIME 23.6 Seconds (25.1-36.5); PROTHROMBIN TIME 19.1 SECONDS (9.4-12.5)
[2017-10-03] MEDS: Milrinone 20mg/100ml D5W 100 ML IV PRN (02:35)
[2017-10-03 02:42] LABS: ALB/GLOB RATIO 0.9 (1.1-1.8); ALBUMIN 2.5 g/dL (3.0-4.8); CALCIUM 8.3 mg/dL (8.4-10.5)
[2017-10-03 02:43] LABS: TROPONIN I 0.11 ng/mL
[2017-10-03] MEDS: Vancomycin 1gm in NS 250ml 1 GM/250 ML BAG IVPB STA ×2 (03:24→05:33)
[2017-10-03] MEDS ORDERED: Cefepime 1gm in NS 100ml 1 GM/100 ML BAG IVPB SCH (05:00)
--- NOTE | 2017-10-03 05:45 | CT ---
EXAM: CT Head Without Intravenous Contrast CLINICAL HISTORY: 72 years old, male; Signs and symptoms; Altered mental status/memory loss; Additional info: AMS TECHNIQUE: Axial computed tomography images of the head/brain without intravenous contrast. All CT scans at this facility use one or more dose reduction techniques, viz.: automated exposure control; ma/kV adjustment per patient size (including targeted exams where dose is matched to indication; i.e. head); or iterative reconstruction technique. Coronal and sagittal reformatted images were created and reviewed. COMPARISON: CT - HEAD W/O CONTRAST 2017-03-10 13:52 FINDINGS: Brain: Moderate to severe atrophy. No intracranial hemorrhage. No mass. Multiple scattered foci of decreased attenuation within periventricular/subcortical white matter. Probable chronic lacunar infarcts within basal ganglia and deep white matter. No definite edema. Ventricles: No hydrocephalus. Bones/joints: No acute fracture. Soft tissues: Mild scalp swelling. Vasculature: Atherosclerotic disease of intracranial arteries. Sinuses: Scattered minimal to mild mucosal thickening. Mastoid air cells: Opacification of RIGHT mastoid, stable. Partial opacification of LEFT mastoid, stable. Orbits: Unremarkable as visualized. IMPRESSION: 1. Nonspecific white matter changes. Acute infarction may be CT occult within first 24 hours. If a focal deficit persists, consider followup CT or MRI for further evaluation. 2. Incidental/non-acute findings are described above.
--- NOTE | 2017-10-03 09:39 | RAD ---
HISTORY: sob COMPARISON: 09/20/2017 FINDINGS: LUNGS: There is vascular congestion with bilateral perihilar infiltrates PLEURA: No significant pleural effusion identified, no pneumothorax apparent. CARDIOVASCULAR: Mild cardiomegaly OSSEOUS STRUCTURES: No significant abnormalities. VISUALIZED UPPER ABDOMEN: Normal. OTHER FINDINGS: None. IMPRESSION: Vascular congestion and bilateral perihilar infiltrate
[2017-10-03] MEDS: Magnesium Oxide 400 mg Tab UD PO SCH ×2 (11:06→21:08)
[2017-10-03] MEDS: Pantoprazole 40 mg EC Tab PO SCH (11:07)
[2017-10-03] MEDS: Insulin Detemir 100 units/ml Vial (Levemir) SC SCH ×2 (11:09→21:09)
[2017-10-03] MEDS: Multivitamin Therapeutic Tab PO SCH (11:20)
--- NOTE | 2017-10-03 12:23 | CARD ---
APPROVED REPORT EKG Measurement Heart [id number] <Conclusion> Sinus rhythm with 1st degree AV block with occasional premature ventricular complexes Nonspecific intraventricular conduction delay Nonspecific ST and T wave abnormality
--- NOTE | 2017-10-03 12:58 | CON ---
DATE: 10/03/2017 The patient admitted for Dr. Palacios. REFERRING MD: Dexter Palacios MD. REASON FOR CONSULTATION: Evaluation of a patient well known to me who presents once again with congestive heart failure in the setting of advanced prerenal azotemia in the setting of a severe cardiomyopathy with hypokalemia. HISTORY OF PRESENT ILLNESS: The patient is a 72-year-old [place] white male with a history of acute renal failure superimposed on chronic kidney disease stage IV; history of ASHD, status post CABG, status post PTCA and stents; history of peripheral vascular disease; aortic aneurysm, status post repair; history of cardiomyopathy with an ejection fraction of 15%; recent history of E. coli and Klebsiella urinary tract infections; history of NIDDM; history of hypertension; history of secondary hyperparathyroidism; history of metabolic acidosis. History of anemia secondary to chronic kidney disease, history of BPH, history of colostomy complicating a partial colectomy for bowel obstruction, history of hyperlipidemia, dementia and history of pneumonia. The patient was discharged to home 5 days ago from the hospital. The patient returns with increasing shortness of breath. He is noted to have a potassium of 2.5 on admission. His metabolic acidosis has resolved. The CO2 was elevated at 33. BUN is slightly better than his recent baseline at 105 with a creatinine of 3.4. The patient's , Dr. Palacios and his greens cutter and I have had multiple discussions about the possibility of dialysis should his renal parameters worsen. We all feel that he would make a very poor hemodialysis candidate because of his cardiac instability. PAST MEDICAL HISTORY: Significant for that of acute renal failure superimposed on chronic kidney disease stage IV; ASHD, status post CABG, status post PTCA and stent; history of aortic abdominal aneurysm with repair; history of cardiomyopathy, ejection fraction 15%; history of MR/TR/AI. History of a permanent pacemaker, AICD. History of recent urinary tract infections and pneumonia. NIDDM. Hypertension. Pulmonary hypertension. Secondary hyperparathyroidism, metabolic acidosis, anemia secondary to chronic kidney disease, BPH, hyperlipidemia, status post bowel obstruction surgery with colostomy, history of dementia. HOME MEDICATIONS: Include that of Cordarone, Pepcid, Coreg, PhosLo, calcitriol, Ecotrin, Nuvigil, sodium bicarbonate, Protonix, multivitamins, mag oxide, Levemir, Lasix, Proscar, Feosol, Coumadin, Flomax and Lipitor. ALLERGIES: THE PATIENT HAS NO KNOWN ALLERGIES TO MEDICATIONS. CURRENT MEDICATIONS IN HOSPITAL: Include that of amiodarone, Coreg, Ecotrin, Feosol, Flomax, Levemir, mag oxide, cefepime, Nuvigil, PhosLo, Primacor drip, Proscar, Protonix, Rocaltrol, sodium bicarbonate, multivitamins and Tylenol p.r.n. SOCIAL HISTORY: No history of cigarette smoking. No history of alcohol use. FAMILY HISTORY: Unchanged from past encounter and is noncontributory. REVIEW OF SYSTEMS: Difficult to obtain from the patient as he remains sleepy and lethargic. His denies any issues other than what is noted above. 10+ systems reviewed with her. PHYSICAL EXAMINATION: GENERAL: The patient is currently seen in the emergency room. He is lying on a stretcher sleepy. Grimaldo catheter was placed. He remains on IV Primacor and he is receiving K riders. VITAL SIGNS: Blood pressure 133/82. Heart rate 84. Respiratory rate 19 with a pulse ox of 96%. Temperature is 98.7. HEENT: Exam shows him to be normocephalic, atraumatic. Conjunctivae are pale. Sclerae are nonicteric. Pupils are equal, reactive to light and accommodation. Extraocular muscles are intact. Posterior pharynx appears normal. NECK: Supple. No neck vein distention. No thyromegaly. No lymphadenopathy. No bruits. CHEST: Decreased breath sounds at the bases. Scattered rhonchi. Scattered rales. No wheezing. CARDIOVASCULAR: Shows a regular rate and rhythm with MR/TR/AI. AICD/permanent pacemaker. No S3. No S4. No rub. ABDOMEN: Soft. Bowel sounds normal. No rebound. No guarding. No masses. BACK: No CVAT. No spinal tenderness. EXTREMITIES: Show trace to 1+ pitting edema. Puffiness in his upper extremities bilaterally. No cyanosis or clubbing. He has diminished lower extremity pulses. : The patient has a Grimaldo catheter. NEURO: Shows him to be sleepy. Noncommunicative and not responsive to verbal stimulation likely because he is sleepy and lethargic. No asterixis noted. Of note, the patient does have a port in his right chest wall. LABORATORY DATA AND IMAGING: Admitting EKG showed a normal sinus rhythm. Admitting chest x-ray showed pulmonary vascular congestion with CHF. Admitting head CT scan showed no acute changes with chronic white matter infarcts. Labs, CBC, white blood cell count today 7.4, hemoglobin 7.5 down below his baseline levels. Platelet count is 130,000. Coags: PT of 19.1 with a PTT of 23.6. Blood gas showed a pH of 7.59, pO2 of 125 with a pCO2 of 38. Chemistries showed a sodium of 136, potassium low at 2.5, chloride 96. BUN 105, creatinine 3.4 within his baseline range. Glucose 189. Calcium is 8.3. Liver enzymes are normal. Troponin is 0.11. BNP is 18,800. Albumin is 2.5. Urine show 10-50 white blood cells per high-power field, 2-5 red blood cells per high-power field, 2+ protein, positive bacteria. Microbiology: All cultures are pending. ASSESSMENT: 1. Chronic kidney disease stage 4/5. When the patient receives large doses of diuretics, any diuresis, he becomes prerenal. This is a balancing act between advanced cardiorenal syndrome. Maintaining the patient euvolemic and avoiding a significant increase in his BUN and creatinine. At present, the patient appears to be stable within his baseline range. 2. Metabolic acidosis. This has resolved. If anything, the patient is alkalotic, which is likely contributing in part to the hypokalemia. Agree with potassium riders. I will discontinue sodium bicarbonate. 3. Possible recurrent urinary tract infection. Previously, he had an Escherichia coli and Klebsiella urinary tract infection. He is currently on the antibiotic therapy. Cultures are pending. 4. History of severe cardiomyopathy, atherosclerotic heart disease, status post percutaneous transluminal coronary angioplasty stent, ejection fraction is 15%. He has an automatic implantable cardioverter-defibrillator and a permanent pacemaker. He has valvular heart disease. The patient will continue on Primacor drip through the port to his right chest wall. We will try and keep the patient in negative fluid balance with close monitoring of his BUN and creatinine. Agree with the IV Lasix. 5. History of [id number] diabetes mellitus. The patient currently is on insulin. 6. History of hypertension. Blood pressure is in the low normal range, on current cardiac medications. 7. History of secondary hyperparathyroidism. The patient had been on a renal diet and binder therapy. Check phosphorus levels and restart these medicines. 8. History of metabolic acidosis. The patient is currently alkalotic. Sodium bicarbonate to be discontinued as this is likely contributing to the mild hypokalemia. 9. History of severe anemia. Secondary to chronic kidney disease. The patient will continue receiving Aranesp in the hospital and I will recheck his iron saturations. The last admission, they were acceptable. 10. History of benign prostatic hypertrophy, currently stable on medication. 11. History of hyperlipidemia. The patient should continue statin therapy. 12. History of bowel resection with colostomy. PLAN: 1. Agree with potassium supplements. 2. Continue IV Primacor infusion. 3. Agree with IV Lasix for treatment of CHF with close monitoring of his BUN, creatinine and electrolytes. 4. Restart phosphorus binders on an as-needed basis. 5. Continue renal diet. 6. Empirically treat his urinary tract infection. 7. Again, there are no plans for dialysis here as the patient is a poor candidate for dialysis. We will hopefully be able to optimize the patient with adjustment of his medical therapy. Thank you for letting me partake and share in the care of your patient. Mio Stoddard MD
[2017-10-03 13:56] LABS: IRON 12 ug/dL (45-180)
[2017-10-03] MEDS ORDERED: Digoxin 125 mcg (0.125 mg) Tab PO SCH (14:00)
[2017-10-03 14:09] LABS: % IRON SATURATION 5 % (20-55); TOTAL IRON BINDING CAPACITY 249 ug/dL (261-462)
--- NOTE | 2017-10-03 14:43 | CP.PCM.CON ---
History of Present Illness - History of Present Illness History of Present Illness: 72 year old male with PMH of healthcare-associated pneumonia, Severe cardiomyopathy with EF 10-15 %, paroxysmal atrial fibrillation, Coronary artery disease S/P stenting, history of aortic aneurysm, history of SVT, S/P AICD placement, S/P procedure on his prostate in 2012, S/P partial colectomy and colostomy, history of ESBL E. coli bacteremia came into [facility] because of increasing weakness and lethargy as noted by the . There is also note of increasing work of breathing. There was no note of fever, no vomiting, no convulsions, no diarrhea. Full ROS is unobtainable because the patient is lethargic. He was recently admitted in [facility] for CHF exacerbation as well as UTI. Infectious diseases consult is requested to further evaluate and manage. Review of Systems - Review of Systems All systems: reviewed and no additional remarkable complaints except (as per HPI ) Past Patient History - Infectious Disease Hx of Infectious Diseases: None - Tetanus Immunizations Tetanus Immunization: Unknown - Past Medical History & Family History Past Medical History?: Yes - Past Social History Smoking Status: Former Smoker - CARDIAC Hx Congestive Heart Failure: Yes Hx Hypertension: Yes Hx Pacemaker: Yes Other/Comment: milrinone drip 232 mg/290 D5W infusing from home - PULMONARY Hx Chronic Obstructive Pulmonary Disease (COPD): Yes - NEUROLOGICAL HX Cerebrovascular Accident: Yes - HEENT Hx HEENT Problems: Yes - RENAL Hx Renal Failure: Yes - ENDOCRINE/METABOLIC Hx Diabetes Mellitus Type 2: Yes - HEMATOLOGICAL/ONCOLOGICAL Hx Anemia: Yes - INTEGUMENTARY Hx Dermatological Problems: Yes Other/Comment: multiple moles around neck, red raised b/l groin rash, pt unwilling to turn to assess back, multiple skin discolorations to both arms - MUSCULOSKELETAL/RHEUMATOLOGICAL Hx Falls: Yes - GASTROINTESTINAL Hx Gastrointestinal Disorders: Yes Hx Colostomy: Yes - GENITOURINARY/GYNECOLOGICAL Hx Genitourinary Disorders: Yes Hx Reproductive Disorders: No Other/Comment: #16 2wf - PSYCHIATRIC Hx Depression: Yes Hx Substance Use: No - SURGICAL HISTORY Hx Cardiac Catheterization: Yes Hx Coronary Stent: Yes (x3) Hx Open Heart Surgery: Yes Other/Comment: port rt upper chest - ANESTHESIA Hx Anesthesia: Yes Meds Allergies/Adverse Reactions: Allergies Allergy/AdvReac Type Severity Reaction Status Date / Time No Known Allergies Allergy Verified 10/03/17 12:09 - Medications Medications: Current Medications Acetaminophen (Tylenol 325mg Tab) 650 mg PO Q4H PRN PRN Reason: Fever >100.5 F Amiodarone HCl (Cordarone) 200 mg PO DAILY [facility] Last Admin: 10/03/17 11:06 Dose: 200 mg Armodafinil (Nuvigil 150 Mg Tab) 150 mg PO DAILY [facility] Last Admin: 10/03/17 11:19 Dose: 150 mg Aspirin (Ecotrin) 81 mg PO DAILY [facility] Last Admin: 10/03/17 11:07 Dose: 81 mg Calcitriol (Rocaltrol) 0.25 mcg PO MWF [facility] Calcium Acetate (Phoslo) 667 mg PO WM [facility] Carvedilol (Coreg) 25 mg PO BID [facility] Last Admin: 10/03/17 11:07 Dose: 25 mg Darbepoetin Alfie (Aranesp) 60 mcg SC ONCE ONE Stop: 10/04/17 10:01 Ferrous Sulfate (Feosol) 324 mg PO BID [facility] Finasteride (Proscar) 5 mg PO DAILY [facility] Last Admin: 10/03/17 11:20 Dose: 5 mg Milrinone Lactate/Dextrose (Primacor 20mg/100ml D5w) 100 mls @ 9.032 mls/hr IV .Q11H5M PRN; Protocol; 0.375 MCG/KG/MIN PRN Reason: TITRATE PER MD ORDER Last Admin: 10/03/17 02:35 Dose: 9.032 mls/hr Cefepime HCl (Maxipime 1gm) 1 gm in 100 mls @ 100 mls/hr IVPB 0500 [facility] PRN Reason: Protocol Last Admin: 10/03/17 05:45 Dose: 100 mls/hr Insulin Detemir (Levemir) 30 unit SC BID [facility] Last Admin: 10/03/17 11:09 Dose: 30 unit Magnesium Oxide (Mag-Ox) 400 mg PO BID [facility] Last Admin: 10/03/17 11:06 Dose: 400 mg Multivitamins (Thera Tab) 1 tab PO DAILY [facility] Last Admin: 10/03/17 11:20 Dose: 1 tab Pantoprazole Sodium (Protonix Ec Tab) 40 mg PO DAILY [facility] Last Admin: 10/03/17 11:07 Dose: 40 mg Tamsulosin HCl (Flomax) 0.4 mg PO DAILY [facility] Physical Exam - Constitutional Appears: Chronically Ill, Other (ill-appearing) - Head Exam Head Exam: NORMAL INSPECTION - ENT Exam ENT Exam: Mucous Membranes Moist - Neck Exam Neck exam: Negative for: Meningismus - Respiratory Exam Respiratory Exam: Decreased Breath Sounds Additional comments: right anterior chest wall port in place - Cardiovascular Exam Cardiovascular Exam: +S1, +S2 - GI/Abdominal Exam GI & Abdominal Exam: Soft. absent: Tenderness Results - Vital Signs Recent Vital Signs: Last Vital Signs Temp 98.7 F 10/03/17 05:26 Pulse 77 10/03/17 11:07 Resp 18 10/03/17 10:59 BP 111/57 L 10/03/17 11:07 Pulse Ox 96 10/03/17 10:59 - Labs Result Diagrams: 10/03/17 02:00 10/03/17 02:00 Labs: Laboratory Results - last 24 hr 10/03/17 04:45 Blood Type O NEGATIVE Antibody Screen Negative Crossmatch See Detail BBK History Checked Patient has bt Assessment & Plan - Assessment and Plan (Free Text) Plan: Assessment probable acute decompensated heart failure on top of chronic CHF, R/O UTI S/P UTI with ESBL Klebsiella and Proteus history of sepsis due to left upper lobe healthcare-associated pneumonia, probably atypical history of severe sepsis due to ESBL E. coli bacteremia, unclear source history of sepsis due to right sided healthcare-associated pneumonia history of UTI with carbapenem-resistant Klebsiella history of ESBL-producing Klebsiella bacteremia, secondary to the port S/P removal S/P treatment for healthcare-associated pneumonia history of C diff associated diarrhea history of UTI with yeast history healthcare-associated pneumonia Severe cardiomyopathy with EF 10-15 % paroxysmal atrial fibrillation Coronary artery disease S/P stenting history of aortic aneurysm history of SVT S/P AICD placement S/P procedure on his prostate in 2012 S/P partial colectomy and colostomy Plan will start patient Cefepime and will give a dose of IV Vancomycin and will follow up blood cx, urine cx will monitor clinically
[2017-10-03 18:17] VITALS: BMI 32.3
[2017-10-03] MEDS ORDERED: Influenza Vaccine 60 mcg/0.5 mL SYR (4YR UP) IM ONE (18:17)
[2017-10-03] MEDS ORDERED: Pneumococcal 23-Valent Vaccine IM ONE (18:17)
--- NOTE | 2017-10-03 22:50 | CON ---
DATE: 10/03/2017 LOCATION: The patient in emergency room 600, bed 3. REASON FOR CONSULTATION: Congestive heart failure. HISTORY OF PRESENT ILLNESS: A 72-year-old male whose past history is positive for cardiomyopathy, congestive heart failure, coronary artery disease, status post PTCA of LAD at home Primacor post AICD insertion, multiple admissions for CHF, was in hospital recently, was discharged home, and now he is having shortness of breath again, so family brought to the emergency room where he was found to be in CHF. The patient denies any chest pain or palpitation. PAST MEDICAL HISTORY: Significant for ischemic cardiomyopathy, on Primacor; history of COPD; lung CA; history of recurrent pneumonia; urinary tract infection; history of colostomy; history of CVA; history of AAA, status post endovascular stent; history of paroxysmal atrial fibrillation; renal insufficiency; acute on chronic renal failure; PTCA of LAD was done by Dr. Fransico Cabral 3 years ago. PERSONAL HISTORY: No smoking, no drinking. HOME MEDICATIONS: Amiodarone 200 daily, famotidine 40 daily, Coreg 25 b.i.d., PhosLo 667 mg p.o. Tuesday and Tuesday, calcitriol 0.25 p.o. Tuesday, Tuesday, and Tuesday, aspirin 81 daily, armodafinil 150 mg tablet daily, sodium bicarbonate 650 p.o. t.i.d., Protonix 40 daily, magnesium oxide 400 b.i.d., furosemide 40 daily, insulin, Proscar 5 daily, Lasix 40 daily, ferrous sulfate 325 b.i.d., warfarin 2 mg daily, Flomax 0.4 daily, Lipitor 10 daily. ALLERGIES: DENIES ANY ALLERGIES. REVIEW OF SYSTEMS: All the systems reviewed, positive mentioned in the history, others were negative. PHYSICAL EXAMINATION: VITAL SIGNS: Blood pressure 111/57, respirations 18, pulse of 70. The patient is afebrile. HEENT: Head is normocephalic. Eyes: Pupils normal. Conjunctivae pale. NECK: JVP low. Carotids equal. THORAX: AP diameter normal. LUNGS: Few basilar rales. Few expiratory wheezing. CARDIOVASCULAR: S1 and S2. Systolic murmur. ABDOMEN: Colostomy. PERIPHERY: No clubbing, no cyanosis, no edema. LABORATORY DATA: WBC 7.4, hemoglobin 7.5, hematocrit 23.2, platelets 130. Sodium 136, potassium 2.5. BUN 105, creatinine 3.4. NT-pro B-type natriuretic peptide 18,800. Total protein 5.2, albumin 2.5. Chest x-ray: Venous congestion, perihilar infiltrates. EKG: Sinus rhythm. First-degree AV block. Occasional PVCs. Nonspecific intraventricular conduction delay. Nonspecific ST-T wave changes. DIAGNOSES: Congestive heart failure, acute on chronic left ventricular systolic dysfunction, previously ejection fraction in the range of 15%, ischemic cardiomyopathy, automatic implantable cardioverter-defibrillator insertion; coronary artery disease; history of coronary angioplasty and stent insertion; hypokalemia; acute on chronic renal failure; status post automatic implantable cardioverter-defibrillator insertion; paroxysmal atrial fibrillation; status post colostomy; recent pneumonia; urinary tract infection; endovascular stent for abdominal aortic aneurysm; lung cancer; colostomy. PLAN: The patient received 20 mg Lasix 3 times today, total of 60 mg Lasix 40 IV daily. We will also try to give digoxin to the patient. The patient is on milrinone drip, Coreg 25 b.i.d., amiodarone 200 daily, digoxin 0.125 p.o. Tuesday, Tuesday and Tuesday, aspirin 81 mg daily, Flomax 0.4 daily, insulin 30 units subq b.i.d., magnesium oxide 400 mg b.i.d., cefepime 1 g IV daily, calcium acetate 667 mg p.o. Tuesday and Tuesday, Proscar 5 mg daily, Protonix 40 daily, calcitriol 0.25 mcg p.o. Tuesday, Tuesday and Tuesday. The patient was seen by Dr. Stoddard for renal. Repeat labs requested for tomorrow morning. We will follow with you. Arabella Lopez MD
[2017-10-04] MEDS: Milrinone 20mg/100ml D5W 100 ML IV PRN ×3 (01:36→23:38)
[2017-10-04 07:17] LABS: MEAN CELL VOLUME 81.5 fl (80.0-105.0); MEAN CORPUSCULAR HEMOGLOBIN 25.5 pg (25.0-35.0); MEAN CORPUSCULAR HGB CONC 31.3 g/dl (31.0-37.0); MEAN PLATELET VOLUME 9.6 fl (7.0-11.0); RBC 3.14 10^6/uL (3.5-6.1); RED CELL DISTRIBUTION WIDTH 19.4 % (11.5-14.5); WHITE BLOOD COUNT 7.2 10^3/ul (4.5-11.0)
[2017-10-04 07:52] LABS: ALB/GLOB RATIO 0.9 (1.1-1.8); ALBUMIN 2.6 g/dL (3.0-4.8); CALCIUM 8.2 mg/dL (8.4-10.5); URIC ACID 10.2 mg/dL (3.5-8.5)
[2017-10-04] MEDS ORDERED: Potassium Chloride 20 mEq ER Tab PO ONE (08:06)
[2017-10-04] MEDS ORDERED: Darbepoetin Alfa 60 mcg/ml Inj SC ONE (10:00)
[2017-10-04] MEDS: Insulin Detemir 100 units/ml Vial (Levemir) SC SCH ×2 (10:59→18:21)
[2017-10-04] MEDS: Pantoprazole 40 mg EC Tab PO SCH ×3 (11:06→12:29)
[2017-10-04] MEDS: Magnesium Oxide 400 mg Tab UD PO SCH ×3 (11:07→12:29)
[2017-10-04] MEDS: Multivitamin Therapeutic Tab PO SCH ×3 (11:07→12:30)
--- NOTE | 2017-10-04 13:41 | CP.PCM.CON ---
History of Present Illness - History of Present Illness History of Present Illness: Heme-onc Consult Note, Epifanio Brown, PGY-2 IM This is a 72 year old male with past medical history of HCAP, severe cariomyopathy with EF 10-15%, paroxysmal atrial fibrillation, CAD s/p stents, hx of aortic aneurysm, hx of SVT, AICD, partial colectomy and colosotomy, ESBL E. coli bactermiea who represented to [facility] approx 3 days after discharge for acutely worsening shortness of breath as per family. Heme-onc was consulted for anemia. Patient seen and examined at bedside today. Non-costa rican speaking, but on prior examinations was able to participate in exam and follow pantomimed commands/ visual cues; today was lethargic and unable to follow any simple commands except deep breathing for auscultation. Does turn head to loud verbal stimuli or to practitioner when physically stimuled (i.e. sternal rub), but quickly becomes lethargic/loses track. Does not appear to be in any distress, normal breathing pattern, normal heart rate, and good distal pulses present on exam. Review of Systems - Review of Systems Systems not reviewed;Unavailable: Other (lethargic/poorly responsive + language barrier) Past Patient History - Infectious Disease Hx of Infectious Diseases: None - Tetanus Immunizations Tetanus Immunization: Unknown - Past Medical History & Family History Past Medical History?: Yes - Past Social History Smoking Status: Never Smoked - CARDIAC Hx Cardiac Disorders: Yes (CAD,ANGINA PECTORIS,ENDOCARDITIS,AAA,STENT,AVR) Hx Cardia Arrhythmia: Yes (AFIB) Hx Congestive Heart Failure: Yes Hx Hypertension: Yes Hx Pacemaker: Yes Other/Comment: milrinone drip 232 mg/290 D5W infusing from home - PULMONARY Hx Respiratory Disorders: Yes (LUNG CA-RADIATION) Hx Chronic Obstructive Pulmonary Disease (COPD): Yes Hx Pneumonia: Yes - NEUROLOGICAL Hx Neurological Disorder: Yes HX Cerebrovascular Accident: Yes Hx Dizziness: Yes - HEENT Hx HEENT Problems: Yes - RENAL Hx Chronic Kidney Disease: Yes Hx Renal Failure: Yes - ENDOCRINE/METABOLIC Hx Endocrine Disorders: Yes Hx Diabetes Mellitus Type 2: Yes - HEMATOLOGICAL/ONCOLOGICAL Hx Blood Disorders: Yes Hx Anemia: Yes - INTEGUMENTARY Hx Dermatological Problems: Yes Other/Comment: multiple moles around neck, red raised b/l groin rash , multiple skin discolorations to both arms. PORT TO RIGHT CHEST WALL 3-12-18 - MUSCULOSKELETAL/RHEUMATOLOGICAL Hx Musculoskeletal Disorders: Yes Hx Falls: Yes - GASTROINTESTINAL Hx Gastrointestinal Disorders: Yes Hx Colostomy: Yes - GENITOURINARY/GYNECOLOGICAL Hx Genitourinary Disorders: Yes Hx Prostate Problems: Yes (BPH WITH PROSTATE SX) Other/Comment: #16 2wf - PSYCHIATRIC Hx Depression: Yes Hx Substance Use: No - SURGICAL HISTORY Hx Surgeries: Yes (PICC IN/OUT, AVR,COLECTOMY,PROSTATE SX) Hx Cardiac Catheterization: Yes Hx Coronary Stent: Yes (x3) Hx Open Heart Surgery: Yes Other/Comment: port rt upper chest - ANESTHESIA Hx Anesthesia: Yes Meds Allergies/Adverse Reactions: Allergies Allergy/AdvReac Type Severity Reaction Status Date / Time No Known Allergies Allergy Verified 10/03/17 12:09 - Medications Medications: Current Medications Acetaminophen (Tylenol 325mg Tab) 650 mg PO Q4H PRN PRN Reason: Fever >100.5 F Amiodarone HCl (Cordarone) 200 mg PO DAILY [facility] Last Admin: 10/04/17 12:30 Dose: 200 mg Armodafinil (Nuvigil 150 Mg Tab) 150 mg PO DAILY [facility] Last Admin: 10/04/17 11:23 Dose: Not Given Aspirin (Ecotrin) 81 mg PO DAILY [facility] Last Admin: 10/04/17 12:30 Dose: 81 mg Calcitriol (Rocaltrol) 0.25 mcg PO F [facility] Last Admin: 10/03/17 11:09 Dose: 0.25 mcg Calcium Acetate (Phoslo) 667 mg PO [facility] Last Admin: 10/04/17 11:24 Dose: Not Given Carvedilol (Coreg) 25 mg PO BID [facility] Last Admin: 10/04/17 11:22 Dose: Not Given Digoxin (Digoxin) 0.125 mg PO [facility] [place] Ferrous Sulfate (Feosol) 324 mg PO BID [facility] Last Admin: 10/04/17 12:29 Dose: 324 mg Finasteride (Proscar) 5 mg PO DAILY [facility] Last Admin: 10/04/17 12:29 Dose: 5 mg Furosemide (Lasix) 40 mg IV DAILY [facility] Last Admin: 10/04/17 11:23 Dose: Not Given Milrinone Lactate/Dextrose (Primacor 20mg/100ml D5w) 100 mls @ 4.817 mls/hr IV .[id number] PRN; Protocol; 0.2 MCG/KG/MIN PRN Reason: TITRATE PER MD ORDER Cefepime HCl (Maxipime 1gm) 1 gm in 100 mls @ 100 mls/hr IVPB Q24H [facility] PRN Reason: Protocol Insulin Detemir (Levemir) 30 unit SC BID [facility] Last Admin: 10/04/17 10:59 Dose: Not Given Magnesium Oxide (Mag-Ox) 400 mg PO BID [facility] Last Admin: 10/04/17 12:29 Dose: 400 mg Multivitamins (Thera Tab) 1 tab PO DAILY [facility] Last Admin: 10/04/17 12:30 Dose: 1 tab Pantoprazole Sodium (Protonix Ec Tab) 40 mg PO DAILY [facility] Last Admin: 10/04/17 12:29 Dose: 40 mg Potassium Chloride (Potassium Chloride Oral Soln) 20 meq PO ONCE ONE Stop: 10/04/17 14:01 Tamsulosin HCl (Flomax) 0.4 mg PO DAILY [facility] Last Admin: 10/04/17 12:29 Dose: 0.4 mg Warfarin Sodium (Coumadin) 2 mg PO 1800 [facility] PRN Reason: Protocol Last Admin: 10/03/17 22:02 Dose: 2 mg Physical Exam - Constitutional Appears: Non-toxic, No Acute Distress, Other (lethargic/poorly responsive) - Head Exam Head Exam: ATRAUMATIC, NORMAL INSPECTION, NORMOCEPHALIC - Eye Exam Eye Exam: EOMI, Normal appearance. absent: Conjunctival injection, Scleral icterus Pupil Exam: absent: Irregular, Unequal Additional comments: mild conjunctival pallor bilaterally - ENT Exam ENT Exam: Mucous Membranes Moist - Neck Exam Neck exam: Negative for: Lymphadenopathy, Thyromegaly - Respiratory Exam Respiratory Exam: Decreased Breath Sounds (mildly decreased breath sounds in all wick, ), Rales (bibasilar rales), NORMAL BREATHING PATTERN. absent: Accessory Muscle Use, Rhonchi, Wheezes, Respiratory Distress, Stridor - Cardiovascular Exam Cardiovascular Exam: Irregular Rhythm, +S1, +S2. absent: Bradycardia, Tachycardia, REGULAR RHYTHM, RRR, +S4 - GI/Abdominal Exam GI & Abdominal Exam: Soft. absent: Diminished Bowel Sounds, Hyperactive Bowel Sounds, Hypoactive Bowel Sounds, Tenderness (unable to verbally respond, but no overt physical reaction to palpation anywhere in abdomen, no wincing or moaning) Additional comments: Bowel sounds present Right sided colostomy bag present, some stool present - Extremities Exam Extremities exam: Positive for: normal capillary refill, pedal edema (+1-2 pitting edema in bilateral LE), pedal pulses present - Neurological Exam Additional comments: lethargic but arousable briefly, not following visualized or pantomimed commands , non-costa rican speaking does orient head/eyes towards loud verbal and physical stimuli some spontaneous motions of extremities noted - Psychiatric Exam Additional comments: lethargic, non-verbal, not following most commands, difficulty to assess - Skin Skin Exam: Dry, Intact, Normal Color, Warm Results - Vital Signs Recent Vital Signs: Last Vital Signs Temp 97.2 F L 10/04/17 12:00 Pulse 105 H 10/04/17 12:30 Resp 20 10/04/17 12:00 BP 143/78 10/04/17 12:30 Pulse Ox 96 10/04/17 05:50 - Labs Result Diagrams: 10/04/17 06:45 10/04/17 06:45 Labs: Laboratory Results - last 24 hr 10/03/17 10/03/17 10/03/17 11:20 13:20 21:48 WBC RBC Hgb Hct MCV MCH MCHC RDW Plt Count MPV Sodium Potassium Chloride Carbon Dioxide Anion Gap BUN Creatinine Est GFR ( Amer) Est GFR (Non-Af Amer) POC Glucose (mg/dL) 241 H Random Glucose Uric Acid Calcium Phosphorus Magnesium Iron 12 L TIBC 249 L % Saturation 5 L Ferritin 86.1 Total Bilirubin AST ALT Alkaline Phosphatase Total Protein Albumin Globulin Albumin/Globulin Ratio Digoxin 10/04/17 10/04/17 10/04/17 06:45 06:45 06:45 WBC 7.2 RBC 3.14 L Hgb 8.0 L Hct 25.6 L MCV 81.5 MCH 25.5 MCHC 31.3 RDW 19.4 H Plt Count 119 L MPV 9.6 Sodium 138 Potassium 3.1 L Chloride 97 L Carbon Dioxide 33 Anion Gap 11 BUN 96 H Creatinine 3.2 H Est GFR ( Amer) 23 Est GFR (Non-Af Amer) 19 POC Glucose (mg/dL) Random Glucose 69 L Uric Acid 10.2 H Calcium 8.2 L Phosphorus 2.4 L Magnesium 2.4 H Iron TIBC % Saturation Ferritin Total Bilirubin 0.8 AST 27 ALT 39 Alkaline Phosphatase 102 Total Protein 5.5 L Albumin 2.6 L Globulin 2.8 Albumin/Globulin Ratio 0.9 L Digoxin < 0.4 L 10/04/17 10/04/17 07:26 11:06 WBC RBC Hgb Hct MCV MCH MCHC RDW Plt Count MPV Sodium Potassium Chloride Carbon Dioxide Anion Gap BUN Creatinine Est GFR ( Amer) Est GFR (Non-Af Amer) POC Glucose (mg/dL) 60 L 130 H Random Glucose Uric Acid Calcium Phosphorus Magnesium Iron TIBC % Saturation Ferritin Total Bilirubin AST ALT Alkaline Phosphatase Total Protein Albumin Globulin Albumin/Globulin Ratio Digoxin Assessment & Plan - Assessment and Plan (Free Text) Assessment: This is a 72 year old male with past medical history of HCAP, severe cariomyopathy with EF 10-15%, paroxysmal atrial fibrillation, CAD s/p stents, hx of aortic aneurysm, hx of SVT, AICD, partial colectomy and colosotomy, ESBL E. coli bactermiea who represented to [facility] approx 3 days after discharge for acutely worsening shortness of breath as per family. Heme-onc was consulted for anemia. Plan: Anemia Shortness of breath Elevated BNP ARF on CKD Severe cardiomyopathy with EF 10-15%, CAD s/p stenting, AICD Hx repaired aortic aneurysm Paroxysmal AFib -Anemia of 7.5 on admission, 8 today, baseline from prior charting appears to be 8-9 -Iron 12, TIBC 249, % Sat 5, Ferritin 86.1, RDW 19; suggestive of anemia of chronic disease -As per Nephro, likely anemia 2/2 CKD, was receiving Iron and Aranesp previously , will continue; received 1x dose of Aranesp today -Shortness of breath 2/2 anemia vs fluid overload; ARF and BNP [id number] on admission; not candidate for dialysis as per Nephro, possible Cardiorenal so careful balance between fluid overload and pre-renal state from diuresis -Platelets currently within acceptable range, but will need to monitor for signs of bleeding given elevated uric acid, can make platelets non-functional Patient reviewed and discussed at length with attending, Dr. Samson
--- NOTE | 2017-10-04 13:47 | PN ---
DATE: 10/04/2017 REASON FOR CONSULTATION AND FOLLOWUP: Congestive heart failure, coronary artery disease, ischemic cardiomyopathy, renal insufficiency. SUBJECTIVE: The patient denies any chest pain, shortness of breath, or any palpitations. PHYSICAL EXAMINATION: GENERAL: Lying flat in the bed, feels better than yesterday. VITAL SIGNS: Temperature afebrile, heart rate 75, blood pressure 118/71. HEENT: PERRLA. Extraocular muscles intact. NECK: Supple. No carotid bruit or thyromegaly. CHEST: Clear to auscultation. HEART: S1 and S2, regular. ABDOMEN: Soft. EXTREMITIES: Clubbing and cyanosis negative. LABORATORY DATA: Blood workup as follows: WBC 7.2, hemoglobin 8.0, hematocrit 25.6, platelet count 119. Chemistry shows sodium 138, potassium 3.1, chloride 97, carbon dioxide 33, anion gap of 11, BUN 96, creatinine 3.2 with a creatinine clearance 19 mL in an hour. Total protein 5.5, albumin 2.6, albumin-globulin ratio of 0.9. IMPRESSION: 1. Protein-calorie malnutrition, moderate, which is present since admission. 2. Hypokalemia. 3. Chronic renal insufficiency. 4. Acute kidney injury on chronic renal insufficiency. 5. Ischemic cardiomyopathy. 6. [id number] congestive heart failure secondary to systolic dysfunction. 7. Paroxysmal atrial fibrillation. 8. History of percutaneous transluminal coronary angioplasty of left anterior descending artery in the past. 9. Status post colostomy. 10. History of lung cancer. 11. History of endovascular stent for abdominal aortic aneurysm repair. RECOMMENDATIONS: Continue aggressive medical treatment. The patient is on home Primacor, continue. We will supplement potassium at 2:00 p.m. Continue amiodarone; digoxin Tuesday, Tuesday, and Tuesday. Digoxin level today 0.4. Digoxin was restarted yesterday Tuesday, Tuesday, and Tuesday, 0.125 to be continued, renally adjusted dose. Discussed with Dr. Palacios this morning and called him. The patient needs to be in long-term extended care facility and hospice care. Overall, long-term prognosis is guarded. We will discuss with as well. In the interim, continue Primacor, because the patient has a creatinine clearance 19 mL, we will decrease the dose to 0.2 mcg/kg/minute. Repeat the lab in the morning. We will put the consult for Rosaura Augustine. Arabella Mathews MD
[2017-10-04] MEDS ORDERED: Potassium Chloride 20 mEq/15 ml LIQ UD PO ONE (14:00)
[2017-10-04] MEDS: Cefepime 1gm in NS 100ml 1 GM/100 ML BAG IVPB SCH (14:02)
--- NOTE | 2017-10-04 14:41 | CP.PCM.PN ---
Subjective - Date & Time of Evaluation Date of Evaluation: 10/04/17 Time of Evaluation: 11:15 - Subjective Subjective: Patient still feels weak, no fevers, not in distress but still some shortness of breath. Objective - Vital Signs/Intake and Output Vital Signs (last 24 hours): Temp Pulse Resp BP Pulse Ox 97.0 F L 75 20 118/71 96 10/04/17 05:50 10/04/17 05:58 10/04/17 05:50 10/04/17 05:50 10/04/17 05:50 Intake and Output: 10/04/17 10/04/17 06:59 18:59 Intake Total 219 Output Total 550 Balance -331 - Medications Medications: Current Medications Acetaminophen (Tylenol 325mg Tab) 650 mg PO Q4H PRN PRN Reason: Fever >100.5 F Amiodarone HCl (Cordarone) 200 mg PO DAILY [facility] Last Admin: 10/03/17 11:06 Dose: 200 mg Armodafinil (Nuvigil 150 Mg Tab) 150 mg PO DAILY [facility] Last Admin: 10/03/17 11:19 Dose: 150 mg Aspirin (Ecotrin) 81 mg PO DAILY [facility] Last Admin: 10/03/17 11:07 Dose: 81 mg Calcitriol (Rocaltrol) 0.25 mcg PO F [facility] Last Admin: 10/03/17 11:09 Dose: 0.25 mcg Calcium Acetate (Phoslo) 667 mg PO [facility] Last Admin: 10/03/17 21:08 Dose: Not Given Carvedilol (Coreg) 25 mg PO BID [facility] Last Admin: 10/03/17 18:00 Dose: Not Given Darbepoetin Alfie (Aranesp) 60 mcg SC ONCE ONE Stop: 10/04/17 10:01 Digoxin (Digoxin) 0.125 mg PO F [facility] Ferrous Sulfate (Feosol) 324 mg PO BID [facility] Last Admin: 10/03/17 22:03 Dose: 324 mg Finasteride (Proscar) 5 mg PO DAILY [facility] Last Admin: 10/03/17 11:20 Dose: 5 mg Furosemide (Lasix) 40 mg IV DAILY [facility] Milrinone Lactate/Dextrose (Primacor 20mg/100ml D5w) 100 mls @ 9.032 mls/hr IV .Q11H5M PRN; Protocol; 0.375 MCG/KG/MIN PRN Reason: TITRATE PER MD ORDER Last Admin: 10/04/17 01:36 Dose: 0.37 mcg/kg/min, 9 mls/hr Insulin Detemir (Levemir) 30 unit SC BID [facility] Last Admin: 10/03/17 21:09 Dose: Not Given Magnesium Oxide (Mag-Ox) 400 mg PO BID [facility] Last Admin: 10/03/17 21:08 Dose: Not Given Multivitamins (Thera Tab) 1 tab PO DAILY [facility] Last Admin: 10/03/17 11:20 Dose: 1 tab Pantoprazole Sodium (Protonix Ec Tab) 40 mg PO DAILY [facility] Last Admin: 10/03/17 11:07 Dose: 40 mg Tamsulosin HCl (Flomax) 0.4 mg PO DAILY [facility] Last Admin: 10/03/17 11:09 Dose: 0.4 mg Warfarin Sodium (Coumadin) 2 mg PO 1800 [facility] PRN Reason: Protocol Last Admin: 10/03/17 22:02 Dose: 2 mg - Labs Labs: 10/04/17 06:45 10/04/17 06:45 PT 19.1 SECONDS (9.4-12.5) H 10/03/17 02:00 INR 1.66 (0.93-1.08) H 10/03/17 02:00 APTT 23.6 Seconds (25.1-36.5) L 10/03/17 02:00 - Constitutional Appears: Chronically Ill - Head Exam Head Exam: NORMAL INSPECTION - ENT Exam ENT Exam: Mucous Membranes Moist - Neck Exam Neck Exam: absent: Meningismus - Respiratory Exam Respiratory Exam: Decreased Breath Sounds - Cardiovascular Exam Cardiovascular Exam: +S1, +S2 - GI/Abdominal Exam GI & Abdominal Exam: Soft. absent: Tenderness Assessment and Plan - Assessment and Plan (Free Text) Assessment: Assessment probable acute decompensated heart failure on top of chronic CHF, R/O UTI S/P UTI with ESBL Klebsiella and Proteus history of sepsis due to left upper lobe healthcare-associated pneumonia, probably atypical history of severe sepsis due to ESBL E. coli bacteremia, unclear source history of sepsis due to right sided healthcare-associated pneumonia history of UTI with carbapenem-resistant Klebsiella history of ESBL-producing Klebsiella bacteremia, secondary to the port S/P removal S/P treatment for healthcare-associated pneumonia history of C diff associated diarrhea history of UTI with yeast history healthcare-associated pneumonia Severe cardiomyopathy with EF 10-15 % paroxysmal atrial fibrillation Coronary artery disease S/P stenting history of aortic aneurysm history of SVT S/P AICD placement S/P procedure on his prostate in 2012 S/P partial colectomy and colostomy Plan continue Cefepime (day 2); will repeat urine cx since the first urine cx looked like contamination will continue to monitor clinically
--- NOTE | 2017-10-04 17:42 | CON ---
DATE: 10/04/2017 NEUROLOGY CONSULTATION CHIEF COMPLAINT: Lethargy. HISTORY OF PRESENT ILLNESS: This is a 72-year-old man with past medical history of healthcare-associated pneumonia, severe cardiomyopathy with ejection fraction 10% to 15%, paroxysmal AFib, coronary artery disease status post stent, history of aortic aneurysm, history of SVT status post AICD placement, history of partial colectomy, and history of ESBL E. coli bacteriemia, who came into the hospital for increasing weakness, lethargy, increase work of breathing, was noted to be in decompensated diastolic heart failure. In addition, had electrolyte derangements and low potassium and elevated BUN and creatinine and BNP over 18,000 currently. He had a CAT scan of the head, which showed no acute intracranial abnormalities, moderate atrophy. He is more attentive now, following simple commands. He is more awake, moving all extremities. His electrolytes are slightly starting to improve. He is on Nuvigil for attentiveness and he is on milrinone currently. He is on Coumadin for history of AFib and history of cardiomyopathy. PAST MEDICAL HISTORY: History of healthcare-associated pneumonia, severe cardiomyopathy with EF of 10% to 15%, paroxysmal AFib, coronary artery disease status post stent, history of aortic aneurysm, history of SVT status post AICD, history of partial colectomy, history of ESBL positive bacteremia in the past. ALLERGIES: NO KNOWN DRUG ALLERGIES. SOCIAL HISTORY: No illicit drug use, smoking, or EtOH abuse. FAMILY HISTORY: Noncontributory. REVIEW OF SYSTEMS: A 14-point review of systems negative except in the HPI. MEDICATIONS: Reviewed by nurse per reconciliation sheet. PHYSICAL EXAMINATION: VITAL SIGNS: Temperature 97.2, pulse rate 105, blood pressure 143/78, respiratory rate 20. GENERAL: The patient is sitting up in bed, in no acute distress. HEENT: Head is atraumatic and normocephalic. PERRLA. Extraocular muscles are intact. NECK: Supple. No JVD. No adenopathy noted. LUNGS: Decreased breath sounds bilaterally. Has a right anterior chest wall port in place. HEART: S1 and S2. Normal rate and rhythm. No murmurs, rubs, or gallops. ABDOMEN: Soft, nontender, and nondistended. Bowel sounds are present. EXTREMITIES: Has trace pedal edema bilaterally. Peripheral pulses 2+ felt bilaterally. NEUROLOGIC: He is alert and oriented to person and place. Recall after 5 minutes is 0/3. Poor attention span. Poor thought process. Cranial nerves II through XII intact. Speech is hyperphonic, but no aphasia noted. Motor exam: Slight increased tone throughout. Moves all extremities equally. No pronator drift seen. Sensory exam: Decreased light touch and pinprick up to the calves bilaterally. Decreased vibration at the toes. DTRs are 2+ throughout, 1 at both knees and ankles. Coordination: [id number] intact. No dysmetria noted. Gait is deferred for now. LABORATORY DATA: Sodium 138, potassium 3.1, chloride of 97, carbon dioxide of 33. BUN of 96, creatinine of 3.2. Random glucose of 69. ASSESSMENT AND PLAN: This is a 72-year man with history of healthcare-associated pneumonia, severe cardiomyopathy with ejection fraction of 10% to 15%, paroxysmal atrial fibrillation, coronary artery stents, history of aortic aneurysm, history of supraventricular tachycardia and automated implantable cardioverter-defibrillator, partial colectomy and colostomy, Extended spectrum beta-lactamases Escherichia coli bacteremia, who presented approximately three days after discharge for acute worsening shortness of breath and lethargy and found to have elevated BNP of 18,000, increased BUN and creatinine from his baseline as well as he also had an episode of hypoglycemia with a blood glucose of 60 as well as 69 while he is in the hospital. I was consulted for altered mental status. His altered mental status is likely secondary to toxic metabolic encephalopathy, superimposed underlying severe cardiomyopathy causing decompensated heart failure. At this time, we recommend: 1. Electrolyte balance and monitor electrolytes per Cardiology and Nephrology. 2. Keep blood sugar between 140 to 180. 3. Keep blood pressure range in 130s to 140s systolically and diastolic 70s to 80s and avoid hypotensive episodes. 4. Continue Coumadin for paroxysmal AFib with stroke prevention. 5. Gentle hydration and PT/OT eval. Once again, thank you for the consult. Donald Parsons MD
--- NOTE | 2017-10-04 20:50 | PN ---
DATE: SUBJECTIVE: The patient is currently more communicative. He is less short of breath. He appears to be doing better. He is being maintained on IV Primacor drip. He remains in a negative fluid balance. He remains on IV diuretic therapy. MEDICATIONS: List reviewed. The patient is on Cordarone, Coreg, Coumadin, digoxin, Ecotrin, Feosol, Flomax, IV Lasix, Levemir, mag oxide, Maxipime, Nuvigil, PhosLo, Primacor drip, Proscar, Protonix, Rocaltrol, MultiVite, and Tylenol p.r.n. LABORATORY DATA AND IMAGING: CBC: White blood cell count 7.2 with a hemoglobin of 8.0, platelet count is 119,000. Coags: PT 19.1 with a PTT of 23.6. Chemistries today show a sodium of 138, potassium is low at 3.1. Chloride is 97. BUN is improved to 96. Creatinine is slightly lower at 3.2. Calcium is 8.2. Uric acid is 10.2. Glucose is 69. Phosphorus is low at 2.4. Magnesium is elevated at 2.4. PHYSICAL EXAMINATION: INTAKE AND OUTPUT: Intake 219, output 550. VITAL SIGNS: Blood pressure is 136/66, temperature 97.2, heart rate 99 with a respiratory rate of 20. HEENT: Shows him to be normocephalic, atraumatic. Conjunctivae are pale. Sclera are nonicteric. NECK: Supple. No neck vein distention. CHEST: Decreased breath sounds at the bases. Scattered rhonchi. No rales or wheezing. CARDIOVASCULAR: Shows a regular rate and rhythm with MR/TR/AI. AICD, permanent pacemaker. ABDOMEN: Soft. Bowel sounds normal. No rebound or guarding. No masses. Positive colostomy site. EXTREMITIES: Show no lower extremity pitting edema. No cyanosis or clubbing. Diminished pulses. NEUROLOGIC: Shows him to be alert and oriented. Significant improvement in last 24 hours. ASSESSMENT: 1. Chronic kidney disease stage IV/V. The patient right now is at his lower range of his baseline. In all likelihood, given his advanced cardiorenal syndrome and need for IV diuretics, his BUN and creatinine will start increasing. Again, the patient is felt not to be a dialysis candidate. He is hemodynamically unstable and will likely do very poorly on dialysis. He is being evaluated for palliative/hospice care. 2. Metabolic acidosis. CO2 level is presently 33. Sodium bicarbonate supplements have been discontinued. 3. History of possible recurrent urinary tract infection. Repeat urine culture shows multiple species. This is not a clean-catch, 50-100,000. His urine study did show 10-15 white blood cells per high-power field. He remains on empiric antibiotic therapy. He is on cefepime. 4. History of severe cardiomyopathy. History of atherosclerotic heart disease, status post percutaneous transluminal angioplasty with stent, ejection fraction is 15%. The patient has an automatic implantable cardioverter defibrillator and permanent pacemaker. He has valvular heart disease. Mitral regurgitation/tricuspid regurgitation/aortic insufficiency. 5. Past history of Escherichia coli and Klebsiella urinary tract infection. 6. History of dac-dynqdhp-etbnmlecr diabetes mellitus. The patient currently is on insulin. 7. History of hypertension. Blood pressure is acceptable in present range. 8. History of secondary hyperparathyroidism. Phosphorus level is low and binder therapy is currently on hold. The patient will continue a renal diet. 9. History of severe anemia. This is secondary to chronic kidney disease. Iron saturations are low at 5%. The patient would benefit from Venofer therapy. 10. Hypokalemia. Continue potassium supplements. 11. History of benign prostatic hypertrophy, currently stable on medication. 12. History of hyperlipidemia, currently stable on statin therapy. 13. History of bowel resection with colostomy. PLAN: 1. IV Venofer 200 mg x5 doses. 2. Supplement potassium. 3. Elevated magnesium, hold magnesium supplements. 4. Continue empiric antibiotic therapy for possible UTI. 5. Continue IV Lasix. We will try and keep the patient in negative fluid balance to decrease his edema and resolve his CHF. 6. Continue Primacor drip. 7. Agree with Dr. Mathews's plan and Dr. Palacios's plan for palliative/hospice care. Mio Stoddard MD
--- NOTE | 2017-10-04 21:31 | HP ---
DATE OF EXAM: Patient was admitted to the emergency room on 10/03/2017 where I saw the patient. He is a 72-year-old male, came with generalized weakness and short of breath and being lethargic. HISTORY OF PRESENT ILLNESS: A 72-year-old male with multiple medical problems with current admission to the hospital, who was recently discharged from the hospital with the PICC line, was put in by Dr. Isaías Infante. Apparently, he got hematoma, bleeding from the site and possible discharge coming out of it. Patient came to the hospital because he was concerned about that and also feel lethargic, mild short of breath. Patient does have a history of COPD, CHF, on IV milrinone and seems lethargic and not interactive with the family. Denied any fever, any chills, any nausea, or vomiting. He is eating as much as he can, liquid diet, but otherwise negative. PAST MEDICAL HISTORY: As I mentioned above. He does have ischemic cardiomyopathy with an EF 15% to 20%. Had a history of ICD put in, multiple cardiac stents, history of abdominal aortic aneurysm was replaced, history of chronic atrial fibrillation with paroxysmal episodes. Does have prostate enlargement. Procedures, colostomy and after partial hemicolectomy. He does have a history of ESBL in the past, urinary tract infections. He did have a history of CVA. Patient is bed-bound and wheelchair bound, COPD, and hypertension. Also, the patient has insulin-dependent diabetes. SOCIAL HISTORY: As above, he lives with his , caregiver. No smoke, no drugs. FAMILY HISTORY: Noncontributory. ALLERGIES: NO KNOWN ALLERGY. HOME MEDICATIONS: He takes multiple medications including IV milrinone, which increased recently. He is also taking calcium acetate; PhosLo 3 times a day with meals; calcitriol p.o. Tuesday, Tuesday and Tuesday; Lipitor; amiodarone 200 mg p.o. daily; Pepcid 40 mg at bedtime; Coreg 25 b.i.d.; aspirin 81 mg; Coumadin 1.5; Nuvigil 150, unclear whether he took that or not; sodium bicarb 650 t.i.d.; Protonix 40; multiple vitamins; magnesium b.i.d. 400; Levemir 30 units b.i.d.; Lasix 40 mg p.o. daily; Proscar 5 mg; iron pills twice a day 325; Coumadin was mentioned 2 mg to 1.5 mg based on PT/INR and Flomax 0.4 mg daily. PHYSICAL EXAMINATION: GENERAL: Patient is in the ER. He is kind of lethargic, poorly responsive. VITAL SIGNS: His temperature is 98.7, heart rate is 97, blood pressure is 117/70, respirations 16, saturating 95% on room air. HEAD AND NECK: Normal. No JVD. No thyromegaly. CHEST: Clear on the upper part, but there is few crackles on the bases in both lungs. CARDIAC: First sound, second sound normal. There is systolic murmur. ABDOMEN: Soft and nontender. Colostomy bag site is clean. EXTREMITIES: No edema. NEUROLOGIC: Patient is lethargic, poorly responsive, but he opened his eyes and he is very lethargic. LABORATORY DATA: He has white count 7.4, hemoglobin 7.5, hematocrit 23.2, platelet is 130. Chemistry show sodium 136, potassium 2.5, chloride 96, bicarb 33, BUN and creatinine 3.4. Patient has a blood sugar of 189 and calcium 8.3. Liver function test is normal. ProBNP is 18,800. Patient has urine, which shows large leukocytes, 10-15 white blood cells. He also had a PT/INR 1.66 and he is not on digoxin. IMPRESSION AND PLAN: 1. This is a 72-year-old male who has multiple medical problems with current admission to the hospital with recent extended-spectrum beta-lactamase urine infection was treated with meropenem and came into the hospital because patient is lethargic and he had peripherally inserted central catheter line was taken out because of discharge coming out and hematoma is coming out. We will culture the site and possible the patient has some sepsis symptoms. We will give intravenous antibiotics, vancomycin and meropenem. We will get Infectious Disease consultation, Dr. Elkins and we will follow up with their recommendations. 2. Patient does have a history of ischemic cardiomyopathy. We will continue IV milrinone. The Coumadin will hold off till we get the IV access possibly in another site. We will get a repeat blood cultures. 3. Chronic renal failure. Dr. Stoddard will be consulted to help us with this. Patient will be getting Lasix, but his hypokalemia is also severe. We will be replacing the potassium. Monitor the patient in telemetry bed. 4. Pulmonary-mercedes, the patient has multiple pulmonary problems including chronic obstructive pulmonary disease, lung cancer, recurrent pneumonia. At this time, we will continue oxygen nebulizer treatment. We will also consult with Dr. Alva for evaluations. We will resume all his medications in addition to vancomycin and meropenem. We will follow up recommendations. Discussed with the family and also Neuro consultation will be obtained. Patient had a CT of the head when he came in, which did not show any acute findings. Patient showed severe moderate to severe severe cerebral atrophy. Otherwise, no acute finding. Also, the patient had chest x-ray, which shows there is vascular congestion with bilateral bibasilar infiltrates. 5. Congestive heart failure, ischemic cardiomyopathy. Dr. Lopez, Cardiology was seeing the patient to help us with the cardiac management and Neuro consultation with Dr. Parsons and we will get also Pulmonary to see him. Patient is clinically stable at this time. We will monitor him in telemetry. We will see how he do. Dexter Palacios MD
[2017-10-05 07:16] LABS: MEAN CELL VOLUME 81.3 fl (80.0-105.0); MEAN CORPUSCULAR HEMOGLOBIN 25.4 pg (25.0-35.0); MEAN CORPUSCULAR HGB CONC 31.3 g/dl (31.0-37.0); MEAN PLATELET VOLUME 9.5 fl (7.0-11.0); RBC 3.15 10^6/uL (3.5-6.1); RED CELL DISTRIBUTION WIDTH 19.2 % (11.5-14.5); WHITE BLOOD COUNT 5.8 10^3/ul (4.5-11.0)
[2017-10-05] MEDS: Acetylcysteine 20% Inhal Soln (4ml) INH SCH ×3 (07:31→18:37)
[2017-10-05] MEDS: Levalbuterol 0.63 MG/3 ML Inhal Soln UD IH SCH ×5 (07:31→19:18)
[2017-10-05 07:37] LABS: ALB/GLOB RATIO 0.9 (1.1-1.8); ALBUMIN 2.8 g/dL (3.0-4.8); CALCIUM 8.5 mg/dL (8.4-10.5)
--- NOTE | 2017-10-05 08:48 | CON ---
DATE: 10/04/2017 PULMONARY CONSULTATION REFERRING PHYSICIAN: Dexter Palacios MD. REASON FOR CONSULTATION: Chronic lung disease, lung cancer. HISTORY OF PRESENT ILLNESS: This is a 72-year-old gentleman, well known to me with previous admission, has unresectable lung cancer, severe cardiomyopathy, milrinone dependent, renal failure, history of laparotomy with ileostomy and bedridden, comes in with generalized weakness and shortness of breath; seen by Cardiology, Neurology. Presently, lying in the bed, very sleepy. is at bedside. Occasional cough, short of breath with exertion. No hemoptysis, no hematemesis, no hematuria, no diarrhea reported. PAST MEDICAL HISTORY: Unresectable lung cancer, been on radiation therapy in the past; cardiomyopathy with LV ejection fraction about 50%, on milrinone drip; chronic lung disease, atrial fibrillation, history of laparotomy with ileostomy, history of CVA. Also, has a history of hypertension in the past. ALLERGIES: NONE KNOWN. SOCIAL HISTORY: Lives with the family. No smoking or alcohol use. FAMILY HISTORY: No significant cardiopulmonary disease reported. MEDICATIONS: He is on amiodarone 200 mg daily, Coreg 25 mg twice a day, Coumadin 2 mg; digoxin 0.125 mg Tuesday, Tuesday and Tuesday; Ecotrin 81 mg daily, ferrous sulfate 324 mg twice a day, Flomax 0.4 mg daily, iron sucrose 200 mg daily, Lasix 40 mg daily, Levemir 30 units subcu twice a day, cefepime 1 g daily, Nuvigil 150 mg daily, milrinone IV drip, Proscar 5 mg daily, Protonix 40 mg daily; calcitriol 0.25 mcg Tuesday, Tuesday and Tuesday; multivitamins daily and Tylenol p.r.n. REVIEW OF SYSTEMS: No headache. No rhinitis. Has some cough, shortness of breath. No chest pain. No nausea. No vomiting. On and off mild abdominal pain. No diarrhea. No constipation. No leg pain. No leg swelling. PHYSICAL EXAMINATION: GENERAL: Lying in the bed, in no acute distress. Sleepy, arousable. VITAL SIGNS: Temp is 98, heart rate is 86, respiratory rate is 20, blood pressure 116/74, pulse ox 98% on 2 L nasal cannula. HEENT: Moist mucous membrane. Crowded airway. Mallampati score is IV. NECK: Supple. No JVD. LUNGS: Have poor effort, but fair airflow with few rhonchi. HEART: S1, S2. ABDOMEN: Soft, nontender. Has an ileostomy, draining well. EXTREMITIES: There is no edema. NEUROLOGIC: Sleepy, arousable. Follows simple command. LABORATORY DATA: Shows hemoglobin 8.0, hematocrit 25.6, WBC 7.2, platelet is 119. INR 1.66. VBG showed pH 7.59, pCO2 of 38 and O2 is 125. Sodium 138, potassium 3.1, chloride 97, bicarbonate 33, BUN 96, creatinine 3.2, glucose 250, phosphorus 2.4, calcium 8.2, magnesium 2.4. AST 27, ALT 39, alk phos is 102. Albumin is 2.6. Urinalysis shows wbc's . Microbiology, blood culture is negative. Wound culture is pending. Urine has multiple organisms. He had a chest x-ray done in the ER, which shows vascular congestion and bilateral perihilar infiltrate. IMPRESSION AND PLAN: Pulmonary edema secondary to severe cardiomyopathy, milrinone dependent, renal failure, obstructive lung disease, history of lung cancer status post radiation therapy, anemia, history of laparotomy ileostomy and daytime hypersomnia. There may be component of sleep apnea syndrome in the past. Patient refused to use CPAP. We will order BiPAP 8/5 with 30% oxygen while sleeping. Avoid sedation. Continue daytime stimulant, bronchodilator. Continue milrinone drip, diuretics. Cardiology followup. Overall, poor prognosis. Thank you and we will follow with you. Arabella Alva MD
--- NOTE | 2017-10-05 11:24 | CP.PCM.PN ---
Subjective - Date & Time of Evaluation Date of Evaluation: 10/05/17 Time of Evaluation: 08:30 - Subjective Subjective: Heme-onc Progress Note, Epifanio Brown, PGY-2 IM This is a 72 year old male with past medical history of HCAP, severe cariomyopathy with EF 10-15%, paroxysmal atrial fibrillation, CAD s/p stents, hx of aortic aneurysm, hx of SVT, AICD, partial colectomy and colosotomy, ESBL E. coli bactermiea who represented to [facility] approx 3 days after discharge for acutely worsening shortness of breath as per family. Heme-onc was consulted for anemia. Patient seen and examined at bedside today. Remains significantly lethargic, arousable but non-verbal even with electrical manufacturing engineer, not following most commands. Oriented to initial physical or loud verbal stimuli, but loses track/drifts back into lethargy/somnolence. Objective - Vital Signs/Intake and Output Vital Signs (last 24 hours): Temp Pulse Resp BP Pulse Ox 97.6 F 75 22 121/75 100 10/05/17 06:00 10/05/17 07:36 10/05/17 06:00 10/05/17 06:00 10/05/17 06:00 Intake and Output: 10/05/17 10/05/17 06:59 18:59 Intake Total 268 Output Total 400 Balance -132 - Medications Medications: Current Medications Acetaminophen (Tylenol 325mg Tab) 650 mg PO Q4H PRN PRN Reason: Fever >100.5 F Acetylcysteine (Acetylcysteine 20%) 3 ml INH BID [facility] Last Admin: 10/05/17 07:31 Dose: 3 ml Amiodarone HCl (Cordarone) 200 mg PO DAILY [facility] Last Admin: 10/04/17 12:30 Dose: 200 mg Armodafinil (Nuvigil 150 Mg Tab) 150 mg PO DAILY [facility] Last Admin: 10/04/17 11:23 Dose: Not Given Aspirin (Ecotrin) 81 mg PO DAILY [facility] Last Admin: 10/04/17 12:30 Dose: 81 mg Calcitriol (Rocaltrol) 0.25 mcg PO MWF [facility] Last Admin: 10/03/17 11:09 Dose: 0.25 mcg Carvedilol (Coreg) 25 mg PO BID [facility] Last Admin: 10/04/17 18:20 Dose: 25 mg Digoxin (Digoxin) 0.125 mg PO F [facility] Ferrous Sulfate (Feosol) 324 mg PO BID [facility] Last Admin: 10/04/17 18:19 Dose: 324 mg Finasteride (Proscar) 5 mg PO DAILY [facility] Last Admin: 10/04/17 12:29 Dose: 5 mg Furosemide (Lasix) 40 mg IV DAILY [facility] Last Admin: 10/04/17 11:23 Dose: Not Given Milrinone Lactate/Dextrose (Primacor 20mg/100ml D5w) 100 mls @ 4.817 mls/hr IV .[id number] PRN; Protocol; 0.2 MCG/KG/MIN PRN Reason: TITRATE PER MD ORDER Last Admin: 10/04/17 23:38 Dose: 0.2 mcg/kg/min, 4.817 mls/hr Cefepime HCl (Maxipime 1gm) 1 gm in 100 mls @ 100 mls/hr IVPB Q24H [facility] PRN Reason: Protocol Last Admin: 10/04/17 14:02 Dose: 100 mls/hr Iron Sucrose 200 mg/ Sodium (Chloride) 110 mls @ 110 mls/hr IVPB QOTHERDAY [facility] Stop: 10/14/17 10:59 Insulin Detemir (Levemir) 30 unit SC BID [facility] Last Admin: 10/04/17 18:21 Dose: 30 unit Levalbuterol HCl (Xopenex) 0.63 mg IH TIDRESP [facility] Last Admin: 10/05/17 07:31 Dose: 0.63 mg Multivitamins (Thera Tab) 1 tab PO DAILY [facility] Last Admin: 10/04/17 12:30 Dose: 1 tab Pantoprazole Sodium (Protonix Ec Tab) 40 mg PO DAILY [facility] Last Admin: 10/04/17 12:29 Dose: 40 mg Tamsulosin HCl (Flomax) 0.4 mg PO DAILY [facility] Last Admin: 10/04/17 12:29 Dose: 0.4 mg Warfarin Sodium (Coumadin) 2 mg PO 1800 [facility] PRN Reason: Protocol Last Admin: 10/04/17 18:19 Dose: 2 mg - Labs Labs: 10/05/17 06:55 10/05/17 06:55 PT 19.1 SECONDS (9.4-12.5) H 10/03/17 02:00 INR 1.66 (0.93-1.08) H 10/03/17 02:00 APTT 23.6 Seconds (25.1-36.5) L 10/03/17 02:00 - Additional Findings Additional findings: - Constitutional Appears: Non-toxic, No Acute Distress, Other (lethargic/poorly responsive) - Head Exam Head Exam: ATRAUMATIC, NORMAL INSPECTION, NORMOCEPHALIC - Eye Exam Eye Exam: EOMI, Normal appearance. absent: Conjunctival injection, Scleral icterus Pupil Exam: absent: Irregular, Unequal mild conjunctival pallor bilaterally - ENT Exam ENT Exam: Mucous Membranes Moist - Neck Exam Neck exam: Negative for: Lymphadenopathy, Thyromegaly - Respiratory Exam Respiratory Exam: Decreased Breath Sounds (mildly decreased breath sounds in all wick, ), Rales (bibasilar rales), NORMAL BREATHING PATTERN. absent: Accessory Muscle Use, Rhonchi, Wheezes, Respiratory Distress, Stridor - Cardiovascular Exam Cardiovascular Exam: Irregular Rhythm, +S1, +S2. absent: Bradycardia, Tachycardia, REGULAR RHYTHM, RRR, +S4 - GI/Abdominal Exam GI & Abdominal Exam: Soft. absent: Diminished Bowel Sounds, Hyperactive Bowel Sounds, Hypoactive Bowel Sounds, Tenderness (unable to verbally respond, but no overt physical reaction to palpation anywhere in abdomen, no wincing or moaning) Bowel sounds present Colostomy bag - Extremities Exam Extremities exam: Positive for: normal capillary refill, pedal edema (+1-2 pitting edema in bilateral LE), pedal pulses present - Neurological Exam lethargic but arousable briefly, not following visualized or pantomimed commands , non-kinyarwanda speaking but not engaging with electrical manufacturing engineer does orient head/eyes towards loud verbal and physical stimuli some spontaneous motions of extremities noted - Psychiatric Exam lethargic, non-verbal, not following most commands, difficulty to assess - Skin Skin Exam: Dry, Intact, Normal Color, Warm Assessment and Plan - Assessment and Plan (Free Text) Assessment: This is a 72 year old male with past medical history of HCAP, severe cariomyopathy with EF 10-15%, paroxysmal atrial fibrillation, CAD s/p stents, hx of aortic aneurysm, hx of SVT, AICD, partial colectomy and colosotomy, ESBL E. coli bactermiea who represented to [facility] approx 3 days after discharge for acutely worsening shortness of breath as per family. Heme-onc was consulted for anemia. Plan: Anemia Shortness of breath Elevated BNP ARF on CKD Severe cardiomyopathy with EF 10-15%, CAD s/p stenting, AICD Hx repaired aortic aneurysm Paroxysmal AFib -Anemia of 7.5 on admission, 8 yesterday and today, baseline from prior charting appears to be 8-9 -Iron 12, TIBC 249, % Sat 5, Ferritin 86.1, RDW 19; suggestive of anemia of chronic disease -As per Nephro, likely anemia 2/2 CKD, was receiving Iron and Aranesp previously , will continue; received Aranesp x1 yesterday, Venofer 200mg daily x5 -Mag 2.5, holding supplement -Shortness of breath 2/2 anemia vs fluid overload; ARF and BNP [id number] on admission; not candidate for dialysis as per Nephro, possible Cardiorenal so careful balance between fluid overload and pre-renal state from diuresis -Platelets currently within acceptable range (124 today), but will need to monitor for signs of bleeding given elevated uric acid, can make platelets non- functional Patient reviewed and discussed at length with attending, Dr. Samson
[2017-10-05] MEDS: Digoxin 125 mcg (0.125 mg) Tab PO SCH (11:39)
[2017-10-05] MEDS: Pantoprazole 40 mg EC Tab PO SCH (11:40)
[2017-10-05] MEDS: Multivitamin Therapeutic Tab PO SCH (11:40)
[2017-10-05] MEDS: Insulin Detemir 100 units/ml Vial (Levemir) SC SCH ×2 (11:51→17:45)
[2017-10-05] MEDS: Cefepime 1gm in NS 100ml 1 GM/100 ML BAG IVPB SCH (14:03)
--- NOTE | 2017-10-05 14:51 | CP.PCM.PN ---
Subjective - Date & Time of Evaluation Date of Evaluation: 10/05/17 Time of Evaluation: 10:50 - Subjective Subjective: Still weak and tired, no fevers. Objective - Vital Signs/Intake and Output Vital Signs (last 24 hours): Temp Pulse Resp BP Pulse Ox 97.2 F L 84 18 127/84 100 10/05/17 12:00 10/05/17 12:00 10/05/17 12:00 10/05/17 12:00 10/05/17 06:00 Intake and Output: 10/05/17 10/05/17 06:59 18:59 Intake Total 268 Output Total 400 Balance -132 - Medications Medications: Current Medications Acetaminophen (Tylenol 325mg Tab) 650 mg PO Q4H PRN PRN Reason: Fever >100.5 F Acetylcysteine (Acetylcysteine 20%) 3 ml INH BID [facility] Last Admin: 10/05/17 12:18 Dose: 3 ml Amiodarone HCl (Cordarone) 200 mg PO DAILY [facility] Last Admin: 10/05/17 11:40 Dose: 200 mg Armodafinil (Nuvigil 150 Mg Tab) 150 mg PO DAILY [facility] Last Admin: 10/05/17 11:40 Dose: 150 mg Aspirin (Ecotrin) 81 mg PO DAILY [facility] Last Admin: 10/05/17 11:39 Dose: 81 mg Calcitriol (Rocaltrol) 0.25 mcg PO MWF [facility] Last Admin: 10/05/17 11:40 Dose: 0.25 mcg Carvedilol (Coreg) 25 mg PO BID [facility] Last Admin: 10/05/17 11:39 Dose: 25 mg Digoxin (Digoxin) 0.125 mg PO MWF [facility] Last Admin: 10/05/17 11:39 Dose: 0.125 mg Ferrous Sulfate (Feosol) 324 mg PO BID [facility] Last Admin: 10/05/17 11:39 Dose: 324 mg Finasteride (Proscar) 5 mg PO DAILY [facility] Last Admin: 10/05/17 11:40 Dose: 5 mg Furosemide (Lasix) 40 mg IV DAILY [facility] Last Admin: 10/05/17 11:34 Dose: 40 mg Milrinone Lactate/Dextrose (Primacor 20mg/100ml D5w) 100 mls @ 4.817 mls/hr IV .[id number] PRN; Protocol; 0.2 MCG/KG/MIN PRN Reason: TITRATE PER MD ORDER Last Admin: 10/04/17 23:38 Dose: 0.2 mcg/kg/min, 4.817 mls/hr Cefepime HCl (Maxipime 1gm) 1 gm in 100 mls @ 100 mls/hr IVPB Q24H [facility] PRN Reason: Protocol Last Admin: 10/05/17 14:03 Dose: 100 mls/hr Iron Sucrose 200 mg/ Sodium (Chloride) 110 mls @ 110 mls/hr IVPB QOTHERDAY [facility] Stop: 10/14/17 10:59 Insulin Detemir (Levemir) 30 unit SC BID [facility] Last Admin: 10/05/17 11:51 Dose: Not Given Levalbuterol HCl (Xopenex) 0.63 mg IH TIDRESP [facility] Last Admin: 10/05/17 13:16 Dose: 0.63 mg Multivitamins (Thera Tab) 1 tab PO DAILY [facility] Last Admin: 10/05/17 11:40 Dose: 1 tab Pantoprazole Sodium (Protonix Ec Tab) 40 mg PO DAILY [facility] Last Admin: 10/05/17 11:40 Dose: 40 mg Tamsulosin HCl (Flomax) 0.4 mg PO DAILY [facility] Last Admin: 10/05/17 11:39 Dose: 0.4 mg Warfarin Sodium (Coumadin) 2 mg PO 1800 [facility] PRN Reason: Protocol Last Admin: 10/04/17 18:19 Dose: 2 mg - Labs Labs: 10/05/17 06:55 10/05/17 06:55 PT 19.1 SECONDS (9.4-12.5) H 10/03/17 02:00 INR 1.66 (0.93-1.08) H 10/03/17 02:00 APTT 23.6 Seconds (25.1-36.5) L 10/03/17 02:00 - Constitutional Appears: Chronically Ill - Head Exam Head Exam: NORMAL INSPECTION - ENT Exam ENT Exam: Mucous Membranes Moist - Respiratory Exam Respiratory Exam: Decreased Breath Sounds - Cardiovascular Exam Cardiovascular Exam: +S1, +S2 - GI/Abdominal Exam GI & Abdominal Exam: Soft. absent: Tenderness Assessment and Plan - Assessment and Plan (Free Text) Plan: Assessment probable acute decompensated heart failure on top of chronic CHF, R/O UTI S/P UTI with ESBL Klebsiella and Proteus history of sepsis due to left upper lobe healthcare-associated pneumonia, probably atypical history of severe sepsis due to ESBL E. coli bacteremia, unclear source history of sepsis due to right sided healthcare-associated pneumonia history of UTI with carbapenem-resistant Klebsiella history of ESBL-producing Klebsiella bacteremia, secondary to the port S/P removal S/P treatment for healthcare-associated pneumonia history of C diff associated diarrhea history of UTI with yeast history healthcare-associated pneumonia Severe cardiomyopathy with EF 10-15 % paroxysmal atrial fibrillation Coronary artery disease S/P stenting history of aortic aneurysm history of SVT S/P AICD placement S/P procedure on his prostate in 2012 S/P partial colectomy and colostomy Plan continue Cefepime (day 3); follow up repeat urine cx since the first urine cx looked like contamination will continue to monitor clinically overall prognosis is poor
--- NOTE | 2017-10-05 14:54 | PN ---
DATE: 10/05/2017 PULMONARY PROGRESS NOTE REFERRING PHYSICIAN: Dexter Palacios MD. SUBJECTIVE: The patient is lying in the bed. Night was remarkable that he tolerated CPAP pretty well up to 5 o'clock in the morning. More awake. More alert. Decreased cough. No nausea. No vomiting. No diarrhea. No leg pain, leg swelling. OBJECTIVE: GENERAL: In no acute distress. VITAL SIGNS: Temp is 98, heart rate is 84, respiratory rate is 20, blood pressure 127/84, pulse ox 99% on 3 L nasal cannula. HEENT: Moist mucous membrane. Crowded airway. NECK: Supple. No JVD. LUNGS: Have a few scattered rhonchi. Overall, fair airflow. HEART: S1 and S2. ABDOMEN: Soft, nontender. Has an ileostomy. EXTREMITIES: There is no edema. NEUROLOGICAL: Awake and alert. Follows simple command. LABORATORY DATA: Shows hemoglobin 8.0, hematocrit 25.6, WBC 5.8, platelet is 124. Sodium 139, potassium 3.5, chloride 99, bicarbonate is 31, BUN 91, creatinine 3.0, glucose 165, calcium is 8.5, phosphorus 3.0, magnesium 2.5, AST 25, ALT 34, alk phos is 110, albumin is 2.8. Microbiology: Blood culture, urine culture have been negative. MEDICATIONS: He is on Mucomyst 20% inhaled twice a day; amiodarone 200 mg daily; Coreg 25 mg twice a day; Coumadin 2 mg daily; digoxin 0.125 mg Tuesday, Tuesday, Tuesday; Ecotrin 81 mg daily; ferrous sulfate 324 mg twice a day; Flomax 0.4 mg daily; iron IV; daily Lasix 40 mg IV daily; Levemir 30 units subcu twice a day; cefepime 1 g IV every 24 hours; Nuvigil 150 mg daily; IV Primacor; Proscar 5 mg daily; Protonix 40 mg daily; calcitriol 0.25 mg Tuesday, Tuesday, Tuesday; Tylenol p.r.n.; Xopenex three times a day. IMPRESSION AND PLAN: Cardiomyopathy with pulmonary edema; milrinone dependent; renal failure, which is slowly improving; chronic obstructive lung disease; has a lung cancer, being on radiation therapy; anemia; history of laparotomy with ileostomy; daytime hypersomnia, there is a component of sleep apnea syndrome. Tolerated continuous positive airway pressure 4-5 hours last night that was pretty good. He is more awake today. We will continue daytime stimulant. Continue milrinone inhaled bronchodilator. Gastric prophylaxis. Sequential compression device to lower extremity. Continue anticoagulation. Thank you and we will follow with you. Arabella Alva MD
[2017-10-05] MEDS ORDERED: Potassium Chloride 20 mEq ER Tab PO ONE (19:08)
[2017-10-05] MEDS: Vancomycin 1gm in NS 250ml 1 GM/250 ML BAG IVPB STA (19:42)
--- NOTE | 2017-10-05 19:51 | PN ---
DATE: SUBJECTIVE: Patient is currently seen entirely comfortable, sitting up in bed. He remains on Primacor drip. He also remains on IV diuretic therapy. He appears to be in negative fluid balance. His BUN and creatinine continue to improve. BUN is down to 91 with a creatinine of 3.0. MEDICATIONS: Medication list reviewed. Patient is on acetylcysteine inhalation therapy, amiodarone, Coreg, Coumadin, digoxin, Ecotrin, Feosol, Flomax, IV Venofer, Lasix IV, Levemir, Maxipime, Nuvigil, Primacor, Proscar, Protonix, Rocaltrol, multivitamins, Xopenex, and Tylenol p.r.n. OBJECTIVE: INTAKE AND OUTPUT: Intake 268, output 400. VITAL SIGNS: Blood pressure is 127/84, temperature is 97.2. Pulse was 84, respiratory rate is 18. HEENT: Showed him to be normocephalic, atraumatic. Conjunctivae remain pale. Sclerae are nonicteric. NECK: Supple. No neck vein distention. CHEST: Clear to auscultation and percussion with decreased breath sounds at the bases. No rhonchi, rales or wheezing heard today. CARDIOVASCULAR: Shows a regular rate and rhythm with MR/TR/AI. Positive AICD/permanent pacemaker. ABDOMEN: Soft. Bowel sounds normal. No rebound or guarding. No masses. Positive colostomy site. EXTREMITIES: Show no lower extremity pitting edema. No cyanosis or clubbing. Diminished pulses. NEUROLOGIC: Shows him to be more alert than in past days. ASSESSMENT: 1. Chronic kidney disease, stage IV/V. Patient's blood urea nitrogen and creatinine have improved. blood urea nitrogen is down to 91 with a creatinine of 3.0. There had been some consideration about entertaining the thought of doing dialysis. With the improvement in blood urea nitrogen and creatinine, this discussion no longer on the table and as noted many times previously, the patient would be a poor candidate for dialysis in light of his hemodynamic instability. 2. History of metabolic acidosis. CO2 level is 31. Sodium bicarbonate supplements have been discontinued. 3. Possible urinary tract infection. Repeat urines have shown multiple species suggestive that this is not a clean-catch. Patient remains on IV Maxipime. This is empiric antibiotic therapy. 4. History of severe cardiomyopathy, atherosclerotic heart disease, status post percutaneous transluminal coronary angioplasty with stent, ejection fraction is 15%. Positive automatic implantable cardioverter-defibrillator, positive permanent pacemaker. Positive valvular heart disease, Mitral regurgitation/tricuspid regurgitation/aortic insufficiency. 5. Past history of Escherichia coli and Klebsiella urinary tract infection. 6. History of lcm-[id number] diabetes mellitus, currently on insulin. 7. History of hypertension. Blood pressure control is well within the normal range, on current medical therapy. 8. History of secondary hyperparathyroidism. Calcium level 8.5, phosphorus 3.0. Patient continues a renal diet and at present, binder therapy is on hold. 9. History of severe anemia. This is in part secondary to chronic kidney disease, in part secondary to low iron levels. Iron saturations were 5%. Patient will continue on Venofer therapy and patient may be dosed with Aranesp on a weekly basis. 10. History of hypokalemia. Potassium level is 3.5. This has improved. Patient will continue to receive potassium supplements on a p.r.n. basis. 11. History of benign prostatic hypertrophy, currently stable on medical therapy. 12. History of bowel resection with colostomy. 13. History of hyperlipidemia, currently stable on diet and statin therapy. PLAN 1. Venofer and Aranesp as noted above. 2. Supplement potassium as necessary. 3. Continue to hold magnesium supplements. His magnesium level was elevated to 2.5. 4. Continue IV Lasix and continue Primacor drip. 5. Not clear to me if patient has been yet evaluated by Palliative Care/Hospice Care. Mio Stoddard MD
[2017-10-05] MEDS: Milrinone 20mg/100ml D5W 100 ML IV PRN (20:00)
--- NOTE | 2017-10-06 05:17 | PN ---
DATE: 10/04/2017 SUBJECTIVE: Patient seems better than the day before. He is more awake and less lethargic. No respiratory distress. No nausea or vomiting. He ate today with assistance and seems stable today. No chest pain. No short of breath. PHYSICAL EXAMINATION: VITAL SIGNS: On the day, the patient was having vital signs; temperature is 97.7, heart rate is 75, blood pressure 143/78, respirations 20. HEAD AND NECK: Normal. No JVD. No thyromegaly. CHEST: Clear. Diminished breath sounds bilaterally. CARDIAC: First sound, second sound normal. There is systolic murmur. ABDOMEN: Soft. Colostomy site clean. Nontender. EXTREMITIES: No edema. NEUROLOGIC: Patient is generally weak. He moves upper extremities and he is bedridden and wheelchair bound. Patient is more alert, awake and recognizes me. He knows he is in the hospital. LABORATORY DATA: Laboratory studies, sodium 138, potassium 3.1, chloride 97, bicarb 33, BUN 96, creatinine 3.2, blood sugar was 69 and . On a repeat blood sugar, it was 130 and repeat another one was 230. His uric acid 10.5, calcium 8.2, phosphorus 2.4 and magnesium 2.4. CBC noted for white count 7.2, hemoglobin 8, hematocrit 25.6 and platelets 119. IMPRESSION AND PLAN: 1. Acute change in mental status. Patient is clinically better. His CT shows no acute bleed, but there is [id number] cerebral atrophy. We will continue current management for now. Most likely, his neuropsychiatric change is due to his underlying medical illness including renal failure. 2. Chronic obstructive pulmonary disease, pneumonia and lung mass. Patient seems stable and currently is on Maxipime. Continue nebulizer treatment, we will consult Dr. Alva's team. 3. Ischemic cardiomyopathy, severe congestive heart failure. Continue Coreg 25 mg b.i.d. Continue IV milrinone. Patient does have history of chronic atrial fibrillation. We will resume Coumadin for now once the site of bleeding stopped and the patient is more comfortable. We will monitor PT/INR. We will resume Coumadin 2 mg p.o. daily and we will monitor PT/INR. 4. Chronic anemia. Patient's hemoglobin 8, seems stable. Had endoscopy before , and there was no active bleeding, we will do conservative management, at this time continue iron p.o. and continue Protonix 40 mg IV daily. 5. Chronic renal failure, stable. Follow up with his spike maker. Patient seems stable. Dialysis is high risk for him as per Dr. Stoddard. 6. Insulin dependent diabetes. Continue Levemir. We will monitor blood sugar, increase p.o. intake and we will continue followup on that. At this time, continue current management, followup clinically. Continue Nuvigil 150 mg and IV milrinone, IV meropenem. Patient received vancomycin initially one dose and we will follow up clinically. 7. Chronic atrial fibrillation. We will continue Coumadin. Continue digoxin and continue Coreg and also continue amiodarone 200 mg p.o. daily. Dexter Palacios MD
--- NOTE | 2017-10-06 05:59 | PN ---
DATE: 10/05/2017 REASON FOR CONSULTATION: Followup congestive heart failure, coronary artery disease, ischemic cardiomyopathy, renal insufficiency. SUBJECTIVE: The patient denies any chest pain, shortness of breath or any palpitations. OBJECTIVE: GENERAL: Not in any apparent distress, lying flat on the bed. VITAL SIGNS: Temperature afebrile, heart rate 84, blood pressure 127/84. HEENT: PERRLA. Extraocular muscles intact. NECK: Supple. No carotid bruit or thyromegaly. CHEST: Clear to auscultation. HEART: S1 and S2 regular. ABDOMEN: Soft. EXTREMITIES: Clubbing and cyanosis negative. LABORATORY DATA: Blood workup as follows; WBC 5.8, hemoglobin 8, hematocrit 25.6, platelet count 124. Chemistry shows sodium 139, potassium 3.5, chloride 99, carbon dioxide 31, anion gap of 13, BUN 91, creatinine 3.0, total protein 5, albumin 2.8, albumin and globulin ratio 0.9. IMPRESSION: Protein-calorie malnutrition, which was present on admission; anemia ; hypokalemia; decompensated congestive heart failure, acute on chronic secondary to systolic dysfunction and cardiomyopathy, ischemic, ejection fraction 15-20%, status post percutaneous transluminal coronary angioplasty of left anterior descending; abdominal aortic aneurysm status post endovascular stent; history of lung cancer, status post resection, on home Primacor. RECOMMENATION: Continue Primacor renally adjusted to 0.2 mg. Continue digoxin 0.125 mg Tuesday, Tuesday and Tuesday. Continue Coreg as tolerated. Continue amiodarone for paroxysmal atrial fibrillation. Continue gentle diuretics. Continue insulin. Continue broad spectrum antibiotic. Overall, the patient's condition is critical. Long-term prognosis is guarded. We will consider hospice care or long-term extended care facility. Thank you, Dr. Palacios, for providing us the opportunity in taking care of [place]. Arabella Mathews MD
[2017-10-06 07:15] LABS: HEMOGLOBIN 7.9 g/dL (14.0-18.0); MEAN CELL VOLUME 81.8 fl (80.0-105.0); MEAN CORPUSCULAR HEMOGLOBIN 25.2 pg (25.0-35.0); MEAN CORPUSCULAR HGB CONC 30.9 g/dl (31.0-37.0); MEAN PLATELET VOLUME 9.7 fl (7.0-11.0); RBC 3.13 10^6/uL (3.5-6.1); RED CELL DISTRIBUTION WIDTH 19.5 % (11.5-14.5)
[2017-10-06 07:28] LABS: INR 3.05 (0.93-1.08); PROTHROMBIN TIME 35.9 SECONDS (9.4-12.5)
[2017-10-06] MEDS: Acetylcysteine 20% Inhal Soln (4ml) INH SCH ×3 (07:54→20:29)
[2017-10-06] MEDS: Levalbuterol 0.63 MG/3 ML Inhal Soln UD IH SCH ×3 (07:54→20:29)
[2017-10-06 07:56] LABS: ALBUMIN 2.7 g/dL (3.0-4.8); CALCIUM 8.3 mg/dL (8.4-10.5)
[2017-10-06] MEDS: Pantoprazole 40 mg EC Tab PO SCH (10:34)
[2017-10-06] MEDS: Multivitamin Therapeutic Tab PO SCH (10:34)
[2017-10-06] MEDS: Insulin Detemir 100 units/ml Vial (Levemir) SC SCH ×2 (10:35→18:10)
--- NOTE | 2017-10-06 11:01 | CP.PCM.PN ---
Subjective - Date & Time of Evaluation Date of Evaluation: 10/06/17 Time of Evaluation: 09:20 - Subjective Subjective: Heme-onc Progress Note, Epifanio Brown, PGY-2 IM This is a 72 year old male with past medical history of HCAP, severe cariomyopathy with EF 10-15%, paroxysmal atrial fibrillation, CAD s/p stents, hx of aortic aneurysm, hx of SVT, AICD, partial colectomy and colosotomy, ESBL E. coli bactermiea who represented to [facility] approx 3 days after discharge for acutely worsening shortness of breath as per family. Heme-onc was consulted for anemia. Patient seen and examined at bedside today. This AM, bloodwork was notable for blood glucose of 44, but stat fingerstick was obtained and was 72 and he was arousable, so he was given some orange juice, pending recheck. Patient easily arousable today, but refusing to comply with exam. Objective - Vital Signs/Intake and Output Vital Signs (last 24 hours): Temp Pulse Resp BP Pulse Ox 97.6 F 68 20 123/69 98 10/06/17 06:00 10/06/17 10:35 10/06/17 06:00 10/06/17 10:35 10/06/17 06:00 Intake and Output: 10/06/17 10/06/17 06:59 18:59 Intake Total 457 Output Total 900 Balance -443 - Medications Medications: Current Medications Acetaminophen (Tylenol 325mg Tab) 650 mg PO Q4H PRN PRN Reason: Fever >100.5 F Acetylcysteine (Acetylcysteine 20%) 3 ml INH BID [facility] Last Admin: 10/06/17 07:54 Dose: 3 ml Amiodarone HCl (Cordarone) 200 mg PO DAILY [facility] Last Admin: 10/06/17 10:35 Dose: 200 mg Armodafinil (Nuvigil 150 Mg Tab) 150 mg PO DAILY [facility] Last Admin: 10/06/17 10:35 Dose: 150 mg Aspirin (Ecotrin) 81 mg PO DAILY [facility] Last Admin: 10/06/17 10:34 Dose: 81 mg Calcitriol (Rocaltrol) 0.25 mcg PO MWF [facility] Last Admin: 10/05/17 11:40 Dose: 0.25 mcg Carvedilol (Coreg) 25 mg PO BID [facility] Last Admin: 10/06/17 10:35 Dose: 25 mg Digoxin (Digoxin) 0.125 mg PO MWF [facility] Last Admin: 10/05/17 11:39 Dose: 0.125 mg Ferrous Sulfate (Feosol) 324 mg PO BID [facility] Last Admin: 10/06/17 10:35 Dose: 324 mg Finasteride (Proscar) 5 mg PO DAILY [facility] Last Admin: 10/06/17 10:34 Dose: 5 mg Furosemide (Lasix) 40 mg IV DAILY [facility] Last Admin: 10/06/17 10:34 Dose: 40 mg Milrinone Lactate/Dextrose (Primacor 20mg/100ml D5w) 100 mls @ 4.817 mls/hr IV .[id number] PRN; Protocol; 0.2 MCG/KG/MIN PRN Reason: TITRATE PER MD ORDER Last Admin: 10/05/17 20:00 Dose: 0.2 mcg/kg/min, 4.817 mls/hr Cefepime HCl (Maxipime 1gm) 1 gm in 100 mls @ 100 mls/hr IVPB Q24H [facility] PRN Reason: Protocol Last Admin: 10/05/17 14:03 Dose: 100 mls/hr Iron Sucrose 200 mg/ Sodium (Chloride) 110 mls @ 110 mls/hr IVPB QOTHERDAY [facility] Stop: 10/14/17 10:59 Last Admin: 10/06/17 10:34 Dose: 110 mls/hr Insulin Detemir (Levemir) 30 unit SC BID [facility] Last Admin: 10/06/17 10:35 Dose: Not Given Levalbuterol HCl (Xopenex) 0.63 mg IH TIDRESP [facility] Last Admin: 10/06/17 07:54 Dose: 0.63 mg Multivitamins (Thera Tab) 1 tab PO DAILY [facility] Last Admin: 10/06/17 10:34 Dose: 1 tab Ondansetron HCl (Zofran Inj) 4 mg IVP Q8H PRN PRN Reason: Nausea/Vomiting Pantoprazole Sodium (Protonix Ec Tab) 40 mg PO DAILY [facility] Last Admin: 10/06/17 10:34 Dose: 40 mg Tamsulosin HCl (Flomax) 0.4 mg PO DAILY [facility] Last Admin: 10/06/17 10:34 Dose: 0.4 mg Warfarin Sodium (Coumadin) 1.5 mg PO 1800 [facility] PRN Reason: Protocol - Labs Labs: 10/06/17 06:20 10/06/17 06:20 PT 35.9 SECONDS (9.4-12.5) H 10/06/17 06:20 INR 3.05 (0.93-1.08) H 10/06/17 06:20 APTT 23.6 Seconds (25.1-36.5) L 10/03/17 02:00 - Additional Findings Additional findings: - Constitutional Appears: Non-toxic, No Acute Distress, Non-compliant with exam - Head Exam Head Exam: ATRAUMATIC, NORMAL INSPECTION, NORMOCEPHALIC - Eye Exam Eye Exam: Normal appearance. absent: Conjunctival injection, Scleral icterus Pupil Exam: absent: Irregular, Unequal unable to assess EOMI, pt refusing to comply with exam - ENT Exam ENT Exam: unable to examine, pt refusing to open mouth - Neck Exam Neck exam: Negative for: Lymphadenopathy, Thyromegaly - Respiratory Exam Respiratory Exam: Decreased Breath Sounds (mildly decreased breath sounds in all wick), Rales (bibasilar rales, unchanged from prior exam), NORMAL BREATHING PATTERN. absent: Accessory Muscle Use, Rhonchi, Wheezes, Respiratory Distress, Stridor - Cardiovascular Exam Cardiovascular Exam: Irregular Rhythm, +S1, +S2. absent: Bradycardia, Tachycardia, REGULAR RHYTHM, RRR, +S4 - GI/Abdominal Exam GI & Abdominal Exam: Soft, Normal bowel sounds present, colostomy present. absent: Diminished Bowel Sounds, Hyperactive Bowel Sounds, Hypoactive Bowel Sounds, Tenderness - Extremities Exam Extremities exam: Positive for: normal capillary refill, pedal edema (+1-2 pitting edema in bilateral LE), pedal pulses present - Neurological Exam sleeping but easily arousable, awake and alert after arousal but refusing to participate in exam, swatting away examiner, some spontaneous extremity movements noticed - Skin Skin Exam: Dry, Intact, Normal Color, Warm Assessment and Plan - Assessment and Plan (Free Text) Assessment: This is a 72 year old male with past medical history of HCAP, severe cariomyopathy with EF 10-15%, paroxysmal atrial fibrillation, CAD s/p stents, hx of aortic aneurysm, hx of SVT, AICD, partial colectomy and colosotomy, ESBL E. coli bactermiea who represented to [facility] approx 3 days after discharge for acutely worsening shortness of breath as per family. Heme-onc was consulted for anemia. Plan: Anemia - stable Shortness of breath Elevated BNP ARF on CKD - unchanged Severe cardiomyopathy with EF 10-15%, CAD s/p stenting, AICD Hx repaired aortic aneurysm Paroxysmal AFib -Anemia of 7.5 on admission, baseline from prior charting appears to be 8-9, 7.9 today (was 8 yesterday) -Iron 12, TIBC 249, % Sat 5, Ferritin 86.1, RDW 19; suggestive of anemia of chronic disease -As per Nephro, likely anemia 2/2 CKD, was receiving Iron and Aranesp previously , will continue; received Aranesp x1 yesterday, Venofer 200mg QOD x5 (today day 2) -Mag 2.4, holding supplement as per Nephro -Shortness of breath 2/2 anemia vs fluid overload; ARF and BNP 36820 on admission; not candidate for dialysis as per Nephro, possible Cardiorenal so careful balance between fluid overload and pre-renal state from diuresis -Platelets currently within acceptable range (151 today), but will need to monitor for signs of bleeding given elevated uric acid, can make platelets non- functional -given extent of chronic diseases, Palliative consult placed Patient reviewed and discussed at length with attending, Dr. Samson
--- NOTE | 2017-10-06 12:32 | PN ---
DATE: SUBJECTIVE: The patient is currently seen sleeping in bed. His and daughter at the bedside. BUN continues to show improvement down to 86 with creatinine of 3.0. The patient has severe cardiorenal syndrome. He remains on a Primacor drip along with IV diuretic therapy. There are no plans for dialysis. MEDICATIONS: Medication list reviewed. The patient is currently on acetylcysteine, amiodarone, Coreg, Coumadin, digoxin, Ecotrin, Feosol, Flomax, IV iron/Venofer, IV Lasix, Levemir, Maxipime, Nuvigil, Primacor drip, Proscar, Protonix, Rocaltrol, vitamins, Xopenex and Zofran. OBJECTIVE: INTAKE/OUTPUT: Intake 997, output 1550. VITAL SIGNS: Blood pressure 123/69, temperature is 97.6, pulse of 68, respiratory rate is 20, pulse ox is 98%. HEENT: Normocephalic, atraumatic. Conjunctivae are pale. Sclerae nonicteric. NECK: Supple. No neck vein distention. CHEST: Clear to auscultation and percussion with decreased breath sounds at the bases. No rales, rhonchi or wheezing today. CARDIOVASCULAR: Shows a regular rate and rhythm with MR/TR/AI. Positive AICD/permanent pacemaker. ABDOMEN: Soft. Bowel sounds normal. No rebound or guarding. No masses. Positive colostomy site. EXTREMITIES: No lower extremity pitting edema. No cyanosis or clubbing. ASSESSMENT: 1. Chronic kidney disease stage 4/5. The patient has had continued improvement in his BUN and creatinine. BUN is down to 86 with creatinine of 3.0. The patient will remain on IV Primacor and low-dose IV diuretic therapy. As noted above in previous notes, he is a poor candidate for dialysis therapy should this be necessary because of his hemodynamic instability. 2. History of metabolic acidosis. CO2 level today is 33. Sodium bicarbonate supplements have been discontinued. 3. Positive urinary tract infection. Microbiology showed multiple species. Nevertheless, the patient remains on IV Maxipime. This is empiric antibiotic therapy for him. 4. History of severe cardiomyopathy, atherosclerotic heart disease, status post automatic implantable cardioverter-defibrillator, permanent pacemaker. Status post percutaneous transluminal coronary angioplasty with stents. Ejection fraction was only 15%. Positive valvular heart disease, mitral regurgitation/tricuspid regurgitation/aortic insufficiency. The patient will continue on IV Primacor and continue on diuretic therapy. 5. Past history of Escherichia coli and Klebsiella urinary tract infections. 6. History of oix-[id number] diabetes mellitus, currently on insulin. 7. History of hypertension. Blood pressure is well controlled and within his normal range on current medical therapy. 8. History of secondary hyperparathyroidism. Calcium level today is 8.3 with a phosphorus level of 2.9. The patient will continue a renal diet and his present binder therapy is on hold. 9. History of severe anemia. CBC today, white blood cell count 6.0, hemoglobin 7.9 with a platelet count of 151,000. Iron saturations were 5%, hence the patient is receiving Venofer. The patient will continue Aranesp therapy. Last dose of Aranesp was on 10/04/2017, 60 mcg. He will receive Aranesp on a weekly basis. 10. Mild hypokalemia. Potassium level today is excellent at 3.7. Supplements as necessary. 11. History of benign prostatic hypertrophy, currently stable on medical therapy. 12. History of partial bowel resection with colostomy, currently stable. 13. History of hyperlipidemia, currently stable on diet and statin therapy. PLAN: 1. Continue present management. 2. The patient might be evaluated by Palliative Care as he has multiple recurrent admissions for similar presentation. 3. Supplement potassium and magnesium as necessary. 4. No choice but to continue Lasix therapy and a Primacor drip. Mio Stoddard MD
[2017-10-06] MEDS: Milrinone 20mg/100ml D5W 100 ML IV PRN (14:34)
[2017-10-06] MEDS: Cefepime 1gm in NS 100ml 1 GM/100 ML BAG IVPB SCH (14:36)
[2017-10-06] MEDS ORDERED: Potassium Chloride 20 mEq/15 ml LIQ UD PO STA (15:33)
--- NOTE | 2017-10-06 21:21 | PN ---
DATE: 10/06/2017 REASON FOR CONSULTATION: Congestive heart failure, coronary artery disease, ischemic cardiomyopathy, renal insufficiency. SUBJECTIVE: The patient denies any chest pain, shortness of breath, or any palpitations. PHYSICAL EXAMINATION: GENERAL: Patient is not in any apparent distress. Feels better. VITAL SIGNS: Temperature afebrile, heart rate 65, blood pressure 130/70. HEENT: PERRLA. Extraocular muscles intact. NECK: Supple. No carotid bruit or thyromegaly. CHEST: Clear to auscultation. HEART: S1 and S2 regular. ABDOMEN: Soft. EXTREMITIES: Clubbing and cyanosis negative. LABORATORY DATA: Blood workup as follows: WBC 6, hemoglobin 7.9, hematocrit 25.6, platelet count 151. Chemistry shows sodium 140, potassium 3.7, chloride 101, carbon dioxide 33, anion gap of 12, BUN 86, creatinine 3. IMPRESSION: Chronic kidney disease; diabetes; hypertension; hyperlipidemia; coronary artery disease; cardiomyopathy, ischemic; status post percutaneous transluminal coronary angioplasty of left anterior descending; status post endovascular stent; lung cancer; status post colostomy; recurrent urinary tract infection. RECOMMENDATIONS: Long-term, consider rehab facility. Probably the hypoglycemia is secondary to sepsis. Overall, the patient's condition is critical. Long-term prognosis is guarded. Suggest long-term extended care facility. Arabella Mathews MD
--- NOTE | 2017-10-07 02:18 | PN ---
DATE: 10/06/2017 PULMONARY PROGRESS NOTE REFERRING PHYSICIAN: Dexter Palacios MD. SUBJECTIVE: The patient is lying in the bed, fully awake and alert. Follows simple command. Has some mild cough and sputum. No nausea. No vomiting. No diarrhea. No leg pain or leg swelling. OBJECTIVE: GENERAL: In no acute distress. VITAL SIGNS: Temp is 98, heart rate 69, respiratory rate is 20, blood pressure 135/69, pulse ox 98% on nasal cannula. HEENT: Moist mucous membrane. Crowded airway. NECK: Supple. No JVD. LUNGS: Have fair airflow with rhonchi. HEART: S1, S2. ABDOMEN: Soft, nontender. No organomegaly. EXTREMITIES: There is no edema. NEUROLOGIC: Awake, alert. Follows simple command. MEDICATIONS: He is on Mucomyst 20% inhaled twice a day, amiodarone 200 mg daily, Coreg 25 mg twice a day; Coumadin 1.5 mg, which is on hold; digoxin 0.125 mg Tuesday, Tuesday and Tuesday; Flomax 0.4 mg daily, iron sucrose 200 mg IV daily, Lasix 40 mg IV daily, insulin 30 units subcu twice a day, cefepime 1 g IV q.24 hours, Nuvigil 150 mg daily, Primacor IV drip, Proscar 5 mg daily, Protonix Ec 40 mg daily; calcitriol 0.25 mcg Tuesday, Tuesday and Tuesday; multivitamins daily, Tylenol p.r.n., Xopenex 0.63 mg three times a day and Zofran p.r.n. basis. LABORATORY DATA: Shows hemoglobin 7.9, hematocrit 25.6, WBC 6.0, platelet is 151. INR 3.05. Blood sugar 247. The abscess culture has Gram-positive cocci. IMPRESSION AND PLAN: Cardiomyopathy with pulmonary edema, milrinone dependent; renal failure, slowly improving though; chronic obstructive lung disease, lung cancer, history of radiation therapy, anemia, history of laparotomy with ileostomy; daytime hypersomnia, on stimulant and also sleep apnea syndrome. We will continue to encourage CPAP use. Keep head at 45 degrees. Daytime stimulant, antibiotics, bronchodilator. Continue milrinone, diuretics. Gastric prophylaxis. Sequential compression device to lower extremity. Also, on anticoagulation. Follow up labs in the morning. Thank you and we will follow with you. Arabella Alva MD [facility] # [id number]
[2017-10-07 03:06] VITALS: O2SAT 99
[2017-10-07 06:35] LABS: HEMOGLOBIN 7.6 g/dL (14.0-18.0); MEAN CELL VOLUME 82.4 fl (80.0-105.0); MEAN CORPUSCULAR HEMOGLOBIN 25.2 pg (25.0-35.0); MEAN CORPUSCULAR HGB CONC 30.6 g/dl (31.0-37.0); MEAN PLATELET VOLUME 9.6 fl (7.0-11.0); RBC 3.01 10^6/uL (3.5-6.1); RED CELL DISTRIBUTION WIDTH 19.2 % (11.5-14.5); WHITE BLOOD COUNT 4.5 10^3/ul (4.5-11.0)
[2017-10-07 06:50] LABS: PROTHROMBIN TIME 46.1 SECONDS (9.4-12.5)
[2017-10-07 06:51] LABS: INR 3.9 (0.93-1.08)
[2017-10-07 07:05] LABS: ALB/GLOB RATIO 0.9 (1.1-1.8); ALBUMIN 2.8 g/dL (3.0-4.8); CALCIUM 8.6 mg/dL (8.4-10.5)
[2017-10-07] MEDS: Levalbuterol 0.63 MG/3 ML Inhal Soln UD IH SCH ×2 (08:21→13:52)
[2017-10-07] MEDS: Multivitamin Therapeutic Tab PO SCH (09:28)
[2017-10-07] MEDS: Pantoprazole 40 mg EC Tab PO SCH (09:28)
[2017-10-07] MEDS: Digoxin 125 mcg (0.125 mg) Tab PO SCH (09:28)
[2017-10-07] MEDS: Insulin Detemir 100 units/ml Vial (Levemir) SC SCH ×2 (09:29→17:47)
[2017-10-07 09:37] VITALS: PULSE 91
--- NOTE | 2017-10-07 09:42 | CP.PCM.CON ---
History of Present Illness - History of Present Illness History of Present Illness: Palliative consult requested by Dr Amada Palacios Reason: Goals of care 72 year old Micron[place] male with history of severe cardiomyopathy,EF 15%, chronic kidney failure Stage IV, ASHD who presented with shortness of breath and lethargy. Denied fever, chills ,cough, chest pain, nausea, vomiting, headaches or diarrhea. Work up revealed CHF exacerbation, DAYTON on CKD, anemia. Chest x ray showed vascular congestion and bilateral perihilar infiltrate.CT of head non specific white matter changes. PMHx: severe cardiomyopathy, EF 15% on Primacor drip at home, AICD, ASHD, CAD s/ p stents, A Fib/ PAT/SVT, AICD, AAA, DM,s/p colectomy with colostomy, bacteremia , HCAP, CKD stage IV,BPH and anemia Social History:Never smoker, no alcohol or drug use. lives with spouse. Speaks Thai only. Family History: Non contributory Advance Care Planning: The patient does not have an Advanced Directive. Review of Systems: As per HPI, otherwise negative review Past Patient History - Infectious Disease Hx of Infectious Diseases: None - Tetanus Immunizations Tetanus Immunization: Unknown - Past Medical History & Family History Past Medical History?: Yes - Past Social History Smoking Status: Never Smoked - CARDIAC Hx Cardiac Disorders: Yes (CAD,ANGINA PECTORIS,ENDOCARDITIS,AAA,STENT,AVR) Hx Cardia Arrhythmia: Yes (AFIB) Hx Congestive Heart Failure: Yes Hx Hypertension: Yes Hx Pacemaker: Yes Other/Comment: milrinone drip 232 mg/290 D5W infusing from home - PULMONARY Hx Respiratory Disorders: Yes (LUNG CA-RADIATION) Hx Chronic Obstructive Pulmonary Disease (COPD): Yes Hx Pneumonia: Yes - NEUROLOGICAL Hx Neurological Disorder: Yes HX Cerebrovascular Accident: Yes Hx Dizziness: Yes - HEENT Hx HEENT Problems: Yes - RENAL Hx Chronic Kidney Disease: Yes Hx Renal Failure: Yes - ENDOCRINE/METABOLIC Hx Endocrine Disorders: Yes Hx Diabetes Mellitus Type 2: Yes - HEMATOLOGICAL/ONCOLOGICAL Hx Blood Disorders: Yes Hx Anemia: Yes - INTEGUMENTARY Hx Dermatological Problems: Yes Other/Comment: multiple moles around neck, red raised b/l groin rash , multiple skin discolorations to both arms. PORT TO RIGHT CHEST WALL 09-26-17 - MUSCULOSKELETAL/RHEUMATOLOGICAL Hx Musculoskeletal Disorders: Yes Hx Falls: Yes - GASTROINTESTINAL Hx Gastrointestinal Disorders: Yes Hx Colostomy: Yes - GENITOURINARY/GYNECOLOGICAL Hx Genitourinary Disorders: Yes Hx Prostate Problems: Yes (BPH WITH PROSTATE SX) Other/Comment: #16 2wf - PSYCHIATRIC Hx Depression: Yes Hx Substance Use: No - SURGICAL HISTORY Hx Surgeries: Yes (PICC IN/OUT, AVR,COLECTOMY,PROSTATE SX) Hx Cardiac Catheterization: Yes Hx Coronary Stent: Yes (x3) Hx Open Heart Surgery: Yes Other/Comment: port rt upper chest - ANESTHESIA Hx Anesthesia: Yes Meds Allergies/Adverse Reactions: Allergies Allergy/AdvReac Type Severity Reaction Status Date / Time No Known Allergies Allergy Verified 10/03/17 12:09 - Medications Medications: Current Medications Acetaminophen (Tylenol 325mg Tab) 650 mg PO Q4H PRN PRN Reason: Fever >100.5 F Acetylcysteine (Acetylcysteine 20%) 3 ml INH BID [facility] Last Admin: 10/06/17 20:29 Dose: 3 ml Amiodarone HCl (Cordarone) 200 mg PO DAILY [facility] Last Admin: 10/06/17 10:35 Dose: 200 mg Armodafinil (Nuvigil 150 Mg Tab) 150 mg PO DAILY [facility] Last Admin: 10/06/17 10:35 Dose: 150 mg Calcitriol (Rocaltrol) 0.25 mcg PO MWF [facility] Last Admin: 10/05/17 11:40 Dose: 0.25 mcg Carvedilol (Coreg) 25 mg PO BID [facility] Last Admin: 10/06/17 18:09 Dose: 25 mg Digoxin (Digoxin) 0.125 mg PO F [facility] Last Admin: 10/05/17 11:39 Dose: 0.125 mg Finasteride (Proscar) 5 mg PO DAILY [facility] Last Admin: 10/06/17 10:34 Dose: 5 mg Furosemide (Lasix) 40 mg IV DAILY [facility] Last Admin: 10/06/17 10:34 Dose: 40 mg Milrinone Lactate/Dextrose (Primacor 20mg/100ml D5w) 100 mls @ 4.817 mls/hr IV .[id number] PRN; Protocol; 0.2 MCG/KG/MIN PRN Reason: TITRATE PER MD ORDER Last Admin: 10/06/17 14:34 Dose: 0.2 mcg/kg/min, 4.817 mls/hr Cefepime HCl (Maxipime 1gm) 1 gm in 100 mls @ 100 mls/hr IVPB Q24H [facility] PRN Reason: Protocol Last Admin: 10/06/17 14:36 Dose: 100 mls/hr Iron Sucrose 200 mg/ Sodium (Chloride) 110 mls @ 110 mls/hr IVPB QOTHERDAY [facility] Stop: 10/14/17 10:59 Last Admin: 10/06/17 10:34 Dose: 110 mls/hr Insulin Detemir (Levemir) 30 unit SC BID [facility] Last Admin: 10/06/17 18:10 Dose: Not Given Levalbuterol HCl (Xopenex) 0.63 mg IH TIDRESP [facility] Last Admin: 10/07/17 08:21 Dose: 0.63 mg Multivitamins (Thera Tab) 1 tab PO DAILY [facility] Last Admin: 10/06/17 10:34 Dose: 1 tab Ondansetron HCl (Zofran Inj) 4 mg IVP Q8H PRN PRN Reason: Nausea/Vomiting Pantoprazole Sodium (Protonix Ec Tab) 40 mg PO DAILY [facility] Last Admin: 10/06/17 10:34 Dose: 40 mg Tamsulosin HCl (Flomax) 0.4 mg PO DAILY [facility] Last Admin: 10/06/17 10:34 Dose: 0.4 mg Warfarin Sodium (Coumadin) 1.5 mg PO 1800 [facility] PRN Reason: Protocol Last Admin: 10/06/17 18:09 Dose: Not Given Results - Vital Signs Recent Vital Signs: Last Vital Signs Temp 97.8 F 10/07/17 07:00 Pulse 86 10/07/17 07:00 Resp 20 10/07/17 07:00 BP 154/83 H 10/07/17 07:00 Pulse Ox 99 10/07/17 00:01 - Labs Result Diagrams: 10/07/17 06:20 10/07/17 06:20 Labs: Laboratory Results - last 24 hr 10/06/17 10/06/17 10/06/17 07:22 08:24 10:11 WBC RBC Hgb Hct MCV MCH MCHC RDW Plt Count MPV PT INR Sodium Potassium Chloride Carbon Dioxide Anion Gap BUN Creatinine Est GFR ( Amer) Est GFR (Non-Af Amer) POC Glucose (mg/dL) 42 L 70 121 H Random Glucose Calcium Phosphorus Magnesium Total Bilirubin AST ALT Alkaline Phosphatase Total Protein Albumin Globulin Albumin/Globulin Ratio 10/06/17 10/06/17 10/06/17 11:14 16:15 21:58 WBC RBC Hgb Hct MCV MCH MCHC RDW Plt Count MPV PT INR Sodium Potassium Chloride Carbon Dioxide Anion Gap BUN Creatinine Est GFR ( Amer) Est GFR (Non-Af Amer) POC Glucose (mg/dL) 192 H 175 H 247 H Random Glucose Calcium Phosphorus Magnesium Total Bilirubin AST ALT Alkaline Phosphatase Total Protein Albumin Globulin Albumin/Globulin Ratio 10/07/17 10/07/17 10/07/17 06:20 06:20 06:20 WBC 4.5 D RBC 3.01 L Hgb 7.6 L Hct 24.8 L MCV 82.4 MCH 25.2 MCHC 30.6 L RDW 19.2 H Plt Count 160 MPV 9.6 PT 46.1 H INR 3.90 H* Sodium 139 Potassium 3.8 Chloride 101 Carbon Dioxide 32 Anion Gap 10 BUN 82 H Creatinine 2.8 H Est GFR ( Amer) 27 Est GFR (Non-Af Amer) 22 POC Glucose (mg/dL) Random Glucose 205 H Calcium 8.6 Phosphorus 3.3 Magnesium 2.3 H Total Bilirubin 0.8 AST 39 ALT 32 Alkaline Phosphatase 116 Total Protein 5.8 Albumin 2.8 L Globulin 3.0 Albumin/Globulin Ratio 0.9 L Assessment & Plan - Assessment and Plan (Free Text) Assessment: 72 year old male with history of sever cardiomyopathy, CKD,CHF and other multiple medical comorbidities(see PMH) who was admitted with CHF exacerbation and DAYTON on CKD. Family known to me from previous admissions. Family of Coptic Confucianism belief and have stated they do not agree with DNR/DNI status. Patients and daughter at bedside. Amish advisor/family friend at bedsides who speaks fluent Thai and acted as sign language interpreter. Jakub Olmos APN and myself spoke with family. Family updated of patients medical condition and prognosis. Explained that due to patient's multiple medical problems he will always experience shortness of breath. Impressed that his condition is not curable and that his health will continue to decline. Explained that hospitalizations would not change the course of his illness. Offered option for penitentiary placement so that patient would receive 24 care. Also offered option for home hospice services. Hospice services with focus on comfort and symptom management explained in detail. Family does not want hospice.Psychosocial support provided. Family has decided to take patient home and to continue with vising nurse and [employer] services Time spent with family in goals of care discussion, 30 minutes Plan: Anemia secondary to CKD; continue Iron supplement and Aaranesp. Follow hematology recommendations. Shortness of breath; Continue Milrinone IV, Lasix,Digoxin. Follow cardiology and renal recommendations. Palliative support in establishing goal of care
--- NOTE | 2017-10-07 10:38 | CP.PCM.PN ---
Subjective - Date & Time of Evaluation Date of Evaluation: 10/07/17 Time of Evaluation: 09:30 - Subjective Subjective: Heme-onc Progress Note, Epifanio Brown, PGY-2 IM This is a 72 year old male with past medical history of HCAP, severe cariomyopathy with EF 10-15%, paroxysmal atrial fibrillation, CAD s/p stents, hx of aortic aneurysm, hx of SVT, AICD, partial colectomy and colosotomy, ESBL E. coli bactermiea who represented to [facility] approx 3 days after discharge for acutely worsening shortness of breath as per family. Heme-onc was consulted for anemia. Patient seen and examined at bedside today. Blood glucose improved on AM bloodwork today (was 44 yesterday AM, 200's today), awake and alert with daughter at bedside. Remains mostly non-verbal, but following commands and participating in exam today. No oral bleeding appreciated, lungs sound unchanged on auscultation. Does not appear in overt distress but is ill- appearing. Objective - Vital Signs/Intake and Output Vital Signs (last 24 hours): Temp Pulse Resp BP Pulse Ox 97.8 F 91 H 20 154/91 H 99 10/07/17 07:00 10/07/17 09:28 10/07/17 07:00 10/07/17 09:28 10/07/17 00:01 - Medications Medications: Current Medications Acetaminophen (Tylenol 325mg Tab) 650 mg PO Q4H PRN PRN Reason: Fever >100.5 F Acetylcysteine (Acetylcysteine 20%) 3 ml INH BID [facility] Last Admin: 10/06/17 20:29 Dose: 3 ml Amiodarone HCl (Cordarone) 200 mg PO DAILY [facility] Last Admin: 10/07/17 09:28 Dose: 200 mg Armodafinil (Nuvigil 150 Mg Tab) 150 mg PO DAILY [facility] Last Admin: 10/07/17 09:28 Dose: 150 mg Calcitriol (Rocaltrol) 0.25 mcg PO F [facility] Last Admin: 10/07/17 09:28 Dose: 0.25 mcg Carvedilol (Coreg) 25 mg PO BID [facility] Last Admin: 10/07/17 09:28 Dose: 25 mg Digoxin (Digoxin) 0.125 mg PO F [facility] Last Admin: 10/07/17 09:28 Dose: 0.125 mg Finasteride (Proscar) 5 mg PO DAILY [facility] Last Admin: 10/07/17 09:28 Dose: 5 mg Furosemide (Lasix) 40 mg IV DAILY [facility] Last Admin: 10/07/17 09:28 Dose: 40 mg Milrinone Lactate/Dextrose (Primacor 20mg/100ml D5w) 100 mls @ 4.817 mls/hr IV .[id number] PRN; Protocol; 0.2 MCG/KG/MIN PRN Reason: TITRATE PER MD ORDER Last Admin: 10/06/17 14:34 Dose: 0.2 mcg/kg/min, 4.817 mls/hr Cefepime HCl (Maxipime 1gm) 1 gm in 100 mls @ 100 mls/hr IVPB Q24H [facility] PRN Reason: Protocol Last Admin: 10/06/17 14:36 Dose: 100 mls/hr Iron Sucrose 200 mg/ Sodium (Chloride) 110 mls @ 110 mls/hr IVPB QOTHERDAY [facility] Stop: 10/14/17 10:59 Last Admin: 10/06/17 10:34 Dose: 110 mls/hr Insulin Detemir (Levemir) 30 unit SC BID [facility] Last Admin: 10/07/17 09:29 Dose: 30 unit Levalbuterol HCl (Xopenex) 0.63 mg IH TIDRESP [facility] Last Admin: 10/07/17 08:21 Dose: 0.63 mg Linezolid (Zyvox) 600 mg PO BID [facility] PRN Reason: Protocol Multivitamins (Thera Tab) 1 tab PO DAILY [facility] Last Admin: 10/07/17 09:28 Dose: 1 tab Ondansetron HCl (Zofran Inj) 4 mg IVP Q8H PRN PRN Reason: Nausea/Vomiting Pantoprazole Sodium (Protonix Ec Tab) 40 mg PO DAILY [facility] Last Admin: 10/07/17 09:28 Dose: 40 mg Tamsulosin HCl (Flomax) 0.4 mg PO DAILY [facility] Last Admin: 10/07/17 09:28 Dose: 0.4 mg Warfarin Sodium (Coumadin) 1.5 mg PO 1800 [facility] PRN Reason: Protocol Last Admin: 10/06/17 18:09 Dose: Not Given - Labs Labs: 10/07/17 06:20 10/07/17 06:20 PT 46.1 SECONDS (9.4-12.5) H 10/07/17 06:20 INR 3.90 (0.93-1.08) H* 10/07/17 06:20 APTT 23.6 Seconds (25.1-36.5) L 10/03/17 02:00 - Additional Findings Additional findings: - Constitutional Appears: Non-toxic, No Acute Distress, Ill-appearing - Head Exam Head Exam: ATRAUMATIC, NORMAL INSPECTION, NORMOCEPHALIC - Eye Exam Eye Exam: Normal appearance, EOMI. absent: Conjunctival injection, Scleral icterus Pupil Exam: absent: Irregular, Unequal - ENT Exam ENT Exam: poor dentition, but no gross bleeding or oozing appreciated - Neck Exam Neck exam: Negative for: Lymphadenopathy, Thyromegaly - Respiratory Exam Respiratory Exam: Decreased Breath Sounds (mildly decreased breath sounds in all wick), Rales (bibasilar rales, unchanged from prior exam), NORMAL BREATHING PATTERN. absent: Accessory Muscle Use, Rhonchi, Wheezes, Respiratory Distress, Stridor - Cardiovascular Exam Cardiovascular Exam: Irregular Rhythm, +S1, +S2. absent: Bradycardia, Tachycardia, REGULAR RHYTHM, RRR, +S4 - GI/Abdominal Exam GI & Abdominal Exam: Soft, Normal bowel sounds present, colostomy present. absent: Diminished Bowel Sounds, Hyperactive Bowel Sounds, Hypoactive Bowel Sounds, Tenderness - Extremities Exam Extremities exam: Positive for: normal capillary refill, pedal edema (+1-2 pitting edema in bilateral LE), pedal pulses present - Neurological Exam Awake and alert, moving extremities spontaneously, following simple commands relayed by daughter at bedside, still mostly non-verbal - Psych Exam Not grossly agitated or anxious, but remains mostly non-verbal, is participating in exam today - Skin Skin Exam: Dry, Intact, Normal Color, Warm Assessment and Plan - Assessment and Plan (Free Text) Assessment: This is a 72 year old male with past medical history of HCAP, severe cariomyopathy with EF 10-15%, paroxysmal atrial fibrillation, CAD s/p stents, hx of aortic aneurysm, hx of SVT, AICD, partial colectomy and colosotomy, ESBL E. coli bactermiea who represented to [facility] approx 3 days after discharge for acutely worsening shortness of breath as per family. Heme-onc was consulted for anemia. Plan: Anemia - worsened Shortness of breath Elevated BNP ARF on CKD - unchanged Severe cardiomyopathy with EF 10-15%, CAD s/p stenting, AICD Hx repaired aortic aneurysm Paroxysmal AFib -Anemia of 7.5 on admission, baseline from prior charting appears to be 8-9, 7.6 today (was 7.9) -Iron 12, TIBC 249, % Sat 5, Ferritin 86.1, RDW 19; suggestive of anemia of chronic disease -As per Nephro, likely anemia 2/2 CKD, was receiving Iron and Aranesp previously , will continue; received Aranesp x1 yesterday, Venofer 200mg QOD x5 (yesterday #2/) -Mag 2.3, holding supplement as per Nephro -Shortness of breath 2/2 anemia vs fluid overload; ARF and BNP [id number] on admission; not candidate for dialysis as per Nephro, possible Cardiorenal so careful balance between fluid overload and pre-renal state from diuresis -continue Primacor and low-dose IV diuretics as per Cardio and Nephro given cardiomyopathy with EF 10-15% -given extent of chronic diseases, Palliative consult placed -as per Heme attending and PMD, avoiding transfusions as patient due to possible cardio-renal state, risk for fluid overload Patient reviewed and discussed at length with attending, Dr. Samson
[2017-10-07] MEDS: Milrinone 20mg/100ml D5W 100 ML IV PRN (10:51)
--- NOTE | 2017-10-07 11:56 | RAD ---
HISTORY: Compare to see improvement of CHF. COMPARISON: 10/03/2017. FINDINGS: LUNGS: Persistent, approximately stable infiltrates likely mild pulmonary edema. PLEURA: No significant pleural effusion identified, no pneumothorax apparent. CARDIOVASCULAR: Cardiomegaly/mild CHF. Position/ configuration of pacemaker device: Satisfactory. Venous access catheter in stable, satisfactory position. OSSEOUS STRUCTURES: No significant abnormalities. VISUALIZED UPPER ABDOMEN: Normal. OTHER FINDINGS: None. IMPRESSION: Cardiomegaly/congestive heart failure with pulmonary edema. No significant changes compared to the most recent prior examination. .
[2017-10-07 13:01] VITALS: BP 130/77; RESP 17; TEMP 98.1
--- NOTE | 2017-10-07 13:14 | PN ---
DATE: 10/06/2017 SUBJECTIVE: The patient seems better, more alert, awake, responding, moving his upper extremity well, sitting and lying in bed because of general weakness, on IV milrinone and otherwise stable. The patient is also getting IV meropenem. on the bedside, discussed with her about the patient's care and supportive care for that patient. He is getting IV iron infusion and he is afebrile; no nausea, no vomiting and eating. PHYSICAL EXAMINATION VITAL SIGNS: His temperature is 98, heart rate 65, blood pressure 130/70, respirations 18. HEAD AND NECK: Normal. No JVD. No thyromegaly. CHEST: Clear. CARDIAC: First sound and second sound normal. There is systolic murmur. ABDOMEN: Soft with colostomy bag and skin is normal around it. EXTREMITIES: No edema. NEUROLOGIC: The patient has more weakness in lower extremities than upper and the patient is more awake, alert and oriented to place, time and person. LABORATORY DATA: Shows white count 6, hemoglobin 7.9, hematocrit 25.6, platelets 151. Chemistry shows blood sugar in the 120s. Sodium 142, potassium 3.7, chloride 101, bicarb 33, BUN 86, creatinine 3. The patient had blood sugar in the 44 because of not eating, after that, it went up to 192. Calcium is 8.3, phosphorous 2.9, magnesium 2.4. Liver function test is normal. IMPRESSION AND PLAN: 1. Acute change in mental status. The patient has moderate to severe cerebral atrophy, toxic metabolic due to underlying medical conditions with multiple medications, stable. He is cleared and we will continue Nuvigil 150 mg p.o. daily plus we will continue treating underlying medical problem including infection. We will continue meropenem. The patient has also negative blood cultures x2. 2. Chronic congestive heart failure, systolic and diastolic combined. Continue IV milrinone. The patient seems stable in that. 3. Chronic obstructive pulmonary disease, is stable. Continue inhaled bronchodilators and Mucomyst. Chest PT seems doing well. 4. Ischemic cardiomyopathy. Continue Coreg, digoxin and IV milrinone. 5. Chronic atrial fibrillation. The patient is getting amiodarone 200 mg p.o. daily plus Coreg 25 mg p.o. b.i.d. The patient is also maintained on Lasix 40 mg at home and here on IV daily. 6. Insulin-dependent diabetes. Continue Levemir 30 units b.i.d. The patient is encouraged to increase p.o. intake. He is getting Glucerna 4 times a day, seems doing well with that. 7. Gastrointestinal bleed, probably from platelet dysfunction due to renal failure. The patient had upper endoscopy by Dr. Ordonez. Hematology consult with Dr. Samson. I spoke with him about IV iron infusions. The patient is critically ill with multiple organ failure. Supportive care is the best for this patient. 8. Prostate enlargement. Continue Proscar and Flomax. Continue gastrointestinal and deep vein thrombosis prophylaxis. We will monitor his PT/INR. He is on hold for Coumadin for now and we will repeat PT/INR tomorrow. Continue IV cefepime. Continue Zyvox. I will discuss with ID consults, family waiting, probably the patient is a candidate for long-term due to his multiple recurrent admission and multiple medical problems that it is too much for the to take care of it. I spoke with the about it and I will talk to her son about that condition. The patient is so sick to be handled at home, so long-term placement will be better option for him. We will discuss with the son about it. Dexter Palacios MD
[2017-10-07] MEDS: Acetylcysteine 20% Inhal Soln (4ml) INH SCH (13:52)
[2017-10-07] MEDS: Cefepime 1gm in NS 100ml 1 GM/100 ML BAG IVPB SCH (14:14)
--- NOTE | 2017-10-07 14:54 | CP.PCM.PN ---
Subjective - Date & Time of Evaluation Date of Evaluation: 10/07/17 Time of Evaluation: 11:20 - Subjective Subjective: A little more awake today, no fevers, not in distress but still feels weak and tired. Objective - Vital Signs/Intake and Output Vital Signs (last 24 hours): Temp Pulse Resp BP Pulse Ox 97.8 F 91 H 20 154/91 H 99 10/07/17 07:00 10/07/17 09:28 10/07/17 07:00 10/07/17 09:28 10/07/17 00:01 - Medications Medications: Current Medications Acetaminophen (Tylenol 325mg Tab) 650 mg PO Q4H PRN PRN Reason: Fever >100.5 F Acetylcysteine (Acetylcysteine 20%) 3 ml INH BID [facility] Last Admin: 10/06/17 20:29 Dose: 3 ml Amiodarone HCl (Cordarone) 200 mg PO DAILY [facility] Last Admin: 10/07/17 09:28 Dose: 200 mg Armodafinil (Nuvigil 150 Mg Tab) 150 mg PO DAILY [facility] Last Admin: 10/07/17 09:28 Dose: 150 mg Calcitriol (Rocaltrol) 0.25 mcg PO F [facility] Last Admin: 10/07/17 09:28 Dose: 0.25 mcg Carvedilol (Coreg) 25 mg PO BID [facility] Last Admin: 10/07/17 09:28 Dose: 25 mg Digoxin (Digoxin) 0.125 mg PO MWF [facility] Last Admin: 10/07/17 09:28 Dose: 0.125 mg Finasteride (Proscar) 5 mg PO DAILY [facility] Last Admin: 10/07/17 09:28 Dose: 5 mg Furosemide (Lasix) 40 mg IV DAILY [facility] Last Admin: 10/07/17 09:28 Dose: 40 mg Milrinone Lactate/Dextrose (Primacor 20mg/100ml D5w) 100 mls @ 4.817 mls/hr IV .[id number] PRN; Protocol; 0.2 MCG/KG/MIN PRN Reason: TITRATE PER MD ORDER Last Admin: 10/06/17 14:34 Dose: 0.2 mcg/kg/min, 4.817 mls/hr Cefepime HCl (Maxipime 1gm) 1 gm in 100 mls @ 100 mls/hr IVPB Q24H [facility] PRN Reason: Protocol Last Admin: 10/06/17 14:36 Dose: 100 mls/hr Iron Sucrose 200 mg/ Sodium (Chloride) 110 mls @ 110 mls/hr IVPB QOTHERDAY [facility] Stop: 10/14/17 10:59 Last Admin: 10/06/17 10:34 Dose: 110 mls/hr Insulin Detemir (Levemir) 30 unit SC BID [facility] Last Admin: 10/07/17 09:29 Dose: 30 unit Levalbuterol HCl (Xopenex) 0.63 mg IH TIDRESP [facility] Last Admin: 10/07/17 08:21 Dose: 0.63 mg Multivitamins (Thera Tab) 1 tab PO DAILY [facility] Last Admin: 10/07/17 09:28 Dose: 1 tab Ondansetron HCl (Zofran Inj) 4 mg IVP Q8H PRN PRN Reason: Nausea/Vomiting Pantoprazole Sodium (Protonix Ec Tab) 40 mg PO DAILY [facility] Last Admin: 10/07/17 09:28 Dose: 40 mg Tamsulosin HCl (Flomax) 0.4 mg PO DAILY [facility] Last Admin: 10/07/17 09:28 Dose: 0.4 mg Warfarin Sodium (Coumadin) 1.5 mg PO 1800 [facility] PRN Reason: Protocol Last Admin: 10/06/17 18:09 Dose: Not Given - Labs Labs: 10/07/17 06:20 10/07/17 06:20 PT 46.1 SECONDS (9.4-12.5) H 10/07/17 06:20 INR 3.90 (0.93-1.08) H* 10/07/17 06:20 APTT 23.6 Seconds (25.1-36.5) L 10/03/17 02:00 - Constitutional Appears: Chronically Ill - Head Exam Head Exam: NORMAL INSPECTION - Neck Exam Neck Exam: absent: Meningismus - Respiratory Exam Respiratory Exam: Decreased Breath Sounds Additional comments: right anterior chest wall port site clean and intact - Cardiovascular Exam Cardiovascular Exam: +S1, +S2 - GI/Abdominal Exam GI & Abdominal Exam: Soft. absent: Tenderness Assessment and Plan - Assessment and Plan (Free Text) Plan: Assessment probable acute decompensated heart failure on top of chronic CHF, no evidence of UTI S/P UTI with ESBL Klebsiella and Proteus history of sepsis due to left upper lobe healthcare-associated pneumonia, probably atypical history of severe sepsis due to ESBL E. coli bacteremia, unclear source history of sepsis due to right sided healthcare-associated pneumonia history of UTI with carbapenem-resistant Klebsiella history of ESBL-producing Klebsiella bacteremia, secondary to the port S/P removal S/P treatment for healthcare-associated pneumonia history of C diff associated diarrhea history of UTI with yeast history healthcare-associated pneumonia Severe cardiomyopathy with EF 10-15 % paroxysmal atrial fibrillation Coronary artery disease S/P stenting history of aortic aneurysm history of SVT S/P AICD placement S/P procedure on his prostate in 2012 S/P partial colectomy and colostomy Plan will continue to monitor the patient off antibiotics since he is at risk for nosocomial infections discussed with Dr. Palacios overall prognosis is poor
[2017-10-07 17:56] VITALS: PULSE 84
--- NOTE | 2017-10-07 19:46 | PN ---
DATE: PULMONARY PROGRESS NOTE REFERRING PHYSICIAN: Dr. Palacios. SUBJECTIVE: The patient is lying in the bed with head at 45 degrees, getting nebulizer treatment. Night was unremarkable, on and off using CPAP/BiPAP. Mild cough with sputum production. No chest pain. No abdominal pain or dysuria. No leg pain or leg swelling. OBJECTIVE GENERAL: Not in acute distress. VITAL SIGNS: Temperature is 98, heart rate 86, respiratory rate is 18, and blood pressure 130/77, pulse ox 99% on nasal cannula. HEENT: Moist mucous membrane. Crowded airway. Mallampati score is IV. NECK: Supple. No JVD. LUNGS: Has fair airflow with rhonchi. HEART: S1, S2. ABDOMEN: Soft, nontender, no organomegaly. Ileostomy bag is draining well. EXTREMITIES: There is no edema. NEUROLOGIC: Awake and alert. Follows simple command. CURRENT MEDICATIONS: He is on Mucomyst 20% inhaled twice a day; amiodarone 200 mg daily; Coreg 25 mg twice a day, Coumadin 1 mg daily; digoxin 0.125 mg Tuesday, Tuesday, Tuesday; Flomax 0.4 mg daily; iron sucrose IV daily; Lasix 40 mg IV daily; Levemir 30 units subcutaneous b.i.d.; cefepime 1 g IV every 24 hours, Nuvigil 150 mg daily, Primacor IV drips, Proscar 5 mg daily, Protonix 40 mg daily, multivitamins daily, Tylenol on p.r.n. basis, Xopenex 0.63 mg every 8 hours, Zofran on p.r.n. basis, Zyvox 600 mg twice a day. LABORATORY DATA: Shows hemoglobin 7.6, hematocrit 24.8, WBC 4.5, platelet is 160,000. INR today 3.90. Sodium 139, potassium 3.8, chloride 101, bicarbonate 32, BUN 82, creatinine 2.8, glucose 205, calcium 8.6, magnesium 2.3, AST 39, ALT 32, alkaline phosphatase 116. Albumin is 2.8. Abscess culture has a Coag-negative Staph. Chest x-ray which is done today shows cardiomegaly, congestive heart failure. He is in pulmonary edema, not much change from previous x-ray. IMPRESSION AND PLAN: Cardiomyopathy with pulmonary edema, milrinone-dependent; renal failure, slowly improving;renal function; chronic obstructive lung disease; lung cancer; history of radiation therapy; anemia; history of laparotomy with ileostomy; daytime hypersomnia, on daytime stimulant. Case discussed with respiratory therapist. Spoke to Dr. Palacios. Selena pulmonary point of view, doing well. Keep head at 45 degrees. Sleep apnea precaution. Encourage BiPAP use. Antibiotics as per Infectious Diseases. Continue diuretics. Continue milrinone drip. Gastric prophylaxis, SCDs to lower extremities. Followup INR in the morning. Hold Coumadin and we will follow with you. Arabella Alva MD
--- NOTE | 2017-10-10 08:48 | PN ---
DATE: 10/07/2017 LOCATION: The patient in room 374, bed 2. REASON FOR CONSULTATION AND FOLLOWUP: Congestive heart failure, coronary artery disease, ischemic cardiomyopathy, renal insufficiency. SUBJECTIVE: The patient is lying flat in bed without chest pain, shortness of breath or palpitation. PHYSICAL EXAMINATION: VITAL SIGNS: Blood pressure 154/91, respirations 20, pulse 91, the patient is afebrile 97.8. HEENT: Head is normocephalic. Eyes: Pupils normal. Conjunctivae slightly pale. NECK: JVP low. Carotids equal. THORAX: AP diameter normal. LUNGS: No significant rales. CARDIOVASCULAR: S1 and S2. Pansystolic murmur grade III/. No rub. ABDOMEN: Colostomy present. EXTREMITIES: No clubbing. No cyanosis. LABORATORY DATA: WBC 4.5, hemoglobin 7.6, hematocrit 24.8, platelet 160. Sodium 139, potassium 3.8, BUN 82, creatinine 2.8. Calcium and phosphorus normal. Magnesium 2.3. AST, ALT normal. Total protein 5.8, albumin 2.8. DIAGNOSES: Chronic kidney disease; diabetes; hypertension; hyperlipidemia; coronary artery disease; cardiomyopathy ischemic type, status post coronary angioplasty and stent insertion, left anterior descending coronary artery; status post endovascular stent for abdominal aortic aneurysm; lung cancer; status post colostomy; recurrent urinary tract infection; status post automatic implantable cardioverter-defibrillator insertion. RECOMMENDATION: Plan is Dr. Mathews spoke to Dr. Palacios to consider to consider long-term rehab facility placement for the patient. The patient continued to get Coreg 25 b.i.d.; warfarin 1.5 mg daily; digoxin 0.125 Tuesday, Tuesday, Tuesday; amiodarone 200 daily; Coreg 25 b.i.d.; Lasix 40 IV daily. The patient is on Xopenex and nebulizer therapy. Zyvox is 100 mg b.i.d. Calcitriol 0.25 mcg p.o. Tuesday, Tuesday, Tuesday. Proscar 5 mg daily, milrinone drip as ordered before, cefepime 1 g IV every 24 hours. We will do portable stat chest x-ray to see improvement of CHF. We will follow. Arabella Lopez MD [facility] # [id number]
--- NOTE | 2017-10-10 08:53 | DS ---
HISTORY OF PRESENT ILLNESS: A 72-year-old male who was admitted with change in mental status, was admitted to telemetry. Patient . CT of the head, which was negative. The patient's mental status improved. The patient started on meropenem. Blood cultures were negative. The patient's mental status improved, has less respiratory distress, seems doing well, No nausea or vomiting. Coumadin adjusted. The patient is hemodynamically stable. He also has chronic anemia secondary to chronic renal insufficiency. The patient was seen by weather reporter and dialysis was not an option due to . The patient has ejection fraction 15%, he underwent pacemaker, ICD, and couple of years. The patient has been admitted to an outside hospital because of infections, respiratory distress including CHF, COPD, and pneumonia. The patient is clinically stable. Discussed with Dr. Elkins, discharged to home. Discussed with the family . There is no other complaint. There is no IV antibiotic. TCU is not an option, and no need for IV antibiotics. PHYSICAL EXAMINATION: VITAL SIGNS: Temperature , heart rate 86, blood pressure is 130/77, respirations . HEAD AND NECK: Normal. No JVD. No thyromegaly. CHEST: Clear. CARDIAC: First sound and second sound normal. Very systolic murmur. ABDOMEN: Soft. Colostomy site is clean. EXTREMITIES: No edema. NEUROLOGIC: The patient is generally weak, mainly both lower extremities. The patient is bedridden. LABORATORY DATA: On discharge shows white count 4.5, hemoglobin 7.6, hematocrit 24.8, and platelets 160. Chemistry noted for sodium 139, potassium 3.8, chloride 101, bicarbonate 32. BUN 82, creatinine 2.8. Blood sugar is 194. His calcium is normal at 8.6, phosphorous 3.3, magnesium 2.3. The patient's liver function test is normal. DISCHARGE DIAGNOSES: 1. Acute change in mental status. The patient probably is toxic metabolic, improved. 2. Chronic atrial fibrillation. 3. Ischemic cardiomyopathy. 4. Chronic congestive heart failure. 5. Chronic renal failure. 6. Chronic obstructive pulmonary disease. 7. Lung cancer. 8. Anemia, chronic deficiency. 9. Anemia requiring IV Venofer. 10. Insulin-dependent diabetes. 11. Hypertension. 12. Chronic atrial fibrillation. PLAN: Discharge the patient on Coumadin 1.5 mg p.o. daily, Flomax 0.4 mg IM p.o. b.i.d., Proscar 5 mg daily, Lasix 40 mg p.o. daily, Levemir 30 units b.i.d., mag oxide 400 b.i.d., multivitamins once a day, Protonix 40 once a day, bicarb sodium p.o. t.i.d., Nuvigil 50 p.o. daily, Ecotrin 81 mg p.o. daily, carvedilol 25 mg p.o. b.i.d., famotidine 40 at bedtime p.r.n., amiodarone 200 mg p.o. daily, Lipitor 10 mg p.o. at bedtime, calcium acetate (PhosLo) 667 mg p.o. with meals, calcitriol 0.25 mg p.o. on Tuesday, Tuesday, and Tuesday. The patient advised to follow up . Case has been discussed with the consultants in the case and with the family. Dexter Palacios MD
== END 2017-10-07 18:01 | disposition home or self-care (01) | DRG 291 ==
LOC: ED 23:47 → ERH 10-03 03:42 → 3RSO 10-03 20:37
PROVIDERS: ADMIT Internal Medicine; ATTEND Internal Medicine
PROC: 5A09457 Assistance with Respiratory Ventilation, 24-96 Consecutive Hours, Continuous Positive Airway Pressure (ICD-10-PCS; principal; 2017-10-04)
PROC: 3E0F7GC Introduction of Other Therapeutic Substance into Respiratory Tract, Via Natural or Artificial Opening (ICD-10-PCS; 2017-10-05)
DX: I13.2 Hypertensive heart and chronic kidney disease with heart failure and with stage 5 chronic kidney disease, or end stage renal disease (principal); G92 Toxic encephalopathy; N17.9 Acute kidney failure, unspecified; E44.0 Moderate protein-calorie malnutrition; J44.9 Chronic obstructive pulmonary disease, unspecified; C34.90 Malignant neoplasm of unspecified part of unspecified bronchus or lung; K92.2 Gastrointestinal hemorrhage, unspecified; E11.22 Type 2 diabetes mellitus with diabetic chronic kidney disease; I50.43 Acute on chronic combined systolic (congestive) and diastolic (congestive) heart failure; E87.2 Acidosis; N18.5 Chronic kidney disease, stage 5; N25.81 Secondary hyperparathyroidism of renal origin; N39.0 Urinary tract infection, site not specified; I27.20 Pulmonary hypertension, unspecified; I48.2 Chronic atrial fibrillation; I25.5 Ischemic cardiomyopathy; E87.6 Hypokalemia; N40.0 Benign prostatic hyperplasia without lower urinary tract symptoms; F03.90 Unspecified dementia, unspecified severity, without behavioral disturbance, psychotic disturbance, mood disturbance, and anxiety; E11.51 Type 2 diabetes mellitus with diabetic peripheral angiopathy without gangrene; I48.0 Paroxysmal atrial fibrillation; I25.10 Atherosclerotic heart disease of native coronary artery without angina pectoris; E78.5 Hyperlipidemia, unspecified; D63.1 Anemia in chronic kidney disease; I08.3 Combined rheumatic disorders of mitral, aortic and tricuspid valves; G47.10 Hypersomnia, unspecified; Z99.3 Dependence on wheelchair; Z74.01 Bed confinement status; Z95.5 Presence of coronary angioplasty implant and graft; Z95.810 Presence of automatic (implantable) cardiac defibrillator; Z86.73 Personal history of transient ischemic attack (TIA), and cerebral infarction without residual deficits; Z93.2 Ileostomy status; Z87.01 Personal history of pneumonia (recurrent); Z95.1 Presence of aortocoronary bypass graft; Z87.440 Personal history of urinary (tract) infections; Z92.3 Personal history of irradiation; Z79.4 Long term (current) use of insulin; Z79.01 Long term (current) use of anticoagulants; Z79.82 Long term (current) use of aspirin; Z86.79 Personal history of other diseases of the circulatory system; Z90.49 Acquired absence of other specified parts of digestive tract; Z87.891 Personal history of nicotine dependence

== ENCOUNTER 2017-11-28 09:26 | Inpatient (IN) | payer MEDICARE, MEDICAID ==
[2017-11-28 09:27] VITALS: PULSE 91
[2017-11-28] MEDS ORDERED: Iohexol 240 (50 ml) ONE (10:08)
--- NOTE | 2017-11-28 10:12 | ED PDOC ---
Arrival/HPI - General Chief Complaint: Abdominal Pain Time Seen by Provider: 11/28/17 09:37 Historian: Patient - History of Present Illness Narrative History of Present Illness (Text): 11/28/17 10:12 A 72 year old male, whose past medical history includes CVA, lung CA (radiation) , Atrial Fibrillation, CAD, endocarditis, AAA, AVR, angina pectoris, coronary stents x 3m port to right upper chest, diabetes type 2, colostomy, who is Croatian -spekaing however has no medical interpreter, presents to the emergency department complaining of abdominal pain near colostomy site. Limited HPI and ROS due to language barrier. PMD: Dr. Palacios Symptom Onset: Gradual Symptom Course: Unchanged Quality: Aching Activities at Onset: Light Context: Home Past Medical History - Provider Review Nursing Documentation Reviewed: Yes - Infectious Disease Hx of Infectious Diseases: None - Tetanus Immunization Tetanus Immunization: Unknown - Cardiac Hx Cardiac Disorders: Yes (CAD,ANGINA PECTORIS,ENDOCARDITIS,AAA,STENT,AVR) Hx Cardiac Arrhythmia: Yes (AFIB) Other/Comment: milrinone drip 232 mg/290 D5W infusing from home - Pulmonary Hx Respiratory Disorders: Yes (LUNG CA-RADIATION) - Neurological Hx Neurological Disorder: Yes HX Cerebrovascular Accident: Yes Hx Dizziness: Yes - HEENT Hx HEENT Disorder: Yes - Renal Hx Renal Disorder: Yes Hx Renal Failure: Yes - Endocrine/Metabolic Hx Endocrine Disorders: Yes Hx Diabetes Mellitus Type 2: Yes - Hematological/Oncological Hx Blood Disorders: Yes Hx Anemia: Yes - Integumentary Other/Comment: multiple moles around neck, red raised b/l groin rash , multiple skin discolorations to both arms. PORT TO RIGHT CHEST WALL 09-26-17 - Musculoskeletal/Rheumatological Hx Musculoskeletal Disorders: Yes Hx Falls: Yes - Gastrointestinal Hx Colostomy: Yes - Genitourinary/Gynecological Hx Prostate Problems: Yes (BPH WITH PROSTATE SX) Other/Comment: #16 2wf - Psychiatric Hx Depression: Yes Hx Substance Use: No - Surgical History Hx Coronary Stent: Yes (x3) Other/Comment: port rt upper chest - Anesthesia Hx Anesthesia: Yes - Suicidal Assessment Feels Threatened In Home Enviroment: No Family/Social History - Physician Review Nursing Documentation Reviewed: Yes Family/Social History: No Known Family HX Smoking Status: Never Smoked Hx Alcohol Use: No Hx Substance Use: No Hx Substance Use Treatment: No Allergies/Home Meds Allergies/Adverse Reactions: Allergies No Known Allergies Allergy (Verified 10/03/17 12:09) Home Medications: Home Meds Medication Instructions Recorded Confirmed Pantoprazole Sodium [Protonix] 40 mg PO DAILY 08/12/17 11/28/17 Finasteride [Proscar] 5 mg PO DAILY 08/26/17 11/28/17 Atorvastatin [Lipitor] 10 mg PO DAILY 09/09/17 11/28/17 Ferrous Sulfate [Feosol] 325 mg PO BID 09/09/17 11/28/17 Sodium Bicarbonate Tab 650 mg PO TID 09/09/17 11/28/17 Famotidine [Pepcid] 20 mg PO HS 11/28/17 11/28/17 Furosemide [Lasix] 20 mg PO DAILY 11/28/17 11/28/17 metOLazone [Zaroxolyn] 2.5 mg PO DAILY 11/28/17 11/28/17 Review of Systems - Review of Systems Systems not reviewed;Unavailable: Language Barrier Physical Exam Vital Signs Reviewed: Yes Vital Signs Temp Pulse Resp BP Pulse Ox 11/28/17 20:04 97.6 F 70 18 110/65 99 11/28/17 19:35 97.6 F 71 18 107/63 11/28/17 18:50 97.4 F L 74 19 101/63 11/28/17 18:20 97.4 F L 72 19 100/63 11/28/17 16:39 98 F 68 19 127/70 100 11/28/17 16:00 69 18 138/94 H 100 11/28/17 14:35 74 16 142/101 H 100 11/28/17 14:34 74 142/101 H 11/28/17 12:17 80 18 122/72 99 11/28/17 09:38 97.9 F 83 18 126/71 100 Temperature: Afebrile Blood Pressure: Normal Pulse: Regular Respiratory Rate: Normal Appearance: Positive for: Well-Appearing, Non-Toxic, Comfortable Pain Distress: None Mental Status: Positive for: Alert and Oriented X 3 - Systems Exam Respiratory/Chest: Present: Clear to Auscultation, Good Air Exchange. No: Respiratory Distress, Accessory Muscle Use Cardiovascular: Present: Regular Rate and Rhythm, Normal S1, S2. No: Murmurs Abdomen: Present: Tenderness, Other (colostomy bag located RLQ, intact, good color) Upper Extremity: Present: Normal Inspection. No: Cyanosis, Edema Lower Extremity: Present: Normal Inspection. No: Edema Neurological: Present: GCS=15, CN II-XII Intact, Speech Normal Skin: Present: Warm, Dry, Normal Color. No: Rashes Psychiatric: Present: Alert, Oriented x 3, Normal Insight, Normal Concentration Medical Decision Making ED Course and Treatment: 11/28/17 10:19 Impression: 72 year old male with abdominal pain at colostomy site. Physical exam shows tenderness to abdomen; colostomy located at RLQ, intact, good color. Plan: -- EKG -- Abd/Pelvis CT -- Chest X-ray -- Labs -- Blood Culture -- Urine Culture -- Venous Blood Gas -- Urinalysis -- Reassess and disposition Progress Notes: EKG: Ordered, reviewed, and independently interpreted the EKG. Rate : 79 BPM Rhythm : Sinus rhythm with 1st degree AV block with occasional premature ventricular complexes. Interpretation : No ST-segment elevations or depressions, no T-wave inversions, normal intervals. Comparison : No previous EKG for comparison. 11/28/2017 14:08 Abd/Pelvis CT IMPRESSION: New hypodense lesions in the right lobe of the liver consistent with metastatic disease. Dictator: Federico Gutierrez MD 11/28/17 15:22 Spoke with patients , who reports patients primary reason for his visit today concerns blood noted in his colostomy bag. She reports patient has a history of left lung cancer which is being monitored. is requesting to evaluate whether the tumor had increased or decreased in size. 11/28/17 16:11 Used computer medical interpreter to discuss results and plan with patient and family. They were informed patient will require a blood transfusion of 2 units of blood and CT results showed metastasis to the liver. Patient and family expressed understanding, and were given a chance to ask questions. - Lab Interpretations Microbiology Results: Microbiology Results 11/28/17 11:59 Blood-Venous Blood Culture - Final NO GROWTH AFTER 5 DAYS 11/28/17 11:59 Blood-Venous Gram Stain - Final TEST NOT PERFORMED 11/28/17 12:12 Urine,Clean Catch Urine Culture - Final Klebsiella Pneumoniae Ssp Pneu Lab Results: 11/28/17 11:59 11/28/17 11:59 Lab Results 11/28/17 12:12: Urine Color Yellow, Urine Appearance Clear, Urine pH 7.0, Ur Specific Decker 1.020, Urine Protein 100 H, Urine Glucose (UA) Negative, Urine Ketones Negative, Urine Blood Trace-intact H, Urine Nitrate Negative, Urine Bilirubin Negative, Urine Urobilinogen 0.2, Ur Leukocyte Esterase Large H, Urine RBC 2 - 5, Urine WBC 25 - 30, Urine Bacteria Large, Urine Other Uyeast 11/28/17 11:59: Sodium 133, Chloride 92 L, Potassium 4.6, Carbon Dioxide 28, Anion Gap 17, BUN 74 H, Creatinine 3.5 H, Est GFR ( Amer) 21, Est GFR ( Non-Af Amer) 17, Random Glucose 243 H, Calcium 9.5, Total Bilirubin 0.4, AST 45 , ALT 31, Alkaline Phosphatase 161 H, Lactate Dehydrogenase 543, Total Creatine Kinase 23 L, Troponin I 0.02 D, NT-Pro-B Natriuret Pep 6330 H, Total Protein 7.4, Albumin 3.6, Globulin 3.8, Albumin/Globulin Ratio 1.0 L, Lipase 392 H 11/28/17 11:59: pO2 46, VBG pH 7.39, VBG pCO2 51.0, VBG HCO3 30.9 H, VBG Total CO2 32.5 H, VBG O2 Sat (Calc) 85.4 H, VBG Base Excess 4.7 H, VBG Potassium 4.4, Sodium 129.0 L, Chloride 94.0 L, Glucose 253 H, Lactate 1.3, FiO2 21.0, Venous Blood Potassium 4.4 11/28/17 11:59: PT 15.7 H, INR 1.36 H 11/28/17 11:59: WBC 7.2 D, RBC 3.00 L, Hgb 7.5 L D, Hct 23.3 L, MCV 77.7 L, MCH 25.0, MCHC 32.2, RDW 16.9 H, Plt Count 419, MPV 9.1, Gran % 67.6, Lymph % ( Auto) 19.4 L, Stark % (Auto) 10.9 H, Eos % (Auto) 2.0, Baso % (Auto) 0.1, Gran # 4.85, Lymph # (Auto) 1.4, Stark # (Auto) 0.8 H, Eos # (Auto) 0.1, Baso # (Auto) 0.01 I have reviewed the lab results: Yes - RAD Interpretation Radiology Orders: 11/28/17 09:59 ABD & PELVIS PO CONTRAST ONLY [CT] Stat CHEST PORTABLE [RAD] Stat - Medication Orders Current Medication Orders: Discontinued Medications Acetylcysteine (Acetylcysteine 20%) 3 ml INH TID [facility] Last Admin: 12/06/17 20:00 Dose: 3 ml Amiodarone HCl (Cordarone) 200 mg PO DAILY [facility] Last Admin: 12/06/17 09:07 Dose: 200 mg Atorvastatin Calcium (Lipitor) 10 mg PO DAILY [facility] Last Admin: 12/06/17 09:10 Dose: 10 mg Calcium Acetate (Phoslo) 667 mg PO WM [facility] Last Admin: 12/06/17 16:45 Dose: 667 mg Carvedilol (Coreg) 25 mg PO BID [facility] Last Admin: 12/06/17 17:24 Dose: 25 mg Darbepoetin Alfie (Aranesp) 60 mcg SC ONCE ONE Stop: 11/30/17 10:01 Last Admin: 11/30/17 17:25 Dose: 60 mcg Subcutaneous Administrations Document 11/30/17 17:25 CD (Rec: 11/30/17 17:25 CD [id number]) Injection Site MAR Injection Site Right Arm Charges for Administration # of Subcutaneous Administrations 1 Dextrose (Dextrose 50% Inj) 50 ml IVP ONCE ONE Stop: 11/29/17 07:50 Last Admin: 11/29/17 09:04 Dose: 50 ml Comments: gave patient 8 oz of orange juice prior to this administration o see if his glucose levels increase. Patient glucose increased from 42 to 63. As a result I will administer this med. IVP Administration Document 11/29/17 09:04 KMS (Rec: 11/29/17 09:05 KM [id number]) Charges for Administration # of IVP Administrations 1 Dextrose (Dextrose 50% Inj) 50 ml IVP ONCE ONE Stop: 11/30/17 08:19 Last Admin: 11/30/17 08:23 Dose: 50 ml IVP Administration Document 11/30/17 08:23 CD (Rec: 11/30/17 08:23 CD [id number]) Charges for Administration # of IVP Administrations 1 Dextrose (Dextrose 50% Inj) 50 ml IVP ONCE ONE Stop: 12/03/17 08:21 Last Admin: 12/03/17 08:32 Dose: 50 ml IVP Administration Document 12/03/17 08:32 (Rec: 12/03/17 08:32 [facility] [id number]) Charges for Administration # of IVP Administrations 1 Doxycycline Hyclate (Doryx) 100 mg PO Q12 ANTHONY Stop: 12/05/17 10:16 Last Admin: 12/05/17 09:19 Dose: 100 mg Famotidine (Pepcid) 20 mg PO HS [facility] Last Admin: 12/05/17 22:07 Dose: 20 mg Ferrous Sulfate (Feosol) 324 mg PO BID [facility] Last Admin: 11/30/17 12:54 Dose: 324 mg Finasteride (Proscar) 5 mg PO DAILY [facility] Last Admin: 12/06/17 09:10 Dose: 5 mg Furosemide (Lasix) 20 mg IVP DAILY [facility] Last Admin: 12/06/17 09:09 Dose: 20 mg MAR Blood Pressure Document 12/06/17 09:09 [facility] (Rec: 12/06/17 09:09 [id number] Blood Pressure Blood Pressure (100/60-150/90) 130/70 IVP Administration Document 12/06/17 09:09 [facility] (Rec: 12/06/17 09:09 [id number][facility] Charges for Administration # of IVP Administrations 1 Sodium Chloride (Sodium Chloride 0.9%) 1,000 mls @ 999 mls/hr IV .Q1H1M STA Stop: 11/28/17 15:13 Last Admin: 11/28/17 14:35 Dose: 999 mls/hr eMAR Start Stop Document 11/28/17 14:35 [facility] (Rec: 11/28/17 14:35 [facility] [id number]) Intravenous Solution Start Date 11/28/17 Start Time 14:35 End Date 11/28/17 End time 15:35 Total Infusion Time 60 Ceftriaxone Sodium (Rocephin 1 Gram Ivpb) 1 gm in 100 mls @ 200 mls/hr IVPB STAT STA PRN Reason: Protocol Stop: 11/28/17 16:19 Last Admin: 11/28/17 16:32 Dose: 200 mls/hr eMAR Start Stop Document 11/28/17 16:32 LA (Rec: 11/28/17 16:32 LA [id number]) Intravenous Solution Start Date 11/28/17 Start Time 16:32 End Date 11/28/17 End time 17:02 Total Infusion Time 30 Azithromycin (Zithromax 500mg In Ns) 500 mg in 250 mls @ 167 mls/hr IVPB STAT STA PRN Reason: Protocol Stop: 11/28/17 17:19 Last Admin: 11/28/17 17:31 Dose: 167 mls/hr eMAR Start Stop Document 11/28/17 17:31 LA (Rec: 11/28/17 17:32 LA [id number]) Intravenous Solution Start Date 11/28/17 Start Time 17:31 End Date 11/28/17 End time 19:01 Total Infusion Time 90 Milrinone Lactate/Dextrose (Primacor 20mg/100ml D5w) 100 mls @ 2.381 mls/hr IV .Q24H PRN; Protocol; 0.125 MCG/KG/MIN PRN Reason: TITRATE PER MD ORDER Last Admin: 12/06/17 16:46 Dose: 0.125 mcg/kg/min, 2.381 mls/hr eMAR Start Stop Document 12/06/17 16:46 MJO (Rec: 12/06/17 16:46 MJO [id number]) Intravenous Solution Start Date 12/06/17 Start Time 16:46 Titration Intervention Document 12/06/17 16:46 MJO (Rec: 12/06/17 16:46 MJO [id number]) Titration Intake Cumulative Intake (Rx) 400 Waste Amount 0 Container Volume 100 Titration Dosing Titration Dose 0.125 IV Rate 2.381 Intake/Decrease Started/Running Cumulative Dose 80 Ceftriaxone Sodium (Rocephin 1 Gram Ivpb) 1 gm in 100 mls @ 100 mls/hr IVPB DAILY ANTHONY PRN Reason: Protocol Last Admin: 11/30/17 14:17 Dose: Doxycycline Hyclate 100 mg/ (Sodium Chloride) 100 mls @ 100 mls/hr IVPB Q12 ANTHONY PRN Reason: Protocol Last Admin: 11/30/17 22:25 Dose: 100 mls/hr eMAR Start Stop Document 11/30/17 22:25 TYPING SECTION CHIEF (Rec: 11/30/17 22:25 TYPING SECTION CHIEF [facility] [id number] Intravenous Solution Start Date 11/30/17 Start Time 22:25 Meropenem 500 mg/ Sodium (Chloride) 50 mls @ 100 mls/hr IVPB Q12 ANTHONY PRN Reason: Protocol Stop: 11/30/17 10:44 Last Admin: 11/30/17 12:53 Dose: 100 mls/hr eMAR Start Stop Document 11/30/17 12:53 CD (Rec: 11/30/17 12:53 CD [id number]) Intravenous Solution Start Date 11/30/17 Start Time 12:53 Iron Sucrose 200 mg/ Sodium (Chloride) 110 mls @ 110 mls/hr IVPB ONCE ONE Stop: 11/30/17 11:05 Last Admin: 11/30/17 12:51 Dose: 110 mls/hr eMAR Start Stop Document 11/30/17 12:51 CD (Rec: 11/30/17 12:51 CD [id number]) Intravenous Solution Start Date 11/30/17 Start Time 12:51 Iron Sucrose 200 mg/ Sodium (Chloride) 110 mls @ 110 mls/hr IVPB DAILY ANTHONY Stop: 12/04/17 10:59 Last Admin: 12/04/17 09:22 Dose: 110 mls/hr eMAR Start Stop Document 12/04/17 09:22 AJ (Rec: 12/04/17 09:22 AJ [facility] [id number][place] Intravenous Solution Start Date 12/04/17 Start Time 09:22 Meropenem 250 mg/ Sodium (Chloride) 100 mls @ 100 mls/hr IVPB Q12H ANTHONY PRN Reason: Protocol Stop: 12/09/17 22:46 Last Admin: 12/01/17 22:15 Dose: 100 mls/hr eMAR Start Stop Document 12/01/17 22:15 TYPING SECTION CHIEF (Rec: 12/01/17 22:15 TYPING SECTION CHIEF [facility] [id number][place] Intravenous Solution Start Date 12/01/17 Start Time 22:15 End Date 12/01/17 Ceftazidime/Avibactam 0.94 gm/ (Sodium Chloride) 50 mls @ 25 mls/hr IV Q12 ANTHONY Last Admin: 12/06/17 10:14 Dose: 25 mls/hr eMAR Start Stop Document 12/06/17 10:14 MJO (Rec: 12/06/17 10:15 MJO [id number]) Intravenous Solution Start Date 12/06/17 Start Time 10:15 End Date 12/06/17 End time 11:15 Total Infusion Time 60 Insulin Detemir (Levemir) 30 unit SC BID [facility] Last Admin: 11/29/17 17:43 Dose: 30 unit MAR Blood Glucose Document 11/29/17 17:43 KMS (Rec: 11/29/17 17:44 KMS [place] [id number]) Blood Glucose Finger Stick Blood Glucose (70-120) 202 Subcutaneous Administrations Document 11/29/17 17:43 KMS (Rec: 11/29/17 17:44 KMS [place] [id number]) Injection Site MAR Injection Site Left Arm Charges for Administration # of Subcutaneous Administrations 1 Insulin Detemir (Levemir) 15 unit SC BID [facility] Last Admin: 12/02/17 18:46 Dose: 15 unit MAR Blood Glucose Document 12/02/17 18:46 TAV (Rec: 12/02/17 18:47 TAV [id number]) Blood Glucose Finger Stick Blood Glucose (70-120) 190 Subcutaneous Administrations Document 12/02/17 18:46 TAV (Rec: 12/02/17 18:47 TAV [id number]) Charges for Administration # of Subcutaneous Administrations 1 Insulin Detemir (Levemir) 10 unit SC BID [facility] Last Admin: 12/06/17 17:23 Dose: Insulin Human Regular (Humulin R Low) 0 units SC ACHS [facility] PRN Reason: Protocol Last Admin: 12/06/17 16:35 Dose: Not Given Non-Admin Reason: Blood Sugar Parameter MAR Blood Glucose Document 12/06/17 16:35 MJO (Rec: 12/06/17 16:35 [facility] [id number]) Blood Glucose Finger Stick Blood Glucose (70-120) 223 Levalbuterol HCl (Xopenex) 0.63 mg IH TIDRESP [facility] Last Admin: 12/06/17 20:01 Dose: 0.63 mg Lidocaine HCl (Lidocaine 2% Viscous) 15 ml MM TID [facility] Last Admin: 12/06/17 17:23 Dose: 15 ml Magnesium Oxide (Mag-Ox) 400 mg PO BID [facility] Last Admin: 12/06/17 17:24 Dose: 400 mg Metolazone (Zaroxolyn) 2.5 mg PO DAILY [facility] Last Admin: 12/06/17 09:10 Dose: 2.5 mg Metoprolol Tartrate (Lopressor) 5 mg IVP STAT STA Stop: 11/28/17 14:14 Last Admin: 11/28/17 14:34 Dose: 5 mg IVP Administration Document 11/28/17 14:34 LMC (Rec: 11/28/17 14:35 LMC [id number]) Charges for Administration # of IVP Administrations 1 [facility] Pulse and Blood Pressure Document 11/28/17 14:34 LMC (Rec: 11/28/17 14:35 LMC [id number]) Pulse Pulse Rate (60-90) 74 Blood Pressure Blood Pressure (100/60-150/90) 142/101 Morphine Sulfate (Morphine) 4 mg IVP STAT STA Stop: 11/28/17 14:14 Last Admin: 11/28/17 14:34 Dose: 4 mg MAR Pain Assessment Document 11/28/17 14:34 LMC (Rec: 11/28/17 14:34 [facility] [id number]) Pain Reassessment Is this a pain reassessment? Yes Sleep Is patient sleeping during reassessment? No Presence of Pain Presence of Pain Yes Pain Scale Used Pain Scale Used Numeric Location Pain Location Body Site Abdomen Description Intensity of Pain at present 7 IVP Administration Document 11/28/17 14:34 LMC (Rec: 11/28/17 14:34 [facility] [id number]) Charges for Administration # of IVP Administrations 1 Re-Assess: MAR Pain Assessment Document 11/28/17 15:34 LA (Rec: 11/28/17 17:32 LA [id number]) Pain Reassessment Is this a pain reassessment? Yes Sleep Is patient sleeping during reassessment? Yes Multivitamins (Thera Tab) 1 tab PO 0800 ANTHONY Last Admin: 12/06/17 09:10 Dose: 1 tab Ondansetron HCl (Zofran Inj) 8 mg IVP STAT STA Stop: 11/28/17 14:14 Last Admin: 11/28/17 14:34 Dose: 8 mg IVP Administration Document 11/28/17 14:34 LMC (Rec: 11/28/17 14:34 [facility] [id number]) Charges for Administration # of IVP Administrations 1 Oxycodone HCl (Oxycodone Immediate Release Tab) 5 mg PO Q6H PRN PRN Reason: Pain, severe (8-10) Stop: 12/04/17 23:59 Last Admin: 11/29/17 17:49 Dose: 5 mg MAR Pain Assessment Document 11/29/17 17:49 KMS (Rec: 11/29/17 17:50 KMS [id number]) Pain Reassessment Is this a pain reassessment? No Presence of Pain Presence of Pain Yes Location Left, Right or Bilateral Right Pain Location Body Site Abdomen Pantoprazole Sodium (Protonix Ec Tab) 40 mg PO DAILY [facility] Last Admin: 12/06/17 09:10 Dose: 40 mg Polysaccharide Iron Complex (Ferrex-150) 150 mg PO DAILY [facility] Last Admin: 12/06/17 09:08 Dose: 150 mg Potassium Chloride (K-Dur 20 Meq Er Tab) 20 meq PO ONCE ONE Stop: 12/06/17 10:01 Sodium Bicarbonate (Sodium Bicarbonate Tab) 650 mg PO TID [facility] Last Admin: 11/30/17 13:04 Dose: 650 mg Sodium Bicarbonate (Sodium Bicarbonate Tab) 650 mg PO DAILY [facility] Last Admin: 12/06/17 09:10 Dose: 650 mg Tamsulosin HCl (Flomax) 0.4 mg PO DAILY [facility] Last Admin: 12/06/17 09:09 Dose: 0.4 mg Warfarin Sodium (Coumadin) 2 mg PO 1800 [facility] PRN Reason: Protocol Last Admin: 12/05/17 17:36 Dose: 2 mg Warfarin Sodium (Coumadin) 1.5 mg PO 1800 [facility] PRN Reason: Protocol Last Admin: 12/06/17 17:29 Dose: 1.5 mg MAR INR Result Document 12/06/17 17:29 MJO (Rec: 12/06/17 17:29 MJO [id number]) INR INR 2.3 - Scribe Statement The provider has reviewed the documentation as recorded by the Jasper Drew Provider Scribe Attestation: All medical record entries made by the Scribe were at my direction and personally dictated by me. I have reviewed the chart and agree that the record accurately reflects my personal performance of the history, physical exam, medical decision making, and the department course for this patient. I have also personally directed, reviewed, and agree with the discharge instructions and disposition. Disposition/Present on Arrival - Present on Arrival Any Indicators Present on Arrival: Yes History of DVT/PE: No History of Uncontrolled Diabetes: Yes Urinary Catheter: Yes History of Decub. Ulcer: No History Surgical Site Infection Following: None - Disposition Have Diagnosis and Disposition been Completed?: Yes Diagnosis: Abdominal pain, Metastatic disease, Anemia, Dehydration Disposition: HOSPITALIZED Disposition Time: 14:10 Patient Plan: Admission Condition: FAIR
[2017-11-28] MEDS ORDERED: Iohexol 350 MG/100 ML VIAL ONE (12:00)
[2017-11-28 12:06] LABS: BASO # 0.01 K/mm3 (0.0-2.0); BASO % 0.1 % (0.0-3.0); EOS # 0.1 (0.0-0.7); GRAN # 4.85 (1.4-6.5); GRAN % 67.6 % (50.0-68.0); HEMOGLOBIN 7.5 g/dL (14.0-18.0); LYMPH # 1.4 (1.2-3.4); LYMPH % 19.4 % (22.0-35.0); MEAN CELL VOLUME 77.7 fl (80.0-105.0); MEAN CORPUSCULAR HGB CONC 32.2 g/dl (31.0-37.0); MEAN PLATELET VOLUME 9.1 fl (7.0-11.0); MONO # 0.8 (0.1-0.6); MONO % 10.9 % (1.0-6.0); RED CELL DISTRIBUTION WIDTH 16.9 % (11.5-14.5); VENOUS BLOOD GAS BASE EXCESS 4.7 mmol/L (0.0-2.0); VENOUS BLOOD GAS PO2 46 mm/Hg (30-55); VENOUS BLOOD PH 7.39 (7.32-7.43); WHITE BLOOD COUNT 7.2 10^3/ul (4.5-11.0)
[2017-11-28 12:16] LABS: ALBUMIN 3.6 g/dL (3.0-4.8); CALCIUM 9.5 mg/dL (8.4-10.5)
[2017-11-28 12:18] LABS: INR 1.36 (0.93-1.08); PROTHROMBIN TIME 15.7 SECONDS (9.4-12.5)
[2017-11-28 12:23] LABS: URINE BILIRUBIN NEGATIVE (NEGATIVE); URINE BLOOD TRACE-INTACT (NEGATIVE); URINE GLUCOSE (UA) NEGATIVE (NEGATIVE); URINE LEUKOCYTE ESTERASE LARGE Leu/uL (NEGATIVE); URINE PROTEIN 100 mg/dL (<30 mg/dL); URINE UROBILINOGEN 0.2 E.U./dL (<1 E.U./dL)
[2017-11-28 12:32] LABS: URINE APPEARANCE CLEAR (CLEAR); URINE COLOR YELLOW (YELLOW)
[2017-11-28 12:34] LABS: URINE BACTERIA LARGE (NEG); URINE WBC 25 - 30 /hpf (0-6)
[2017-11-28 12:37] LABS: TROPONIN I 0.02 ng/mL
--- NOTE | 2017-11-28 14:10 | CT ---
PROCEDURE: CT Abdomen and Pelvis without intravenous contrast HISTORY: abdominal pain COMPARISON: 08/26/2017 TECHNIQUE: Without contrast.. Contrast dose: Radiation dose: Total exam DLP = 252 mGy-cm. This CT exam was performed using one or more of the following dose reduction techniques: Automated exposure control, adjustment of the mA and/or kV according to patient size, and/or use of iterative reconstruction technique. FINDINGS: LOWER THORAX: Unremarkable. LIVER: There are 2 separate hypodense lesions in the right lobe of the liver measuring 2.6 and 2.4 cm in diameter. These are consistent with metastatic disease. These were not visible previously GALLBLADDER AND BILE DUCTS: Unremarkable. PANCREAS: Unremarkable. No gross lesion or ductal dilatation. SPLEEN: Unremarkable. ADRENALS: Unremarkable. No mass. KIDNEYS AND URETERS: There are multiple renal cysts. Some in the cysts are hyper dense consistent with hemorrhage. VASCULATURE: There is a large infra renal abdominal aortic aneurysm measuring 7.6 cm in diameter. There is an aortic stent graft within it. There are some peripheral calcifications within the mural thrombus. Findings are unchanged BOWEL: Colon resection There is an ostomy in the right lower quadrant APPENDIX: Resected PERITONEUM: Unremarkable. No free fluid. No free air. LYMPH NODES: Unremarkable. No enlarged lymph nodes. BLADDER: Unremarkable. REPRODUCTIVE: Unremarkable. BONES: No acute fracture. OTHER FINDINGS: None. IMPRESSION: New hypodense lesions in the right lobe of the liver consistent with metastatic disease.
[2017-11-28] MEDS ORDERED: Metoprolol 1 mg/ml Inj IVP STA (14:13)
[2017-11-28] MEDS ORDERED: Sodium Chloride 0.9% 1,000 ML IV STA (14:13)
[2017-11-28] MEDS ORDERED: Morphine 4 mg/ml ISec IVP STA (14:13)
--- NOTE | 2017-11-28 15:18 | RAD ---
HISTORY: abdominal pain COMPARISON: 10/07/2017 FINDINGS: LUNGS: Small focal area of consolidation in the left mid lung suspicious for pneumonia PLEURA: No significant pleural effusion identified, no pneumothorax apparent. CARDIOVASCULAR: Mild cardiomegaly OSSEOUS STRUCTURES: No significant abnormalities. VISUALIZED UPPER ABDOMEN: Normal. OTHER FINDINGS: Pacemaker and Port-A-Cath IMPRESSION: Small focal area of consolidation in the left mid lung suspicious for pneumonia
[2017-11-28] MEDS ORDERED: cefTRIAXone 1 gm 1 GM/100 ML BAG IVPB STA (15:50)
[2017-11-28] MEDS ORDERED: Azithromycin 500MG/NS 250ml 500 MG/250 ML BAG IVPB STA (15:50)
--- NOTE | 2017-11-28 16:40 | CARD ---
APPROVED REPORT EKG Measurement Heart [id number] <Conclusion> Sinus rhythm with 1st degree AV block with occasional premature ventricular complexes Cannot rule out Inferior infarct, age undetermined Abnormal ECG
[2017-11-28] MEDS: Milrinone 20mg/100ml D5W 100 ML IV PRN (21:06)
[2017-11-28] MEDS ORDERED: oxyCODONE 5 mg Immediate Release Tab PO PRN (22:26)
[2017-11-28] MEDS: Insulin Detemir 100 units/ml Vial (Levemir) SC SCH (23:07)
[2017-11-29 04:54] VITALS: BMI 25.6
[2017-11-29] MEDS ORDERED: Dextrose 50% SYRINGE Inj (50 ml) IVP ONE (07:49)
[2017-11-29] MEDS: Insulin Reg-LOW-Coverage SC SCH ×4 (08:07→23:15)
[2017-11-29] MEDS: metOLazone 2.5 MG TAB PO SCH (09:06)
[2017-11-29] MEDS: Multivitamin Therapeutic Tab PO SCH (09:06)
[2017-11-29] MEDS: Pantoprazole 40 mg EC Tab PO SCH (09:07)
[2017-11-29] MEDS: Magnesium Oxide 400 mg Tab UD PO SCH ×2 (09:07→17:44)
[2017-11-29] MEDS ORDERED: Primacor 1 mg/ml Inj (10 ml) IV SCH (10:00)
[2017-11-29] MEDS: Insulin Detemir 100 units/ml Vial (Levemir) SC SCH ×3 (10:00→17:43)
[2017-11-29 12:37] LABS: EOS % 0.5 % (1.5-5.0); GRAN # 6.25 (1.4-6.5); GRAN % 81.6 % (50.0-68.0); HEMOGLOBIN 8.5 g/dL (14.0-18.0); LYMPH % 12.5 % (22.0-35.0); MEAN CELL VOLUME 79.6 fl (80.0-105.0); MEAN CORPUSCULAR HEMOGLOBIN 26.3 pg (25.0-35.0); MEAN CORPUSCULAR HGB CONC 33.1 g/dl (31.0-37.0); MONO # 0.4 (0.1-0.6); MONO % 5.4 % (1.0-6.0); RBC 3.23 10^6/uL (3.5-6.1); WHITE BLOOD COUNT 7.7 10^3/ul (4.5-11.0)
[2017-11-29 12:43] LABS: CALCIUM 8.7 mg/dL (8.4-10.5)
--- NOTE | 2017-11-29 12:47 | CP.PCM.CON ---
History of Present Illness - History of Present Illness History of Present Illness: Heme Onc Consult Note Dr Samson CC: Abdominal pain and blood in colostomy HPI: 72 Mongolian speaking M with past medical history of Lung ca( radiation), CKD , AAA (stent) severe cariomyopathy with EF 10-15%, CVA, paroxysmal atrial fibrillation on coumadin, IDDM, COPD, CAD s/p 3 stents,SVT, AICD, partial colectomy and colosotomy, milrinone drip 232 mg/290 D5W infusing from home, ESBL E. coli bactermiea, and endocarditis presented to [facility] [place] [facility] with complaints of abdominal pain and blood noted in his colostomy. Patient recently admitted for GI bleed in 10/2017. Patient was seen and examined at bedside. Patient has complaints of mild abdominal pain rated at 4/10 throbbing and aching in quality and recently noted blood in his colostomy bag, previously it was black and tarry , however now has been bright red. Patient denied fever chills, shortness of breath, cheat pains, nausea, vomiting, dysuria, constipation or diarrhea. PMHx: severe cardiomyopathy, EF 15% on Primacor drip at home, AICD, ASHD, CAD s/ p stents, A Fib/ PAT/SVT, AICD, AAA, DM,s/p colectomy with colostomy, bacteremia , HCAP, CKD stage IV,BPH and anemia PSHx: Colectomy, AICD placement SHx:Never smoker, no alcohol or drug use. lives with spouse. Speaks Mongolian only. Family History: Non contributory Meds: MAR Reviewed Allergies: NKDA Review of Systems - Review of Systems Review of Systems: As per HPI otherwise negative Past Patient History - Infectious Disease Hx of Infectious Diseases: None - Tetanus Immunizations Tetanus Immunization: Unknown - Past Medical History & Family History Past Medical History?: Yes - Past Social History Smoking Status: Never Smoked - CARDIAC Hx Hypertension: Yes Hx Pacemaker: Yes - PULMONARY Hx Asthma: Yes Hx Chronic Obstructive Pulmonary Disease (COPD): Yes Hx Emphysema: Yes Hx Pneumonia: Yes - NEUROLOGICAL Hx Neurological Disorder: Yes HX Cerebrovascular Accident: Yes Hx Dizziness: Yes - HEENT Hx Cataracts: Yes (b/l surgery) - RENAL Hx Chronic Kidney Disease: No - ENDOCRINE/METABOLIC Hx Diabetes Mellitus Type 1: Yes Hx Diabetes Mellitus Type 2: Yes - HEMATOLOGICAL/ONCOLOGICAL Hx Anemia: Yes Hx Cancer: Yes Hx Unexplained Bleeding: Yes - INTEGUMENTARY Hx Dermatological Problems: No - MUSCULOSKELETAL/RHEUMATOLOGICAL Hx Falls: Yes Hx Unsteady Gait: Yes - GASTROINTESTINAL Hx Colostomy: Yes Hx Diverticulitis: Yes Hx Gastroesophageal Reflux: Yes - GENITOURINARY/GYNECOLOGICAL Hx Incontinence: Yes Hx Prostate Problems: Yes - PSYCHIATRIC Hx Anxiety: Yes Hx Depression: Yes Hx Substance Use: No - SURGICAL HISTORY Hx Surgeries: Yes (Prostate, Catherization) Hx Appendectomy: Yes Hx Cardiac Catheterization: Yes Hx Coronary Stent: Yes - ANESTHESIA Hx Anesthesia: Yes Meds Allergies/Adverse Reactions: Allergies Allergy/AdvReac Type Severity Reaction Status Date / Time No Known Allergies Allergy Verified 10/03/17 12:09 - Medications Medications: Current Medications Amiodarone HCl (Cordarone) 200 mg PO DAILY [facility] Last Admin: 11/29/17 09:07 Dose: 200 mg Atorvastatin Calcium (Lipitor) 10 mg PO DAILY [facility] Last Admin: 11/29/17 09:07 Dose: 10 mg Calcium Acetate (Phoslo) 667 mg PO WM [facility] Last Admin: 11/29/17 09:06 Dose: 667 mg Carvedilol (Coreg) 25 mg PO BID [facility] Last Admin: 11/29/17 09:06 Dose: 25 mg Famotidine (Pepcid) 20 mg PO [facility] Ferrous Sulfate (Feosol) 324 mg PO BID [facility] Last Admin: 11/29/17 09:06 Dose: 324 mg Finasteride (Proscar) 5 mg PO DAILY [facility] Last Admin: 11/29/17 09:06 Dose: 5 mg Furosemide (Lasix) 20 mg IVP DAILY [facility] Last Admin: 11/29/17 09:07 Dose: 20 mg Milrinone Lactate/Dextrose (Primacor 20mg/100ml D5w) 100 mls @ 2.381 mls/hr IV .Q24H PRN; Protocol; 0.125 MCG/KG/MIN PRN Reason: TITRATE PER MD ORDER Last Admin: 11/28/17 21:06 Dose: 0.125 mcg/kg/min, 2.381 mls/hr Ceftriaxone Sodium (Rocephin 1 Gram Ivpb) 1 gm in 100 mls @ 100 mls/hr IVPB DAILY [facility] PRN Reason: Protocol Insulin Detemir (Levemir) 30 unit SC BID [facility] Last Admin: 11/28/17 23:07 Dose: 30 unit Insulin Human Regular (Humulin R Low) 0 units SC ACHS [facility] PRN Reason: Protocol Last Admin: 11/29/17 08:07 Dose: Not Given Magnesium Oxide (Mag-Ox) 400 mg PO BID [facility] Last Admin: 11/29/17 09:07 Dose: 400 mg Metolazone (Zaroxolyn) 2.5 mg PO DAILY [facility] Last Admin: 11/29/17 09:06 Dose: 2.5 mg Multivitamins (Thera Tab) 1 tab PO 0800 [facility] Last Admin: 11/29/17 09:06 Dose: 1 tab Oxycodone HCl (Oxycodone Immediate Release Tab) 5 mg PO Q6H PRN PRN Reason: Pain, severe (8-10) Stop: 12/04/17 23:59 Pantoprazole Sodium (Protonix Ec Tab) 40 mg PO DAILY [facility] Last Admin: 11/29/17 09:07 Dose: 40 mg Sodium Bicarbonate (Sodium Bicarbonate Tab) 650 mg PO TID [facility] Last Admin: 11/29/17 09:07 Dose: 650 mg Tamsulosin HCl (Flomax) 0.4 mg PO DAILY [facility] Last Admin: 11/29/17 09:07 Dose: 0.4 mg Physical Exam - Constitutional Appears: No Acute Distress - Head Exam Head Exam: ATRAUMATIC, NORMAL INSPECTION, NORMOCEPHALIC - Eye Exam Pupil Exam: NORMAL ACCOMODATION, PERRL - ENT Exam ENT Exam: Mucous Membranes Dry - Respiratory Exam Respiratory Exam: Decreased Breath Sounds, NORMAL BREATHING PATTERN - Cardiovascular Exam Cardiovascular Exam: REGULAR RHYTHM, +S1, +S2 - GI/Abdominal Exam GI & Abdominal Exam: Normal Bowel Sounds, Soft, Tenderness Additional comments: colostomy no blood noted - Neurological Exam Neurological exam: Alert, CN II-XII Intact, Reflexes Normal - Psychiatric Exam Additional comments: somnloment - Skin Skin Exam: Dry, Intact, Normal Color, Warm Results - Vital Signs Recent Vital Signs: Last Vital Signs Temp 97 F L 11/29/17 12:00 Pulse 71 11/29/17 12:00 Resp 19 11/29/17 12:00 BP 110/67 11/29/17 12:00 Pulse Ox 97 11/29/17 06:00 - Labs Result Diagrams: 11/29/17 12:29 11/29/17 12:29 Labs: Laboratory Results - last 24 hr 11/28/17 11/29/17 11/29/17 16:15 11:26 12:29 WBC 7.7 RBC 3.23 L Hgb 8.5 L Hct 25.7 L MCV 79.6 L MCH 26.3 MCHC 33.1 RDW 17.0 H Plt Count 327 MPV 9.0 Gran % 81.6 H Lymph % (Auto) 12.5 L [place] % (Auto) 5.4 Eos % (Auto) 0.5 L Baso % (Auto) 0.0 Gran # 6.25 Lymph # (Auto) 1.0 L [place] # (Auto) 0.4 Eos # (Auto) 0.0 Baso # (Auto) 0.00 Sodium Potassium Chloride Carbon Dioxide Anion Gap BUN Creatinine Est GFR ( Amer) Est GFR (Non-Af Amer) POC Glucose (mg/dL) 238 H Random Glucose Calcium Blood Type O NEGATIVE Antibody Screen Negative Crossmatch See Detail BBK History Checked Patient has bt 11/29/17 12:29 WBC RBC Hgb Hct MCV MCH MCHC RDW Plt Count MPV Gran % Lymph % (Auto) [place] % (Auto) Eos % (Auto) Baso % (Auto) Gran # Lymph # (Auto) [place] # (Auto) Eos # (Auto) Baso # (Auto) Sodium 135 Potassium 4.5 Chloride 97 L Carbon Dioxide 27 Anion Gap 16 BUN 62 H Creatinine 3.4 H Est GFR ( Amer) 22 Est GFR (Non-Af Amer) 18 POC Glucose (mg/dL) Random Glucose 238 H Calcium 8.7 Blood Type Antibody Screen Crossmatch BBK History Checked Assessment & Plan - Assessment and Plan (Free Text) Assessment: 72 Mongolian speaking M with past medical history of Lung ca( radiation), CKD, AAA (stent) severe cariomyopathy with EF 10-15%, CVA, paroxysmal atrial fibrillation on coumadin, IDDM, COPD, CAD s/p 3 stents,SVT, AICD, partial colectomy and colosotomy, milrinone drip 232 mg/290 D5W infusing from home, ESBL E. coli bactermiea, and endocarditis presented to [facility] [place] [facility] with complaints of abdominal pain and blood noted in his colostomy.Anemia of 7.5 on admission, 8.5 s/p 2 u pRBCs, new lesion found in rt lobe of liver likely metastatic, hx of lung ca. As per Nephro upon last admission anemia 2/2 CKD, was receiving Iron and Aranesp previously, however will investigate. Has right cw port, colostomy draining brown stool at this time.
--- NOTE | 2017-11-29 14:08 | CT ---
PROCEDURE: CT Chest without contrast HISTORY: r/o PNA COMPARISON: 08/08/2017 TECHNIQUE: Contiguous axial images were obtained through the chest without intravenous contrast enhancement. Sagittal and coronal reconstructions were performed. Radiation dose (DLP): 358 mGy-cm. This CT exam was performed using one or more of the following dose reduction techniques: Automated exposure control, adjustment of the mA and/or kV according to patient size, and/or use of iterative reconstruction technique. FINDINGS: LUNGS: Bullous changes in the right upper lobe. Left upper lobe infiltrate with consolidation and air bronchograms. Small left pleural effusion decreased since prior exam. MEDIASTINUM: Unremarkable thoracic aorta. No aneurysm. Cardiomegaly. Pacemaker and leads in place. Main pulmonary artery unremarkable. No vascular congestion. No lymphadenopathy. PLEURA: No right pleural effusion. BONES: No fracture. No destructive lesion. UPPER ABDOMEN: Grossly unremarkable. OTHER FINDINGS: None. IMPRESSION: Bullous changes in the right upper lobe. Left upper lobe infiltrate with consolidation and air bronchograms. Small left pleural effusion decreased since prior exam.
--- NOTE | 2017-11-29 17:10 | HP ---
DATE OF SERVICE: 11/28/2017 HISTORY OF PRESENT ILLNESS: The patient came into the hospital with abdominal pain and vomiting coffee ground and with nausea and there is a coffee ground material coming from the colostomy tube. The patient was seen in the emergency room. He is well known to the ER department because of recurrent admission due to his comorbid illnesses. He is in no respiratory distress. No chest pain. The patient found to have anemia and necessity of blood transfusion. He also had a CT was positive for liver mets. The patient does complain of nausea. He seems weak and seems more sweaty than his usual. PAST MEDICAL HISTORY: As I mentioned before, 1. He does have colostomy bag or ileostomy bag due to bowel resection obstructions. 2. Chronic ischemic cardiomyopathy with ejection fraction of 15 to 20% on IV milrinone. 3. Insulin dependant diabetes. 4. CVA with left-sided weakness. The patient is bedridden. 5. Chronic anemia. 6. Chronic renal failure, creatinine runs between 2 to 3. Sometimes go up to 4 and come back, chronic renal, stage IV. 7. Hypertension. 8. Chronic atrial fibrillation on Coumadin, INR in the 1.8 to 2, however, withhold recently. 9. Anemia, iron-deficiency. ALLERGIES: NO KNOWN ALLERGIES. MEDICATIONS TAKEN AT HOME: He has taken milrinone IV infusions, Zaroxolyn 2.5 mg p.o. daily, Levemir 30 units b.i.d., Proscar 5 mg once a day, Flomax 0.4 mg once a day, Tylenol 1 tab to 2 tabs t.i.d., Protonix 40 mg once a day, multivitamins, mag oxide 400 b.i.d., Lasix 20 p.o. daily, Feosol 325 mg p.o. b.i.d., Pepcid 20 mg p.o. at bedtime, Coreg 25 mg p.o. b.i.d., PhosLo 667 mg p.o. with meals 3 times a day, Lipitor 10 mg p.o. daily, aspirin 81 mg daily, amiodarone 200 mg daily, also he is taking Coumadin 1 to 1.5 mg daily. REVIEW OF SYSTEMS: As in the present illness, the patient is bedridden. He has intermittent change in mental status to lethargy and sleepiness, generally weak, bedridden. No walking. Sometimes get short of breath. Sometimes get agitated. He has intermittently catheterization with Grimaldo catheter. He also gets respiratory distress on and off. PHYSICAL EXAMINATION: GENERAL: On emergency room, the patient is having hypothermic blanket because his temperature is low and no respiratory distress, getting IV blood transfusion. VITAL SIGNS: His temperature is 97.4, heart rate 72, blood pressure 138/83, respirations 18, sat 99% on 2 L of nasal cannula. HEAD AND NECK: Normal. No JVD. No thyromegaly. CHEST: Clear bilaterally. CARDIAC: First and second sound are regular. Systolic murmur with a pacemaker on the chest wall. ABDOMEN: There is . There is a colostomy bag. Bowel sounds are intact. EXTREMITIES: Mild edema. NEUROLOGIC: Normal. LABORATORY DATA: Shows white count 7.2, hemoglobin 7.5, hematocrit 23.3, platelets 419. Chemistries: Sodium 133, potassium 4.6, chloride 92, bicarb 28, BUN 74, creatinine 3.5, blood sugar 243. Liver function test is normal except alkaline phosphatase 161, lactate dehydrogenase 543. CPK 23, troponin 0.02 and proBNP 6330. Total protein 7.4, albumin 3.6 and globulin 3.8, albumin-globulin ratio is 1. Lipase is high 392. Radiological studies done including chest x-ray shows mild cardiomegaly. There is a focal area of consolidations in the left mid lung suspicious for pneumonia. The patient does have a history of lung CA. The patient had a CT abdomen and pelvis with no IV contrast, it shows the following: There is large infrarenal abdominal aortic aneurysm measuring 7.6 cm and there is aortic stent graft in it. There are some pleural calcification within the mural thrombus, findings are unchanged from before. There is also two separate hypodense lesion in the right lobe of the liver measuring 2.6 and 2.4 cm in diameter consistent with metastatic disease. The patient has a history of lung CA, that has been treated with radiation. Bones, no findings. IMPRESSION AND PLAN: 1. Hypodense lesion in the liver consistent with metastasis, no bowel obstruction. 2. Anemia, severe. We will keep the patient overnight for blood transfusions. 3. Hypodense lesion in the liver consistent with metastatic liver disease, poor prognosis. We will get an MRI of the liver. Oncology consult. Also GI consult with Dr. Ordonez. Continue blood transfusion. Repeat labs in the morning. Resume all other medications. Monitor his sugar and monitor his temperature. Currently, he is on hypothermic blanket and will continue to monitor his condition. The patient has poor prognosis. He has multiple comorbid illnesses. We will get a Renal consult to follow up on his kidney. Dexter Palacios MD
[2017-11-29] MEDS: cefTRIAXone 1 gm 1 GM/100 ML BAG IVPB SCH (17:49)
--- NOTE | 2017-11-29 19:57 | CON ---
DATE: 11/29/2017 PATIENT ADMITTED FOR: Dexter Palacios MD REFERRING MD: Dexter Palacios MD REASON FOR CONSULTATION: Evaluation of a patient known to us who presents with an elevated BUN and creatinine in the setting of severe cardiomyopathy who comes in complaining of abdominal pain around his colostomy site with bleeding around the colostomy site. HISTORY OF PRESENT ILLNESS: Patient is a 72-year-old Stateless male with a history of chronic kidney disease, stage IV; history of ASHD, status post CABG, status post PTCA and stents; history of peripheral vascular disease; history of an aortic abdominal aneurysm status post repair; history of cardiomyopathy with ejection fraction of 15%; history of recent E. coli and Klebsiella urinary tract infections; history of recent pneumonia; history of NIDDM; hypertension; secondary hyperparathyroidism; past history of metabolic acidosis; history of anemia secondary to chronic kidney disease; history of BPH; history of colostomy complicating a partial colectomy for bowel obstruction; history of hyperlipidemia; dementia; history of lung cancer treated with radiation therapy. Patient presents to the emergency room complaining of abdominal pain and bleeding around the colostomy site. In the emergency room, patient is noted to have a BUN of 74 with a creatinine of 3.5, well within his baseline range. His CBC was 7.5 and patient was transfused 2 units of packed red blood cells. Hemoglobin today is 8.5. We are asked to evaluate patient because of his elevated BUN and creatinine. PAST MEDICAL HISTORY: Significant for acute renal failure superimposed on chronic kidney disease, stage IV, ASHD status post CABG, status post PTCA and stent; history of her aortic abdominal aneurysm with repair; cardiomyopathy, on outpatient Primacor therapy, ejection fraction of 15%, history of MR/TR/AI; history of permanent pacemaker with AICD; history of recurrent urinary tract infections and pneumonia; NIDDM; hypertension; pulmonary hypertension; secondary hyperparathyroidism; history of anemia secondary to chronic kidney disease; history of BPH; hyperlipidemia; dementia; status post bowel obstruction surgery with colostomy. MEDICATIONS AT HOME: Include that of Primacor, Zaroxolyn, Levemir, Proscar, Flomax, sodium bicarbonate tablets, Protonix, multivitamins, mag oxide, p.o. Lasix, Feosol, Pepcid, Coreg, PhosLo, Lipitor, Ecotrin, and amiodarone. ALLERGIES: PATIENT HAS NO KNOWN ALLERGIES TO MEDICATIONS. CURRENT MEDICATIONS: In the hospital include that of amiodarone, Coreg, Feosol, Flomax, insulin, IV Lasix, Levemir, Lipitor, mag oxide, oxycodone, Pepcid, PhosLo, Primacor drip, Proscar, Protonix, Rocephin, sodium bicarbonate tablets, Thera-Tabs, and Zaroxolyn. SOCIAL HISTORY: No history of cigarette smoking. No history of alcohol use. FAMILY HISTORY: Unchanged from past encounter and is noncontributory. REVIEW OF SYSTEMS: Difficult to obtain because of language barrier. His denies any issues other than that is what is noted above. [employer] plus systems were reviewed with her. PHYSICAL EXAMINATION: GENERAL: Patient is currently seen on telemetry. He is lying comfortable supine in bed. IV Primacor is infusing through his right chest wall port. VITAL SIGNS: Blood pressure is 110/67, respiratory rate is 19, pulse is 64, temperature is 97. HEENT: Exam shows him to be normocephalic, atraumatic. Conjunctivae are pale. Sclerae are nonicteric. Pupils appeared to be equal and reactive to light and accommodation. Extraocular muscles are intact. Posterior pharynx appears normal. NECK: Supple. No neck vein distention. No thyromegaly. No lymphadenopathy. No bruits. CHEST: Slight decreased breath sounds at the bases. No rales, rhonchi, or wheezing. CARDIOVASCULAR: Shows a regular rate and rhythm with MR/TR/AI. Positive AICD, positive permanent pacemaker. Positive port, right chest wall. No S3. No S4. No rub. ABDOMEN: Soft. Bowel sounds normal. Positive colostomy, right upper quadrant. No active bleeding. No apparent tenderness on palpation. BACK: No CVAT. No spinal tenderness. EXTREMITIES: Showed no lower extremity edema. No cyanosis or clubbing. NEUROLOGICAL: Shows him to be alert and responsive to verbal stimulation. No asterixis. IMAGING STUDIES: Admitting chest x-ray shows focal areas of consolidation in the left mid lung suspicious for possible pneumonia. Chest CT scan shows left upper lobe infiltrate and a small left pleural effusion. Abdominal and pelvic CT scan shows what appears to be new lesions in the right lobe of the liver, thought to be consistent with possible metastatic disease. LABORATORY DATA: CBC: White blood cell count 7.7; hemoglobin was 7.5 on admission, plus 2 units of blood, it is 8.5; platelet count 327,000. Coags: PT 15.7 with an INR of 1.36. Admitting blood gas showed a pO2 of 46, pH of 7.39, pCO2 of 51 on a venous blood gas. Chemistries showed normal electrolytes, BUN is 62 with a creatinine of 3.4. CO2 level is 27. Calcium is 8.7. Liver enzymes are normal with the exception of an elevated alkaline phosphatase of 161. BNP is elevated at 6330. Albumin is 3.6. Urine showed 2+ protein, positive white blood cells, positive red blood cells, positive bacteria. Microbiology: Urine clean catch, positive gram-negative avis. Blood cultures are negative at 24 hours. Blood bank: Patient received 2 units of packed red blood cells. ASSESSMENT: 1. Chronic kidney disease, stage IV, appears to be stable. In all likelihood, if patient would be diuresed, his BUN and creatinine would rise. This has been a familiar pattern for him. Once the diuretic dose is decreased, his BUN usually falls back to baseline levels. Creatinine is stable in the 3 to 3.5 range. Patient will continue IV Primacor to improve cardiac output and increase renal perfusion. He should avoid all nephrotoxic agents. Of note, it appears that patient once again has recurrent urinary tract infection; cultures are pending. 2. Possible urinary tract infection. Patient is on empiric antibiotic therapy. In the past, patient had a urinary tract infection from Escherichia coli and Klebsiella. 3. Possible left-sided pneumonia. Again, patient is on empiric antibiotic therapy. 4. History of severe cardiomyopathy. Atherosclerotic heart disease status post automatic implantable cardioverter-defibrillator and permanent pacemaker, status post coronary artery bypass graft, status post percutaneous transluminal coronary angioplasty and stents. Ejection fraction is 15% with valvular heart disease, mitral regurgitation/tricuspid regurgitation/aortic insufficiency. Patient will continue IV Primacor and low-dose diuretic therapy. 5. History of noninsulin-dependent diabetes mellitus. Patient is currently on insulin. 6. History of hypertension. Blood pressure is controlled on present medical therapy. 7. Past history of secondary hyperparathyroidism. Calcium level was acceptable at 8.7. Phosphorus level is pending. Patient should continue a renal diet and if necessary binder therapy. 8. History of anemia. This was worsened by bleeding around the colostomy site. Patient received 2 units of packed red blood cells. Patient will continue Aranesp and we will recheck his iron levels and support him with iron as necessary. Of note, patient did receive 2 units of packed red blood cells, so the iron levels might be erroneously high. 9. History of benign prostatic hypertrophy, currently stable on medical therapy. 10. History of partial bowel resection with colostomy, stable with the exception of the episode of abdominal pain and bleeding around the colostomy site. 11. History of hyperlipidemia, currently stable on diet and statin therapy. PLAN: 1. Discussed with patient's in detail. I have encouraged her about the fact that his creatinine is at baseline range. I did explain to her he might have a slight elevation of BUN, perhaps from the GI bleeding, if indeed there was some. 2. Continue to monitor labs on a daily basis. 3. Continue Primacor drip. 4. Continue empiric antibiotic therapy, pending cultures. In all likelihood, IV antibiotics will likely need to be adjusted. 5. No plans for any dialytic therapy as discussed with multiple times in the past. 6. Follow up labs and intake and output on a daily basis. 7. Limit renal diagnostics. Thank you for letting me partake and share in the care of your patient. Mio Stoddard MD
[2017-11-30] MEDS ORDERED: Dextrose 50% SYRINGE Inj (50 ml) ONE ×2 (00:29→08:22)
--- NOTE | 2017-11-30 06:38 | CON ---
REASON FOR CONSULTATION: Cardiac evaluation, history of CHF on home Primacor, admitted with GI bleed, bleeding with colostomy, severely decreased hemoglobin. BRIEF CLINICAL HISTORY: A 72-year-old male with past medical history significant for ischemic cardiomyopathy, decreased LV function, ejection fraction 15%, paroxysmal atrial fibrillation, CAD status post stent in LAD, ejection fraction 15%, AAA, endovascular stent, lung CA status post radiation, colostomy, secondary to diverticular colonic disease, who was on Coumadin for paroxysmal atrial fibrillation, also noted blood in the colostomy bag brought here. Admitting hemoglobin found to be 7.5 and the patient denies any chest pain, shortness of breath or any palpitation. Cardiac consult was called. Followup underlying coronary artery disease and cardiomyopathy and home Primacor. The patient denies any chest pain, shortness of breath or any palpitation. 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 Fransico Cabral 3 years ago. PAST SURGICAL HISTORY: Significant for colostomy, secondary to diverticular colonic disease, history of endovascular repair for AAA, history of PTCA 3 years ago, history of AICD placement. SOCIAL HISTORY: Denies any history cigarette smoke, Denies any history alcohol abuse. CURRENT MEDICATIONS: The patient is taking milrinone at home, Zaroxolyn 2.5 mg daily, insulin, Flomax, sodium bicarb tablet, Lasix 20 mg daily, mag ox, Pepcid, carvedilol 25 b.i.d., PhosLo, atorvastatin, aspirin and amiodarone 200 mg daily. REVIEW OF SYSTEMS: As per HPI. PHYSICAL EXAMINATION: VITAL SIGNS: Temperature afebrile, heart rate 68, blood pressure 110/60. HEENT: PERRLA, intact. NECK: Supple. No carotid bruit or thyromegaly. CHEST: Clear to auscultation. HEART: S1 and S2, regular. ABDOMEN: Soft. EXTREMITIES: Clubbing and cyanosis negative. LABORATORY DATA: WBC , hemoglobin 7.9, hematocrit 23.2, platelet count 419. Chemistry shows sodium 130, potassium 4, chloride 92, carbon dioxide 28, anion gap of 17, BUN 74, creatinine 3.5. BNP 6330. IMPRESSION: Acute gastrointestinal bleed, severe anemia, history of coronary artery disease status post stent in the in left anterior descending and diagonal by Dr. Fransico Cabral, ischemic cardiomyopathy, ejection fraction of 15% on home Primacor, status post automated implantable cardioverter defibrillator, mitral regurgitation, tricuspid regurgitation, history of paroxysmal atrial fibrillation on anticoagulation, chronic renal insufficiency, acute kidney injury on choric renal insufficiency, coronary artery disease as above history, history of abdominal aortic aneurysm, endovascular stent, history of cerebrovascular accident, history of paroxysmal atrial fibrillation, history of diverticular colonic disease, status post colostomy. RECOMMENDATION: Resume baseline medication, hold Coumadin for now since the patient is bleeding, consider packed RBC transfusion, monitor H and H closely, discussed with the patient's . We will follow with you. We will repeat hemoglobin count; if hemoglobin count drops below 7, consider packed RBC transfusion. We will follow with you. Today's lab is pending. Thank you Dr. Palacios for providing us the opportunity in taking care of the patient, [place]. Arabella Mathews MD
[2017-11-30 07:54] LABS: BASO # 0.01 K/mm3 (0.0-2.0); BASO % 0.1 % (0.0-3.0); EOS % 0.2 % (1.5-5.0); GRAN # 8.32 (1.4-6.5); GRAN % 81.6 % (50.0-68.0); HEMOGLOBIN 9.5 g/dL (14.0-18.0); LYMPH % 9.6 % (22.0-35.0); MEAN CELL VOLUME 79.7 fl (80.0-105.0); MEAN CORPUSCULAR HEMOGLOBIN 26.5 pg (25.0-35.0); MEAN CORPUSCULAR HGB CONC 33.2 g/dl (31.0-37.0); MEAN PLATELET VOLUME 9.1 fl (7.0-11.0); MONO # 0.9 (0.1-0.6); MONO % 8.5 % (1.0-6.0); RBC 3.59 10^6/uL (3.5-6.1); RED CELL DISTRIBUTION WIDTH 17.3 % (11.5-14.5); WHITE BLOOD COUNT 10.2 10^3/ul (4.5-11.0)
[2017-11-30 08:07] LABS: IRON 22 ug/dL (45-180)
[2017-11-30 08:16] LABS: % IRON SATURATION 9 % (20-55); TOTAL IRON BINDING CAPACITY 235 ug/dL (261-462)
[2017-11-30] MEDS ORDERED: Dextrose 50% SYRINGE Inj (50 ml) IVP ONE (08:18)
[2017-11-30 08:19] LABS: ALB/GLOB RATIO 0.9 (1.1-1.8); ALBUMIN 3.5 g/dL (3.0-4.8); CALCIUM 9.2 mg/dL (8.4-10.5)
[2017-11-30] MEDS ORDERED: Darbepoetin Alfa 60 mcg/ml Inj SC ONE (10:00)
[2017-11-30] MEDS ORDERED: Meropenem 500 MG in Sodium Chloride 0.9% 50 ML IVPB SCH (10:15)
--- NOTE | 2017-11-30 11:49 | PN ---
DATE: 11/30/2017 REASON FOR CONSULTATION AND FOLLOWUP: Cardiac evaluation; history of CHF, on home Primacor, admitted with GI bleeding with enterocolostomy bag, severely decreased hemoglobin. SUBJECTIVE: Patient denies any chest pain, shortness of breath or any palpitations. OBJECTIVE: GENERAL: Not in apparent distress. VITAL SIGNS: As follows. Temperature afebrile, heart rate 75, blood pressure 116/71. HEENT: PERRLA, intact. NECK: Supple. No carotid bruits or thyromegaly. CHEST: Clear to auscultation. HEART: S1 and S2. Regular. ABDOMEN: Soft. EXTREMITIES: Clubbing and cyanosis negative. LABORATORY DATA: Blood workup as follows: WBC ____, hemoglobin 9.5, hematocrit 28.6, platelet count 441. Chemistry shows sodium 130, potassium 4, chloride 90, carbon dioxide 28, anion gap 16, BUN 15, and creatinine 3.4. Blood sugar in the morning was 35. IMPRESSION: Hypoglycemia; gastrointestinal bleed; status post red blood cell transfusion, hemoglobin of 9.5; cardiomyopathy, ischemic status post percutaneous transluminal coronary angioplasty baseline; chronic renal insufficiency, cardiomyopathy, status post aortic abdominal aneurysm repair, history of lung cancer, status post radiation, status post automatic implantable cardioverter-defibrillator. RECOMMENDATIONS: Continue Primacor. Hold Coumadin because of the GI bleed. INR is 1.36. History of paroxysmal atrial fibrillation, continue amiodarone. Monitor H and H. If H and H remains stable, we can reconsider starting low dose of Coumadin. Discontinue Telemetry. We will follow with you. Resume baseline medications including amiodarone, carvedilol, iron and multivitamin, gentle diuretics and atorvastatin. Thank you Dr. Palacios for providing me the opportunity in taking care of the patient. Arabella Mathews MD
[2017-11-30] MEDS: Insulin Reg-LOW-Coverage SC SCH ×5 (12:01→21:00)
[2017-11-30] MEDS: Pantoprazole 40 mg EC Tab PO SCH (12:49)
[2017-11-30] MEDS: metOLazone 2.5 MG TAB PO SCH (12:50)
[2017-11-30] MEDS: Iron Complex Polysacch 150mg Cap PO SCH (12:50)
[2017-11-30] MEDS: Magnesium Oxide 400 mg Tab UD PO SCH ×2 (12:51→17:25)
[2017-11-30] MEDS: Multivitamin Therapeutic Tab PO SCH (12:53)
--- NOTE | 2017-11-30 13:05 | CP.PCM.PN ---
Subjective - Date & Time of Evaluation Date of Evaluation: 11/30/17 Time of Evaluation: 09:30 - Subjective Subjective: Hematology/Oncology Progress Note Patient was seen and examined at bedside. Patient with family at bedside available. Patient in bed and eating. Colostomy in place, ken in place. Patient has mild complaints of left flank/back pain. Patient denied fever, chills, shortness of breath, chest pains, nausea, vomiting. Objective - Vital Signs/Intake and Output Vital Signs (last 24 hours): Temp Pulse Resp BP Pulse Ox 97.1 F L 77 18 137/83 96 11/30/17 12:00 11/30/17 12:51 11/30/17 12:00 11/30/17 12:51 11/29/17 18:00 Intake and Output: 11/30/17 11/30/17 06:59 18:59 Intake Total 0 Balance 0 - Medications Medications: Current Medications Amiodarone HCl (Cordarone) 200 mg PO DAILY [facility] Last Admin: 11/30/17 12:49 Dose: 200 mg Atorvastatin Calcium (Lipitor) 10 mg PO DAILY [facility] Last Admin: 11/30/17 12:50 Dose: 10 mg Calcium Acetate (Phoslo) 667 mg PO WM [facility] Last Admin: 11/30/17 12:53 Dose: Not Given Carvedilol (Coreg) 25 mg PO BID [facility] Last Admin: 11/30/17 12:51 Dose: 25 mg Famotidine (Pepcid) 20 mg PO HS [facility] Last Admin: 11/29/17 21:29 Dose: 20 mg Ferrous Sulfate (Feosol) 324 mg PO BID [facility] Last Admin: 11/30/17 12:54 Dose: 324 mg Finasteride (Proscar) 5 mg PO DAILY [facility] Last Admin: 11/30/17 12:50 Dose: 5 mg Furosemide (Lasix) 20 mg IVP DAILY [facility] Last Admin: 11/30/17 12:49 Dose: 20 mg Milrinone Lactate/Dextrose (Primacor 20mg/100ml D5w) 100 mls @ 2.381 mls/hr IV .Q24H PRN; Protocol; 0.125 MCG/KG/MIN PRN Reason: TITRATE PER MD ORDER Last Admin: 11/28/17 21:06 Dose: 0.125 mcg/kg/min, 2.381 mls/hr Doxycycline Hyclate 100 mg/ (Sodium Chloride) 100 mls @ 100 mls/hr IVPB Q12 [facility] PRN Reason: Protocol Insulin Detemir (Levemir) 15 unit SC BID [facility] Insulin Human Regular (Humulin R Low) 0 units SC ACHS [facility] PRN Reason: Protocol Last Admin: 11/30/17 12:52 Dose: 2 units Magnesium Oxide (Mag-Ox) 400 mg PO BID [facility] Last Admin: 11/30/17 12:51 Dose: 400 mg Metolazone (Zaroxolyn) 2.5 mg PO DAILY [facility] Last Admin: 11/30/17 12:50 Dose: 2.5 mg Multivitamins (Thera Tab) 1 tab PO 0800 [facility] Last Admin: 11/30/17 12:53 Dose: 1 tab Oxycodone HCl (Oxycodone Immediate Release Tab) 5 mg PO Q6H PRN PRN Reason: Pain, severe (8-10) Stop: 12/04/17 23:59 Last Admin: 11/29/17 17:49 Dose: 5 mg Pantoprazole Sodium (Protonix Ec Tab) 40 mg PO DAILY [facility] Last Admin: 11/30/17 12:49 Dose: 40 mg Polysaccharide Iron Complex (Ferrex-150) 150 mg PO DAILY [facility] Last Admin: 11/30/17 12:50 Dose: 150 mg Sodium Bicarbonate (Sodium Bicarbonate Tab) 650 mg PO TID [facility] Last Admin: 11/29/17 17:44 Dose: 650 mg Tamsulosin HCl (Flomax) 0.4 mg PO DAILY [facility] Last Admin: 11/30/17 12:51 Dose: 0.4 mg - Labs Labs: 11/30/17 06:00 11/30/17 06:00 PT 15.7 SECONDS (9.4-12.5) H 11/28/17 11:59 INR 1.36 (0.93-1.08) H 11/28/17 11:59 - Constitutional Appears: Chronically Ill - Head Exam Head Exam: ATRAUMATIC, NORMAL INSPECTION, NORMOCEPHALIC - Eye Exam Eye Exam: EOMI, Normal appearance, PERRL Pupil Exam: NORMAL ACCOMODATION, PERRL - ENT Exam ENT Exam: Mucous Membranes Moist, Normal Exam - Respiratory Exam Respiratory Exam: Decreased Breath Sounds, NORMAL BREATHING PATTERN - Cardiovascular Exam Cardiovascular Exam: REGULAR RHYTHM, +S1, +S2. absent: Murmur - GI/Abdominal Exam GI & Abdominal Exam: Soft (+colostomy), Tenderness (Left quadrant), Normal Bowel Sounds - Neurological Exam Neurological Exam: Alert, Awake, CN II-XII Intact, Oriented x3 - Psychiatric Exam Psychiatric exam: Normal Affect, Normal Mood - Skin Skin Exam: Dry, Intact, Normal Color, Warm Assessment and Plan - Assessment and Plan (Free Text) Assessment: 72 Greek speaking M with past medical history of Lung ca( radiation), CKD, AAA (stent) severe cariomyopathy with EF 10-15%, CVA, paroxysmal atrial fibrillation on coumadin, IDDM, COPD, CAD s/p 3 stents,SVT, AICD, partial colectomy and colosotomy, milrinone drip 232 mg/290 D5W infusing from home, ESBL E. coli bactermiea, and endocarditis [place] [facility] [place] with complaints of abdominal pain and blood noted in his colostomy.Anemia of 7.5 on admission, 8.5 s/p 2 u pRBCs, now 9.5. Comadin on hold. Left lobar pna on imaging, n empiric abx.There is a new lesion found in rt lobe of liver likely metastatic, hx of lung ca, will discuss further assessment with MRI with PMD. Patient has poor performance status. Dr. Arlyn Santiago following. Will obtain palliative care consult with Rosario moss.
[2017-11-30] MEDS: cefTRIAXone 1 gm 1 GM/100 ML BAG IVPB SCH (14:17)
--- NOTE | 2017-11-30 15:06 | PN ---
DATE: 11/29/2017 SUBJECTIVE: The patient is comfortable. No respiratory distress. No chest pain. His vitals stable. He received blood transfusions, looks better and afebrile. PHYSICAL EXAMINATION: VITAL SIGNS: Temperature 98, heart rate 75, blood pressure 116/71, respirations 20, saturating 96% on room air. HEAD AND NECK: Normal. No JVD. No thyromegaly. CHEST: Clear. Good air entry. CARDIAC: First sound and second sound normal. ABDOMEN: Soft, colostomy bag, but nontender. EXTREMITIES: There is trace edema of both the legs bilaterally. NEUROLOGIC: Both lower extremities are extremely weak. He does note 0/5 power with flexors. He has left-sided upper arm weakness of 4/5. LABORATORY DATA: His white count is 7.7, hemoglobin 8.5, hematocrit is 327. Chemistry mercedes, the patient had sodium 135, potassium 4.5, chloride 97, bicarb 27, BUN 62, creatinine 3.4. Blood sugar is 238. His calcium is 8.7. The patient's procalcitonin is low of 0.17. IMPRESSION AND PLAN: 1. Severe anemia. He will get transfusion of 2 units packed red blood cells. 2. Community-acquired pneumonia, left upper lobe pneumonia. We will continue Rocephin. We may change it to meropenem plus doxycycline. We will get an ID consult see the patient. The patient also had a history of lung cancer. 3. Liver metastasis. We will get oncology to evaluate that and pain management. The patient comfortable. 4. Chronic renal failure, stable. Renal consult obtained. We will continue current management. 5. The patient has insulin-dependent diabetes. Continue his insulin coverage plus his Levemir twice a day. Monitor blood sugar. Appetite seems fair. 6. Ischemic cardiomyopathy, chronic atrial fibrillation. Because of bleeding and low hemoglobin, we will hold off any antiplatelet and Coumadin at this time. We will continue current management. The patient has a poor prognosis. Life expectancy 6 months or less. Discussed this with family, and daughter on admission. Continue current therapy. We will continue patient comfort care at this time. Dexter Palacios MD
[2017-12-01] MEDS: Insulin Reg-LOW-Coverage SC SCH ×4 (08:04→22:15)
--- NOTE | 2017-12-01 08:48 | PN ---
DATE: 11/30/2017 SUBJECTIVE: The patient is seen lying in bed. He is awake, he is alert, he is comfortable. PHYSICAL EXAMINATION: GENERAL: Elderly male lying in bed. VITAL SIGNS: Blood pressure 137/83, heart rate 77, respiratory rate 18, temperature 97.1. HEENT: Normocephalic, atraumatic, positive pallor. NECK: Supple, no JVD. LUNGS: Bilateral equal air entry, equal expansion, no rales. CARDIAC: S1 and S2, regular rate and rhythm, no murmur, no rub. ABDOMEN: Soft, nondistended, nontender, bowel sounds present. EXTREMITIES: No lower extremity edema. INTAKE AND OUTPUT: 1411/not charted. LABORATORY DATA: WBC 10, hemoglobin 9.5, hematocrit 28.6, platelets 441. Sodium 138, potassium 4, chloride 98, CO2 of 28, BUN 58, creatinine 2.4, glucose 36, calcium 9.2, phosphorus 4.4, magnesium 2. Iron saturation 9, iron 22, ferritin 148. AST 35, ALT 27, albumin 3.5. The patient received [address] of the chest, bullous changes right upper lobe, left upper lobe infiltrate with consolidation, small left pleural effusion. CURRENT MEDICATIONS: Amiodarone 200 mg daily, Coreg 25 b.i.d., doxycycline 100 every 12 hours,iron 150, Flomax 0.4, insulin, Lasix 20 IV daily, Levemir, Lipitor, mag oxide, Pepcid, PhosLo, milrinone, Proscar, Protonix, sodium bicarbonate 650 t.i.d., and Zaroxolyn 2.5 daily. ASSESSMENT: 1. Severe anemia, admitted with blood in the colostomy, low iron stores. 2. Stable chronic kidney disease stage 4. 3. Rex-[id number] diabetes mellitus. 4. Severe congestive heart failure, cardiomyopathy, decreased ejection fraction. 5. History of lung cancer with liver metastasis. 6. Coronary artery disease, percutaneous transluminal coronary angioplasty and stents. 7. Secondary hyperparathyroidism. 8. History of partial bowel resection/colostomy. PLAN: 1. Since iron stores are low, will give him Venofer while he is in the hospital. 2. Change sodium bicarbonate to 650 mg once a day, since CO2 is 28. 3. Check A1c since the patient was hypoglycemic. 4. Continue management of cardiomyopathy including milrinone. 5. Monitor Kaylen Crump MD [facility] # [id number]
--- NOTE | 2017-12-01 08:54 | CP.PCM.PN ---
Subjective - Date & Time of Evaluation Date of Evaluation: 12/01/17 Time of Evaluation: 06:05 - Subjective Subjective: Lying in bed, no distress,denies chest pain, denies shortness of breath Reason for consultation and follow up: Cardiac evaluation, severe cardiomyopathy LVEF 10-15% on Primacor at home, CVA, Atrial fibrillation on coumadin,IDDM, COPD, coronary artery disease with stents Seen and examined by me and Dr. Mathews Objective - Vital Signs/Intake and Output Vital Signs (last 24 hours): Temp Pulse Resp BP Pulse Ox 98 F 72 18 122/67 97 12/01/17 06:00 12/01/17 06:00 12/01/17 06:00 12/01/17 06:00 12/01/17 06:00 Intake and Output: 12/01/17 12/01/17 06:59 18:59 Intake Total 348 Balance 348 - Medications Medications: Current Medications Amiodarone HCl (Cordarone) 200 mg PO DAILY [facility] Last Admin: 11/30/17 12:49 Dose: 200 mg Atorvastatin Calcium (Lipitor) 10 mg PO DAILY [facility] Last Admin: 11/30/17 12:50 Dose: 10 mg Calcium Acetate (Phoslo) 667 mg PO WM [facility] Last Admin: 11/30/17 17:25 Dose: 667 mg Carvedilol (Coreg) 25 mg PO BID [facility] Last Admin: 11/30/17 17:25 Dose: 25 mg Famotidine (Pepcid) 20 mg PO HS [facility] Last Admin: 11/30/17 21:18 Dose: 20 mg Finasteride (Proscar) 5 mg PO DAILY [facility] Last Admin: 11/30/17 12:50 Dose: 5 mg Furosemide (Lasix) 20 mg IVP DAILY [facility] Last Admin: 11/30/17 12:49 Dose: 20 mg Milrinone Lactate/Dextrose (Primacor 20mg/100ml D5w) 100 mls @ 2.381 mls/hr IV .Q24H PRN; Protocol; 0.125 MCG/KG/MIN PRN Reason: TITRATE PER MD ORDER Last Admin: 11/28/17 21:06 Dose: 0.125 mcg/kg/min, 2.381 mls/hr Doxycycline Hyclate 100 mg/ (Sodium Chloride) 100 mls @ 100 mls/hr IVPB Q12 [facility] PRN Reason: Protocol Last Admin: 11/30/17 22:25 Dose: 100 mls/hr Iron Sucrose 200 mg/ Sodium (Chloride) 110 mls @ 110 mls/hr IVPB DAILY [facility] Stop: 12/04/17 10:59 Meropenem 250 mg/ Sodium (Chloride) 100 mls @ 100 mls/hr IVPB Q12H [facility] PRN Reason: Protocol Stop: 12/09/17 22:46 Last Admin: 11/30/17 23:53 Dose: 100 mls/hr Insulin Detemir (Levemir) 15 unit SC BID [facility] Insulin Human Regular (Humulin R Low) 0 units SC ACHS [facility] PRN Reason: Protocol Last Admin: 12/01/17 08:04 Dose: Not Given Magnesium Oxide (Mag-Ox) 400 mg PO BID [facility] Last Admin: 11/30/17 17:25 Dose: 400 mg Metolazone (Zaroxolyn) 2.5 mg PO DAILY [facility] Last Admin: 11/30/17 12:50 Dose: 2.5 mg Multivitamins (Thera Tab) 1 tab PO 0800 [facility] Last Admin: 11/30/17 12:53 Dose: 1 tab Oxycodone HCl (Oxycodone Immediate Release Tab) 5 mg PO Q6H PRN PRN Reason: Pain, severe (8-10) Stop: 12/04/17 23:59 Last Admin: 11/29/17 17:49 Dose: 5 mg Pantoprazole Sodium (Protonix Ec Tab) 40 mg PO DAILY [facility] Last Admin: 11/30/17 12:49 Dose: 40 mg Polysaccharide Iron Complex (Ferrex-150) 150 mg PO DAILY [facility] Last Admin: 11/30/17 12:50 Dose: 150 mg Sodium Bicarbonate (Sodium Bicarbonate Tab) 650 mg PO DAILY [facility] Tamsulosin HCl (Flomax) 0.4 mg PO DAILY [facility] Last Admin: 11/30/17 12:51 Dose: 0.4 mg - Labs Labs: 11/30/17 06:00 11/30/17 06:00 PT 15.7 SECONDS (9.4-12.5) H 11/28/17 11:59 INR 1.36 (0.93-1.08) H 11/28/17 11:59 - Constitutional Appears: No Acute Distress - Head Exam Head Exam: NORMOCEPHALIC - Eye Exam Eye Exam: Normal appearance - ENT Exam ENT Exam: Mucous Membranes Moist - Respiratory Exam Respiratory Exam: Decreased Breath Sounds, Clear to Ausculation Bilateral, NORMAL BREATHING PATTERN - Cardiovascular Exam Cardiovascular Exam: +S1, +S2 Additional comments: barry cath on primacor AICD - GI/Abdominal Exam GI & Abdominal Exam: Soft, Normal Bowel Sounds Additional comments: colostomy - Exam Additional comments: [place] catheter - Extremities Exam Extremities Exam: Normal Capillary Refill - Neurological Exam Neurological Exam: Alert, Awake, Oriented x3 - Psychiatric Exam Psychiatric exam: Normal Affect, Normal Mood - Skin Skin Exam: Intact, Normal Color, Warm Assessment and Plan - Assessment and Plan (Free Text) Assessment: A 72 year old male who came in to the ER due to complaints of abdominal pain and melena in colostomy. Recently admiited 11/02 due to GI bleed.History of Lung cancer with radiation, chronic kidney disease, AAA (stent) severe cardiomyopathy with EF 10-15%, on home Milrinone, CVA, paroxysmal atrial fibrillation on coumadin, IDDM, COPD, CAD s/p 3 stents, SVT, AICD, partial colectomy and colosotomy,, ESBL E. coli bactermiea, and endocarditis, HCAP, BPH , anemia. Speaks hebrew. Plan: CT of chest showed left upper lobe infiltrate On Doxycycline and Meropenem Continue Milrinone drip Will repeat PT/INR level Will restart Coumadin for Afib Watch for further bloody stools Hemoglobin and hematocrit stable post transfusion of 2 units PRBC On Amiodarone 200 mg daily, Lipitor 10 mg daily, Coreg 25 mg BID, Lasix 20 mg daily, Milrinone drip,Zaroxylyn 2.5 mg daily, Continue current medications Continue current treatment Will follow up Plan and treatment discussed with Dr. Mathews
[2017-12-01] MEDS: Pantoprazole 40 mg EC Tab PO SCH (11:42)
[2017-12-01] MEDS: metOLazone 2.5 MG TAB PO SCH (11:43)
[2017-12-01] MEDS: Magnesium Oxide 400 mg Tab UD PO SCH ×2 (11:44→18:41)
[2017-12-01] MEDS: Multivitamin Therapeutic Tab PO SCH (11:44)
--- NOTE | 2017-12-01 13:49 | PN ---
DATE: 11/30/2017 SUBJECTIVE: The patient was seen on 11/30/2017. The patient has no new complaints. He is comfortable. No distress. No chest pain and has no fever. The patient status post blood transfusions and iron infusions. PHYSICAL EXAMINATION: VITAL SIGNS: The patient seen on 11/30/2017, his temperature 98.1, heart rate 88, blood pressure 129/85, respirations 19, sat 97% on 2 L. HEAD AND NECK: Normal. No JVD. No thyromegaly. CHEST: Clear. Good air entry. CARDIAC: First sound and second sound normal. ABDOMEN: Colostomy and nontender. EXTREMITIES: No edema. NEUROLOGIC: Normal. LABORATORY DATA: Shows white count 10.2, hemoglobin 9.5, hematocrit 28.6, platelets 441. Blood sugar is 60 and went up to 204. Hemoglobin A1c is 7.5, iron 22, total iron-binding capacity is 235 and iron saturation 9. Chest x-ray shows infiltrates consistent with possible pneumonia. The patient has a history of lung metastases. CT showed possible left lower lobe pneumonia. IMPRESSION: 1. Nosocomial pneumonia. The patient has been in and out of the hospital, so he has infiltrates; we will keep this as nosocomial associated pneumonia. We will give him meropenem plus doxycycline. Infectious Disease consultation Pulmonary consult with the patient. 2. Chronic obstructive pulmonary disease exacerbation. The patient seems stable. No distress. Continue BiPAP machine. Dr. Alva will see the patient. 3. Iron deficiency anemia, etiology possibly gastrointestinal. He did have history of bleeding in the past. The patient is off Coumadin and he seems doing well, status post 2 units of transfusions and one IV infusion of iron. 4. Lung cancer with liver metastasis, poor prognosis, less than 6 months. We will talk with the family again about palliative care, code status. still cannot make a decision as well as the patient, but the daughter knows this is bad prognosis. 5. Insulin-dependent diabetes. Continue insulin regimen as prescribed. 6. Ischemic cardiomyopathy with an ejection fraction of 15% to 20%. The patient has an ICD. 7. Abdominal aortic aneurysm; history of bowel resections; cerebrovascular accident, left sided; hypertension, hypercholesterolemia; bedridden with lower extremity weakness. PLAN: Continue current management. Continue current treatment. He also has ESBL in the urine. We will get an ID consult to evaluate for that, whether the patient should be discharged treatment for that. We will discuss this with ID. The patient is afebrile. He does not have any burning urination and seems asymptomatic from that. Continue current therapy. Dexter Palacios MD
[2017-12-01] MEDS: Iron Complex Polysacch 150mg Cap PO SCH (14:00)
--- NOTE | 2017-12-01 15:26 | CP.PCM.CON ---
History of Present Illness - History of Present Illness History of Present Illness: Palliative consult requested by Dr José Antonio Samson copied to Dr Amada Palacios Reason: Goals of care 72 year male with history of cardiomyopathy, EF 15%,DM, CKD who presented with abdominal pain and coffee ground emesis. Coffee ground material also in colostomy drainage. Work up revealed severe anemia, Hgb 7.5. CT of abdomen showing new hypodense lesions in right lobe of liver consistent with metastatic disease. CT chest revealed bullous changes in RUL, CHRISSIE infiltrate with consolidation, small left pleural effusion. PMHx: severe cardiomyopathy, EF 15%, AICD,CAD, stenst, A Fib, AAA, DM BPH, CKD, CVA, Iron deficiency anemia, ASHD,BPH, bowel obstruction s/p colostomy. Social History:Never smoker, no alcohol or drug use. , lives with spouse. The patient speaks Irish Family History: Non contributory. Advance Care Planning: The patient does not have an Advanced Directive. Review of Systems: As per HPI, altered unable to obtain complete review. Past Patient History - Infectious Disease Hx of Infectious Diseases: None - Tetanus Immunizations Tetanus Immunization: Unknown - Past Medical History & Family History Past Medical History?: Yes - Past Social History Smoking Status: Never Smoked - CARDIAC Hx Hypertension: Yes Hx Pacemaker: Yes - PULMONARY Hx Asthma: Yes Hx Chronic Obstructive Pulmonary Disease (COPD): Yes Hx Emphysema: Yes Hx Pneumonia: Yes - NEUROLOGICAL Hx Neurological Disorder: Yes HX Cerebrovascular Accident: Yes Hx Dizziness: Yes - HEENT Hx Cataracts: Yes (b/l surgery) - RENAL Hx Chronic Kidney Disease: No - ENDOCRINE/METABOLIC Hx Diabetes Mellitus Type 1: Yes Hx Diabetes Mellitus Type 2: Yes - HEMATOLOGICAL/ONCOLOGICAL Hx Anemia: Yes Hx Cancer: Yes Hx Unexplained Bleeding: Yes - INTEGUMENTARY Hx Dermatological Problems: No - MUSCULOSKELETAL/RHEUMATOLOGICAL Hx Falls: Yes Hx Unsteady Gait: Yes - GASTROINTESTINAL Hx Colostomy: Yes Hx Diverticulitis: Yes Hx Gastroesophageal Reflux: Yes - GENITOURINARY/GYNECOLOGICAL Hx Incontinence: Yes Hx Prostate Problems: Yes - PSYCHIATRIC Hx Anxiety: Yes Hx Depression: Yes Hx Substance Use: No - SURGICAL HISTORY Hx Surgeries: Yes (Prostate, Catherization) Hx Appendectomy: Yes Hx Cardiac Catheterization: Yes Hx Coronary Stent: Yes - ANESTHESIA Hx Anesthesia: Yes Meds Allergies/Adverse Reactions: Allergies Allergy/AdvReac Type Severity Reaction Status Date / Time No Known Allergies Allergy Verified 10/03/17 12:09 - Medications Medications: Current Medications Amiodarone HCl (Cordarone) 200 mg PO DAILY [facility] Last Admin: 12/01/17 11:42 Dose: 200 mg Atorvastatin Calcium (Lipitor) 10 mg PO DAILY [facility] Last Admin: 12/01/17 11:42 Dose: 10 mg Calcium Acetate (Phoslo) 667 mg PO WM [facility] Last Admin: 12/01/17 11:43 Dose: 667 mg Carvedilol (Coreg) 25 mg PO BID [facility] Last Admin: 12/01/17 11:43 Dose: 25 mg Doxycycline Hyclate (Doryx) 100 mg PO Q12 [facility] Stop: 12/05/17 10:16 Famotidine (Pepcid) 20 mg PO HS [facility] Last Admin: 11/30/17 21:18 Dose: 20 mg Finasteride (Proscar) 5 mg PO DAILY [facility] Last Admin: 11/30/17 12:50 Dose: 5 mg Furosemide (Lasix) 20 mg IVP DAILY [facility] Last Admin: 12/01/17 11:44 Dose: 20 mg Milrinone Lactate/Dextrose (Primacor 20mg/100ml D5w) 100 mls @ 2.381 mls/hr IV .Q24H PRN; Protocol; 0.125 MCG/KG/MIN PRN Reason: TITRATE PER MD ORDER Last Admin: 11/28/17 21:06 Dose: 0.125 mcg/kg/min, 2.381 mls/hr Iron Sucrose 200 mg/ Sodium (Chloride) 110 mls @ 110 mls/hr IVPB DAILY [facility] Stop: 12/04/17 10:59 Meropenem 250 mg/ Sodium (Chloride) 100 mls @ 100 mls/hr IVPB Q12H [facility] PRN Reason: Protocol Stop: 12/09/17 22:46 Last Admin: 12/01/17 11:46 Dose: 100 mls/hr Insulin Detemir (Levemir) 15 unit SC BID [facility] Insulin Human Regular (Humulin R Low) 0 units SC ACHS [facility] PRN Reason: Protocol Last Admin: 12/01/17 08:04 Dose: Not Given Magnesium Oxide (Mag-Ox) 400 mg PO BID [facility] Last Admin: 12/01/17 11:44 Dose: 400 mg Metolazone (Zaroxolyn) 2.5 mg PO DAILY [facility] Last Admin: 12/01/17 11:43 Dose: 2.5 mg Multivitamins (Thera Tab) 1 tab PO 0800 [facility] Last Admin: 12/01/17 11:44 Dose: 1 tab Oxycodone HCl (Oxycodone Immediate Release Tab) 5 mg PO Q6H PRN PRN Reason: Pain, severe (8-10) Stop: 12/04/17 23:59 Last Admin: 11/29/17 17:49 Dose: 5 mg Pantoprazole Sodium (Protonix Ec Tab) 40 mg PO DAILY [facility] Last Admin: 12/01/17 11:42 Dose: 40 mg Polysaccharide Iron Complex (Ferrex-150) 150 mg PO DAILY [facility] Last Admin: 11/30/17 12:50 Dose: 150 mg Sodium Bicarbonate (Sodium Bicarbonate Tab) 650 mg PO DAILY [facility] Last Admin: 12/01/17 11:43 Dose: 650 mg Tamsulosin HCl (Flomax) 0.4 mg PO DAILY [facility] Last Admin: 12/01/17 11:44 Dose: 0.4 mg Warfarin Sodium (Coumadin) 2 mg PO 1800 [facility] PRN Reason: Protocol Physical Exam - Constitutional Appears: Cachectic, Chronically Ill - Eye Exam Eye Exam: Normal appearance, PERRL - ENT Exam ENT Exam: Mucous Membranes Moist - Respiratory Exam Respiratory Exam: Decreased Breath Sounds, NORMAL BREATHING PATTERN - Cardiovascular Exam Cardiovascular Exam: Irregular Rhythm, +S1, +S2 - GI/Abdominal Exam GI & Abdominal Exam: Normal Bowel Sounds, Soft Additional comments: colostomy RLQ patent - Neurological Exam Neurological exam: Altered - Skin Skin Exam: Dry, Pallor - Additional Findings Additional findings: Palliative performance scale rating 30 % Results - Vital Signs Recent Vital Signs: Last Vital Signs Temp 98 F 12/01/17 06:00 Pulse 72 12/01/17 06:00 Resp 18 12/01/17 06:00 BP 127/67 12/01/17 11:44 Pulse Ox 97 12/01/17 06:00 - Labs Result Diagrams: 12/02/17 06:20 12/02/17 06:20 Labs: Laboratory Results - last 24 hr 11/30/17 11/30/17 11/30/17 06:00 06:00 11:31 POC Glucose (mg/dL) 217 H Hemoglobin A1c 7.5 H Alpha Fetoprotein 1.9 11/30/17 11/30/17 12/01/17 17:16 21:02 06:48 POC Glucose (mg/dL) 201 H 115 H 90 Hemoglobin A1c Alpha Fetoprotein 12/01/17 11:41 POC Glucose (mg/dL) 181 H Hemoglobin A1c Alpha Fetoprotein Assessment & Plan - Assessment and Plan (Free Text) Assessment: 72 year old male with history of CAD, cardiomyopathy on milrinone drip, lung cancer who is admitted with anemia, pneumonia, COPD. Found to have new metastatic lesions in right lobe of liver. Patient and family known to me from previous admissions. has been told that her husbands cancer is progressing, that it has metastasized to liver. I explained that prognosis is very poor. prefers I talk with her son. Perry(son) and I spoke by phone. I informed him of fathers medical condition and poor prognosis. Son states that he is aware of fathers medical situation. Family and I have discussed hospice in the past. I again offered option for hospice care. Hospice services explained in detail, questions answered. I also explained the burdens of resuscitation in person with medical condition such as his fathers. Encouraged to consider enacting DNR/DNI. Son states he understands and that he will discuss with his mother and sister. Son states that his mother has been very resistant to hospice in the past. Time spent in dosui with family regarding goals of care and advance care planning, 20 minutes Plan: Goals of care and advance care planning Lung cancer: follow oncology recommendations Anemia > stable:Iron replacement, Aranesp, Monitor CBC, transfuse as needed Pneumonia: On Merrem and Doxcycline, per ID rec 7 days of therapy Cardiac>stable: Milrinone drip, Amiodarone, Coreg,Lasix and Lipitor daily
--- NOTE | 2017-12-01 16:50 | CP.PCM.PN ---
Subjective - Date & Time of Evaluation Date of Evaluation: 12/01/17 Time of Evaluation: 09:00 - Subjective Subjective: Hematology Oncology Progress Note Dr. Samson Patient was seen and examined with at bedside. Patient has mild back pain, unchanged from before. Patient colostomy has been changed, no further signs of black tarry or bright red blood in bag. Patient denied fever, chills, shortness of breath chest pains, abdominal pain, nausea, vomiting, dysuria. Objective - Vital Signs/Intake and Output Vital Signs (last 24 hours): Temp Pulse Resp BP Pulse Ox 98 F 72 18 127/67 97 12/01/17 06:00 12/01/17 06:00 12/01/17 06:00 12/01/17 11:44 12/01/17 06:00 Intake and Output: 12/01/17 12/01/17 06:59 18:59 Intake Total 348 300 Output Total 350 Balance 348 -50 - Medications Medications: Current Medications Amiodarone HCl (Cordarone) 200 mg PO DAILY [facility] Last Admin: 12/01/17 11:42 Dose: 200 mg Atorvastatin Calcium (Lipitor) 10 mg PO DAILY [facility] Last Admin: 12/01/17 11:42 Dose: 10 mg Calcium Acetate (Phoslo) 667 mg PO WM [facility] Last Admin: 12/01/17 11:43 Dose: 667 mg Carvedilol (Coreg) 25 mg PO BID [facility] Last Admin: 12/01/17 11:43 Dose: 25 mg Doxycycline Hyclate (Doryx) 100 mg PO Q12 [facility] Stop: 12/05/17 10:16 Famotidine (Pepcid) 20 mg PO HS [facility] Last Admin: 11/30/17 21:18 Dose: 20 mg Finasteride (Proscar) 5 mg PO DAILY [facility] Last Admin: 11/30/17 12:50 Dose: 5 mg Furosemide (Lasix) 20 mg IVP DAILY [facility] Last Admin: 12/01/17 11:44 Dose: 20 mg Milrinone Lactate/Dextrose (Primacor 20mg/100ml D5w) 100 mls @ 2.381 mls/hr IV .Q24H PRN; Protocol; 0.125 MCG/KG/MIN PRN Reason: TITRATE PER MD ORDER Last Admin: 11/28/17 21:06 Dose: 0.125 mcg/kg/min, 2.381 mls/hr Iron Sucrose 200 mg/ Sodium (Chloride) 110 mls @ 110 mls/hr IVPB DAILY [facility] Stop: 12/04/17 10:59 Meropenem 250 mg/ Sodium (Chloride) 100 mls @ 100 mls/hr IVPB Q12H [facility] PRN Reason: Protocol Stop: 12/09/17 22:46 Last Admin: 12/01/17 11:46 Dose: 100 mls/hr Insulin Detemir (Levemir) 15 unit SC BID [facility] Insulin Human Regular (Humulin R Low) 0 units SC ACHS [facility] PRN Reason: Protocol Last Admin: 12/01/17 08:04 Dose: Not Given Magnesium Oxide (Mag-Ox) 400 mg PO BID [facility] Last Admin: 12/01/17 11:44 Dose: 400 mg Metolazone (Zaroxolyn) 2.5 mg PO DAILY [facility] Last Admin: 12/01/17 11:43 Dose: 2.5 mg Multivitamins (Thera Tab) 1 tab PO 0800 [facility] Last Admin: 12/01/17 11:44 Dose: 1 tab Oxycodone HCl (Oxycodone Immediate Release Tab) 5 mg PO Q6H PRN PRN Reason: Pain, severe (8-10) Stop: 12/04/17 23:59 Last Admin: 11/29/17 17:49 Dose: 5 mg Pantoprazole Sodium (Protonix Ec Tab) 40 mg PO DAILY [facility] Last Admin: 12/01/17 11:42 Dose: 40 mg Polysaccharide Iron Complex (Ferrex-150) 150 mg PO DAILY [facility] Last Admin: 11/30/17 12:50 Dose: 150 mg Sodium Bicarbonate (Sodium Bicarbonate Tab) 650 mg PO DAILY [facility] Last Admin: 12/01/17 11:43 Dose: 650 mg Tamsulosin HCl (Flomax) 0.4 mg PO DAILY [facility] Last Admin: 12/01/17 11:44 Dose: 0.4 mg Warfarin Sodium (Coumadin) 2 mg PO 1800 [facility] PRN Reason: Protocol - Labs Labs: 11/30/17 06:00 11/30/17 06:00 PT 15.7 SECONDS (9.4-12.5) H 11/28/17 11:59 INR 1.36 (0.93-1.08) H 11/28/17 11:59 - Constitutional Appears: No Acute Distress, Chronically Ill - Head Exam Head Exam: ATRAUMATIC, NORMAL INSPECTION, NORMOCEPHALIC - Eye Exam Eye Exam: EOMI, Normal appearance, PERRL Pupil Exam: NORMAL ACCOMODATION, PERRL - Respiratory Exam Respiratory Exam: Decreased Breath Sounds, NORMAL BREATHING PATTERN - Cardiovascular Exam Cardiovascular Exam: REGULAR RHYTHM, +S1, +S2. absent: Murmur - GI/Abdominal Exam GI & Abdominal Exam: Soft, Normal Bowel Sounds. absent: Tenderness Additional comments: + colostomy - Neurological Exam Neurological Exam: Alert, Awake, CN II-XII Intact, Oriented x3 - Psychiatric Exam Psychiatric exam: Normal Affect, Normal Mood - Skin Skin Exam: Dry, Intact, Normal Color, Warm Assessment and Plan - Assessment and Plan (Free Text) Assessment: 72 Urdu speaking M with past medical history of Lung ca( radiation), CKD, AAA (stent) severe cariomyopathy with EF 10-15%, CVA, paroxysmal atrial fibrillation on coumadin, IDDM, COPD, CAD s/p 3 stents,SVT, AICD, partial colectomy and colosotomy, milrinone drip 232 mg/290 D5W infusing from home, ESBL E. coli bactermiea, and endocarditis presented to [facility] with complaints of abdominal pain and blood noted in his colostomy.Anemia of 7.5 on admission, 8.5 s/p 2 u pRBCs, new lesion found in rt lobe of liver likely metastatic, hx of lung ca. As per Nephro upon last admission anemia 2/2 CKD. Pt receiving Iron and Aranesp . Has right cw port, colostomy draining brown stool at this time. Rosario Augustine, Palliative care, consulted, further goals of care planning discussed with and son. As per son, they would like some more time to think about their options.
[2017-12-01] MEDS: Milrinone 20mg/100ml D5W 100 ML IV PRN (18:42)
--- NOTE | 2017-12-01 19:55 | PN ---
DATE: 12/01/2017 SUBJECTIVE: The patient is seen lying in bed. is at bedside. He is awake. He is alert. He does not appear to be in any kind of distress. PHYSICAL EXAMINATION: VITAL SIGNS: Blood pressure 127/67, heart rate 72, respiratory rate 18, temperature 98. HEENT: Normocephalic, atraumatic, positive pallor. NECK: Supple, no JVD. LUNGS: Bilateral equal air entry, bilateral equal expansion, no rales. CARDIAC: S1 and S2, regular rate and rhythm, no murmur, no rub. ABDOMEN: Soft, nondistended, bowel sounds present, positive colostomy. EXTREMITIES: No lower extremity edema. INTAKE AND OUTPUT: Not charted. LABORATORY DATA: No new labs available. CURRENT MEDICATIONS: Cordarone 200 mg daily, Coreg 25 b.i.d., Coumadin 2 mg, doxycycline 100 every 12, oral iron, Flomax, insulin, Venofer 200 mg daily, Lasix 20 IV daily, Levemir, Lipitor, mag oxide, meropenem, Pepcid, PhosLo, milrinone, Proscar, Protonix, sodium bicarbonate, Zaroxolyn 2.5 daily. ASSESSMENT: 1. Stable chronic kidney disease stage IV. 2. Multifactorial anemia, anemia of chronic kidney disease, recent blood in the colostomy. 3. Congestive heart failure/cardiomyopathy, on milrinone therapy. 4. Haz-gjxytek-yzoodtlgr diabetes mellitus. 5. Hypertension. 6. Secondary hyperparathyroidism. PLAN: 1. Continue IV iron. 2. Continue empiric antibiotics. 3. Continue milrinone. 4. Check labs in a.m. 5. Renal function stable. Kaylen Crump MD
--- NOTE | 2017-12-02 00:51 | CON ---
DATE: 12/01/2017 LOCATION: The patient seen earlier today in room 560, bed#2. CHIEF COMPLAINT: Weakness times several days. HISTORY OF PRESENT ILLNESS: This is a 72-year-old Scottish male known to me from multiple admissions with history of ESPL Klebsiella urinary tract infection and bacteremia, history of Proteus urinary tract infection, history of healthcare-associated pneumonia, pseudomembranous colitis, cardiomyopathy, coronary artery disease, history of lung cancer, liver metastases and radiation, diabetes, hypertension, diverticulitis, history of renal disease and who is admitted through the emergency room with diagnosis of profound anemia requiring transfusion and pneumonia and the patient's is at the bedside states that the patient had been weak, had low grade fevers and no chest pain. There is mild shortness of breath. No headaches or blurred vision, no neck pain. No dysuria or frequency and he does have a [place] catheter. REVIEW OF SYSTEMS: A 12-point review of systems performed. PAST MEDICAL HISTORY: Significant for renal disease, diverticulitis, diabetes, hypertension, cardiomyopathy, coronary artery disease, lung cancer with liver metastases, has had radiation therapy, history of pseudomembranous colitis and healthcare-associated pneumonia, Proteus urinary tract infection, history of ESBL Klebsiella urinary tract infection and bacteremia. PAST SURGICAL HISTORY: Significant for coronary artery bypass graft, appendectomy, back surgery and ileostomy and bilateral cataract surgery. ALLERGIES: THE PATIENT HAS NO KNOWN ALLERGIES TO ANY ANTIBIOTICS. MEDICATIONS: At home include milrinone, Levemir, and Flomax and multivitamins, Lasix and Lipitor,and amiodarone. PHYSICAL EXAMINATION: GENERAL: The patient is in bed, appearing chronically ill and weak. VITAL SIGNS: Temperature of 98, the patient's temperature is down to 96.1 and heart rate of 77 and it was up to 97, respiratory rate of 19, was up to 20 with a blood pressure of 137/83 and oxygen saturation was at 97% on room air. HEENT: Examination of HEENT is unremarkable. NECK: Supple. LUNGS: Have decreased breath sounds. HEART: Normal S1, S2. ABDOMEN: Soft, nontender. No rebound or guarding. No masses. LABORATORY EXAMINATION: Reveals the patient to have white count of 7.2, hemoglobin of 7.5, MCV is 77 with a platelets of 419 and 67% granulocytosis, coagulation is noted and chemistries reveals the patient has a BUN of 58, creatinine of 3.4. The patient had a procalcitonin which was 0.17 and urinalysis is noted. Yeast in the urine, 25-30 wbc's, large bacteria. Microbiology reveals the blood cultures are no growth. The urine culture has Klebsiella pneumonia species which is sensitive, it reveals the patient has a ESBL Klebsiella and sensitive to Amikacin, colistin, resistant to cefepime and resistant to Zosyn, sensitive to have Avycaz, no meropenem testing is done. The patient also had a CT scan of the chest which shows a left upper lobe infiltrate and CAT scan of the abdomen and pelvis which shows a new hypodense lesion in the right lower lobe that is consistent with metastatic disease. ASSESSMENT/PLAN This is a 72-year-old male, Scottish, multiple hospitalizations, history of extended-spectrum ?-lactamase Klebsiella urinary tract infection and bacteremia, history of Proteus urinary tract infection, healthcare-associated pneumonia, pseudomembranous colitis, cardiomyopathy, hypertension, diabetes. The patient with lung cancer with liver metastases that is progressing now with extended-spectrum ?-lactamase Klebsiella pneumonia, urinary tract infection and healthcare-associated pneumonia with a normal procalcitonin, negative blood cultures on meropenem, doxycycline day #2, would complete 4 to 7 days. Overall prognosis quite poor for this patient who has metastatic disease. Consider a hospice setting and supportive care. Walt Conner MD
--- NOTE | 2017-12-02 05:48 | CP.PCM.PN ---
Subjective - Date & Time of Evaluation Date of Evaluation: 12/02/17 Time of Evaluation: 06:15 - Subjective Subjective: Awake,lying in bed, no distress,denies chest pain, denies shortness of breath Reason for consultation and follow up: Cardiac evaluation, severe cardiomyopathy LVEF 10-15% on Primacor at home, CVA, Atrial fibrillation on coumadin,IDDM, COPD, coronary artery disease with stents Seen and examined by me and Dr. Mathews Objective - Vital Signs/Intake and Output Vital Signs (last 24 hours): Temp Pulse Resp BP Pulse Ox 98.1 F 89 20 125/77 96 12/01/17 14:00 12/01/17 14:00 12/01/17 14:00 12/01/17 14:00 12/01/17 14:00 Intake and Output: 12/01/17 12/02/17 18:59 06:59 Intake Total 300 240 Output Total 350 200 Balance -50 40 - Medications Medications: Current Medications Amiodarone HCl (Cordarone) 200 mg PO DAILY [facility] Last Admin: 12/01/17 11:42 Dose: 200 mg Atorvastatin Calcium (Lipitor) 10 mg PO DAILY [facility] Last Admin: 12/01/17 11:42 Dose: 10 mg Calcium Acetate (Phoslo) 667 mg PO WM [facility] Last Admin: 12/01/17 18:38 Dose: 667 mg Carvedilol (Coreg) 25 mg PO BID [facility] Last Admin: 12/01/17 18:41 Dose: 25 mg Doxycycline Hyclate (Doryx) 100 mg PO Q12 [facility] Stop: 12/05/17 10:16 Last Admin: 12/01/17 22:15 Dose: 100 mg Famotidine (Pepcid) 20 mg PO HS [facility] Last Admin: 12/01/17 22:15 Dose: 20 mg Finasteride (Proscar) 5 mg PO DAILY [facility] Last Admin: 12/01/17 14:00 Dose: 5 mg Furosemide (Lasix) 20 mg IVP DAILY [facility] Last Admin: 12/01/17 11:44 Dose: 20 mg Milrinone Lactate/Dextrose (Primacor 20mg/100ml D5w) 100 mls @ 2.381 mls/hr IV .Q24H PRN; Protocol; 0.125 MCG/KG/MIN PRN Reason: TITRATE PER MD ORDER Last Admin: 12/01/17 18:42 Dose: 0.125 mcg/kg/min, 2.381 mls/hr Iron Sucrose 200 mg/ Sodium (Chloride) 110 mls @ 110 mls/hr IVPB DAILY [facility] Stop: 12/04/17 10:59 Last Admin: 12/01/17 14:00 Dose: 110 mls/hr Meropenem 250 mg/ Sodium (Chloride) 100 mls @ 100 mls/hr IVPB Q12H [facility] PRN Reason: Protocol Stop: 12/09/17 22:46 Last Admin: 12/01/17 22:15 Dose: 100 mls/hr Insulin Detemir (Levemir) 15 unit SC BID [facility] Insulin Human Regular (Humulin R Low) 0 units SC ACHS [facility] PRN Reason: Protocol Last Admin: 12/01/17 22:15 Dose: Not Given Magnesium Oxide (Mag-Ox) 400 mg PO BID [facility] Last Admin: 12/01/17 18:41 Dose: 400 mg Metolazone (Zaroxolyn) 2.5 mg PO DAILY [facility] Last Admin: 12/01/17 11:43 Dose: 2.5 mg Multivitamins (Thera Tab) 1 tab PO 0800 [facility] Last Admin: 12/01/17 11:44 Dose: 1 tab Oxycodone HCl (Oxycodone Immediate Release Tab) 5 mg PO Q6H PRN PRN Reason: Pain, severe (8-10) Stop: 12/04/17 23:59 Last Admin: 11/29/17 17:49 Dose: 5 mg Pantoprazole Sodium (Protonix Ec Tab) 40 mg PO DAILY [facility] Last Admin: 12/01/17 11:42 Dose: 40 mg Polysaccharide Iron Complex (Ferrex-150) 150 mg PO DAILY [facility] Last Admin: 12/01/17 14:00 Dose: 150 mg Sodium Bicarbonate (Sodium Bicarbonate Tab) 650 mg PO DAILY [facility] Last Admin: 12/01/17 11:43 Dose: 650 mg Tamsulosin HCl (Flomax) 0.4 mg PO DAILY [facility] Last Admin: 12/01/17 11:44 Dose: 0.4 mg Warfarin Sodium (Coumadin) 2 mg PO 1800 [facility] PRN Reason: Protocol Last Admin: 12/01/17 18:41 Dose: 2 mg - Labs Labs: 11/30/17 06:00 11/30/17 06:00 PT 15.7 SECONDS (9.4-12.5) H 11/28/17 11:59 INR 1.36 (0.93-1.08) H 11/28/17 11:59 - Constitutional Appears: No Acute Distress - Eye Exam Eye Exam: Normal appearance - ENT Exam ENT Exam: Mucous Membranes Moist - Respiratory Exam Respiratory Exam: Decreased Breath Sounds, NORMAL BREATHING PATTERN - Cardiovascular Exam Cardiovascular Exam: +S1, +S2 Additional comments: AICD barry cath - GI/Abdominal Exam GI & Abdominal Exam: Soft, Normal Bowel Sounds - Rectal Exam Additional comments: colostomy - Exam Additional comments: [place] catheter - Extremities Exam Extremities Exam: Normal Capillary Refill - Neurological Exam Neurological Exam: Alert, Awake, Oriented x3 - Skin Skin Exam: Intact, Normal Color, Warm Assessment and Plan - Assessment and Plan (Free Text) Assessment: A 72 year old male who came in to the ER due to complaints of abdominal pain and melena in colostomy. Recently admiited 11/02 due to GI bleed.History of Lung cancer with radiation, chronic kidney disease, AAA (stent) severe cardiomyopathy with EF 10-15%, on home Milrinone, CVA, paroxysmal atrial fibrillation on coumadin, IDDM, COPD, CAD s/p 3 stents, SVT, AICD, partial colectomy and colosotomy,, ESBL E. coli bactermiea, and endocarditis, HCAP, BPH , anemia. Speaks malay. Plan: Cardiac status stable Palliative care consulted,awaiting family decision Cardiac status stable Continue Milrinone drip CT of chest showed left upper lobe infiltrate On Doxycycline and Meropenem Hemoglobin and hematocrit stable post transfusion of 2 units PRBC On Amiodarone 200 mg daily, Lipitor 10 mg daily, Coreg 25 mg BID, Lasix 20 mg daily, Milrinone drip,Zaroxylyn 2.5 mg daily, Continue current medications Continue current treatment Will follow up Plan and treatment discussed with Dr. Mathews
[2017-12-02 07:01] LABS: HEMOGLOBIN 9.3 g/dL (14.0-18.0); MEAN CELL VOLUME 80.1 fl (80.0-105.0); MEAN CORPUSCULAR HEMOGLOBIN 25.8 pg (25.0-35.0); MEAN CORPUSCULAR HGB CONC 32.2 g/dl (31.0-37.0); RBC 3.61 10^6/uL (3.5-6.1); RED CELL DISTRIBUTION WIDTH 17.8 % (11.5-14.5); WHITE BLOOD COUNT 7.9 10^3/ul (4.5-11.0)
[2017-12-02 07:06] LABS: ALB/GLOB RATIO 0.9 (1.1-1.8); ALBUMIN 3.2 g/dL (3.0-4.8); CALCIUM 8.9 mg/dL (8.4-10.5)
[2017-12-02 07:18] LABS: INR 1.43 (0.93-1.08); PROTHROMBIN TIME 16.6 SECONDS (9.4-12.5)
--- NOTE | 2017-12-02 08:12 | CON ---
DATE: 12/01/2017 PULMONARY CONSULTATION REFERRING PHYSICIAN: Dr. Palacios. REASON FOR CONSULTATION: Chronic obstructive lung disease, may have sleep apnea syndrome, lung cancer with metastatic disease. HISTORY OF PRESENT ILLNESS: This is a 72-year-old gentleman well known to me from previous admission with severe cardiomyopathy, LV ejection fraction is about 15%, has AICD; coronary artery disease, history of coronary stent; atrial fibrillation; chronic lung disease; history of lung cancer treated with radiation therapy; BPH; renal failure; history of stroke; anemia; history of bowel obstruction in the remote past, requiring laparotomy and colostomy, admitted with anemia, coffee-ground emesis and also had coffee-ground in the colostomy bag. During the workup shows has a density in the liver, suspected metastatic disease and also has upper lobe infiltrate. He has a known left upper lobe lung cancer, had a radiation therapy in the past. Presently, lying in the bed. Has some cough, not much sputum production. No hemoptysis, no hematemesis . No more active bleeding. is at bedside. No leg pain or leg swelling. Has some back pain. PAST MEDICAL HISTORY: As per history of present illness. FAMILY HISTORY: No significant cardiopulmonary disease reported. SOCIAL HISTORY: No history of smoking or alcohol use. ALLERGIES: NONE KNOWN. MEDICATIONS: He is amiodarone 200 mg daily, Coreg 25 mg twice a day, Coumadin 2 mg daily, doxycycline 100 mg twice a day, Ferrex 150 mg daily, Topamax mg daily, insulin coverage, iron is IV 200 mg daily, Lasix 20 mg daily, Levemir 50 units subcu twice a day, Lipitor 10 mg daily, mag oxide 400 mg twice a day. He is on IV meropenem 250 mg every 12 hours, oxycodone immediate release 5 mg every 6 hours p.r.n., Pepcid 20 mg at bedtime, PhosLo with the meals, IV milrinone is there, Proscar is 5 mg daily, Protonix 40 mg daily, sodium bicarbonate 650 mg daily, multivitamins daily, Zaroxolyn 2.5 mg daily. REVIEW OF SYSTEMS: No headache, no rhinitis. Does have some cough, clear sputum. No chest pain. No nausea, no abdominal pain. Has low back discomfort. No significant leg swelling. PHYSICAL EXAMINATION: GENERAL: Lying in the bed, no acute distress. VITAL SIGNS: Temperature is 98, heart rate 89, respiratory is 20, blood pressure 125/77, pulse ox of 96% on nasal cannula. HEENT: Moist mucous membrane. Crowded airway. Mallampati score is 4. NECK: Supple. No JVD. LUNGS: Have scattered rhonchi. HEART: S1 and S2. ABDOMEN: Soft, nontender. Colostomy bag working good. EXTREMITIES: There is no edema. NEUROLOGIC: Awake and alert, follows simple command. LABORATORY DATA: Shows hemoglobin 9.5, hematocrit 28.6, WBC 10.2, platelet count is 441. Blood sugar 151. Sodium 138, potassium 4, chloride 98, bicarbonate 28, BUN 58, creatinine 3.4, glucose is 202, calcium 9.2, phosphorus 4.4, magnesium 2, AST 35, ALT 27, alk phos is 149. Albumin is 3.5. TSH 0.88. Microbiology, urine culture has Klebsiella pneumoniae. Also had a CT of the chest done, which shows bolus changes in the right upper lobe and left upper lobe infiltrate with consolidation and air bronchogram, small left pleural effusion. IMPRESSION AND PLAN: Severe cardiomyopathy, Primacor dependent, has AICD; chronic lung disease, probably has a metastatic lung cancer, had a radiation therapy in the past; history of bowel obstruction, requiring ileostomy; recurrent gastrointestinal bleed secondary to coagulopathy, secondary to Coumadin, may have pneumonia. Case discussed with patient's at bedside. All the questions were answered. Continue antibiotics. Continue bronchodilator. Keep head at 45 degrees. Sleep apnea precaution, refusing to use continuous positive airway pressure. Oncology followup. We will get physical therapy if we can get the patient out of bed to chair, may need Morris lift. Continue pain management. Overall poor prognosis. Thank you and we will follow with you. Arabella Alva MD
[2017-12-02] MEDS: Insulin Reg-LOW-Coverage SC SCH ×4 (08:48→22:15)
[2017-12-02] MEDS: Multivitamin Therapeutic Tab PO SCH (09:29)
[2017-12-02] MEDS: Iron Complex Polysacch 150mg Cap PO SCH (09:29)
[2017-12-02] MEDS: Magnesium Oxide 400 mg Tab UD PO SCH ×2 (09:32→18:46)
[2017-12-02] MEDS: metOLazone 2.5 MG TAB PO SCH (09:32)
[2017-12-02] MEDS: Insulin Detemir 100 units/ml Vial (Levemir) SC SCH ×2 (09:33→18:46)
[2017-12-02] MEDS: Pantoprazole 40 mg EC Tab PO SCH (13:01)
--- NOTE | 2017-12-02 13:28 | CP.PCM.PN ---
Subjective - Date & Time of Evaluation Date of Evaluation: 12/02/17 Time of Evaluation: 12:00 - Subjective Subjective: No vomiting. Objective - Vital Signs/Intake and Output Vital Signs (last 24 hours): Temp Pulse Resp BP Pulse Ox 98.6 F 87 18 144/82 96 12/02/17 06:00 12/02/17 09:28 12/02/17 06:00 12/02/17 09:37 12/02/17 06:00 Intake and Output: 12/02/17 12/02/17 06:59 18:59 Intake Total 360 Output Total 500 Balance -140 - Medications Medications: Current Medications Amiodarone HCl (Cordarone) 200 mg PO DAILY [facility] Last Admin: 12/02/17 09:32 Dose: 200 mg Atorvastatin Calcium (Lipitor) 10 mg PO DAILY [facility] Last Admin: 12/02/17 09:32 Dose: 10 mg Calcium Acetate (Phoslo) 667 mg PO WM [facility] Last Admin: 12/02/17 09:32 Dose: 667 mg Carvedilol (Coreg) 25 mg PO BID [facility] Last Admin: 12/02/17 09:28 Dose: 25 mg Doxycycline Hyclate (Doryx) 100 mg PO Q12 [facility] Stop: 12/05/17 10:16 Last Admin: 12/02/17 09:29 Dose: 100 mg Famotidine (Pepcid) 20 mg PO HS [facility] Last Admin: 12/01/17 22:15 Dose: 20 mg Finasteride (Proscar) 5 mg PO DAILY [facility] Last Admin: 12/02/17 09:29 Dose: 5 mg Furosemide (Lasix) 20 mg IVP DAILY [facility] Last Admin: 12/02/17 09:37 Dose: 20 mg Milrinone Lactate/Dextrose (Primacor 20mg/100ml D5w) 100 mls @ 2.381 mls/hr IV .Q24H PRN; Protocol; 0.125 MCG/KG/MIN PRN Reason: TITRATE PER MD ORDER Last Admin: 12/01/17 18:42 Dose: 0.125 mcg/kg/min, 2.381 mls/hr Iron Sucrose 200 mg/ Sodium (Chloride) 110 mls @ 110 mls/hr IVPB DAILY [facility] Stop: 12/04/17 10:59 Last Admin: 12/02/17 11:43 Dose: 110 mls/hr Ceftazidime/Avibactam 0.94 gm/ (Sodium Chloride) 50 mls @ 25 mls/hr IV Q12 [facility] Insulin Detemir (Levemir) 15 unit SC BID [facility] Last Admin: 12/02/17 09:33 Dose: 15 unit Insulin Human Regular (Humulin R Low) 0 units SC ACHS [facility] PRN Reason: Protocol Last Admin: 12/02/17 08:48 Dose: Not Given Magnesium Oxide (Mag-Ox) 400 mg PO BID [facility] Last Admin: 12/02/17 09:32 Dose: 400 mg Metolazone (Zaroxolyn) 2.5 mg PO DAILY [facility] Last Admin: 12/02/17 09:32 Dose: 2.5 mg Multivitamins (Thera Tab) 1 tab PO 0800 [facility] Last Admin: 12/02/17 09:29 Dose: 1 tab Oxycodone HCl (Oxycodone Immediate Release Tab) 5 mg PO Q6H PRN PRN Reason: Pain, severe (8-10) Stop: 12/04/17 23:59 Last Admin: 11/29/17 17:49 Dose: 5 mg Pantoprazole Sodium (Protonix Ec Tab) 40 mg PO DAILY [facility] Last Admin: 12/01/17 11:42 Dose: 40 mg Polysaccharide Iron Complex (Ferrex-150) 150 mg PO DAILY [facility] Last Admin: 12/02/17 09:29 Dose: 150 mg Sodium Bicarbonate (Sodium Bicarbonate Tab) 650 mg PO DAILY [facility] Last Admin: 12/01/17 11:43 Dose: 650 mg Tamsulosin HCl (Flomax) 0.4 mg PO DAILY [facility] Last Admin: 12/01/17 11:44 Dose: 0.4 mg Warfarin Sodium (Coumadin) 2 mg PO 1800 [facility] PRN Reason: Protocol Last Admin: 12/01/17 18:41 Dose: 2 mg - Labs Labs: 12/02/17 06:20 12/02/17 06:20 PT 16.6 SECONDS (9.4-12.5) H 12/02/17 06:20 INR 1.43 (0.93-1.08) H 12/02/17 06:20 - Constitutional Appears: Cachectic, Chronically Ill - Eye Exam Eye Exam: Normal appearance - Respiratory Exam Respiratory Exam: Decreased Breath Sounds, Rhonchi - Cardiovascular Exam Cardiovascular Exam: Irregular Rhythm, +S1, +S2 - GI/Abdominal Exam GI & Abdominal Exam: Soft, Normal Bowel Sounds Additional comments: colostomy - Neurological Exam Neurological Exam: Altered Assessment and Plan - Assessment and Plan (Free Text) Assessment: 72 year old male with history of lung cancer AAA, HTN, CVA, A Fib, AICD, who is admitted with GI bleed, anemia,bacteremia. CT show progression of cancer to liver. Patient's at bedside. Family has not made any decision regarding hospice care. Offered to have family meeting for further discussion regarding goals of care and hospice. states that her son Perry to come later today. Plan: Goals of care Cardiac: Continue milrinone drip, Amiodarone, Coreg, Lasix, Lipitor. Anemia: Iron replacement, Monitor CBC, Pneumonia: Continue Merrem, Doxycline.
--- NOTE | 2017-12-02 14:19 | CP.PCM.PN ---
Subjective - Date & Time of Evaluation Date of Evaluation: 12/02/17 Time of Evaluation: 11:35 - Subjective Subjective: Patient is still weak-looking, sleepy but arousable, poor appetite, no diarrhea , no fevers. Objective - Vital Signs/Intake and Output Vital Signs (last 24 hours): Temp Pulse Resp BP Pulse Ox 98.6 F 87 18 144/82 96 12/02/17 06:00 12/02/17 09:28 12/02/17 06:00 12/02/17 09:37 12/02/17 06:00 Intake and Output: 12/02/17 12/02/17 06:59 18:59 Intake Total 360 Output Total 500 Balance -140 - Medications Medications: Current Medications Amiodarone HCl (Cordarone) 200 mg PO DAILY [facility] Last Admin: 12/02/17 09:32 Dose: 200 mg Atorvastatin Calcium (Lipitor) 10 mg PO DAILY [facility] Last Admin: 12/02/17 09:32 Dose: 10 mg Calcium Acetate (Phoslo) 667 mg PO WM [facility] Last Admin: 12/02/17 09:32 Dose: 667 mg Carvedilol (Coreg) 25 mg PO BID [facility] Last Admin: 12/02/17 09:28 Dose: 25 mg Doxycycline Hyclate (Doryx) 100 mg PO Q12 [facility] Stop: 12/05/17 10:16 Last Admin: 12/02/17 09:29 Dose: 100 mg Famotidine (Pepcid) 20 mg PO HS [facility] Last Admin: 12/01/17 22:15 Dose: 20 mg Finasteride (Proscar) 5 mg PO DAILY [facility] Last Admin: 12/02/17 09:29 Dose: 5 mg Furosemide (Lasix) 20 mg IVP DAILY [facility] Last Admin: 12/02/17 09:37 Dose: 20 mg Milrinone Lactate/Dextrose (Primacor 20mg/100ml D5w) 100 mls @ 2.381 mls/hr IV .Q24H PRN; Protocol; 0.125 MCG/KG/MIN PRN Reason: TITRATE PER MD ORDER Last Admin: 12/01/17 18:42 Dose: 0.125 mcg/kg/min, 2.381 mls/hr Iron Sucrose 200 mg/ Sodium (Chloride) 110 mls @ 110 mls/hr IVPB DAILY [facility] Stop: 12/04/17 10:59 Last Admin: 12/01/17 14:00 Dose: 110 mls/hr Meropenem 250 mg/ Sodium (Chloride) 100 mls @ 100 mls/hr IVPB Q12H [facility] PRN Reason: Protocol Stop: 12/09/17 22:46 Last Admin: 12/01/17 22:15 Dose: 100 mls/hr Colistimethate Sodium 100 mg/ (Sodium Chloride) 100 mls @ 200 mls/hr IV QOTHERDAY [facility] PRN Reason: Protocol Insulin Detemir (Levemir) 15 unit SC BID [facility] Last Admin: 12/02/17 09:33 Dose: 15 unit Insulin Human Regular (Humulin R Low) 0 units SC ACHS [facility] PRN Reason: Protocol Last Admin: 12/02/17 08:48 Dose: Not Given Magnesium Oxide (Mag-Ox) 400 mg PO BID [facility] Last Admin: 12/02/17 09:32 Dose: 400 mg Metolazone (Zaroxolyn) 2.5 mg PO DAILY [facility] Last Admin: 12/02/17 09:32 Dose: 2.5 mg Multivitamins (Thera Tab) 1 tab PO 0800 [facility] Last Admin: 12/02/17 09:29 Dose: 1 tab Oxycodone HCl (Oxycodone Immediate Release Tab) 5 mg PO Q6H PRN PRN Reason: Pain, severe (8-10) Stop: 12/04/17 23:59 Last Admin: 11/29/17 17:49 Dose: 5 mg Pantoprazole Sodium (Protonix Ec Tab) 40 mg PO DAILY [facility] Last Admin: 12/01/17 11:42 Dose: 40 mg Polysaccharide Iron Complex (Ferrex-150) 150 mg PO DAILY [facility] Last Admin: 12/02/17 09:29 Dose: 150 mg Sodium Bicarbonate (Sodium Bicarbonate Tab) 650 mg PO DAILY [facility] Last Admin: 12/01/17 11:43 Dose: 650 mg Tamsulosin HCl (Flomax) 0.4 mg PO DAILY [facility] Last Admin: 12/01/17 11:44 Dose: 0.4 mg Warfarin Sodium (Coumadin) 2 mg PO 1800 [facility] PRN Reason: Protocol Last Admin: 12/01/17 18:41 Dose: 2 mg - Labs Labs: 12/02/17 06:20 12/02/17 06:20 PT 16.6 SECONDS (9.4-12.5) H 12/02/17 06:20 INR 1.43 (0.93-1.08) H 12/02/17 06:20 - Constitutional Appears: Chronically Ill - Head Exam Head Exam: NORMAL INSPECTION - ENT Exam ENT Exam: Mucous Membranes Moist - Neck Exam Neck Exam: absent: Meningismus - Respiratory Exam Respiratory Exam: Decreased Breath Sounds Additional comments: right sided port in place - Cardiovascular Exam Cardiovascular Exam: +S1, +S2 - GI/Abdominal Exam GI & Abdominal Exam: Soft. absent: Tenderness Additional comments: colostomy in place Assessment and Plan - Assessment and Plan (Free Text) Plan: Assessment complicated UTI with Grimaldo catheter from multidrug-resistant ESBL-producing Klebsiella, on top of HCAP chronic CHF S/P UTI with ESBL Klebsiella and Proteus history of sepsis due to left upper lobe healthcare-associated pneumonia, probably atypical history of severe sepsis due to ESBL E. coli bacteremia, unclear source history of sepsis due to right sided healthcare-associated pneumonia history of UTI with carbapenem-resistant Klebsiella history of ESBL-producing Klebsiella bacteremia, secondary to the port S/P removal S/P treatment for healthcare-associated pneumonia history of C diff associated diarrhea history of UTI with yeast history healthcare-associated pneumonia Severe cardiomyopathy with EF 10-15 % paroxysmal atrial fibrillation Coronary artery disease S/P stenting history of aortic aneurysm history of SVT S/P AICD placement S/P procedure on his prostate in 2012 S/P partial colectomy and colostomy Plan Klebsiella is resistant to Merrem and patient has chronic renal failure - will change to Avycaz and Doxycycline to complete 5-7 days of antibiotics overall prognosis is poor
--- NOTE | 2017-12-02 15:15 | PN ---
DATE: 12/01/2017 SUBJECTIVE: The patient is lying in bed, is comfortable. No chest pain. No short of breath. Currently, receiving IV antibiotics. PHYSICAL EXAMINATION VITAL SIGNS: Temperature 98.1, heart rate 80, blood pressure 125/77, respirations 20, saturating 96% on 2 liters. HEENT: Head and neck examination is normal. No JVD, no thyromegaly. CHEST: Clear bilaterally. CARDIAC: First sound and second sound normal. Systolic murmur in the mitral area. ABDOMEN: Soft, colostomy bag site is clean. No bleeding. Bowel sounds intact. EXTREMITIES: Trace edema. NEUROLOGIC: The patient is bedridden, bilateral lower extremity weakness and left side hemiparesis. LABORATORY DATA: His laboratory study, last H and H, hemoglobin 9.5, hematocrit 28.6. His white count is 10.2, platelets 441. His last blood sugar was below 200. He has sugar low today in the 35, which has been corrected. His hemoglobin A1c is 7.5. Sodium 138, potassium 4, chloride 98, bicarbonate 28, BUN 58, creatinine 3.4. His troponin is 0.02 which is negative. His proBNP is 6330. IMPRESSION AND PLAN: 1. Acute severe anemia. The patient had 3 units of blood transfusions, IV iron and his hemoglobin is up. We will continue current therapy for now. 2. Nosocomial pneumonia. Continue meropenem and IV doxycycline. Also, the patient has extended spectrum beta-lactamases in the urine. We will get consultation by Dr. Conner for the urinary tract infections and bacteremia. According to him, he does have history of extended spectrum beta-lactamases and bacteremia and we will discuss with him about current recommendations. His blood cultures x2 is negative. Recommendation is continue 7 days of IV antibiotics for now. We will follow up his recommendations. 3. The patient have lung cancer, chronic obstructive pulmonary disease, liver metastasis. The patient has poor prognosis. Discussed with the family about comfort palliative care, hospice care. At this time, we will continue current therapy until the family make decisions. Everything explained to them in details and tried to tell the family that the best thing for him is to do comfort care at home or hospice care due to his underlying advanced malignancy. 4. Chronic obstructive pulmonary disease, ischemic cardiomyopathy, chronic renal failure, peripheral vascular disease, aortic aneurysm, insulin-dependent diabetes mellitus. PLAN: Continue current therapy. We will discuss with the family again about DNR situation and hospice care. Dexter Palacios MD
--- NOTE | 2017-12-02 17:40 | PN ---
DATE: 12/02/2017 PULMONARY PROGRESS NOTE SUBJECTIVE: The patient is lying in the bed, sleepy, arousable. Mild cough, clear sputum production. No shortness of breath. No chest pain. No nausea. No vomiting. No melena. No leg swelling. OBJECTIVE: GENERAL: In no acute distress. VITAL SIGNS: Temperature is 98, heart rate 87, respiratory rate is 18, blood pressure 144/82, pulse ox 96% on room air. HEENT: Moist mucous membrane. Crowded airway. Mallampati score is 4. NECK: Supple. No JVD. LUNGS: Have a fair airflow with rhonchi. HEART: S1 and S2. ABDOMEN: Soft, nontender. No organomegaly. EXTREMITIES: No edema. NEUROLOGICAL: Asleep, arousable. Follows simple command. MEDICATIONS: He is on ceftazidime with avibactam 0.94 g every 12 hours, amiodarone 200 mg daily, Coreg 25 mg twice a day, Coumadin 2 mg daily, doxycycline 100 mg twice a day, Ferrex 150 mg daily, Flomax 0.4 mg daily, insulin coverage, iron 200 mg daily, Lasix 20 mg daily, Levemir 15 units subcu twice a day, Lipitor 10 mg daily, mag oxide 400 mg twice a day, oxycodone immediate release 5 mg every 6 hours p.r.n., Pepcid 20 mg at bedtime, Primacor IV drip, Proscar 5 mg daily, Protonix 40 mg daily, sodium bicarbonate daily, multivitamins daily, Zaroxolyn 2.5 mg daily. LABORATORY DATA: Shows hemoglobin 9.3, hematocrit 28.9, WBC 7.9, platelet count is 356. INR 1.43. Sodium 135, potassium 4.2, chloride 98, bicarbonate 26, BUN 47, creatinine 3.2, glucose 142, calcium 8.9, AST 37, ALT 24, alkaline phosphatase is 148. Albumin is 3.2. Urine culture has Klebsiella pneumoniae. Blood culture has been negative. IMPRESSION AND PLAN: Severe cardiomyopathy, Primacor dependent, has automatic implantable cardioverter-defibrillator, chronic lung disease, probably have a metastatic lung cancer. There is a lesion in the liver. Had radiation therapy to the lungs. History of bowel obstruction requiring ileostomy. Recurrent gastrointestinal bleed requiring transfusion and IV iron. Has extended-spectrum beta-lactamase organism in the urine being treated with antibiotics. Spoke to the patient by bedside. All the questions answered. Pulmonary point of view, he is doing okay. Continue bronchodilator. Keep head at 45 degrees. May use supplemental oxygen. Pulse ox less than 90. Sleep apnea precaution. Keep head at 45 degrees. Refusing to use CPAP. May benefit from some limited therapy at bedside. Thank you and we will follow with you. Arabella Alva MD
--- NOTE | 2017-12-02 18:53 | PN ---
DATE: 12/02/2017 SUBJECTIVE: The patient is seen lying in bed. Appears lethargic today. Appetite is poor. PHYSICAL EXAMINATION: GENERAL: Elderly male lying in bed. VITAL SIGNS: Blood pressure 144/82, heart rate 84, respiratory rate 18, temperature 98.6. HEENT: Normocephalic, atraumatic, positive pallor. NECK: Supple, no JVD. LUNGS: Bilateral equal air entry, bilateral poor air entry at bases. CARDIAC: S1 and S2, regular rate and rhythm, no murmur, no rub. ABDOMEN: Soft, nondistended, nontender, bowel sounds present. EXTREMITIES: No lower extremity edema. LABORATORY DATA: WBC 8, hemoglobin 9, hematocrit 29, platelets 356. Sodium 135, potassium 4.2, chloride 98, CO2 of 26. BUN 47, creatinine 3.2. Glucose 142. Calcium 8.9. Urine culture, Klebsiella. CURRENT MEDICATIONS: Cordarone, Coreg, Coumadin, doxycycline, oral iron, Venofer, Flomax, insulin, milrinone. ASSESSMENT: 1. Stable chronic kidney disease stage IV. 2. Mild prerenal azotemia. 3. Extended-spectrum beta-lactamase urinary tract infection, antibiotics to be changed today. 4. Congestive heart failure. 5. Ret-hrygsoa-ueqjlzyak diabetes mellitus. 6. Hypertension. PLAN: 1. Antibiotics as per ID recommendations, dose for creatinine clearance about 30 mL/min. 2. Continue milrinone. 3. Continue Lasix. 4. Monitor H and H. Kaylen Crump MD
[2017-12-03] MEDS ORDERED: Dextrose 50% SYRINGE Inj (50 ml) IVP ONE (08:20)
[2017-12-03] MEDS: Multivitamin Therapeutic Tab PO SCH (09:41)
[2017-12-03] MEDS: Magnesium Oxide 400 mg Tab UD PO SCH ×2 (09:41→17:12)
[2017-12-03] MEDS: Iron Complex Polysacch 150mg Cap PO SCH (09:41)
[2017-12-03] MEDS: metOLazone 2.5 MG TAB PO SCH (09:41)
[2017-12-03] MEDS: Pantoprazole 40 mg EC Tab PO SCH (09:41)
[2017-12-03 09:49] LABS: INR 1.55 (0.93-1.08)
[2017-12-03] MEDS: Insulin Reg-LOW-Coverage SC SCH ×4 (09:51→21:49)
[2017-12-03] MEDS: Insulin Detemir 100 units/ml Vial (Levemir) SC SCH ×2 (09:54→17:20)
[2017-12-03] MEDS: Milrinone 20mg/100ml D5W 100 ML IV PRN (10:45)
[2017-12-03] MEDS ORDERED: Lidocaine 2% Viscous 100 ml PO SCH (18:00)
[2017-12-04 08:03] LABS: INR 1.91 (0.93-1.08); PROTHROMBIN TIME 22.3 SECONDS (9.4-12.5)
[2017-12-04] MEDS: Insulin Reg-LOW-Coverage SC SCH ×4 (08:39→22:37)
[2017-12-04] MEDS: Multivitamin Therapeutic Tab PO SCH (08:40)
[2017-12-04] MEDS: Iron Complex Polysacch 150mg Cap PO SCH (09:20)
[2017-12-04] MEDS: Magnesium Oxide 400 mg Tab UD PO SCH ×2 (09:21→18:06)
[2017-12-04] MEDS: Insulin Detemir 100 units/ml Vial (Levemir) SC SCH ×2 (09:21→18:53)
[2017-12-04] MEDS: Pantoprazole 40 mg EC Tab PO SCH (09:22)
[2017-12-04] MEDS: metOLazone 2.5 MG TAB PO SCH (09:23)
--- NOTE | 2017-12-04 14:06 | PN ---
DATE: 12/04/2017 SUBJECTIVE: The patient is in bed, in no acute distress, nontoxic. No fevers and chills. PHYSICAL EXAMINATION: VITAL SIGNS: Temperature is 98, blood pressure is 120/70, respiratory rate of 16. HEENT: Unremarkable. NECK: Supple. LUNGS: Have decreased breath sounds. HEART: Normal S1, S2. ABDOMEN: Soft, nontender. LABORATORY DATA: Reveals the Klebsiella in the urine. It is ESBL positive and sensitive to Avycaz, resistant to meropenem. ASSESSMENT AND PLAN: This is a 72-year-old male with complicated urinary tract infection with a Grimaldo catheter, multidrug resistant extended-spectrum beta-lactamase producing Klebsiella on top of healthcare-associated pneumonia and the patient with chronic congestive heart failure. Currently, on Avycaz day #3 with complete 5-7 days of antibiotics. Review of orders reveals the Avycaz to be active. The patient is also on doxycycline. Long-term prognosis is poor for this patient with so many comorbidities. Walt Conner MD
[2017-12-04 17:10] LABS: URINE BILIRUBIN NEGATIVE (NEGATIVE); URINE BLOOD SMALL (NEGATIVE); URINE GLUCOSE (UA) NEGATIVE (NEGATIVE); URINE LEUKOCYTE ESTERASE LARGE Leu/uL (NEGATIVE); URINE PROTEIN 30 mg/dL (<30 mg/dL); URINE UROBILINOGEN 0.2 E.U./dL (<1 E.U./dL)
[2017-12-04 17:12] LABS: URINE APPEARANCE CLOUDY (CLEAR); URINE COLOR YELLOW (YELLOW)
--- NOTE | 2017-12-04 17:44 | PN ---
DATE: 12/04/2017 PULMONARY PROGRESS NOTE REFERRING PHYSICIAN: Dexter Palacios MD. SUBJECTIVE: The patient is lying in the bed, nursing staff at the bedside, is at the bedside. Night was unremarkable. Still has some cough and sputum. No nausea, no vomiting, no diarrhea, no melena. Colostomy bag is working well. No leg swelling. PHYSICAL EXAMINATION: GENERAL: In no acute distress. VITAL SIGNS: Temperature is 98, heart rate is 75, respiratory rate is 20, blood pressure 118/74, pulse ox 97% on nasal cannula. HEENT: Moist mucous membrane. Crowded airway. Mallampati score is 4. NECK: Supple. No JVD. LUNGS: Have a few scattered rhonchi. HEART: S1 and S2. ABDOMEN: Soft, nontender. No organomegaly. EXTREMITIES: No edema. NEUROLOGICAL: Awake, alert, and follows simple commands. MEDICATIONS: He is on ceftazidime with avibactam every 12 hours, amiodarone 200 mg daily, Coreg 25 mg twice a day, Coumadin 2 mg daily, doxycycline 100 mg twice a day, Ferrex 150 one tab daily, Flomax 0.4 mg daily, insulin coverage, Lasix 20 mg daily, Levemir 10 units subcu twice a day, lidocaine viscous at affected area, Lipitor 10 mg daily, mag oxide 400 mg twice a day, Pepcid 20 mg at bedtime, PhosLo with meals, Primacor IV drip, Proscar 5 mg daily, Protonix 40 mg daily, sodium bicarbonate p.o., multivitamins daily, and Zaroxolyn 2.5 mg daily. LABORATORY DATA: Reviewed, shows INR today is 1.91. Blood sugar is 272. Microbiology: Urine has gram-negative and also is having Klebsiella pneumoniae in one of the culture. IMPRESSION AND PLAN: Severe cardiomyopathy, Primacor dependent, has an automatic implantable cardioverter-defibrillator; chronic lung disease; has a metastatic disease, probably metastasis to the liver from the lung, had been on radiation therapy in the past; history of bowel obstruction requiring laparotomy and has an ileostomy bag, draining well; urinary tract infection which is extended spectrum beta lactamase organism. Pulmonary point of view, doing okay. We will add inhaled bronchodilator. Keep head at 45 degree. Aspiration precaution. Continue supplement Sustacal, gastric prophylaxis. Continue Primacor. Thank you and we will follow with you. Arabella Alva MD
[2017-12-04 17:50] LABS: URINE BACTERIA MOD (NEG); URINE EPITHELIAL CELLS 0 - 2 /hpf (0-5); URINE WBC TNTC /hpf (0-6)
[2017-12-04] MEDS: Acetylcysteine 20% Inhal Soln (4ml) INH SCH (19:08)
[2017-12-04] MEDS: Levalbuterol 0.63 MG/3 ML Inhal Soln UD IH SCH (19:08)
--- NOTE | 2017-12-04 19:43 | PN ---
DATE: 12/04/2017 SUBJECTIVE: Patient is seen lying in bed. He is awake; he is alert; he is comfortable. PHYSICAL EXAMINATION: GENERAL: Elderly male, lying in bed. VITAL SIGNS: Blood pressure 118/74, heart rate 75, respiratory rate 18, temperature 97.7. HEENT: Normocephalic, atraumatic, positive pallor. NECK: Supple, no JVD. LUNGS: Bilateral equal air entry, bilateral equal expansion, no rales. CARDIAC: S1, S2. Regular rate and rhythm. No murmur, no rub. ABDOMEN: Distended, soft, positive colostomy, bowel sounds present. EXTREMITIES: No lower extremity edema. INTAKE AND OUTPUT: 1168/800. LABORATORY DATA: WBC 3.6, hemoglobin 9.3, hematocrit 29, platelets 356. No chemistry available. MEDICATIONS: Mucomyst, ceftriaxone, amiodarone, Coreg, Coumadin. ASSESSMENT: 1. Stable chronic kidney disease, stage IV. 2. Multifactorial anemia, anemia of chronic kidney disease, gastrointestinal blood loss. 3. Noninsulin-dependent diabetes mellitus. 4. Hypertension. 5. Congestive heart failure, cardiomyopathy. 6. Urinary tract infection. PLAN: 1. Continue antibiotics as per ID recommendations. 2. Dose all antibiotics for creatinine clearance about 30 mL/minute. 3. Avoid nephrotoxins. 4. Continue Primacor and Lasix. 5. Monitor fingersticks. 6. Continue anticoagulation. Kaylen Crump MD
--- NOTE | 2017-12-05 05:45 | CP.PCM.PN ---
Subjective - Date & Time of Evaluation Date of Evaluation: 12/05/17 Time of Evaluation: 06:15 - Subjective Subjective: Sleeping but easily awaken,lying in bed, no distress,denies chest pain, denies shortness of breath Reason for consultation and follow up: Cardiac evaluation, severe cardiomyopathy LVEF 10-15% on Primacor at home, CVA, Atrial fibrillation on coumadin,IDDM, COPD, coronary artery disease with stents Seen and examined by and Dr. Mathews Objective - Vital Signs/Intake and Output Vital Signs (last 24 hours): Temp Pulse Resp BP Pulse Ox 97.7 F 74 18 118/75 97 12/04/17 14:33 12/04/17 19:11 12/04/17 14:33 12/04/17 18:07 12/04/17 14:33 Intake and Output: 12/04/17 12/05/17 18:59 06:59 Intake Total 360 560 Output Total 400 Balance 360 160 - Medications Medications: Current Medications Acetylcysteine (Acetylcysteine 20%) 3 ml INH TID [facility] Last Admin: 12/04/17 19:08 Dose: 3 ml Amiodarone HCl (Cordarone) 200 mg PO DAILY [facility] Last Admin: 12/04/17 09:19 Dose: 200 mg Atorvastatin Calcium (Lipitor) 10 mg PO DAILY [facility] Last Admin: 12/04/17 09:21 Dose: 10 mg Calcium Acetate (Phoslo) 667 mg PO WM [facility] Last Admin: 12/04/17 18:07 Dose: 667 mg Carvedilol (Coreg) 25 mg PO BID [facility] Last Admin: 12/04/17 18:07 Dose: 25 mg Doxycycline Hyclate (Doryx) 100 mg PO Q12 [facility] Stop: 12/05/17 10:16 Last Admin: 12/04/17 22:28 Dose: Not Given Famotidine (Pepcid) 20 mg PO HS [facility] Last Admin: 12/04/17 22:28 Dose: Not Given Finasteride (Proscar) 5 mg PO DAILY [facility] Last Admin: 12/04/17 09:22 Dose: 5 mg Furosemide (Lasix) 20 mg IVP DAILY [facility] Last Admin: 12/04/17 09:21 Dose: 20 mg Milrinone Lactate/Dextrose (Primacor 20mg/100ml D5w) 100 mls @ 2.381 mls/hr IV .Q24H PRN; Protocol; 0.125 MCG/KG/MIN PRN Reason: TITRATE PER MD ORDER Last Admin: 12/03/17 10:45 Dose: 0.125 mcg/kg/min, 2.381 mls/hr Ceftazidime/Avibactam 0.94 gm/ (Sodium Chloride) 50 mls @ 25 mls/hr IV Q12 [facility] Last Admin: 12/04/17 22:28 Dose: Not Given Insulin Detemir (Levemir) 10 unit SC BID [facility] Last Admin: 12/04/17 18:53 Dose: 10 unit Insulin Human Regular (Humulin R Low) 0 units SC ACHS [facility] PRN Reason: Protocol Last Admin: 12/04/17 22:37 Dose: Not Given Levalbuterol HCl (Xopenex) 0.63 mg IH TIDRESP [facility] Last Admin: 12/04/17 19:08 Dose: 0.63 mg Lidocaine HCl (Lidocaine 2% Viscous) 15 ml MM TID [facility] Last Admin: 12/04/17 18:05 Dose: 15 ml Magnesium Oxide (Mag-Ox) 400 mg PO BID [facility] Last Admin: 12/04/17 18:06 Dose: 400 mg Metolazone (Zaroxolyn) 2.5 mg PO DAILY [facility] Last Admin: 12/04/17 09:23 Dose: 2.5 mg Multivitamins (Thera Tab) 1 tab PO 0800 [facility] Last Admin: 12/04/17 08:40 Dose: 1 tab Pantoprazole Sodium (Protonix Ec Tab) 40 mg PO DAILY [facility] Last Admin: 12/04/17 09:22 Dose: 40 mg Polysaccharide Iron Complex (Ferrex-150) 150 mg PO DAILY [facility] Last Admin: 12/04/17 09:20 Dose: 150 mg Sodium Bicarbonate (Sodium Bicarbonate Tab) 650 mg PO DAILY [facility] Last Admin: 12/04/17 09:22 Dose: 650 mg Tamsulosin HCl (Flomax) 0.4 mg PO DAILY [facility] Last Admin: 12/04/17 09:21 Dose: 0.4 mg Warfarin Sodium (Coumadin) 2 mg PO 1800 [facility] PRN Reason: Protocol Last Admin: 12/04/17 18:07 Dose: 2 mg - Labs Labs: 12/02/17 06:20 12/02/17 06:20 PT 22.3 SECONDS (9.4-12.5) H 12/04/17 07:24 INR 1.91 (0.93-1.08) H 12/04/17 07:24 - Constitutional Appears: No Acute Distress - Head Exam Head Exam: NORMOCEPHALIC - Eye Exam Pupil Exam: NORMAL ACCOMODATION - ENT Exam ENT Exam: Mucous Membranes Moist - Respiratory Exam Respiratory Exam: Decreased Breath Sounds, NORMAL BREATHING PATTERN - Cardiovascular Exam Cardiovascular Exam: +S1, +S2 Additional comments: barry cath, on Milrinone drip also at home - GI/Abdominal Exam GI & Abdominal Exam: Soft, Normal Bowel Sounds Additional comments: colostomy - Extremities Exam Extremities Exam: Normal Capillary Refill - Neurological Exam Neurological Exam: Alert, Awake, Oriented x3 - Psychiatric Exam Psychiatric exam: Normal Affect, Normal Mood - Skin Skin Exam: Intact, Normal Color, Warm Assessment and Plan - Assessment and Plan (Free Text) Assessment: A 72 year old male who came in to the ER due to complaints of abdominal pain and melena in colostomy. Recently admiited 11/02 due to GI bleed.History of Lung cancer with radiation, chronic kidney disease, AAA (stent) severe cardiomyopathy with EF 10-15%, on home Milrinone, CVA, paroxysmal atrial fibrillation on coumadin, IDDM, COPD, CAD s/p 3 stents, SVT, AICD, partial colectomy and colosotomy,, ESBL E. coli bactermiea, and endocarditis, HCAP, BPH , anemia. Speaks german.understands simple belarusian. Plan: Refusing po medications,refusing vital signs taken Still on primacor drip via barry cath. Cardiac status stable Palliative care consulted,awaiting family decision On Doxycycline and Meropenem for pneumonia Hemoglobin and hematocrit stable post transfusion of 2 units PRBC On Amiodarone 200 mg daily, Lipitor 10 mg daily, Coreg 25 mg BID, Lasix 20 mg daily, Milrinone drip,Zaroxylyn 2.5 mg daily, Continue current medications Continue current treatment Discharge planning Will follow up Plan and treatment discussed with Dr. Mathews
[2017-12-05] MEDS: Milrinone 20mg/100ml D5W 100 ML IV PRN (06:22)
[2017-12-05] MEDS: Multivitamin Therapeutic Tab PO SCH (07:58)
[2017-12-05] MEDS: Insulin Reg-LOW-Coverage SC SCH ×4 (07:58→22:51)
[2017-12-05] MEDS: Acetylcysteine 20% Inhal Soln (4ml) INH SCH ×3 (08:00→19:44)
[2017-12-05] MEDS: Levalbuterol 0.63 MG/3 ML Inhal Soln UD IH SCH ×3 (08:01→19:44)
[2017-12-05 08:05] LABS: INR 2.23 (0.93-1.08); PROTHROMBIN TIME 26.1 SECONDS (9.4-12.5)
--- NOTE | 2017-12-05 09:06 | PN ---
DATE: 12/03/2017 PULMONARY PROGRESS NOTE REFERRING PHYSICIAN: Dr. Palacios. SUBJECTIVE: He is lying in the bed, sleepy. His is at the bedside. Night was unremarkable. Had some mild cough and clear sputum. No nausea. No vomiting. No diarrhea. No abdominal pain. Ileostomy working well. No melena. No leg pain or leg swelling. OBJECTIVE: GENERAL: In no acute distress. VITAL SIGNS: Temperature is 98.5, heart rate is 75, respiratory rate is 20, blood pressure 110/65, pulse ox 98% on room air. HEENT: Moist mucous membrane. Crowded airway. NECK: Supple. No JVD. LUNGS: Have fair airflow with rhonchi. HEART: S1 and S2. ABDOMEN: Soft, nontender. No organomegaly. Ileostomy bag working well. EXTREMITIES: There is no edema. NEUROLOGIC: Sleepy, arousable. Follows simple command. MEDICATIONS: He is on ceftazidime with avibactam twice a day, amiodarone 200 mg daily, Coreg 25 mg twice a day, Coumadin 2 mg given, doxycycline 100 mg twice a day, Ferrex 150 mg daily, Flomax 0.4 mg daily, insulin coverage, iron 200 mg daily, Lasix 20 mg daily, Levemir 10 units subcu twice a day, Lidoderm patch on affected area, Lipitor 10 mg daily, mag oxide 400 mg twice a day, Pepcid 20 mg at bedtime, PhosLo with the meals, IV Primacor, finasteride 5 mg daily, Protonix 40 mg daily, sodium bicarbonate daily, Zaroxolyn 2.5 mg daily. LABORATORY DATA: Shows hemoglobin 9.3 from yesterday. Blood sugar 272. Urine culture has Klebsiella pneumoniae, which is ESBL. IMPRESSION AND PLAN: Severe cardiomyopathy, Primacor dependent, has automatic implantable cardioverter-defibrillator, chronic lung disease, metastatic lung cancer to liver, poor p.o. intake, history of bowel obstruction requiring laparotomy and ileostomy, status post gastrointestinal bleed, iron deficiency requiring intravenous iron and transfusion. Spoke to patient's at bedside. Patient has poor appetite. Requesting supplement. Spoke to nursing staff. with the meals. Continue bronchodilator. Keep head at 45 degrees. Antibiotics as per Infectious Diseases. Gastric prophylaxis. Overall poor prognosis. Continue supportive care. Thank you and we will follow with you. Arabella Alva MD
[2017-12-05] MEDS: Iron Complex Polysacch 150mg Cap PO SCH (09:19)
[2017-12-05] MEDS: Insulin Detemir 100 units/ml Vial (Levemir) SC SCH ×2 (09:20→17:37)
[2017-12-05] MEDS: Magnesium Oxide 400 mg Tab UD PO SCH ×2 (09:21→17:36)
[2017-12-05] MEDS: metOLazone 2.5 MG TAB PO SCH (09:21)
[2017-12-05] MEDS: Pantoprazole 40 mg EC Tab PO SCH (09:21)
[2017-12-05 09:32] LABS: HEMOGLOBIN 9.3 g/dL (14.0-18.0); MEAN CELL VOLUME 81.3 fl (80.0-105.0); MEAN CORPUSCULAR HEMOGLOBIN 26.8 pg (25.0-35.0); MEAN PLATELET VOLUME 9.1 fl (7.0-11.0); RBC 3.47 10^6/uL (3.5-6.1); RED CELL DISTRIBUTION WIDTH 18.6 % (11.5-14.5); WHITE BLOOD COUNT 9.3 10^3/ul (4.5-11.0)
--- NOTE | 2017-12-05 11:09 | CP.PCM.PN ---
Subjective - Date & Time of Evaluation Date of Evaluation: 12/05/17 Time of Evaluation: 10:00 - Subjective Subjective: Hematology Oncology Progress Note Patient was seen and examined at bedside. Patient at bedside. As per nursing staff, patient has been refusing vitals at times. Patient has complaints of back pain, similar to previously, patient has been OOB and position shifted while in bed. Patient has been tolerating oral intake and has soft brown stool in colostomy. Patient denied fever, chills, chest pains, abdominal pains, nausea,vomiting, dysuria or diarrhea. Objective - Vital Signs/Intake and Output Vital Signs (last 24 hours): Temp Pulse Resp BP Pulse Ox 97.7 F 82 18 117/78 97 12/04/17 14:33 12/05/17 09:19 12/04/17 14:33 12/05/17 09:20 12/04/17 14:33 Intake and Output: 12/05/17 12/05/17 06:59 18:59 Intake Total 660 Output Total 400 Balance 260 - Medications Medications: Current Medications Acetylcysteine (Acetylcysteine 20%) 3 ml INH TID [facility] Last Admin: 12/04/17 19:08 Dose: 3 ml Amiodarone HCl (Cordarone) 200 mg PO DAILY [facility] Last Admin: 12/05/17 09:19 Dose: 200 mg Atorvastatin Calcium (Lipitor) 10 mg PO DAILY [facility] Last Admin: 12/05/17 09:20 Dose: 10 mg Calcium Acetate (Phoslo) 667 mg PO WM [facility] Last Admin: 12/05/17 07:58 Dose: 667 mg Carvedilol (Coreg) 25 mg PO BID [facility] Last Admin: 12/05/17 09:19 Dose: 25 mg Famotidine (Pepcid) 20 mg PO HS [facility] Last Admin: 12/04/17 22:28 Dose: Not Given Finasteride (Proscar) 5 mg PO DAILY [facility] Last Admin: 12/05/17 09:21 Dose: 5 mg Furosemide (Lasix) 20 mg IVP DAILY [facility] Last Admin: 12/05/17 09:20 Dose: 20 mg Milrinone Lactate/Dextrose (Primacor 20mg/100ml D5w) 100 mls @ 2.381 mls/hr IV .Q24H PRN; Protocol; 0.125 MCG/KG/MIN PRN Reason: TITRATE PER MD ORDER Last Admin: 12/05/17 06:22 Dose: 0.125 mcg/kg/min, 2.381 mls/hr Ceftazidime/Avibactam 0.94 gm/ (Sodium Chloride) 50 mls @ 25 mls/hr IV Q12 [facility] Last Admin: 12/05/17 09:17 Dose: 25 mls/hr Insulin Detemir (Levemir) 10 unit SC BID [facility] Last Admin: 12/05/17 09:20 Dose: 10 unit Insulin Human Regular (Humulin R Low) 0 units SC ACHS [facility] PRN Reason: Protocol Last Admin: 12/05/17 07:58 Dose: Not Given Levalbuterol HCl (Xopenex) 0.63 mg IH TIDRESP [facility] Last Admin: 12/05/17 08:01 Dose: 0.63 mg Lidocaine HCl (Lidocaine 2% Viscous) 15 ml MM TID [facility] Last Admin: 12/05/17 09:20 Dose: 15 ml Magnesium Oxide (Mag-Ox) 400 mg PO BID [facility] Last Admin: 12/05/17 09:21 Dose: 400 mg Metolazone (Zaroxolyn) 2.5 mg PO DAILY [facility] Last Admin: 12/05/17 09:21 Dose: 2.5 mg Multivitamins (Thera Tab) 1 tab PO 0800 [facility] Last Admin: 12/05/17 07:58 Dose: 1 tab Pantoprazole Sodium (Protonix Ec Tab) 40 mg PO DAILY [facility] Last Admin: 12/05/17 09:21 Dose: 40 mg Polysaccharide Iron Complex (Ferrex-150) 150 mg PO DAILY [facility] Last Admin: 12/05/17 09:19 Dose: 150 mg Sodium Bicarbonate (Sodium Bicarbonate Tab) 650 mg PO DAILY [facility] Last Admin: 12/05/17 09:21 Dose: 650 mg Tamsulosin HCl (Flomax) 0.4 mg PO DAILY [facility] Last Admin: 12/05/17 09:20 Dose: 0.4 mg Warfarin Sodium (Coumadin) 2 mg PO 1800 [facility] PRN Reason: Protocol Last Admin: 12/04/17 18:07 Dose: 2 mg - Labs Labs: 12/05/17 09:25 12/02/17 06:20 PT 26.1 SECONDS (9.4-12.5) H 12/05/17 07:30 INR 2.23 (0.93-1.08) H 12/05/17 07:30 - Constitutional Appears: Chronically Ill - Head Exam Head Exam: ATRAUMATIC, NORMAL INSPECTION, NORMOCEPHALIC - Eye Exam Eye Exam: EOMI, Normal appearance, PERRL - ENT Exam ENT Exam: Mucous Membranes Moist, Normal Exam - Respiratory Exam Respiratory Exam: Clear to Ausculation Bilateral, NORMAL BREATHING PATTERN - Cardiovascular Exam Cardiovascular Exam: REGULAR RHYTHM, +S1, +S2. absent: Murmur - GI/Abdominal Exam GI & Abdominal Exam: Soft, Normal Bowel Sounds. absent: Tenderness Additional comments: + colostomy, brown stool in bag, pink stoma - Back Exam Back Exam: vertebral tenderness - Neurological Exam Neurological Exam: Alert, Awake, CN II-XII Intact, Oriented x3 - Psychiatric Exam Psychiatric exam: Normal Affect, Normal Mood - Skin Skin Exam: Dry, Intact, Normal Color, Warm Assessment and Plan - Assessment and Plan (Free Text) Assessment: 72 Ukrainian speaking M with past medical history of Lung ca( radiation), CKD, AAA (stent) severe cariomyopathy with EF 10-15%, CVA, paroxysmal atrial fibrillation on coumadin, IDDM, COPD, CAD s/p 3 stents,SVT, AICD, partial colectomy and colosotomy, milrinone drip 232 mg/290 D5W infusing from home, ESBL E. coli bactermiea, and endocarditis presented [place] [facility] with complaints of abdominal pain and blood noted in his colostomy.Anemia of 7.5 on admission, 8.5 s/p 2 u pRBCs and currently stable with Hbg at 9.3 without any further episodes of bleeding noted. New lesion found in rt lobe of liver likely metastatic, hx of lung ca, very poor performance score poor prognosis. Rosario Augustine, Palliative care, consulted, further goals of care planning discussed with and son in a patient-centered manner, and all options provided to patient and family. Benefits and risks of interventions discussed with family and all parties conferred understanding. As per Medicaid Service Coordinator, pt to finish iv abx tomorrow, and will subsequently be discharged to home with services.
--- NOTE | 2017-12-05 14:31 | PN ---
DATE: 12/03/2017 SUBJECTIVE: Patient seems stable, comfortable, in no distress. No other complaints. Receiving IV antibiotics as per ID and he is hemodynamically stable and will finish a few more days of IV antibiotics. PHYSICAL EXAMINATION: VITAL SIGNS: His temperature is 98.5, heart rate 75, blood pressure 107/65, respirations 18, sat 98%. HEAD AND NECK: Normal. No JVD. No thyromegaly. CHEST: Clear, diminished breath sounds. CARDIAC: First sound and second sound normal. Systolic murmur. ABDOMEN: Soft, nontender. Colostomy bag, no bleeding, clean, no infection. Bowel sounds intact. EXTREMITIES: No edema. NEUROLOGIC: Patient is bedridden. Bilateral lower extremity weakness, left hemiparesis. LABORATORY STUDY: Noted for sugar is 100 to 200 range, otherwise stable. IMPRESSION AND PLAN: 1. Nosocomial pneumonia. The patient has been in and out of the hospital. We will continue current intravenous antibiotic as per Dr. Elkins, Infectious Disease consult. Getting ceftazidime and avibactam every 12 hours. Continue doxycycline. Continue inhaled bronchodilator. 2. Liver metastasis probably secondary to his lung cancer. Poor prognosis, conservative care, palliative care. 3. Chronic atrial fibrillation, hypertension. Patient is seen by Cardiology, Dr. Mathews and we will monitor his condition. Continue intravenous milrinone, questionable about Coumadin and keep him in a low dose. We will try to be conservative about that as much as we can. We will discuss with his Infectious Disease doctor. Currently, his INR is 1.55. We will try to maintain it, like to not to go higher. 4. Insulin-dependent diabetes. Continue insulin coverage as it is, seems stable. We will decrease insulin because of current hypoglycemia and poor appetite. 5. Chronic obstructive pulmonary disease. 6. Congestive heart failure. 7. Chronic anemia, status post transfusions. 8. Colostomy. 9. Ischemic cardiomyopathy. 10. Hypercholesterolemia. Plan is to continue current management. Monitor his PT/INR carefully because of risk of bleeding. We will discuss with Cardiology. Dexter Palacios MD [facility] # [id number]
--- NOTE | 2017-12-05 15:48 | PN ---
DATE: 12/02/2017 SUBJECTIVE: [place] is comfortable. No respiratory distress. on the bedside. The patient is a little bit sleepy, but otherwise, he can wake up, responded properly to questions. Awake, alert, oriented x3. The patient is currently on IV antibiotics, IV iron and seems stable. PHYSICAL EXAMINATION VITAL SIGNS: Temperature 98.3, heart rate 78, blood pressure 104/61, respirations 18, saturating 96% on room air. HEAD AND NECK: Normal. No JVD. CHEST: Clear bilaterally. Diminished breath sounds. CARDIAC: First sound and second sound normal. There is systolic murmur. Defibrillator on the chest wall side. ABDOMEN: Soft. Colostomy, clean, no bleeding. EXTREMITIES: No edema. NEUROLOGIC: The patient is bedridden, does not move lower extremities and has left hemiparesis also. LABORATORY DATA: His laboratory on the date is as follows 12/02: White count 7.9, hemoglobin 9.3, hematocrit 28.9 and platelets 357. Chemistry: Sodium is 135, potassium 4.2, chloride 98, bicarbonate 26, BUN 47, creatinine 3.2. Glucose 142. Total bilirubin is normal, 0.5. AST is normal, 37. ALT is normal, 24. Alk phos 148. IMPRESSION AND PLAN: 1. Severe anemia requiring transfusions. The patient had already 2 units of blood. H and H stable. Continue IV iron, seems stable at this time. 2. Lung cancer, the patient has liver metastasis. Prognosis is poor. Discussed with the and the family, poor prognosis. Discussed with the family about do not resuscitate follow up with him. 3. Chronic obstructive pulmonary disease, pneumonia. Continue IV antibiotic as per ID. The patient has extended-spectrum beta-lactamase in the urine. We will follow ID recommendations. At this time, we will continue current IV antibiotics. The patient is getting meropenem IV and doxycycline 100 mg also IV, we will switch to p.o. Continue current therapy. We will discuss further with ID; probably the patient . We will discuss with Dr. Elkins about the new antibiotics for this patient, which is ceftazidime and avibactam. Continue current therapy. 4. Insulin-dependent diabetes, hypertension, chronic atrial fibrillation, history of gastrointestinal bleeding and low hemoglobin. We will hold off on any anticoagulation explained to the family. We cannot give any anticoagulation bleeding and the patient is not a candidate for any surgery at this time. Continue conservative therapy, palliative care. Dexter Palacios MD
--- NOTE | 2017-12-05 18:17 | CP.PCM.PN ---
Subjective - Date & Time of Evaluation Date of Evaluation: 12/05/17 Time of Evaluation: 11:00 - Subjective Subjective: Patient has more energy today but still has some weakness, no fevers, not in distress, afebrile. Objective - Vital Signs/Intake and Output Vital Signs (last 24 hours): Temp Pulse Resp BP Pulse Ox 97.7 F 74 18 118/75 97 12/04/17 14:33 12/04/17 19:11 12/04/17 14:33 12/04/17 18:07 12/04/17 14:33 Intake and Output: 12/05/17 12/05/17 06:59 18:59 Intake Total 660 Output Total 400 Balance 260 - Medications Medications: Current Medications Acetylcysteine (Acetylcysteine 20%) 3 ml INH TID [facility] Last Admin: 12/04/17 19:08 Dose: 3 ml Amiodarone HCl (Cordarone) 200 mg PO DAILY [facility] Last Admin: 12/04/17 09:19 Dose: 200 mg Atorvastatin Calcium (Lipitor) 10 mg PO DAILY [facility] Last Admin: 12/04/17 09:21 Dose: 10 mg Calcium Acetate (Phoslo) 667 mg PO WM [facility] Last Admin: 12/05/17 07:58 Dose: 667 mg Carvedilol (Coreg) 25 mg PO BID [facility] Last Admin: 12/04/17 18:07 Dose: 25 mg Doxycycline Hyclate (Doryx) 100 mg PO Q12 [facility] Stop: 12/05/17 10:16 Last Admin: 12/04/17 22:28 Dose: Not Given Famotidine (Pepcid) 20 mg PO HS [facility] Last Admin: 12/04/17 22:28 Dose: Not Given Finasteride (Proscar) 5 mg PO DAILY [facility] Last Admin: 12/04/17 09:22 Dose: 5 mg Furosemide (Lasix) 20 mg IVP DAILY [facility] Last Admin: 12/04/17 09:21 Dose: 20 mg Milrinone Lactate/Dextrose (Primacor 20mg/100ml D5w) 100 mls @ 2.381 mls/hr IV .Q24H PRN; Protocol; 0.125 MCG/KG/MIN PRN Reason: TITRATE PER MD ORDER Last Admin: 12/05/17 06:22 Dose: 0.125 mcg/kg/min, 2.381 mls/hr Ceftazidime/Avibactam 0.94 gm/ (Sodium Chloride) 50 mls @ 25 mls/hr IV Q12 [facility] Last Admin: 12/04/17 22:28 Dose: Not Given Insulin Detemir (Levemir) 10 unit SC BID [facility] Last Admin: 12/04/17 18:53 Dose: 10 unit Insulin Human Regular (Humulin R Low) 0 units SC ACHS [facility] PRN Reason: Protocol Last Admin: 12/05/17 07:58 Dose: Not Given Levalbuterol HCl (Xopenex) 0.63 mg IH TIDRESP [facility] Last Admin: 12/05/17 08:01 Dose: 0.63 mg Lidocaine HCl (Lidocaine 2% Viscous) 15 ml MM TID [facility] Last Admin: 12/04/17 18:05 Dose: 15 ml Magnesium Oxide (Mag-Ox) 400 mg PO BID [facility] Last Admin: 12/04/17 18:06 Dose: 400 mg Metolazone (Zaroxolyn) 2.5 mg PO DAILY [facility] Last Admin: 12/04/17 09:23 Dose: 2.5 mg Multivitamins (Thera Tab) 1 tab PO 0800 [facility] Last Admin: 12/05/17 07:58 Dose: 1 tab Pantoprazole Sodium (Protonix Ec Tab) 40 mg PO DAILY [facility] Last Admin: 12/04/17 09:22 Dose: 40 mg Polysaccharide Iron Complex (Ferrex-150) 150 mg PO DAILY [facility] Last Admin: 12/04/17 09:20 Dose: 150 mg Sodium Bicarbonate (Sodium Bicarbonate Tab) 650 mg PO DAILY [facility] Last Admin: 12/04/17 09:22 Dose: 650 mg Tamsulosin HCl (Flomax) 0.4 mg PO DAILY [facility] Last Admin: 12/04/17 09:21 Dose: 0.4 mg Warfarin Sodium (Coumadin) 2 mg PO 1800 [facility] PRN Reason: Protocol Last Admin: 12/04/17 18:07 Dose: 2 mg - Labs Labs: 12/02/17 06:20 12/02/17 06:20 PT 26.1 SECONDS (9.4-12.5) H 12/05/17 07:30 INR 2.23 (0.93-1.08) H 12/05/17 07:30 - Constitutional Appears: Chronically Ill - Head Exam Head Exam: NORMAL INSPECTION - Respiratory Exam Respiratory Exam: Decreased Breath Sounds - Cardiovascular Exam Cardiovascular Exam: +S1, +S2 - GI/Abdominal Exam GI & Abdominal Exam: Soft. absent: Tenderness Assessment and Plan - Assessment and Plan (Free Text) Plan: Assessment complicated UTI with Grimaldo catheter from multidrug-resistant ESBL-producing Klebsiella, on top of HCAP chronic CHF S/P UTI with ESBL Klebsiella and Proteus history of sepsis due to left upper lobe healthcare-associated pneumonia, probably atypical history of severe sepsis due to ESBL E. coli bacteremia, unclear source history of sepsis due to right sided healthcare-associated pneumonia history of UTI with carbapenem-resistant Klebsiella history of ESBL-producing Klebsiella bacteremia, secondary to the port S/P removal S/P treatment for healthcare-associated pneumonia history of C diff associated diarrhea history of UTI with yeast history healthcare-associated pneumonia Severe cardiomyopathy with EF 10-15 % paroxysmal atrial fibrillation Coronary artery disease S/P stenting history of aortic aneurysm history of SVT S/P AICD placement S/P procedure on his prostate in 2012 S/P partial colectomy and colostomy Plan Klebsiella is resistant to Merrem and patient has chronic renal failure - continue Avycaz day 4 to complete 5-7 days of antibiotics overall prognosis is poor
--- NOTE | 2017-12-05 21:36 | PN ---
DATE: 12/05/2017 PULMONARY PROGRESS NOTE REFERRING PHYSICIAN: Dr. Palacios. SUBJECTIVE: He is lying in the bed, head at 45 degrees, still has a mild cough but overall feel better. No headache. No rhinitis. Appetite is little better. No melena. No hematochezia. No leg swelling. OBJECTIVE: GENERAL: In no acute distress. VITAL SIGNS: Temp is 98, heart rate is 82, respiratory rate is 20, blood pressure 117/78. HEENT: Moist mucous membrane. Crowded airway. NECK: Supple. No JVD. LUNGS: Have fair airflow with rhonchi. HEART: S1 and S2. ABDOMEN: Soft, nontender, nondistended. Ileostomy bag is draining well. EXTREMITIES: There is no edema. NEUROLOGIC: Awake and alert. Follows simple command. MEDICATIONS: He is on Mucomyst 3 mL inhaled three times a day, ceftazidime with avibactam twice a day, amiodarone 200 mg daily, Coreg 25 mg twice a day, Coumadin 2 mg being given, Ferrex 150 mg daily, Flomax 0.4 mg daily, insulin coverage, Lasix 20 mg daily, Levemir 10 units subcu twice a day, lidocaine viscous at affected area three times a day, Lipitor 10 mg daily, mag oxide 400 mg twice a day, Pepcid 20 mg at bedtime, PhosLo with the meals, Primacor IV drip, Proscar 5 mg daily, Protonix 20 mg daily, bicarbonate p.o., multivitamins daily, Xopenex inhaled three times a day, Zaroxolyn 2.5 mg daily. LABORATORY DATA: Shows hemoglobin 9.3, hematocrit 28.2, WBC 9.3, platelet is 335. INR 2.23. Blood sugar of 184. Microbiology: Urine culture has a Klebsiella pneumoniae, which is ESBL. IMPRESSION AND PLAN: Severe cardiomyopathy, Primacor dependent, chronic obstructive lung disease, has an automatic implantable cardioverter-defibrillator, lung cancer, probably metastasis to the liver, history of radiation therapy to the lung, bowel obstruction requiring laparotomy and ileostomy, has a urinary tract infection with the drug resistant organism, seen by Infectious Diseases. Continue antibiotics as per Infectious Disease. Pulmonary point of view, continue bronchodilator. Keep head at 45 degree. He is on Primacor, gastric prophylaxis, anticoagulation. May continue Coumadin 2 mg in the morning. Thank you and we will follow with you. Arabella Alva MD
--- NOTE | 2017-12-06 05:51 | CP.PCM.PN ---
Subjective - Date & Time of Evaluation Date of Evaluation: 12/06/17 Time of Evaluation: 06:15 - Subjective Subjective: Lying in bed,sleeping but easily awaken, no distress,denies chest pain, denies shortness of breath Reason for consultation and follow up: Cardiac evaluation, severe cardiomyopathy LVEF 10-15% on Primacor at home, CVA, Atrial fibrillation on coumadin,IDDM, COPD, coronary artery disease with stents Seen and examined by and Dr. Mathews Objective - Vital Signs/Intake and Output Vital Signs (last 24 hours): Temp Pulse Resp BP Pulse Ox 98.9 F 70 16 116/75 97 12/05/17 22:19 12/05/17 22:19 12/05/17 22:19 12/05/17 22:19 12/05/17 22:19 Intake and Output: 12/05/17 12/06/17 18:59 06:59 Intake Total 360 157 Output Total 0 Balance 360 157 - Medications Medications: Current Medications Acetylcysteine (Acetylcysteine 20%) 3 ml INH TID [facility] Last Admin: 12/05/17 19:44 Dose: 3 ml Amiodarone HCl (Cordarone) 200 mg PO DAILY [facility] Last Admin: 12/05/17 09:19 Dose: 200 mg Atorvastatin Calcium (Lipitor) 10 mg PO DAILY [facility] Last Admin: 12/05/17 09:20 Dose: 10 mg Calcium Acetate (Phoslo) 667 mg PO WM [facility] Last Admin: 12/05/17 17:41 Dose: 667 mg Carvedilol (Coreg) 25 mg PO BID [facility] Last Admin: 12/05/17 17:35 Dose: 25 mg Famotidine (Pepcid) 20 mg PO HS [facility] Last Admin: 12/05/17 22:07 Dose: 20 mg Finasteride (Proscar) 5 mg PO DAILY [facility] Last Admin: 12/05/17 09:21 Dose: 5 mg Furosemide (Lasix) 20 mg IVP DAILY [facility] Last Admin: 12/05/17 09:20 Dose: 20 mg Milrinone Lactate/Dextrose (Primacor 20mg/100ml D5w) 100 mls @ 2.381 mls/hr IV .Q24H PRN; Protocol; 0.125 MCG/KG/MIN PRN Reason: TITRATE PER MD ORDER Last Admin: 12/05/17 06:22 Dose: 0.125 mcg/kg/min, 2.381 mls/hr Ceftazidime/Avibactam 0.94 gm/ (Sodium Chloride) 50 mls @ 25 mls/hr IV Q12 [facility] Last Admin: 12/05/17 22:07 Dose: 25 mls/hr Insulin Detemir (Levemir) 10 unit SC BID [facility] Last Admin: 12/05/17 17:37 Dose: 10 unit Insulin Human Regular (Humulin R Low) 0 units SC ACHS [facility] PRN Reason: Protocol Last Admin: 12/05/17 22:51 Dose: Not Given Levalbuterol HCl (Xopenex) 0.63 mg IH TIDRESP [facility] Last Admin: 12/05/17 19:44 Dose: 0.63 mg Lidocaine HCl (Lidocaine 2% Viscous) 15 ml MM TID [facility] Last Admin: 12/05/17 17:40 Dose: Not Given Magnesium Oxide (Mag-Ox) 400 mg PO BID [facility] Last Admin: 12/05/17 17:36 Dose: 400 mg Metolazone (Zaroxolyn) 2.5 mg PO DAILY [facility] Last Admin: 12/05/17 09:21 Dose: 2.5 mg Multivitamins (Thera Tab) 1 tab PO 0800 [facility] Last Admin: 12/05/17 07:58 Dose: 1 tab Pantoprazole Sodium (Protonix Ec Tab) 40 mg PO DAILY [facility] Last Admin: 12/05/17 09:21 Dose: 40 mg Polysaccharide Iron Complex (Ferrex-150) 150 mg PO DAILY [facility] Last Admin: 12/05/17 09:19 Dose: 150 mg Sodium Bicarbonate (Sodium Bicarbonate Tab) 650 mg PO DAILY [facility] Last Admin: 12/05/17 09:21 Dose: 650 mg Tamsulosin HCl (Flomax) 0.4 mg PO DAILY [facility] Last Admin: 12/05/17 09:20 Dose: 0.4 mg Warfarin Sodium (Coumadin) 2 mg PO 1800 [facility] PRN Reason: Protocol Last Admin: 12/05/17 17:36 Dose: 2 mg - Labs Labs: 12/05/17 09:25 12/02/17 06:20 PT 26.1 SECONDS (9.4-12.5) H 12/05/17 07:30 INR 2.23 (0.93-1.08) H 05/21/18 07:30 - Constitutional Appears: No Acute Distress - Head Exam Head Exam: NORMOCEPHALIC - Eye Exam Eye Exam: Normal appearance - ENT Exam ENT Exam: Mucous Membranes Moist - Respiratory Exam Respiratory Exam: Decreased Breath Sounds, Rhonchi, NORMAL BREATHING PATTERN - Cardiovascular Exam Cardiovascular Exam: +S1, +S2 Additional comments: AICD left subclavian barry cath right subclavian - GI/Abdominal Exam GI & Abdominal Exam: Soft, Normal Bowel Sounds Additional comments: colostomy - Extremities Exam Extremities Exam: Normal Capillary Refill - Neurological Exam Neurological Exam: Alert, Awake, Oriented x3 - Psychiatric Exam Psychiatric exam: Normal Affect, Normal Mood - Skin Skin Exam: Intact, Normal Color, Warm Assessment and Plan - Assessment and Plan (Free Text) Assessment: A 72 year old male who came in to the ER due to complaints of abdominal pain and melena in colostomy. Recently admiited 11/02 due to GI bleed.History of Lung cancer with radiation, chronic kidney disease, AAA (stent) severe cardiomyopathy with EF 10-15%, on home Milrinone, CVA, paroxysmal atrial fibrillation on coumadin, IDDM, COPD, CAD s/p 3 stents, SVT, AICD, partial colectomy and colosotomy,, ESBL E. coli bactermiea, and endocarditis, HCAP, BPH , anemia. Speaks polish.understands simple grenadian. Plan: Refusing at times to have vital signs taken To complete antibiotic therapy then discharge home Still on primacor drip via barry cath. Cardiac status stable Palliative care consulted,awaiting family decision On Doxycycline and Meropenem for pneumonia Hemoglobin and hematocrit stable post transfusion of 2 units PRBC On Amiodarone 200 mg daily, Lipitor 10 mg daily, Coreg 25 mg BID, Lasix 20 mg daily, Milrinone drip,Zaroxylyn 2.5 mg daily, Continue current medications Continue current treatment Discharge planning Will follow up Plan and treatment discussed with Dr. Mathews
[2017-12-06 07:13] LABS: INR 2.31 (0.93-1.08)
[2017-12-06] MEDS: Levalbuterol 0.63 MG/3 ML Inhal Soln UD IH SCH ×3 (07:17→20:01)
[2017-12-06] MEDS: Acetylcysteine 20% Inhal Soln (4ml) INH SCH ×3 (07:17→20:00)
[2017-12-06 07:39] LABS: ALB/GLOB RATIO 0.9 (1.1-1.8); ALBUMIN 3.4 g/dL (3.0-4.8); CALCIUM 9.3 mg/dL (8.4-10.5)
[2017-12-06] MEDS: Insulin Reg-LOW-Coverage SC SCH ×3 (08:27→16:35)
--- NOTE | 2017-12-06 08:48 | PN ---
DATE: 12/05/2017 SUBJECTIVE: The patient is seen lying in bed. He is awake, he is alert. PHYSICAL EXAMINATION: GENERAL: Elderly male lying in bed. VITAL SIGNS: Blood pressure 130/71, heart rate 71, respiratory rate 18, temperature 98. HEENT: Normocephalic, atraumatic, positive pallor. NECK: Supple, no JVD. LUNGS: Bilateral equal entry, bilateral equal expansion. CARDIAC: S1 and S2, regular rate and rhythm, no murmur, no rub. ABDOMEN: Soft, nondistended, positive colostomy, bowel sounds present. EXTREMITIES: No lower extremity edema. LABORATORY DATA: WBC 9, hemoglobin 9, hematocrit 28, platelets 335. No chemistry. MEDICATIONS: List reviewed. ASSESSMENT: 1. Stable chronic kidney disease stage 4, mild prerenal azotemia. 2. Congestive heart failure, compensated. 3. Multidrug resistant urinary tract infection. 4. [id number] diabetes mellitus. 5. Hypertension. PLAN: 1. Continue current management. 2. Continue antibiotics as per ID recommendations. 3. Monitor fingersticks. 4. Stable from the renal standpoint. Kaylen Crump MD
[2017-12-06] MEDS: Iron Complex Polysacch 150mg Cap PO SCH (09:08)
[2017-12-06] MEDS: Insulin Detemir 100 units/ml Vial (Levemir) SC SCH ×2 (09:09→17:23)
[2017-12-06] MEDS: Multivitamin Therapeutic Tab PO SCH (09:10)
[2017-12-06] MEDS: Magnesium Oxide 400 mg Tab UD PO SCH ×2 (09:10→17:24)
[2017-12-06] MEDS: metOLazone 2.5 MG TAB PO SCH (09:10)
[2017-12-06] MEDS: Pantoprazole 40 mg EC Tab PO SCH (09:10)
[2017-12-06] MEDS ORDERED: Potassium Chloride 20 mEq ER Tab PO ONE (10:00)
--- NOTE | 2017-12-06 10:44 | PN ---
DATE: 12/05/2017 SUBJECTIVE: The patient is comfortable. No distress. No nausea. No vomiting. Receiving his IV Fortaz plus avibactam, which is every 12 hours. He seems doing well. No fever. No nausea. No vomiting. He is alert, awake and oriented x3. PHYSICAL EXAMINATION: On 12/05/2017 is as follows, VITAL SIGNS: Temperature 98.6, heart rate 70, blood pressure is 116/75, respirations 16, saturations 97%. HEAD AND NECK: Normal. No JVD. No thyromegaly. CHEST: Clear. Good air entry bilaterally. CARDIAC: First sound and second sound normal. Systolic murmur. ABDOMEN: Soft, nontender. Colostomy bag is intact. No bleeding. EXTREMITIES: Lower extremities, no edema. NEUROLOGIC: Generalized weakness plus both lower extremity is 0/5. The patient also has left side hemiparesis on the upper extremity. LABORATORY DATA: His laboratory study is the following. His white count 9.3, hemoglobin 9.3, hematocrit 28.2, platelets 335. Chemistry shows blood sugar in the range of 100 and sometimes blood sugar go down. We will hold off on insulin. We may need to decrease the insulin dosage on discharge. The patient has poor appetite. IMPRESSION AND PLAN: 1. Nosocomial recurrent pneumonia. We will continue IV antibiotic. Tomorrow is the last dose for IV antibiotic before will be discharged home. Continue nebulizer treatment. 2. Coronary artery disease, ischemic cardiomyopathy, chronic atrial fibrillations. Continue Coumadin low dose. We will monitor his PT/INR as outpatient. For his cardiomyopathy, we will continue IV milrinone. 3. Chronic anemia, stable. Status post transfusion, IV iron infusions. Stable H&H. We will continue Coumadin. Discussed with the nurse practitioners, Cardiology and we will follow up on that. 4. Insulin-dependent diabetes. Continue Levemir. We may need to decrease the Levemir more. Currently, he is to continue on it b.i.d. We may need to decrease it on discharge to 10 units once a day. 5. Lung cancer. Liver metastasis. Poor prognosis. The patient should be comfort care, palliative care. Discussed with the family about code status. Not clear what they do and they want to follow day by day. We will continue current management. Dexter Palacios MD [facility] # [id number]
--- NOTE | 2017-12-06 12:03 | CP.PCM.PN ---
Subjective - Date & Time of Evaluation Date of Evaluation: 12/06/17 Time of Evaluation: 11:20 - Subjective Subjective: Hematology Oncology Progress Note Dr. Samson Patient was seen and examined at bedside. Patient at bedside. As per nursing staff, no acute or adverse events overnight. Patient has been tolerating oral intake and has soft brown stool in colostomy. Patient denied fever, chills, chest pains, abdominal pains, nausea,vomiting, dysuria or diarrhea. Objective - Vital Signs/Intake and Output Vital Signs (last 24 hours): Temp Pulse Resp BP Pulse Ox 98.2 F 69 20 130/70 96 12/06/17 06:00 12/06/17 06:00 12/06/17 06:00 12/06/17 09:09 12/06/17 06:00 Intake and Output: 12/06/17 12/06/17 06:59 18:59 Intake Total 277 Balance 277 - Medications Medications: Current Medications Acetylcysteine (Acetylcysteine 20%) 3 ml INH TID [facility] Last Admin: 12/06/17 07:17 Dose: 3 ml Amiodarone HCl (Cordarone) 200 mg PO DAILY [facility] Last Admin: 12/06/17 09:07 Dose: 200 mg Atorvastatin Calcium (Lipitor) 10 mg PO DAILY [facility] Last Admin: 12/06/17 09:10 Dose: 10 mg Calcium Acetate (Phoslo) 667 mg PO WM [facility] Last Admin: 12/06/17 09:10 Dose: 667 mg Carvedilol (Coreg) 25 mg PO BID [facility] Last Admin: 12/06/17 09:08 Dose: 25 mg Famotidine (Pepcid) 20 mg PO HS [facility] Last Admin: 12/05/17 22:07 Dose: 20 mg Finasteride (Proscar) 5 mg PO DAILY [facility] Last Admin: 12/06/17 09:10 Dose: 5 mg Furosemide (Lasix) 20 mg IVP DAILY [facility] Last Admin: 12/06/17 09:09 Dose: 20 mg Milrinone Lactate/Dextrose (Primacor 20mg/100ml D5w) 100 mls @ 2.381 mls/hr IV .Q24H PRN; Protocol; 0.125 MCG/KG/MIN PRN Reason: TITRATE PER MD ORDER Last Admin: 12/05/17 06:22 Dose: 0.125 mcg/kg/min, 2.381 mls/hr Ceftazidime/Avibactam 0.94 gm/ (Sodium Chloride) 50 mls @ 25 mls/hr IV Q12 [facility] Last Admin: 12/06/17 10:14 Dose: 25 mls/hr Insulin Detemir (Levemir) 10 unit SC BID [facility] Last Admin: 12/06/17 09:09 Dose: Not Given Insulin Human Regular (Humulin R Low) 0 units SC ACHS [facility] PRN Reason: Protocol Last Admin: 12/06/17 11:20 Dose: Not Given Levalbuterol HCl (Xopenex) 0.63 mg IH TIDRESP [facility] Last Admin: 12/06/17 07:17 Dose: 0.63 mg Lidocaine HCl (Lidocaine 2% Viscous) 15 ml MM TID [facility] Last Admin: 12/06/17 09:09 Dose: 15 ml Magnesium Oxide (Mag-Ox) 400 mg PO BID [facility] Last Admin: 12/06/17 09:10 Dose: 400 mg Metolazone (Zaroxolyn) 2.5 mg PO DAILY [facility] Last Admin: 12/06/17 09:10 Dose: 2.5 mg Multivitamins (Thera Tab) 1 tab PO 0800 [facility] Last Admin: 12/06/17 09:10 Dose: 1 tab Pantoprazole Sodium (Protonix Ec Tab) 40 mg PO DAILY [facility] Last Admin: 12/06/17 09:10 Dose: 40 mg Polysaccharide Iron Complex (Ferrex-150) 150 mg PO DAILY [facility] Last Admin: 12/06/17 09:08 Dose: 150 mg Sodium Bicarbonate (Sodium Bicarbonate Tab) 650 mg PO DAILY [facility] Last Admin: 12/06/17 09:10 Dose: 650 mg Tamsulosin HCl (Flomax) 0.4 mg PO DAILY [facility] Last Admin: 12/06/17 09:09 Dose: 0.4 mg Warfarin Sodium (Coumadin) 1.5 mg PO 1800 [facility] PRN Reason: Protocol - Labs Labs: 12/05/17 09:25 12/06/17 06:15 PT 27.0 SECONDS (9.4-12.5) H 12/06/17 06:15 INR 2.31 (0.93-1.08) H 12/06/17 06:15 - Constitutional Appears: No Acute Distress - Head Exam Head Exam: ATRAUMATIC, NORMAL INSPECTION, NORMOCEPHALIC - Eye Exam Eye Exam: EOMI, Normal appearance, PERRL Pupil Exam: NORMAL ACCOMODATION, PERRL - ENT Exam ENT Exam: Mucous Membranes Moist, Normal Exam - Respiratory Exam Respiratory Exam: Clear to Ausculation Bilateral, NORMAL BREATHING PATTERN - Cardiovascular Exam Cardiovascular Exam: REGULAR RHYTHM, +S1, +S2. absent: Murmur - GI/Abdominal Exam GI & Abdominal Exam: Soft, Normal Bowel Sounds. absent: Tenderness Additional comments: + colostomy, brown soft stool, stoma pink - Extremities Exam Extremities Exam: Full ROM, Normal Capillary Refill, Normal Inspection. absent : Joint Swelling, Pedal Edema - Back Exam Back Exam: NORMAL INSPECTION - Neurological Exam Neurological Exam: Alert, Awake, CN II-XII Intact, Oriented x3 - Psychiatric Exam Psychiatric exam: Normal Affect, Normal Mood - Skin Skin Exam: Dry, Intact, Normal Color, Warm Assessment and Plan - Assessment and Plan (Free Text) Assessment: 72 Albanian speaking M with past medical history of Lung ca( radiation), CKD, AAA (stent) severe cariomyopathy with EF 10-15%, CVA, paroxysmal atrial fibrillation on coumadin, IDDM, COPD, CAD s/p 3 stents,SVT, AICD, partial colectomy and colosotomy, milrinone drip 232 mg/290 D5W infusing from home, ESBL E. coli bactermiea, and endocarditis presented to [facility] with complaints of abdominal pain and blood noted in his colostomy. New lesion found in rt lobe of liver likely metastatic, hx of lung ca, very poor performance score poor prognosis. Rosario Augustine, Palliative care, consulted, further goals of care planning discussed with and son in a patient-centered manner, and all options provided to patient and family. Benefits and risks of interventions discussed with family and all parties conferred understanding. Another family meeting with planned for today. As per [employer], pt to subsequently be discharged to home with services.
[2017-12-06 14:45] VITALS: BP 113/77; PULSE 72; RESP 18; TEMP 98; O2SAT 97
--- NOTE | 2017-12-06 15:00 | PN ---
DATE: 12/06/2017 SUBJECTIVE: The patient is currently seen with his in the room. He appears to be comfortable lying supine in bed. He continues to receive Primacor via IV infusion for his severe cardiomyopathy. His BUN and creatinine are at the lowest levels. MEDICATIONS: Medication list reviewed. The patient is on acetylcysteine, antibiotics ceftazidime/avibactam, amiloride, Coreg, Coumadin, Ferrex, Flomax, insulin, IV Lasix, Levemir, lidocaine, Lipitor, mag oxide, Pepcid, PhosLo, Primacor drip, Proscar, Protonix, sodium bicarbonate, Thera-Tabs, Xopenex, and Zaroxolyn. OBJECTIVE: INTAKE/OUTPUT: Intake is 1020, output is 400. Intake for the last 24 hours was 637, output not charted. VITAL SIGNS: Blood pressure is 130/70 with a pulse of 69, respiratory rate of 20 and a temperature of 98.2. HEENT: Shows him to be normocephalic, atraumatic. Conjunctivae remain pale. Sclerae nonicteric. NECK: Supple. No neck vein distention. CHEST: Clear to auscultation and percussion. No rales, rhonchi or wheezing. CARDIOVASCULAR: Shows a regular rate and rhythm with MR/TR/AI. Positive AICD, positive permanent pacemaker. Positive port in the chest wall. No S3, no S4, no rub. ABDOMEN: Soft. Bowel sounds normal. Positive colostomy. No bleeding. EXTREMITIES: Show no lower extremity cyanosis, clubbing or edema. LABORATORY DATA AND IMAGING: CBC: White blood cell count 9.3, hemoglobin 9.3 with a platelet count of 335,000. Chemistries: BUN 43 with a creatinine of 3.1, down from 74-43, down from 3.5-3.1. The patient is at his best levels. Microbiology: Urine cultures were positive for Klebsiella and the patient is completing a course of antibiotic therapy. ASSESSMENT: 1. Chronic kidney disease stage IV, appears to be stable. Prerenal azotemia is improved. The patient will continue low-dose p.o. Lasix therapy along with metolazone on an as-needed basis. I will continue IV Primacor to improve cardiac output and improve renal perfusion. 2. Multidrug resistant urinary tract infection with Klebsiella. The patient is completing a course of antibiotic therapy. 3. History of severe cardiomyopathy status post automatic implantable cardioverter-defibrillator, status post permanent pacemaker. Ejection fraction is 15% with valvular heart disease, MR/TR/AI. 4. History of noninsulin-dependent diabetes mellitus. The patient is currently on insulin. Sugars are controlled. 5. History of secondary hyperparathyroidism. Last phosphorus level was 4.4. 6. History of anemia. The patient came in with bleeding around his colostomy site. He is status post transfusion of 2 units of packed red blood cells. Hemoglobin is stable in the 9-10 range. The patient will continue Aranesp and continue iron therapy. 7. History of benign prostatic hypertrophy, currently stable on medical therapy. 8. History of partial bowel resection with colostomy appears to be stable. No further bleeding. 9. History of hyperlipidemia, currently on diet and statin therapy. PLAN: 1. Discussed with the patient's . It appears that the patient will likely be discharged home later today as he has completed his course of antibiotic therapy. 2. Continue IV Primacor at home through the right chest wall port. 3. Continue diuretic therapy. 4. Explained to the patient's that we will tolerate perhaps a higher level of BUN and creatinine to maintain and keep him in a euvolemic state. 5. The patient's inquired about following up with us in the office. I did explain to her that he is in the hospital, so frequently it will probably be more difficult to bring him to the office, so we essentially do see the patient every 1-2 months. Mio Stoddard MD
[2017-12-06] MEDS: Milrinone 20mg/100ml D5W 100 ML IV PRN (16:46)
--- NOTE | 2017-12-06 19:19 | PN ---
DATE: 12/06/2017 SUBJECTIVE: The patient is in bed in no acute distress, nontoxic. PHYSICAL EXAMINATION: VITAL SIGNS: Temperature is 98, blood pressure is 130/70, respiratory rate of 20, heart rate of 70. HEENT: Unremarkable. NECK: Supple. LUNGS: Have decreased breath sounds. HEART: Normal S1, S2. ABDOMEN: Soft, nontender. No organomegaly. No rebound. No guarding. No masses. LABORATORY DATA: Laboratory examination reveals a white count of 9.3, hemoglobin of 9, platelets of 335. Chemistries reveals a BUN of 43, creatinine of 3.1. Procalcitonin is 0.17 and urinalysis is noted and serology is negative. Microbiology reveals the urine culture has gram-negative avis and earlier urine culture has Klebsiella pneumonia, which is ESBL multidrug resistant. ESBL Klebsiella is resistant to meropenem as per Dr. Elkins's note. ASSESSMENT AND PLAN: He is a 72-year-old male with complicated urinary tract infection and a Grimaldo catheter, multidrug resistant, extended-spectrum beta-lactamase producing Klebsiella on top of healthcare-associated pneumonia and with chronic congestive heart failure and resistant to meropenem in a patient with chronic failure on day #5 of Avycaz with complete 5 to 7 days and the patient is tolerating the antibiotics well. Case discussed with nursing staff at length and the patient's and the patient. Dr. Palacios's note is reviewed. Walt Conner MD
--- NOTE | 2017-12-07 01:34 | PN ---
DATE: 12/06/2017 PULMONARY PROGRESS NOTE REFERRING PHYSICIAN: Dexter Palacios MD SUBJECTIVE: He is lying in the bed at 45 degrees on Primacor drip. is bedside. Arrangement is being made to discharge him. His breathing is much better, has occasional cough. No nausea, no vomiting, and no diarrhea. Ileostomy working well. No leg swelling. OBJECTIVE: GENERAL: In no acute distress. VITAL SIGNS: Temperature is 98, heart rate is 69, respiratory rate is 20, blood pressure 130/78, pulse ox 96% on nasal cannula. HEENT: Moist mucous membrane. Crowded airway. NECK: Supple. No JVD. LUNGS: Have fair airflow with rhonchi. HEART: S1 and S2. ABDOMEN: Soft. Ileostomy bag working well. EXTREMITIES: There is no edema. NEUROLOGIC: Awake, alert, and follows simple commands. MEDICATIONS: He is on Mucomyst 3 mL inhaled three times a day, also ceftazidime with avibactam IV every 12 hours, amiodarone 200 mg daily, Coreg 25 mg twice a day, Coumadin 1.5 mg daily, Ferrex 150 mg daily, Flomax 0.4 mg daily, insulin coverage, Lasix 20 mg daily, Levemir 10 units subcu twice a day, Lipitor 10 mg daily, mag oxide 400 mg daily, Pepcid 20 mg daily, PhosLo with meals, Primacor IV drip, Proscar 5 mg daily, Protonix 40 mg daily, bicarbonate daily, multivitamins daily, Xopenex inhaled three times a day, Zaroxolyn 2.5 mg daily. LABORATORY DATA: Review shows INR 2.31. Sodium 136, potassium 3.4, chloride 96, bicarbonate 27, BUN 43, creatinine 3.1, glucose 223, calcium 9.3, AST 39, ALT 24, alk phos is 167, albumin is 3.4. Urine culture has Klebsiella pneumoniae. IMPRESSION AND PLAN: Severe cardiomyopathy, Primacor dependent, chronic obstructive lung disease, history of automatic implantable cardioverter-defibrillator; lung cancer; history of radiation therapy; probably have metastasis to the liver; history of intestinal obstruction, has an ileostomy bag; recurrent urinary tract infection with extended-spectrum beta-lactamases organism. Spoke to patient's at bedside. All the questions answered. Pulmonary point of view, doing okay. May continue nebulizer treatment at home, pulmonary toilet, aspiration precaution, gastric prophylaxis, anticoagulation. He will be follow up with Dr. Palacios as outpatient. Thank you and we will follow with you. Arabella Alva MD
--- NOTE | 2017-12-08 06:40 | DS ---
HISTORY OF PRESENT ILLNESS: The patient in the bed. The nurse is around him. He is being cleaned before discharging home. He is comfortable, in no distress and seems happy going home. There are no other complaints. explained medical conditions and the medications need to be continued on discharge. PHYSICAL EXAMINATION: On discharge is as follows, which is 12/06/2017. VITAL SIGNS: Temperature 98.2, heart rate is 69, blood pressure 130/78, respirations 20, saturations 97% on room air. HEAD AND NECK: Normal. No JVD. No thyromegaly. CHEST: Clear, bilaterally. CARDIAC: First sound and second sound normal; murmur. ABDOMEN: Soft. Colostomy is clean. No active bleeding and soft, nontender. EXTREMITIES: No edema. NEUROLOGIC: The patient is bedridden, has lower extremity weakness, general weakness and left hemiparesis. LABORATORY STUDIES: Last laboratory studies shows white count of 9.3, hemoglobin of 9.3, hematocrit 28.2 and platelets 335. Chemistries; sodium 136, potassium 3.4, chloride 96, bicarb 27, BUN 43, creatinine 3.1. Blood sugar was 48 and alkaline phosphatase was 167. Liver function test was normal. The patient has been in the hospital, had a CT abdomen and pelvis, shows liver metastasis, has hemoglobin was low in the range of 6, initially 6.5 and was given two units of blood transfusion, IV iron and seen by Hematology/Oncology consults and the patient also seen by GI consult. The patient's clinical condition stable after transfusions. No active bleeding. Coumadin was resumed and monitor his H&H, seems stable on Coumadin. We will try to keep his INR 1.8, it is 2 right now. Last laboratory shows INR of 2.31. PT 27.0. We will give Coumadin. He is getting Coumadin here 2 mg, we will decrease the Coumadin a little bit to 1.5 mg every day and we will monitor his PT/INR as outpatient. Discussed the family about liver mets and options for him. He had received radiation therapy in the past for his lung CA; however he did not complete it and at this time, chemotherapy for him may make him sicker and may cause worsening his clinical conditions. Discussed with the family about code status, palliative care still, they still need everything to be done, there is no DNR decision reached yet and the patient will be discharged home to be followed as outpatient. The patient advised to take Percocet 5/325 mg one every 6 hours p.r.n. for pain in the abdomen, right upper quadrant pain plus he advised Coumadin 1.5 mg for atrial fibrillation and also decrease the insulin, the Levemir 15 units because the patient is not eating properly as before. Otherwise, maintain same regimen of milrinone IV infusions, Zaroxolyn 2.5 mg and Lasix 20 mg p.o. daily. Continue carvedilol, continue Lipitor, aspirin, amiodarone 200 mg daily for atrial fibrillation. Continue Flomax, Proscar and also nebulizer treatment at home. The patient also getting Protonix 40, Pepcid 20 at home. We will continue the same regimen. We will follow up his laboratory as outpatient. Prescription was called into the pharmacist. DISCHARGE DIAGNOSES: 1. Acute symptomatic anemia. 2. Liver metastasis from lung carcinoma primary. 3. Chronic obstructive pulmonary disease, asthma. 4. Ischemic cardiomyopathy, severe with ICD on IV milrinone and amiodarone and Coreg. 5. Chronic renal failure on PhosLo 667 mg with meals three times a day. 6. Gastritis. History of gastritis in the past. Continue Pepcid and Protonix. 7. Cerebrovascular accident and generalized weakness, continue supportive care. 8. History of abdominal aortic aneurysm, chronic atrial fibrillations, anemia, generalized weakness. Continue Protonix, Pepcid, iron p.o. and follow up as outpatient. Dexter Palacios MD
== END 2017-12-06 22:05 | disposition home or self-care (01) | DRG 435 ==
LOC: ED 09:26 → ERH 15:37 → 2RNO 20:14 → 5RNO 11-30 19:07
PROVIDERS: ADMIT Internal Medicine; ATTEND Internal Medicine
PROC: 30233N1 Transfusion of Nonautologous Red Blood Cells into Peripheral Vein, Percutaneous Approach (ICD-10-PCS; principal; 2017-11-28)
DX: C78.7 Secondary malignant neoplasm of liver and intrahepatic bile duct (principal); J18.1 Lobar pneumonia, unspecified organism; C34.92 Malignant neoplasm of unspecified part of left bronchus or lung; N39.0 Urinary tract infection, site not specified; N18.4 Chronic kidney disease, stage 4 (severe); N25.81 Secondary hyperparathyroidism of renal origin; J44.1 Chronic obstructive pulmonary disease with (acute) exacerbation; K92.1 Melena; I13.0 Hypertensive heart and chronic kidney disease with heart failure and stage 1 through stage 4 chronic kidney disease, or unspecified chronic kidney disease; J44.0 Chronic obstructive pulmonary disease with (acute) lower respiratory infection; N17.9 Acute kidney failure, unspecified; I69.354 Hemiplegia and hemiparesis following cerebral infarction affecting left non-dominant side; I50.9 Heart failure, unspecified; N40.0 Benign prostatic hyperplasia without lower urinary tract symptoms; B96.1 Klebsiella pneumoniae [K. pneumoniae] as the cause of diseases classified elsewhere; D63.1 Anemia in chronic kidney disease; E78.00 Pure hypercholesterolemia, unspecified; E78.5 Hyperlipidemia, unspecified; D50.9 Iron deficiency anemia, unspecified; I25.5 Ischemic cardiomyopathy; K21.9 Gastro-esophageal reflux disease without esophagitis; I71.4 Abdominal aortic aneurysm, without rupture; I48.0 Paroxysmal atrial fibrillation; I25.10 Atherosclerotic heart disease of native coronary artery without angina pectoris; I27.20 Pulmonary hypertension, unspecified; E11.22 Type 2 diabetes mellitus with diabetic chronic kidney disease; F03.90 Unspecified dementia, unspecified severity, without behavioral disturbance, psychotic disturbance, mood disturbance, and anxiety; E11.51 Type 2 diabetes mellitus with diabetic peripheral angiopathy without gangrene; E11.649 Type 2 diabetes mellitus with hypoglycemia without coma; I08.3 Combined rheumatic disorders of mitral, aortic and tricuspid valves; Y95 Nosocomial condition; Z16.24 Resistance to multiple antibiotics; Z79.4 Long term (current) use of insulin; Z79.01 Long term (current) use of anticoagulants; Z93.3 Colostomy status; Z95.810 Presence of automatic (implantable) cardiac defibrillator; Z95.1 Presence of aortocoronary bypass graft; Z95.5 Presence of coronary angioplasty implant and graft; Z74.01 Bed confinement status; Z92.3 Personal history of irradiation; Z90.49 Acquired absence of other specified parts of digestive tract; Z95.828 Presence of other vascular implants and grafts

== ENCOUNTER 2018-02-04 18:50 | Inpatient (IN) | payer MEDICARE, MEDICAID ==
[2018-02-04 18:51] VITALS: BMI 25.6
[2018-02-04 19:33] LABS: HEMOGLOBIN 7.8 g/dL (14.0-18.0); MEAN CORPUSCULAR HEMOGLOBIN 26.5 pg (25.0-35.0); MEAN CORPUSCULAR HGB CONC 32.4 g/dl (31.0-37.0); MEAN PLATELET VOLUME 9.2 fl (7.0-11.0); RBC 2.94 10^6/uL (3.5-6.1); WHITE BLOOD COUNT 11.7 10^3/ul (4.5-11.0)
[2018-02-04] MEDS ORDERED: Sodium Chloride 0.9% 1,000 ML IV STA (19:33)
[2018-02-04] MEDS ORDERED: Sodium Chloride 0.9% 1,000 ML IV SCH ×3 (19:45→23:25)
[2018-02-04 19:58] LABS: ALB/GLOB RATIO 0.9 (1.1-1.8); ALBUMIN 3.6 g/dL (3.0-4.8); CALCIUM 9.8 mg/dL (8.4-10.5)
[2018-02-04 20:07] LABS: VENOUS BLOOD GAS BASE EXCESS -8.1 mmol/L (0.0-2.0); VENOUS BLOOD GAS PO2 129 mm/Hg (30-55); VENOUS BLOOD PH 7.32 (7.32-7.43)
[2018-02-04] MEDS ORDERED: Sodium Bicarbonate (8.4%) 50 Meq Syringe IVP ONE (20:08)
[2018-02-04] MEDS ORDERED: Dextrose 50% SYRINGE Inj (50 ml) IVP STA (20:08)
[2018-02-04] MEDS ORDERED: Insulin Regular 1 UNITS/0.01 ML ML SC ONE (20:10)
[2018-02-04] MEDS ORDERED: Azithromycin 500MG/NS 250ml 500 MG/250 ML BAG IVPB STA (20:12)
[2018-02-04] MEDS ORDERED: cefTRIAXone 1 gm 1 GM/100 ML BAG IVPB STA (20:12)
--- NOTE | 2018-02-04 20:14 | ED PDOC ---
Arrival/HPI - General Chief Complaint: Altered Mental Status Time Seen by Provider: 02/04/18 19:24 Historian: Patient - Critical Care Critical Care Minutes: 45 minutes - History of Present Illness Narrative History of Present Illness (Text): 02/04/18 20:26 A 72 year old male, whose past medical history includes CVA, lung CA (radiation) , Atrial Fibrillation, CAD, CHF, endocarditis, AAA, AVR, angina pectoris, coronary stents x 3m port to right upper chest, diabetes type 2, metastatic liver disease and colostomy, accompanies with his , presents to the emergency department complaining of hyperglycemia and hypotension. Patient's reports symptoms began today and became concerned, bringing in patient to the ER for evaluation. Patient is not communicative compared to last time patient was here in the ER 11/28/2017. Patient's denies patient of any other complaints at this time. PMD: Dr. Palacios Past Medical History - Provider Review Nursing Documentation Reviewed: Yes - Infectious Disease Hx of Infectious Diseases: None - Tetanus Immunization Tetanus Immunization: Unknown - Cardiac Hx Cardiac Disorders: Yes (CAD,ANGINA PECTORIS,ENDOCARDITIS,AAA,STENT,AVR) Hx Cardiac Arrhythmia: Yes (AFIB) Other/Comment: milrinone drip 232 mg/290 D5W infusing from home - Pulmonary Hx Respiratory Disorders: Yes (LUNG CA-RADIATION) - Neurological Hx Neurological Disorder: Yes HX Cerebrovascular Accident: Yes Hx Dizziness: Yes - HEENT Hx HEENT Disorder: Yes - Renal Hx Renal Disorder: Yes Hx Renal Failure: Yes - Endocrine/Metabolic Hx Endocrine Disorders: Yes Hx Diabetes Mellitus Type 2: Yes - Hematological/Oncological Hx Blood Disorders: Yes Hx Anemia: Yes - Integumentary Other/Comment: multiple moles around neck, red raised b/l groin rash , multiple skin discolorations to both arms. PORT TO RIGHT CHEST WALL 09-26-17 - Musculoskeletal/Rheumatological Hx Musculoskeletal Disorders: Yes Hx Falls: Yes - Gastrointestinal Hx Colostomy: Yes - Genitourinary/Gynecological Hx Prostate Problems: Yes (BPH WITH PROSTATE SX) Other/Comment: #16 2wf - Psychiatric Hx Depression: Yes Hx Substance Use: No - Surgical History Hx Coronary Stent: Yes (x3) Other/Comment: port rt upper chest - Anesthesia Hx Anesthesia: Yes Hx Anesthesia Reactions: No Hx Malignant Hyperthermia: No - Suicidal Assessment Feels Threatened In Home Enviroment: No Family/Social History - Physician Review Nursing Documentation Reviewed: Yes Family/Social History: No Known Family HX Smoking Status: Never Smoked Hx Alcohol Use: No Hx Substance Use: No Hx Substance Use Treatment: No Allergies/Home Meds Allergies/Adverse Reactions: Allergies No Known Allergies Allergy (Verified 10/03/17 12:09) Home Medications: Home Meds Medication Instructions Recorded Confirmed Pantoprazole Sodium [Protonix] 40 mg PO DAILY 08/12/17 11/28/17 Finasteride [Proscar] 5 mg PO DAILY 08/26/17 11/28/17 Atorvastatin [Lipitor] 10 mg PO DAILY 09/09/17 11/28/17 Ferrous Sulfate [Feosol] 325 mg PO BID 09/09/17 11/28/17 Sodium Bicarbonate Tab 650 mg PO TID 09/09/17 11/28/17 Famotidine [Pepcid] 20 mg PO HS 11/28/17 11/28/17 Furosemide [Lasix] 20 mg PO DAILY 11/28/17 11/28/17 metOLazone [Zaroxolyn] 2.5 mg PO DAILY 11/28/17 11/28/17 Review of Systems - Physician Review All systems were reviewed & negative as marked: Yes - Review of Systems Constitutional: absent: Fevers, Night Sweats Respiratory: absent: SOB Cardiovascular: absent: Chest Pain Gastrointestinal: absent: Abdominal Pain, Diarrhea, Nausea, Vomiting Genitourinary Male: absent: Dysuria Musculoskeletal: absent: Back Pain, Neck Pain Neurological: absent: Headache, Dizziness Physical Exam Vital Signs Reviewed: Yes Vital Signs Temp Pulse Resp BP Pulse Ox 02/04/18 23:45 113 H 18 96/59 L 97 02/04/18 23:08 115 H 18 103/67 97 02/04/18 22:35 117 H 97/66 L 02/04/18 21:16 125 H 18 112/73 97 02/04/18 19:44 98.1 F 109 H 18 103/64 97 02/04/18 19:14 136 H 19 86/58 L 88 L 02/04/18 19:12 136 H 20 86/58 L 88 L Temperature: Afebrile Blood Pressure: Normal Pulse: Regular Respiratory Rate: Normal Appearance: Positive for: Well-Appearing, Non-Toxic, Comfortable Pain Distress: None Mental Status: Positive for: Alert and Oriented X 3, other (dehydrated) - Systems Exam Head: Present: Atraumatic, Normocephalic Pupils: Present: PERRL Extroacular Muscles: Present: EOMI Conjunctiva: Present: Normal Mouth: Present: Dry Neck: Present: Normal Range of Motion. No: JVD Respiratory/Chest: Present: Rales, Rhonchi. No: Good Air Exchange Cardiovascular: Present: Regular Rate and Rhythm, Normal S1, S2. No: Murmurs Abdomen: No: Tenderness, Distention, Peritoneal Signs, Rebound, Guarding Back: Present: Normal Inspection Upper Extremity: Present: Normal Inspection. No: Cyanosis, Edema Lower Extremity: Present: Normal Inspection. No: Edema Neurological: Present: GCS=15, CN II-XII Intact, Speech Normal Skin: Present: Warm, Dry, Normal Color. No: Rashes Psychiatric: Present: Alert, Oriented x 3, Normal Insight, Normal Concentration Medical Decision Making ED Course and Treatment: 02/04/18 20:32 Impression: 72 year old male with hyperglycemia and hypotension. Plan: -- Chest X-ray -- Labs -- Venous Blood Gas -- Humulin -- IV Fluids -- Blood Culture -- Urine Culture -- Urinalysis -- Reassess and disposition Prior Visits: Notes and results from previous visits were reviewed. Patient was last seen in the emergency department on 11/28/2017 for abdominal pain near colostomy site. Patient was admitted into the hospital for metastatic disease, anemia, and dehydration. Progress Notes: 02/04/18 19:06 EKG shows Sinus Tachycardia at 131 BPM with 1 degree AV Block. Nonspecific ST/T wave changes. Interpreted by me. 02/04/18 20:11 Code Sepsis called. 02/04/18 20:33 Chest X-ray shows right upper/lower lobe infiltrates, no CHF, no enlarged heart. Renal function is very poor, worse than when patient was last here on . Potassium level is found to be elevated and patient will have treatment for hypokalemia. To call Dr. Palacios to discuss about patient after workup. 02/04/18 22:[address] Palacios who said he is not working this weekend and to admit patient into hospitalist service. 02/04/18 22:14 Case discussed with emergency medical dispatcher and Dr. Salomon who is aware and agrees with the plan. Accepts patient into hospitalist service. - Critical Care Critical Care Minutes: 45 minutes - Lab Interpretations Lab Results: 02/04/18 19:05 02/04/18 19:05 Lab Results 02/04/18 22:14: pO2 127 H, VBG pH 7.33, VBG pCO2 30.0 L, VBG HCO3 15.8 L, VBG Total CO2 16.7 L, VBG O2 Sat (Calc) 99.5 H, VBG Base Excess -8.8 L, VBG Potassium 5.3 H, Sodium 132.0, Chloride 101.0, Glucose 482 H*, Lactate 5.3 H*, FiO2 21.0, Venous Blood Potassium 5.3 H 02/04/18 21:10: Urine Color Yellow, Urine Appearance Cloudy, Urine pH 6.0, Ur Specific [place] 1.020, Urine Protein 100 H, Urine Glucose (UA) 500 H, Urine Ketones Negative, Urine Blood Trace-intact H, Urine Nitrate Negative, Urine Bilirubin Negative, Urine Urobilinogen 0.2, Ur Leukocyte Esterase Moderate H, Urine RBC 1 - 3, Urine WBC 25 - 30, Ur Epithelial Cells 1 - 3, Urine Bacteria Mod, Urine Other [place]yeast 02/04/18 20:00: PT 17.4 H, INR 1.51 H 02/04/18 20:00: Blood Type O NEGATIVE, Antibody Screen Negative, BBK History Checked Patient has bt 02/04/18 19:35: Ammonia < 9 L 02/04/18 19:05: pO2 129 H, VBG pH 7.32, VBG pCO2 33.0 L, VBG HCO3 17.0 L, VBG Total CO2 18.0 L, VBG O2 Sat (Calc) 99.8 H, VBG Base Excess -8.1 L, VBG Potassium 6.6 H*, Sodium 128.0 L, Chloride 95.0 L, Glucose 503 H* D, Lactate 4.6 H*, FiO2 21.0, Venous Blood Potassium 6.6 H* 02/04/18 19:05: Sodium 133, Chloride 93 L, Potassium 6.2 H* D, Carbon Dioxide 18 L, Anion Gap 28 H, BUN 127 H*, Creatinine 8.3 H* D, Est GFR ( Amer) 8 , Est GFR (Non-Af Amer) 6, Random Glucose 480 H* D, Calcium 9.8, Total Bilirubin 0.5, Direct Bilirubin 0.4, AST 56, ALT 30, Alkaline Phosphatase 304 H D, Lactate Dehydrogenase 949 H, Total Creatine Kinase 57, Troponin I 0.13 H* D, NT-Pro-B Natriuret Pep 06765 H, Total Protein 7.5, Albumin 3.6, Globulin 3.9, Albumin/Globulin Ratio 0.9 L 02/04/18 19:05: APTT 25.8 02/04/18 19:05: WBC 11.7 H D, RBC 2.94 L, Hgb 7.8 L, Hct 24.1 L, MCV 82.0, MCH 26.5, MCHC 32.4, RDW 19.0 H, Plt Count 527 H, MPV 9.2 I have reviewed the lab results: Yes - RAD Interpretation Radiology Orders: 02/04/18 19:29 CHEST PORTABLE [RAD] Stat - EKG Interpretation Interpreted by ED Physician: Yes Type: 12 lead EKG - Medication Orders Current Medication Orders: Aspirin (Ecotrin) 81 mg PO DAILY ANTHONY Atorvastatin Calcium (Lipitor) 10 mg PO DAILY ANTHONY Finasteride (Proscar) 5 mg PO DAILY ANTHONY Furosemide (Lasix) 20 mg IVP DAILY ANTHONY Heparin Sodium (Porcine) (Heparin) 5,000 units SC Q8 ANTHONY PRN Reason: Protocol Milrinone Lactate/Dextrose (Primacor 20mg/100ml D5w) 100 mls @ 2.585 mls/hr IV .Q24H PRN; Protocol; 0.125 MCG/KG/MIN PRN Reason: TITRATE PER MD ORDER Last Admin: 02/04/18 22:35 Dose: 2.585 mls/hr eMAR Start Stop Document 02/04/18 22:35 AD (Rec: 02/04/18 22:38 AD [id number]) Intravenous Solution Start Date 02/04/18 Start Time 22:37 MAR Pulse and Blood Pressure Document 02/04/18 22:35 AD (Rec: 02/04/18 22:38 AD [id number]) Pulse Pulse Rate (60-90) 117 Blood Pressure Blood Pressure (100/60-150/90) 97/66 Doxycycline Hyclate 100 mg/ (Sodium Chloride) 100 mls @ 100 mls/hr IVPB Q12 ANTHONY PRN Reason: Protocol Piperacillin Sod/Tazobactam Sod (Zosyn 2.25 Gm In 0.9% 100 Ml) 2.25 gm in 100 mls @ 100 mls/hr IVPB Q8 ANTHONY PRN Reason: Protocol Stop: 02/05/18 06:59 Last Admin: 02/04/18 23:30 Dose: 100 mls/hr eMAR Start Stop Document 02/04/18 23:30 AD (Rec: 02/05/18 00:27 AD [id number]) Intravenous Solution Start Date 02/05/18 Start Time 23:30 Sodium Chloride (Sodium Chloride 0.9%) 1,000 mls @ 80 mls/hr IV [id number] ANTHONY Stop: 02/05/18 11:51 Last Admin: 02/04/18 23:45 Dose: 80 mls/hr eMAR Start Stop Document 02/04/18 23:45 AD (Rec: 02/04/18 23:45 AD [id number]) Intravenous Solution Start Date 02/04/18 Start Time 23:45 Insulin Detemir (Levemir) 13 unit SC DAILY [facility] Insulin Human Lispro (Humalog Med) 0 units SC ACHS ANTHONY PRN Reason: Protocol Discontinued Medications Dextrose (Dextrose 50% Inj) 25 ml IVP STAT STA Stop: 02/04/18 20:09 Last Admin: 02/04/18 20:20 Dose: 25 ml IVP Administration Document 02/04/18 20:20 AD (Rec: 02/04/18 20:29 AD [id number]) Charges for Administration # of IVP Administrations 1 Sodium Chloride (Sodium Chloride 0.9%) 1,000 mls @ 999 mls/hr IV .Q1H1M STA Stop: 02/04/18 20:33 Last Admin: 02/04/18 19:33 Dose: 999 mls/hr eMAR Start Stop Document 02/04/18 19:33 AD (Rec: 02/04/18 19:42 AD [id number]) Intravenous Solution Start Date 02/04/18 Start Time 19:33 Sodium Chloride (Sodium Chloride 0.9%) 1,000 mls @ 100 mls/hr IV .Q10H ANTHONY Last Admin: 02/04/18 19:45 Dose: 100 mls/hr eMAR Start Stop Document 02/04/18 19:45 AD (Rec: 07/21/18 20:31 AD [id number]) Intravenous Solution Start Date 02/04/18 Start Time 19:45 Calcium Gluconate 1,000 mg/ (Sodium Chloride) 110 mls @ 110 mls/hr IVPB ONCE ONE Stop: 02/04/18 21:07 Last Admin: 02/04/18 20:31 Dose: 110 mls/hr eMAR Start Stop Document 02/04/18 20:31 AD (Rec: 02/04/18 20:31 AD [id number]) Intravenous Solution Start Date 02/04/18 Start Time 20:31 Ceftriaxone Sodium (Rocephin 1 Gram Ivpb) 1 gm in 100 mls @ 200 mls/hr IVPB STAT STA PRN Reason: Protocol Stop: 02/04/18 20:41 Last Admin: 02/04/18 20:30 Dose: 200 mls/hr eMAR Start Stop Document 02/04/18 20:30 AD (Rec: 02/04/18 20:30 AD [id number]) Intravenous Solution Start Date 02/04/18 Start Time 20:30 Azithromycin (Zithromax 500mg In Ns) 500 mg in 250 mls @ 167 mls/hr IVPB STAT STA PRN Reason: Protocol Stop: 02/04/18 21:41 Last Admin: 02/04/18 21:41 Dose: 167 mls/hr eMAR Start Stop Document 02/04/18 21:41 AD (Rec: 02/04/18 21:42 AD [id number]) Intravenous Solution Start Date 02/04/18 Start Time 21:42 Vancomycin HCl (Vancomycin 1gm) 1 gm in 250 mls @ 167 mls/hr IVPB STAT STA PRN Reason: Protocol Stop: 02/05/18 00:42 Insulin Human Regular (Humulin R) 10 units IVP ONCE ONE Stop: 02/04/18 20:22 Last Admin: 02/04/18 20:21 Dose: 10 units MAR Blood Glucose Document 02/04/18 20:21 AD (Rec: 02/04/18 20:30 AD [id number]) Blood Glucose Finger Stick Blood Glucose (70-120) 480 IVP Administration Document 02/04/18 20:21 AD (Rec: 02/04/18 20:30 AD [id number]) Charges for Administration # of IVP Administrations 1 Sodium Bicarbonate (Sodium Bicarbonate 8.4% (50 Meq) Syringe) 50 meq IVP ONCE ONE Stop: 02/04/18 20:09 Last Admin: 02/04/18 20:20 Dose: 50 meq IVP Administration Document 02/04/18 20:20 AD (Rec: 02/04/18 20:29 AD [id number]) Charges for Administration # of IVP Administrations 1 - Scribe Statement The provider has reviewed the documentation as recorded by the Jasper Drew Provider Scribe Attestation: All medical record entries made by the Jasper were at my direction and personally dictated by me. I have reviewed the chart and agree that the record accurately reflects my personal performance of the history, physical exam, medical decision making, and the department course for this patient. I have also personally directed, reviewed, and agree with the discharge instructions and disposition. Disposition/Present on Arrival - Present on Arrival Any Indicators Present on Arrival: Yes History of DVT/PE: No History of Uncontrolled Diabetes: Yes Urinary Catheter: Yes History of Decub. Ulcer: No History Surgical Site Infection Following: None - Disposition Have Diagnosis and Disposition been Completed?: Yes Diagnosis: Renal failure (ARF), acute on chronic, Septic shock, Hypovolemic shock, Profound anemia, Pneumonia, Diabetes mellitus Disposition: HOSPITALIZED Disposition Time: 23:30 Patient Plan: Admission, ICU Patient Problems: Current Active Problems Problem Status Onset Renal failure (ARF), acute on chronic Chronic Diabetes mellitus Chronic Anemia Acute Septic shock Acute Pneumonia Chronic Hypovolemic shock Acute Condition: CRITICAL
[2018-02-04] MEDS ORDERED: Insulin Regular 1 UNITS/0.01 ML ML IVP ONE (20:21)
[2018-02-04 20:51] LABS: INR 1.51 (0.93-1.08); PROTHROMBIN TIME 17.4 SECONDS (9.4-12.5)
[2018-02-04 21:11] LABS: BILIRUBIN,DIRECT 0.4 mg/dL (0.0-0.4)
[2018-02-04 21:23] LABS: URINE BILIRUBIN NEGATIVE (NEGATIVE); URINE BLOOD TRACE-INTACT (NEGATIVE); URINE GLUCOSE (UA) 500 mg/dL (NEGATIVE); URINE LEUKOCYTE ESTERASE MODERATE Leu/uL (NEGATIVE); URINE PROTEIN 100 mg/dL (<30 mg/dL); URINE UROBILINOGEN 0.2 E.U./dL (<1 E.U./dL)
[2018-02-04 21:33] LABS: URINE APPEARANCE CLOUDY (CLEAR); URINE COLOR YELLOW (YELLOW)
[2018-02-04 21:36] LABS: URINE BACTERIA MOD (NEG); URINE WBC 25 - 30 /hpf (0-6)
[2018-02-04 21:38] LABS: TROPONIN I 0.13 ng/mL
[2018-02-04 22:29] LABS: VENOUS BLOOD GAS BASE EXCESS -8.8 mmol/L (0.0-2.0); VENOUS BLOOD GAS PO2 127 mm/Hg (30-55); VENOUS BLOOD PH 7.33 (7.32-7.43)
[2018-02-04] MEDS: Milrinone 20mg/100ml D5W 100 ML IV PRN (22:35)
[2018-02-04] MEDS ORDERED: Vancomycin 1gm in NS 250ml 1 GM/250 ML BAG IVPB STA (23:13)
[2018-02-04] MEDS: Piperacillin/Tazobact 2.25gm 2.25 GM/100 ML BAG IVPB SCH (23:30)
--- NOTE | 2018-02-04 23:43 | CP.PCM.HP ---
<Rod Mendieta - Last Filed: 02/05/18 06:52> History of Present Illness - History of Present Illness History of Present Illness: Rod Mendieta D.O. PGY-1, Internal Medicine Resident, History and Physical for Dr Combs. CC: "hypoglycemia and hypotension" HPI: Pt is a 72 yo male with a PMH of CVA, lung CA (radiation), Atrial Fibrillation, CAD, CHF, endocarditis, AAA, AVR, angina pectoris, coronary stents x 3m port to right upper chest, diabetes type 2, metastatic liver disease and colostomy, accompanied by his , presents to the emergency department complaining of hyperglycemia and hypotension. History is obtained from the pt . Pt has poor communication. Patient's reports symptoms began today and became concerned, bringing in patient to the ER for evaluation. Pt reports that he has been lethargic for the past 2 or 3 days, his blood pressure has been low (pt family did not provide log of BP readings), pt unable to ambulate secondary to chronic illness, and has been losing wt for the past 2 months secondary to poor oral intake. Pt family does not provide other complaints from the pt. ROS difficult to obtain because of pt inability to communicate well during exam. Code sepsis called secondary to elevated Lactate, hypotension, tachycardia, possible source being UTI vs sacral ulcer vs PNA vs other etiology Labs: CBC: WBC 11.7, Hgb 7.8 Coag: INR 1.51 Blood gas: Lactate 5.3 CMP: Potassium 5.3, Anion Gap 22, BUN 127, Cr 8.3, Alk Phos 304, [place] 949 , Troponin 0.13, ProBNP 96307 UA: Protein 100, Glucose 500, Blood Trace, LE moderate Imaging: CXR: right sided upper/mid lobe infiltrate suspicious for PNA vs LANE Present on Admission - Present on Admission Any Indicators Present on Admission: Yes History of Uncontrolled Diabetes: Yes Urinary Catheter: No Decubitus Ulcer Present: Yes Decubitus Ulcer Stage: I Review of Systems - Review of Systems Review of Systems: unable to obtain Past Patient History - Infectious Disease Hx of Infectious Diseases: None - Tetanus Immunizations Tetanus Immunization: Unknown - Past Medical History & Family History Past Medical History?: Yes - Past Social History Smoking Status: Never Smoked - CARDIAC Hx Cardiac Disorders: Yes (CAD,ANGINA PECTORIS,ENDOCARDITIS,AAA,STENT,AVR) Hx Cardia Arrhythmia: Yes (AFIB) Other/Comment: milrinone drip 232 mg/290 D5W infusing from home - PULMONARY Hx Respiratory Disorders: Yes (LUNG CA-RADIATION) - NEUROLOGICAL Hx Neurological Disorder: Yes HX Cerebrovascular Accident: Yes Hx Dizziness: Yes - HEENT Hx HEENT Problems: Yes - RENAL Hx Chronic Kidney Disease: Yes Hx Renal Failure: Yes - ENDOCRINE/METABOLIC Hx Endocrine Disorders: Yes Hx Diabetes Mellitus Type 2: Yes - HEMATOLOGICAL/ONCOLOGICAL Hx Blood Disorders: Yes Hx Anemia: Yes - INTEGUMENTARY Other/Comment: multiple moles around neck, red raised b/l groin rash , multiple skin discolorations to both arms. PORT TO RIGHT CHEST WALL 09-26-17 - MUSCULOSKELETAL/RHEUMATOLOGICAL Hx Musculoskeletal Disorders: Yes Hx Falls: Yes - GASTROINTESTINAL Hx Colostomy: Yes - GENITOURINARY/GYNECOLOGICAL Hx Prostate Problems: Yes (BPH WITH PROSTATE SX) Other/Comment: #16 2wf - PSYCHIATRIC Hx Depression: Yes Hx Substance Use: No - SURGICAL HISTORY Hx Coronary Stent: Yes (x3) Other/Comment: port rt upper chest - ANESTHESIA Hx Anesthesia: Yes Hx Anesthesia Reactions: No Hx Malignant Hyperthermia: No Meds Allergies/Adverse Reactions: Allergies Allergy/AdvReac Type Severity Reaction Status Date / Time No Known Allergies Allergy Verified 10/03/17 12:09 Physical Exam - Constitutional Appears: Chronically Ill - Head Exam Head Exam: ATRAUMATIC, NORMOCEPHALIC - Neck Exam Neck exam: Positive for: Normal Inspection - Respiratory Exam Respiratory Exam: Decreased Breath Sounds Additional comments: R>L gurgling breath sounds - Cardiovascular Exam Cardiovascular Exam: Tachycardia, REGULAR RHYTHM, +S1, +S2. absent: Irregular Rhythm, JVD - GI/Abdominal Exam GI & Abdominal Exam: Soft Additional comments: colostomy bad in place - Extremities Exam Extremities exam: Positive for: normal inspection. Negative for: pedal edema - Neurological Exam Additional comments: pt unable to communicate during history or physical - Skin Skin Exam: Normal Color Results - Vital Signs Recent Vital Signs: Last Vital Signs Temp 98.1 F 02/04/18 19:44 Pulse 115 H 02/04/18 23:08 Resp 18 02/04/18 23:08 BP 103/67 02/04/18 23:08 Pulse Ox 97 02/04/18 23:08 - Labs Result Diagrams: 02/04/18 19:05 02/04/18 19:05 Assessment & Plan - Assessment and Plan (Free Text) Assessment: Pt is a 72 yo male with a PMH of CVA, lung CA (radiation), Atrial Fibrillation, CAD, CHF, endocarditis, AAA, AVR, angina pectoris, coronary stents x 3m port to right upper chest, diabetes type 2, metastatic liver disease and colostomy, accompanied by his , presents to the emergency department complaining of hyperglycemia and hypotension. Pt admitted for sepsis, with elevated lactate, hypotension, leukocytosis 11.7, being treated with zosyn, vanc, and doxy. Pt in ICU for further management. Plan: Sepsis -Etiology: UTI vs PNA vs Sacral Ulcer -Elevated Lactic acid on admission 4.6, repeat 5.3 -Hypotension, tachycardia -In ED given IVF 2 liters with response of BP as well as rocephin and azithromycin -CXR showing right upper and middle lobe consolidation, UA showing leukocyte esterase and WBC, Sacral Ulcer appears to be stage I with minimal skin breakdown -start vancomycin, Zosyn (renally dosed), doxycycline for HCAP -IVF 80ml NS -UA, blood cultures -repeat lactic acid -head, chest, abdomen, and pelvis non contrast CT -ID consulted Elevated Troponins -Etiology: Hypotensive episode in setting of ESRD on HD vs ACS -Initially troponin 0.13, EKG sinus tachycardia no evidence of ST elevation/ depression -Trend troponin Q6H x2 -EKG in AM Elevated Anion Gap Metabolic Acidosis -AG of 22 on admission -Etiology: Uremia vs Lactic acidosis vs DKA -No ketones present in urine, elevated BUN, lactic acidosis -IVF 2 liters already given, continue with IV NS 80ml/hr -Recheck in AM with labs Anemia -H/H of 7.8/24.1 -Baseline closer to 9 for hemoglobin -Likely secondary to ESRD, anemia of choric disease -Continue to monitor ESDR on HD -Continue home medications -Consult Nephrology, appreciate recs Hyperglycemia in setting of DM2 -Uncontrolled DM2 history -continue Levemir, ISS medium -ACHS History of CAD -continue ASA 81mg, Lipitor 10mg -holding anti-hypertensives at this time secondary hypotension in the setting of sepsis History of Atrial Fibrillation on anticoagulation -Warfarin used for AC, INR 1.5 subtherapeutic at this point -pt warfarin has been held due [place] [facility] [place] Pt seen, examined, assessment and plan discussed with Dr Combs. Rod Mendieta PGY-1 <Ralph Combs P - Last Filed: 02/05/18 19:39> Results - Vital Signs Recent Vital Signs: Last Vital Signs Temp 98.1 F 02/05/18 16:00 Pulse 122 H 02/05/18 18:50 Resp 22 02/05/18 18:50 BP 103/34 L 02/05/18 18:00 Pulse Ox 98 02/05/18 18:50 - Labs Result Diagrams: 02/05/18 15:30 02/05/18 06:45 Labs: Laboratory Results - last 24 hr 02/05/18 02/05/18 02/05/18 02:20 02:20 06:45 WBC 11.7 H RBC 2.54 L Hgb 6.7 L* Hct 21.0 L MCV 82.7 MCH 26.4 MCHC 31.9 RDW 19.3 H Plt Count 424 MPV 9.1 Gran % 91.7 H Lymph % (Auto) 4.2 L [place] % (Auto) 4.1 Eos % (Auto) 0.0 L Baso % (Auto) 0.0 Gran # 10.77 H Lymph # (Auto) 0.5 L [place] # (Auto) 0.5 Eos # (Auto) 0.0 Baso # (Auto) 0.00 Neutrophils % (Manual) 86 H Band Neutrophils % 3 H Lymphocytes % (Manual) 6 L Monocytes % (Manual) 4 Metamyelocytes % 1 Platelet Evaluation High APTT pO2 37 VBG pH 7.38 VBG pCO2 25.0 L VBG HCO3 14.8 L VBG Total CO2 15.6 L VBG O2 Sat (Calc) 74.9 H VBG Base Excess -8.5 L VBG Potassium 4.0 Sodium 135.0 Chloride 112.0 H Glucose 391 H Lactate 1.6 FiO2 21.0 Potassium Carbon Dioxide Anion Gap BUN Creatinine Est GFR ( Amer) Est GFR (Non-Af Amer) Random Glucose Calcium Phosphorus Magnesium Total Bilirubin AST ALT Alkaline Phosphatase Troponin I 0.40 H* D Total Protein Albumin Globulin Albumin/Globulin Ratio Procalcitonin Venous Blood Potassium 4.0 02/05/18 02/05/18 02/05/18 06:45 06:45 06:45 WBC RBC Hgb Hct MCV MCH MCHC RDW Plt Count MPV Gran % Lymph % (Auto) [place] % (Auto) Eos % (Auto) Baso % (Auto) Gran # Lymph # (Auto) [place] # (Auto) Eos # (Auto) Baso # (Auto) Neutrophils % (Manual) Band Neutrophils % Lymphocytes % (Manual) Monocytes % (Manual) Metamyelocytes % Platelet Evaluation APTT 23.4 L pO2 VBG pH VBG pCO2 VBG HCO3 VBG Total CO2 VBG O2 Sat (Calc) VBG Base Excess VBG Potassium Sodium 138 Chloride 102 Glucose Lactate FiO2 Potassium 4.8 Carbon Dioxide 18 L Anion Gap 22 H BUN 115 H Creatinine 7.1 H Est GFR ( Amer) 9 Est GFR (Non-Af Amer) 8 Random Glucose 376 H* D Calcium 9.2 Phosphorus 5.0 H Magnesium 2.6 H Total Bilirubin 0.4 AST 39 ALT 33 Alkaline Phosphatase 311 H Troponin I 0.58 H* D Total Protein 6.5 Albumin 3.0 Globulin 3.4 Albumin/Globulin Ratio 0.9 L Procalcitonin Venous Blood Potassium 02/05/18 02/05/18 02/05/18 08:20 08:20 15:30 WBC 10.8 15.0 H D RBC 2.61 L 2.99 L Hgb 6.8 L* 8.1 L Hct 21.4 L 24.6 L MCV 82.0 82.3 MCH 26.1 27.1 MCHC 31.8 32.9 RDW 19.0 H 18.0 H Plt Count 415 462 H MPV 8.9 8.9 Gran % Lymph % (Auto) [place] % (Auto) Eos % (Auto) Baso % (Auto) Gran # Lymph # (Auto) [place] # (Auto) Eos # (Auto) Baso # (Auto) Neutrophils % (Manual) Band Neutrophils % Lymphocytes % (Manual) Monocytes % (Manual) Metamyelocytes % Platelet Evaluation APTT pO2 VBG pH VBG pCO2 VBG HCO3 VBG Total CO2 VBG O2 Sat (Calc) VBG Base Excess VBG Potassium Sodium Chloride Glucose Lactate FiO2 Potassium Carbon Dioxide Anion Gap BUN Creatinine Est GFR ( Amer) Est GFR (Non-Af Amer) Random Glucose Calcium Phosphorus Magnesium Total Bilirubin AST ALT Alkaline Phosphatase Troponin I Total Protein Albumin Globulin Albumin/Globulin Ratio Procalcitonin 23.64 H Venous Blood Potassium Attending/Attestation - Attestation I have personally seen and examined this patient.: Yes I have fully participated in the care of the patient.: Yes I have reviewed all pertinent clinical information: Yes Notes (Text): 02/05/18 19:39 See progress note on the same date.
[2018-02-05 02:37] LABS: VENOUS BLOOD GAS BASE EXCESS -8.5 mmol/L (0.0-2.0); VENOUS BLOOD GAS PO2 37 mm/Hg (30-55); VENOUS BLOOD PH 7.38 (7.32-7.43)
[2018-02-05] MEDS: Piperacillin/Tazobact 2.25gm 2.25 GM/100 ML BAG IVPB SCH (06:50)
--- NOTE | 2018-02-05 06:58 | CP.PCM.PN ---
Subjective - Date & Time of Evaluation Date of Evaluation: 02/04/18 Time of Evaluation: 22:00 - Subjective Subjective: Assessment * Hypotension tachycardia from dehydration form poor intake, uncontrolled dm, DD of PNA/sepsis * Suspected aspiration and hence poor intake * Worsening of renal function with h/o CRI with uremia * Uncontrolled dm * H/o lung ca on left with hepatic mets, with lesion on the right side dd of pna vs ca/mets, aspiration * [place] [facility] [place] * H/o ischemic cardiomyopathy on milrinone, s/p aicd, aortic endovascular graft * H/o colostomy * Emaciation * D/w and son that patient's condition will keep declining and he is in terminal stage especially with malignance which is not being treated due to co morbidities will kill him, as per the son he understands it but has to convey the message to rest of the family, at this point patient still remains full code. Plan * Gentle ivf for 1.5 lit * Emperic abx vanco single dose, zosyn, doxy * Hernandez CT to know current status of the malignancy, evaluate right lung lesson * Palliative care as recommend DNR/DNI, comfort care. * gi/dvt prophylaxis * continue milrinone * Over night observe in ICU * Swallow eval * See orders for detail. Objective - Vital Signs/Intake and Output Vital Signs (last 24 hours): Temp Pulse Resp BP Pulse Ox 98.2 F 106 H 14 110/68 96 02/05/18 01:17 02/05/18 05:20 02/05/18 05:20 02/05/18 05:00 02/05/18 05:20 - Medications Medications: Current Medications Aspirin (Ecotrin) 81 mg PO DAILY ANTHONY Atorvastatin Calcium (Lipitor) 10 mg PO DAILY ANTHONY Finasteride (Proscar) 5 mg PO DAILY ANTH[facility]Y Furosemide (Lasix) 20 mg IVP DAILY [facility] Heparin Sodium (Porcine) (Heparin) 5,000 units SC Q8 ANTHONY PRN Reason: Protocol Milrinone Lactate/Dextrose (Primacor 20mg/100ml D5w) 100 mls @ 2.585 mls/hr IV .Q24H PRN; Protocol; 0.125 MCG/KG/MIN PRN Reason: TITRATE PER MD ORDER Last Admin: 02/04/18 22:35 Dose: 2.585 mls/hr Doxycycline Hyclate 100 mg/ (Sodium Chloride) 100 mls @ 100 mls/hr IVPB Q12 ANTHONY PRN Reason: Protocol Piperacillin Sod/Tazobactam Sod (Zosyn 2.25 Gm In 0.9% 100 Ml) 2.25 gm in 100 mls @ 100 mls/hr IVPB Q8 ANTHONY PRN Reason: Protocol Stop: 02/05/18 06:59 Last Admin: 02/04/18 23:30 Dose: 100 mls/hr Sodium Chloride (Sodium Chloride 0.9%) 1,000 mls @ 80 mls/hr IV .[id number] [facility] Stop: 02/05/18 11:51 Last Admin: 02/04/18 23:45 Dose: 80 mls/hr Insulin Detemir (Levemir) 13 unit SC DAILY [facility] Insulin Human Lispro (Humalog Med) 0 units SC ACHS ANTHONY PRN Reason: Protocol - Labs Labs: PT 17.4 SECONDS (9.4-12.5) H 02/04/18 20:00 INR 1.51 (0.93-1.08) H 02/04/18 20:00 APTT 25.8 Seconds (25.1-36.5) 02/04/18 19:05
[2018-02-05 07:11] LABS: GRAN # 10.77 (1.4-6.5); GRAN % 91.7 % (50.0-68.0); LYMPH # 0.5 (1.2-3.4); LYMPH % 4.2 % (22.0-35.0); MEAN CELL VOLUME 82.7 fl (80.0-105.0); MEAN CORPUSCULAR HEMOGLOBIN 26.4 pg (25.0-35.0); MEAN CORPUSCULAR HGB CONC 31.9 g/dl (31.0-37.0); MEAN PLATELET VOLUME 9.1 fl (7.0-11.0); MONO # 0.5 (0.1-0.6); MONO % 4.1 % (1.0-6.0); PLATELET COUNT 424 10^3/uL (120.0-450.0); RBC 2.54 10^6/uL (3.5-6.1); RED CELL DISTRIBUTION WIDTH 19.3 % (11.5-14.5); WHITE BLOOD COUNT 11.7 10^3/ul (4.5-11.0)
[2018-02-05 07:28] LABS: HEMOGLOBIN 6.7 g/dL (14.0-18.0)
[2018-02-05 07:35] LABS: ALB/GLOB RATIO 0.9 (1.1-1.8); CALCIUM 9.2 mg/dL (8.4-10.5)
[2018-02-05] MEDS: Insulin Lispro (humaLOG) MEDIUM Coverage SC SCH ×2 (08:09→11:22)
--- NOTE | 2018-02-05 08:25 | PN ---
DATE: 02/05/2018 ACCOUNT DIRECTOR NOTE SUBJECTIVE: The patient is resting in bed with O2 via nasal cannula. The patient is comfortable, resting in bed, very lethargic. The patient has no active cough. OBJECTIVE: VITAL SIGNS: At this time are stable. Blood pressure has improved with fluids. He does not require pressors at this time. His temperature is 98.2, his pulse is 109, respirations 16 and his BP is 107/58. O2 saturation is 99%. HEENT: Head is atraumatic, normocephalic. Eyes, reactive to light. Ears, nose and throat seemed to be within normal limits. NECK: Supple. No JVD. No thyroid enlargement. No lymph nodes. HEART: Has regular rate and rhythm. Normal S1, S2 though mildly tachycardic. LUNGS: Reveal rare rhonchi at the bases. ABDOMEN: Soft. Decreased bowel sounds. GENITALIA: Deferred. RECTAL: Deferred. MUSCULOSKELETAL: No joint deformities. EXTREMITIES: Reveal 1+ lower extremity edema. NEUROLOGIC: The patient is lethargic, but seems to be moving all extremities. DATA: Laboratories reveal a white count of 11.7, hemoglobin of 7.8, hematocrit 24.1 with platelets of 527,000. PT is 17.4, INR is 1.51. Venous blood gas reveals a pH of 7.38, pCO2 of 25, pO2 of 37. Note that the patient's lactate is 1.6. Sodium is 133, potassium 6.2 with chloride 93, CO2 of 18, BUN of 127 with a creatinine of 8.3 and a glucose of 480. The patient has an increased troponin 0.4 and a BNP of 30,700. Note that venous blood potassium has corrected to 4. Chest x-ray, this is an unofficial reading, bilateral scarring and possible left lower lobe infiltrate. IMPRESSION: As far as my impression, this patient has most likely sepsis, possible left lower lobe pneumonia; has hypotension and probable dehydration with renal insufficiency/renal failure. The patient has altered mental status and he is very cachectic. The patient has a history of lung CA with liver metastases and failure to thrive. He has anemia as well as hyponatremia and presented with hyperkalemia as well. The patient has a history of colectomy and at this time, has a colostomy; has aortic aneurysm and cardiomyopathy with heart failure. There may be a component of congestive heart failure at this time with increased troponin. The patient has a history of diabetes and presents with increased glucose. Also, the patient has chronic kidney disease and it may be a acute renal failure associated. He has a history of a atrial fibrillation as well. PLAN: As far as our plan, we will monitor electrolytes and correct as needed. The patient has been started on doxycycline. He is on Ecotrin, heparin subcu and Humalog for the . The patient is getting Lasix as well as Levemir and Lipitor. He will continue on his milrinone and is getting Rocephin as well as the vancomycin. He is getting normal saline and O2 via nasal cannula. We will continue to treat aggressively along with the other consultants and the primary care doctor. Kingsley Lazaro MD
[2018-02-05 08:29] LABS: MEAN CORPUSCULAR HEMOGLOBIN 26.1 pg (25.0-35.0); MEAN CORPUSCULAR HGB CONC 31.8 g/dl (31.0-37.0); MEAN PLATELET VOLUME 8.9 fl (7.0-11.0); RBC 2.61 10^6/uL (3.5-6.1); WHITE BLOOD COUNT 10.8 10^3/ul (4.5-11.0)
[2018-02-05 08:37] LABS: BAND 3 % (0-2); LYMPHOCYTE 6 % (22.0-35.0); METAMYELOCYTE 1 %; MONOCYTE 4 % (1.0-6.0); NEUTROPHIL 86 % (50.0-70.0)
[2018-02-05 08:38] LABS: PLATELET ESTIMATE HIGH (NORMAL)
[2018-02-05 08:40] LABS: HEMOGLOBIN 6.8 g/dL (14.0-18.0)
[2018-02-05] MEDS ORDERED: NOREPINEPHRINE BIT/0.9 % NACL 4 MG/250 ML BAG IV PRN (08:40)
[2018-02-05] MEDS: Meropenem 500 MG in Sodium Chloride 0.9% 50 ML IVPB SCH ×2 (09:15→22:00)
--- NOTE | 2018-02-05 09:25 | RAD ---
Date of service: 02/04/2018 HISTORY: cough COMPARISON: 11/28/2017. FINDINGS: The right IJV line terminates at the cavoatrial junction P LUNGS: The lungs are well inflated. There is interval development of airspace disease in the right lung and left lower lobe. Persistent subsegmental atelectasis in the left mid lung. PLEURA: No significant pleural effusion identified, no pneumothorax apparent. CARDIOVASCULAR: Mild cardiomegaly. Stable position of left-sided AICD. OSSEOUS STRUCTURES: No significant abnormalities. VISUALIZED UPPER ABDOMEN: Normal. OTHER FINDINGS: None. IMPRESSION: Findings are concerning for multifocal pneumonia in the right lung and left lower lobe. Follow-up is advised.
[2018-02-05] MEDS ORDERED: Insulin Detemir 100 units/ml Vial (Levemir) SC SCH ×2 (10:00→22:00)
[2018-02-05] MEDS ORDERED: metOLazone 2.5 MG TAB PO SCH (10:00)
[2018-02-05] MEDS ORDERED: Magnesium Oxide 400 mg Tab UD PO SCH (10:00)
[2018-02-05] MEDS ORDERED: Primacor 1 mg/ml Inj (10 ml) IV SCH (10:00)
--- NOTE | 2018-02-05 10:16 | CP.PCM.CON ---
<Nel Bellamy - Last Filed: 02/05/18 10:20> History of Present Illness - History of Present Illness History of Present Illness: GI Fellow PGY5 Consult Note This is a 72 yo male with a PMH of CVA, lung CA with metastatic disease to liver , Atrial Fibrillation, CAD, CHF, endocarditis, AAA, AVR, ESRD, angina pectoris, coronary stents x 3m, port to right upper chest, diabetes type 2, colon perforation s/p colostomy many years ago. Pt accompanied by his , presents to the emergency department complaining of hyperglycemia and hypotension. Pt was seen and evaluated at bedside in ICU and history is obtained from the pt's as pt has poor communication. Pt reports that he has been lethargic for the past 2 or 3 days, his blood pressure has been low, pt unable to ambulate secondary to chronic illness, and has been losing wt for the past 2 months secondary to poor oral intake. In ER, code sepsis called secondary to elevated Lactate, hypotension, tachycardia, possible source being UTI vs sacral ulcer vs PNA. Pt currently on Levophed. GI was consulted for Anemia and Hx of GI bleeding, Hgb 6.8 on admission. Per pt's he has been on OAC warfarin the past and every time he took it he started having rectal bleeding so he has not taken it in months as it was [place] at [facility] [place]. On review of records, pt had a EGD 07/2017 with LAGA esophagitis and hiatal hernia with no active UGIB. He also had EGD/Colonoscopy 07/2016 with no UGIB and colonoscopy showed 20cm from stoma a single 20mm ulcer nonbleeding. ROS: A 12pt ROS was negative except as above PmHx: As stated in HPI PsHx: Multiple cardiac procedures, colostomy FHx: Neg for colon cancer SHx: Denies current tobacco, etoh or drugs Past Patient History - Infectious Disease Hx of Infectious Diseases: None - Tetanus Immunizations Tetanus Immunization: Unknown - Past Medical History & Family History Past Medical History?: Yes - Past Social History Smoking Status: Never Smoked - CARDIAC Hx Cardiac Disorders: Yes (CAD,ANGINA PECTORIS,ENDOCARDITIS,AAA,STENT,AVR) Hx Cardia Arrhythmia: Yes (AFIB) Other/Comment: milrinone drip 232 mg/290 D5W infusing from home - PULMONARY Hx Respiratory Disorders: Yes (LUNG CA-RADIATION) - NEUROLOGICAL Hx Neurological Disorder: Yes HX Cerebrovascular Accident: Yes Hx Dizziness: Yes - HEENT Hx HEENT Problems: Yes - RENAL Hx Chronic Kidney Disease: Yes Hx Renal Failure: Yes - ENDOCRINE/METABOLIC Hx Endocrine Disorders: Yes Hx Diabetes Mellitus Type 2: Yes - HEMATOLOGICAL/ONCOLOGICAL Hx Blood Disorders: Yes Hx Anemia: Yes - INTEGUMENTARY Other/Comment: multiple moles around neck, red raised b/l groin rash , multiple skin discolorations to both arms. PORT TO RIGHT CHEST WALL 09-26-17 - MUSCULOSKELETAL/RHEUMATOLOGICAL Hx Musculoskeletal Disorders: Yes Hx Falls: Yes - GASTROINTESTINAL Hx Colostomy: Yes - GENITOURINARY/GYNECOLOGICAL Hx Prostate Problems: Yes (BPH WITH PROSTATE SX) Other/Comment: #16 2wf - PSYCHIATRIC Hx Depression: Yes Hx Substance Use: No - SURGICAL HISTORY Hx Coronary Stent: Yes (x3) Other/Comment: port rt upper chest - ANESTHESIA Hx Anesthesia: Yes Hx Anesthesia Reactions: No Hx Malignant Hyperthermia: No Meds Allergies/Adverse Reactions: Allergies Allergy/AdvReac Type Severity Reaction Status Date / Time No Known Allergies Allergy Verified 10/03/17 12:09 - Medications Medications: Current Medications Aspirin (Ecotrin) 81 mg PO DAILY [facility] Last Admin: 02/05/18 09:25 Dose: 81 mg Atorvastatin Calcium (Lipitor) 10 mg PO DAILY [facility] Last Admin: 02/05/18 09:25 Dose: 10 mg Finasteride (Proscar) 5 mg PO DAILY [facility] Last Admin: 02/05/18 09:26 Dose: 5 mg Furosemide (Lasix) 20 mg IVP DAILY [facility] Last Admin: 02/05/18 09:13 Dose: 20 mg Milrinone Lactate/Dextrose (Primacor 20mg/100ml D5w) 100 mls @ 2.585 mls/hr IV .Q24H PRN; Protocol; 0.125 MCG/KG/MIN PRN Reason: TITRATE PER MD ORDER Last Admin: 02/04/18 22:35 Dose: 2.585 mls/hr Doxycycline Hyclate 100 mg/ (Sodium Chloride) 100 mls @ 100 mls/hr IVPB Q12 ANTHONY PRN Reason: Protocol Last Admin: 02/05/18 09:15 Dose: 100 mls/hr Sodium Chloride (Sodium Chloride 0.9%) 1,000 mls @ 80 mls/hr IV .[id number] [facility] Last Admin: 02/04/18 23:45 Dose: 80 mls/hr Meropenem 500 mg/ Sodium (Chloride) 50 mls @ 100 mls/hr IVPB Q12 ANTHONY PRN Reason: Protocol Stop: 02/14/18 10:01 Last Admin: 02/05/18 09:15 Dose: 100 mls/hr NOREPINEPHRINE BIT/0.9 % NACL (Levophed 4 Mg/ 250 Ml Ns Premixed) 4 mg in 250 mls @ 15 mls/hr IV .[id number] PRN; Protocol; 4 MCG/MIN PRN Reason: TITRATE PER MD ORDER Last Admin: 02/05/18 09:10 Dose: 4 mcg/min, 15 mls/hr Insulin Detemir (Levemir) 13 unit SC DAILY [facility] Insulin Human Lispro (Humalog Med) 0 units SC ACHS ANTHONY PRN Reason: Protocol Last Admin: 02/05/18 08:09 Dose: 8 units Physical Exam - Constitutional Appears: Non-toxic, No Acute Distress, Confused, Cachectic, Chronically Ill - Head Exam Head Exam: ATRAUMATIC, NORMAL INSPECTION, NORMOCEPHALIC - Eye Exam Eye Exam: EOMI, Normal appearance, PERRL Pupil Exam: PERRL - ENT Exam ENT Exam: Mucous Membranes Dry - Respiratory Exam Respiratory Exam: NORMAL BREATHING PATTERN - Cardiovascular Exam Cardiovascular Exam: Tachycardia, Irregular Rhythm - GI/Abdominal Exam GI & Abdominal Exam: Normal Bowel Sounds, Soft. absent: Distended, Guarding, Organomegaly, Tenderness Additional comments: Colostomy bag with brown stool, no melena, no hematochezia - Rectal Exam Rectal Exam: Deferred - Extremities Exam Extremities exam: Positive for: normal inspection - Neurological Exam Neurological exam: Alert - Psychiatric Exam Psychiatric exam: Flat Affect - Skin Skin Exam: Dry, Intact, Pallor, Warm Results - Vital Signs Recent Vital Signs: Last Vital Signs Temp 97.1 F L 02/05/18 08:00 Pulse 106 H 02/05/18 08:00 Resp 16 02/05/18 08:00 BP 98/58 L 02/05/18 09:13 Pulse Ox 98 02/05/18 08:00 - Labs Result Diagrams: 02/05/18 08:20 02/05/18 06:45 Labs: Laboratory Results - last 24 hr 07/02/05/18 02/05/18 02:20 02:20 06:45 WBC 11.7 H RBC 2.54 L Hgb 6.7 L* Hct 21.0 L MCV 82.7 MCH 26.4 MCHC 31.9 RDW 19.3 H Plt Count 424 MPV 9.1 Gran % 91.7 H Lymph % (Auto) 4.2 L [place] % (Auto) 4.1 Eos % (Auto) 0.0 L Baso % (Auto) 0.0 Gran # 10.77 H Lymph # (Auto) 0.5 L [place] # (Auto) 0.5 Eos # (Auto) 0.0 Baso # (Auto) 0.00 Neutrophils % (Manual) 86 H Band Neutrophils % 3 H Lymphocytes % (Manual) 6 L Monocytes % (Manual) 4 Metamyelocytes % 1 Platelet Evaluation High APTT pO2 37 VBG pH 7.38 VBG pCO2 25.0 L VBG HCO3 14.8 L VBG Total CO2 15.6 L VBG O2 Sat (Calc) 74.9 H VBG Base Excess -8.5 L VBG Potassium 4.0 Sodium 135.0 Chloride 112.0 H Glucose 391 H Lactate 1.6 FiO2 21.0 Potassium Carbon Dioxide Anion Gap BUN Creatinine Est GFR ( Amer) Est GFR (Non-Af Amer) Random Glucose Calcium Phosphorus Magnesium Total Bilirubin AST ALT Alkaline Phosphatase Troponin I 0.40 H* D Total Protein Albumin Globulin Albumin/Globulin Ratio Venous Blood Potassium 4.0 02/05/18 02/05/18 02/05/18 06:45 06:45 06:45 WBC RBC Hgb Hct MCV MCH MCHC RDW Plt Count MPV Gran % Lymph % (Auto) [place] % (Auto) Eos % (Auto) Baso % (Auto) Gran # Lymph # (Auto) [place] # (Auto) Eos # (Auto) Baso # (Auto) Neutrophils % (Manual) Band Neutrophils % Lymphocytes % (Manual) Monocytes % (Manual) Metamyelocytes % Platelet Evaluation APTT 23.4 L pO2 VBG pH VBG pCO2 VBG HCO3 VBG Total CO2 VBG O2 Sat (Calc) VBG Base Excess VBG Potassium Sodium 138 Chloride 102 Glucose Lactate FiO2 Potassium 4.8 Carbon Dioxide 18 L Anion Gap 22 H BUN 115 H Creatinine 7.1 H Est GFR ( Amer) 9 Est GFR (Non-Af Amer) 8 Random Glucose 376 H* D Calcium 9.2 Phosphorus 5.0 H Magnesium 2.6 H Total Bilirubin 0.4 AST 39 ALT 33 Alkaline Phosphatase 311 H Troponin I 0.58 H* D Total Protein 6.5 Albumin 3.0 Globulin 3.4 Albumin/Globulin Ratio 0.9 L Venous Blood Potassium 02/05/18 08:20 WBC 10.8 RBC 2.61 L Hgb 6.8 L* Hct 21.4 L MCV 82.0 MCH 26.1 MCHC 31.8 RDW 19.0 H Plt Count 415 MPV 8.9 Gran % Lymph % (Auto) [place] % (Auto) Eos % (Auto) Baso % (Auto) Gran # Lymph # (Auto) [place] # (Auto) Eos # (Auto) Baso # (Auto) Neutrophils % (Manual) Band Neutrophils % Lymphocytes % (Manual) Monocytes % (Manual) Metamyelocytes % Platelet Evaluation APTT pO2 VBG pH VBG pCO2 VBG HCO3 VBG Total CO2 VBG O2 Sat (Calc) VBG Base Excess VBG Potassium Sodium Chloride Glucose Lactate FiO2 Potassium Carbon Dioxide Anion Gap BUN Creatinine Est GFR ( Amer) Est GFR (Non-Af Amer) Random Glucose Calcium Phosphorus Magnesium Total Bilirubin AST ALT Alkaline Phosphatase Troponin I Total Protein Albumin Globulin Albumin/Globulin Ratio Venous Blood Potassium Assessment & Plan - Assessment and Plan (Free Text) Assessment: This is a 72yM with multiple co morbidities presenting with complaints of weakness and hypotention. 1. Anemia 2. Elevated Troponin 3. Sepsis, Hypotension on Pressor 4. Possible PNA 5. Hx of ESRD 6. Hx of Ischemic cardiomyopathy on milrinone 7. Hx of Lung Ca with mets to liver 8. Colostomy 9. Hx of GI bleeding 10. Chronic Afib Plan: -Continue supportive care -Sepsis protocol -Pressor support with IV Levophed -Anemia acute on chronic, hx of metastatic cancer, ESRD -No active GI Bleeding, colostomy with brown stool -Monitor H/H and transfuse as needed -Continue resuscitation with blood products and fluids -No plan for any GI endoscopic evaluation at this time -Prior EGDs and colonoscopies reviewed -Elevated troponin, further management per cardiology -Further medical management per primary/ICU team -Will continue to follow pt closely Case reviewed and discussed with Dr. Drummond who agrees with the above mentioned plan of care. <Hira Drummond - Last Filed: 02/06/18 12:29> Meds - Medications Medications: Current Medications Aspirin (Ecotrin) 81 mg PO DAILY [facility] Last Admin: 02/06/18 09:46 Dose: 81 mg Atorvastatin Calcium (Lipitor) 10 mg PO DAILY [facility] Last Admin: 02/06/18 09:46 Dose: 10 mg Digoxin (Lanoxin) 0.25 mg IVP Q4H [facility] Stop: 02/06/18 13:31 Last Admin: 02/06/18 09:40 Dose: 0.25 mg Finasteride (Proscar) 5 mg PO DAILY [facility] Last Admin: 02/06/18 09:46 Dose: 5 mg Furosemide (Lasix) 20 mg IVP BID [facility] Last Admin: 02/06/18 11:11 Dose: Not Given Milrinone Lactate/Dextrose (Primacor 20mg/100ml D5w) 100 mls @ 2.585 mls/hr IV .Q24H PRN; Protocol; 0.125 MCG/KG/MIN PRN Reason: TITRATE PER MD ORDER Last Admin: 02/06/18 06:51 Dose: 0.1 mcg/kg/min, 2.068 mls/hr Doxycycline Hyclate 100 mg/ (Sodium Chloride) 100 mls @ 100 mls/hr IVPB Q12 [facility] PRN Reason: Protocol Last Admin: 02/06/18 09:51 Dose: 100 mls/hr Sodium Chloride (Sodium Chloride 0.9%) 1,000 mls @ 80 mls/hr IV .[id number] [facility] Last Admin: 02/04/18 23:45 Dose: 80 mls/hr NOREPINEPHRINE BIT/0.9 % NACL (Levophed 4 Mg/ 250 Ml Ns Premixed) 4 mg in 250 mls @ 15 mls/hr IV .[id number] PRN; Protocol; 4 MCG/MIN PRN Reason: TITRATE PER MD ORDER Last Titration: 02/06/18 02:30 Dose: 0 mcg/min, 0 mls/hr Meropenem 500 mg/ Sodium (Chloride) 50 mls @ 100 mls/hr IVPB DAILY [facility] PRN Reason: Protocol Stop: 02/14/18 10:01 Last Admin: 02/06/18 09:46 Dose: 100 mls/hr Insulin Detemir (Levemir) 13 unit SC [facility] Insulin Human Lispro (Humalog Med) 0 units SC ACHS [facility] PRN Reason: Protocol Last Admin: 02/06/18 08:01 Dose: Not Given Pantoprazole Sodium (Protonix Ec Tab) 40 mg PO 0600 [facility] Results - Vital Signs Recent Vital Signs: Last Vital Signs Temp 98.3 F 02/06/18 04:00 Pulse 134 H 02/06/18 08:31 Resp 17 02/06/18 08:00 BP 99/50 L 02/06/18 11:11 Pulse Ox 85 L 02/06/18 08:00 - Labs Result Diagrams: 02/06/18 07:40 02/06/18 07:40 Labs: Laboratory Results - last 24 hr 02/05/18 02/05/18 02/05/18 06:38 08:20 11:14 WBC RBC Hgb Hct MCV MCH MCHC RDW Plt Count MPV Gran % Lymph % (Auto) [place] % (Auto) Eos % (Auto) Baso % (Auto) Gran # Lymph # (Auto) [place] # (Auto) Eos # (Auto) Baso # (Auto) PT INR Sodium Potassium Chloride Carbon Dioxide Anion Gap BUN Creatinine Est GFR ( Amer) Est GFR (Non-Af Amer) POC Glucose (mg/dL) 371 H 253 H Random Glucose Calcium Total Bilirubin AST ALT Alkaline Phosphatase Total Protein Albumin Globulin Albumin/Globulin Ratio Procalcitonin 23.64 H 02/05/18 02/05/18 02/05/18 15:30 16:19 23:58 WBC 15.0 H D RBC 2.99 L Hgb 8.1 L Hct 24.6 L MCV 82.3 MCH 27.1 MCHC 32.9 RDW 18.0 H Plt Count 462 H MPV 8.9 Gran % Lymph % (Auto) [place] % (Auto) Eos % (Auto) Baso % (Auto) Gran # Lymph # (Auto) [place] # (Auto) Eos # (Auto) Baso # (Auto) PT INR Sodium Potassium Chloride Carbon Dioxide Anion Gap BUN Creatinine Est GFR ( Amer) Est GFR (Non-Af Amer) POC Glucose (mg/dL) 289 H 174 H Random Glucose Calcium Total Bilirubin AST ALT Alkaline Phosphatase Total Protein Albumin Globulin Albumin/Globulin Ratio Procalcitonin 02/06/18 02/06/18 02/06/18 07:26 07:40 07:40 WBC 16.8 H RBC 2.92 L Hgb 7.9 L Hct 24.3 L MCV 83.2 MCH 27.1 MCHC 32.5 RDW 18.7 H Plt Count 389 MPV 8.8 Gran % 91.9 H Lymph % (Auto) 2.0 L [place] % (Auto) 5.9 Eos % (Auto) 0.2 L Baso % (Auto) 0.0 Gran # 15.39 H Lymph # (Auto) 0.3 L [place] # (Auto) 1.0 H Eos # (Auto) 0.0 Baso # (Auto) 0.00 PT INR Sodium 141 Potassium 4.5 Chloride 108 H Carbon Dioxide 16 L Anion Gap 21 H BUN 120 H Creatinine 6.9 H Est GFR ( Amer) 10 Est GFR (Non-Af Amer) 8 POC Glucose (mg/dL) 140 H Random Glucose 124 H Calcium 9.5 Total Bilirubin 0.4 AST 28 ALT 27 Alkaline Phosphatase 288 H Total Protein 6.2 Albumin 2.9 L Globulin 3.3 Albumin/Globulin Ratio 0.9 L Procalcitonin 02/06/18 07:40 WBC RBC Hgb Hct MCV MCH MCHC RDW Plt Count MPV Gran % Lymph % (Auto) [place] % (Auto) Eos % (Auto) Baso % (Auto) Gran # Lymph # (Auto) [place] # (Auto) Eos # (Auto) Baso # (Auto) PT 17.0 H INR 1.48 H Sodium Potassium Chloride Carbon Dioxide Anion Gap BUN Creatinine Est GFR ( Amer) Est GFR (Non-Af Amer) POC Glucose (mg/dL) Random Glucose Calcium Total Bilirubin AST ALT Alkaline Phosphatase Total Protein Albumin Globulin Albumin/Globulin Ratio Procalcitonin Attending/Attestation - Attestation I have personally seen and examined this patient.: Yes I have fully participated in the care of the patient.: Yes I have reviewed all pertinent clinical information: Yes Notes (Text): 02/06/18 12:27 This is a 72 yr old M with multiple co morbidities presenting with complaints of weakness and hypotention in setting of sepsis on pressor support with colostomy and brown stool. GI consulted for anemia and drop in Hb. responded to blood transfusion with brown stool in colostomy bag and brown stool on rectal exam. Troponin elevated. No indicaton for holding anti coagulation/ anti platelet as there is no active bleeding. Rest of care as per MICU.
--- NOTE | 2018-02-05 10:26 | RAD ---
Date of service: 02/05/2018 HISTORY: r/o venous congestions COMPARISON: 02/04/2018 FINDINGS: The right IJV line terminates at the cavoatrial junction. LUNGS: Interval improved aeration in the lungs. There is airspace disease in the right lower lobe and left mid lung. PLEURA: No significant pleural effusion identified, no pneumothorax apparent. CARDIOVASCULAR: Stable. OSSEOUS STRUCTURES: No significant abnormalities. VISUALIZED UPPER ABDOMEN: Normal. OTHER FINDINGS: Incompletely imaged aortic stent graft. IMPRESSION: Interval improved aeration in the lungs. Persistent right lower lobe pneumonia. Airspace disease in the left mid lung also likely represents focal consolidation. Follow-up is advised.
--- NOTE | 2018-02-05 11:12 | CP.PCM.PN ---
<Brendan Mc - Last Filed: 02/05/18 11:44> Subjective - Date & Time of Evaluation Date of Evaluation: 02/05/18 Time of Evaluation: 11:11 - Subjective Subjective: Medicine Progress Note Patient seen and examined at bedside. Patient in no acute distress. Patient is awake and able to answer some questioning translated by his . Patient reports pain in both sides of ribs, in which he is on chronic opioids. Pt denies CP, SOB, n/v/d, fever, chills, or KNOTT. Objective - Vital Signs/Intake and Output Vital Signs (last 24 hours): Temp Pulse Resp BP Pulse Ox 98 F 109 H 24 103/67 98 02/05/18 10:58 02/05/18 10:58 02/05/18 10:58 02/05/18 10:58 02/05/18 08:00 Intake and Output: 02/05/18 02/05/18 06:59 18:59 Intake Total 413 0 Output Total 300 Balance 113 0 - Medications Medications: Current Medications Aspirin (Ecotrin) 81 mg PO DAILY [facility] Last Admin: 02/05/18 09:25 Dose: 81 mg Atorvastatin Calcium (Lipitor) 10 mg PO DAILY [facility] Last Admin: 02/05/18 09:25 Dose: 10 mg Finasteride (Proscar) 5 mg PO DAILY [facility] Last Admin: 02/05/18 09:26 Dose: 5 mg Furosemide (Lasix) 20 mg IVP BID [facility] Milrinone Lactate/Dextrose (Primacor 20mg/100ml D5w) 100 mls @ 2.585 mls/hr IV .Q24H PRN; Protocol; 0.125 MCG/KG/MIN PRN Reason: TITRATE PER MD ORDER Last Admin: 02/04/18 22:35 Dose: 2.585 mls/hr Doxycycline Hyclate 100 mg/ (Sodium Chloride) 100 mls @ 100 mls/hr IVPB Q12 ANTHONY PRN Reason: Protocol Last Admin: 02/05/18 09:15 Dose: 100 mls/hr Sodium Chloride (Sodium Chloride 0.9%) 1,000 mls @ 80 mls/hr IV .[id number] [facility] Last Admin: 02/04/18 23:45 Dose: 80 mls/hr Meropenem 500 mg/ Sodium (Chloride) 50 mls @ 100 mls/hr IVPB Q12 ANTHONY PRN Reason: Protocol Stop: 02/14/18 10:01 Last Admin: 02/05/18 09:15 Dose: 100 mls/hr NOREPINEPHRINE BIT/0.9 % NACL (Levophed 4 Mg/ 250 Ml Ns Premixed) 4 mg in 250 mls @ 15 mls/hr IV .[id number] PRN; Protocol; 4 MCG/MIN PRN Reason: TITRATE PER MD ORDER Last Admin: 02/05/18 09:10 Dose: 4 mcg/min, 15 mls/hr Insulin Detemir (Levemir) 13 unit SC DAILY ANTHONY Insulin Human Lispro (Humalog Med) 0 units SC ACHS ANTHONY PRN Reason: Protocol Last Admin: 02/05/18 08:09 Dose: 8 units - Labs Labs: 02/05/18 08:20 02/05/18 06:45 PT 17.4 SECONDS (9.4-12.5) H 02/04/18 20:00 INR 1.51 (0.93-1.08) H 02/04/18 20:00 APTT 23.4 Seconds (25.1-36.5) L 02/05/18 06:45 - Constitutional Appears: No Acute Distress, Cachectic, Chronically Ill - Head Exam Head Exam: ATRAUMATIC, NORMAL INSPECTION, NORMOCEPHALIC - Eye Exam Eye Exam: Normal appearance Pupil Exam: NORMAL ACCOMODATION - ENT Exam ENT Exam: Mucous Membranes Moist - Neck Exam Neck Exam: Normal Inspection - Respiratory Exam Respiratory Exam: Clear to Ausculation Bilateral. absent: Rales, Rhonchi, Wheezes - Cardiovascular Exam Cardiovascular Exam: Tachycardia, +S1, +S2. absent: Clicks, Gallop, Irregular Rhythm, Murmur - GI/Abdominal Exam GI & Abdominal Exam: Soft. absent: Guarding, Tenderness, Mass, Rebound Additional comments: brown stool per colostomy bag, stoma pink with no signs of erythema or discharge - Extremities Exam Extremities Exam: Normal Inspection - Back Exam Additional comments: lateral rib pain TTP - Neurological Exam Neurological Exam: Alert, Awake, CN II-XII Intact - Psychiatric Exam Psychiatric exam: Flat Affect - Skin Skin Exam: Dry, Intact, Normal Color, Warm Assessment and Plan - Assessment and Plan (Free Text) Assessment: Pt is a 72 yo male with a PMH of CVA, lung CA (radiation), Atrial Fibrillation, CAD, CHF, endocarditis, AAA, AVR, angina pectoris, coronary stents x 3m port to right upper chest, diabetes type 2, metastatic liver disease and colostomy, accompanied by his , presents to the emergency department complaining of hyperglycemia and hypotension. Pt admitted to the ICU for evaluation and treatment for septic shock likely 2/2 HCAP. Plan: Septic Shock -Likely 2/2 HCAP -CXR showed multifocal penumonia in the right lung and left lower lobe -Repeat CXR showed interval improved areation in the lungs. Persistent right lower lobe pneumonia. Focal consolidation in the left mid lung. -UA showing leukocyte esterase and WBC, negative nitrates -Lactic acid WNL now -On Levophed -Cont Merrem and Doxycycline -NS 80 cc/hr, held due to h/o chronic systolic HF -F/u panculture -repeat lactic acid -head, chest, abdomen, and pelvis non contrast CT -ID consulted Anemia of Chronic Disease -Hgb 6.7 today -Risks and benefits explained to patient and family, who consented to transfusion -1 unit pRBC transfused -F/u CBC post transfusion -Stool occult blood ordered -GI Consulted Elevated Troponins -Etiology: Hypotension, demand ischemia in setting of ESRD on HD vs ACS -EKG sinus tachycardia no evidence of acute ST-T wave changes -Troponin 0.13, 0.40, 0.58 -Cardiology consulted Chronic Systolic CHF -Last echo (07/03) showed EF 19% -Cardiac cath (10/02) showed EF 15% -Cont Milrinone -Holding fluids -Cont Lasix, will give one dose after transfusion -Cardiology consulted Elevated Anion Gap Metabolic Acidosis -Improving, AG 22 -> 18 -Likely 2/2 lactic acidosis -Cont to monitor Stage 1-2 Sacral Decubitus Ulcer -Turn patient q2h -Wound care consulted ESDR on HD -Continue home medications -Consult Nephrology, appreciate recs DM2 -Hyperglycemic 2/2 non-compliance -Levemir held as pt is NPO -ISS-med -Accuchecks Q6h History of CAD -continue ASA 81mg, Lipitor 10mg -holding anti-hypertensives at this time secondary hypotension in the setting of sepsis History of Atrial Fibrillation on anticoagulation -Warfarin used for AC, INR 1.5 subtherapeutic at this point -pt warfarin has been held due to upper GI bleed from [facility] 1 month prior Patient see and discussed in detail with Dr. James. Isaac Mc, PGY2 <Lurdes James R - Last Filed: 02/05/18 14:48> Objective - Vital Signs/Intake and Output Vital Signs (last 24 hours): Temp Pulse Resp BP Pulse Ox 98 F 108 H 16 106/62 98 02/05/18 12:02 02/05/18 12:03 02/05/18 12:03 02/05/18 12:04 02/05/18 12:00 Intake and Output: 02/05/18 02/05/18 06:59 18:59 Intake Total 413 0 Output Total 300 Balance 113 0 - Medications Medications: Current Medications Aspirin (Ecotrin) 81 mg PO DAILY [facility] Last Admin: 02/05/18 09:25 Dose: 81 mg Atorvastatin Calcium (Lipitor) 10 mg PO DAILY [facility] Last Admin: 02/05/18 09:25 Dose: 10 mg Finasteride (Proscar) 5 mg PO DAILY [facility] Last Admin: 02/05/18 09:26 Dose: 5 mg Furosemide (Lasix) 20 mg IVP BID [facility] Milrinone Lactate/Dextrose (Primacor 20mg/100ml D5w) 100 mls @ 2.585 mls/hr IV .Q24H PRN; Protocol; 0.125 MCG/KG/MIN PRN Reason: TITRATE PER MD ORDER Last Admin: 02/04/18 22:35 Dose: 2.585 mls/hr Doxycycline Hyclate 100 mg/ (Sodium Chloride) 100 mls @ 100 mls/hr IVPB Q12 ANTHONY PRN Reason: Protocol Last Admin: 02/05/18 09:15 Dose: 100 mls/hr Sodium Chloride (Sodium Chloride 0.9%) 1,000 mls @ 80 mls/hr IV .[id number] [facility] Last Admin: 02/04/18 23:45 Dose: 80 mls/hr Meropenem 500 mg/ Sodium (Chloride) 50 mls @ 100 mls/hr IVPB Q12 ANTHONY PRN Reason: Protocol Stop: 02/14/18 10:01 Last Admin: 02/05/18 09:15 Dose: 100 mls/hr NOREPINEPHRINE BIT/0.9 % NACL (Levophed 4 Mg/ 250 Ml Ns Premixed) 4 mg in 250 mls @ 15 mls/hr IV .[id number] PRN; Protocol; 4 MCG/MIN PRN Reason: TITRATE PER MD ORDER Last Admin: 02/05/18 09:10 Dose: 4 mcg/min, 15 mls/hr Insulin Detemir (Levemir) 13 unit SC HS ANTHONY Insulin Human Lispro (Humalog Med) 0 units SC Q6 ANTHONY PRN Reason: Protocol - Labs Labs: 02/05/18 08:20 02/05/18 06:45 PT 17.4 SECONDS (9.4-12.5) H 02/04/18 20:00 INR 1.51 (0.93-1.08) H 02/04/18 20:00 APTT 23.4 Seconds (25.1-36.5) L 02/05/18 06:45 Attending/Attestation - Attestation I have personally seen and examined this patient.: Yes I have fully participated in the care of the patient.: Yes I have reviewed all pertinent clinical information, including history, physical exam and plan: Yes Notes (Text): Patient seen and examined by me at 08:25AM with resident. Case including HPI, physical exam, and physical assessment and plan discussed with resident. Agree with above with following additions/corrections. Patient is a 72-year-old male with past medical history significant for CVA, lung cancer with metastatic disease to the liver, atrial fibrillation off Coumadin secondary to GI bleed, coronary artery disease, CHF maintained on milrinone drip, endocarditis, AAA, chronic kidney disease, anemia, and type 2 diabetes that presented to the emergency room with hyperglycemia and hypotension. Unable to obtain history from patient as patient is not answering questions. History obtained from patient's at bedside. Per , she has been taking good care of of patient at home. She states he has been urinating a lot. She believes that this current condition is secondary to patient not eating or drinking yesterday. Patient does have chronic pain secondary to cancer. Patient is complaining of abdominal pain when abdomen is palpated. Unable to obtain review of systems from patient as patient is not answering questions. Patient is on milrinone drip and started on norepi. Patient is afebrile. Grimaldo catheter in place. Physical exam: Gen: Awake and alert lying in bed in no acute distress, cachectic, chronically ill appearing HEENT: Normocephalic atraumatic. Extraocular muscles intact, pupils equal reactive. Oropharynx is pink. Positive dry mucous membranes. Unable to visualize posterior pharynx as patient not opening mouth wide. Neck is supple. Cardiovascular: Distant heart sounds, unable to appreciated murmurs, rubs, gallops secondary gurgling sounds, patient not holding breath when asked to. Pulmonary: Normal respiratory effort. Coarse breath sounds throughout. No wheezing appreciated. Gastrointestinal: Soft, positive tenderness with mild palpitation, nondistended , positive bowel sounds all 4 quadrants, no guarding, positive colostomy bag with brown stool Musculoskeletal: appears to move all extremities, no edema appreciated. Central nervous system: Alert and awake. Patient not answering questions and not following commands. Dermatologic: Skin warm and dry, positive stage 1-2 decubitus ulcer sacrum Assessment and plan: Patient is a 72-year-old male with past medical history significant for CVA, lung cancer with metastatic disease to the liver, atrial fibrillation off Coumadin secondary to GI bleed, coronary artery disease, CHF maintained on milrinone drip, endocarditis, AAA, chronic kidney disease, anemia , and type 2 diabetes that presented to the emergency room with hyperglycemia and hypotension. Patient was admitted with sepsis. 1. Sepsis. IV fluids held as patient with very low EF, on milrinone drip s/p ICD. Patient started on pressors, wean as tolerated. Cardiology following, recommendations appreciated. Chest xray as read by me shows right sided pneumonia, possible left sided pneumonia. Pending CT abd/pelvis/Chest. ID following, recommendations appreciated. Patient on doxy and meropenem. Leukocytosis resolvelacd. Lactic acid normalized. Afebrile. ? Aspiration pneumonia. Pending swallow evaluation. Passed bedside swallow eval. Aspiration precautions. ?UTI, abnormal urinalysis, pending urine culture. Pending blood culture. Monitor in ICU. 2. Elevated troponin in a patient with CAD and systolic CHF with low EF on milrinone drip s/p ICD. Likey secondary to demand ischemia, acute renal failure , CHF. Uptrending. Cardiology following, recommendations appreciated. Continue with ASA per cardiology. Continue milrinone drip and lasix. 3. Acute on chronic renal failure. Metabolic acidosis. Slightly improved. Patient was given bicarb. Patient is a poor dialysis candidate. Discussed with patient's . Family does not currently want dialysis. Nephrology consulted, follow up recommendations. NO IV fluids secondary to low EF. Grimaldo catheter in place, monitor ins and outs. 4. Acute on chronic anemia. Does not appear to be GI bleed. Likely secondary to renal disease. Stool for OB pending. Colostomy bag with brown stool. GI consulted. Patient being transfused 1 unit PRBC. Follow up repeat CBC 4 hours post transfusion. Keep Hgb > 8 in patient with CAD. Continue ASA per cardio. Subq heparin held. Continue to monitor CBC. 5. Atrial fibrillation, in sinus rhythm here Patient was previously on coumadin which was stopped secondary to GI bleed. EKG shows sinus tachycardia. Monitor on telemetry for now. Care per cardiology team. 6. DM2 with hyperglycemia. Likely elevated secondary to sepsis. Patient is NPO. Continue with insulin sliding scale. Monitor accuchecks. Will likely need to be started on long acting insulin 7. History of Lung cancer with liver mets. CT abd/pelvis/chest pending. ? whether further treatment will be done secondary to co-morbidities. 8. Abnormal urinalysis. Possible UTI. Pending urine culture. 9. Decubitus ulcer present on admission. Continue wound care. 10. History of CVA. Continue ASA and lipitor. Head CT per radiologist shows no acute intracranial abnormality, old lacunar infarctions in the blanchard radiata and left basal ganglia, severe chronic microangiopathic changes and moderate age related global parenchymal volume loss. 11. Patient is a full code. Palliative care consulted. Case was discussed in detail with patient, patient's at bedside, cardiology Dr. Mathews, and medical records tech at bedside regarding current diagnosis and treatment plan
--- NOTE | 2018-02-05 12:23 | CARD ---
APPROVED REPORT Date of service: 02/05/2018 EKG Measurement Heart [id number] <Conclusion> Sinus tachycardia with 1st degree AV block with fusion complexes Rightward axis Incomplete left bundle branch block ST & T wave abnormality, consider lateral ischemia Abnormal ECG
--- NOTE | 2018-02-05 12:24 | CARD ---
APPROVED REPORT Date of service: 02/04/2018 EKG Measurement Heart [id number] MD [id number] <Conclusion> Sinus tachycardia with 1st degree AV block Rightward axis Nonspecific intraventricular block Possible Inferior infarct, age undetermined T wave abnormality, consider lateral ischemia Abnormal ECG
--- NOTE | 2018-02-05 13:15 | CON ---
DATE: 02/05/2018 LOCATION: The patient seen early this morning in the CCU 129, bed 2. CHIEF COMPLAINT: Weakness times several days. HISTORY OF PRESENT ILLNESS: This is a 72-year-old male with a history of cerebrovascular accident, lung cancer, status post radiation; the patient with history of endocarditis, history of congestive heart failure, coronary artery disease, atrial fibrillation, abdominal aortic aneurysm, aortic valve replacement and cardiac stents and a Port-A-Cath who was also a diabetic and has liver metastasis and has a colostomy, was admitted because of weakness and found to be hypotensive in the Emergency Room. Infectious Disease consultation requested, the patient is in the CCU this morning. REVIEW OF SYSTEMS: A 12-point review of systems is performed. The patient has had no fevers, but his is complaining of chills, weakness, shortness of breath and cough, nonproductive and diffuse abdominal pain. No dysuria or frequency. PAST MEDICAL HISTORY: Significant for cerebrovascular accident; lung cancer with liver metastasis, status post radiation; congestive heart failure; coronary artery disease; atrial fibrillation; abdominal aortic aneurysm; BPH; cataracts, seizures, anxiety and depression. PAST SURGICAL HISTORY: Significant for AVR, cardiac cath, colostomy, Port-A-Cath and a pacemaker. ALLERGIES: THE PATIENT HAS NO KNOWN ALLERGIES. MEDICATIONS AT HOME: Include Coumadin, milrinone, insulin, Lasix, aspirin, Lipitor and amiodarone. PHYSICAL EXAMINATION: GENERAL: The patient is in bed; appearing chronically ill, debilitated, end stage. VITAL SIGNS: Temperature of 98.2, heart rate of 106, respiratory rate in the Emergency Room was up to 32, blood pressure is down to 83/48, O2 saturation is down to 94, the BMI is only 20. HEENT: Temporal wasting. NECK: Supple. LUNGS: Have decreased breath sounds. HEART: Normal S1, S2. ABDOMEN: Soft, mild tenderness. No rebound or guarding. No masses. LABORATORY DATA: Laboratory examination reveals a white count of 11,700, hemoglobin of 7 and platelets of 527 with 91% granulocytosis. Coagulation is noted. BUN of 115 and creatinine is 7.1. Glucose is 376. The patient's troponins are positive x2. The patient's carbon dioxide is 18, anion gap of 22. Last creatinine 7.1, actually yesterday his creatinine was 8.3; prior to that, the patient's creatinine in 12/2017 was 5, prior to that was 3. Urinalysis reveals 25-30 wbc's, yeast and bacteria present and the patient had a chest x-ray, it was not read. Review of the chest x-ray revealed infiltrates. Review of orders revealed the patient has been started on doxycycline, milrinone and was given ceftriaxone and a dose of vancomycin. ASSESSMENT AND PLAN: This is a 72-year-old male, end-stage patient, with lung cancer with liver metastases and history of endocarditis, diabetes, coronary artery disease, congestive heart failure, atrial fibrillation, presenting with severe sepsis with hypotension, tachycardia, dyspnea and infiltrate with severe sepsis with metabolic acidosis, with increased anion gap, was secondary to healthcare-associated possible gram positive cocci, possible gram-negative avis pneumonia with acute kidney injury on top of chronic kidney disease. We will treat the patient with vancomycin, meropenem, doxycycline, wants to rule out bacteremia and check on the blood cultures, urine cultures, sputum culture and procalcitonin. Overall prognosis is quite poor for this patient with multiple hospitalizations and no quality of life. Walt Conner MD
--- NOTE | 2018-02-05 14:21 | CT ---
Date of service: 02/05/2018 PROCEDURE: CT HEAD WITHOUT CONTRAST. HISTORY: Evaluate for metastasis COMPARISON: 10/03/2017. TECHNIQUE: Axial computed tomography images were obtained through the head/brain without intravenous contrast. Radiation dose: Total exam DLP = 900.69 MGy-cm. This CT exam was performed using one or more of the following dose reduction techniques: Automated exposure control, adjustment of the mA and/or kV according to patient size, and/or use of iterative reconstruction technique. FINDINGS: HEMORRHAGE: No intracranial hemorrhage. BRAIN: There are severe chronic microangiopathic changes. There are old lacunar infarctions in the blanchard radiata and left basal ganglia. There is no mass, mass effect or abnormal extra-axial fluid collection. There is no territorial infarction. The midline sagittal structures are normal. VENTRICLES: There is moderate age-related global parenchymal volume loss and proportionate enlargement of the ventricles and cortical sulci. CALVARIUM: The skull base and calvarium are normal. PARANASAL SINUSES: There is fluid in the left maxillary sinus. The remaining included paranasal sinuses are predominantly clear. MASTOID AIR CELLS: Bilateral mastoid air cells are underdeveloped. There is cerumen in the left external auditory canal. OTHER FINDINGS: None. IMPRESSION: No acute intracranial abnormality. Old lacunar infarctions in the blanchard radiata and left basal ganglia. Severe chronic microangiopathic changes and moderate age-related global parenchymal volume loss.
--- NOTE | 2018-02-05 15:05 | CT ---
Date of service: 02/05/2018 PROCEDURE: CT Chest, Abdomen and Pelvis without intravenous contrast HISTORY: evaluation of ?pneumonia v. prog cancer COMPARISON: None. TECHNIQUE: Radiation dose: Total exam DLP = mGy-cm. This CT exam was performed using one or more of the following dose reduction techniques: Automated exposure control, adjustment of the mA and/or kV according to patient size, and/or use of iterative reconstruction technique. FINDINGS: CT CHEST WITHOUT CONTRAST: LUNGS: There is a large peripheral bulla in the right upper lobe. There is an area of ground-glass attenuation in the posterior segment of the right upper lobe. There is multifocal consolidation in the lingula and both lower lobes, worse in the right lower lobe with extensive involvement. There are tree in bud opacities in the lateral segment of the right middle lobe and in the superior segment of the right lower lobe. There are no endobronchial lesions. MEDIASTINUM: The heart is normal in size. There is trace pericardial effusion. There is aneurysmal dilatation of the descending aorta. LYMPH NODES: No bulky mediastinal adenopathy. PLEURA: Unremarkable. No pneumothorax. No pleural fluid. BONES: Unremarkable. OTHER FINDINGS: None. CT ABDOMEN AND PELVIS: LIVER: Redemonstration of metastatic lesions the largest in the posterior dome measures 3.5 x 4.3 cm. . No gross lesion or ductal dilatation. GALLBLADDER AND BILE DUCTS: No calcified gallstones. PANCREAS: Normal in size. No gross lesion or ductal dilatation. SPLEEN: Normal in sinus. ADRENALS: Normal right adrenal gland. Stable adenoma in the left adrenal gland. KIDNEYS AND URETERS: Both kidneys are normal in size. No hydronephrosis. There is redemonstration of multiple in both kidneys, more numerous in the left with presumable hemorrhagic cysts in the lower pole. VASCULATURE: Redemonstration of large fusiform infrarenal aortic aneurysm with aorto iliac stent grafts in place. BOWEL: The small bowel loops are normal in caliber. There is a right lower quadrant ostomy PERITONEUM: No free fluid. No free air. LYMPH NODES: No enlarged lymph nodes. BLADDER: Indwelling Grimaldo catheter in the urinary bladder with subsequent decompression and expected intraluminal air. REPRODUCTIVE: There is mild enlargement of the prostate gland. BONES: No acute fracture. Diffuse bone demineralization and advanced multilevel degenerative disc disease. OTHER FINDINGS: There is a multinodular thyroid gland. IMPRESSION: 1. Multifocal pneumonia involving the posterior segment of the right upper lobe, lingula and both lower lobes, worse in the right lower lobe with dense consolidation. 2. Please note this examination is limited due to absence of intravenous contrast. Allowing for this, redemonstration of hepatic metastasis, the larger lesion in the posterior hepatic dome measures 3.5 x 4.3 cm. 3. No other significant interval change.
[2018-02-05 16:04] LABS: HEMOGLOBIN 8.1 g/dL (14.0-18.0); MEAN CELL VOLUME 82.3 fl (80.0-105.0); MEAN CORPUSCULAR HEMOGLOBIN 27.1 pg (25.0-35.0); MEAN CORPUSCULAR HGB CONC 32.9 g/dl (31.0-37.0); MEAN PLATELET VOLUME 8.9 fl (7.0-11.0); RBC 2.99 10^6/uL (3.5-6.1)
[2018-02-05] MEDS ORDERED: Insulin Lispro (humaLOG) MEDIUM Coverage SC SCH (18:00)
--- NOTE | 2018-02-05 22:36 | CON ---
DATE: 02/05/2018 REASON FOR CONSULTATION: Coronary artery disease, cardiomyopathy on milrinone at home, admitted with hypoglycemia, hypotension and possible pneumonia. BRIEF CLINICAL HISTORY: This is a 72-year-old male with past medical history significant for ischemic cardiomyopathy status post PTCA of LAD done in past by Dr. 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 The patient is on home Primacor. The patient was found to be acute kidney injury, chronic renal insufficiency, hypotensive as well as chest x-ray consistent with Gram-negative avis pneumonia. The patient is awake, alert, but slow in response. The is at the bedside. Denies any chest pain, shortness of breath, any palpitations. 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 Fransico Cabral 4 years ago, history of AICD. 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 SOCIAL HISTORY: Denies smoking. Denies any history of alcohol abuse. The patient's last echo on 07/14/2017 that shows concentric LVH, severely impaired LV function, global hypokinesis, read by Dr. Cowan, mild aortic regurgitation, severe mitral regurgitation, moderate tricuspid regurgitation, moderate pulmonary hypertension, RV systolic pressure of 51. REVIEW OF SYSTEMS: As per HPI. CURRENT MEDICATIONS: The patient is taking at home metolazone, Coumadin, Flomax, multivitamin, milrinone, magnesium, Lasix, ferrous sulphate, famotidine, atorvastatin, aspirin and amiodarone. ALLERGIES: NO KNOWN DRUG ALLERGIES. PHYSICAL EXAMINATION: VITAL SIGNS: Temperature afebrile, heart rate 106, blood pressure 95/58 on Levophed and milrinone. HEENT: PERRLA. Extraocular muscles intact. NECK: Supple. No carotid bruit or thyromegaly. CHEST: Clear to auscultation. HEART: S1 and S2 regular. ABDOMEN: Soft. EXTREMITIES: Clubbing and cyanosis negative. LABORATORY DATA: Blood workup as follows; WBC 10.8, hemoglobin 6.8, hematocrit 21.4, platelet count 415. Chemistry shows sodium 130, potassium , carbon dioxide 18, anion gap of 22, BUN 115 and creatinine 7.1. Troponin 0.58. EKG shows sinus tachycardia, first-degree AV block. 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 RECOMMENDATIONS: Discussed with possibly transfuse 2 units of blood, evaluation for dialysis, continue gentle diuretics as tolerated. Continue Levophed, continue milrinone. Overall, the patient's critical long term care phlebotomist prognosis is guarded. Discussed with the . The is not ready for DNR now. We will follow with you. As mentioned, overall patient's condition is critical. Prognosis is extremely guarded. Continue broad spectrum antibiotics, chest x-ray reviewed, appears right lower lobe pneumonia. We will repeat chest x-ray in the morning. Possibly aspiration. Arabella Mathews MD
[2018-02-06] MEDS ORDERED: Sodium Chloride 0.9% 250 ML IV STA ×2 (02:43→17:31)
[2018-02-06] MEDS: Milrinone 20mg/100ml D5W 100 ML IV PRN (06:51)
--- NOTE | 2018-02-06 07:19 | CP.PCM.PN ---
Subjective - Date & Time of Evaluation Date of Evaluation: 02/06/18 - Subjective Subjective: Subjective: Physical Examination: Assessment and Plan: Objective - Vital Signs/Intake and Output Vital Signs (last 24 hours): Temp Pulse Resp BP Pulse Ox 98.3 F 121 H 27 H 110/72 98 02/06/18 04:00 02/06/18 06:51 02/06/18 06:50 02/06/18 06:51 02/06/18 06:50 Intake and Output: 02/06/18 02/06/18 06:59 18:59 Intake Total 688 Output Total 400 Balance 288 - Medications Medications: Current Medications Aspirin (Ecotrin) 81 mg PO DAILY [facility] Last Admin: 02/05/18 09:25 Dose: 81 mg Atorvastatin Calcium (Lipitor) 10 mg PO DAILY [facility] Last Admin: 02/05/18 09:25 Dose: 10 mg Finasteride (Proscar) 5 mg PO DAILY [facility] Last Admin: 02/05/18 09:26 Dose: 5 mg Furosemide (Lasix) 20 mg IVP BID [facility] Last Admin: 02/05/18 17:00 Dose: 20 mg Milrinone Lactate/Dextrose (Primacor 20mg/100ml D5w) 100 mls @ 2.585 mls/hr IV .Q24H PRN; Protocol; 0.125 MCG/KG/MIN PRN Reason: TITRATE PER MD ORDER Last Admin: 02/06/18 06:51 Dose: 0.1 mcg/kg/min, 2.068 mls/hr Doxycycline Hyclate 100 mg/ (Sodium Chloride) 100 mls @ 100 mls/hr IVPB Q12 [facility] PRN Reason: Protocol Last Admin: 02/05/18 23:00 Dose: 100 mls/hr Sodium Chloride (Sodium Chloride 0.9%) 1,000 mls @ 80 mls/hr IV .[id number] [facility] Last Admin: 02/04/18 23:45 Dose: 80 mls/hr Meropenem 500 mg/ Sodium (Chloride) 50 mls @ 100 mls/hr IVPB Q12 [facility] PRN Reason: Protocol Stop: 02/14/18 10:01 Last Admin: 02/05/18 22:00 Dose: 100 mls/hr NOREPINEPHRINE BIT/0.9 % NACL (Levophed 4 Mg/ 250 Ml Ns Premixed) 4 mg in 250 mls @ 15 mls/hr IV .[id number] PRN; Protocol; 4 MCG/MIN PRN Reason: TITRATE PER MD ORDER Last Titration: 02/06/18 02:30 Dose: 0 mcg/min, 0 mls/hr Insulin Detemir (Levemir) 13 unit SC HS [facility] Insulin Human Lispro (Humalog Med) 0 units SC ACHS [facility] PRN Reason: Protocol - Labs Labs: 02/05/18 15:30 02/05/18 06:45 PT 17.4 SECONDS (9.4-12.5) H 02/04/18 20:00 INR 1.51 (0.93-1.08) H 02/04/18 20:00 APTT 23.4 Seconds (25.1-36.5) L 02/05/18 06:45
[2018-02-06 07:53] LABS: EOS % 0.2 % (1.5-5.0); GRAN # 15.39 (1.4-6.5); GRAN % 91.9 % (50.0-68.0); HEMOGLOBIN 7.9 g/dL (14.0-18.0); LYMPH # 0.3 (1.2-3.4); MEAN CELL VOLUME 83.2 fl (80.0-105.0); MEAN CORPUSCULAR HEMOGLOBIN 27.1 pg (25.0-35.0); MEAN CORPUSCULAR HGB CONC 32.5 g/dl (31.0-37.0); MEAN PLATELET VOLUME 8.8 fl (7.0-11.0); MONO % 5.9 % (1.0-6.0); RBC 2.92 10^6/uL (3.5-6.1); RED CELL DISTRIBUTION WIDTH 18.7 % (11.5-14.5); WHITE BLOOD COUNT 16.8 10^3/ul (4.5-11.0)
[2018-02-06 07:57] LABS: INR 1.48 (0.93-1.08)
[2018-02-06] MEDS: Insulin Lispro (humaLOG) MEDIUM Coverage SC SCH ×3 (08:01→16:17)
[2018-02-06 08:06] LABS: ALB/GLOB RATIO 0.9 (1.1-1.8); ALBUMIN 2.9 g/dL (3.0-4.8); CALCIUM 9.5 mg/dL (8.4-10.5)
--- NOTE | 2018-02-06 09:17 | RAD ---
Date of service: 02/06/2018 HISTORY: R/O pneumonia Vs CHF COMPARISON: 02/05/2018 FINDINGS: LUNGS: No significant change in the right lower lobe and left upper lobe infiltrate PLEURA: No significant pleural effusion identified, no pneumothorax apparent. CARDIOVASCULAR: Normal. OSSEOUS STRUCTURES: No significant abnormalities. VISUALIZED UPPER ABDOMEN: Normal. OTHER FINDINGS: Single lead pacemaker. Right-sided Port-A-Cath IMPRESSION: No significant change in the right lower lobe and left upper lobe infiltrate
[2018-02-06] MEDS: Digoxin 500 mcg/2ml (0.5 mg/2ml) Inj IVP SCH ×2 (09:40→13:15)
[2018-02-06] MEDS: Meropenem 500 MG in Sodium Chloride 0.9% 50 ML IVPB SCH (09:46)
--- NOTE | 2018-02-06 10:16 | US ---
HISTORY: Leg pain and swelling. Evaluate for DVT PHYSICIAN(S): Isaías Infante MD. TECHNIQUE: Duplex sonography and color-flow Doppler with graded compression were used to evaluate the deep venous systems of both lower extremities. The patient is confused and unable to cooperate. FINDINGS: The visualized deep venous systems of both lower extremities are sonographically normal and compressible. Normal wave forms and augmentation are seen. There is no sonographic evidence for deep venous thrombosis in the visualized segments of both lower extremities. IMPRESSION: No sonographic evidence for deep venous thrombosis in the visualized segments of both lower extremities.
--- NOTE | 2018-02-06 11:00 | CP.PCM.PN ---
<Kade Bertrand - Last Filed: 02/06/18 10:57> Subjective - Date & Time of Evaluation Date of Evaluation: 02/06/18 Time of Evaluation: 10:30 - Subjective Subjective: PGY-4 GI Fellow Prog Note Pt seen and examined with at bedside interpreting. denies any known issues with the stomach right now and has not noticed any bleeding. 5 point ROS negative other than stated above, though limited due to patient condition Objective - Vital Signs/Intake and Output Vital Signs (last 24 hours): Temp Pulse Resp BP Pulse Ox 98.3 F 134 H 17 112/58 L 85 L 02/06/18 04:00 02/06/18 08:31 02/06/18 08:00 02/06/18 08:31 02/06/18 08:00 Intake and Output: 02/06/18 02/06/18 06:59 18:59 Intake Total 688 Output Total 400 Balance 288 - Medications Medications: Current Medications Aspirin (Ecotrin) 81 mg PO DAILY [facility] Last Admin: 02/06/18 09:46 Dose: 81 mg Atorvastatin Calcium (Lipitor) 10 mg PO DAILY [facility] Last Admin: 02/06/18 09:46 Dose: 10 mg Digoxin (Lanoxin) 0.25 mg IVP Q4H [facility] Stop: 02/06/18 13:31 Last Admin: 02/06/18 09:40 Dose: 0.25 mg Finasteride (Proscar) 5 mg PO DAILY [facility] Last Admin: 02/06/18 09:46 Dose: 5 mg Furosemide (Lasix) 20 mg IVP BID [facility] Last Admin: 02/05/18 17:00 Dose: 20 mg Milrinone Lactate/Dextrose (Primacor 20mg/100ml D5w) 100 mls @ 2.585 mls/hr IV .Q24H PRN; Protocol; 0.125 MCG/KG/MIN PRN Reason: TITRATE PER MD ORDER Last Admin: 02/06/18 06:51 Dose: 0.1 mcg/kg/min, 2.068 mls/hr Doxycycline Hyclate 100 mg/ (Sodium Chloride) 100 mls @ 100 mls/hr IVPB Q12 [facility] PRN Reason: Protocol Last Admin: 02/06/18 09:51 Dose: 100 mls/hr Sodium Chloride (Sodium Chloride 0.9%) 1,000 mls @ 80 mls/hr IV .[id number] [facility] Last Admin: 02/04/18 23:45 Dose: 80 mls/hr NOREPINEPHRINE BIT/0.9 % NACL (Levophed 4 Mg/ 250 Ml Ns Premixed) 4 mg in 250 mls @ 15 mls/hr IV .[id number] PRN; Protocol; 4 MCG/MIN PRN Reason: TITRATE PER MD ORDER Last Titration: 02/06/18 02:30 Dose: 0 mcg/min, 0 mls/hr Meropenem 500 mg/ Sodium (Chloride) 50 mls @ 100 mls/hr IVPB DAILY [facility] PRN Reason: Protocol Stop: 02/14/18 10:01 Last Admin: 02/06/18 09:46 Dose: 100 mls/hr Insulin Detemir (Levemir) 13 unit SC HS [facility] Insulin Human Lispro (Humalog Med) 0 units SC ACHS [facility] PRN Reason: Protocol Last Admin: 02/06/18 08:01 Dose: Not Given Pantoprazole Sodium (Protonix Ec Tab) 40 mg PO 0600 [facility] - Labs Labs: 02/06/18 07:40 02/06/18 07:40 PT 17.0 SECONDS (9.4-12.5) H 02/06/18 07:40 INR 1.48 (0.93-1.08) H 02/06/18 07:40 APTT 23.4 Seconds (25.1-36.5) L 02/05/18 06:45 - Constitutional Appears: No Acute Distress, Confused, Cachectic, Chronically Ill - Eye Exam Eye Exam: EOMI. absent: Conjunctival injection, Scleral icterus - Respiratory Exam Respiratory Exam: NORMAL BREATHING PATTERN. absent: Accessory Muscle Use, Respiratory Distress - Cardiovascular Exam Cardiovascular Exam: Tachycardia. absent: Irregular Rhythm - GI/Abdominal Exam GI & Abdominal Exam: Distended (mildly), Soft, Normal Bowel Sounds. absent: Firm, Guarding, Rigid Additional comments: midline abd scar, RLQ ileostomy with browish-green output, stoma pink Assessment and Plan - Assessment and Plan (Free Text) Assessment: 72yM with multiple co morbidities presenting with complaints of weakness and hypotention. # Anemia: No signs of active GI bleed at this time. Hgb stable and output non bloody. # Elevated Troponin # Sepsis due to PNA, GNR in Urine # Hx of ESRD # Hx of Ischemic cardiomyopathy on milrinone # Hx of Lung Ca with mets to liver # Colostomy # Chronic Afib Plan: -Continue supportive care -OK for anticoag/antiplatelet as necessary from GI standpoint -No plans for endoscopic evaluation -Monitor H/H and transfuse as needed -Further medical management per primary/ICU team, cardiology Pt seen and examined with Dr. Drummond Thank you for the consult. Will sign off, please page if questions. <Hira Drummond - Last Filed: 02/06/18 12:30> Objective - Vital Signs/Intake and Output Vital Signs (last 24 hours): Temp Pulse Resp BP Pulse Ox 98.3 F 134 H 17 99/50 L 85 L 02/06/18 04:00 02/06/18 08:31 02/06/18 08:00 02/06/18 11:11 02/06/18 08:00 Intake and Output: 02/06/18 02/06/18 06:59 18:59 Intake Total 688 Output Total 400 Balance 288 - Medications Medications: Current Medications Aspirin (Ecotrin) 81 mg PO DAILY [facility] Last Admin: 02/06/18 09:46 Dose: 81 mg Atorvastatin Calcium (Lipitor) 10 mg PO DAILY [facility] Last Admin: 02/06/18 09:46 Dose: 10 mg Digoxin (Lanoxin) 0.25 mg IVP Q4H [facility] Stop: 02/06/18 13:31 Last Admin: 02/06/18 09:40 Dose: 0.25 mg Finasteride (Proscar) 5 mg PO DAILY [facility] Last Admin: 02/06/18 09:46 Dose: 5 mg Furosemide (Lasix) 20 mg IVP BID [facility] Last Admin: 02/06/18 11:11 Dose: Not Given Milrinone Lactate/Dextrose (Primacor 20mg/100ml D5w) 100 mls @ 2.585 mls/hr IV .Q24H PRN; Protocol; 0.125 MCG/KG/MIN PRN Reason: TITRATE PER MD ORDER Last Admin: 02/06/18 06:51 Dose: 0.1 mcg/kg/min, 2.068 mls/hr Doxycycline Hyclate 100 mg/ (Sodium Chloride) 100 mls @ 100 mls/hr IVPB Q12 [facility] PRN Reason: Protocol Last Admin: 02/06/18 09:51 Dose: 100 mls/hr Sodium Chloride (Sodium Chloride 0.9%) 1,000 mls @ 80 mls/hr IV .[id number] [facility] Last Admin: 02/04/18 23:45 Dose: 80 mls/hr NOREPINEPHRINE BIT/0.9 % NACL (Levophed 4 Mg/ 250 Ml Ns Premixed) 4 mg in 250 mls @ 15 mls/hr IV .[id number] PRN; Protocol; 4 MCG/MIN PRN Reason: TITRATE PER MD ORDER Last Titration: 02/06/18 02:30 Dose: 0 mcg/min, 0 mls/hr Meropenem 500 mg/ Sodium (Chloride) 50 mls @ 100 mls/hr IVPB DAILY [facility] PRN Reason: Protocol Stop: 02/14/18 10:01 Last Admin: 02/06/18 09:46 Dose: 100 mls/hr Insulin Detemir (Levemir) 13 unit SC HS [facility] Insulin Human Lispro (Humalog Med) 0 units SC ACHS [facility] PRN Reason: Protocol Last Admin: 02/06/18 08:01 Dose: Not Given Pantoprazole Sodium (Protonix Ec Tab) 40 mg PO 0600 [facility] - Labs Labs: 02/06/18 07:40 02/06/18 07:40 PT 17.0 SECONDS (9.4-12.5) H 02/06/18 07:40 INR 1.48 (0.93-1.08) H 02/06/18 07:40 APTT 23.4 Seconds (25.1-36.5) L 02/05/18 06:45 Attending/Attestation - Attestation I have personally seen and examined this patient.: Yes I have fully participated in the care of the patient.: Yes I have reviewed all pertinent clinical information, including history, physical exam and plan: Yes Notes (Text): 02/06/18 12:30 This is a 72 yr old M with multiple co morbidities presenting with complaints of weakness and hypotention in setting of sepsis on pressor support with colostomy and brown stool. GI consulted for anemia and drop in Hb. responded to blood transfusion with brown stool in colostomy bag and brown stool on rectal exam. Troponin elevated. No indicaton for holding anti coagulation/ anti platelet as there is no active bleeding. Rest of care as per MICU. Will sign off
--- NOTE | 2018-02-06 12:19 | CP.CCUPN ---
<Bernardino Domingo - Last Filed: 02/06/18 14:10> CCU Subjective - Physician Review Subjective (Free Text): Bernardino Domingo DO PGY-1, ICU progress note for Dr. Bright Patient seen and examined at bedside. Translation was obtained by pt's , who is at bedside. Pt remains unable to answer questions, but does make eye contact during conversation. Overnight, rhythm strip showed afib with rvr at 140 bpm. Levophed was discontinued, and milrinone was reduced to 0.1 mcg/kg/ min. A 12-point ROS was unobtainable due to pt's mental status. CCU Objective - Vital Signs / Intake & Output Vital Signs (Last 4 hours): Vital Signs Pulse Resp BP Pulse Ox 02/06/18 11:11 99/50 L 02/06/18 08:31 134 H 112/58 L 02/06/18 08:00 112 H 17 107/68 85 L Intake and Output (Last 8hrs): Intake & Output 02/05/18 02/06/18 02/06/18 22:59 06:59 14:59 Intake Total 501 368 Output Total 300 400 Balance 201 -32 Weight 59.874 kg Intake: IV 181 168 Levophed 150 105 Milrinone 31 33 Oral 320 Other 200 Output: Urine 300 400 Urethral (Ken) 300 400 - Physical Exam Physical Exam Limitations: Positive for: Uncooperative Head: Positive for: Atraumatic, Normocephalic Pupils: Positive for: PERRL Extroacular Muscles: Positive for: EOMI Conjunctiva: Positive for: Normal Mouth: Positive for: Dry Neck: Positive for: Normal Range of Motion. Negative for: JVD Respiratory/Chest: Positive for: Rhonchi (in RLL), Other ((+) right upper chest port). Negative for: Good Air Exchange, Wheezes Cardiovascular: Positive for: Normal S1, S2, Tachycardic. Negative for: Murmurs Abdomen: Positive for: Tenderness (in RLQ), Normal Bowel Sounds, Other ((+) colostomy bag). Negative for: Distention, Peritoneal Signs, Rebound, Guarding Back: Positive for: Normal Inspection Upper Extremity: Positive for: Normal Inspection. Negative for: Cyanosis, Edema Lower Extremity: Positive for: Normal Inspection. Negative for: Edema Neurological: Positive for: GCS=15 Skin: Positive for: Warm, Dry, Normal Color, Other ((+) scattered senile purpora ). Negative for: Rashes Psychiatric: Positive for: Alert. Negative for: Oriented x 3 (Pt was able to state his name, but did not answer to place or time.) - Medications Active Medications: Active Medications Generic Name Dose Route Start Last Admin Trade Name Freq PRN Reason Stop Dose Admin Aspirin 81 mg 02/05/18 10:00 02/06/18 09:46 Ecotrin PO 81 mg DAILY ANTHONY Administration Atorvastatin Calcium 10 mg 02/05/18 10:00 02/06/18 09:46 Lipitor PO 10 mg DAILY ANTHONY Administration Digoxin 0.25 mg 02/06/18 09:30 02/06/18 09:40 Lanoxin IVP 02/06/18 13:31 0.25 mg Q4H ANTHONY Administration Finasteride 5 mg 02/05/18 10:00 02/06/18 09:46 Proscar PO 5 mg DAILY ANTHONY Administration Furosemide 20 mg 02/05/18 18:00 02/06/18 11:11 Lasix IVP Not Given BID ANTHONY Milrinone Lactate/Dextrose 100 mls @ 2.585 mls/hr 02/04/18 22:18 02/06/18 06: 51 Primacor 20mg/100ml D5w IV 0.1 mcg/kg/min .Q24H PRN 2.068 mls/hr TITRATE PER MD ORDER Administration Protocol 0.125 MCG/KG/MIN Doxycycline Hyclate 100 mg/ 100 mls @ 100 mls/hr 02/05/18 10:00 02/06/18 09: 51 Sodium Chloride IVPB 100 mls/hr Q12 ANTHONY Administration Protocol Sodium Chloride 1,000 mls @ 80 mls/hr 02/04/18 23:25 02/04/18 23:45 Sodium Chloride 0.9% IV 80 mls/hr .[id number] ANTHONY Administration NOREPINEPHRINE BIT/0.9 % NACL 4 mg in 250 mls @ 15 mls/hr 02/05/18 08:40 02:30 Levophed 4 Mg/ 250 Ml Ns Premixed IV 0 mcg/min .[id number] PRN 0 mls/hr TITRATE PER MD ORDER Titration Protocol 4 MCG/MIN Meropenem 500 mg/ Sodium 50 mls @ 100 mls/hr 02/06/18 07:46 02/06/18 09:46 Chloride IVPB 02/14/18 10:01 100 mls/hr DAILY [facility] Administration Protocol Insulin Detemir 13 unit 02/05/18 22:00 Levemir SC HS ANTHONY Insulin Human Lispro 0 units 02/06/18 07:30 02/06/18 08:01 Humalog Med SC Not Given ACHS [facility] Protocol Pantoprazole Sodium 40 mg 02/07/18 06:00 Protonix Ec Tab PO 0600 [facility] - Patient Studies Lab Studies: Lab Studies 02/06/18 02/06/18 02/06/18 Range/Units 07:40 07:40 07:40 WBC 16.8 H (4.5-11.0) 10^3/ul RBC 2.92 L (3.5-6.1) 10^6/uL Hgb 7.9 L (14.0-18.0) g/dL Hct 24.3 L (42.0-52.0) % MCV 83.2 (80.0-105.0) fl MCH 27.1 (25.0-35.0) pg MCHC 32.5 (31.0-37.0) g/dl RDW 18.7 H (11.5-14.5) % Plt Count 389 (120.0-450.0) 10^3/uL MPV 8.8 (7.0-11.0) fl Gran % 91.9 H (50.0-68.0) % Lymph % (Auto) 2.0 L (22.0-35.0) % [place] % (Auto) 5.9 (1.0-6.0) % Eos % (Auto) 0.2 L (1.5-5.0) % Baso % (Auto) 0.0 (0.0-3.0) % Gran # 15.39 H (1.4-6.5) Lymph # (Auto) 0.3 L (1.2-3.4) [place] # (Auto) 1.0 H (0.1-0.6) Eos # (Auto) 0.0 (0.0-0.7) Baso # (Auto) 0.00 (0.0-2.0) K/mm3 PT 17.0 H (9.4-12.5) SECONDS INR 1.48 H (0.93-1.08) Sodium 141 (132-148) mmol/L Potassium 4.5 (3.6-5.0) mmol/L Chloride 108 H (98-107) mmol/L Carbon Dioxide 16 L (21-33) mmol/L Anion Gap 21 H (10-20) BUN 120 H (7-21) mg/dL Creatinine 6.9 H (0.8-1.5) mg/dl Est GFR ( Amer) 10 Est GFR (Non-Af Amer) 8 POC Glucose (mg/dL) (65-110) mg/dL Random Glucose 124 H (70-110) mg/dL Calcium 9.5 (8.4-10.5) mg/dL Total Bilirubin 0.4 (0.2-1.3) mg/dL AST 28 (17-59) U/L ALT 27 (7-56) U/L Alkaline Phosphatase 288 H (38-126) U/L Total Protein 6.2 (5.8-8.3) g/dL Albumin 2.9 L (3.0-4.8) g/dL Globulin 3.3 gm/dL Albumin/Globulin Ratio 0.9 L (1.1-1.8) Procalcitonin (0.19-0.49) NG/ML 02/06/18 02/05/18 02/05/18 Range/Units 07:26 23:58 16:19 WBC (4.5-11.0) 10^3/ul RBC (3.5-6.1) 10^6/uL Hgb (14.0-18.0) g/dL Hct (42.0-52.0) % MCV (80.0-105.0) fl MCH (25.0-35.0) pg MCHC (31.0-37.0) g/dl RDW (11.5-14.5) % Plt Count (120.0-450.0) 10^3/uL MPV (7.0-11.0) fl Gran % (50.0-68.0) % Lymph % (Auto) (22.0-35.0) % [place] % (Auto) (1.0-6.0) % Eos % (Auto) (1.5-5.0) % Baso % (Auto) (0.0-3.0) % Gran # (1.4-6.5) Lymph # (Auto) (1.2-3.4) [place] # (Auto) (0.1-0.6) Eos # (Auto) (0.0-0.7) Baso # (Auto) (0.0-2.0) K/mm3 PT (9.4-12.5) SECONDS INR (0.93-1.08) Sodium (132-148) mmol/L Potassium (3.6-5.0) mmol/L Chloride (98-107) mmol/L Carbon Dioxide (21-33) mmol/L Anion Gap (10-20) BUN (7-21) mg/dL Creatinine (0.8-1.5) mg/dl Est GFR ( Amer) Est GFR (Non-Af Amer) POC Glucose (mg/dL) 140 H 174 H 289 H (65-110) mg/dL Random Glucose (70-110) mg/dL Calcium (8.4-10.5) mg/dL Total Bilirubin (0.2-1.3) mg/dL AST (17-59) U/L ALT (7-56) U/L Alkaline Phosphatase (38-126) U/L Total Protein (5.8-8.3) g/dL Albumin (3.0-4.8) g/dL Globulin gm/dL Albumin/Globulin Ratio (1.1-1.8) Procalcitonin (0.19-0.49) NG/ML 02/05/18 02/05/18 02/05/18 Range/Units 15:30 11:14 08:20 WBC 15.0 H D (4.5-11.0) 10^3/ul RBC 2.99 L (3.5-6.1) 10^6/uL Hgb 8.1 L (14.0-18.0) g/dL Hct 24.6 L (42.0-52.0) % MCV 82.3 (80.0-105.0) fl MCH 27.1 (25.0-35.0) pg MCHC 32.9 (31.0-37.0) g/dl RDW 18.0 H (11.5-14.5) % Plt Count 462 H (120.0-450.0) 10^3/uL MPV 8.9 (7.0-11.0) fl Gran % (50.0-68.0) % Lymph % (Auto) (22.0-35.0) % [place] % (Auto) (1.0-6.0) % Eos % (Auto) (1.5-5.0) % Baso % (Auto) (0.0-3.0) % Gran # (1.4-6.5) Lymph # (Auto) (1.2-3.4) [place] # (Auto) (0.1-0.6) Eos # (Auto) (0.0-0.7) Baso # (Auto) (0.0-2.0) K/mm3 PT (9.4-12.5) SECONDS INR (0.93-1.08) Sodium (132-148) mmol/L Potassium (3.6-5.0) mmol/L Chloride (98-107) mmol/L Carbon Dioxide (21-33) mmol/L Anion Gap (10-20) BUN (7-21) mg/dL Creatinine (0.8-1.5) mg/dl Est GFR ( Amer) Est GFR (Non-Af Amer) POC Glucose (mg/dL) 253 H (65-110) mg/dL Random Glucose (70-110) mg/dL Calcium (8.4-10.5) mg/dL Total Bilirubin (0.2-1.3) mg/dL AST (17-59) U/L ALT (7-56) U/L Alkaline Phosphatase (38-126) U/L Total Protein (5.8-8.3) g/dL Albumin (3.0-4.8) g/dL Globulin gm/dL Albumin/Globulin Ratio (1.1-1.8) Procalcitonin 23.64 H (0.19-0.49) NG/ML 02/05/18 Range/Units 06:38 WBC (4.5-11.0) 10^3/ul RBC (3.5-6.1) 10^6/uL Hgb (14.0-18.0) g/dL Hct (42.0-52.0) % MCV (80.0-105.0) fl MCH (25.0-35.0) pg MCHC (31.0-37.0) g/dl RDW (11.5-14.5) % Plt Count (120.0-450.0) 10^3/uL MPV (7.0-11.0) fl Gran % (50.0-68.0) % Lymph % (Auto) (22.0-35.0) % [place] % (Auto) (1.0-6.0) % Eos % (Auto) (1.5-5.0) % Baso % (Auto) (0.0-3.0) % Gran # (1.4-6.5) Lymph # (Auto) (1.2-3.4) [place] # (Auto) (0.1-0.6) Eos # (Auto) (0.0-0.7) Baso # (Auto) (0.0-2.0) K/mm3 PT (9.4-12.5) SECONDS INR (0.93-1.08) Sodium (132-148) mmol/L Potassium (3.6-5.0) mmol/L Chloride (98-107) mmol/L Carbon Dioxide (21-33) mmol/L Anion Gap (10-20) BUN (7-21) mg/dL Creatinine (0.8-1.5) mg/dl Est GFR ( Amer) Est GFR (Non-Af Amer) POC Glucose (mg/dL) 371 H (65-110) mg/dL Random Glucose (70-110) mg/dL Calcium (8.4-10.5) mg/dL Total Bilirubin (0.2-1.3) mg/dL AST (17-59) U/L ALT (7-56) U/L Alkaline Phosphatase (38-126) U/L Total Protein (5.8-8.3) g/dL Albumin (3.0-4.8) g/dL Globulin gm/dL Albumin/Globulin Ratio (1.1-1.8) Procalcitonin (0.19-0.49) NG/ML Laboratory Results - last 24 hr 02/05/18 02/05/18 02/05/18 06:38 08:20 11:14 WBC RBC Hgb Hct MCV MCH MCHC RDW Plt Count MPV Gran % Lymph % (Auto) [place] % (Auto) Eos % (Auto) Baso % (Auto) Gran # Lymph # (Auto) [place] # (Auto) Eos # (Auto) Baso # (Auto) PT INR Sodium Potassium Chloride Carbon Dioxide Anion Gap BUN Creatinine Est GFR ( Amer) Est GFR (Non-Af Amer) POC Glucose (mg/dL) 371 H 253 H Random Glucose Calcium Total Bilirubin AST ALT Alkaline Phosphatase Total Protein Albumin Globulin Albumin/Globulin Ratio Procalcitonin 23.64 H 02/05/18 02/05/18 02/05/18 15:30 16:19 23:58 WBC 15.0 H D RBC 2.99 L Hgb 8.1 L Hct 24.6 L MCV 82.3 MCH 27.1 MCHC 32.9 RDW 18.0 H Plt Count 462 H MPV 8.9 Gran % Lymph % (Auto) [place] % (Auto) Eos % (Auto) Baso % (Auto) Gran # Lymph # (Auto) [place] # (Auto) Eos # (Auto) Baso # (Auto) PT INR Sodium Potassium Chloride Carbon Dioxide Anion Gap BUN Creatinine Est GFR ( Amer) Est GFR (Non-Af Amer) POC Glucose (mg/dL) 289 H 174 H Random Glucose Calcium Total Bilirubin AST ALT Alkaline Phosphatase Total Protein Albumin Globulin Albumin/Globulin Ratio Procalcitonin 02/06/18 02/06/18 02/06/18 07:26 07:40 07:40 WBC 16.8 H RBC 2.92 L Hgb 7.9 L Hct 24.3 L MCV 83.2 MCH 27.1 MCHC 32.5 RDW 18.7 H Plt Count 389 MPV 8.8 Gran % 91.9 H Lymph % (Auto) 2.0 L [place] % (Auto) 5.9 Eos % (Auto) 0.2 L Baso % (Auto) 0.0 Gran # 15.39 H Lymph # (Auto) 0.3 L [place] # (Auto) 1.0 H Eos # (Auto) 0.0 Baso # (Auto) 0.00 PT INR Sodium 141 Potassium 4.5 Chloride 108 H Carbon Dioxide 16 L Anion Gap 21 H BUN 120 H Creatinine 6.9 H Est GFR ( Amer) 10 Est GFR (Non-Af Amer) 8 POC Glucose (mg/dL) 140 H Random Glucose 124 H Calcium 9.5 Total Bilirubin 0.4 AST 28 ALT 27 Alkaline Phosphatase 288 H Total Protein 6.2 Albumin 2.9 L Globulin 3.3 Albumin/Globulin Ratio 0.9 L Procalcitonin 02/06/18 07:40 WBC RBC Hgb Hct MCV MCH MCHC RDW Plt Count MPV Gran % Lymph % (Auto) [place] % (Auto) Eos % (Auto) Baso % (Auto) Gran # Lymph # (Auto) [place] # (Auto) Eos # (Auto) Baso # (Auto) PT 17.0 H INR 1.48 H Sodium Potassium Chloride Carbon Dioxide Anion Gap BUN Creatinine Est GFR ( Amer) Est GFR (Non-Af Amer) POC Glucose (mg/dL) Random Glucose Calcium Total Bilirubin AST ALT Alkaline Phosphatase Total Protein Albumin Globulin Albumin/Globulin Ratio Procalcitonin Fingerstick Blood Sugar Results: 140 Review of Systems - Review of Systems All systems: reviewed and no additional remarkable complaints except (as per HPI ) Critical Care Progress Note - Extremities/Vascular Does the Patient need a Central Venous Catheter?: Yes Does the Patient have a Ken Catheter?: Yes - Prophylaxis GI Prophylaxis GI: PPI - Nutrition Nutrition: Nutrition Category Date Time Status Dysphagia/Modified Consistency Diet [DIET] Diets 02/05/18 Dinner Ordered Assessment/Plan - Assessment and Plan (Free Text) Assessment: Pt is a 72 yo male with a PMH of CVA, lung CA (radiation), Atrial Fibrillation, CAD, CHF, endocarditis, AAA, AVR, angina pectoris, coronary stents x 3m port to right upper chest, diabetes type 2, metastatic liver disease and colostomy, accompanied by his , presents to the emergency department complaining of hyperglycemia and hypotension. History is obtained from the pt's . Pt has poor communication. He was brought to the ED on 02/04/18 for history of lethargy and not being at baseline mental status for the past month note bed his . She also reported low blood pressure, pt unable to ambulate secondary to chronic illness, and has been losing wt for the past 2 months secondary to poor oral intake. Code sepsis called secondary to elevated Lactate, hypotension, tachycardia, possible source being UTI vs sacral ulcer vs PNA vs other etiology. Pt was admited to the ICU due to sepsis (lactate 4.6) secondary to bilateral pneumonia on CXR. Pt is currently off of levophed, with a milirnone gtt going at 0.1 mcg/kg/min. Plan: Neuro: - continue to monitor for mental status changes - no signs of focal deficits Cardio: - levophed discontinued - continue milrinone - verapamil as per cardio due to afib with rvr - continue, ASA, lipitor, lasix as per cardio - started on digoxin as per cardio - maintain MAP >60 mmHg - troponin is elevated; likely due to demand ischemia secondary to hypotension - pt is cleared for anticoagulation from GI standpoint as per GI; who are aware of hemoccult positive test - will start heparin gtt bridge prior to starting coumadin for AFib anticoagulation Pulm: - CXR (02/05): no significant change in RLL and ULL pneumonia. - continue antibiotic as per ID - maintain spo2>90% - NC prn - HoB >30 degrees GI: - Abd/Pelv CT (02/05): Multifocal pneumonia involving posterior segment of the right upper lobe, lingula, and both lower lobes, worse in RLL with dense consolidation. Hepatic metastasis. - continue puree diet - continue protonix for GI ppx - No plans for endoscopic evaluation as per GI : - continue home Finasteride - pt has indwelling ken in place Renal: - creatinine is elevated but downtrending; isidro on ckd - continue ivf - maintain euvolemia - replete electrolytes as needed - f/u with nephro recs Endo: - continue ISS medium - continue accuchecks ACHS Heme: - H/H has been stable - s/p 1 unit PRBCs transfused - Monitor H/H and transfuse as needed as per GI ID: - leukocytosis has uptrended - antibiotics as per ID - urine culture prelim is positive for gram negative rods - BCx x 2 prelim shows no growth x 2 days - MRSA (nares) prelim shows no growth x 24 hours - f/u ID recs PPX: protonix for GI; heparin gtt for Afib Dispo: Continue to manage in the ICU Case reviewed and discussed with attending physician, Dr. Bright <Jonathan Bright - Last Filed: 02/06/18 14:35> CCU Objective - Vital Signs / Intake & Output Vital Signs (Last 4 hours): Vital Signs Pulse Resp BP Pulse Ox 02/06/18 12:31 124 H 24 118/71 96 02/06/18 12:30 128 H 17 95 02/06/18 12:20 120 H 47 H 98 02/06/18 12:10 122 H 24 97 02/06/18 12:00 124 H 23 94/48 L 91 L 02/06/18 11:50 118 H 23 94 L 02/06/18 11:40 119 H 25 H 94 L 02/06/18 11:30 117 H 35 H 100/52 L 93 L 02/06/18 11:20 118 H 16 95 02/06/18 11:11 99/50 L 02/06/18 11:10 124 H 17 96 02/06/18 11:00 122 H 16 99/50 L 97 02/06/18 10:50 127 H 22 95 02/06/18 10:41 124 H 22 92/52 L 98 02/06/18 10:40 120 H 22 98 02/06/18 10:30 127 H 32 H 97 02/06/18 10:29 125 H 18 89/56 L 98 Intake and Output (Last 8hrs): Intake & Output 02/05/18 02/06/18 02/06/18 22:59 06:59 14:59 Intake Total 501 368 Output Total 300 400 Balance 201 -32 Weight 132 lb Intake: IV 181 168 Levophed 150 105 Milrinone 31 33 Oral 320 Other 200 Output: Urine 300 400 Urethral (Ken) 300 400 - Medications Active Medications: Active Medications Generic Name Dose Route Start Last Admin Trade Name Freq PRN Reason Stop Dose Admin Aspirin 81 mg 02/05/18 10:00 02/06/18 09:46 Ecotrin PO 81 mg DAILY ANTHONY Administration Atorvastatin Calcium 10 mg 02/05/18 10:00 02/06/18 09:46 Lipitor PO 10 mg DAILY ANTHONY Administration Finasteride 5 mg 02/05/18 10:00 02/06/18 09:46 Proscar PO 5 mg DAILY ANTHONY Administration Furosemide 20 mg 02/05/18 18:00 02/06/18 11:11 Lasix IVP Not Given BID ANTHONY Milrinone Lactate/Dextrose 100 mls @ 2.585 mls/hr 02/04/18 22:18 02/06/18 06: 51 Primacor 20mg/100ml D5w IV 0.1 mcg/kg/min .Q24H PRN 2.068 mls/hr TITRATE PER MD ORDER Administration Protocol 0.125 MCG/KG/MIN Doxycycline Hyclate 100 mg/ 100 mls @ 100 mls/hr 02/05/18 10:00 02/06/18 09: 51 Sodium Chloride IVPB 100 mls/hr Q12 ANTHONY Administration Protocol Sodium Chloride 1,000 mls @ 80 mls/hr 02/04/18 23:25 02/04/18 23:45 Sodium Chloride 0.9% IV 80 mls/hr .[id number] ANTHONY Administration NOREPINEPHRINE BIT/0.9 % NACL 4 mg in 250 mls @ 15 mls/hr 02/05/18 08:40 02:30 Levophed 4 Mg/ 250 Ml Ns Premixed IV 0 mcg/min .[id number] PRN 0 mls/hr TITRATE PER MD ORDER Titration Protocol 4 MCG/MIN Meropenem 500 mg/ Sodium 50 mls @ 100 mls/hr 02/06/18 07:46 02/06/18 09:46 Chloride IVPB 02/14/18 10:01 100 mls/hr DAILY ANTHONY Administration Protocol Heparin Sodium/Sodium Chloride 25,000 units in 250 mls @ 10.777 mls/hr 13:06 02/06/18 13:20 Heparin 29404 Units/250ml 1/2 Normal Saline IV 18 units/kg/hr .[id number] PRN 10.777 mls/hr ADJUST RATE PER PROTOCOL Administration Protocol 18 UNITS/KG/HR Insulin Detemir 13 unit 02/05/18 22:00 Levemir SC HS [facility] Insulin Human Lispro 0 units 02/06/18 07:30 02/06/18 11:55 Humalog Med SC 3 unit ACHS [facility] Administration Protocol Oxycodone/Acetaminophen 1 tab 02/06/18 13:06 02/06/18 13:24 Percocet 5/325 Mg Tab PO 02/09/18 13:07 1 tab Q6H PRN Administration Pain, moderate (4-7) Pantoprazole Sodium 40 mg 02/07/18 06:00 Protonix Ec Tab PO 0600 [facility] - Patient Studies Lab Studies: Microbiology Studies 02/05/18 01:30 MRSA Culture (Admit) - Final Nose MRSA NOT DETECTED Lab Studies 02/06/18 02/06/18 02/06/18 Range/Units 12:57 07:40 07:40 WBC (4.5-11.0) 10^3/ul RBC (3.5-6.1) 10^6/uL Hgb (14.0-18.0) g/dL Hct (42.0-52.0) % MCV (80.0-105.0) fl MCH (25.0-35.0) pg MCHC (31.0-37.0) g/dl RDW (11.5-14.5) % Plt Count (120.0-450.0) 10^3/uL MPV (7.0-11.0) fl Gran % (50.0-68.0) % Lymph % (Auto) (22.0-35.0) % [place] % (Auto) (1.0-6.0) % Eos % (Auto) (1.5-5.0) % Baso % (Auto) (0.0-3.0) % Gran # (1.4-6.5) Lymph # (Auto) (1.2-3.4) [place] # (Auto) (0.1-0.6) Eos # (Auto) (0.0-0.7) Baso # (Auto) (0.0-2.0) K/mm3 PT 17.0 H (9.4-12.5) SECONDS INR 1.48 H (0.93-1.08) Sodium 141 (132-148) mmol/L Potassium 4.5 (3.6-5.0) mmol/L Chloride 108 H (98-107) mmol/L Carbon Dioxide 16 L (21-33) mmol/L Anion Gap 21 H (10-20) BUN 120 H (7-21) mg/dL Creatinine 6.9 H (0.8-1.5) mg/dl Est GFR ( Amer) 10 Est GFR (Non-Af Amer) 8 POC Glucose (mg/dL) (65-110) mg/dL Random Glucose 124 H (70-110) mg/dL Calcium 9.5 (8.4-10.5) mg/dL Total Bilirubin 0.4 (0.2-1.3) mg/dL AST 28 (17-59) U/L ALT 27 (7-56) U/L Alkaline Phosphatase 288 H (38-126) U/L Total Protein 6.2 (5.8-8.3) g/dL Albumin 2.9 L (3.0-4.8) g/dL Globulin 3.3 gm/dL Albumin/Globulin Ratio 0.9 L (1.1-1.8) Procalcitonin (0.19-0.49) NG/ML Stool Occult Blood Positive H (NEGATIVE) 02/06/18 02/06/18 02/05/18 Range/Units 07:40 07:26 23:58 WBC 16.8 H (4.5-11.0) 10^3/ul RBC 2.92 L (3.5-6.1) 10^6/uL Hgb 7.9 L (14.0-18.0) g/dL Hct 24.3 L (42.0-52.0) % MCV 83.2 (80.0-105.0) fl MCH 27.1 (25.0-35.0) pg MCHC 32.5 (31.0-37.0) g/dl RDW 18.7 H (11.5-14.5) % Plt Count 389 (120.0-450.0) 10^3/uL MPV 8.8 (7.0-11.0) fl Gran % 91.9 H (50.0-68.0) % Lymph % (Auto) 2.0 L (22.0-35.0) % [place] % (Auto) 5.9 (1.0-6.0) % Eos % (Auto) 0.2 L (1.5-5.0) % Baso % (Auto) 0.0 (0.0-3.0) % Gran # 15.39 H (1.4-6.5) Lymph # (Auto) 0.3 L (1.2-3.4) [place] # (Auto) 1.0 H (0.1-0.6) Eos # (Auto) 0.0 (0.0-0.7) Baso # (Auto) 0.00 (0.0-2.0) K/mm3 PT (9.4-12.5) SECONDS INR (0.93-1.08) Sodium (132-148) mmol/L Potassium (3.6-5.0) mmol/L Chloride (98-107) mmol/L Carbon Dioxide (21-33) mmol/L Anion Gap (10-20) BUN (7-21) mg/dL Creatinine (0.8-1.5) mg/dl Est GFR ( Amer) Est GFR (Non-Af Amer) POC Glucose (mg/dL) 140 H 174 H (65-110) mg/dL Random Glucose (70-110) mg/dL Calcium (8.4-10.5) mg/dL Total Bilirubin (0.2-1.3) mg/dL AST (17-59) U/L ALT (7-56) U/L Alkaline Phosphatase (38-126) U/L Total Protein (5.8-8.3) g/dL Albumin (3.0-4.8) g/dL Globulin gm/dL Albumin/Globulin Ratio (1.1-1.8) Procalcitonin (0.19-0.49) NG/ML Stool Occult Blood (NEGATIVE) 02/05/18 02/05/18 02/05/18 Range/Units 16:19 15:30 11:14 WBC 15.0 H D (4.5-11.0) 10^3/ul RBC 2.99 L (3.5-6.1) 10^6/uL Hgb 8.1 L (14.0-18.0) g/dL Hct 24.6 L (42.0-52.0) % MCV 82.3 (80.0-105.0) fl MCH 27.1 (25.0-35.0) pg MCHC 32.9 (31.0-37.0) g/dl RDW 18.0 H (11.5-14.5) % Plt Count 462 H (120.0-450.0) 10^3/uL MPV 8.9 (7.0-11.0) fl Gran % (50.0-68.0) % Lymph % (Auto) (22.0-35.0) % [place] % (Auto) (1.0-6.0) % Eos % (Auto) (1.5-5.0) % Baso % (Auto) (0.0-3.0) % Gran # (1.4-6.5) Lymph # (Auto) (1.2-3.4) [place] # (Auto) (0.1-0.6) Eos # (Auto) (0.0-0.7) Baso # (Auto) (0.0-2.0) K/mm3 PT (9.4-12.5) SECONDS INR (0.93-1.08) Sodium (132-148) mmol/L Potassium (3.6-5.0) mmol/L Chloride (98-107) mmol/L Carbon Dioxide (21-33) mmol/L Anion Gap (10-20) BUN (7-21) mg/dL Creatinine (0.8-1.5) mg/dl Est GFR ( Amer) Est GFR (Non-Af Amer) POC Glucose (mg/dL) 289 H 253 H (65-110) mg/dL Random Glucose (70-110) mg/dL Calcium (8.4-10.5) mg/dL Total Bilirubin (0.2-1.3) mg/dL AST (17-59) U/L ALT (7-56) U/L Alkaline Phosphatase (38-126) U/L Total Protein (5.8-8.3) g/dL Albumin (3.0-4.8) g/dL Globulin gm/dL Albumin/Globulin Ratio (1.1-1.8) Procalcitonin (0.19-0.49) NG/ML Stool Occult Blood (NEGATIVE) 02/05/18 02/05/18 Range/Units 08:20 06:38 WBC (4.5-11.0) 10^3/ul RBC (3.5-6.1) 10^6/uL Hgb (14.0-18.0) g/dL Hct (42.0-52.0) % MCV (80.0-105.0) fl MCH (25.0-35.0) pg MCHC (31.0-37.0) g/dl RDW (11.5-14.5) % Plt Count (120.0-450.0) 10^3/uL MPV (7.0-11.0) fl Gran % (50.0-68.0) % Lymph % (Auto) (22.0-35.0) % [place] % (Auto) (1.0-6.0) % Eos % (Auto) (1.5-5.0) % Baso % (Auto) (0.0-3.0) % Gran # (1.4-6.5) Lymph # (Auto) (1.2-3.4) [place] # (Auto) (0.1-0.6) Eos # (Auto) (0.0-0.7) Baso # (Auto) (0.0-2.0) K/mm3 PT (9.4-12.5) SECONDS INR (0.93-1.08) Sodium (132-148) mmol/L Potassium (3.6-5.0) mmol/L Chloride (98-107) mmol/L Carbon Dioxide (21-33) mmol/L Anion Gap (10-20) BUN (7-21) mg/dL Creatinine (0.8-1.5) mg/dl Est GFR ( Amer) Est GFR (Non-Af Amer) POC Glucose (mg/dL) 371 H (65-110) mg/dL Random Glucose (70-110) mg/dL Calcium (8.4-10.5) mg/dL Total Bilirubin (0.2-1.3) mg/dL AST (17-59) U/L ALT (7-56) U/L Alkaline Phosphatase (38-126) U/L Total Protein (5.8-8.3) g/dL Albumin (3.0-4.8) g/dL Globulin gm/dL Albumin/Globulin Ratio (1.1-1.8) Procalcitonin 23.64 H (0.19-0.49) NG/ML Stool Occult Blood (NEGATIVE) Laboratory Results - last 24 hr 02/05/18 02/05/18 02/05/18 06:38 08:20 11:14 WBC RBC Hgb Hct MCV MCH MCHC RDW Plt Count MPV Gran % Lymph % (Auto) [place] % (Auto) Eos % (Auto) Baso % (Auto) Gran # Lymph # (Auto) [place] # (Auto) Eos # (Auto) Baso # (Auto) PT INR Sodium Potassium Chloride Carbon Dioxide Anion Gap BUN Creatinine Est GFR ( Amer) Est GFR (Non-Af Amer) POC Glucose (mg/dL) 371 H 253 H Random Glucose Calcium Total Bilirubin AST ALT Alkaline Phosphatase Total Protein Albumin Globulin Albumin/Globulin Ratio Procalcitonin 23.64 H Stool Occult Blood 02/05/18 02/05/18 02/05/18 15:30 16:19 23:58 WBC 15.0 H D RBC 2.99 L Hgb 8.1 L Hct 24.6 L MCV 82.3 MCH 27.1 MCHC 32.9 RDW 18.0 H Plt Count 462 H MPV 8.9 Gran % Lymph % (Auto) [place] % (Auto) Eos % (Auto) Baso % (Auto) Gran # Lymph # (Auto) [place] # (Auto) Eos # (Auto) Baso # (Auto) PT INR Sodium Potassium Chloride Carbon Dioxide Anion Gap BUN Creatinine Est GFR ( Amer) Est GFR (Non-Af Amer) POC Glucose (mg/dL) 289 H 174 H Random Glucose Calcium Total Bilirubin AST ALT Alkaline Phosphatase Total Protein Albumin Globulin Albumin/Globulin Ratio Procalcitonin Stool Occult Blood 02/06/18 02/06/18 02/06/18 07:26 07:40 07:40 WBC 16.8 H RBC 2.92 L Hgb 7.9 L Hct 24.3 L MCV 83.2 MCH 27.1 MCHC 32.5 RDW 18.7 H Plt Count 389 MPV 8.8 Gran % 91.9 H Lymph % (Auto) 2.0 L [place] % (Auto) 5.9 Eos % (Auto) 0.2 L Baso % (Auto) 0.0 Gran # 15.39 H Lymph # (Auto) 0.3 L [place] # (Auto) 1.0 H Eos # (Auto) 0.0 Baso # (Auto) 0.00 PT INR Sodium 141 Potassium 4.5 Chloride 108 H Carbon Dioxide 16 L Anion Gap 21 H BUN 120 H Creatinine 6.9 H Est GFR ( Amer) 10 Est GFR (Non-Af Amer) 8 POC Glucose (mg/dL) 140 H Random Glucose 124 H Calcium 9.5 Total Bilirubin 0.4 AST 28 ALT 27 Alkaline Phosphatase 288 H Total Protein 6.2 Albumin 2.9 L Globulin 3.3 Albumin/Globulin Ratio 0.9 L Procalcitonin Stool Occult Blood 02/06/18 02/06/18 07:40 12:57 WBC RBC Hgb Hct MCV MCH MCHC RDW Plt Count MPV Gran % Lymph % (Auto) [place] % (Auto) Eos % (Auto) Baso % (Auto) Gran # Lymph # (Auto) [place] # (Auto) Eos # (Auto) Baso # (Auto) PT 17.0 H INR 1.48 H Sodium Potassium Chloride Carbon Dioxide Anion Gap BUN Creatinine Est GFR ( Amer) Est GFR (Non-Af Amer) POC Glucose (mg/dL) Random Glucose Calcium Total Bilirubin AST ALT Alkaline Phosphatase Total Protein Albumin Globulin Albumin/Globulin Ratio Procalcitonin Stool Occult Blood Positive H Critical Care Progress Note - Nutrition Nutrition: Nutrition Category Date Time Status Dysphagia/Modified Consistency Diet [DIET] Diets 02/05/18 Dinner Ordered Attending/Attestation - Attestation I have personally seen and examined this patient.: Yes I have fully participated in the care of the patient.: Yes I have reviewed all pertinent clinical information: Yes Notes (Text): 02/06/18 14:28 The patient was seen and examined at the bedside. Patient care was discussed with resident Medical records, lab studies were reviewed and management issues were discussed and formulated. Last 24H events reviewed. Agree with above treatment plans as outlined in ' note with addition of the following: Septic shock \ Acute on chronic systolic CHF \ PNA \ UTI \ ESRD on HD \ Anemia \ CAD \ ho Metastatic Lung CA \ DM 2\ Encephalopathy \ Afib with RVR -hemodynamic monitoring to maintain MAP>65; off levophed in AM -continue milrinone; continue asa and statin; cardiology team f\u -continue digoxin for rte control and Ca+ yimi if B\P tolerates -o2 supplementation to maintain Spo2>90 Pao2>60; currently comfortable on NC -continue broad spectrum Abx as per ID team and f\u cultures -f\u Bun\Cr and U\o; HD as per renal team -PO diet and aspiration precautions -GI team following; pt has a h\o recent GI bleed; Gi team Ok to restart anticogulation -start heparin and monitor PTT and H\H and for bleeding -neurology team eval for encephalopathy -ISS and BGM monitoring -Heme\onc f\u once improves -DVT \ PUD prophylaxis [facility] time 34
[2018-02-06] MEDS ORDERED: Heparin25000 units/250ml 1/2NS 25,000 UNITS/250 ML BAG IV PRN (13:06)
[2018-02-06] MEDS: Oxycodone/Acetaminophen 5/325 mg Tab PO PRN ×2 (13:24→21:31)
--- NOTE | 2018-02-06 13:31 | CP.PCM.PN ---
<Beka James - Last Filed: 02/06/18 15:52> Subjective - Date & Time of Evaluation Date of Evaluation: 02/06/18 Time of Evaluation: 09:00 - Subjective Subjective: Subjective: Patient seen and examined at bedside. Resting comfortably in bed. No acute overnight events. No further subjective data can be ascertained at this time as patient cannot answer questions appropriately. 12-point review of systems cannot be ascertained at this time due to altered mental status Physical Examination: - Constitutional Appears: No Acute Distress, Cachectic, Chronically Ill - Head Exam Head Exam: ATRAUMATIC, NORMAL INSPECTION, NORMOCEPHALIC - Eye Exam Eye Exam: Normal appearance Pupil Exam: NORMAL ACCOMODATION - ENT Exam ENT Exam: Mucous Membranes Moist - Neck Exam Neck Exam: Normal Inspection - Respiratory Exam Respiratory Exam: Clear to Ausculation Bilateral. absent: Rales, Rhonchi, Wheezes - Cardiovascular Exam Cardiovascular Exam: Tachycardia, +S1, +S2. absent: Clicks, Gallop, Irregular Rhythm, Murmur - GI/Abdominal Exam GI & Abdominal Exam: Soft. absent: Guarding, Tenderness, Mass, Rebound Additional comments: brown stool per colostomy bag, stoma pink with no signs of erythema or discharge - Extremities Exam Extremities Exam: Normal Inspection - Neurological Exam Neurological Exam: Alert, Awake, responds to verbal stimuli but does not answer questions appropriately - Skin Skin Exam: Right subclavian site clean, dry Assessment and Plan: Patient is a 72 year old male with a PMHx of CVA, lung CA (radiation), Atrial Fibrillation, CAD, CHF, endocarditis, AAA, AVR, angina pectoris, coronary stents x 3m port to right upper chest, diabetes type 2, metastatic liver disease and colostomy who was admitted for evaluation and treatment of increasing lethargy. Patient was found to be septic and admitted to the ICU for blood pressure support and close monitoring. Shock State - cardiogenic vs septic (HCAP) - continue milrinone - started on digoxin as per cardio - maintain MAP > 65 mmHg - discontinued pressor support via levophed as per ICU team Pneumonia - CXR (02/05): no significant change in RLL and ULL pneumonia. - continue doxycycline and meropenem - maintain spo2>90% - oxygen supplementation via NC prn - HOB >30 degrees Atrial Fibrillation with RVR - continue verapamil - started on digoxin - started on heparin drip s/p heparin bolus - maintain MAP > 65 - cardiology consulted- appreciate recommendations Normocytic Anemia - hemoglobin reviewed, trended, and appreciated- appropriate response s/p 1 unit pRBC - will monitor closely via CBC Hx of CKD - BUN creatinine levels reviewed, trended, and appreciated- improving 6.9 and 120 - nephrology consulted- appreciate recommendations Hx of CAD/CHF - c/w verapamil - continue, ASA, lipitor, lasix with close monitoring of MAP and kidney function - strict Is/Os- patient making adequate urine Hx of Lung CA/Metastatic Liver Disease - no acute intervention at this time - palliative care is on board- appreciate recommendations Hx of DM - BG levels reviewed, trended, and appreciated- maintain 140-180 - continue with FS ACHS - continue with ISS Prophylaxis - DVT ppx- currently on heparin drip - GI ppx- PPI Patient seen, case discussed with, and plan approved by attending physician, Dr. Stephens. Objective - Vital Signs/Intake and Output Vital Signs (last 24 hours): Temp Pulse Resp BP Pulse Ox 98.3 F 124 H 24 118/71 96 02/06/18 04:00 02/06/18 12:31 02/06/18 12:31 02/06/18 12:31 02/06/18 12:31 Intake and Output: 02/06/18 02/06/18 06:59 18:59 Intake Total 688 Output Total 400 Balance 288 - Medications Medications: Current Medications Aspirin (Ecotrin) 81 mg PO DAILY [facility] Last Admin: 02/06/18 09:46 Dose: 81 mg Atorvastatin Calcium (Lipitor) 10 mg PO DAILY [facility] Last Admin: 02/06/18 09:46 Dose: 10 mg Digoxin (Lanoxin) 0.25 mg IVP Q4H [facility] Stop: 02/06/18 13:31 Last Admin: 02/06/18 09:40 Dose: 0.25 mg Finasteride (Proscar) 5 mg PO DAILY [facility] Last Admin: 02/06/18 09:46 Dose: 5 mg Furosemide (Lasix) 20 mg IVP BID [facility] Last Admin: 02/06/18 11:11 Dose: Not Given Milrinone Lactate/Dextrose (Primacor 20mg/100ml D5w) 100 mls @ 2.585 mls/hr IV .Q24H PRN; Protocol; 0.125 MCG/KG/MIN PRN Reason: TITRATE PER MD ORDER Last Admin: 02/06/18 06:51 Dose: 0.1 mcg/kg/min, 2.068 mls/hr Doxycycline Hyclate 100 mg/ (Sodium Chloride) 100 mls @ 100 mls/hr IVPB Q12 [facility] PRN Reason: Protocol Last Admin: 02/06/18 09:51 Dose: 100 mls/hr Sodium Chloride (Sodium Chloride 0.9%) 1,000 mls @ 80 mls/hr IV .[id number] [facility] Last Admin: 02/04/18 23:45 Dose: 80 mls/hr NOREPINEPHRINE BIT/0.9 % NACL (Levophed 4 Mg/ 250 Ml Ns Premixed) 4 mg in 250 mls @ 15 mls/hr IV .[id number] PRN; Protocol; 4 MCG/MIN PRN Reason: TITRATE PER MD ORDER Last Titration: 02/06/18 02:30 Dose: 0 mcg/min, 0 mls/hr Meropenem 500 mg/ Sodium (Chloride) 50 mls @ 100 mls/hr IVPB DAILY [facility] PRN Reason: Protocol Stop: 02/14/18 10:01 Last Admin: 02/06/18 09:46 Dose: 100 mls/hr Insulin Detemir (Levemir) 13 unit SC HS [facility] Insulin Human Lispro (Humalog Med) 0 units SC ACHS [facility] PRN Reason: Protocol Last Admin: 02/06/18 08:01 Dose: Not Given Pantoprazole Sodium (Protonix Ec Tab) 40 mg PO 0600 [facility] - Labs Labs: 02/06/18 07:40 02/06/18 07:40 PT 17.0 SECONDS (9.4-12.5) H 02/06/18 07:40 INR 1.48 (0.93-1.08) H 02/06/18 07:40 APTT 23.4 Seconds (25.1-36.5) L 02/05/18 06:45 <Philippe Stephens - Last Filed: 02/06/18 16:34> Objective - Vital Signs/Intake and Output Vital Signs (last 24 hours): Temp Pulse Resp BP Pulse Ox 98.4 F 116 H 16 78/54 L 97 02/06/18 12:00 02/06/18 15:00 02/06/18 15:00 02/06/18 15:00 02/06/18 15:00 Intake and Output: 02/06/18 02/06/18 06:59 18:59 Intake Total 688 Output Total 400 Balance 288 - Medications Medications: Current Medications Aspirin (Ecotrin) 81 mg PO DAILY [facility] Last Admin: 02/06/18 09:46 Dose: 81 mg Atorvastatin Calcium (Lipitor) 10 mg PO DAILY [facility] Last Admin: 02/06/18 09:46 Dose: 10 mg Finasteride (Proscar) 5 mg PO DAILY [facility] Last Admin: 02/06/18 09:46 Dose: 5 mg Furosemide (Lasix) 20 mg IVP BID [facility] Last Admin: 02/06/18 11:11 Dose: Not Given Milrinone Lactate/Dextrose (Primacor 20mg/100ml D5w) 100 mls @ 2.585 mls/hr IV .Q24H PRN; Protocol; 0.125 MCG/KG/MIN PRN Reason: TITRATE PER MD ORDER Last Admin: 02/06/18 06:51 Dose: 0.1 mcg/kg/min, 2.068 mls/hr Doxycycline Hyclate 100 mg/ (Sodium Chloride) 100 mls @ 100 mls/hr IVPB Q12 [facility] PRN Reason: Protocol Last Admin: 02/06/18 09:51 Dose: 100 mls/hr Sodium Chloride (Sodium Chloride 0.9%) 1,000 mls @ 80 mls/hr IV .[id number] [facility] Last Admin: 02/04/18 23:45 Dose: 80 mls/hr NOREPINEPHRINE BIT/0.9 % NACL (Levophed 4 Mg/ 250 Ml Ns Premixed) 4 mg in 250 mls @ 15 mls/hr IV .[id number] PRN; Protocol; 4 MCG/MIN PRN Reason: TITRATE PER MD ORDER Last Titration: 02/06/18 02:30 Dose: 0 mcg/min, 0 mls/hr Meropenem 500 mg/ Sodium (Chloride) 50 mls @ 100 mls/hr IVPB DAILY [facility] PRN Reason: Protocol Stop: 02/14/18 10:01 Last Admin: 02/06/18 09:46 Dose: 100 mls/hr Heparin Sodium/Sodium Chloride (Heparin 56679 Units/250ml 1/2 Normal Saline) 25 ,000 units in 250 mls @ 10.777 mls/hr IV .[id number] PRN; Protocol; 18 UNITS/KG/HR PRN Reason: ADJUST RATE PER PROTOCOL Last Admin: 02/06/18 13:20 Dose: 18 units/kg/hr, 10.777 mls/hr Insulin Detemir (Levemir) 13 unit SC HS [facility] Insulin Human Lispro (Humalog Med) 0 units SC ACHS [facility] PRN Reason: Protocol Last Admin: 02/06/18 11:55 Dose: 3 unit Oxycodone/Acetaminophen (Percocet 5/325 Mg Tab) 1 tab PO Q6H PRN PRN Reason: Pain, moderate (4-7) Stop: 02/09/18 13:07 Last Admin: 02/06/18 13:24 Dose: 1 tab Pantoprazole Sodium (Protonix Ec Tab) 40 mg PO 0600 [facility] - Labs Labs: 02/06/18 07:40 02/06/18 07:40 PT 17.0 SECONDS (9.4-12.5) H 02/06/18 07:40 INR 1.48 (0.93-1.08) H 02/06/18 07:40 APTT 23.4 Seconds (25.1-36.5) L 02/05/18 06:45 Attending/Attestation - Attestation I have personally seen and examined this patient.: Yes I have fully participated in the care of the patient.: Yes I have reviewed all pertinent clinical information, including history, physical exam and plan: Yes Notes (Text): Attending note; Patient seen and examined with resident in ICU. Patient is alert and awake. Not in any acute distress. Patient's by the bedside. Patient is a 72 year old male with a PMHx of CVA, lung CA (radiation) with liver mets, Atrial Fibrillation, severe cardiomyopathy , home milrinone drip , bed bound, sacral decubitus , CAD, CHF, endocarditis, AAA, AVR, coronary stents , port to right upper chest, diabetes type 2, metastatic liver disease and colostomy who was admitted for evaluation and treatment of increasing lethargy. Patient was found to be septic shock. Currently off Levophed. Patient was on chronic milrinone drip secondary to severe cardiomyopathy. Follow-up with chin strap maker closely. Atrial fibrillation; IV digoxin ordered by cardiology. Blood pressure is stable. Elevated troponin; possibly secondary to demand ischemia. Follow-up with chin strap maker. Continue aspirin. Anemia; status post 1 unit PRBC transfusion. Hemoglobin is 7.9. No active bleeding. History of lung CA with liver metastases. Patient is not a candidate for treatment due to multiple issues including advanced cardiomyopathy. Follow-up with oncology as outpatient. Sepsis; due to bilateral pneumonia /possible UTI .currently on meropenem. Got 1 dose of vancomycin. ID evaluation appreciated. Monitor closely. Diabetes; continue Levemir and Regular Insulin sliding scale. Acute on chronic kidney disease; currently with slowly improving creatinine. Urine output improved today. Follow-up with nephrology. Prognosis is poor. The diagnosis, treatment options and prognosis discussed with patient's in detail by the bedside. Continue to monitor the patient closely in ICU. Patient will be seen by PMD Dr. Palacios tomorrow. 02/06/18 16:33
--- NOTE | 2018-02-06 13:38 | CP.PCM.PN ---
Subjective - Date & Time of Evaluation Date of Evaluation: 02/06/18 Time of Evaluation: 10:00 - Subjective Subjective: Patient feels weak and tired, no appetite, no fevers overnight. Objective - Vital Signs/Intake and Output Vital Signs (last 24 hours): Temp Pulse Resp BP Pulse Ox 98.3 F 134 H 17 112/58 L 85 L 02/06/18 04:00 02/06/18 08:31 02/06/18 08:00 02/06/18 08:31 02/06/18 08:00 Intake and Output: 02/06/18 02/06/18 06:59 18:59 Intake Total 688 Output Total 400 Balance 288 - Medications Medications: Current Medications Aspirin (Ecotrin) 81 mg PO DAILY [facility] Last Admin: 02/06/18 09:46 Dose: 81 mg Atorvastatin Calcium (Lipitor) 10 mg PO DAILY [facility] Last Admin: 02/06/18 09:46 Dose: 10 mg Digoxin (Lanoxin) 0.25 mg IVP Q4H [facility] Stop: 02/06/18 13:31 Last Admin: 02/06/18 09:40 Dose: 0.25 mg Finasteride (Proscar) 5 mg PO DAILY [facility] Last Admin: 02/06/18 09:46 Dose: 5 mg Furosemide (Lasix) 20 mg IVP BID [facility] Last Admin: 02/05/18 17:00 Dose: 20 mg Milrinone Lactate/Dextrose (Primacor 20mg/100ml D5w) 100 mls @ 2.585 mls/hr IV .Q24H PRN; Protocol; 0.125 MCG/KG/MIN PRN Reason: TITRATE PER MD ORDER Last Admin: 02/06/18 06:51 Dose: 0.1 mcg/kg/min, 2.068 mls/hr Doxycycline Hyclate 100 mg/ (Sodium Chloride) 100 mls @ 100 mls/hr IVPB Q12 [facility] PRN Reason: Protocol Last Admin: 02/06/18 09:51 Dose: 100 mls/hr Sodium Chloride (Sodium Chloride 0.9%) 1,000 mls @ 80 mls/hr IV .[id number] [facility] Last Admin: 02/04/18 23:45 Dose: 80 mls/hr NOREPINEPHRINE BIT/0.9 % NACL (Levophed 4 Mg/ 250 Ml Ns Premixed) 4 mg in 250 mls @ 15 mls/hr IV .[id number] PRN; Protocol; 4 MCG/MIN PRN Reason: TITRATE PER MD ORDER Last Titration: 02/06/18 02:30 Dose: 0 mcg/min, 0 mls/hr Meropenem 500 mg/ Sodium (Chloride) 50 mls @ 100 mls/hr IVPB DAILY [facility] PRN Reason: Protocol Stop: 02/14/18 10:01 Last Admin: 02/06/18 09:46 Dose: 100 mls/hr Insulin Detemir (Levemir) 13 unit SC HS [facility] Insulin Human Lispro (Humalog Med) 0 units SC ACHS [facility] PRN Reason: Protocol Last Admin: 02/06/18 08:01 Dose: Not Given Pantoprazole Sodium (Protonix Ec Tab) 40 mg PO 0600 [facility] - Labs Labs: 02/06/18 07:40 02/06/18 07:40 PT 17.0 SECONDS (9.4-12.5) H 02/06/18 07:40 INR 1.48 (0.93-1.08) H 02/06/18 07:40 APTT 23.4 Seconds (25.1-36.5) L 02/05/18 06:45 - Constitutional Appears: Chronically Ill - Head Exam Head Exam: NORMAL INSPECTION - Neck Exam Neck Exam: absent: Meningismus - Respiratory Exam Respiratory Exam: Decreased Breath Sounds Additional comments: right sided port in place - Cardiovascular Exam Cardiovascular Exam: +S1, +S2 - GI/Abdominal Exam GI & Abdominal Exam: Soft. absent: Tenderness Additional comments: right sided colostomy in place with formed stool in the bag Assessment and Plan - Assessment and Plan (Free Text) Assessment: Assessment severe sepsis with acute on chronic renal failure due to multifocal healthcare- associated pneumonia with possible gram positive cocci and/or gram negative bacilli as well as gram negative bacilli complicated UTI (with chronic Grimaldo catheter use) history of complicated UTI with Grimaldo catheter from multidrug-resistant ESBL- producing Klebsiella, on top of HCAP chronic CHF S/P UTI with ESBL Klebsiella and Proteus history of sepsis due to left upper lobe healthcare-associated pneumonia, probably atypical history of severe sepsis due to ESBL E. coli bacteremia, unclear source history of sepsis due to right sided healthcare-associated pneumonia history of UTI with carbapenem-resistant Klebsiella history of ESBL-producing Klebsiella bacteremia, secondary to the port S/P removal S/P treatment for healthcare-associated pneumonia history of C diff associated diarrhea history of UTI with yeast history healthcare-associated pneumonia Severe cardiomyopathy with EF 10-15 % paroxysmal atrial fibrillation Coronary artery disease S/P stenting history of aortic aneurysm history of SVT S/P AICD placement S/P procedure on his prostate in 2012 S/P partial colectomy and colostomy Plan continue Merrem and Doxycycline pending final urine cx results (day 2 today); should target at least 7 days of antibiotics overall prognosis is poor
--- NOTE | 2018-02-06 16:49 | PN ---
DATE: 02/06/2018 REASON FOR CONSULTATION AND FOLLOWUP: Coronary artery disease, cardiomyopathy, admitted with hypoglycemia, hypotension, possible pneumonia. SUBJECTIVE: The patient denies any chest pain, complained of mild abdominal pain at left upper quadrant. Denies any chest pain, shortness of breath, or any palpitation. OBJECTIVE: GENERAL: Not in any apparent distress, lying flat, appears much better. is at the bedside. VITAL SIGNS: Temperature afebrile, heart rate 140, blood pressure 114/82. HEENT: PERRLA. Extraocular muscles intact. NECK: Supple. No carotid bruit. No thyromegaly. CHEST: Clear to auscultation. Decreased air entry at the right base is noted. HEART: S1 and S2 regular. ABDOMEN: Soft. EXTREMITIES: Clubbing and cyanosis negative. LABORATORY DATA: Blood workup as follows: WBC 16.8, hemoglobin 7.9, hematocrit 24.3, and platelet count 389. Chemistry shows sodium 141, potassium 4.5, chloride 108, carbon dioxide 16, anion gap of , BUN 120, creatinine 6.9. Troponin 0.04, 0.08. IMPRESSION: Acute kidney injury with creatinine clearance of 8 mL an hour, diabetes, hypertension, hyperlipidemia, rule out sepsis, rule out gastrointestinal bleed, anemia, coronary artery disease, cardiomyopathy, status post stent in the left anterior descending. Severely decreased left ventricular function, ejection fraction 15%, status post automatic implantable cardioverter-defibrillator. Acute kidney injury on chronic renal insufficiency. Paroxysmal atrial fibrillation, now the patient went into atrial fibrillation with heart rate of 140. RECOMMENDATIONS: We will give verapamil 2.5 mg twice becomes hypotensive, we will give bolus saline 140. Continue gentle diuretics. Keep negative fluid balance. Continue milrinone. Discontinue norepinephrine as the blood pressure is above 100. Discussed with the nursing staff. Discussed with the resident taking care of. Discussed with the . Overall, the patient's condition is critical. Long-term prognosis is extremely guarded. We will follow with you. 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 He was on Coumadin, on hold because of severe anemia and GI bleed. Anticoagulation is on hold. We will repeat the blood workup in the morning. Arabella Mathews MD
[2018-02-06] MEDS ORDERED: Iohexol 350 MG/100 ML VIAL ONE (21:23)
--- NOTE | 2018-02-07 02:44 | CON ---
DATE: 02/06/2018 REASON FOR CONSULTATION: Acute kidney injury, hypotension, tachycardia, shortness of breath. HISTORY OF PRESENT ILLNESS: A 72-year-old male known to me from multiple prior evaluations. The patient was admitted on 02/04/2018 with complaints of disorderly breathing. As per the , the patient had very loud and noisy breathing. He was lethargic at home. P.o. intake was poor. She also reports that he was not speaking right. He was brought to the emergency room. In the emergency room, he was found to be hypotensive. He was found to be hyperglycemic. He was found to have acute kidney injury superimposed on his chronic kidney disease stage V. Code sepsis was called. Because the patient had an elevated lactate, he was hypotensive and tachycardic. His white count was found to be 11.7. He had an elevated BUN of 120, creatinine was 8.3. His anion gap was 22. The patient was admitted in the ICU. His chest x-ray showed right sided pneumonia. PAST MEDICAL AND SURGICAL HISTORY: CVA, lung cancer, atrial fibrillation, CAD, CHF, endocarditis, AAA, AVR, PTCA with stents x3, NIDDM, colon cancer, history of colectomy, colostomy, chronic kidney disease stage V. FAMILY HISTORY: Noncontributory. SOCIAL HISTORY: No smoking, no alcohol use, no IV drug abuse. ALLERGIES: NO KNOWN DRUG ALLERGIES. MEDICATIONS AT HOME: Metolazone 2.5 daily, Coumadin 1.5, Flomax 0.4, sodium bicarbonate 650 t.i.d., Protonix, milrinone, mag oxide, insulin, Lasix, Proscar, Feosol, Coreg 25 b.i.d., PhosLo, Lipitor, aspirin, amiodarone. REVIEW OF SYSTEMS: Unavailable as the patient is unable to cooperate. PHYSICAL EXAMINATION: GENERAL: Elderly male, lying in bed in the ICU. VITAL SIGNS: Blood pressure 78/54, heart rate 120, respiratory rate 18, temperature 98.4. HEENT: Normocephalic, atraumatic, positive pallor. NECK: Supple, no JVD. LUNGS: Bilateral equal air entry, bilateral equal expansion, no rales appreciated anteriorly. CARDIAC: S1 and S2, regular rate and rhythm, no murmur, no rub. ABDOMEN: Obese, distended, soft, right-sided colostomy with stool in the bag, with bowel sounds present. EXTREMITIES: No lower extremity edema. INTAKE AND OUTPUT: 1354/700. LABORATORY DATA: WBC 16.8, hemoglobin 7.9, hematocrit 24, platelets 389. Sodium 141, potassium 4.5, chloride 108, CO2 of 16, anion gap 17, BUN 120, creatinine 6.9, glucose 124, calcium 9.5, AST 28, ALT 27, albumin 2.9. Urinalysis yellow, cloudy, pH 6, specific gravity 1.020, protein 100, glucose 500, blood trace intact, leukocyte esterase moderate. Urine culture, Gram-negative avis. Blood culture, no growth. CT of the chest, abdomen and pelvis, multifocal pneumonia involving posterior segment of the right upper lobe, lingula and both lower lobes, worse in the right lower lobe with dense consolidation CURRENT MEDICATIONS: Doxycycline 100 every 12, Ecotrin, heparin 18 units per kg; Lasix 20 IV b.i.d., not given; Levemir, Levophed, Lipitor, meropenem, milrinone, Proscar, Protonix. ASSESSMENT: 1. Acute kidney injury, superimposed on chronic kidney disease stage V. 2. Septic shock, hypotension, tachycardia, metabolic acidosis. 3. Multilobar pneumonia. 4. Gram-negative urinary tract infection. 5. Severe anemia. 6. History of congestive heart failure, cardiomyopathy, home milrinone therapy. 7. Mild hypernatremia. 8. Critically ill with grim prognosis. PLAN: 1. Discussed with , offered dialysis in case it became necessary, the patient's does not want dialysis. 2. Continue supportive care of this time. 3. IV antibiotics as per ID recommendations for healthcare-associated pneumonia. 4. Dose all antibiotics for creatinine clearance less than 10 mL per minute. 5. Continue milrinone therapy. 6. Consider IV hydration if okay with Cardiology. 7. Continue to monitor fingerstick and maintain euglycemia. 8. Monitor H and H, and consider transfusing. 9. Case discussed with at bedside. 10. Case discussed with ICU staff. More than 35 minutes was spent in the care of this critically ill patient. Kaylen Crump MD
[2018-02-07] MEDS: Oxycodone/Acetaminophen 5/325 mg Tab PO PRN (03:40)
[2018-02-07 04:27] LABS: BASO # 0.01 K/mm3 (0.0-2.0); BASO % 0.1 % (0.0-3.0); EOS % 0.1 % (1.5-5.0); GRAN # 14.65 (1.4-6.5); GRAN % 93.5 % (50.0-68.0); HEMOGLOBIN 8.1 g/dL (14.0-18.0); LYMPH # 0.3 (1.2-3.4); LYMPH % 2.1 % (22.0-35.0); MEAN CELL VOLUME 81.4 fl (80.0-105.0); MEAN CORPUSCULAR HEMOGLOBIN 26.9 pg (25.0-35.0); MEAN CORPUSCULAR HGB CONC 33.1 g/dl (31.0-37.0); MEAN PLATELET VOLUME 8.7 fl (7.0-11.0); MONO # 0.7 (0.1-0.6); MONO % 4.2 % (1.0-6.0); RBC 3.01 10^6/uL (3.5-6.1); RED CELL DISTRIBUTION WIDTH 18.6 % (11.5-14.5); WHITE BLOOD COUNT 15.7 10^3/ul (4.5-11.0)
[2018-02-07 04:55] LABS: ALB/GLOB RATIO 0.8 (1.1-1.8); ALBUMIN 2.8 g/dL (3.0-4.8); CALCIUM 9.6 mg/dL (8.4-10.5)
[2018-02-07] MEDS: Insulin Lispro (humaLOG) MEDIUM Coverage SC SCH ×5 (05:42→22:05)
[2018-02-07] MEDS: Heparin25000 units/250ml 1/2NS 25,000 UNITS/250 ML BAG IV PRN ×2 (05:43→11:34)
[2018-02-07] MEDS: Pantoprazole 40 mg EC Tab PO SCH (05:44)
--- NOTE | 2018-02-07 09:41 | CP.PCM.CON ---
History of Present Illness - History of Present Illness History of Present Illness: Palliative consult requested by Dr Carol Stephens Reason: Goals of care 72 year old male with history of cardiomyopathy, metastatic lung cancer, CKD, DM and anemia who presented to ED on 02/04/18 with altered mental status, weakness,anemia, tachycardia, decreased appetite and hypotension. Chest x ray showed RLL pneumonia, left mid lung consolidation. CT confirmed multifocal pneumonia of posterior RUL, lingula and both lower lobes, RLL consolidation, multiple hepatic metastasis. Patient also found to have leukocytosis, anemia and DAYTON on CKD. PMHx: COPD, DM,CAD, cardiography on Milrinone drip, AAA, CVA,right hemiparesis, UTI, PAT, AICD, diverticulitis,pneumonia, anemia, CKD. PSH: colostomy, enodvascular repair, PTCA x3, AICD placement. Social History: Never smoker, no alcohol or drug use. , lives with spouse. Speaks Italian. Family History: Non contributory Advance Care Planning: The patient does not have an Advanced Directive. Review of Systems: As per HPI, altered 12 point review limited Vital Signs: T 97.8, P 120, BP 100/60, R 19 Labs: Wbc 15.7, Hgb 8.1, Plt 344, Na 140, K 5.0, BUN 121, creat 7.1, T Bili 2.5 , Alk Phos 342, Albumin 2.8 Past Patient History - Infectious Disease Hx of Infectious Diseases: None - Tetanus Immunizations Tetanus Immunization: Unknown - Past Medical History & Family History Past Medical History?: Yes - Past Social History Smoking Status: Never Smoked - CARDIAC Hx Cardiac Disorders: Yes Hx Congestive Heart Failure: Yes - PULMONARY Hx Respiratory Disorders: Yes (LUNG CA-RADIATION) - NEUROLOGICAL HX Cerebrovascular Accident: Yes - HEENT Hx HEENT Problems: Yes - RENAL Hx Chronic Kidney Disease: Yes Hx Renal Failure: Yes - ENDOCRINE/METABOLIC Hx Diabetes Mellitus Type 2: Yes - HEMATOLOGICAL/ONCOLOGICAL Hx Cancer: Yes (lung) - INTEGUMENTARY Other/Comment: multiple moles around neck, red raised b/l groin rash , multiple skin discolorations to both arms. PORT TO RIGHT CHEST WALL 09-26-17 - MUSCULOSKELETAL/RHEUMATOLOGICAL Hx Musculoskeletal Disorders: Yes Hx Falls: Yes - GASTROINTESTINAL Hx Colostomy: Yes - GENITOURINARY/GYNECOLOGICAL Hx Prostate Problems: Yes (BPH WITH PROSTATE SX) Other/Comment: #16 2wf - PSYCHIATRIC Hx Depression: Yes Hx Substance Use: No - SURGICAL HISTORY Hx Coronary Stent: Yes (x3) Other/Comment: port rt upper chest - ANESTHESIA Hx Anesthesia: Yes Hx Anesthesia Reactions: No Hx Malignant Hyperthermia: No Meds Allergies/Adverse Reactions: Allergies Allergy/AdvReac Type Severity Reaction Status Date / Time No Known Allergies Allergy Verified 10/03/17 12:09 - Medications Medications: Current Medications Aspirin (Ecotrin) 81 mg PO DAILY [facility] Last Admin: 02/06/18 09:46 Dose: 81 mg Atorvastatin Calcium (Lipitor) 10 mg PO DAILY [facility] Last Admin: 02/06/18 09:46 Dose: 10 mg Finasteride (Proscar) 5 mg PO DAILY [facility] Last Admin: 02/06/18 09:46 Dose: 5 mg Furosemide (Lasix) 20 mg IVP BID [facility] Last Admin: 02/06/18 17:39 Dose: Not Given Milrinone Lactate/Dextrose (Primacor 20mg/100ml D5w) 100 mls @ 2.585 mls/hr IV .Q24H PRN; Protocol; 0.125 MCG/KG/MIN PRN Reason: TITRATE PER MD ORDER Last Admin: 02/06/18 06:51 Dose: 0.1 mcg/kg/min, 2.068 mls/hr Doxycycline Hyclate 100 mg/ (Sodium Chloride) 100 mls @ 100 mls/hr IVPB Q12 ANTHONY PRN Reason: Protocol Last Admin: 02/06/18 21:30 Dose: 100 mls/hr Sodium Chloride (Sodium Chloride 0.9%) 1,000 mls @ 80 mls/hr IV .[id number] [facility] Last Admin: 02/04/18 23:45 Dose: 80 mls/hr Meropenem 500 mg/ Sodium (Chloride) 50 mls @ 100 mls/hr IVPB DAILY [facility] PRN Reason: Protocol Stop: 02/14/18 10:01 Last Admin: 02/06/18 09:46 Dose: 100 mls/hr Heparin Sodium/Sodium Chloride (Heparin 36633 Units/250ml 1/2 Normal Saline) 25 ,000 units in 250 mls @ 11.975 mls/hr IV .[id number] PRN; Protocol; 20 UNITS/KG/HR PRN Reason: ADJUST RATE PER PROTOCOL Last Admin: 02/07/18 05:43 Dose: 20 units/kg/hr, 11.975 mls/hr Insulin Detemir (Levemir) 13 unit SC [facility] Insulin Human Lispro (Humalog Med) 0 units SC [facility] PRN Reason: Protocol Last Admin: 02/07/18 08:44 Dose: 3 unit Oxycodone/Acetaminophen (Percocet 5/325 Mg Tab) 1 tab PO Q6H PRN PRN Reason: Pain, moderate (4-7) Stop: 02/09/18 13:07 Last Admin: 02/07/18 03:40 Dose: 1 tab Pantoprazole Sodium (Protonix Ec Tab) 40 mg PO 0600 ANTHONY Last Admin: 02/07/18 05:44 Dose: 40 mg Physical Exam - Constitutional Appears: Cachectic, Chronically Ill - Head Exam Head Exam: NORMAL INSPECTION - Eye Exam Eye Exam: Normal appearance, PERRL - ENT Exam ENT Exam: Mucous Membranes Moist, Normal Oropharynx - Neck Exam Neck exam: Positive for: Normal Inspection - Respiratory Exam Respiratory Exam: Decreased Breath Sounds, NORMAL BREATHING PATTERN - Cardiovascular Exam Cardiovascular Exam: Tachycardia, Irregular Rhythm, +S1, +S2 - GI/Abdominal Exam GI & Abdominal Exam: Hypoactive Bowel Sounds, Soft Additional comments: colostomy patent - Exam Additional comments: oliguria - Skin Skin Exam: Dry, Pallor - Additional Findings Additional findings: palliative performance scale rating 30 % Results - Vital Signs Recent Vital Signs: Last Vital Signs Temp 97.8 F 02/06/18 20:00 Pulse 119 H 02/07/18 09:00 Resp 21 02/07/18 09:00 BP 111/57 L 02/07/18 09:00 Pulse Ox 97 02/07/18 09:00 - Labs Result Diagrams: 02/08/18 05:00 02/08/18 05:00 Labs: Laboratory Results - last 24 hr 02/05/18 02/05/18 02/05/18 06:38 11:14 16:19 WBC RBC Hgb Hct MCV MCH MCHC RDW Plt Count MPV Gran % Lymph % (Auto) [place] % (Auto) Eos % (Auto) Baso % (Auto) Gran # Lymph # (Auto) [place] # (Auto) Eos # (Auto) Baso # (Auto) APTT Sodium Potassium Chloride Carbon Dioxide Anion Gap BUN Creatinine Est GFR ( Amer) Est GFR (Non-Af Amer) POC Glucose (mg/dL) 371 H 253 H 289 H Random Glucose Calcium Phosphorus Magnesium Total Bilirubin AST ALT Alkaline Phosphatase Total Protein Albumin Globulin Albumin/Globulin Ratio Stool Occult Blood 02/05/18 02/06/18 02/06/18 23:58 07:26 11:42 WBC RBC Hgb Hct MCV MCH MCHC RDW Plt Count MPV Gran % Lymph % (Auto) [place] % (Auto) Eos % (Auto) Baso % (Auto) Gran # Lymph # (Auto) [place] # (Auto) Eos # (Auto) Baso # (Auto) APTT Sodium Potassium Chloride Carbon Dioxide Anion Gap BUN Creatinine Est GFR ( Amer) Est GFR (Non-Af Amer) POC Glucose (mg/dL) 174 H 140 H 221 H Random Glucose Calcium Phosphorus Magnesium Total Bilirubin AST ALT Alkaline Phosphatase Total Protein Albumin Globulin Albumin/Globulin Ratio Stool Occult Blood 02/06/18 02/06/18 02/06/18 12:57 15:55 21:54 WBC RBC Hgb Hct MCV MCH MCHC RDW Plt Count MPV Gran % Lymph % (Auto) [place] % (Auto) Eos % (Auto) Baso % (Auto) Gran # Lymph # (Auto) [place] # (Auto) Eos # (Auto) Baso # (Auto) APTT Sodium Potassium Chloride Carbon Dioxide Anion Gap BUN Creatinine Est GFR ( Amer) Est GFR (Non-Af Amer) POC Glucose (mg/dL) 248 H 222 H Random Glucose Calcium Phosphorus Magnesium Total Bilirubin AST ALT Alkaline Phosphatase Total Protein Albumin Globulin Albumin/Globulin Ratio Stool Occult Blood Positive H 02/07/18 02/07/18 02/07/18 04:15 04:15 04:15 WBC 15.7 H RBC 3.01 L Hgb 8.1 L Hct 24.5 L MCV 81.4 MCH 26.9 MCHC 33.1 RDW 18.6 H Plt Count 344 MPV 8.7 Gran % 93.5 H Lymph % (Auto) 2.1 L [place] % (Auto) 4.2 Eos % (Auto) 0.1 L Baso % (Auto) 0.1 Gran # 14.65 H Lymph # (Auto) 0.3 L [place] # (Auto) 0.7 H Eos # (Auto) 0.0 Baso # (Auto) 0.01 APTT 36.3 Sodium 140 Potassium 5.0 Chloride 108 H Carbon Dioxide 17 L Anion Gap 21 H BUN 121 H* Creatinine 7.1 H Est GFR ( Amer) 9 Est GFR (Non-Af Amer) 8 POC Glucose (mg/dL) Random Glucose 183 H Calcium 9.6 Phosphorus 3.9 Magnesium 2.5 H Total Bilirubin 0.3 AST 42 ALT 20 Alkaline Phosphatase 342 H Total Protein 6.1 Albumin 2.8 L Globulin 3.3 Albumin/Globulin Ratio 0.8 L Stool Occult Blood 02/07/18 07:20 WBC RBC Hgb Hct MCV MCH MCHC RDW Plt Count MPV Gran % Lymph % (Auto) [place] % (Auto) Eos % (Auto) Baso % (Auto) Gran # Lymph # (Auto) [place] # (Auto) Eos # (Auto) Baso # (Auto) APTT Sodium Potassium Chloride Carbon Dioxide Anion Gap BUN Creatinine Est GFR ( Amer) Est GFR (Non-Af Amer) POC Glucose (mg/dL) 207 H Random Glucose Calcium Phosphorus Magnesium Total Bilirubin AST ALT Alkaline Phosphatase Total Protein Albumin Globulin Albumin/Globulin Ratio Stool Occult Blood Assessment & Plan - Assessment and Plan (Free Text) Assessment: 72 year old male with history of multiple comorbidities(see PMH) who is admitted with anemia, [place] in CKD,sepsis, pneumonia, PAT, dysphagia and altered mental status. The patient and family are well known to me from previous admissions. Lengthy discussions have taken place regarding goals of care and advance care planning. Family aware of patients medical problems and poor prognosis. Family has been resistant to initiating advance care planning; DNR/DNI and have refused hospice care. Family discussed benefits and burdens of dialysis with nephrology and have refused dialysis treatment. Another discussion regrading gaols of care was initiated today, but resistant to palnning at this time. Encouraged family meeting. informs team that her son will be coming later to day to meet with team. sted that her son will be coming in later in he day for meeting. Time spent in goals of care discussion with , 15 minutes Plan: Goals of care and advance care planning Anemia: s/p transfusion, monitor CBC Lung Cancer: F/u with oncology as an outpatient A Fib/cardiomyoathy: Cardiology following, on Milrinone, ASA, Verapamil, Lasix, Proscar. Sepsis:ID following, on Merrem. DM: Monitor glucose levels,.insulin.
[2018-02-07] MEDS: Meropenem 500 MG in Sodium Chloride 0.9% 50 ML IVPB SCH (09:47)
--- NOTE | 2018-02-07 10:07 | CP.CCUPN ---
Addendum entered and electronically signed by Bernardino Domingo DO 02/07/18 14: 04: Correction: HPI should read, "pt was afebrile overnight without episodes of hypotension, and MAP> mmHg." Original Note: <Bernardino Domingo - Last Filed: 02/07/18 13:22> CCU Subjective - Physician Review Subjective (Free Text): Bernardino Domingo DO PGY-1, ICU progress note for Dr. Bright Patient seen and examined at bedside. Translation was obtained by pt's , who is at bedside. Pt remains unable to answer questions, but does make eye contact during conversation. Pt is AF on the monitor, Verapamil 2.5 mg IVP given as per Cardio. Milrinone remains at 0.1 mcg/kg/min. Pt produced 300 mL of yellow urine over the past 12 hours. Pt was febrile overnight without episodes of hypotension, and MAP>60 mmHg. A 12-point ROS was unobtainable due to pt's mental status. CCU Objective - Vital Signs / Intake & Output Vital Signs (Last 4 hours): Vital Signs Pulse Resp BP Pulse Ox 02/07/18 09:48 103/67 02/07/18 09:00 119 H 21 111/57 L 97 02/07/18 08:50 123 H 29 H 98 02/07/18 08:46 125 H 120/66 02/07/18 08:40 125 H 22 99 02/07/18 08:30 122 H 16 120/66 98 02/07/18 08:20 121 H 20 97 02/07/18 08:10 118 H 17 98 02/07/18 08:00 119 H 17 120/81 97 02/07/18 07:50 122 H 16 99 02/07/18 07:40 120 H 16 97 02/07/18 07:30 120 H 17 123/67 96 02/07/18 07:20 120 H 21 99 02/07/18 07:10 122 H 15 98 02/07/18 07:00 121 H 17 116/73 97 02/07/18 06:50 118 H 18 98 02/07/18 06:40 119 H 23 99 02/07/18 06:30 117 H 16 123/71 99 02/07/18 06:20 118 H 16 99 02/07/18 06:10 120 H 19 99 Intake and Output (Last 8hrs): Intake & Output 02/06/18 02/07/18 02/07/18 22:59 06:59 14:59 Intake Total 805 Output Total 300 Balance 505 Intake: IV 325 Right Chest 325 Oral 480 Output: Stool 300 - Physical Exam Physical Exam Limitations: Positive for: Altered Mental Status Head: Positive for: Atraumatic, Normocephalic Pupils: Positive for: PERRL Extroacular Muscles: Positive for: EOMI Conjunctiva: Positive for: Normal Mouth: Positive for: Dry Neck: Positive for: Normal Range of Motion. Negative for: JVD Respiratory/Chest: Positive for: Rhonchi (in RLL), Other ((+) right upper chest port). Negative for: Good Air Exchange, Wheezes Cardiovascular: Positive for: Normal S1, S2, Tachycardic. Negative for: Murmurs Abdomen: Positive for: Tenderness (in RLQ), Normal Bowel Sounds, Other ((+) colostomy bag with nonbloody stool; (+) pulsatile mass, history of aaa). Negative for: Distention, Peritoneal Signs, Rebound, Guarding Back: Positive for: Normal Inspection Upper Extremity: Positive for: Normal Inspection. Negative for: Cyanosis, Edema Lower Extremity: Positive for: Normal Inspection. Negative for: Edema Neurological: Negative for: GCS=15 (GCS=11; opens eyes spontaneously, incomprehensible sounds, localizes pain) Skin: Positive for: Warm, Dry, Normal Color, Other ((+) scattered senile purpora ). Negative for: Rashes Psychiatric: Positive for: Alert. Negative for: Oriented x 3 (Pt was able to state his name, but did not answer to place or time.) - Medications Active Medications: Active Medications Generic Name Dose Route Start Last Admin Trade Name Freq PRN Reason Stop Dose Admin Aspirin 81 mg 02/05/18 10:00 02/07/18 09:47 Ecotrin PO 81 mg DAILY ANTHONY Administration Atorvastatin Calcium 10 mg 02/05/18 10:00 02/07/18 09:47 Lipitor PO 10 mg DAILY ANTHONY Administration Finasteride 5 mg 02/05/18 10:00 02/07/18 09:47 Proscar PO 5 mg DAILY ANTHONY Administration Furosemide 20 mg 02/05/18 18:00 02/07/18 09:48 Lasix IVP 20 mg BID ANTHONY Administration Milrinone Lactate/Dextrose 100 mls @ 2.585 mls/hr 02/04/18 22:18 02/06/18 06: 51 Primacor 20mg/100ml D5w IV 0.1 mcg/kg/min .Q24H PRN 2.068 mls/hr TITRATE PER MD ORDER Administration Protocol 0.125 MCG/KG/MIN Doxycycline Hyclate 100 mg/ 100 mls @ 100 mls/hr 02/05/18 10:00 02/07/18 09: 46 Sodium Chloride IVPB 100 mls/hr Q12 ANTHONY Administration Protocol Sodium Chloride 1,000 mls @ 80 mls/hr 02/04/18 23:25 02/04/18 23:45 Sodium Chloride 0.9% IV 80 mls/hr .[id number] ANTHONY Administration Meropenem 500 mg/ Sodium 50 mls @ 100 mls/hr 02/06/18 07:46 02/07/18 09:47 Chloride IVPB 02/14/18 10:01 100 mls/hr DAILY ANTHONY Administration Protocol Heparin Sodium/Sodium Chloride 25,000 units in 250 mls @ 11.975 mls/hr 05:24 02/07/18 05:43 Heparin 34758 Units/250ml 1/2 Normal Saline IV 20 units/kg/hr .[id number] PRN 11.975 mls/hr ADJUST RATE PER PROTOCOL Administration Protocol 20 UNITS/KG/HR Insulin Detemir 13 unit 02/05/18 22:00 Levemir SC HS [facility] Insulin Human Lispro 0 units 02/06/18 07:30 02/07/18 08:44 Humalog Med SC 3 unit ACHS ANTHONY Administration Protocol Oxycodone/Acetaminophen 1 tab 02/06/18 13:06 02/07/18 03:40 Percocet 5/325 Mg Tab PO 02/09/18 13:07 1 tab Q6H PRN Administration Pain, moderate (4-7) Pantoprazole Sodium 40 mg 02/07/18 06:00 02/07/18 05:44 Protonix Ec Tab PO 40 mg 0600 ANTHONY Administration - Patient Studies Lab Studies: Microbiology Studies 02/05/18 01:30 MRSA Culture (Admit) - Final Nose MRSA NOT DETECTED Lab Studies 02/07/18 02/07/18 02/07/18 Range/Units 07:20 04:15 04:15 WBC (4.5-11.0) 10^3/ul RBC (3.5-6.1) 10^6/uL Hgb (14.0-18.0) g/dL Hct (42.0-52.0) % MCV (80.0-105.0) fl MCH (25.0-35.0) pg MCHC (31.0-37.0) g/dl RDW (11.5-14.5) % Plt Count (120.0-450.0) 10^3/uL MPV (7.0-11.0) fl Gran % (50.0-68.0) % Lymph % (Auto) (22.0-35.0) % [place] % (Auto) (1.0-6.0) % Eos % (Auto) (1.5-5.0) % Baso % (Auto) (0.0-3.0) % Gran # (1.4-6.5) Lymph # (Auto) (1.2-3.4) [place] # (Auto) (0.1-0.6) Eos # (Auto) (0.0-0.7) Baso # (Auto) (0.0-2.0) K/mm3 APTT 36.3 (25.1-36.5) Seconds Sodium 140 (132-148) mmol/L Potassium 5.0 (3.6-5.0) mmol/L Chloride 108 H (98-107) mmol/L Carbon Dioxide 17 L (21-33) mmol/L Anion Gap 21 H (10-20) BUN 121 H* (7-21) mg/dL Creatinine 7.1 H (0.8-1.5) mg/dl Est GFR ( Amer) 9 Est GFR (Non-Af Amer) 8 POC Glucose (mg/dL) 207 H (65-110) mg/dL Random Glucose 183 H (70-110) mg/dL Calcium 9.6 (8.4-10.5) mg/dL Phosphorus 3.9 (2.5-4.5) mg/dL Magnesium 2.5 H (1.7-2.2) mg/dL Total Bilirubin 0.3 (0.2-1.3) mg/dL AST 42 (17-59) U/L ALT 20 (7-56) U/L Alkaline Phosphatase 342 H (38-126) U/L Total Protein 6.1 (5.8-8.3) g/dL Albumin 2.8 L (3.0-4.8) g/dL Globulin 3.3 gm/dL Albumin/Globulin Ratio 0.8 L (1.1-1.8) Stool Occult Blood (NEGATIVE) 02/07/18 02/06/18 02/06/18 Range/Units 04:15 21:54 15:55 WBC 15.7 H (4.5-11.0) 10^3/ul RBC 3.01 L (3.5-6.1) 10^6/uL Hgb 8.1 L (14.0-18.0) g/dL Hct 24.5 L (42.0-52.0) % MCV 81.4 (80.0-105.0) fl MCH 26.9 (25.0-35.0) pg MCHC 33.1 (31.0-37.0) g/dl RDW 18.6 H (11.5-14.5) % Plt Count 344 (120.0-450.0) 10^3/uL MPV 8.7 (7.0-11.0) fl Gran % 93.5 H (50.0-68.0) % Lymph % (Auto) 2.1 L (22.0-35.0) % [place] % (Auto) 4.2 (1.0-6.0) % Eos % (Auto) 0.1 L (1.5-5.0) % Baso % (Auto) 0.1 (0.0-3.0) % Gran # 14.65 H (1.4-6.5) Lymph # (Auto) 0.3 L (1.2-3.4) [place] # (Auto) 0.7 H (0.1-0.6) Eos # (Auto) 0.0 (0.0-0.7) Baso # (Auto) 0.01 (0.0-2.0) K/mm3 APTT (25.1-36.5) Seconds Sodium (132-148) mmol/L Potassium (3.6-5.0) mmol/L Chloride (98-107) mmol/L Carbon Dioxide (21-33) mmol/L Anion Gap (10-20) BUN (7-21) mg/dL Creatinine (0.8-1.5) mg/dl Est GFR ( Amer) Est GFR (Non-Af Amer) POC Glucose (mg/dL) 222 H 248 H (65-110) mg/dL Random Glucose (70-110) mg/dL Calcium (8.4-10.5) mg/dL Phosphorus (2.5-4.5) mg/dL Magnesium (1.7-2.2) mg/dL Total Bilirubin (0.2-1.3) mg/dL AST (17-59) U/L ALT (7-56) U/L Alkaline Phosphatase (38-126) U/L Total Protein (5.8-8.3) g/dL Albumin (3.0-4.8) g/dL Globulin gm/dL Albumin/Globulin Ratio (1.1-1.8) Stool Occult Blood (NEGATIVE) 02/06/18 02/06/18 02/06/18 Range/Units 12:57 11:42 07:26 WBC (4.5-11.0) 10^3/ul RBC (3.5-6.1) 10^6/uL Hgb (14.0-18.0) g/dL Hct (42.0-52.0) % MCV (80.0-105.0) fl MCH (25.0-35.0) pg MCHC (31.0-37.0) g/dl RDW (11.5-14.5) % Plt Count (120.0-450.0) 10^3/uL MPV (7.0-11.0) fl Gran % (50.0-68.0) % Lymph % (Auto) (22.0-35.0) % [place] % (Auto) (1.0-6.0) % Eos % (Auto) (1.5-5.0) % Baso % (Auto) (0.0-3.0) % Gran # (1.4-6.5) Lymph # (Auto) (1.2-3.4) [place] # (Auto) (0.1-0.6) Eos # (Auto) (0.0-0.7) Baso # (Auto) (0.0-2.0) K/mm3 APTT (25.1-36.5) Seconds Sodium (132-148) mmol/L Potassium (3.6-5.0) mmol/L Chloride (98-107) mmol/L Carbon Dioxide (21-33) mmol/L Anion Gap (10-20) BUN (7-21) mg/dL Creatinine (0.8-1.5) mg/dl Est GFR ( Amer) Est GFR (Non-Af Amer) POC Glucose (mg/dL) 221 H 140 H (65-110) mg/dL Random Glucose (70-110) mg/dL Calcium (8.4-10.5) mg/dL Phosphorus (2.5-4.5) mg/dL Magnesium (1.7-2.2) mg/dL Total Bilirubin (0.2-1.3) mg/dL AST (17-59) U/L ALT (7-56) U/L Alkaline Phosphatase (38-126) U/L Total Protein (5.8-8.3) g/dL Albumin (3.0-4.8) g/dL Globulin gm/dL Albumin/Globulin Ratio (1.1-1.8) Stool Occult Blood Positive H (NEGATIVE) 02/05/18 02/05/18 02/05/18 Range/Units 23:58 16:19 11:14 WBC (4.5-11.0) 10^3/ul RBC (3.5-6.1) 10^6/uL Hgb (14.0-18.0) g/dL Hct (42.0-52.0) % MCV (80.0-105.0) fl MCH (25.0-35.0) pg MCHC (31.0-37.0) g/dl RDW (11.5-14.5) % Plt Count (120.0-450.0) 10^3/uL MPV (7.0-11.0) fl Gran % (50.0-68.0) % Lymph % (Auto) (22.0-35.0) % [place] % (Auto) (1.0-6.0) % Eos % (Auto) (1.5-5.0) % Baso % (Auto) (0.0-3.0) % Gran # (1.4-6.5) Lymph # (Auto) (1.2-3.4) [place] # (Auto) (0.1-0.6) Eos # (Auto) (0.0-0.7) Baso # (Auto) (0.0-2.0) K/mm3 APTT (25.1-36.5) Seconds Sodium (132-148) mmol/L Potassium (3.6-5.0) mmol/L Chloride (98-107) mmol/L Carbon Dioxide (21-33) mmol/L Anion Gap (10-20) BUN (7-21) mg/dL Creatinine (0.8-1.5) mg/dl Est GFR ( Amer) Est GFR (Non-Af Amer) POC Glucose (mg/dL) 174 H 289 H 253 H (65-110) mg/dL Random Glucose (70-110) mg/dL Calcium (8.4-10.5) mg/dL Phosphorus (2.5-4.5) mg/dL Magnesium (1.7-2.2) mg/dL Total Bilirubin (0.2-1.3) mg/dL AST (17-59) U/L ALT (7-56) U/L Alkaline Phosphatase (38-126) U/L Total Protein (5.8-8.3) g/dL Albumin (3.0-4.8) g/dL Globulin gm/dL Albumin/Globulin Ratio (1.1-1.8) Stool Occult Blood (NEGATIVE) 02/05/18 Range/Units 06:38 WBC (4.5-11.0) 10^3/ul RBC (3.5-6.1) 10^6/uL Hgb (14.0-18.0) g/dL Hct (42.0-52.0) % MCV (80.0-105.0) fl MCH (25.0-35.0) pg MCHC (31.0-37.0) g/dl RDW (11.5-14.5) % Plt Count (120.0-450.0) 10^3/uL MPV (7.0-11.0) fl Gran % (50.0-68.0) % Lymph % (Auto) (22.0-35.0) % [place] % (Auto) (1.0-6.0) % Eos % (Auto) (1.5-5.0) % Baso % (Auto) (0.0-3.0) % Gran # (1.4-6.5) Lymph # (Auto) (1.2-3.4) [place] # (Auto) (0.1-0.6) Eos # (Auto) (0.0-0.7) Baso # (Auto) (0.0-2.0) K/mm3 APTT (25.1-36.5) Seconds Sodium (132-148) mmol/L Potassium (3.6-5.0) mmol/L Chloride (98-107) mmol/L Carbon Dioxide (21-33) mmol/L Anion Gap (10-20) BUN (7-21) mg/dL Creatinine (0.8-1.5) mg/dl Est GFR ( Amer) Est GFR (Non-Af Amer) POC Glucose (mg/dL) 371 H (65-110) mg/dL Random Glucose (70-110) mg/dL Calcium (8.4-10.5) mg/dL Phosphorus (2.5-4.5) mg/dL Magnesium (1.7-2.2) mg/dL Total Bilirubin (0.2-1.3) mg/dL AST (17-59) U/L ALT (7-56) U/L Alkaline Phosphatase (38-126) U/L Total Protein (5.8-8.3) g/dL Albumin (3.0-4.8) g/dL Globulin gm/dL Albumin/Globulin Ratio (1.1-1.8) Stool Occult Blood (NEGATIVE) Laboratory Results - last 24 hr 02/05/18 02/05/18 02/05/18 06:38 11:14 16:19 WBC RBC Hgb Hct MCV MCH MCHC RDW Plt Count MPV Gran % Lymph % (Auto) [place] % (Auto) Eos % (Auto) Baso % (Auto) Gran # Lymph # (Auto) [place] # (Auto) Eos # (Auto) Baso # (Auto) APTT Sodium Potassium Chloride Carbon Dioxide Anion Gap BUN Creatinine Est GFR ( Amer) Est GFR (Non-Af Amer) POC Glucose (mg/dL) 371 H 253 H 289 H Random Glucose Calcium Phosphorus Magnesium Total Bilirubin AST ALT Alkaline Phosphatase Total Protein Albumin Globulin Albumin/Globulin Ratio Stool Occult Blood 02/05/18 02/06/18 02/06/18 23:58 07:26 11:42 WBC RBC Hgb Hct MCV MCH MCHC RDW Plt Count MPV Gran % Lymph % (Auto) [place] % (Auto) Eos % (Auto) Baso % (Auto) Gran # Lymph # (Auto) [place] # (Auto) Eos # (Auto) Baso # (Auto) APTT Sodium Potassium Chloride Carbon Dioxide Anion Gap BUN Creatinine Est GFR ( Amer) Est GFR (Non-Af Amer) POC Glucose (mg/dL) 174 H 140 H 221 H Random Glucose Calcium Phosphorus Magnesium Total Bilirubin AST ALT Alkaline Phosphatase Total Protein Albumin Globulin Albumin/Globulin Ratio Stool Occult Blood 02/06/18 02/06/18 02/06/18 12:57 15:55 21:54 WBC RBC Hgb Hct MCV MCH MCHC RDW Plt Count MPV Gran % Lymph % (Auto) [place] % (Auto) Eos % (Auto) Baso % (Auto) Gran # Lymph # (Auto) [place] # (Auto) Eos # (Auto) Baso # (Auto) APTT Sodium Potassium Chloride Carbon Dioxide Anion Gap BUN Creatinine Est GFR ( Amer) Est GFR (Non-Af Amer) POC Glucose (mg/dL) 248 H 222 H Random Glucose Calcium Phosphorus Magnesium Total Bilirubin AST ALT Alkaline Phosphatase Total Protein Albumin Globulin Albumin/Globulin Ratio Stool Occult Blood Positive H 02/07/18 02/07/18 02/07/18 04:15 04:15 04:15 WBC 15.7 H RBC 3.01 L Hgb 8.1 L Hct 24.5 L MCV 81.4 MCH 26.9 MCHC 33.1 RDW 18.6 H Plt Count 344 MPV 8.7 Gran % 93.5 H Lymph % (Auto) 2.1 L [place] % (Auto) 4.2 Eos % (Auto) 0.1 L Baso % (Auto) 0.1 Gran # 14.65 H Lymph # (Auto) 0.3 L [place] # (Auto) 0.7 H Eos # (Auto) 0.0 Baso # (Auto) 0.01 APTT 36.3 Sodium 140 Potassium 5.0 Chloride 108 H Carbon Dioxide 17 L Anion Gap 21 H BUN 121 H* Creatinine 7.1 H Est GFR ( Amer) 9 Est GFR (Non-Af Amer) 8 POC Glucose (mg/dL) Random Glucose 183 H Calcium 9.6 Phosphorus 3.9 Magnesium 2.5 H Total Bilirubin 0.3 AST 42 ALT 20 Alkaline Phosphatase 342 H Total Protein 6.1 Albumin 2.8 L Globulin 3.3 Albumin/Globulin Ratio 0.8 L Stool Occult Blood 02/07/18 07:20 WBC RBC Hgb Hct MCV MCH MCHC RDW Plt Count MPV Gran % Lymph % (Auto) [place] % (Auto) Eos % (Auto) Baso % (Auto) Gran # Lymph # (Auto) [place] # (Auto) Eos # (Auto) Baso # (Auto) APTT Sodium Potassium Chloride Carbon Dioxide Anion Gap BUN Creatinine Est GFR ( Amer) Est GFR (Non-Af Amer) POC Glucose (mg/dL) 207 H Random Glucose Calcium Phosphorus Magnesium Total Bilirubin AST ALT Alkaline Phosphatase Total Protein Albumin Globulin Albumin/Globulin Ratio Stool Occult Blood Fingerstick Blood Sugar Results: 207 Review of Systems - Review of Systems Systems not reviewed;Unavailable: Altered Mental Status All systems: reviewed and no additional remarkable complaints except (as per HPI ) Critical Care Progress Note - Extremities/Vascular Does the Patient have a Central Venous Catheter?: Yes - Prophylaxis GI Prophylaxis GI: PPI - Prophylaxis DVT Prophylaxis DVT: Warfarin (as well as heparin bridge; for treatment ) - Nutrition Nutrition: Nutrition Category Date Time Status Dysphagia/Modified Consistency Diet [DIET] Diets 02/05/18 Dinner Ordered Assessment/Plan - Assessment and Plan (Free Text) Assessment: Pt is a 72 yo male with a PMH of CVA, lung CA (radiation), CKD, Atrial Fibrillation, CAD, CHF, endocarditis, AAA, AVR, angina pectoris, coronary stents x 3m port to right upper chest, diabetes type 2, metastatic liver disease and colostomy, accompanied by his , presents to the emergency department complaining of hyperglycemia and hypotension. History is obtained from the pt's . Pt has poor communication. He was brought to the ED on 02/04 for history of lethargy and not being at baseline mental status for the past month note bed his . She also reported low blood pressure, pt unable to ambulate secondary to chronic illness, and has been losing wt for the past 2 months secondary to poor oral intake. Code sepsis called secondary to elevated Lactate, hypotension, tachycardia, possible source being UTI vs sacral ulcer vs PNA vs other etiology. Pt was admited to the ICU due to sepsis (lactate 4.6) secondary to bilateral pneumonia on CXR. Pt is currently off of levophed, with a milirnone gtt going at 0.1 mcg/kg/min. Pt has been off of levophed for 24 hours, and MAP has been consistently above 60 mmHg without periods of hypotension. Plan: Neuro: - continue to monitor for mental status changes - no signs of focal deficits - pt's altered mental status is likely secondary to profound uremia. - family still does not want hemodialysis at this time Cardio: - continue milrinone - verapamil as per cardio due to afib with tachycardia - continue, ASA, lipitor, lasix as per cardio - digoxin management as per cardio - maintain MAP >60 mmHg - troponin (02/05) is elevated; likely due to demand ischemia secondary to hypotension - pt is cleared for anticoagulation from GI standpoint as per GI; who are aware of hemoccult positive test - will start pt on home warfarin 5 mg PO for Afib anticoagulation. - continue heparin gtt bridge until INR is therapeutic (goal of 2-3) - cardiology is following, will f/u with recs Pulm: - CXR (02/06): no significant change in RLL and ULL pneumonia. - continue antibiotic as per ID - maintain spo2>90% - NC prn - HoB >30 degrees GI: - Abd/Pelv CT (02/05): Multifocal pneumonia involving posterior segment of the right upper lobe, lingula, and both lower lobes, worse in RLL with dense consolidation. Hepatic metastasis. - continue puree diet - continue protonix for GI ppx - No plans for endoscopic evaluation as per GI : - continue home Finasteride - pt has indwelling ken in place Renal: - creatinine is elevated; isidro on ckd - continue ivf - maintain euvolemia - replete electrolytes as needed - f/u with nephro recs Endo: - continue ISS medium - continue accuchecks ACHS Heme: - H/H is stable - Monitor H/H and transfuse as needed as per GI ID: - leukocytosis is downtrending - urine culture prelim is positive for ESBL Klebsiella and Yeast species - antibiotics as per ID - BCx x 2 prelim shows no growth x 48 hours - MRSA (nares) shows no growth - f/u ID recs PPX: protonix for GI; warfarin for Afib, while on heparin gtt bridge Dispo: Pt is medically stable and safe for transfer to Telemetry; PMD is aware and agrees with management Case reviewed and discussed with attending physician, Dr. Bright <Jonathan Bright - Last Filed: 02/07/18 14:34> CCU Objective - Vital Signs / Intake & Output Vital Signs (Last 4 hours): Vital Signs Temp Pulse Resp BP Pulse Ox 02/07/18 14:10 111 H 25 H 96 02/07/18 14:05 111 H 26 H 94/58 L 98 02/07/18 14:00 110 H 21 88/61 L 98 02/07/18 13:50 113 H 31 H 97 02/07/18 13:40 125 H 32 H 100 02/07/18 13:33 124 H 120/65 02/07/18 13:30 124 H 23 100 02/07/18 13:20 126 H 22 95 02/07/18 13:10 125 H 23 99 02/07/18 13:00 126 H 26 H 120/65 98 02/07/18 12:58 124 H 20 120/72 99 02/07/18 12:50 124 H 23 98 02/07/18 12:40 124 H 21 99 02/07/18 12:30 124 H 97 02/07/18 12:20 122 H 26 H 98 02/07/18 12:10 120 H 22 99 02/07/18 12:00 99.4 F 121 H 22 98 02/07/18 11:50 120 H 23 98 02/07/18 11:40 118 H 33 H 98 02/07/18 11:30 117 H 18 99 02/07/18 11:20 118 H 14 98 02/07/18 11:10 117 H 16 99 02/07/18 11:00 114 H 18 92/53 L 99 02/07/18 10:50 114 H 19 98 02/07/18 10:40 118 H 21 98 02/07/18 10:34 118 H 23 101/57 L 98 Intake and Output (Last 8hrs): Intake & Output 02/06/18 02/07/18 02/07/18 22:59 06:59 14:59 Intake Total 805 50 Output Total 300 Balance 505 50 Intake: IV 325 50 Right Chest 325 Oral 480 Output: Stool 300 - Medications Active Medications: Active Medications Generic Name Dose Route Start Last Admin Trade Name Freq PRN Reason Stop Dose Admin Aspirin 81 mg 02/05/18 10:00 02/07/18 09:47 Ecotrin PO 81 mg DAILY ANTHONY Administration Atorvastatin Calcium 10 mg 02/05/18 10:00 02/07/18 09:47 Lipitor PO 10 mg DAILY ANTHONY Administration Finasteride 5 mg 02/05/18 10:00 02/07/18 09:47 Proscar PO 5 mg DAILY ANTHONY Administration Furosemide 20 mg 02/05/18 18:00 02/07/18 09:48 Lasix IVP 20 mg BID ANTHONY Administration Milrinone Lactate/Dextrose 100 mls @ 2.585 mls/hr 02/04/18 22:18 02/06/18 06: 51 Primacor 20mg/100ml D5w IV 0.1 mcg/kg/min .Q24H PRN 2.068 mls/hr TITRATE PER MD ORDER Administration Protocol 0.125 MCG/KG/MIN Doxycycline Hyclate 100 mg/ 100 mls @ 100 mls/hr 02/05/18 10:00 02/07/18 09: 46 Sodium Chloride IVPB 100 mls/hr Q12 ANTHONY Administration Protocol Sodium Chloride 1,000 mls @ 80 mls/hr 02/04/18 23:25 02/04/18 23:45 Sodium Chloride 0.9% IV 80 mls/hr .[id number] ANTHONY Administration Meropenem 500 mg/ Sodium 50 mls @ 100 mls/hr 02/06/18 07:46 02/07/18 09:47 Chloride IVPB 02/14/18 10:01 100 mls/hr DAILY ANTHONY Administration Protocol Heparin Sodium/Sodium Chloride 25,000 units in 250 mls @ 11.975 mls/hr 05:24 02/07/18 11:34 Heparin 13065 Units/250ml 1/2 Normal Saline IV 20 units/kg/hr .[id number] PRN 11.975 mls/hr ADJUST RATE PER PROTOCOL Administration Protocol 20 UNITS/KG/HR Insulin Detemir 13 unit 02/05/18 22:00 Levemir SC HS ANTHONY Insulin Human Lispro 0 units 02/06/18 07:30 02/07/18 11:36 Humalog Med SC 3 unit ACHS ANTHONY Administration Protocol Oxycodone/Acetaminophen 1 tab 02/06/18 13:06 02/07/18 03:40 Percocet 5/325 Mg Tab PO 02/09/18 13:07 1 tab Q6H PRN Administration Pain, moderate (4-7) Pantoprazole Sodium 40 mg 02/07/18 06:00 02/07/18 05:44 Protonix Ec Tab PO 40 mg 0600 ANTHONY Administration Sodium Bicarbonate 650 mg 02/07/18 14:00 02/07/18 13:33 Sodium Bicarbonate Tab PO 650 mg TID ANTHONY Administration Verapamil HCl 40 mg 02/07/18 11:45 02/07/18 13:34 [place] Tab PO Not Given TID ANTHONY Verapamil HCl 2.5 mg 02/07/18 11:39 Verapamil Inj IVP Q6H PRN for heart rate >130 Warfarin Sodium 5 mg 02/07/18 10:15 02/07/18 11:15 Coumadin PO 5 mg DAILY ANTHONY Administration Protocol - Patient Studies Lab Studies: Microbiology Studies 02/05/18 01:30 MRSA Culture (Admit) - Final Nose MRSA NOT DETECTED Lab Studies 02/07/18 02/07/18 02/07/18 Range/Units 11:10 11:00 07:20 WBC (4.5-11.0) 10^3/ul RBC (3.5-6.1) 10^6/uL Hgb (14.0-18.0) g/dL Hct (42.0-52.0) % MCV (80.0-105.0) fl MCH (25.0-35.0) pg MCHC (31.0-37.0) g/dl RDW (11.5-14.5) % Plt Count (120.0-450.0) 10^3/uL MPV (7.0-11.0) fl Gran % (50.0-68.0) % Lymph % (Auto) (22.0-35.0) % [place] % (Auto) (1.0-6.0) % Eos % (Auto) (1.5-5.0) % Baso % (Auto) (0.0-3.0) % Gran # (1.4-6.5) Lymph # (Auto) (1.2-3.4) [place] # (Auto) (0.1-0.6) Eos # (Auto) (0.0-0.7) Baso # (Auto) (0.0-2.0) K/mm3 APTT 50.9 H (25.1-36.5) Seconds Sodium (132-148) mmol/L Potassium (3.6-5.0) mmol/L Chloride (98-107) mmol/L Carbon Dioxide (21-33) mmol/L Anion Gap (10-20) BUN (7-21) mg/dL Creatinine (0.8-1.5) mg/dl Est GFR ( Amer) Est GFR (Non-Af Amer) POC Glucose (mg/dL) 238 H 207 H (65-110) mg/dL Random Glucose (70-110) mg/dL Calcium (8.4-10.5) mg/dL Phosphorus (2.5-4.5) mg/dL Magnesium (1.7-2.2) mg/dL Total Bilirubin (0.2-1.3) mg/dL AST (17-59) U/L ALT (7-56) U/L Alkaline Phosphatase (38-126) U/L Total Protein (5.8-8.3) g/dL Albumin (3.0-4.8) g/dL Globulin gm/dL Albumin/Globulin Ratio (1.1-1.8) 02/07/18 02/07/18 02/07/18 Range/Units 04:15 04:15 04:15 WBC 15.7 H (4.5-11.0) 10^3/ul RBC 3.01 L (3.5-6.1) 10^6/uL Hgb 8.1 L (14.0-18.0) g/dL Hct 24.5 L (42.0-52.0) % MCV 81.4 (80.0-105.0) fl MCH 26.9 (25.0-35.0) pg MCHC 33.1 (31.0-37.0) g/dl RDW 18.6 H (11.5-14.5) % Plt Count 344 (120.0-450.0) 10^3/uL MPV 8.7 (7.0-11.0) fl Gran % 93.5 H (50.0-68.0) % Lymph % (Auto) 2.1 L (22.0-35.0) % [place] % (Auto) 4.2 (1.0-6.0) % Eos % (Auto) 0.1 L (1.5-5.0) % Baso % (Auto) 0.1 (0.0-3.0) % Gran # 14.65 H (1.4-6.5) Lymph # (Auto) 0.3 L (1.2-3.4) [place] # (Auto) 0.7 H (0.1-0.6) Eos # (Auto) 0.0 (0.0-0.7) Baso # (Auto) 0.01 (0.0-2.0) K/mm3 APTT 36.3 (25.1-36.5) Seconds Sodium 140 (132-148) mmol/L Potassium 5.0 (3.6-5.0) mmol/L Chloride 108 H (98-107) mmol/L Carbon Dioxide 17 L (21-33) mmol/L Anion Gap 21 H (10-20) BUN 121 H* (7-21) mg/dL Creatinine 7.1 H (0.8-1.5) mg/dl Est GFR ( Amer) 9 Est GFR (Non-Af Amer) 8 POC Glucose (mg/dL) (65-110) mg/dL Random Glucose 183 H (70-110) mg/dL Calcium 9.6 (8.4-10.5) mg/dL Phosphorus 3.9 (2.5-4.5) mg/dL Magnesium 2.5 H (1.7-2.2) mg/dL Total Bilirubin 0.3 (0.2-1.3) mg/dL AST 42 (17-59) U/L ALT 20 (7-56) U/L Alkaline Phosphatase 342 H (38-126) U/L Total Protein 6.1 (5.8-8.3) g/dL Albumin 2.8 L (3.0-4.8) g/dL Globulin 3.3 gm/dL Albumin/Globulin Ratio 0.8 L (1.1-1.8) 02/06/18 02/06/18 02/06/18 Range/Units 21:54 15:55 11:42 WBC (4.5-11.0) 10^3/ul RBC (3.5-6.1) 10^6/uL Hgb (14.0-18.0) g/dL Hct (42.0-52.0) % MCV (80.0-105.0) fl MCH (25.0-35.0) pg MCHC (31.0-37.0) g/dl RDW (11.5-14.5) % Plt Count (120.0-450.0) 10^3/uL MPV (7.0-11.0) fl Gran % (50.0-68.0) % Lymph % (Auto) (22.0-35.0) % [place] % (Auto) (1.0-6.0) % Eos % (Auto) (1.5-5.0) % Baso % (Auto) (0.0-3.0) % Gran # (1.4-6.5) Lymph # (Auto) (1.2-3.4) [place] # (Auto) (0.1-0.6) Eos # (Auto) (0.0-0.7) Baso # (Auto) (0.0-2.0) K/mm3 APTT (25.1-36.5) Seconds Sodium (132-148) mmol/L Potassium (3.6-5.0) mmol/L Chloride (98-107) mmol/L Carbon Dioxide (21-33) mmol/L Anion Gap (10-20) BUN (7-21) mg/dL Creatinine (0.8-1.5) mg/dl Est GFR ( Amer) Est GFR (Non-Af Amer) POC Glucose (mg/dL) 222 H 248 H 221 H (65-110) mg/dL Random Glucose (70-110) mg/dL Calcium (8.4-10.5) mg/dL Phosphorus (2.5-4.5) mg/dL Magnesium (1.7-2.2) mg/dL Total Bilirubin (0.2-1.3) mg/dL AST (17-59) U/L ALT (7-56) U/L Alkaline Phosphatase (38-126) U/L Total Protein (5.8-8.3) g/dL Albumin (3.0-4.8) g/dL Globulin gm/dL Albumin/Globulin Ratio (1.1-1.8) Laboratory Results - last 24 hr 02/06/18 02/06/18 02/06/18 11:42 15:55 21:54 WBC RBC Hgb Hct MCV MCH MCHC RDW Plt Count MPV Gran % Lymph % (Auto) [place] % (Auto) Eos % (Auto) Baso % (Auto) Gran # Lymph # (Auto) [place] # (Auto) Eos # (Auto) Baso # (Auto) APTT Sodium Potassium Chloride Carbon Dioxide Anion Gap BUN Creatinine Est GFR ( Amer) Est GFR (Non-Af Amer) POC Glucose (mg/dL) 221 H 248 H 222 H Random Glucose Calcium Phosphorus Magnesium Total Bilirubin AST ALT Alkaline Phosphatase Total Protein Albumin Globulin Albumin/Globulin Ratio 02/07/18 02/07/18 02/07/18 04:15 04:15 04:15 WBC 15.7 H RBC 3.01 L Hgb 8.1 L Hct 24.5 L MCV 81.4 MCH 26.9 MCHC 33.1 RDW 18.6 H Plt Count 344 MPV 8.7 Gran % 93.5 H Lymph % (Auto) 2.1 L [place] % (Auto) 4.2 Eos % (Auto) 0.1 L Baso % (Auto) 0.1 Gran # 14.65 H Lymph # (Auto) 0.3 L [place] # (Auto) 0.7 H Eos # (Auto) 0.0 Baso # (Auto) 0.01 APTT 36.3 Sodium 140 Potassium 5.0 Chloride 108 H Carbon Dioxide 17 L Anion Gap 21 H BUN 121 H* Creatinine 7.1 H Est GFR ( Amer) 9 Est GFR (Non-Af Amer) 8 POC Glucose (mg/dL) Random Glucose 183 H Calcium 9.6 Phosphorus 3.9 Magnesium 2.5 H Total Bilirubin 0.3 AST 42 ALT 20 Alkaline Phosphatase 342 H Total Protein 6.1 Albumin 2.8 L Globulin 3.3 Albumin/Globulin Ratio 0.8 L 02/07/18 02/07/18 02/07/18 07:20 11:00 11:10 WBC RBC Hgb Hct MCV MCH MCHC RDW Plt Count MPV Gran % Lymph % (Auto) [place] % (Auto) Eos % (Auto) Baso % (Auto) Gran # Lymph # (Auto) [place] # (Auto) Eos # (Auto) Baso # (Auto) APTT 50.9 H Sodium Potassium Chloride Carbon Dioxide Anion Gap BUN Creatinine Est GFR ( Amer) Est GFR (Non-Af Amer) POC Glucose (mg/dL) 207 H 238 H Random Glucose Calcium Phosphorus Magnesium Total Bilirubin AST ALT Alkaline Phosphatase Total Protein Albumin Globulin Albumin/Globulin Ratio Critical Care Progress Note - Nutrition Nutrition: Nutrition Category Date Time Status Dysphagia/Modified Consistency Diet [DIET] Diets 02/05/18 Dinner Ordered Attending/Attestation - Attestation I have personally seen and examined this patient.: Yes I have fully participated in the care of the patient.: Yes I have reviewed all pertinent clinical information: Yes Notes (Text): 02/07/18 14:30 The patient was seen and examined at the bedside. Patient care was discussed with resident Medical records, lab studies were reviewed and management issues were discussed and formulated. Last 24H events reviewed. Agree with above treatment plans as outlined in ' note with addition of the following: Septic shock \\ Acute on chronic systolic CHF \\ PNA \\ UTI \\ ESRD on HD \\ Anemia \\ CAD \\ ho Metastatic Lung CA \\ DM 2\\ Encephalopathy \\ Afib with RVR -hemodynamic monitoring to maintain MAP>65; pt has severely depressed EF 15-20% -continue milrinone; continue asa and statin; cardiology team f\\u -o2 supplementation to maintain Spo2>90 Pao2>60; currently comfortable on NC -continue broad spectrum Abx as per ID team and f\\u cultures -f\\u Bun\\Cr and U\\o; renal team f\\u appreciated -PO diet and aspiration precautions -GI team f\\u -continue heparin bridge and start coumadin today and monitor PTT \\ INR , H\\H and for bleeding -encephalopathy likely metabolic related to uremia ; consider neuro eval -ISS and BGM monitoring -Heme\\onc f\\u -DVT \\ PUD prophylaxis -Palliation team following. Pt's family is not decided regarding how aggressive they want to be with his care. [facility] time 30
[2018-02-07] MEDS ORDERED: Digoxin 500 mcg/2ml (0.5 mg/2ml) Inj IVP ONE (11:41)
[2018-02-07 12:08] VITALS: PULSE 122
--- NOTE | 2018-02-07 13:25 | PN ---
DATE: 02/07/2018 REASON FOR CONSULTATION: Coronary artery disease, cardiomyopathy, admitted with hypoglycemia, hypotension, possible pneumonia, worsening renal insufficiency. SUBJECTIVE: The patient denies any chest pain, shortness of breath, or any palpitations. He complained of mild lower abdominal pain. OBJECTIVE: GENERAL: Not in apparent distress. VITAL SIGNS: As follows, temperature afebrile, heart rate 125, blood pressure 120/66. HEENT: PERRLA. Extraocular muscles intact. NECK: Supple. No carotid bruit or thyromegaly. CHEST: Clear to auscultation. HEART: S1 and S2 regular. ABDOMEN: Soft. EXTREMITIES: Clubbing and cyanosis negative. LABORATORY DATA: Telemetry monitoring high, AFib at the rate of 120. IMPRESSION: A 72-year-old male with past medical history significant for coronary artery disease, status post percutaneous transluminal coronary angioplasty to left anterior descending artery, ischemic cardiomyopathy, status post automatic implantable cardioverter-defibrillator, history of endovascular abdominal aortic aneurysm repair, history of lung cancer, status post radiation, history of diverticular colonic disease, status post colostomy, history of gastrointestinal bleed, history of anticoagulation on Coumadin, admitted with hypoglycemia, hypotension, paroxysmal atrial fibrillation, now the patient went into atrial fibrillation with rapid ventricular rate. RECOMMENDATIONS: Continue 2.5 verapamil. Continue digoxin one more dose. The patient is on heparin as a bridge. We will start low-dose of Coumadin from today. Monitor H and H. If remain stable, continue Coumadin. Continue p.o. verapamil and we will follow. Overall, the patient's condition is critical. Long-term prognosis is guarded. We will follow with you. We will give one more dose of digoxin. Thank you, Dr. Palacios, for providing us the opportunity in taking care of the patient, [place]. Arabella Mathews MD
--- NOTE | 2018-02-07 13:41 | PN ---
DATE: 02/07/2018 SUBJECTIVE: The patient is currently seen in CCU, bed 1. He remains critically ill. He is being treated for his urinary tract infection and multi-lobe pneumonia. He remains on IV antibiotic therapy along with Primacor. His blood pressure remains in a borderline low range. The patient's is asking me about the pros and cons of doing dialysis. MEDICATIONS: Medication list reviewed. The patient is currently on verapamil, Coumadin, doxycycline, aspirin, heparin, insulin, Lasix, Lipitor, meropenem, Percocet p.r.n., Primacor drip, Proscar, Protonix, normal saline has been discontinued, and p.r.n. IV verapamil. PHYSICAL EXAMINATION: INTAKE AND OUTPUT: Intake is 805, output is 300. VITAL SIGNS: Present blood pressure is 103/67 with a heart rate of 119. The patient's temperature is 97.8 with a respiratory rate of 21. HEENT: Shows him to be normocephalic, atraumatic. Conjunctivae are pink. Sclerae are nonicteric. NECK: Supple. No neck vein distention. CHEST: Scattered rales and rhonchi. No wheezing. Positive port, right chest wall. CARDIOVASCULAR: Shows a regular rate and rhythm with MR/TR/AI. No S3. No S4. No rub. ABDOMEN: Soft. Bowel sounds normal. Positive right-sided colostomy. No rebound or guarding. EXTREMITIES: Show no lower extremity cyanosis, clubbing, or edema with diminished lower extremity pulses bilaterally. LABORATORY DATA AND IMAGING: Admitting chest and abdominal CT scan shows multi-lobe pneumonia. Kidneys are unremarkable. Labs today: CBC: White blood cell count remains elevated at 15.7, hemoglobin 8.1 with a platelet count of 344,000. Coags: PTT of 50.9. Last INR was 1.48. Chemistries today show sodium 140, potassium 5, chloride elevated at 108 with a CO2 low at 17. Anion gap is 21. BUN stable at 121. Creatinine slightly higher at 7.1. Glucose is 183. Calcium and phosphorus levels are normal. Magnesium level is 2.5. Alkaline phosphatase elevated at 342. Liver enzymes are normal. Albumin level is low at 2.8. Urines are positive for white blood cells and red blood cells and protein. Stool occult blood is positive. Microbiology: Blood cultures negative at 48 hours. Urine culture positive for Klebsiella and yeast. Blood bank, the patient has been transfused 1 unit of packed red blood cells for hemoglobin of 8.1. ASSESSMENT: 1. Acute renal failure superimposed on chronic kidney disease stage 4/5. The patient is felt to be a very poor dialysis candidate because of his severe cardiomyopathy and very poor long-term prognosis given his lung cancer. I have discussed with the patient's explaining to her that I do not feel that he is a good candidate for any type of prolonged dialysis and that short-term dialysis will likely not make much of a difference in terms of the overall outcome. 2. Status post septic shock, hypotension, tachycardia with metabolic acidosis. The patient has both a multi-lobe pneumonia and a Klebsiella and yeast urinary tract infection. He is on appropriate antibiotic therapy. 3. History of severe anemia. The patient received 1 unit of packed red blood cells. He may start erythropoietin to help maintain his hemoglobin in the 9-10 range. The anemia is secondary to cancer and worsening chronic kidney disease. 4. History of severe cardiomyopathy. Ejection fraction has been 15%. The patient has valvular heart disease, mitral regurgitation/tricuspid regurgitation/aortic insufficiency. He is status post permanent pacemaker and automatic implantable cardioverter defibrillator. The patient is on home milrinone therapy to prevent congestive heart failure and low blood pressure. 5. History of sho-legdmua-tbmwdlexe diabetes mellitus, blood pressure is controlled on sliding scale insulin. 6. Past history of benign prostatic hypertrophy. 7. History of hyperlipidemia. 8. Status post partial bowel obstruction with colostomy, currently stable. 9. History of metastatic lung cancer. PLAN: 1. Discussed with the patient's in detail and I will discuss with the state comptroller and the house staff. He would make a very poor dialysis candidate. Apparently, the possibility of dialysis was brought up to the , but I will definitively speak with the ICU staff. He would not make a good candidate for any type of prolonged dialysis and short-term dialysis would likely not alter the long-term prognosis. 2. Continue IV antibiotic therapy for both treatment of his urinary tract infection and pneumonia. 3. Continue Primacor therapy. 4. Close Cardiology followup. 5. Discussed with ICU nurse and will discuss with ICU staff. 6. Agree with transfusing the patient to keep hemoglobin in the 9-10 range and erythropoietin may be started on an as-needed basis. 7. The patient may start oral sodium bicarbonate supplements. 8. Phosphorus level is presently normal, so he does not require binder therapy. 9. Continue to monitor the patient closely in the CCU until hemodynamic profile stabilizes. Greater than 35 minutes spent in the care of this critically ill patient. Mio Stoddard MD
[2018-02-08 05:45] LABS: EOS % 0.4 % (1.5-5.0); GRAN # 8.33 (1.4-6.5); GRAN % 84.2 % (50.0-68.0); HEMOGLOBIN 7.6 g/dL (14.0-18.0); LYMPH # 0.4 (1.2-3.4); LYMPH % 3.8 % (22.0-35.0); MEAN CELL VOLUME 82.1 fl (80.0-105.0); MEAN CORPUSCULAR HEMOGLOBIN 26.1 pg (25.0-35.0); MEAN CORPUSCULAR HGB CONC 31.8 g/dl (31.0-37.0); MONO # 1.2 (0.1-0.6); MONO % 11.6 % (1.0-6.0); RBC 2.91 10^6/uL (3.5-6.1); RED CELL DISTRIBUTION WIDTH 18.8 % (11.5-14.5)
[2018-02-08 05:48] LABS: WHITE BLOOD COUNT 9.9 10^3/ul (4.5-11.0)
[2018-02-08 06:16] LABS: ALB/GLOB RATIO 0.8 (1.1-1.8); ALBUMIN 2.7 g/dL (3.0-4.8); CALCIUM 9.8 mg/dL (8.4-10.5)
[2018-02-08] MEDS: Pantoprazole 40 mg EC Tab PO SCH (06:53)
[2018-02-08 10:18] LABS: INR 1.75 (0.93-1.08); PROTHROMBIN TIME 20.4 SECONDS (9.4-12.5)
[2018-02-08] MEDS: Insulin Lispro (humaLOG) MEDIUM Coverage SC SCH ×4 (10:29→22:38)
[2018-02-08] MEDS: Meropenem 500 MG in Sodium Chloride 0.9% 50 ML IVPB SCH (10:30)
[2018-02-08] MEDS: Milrinone 20mg/100ml D5W 100 ML IV PRN (10:47)
[2018-02-08] MEDS: Heparin25000 units/250ml 1/2NS 25,000 UNITS/250 ML BAG IV PRN (10:48)
--- NOTE | 2018-02-08 11:45 | PN ---
DATE: 02/08/2018 REASON FOR DICTATION: Coronary artery disease, cardiomyopathy, admitted with hypotension, hypoglycemia, AFib, rapid ventricular rate, worsening renal insufficiency. SUBJECTIVE: The patient denies any chest pain, shortness of breath, or any palpitations. . OBJECTIVE: GENERAL: Not in apparent distress, lying flat on the bed, not sure how much he understands, altered mental status. VITAL SIGNS: Temperature 100, heart rate 116, and blood pressure 132/80. HEENT: PERRLA, intact. NECK: Supple. No carotid bruit or thyromegaly. CHEST: Clear to auscultation. HEART: S1 and S2, regular. ABDOMEN: Soft. EXTREMITIES: Clubbing and cyanosis negative. LABORATORY DATA: Blood workup: WBC 9.8, hemoglobin 7.7, hematocrit 23.9, and platelet count 353. Chemistry shows sodium 135, potassium 5.2, chloride 107, carbon dioxide 16, anion gap of 21. BUN 127 and creatinine 7.1. IMPRESSION: History of paroxysmal atrial fibrillation; hypertension; hyperlipidemia; coronary artery disease, status post percutaneous transluminal coronary angioplasty to left anterior descending; ischemic cardiomyopathy, status post automatic implantable cardioverter-defibrillator, on Primacor; acute kidney injury; chronic renal insufficiency; abdominal aortic aneurysm; endovascular repair; hypertension; diverticular colonic disease, status post colostomy. Overall, the patient's condition is critical, long-term prognosis is extremely guarded. Continue heparin. Monitor H and H. Continue gentle diuretics as blood pressure is tolerated. Continue Coumadin. Follow up PT/INR. We will follow with you. Thank you Dr. Palacios for providing us the opportunity in taking care of the patient, [place]. Arabella Mathews MD
--- NOTE | 2018-02-08 13:39 | CP.PCM.CON ---
History of Present Illness - History of Present Illness History of Present Illness: Marianela Haynes DO, PGY-2: Hematology and Oncology Consult Note for Dr. Samson 72-year-old male with past medical history of stroke, adenocarcinoma of the lung with metastasis to the liver, atrial fibrillation on Coumadin, CKD, CHF with an EF of 15, history of endocarditis, abdominal aortic aneurysm and repair , status post partial colon resection for diverticulitis with colostomy bag who presents to the emergency department with 3 days of worsening lethagy and complaints of hyperglycemia and hypotension. The patient was found to have acute on chronic kidney failure, a multifocal pneumonia, admitted to ICU and kept on vasopressors and Inotropic support for his hypotension. He was also found to be anemic and given his history of bleeding from the colon His Coumadin and aspirin were held and he was given one unit of blood. He remains in the ICU in critical condition and is being bridged back onto warfarin with a heparin drip. Palliative care, Nephrology, Cardiology, and GI were consulted. The patient apparently has quaker beliefs that preclude any idea of palliative care. Hematology and Oncology were consulted given the patient has lung cancer with metastases and anemia. His lung cancer was treated with radiation in the past. We informed the family that we will do what we can for his anemia. ROS: A 12pt ROS was negative except as above PmHx: As stated in HPI PsHx: Multiple cardiac procedures, colostomy Allergies: NKA FHx: Neg for colon cancer SHx: Denies current tobacco, etoh or drugs Review of Systems - Review of Systems All systems: reviewed and no additional remarkable complaints except (as per HPI ) Past Patient History - Infectious Disease Hx of Infectious Diseases: None - Tetanus Immunizations Tetanus Immunization: Unknown - Past Medical History & Family History Past Medical History?: Yes - Past Social History Smoking Status: Never Smoked - CARDIAC Hx Cardiac Disorders: Yes Hx Congestive Heart Failure: Yes - PULMONARY Hx Respiratory Disorders: Yes (LUNG CA-RADIATION) - NEUROLOGICAL HX Cerebrovascular Accident: Yes - HEENT Hx HEENT Problems: Yes - RENAL Hx Chronic Kidney Disease: Yes Hx Renal Failure: Yes - ENDOCRINE/METABOLIC Hx Diabetes Mellitus Type 2: Yes - HEMATOLOGICAL/ONCOLOGICAL Hx Cancer: Yes (lung) - INTEGUMENTARY Other/Comment: multiple moles around neck, red raised b/l groin rash , multiple skin discolorations to both arms. PORT TO RIGHT CHEST WALL 3-18 - MUSCULOSKELETAL/RHEUMATOLOGICAL Hx Musculoskeletal Disorders: Yes Hx Falls: Yes - GASTROINTESTINAL Hx Colostomy: Yes - GENITOURINARY/GYNECOLOGICAL Hx Prostate Problems: Yes (BPH WITH PROSTATE SX) Other/Comment: #16 2wf - PSYCHIATRIC Hx Depression: Yes Hx Substance Use: No - SURGICAL HISTORY Hx Coronary Stent: Yes (x3) Other/Comment: port rt upper chest - ANESTHESIA Hx Anesthesia: Yes Hx Anesthesia Reactions: No Hx Malignant Hyperthermia: No Meds Allergies/Adverse Reactions: Allergies Allergy/AdvReac Type Severity Reaction Status Date / Time No Known Allergies Allergy Verified 10/03/17 12:09 - Medications Medications: Current Medications Acetylcysteine (Acetylcysteine 20%) 3 ml INH Q8 [facility] Aspirin (Ecotrin) 81 mg PO DAILY [facility] Last Admin: 02/08/18 10:28 Dose: 81 mg Atorvastatin Calcium (Lipitor) 10 mg PO DAILY [facility] Last Admin: 02/08/18 10:28 Dose: 10 mg Carvedilol (Coreg) 3.125 mg PO BID [facility] Last Admin: 02/08/18 10:29 Dose: 3.125 mg Finasteride (Proscar) 5 mg PO DAILY [facility] Last Admin: 02/08/18 10:28 Dose: 5 mg Furosemide (Lasix) 20 mg IVP BID [facility] Last Admin: 02/08/18 10:29 Dose: 20 mg Milrinone Lactate/Dextrose (Primacor 20mg/100ml D5w) 100 mls @ 2.585 mls/hr IV .Q24H PRN; Protocol; 0.125 MCG/KG/MIN PRN Reason: TITRATE PER MD ORDER Last Admin: 02/08/18 10:47 Dose: 0.1 mcg/kg/min, 2.068 mls/hr Sodium Chloride (Sodium Chloride 0.9%) 1,000 mls @ 80 mls/hr IV .[id number] [facility] Last Admin: 02/04/18 23:45 Dose: 80 mls/hr Meropenem 500 mg/ Sodium (Chloride) 50 mls @ 100 mls/hr IVPB DAILY [facility] PRN Reason: Protocol Stop: 02/14/18 10:01 Last Admin: 02/08/18 10:30 Dose: 100 mls/hr Heparin Sodium/Sodium Chloride (Heparin 85200 Units/250ml 1/2 Normal Saline) 25 ,000 units in 250 mls @ 11.975 mls/hr IV .[id number] PRN; Protocol; 20 UNITS/KG/HR PRN Reason: ADJUST RATE PER PROTOCOL Last Admin: 02/08/18 10:48 Dose: 22 units/kg/hr, 13.172 mls/hr Insulin Detemir (Levemir) 13 unit SC HS [facility] Insulin Human Lispro (Humalog Med) 0 units SC ACHS [facility] PRN Reason: Protocol Last Admin: 02/08/18 12:28 Dose: 5 unit Ipratropium [place] (Atrovent) 0.5 mg IH TIDRESP ANTHONY Levalbuterol HCl (Xopenex) 0.63 mg IH TIDRESP ANTHONY Oxycodone/Acetaminophen (Percocet 5/325 Mg Tab) 1 tab PO Q6H PRN PRN Reason: Pain, moderate (4-7) Stop: 02/09/18 13:07 Last Admin: 02/07/18 03:40 Dose: 1 tab Pantoprazole Sodium (Protonix Ec Tab) 40 mg PO 0600 [facility] Last Admin: 02/08/18 06:53 Dose: 40 mg Sodium Bicarbonate (Sodium Bicarbonate Tab) 650 mg PO TID [facility] Last Admin: 02/08/18 10:29 Dose: 650 mg Verapamil HCl (Calan Tab) 40 mg PO TID [facility] Last Admin: 02/08/18 10:28 Dose: 40 mg Verapamil HCl (Verapamil Inj) 2.5 mg IVP Q6H PRN PRN Reason: for heart rate >130 Warfarin Sodium (Coumadin) 5 mg PO DAILY [facility] PRN Reason: Protocol Last Admin: 02/08/18 10:28 Dose: 5 mg Physical Exam - Constitutional Appears: Confused, Chronically Ill - Eye Exam Eye Exam: Normal appearance - Respiratory Exam Respiratory Exam: Decreased Breath Sounds - Cardiovascular Exam Cardiovascular Exam: Tachycardia - GI/Abdominal Exam Additional comments: colostomy bag present - Extremities Exam Extremities exam: Negative for: calf tenderness Additional comments: pedal edema 2/4 - Neurological Exam Neurological exam: Altered - Psychiatric Exam Psychiatric exam: Flat Affect - Skin Skin Exam: Intact, Normal Color Results - Vital Signs Recent Vital Signs: Last Vital Signs Temp 99.2 F 02/08/18 08:00 Pulse 118 H 02/08/18 10:29 Resp 23 02/08/18 08:10 BP 124/76 07/25/18 10:29 Pulse Ox 100 02/08/18 08:10 - Labs Result Diagrams: 02/08/18 05:00 02/08/18 05:00 Labs: Laboratory Results - last 24 hr 02/07/18 02/07/18 02/07/18 16:04 16:59 22:04 WBC RBC Hgb Hct MCV MCH MCHC RDW Plt Count MPV Gran % Lymph % (Auto) [place] % (Auto) Eos % (Auto) Baso % (Auto) Gran # Lymph # (Auto) [place] # (Auto) Eos # (Auto) Baso # (Auto) PT INR APTT 48.5 H Sodium Potassium Chloride Carbon Dioxide Anion Gap BUN Creatinine Est GFR ( Amer) Est GFR (Non-Af Amer) POC Glucose (mg/dL) 233 H 246 H Random Glucose Calcium Phosphorus Magnesium Total Bilirubin AST ALT Alkaline Phosphatase Total Protein Albumin Globulin Albumin/Globulin Ratio 02/08/18 02/08/18 02/08/18 01:35 05:00 05:00 WBC 9.9 D RBC 2.91 L Hgb 7.6 L Hct 23.9 L MCV 82.1 MCH 26.1 MCHC 31.8 RDW 18.8 H Plt Count 353 MPV 9.0 Gran % 84.2 H Lymph % (Auto) 3.8 L [place] % (Auto) 11.6 H Eos % (Auto) 0.4 L Baso % (Auto) 0.0 Gran # 8.33 H Lymph # (Auto) 0.4 L [place] # (Auto) 1.2 H Eos # (Auto) 0.0 Baso # (Auto) 0.00 PT INR APTT 51.4 H Sodium 139 Potassium 5.1 H Chloride 107 Carbon Dioxide 16 L Anion Gap 21 H BUN 127 H* Creatinine 7.1 H Est GFR ( Amer) 9 Est GFR (Non-Af Amer) 8 POC Glucose (mg/dL) Random Glucose 146 H Calcium 9.8 Phosphorus 3.3 Magnesium 2.6 H Total Bilirubin 0.4 AST 40 ALT 29 Alkaline Phosphatase 382 H Total Protein 6.1 Albumin 2.7 L Globulin 3.4 Albumin/Globulin Ratio 0.8 L 02/08/18 02/08/18 02/08/18 07:42 07:50 07:50 WBC RBC Hgb Hct MCV MCH MCHC RDW Plt Count MPV Gran % Lymph % (Auto) [place] % (Auto) Eos % (Auto) Baso % (Auto) Gran # Lymph # (Auto) [place] # (Auto) Eos # (Auto) Baso # (Auto) PT 20.4 H INR 1.75 H APTT 63.6 H Sodium Potassium Chloride Carbon Dioxide Anion Gap BUN Creatinine Est GFR ( Amer) Est GFR (Non-Af Amer) POC Glucose (mg/dL) 204 H Random Glucose Calcium Phosphorus Magnesium Total Bilirubin AST ALT Alkaline Phosphatase Total Protein Albumin Globulin Albumin/Globulin Ratio 02/08/18 11:50 WBC RBC Hgb Hct MCV MCH MCHC RDW Plt Count MPV Gran % Lymph % (Auto) [place] % (Auto) Eos % (Auto) Baso % (Auto) Gran # Lymph # (Auto) [place] # (Auto) Eos # (Auto) Baso # (Auto) PT INR APTT Sodium Potassium Chloride Carbon Dioxide Anion Gap BUN Creatinine Est GFR ( Amer) Est GFR (Non-Af Amer) POC Glucose (mg/dL) 259 H Random Glucose Calcium Phosphorus Magnesium Total Bilirubin AST ALT Alkaline Phosphatase Total Protein Albumin Globulin Albumin/Globulin Ratio Assessment & Plan - Assessment and Plan (Free Text) Assessment: 72-year-old male with past medical history of stroke, adenocarcinoma of the lung with metastasis to the liver, atrial fibrillation on Coumadin, CKD, CHF with an EF of 15, history of endocarditis, abdominal aortic aneurysm and repair , status post partial colon resection for diverticulitis with colostomy bag who presents to the emergency department with 3 days of worsening lethargy and complaints of hyperglycemia and hypotension. We will order an iron panel and consider transfusion or Erythropoeitin Stimulating Agents as needed. We will continue to treat aggressively with the PMD and the other consultants. Case was reviewed and discussed with the attending physician, Dr. Samson - Date & Time Date: 02/08/18 Time: 15:11
--- NOTE | 2018-02-08 14:28 | PN ---
DATE: 02/07/2018 SUBJECTIVE: The patient in ICU. The patient is lying in the bed, on IV milrinone, IV antibiotics. Respiratory mercedes, no distress. His heart rate is still tachycardic, 120s to 130s. The patient on heparin drip. The patient is generally weak. Seems a little bit lethargic, but no respiratory distress and no chest pain. is next to the bed. All questions were answered to her. The patient otherwise stable. PHYSICAL EXAMINATION: VITAL SIGNS: His heart rate runs 120s to 130s, blood pressure is okay 133/71, respirations 22, and saturating 97% on 2 L nasal cannula. HEAD AND NECK: Normal. No JVD. No thyromegaly. CHEST: There is few rhonchi on both sides, but most of the chest is otherwise clear. CARDIAC: First and second seconds normal. Systolic murmur. ABDOMEN: Soft. Colostomy bag. EXTREMITIES: No edema. NEUROLOGIC: The patient is bedridden, move upper extremity, he responds to commands and to calling his name. Slowly respond to questions, but stable. LABORATORY DATA: On 02/07/2018; his white count is 15.7, hemoglobin 8.1, hematocrit 24.5, and platelets 344. Chemistry here shows sodium 140, potassium 5, chloride 108, bicarb 17. BUN 121, creatinine 7.1. Blood sugar 183. Phosphorus, magnesium normal. Total bilirubin 0.3. The patient has normal AST, normal ALT, alk phos is 342. His albumin is low at 2.8. The patient also had a urine culture which shows Gram-negative Klebsiella. Otherwise, negative blood culture x2. IMPRESSION AND PLAN: 1. Sepsis due to urinary tract infection, Klebsiella pneumonia. Continue current IV antibiotics. The patient is getting meropenem IV 500 mg once every day. We will continue to follow up with Infectious Disease consult. Continue current antibiotics. 2. Supraventricular tachycardia and paroxysmal atrial fibrillations with rapid heart rate. We will continue verapamil 400 mg t.i.d. and we also getting verapamil 2.5 mg IV every 6 hours as needed to control his heart rate. The patient also getting Coumadin for atrial fibrillation, anticoagulants, and monitor his hemoglobin. We will add Coreg to control his heart rate. We will monitor his blood pressure. 3. History of ischemic cardiomyopathy, ejection fraction 25%. The patient is currently on Lasix 20 IV b.i.d. Monitor fluid status, pressure level. We will continue to monitor that with the manager critical care unit. The patient is on IV milrinone to increase his cardiac output. 4. Diabetes. Continue insulin coverage plus Levemir 60 units a day. 5. Chronic back pain, arthritis. Continue Percocet p.r.n. 5/325 every 6 hours. 6. Discussed with the family, the patient is a full code; however, discussed with family, no dialysis because of poor general condition, poor heart function, and he could not maintain it. 7. Acute worsening of his chronic renal failure stage IV. Continue supportive care. He is making urine. He is on Lasix. We will monitor his condition slowly. Continue current therapy. Follow up clinically. Dexter Palacios MD
--- NOTE | 2018-02-08 15:51 | CON ---
DATE: 02/08/2018 PULMONARY CONSULT REFERRING PHYSICIAN: Dexter Palacios MD. REASON FOR CONSULT: Chronic lung disease, lung cancer with metastatic disease, cardiomyopathy, renal failure. HISTORY OF PRESENT ILLNESS: This is a 72-year-old gentleman with severe cardiomyopathy, inotrope and milrinone dependent, metastatic lung cancer to the liver, renal failure, diabetes, anemia, history of colectomy, colostomy, who is in the intensive care unit with multiorgan dysfunction, also has a multilobe pneumonia, being treated with antibiotics, on supplemental oxygen. Has some cough. No hemoptysis. No hematemesis. No hematuria. No diarrhea reported. PAST MEDICAL HISTORY: As per history of present illness. FAMILY HISTORY: No significant cardiopulmonary disease reported. SOCIAL HISTORY: Nonsmoker, nondrinker. ALLERGIES: NONE KNOWN. MEDICATIONS: He is on verapamil 40 mg three times a day, Coreg 3.125 mg twice a day, Coumadin 5 mg daily, Ecotrin 81 mg daily, also on IV heparin, Lasix 20 mg IV twice a day, Levemir 30 units subcu at bedtime, Lipitor 10 mg daily, meropenem 500 mg daily, Percocet 5/325 one tab every 6 hours p.r.n., Primacor IV drip, Proscar 5 mg daily, Protonix 40 mg daily, sodium bicarbonate three times a day, IV fluid normal saline 80 mL/hour, also getting p.r.n. IV verapamil. REVIEW OF SYSTEMS: Lethargic, sleepy, arousable. is at bedside. No hemoptysis. Has some cough, sputum production. No chest pain. No abdominal pain. No melena. No leg swelling. PHYSICAL EXAMINATION: GENERAL: Lethargic, lying in the bed. VITAL SIGNS: Afebrile, temperature is 98, heart rate is 118, respiratory rate is 22, blood pressure 130/74, pulse ox 99%. HEENT: Moist mucous membrane. Crowded airway. NECK: Supple. No JVD. LUNGS: Have poor effort. Scattered rhonchi. HEART: S1 and S2, tachycardic. ABDOMEN: Soft, nontender. Colostomy bag looks okay. EXTREMITIES: There is no edema. NEUROLOGICAL: Lethargic, arousable. Does not follow much commands. LABORATORY DATA: Shows hemoglobin 7.6, hematocrit 23.9, WBC 9.9, platelet is 353. INR 1.75, PTT 64. Sodium 139, potassium 4.1, chloride 107, bicarbonate 216, BUN 127, creatinine 7.1, glucose 146, calcium 9.8, phosphorus 3.3, magnesium 2.6, total bili 0.4, AST 40, ALT 29, alk phos is 382, albumin is 3.27. Urinalysis on 02/04/2018 shows wbc 25-30. Stool occult blood is positive. Microbiology: Blood culture is negative. Urine culture has Klebsiella pneumoniae. There is some yeast. IMPRESSION AND PLAN: Multiorgan failure, chronic obstructive lung disease, metastatic lung cancer, cardiomyopathy, milrinone dependent, history of hemicolectomy, colostomy, acute on chronic renal failure, aspiration pneumonia, urinary tract infection, oropharyngeal dysphagia. Case discussed with Dr. Palacios yesterday. Pulmonary point of view, we will continue antibiotics, keep head at 45 degrees. Aspiration precaution. May add Xopenex and Atrovent with Pulmicort bronchodilators. Overall poor prognosis. Pressure ulcer precaution. Thank you and we will follow with you. Arabella Alva MD
[2018-02-08] MEDS: Acetylcysteine 20% Inhal Soln (4ml) INH SCH ×2 (16:14→19:31)
[2018-02-08] MEDS: Ipratropium 0.02% Inhal Soln (0.5 mg/2.5 ml) UD IH SCH ×2 (16:15→19:33)
[2018-02-08] MEDS: Levalbuterol 0.63 MG/3 ML Inhal Soln UD IH SCH ×2 (16:15→19:33)
--- NOTE | 2018-02-08 17:16 | PN ---
DATE: 02/08/2018 SUBJECTIVE: The patient is seen in the ICU. He is lying in bed. is at bedside. He appears more awake and alert today. PHYSICAL EXAMINATION: GENERAL: Elderly male, lying in bed. VITAL SIGNS: Blood pressure 120/78, heart rate 100, respiratory rate 22, temperature 99.2, T-max is 99.4. HEENT: Normocephalic, atraumatic, positive pallor. NECK: Supple, no JVD. LUNGS: Bilateral equal air entry, bilateral coarse breath sounds. CARDIAC: S1 and S2, regular rate and rhythm, no murmur, no rub. ABDOMEN: Soft, nondistended, nontender, bowel sounds present, positive colostomy. EXTREMITIES: No lower extremity edema. INTAKE AND OUTPUT: 356/1075. LABORATORY DATA: WBC 9.9, hemoglobin 7.6, hematocrit 24, platelets 353. Sodium 139, potassium 5.1, chloride 107, CO2 of 16, BUN 127, creatinine 7.1, glucose 146, calcium 9.8, phosphorus 3.3, magnesium 2.6, ALT 29, AST 40, albumin 2.7. Stool occults positive. CURRENT MEDICATIONS: Coreg 3.125 b.i.d., Coumadin 5, Ecotrin, heparin 22 units/kg/hour, insulin, Lasix 20 mg IV b.i.d., Lipitor, Merrem, milrinone, Proscar, Protonix. ASSESSMENT AND PLAN: 1. Acute kidney injury superimposed on chronic kidney disease stage 4/5. 2. Septic shock, hypotension, multilobar pneumonia, Klebsiella and urine yeast. 3. Severe anemia. 4. Severe cardiomyopathy, decreased ejection fraction of 15%, on home milrinone therapy. 5. Luo-fkllnig-yxeizgqir diabetes mellitus. 6. History of lung cancer with metastasis. 7. History of partial bowel obstruction with colostomy. PLAN: 1. Long discussion with the patient's and another family member, the patient is not a candidate for any kind of renal replacement therapy, strongly recommend comfort care only. 2. Continue antibiotics for multiple infections. 3. Dose all antibiotics for creatinine clearance less than 10. 4. Continue Primacor as per Cardiology. 5. Palliative Care consult. Kaylen Crump MD [facility] # [id number]
--- NOTE | 2018-02-08 20:27 | PN ---
DATE: 02/07/2018 SUBJECTIVE: The patient was seen early yesterday morning in the ICU. No fevers or chills. PHYSICAL EXAMINATION: VITAL SIGNS: Temperature is 98, blood pressure is 112/70, respirations 16. HEENT: Unremarkable. NECK: Supple. LUNGS: Decreased breath sounds. HEART: Normal S1, S2. ABDOMEN: Soft, nontender. LABORATORY EXAMINATION: Reviewed. Yesterday's white count of 15,700. Chemistries are noted. Microbiology is reviewed. ASSESSMENT AND PLAN: A 72-year-old male seen yesterday on 02/07/2018, with severe sepsis, acute on chronic renal failure, multifocal healthcare-associated pneumonia, and urinary tract infection with patient with congestive heart failure, on meropenem and doxycycline, day #3; with further workup in progress. We will follow closely with you. Walt Conner MD
--- NOTE | 2018-02-08 23:16 | PN ---
DATE: 02/08/2018 LOCATION: The patient was seen early this morning in 129, bed 1. SUBJECTIVE: The patient is in bed, in no acute distress, nontoxic. Uneventful night. PHYSICAL EXAMINATION: VITAL SIGNS: Temperature of 99, blood pressure is 100/60, respiratory rate of 18, heart rate of 88. HEENT: Unremarkable. NECK: Supple. LUNGS: Have decreased breath sounds. HEART: Normal S1, S2. ABDOMEN: Soft, nontender. LABORATORY DATA: Reveals a white count of 9.9, hemoglobin of 7. Chemistries are noted. Microbiology reveals Klebsiella and yeast. ASSESSMENT AND PLAN: This is a 72-year-old male who was seen earlier today in ICU on 02/08/2018 with severe sepsis, xhbbi-ar-reuopvl renal failure, healthcare-associated pneumonia with Klebsiella extended-spectrum beta-lactamase in the urine with a negative methicillin-resistant Staphylococcus aureus in nares. Currently, we will discontinue the doxycycline and complete the treatment with meropenem, day #3. the patient's procalcitonin of 23, although renal function is compromised. We will follow with you. Walt Conner MD
[2018-02-09] MEDS: Pantoprazole 40 mg EC Tab PO SCH (05:56)
[2018-02-09 06:05] LABS: BASO # 0.01 K/mm3 (0.0-2.0); BASO % 0.1 % (0.0-3.0); EOS # 0.1 (0.0-0.7); EOS % 0.8 % (1.5-5.0); GRAN # 7.24 (1.4-6.5); GRAN % 78.3 % (50.0-68.0); LYMPH # 0.7 (1.2-3.4); LYMPH % 7.7 % (22.0-35.0); MEAN CELL VOLUME 81.2 fl (80.0-105.0); MEAN CORPUSCULAR HEMOGLOBIN 26.4 pg (25.0-35.0); MEAN CORPUSCULAR HGB CONC 32.5 g/dl (31.0-37.0); MEAN PLATELET VOLUME 8.9 fl (7.0-11.0); MONO # 1.2 (0.1-0.6); MONO % 13.1 % (1.0-6.0); RBC 3.03 10^6/uL (3.5-6.1); RED CELL DISTRIBUTION WIDTH 18.6 % (11.5-14.5); WHITE BLOOD COUNT 9.2 10^3/ul (4.5-11.0)
[2018-02-09 06:20] LABS: INR 2.81 (0.93-1.08)
[2018-02-09 06:26] LABS: ALB/GLOB RATIO 0.8 (1.1-1.8); ALBUMIN 2.7 g/dL (3.0-4.8); CALCIUM 9.9 mg/dL (8.4-10.5)
[2018-02-09] MEDS: Heparin25000 units/250ml 1/2NS 25,000 UNITS/250 ML BAG IV PRN (06:26)
[2018-02-09 06:28] LABS: IRON 39 ug/dL (45-180)
[2018-02-09 06:37] LABS: % IRON SATURATION 23 % (20-55); TOTAL IRON BINDING CAPACITY 165 ug/dL (261-462)
[2018-02-09] MEDS: Acetylcysteine 20% Inhal Soln (4ml) INH SCH ×3 (07:00→21:00)
[2018-02-09] MEDS: Levalbuterol 0.63 MG/3 ML Inhal Soln UD IH SCH ×2 (07:00→13:34)
[2018-02-09] MEDS: Ipratropium 0.02% Inhal Soln (0.5 mg/2.5 ml) UD IH SCH ×3 (07:00→20:53)
[2018-02-09] MEDS: Insulin Lispro (humaLOG) MEDIUM Coverage SC SCH ×4 (08:13→22:30)
--- NOTE | 2018-02-09 09:46 | CP.PCM.PN ---
Subjective - Date & Time of Evaluation Date of Evaluation: 02/09/18 Time of Evaluation: 06:30 - Subjective Subjective: Lobo Sepulveda DO, IM Resident PGY-1 Hematology/Oncology Progress Note for Dr. Samson Patient was seen and examined at bedside. No acute events overnight. Patient is somnolent and responds to commands but does not verbalize. Objective - Vital Signs/Intake and Output Vital Signs (last 24 hours): Temp Pulse Resp BP Pulse Ox 98.3 F 105 H 26 H 111/67 91 L 02/09/18 00:01 02/09/18 09:21 02/09/18 02:50 02/09/18 09:21 02/09/18 02:50 Intake and Output: 02/09/18 02/09/18 06:59 18:59 Intake Total 250 Output Total 650 Balance -400 - Medications Medications: Current Medications Acetylcysteine (Acetylcysteine 20%) 3 ml INH Q8 [facility] Last Admin: 02/09/18 07:00 Dose: 3 ml Aspirin (Ecotrin) 81 mg PO DAILY [facility] Last Admin: 02/09/18 09:17 Dose: 81 mg Atorvastatin Calcium (Lipitor) 10 mg PO DAILY [facility] Last Admin: 02/09/18 09:17 Dose: 10 mg Carvedilol (Coreg) 3.125 mg PO BID [facility] Last Admin: 02/09/18 09:16 Dose: 3.125 mg Finasteride (Proscar) 5 mg PO DAILY [facility] Last Admin: 02/09/18 09:17 Dose: 5 mg Furosemide (Lasix) 20 mg IVP BID [facility] Last Admin: 02/09/18 09:16 Dose: 20 mg Milrinone Lactate/Dextrose (Primacor 20mg/100ml D5w) 100 mls @ 2.585 mls/hr IV .Q24H PRN; Protocol; 0.125 MCG/KG/MIN PRN Reason: TITRATE PER MD ORDER Last Admin: 02/08/18 10:47 Dose: 0.1 mcg/kg/min, 2.068 mls/hr Sodium Chloride (Sodium Chloride 0.9%) 1,000 mls @ 80 mls/hr IV .[id number] [facility] Last Admin: 02/04/18 23:45 Dose: 80 mls/hr Meropenem 500 mg/ Sodium (Chloride) 50 mls @ 100 mls/hr IVPB DAILY [facility] PRN Reason: Protocol Stop: 02/14/18 10:01 Last Admin: 02/08/18 10:30 Dose: 100 mls/hr Heparin Sodium/Sodium Chloride (Heparin 03419 Units/250ml 1/2 Normal Saline) 25 ,000 units in 250 mls @ 11.975 mls/hr IV .[id number] PRN; Protocol; 20 UNITS/KG/HR PRN Reason: ADJUST RATE PER PROTOCOL Last Admin: 02/09/18 06:26 Dose: 22 units/kg/hr, 13.172 mls/hr Insulin Detemir (Levemir) 13 unit SC HS [facility] Insulin Human Lispro (Humalog Med) 0 units SC ACHS [facility] PRN Reason: Protocol Last Admin: 02/09/18 08:13 Dose: 1 unit Ipratropium [place] (Atrovent) 0.5 mg IH TIDRESP [facility] Last Admin: 02/09/18 07:00 Dose: 0.5 mg Levalbuterol HCl (Xopenex) 0.63 mg IH TIDRESP [facility] Last Admin: 02/09/18 07:00 Dose: 0.63 mg Oxycodone/Acetaminophen (Percocet 5/325 Mg Tab) 1 tab PO Q6H PRN PRN Reason: Pain, moderate (4-7) Stop: 02/09/18 13:07 Last Admin: 02/07/18 03:40 Dose: 1 tab Pantoprazole Sodium (Protonix Ec Tab) 40 mg PO 0600 [facility] Last Admin: 02/09/18 05:56 Dose: 40 mg Sodium Bicarbonate (Sodium Bicarbonate Tab) 650 mg PO TID [facility] Last Admin: 02/09/18 09:16 Dose: 650 mg Verapamil HCl (Calan Tab) 40 mg PO TID [facility] Last Admin: 02/09/18 09:21 Dose: 40 mg Verapamil HCl (Verapamil Inj) 2.5 mg IVP Q6H PRN PRN Reason: for heart rate >130 Warfarin Sodium (Coumadin) 5 mg PO DAILY [facility] PRN Reason: Protocol Last Admin: 02/09/18 09:21 Dose: 5 mg - Labs Labs: 02/09/18 05:30 02/09/18 05:30 PT 33.0 SECONDS (9.4-12.5) H 02/09/18 05:45 INR 2.81 (0.93-1.08) H 02/09/18 05:45 APTT 80.2 Seconds (25.1-36.5) H 02/09/18 05:45 Assessment and Plan - Assessment and Plan (Free Text) Assessment: Mr. Weir is a 72 year old male with PMH of CVA, adenocarcinoma of the lung with liver metastases, atrial fibrillation (on Coumadin), CKD, CHF (EF of 15), endocarditis, abdominal aortic aneurysm (s/p repair), and diverticulitis (s/p partial colectomy with ostomy bag) who presented to ED with worsening lethargy, hypotension, and hyperglycemia. Patient was anemic on admission, prompting consult. Plan: Iron studies most consistent with anemia of chronic disease. We will continue to treat symptomatically including transfusion and/or EPO stimulating agents as needed. Case and plan were reviewed and discussed in detail with my attending physician Dr. Mali Sepulveda, IM Resident PGY-1
[2018-02-09] MEDS: Oxycodone/Acetaminophen 5/325 mg Tab PO PRN (10:01)
[2018-02-09] MEDS: Meropenem 500 MG in Sodium Chloride 0.9% 50 ML IVPB SCH (10:06)
--- NOTE | 2018-02-09 11:26 | CP.PCM.PN ---
Subjective - Date & Time of Evaluation Date of Evaluation: 02/09/18 Time of Evaluation: 09:05 - Subjective Subjective: Patient is still weak-looking, no diarrhea, no vomiting, no fevers overnight. Objective - Vital Signs/Intake and Output Vital Signs (last 24 hours): Temp Pulse Resp BP Pulse Ox 98.3 F 104 H 26 H 130/78 91 L 02/09/18 00:01 02/09/18 02:50 02/09/18 02:50 02/09/18 02:00 02/09/18 02:50 Intake and Output: 02/08/18 02/09/18 18:59 06:59 Intake Total 1072 250 Output Total 450 Balance 622 250 - Medications Medications: Current Medications Acetylcysteine (Acetylcysteine 20%) 3 ml INH Q8 [facility] Last Admin: 02/08/18 19:31 Dose: 3 ml Aspirin (Ecotrin) 81 mg PO DAILY [facility] Last Admin: 02/08/18 10:28 Dose: 81 mg Atorvastatin Calcium (Lipitor) 10 mg PO DAILY [facility] Last Admin: 02/08/18 10:28 Dose: 10 mg Carvedilol (Coreg) 3.125 mg PO BID [facility] Last Admin: 02/08/18 17:47 Dose: 3.125 mg Finasteride (Proscar) 5 mg PO DAILY [facility] Last Admin: 02/08/18 10:28 Dose: 5 mg Furosemide (Lasix) 20 mg IVP BID [facility] Last Admin: 02/08/18 17:47 Dose: 20 mg Milrinone Lactate/Dextrose (Primacor 20mg/100ml D5w) 100 mls @ 2.585 mls/hr IV .Q24H PRN; Protocol; 0.125 MCG/KG/MIN PRN Reason: TITRATE PER MD ORDER Last Admin: 02/08/18 10:47 Dose: 0.1 mcg/kg/min, 2.068 mls/hr Sodium Chloride (Sodium Chloride 0.9%) 1,000 mls @ 80 mls/hr IV .[id number] [facility] Last Admin: 02/04/18 23:45 Dose: 80 mls/hr Meropenem 500 mg/ Sodium (Chloride) 50 mls @ 100 mls/hr IVPB DAILY [facility] PRN Reason: Protocol Stop: 02/14/18 10:01 Last Admin: 02/08/18 10:30 Dose: 100 mls/hr Heparin Sodium/Sodium Chloride (Heparin 59054 Units/250ml 1/2 Normal Saline) 25 ,000 units in 250 mls @ 11.975 mls/hr IV .[id number] PRN; Protocol; 20 UNITS/KG/HR PRN Reason: ADJUST RATE PER PROTOCOL Last Admin: 02/09/18 06:26 Dose: 22 units/kg/hr, 13.172 mls/hr Insulin Detemir (Levemir) 13 unit SC HS [facility] Insulin Human Lispro (Humalog Med) 0 units SC ACHS [facility] PRN Reason: Protocol Last Admin: 02/08/18 22:38 Dose: Not Given Ipratropium [place] (Atrovent) 0.5 mg IH TIDRESP [facility] Last Admin: 02/08/18 19:33 Dose: 0.5 mg Levalbuterol HCl (Xopenex) 0.63 mg IH TIDRESP [facility] Last Admin: 02/08/18 19:33 Dose: 0.63 mg Oxycodone/Acetaminophen (Percocet 5/325 Mg Tab) 1 tab PO Q6H PRN PRN Reason: Pain, moderate (4-7) Stop: 02/09/18 13:07 Last Admin: 02/07/18 03:40 Dose: 1 tab Pantoprazole Sodium (Protonix Ec Tab) 40 mg PO 0600 [facility] Last Admin: 02/09/18 05:56 Dose: 40 mg Sodium Bicarbonate (Sodium Bicarbonate Tab) 650 mg PO TID [facility] Last Admin: 02/08/18 17:48 Dose: 650 mg Verapamil HCl (Calan Tab) 40 mg PO TID [facility] Last Admin: 02/08/18 17:47 Dose: 40 mg Verapamil HCl (Verapamil Inj) 2.5 mg IVP Q6H PRN PRN Reason: for heart rate >130 Warfarin Sodium (Coumadin) 5 mg PO DAILY [facility] PRN Reason: Protocol Last Admin: 02/08/18 10:28 Dose: 5 mg - Labs Labs: 02/09/18 05:30 02/09/18 05:30 PT 33.0 SECONDS (9.4-12.5) H 02/09/18 05:45 INR 2.81 (0.93-1.08) H 02/09/18 05:45 APTT 63.6 Seconds (25.1-36.5) H 02/08/18 07:50 - Constitutional Appears: Chronically Ill - Head Exam Head Exam: NORMAL INSPECTION - ENT Exam ENT Exam: Mucous Membranes Moist - Neck Exam Neck Exam: absent: Meningismus - Respiratory Exam Respiratory Exam: Decreased Breath Sounds Additional comments: right chest wall port in place - Cardiovascular Exam Cardiovascular Exam: +S1, +S2 - GI/Abdominal Exam GI & Abdominal Exam: Soft. absent: Tenderness Additional comments: right sided colostomy in place Assessment and Plan - Assessment and Plan (Free Text) Plan: Assessment severe sepsis with acute on chronic renal failure due to multifocal healthcare- associated pneumonia with possible gram negative bacilli as well as ESBL E. coli complicated UTI (with chronic Grimaldo catheter use) history of complicated UTI with Grimaldo catheter from multidrug-resistant ESBL- producing Klebsiella, on top of HCAP chronic CHF S/P UTI with ESBL Klebsiella and Proteus history of sepsis due to left upper lobe healthcare-associated pneumonia, probably atypical history of severe sepsis due to ESBL E. coli bacteremia, unclear source history of sepsis due to right sided healthcare-associated pneumonia history of UTI with carbapenem-resistant Klebsiella history of ESBL-producing Klebsiella bacteremia, secondary to the port S/P removal S/P treatment for healthcare-associated pneumonia history of C diff associated diarrhea history of UTI with yeast history healthcare-associated pneumonia Severe cardiomyopathy with EF 10-15 % paroxysmal atrial fibrillation Coronary artery disease S/P stenting history of aortic aneurysm history of SVT S/P AICD placement S/P procedure on his prostate in 2012 S/P partial colectomy and colostomy Plan continue Merrem day 4; should target at least 7 days of antibiotics overall prognosis is poor
--- NOTE | 2018-02-09 11:43 | CP.PCM.PN ---
Subjective - Date & Time of Evaluation Date of Evaluation: 02/09/18 Time of Evaluation: 15:00 - Subjective Subjective: Lethargic, altered.No acute findings Objective - Vital Signs/Intake and Output Vital Signs (last 24 hours): Temp Pulse Resp BP Pulse Ox 98.3 F 98 H 22 111/52 L 98 02/09/18 00:01 02/09/18 10:10 02/09/18 10:10 02/09/18 10:01 02/09/18 10:10 Intake and Output: 02/09/18 02/09/18 06:59 18:59 Intake Total 250 20 Output Total 650 Balance -400 20 - Medications Medications: Current Medications Acetylcysteine (Acetylcysteine 20%) 3 ml INH Q8 [facility] Last Admin: 02/09/18 07:00 Dose: 3 ml Aspirin (Ecotrin) 81 mg PO DAILY [facility] Last Admin: 02/09/18 09:17 Dose: 81 mg Atorvastatin Calcium (Lipitor) 10 mg PO DAILY [facility] Last Admin: 02/09/18 09:17 Dose: 10 mg Carvedilol (Coreg) 3.125 mg PO BID [facility] Last Admin: 02/09/18 09:16 Dose: 3.125 mg Finasteride (Proscar) 5 mg PO DAILY [facility] Last Admin: 02/09/18 09:17 Dose: 5 mg Furosemide (Lasix) 20 mg IVP BID [facility] Last Admin: 02/09/18 09:16 Dose: 20 mg Milrinone Lactate/Dextrose (Primacor 20mg/100ml D5w) 100 mls @ 2.585 mls/hr IV .Q24H PRN; Protocol; 0.125 MCG/KG/MIN PRN Reason: TITRATE PER MD ORDER Last Admin: 02/08/18 10:47 Dose: 0.1 mcg/kg/min, 2.068 mls/hr Sodium Chloride (Sodium Chloride 0.9%) 1,000 mls @ 80 mls/hr IV .[id number] [facility] Last Admin: 02/04/18 23:45 Dose: 80 mls/hr Meropenem 500 mg/ Sodium (Chloride) 50 mls @ 100 mls/hr IVPB DAILY [facility] PRN Reason: Protocol Stop: 02/14/18 10:01 Last Admin: 02/09/18 10:06 Dose: 100 mls/hr Heparin Sodium/Sodium Chloride (Heparin 66684 Units/250ml 1/2 Normal Saline) 25 ,000 units in 250 mls @ 11.975 mls/hr IV .[id number] PRN; Protocol; 20 UNITS/KG/HR PRN Reason: ADJUST RATE PER PROTOCOL Last Titration: 02/09/18 10:55 Dose: 0 units/kg/hr, 0 mls/hr Insulin Detemir (Levemir) 13 unit SC HS [facility] Insulin Human Lispro (Humalog Med) 0 units SC ACHS [facility] PRN Reason: Protocol Last Admin: 02/09/18 08:13 Dose: 1 unit Ipratropium [place] (Atrovent) 0.5 mg IH TIDRESP [facility] Last Admin: 02/09/18 07:00 Dose: 0.5 mg Levalbuterol HCl (Xopenex) 0.63 mg IH TIDRESP [facility] Last Admin: 02/09/18 07:00 Dose: 0.63 mg Oxycodone/Acetaminophen (Percocet 5/325 Mg Tab) 1 tab PO Q6H PRN PRN Reason: Pain, moderate (4-7) Stop: 02/09/18 13:07 Last Admin: 02/09/18 10:01 Dose: 1 tab Pantoprazole Sodium (Protonix Ec Tab) 40 mg PO 0600 [facility] Last Admin: 02/09/18 05:56 Dose: 40 mg Sodium Bicarbonate (Sodium Bicarbonate Tab) 650 mg PO TID [facility] Last Admin: 02/09/18 09:16 Dose: 650 mg Verapamil HCl (Calan Tab) 40 mg PO TID [facility] Last Admin: 02/09/18 09:21 Dose: 40 mg Verapamil HCl (Verapamil Inj) 2.5 mg IVP Q6H PRN PRN Reason: for heart rate >130 - Labs Labs: 02/09/18 05:30 02/09/18 05:30 PT 33.0 SECONDS (9.4-12.5) H 02/09/18 05:45 INR 2.81 (0.93-1.08) H 02/09/18 05:45 APTT 80.2 Seconds (25.1-36.5) H 02/09/18 05:45 - Constitutional Appears: Cachectic, Chronically Ill - Eye Exam Eye Exam: Normal appearance, PERRL - ENT Exam ENT Exam: Mucous Membranes Moist - Respiratory Exam Respiratory Exam: Decreased Breath Sounds, NORMAL BREATHING PATTERN - Cardiovascular Exam Cardiovascular Exam: Irregular Rhythm, +S1, +S2 - GI/Abdominal Exam GI & Abdominal Exam: Soft, Hypoactive Bowel Sounds Additional comments: colostomy patent - Extremities Exam Extremities Exam: Normal Capillary Refill, Pedal Edema Additional comments: right hemiparesis - Back Exam Additional comments: sacral decubiti stage 2 - Neurological Exam Neurological Exam: Altered - Skin Skin Exam: Dry, Pallor Assessment and Plan - Assessment and Plan (Free Text) Assessment: 72 year old male with history of cardiomyopthy, AICD/Milrinoe drip, metastatic lung cancer,DM, CVA, diverticuli s/p colostomy who was admitted with weakness, AMS, [place],anemia, sepsis, pneumonia, moderate dysphagia. Patient's and daughter had discussion with Dr Jack regarding patient's resuscitation status. Family aware of patient's multiple comorbidities and that burdens of resuscitation would outweigh benefit. is agreeable to DNR/ DNI but prefers her son to sign POLST Directive. Son is expected to visit later today I met with patient's son Perry POLST: DNR/DNI directive completed. Family aware of patient's multiple medical problems and poor prognosis but due to roman catholic belief they are unable to participate to in hospice care Tie spent with family in goals of care discussion and advance care planning, Plan: Goals of care and advance care planning.POLST: DNR/DNI Anemia: s/p transfusion, monitor CBC Lung Cancer: F/u with oncology as an outpatient A Fib/cardiomyopathy: Cardiology following, on Milrinone, ASA, Verapamil, Lasix , Proscar. Sepsis:ID following, on Merrem. DM: Monitor glucose levels,insulin, levemir,lantus .
--- NOTE | 2018-02-09 11:59 | PN ---
DATE: 02/09/2018 SUBJECTIVE: The patient is lying in bed. He seems very stable compared with yesterday. His vitals are better. He is more alert although he still gets lethargic. The patient's family is around, questions have been asked and discussed with them and DNR situation they do ask for do not resuscitate or intubate. PHYSICAL EXAMINATION: VITAL SIGNS: Heart rate in the 90s, afebrile, blood pressure 130/70, respiration 21, saturating 99% on 2 liters. HEAD AND NECK: Normal. There is a prominent vein from the Port-A-Cath, but otherwise no JVD. CHEST: Clear bilaterally. CARDIAC: First sound and second sound normal. Systolic murmur in the mitral area. ABDOMEN: Soft. There is a colostomy bag. EXTREMITIES: No edema. NEUROLOGICAL: The patient is bedridden. He moves upper extremities. He is alert, but does not move both lower extremities. LABORATORY STUDIES: On the , his white count is 9.9, hemoglobin is 7.6, hematocrit 23.9, platelets 353. Chemistry is as follows: Sodium 139, potassium 5.1, chloride 107, bicarb 16, BUN 127, creatinine 7.1, blood sugar 146, calcium 9.8, phosphorus 3.3, magnesium 2.6, liver function test is normal except alkaline phosphatase is 382. The patient also has low albumin 2.7. The patient at one time has proBNP was 30,700. We also have last chest x-ray a couple of days ago and also which showed lungs, there is no significant change in the right lower lobe and left upper lobe infiltrates, which could be infiltrates versus pneumonia versus lung cancer. Also, the patient had abdominal, chest, pelvic CAT scan was done without IV contrast and it shows impression of multifocal pneumonia involving posterior segment of right upper lobe, both lower lobes, right lower lobe with dense consolidations, it is pneumonia. Other etiology should be considered. Also, there is hepatic metastasis, large lesion, posterior hepatic dome measures 3.5 x 4.3, otherwise no other significant change. IMPRESSION: 1. This is a 72-year-old male very sick with multiorgan failure. The patient does have renal failure, liver metastasis for almost 4 to 5 months, lung cancer, bilateral pneumonia, cerebrovascular accident, lower extremity weakness both legs and bedridden, colostomy, ischemic cardiomyopathy with ejection fraction 25%. I did discuss with the patient's family the details of his problem and really there is no much time left for him. He has a poor prognosis, multiorgan failure, comfort care is best, but we decided to do DNR/DNI for now and they will think about rest; however, we have tendency to keep him comfortable and I will proceed with that. We will continue current therapy for now. 2. Renal failure, chronic renal failure stage IV. 3. Hepatic metastasis, advanced lung cancer stage IV. 4. Ischemic cardiomyopathy with ejection fraction 20 to 25%. 5 Urosepsis. 6 Pneumonia. 7. History of atrial fibrillation. PLAN: At this time, we will continue current therapy. He is on heparin, we will continue Coumadin, switch him to p,o. Continue all the other medications for underlying COPD, pneumonia. Continue Mucomyst and any other bronchodilators. CURRENT MEDICATIONS: The patient getting Mucomyst, Atrovent, Calan SR 40 t.i.d. He is getting Coumadin 5 mg daily, IV fluids 50 mL but on hold, and also getting Lipitor, meropenem IV, oxycodone p.r.n. for pain, IV milrinone, Proscar, Protonix, sodium bicarb, verapamil p.r.n. 2.5 mg IV every 6 hours p.r.n. and Xopenex inhaled bronchodilators, Lasix 20 IV b.i.d. Continue for his insulin-dependent diabetes. The patient getting insulin coverage. We will put him on Lantus or Levemir. We will manage it according to the patient's p.o. intake. We may need to do also a swallowing eval because of his expressing some difficulty swallowing. Continue current therapy. Dexter Palacios MD
[2018-02-09] MEDS: Dextrose 5%/0.45% NS 1,000 ML IV SCH (15:02)
--- NOTE | 2018-02-09 17:13 | PN ---
DATE: 02/09/2018 REASON FOR THE CONSULTATION AND FOLLOWUP: Coronary artery disease, cardiomyopathy, admitted with hypertension, hypoglycemia, AFib, rapid ventricular rate, worsening renal insufficiency. SUBJECTIVE: Patient denies any chest pain, shortness of breath or any palpitation. OBJECTIVE: GENERAL: Not in apparent distress. Lying flat in the bed. VITAL SIGNS: As follows. Temperature afebrile, heart rate 99, blood pressure 112/52. HEENT: PERRLA. Extraocular muscles intact. NECK: Supple. No carotid bruits or thyromegaly. CHEST: Clear to auscultation. HEART: S1 and S2, regular. ABDOMEN: Soft. EXTREMITIES: Clubbing and cyanosis negative. LABORATORY DATA: Blood workup as follows: WBC 9.8, hemoglobin 8, hematocrit 24.6, platelet count 326. Chemistry shows sodium 130, potassium 5.3, chloride 108, carbon dioxide 16, anion gap of 19, BUN , creatinine is 7. Total protein 6, albumin 2.7, albumin globulin ratio 0.8. IMPRESSION: Hypoglycemia; hypotension; sepsis; atrial fibrillation; rapid ventricular rate; coronary artery disease; cardiomyopathy, ischemic; status post percutaneous transluminal coronary angioplasty to left anterior descending; anemia; ischemic cardiomyopathy; status post automatic implantable cardioverter defibrillator; acute kidney injury; diverticular colonic disease, status post colostomy; history of lung cancer, status post radiation; status post endovascular stent. Patient is on anticoagulation. INR is 2.8. RECOMMENDATION: We will discontinue heparin. INR is therapeutic. Continue verapamil. Hold Coumadin today, INR tomorrow. Continue antibiotic. Monitor H and H closely. We will follow with you. Overall patient condition is critical. Long-term prognosis is guarded. Eventually the patient may needs the dialysis, but too fragile to go for dialysis. We will do PT/INR tomorrow. No Coumadin today and we will check the INR tomorrow. Arabella Mathews MD
--- NOTE | 2018-02-09 18:10 | PN ---
DATE: 02/09/2018 SUBJECTIVE: The patient is seen lying in bed. He is awake, his eyes are open. He is not really following commands. is at bedside. PHYSICAL EXAMINATION: GENERAL: Elderly male sitting up in bed. VITAL SIGNS: Blood pressure 98/58, heart rate 100, respiratory rate 24, and temperature 99. HEENT: Normocephalic, atraumatic, positive pallor. NECK: Supple, no JVD. LUNGS: Bilateral equal air entry, bilateral equal expansion, no rales. CARDIAC: S1 and S2, regular rate and rhythm, no murmur, no rub. ABDOMEN: Soft, nondistended, nontender, bowel sounds present, positive colostomy. EXTREMITIES: No lower extremity edema. INTAKE AND OUTPUT: 1322/1100 LABORATORY DATA: WBC 9.2, hemoglobin 8, hematocrit 25, and platelets 326. Sodium 138, potassium 5.3, chloride 108, CO2 of 16. BUN 134, creatinine 7. Glucose 141. Calcium 9.9. Iron saturation 23, iron 39, ferritin 1250. Urine culture, Klebsiella. CURRENT MEDICATIONS: List reviewed. ASSESSMENT: 1. Acute kidney injury superimposed on chronic kidney disease stage V. 2. Hyperkalemia secondary to acute kidney injury. 3. Congestive heart failure/cardiomyopathy/decreased ejection fraction, on home milrinone therapy. 4. [id number] diabetes mellitus. 5. Hypertension. 6. History of lung cancer. 7. History of partial colectomy and colostomy. 8. Severe anemia. PLAN: 1. Continue antibiotics as per ID recommendations. 2. Continue supportive therapy. 3. No plans for renal replacement therapy. 4. Continue milrinone. Kaylen Crump MD
--- NOTE | 2018-02-09 20:54 | PN ---
DATE: 02/09/2018 PULMONARY CRITICAL CARE CONSULT REFERRING PHYSICIAN: Dexter Palacios MD. SUBJECTIVE: He is lying in the bed, sleepy, arousable. is at bedside. On nasal cannula oxygen. No hemoptysis. Has some cough. No chest pain. No vomiting. No abdominal pain. No dysuria. Not much leg swelling. OBJECTIVE: GENERAL: Lethargic. VITAL SIGNS: Temperature is 98, heart rate is 100, respiratory rate is 23, blood pressure 107/63, pulse ox 93% on nasal cannula. HEENT: Moist mucous membrane. No ulcer or thrush noted. NECK: Supple. No JVD. LUNGS: Have poor effort. Scattered rhonchi. HEART: S1 and S2. ABDOMEN: Soft. Colostomy working well. EXTREMITIES: No edema. Decubitus ulcers. NEUROLOGICAL: Sleepy, arousable. MEDICATIONS: He is on Mucomyst inhaled every 8 hours, Atrovent inhaled three times a day, verapamil 40 mg three times a day, Coreg 3.125 mg twice a day, IV fluid D5 half normal saline 40 mL/hour, Ecotrin 81 mg daily, insulin coverage, Lasix 20 mg every 12 hours, Levemir 30 units subcu at bedtime, Lipitor 10 mg daily, meropenem 500 mg daily, Primacor IV drips, Proscar 5 mg daily, Protonix 40 mg daily, sodium bicarbonate 650 mg three times a day, Xopenex inhaled every 12 hours. LABORATORY DATA: Shows hemoglobin 8, hematocrit 24.6, WBC 9.2, platelet count is 326. PTT is 80. INR 2.81. Sodium 138, potassium 4.3, chloride 108, bicarbonate 16, BUN 134, creatinine 7, glucose is 228, calcium 9.9, iron is 39, ferritin is 1250, total bili 0.3, AST 34, ALT 24, alk phos 315, albumin is 2.7. Urine culture has Klebsiella pneumoniae. Blood culture has been negative. IMPRESSION AND PLAN: Multiorgan failure, has a metastatic lung cancer, severe cardiomyopathy, milrinone dependent, history of hemicolectomy, has a colostomy, renal failure, decubitus ulcer, aspiration pneumonia, urinary tract infection. Spoke to the patient's at bedside. All the questions answered. Continue nebulizer treatment. On Primacor. Keep head at 45 degrees. Aspiration precaution. Gastric prophylaxis. On anticoagulation. Overall, poor prognosis. Follow up labs in the morning. Continue supportive care. Thank you and we will follow with you. Arabella Alva MD
[2018-02-09] MEDS ORDERED: Levalbuterol 0.63 MG/3 ML Inhal Soln UD IH SCH ×2 (22:00→22:09)
[2018-02-10] MEDS: Acetylcysteine 20% Inhal Soln (4ml) INH SCH ×2 (00:12→07:02)
[2018-02-10 05:38] LABS: EOS # 0.1 (0.0-0.7); EOS % 0.6 % (1.5-5.0); GRAN # 12.22 (1.4-6.5); GRAN % 86.8 % (50.0-68.0); HEMOGLOBIN 7.9 g/dL (14.0-18.0); LYMPH # 1.1 (1.2-3.4); LYMPH % 7.9 % (22.0-35.0); MEAN CELL VOLUME 81.5 fl (80.0-105.0); MEAN CORPUSCULAR HEMOGLOBIN 26.1 pg (25.0-35.0); MEAN PLATELET VOLUME 9.1 fl (7.0-11.0); MONO # 0.7 (0.1-0.6); MONO % 4.7 % (1.0-6.0); RBC 3.03 10^6/uL (3.5-6.1); RED CELL DISTRIBUTION WIDTH 18.3 % (11.5-14.5); WHITE BLOOD COUNT 14.1 10^3/ul (4.5-11.0)
[2018-02-10 06:01] LABS: PROTHROMBIN TIME 57.1 SECONDS (9.4-12.5)
[2018-02-10 06:02] LABS: INR 4.81 (0.93-1.08)
[2018-02-10] MEDS: Pantoprazole 40 mg EC Tab PO SCH (06:36)
[2018-02-10 06:47] LABS: CALCIUM 9.8 mg/dL (8.4-10.5)
[2018-02-10] MEDS: Ipratropium 0.02% Inhal Soln (0.5 mg/2.5 ml) UD IH SCH ×3 (07:01→21:05)
[2018-02-10] MEDS: Acetylcysteine 20% Inhal Soln (4ml) IH SCH ×2 (07:03→21:06)
[2018-02-10] MEDS: Insulin Lispro (humaLOG) MEDIUM Coverage SC SCH ×4 (07:44→21:34)
--- NOTE | 2018-02-10 07:52 | CP.PCM.PN ---
Subjective - Date & Time of Evaluation Date of Evaluation: 02/10/18 Time of Evaluation: 07:53 - Subjective Subjective: Marianela Haynes DO, PGY-2: Hematology and Oncology Progress Note for Dr. Samson Patient was seen and examined at bedside. Patient appears to be resting comfortably in ICU. He is not responsive. Chart review indicates patient is now DNR/DNI. Objective - Vital Signs/Intake and Output Vital Signs (last 24 hours): Temp Pulse Resp BP Pulse Ox 97.2 F L 114 H 21 133/72 93 L 02/10/18 06:00 02/10/18 07:30 02/10/18 07:30 02/10/18 07:30 02/10/18 07:30 Intake and Output: 02/10/18 02/10/18 06:59 18:59 Intake Total 728 Output Total 800 Balance -72 - Medications Medications: Current Medications Acetylcysteine (Acetylcysteine 20%) 3 ml IH BIDRESP [facility] Last Admin: 02/10/18 07:03 Dose: 3 ml Aspirin (Ecotrin) 81 mg PO DAILY [facility] Last Admin: 02/09/18 09:17 Dose: 81 mg Atorvastatin Calcium (Lipitor) 10 mg PO DAILY [facility] Last Admin: 02/09/18 09:17 Dose: 10 mg Carvedilol (Coreg) 3.125 mg PO BID [facility] Last Admin: 02/09/18 18:55 Dose: Not Given Finasteride (Proscar) 5 mg PO DAILY [facility] Last Admin: 02/09/18 09:17 Dose: 5 mg Furosemide (Lasix) 20 mg IVP BID [facility] Last Admin: 02/09/18 18:55 Dose: Not Given Milrinone Lactate/Dextrose (Primacor 20mg/100ml D5w) 100 mls @ 2.585 mls/hr IV .Q24H PRN; Protocol; 0.125 MCG/KG/MIN PRN Reason: TITRATE PER MD ORDER Last Admin: 02/08/18 10:47 Dose: 0.1 mcg/kg/min, 2.068 mls/hr Sodium Chloride (Sodium Chloride 0.9%) 1,000 mls @ 80 mls/hr IV .[id number] [facility] Last Admin: 02/04/18 23:45 Dose: 80 mls/hr Meropenem 500 mg/ Sodium (Chloride) 50 mls @ 100 mls/hr IVPB DAILY [facility] PRN Reason: Protocol Stop: 02/14/18 10:01 Last Admin: 02/09/18 10:06 Dose: 100 mls/hr Dextrose/Sodium Chloride (Dextrose 5%/0.45% Ns 1000 Ml) 1,000 mls @ 40 mls/hr IV .Q24H [facility] Stop: 02/10/18 15:00 Last Admin: 02/09/18 15:02 Dose: 40 mls/hr Insulin Detemir (Levemir) 13 unit SC HS [facility] Insulin Human Lispro (Humalog Med) 0 units SC ACHS [facility] PRN Reason: Protocol Last Admin: 02/10/18 07:44 Dose: 1 unit Ipratropium [place] (Atrovent) 0.5 mg IH TIDRESP [facility] Last Admin: 02/10/18 07:01 Dose: 0.5 mg Levalbuterol HCl (Xopenex) 0.63 mg IH [id number] [facility] Last Admin: 02/10/18 07:01 Dose: 0.63 mg Pantoprazole Sodium (Protonix Ec Tab) 40 mg PO 0600 [facility] Last Admin: 02/10/18 06:36 Dose: 40 mg Sodium Bicarbonate (Sodium Bicarbonate Tab) 650 mg PO TID [facility] Last Admin: 02/09/18 19:09 Dose: 650 mg Verapamil HCl (Calan Tab) 40 mg PO TID [facility] Last Admin: 02/09/18 18:50 Dose: Not Given Verapamil HCl (Verapamil Inj) 2.5 mg IVP Q6H PRN PRN Reason: for heart rate >130 - Labs Labs: 02/10/18 05:15 02/10/18 05:15 PT 57.1 SECONDS (9.4-12.5) H 02/10/18 05:15 INR 4.81 (0.93-1.08) H* 02/10/18 05:15 APTT 80.2 Seconds (25.1-36.5) H 02/09/18 05:45 - Constitutional Appears: No Acute Distress, Chronically Ill - Head Exam Head Exam: ATRAUMATIC, NORMOCEPHALIC - Neck Exam Neck Exam: Normal Inspection - Respiratory Exam Respiratory Exam: Decreased Breath Sounds (bilaterally), NORMAL BREATHING PATTERN - Cardiovascular Exam Cardiovascular Exam: Tachycardia, +S1, +S2 - GI/Abdominal Exam GI & Abdominal Exam: Soft, Normal Bowel Sounds - Extremities Exam Extremities Exam: Normal Inspection. absent: Calf Tenderness - Neurological Exam Neurological Exam: Alert, Awake, Oriented x3 - Psychiatric Exam Psychiatric exam: Normal Affect, Normal Mood - Skin Skin Exam: Dry, Intact, Normal Color, Warm Assessment and Plan - Assessment and Plan (Free Text) Assessment: Mr. Weir is a 72 year old male with PMH of CVA, adenocarcinoma of the lung with liver metastases, atrial fibrillation (on Coumadin), CKD, CHF (EF of 15), endocarditis, abdominal aortic aneurysm (s/p repair), and diverticulitis (s/p partial colectomy with ostomy bag) who presented to ED with worsening lethargy, hypotension, and hyperglycemia. Patient was anemic on admission, prompting consult. Plan: Iron studies most consistent with anemia of chronic disease. We will continue to treat symptomatically including transfusion and/or EPO stimulating agents as needed. Patient is now DNR/DNI. We recommend holding the patient's Coumadin and targeting an INR between 2-3. Case and plan were reviewed and discussed with attending physician Dr. Samson
[2018-02-10] MEDS: Milrinone 20mg/100ml D5W 100 ML IV PRN (09:15)
[2018-02-10] MEDS: Dextrose 5%/0.45% NS 1,000 ML IV SCH ×2 (09:24→14:54)
[2018-02-10] MEDS: Meropenem 500 MG in Sodium Chloride 0.9% 50 ML IVPB SCH (09:37)
--- NOTE | 2018-02-10 10:36 | PN ---
DATE: 02/10/2018 REASON FOR THE CONSULTATION AND FOLLOWUP: Coronary artery disease, cardiomyopathy. Admitted with hypotension, hypoglycemia, atrial fibrillation with rapid ventricular rate, worsening renal insufficiency. SUBJECTIVE: The patient denies any chest pain, shortness of breath or any palpitation. OBJECTIVE: GENERAL: Not in any apparent distress. VITAL SIGNS: Temperature afebrile, heart rate 114, blood pressure 133/72. HEENT: PERRLA. Extraocular muscles intact. NECK: Supple. No carotid bruit. No thyromegaly. CHEST: Clear to auscultation. HEART: S1 and S2 regular. ABDOMEN: Soft. EXTREMITIES: Clubbing and cyanosis negative. LABORATORY DATA: Blood workup as follows; WBC 14.1, hemoglobin 7.9, hematocrit 24.7, platelet count 316. INR 4.8. Chemistry shows sodium 137, potassium 5, chloride 105, carbon dioxide 17, anion gap of 20, BUN 137, creatinine 6.9. IMPRESSION: Paroxysmal atrial fibrillation, now the patient is in atrial fibrillation, coronary artery disease, hypoglycemia, hypotension on arrival, acute kidney injury on chronic renal insufficiency, ischemic cardiomyopathy, status post percutaneous transluminal coronary angioplasty of left anterior descending artery, status post automatic implantable cardioverter-defibrillator; history of diverticular colonic disease, status post colostomy; history of lung carcinoma, status post radiation. RECOMMENDATIONS: The patient is thought to be high risk for dialysis. The patient was on Coumadin. Heparin is started and now Coumadin restarted. Continue verapamil. Continue broad-spectrum antibiotic. Continue atorvastatin. Overall, the patient's condition is critical. Long-term prognosis is extremely guarded. Continue supportive care. Discuss with the nursing staff taking care of the patient in the Critical Unit. Arabella Mathews MD
--- NOTE | 2018-02-10 10:41 | PN ---
DATE: 02/10/2018 SUBJECTIVE: The patient is seen lying in the bed. He is awake. He opens his eyes. PHYSICAL EXAMINATION: GENERAL: Elderly male lying in bed. VITAL SIGNS: Blood pressure 121/77, heart rate 117, respiratory rate 21, temperature 97.2. HEENT: Normocephalic, atraumatic, positive pallor. NECK: Supple, no JVD. LUNGS: Bilateral equal air entry, bilateral equal expansion, no rales appreciated anteriorly. CARDIAC: S1, S2, regular rate and rhythm, no murmur, no rub. ABDOMEN: Soft, nondistended, nontender, positive colostomy. Bowel sounds present. EXTREMITIES: No lower extremity edema. INTAKE AND OUTPUT: 748/800. LABORATORY DATA: WBC 14, hemoglobin 7.9, hematocrit 25, platelets 316. Sodium 137, potassium 5, chloride 105, CO2 of 17, BUN 137, creatinine 6.9, glucose 184, calcium is 9.8, phosphorus 4.7, magnesium 2.3. CURRENT MEDICATIONS: List reviewed. ASSESSMENT AND PLAN: 1. Acute kidney injury superimposed on chronic kidney disease stage IV/V. 2. Severe anemia/gastrointestinal bleed. 3. Sepsis/pneumonia. 4. Congestive heart failure/cardiomyopathy/decreased ejection fraction/home Primacor. 5. Non-insulin dependent diabetes mellitus. 6. Hypertension. 7. History of lung cancer. 8. History of colostomy. PLAN: 1. Continue IV fluids D5 half-normal saline at 40. 2. Continue antibiotics as per ID recommendations. 3. Comfort care. 4. No plans for renal replacement therapy. Kaylen Crump MD
[2018-02-10] MEDS: Oxycodone/Acetaminophen 5/325 mg Tab PO PRN ×2 (11:56→21:26)
--- NOTE | 2018-02-10 13:21 | CP.PCM.PN ---
Subjective - Date & Time of Evaluation Date of Evaluation: 02/10/18 Time of Evaluation: 11:25 - Subjective Subjective: Patient looks weak and tired, no fevers overnight, no diarrhea. Objective - Vital Signs/Intake and Output Vital Signs (last 24 hours): Temp Pulse Resp BP Pulse Ox 97.2 F L 117 H 21 121/77 93 L 02/10/18 06:00 02/10/18 09:19 02/10/18 07:30 02/10/18 09:19 02/10/18 07:30 Intake and Output: 02/10/18 02/10/18 06:59 18:59 Intake Total 728 100 Output Total 800 Balance -72 100 - Medications Medications: Current Medications Acetylcysteine (Acetylcysteine 20%) 3 ml IH BIDRESP [facility] Last Admin: 02/10/18 07:03 Dose: 3 ml Aspirin (Ecotrin) 81 mg PO DAILY [facility] Last Admin: 02/10/18 09:19 Dose: 81 mg Atorvastatin Calcium (Lipitor) 10 mg PO DAILY [facility] Last Admin: 02/10/18 09:18 Dose: 10 mg Carvedilol (Coreg) 3.125 mg PO BID [facility] Last Admin: 02/10/18 09:18 Dose: 3.125 mg Finasteride (Proscar) 5 mg PO DAILY [facility] Last Admin: 02/10/18 09:19 Dose: 5 mg Furosemide (Lasix) 20 mg IVP BID [facility] Last Admin: 02/10/18 09:18 Dose: 20 mg Milrinone Lactate/Dextrose (Primacor 20mg/100ml D5w) 100 mls @ 2.585 mls/hr IV .Q24H PRN; Protocol; 0.125 MCG/KG/MIN PRN Reason: TITRATE PER MD ORDER Last Admin: 02/10/18 09:15 Dose: 0.1 mcg/kg/min, 2.068 mls/hr Sodium Chloride (Sodium Chloride 0.9%) 1,000 mls @ 80 mls/hr IV .[id number] [facility] Last Admin: 02/04/18 23:45 Dose: 80 mls/hr Meropenem 500 mg/ Sodium (Chloride) 50 mls @ 100 mls/hr IVPB DAILY [facility] PRN Reason: Protocol Stop: 02/14/18 10:01 Last Admin: 02/10/18 09:37 Dose: 100 mls/hr Dextrose/Sodium Chloride (Dextrose 5%/0.45% Ns 1000 Ml) 1,000 mls @ 40 mls/hr IV .Q24H [facility] Stop: 02/10/18 15:00 Last Admin: 02/10/18 09:24 Dose: 40 mls/hr Insulin Detemir (Levemir) 13 unit SC HS [facility] Insulin Human Lispro (Humalog Med) 0 units SC ACHS [facility] PRN Reason: Protocol Last Admin: 02/10/18 07:44 Dose: 1 unit Ipratropium [place] (Atrovent) 0.5 mg IH TIDRESP [facility] Last Admin: 02/10/18 07:01 Dose: 0.5 mg Levalbuterol HCl (Xopenex) 0.63 mg IH [id number] [facility] Last Admin: 02/10/18 07:01 Dose: 0.63 mg Pantoprazole Sodium (Protonix Ec Tab) 40 mg PO 0600 [facility] Last Admin: 02/10/18 06:36 Dose: 40 mg Sodium Bicarbonate (Sodium Bicarbonate Tab) 650 mg PO TID [facility] Last Admin: 02/10/18 09:18 Dose: 650 mg Verapamil HCl (Calan Tab) 40 mg PO TID [facility] Last Admin: 02/10/18 09:19 Dose: 40 mg Verapamil HCl (Verapamil Inj) 2.5 mg IVP Q6H PRN PRN Reason: for heart rate >130 - Labs Labs: 02/10/18 05:15 02/10/18 05:15 PT 57.1 SECONDS (9.4-12.5) H 02/10/18 05:15 INR 4.81 (0.93-1.08) H* 02/10/18 05:15 APTT 80.2 Seconds (25.1-36.5) H 02/09/18 05:45 - Constitutional Appears: Chronically Ill - Head Exam Head Exam: NORMAL INSPECTION - Neck Exam Neck Exam: absent: Meningismus - Respiratory Exam Respiratory Exam: Decreased Breath Sounds Additional comments: right chest wall port in place - Cardiovascular Exam Cardiovascular Exam: +S1, +S2 - GI/Abdominal Exam GI & Abdominal Exam: Soft. absent: Tenderness Additional comments: right sided colostomy in place Assessment and Plan - Assessment and Plan (Free Text) Plan: Assessment severe sepsis with acute on chronic renal failure due to multifocal healthcare- associated pneumonia with possible gram negative bacilli as well as ESBL E. coli complicated UTI (with chronic Grimaldo catheter use) history of complicated UTI with Grimaldo catheter from multidrug-resistant ESBL- producing Klebsiella, on top of HCAP chronic CHF S/P UTI with ESBL Klebsiella and Proteus history of sepsis due to left upper lobe healthcare-associated pneumonia, probably atypical history of severe sepsis due to ESBL E. coli bacteremia, unclear source history of sepsis due to right sided healthcare-associated pneumonia history of UTI with carbapenem-resistant Klebsiella history of ESBL-producing Klebsiella bacteremia, secondary to the port S/P removal S/P treatment for healthcare-associated pneumonia history of C diff associated diarrhea history of UTI with yeast history healthcare-associated pneumonia Severe cardiomyopathy with EF 10-15 % paroxysmal atrial fibrillation Coronary artery disease S/P stenting history of aortic aneurysm history of SVT S/P AICD placement S/P procedure on his prostate in 2012 S/P partial colectomy and colostomy Plan continue Merrem day 5; should target at least 7 days of antibiotics overall prognosis is poor
--- NOTE | 2018-02-10 14:54 | PN ---
DATE: 02/09/2018 SUBJECTIVE: The patient is in ICU, still requiring oxygen, and saturation was in the 80s. Patient's was feeding him recommended diet; however, patient did not tolerate it. Suction was done and patient's saturation improved. Patient seems also mildly lethargic. PHYSICAL EXAMINATION: VITAL SIGNS: Temperature 97.5, heart rate 100, blood pressure 107/63, patient on nasal cannula, breathing is 18. HEAD AND NECK: Normal. No JVD. No thyromegaly. CHEST: There is few rhonchi on both sides with diminished breath sounds. CARDIAC: First sound and second sound normal, tachycardiac, systolic murmur across the mitral area. ABDOMEN: Soft. There is a colostomy bag. EXTREMITIES: Lower extremities, no edema. NEUROLOGIC: Patient is paraplegic, does not move his lower extremities. LABORATORY STUDIES: On 02/09/2018; his white count is 9.2, hemoglobin 8, hematocrit 24.6, and platelets 326. Sodium 138, potassium 5.3, chloride 108, bicarb 16. BUN 134, creatinine is 7. Blood sugar 141. Calcium 9.9. Patient also has transferrin 1.2 which is low. AST and ALT are normal, alk phos is 315. Patient has low iron and low iron binding capacity. Patient has albumin 2.7 which is low. IMPRESSION AND PLAN: 1. Acute nosocomial pneumonia with history of pulmonary cancer, metastatic lung cancer. Patient continue suctioning. Continue oxygen, inhaled bronchodilators, supportive care, and follow up with the instructional paraprofessional. Currently, patient is on meropenem 500 mg intravenously daily. We will continue suctioning. Continue inhaled bronchodilators. 2. History of atrial fibrillations, tachycardia. Continue verapamil and Coreg, and that seems helping. 3. Chronic anemia, has iron deficiency plus anemia of chronic disease. We will monitor. We will follow recommendations of oncologist. 4. Dysphagia. We will reevaluate swallow evaluation. Patient does having difficulty swallowing. As has been recommended by swallow evaluation, given which is thickened fluid and seems that he has problem tolerating it. We advised the if she wants to feed him, feed him slowly and to wait him until he finish swallowing the food. We will reevaluate again. Discussed with his about percutaneous endoscopic gastrostomy tube feeding, she refused, it will not be needed at this time. Patient's family refused any feeding tube. We will use aspirations precautions. Keep the head at 45 degrees. 5. Patient has liver metastasis, lung cancer. Prognosis is poor. 6. Urinary tract infection, urosepsis. Continue intravenous antibiotics. 7. Cerebrovascular accident, chronic obstructive pulmonary disease, pneumonia, liver metastasis, renal failure, acute worsening, whose creatinine is 7. Patient also has ischemic cardiomyopathy, ejection fraction 20%. Continue intravenous milrinone. Patient has poor prognosis. Comfort care. He is do not resuscitate and do not intubate, and we will keep the patient comfortable. Continue current therapy. Dexter Palacios MD
--- NOTE | 2018-02-10 16:37 | PN ---
DATE: 02/10/2018 PULMONARY PROGRESS NOTE REFERRING PHYSICIAN: Dexter Palacios MD. SUBJECTIVE: He is lying in the bed, head at 45 degrees, lethargic, sleepy, arousable, on nasal cannula oxygen. Has some cough. No hemoptysis. No chest pain. No abdominal pain. No leg swelling. OBJECTIVE: GENERAL: Lethargic. VITAL SIGNS: Temp is 98, heart rate is 115, respiratory rate is 20, blood pressure 115/63, pulse ox 99% on nasal cannula. HEENT: Moist mucous membranes. Crowded airway. NECK: Supple. No JVD. LUNGS: Have a poor effort with scattered rhonchi. HEART: S1 and S2. ABDOMEN: Soft, nontender and nondistended. Colostomy bag looks okay. EXTREMITIES: No edema. NEUROLOGICAL: Lethargic, but arousable. MEDICATIONS: He is on Mucomyst inhaled twice a day, Atrovent inhaled three times a day, verapamil 40 mg three times a day, Coreg 3.125 mg twice a day, Ecotrin 81 mg daily, insulin coverage, Lasix 20 mg twice a day, Levemir 13 units subcu at bedtime, Lipitor 10 mg daily, meropenem 500 mg daily, Percocet 5/325 one tab every 6 hours p.r.n., IV Primacor, finasteride 5 mg daily, Protonix 40 mg daily, IV fluid normal saline 80 mL/hour, verapamil 2.5 mg every 6 hours p.r.n., Xopenex inhaled three times a day. LABORATORY DATA: Shows hemoglobin 7.9, hematocrit 24.7, WBC 14.1, platelet count is 316. INR 4.81. Sodium 137, potassium 5, chloride 105, bicarbonate is 17, BUN 137, creatinine 6.9, glucose 184, calcium 9.8, phosphorus 4.7, magnesium is 2.3. Microbiology: Urine culture has Klebsiella pneumoniae. Blood culture has been negative. IMPRESSION AND PLAN: Multiorgan failure with metastatic lung cancer to liver, chronic lung disease, severe cardiomyopathy, milrinone dependent, history of hemicolectomy, renal failure. The patient is DNR and DNI. Pulmonary point of view, oxygenation is okay. Continue supplemental oxygen, bronchodilator. Keep head at 45 degrees. Aspiration precaution. Hold anticoagulation. Follow up INR in the morning. Thank you and we will follow up with you. Arabella Alva MD
[2018-02-10] MEDS: Levalbuterol 0.63 MG/3 ML Inhal Soln UD IH SCH (21:05)
[2018-02-11] MEDS: Pantoprazole 40 mg EC Tab PO SCH (05:23)
[2018-02-11 07:34] LABS: PROTHROMBIN TIME 80.4 SECONDS (9.4-12.5)
[2018-02-11 07:35] LABS: INR 6.72 (0.93-1.08)
[2018-02-11] MEDS: Acetylcysteine 20% Inhal Soln (4ml) IH SCH ×2 (07:35→19:22)
[2018-02-11] MEDS: Ipratropium 0.02% Inhal Soln (0.5 mg/2.5 ml) UD IH SCH ×3 (07:35→19:23)
[2018-02-11] MEDS: Levalbuterol 0.63 MG/3 ML Inhal Soln UD IH SCH ×3 (07:35→19:23)
[2018-02-11] MEDS: Insulin Lispro (humaLOG) MEDIUM Coverage SC SCH ×4 (07:48→22:26)
--- NOTE | 2018-02-11 08:36 | PN ---
DATE: 02/11/2018 SUBJECTIVE: The patient is seen in room 268, bed 2 earlier today. No fevers. No chills. Nurse states that the patient had an uneventful night. PHYSICAL EXAMINATION: VITAL SIGNS: Temperature is 98, blood pressure is 110/70, respiratory rate of 20, heart rate of 92. HEENT: Examination of HEENT is unremarkable. NECK: Supple. LUNGS: Have decreased breath sounds. HEART: Normal S1, S2. ABDOMEN: Soft, nontender. LABORATORY DATA: Laboratory examination reveals the patient's white count of 14,100, hemoglobin of seven. Chemistries are noted. Urinalysis is noted and microbiology reveals Klebsiella pneumonia species, yeast species. ASSESSMENT AND PLAN: Reveals the patient is a 72-year-old male who has severe sepsis and [id number] renal failure, multifocal healthcare-associated pneumonia, possible gram-positive cocci, possible gram-negative avis as well as extended-spectrum beta-lactamase Escherichia coli urinary tract infection complicated with chronic Grimaldo catheter and today is day #6 of meropenem, would complete 7 days in a patient with coronary artery disease, history of aortic aneurysm, history of urinary tract infections, bedridden, end-stage. Should consider a hospice setting for this patient. Walt Conner MD
[2018-02-11] MEDS: Oxycodone/Acetaminophen 5/325 mg Tab PO PRN (09:51)
[2018-02-11] MEDS: Meropenem 500 MG in Sodium Chloride 0.9% 50 ML IVPB SCH (09:51)
--- NOTE | 2018-02-11 09:52 | CP.PCM.PN ---
Subjective - Date & Time of Evaluation Date of Evaluation: 02/11/18 Time of Evaluation: 06:25 - Subjective Subjective: Awake, no distress Reason for consultation and follow up: Cardiac evaluation for coronary artery disease,cardiomyopathy, admitted for hypotension,atrial fibrillation with rapid ventricular rate, worsening renal insufficiency Seen and examined by me and Dr. Lopez Objective - Vital Signs/Intake and Output Vital Signs (last 24 hours): Temp Pulse Resp BP Pulse Ox 98.7 F 95 H 20 114/69 100 02/11/18 06:00 02/11/18 06:00 02/11/18 06:00 02/11/18 06:00 02/11/18 06:00 Intake and Output: 02/11/18 02/11/18 06:59 18:59 Intake Total 26 Output Total 1000 Balance -974 - Medications Medications: Current Medications Acetylcysteine (Acetylcysteine 20%) 3 ml IH BIDRESP [facility] Last Admin: 02/11/18 07:35 Dose: 3 ml Aspirin (Ecotrin) 81 mg PO DAILY [facility] Last Admin: 02/10/18 09:19 Dose: 81 mg Atorvastatin Calcium (Lipitor) 10 mg PO DAILY [facility] Last Admin: 02/10/18 09:18 Dose: 10 mg Carvedilol (Coreg) 3.125 mg PO BID [facility] Last Admin: 02/10/18 18:07 Dose: 3.125 mg Finasteride (Proscar) 5 mg PO DAILY [facility] Last Admin: 02/10/18 09:19 Dose: 5 mg Furosemide (Lasix) 20 mg IVP BID [facility] Last Admin: 02/10/18 18:06 Dose: 20 mg Milrinone Lactate/Dextrose (Primacor 20mg/100ml D5w) 100 mls @ 2.585 mls/hr IV .Q24H PRN; Protocol; 0.125 MCG/KG/MIN PRN Reason: TITRATE PER MD ORDER Last Admin: 02/10/18 09:15 Dose: 0.1 mcg/kg/min, 2.068 mls/hr Sodium Chloride (Sodium Chloride 0.9%) 1,000 mls @ 80 mls/hr IV .[id number] [facility] Last Admin: 02/04/18 23:45 Dose: 80 mls/hr Meropenem 500 mg/ Sodium (Chloride) 50 mls @ 100 mls/hr IVPB DAILY [facility] PRN Reason: Protocol Stop: 02/14/18 10:01 Last Admin: 02/10/18 09:37 Dose: 100 mls/hr Insulin Detemir (Levemir) 13 unit SC HS [facility] Insulin Human Lispro (Humalog Med) 0 units SC ACHS [facility] PRN Reason: Protocol Last Admin: 02/11/18 07:48 Dose: 1 unit Ipratropium [place] (Atrovent) 0.5 mg IH TIDRESP [facility] Last Admin: 02/11/18 07:35 Dose: 0.5 mg Levalbuterol HCl (Xopenex) 0.63 mg IH TIDRESP [facility] Last Admin: 02/11/18 07:35 Dose: 0.63 mg Oxycodone/Acetaminophen (Percocet 5/325 Mg Tab) 1 tab PO Q6H PRN PRN Reason: Pain, moderate (4-7) Stop: 02/13/18 11:16 Last Admin: 02/10/18 21:26 Dose: 1 tab Pantoprazole Sodium (Protonix Ec Tab) 40 mg PO 0600 [facility] Last Admin: 02/11/18 05:23 Dose: 40 mg Sodium Bicarbonate (Sodium Bicarbonate Tab) 650 mg PO TID [facility] Last Admin: 02/10/18 18:06 Dose: 650 mg Verapamil HCl (Calan Tab) 40 mg PO TID [facility] Last Admin: 02/10/18 18:06 Dose: 40 mg Verapamil HCl (Verapamil Inj) 2.5 mg IVP Q6H PRN PRN Reason: for heart rate >130 - Labs Labs: 02/10/18 05:15 02/10/18 05:15 PT 80.4 SECONDS (9.4-12.5) H 02/11/18 06:30 INR 6.72 (0.93-1.08) H* 02/11/18 06:30 APTT 80.2 Seconds (25.1-36.5) H 02/09/18 05:45 - Constitutional Appears: No Acute Distress - ENT Exam ENT Exam: Mucous Membranes Moist - Respiratory Exam Respiratory Exam: Decreased Breath Sounds, Rhonchi, NORMAL BREATHING PATTERN - Cardiovascular Exam Cardiovascular Exam: REGULAR RHYTHM, +S1, +S2 Additional comments: NSR 90's PPM - GI/Abdominal Exam GI & Abdominal Exam: Soft, Normal Bowel Sounds Additional comments: colostomy - Exam Additional comments: ken catheter - Extremities Exam Extremities Exam: Normal Capillary Refill - Neurological Exam Neurological Exam: Awake - Skin Skin Exam: Dry, Warm Assessment and Plan - Assessment and Plan (Free Text) Assessment: A 72 year old male who was brought to the ER due to hypotension, rapid atrial fibrillation,history of CVA, lung CA (radiation), Atrial Fibrillation, coronary artery disease post PTCA, AICD, CHF, endocarditis, AAA, AVR, ischemic cardiomyopathy, coronary stents x 3, port to right upper chest, diabetes type 2 , metastatic liver disease and colostomy.Bed ridden. Plan: Converted and maintained normal sinus rhythm Stable cardiac status On Primacor drip DNR/DNI Pulmonary and Renal on consult Continue current treatment Continue current medications On IV antibiotics Will follow up Plan and treatment discussed with Dr. Lopez
--- NOTE | 2018-02-11 13:01 | PN ---
DATE: 02/10/2018 SUBJECTIVE: Patient is lying in bed. He is mildly lethargic, seems exhausted and depressed. No respiratory distress and seems hemodynamically stable on the monitor. PHYSICAL EXAMINATION: VITAL SIGNS: Temperature 98.1, heart rate 103, blood pressure is 96/54, saturation is 97%, respiratory rate is 30. HEAD AND NECK: Normal. No JVD. CHEST: There is bilateral rhonchi and diminished breath sounds. CARDIAC: First sound and second sound normal. Systolic murmur on the mitral valve area. ABDOMEN: Soft, nontender. Bowel sounds intact. There is colostomy bag. EXTREMITIES: No edema. NEUROLOGIC: Patient is bedridden and has bilateral weakness of lower extremities, paraplegia. LABORATORY DATA: We have here on 02/10/2018; white count 14.1, hemoglobin is 7.9, hematocrit is 24.7, and platelets 316. Chemistry: Sodium 137, potassium 5, chloride 105, bicarb 17. BUN 137, creatinine 6.9. Blood sugar 184. Phosphorus 4.7, magnesium 2.3. Blood sugar runs from 190 to 250 range. IMPRESSION AND PLAN: 1. Acute congestive heart failure. Continue IV milrinone. Continue Lasix p.r.n. He is getting 20 IV b.i.d. 2. Acute chronic obstructive pulmonary disease exacerbation. Patient currently on Xopenex plus Atrovent plus Mucomyst for his pulmonary conditions. Seems doing well. 3. Ischemic cardiomyopathy, coronary artery disease. Continue Lipitor, aspirin. 4. History of anemia of chronic disease, stable. Monitor H and H. for transfusions. 5. Chronic kidney disease stage IV. Monitor kidney functions. No dialysis. 6. History of chronic atrial fibrillations. He is on heparin. We will switch him to Coumadin, has been monitored. 7. Pneumonia, possibly aspiration pneumonia. Continue meropenem IV. 8. Urosepsis. Continue meropenem IV. Patient has Klebsiella pneumonia in the urine. 9. Patient has multiorgan failure including kidney failure, respiratory, chronic obstructive pulmonary disease plus lung mass stage IV. There were metastases. Has cerebrovascular accident, has severe cardiomyopathy. Patient's prognosis is poor. Comfort care. Patient is do not resuscitate and do not intubate. He seems comfortable. We will continue current management. Discussed with the family in detail and patient encouraged feeding as tolerated and did have aspiration at one time, but he seems doing okay now. We will suction. Saturating good. Continue current therapy. Dexter Palacios MD
--- NOTE | 2018-02-11 15:00 | PN ---
DATE: 02/11/2018 SUBJECTIVE: The patient is seen lying in bed. He seems to be sleeping comfortably. As per the , he is not very talking much. PHYSICAL EXAMINATION: GENERAL: Elderly male lying in bed. VITAL SIGNS: Blood pressure 104/69, heart rate 106, respiratory rate 18-20, temperature 98.7. HEENT: Normocephalic, atraumatic, positive pallor. NECK: Supple, no JVD. LUNGS: Bilateral equal air entry, bilateral equal expansion. CARDIAC: S1 and S2, regular rate and rhythm, no murmur, no rub. ABDOMEN: Soft, nondistended, nontender. Bowel sounds present. Positive colostomy. EXTREMITIES: No lower extremity edema. INTAKE AND OUTPUT: 134/1000. LABORATORY DATA: WBC 14, hemoglobin 7.9, hematocrit 25, platelets 316. No new labs today. MEDICATIONS: List reviewed. He is on meropenem 500 daily, milrinone. ASSESSMENT AND PLAN: 1. Acute kidney injury superimposed on chronic kidney disease, stage V. 2. Status post sepsis. 3. Pneumonia. 4. Severe anemia, gastrointestinal bleed. 5. Congestive heart failure, comprehensive metabolic panel, decreased ejection fraction. 6. Noninsulin-dependent diabetes mellitus. 7. History of hypertension. 8. History of lung cancer. 9. Colostomy. PLAN: 1. Continue antibiotics as per ID recommendations. 2. Dose all antibiotics for creatinine clearance less than 10. 3. Comfort care. 4. No plans for renal replacement therapy. 5. The patient is DNR and DNI. Kaylen Crump MD
[2018-02-11] MEDS ORDERED: Phytonadione 10 mg/ml Inj (Adult) SC ONE (15:39)
[2018-02-11] MEDS ORDERED: Oxycodone/Acetaminophen 5/325 mg Tab PO PRN (17:36)
[2018-02-11] MEDS: Dextrose 5%/0.45% NS 1,000 ML IV SCH (17:43)
--- NOTE | 2018-02-11 20:07 | PN ---
DATE: 02/11/2018 PULMONARY PROGRESS NOTE REFERRING PHYSICIAN: Dexter Palacios MD SUBJECTIVE: He is lying in the bed, lethargic, arousable. is at bedside. Night was unremarkable. Not much cough. No sputum production, no chest pain. Has some abdominal discomfort. Has dark stool in the colostomy. No significant leg swelling. OBJECTIVE: GENERAL: In no acute distress. VITAL SIGNS: Temperature is 98, heart rate is 106, respiratory rate is 16, blood pressure 104/69, and pulse ox 95% on nasal cannula. HEENT: Moist mucous membranes. No ulcer or thrush noted. NECK: Supple. No JVD. LUNGS: Poor effort. Fair airflow. HEART: S1 and S2. ABDOMEN: Soft and nondistended. Colostomy bag has a dark stool. EXTREMITIES: There is no edema. NEUROLOGICAL: Sleepy, arousable. Follow simple command. MEDICATIONS: He is on Mucomyst inhaled twice a day, Atrovent 0.5 mg three times a day, verapamil 40 mg three times a day, Coreg 3.125 mg twice a day, aspirin 81 mg daily, insulin coverage, Lasix 20 mg IV twice a day, Levemir 30 units subcutaneously at bedtime, Lipitor 10 mg daily, meropenem 500 mg daily, Percocet 5/325 one tab every 6 hours p.r.n., Primacor IV drip, Proscar 5 mg daily, Protonix 40 mg daily, bicarbonate 650 mg three times a day, IV fluid normal saline 80 mL/hour, verapamil 2.5 mg every 6 hours p.r.n., Xopenex inhaled three times a day. LABORATORY DATA: Reviewed. INR today is 6.72. Blood sugar 175. IMPRESSION AND PLAN: Multiorgan failure with metastatic lung cancer, chronic lung disease, cardiomyopathy, milrinone dependent, renal failure, history of hemicolectomy, on anticoagulation. Spoke to nursing staff, spoke to the patient's at bedside. All the questions answered. We will give him vitamin K 2.5 mg subcutaneously one dose. Follow up INR and CBC tomorrow. Keep head elevated at 45 degrees. Aspiration precaution. The patient is do not resuscitate and do not intubate. Continue supportive care. Thank you and we will follow with you. Arabella Alva MD [facility] # [phone]
[2018-02-12] MEDS: Milrinone 20mg/100ml D5W 100 ML IV PRN (00:32)
[2018-02-12] MEDS: Pantoprazole 40 mg EC Tab PO SCH (06:56)
--- NOTE | 2018-02-12 06:56 | PN ---
DATE: 02/11/2018 HEMATOLOGY-ONCOLOGY PROGRESS NOTE REFERRING PHYSICIAN: Dexter Palacios MD LOCATION: The patient is in room 268, bed 2. SUBJECTIVE: The patient is lying in bed, lethargic, but arousable. Family is at the bedside. The patient does not have any significant coughing. No sputum production. No chest pain. Some abdominal discomfort. The patient has dark stool in the colostomy. No significant leg pain. The patient is on anticoagulation. INRs have been fluctuating very much because of liver dysfunction as well while on Coumadin and Coumadin dose is being titrated for INR. OBJECTIVE: GENERAL: The patient is in no acute distress. VITAL SIGNS: T-max is 98.4, heart rate is 106. respirations 16, blood pressure is 104/69, pulse ox is 95% on nasal cannula. HEENT: Reveals moist mucous membrane without any thrush or ulcerations on the tongue. NECK: Supple. There is no adenopathy. No jugular venous distention is noted. LUNGS: Examination of the lungs reveals fair airflow with scattered rhonchi. HEART: Reveals S1 and S2 to be normal. ABDOMEN: Soft, nondistended. Colostomy is functioning. The patient has dark stool. EXTREMITIES: Reveals no significant edema. NEUROLOGIC: The patient is sleepy, but arousable. Follows simple commands. MEDICATIONS: The patient's medications were reviewed. He is on Mucomyst inhaled twice a day, Atrovent 0.5 mg 3 times a day, verapamil 40 t.i.d., Coreg 3.125 twice a day, aspirin 81 mg daily, insulin coverage, Lasix 20 IV daily, Levemir 30 units subcu at bedtime. He is on Lipitor 10 mg daily, meropenem 500 mg daily, Percocet as needed for pain. He is on Primacor IV drip for his cardiac dysfunction, Proscar 5 mg daily, Protonix 40 mg daily, bicarbonate 650 mg 3 times a day. He is on IV fluids at 80 mL an hour, verapamil 2.5 mg every 6 hours. Today's INR is 6.72. Blood sugar is 175. ASSESSMENT, NOTES AND PLAN: The patient has metastatic lung cancer with documented liver metastasis, currently on no therapy. As far as lung cancer is concerned, the patient is being treated symptomatically. I have been involved in maintaining his hemoglobin with heme support with iron and Aranesp as needed, blood transfusion when indicated. The patient has multiorgan failure including lung and liver along with cardiomyopathy, milrinone dependent, renal failure, history of hemicolectomy or diverticular bleeding. In general, the patient is failing to thrive. I had a long discussion with the patient's son after I got the phone number from his . All questions asked by the son were answered to the best of my ability. I told the son that the patient's prognosis is poor at best. We will continue with treatment at this point in time. The patient was placed on aspiration precautions and he is a DNR/DNI. Continue to monitor the patient and this patient has a very poor prognosis. I spoke to the primary attending. Time spent with the patient including telephone conversation with the family more than 45 minutes. Please make a note, this is a comprehensive medical assessment in a patient with multiple comorbid medical issues. Dustin Samson MD
[2018-02-12] MEDS: Acetylcysteine 20% Inhal Soln (4ml) IH SCH ×2 (07:33→19:33)
[2018-02-12] MEDS: Ipratropium 0.02% Inhal Soln (0.5 mg/2.5 ml) UD IH SCH ×3 (07:34→19:34)
[2018-02-12] MEDS: Levalbuterol 0.63 MG/3 ML Inhal Soln UD IH SCH ×3 (07:34→19:34)
--- NOTE | 2018-02-12 07:47 | CP.PCM.PN ---
Subjective - Date & Time of Evaluation Date of Evaluation: 02/12/18 Time of Evaluation: 06:20 - Subjective Subjective: Open eyes to voice, no distress Reason for consultation and follow up: Cardiac evaluation for coronary artery disease,cardiomyopathy, admitted for hypotension,atrial fibrillation with rapid ventricular rate, worsening renal insufficiency Seen and examined by me and Dr. Lopez Objective - Vital Signs/Intake and Output Vital Signs (last 24 hours): Temp Pulse Resp BP Pulse Ox 98.8 F 76 19 125/75 92 L 02/12/18 06:00 02/12/18 06:00 02/12/18 06:00 02/12/18 06:00 02/12/18 06:00 Intake and Output: 02/12/18 02/12/18 06:59 18:59 Intake Total 100 Output Total 250 Balance -150 - Medications Medications: Current Medications Acetylcysteine (Acetylcysteine 20%) 3 ml IH BIDRESP [facility] Last Admin: 02/12/18 07:33 Dose: 3 ml Aspirin (Ecotrin) 81 mg PO DAILY [facility] Last Admin: 02/11/18 09:50 Dose: 81 mg Atorvastatin Calcium (Lipitor) 10 mg PO DAILY [facility] Last Admin: 02/11/18 09:51 Dose: 10 mg Carvedilol (Coreg) 3.125 mg PO BID [facility] Last Admin: 02/11/18 17:42 Dose: 3.125 mg Finasteride (Proscar) 5 mg PO DAILY [facility] Last Admin: 02/11/18 09:52 Dose: 5 mg Furosemide (Lasix) 20 mg IVP BID [facility] Last Admin: 02/11/18 17:44 Dose: 20 mg Milrinone Lactate/Dextrose (Primacor 20mg/100ml D5w) 100 mls @ 2.585 mls/hr IV .Q24H PRN; Protocol; 0.125 MCG/KG/MIN PRN Reason: TITRATE PER MD ORDER Last Admin: 02/12/18 00:32 Dose: 0.1 mcg/kg/min, 2.068 mls/hr Sodium Chloride (Sodium Chloride 0.9%) 1,000 mls @ 80 mls/hr IV .[id number] [facility] Last Admin: 02/04/18 23:45 Dose: 80 mls/hr Meropenem 500 mg/ Sodium (Chloride) 50 mls @ 100 mls/hr IVPB DAILY [facility] PRN Reason: Protocol Stop: 02/14/18 10:01 Last Admin: 02/11/18 09:51 Dose: 100 mls/hr Dextrose/Sodium Chloride (Dextrose 5%/0.45% Ns 1000 Ml) 1,000 mls @ 40 mls/hr IV .Q24H [facility] Last Admin: 02/11/18 17:43 Dose: 40 mls/hr Insulin Detemir (Levemir) 13 unit SC HS [facility] Insulin Human Lispro (Humalog Med) 0 units SC ACHS [facility] PRN Reason: Protocol Last Admin: 02/11/18 22:26 Dose: Not Given Ipratropium [place] (Atrovent) 0.5 mg IH TIDRESP [facility] Last Admin: 02/12/18 07:34 Dose: 0.5 mg Levalbuterol HCl (Xopenex) 0.63 mg IH TIDRESP [facility] Last Admin: 02/12/18 07:34 Dose: 0.63 mg Oxycodone/Acetaminophen (Percocet 5/325 Mg Tab) 1 tab PO Q4H PRN PRN Reason: Pain, moderate (4-7) Stop: 02/13/18 11:16 Pantoprazole Sodium (Protonix Ec Tab) 40 mg PO 0600 [facility] Last Admin: 02/12/18 06:56 Dose: 40 mg Sodium Bicarbonate (Sodium Bicarbonate Tab) 650 mg PO TID [facility] Last Admin: 02/11/18 17:44 Dose: 650 mg Verapamil HCl (Calan Tab) 40 mg PO TID [facility] Last Admin: 02/11/18 17:42 Dose: 40 mg Verapamil HCl (Verapamil Inj) 2.5 mg IVP Q6H PRN PRN Reason: for heart rate >130 - Labs Labs: 02/10/18 05:15 02/10/18 05:15 PT 80.4 SECONDS (9.4-12.5) H 02/11/18 06:30 INR 6.72 (0.93-1.08) H* 02/11/18 06:30 APTT 80.2 Seconds (25.1-36.5) H 02/09/18 05:45 - Constitutional Appears: No Acute Distress - Eye Exam Eye Exam: Normal appearance - ENT Exam ENT Exam: Mucous Membranes Moist - Respiratory Exam Respiratory Exam: Decreased Breath Sounds, NORMAL BREATHING PATTERN - Cardiovascular Exam Cardiovascular Exam: +S1, +S2 Additional comments: PPM - GI/Abdominal Exam GI & Abdominal Exam: Soft, Normal Bowel Sounds Additional comments: colostomy - Exam Additional comments: ken catheter - Neurological Exam Neurological Exam: Awake - Psychiatric Exam Psychiatric exam: Normal Affect - Skin Skin Exam: Dry, Warm Assessment and Plan - Assessment and Plan (Free Text) Assessment: A 72 year old male who was brought to the ER due to hypotension, rapid atrial fibrillation,history of CVA, lung CA (radiation), Atrial Fibrillation, coronary artery disease post PTCA, AICD, CHF, endocarditis, AAA, AVR, ischemic cardiomyopathy, coronary stents x 3, port to right upper chest, diabetes type 2 , metastatic liver disease and colostomy.Bed ridden.DNR/DNI. Plan: Stable cardiac status Continue Primacor drip Maintained on NSR DNR/DNI Pulmonary and Renal on consult On IV antibiotics per ID Continue current treatment Continue current medications On IV antibiotics Will follow up Plan and treatment discussed with Dr. Lopez
[2018-02-12 08:34] LABS: INR 4.06 (0.93-1.08)
[2018-02-12 08:50] LABS: CALCIUM 9.8 mg/dL (8.4-10.5)
[2018-02-12 08:53] LABS: HEMOGLOBIN 7.7 g/dL (14.0-18.0); MEAN CELL VOLUME 80.9 fl (80.0-105.0); MEAN CORPUSCULAR HEMOGLOBIN 26.7 pg (25.0-35.0); MEAN PLATELET VOLUME 9.2 fl (7.0-11.0); RBC 2.88 10^6/uL (3.5-6.1); WHITE BLOOD COUNT 21.2 10^3/ul (4.5-11.0)
[2018-02-12] MEDS: Insulin Lispro (humaLOG) MEDIUM Coverage SC SCH ×4 (08:54→21:52)
[2018-02-12] MEDS: Meropenem 500 MG in Sodium Chloride 0.9% 50 ML IVPB SCH (10:37)
--- NOTE | 2018-02-12 11:58 | PN ---
DATE: 02/12/2018 SUBJECTIVE: The patient is in bed, was seen earlier today, in no acute distress. He is responsive. He had an uneventful night. OBJECTIVE: VITAL SIGNS: Temperature is 98, blood pressure is 104/60, respiratory rate of 18, heart rate of 96. HEENT: Examination is unremarkable. NECK: Supple. LUNGS: Have decreased breath sounds. HEART: Normal S1, S2. ABDOMEN: Soft, nontender. DATA: Laboratory examination reveals a white count of 14,100, hemoglobin of 7.9, platelets of 316. Chemistries reveal a BUN of 137, creatinine of 6.9. Microbiology reveals Klebsiella species, pneumonia and yeast in the urine culture. The blood cultures had no growth at 5 days. The nasal MRSA screen is negative. Review of orders reveals the patient to be on meropenem. ASSESSMENT AND PLAN: This is a 72-year-old male admitted with severe sepsis with [id number] renal failure, multifocal healthcare-associated pneumonia, possible gram-positive cocci, possible gram-negative avis as well as an ESBL E. coli urinary tract infection with a complicated urinary tract infection with chronic Grimaldo catheter, day #7 of meropenem, today is the last day, would discontinue the meropenem after today's last dose in a patient with coronary artery disease, aortic aneurysm, history of urinary tract infection, bedridden, end-stage; consider a hospice setting for this end-stage patient. Walt Conner MD
[2018-02-12] MEDS ORDERED: Phytonadione 10 mg/ml Inj (Adult) SC ONE (12:07)
--- NOTE | 2018-02-12 13:17 | PN ---
DATE: 02/12/2018 SUBJECTIVE: The patient is seen lying in bed. He is awake. He is in mild respiratory distress. PHYSICAL EXAMINATION: VITAL SIGNS: Blood pressure 99/60, heart rate 110, respiratory rate 18-20, temperature 97.9. HEENT: Normocephalic, atraumatic, positive pallor. NECK: Supple, no JVD. LUNGS: Bilateral equal air entry, bilateral equal expansion, no rales appreciated anteriorly. CARDIAC: S1 and S2, regular rate and rhythm, no murmur, no rub. ABDOMEN: Soft, nondistended, nontender, positive colostomy. EXTREMITIES: No extremity edema. LABORATORY DATA: WBC 21, hemoglobin 7.7, hematocrit 23, platelets 385. Sodium 136, potassium 5, chloride 103, CO2 18, BUN 139, creatinine 7.1, glucose 199. MEDICATIONS: List reviewed. ASSESSMENT: 1. Acute kidney injury superimposed on chronic kidney disease, stage V. 2. Anion gap metabolic acidosis. 3. Severe anemia. 4. Leukocytosis/sepsis/pneumonia. 4. Noninsulin-dependent diabetes mellitus. 5. Hypertension. 6. Coronary artery disease, congestive heart failure, cardiomyopathy, decreased ejection fraction. PLAN: 1. Progressive renal insufficiency, worsening renal parameters. Borderline hyperkalemia. The patient is not a candidate for any kind of renal replacement therapy. Continue conservative management. 2. Continue antibiotics as per ID recommendations. 3. (?) blood transfusion. 4. Hospice eval. Kaylen Crump MD
--- NOTE | 2018-02-12 14:13 | PN ---
DATE: 02/12/2018 PULMONARY PROGRESS NOTE REFERRING PHYSICIAN: Dexter Palacios MD SUBJECTIVE: He is lying in the bed, much more awake and alert. is at the bedside, feeding him lunch. Still has a dark colored stool in the colostomy. No cough. No sputum production. No chest pain. No abdominal pain. No leg swelling. OBJECTIVE: GENERAL: In acute distress. VITAL SIGNS: Temperature is 98, heart rate is 110, respiratory rate is 20, blood pressure 132/67, pulse ox 92% on room air. HEENT: Moist mucous membrane. Crowded airway. NECK: Supple. No JVD. LUNGS: Scattered rhonchi and crackles. HEART: S1 and S2. ABDOMEN: Soft. Colostomy bag has some dark stool. EXTREMITIES: There is no edema. NEUROLOGIC: Awake, alert, and follows simple command. MEDICATIONS: He is on Mucomyst inhaled twice a day, Atrovent 0.5 mg three times a day, verapamil 40 mg three times a day, Coreg 3.125 mg twice a day, IV fluid D5 half-normal saline 40 mL/hour, Ecotrin 81 mg daily, insulin coverage, Lasix 20 mg IV twice a day, Levemir 30 units subcu at bedtime, Lipitor 10 mg daily, meropenem 500 mg daily, Percocet 5/325 one tablet every 4 hours p.r.n., Primacor IV drip, Proscar 5 mg daily, Protonix 40 mg daily, sodium bicarbonate 650 mg three times a day, verapamil IV p.r.n. basis, Xopenex inhaled three times a day. LABORATORY DATA: Shows hemoglobin 7.7, hematocrit 23.3, WBC 21,000, and platelets 385. Today's INR 4.06. Sodium 136, potassium 5, chloride 103, bicarbonate 18. BUN 139, creatinine 7.1. Glucose 199. Calcium is 9.8. IMPRESSION AND PLAN: Multiorgan failure with metastatic lung cancer, chronic lung disease, cardiomyopathy, milrinone dependent, renal failure, history of hemicolectomy, paroxysmal atrial fibrillation, on anticoagulation, iatrogenic coagulopathy, received vitamin K 2.5 mg yesterday. We will give another vitamin K dose 2.5 mg subcu today. H and H have been okay since yesterday. Blood pressure is okay. Spoke to the patient's at bedside. All the questions answered. CBC and INR in the morning. Bronchodilator. Continue milrinone. Follow up labs in the morning. Overall poor prognosis. Continue supportive care. Thank you and we will follow with you. Arabella Alva MD
[2018-02-12] MEDS: Dextrose 5%/0.45% NS 1,000 ML IV SCH (17:36)
[2018-02-12 19:00] LABS: BASO # 0.01 K/mm3 (0.0-2.0); BASO % 0.1 % (0.0-3.0); EOS # 0.1 (0.0-0.7); EOS % 0.5 % (1.5-5.0); GRAN # 18.15 (1.4-6.5); GRAN % 91.3 % (50.0-68.0); HEMOGLOBIN 7.4 g/dL (14.0-18.0); LYMPH # 0.9 (1.2-3.4); LYMPH % 4.7 % (22.0-35.0); MEAN CELL VOLUME 81.6 fl (80.0-105.0); MEAN CORPUSCULAR HEMOGLOBIN 26.2 pg (25.0-35.0); MEAN CORPUSCULAR HGB CONC 32.2 g/dl (31.0-37.0); MEAN PLATELET VOLUME 9.4 fl (7.0-11.0); MONO # 0.7 (0.1-0.6); MONO % 3.4 % (1.0-6.0); PLATELET COUNT 401 10^3/uL (120.0-450.0); RBC 2.82 10^6/uL (3.5-6.1); RED CELL DISTRIBUTION WIDTH 18.2 % (11.5-14.5); WHITE BLOOD COUNT 19.9 10^3/ul (4.5-11.0)
[2018-02-12 19:23] LABS: INR 3.09 (0.93-1.08)
--- NOTE | 2018-02-12 20:27 | CP.PCM.PN ---
Subjective - Date & Time of Evaluation Date of Evaluation: 02/12/18 Time of Evaluation: 20:27 - Subjective Subjective: Received call from nursing staff stating patient was O2 saturation was 70% on room air. Went to evaluate patient, vitals were noted to be stable. Patient was placed on non rebreather while awaiting BiPAP. Patient was also noted to be hypotensive at the time. With patient's history of Systolic CHF and poor EF, fluids were held. Patient was placed on BiPAP, blood pressure improved and O2 saturation increased to 93%. Patient is to remain on BiPAP overnight. Objective - Vital Signs/Intake and Output Vital Signs (last 24 hours): Temp Pulse Resp BP Pulse Ox 98.2 F 106 H 18 89/61 L 94 L 02/12/18 18:00 02/12/18 18:00 02/12/18 18:00 02/12/18 18:00 02/12/18 18:00 - Medications Medications: Current Medications Acetylcysteine (Acetylcysteine 20%) 3 ml IH BIDRESP [facility] Last Admin: 02/12/18 19:33 Dose: 3 ml Aspirin (Ecotrin) 81 mg PO DAILY [facility] Last Admin: 02/12/18 10:36 Dose: 81 mg Atorvastatin Calcium (Lipitor) 10 mg PO DAILY [facility] Last Admin: 02/12/18 10:36 Dose: 10 mg Carvedilol (Coreg) 3.125 mg PO BID [facility] Last Admin: 02/12/18 17:45 Dose: 3.125 mg Finasteride (Proscar) 5 mg PO DAILY [facility] Last Admin: 02/12/18 10:36 Dose: 5 mg Furosemide (Lasix) 20 mg IVP BID [facility] Last Admin: 02/12/18 17:43 Dose: 20 mg Milrinone Lactate/Dextrose (Primacor 20mg/100ml D5w) 100 mls @ 2.585 mls/hr IV .Q24H PRN; Protocol; 0.125 MCG/KG/MIN PRN Reason: TITRATE PER MD ORDER Last Admin: 02/12/18 00:32 Dose: 0.1 mcg/kg/min, 2.068 mls/hr Sodium Chloride (Sodium Chloride 0.9%) 1,000 mls @ 80 mls/hr IV .[id number] [facility] Last Admin: 02/04/18 23:45 Dose: 80 mls/hr Meropenem 500 mg/ Sodium (Chloride) 50 mls @ 100 mls/hr IVPB DAILY [facility] PRN Reason: Protocol Stop: 02/14/18 10:01 Last Admin: 02/12/18 10:37 Dose: 100 mls/hr Dextrose/Sodium Chloride (Dextrose 5%/0.45% Ns 1000 Ml) 1,000 mls @ 40 mls/hr IV .Q24H [facility] Last Admin: 02/12/18 17:36 Dose: 40 mls/hr Insulin Detemir (Levemir) 13 unit SC HS [facility] Insulin Human Lispro (Humalog Med) 0 units SC ACHS [facility] PRN Reason: Protocol Last Admin: 02/12/18 17:37 Dose: 3 unit Ipratropium [place] (Atrovent) 0.5 mg IH TIDRESP [facility] Last Admin: 02/12/18 19:34 Dose: 0.5 mg Levalbuterol HCl (Xopenex) 0.63 mg IH TIDRESP [facility] Last Admin: 02/12/18 19:34 Dose: 0.63 mg Oxycodone/Acetaminophen (Percocet 5/325 Mg Tab) 1 tab PO Q4H PRN PRN Reason: Pain, moderate (4-7) Stop: 02/13/18 11:16 Last Admin: 02/12/18 13:33 Dose: 1 tab Pantoprazole Sodium (Protonix Ec Tab) 40 mg PO 0600 [facility] Last Admin: 02/12/18 06:56 Dose: 40 mg Sodium Bicarbonate (Sodium Bicarbonate Tab) 650 mg PO TID [facility] Last Admin: 02/12/18 17:44 Dose: 650 mg Verapamil HCl (Calan Tab) 40 mg PO TID [facility] Last Admin: 02/12/18 17:45 Dose: 40 mg Verapamil HCl (Verapamil Inj) 2.5 mg IVP Q6H PRN PRN Reason: for heart rate >130 - Labs Labs: 02/12/18 18:14 02/12/18 08:30 PT 36.0 SECONDS (9.4-12.5) H 02/12/18 18:14 INR 3.09 (0.93-1.08) H 02/12/18 18:14 APTT 80.2 Seconds (25.1-36.5) H 02/09/18 05:45
[2018-02-12 22:47] LABS: BAND 1 % (0-2); LYMPHOCYTE 6 % (22.0-35.0); MONOCYTE 1 % (1.0-6.0); NEUTROPHIL 92 % (50.0-70.0); PLATELET ESTIMATE NORMAL (NORMAL)
[2018-02-12 22:48] LABS: HYPOCHROMIA 1+; OVALOCYTES SLIGHT; SPHEROCYTE SLIGHT
--- NOTE | 2018-02-12 23:03 | PN ---
DATE: 02/12/2018 SUBJECTIVE: The patient was seen, was next to the bedside. Still has some stool-tinge in the colostomy bag. The patient has no respiratory distress. He does complain of right upper quadrant pain. The patient has poor p.o. intake. PHYSICAL EXAMINATION: VITAL SIGNS: Today, temperature is 98, heart rate 110, blood pressure is 103/59, respirations 18. HEAD AND NECK: Normal. No JVD. No thyromegaly. CHEST: Clear bilateral. CARDIAC: First sound and second sound normal. Systolic murmur. ABDOMEN: There is a colostomy bag with stool-tinged blood. EXTREMITIES: No edema. NEUROLOGIC: The patient is mildly lethargic, seems mildly depressed and both legs are very weak, paraplegic. LABORATORY STUDY: White count 21.2, hemoglobin 7.7, hematocrit 23.3, and platelets 385. Chemistry: Sodium 136, potassium 5, chloride 103, bicarb 18. BUN 139, creatinine 7.1. Blood sugar 199. Calcium 9.8. IMPRESSION AND PLAN: 1. Lung cancer with liver metastasis, advanced cancer, stage IV. Supportive care. Abnormal liver function test due to liver metastasis. 2. Chronic kidney disease, stage 4 with acute worsening due to poor cardiac and poor p.o. intake. Continue IV fluids. Continue IV milrinone. 3. Anemia, iron deficiency plus multifactorial. The patient has blood-tinged stool. We will give vitamin K. No Coumadin and monitor hemoglobin and hematocrit. We will repeat lab in the morning. 4. Lung cancer, aspiration pneumonia. We will give Ensure as tolerated. The patient is do not resuscitate and do not intubate. Discussed with the family supportive care, his advanced disease and comfort care. Dexter Palacios MD
--- NOTE | 2018-02-12 23:19 | PN ---
DATE: 02/11/2018 SUBJECTIVE: The patient is not eating much, he only drinks Ensure, otherwise not eating much. The patient has no chest pain. He only complained of right upper quadrant pain. No respiratory distress. Seems comfortable than yesterday. PHYSICAL EXAMINATION: On 02/11/2018 is as follows: VITAL SIGNS: Temperature is 98, heart rate 95, blood pressure is 114/69, respirations 20, sat 100%. HEAD AND NECK: Normal. No JVD. No thyromegaly. CHEST: Clear bilateral. CARDIAC: First sound and second sound normal. No murmur, rub or gallop. ABDOMEN: Soft. There is a colostomy bag with some tinge of blood stool. EXTREMITIES: No edema. NEUROLOGIC: The patient is bedridden and paraplegic and generally weak. LABORATORY DATA: Will be ordered for tomorrow, noted only for blood sugar 260 range. IMPRESSION AND PLAN: 1. Lung cancer with liver metastasis, advanced lung cancer stage IV. Supportive care. 2. Acute renal failure on top of chronic kidney disease stage IV. 3. Anemia, iron deficiency and multifactorial, plus gastrointestinal bleed. 4. Pneumonia, bilateral aspiration pneumonia. Continue IV antibiotic. 5. Poor p.o. intake. We will give IV fluid with D5W. We will control his sugar, we will increase his insulin if needed. 6. Coagulopathy. Coumadin discontinued and now off Coumadin. Vitamin K was given. 7. Abdominal pain. Continue oxycodone every 4 hours p.r.n. Continue current therapy. Dexter Palacios MD
--- NOTE | 2018-02-13 03:14 | PN ---
DATE: 02/12/2018 ONCOLOGY PROGRESS NOTE LOCATION: The patient is in room 268, bed 2. REFERRING DOCTOR: Dexter Palacios MD SUBJECTIVE: The patient is lying in bed, more awake and alert. He is eating. His is feeding him. Still has dark stool in his colostomy. Denies any history of cough, sputum production, chest pain, abdominal pain or leg swelling. No fevers. No sweats. PHYSICAL EXAMINATION: GENERAL: Patient is in no acute distress. Patient is examined in bed. VITAL SIGNS: Stable. T-max is 98.4, heart rate is 110, respirations 20, blood pressure is 132/67, pulse ox is 92% on room air. HEENT: Head is normocephalic, atraumatic. Crowded airways are noted. Tongue is moist. No ulcerations are noted. NECK: Supple. No jugular venous distension is noted. No adenopathy is noted. LUNGS: Reveals bilateral wheezes and rhonchi with crackles at the bases. HEART: Reveals S1 and S2 to be normal. No gallop or murmur is heard. ABDOMEN: Soft. Patient has colostomy bag with dark stool. EXTREMITIES: Reveals no cyanosis or edema. NEUROLOGIC: Reveals higher functions to be normal. No focal deficits are noted. MEDICATIONS: Reviewed, they are unchanged at this time, still on multiple bronchodilators along with mucolytic agents. LABORATORY DATA: Today reveals hemoglobin of 7.7, hematocrit 23, white count is 21,000, platelet count is 385. Today's INR is 4.06. Sodium is 136, K is 5, chloride is 103, bicarbonate is 18, BUN is 139, creatinine 7.1. Glucose is 199. Calcium is 9.8. ASSESSMENT, NOTES AND PLAN: Patient has multiorgan failure, documented history of lung cancer with liver metastasis. INR is prolonged because of multiplicity of medical issues. Patient has chronic lung disease, cardiomyopathy, milrinone dependent, renal failure, history of hemicolectomy, paroxysmal atrial fibrillation on anticoagulation, iatrogenic coagulopathy, received vitamin K 2.5 mg yesterday. Patient will receive another dose of 2.5 subcutaneously today as the INR is still prolonged. Hemoglobin and hematocrit have been holding since yesterday. Blood pressure has been holding. CBC and INR for a.m. have been requested at this time. We will continue to monitor the INR. Coumadin is on hold at this time. We would advise the patient to be probably getting just low doses of Coumadin, getting 1 mg and 2 mg so that the INR does not fluctuate while it has been happening recently. Continue the milrinone drip. Overall prognosis is guarded. Spoken to the patient's son at great length two days ago regarding the patient's overall prognosis. Thanking you for allowing me to participate in the management of this patient. Time spent with the patient is greater than 30 minutes. Dustin Samson MD
[2018-02-13] MEDS: Pantoprazole 40 mg EC Tab PO SCH (06:20)
[2018-02-13 07:10] LABS: HEMOGLOBIN 7.7 g/dL (14.0-18.0); MEAN CELL VOLUME 80.3 fl (80.0-105.0); MEAN CORPUSCULAR HEMOGLOBIN 26.1 pg (25.0-35.0); MEAN CORPUSCULAR HGB CONC 32.5 g/dl (31.0-37.0); MEAN PLATELET VOLUME 9.3 fl (7.0-11.0); RBC 2.95 10^6/uL (3.5-6.1); RED CELL DISTRIBUTION WIDTH 17.8 % (11.5-14.5)
[2018-02-13] MEDS: Ipratropium 0.02% Inhal Soln (0.5 mg/2.5 ml) UD IH SCH ×3 (07:34→20:00)
[2018-02-13] MEDS: Levalbuterol 0.63 MG/3 ML Inhal Soln UD IH SCH ×3 (07:34→20:00)
[2018-02-13] MEDS: Acetylcysteine 20% Inhal Soln (4ml) IH SCH ×2 (07:35→19:59)
[2018-02-13 07:36] LABS: WHITE BLOOD COUNT 36.9 10^3/ul (4.5-11.0)
[2018-02-13 07:39] LABS: INR 2.71 (0.93-1.08); PROTHROMBIN TIME 31.8 SECONDS (9.4-12.5)
[2018-02-13] MEDS: Insulin Lispro (humaLOG) MEDIUM Coverage SC SCH ×4 (08:24→22:03)
[2018-02-13] MEDS: Meropenem 500 MG in Sodium Chloride 0.9% 50 ML IVPB SCH (09:45)
--- NOTE | 2018-02-13 14:13 | PN ---
DATE: 02/13/2018 SUBJECTIVE: The patient is seen lying in bed. He is awake, he is alert, but lethargic. PHYSICAL EXAMINATION: GENERAL: Elderly male lying in bed. VITAL SIGNS: Blood pressure 112/66, heart rate 110, respiratory rate 20, temperature 97.7. HEENT: Normocephalic, atraumatic. Positive pallor. NECK: Supple. No JVD. LUNGS: Bilateral equal entry, bilateral equal expansion, no rales. CARDIAC: S1, S2. Regular rate and rhythm. No murmur, no rub. ABDOMEN: Obese, distended, soft, positive colostomy, bowel sounds present. EXTREMITIES: No extremity edema. INTAKE AND OUTPUT: Not charted . LABORATORY DATA: WBC 92162, hemoglobin 7.7, hematocrit 24, platelets 404. Sodium 136, potassium 5. There is no chemistry today. CURRENT MEDICATIONS: Atrovent, [place], Coreg, D5 half-normal saline at 40, Ecotrin, Humalog insulin, Lasix 20 IV every 12 hours, Levemir, Lipitor, meropenem 500 daily, milrinone, sodium bicarbonate, verapamil. None of the ordered medications have been given today because the patient is n.p.o. ASSESSMENT AND PLAN: 1. Severe acute anemia. 2. Coagulopathy. 3. Acute kidney injury superimposed on chronic kidney disease stage V. 4. Severe cardiomyopathy, congestive heart failure, decreased ejection fraction. 6. Fmg-axzaomh-dvijbyslb diabetes mellitus. 7. Hypertension, but currently hypotensive. 8. History of lung cancer with liver metastasis. 9. History of colostomy. PLAN: 1. The patient is scheduled for CAT scan today. 2. Continue to hold anticoagulation, agree with vitamin K. 3. P.r.n. transfusions. 4. Comfort care. 5. DNR/DNI noted. 6. No plans for renal replacement therapy. 7. Recommend hospice evaluation. Kaylen Crump MD
[2018-02-13] MEDS: Morphine 2 mg/ml ISec IVP PRN ×2 (14:29→22:02)
--- NOTE | 2018-02-13 15:26 | CT ---
Date of service: 02/13/2018 PROCEDURE: CT Abdomen and Pelvis without intravenous contrast HISTORY: dark stool COMPARISON: 02/05/2018 TECHNIQUE: Without contrast.. Contrast dose: Radiation dose: Total exam DLP = 452 mGy-cm. This CT exam was performed using one or more of the following dose reduction techniques: Automated exposure control, adjustment of the mA and/or kV according to patient size, and/or use of iterative reconstruction technique. FINDINGS: LOWER THORAX: There is dense consolidation in the right lower lobe consistent with pneumonia. There is a small pneumothorax. LIVER: There is a 3.3 cm hypodense lesion in the posterior right lobe of the liver suspicious for a malignant lesion. This has increased in size compared to the study dated 11/28/2017 GALLBLADDER AND BILE DUCTS: Unremarkable. PANCREAS: Unremarkable. No gross lesion or ductal dilatation. SPLEEN: Unremarkable. ADRENALS: Unremarkable. No mass. KIDNEYS AND URETERS: Unremarkable. No hydronephrosis. No solid mass. VASCULATURE: There is an abdominal aortic aneurysm containing a stent graft. This measures 8 x 8.3 cm. This is not significantly changed. BOWEL: There is an ostomy in the right lower quadrant APPENDIX: Not visible PERITONEUM: Unremarkable. No free fluid. No free air. LYMPH NODES: Unremarkable. No enlarged lymph nodes. BLADDER: Unremarkable. REPRODUCTIVE: Unremarkable. BONES: No acute fracture. OTHER FINDINGS: I spoke to the patient's nurse Aye regarding the finding of pneumothorax at 3:20 p.m. 02/13/2018. IMPRESSION: Dense consolidation in the right lower lobe consistent with pneumonia. Small pneumothorax at right lung base No change in abdominal aortic aneurysm Increased size of mass in right lobe of the liver
[2018-02-13] MEDS ORDERED: Vancomycin 1gm in NS 250ml 1 GM/250 ML BAG IVPB STA (15:44)
--- NOTE | 2018-02-13 15:47 | CP.PCM.PN ---
Subjective - Date & Time of Evaluation Date of Evaluation: 02/13/18 Time of Evaluation: 11:30 - Subjective Subjective: Still on BiPAP, no fevers, but still weak-looking, has some loose stools in the colostomy bag. Objective - Vital Signs/Intake and Output Vital Signs (last 24 hours): Temp Pulse Resp BP Pulse Ox 97.7 F 110 H 19 112/66 95 02/13/18 05:54 02/13/18 10:01 02/13/18 05:54 02/13/18 10:01 02/13/18 05:54 Intake and Output: 02/13/18 02/13/18 06:59 18:59 Intake Total 25 Output Total 250 Balance 25 -250 - Medications Medications: Current Medications Acetylcysteine (Acetylcysteine 20%) 3 ml IH BIDRESP [facility] Last Admin: 02/13/18 07:35 Dose: 3 ml Aspirin (Ecotrin) 81 mg PO DAILY [facility] Last Admin: 02/13/18 09:56 Dose: Not Given Atorvastatin Calcium (Lipitor) 10 mg PO DAILY [facility] Last Admin: 02/13/18 09:56 Dose: Not Given Carvedilol (Coreg) 3.125 mg PO BID [facility] Last Admin: 02/13/18 09:56 Dose: Not Given Finasteride (Proscar) 5 mg PO DAILY [facility] Last Admin: 02/13/18 09:56 Dose: Not Given Furosemide (Lasix) 20 mg IVP BID [facility] Last Admin: 02/13/18 09:45 Dose: 20 mg Milrinone Lactate/Dextrose (Primacor 20mg/100ml D5w) 100 mls @ 2.585 mls/hr IV .Q24H PRN; Protocol; 0.125 MCG/KG/MIN PRN Reason: TITRATE PER MD ORDER Last Admin: 02/12/18 00:32 Dose: 0.1 mcg/kg/min, 2.068 mls/hr Sodium Chloride (Sodium Chloride 0.9%) 1,000 mls @ 80 mls/hr IV .[id number] [facility] Last Admin: 02/04/18 23:45 Dose: 80 mls/hr Meropenem 500 mg/ Sodium (Chloride) 50 mls @ 100 mls/hr IVPB DAILY [facility] PRN Reason: Protocol Stop: 02/14/18 10:01 Last Admin: 02/13/18 09:45 Dose: 100 mls/hr Dextrose/Sodium Chloride (Dextrose 5%/0.45% Ns 1000 Ml) 1,000 mls @ 40 mls/hr IV .Q24H [facility] Last Admin: 02/12/18 17:36 Dose: 40 mls/hr Insulin Detemir (Levemir) 13 unit SC HS [facility] Insulin Human Lispro (Humalog Med) 0 units SC ACHS [facility] PRN Reason: Protocol Last Admin: 02/13/18 08:24 Dose: 3 unit Ipratropium [place] (Atrovent) 0.5 mg IH TIDRESP [facility] Last Admin: 02/13/18 07:34 Dose: 0.5 mg Levalbuterol HCl (Xopenex) 0.63 mg IH TIDRESP [facility] Last Admin: 02/13/18 07:34 Dose: 0.63 mg Oxycodone/Acetaminophen (Percocet 5/325 Mg Tab) 1 tab PO Q4H PRN PRN Reason: Pain, moderate (4-7) Stop: 02/13/18 11:16 Last Admin: 02/12/18 13:33 Dose: 1 tab Pantoprazole Sodium (Protonix Ec Tab) 40 mg PO 0600 [facility] Last Admin: 02/13/18 06:20 Dose: Not Given Sodium Bicarbonate (Sodium Bicarbonate Tab) 650 mg PO TID [facility] Last Admin: 02/13/18 09:56 Dose: Not Given Verapamil HCl (Calan Tab) 40 mg PO TID [facility] Last Admin: 02/13/18 09:56 Dose: Not Given Verapamil HCl (Verapamil Inj) 2.5 mg IVP Q6H PRN PRN Reason: for heart rate >130 Last Admin: 02/13/18 10:01 Dose: 2.5 mg - Labs Labs: 02/13/18 06:30 02/12/18 08:30 PT 31.8 SECONDS (9.4-12.5) H 02/13/18 06:30 INR 2.71 (0.93-1.08) H 02/13/18 06:30 APTT 80.2 Seconds (25.1-36.5) H 02/09/18 05:45 - Constitutional Appears: Chronically Ill - Head Exam Head Exam: NORMAL INSPECTION - Neck Exam Neck Exam: absent: Meningismus - Respiratory Exam Respiratory Exam: Decreased Breath Sounds Additional comments: right sided port in place - Cardiovascular Exam Cardiovascular Exam: +S1, +S2 - GI/Abdominal Exam GI & Abdominal Exam: Soft. absent: Tenderness Assessment and Plan - Assessment and Plan (Free Text) Plan: Assessment severe sepsis with acute on chronic renal failure due to multifocal healthcare- associated pneumonia with possible gram negative bacilli as well as ESBL E. coli complicated UTI (with chronic Grimaldo catheter use) - increasing leukocytosis , R/O new onset sepsis history of complicated UTI with Grimaldo catheter from multidrug-resistant ESBL- producing Klebsiella, on top of HCAP chronic CHF S/P UTI with ESBL Klebsiella and Proteus history of sepsis due to left upper lobe healthcare-associated pneumonia, probably atypical history of severe sepsis due to ESBL E. coli bacteremia, unclear source history of sepsis due to right sided healthcare-associated pneumonia history of UTI with carbapenem-resistant Klebsiella history of ESBL-producing Klebsiella bacteremia, secondary to the port S/P removal S/P treatment for healthcare-associated pneumonia history of C diff associated diarrhea history of UTI with yeast history healthcare-associated pneumonia Severe cardiomyopathy with EF 10-15 % paroxysmal atrial fibrillation Coronary artery disease S/P stenting history of aortic aneurysm history of SVT S/P AICD placement S/P procedure on his prostate in 2012 S/P partial colectomy and colostomy Plan continue Merrem day 8 and will give a dose of IV Vancomycin and will repeat blood and urine cx; will also order stool for C. diff. we also ordered CT A/P overall prognosis is poor
--- NOTE | 2018-02-13 18:21 | CP.PCM.PN ---
Subjective - Date & Time of Evaluation Date of Evaluation: 02/13/18 Time of Evaluation: 18:12 - Subjective Subjective: Miranda Alberto, PGY2, Heme-Onc Progress Note for Dr Samson: Patient seen and examined at bedside. Patient had an episode of low O2 saturation and hypotension overnight, placed on bipap. Patient currently on bipap, at bedside. Patient appears weak. ROS limited due to bipap/weakness. Objective - Vital Signs/Intake and Output Vital Signs (last 24 hours): Temp Pulse Resp BP Pulse Ox 98.1 F 114 H 18 190/68 H 95 02/13/18 17:30 02/13/18 17:30 02/13/18 17:30 02/13/18 17:30 02/13/18 05:54 Intake and Output: 02/13/18 02/13/18 06:59 18:59 Intake Total 25 Output Total 250 Balance 25 -250 - Medications Medications: Current Medications Acetylcysteine (Acetylcysteine 20%) 3 ml IH BIDRESP [facility] Last Admin: 02/13/18 07:35 Dose: 3 ml Aspirin (Ecotrin) 81 mg PO DAILY [facility] Last Admin: 02/13/18 09:56 Dose: Not Given Atorvastatin Calcium (Lipitor) 10 mg PO DAILY [facility] Last Admin: 02/13/18 09:56 Dose: Not Given Finasteride (Proscar) 5 mg PO DAILY [facility] Last Admin: 02/13/18 09:56 Dose: Not Given Furosemide (Lasix) 20 mg IVP BID [facility] Last Admin: 02/13/18 17:18 Dose: 20 mg Milrinone Lactate/Dextrose (Primacor 20mg/100ml D5w) 100 mls @ 2.585 mls/hr IV .Q24H PRN; Protocol; 0.125 MCG/KG/MIN PRN Reason: TITRATE PER MD ORDER Last Admin: 02/12/18 00:32 Dose: 0.1 mcg/kg/min, 2.068 mls/hr Sodium Chloride (Sodium Chloride 0.9%) 1,000 mls @ 80 mls/hr IV .[id number] [facility] Last Admin: 02/04/18 23:45 Dose: 80 mls/hr Meropenem 500 mg/ Sodium (Chloride) 50 mls @ 100 mls/hr IVPB DAILY [facility] PRN Reason: Protocol Stop: 02/14/18 10:01 Last Admin: 02/13/18 09:45 Dose: 100 mls/hr Dextrose/Sodium Chloride (Dextrose 5%/0.45% Ns 1000 Ml) 1,000 mls @ 40 mls/hr IV .Q24H [facility] Last Admin: 02/12/18 17:36 Dose: 40 mls/hr Insulin Detemir (Levemir) 13 unit SC HS [facility] Insulin Human Lispro (Humalog Med) 0 units SC ACHS [facility] PRN Reason: Protocol Last Admin: 02/13/18 16:56 Dose: Not Given Ipratropium [place] (Atrovent) 0.5 mg IH TIDRESP [facility] Last Admin: 02/13/18 14:14 Dose: 0.5 mg Levalbuterol HCl (Xopenex) 0.63 mg IH TIDRESP [facility] Last Admin: 02/13/18 14:14 Dose: 0.63 mg Morphine Sulfate (Morphine) 2 mg IVP Q4H PRN PRN Reason: Pain, moderate (4-7) Last Admin: 02/13/18 14:29 Dose: 2 mg Pantoprazole Sodium (Protonix Ec Tab) 40 mg PO 0600 [facility] Last Admin: 02/13/18 06:20 Dose: Not Given Sodium Bicarbonate (Sodium Bicarbonate Tab) 650 mg PO TID [facility] Last Admin: 02/13/18 17:42 Dose: Not Given Verapamil HCl (Calan Tab) 40 mg PO TID [facility] Last Admin: 02/13/18 17:15 Dose: Not Given Verapamil HCl (Verapamil Inj) 2.5 mg IVP Q6H PRN PRN Reason: for heart rate >130 Last Admin: 02/13/18 10:01 Dose: 2.5 mg - Labs Labs: 02/13/18 06:30 02/12/18 08:30 PT 31.8 SECONDS (9.4-12.5) H 02/13/18 06:30 INR 2.71 (0.93-1.08) H 02/13/18 06:30 APTT 80.2 Seconds (25.1-36.5) H 02/09/18 05:45 - Constitutional Appears: Toxic, Older Than Stated Age, Cachectic, Chronically Ill - Head Exam Head Exam: ATRAUMATIC, NORMOCEPHALIC - Eye Exam Eye Exam: EOMI, PERRL. absent: Conjunctival injection, Nystagmus, Scleral icterus Pupil Exam: NORMAL ACCOMODATION, PERRL. absent: Miosis, Mydriatic, Unequal - ENT Exam ENT Exam: Mucous Membranes Moist - Neck Exam Neck Exam: Full ROM - Respiratory Exam Respiratory Exam: Decreased Breath Sounds - Cardiovascular Exam Cardiovascular Exam: RRR, +S1, +S2. absent: Murmur - GI/Abdominal Exam GI & Abdominal Exam: Soft, Normal Bowel Sounds. 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 Patient found to be severe sepsis, MODS, [place], HCAP, ESBL E.coli complicated UTI, supratherapeutic INR. Overnight, patient also developed respiratory distress, hypotension, patient having worsening leukocytosis this AM, weakness. Heme-Onc consulted for anemia, liver mets: - May give 1 unit prbcs. will give EPO as needed. blood consent in chart. - C/w IV abx. repeat blood, urine cultures per ID - CT abd pelvis today showed worsening of liver mass, right sided pneumothorax - DNR/DNI. - if needed, can resume patient's coumadin 1 mg, or 2 mg daily. Please weight risks/benefits, proceed as per primary - guarded prognosis Case and plan were reviewed and discussed with attending physician Dr. Samson
--- NOTE | 2018-02-13 19:08 | PN ---
DATE: 02/13/2018 REASON FOR THE CONSULTATION AND FOLLOWUP: Coronary artery disease; cardiomyopathy, ischemic. Admitted with hypoglycemia and hypotension, cardiac evaluation, AFib with rapid ventricular rate, worsening renal insufficiency. SUBJECTIVE: The patient denies any chest pain, shortness of breath, or any palpitation. OBJECTIVE: GENERAL: Lying flat in the bed, not in apparent distress. VITAL SIGNS: Temperature afebrile, heart rate 114, blood pressure 128/69. HEENT: PERRLA. Extraocular muscles intact. NECK: Supple. No carotid bruit. No thyromegaly. CHEST: Clear to auscultation. HEART: S1 and S2, regular. ABDOMEN: Soft. EXTREMITIES: Clubbing and cyanosis negative. LABORATORY DATA: Blood workup as follows: WBC 36.9, hemoglobin , hematocrit 30.7, and platelet count 144. Chemistry shows sodium 135, potassium 5, chloride 103, carbon dioxide 18, anion gap of 20. BUN 139, creatinine 7.1. IMPRESSION: A 72-year-old male with past medical history significant for coronary artery disease, status post percutaneous transluminal coronary angioplasty of left anterior descending artery, ischemic cardiomyopathy, atrial fibrillation paroxysmal, renal insufficiency, diabetes, endovascular stent, abdominal aortic aneurysm, cancer of lung, status post radiation, came in with hypoglycemia, hypotension, atrial fibrillation with moderate rate, urinary tract infection, sepsis, acute kidney injury, further dialysis because cannot tolerate as per loan manager. The patient's condition is critical. History of diverticular colonic disease, status post colostomy. Bedridden, bedbound, code status DNR. RECOMMENDATIONS: Continue supportive care. Continue Primacor. The patient is on home Primacor for ischemic cardiomyopathy. Continue Coreg. Continue verapamil. For low blood pressure, we will discontinue Coreg and continue to control the heart rate with verapamil. Overall, the patient's condition is critical. Long-term prognosis is guarded. We will discontinue Coreg and continue verapamil, increase to four times if the heart rate is not controlled. For now, we will continue 40 mg p.o. t.i.d. We will follow with you. Thank you, Dr. Palacios, for providing us the opportunity in taking care of the patient, [place]. Arabella Mathews MD [facility] # [id number]
[2018-02-13] MEDS ORDERED: Phytonadione 10 mg/ml Inj (Adult) SC ONE (23:40)
[2018-02-14] MEDS: Milrinone 20mg/100ml D5W 100 ML IV PRN (03:04)
--- NOTE | 2018-02-14 03:39 | PN ---
DATE: 02/13/2018 REFERRING PHYSICIAN: Dexter Palacios MD SUBJECTIVE: He is lethargic, on noninvasive ventilation. Overnight events noted. Has abdominal pain, dark stool. Not much cough. No sputum production, short of breath. No leg pain or leg swelling. OBJECTIVE: GENERAL: Acute distress, on noninvasive ventilation. VITAL SIGNS: Afebrile, heart rate is 120, respiratory rate is 20, blood pressure 114/67, pulse ox 98% on noninvasive ventilation and BiPAP with 100% oxygen. HEENT: . NECK: Supple. No JVD. LUNGS: Scattered rhonchi. HEART: S1, S2. ABDOMEN: Positive bowel sounds. Tender. Colostomy has a dark stool. NEUROLOGIC: Lethargic, arousable. MEDICATIONS: He is on Mucomyst 3 mL inhaled twice a day, Atrovent 0.5 mg three times a day, IV fluid D5 half normal saline 40 mL/hour, Ecotrin 81 mg daily which is on hold, Lasix 20 mg twice a day, Levemir units subcu at bedtime, meropenem 500 mg daily, morphine 2 mg every 4 hours p.r.n. He is on IV Primacor, Proscar 5 mg daily, Protonix 40 mg daily, sodium bicarbonate 650 mg three times a day, Xopenex inhaled every 8 hourly. LABORATORY DATA: Shows hemoglobin 7.7, hematocrit 23.7, WBC 37,000, platelet is 404. INR today 2.71. Blood sugar was 187. Urine culture has Klebsiella pneumoniae. He has a CT of the abdomen done today which shows pneumothorax, dense consolidation of the right lower lobe consistent with pneumonia, small pneumothorax in the right lung base. No change in the abdominal aortic aneurysm, increase in size of the mass of the right lobe of the liver. IMPRESSION AND PLAN: Multiorgan failure, metastatic lung cancer, metastases to the liver, respiratory failure requiring noninvasive ventilation, chronic lung disease and a pneumothorax, history of colectomy, gastrointestinal bleed, coagulopathy, anemia. Spoke to the patient's at bedside. All the questions answered. Also spoke to the patient's son, spoke to respiratory therapist. The patient is do not resuscitate and do not intubate. Continue supportive care. Keep him comfortable. For now, continue noninvasive ventilation, morphine on p.r.n. basis. Overall poor prognosis. Thank you and we will follow with you. Arabella Alva MD [facility] # [id number]
[2018-02-14] MEDS: Pantoprazole 40 mg EC Tab PO SCH (07:41)
[2018-02-14] MEDS: Ipratropium 0.02% Inhal Soln (0.5 mg/2.5 ml) UD IH SCH ×3 (07:55→21:15)
[2018-02-14] MEDS: Acetylcysteine 20% Inhal Soln (4ml) IH SCH ×2 (07:55→21:15)
[2018-02-14] MEDS: Levalbuterol 0.63 MG/3 ML Inhal Soln UD IH SCH ×3 (07:58→21:15)
[2018-02-14] MEDS: Insulin Lispro (humaLOG) MEDIUM Coverage SC SCH ×4 (08:27→22:27)
[2018-02-14] MEDS: Meropenem 500 MG in Sodium Chloride 0.9% 50 ML IVPB SCH (10:14)
[2018-02-14 11:03] LABS: BASO # 0.01 K/mm3 (0.0-2.0); GRAN # 39.6 (1.4-6.5); GRAN % 95.3 % (50.0-68.0); HEMOGLOBIN 7.9 g/dL (14.0-18.0); LYMPH # 1.2 (1.2-3.4); LYMPH % 2.8 % (22.0-35.0); MEAN CELL VOLUME 81.2 fl (80.0-105.0); MEAN CORPUSCULAR HGB CONC 33.2 g/dl (31.0-37.0); MEAN PLATELET VOLUME 9.7 fl (7.0-11.0); MONO # 0.8 (0.1-0.6); MONO % 1.9 % (1.0-6.0); RBC 2.93 10^6/uL (3.5-6.1)
[2018-02-14 11:08] LABS: WHITE BLOOD COUNT 41.6 10^3/ul (4.5-11.0)
[2018-02-14 11:10] LABS: INR 2.44
[2018-02-14 11:39] LABS: ALB/GLOB RATIO 0.9 (1.1-1.8); ALBUMIN 2.9 g/dL (3.0-4.8); CALCIUM 10.2 mg/dL (8.4-10.5)
[2018-02-14] MEDS ORDERED: Sod Polystyrene Sulf 15 gm/60 ml Susp PR ONE (12:38)
[2018-02-14] MEDS ORDERED: Dextrose 50% SYRINGE Inj (50 ml) IVP ONE (12:38)
[2018-02-14] MEDS ORDERED: Sodium Bicarbonate (8.4%) 50 Meq Syringe IVP ONE (12:38)
[2018-02-14] MEDS ORDERED: Insulin Regular 1 UNITS/0.01 ML ML IV ONE (12:40)
--- NOTE | 2018-02-14 12:41 | CP.PCM.PN ---
Subjective - Date & Time of Evaluation Date of Evaluation: 02/14/18 Time of Evaluation: 12:33 - Subjective Subjective: Miranda Alberto, PGY2, Heme-Onc Progress Note for Dr Samson: Patient seen and examined at bedside. No acute events overnight. Patient remains on bipap, continues to have blood tinged stools. Denies fevers, chills, nausea, vomiting. Objective - Vital Signs/Intake and Output Vital Signs (last 24 hours): Temp Pulse Resp BP Pulse Ox 97.7 F 118 H 18 108/64 100 02/14/18 05:51 02/14/18 10:00 02/14/18 05:51 02/14/18 09:11 02/14/18 05:51 Intake and Output: 02/14/18 02/14/18 06:59 18:59 Intake Total 151 0 Output Total 100 Balance 151 -100 - Medications Medications: Current Medications Acetylcysteine (Acetylcysteine 20%) 3 ml IH BIDRESP [facility] Last Admin: 02/14/18 07:55 Dose: 3 ml Aspirin (Ecotrin) 81 mg PO DAILY [facility] Last Admin: 02/14/18 09:01 Dose: Not Given Atorvastatin Calcium (Lipitor) 10 mg PO DAILY [facility] Last Admin: 02/14/18 09:01 Dose: Not Given Finasteride (Proscar) 5 mg PO DAILY [facility] Last Admin: 02/14/18 09:02 Dose: Not Given Furosemide (Lasix) 20 mg IVP BID [facility] Last Admin: 02/14/18 09:11 Dose: 20 mg Milrinone Lactate/Dextrose (Primacor 20mg/100ml D5w) 100 mls @ 2.585 mls/hr IV .Q24H PRN; Protocol; 0.125 MCG/KG/MIN PRN Reason: TITRATE PER MD ORDER Last Admin: 02/14/18 03:04 Dose: 0.1 mcg/kg/min, 2.068 mls/hr Sodium Chloride (Sodium Chloride 0.9%) 1,000 mls @ 80 mls/hr IV .[id number] [facility] Last Admin: 02/04/18 23:45 Dose: 80 mls/hr Dextrose/Sodium Chloride (Dextrose 5%/0.45% Ns 1000 Ml) 1,000 mls @ 40 mls/hr IV .Q24H [facility] Last Admin: 02/12/18 17:36 Dose: 40 mls/hr Insulin Detemir (Levemir) [address] [facility] Insulin Human Lispro (Humalog Med) 0 units SC [facility] PRN Reason: Protocol Last Admin: 02/14/18 12:21 Dose: Not Given Ipratropium [place] (Atrovent) 0.5 mg IH TIDRESP [facility] Last Admin: 02/14/18 07:55 Dose: 0.5 mg Levalbuterol HCl (Xopenex) 0.63 mg IH TIDRESP [facility] Last Admin: 02/14/18 07:58 Dose: 0.63 mg Morphine Sulfate (Morphine) 2 mg IVP Q4H PRN PRN Reason: Pain, moderate (4-7) Last Admin: 02/13/18 22:02 Dose: 2 mg Pantoprazole Sodium (Protonix Ec Tab) 40 mg PO 0600 [facility] Last Admin: 02/14/18 07:41 Dose: Not Given Sodium Bicarbonate (Sodium Bicarbonate Tab) 650 mg PO TID [facility] Last Admin: 02/14/18 09:02 Dose: Not Given Verapamil HCl (Calan Tab) 40 mg PO TID [facility] Last Admin: 02/14/18 09:01 Dose: Not Given Verapamil HCl (Verapamil Inj) 2.5 mg IVP Q6H PRN PRN Reason: for heart rate >130 Last Admin: 02/13/18 10:01 Dose: 2.5 mg - Labs Labs: 02/14/18 10:45 02/14/18 10:45 PT 28.6 SECONDS 02/14/18 10:45 INR 2.44 02/14/18 10:45 APTT 36.2 Seconds 02/14/18 10:45 - Additional Findings Additional findings: - Constitutional Appears: Toxic, Older Than Stated Age, Cachectic, Chronically Ill - Head Exam Head Exam: ATRAUMATIC, NORMOCEPHALIC - Eye Exam Eye Exam: EOMI, PERRL. absent: Conjunctival injection, Nystagmus, Scleral icterus Pupil Exam: NORMAL ACCOMODATION, PERRL. absent: Miosis, Mydriatic, Unequal - ENT Exam ENT Exam: Mucous Membranes Moist - Neck Exam Neck Exam: Full ROM - Respiratory Exam Respiratory Exam: Decreased Breath Sounds - Cardiovascular Exam Cardiovascular Exam: RRR, +S1, +S2. absent: Murmur - GI/Abdominal Exam GI & Abdominal Exam: Soft, Normal Bowel Sounds. 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 Patient found to be severe sepsis, MODS, [place], HCAP, ESBL E.coli complicated UTI, supratherapeutic INR. Patient having worsening leukocytosis, weakness. Heme-Onc consulted for anemia, liver mets: - May give 1 unit prbcs. will give EPO as needed. blood consent in chart. - C/w IV abx. - afebrile, worsening leukocytosis - C diff pending - hyperkalemic, given cagluconate, insulin with D50, sodium bicarb, kayexalate. Repeat K at 10 PM. - Repeat urine culture shows yeast, >100,000 CFU - CT abd pelvis today showed worsening of liver mass, right sided pneumothorax - DNR/DNI. - if needed, can resume patient's coumadin 1 mg, or 2 mg daily. Please weight risks/benefits, proceed as per primary - guarded prognosis Case and plan were reviewed and discussed with attending physician Dr. Samson
--- NOTE | 2018-02-14 13:02 | PN ---
DATE: 02/13/2018 SUBJECTIVE: The patient seems more sick, more lethargic, using BiPAP and does not feel well. The patient's family , the patient's condition explained to the family. PHYSICAL EXAMINATION: VITAL SIGNS: His temperature is 97.5; heart rate 121; blood pressure systolic, it was in the 80s before and it went up to to 114/67; BiPAP saturation is 98%. HEAD AND NECK: Normal. CHEST: A few rhonchi bilaterally with diminished breath sounds. CARDIAC: First sound and second sound normal, tachycardic, irregular. ABDOMEN: Soft. There is colostomy bag and small tinged blood in the stool. EXTREMITIES: No edema. NEUROLOGIC: The patient had weakness to his both lower extremities. LABORATORY DATA: Shows white count , hemoglobin 7.7, hematocrit 23.7, platelets 404. Chemistry noted for blood sugar of 187. The patient's last BUN and creatinine, BUN is 139 and creatinine is 7.1. The patient also had a CT of the abdomen and pelvis to evaluate his leukocytosis and the impression was dense consolidation in the right lower lobe consistent with his pneumonia, small pneumothorax in the right lung base, no change in the abdominal aortic aneurysm, increased size of the mass of the right lobe of the liver. IMPRESSION AND PLAN: 1. Right lower lobe pneumonia; chronic obstructive pulmonary disease; congestive heart failure, on BiPAP. The patient seems getting worse. The patient needs hep-lock IV fluid, he is getting Lasix 20 IV. Continue IV milrinone. The patient is DNR. Continue BiPAP machine for now. 2. Sepsis, probably pneumonia and urosepsis. Continue current IV antibiotics as per ID consult. The patient hemodynamically was systolic within the 85 and seems improving now. 3. Abdominal pain, right upper quadrant pain. Continue morphine p.r.n. The patient does have liver metastases. 4. Lung carcinoma with liver metastasis. Continue pain medications, comfort care. 5. Gastrointestinal bleeding, melena. He is off Coumadin. Vitamin K already given and we will monitor his PT/INR. 6. Chronic atrial fibrillation, coronary artery disease, ischemic cardiomyopathy. Continue verapamil and continue milrinone. 7. Diabetes. Continue Levemir and insulin coverage and we will follow up clinically. The patient's condition is poor, has multiorgan failure, renal failure, cardiac failure, liver metastasis and respiratory failure due to multifactorial etiology, lung carcinoma, pneumonia, chronic obstructive pulmonary disease and pneumothorax, poor general weakness. Prognosis is poor. Discussed with his son and . Discussed with Dr. Samson. Dexter Palacios MD
--- NOTE | 2018-02-14 14:10 | PN ---
Copied To: Arabella Mathews MD Attending MD: Arabella Mathews MD. DATE: 02/14/2018 REASON FOR THE CONSULTATION AND FOLLOWUP: Coronary artery disease; cardiomyopathy, ischemic; admitted with hypoglycemia; hypotension; cardiac evaluation; AFib with rapid ventricular rate; worsening renal insufficiency, terminally ill. SUBJECTIVE: The patient is in CPAP, very lethargic, is at the bedside. OBJECTIVE: GENERAL: Mild respiratory distress, on CPAP, getting morphine and Primacor. VITAL SIGNS: Temperature afebrile, heart rate 119, blood pressure 108/64. HEENT: PERRLA. Extraocular muscles intact. NECK: Supple. No carotid bruit. No thyromegaly. CHEST: Clear to auscultation. HEART: S1 and S2, regular. ABDOMEN: Soft. EXTREMITIES: Clubbing and cyanosis negative. LABORATORY DATA: Blood workup as follows: WBC 36.9, hemoglobin 7.7, hematocrit 23.7, platelet count 404. Chemistry shows sodium 136, potassium 5, chloride 103, carbon dioxide 18, anion gap of 20. BUN 139, creatinine 7.1 as of 02/12/2018. IMPRESSION: A 72-year-old male with past medical history significant for coronary artery disease; status post percutaneous transluminal coronary angioplasty of left anterior descending artery; cardiomyopathy, ischemic, ejection fraction 15% to 20%, status post automatic implantable cardioverter-defibrillator; history of paroxysmal atrial fibrillation; history of abdominal aortic aneurysm, status post endovascular stent; history of severe diverticular colonic disease leading to colectomy; history of lung cancer, status post radiation; admitted with hypoglycemia, hypotension, acute kidney injury, thought to be very high risk for dialysis. The patient is currently being managed medically. Code status is do not resuscitate. Overall, the patient's condition is critical. Discussed in length with the daughter in front of the nurse and hospice care and stop blood drawing. said that she probably understood and takes the patient home. Continue supportive care. No further workup is warranted, probably comfort care. Thank you, Dr. Palacios, for providing us the opportunity in taking care of the patient, [place]. We will sign off soon and glad to follow up p.r.n. Arabella Mathews MD [facility] # [id number]
--- NOTE | 2018-02-14 14:35 | PN ---
Copied To: Walt Conner MD Attending MD: Walt Conner MD. DATE: 02/14/2018 SUBJECTIVE: The patient is seen earlier this morning in room 268, bed 2. No fevers. No chills. No nausea. PHYSICAL EXAMINATION: VITAL SIGNS: Temperature is 98, blood pressure is 108/60, respiratory rate of 18. HEENT: Examination of HEENT is unremarkable. NECK: Supple. LUNGS: Have decreased breath sounds. HEART: Normal S1, S2. ABDOMEN: Soft, nontender. LABORATORY DATA: Laboratory examination reveals the white count is up to 41,000, hemoglobin of 7, platelets of 446. BUN of 153, creatinine is 8. The patient's procalcitonin is 23. Urinalysis is noted. Stool for occult is positive. Microbiology reveals yeast in the urine. Blood cultures are negative. The patient had Klebsiella and yeast in the urine earlier. Review of orders reveals the patient to be on no antibiotics. The patient was given a dose of vancomycin yesterday. ASSESSMENT AND PLAN: A 72-year-old male with severe sepsis, [id number] renal failure, multifocal healthcare-associated pneumonia and possible gram-negative aivs as well as extended-spectrum beta-lactamase Escherichia coli complicated urinary tract infection in a patient who has a history of an automatic implantable cardioverter-defibrillator placement and partial colectomy, now with leukocytosis and leukemoid reaction. Stool for Clostridium difficile is pending. The patient had received 8 days of meropenem, now off of antibiotics. The patient should consider supportive care. We will check for the stool for Clostridium difficile. Overall prognosis is poor for this end-stage. Walt Conner MD
--- NOTE | 2018-02-14 17:39 | PN ---
Copied To: Mio Stoddard MD Attending MD: Mio Stoddard MD DATE: 02/14/2018 SUBJECTIVE: The patient is currently seen on 2R, his is in the room. He remains on BiPAP. He remains on Primacor drip. The patient remains critically ill. The patient is making less urine. His renal parameters are worsening. The patient was to have been evaluated for hospice, but the family is not interested in hospice because of catholic reasons. MEDICATIONS: Medication list reviewed. The patient is on acetylcysteine inhalation therapy, Atrovent, Calan, Ecotrin, insulin, IV Lasix, Lipitor, morphine, Primacor, Proscar, Protonix, sodium bicarbonate, verapamil, and Xopenex. PHYSICAL EXAMINATION: INTAKE AND OUTPUT: Intake is 151, output is 250 mL. Urine output today so far is 100 mL since 07:00 a.m. VITAL SIGNS: Blood pressure 108/64 with a respiratory rate of 18, pulse ox of 100%. Afebrile at 97.7, heart rate is 119. HEENT: Shows a BiPAP mask in place. Conjunctivae remain pale. He remains normocephalic, atraumatic. Sclerae are nonicteric. NECK: Appears supple. No neck vein distention. CHEST: Scattered rales and rhonchi. No wheezing. CARDIOVASCULAR: Shows a regular rate and rhythm with MR/TR/AI. No S3, no S4, no rub. ABDOMEN: Soft. Bowel sounds normal. Right-sided colostomy. No rebound, no guarding. EXTREMITIES: Show upper extremity puffiness. No lower extremity cyanosis, clubbing or edema noted. LABORATORY DATA AND IMAGING: CBC today, white blood cell count is up to 41.6, hemoglobin is 7.9 with a platelet count of 446,000. Coag showed an INR of 2.44 with a PTT of 36.2. Chemistries: Potassium level is pending, yesterday's was 5; sodium 140, BUN is up to 153 with a creatinine of 8. CO2 is low at 14. Chloride is 105. Glucose 192, calcium 10.2 and magnesium of 2.1. Liver enzymes are normal with the exception of an elevated alkaline phosphatase, albumin level is low at 2.9. Microbiology: Cultures as noted before urine was positive for Klebsiella and yeast. All blood cultures were negative. ASSESSMENT: 1. Acute renal failure superimposed on chronic kidney disease, stage IV/V. Because of the patient's comorbidities, he is a poor candidate for dialysis. Dialysis is not being considered. We had suggested previously that the patient be evaluated for hospice. His family is not interested in this because of catholic and cultural reasons. Perhaps no further blood drawing would be a reasonable suggestion. 2. Status post septic shock, hypotension. Metabolic acidosis persists. He is status post treatment for a multi-lobe pneumonia and Klebsiella and yeast urinary tract infection. 3. History of severe anemia. There was some question and thought about transfusing the patient, this was not done. 4. History of severe cardiomyopathy with ejection fraction of 15%. The patient has valvular heart disease, mitral regurgitation/tricuspid regurgitation/aortic insufficiency. He is status post permanent pacemaker, automatic implantable cardioverter-defibrillator. He continues on Primacor therapy to help maintain his cardiac output. 5. History of non-insulin dependant diabetes mellitus. Blood glucose is controlled on sliding scale insulin. 6. History of benign prostatic hypertrophy, stable. 7. History of hyperlipidemia, stable. 8. History of partial bowel obstruction with colostomy status, currently stable. 9. History of metastatic lung cancer with metastasis to the liver. PLAN: 1. The patient for right now will continue on BiPAP. I d/w the patient's that we perhaps discontinue all blood drawing. She will make this decision together with Dr. Palacios. I personally will not order any further labs. 2. Continue the patient on IV Primacor for cardiac inotropic support. 3. Continue on BiPAP therapy. 4. Continue on oral sodium bicarbonate therapy for his metabolic acidosis. 5. Try to explain to the that it is very little we could do that is going to make any difference here. I told her that comfort measures are the best plan, whether or not we call at hospice or not. Mio Stoddard MD [facility]
--- NOTE | 2018-02-14 23:23 | PN ---
Copied To: Arabella Alva MD Attending MD: Arabella Alva MD DATE: 02/14/2018 PULMONARY PROGRESS NOTE SUBJECTIVE: He is lying in the bed on noninvasive ventilation. is at bedside. Night was unremarkable. Still have cough and sputum production. No hemoptysis, no hematemesis. Has some dark stool in the colostomy bag. Mild abdominal pain. No leg swelling. Had Kayexalate enema today. OBJECTIVE: GENERAL: In no acute distress. VITAL SIGNS: Temp is 98, heart rate is 116, respiratory rate is 20, blood pressure 101/63, pulse ox 100% on noninvasive ventilation with 100% oxygen. HEENT: Moist mucous membrane. NECK: Supple. No JVD. LUNGS: Scattered rhonchi. HEART: S1 and S2. ABDOMEN: Positive bowel sounds. Mildly tender. Colostomy bag have some dark stool. EXTREMITIES: There is no edema. NEUROLOGIC: Awake, alert, lethargic though. MEDICATIONS: He is on Mucomyst inhaled twice a day, Atrovent 0.5 mg every 8 hours, verapamil 40 mg three times a day, IV fluid D5 half normal 40 mL/hour, Ecotrin 81 mg daily, Lasix 20 mg twice a day, insulin Levemir 30 units subcu at bedtime, Lipitor 10 mg daily, morphine 2 mg IV every 4 hours p.r.n., Primacor IV drip, Proscar 5 mg daily, Protonix 40 mg daily, sodium bicarbonate 650 mg three times a day, verapamil 2.5 mg every 6 hours p.r.n., Xopenex inhaled every 8 hours. LABORATORY DATA: Shows hemoglobin 7.9, hematocrit 23.8, WBC 41,000, platelet is 446. INR 2.44. PTT 36. Sodium 140, potassium 5.9, chloride 105, bicarbonate is 14, BUN 153, creatinine 8, glucose 192, calcium is 10.2, magnesium 2.1, AST 28, ALT 15, alk phos is 200. Albumin is 2.9. Microbiology, urine culture has some yeast. Stool for C. diff is negative. IMPRESSION AND PLAN: Multiorgan failure, metastatic lung cancer, chronic lung disease, severe cardiomyopathy, milrinone dependent, history of hemicolectomy, has a colostomy, renal failure, electrolyte imbalance. Patient is do not resuscitate and do not intubate. Spoke to the patient's at bedside. All the questions answered. Pulmonary point of view, keep head elevated at 45 degrees. Continue noninvasive ventilation, bronchodilator, p.r.n. mouth suction, high risk for aspiration. Being followed by Nephrology, Cardiology, Infectious Diseases and primary medical doctor. Thank you and we will follow with you. Arabella Alva MD
[2018-02-15] MEDS: Pantoprazole 40 mg EC Tab PO SCH (05:31)
[2018-02-15 07:06] LABS: BASO # 0.01 K/mm3 (0.0-2.0); HEMOGLOBIN 7.7 g/dL (14.0-18.0); MEAN CELL VOLUME 80.7 fl (80.0-105.0); MEAN CORPUSCULAR HEMOGLOBIN 26.1 pg (25.0-35.0); MEAN CORPUSCULAR HGB CONC 32.4 g/dl (31.0-37.0); MEAN PLATELET VOLUME 9.6 fl (7.0-11.0); MONO % 2.4 % (1.0-6.0); PLATELET COUNT 428 10^3/uL (120.0-450.0); RBC 2.95 10^6/uL (3.5-6.1); RED CELL DISTRIBUTION WIDTH 18.2 % (11.5-14.5)
--- NOTE | 2018-02-15 07:11 | CP.PCM.PN ---
Subjective - Date & Time of Evaluation Date of Evaluation: 02/15/18 Time of Evaluation: 06:25 - Subjective Subjective: lethargic,open eyes to name calling, on BIPAP/CPAP Reason for consultation and follow up: Cardiac evaluation for coronary artery disease,cardiomyopathy, admitted for hypotension,atrial fibrillation with rapid ventricular rate, worsening renal insufficiency Seen and examined by me and Dr. Mathews Objective - Vital Signs/Intake and Output Vital Signs (last 24 hours): Temp Pulse Resp BP Pulse Ox 97.0 F L 112 H 22 101/51 L 95 02/15/18 06:00 02/15/18 06:00 02/15/18 06:00 02/15/18 06:00 02/15/18 06:00 Intake and Output: 02/15/18 02/15/18 06:59 18:59 Intake Total 85 Output Total 50 Balance 35 - Medications Medications: Current Medications Acetylcysteine (Acetylcysteine 20%) 3 ml IH BIDRESP [facility] Last Admin: 02/14/18 21:15 Dose: 3 ml Aspirin (Ecotrin) 81 mg PO DAILY [facility] Last Admin: 02/14/18 09:01 Dose: Not Given Atorvastatin Calcium (Lipitor) 10 mg PO DAILY [facility] Last Admin: 02/14/18 09:01 Dose: Not Given Finasteride (Proscar) 5 mg PO DAILY [facility] Last Admin: 02/14/18 09:02 Dose: Not Given Furosemide (Lasix) 20 mg IVP BID [facility] Last Admin: 02/14/18 17:09 Dose: 20 mg Milrinone Lactate/Dextrose (Primacor 20mg/100ml D5w) 100 mls @ 2.585 mls/hr IV .Q24H PRN; Protocol; 0.125 MCG/KG/MIN PRN Reason: TITRATE PER MD ORDER Last Admin: 02/14/18 03:04 Dose: 0.1 mcg/kg/min, 2.068 mls/hr Sodium Chloride (Sodium Chloride 0.9%) 1,000 mls @ 80 mls/hr IV .[id number] [facility] Last Admin: 02/04/18 23:45 Dose: 80 mls/hr Dextrose/Sodium Chloride (Dextrose 5%/0.45% Ns 1000 Ml) 1,000 mls @ 40 mls/hr IV .Q24H [facility] Last Admin: 02/12/18 17:36 Dose: 40 mls/hr Insulin Detemir (Levemir) 13 unit SC HS [facility] Insulin Human Lispro (Humalog Med) 0 units SC ACHS [facility] PRN Reason: Protocol Last Admin: 02/14/18 22:27 Dose: Not Given Ipratropium [place] (Atrovent) 0.5 mg IH TIDRESP [facility] Last Admin: 02/14/18 21:15 Dose: 0.5 mg Levalbuterol HCl (Xopenex) 0.63 mg IH TIDRESP [facility] Last Admin: 02/14/18 21:15 Dose: 0.63 mg Morphine Sulfate (Morphine) 2 mg IVP Q4H PRN PRN Reason: Pain, moderate (4-7) Last Admin: 02/13/18 22:02 Dose: 2 mg Pantoprazole Sodium (Protonix Ec Tab) 40 mg PO 0600 [facility] Last Admin: 02/15/18 05:31 Dose: Not Given Sodium Bicarbonate (Sodium Bicarbonate Tab) 650 mg PO TID [facility] Last Admin: 02/14/18 17:01 Dose: Not Given Verapamil HCl (Calan Tab) 40 mg PO TID [facility] Last Admin: 02/14/18 17:01 Dose: Not Given Verapamil HCl (Verapamil Inj) 2.5 mg IVP Q6H PRN PRN Reason: for heart rate >130 Last Admin: 02/13/18 10:01 Dose: 2.5 mg - Labs Labs: 02/14/18 10:45 02/14/18 21:10 PT 28.6 SECONDS 02/14/18 10:45 INR 2.44 02/14/18 10:45 APTT 36.2 Seconds 02/14/18 10:45 - Eye Exam Eye Exam: Normal appearance - ENT Exam ENT Exam: Mucous Membranes Dry - Respiratory Exam Respiratory Exam: Decreased Breath Sounds, Rhonchi, NORMAL BREATHING PATTERN - Cardiovascular Exam Cardiovascular Exam: +S1, +S2 Additional comments: PPM telemetry Sinus tachycardia 110's - GI/Abdominal Exam GI & Abdominal Exam: Soft, Normal Bowel Sounds Additional comments: colostomy - Exam Additional comments: ken catheter - Neurological Exam Additional comments: lethargic but open eyes to name calling - Skin Skin Exam: Dry, Warm Assessment and Plan - Assessment and Plan (Free Text) Assessment: A 72 year old male who was brought to the ER due to hypotension, rapid atrial fibrillation,history of CVA, lung CA (radiation), Atrial Fibrillation, coronary artery disease post PTCA, AICD, CHF, endocarditis, AAA, AVR, ischemic cardiomyopathy, coronary stents x 3, port to right upper chest, diabetes type 2 , metastatic liver disease and colostomy.Bed ridden.DNR/DNI. Plan: On BIPAP Continue Primacor drip Stable blood pressure Tachycardia Pulmonary and Renal on consult On IV antibiotics per ID Continue current treatment Continue current medications Critically ill, treated medically; DNR/DNI Supportive care/comfort care Dr. Mathews had spoken to family Will follow up Plan and treatment discussed with Dr. Mathews
[2018-02-15 07:12] LABS: INR 2.25; PROTHROMBIN TIME 26.3 SECONDS (9.4-12.5)
[2018-02-15 07:15] LABS: PARTIAL THROMBOPLASTIN TIME 36.5 Seconds (25.1-36.5)
[2018-02-15 07:37] LABS: ALB/GLOB RATIO 0.8 (1.1-1.8); ALBUMIN 2.9 g/dL (3.0-4.8); CALCIUM 10.2 mg/dL (8.4-10.5)
[2018-02-15 07:40] LABS: WHITE BLOOD COUNT 39.6 10^3/ul (4.5-11.0)
[2018-02-15] MEDS: Levalbuterol 0.63 MG/3 ML Inhal Soln UD IH SCH ×3 (08:03→20:20)
[2018-02-15] MEDS: Ipratropium 0.02% Inhal Soln (0.5 mg/2.5 ml) UD IH SCH ×3 (08:03→20:20)
[2018-02-15] MEDS: Acetylcysteine 20% Inhal Soln (4ml) IH SCH ×2 (08:04→20:25)
[2018-02-15] MEDS: Insulin Lispro (humaLOG) MEDIUM Coverage SC SCH ×4 (08:19→22:35)
--- NOTE | 2018-02-15 10:05 | PN ---
Copied To: Walt Conner MD Attending MD: Walt Conner MD DATE: 02/15/2018 SUBJECTIVE: The patient is in bed in no acute distress, nontoxic. No fevers, no chills. Uneventful night. OBJECTIVE: VITAL SIGNS: On exam, temperature is 97, blood pressure is 100/70, respiratory rate 22, heart rate of 114. HEENT: Examination is unremarkable. NECK: Supple. LUNGS: Have decreased breaths. HEART: Normal S1, S2. ABDOMEN: Soft, nontender. DATA: Laboratory examination reveals a white count of 41,000, hemoglobin of 7.9 and platelets of 446, creatinine is 8. Urinalysis is noted. Stool for occult positive. Review of orders reveals the patient is off of antibiotics. ASSESSMENT AND PLAN: This is a 72-year-old male with severe sepsis, [id number] renal failure, multifocal healthcare-associated pneumonia, possible Gram-negative avis, possible Gram-positive cocci as well as extended-spectrum beta-lactamases Escherichia coli urinary tract infection, which is complicated in a patient with a history of automatic implantable cardioverter defibrillator, partial colectomy with leukemoid reaction. Stool for Clostridium difficile is pending. Currently off of antibiotics, now with a stool for C. diff ____ became available with negative Clostridium difficile and negative antigen and toxin with persistent leukocytosis. Overall prognosis is quite poor, should consider a hospice setting in this patient who is end stage. Walt Conner MD
[2018-02-15] MEDS ORDERED: Dextrose 50% SYRINGE Inj (50 ml) IVP ONE (10:21)
[2018-02-15] MEDS ORDERED: Insulin Regular 1 UNITS/0.01 ML ML IVP ONE (10:23)
[2018-02-15] MEDS ORDERED: Albuterol 0.5% Inhal Sol (2.5 mg/0.5 ml) UD IH ONE (10:30)
[2018-02-15] MEDS ORDERED: Sodium Chloride 0.9% 500 ML IV STA ×2 (10:51→11:58)
[2018-02-15 13:46] LABS: PARTIAL THROMBOPLASTIN TIME 36.2 Seconds (25.1-36.5); PROTHROMBIN TIME 28.6 SECONDS (9.4-12.5)
--- NOTE | 2018-02-15 14:43 | CP.PCM.PN ---
Subjective - Date & Time of Evaluation Date of Evaluation: 02/15/18 Time of Evaluation: 14:33 - Subjective Subjective: Miranda Alberto, PGY2, Heme-Onc Progress Note for Dr Samson: Patient seen and examined at bedside. No acute events overnight. Patient remains on bipap, appears weak. Denies fevers, chills, nausea, vomiting. Objective - Vital Signs/Intake and Output Vital Signs (last 24 hours): Temp Pulse Resp BP Pulse Ox 98.5 F 112 H 22 95/59 L 97 02/15/18 12:00 02/15/18 12:52 02/15/18 12:00 02/15/18 12:52 02/15/18 12:52 Intake and Output: 02/15/18 02/15/18 06:59 18:59 Intake Total 85 Output Total 50 Balance 35 - Medications Medications: Current Medications Acetylcysteine (Acetylcysteine 20%) 3 ml IH BIDRESP [facility] Last Admin: 02/15/18 08:04 Dose: 3 ml Aspirin (Ecotrin) 81 mg PO DAILY [facility] Last Admin: 02/15/18 09:37 Dose: Not Given Atorvastatin Calcium (Lipitor) 10 mg PO DAILY [facility] Last Admin: 02/15/18 09:37 Dose: Not Given Finasteride (Proscar) 5 mg PO DAILY [facility] Last Admin: 02/15/18 09:37 Dose: Not Given Furosemide (Lasix) 20 mg IVP BID [facility] Last Admin: 02/15/18 10:50 Dose: Not Given Milrinone Lactate/Dextrose (Primacor 20mg/100ml D5w) 100 mls @ 2.585 mls/hr IV .Q24H PRN; Protocol; 0.125 MCG/KG/MIN PRN Reason: TITRATE PER MD ORDER Last Admin: 02/14/18 03:04 Dose: 0.1 mcg/kg/min, 2.068 mls/hr Dextrose/Sodium Chloride (Dextrose 5%/0.45% Ns 1000 Ml) 1,000 mls @ 40 mls/hr IV .Q24H [facility] Last Admin: 02/12/18 17:36 Dose: 40 mls/hr Sodium Chloride (Sodium Chloride 0.9%) 1,000 mls @ 30 mls/hr IV .Q24H [facility] Insulin Detemir (Levemir) 13 unit SC HS [facility] Insulin Human Lispro (Humalog Med) 0 units SC ACHS [facility] PRN Reason: Protocol Last Admin: 02/15/18 12:03 Dose: 7 unit Ipratropium [place] (Atrovent) 0.5 mg IH TIDRESP [facility] Last Admin: 02/15/18 08:03 Dose: 0.5 mg Levalbuterol HCl (Xopenex) 0.63 mg IH TIDRESP [facility] Last Admin: 02/15/18 08:03 Dose: 0.63 mg Morphine Sulfate (Morphine) 2 mg IVP Q4H PRN PRN Reason: Pain, moderate (4-7) Last Admin: 02/13/18 22:02 Dose: 2 mg Pantoprazole Sodium (Protonix Ec Tab) 40 mg PO 0600 [facility] Last Admin: 02/15/18 05:31 Dose: Not Given Sodium Bicarbonate (Sodium Bicarbonate Tab) 650 mg PO TID [facility] Last Admin: 02/15/18 14:21 Dose: Not Given Verapamil HCl (Calan Tab) 40 mg PO TID [facility] Last Admin: 02/15/18 14:20 Dose: Not Given Verapamil HCl (Verapamil Inj) 2.5 mg IVP Q6H PRN PRN Reason: for heart rate >130 Last Admin: 02/13/18 10:01 Dose: 2.5 mg - Labs Labs: 02/15/18 06:30 02/15/18 06:30 PT 26.3 SECONDS (9.4-12.5) H 02/15/18 06:30 INR 2.25 02/15/18 06:30 APTT 36.5 Seconds (25.1-36.5) 02/15/18 06:30 - Additional Findings Additional findings: - Constitutional Appears: Toxic, Older Than Stated Age, Cachectic, Chronically Ill - Head Exam Head Exam: ATRAUMATIC, NORMOCEPHALIC - Eye Exam Eye Exam: EOMI, PERRL. absent: Conjunctival injection, Nystagmus, Scleral icterus Pupil Exam: NORMAL ACCOMODATION, PERRL. absent: Miosis, Mydriatic, Unequal - ENT Exam ENT Exam: Mucous Membranes Moist - Neck Exam Neck Exam: Full ROM - Respiratory Exam Respiratory Exam: Decreased Breath Sounds - Cardiovascular Exam Cardiovascular Exam: RRR, +S1, +S2. absent: Murmur - GI/Abdominal Exam GI & Abdominal Exam: Soft, Normal Bowel Sounds. absent: Tenderness, Hyperactive Bowel Sounds, Organomegaly Additional comments: + colostomy, dark liquid stool, small amount noted - Extremities Exam Extremities Exam: Full ROM - Back Exam Back Exam: NORMAL INSPECTION - Neurological Exam Neurological Exam: Alert, Awake - Psychiatric Exam Psychiatric exam: Depressed - Skin Skin Exam: Dry, Normal Color, Warm Assessment and Plan - Assessment and Plan (Free Text) Assessment: 72 year old male with PMH CVA, adenocarcinoma of the lung with liver metastases , aortic valve replacement, atrial fibrillation (on Coumadin), CKD, CHF (EF 15) , endocarditis, abdominal aortic aneurysm (s/p repair), and diverticulitis (s/p partial colectomy with ostomy bag) who presented to ED with worsening lethargy, hypotension, and hyperglycemia. Patient found to be severe sepsis, MODS, [place], HCAP, ESBL E.coli complicated UTI, supratherapeutic INR. Patient having worsening leukocytosis, weakness. Heme-Onc consulted for anemia, liver mets: - May give 1 unit prbcs. will give EPO as needed. blood consent in chart. - C/w IV abx. - afebrile, worsening leukocytosis - C diff negative - hyperkalemic, treatment as per primary team and nephrology Dr Stoddard. - Repeat urine culture shows yeast, >100,000 CFU - CT abd pelvis today showed worsening of liver mass, right sided pneumothorax - DNR/DNI. - if needed, can resume patient's coumadin 1 mg, or 2 mg daily. Please weight risks/benefits, proceed as per primary - guarded prognosis Case and plan were reviewed and discussed with attending physician Dr. Samson
[2018-02-15] MEDS ORDERED: Sodium Chloride 0.9% 1,000 ML IV SCH (15:04)
[2018-02-15] MEDS ORDERED: Sodium Bicarbonate (8.4%) 50 Meq Syringe IVP ONE (15:19)
[2018-02-15] MEDS ORDERED: Albuterol 0.083% Inhal Sol (2.5 mg/3 mL) UD INH STA (15:22)
--- NOTE | 2018-02-15 16:22 | PN ---
Copied To: Kaylen Crump MD Attending MD: Kaylen Crump MD DATE: 02/15/2018 SUBJECTIVE: The patient is seen lying in bed. He is on nasal oxygen. He does not appear to be in any kind of distress. PHYSICAL EXAMINATION: GENERAL: Elderly male, lying in bed. VITAL SIGNS: Blood pressure 182/42, heart rate 114, respiratory rate 22, temperature 98.5. HEENT: Normocephalic, atraumatic, positive pallor. NECK: Supple, no JVD. LUNGS: Bilateral equal air entry, bilateral equal expansion, no rales appreciated anteriorly. CARDIAC: S1 and S2, regular rate and rhythm, positive murmur, no rub. ABDOMEN: Obese, distended, soft, positive colostomy. EXTREMITIES: No lower extremity edema. INTAKE AND OUTPUT: 85/115. LABORATORY DATA: WBC 39.6, hemoglobin 7.7, hematocrit 24, platelets 428. Sodium 143, potassium 6.3, chloride 107, CO2 of 30, BUN 161, creatinine 9, glucose 214, calcium 10.2, phosphorus 8.6, magnesium 2.3, albumin 2.9. Stool occults positive from 02/06/2018. Urine culture, yeast from 02/13/2018. MEDICATIONS: Atrovent, Calan, Ecotrin, Lasix, insulin, Lipitor, milrinone 0.1 mcg/kg/minute, Xopenex. The patient received calcium gluconate 1 g, D50, insulin 10 units. ASSESSMENT: 1. Acute kidney injury superimposed on chronic kidney disease stage 5, end-stage renal disease. 2. Hyperkalemia secondary to acute kidney injury/chronic kidney disease stage 5. 3. Severe metabolic acidosis. 4. Sepsis, leukocytosis, hypotension, Klebsiella urinary tract infection, pneumonia. 5. Severe anemia, acute on chronic, GI bleed. 6. Congestive heart failure, cardiomyopathy, decreased ejection fraction. 7. Egm-ucixsng-wfjvznilg diabetes mellitus. 8. Multiorgan dysfunction/systemic inflammatory response syndrome. PLAN: 1. The patient is worsening clinically. WBC count is rising, he is hypotensive, worsening metabolic acidosis and hyperkalemia. The patient is not a candidate for renal replacement therapy. Continue with comfort care. 2. Limit lab work. 3. ? consider discontinuation of milrinone. 4. The patient is not on hospice because of gnosticist and cultural reasons. Kaylen Crump MD (Delete this signature block when dictator is a preceptor.) cc: MD Evan (Delete if not dictated.)
--- NOTE | 2018-02-15 17:05 | PN ---
Copied To: Arabella Alva MD Attending MD: Arabella Alva MD DATE: 02/15/2018 PULMONARY PROGRESS NOTE REFERRING PHYSICIAN: Dexter Palacios MD. SUBJECTIVE: The patient is lying in the bed, on nasal cannula oxygen, lethargic, but arousable. is at bedside. Not much cough. No sputum production. No hemoptysis. No hematemesis. No hematuria. Mild abdominal discomfort. No leg swelling. OBJECTIVE: GENERAL: Lethargic. VITAL SIGNS: Temp is 98, heart rate is 112, respiratory rate is 22, blood pressure 95/59, pulse ox 96% on 4 L nasal cannula. HEENT: Moist mucous membrane. Crowded airway. NECK: Supple. No JVD. LUNGS: Have scattered rhonchi. HEART: S1 and S2. ABDOMEN: Soft. Mild tenderness. Colostomy bag has some dark stool. EXTREMITIES: There is no edema. NEUROLOGICAL: Lethargic, arousable. MEDICATIONS: He is on Mucomyst inhaled twice a day, Atrovent inhaled three times a day, verapamil 40 mg three times a day, Ecotrin is on hold, Lasix 20 mg which is on hold, Levemir on hold, Lipitor 10 mg daily, morphine 2 mg every 4 hours p.r.n., on IV milrinone, getting IV fluid 30 mL/hour, Xopenex inhaled every 8 hours. LABORATORY DATA: Shows hemoglobin 7.7, hematocrit 23.8, WBC 39,000, platelet is 428. INR 2.25. Sodium 143, potassium 6.3, chloride 107, bicarbonate 13, BUN 161, creatinine 9, glucose 214, calcium 10.2, phosphorus 8.6, magnesium 2.3, AST 50, ALT 21, alk phos is 212, albumin is 2.9. IMPRESSION AND PLAN: Multiorgan failure, metastatic lung cancer, chronic lung disease, cardiomyopathy, milrinone dependent, renal failure, electrolyte imbalance, atrial fibrillation, oropharyngeal dysphagia. Spoke to the patient's at bedside. All the questions answered. Pulmonary point of view, he is doing okay on nasal cannula, keeping up with pulse oximetry. Unable to clear pulmonary secretion. On nebulizer treatment. Being followed by Nephrology, Cardiology, Infectious Diseases. Overall, very poor prognosis. Continue supportive care. Thank you and we will follow with you. Arabella Alva MD [facility] # [id number]
[2018-02-16] MEDS: Milrinone 20mg/100ml D5W 100 ML IV PRN (00:43)
[2018-02-16] MEDS: Pantoprazole 40 mg EC Tab PO SCH (05:05)
--- NOTE | 2018-02-16 05:19 | PN ---
Copied To: Dexter Palacios MD Attending MD: Dexter Palacios MD DATE: 02/14/2018 SUBJECTIVE: The patient is not doing well. He is on the BiPAP machine. Cannot eat or swallow because of respiratory distress, and patient seems uncomfortable. He is currently on morphine for pain from the right-side liver metastasis. Family around, discussed with the about the patient's condition. PHYSICAL EXAMINATION: VITAL SIGNS: Patient has temperature of 97.3, heart rate of 121, blood pressure 104/72, respirations 18 and he seems tachypneic, and saturating 100%. HEAD AND NECK: Normal. No JVD. CHEST: Bilaterally, there is rhonchi. CARDIOPULMONARY: First sound and second sound normal and regular. ABDOMEN: Soft. There is colostomy bag with stool. EXTREMITIES: Trace edema. NEUROLOGIC: Patient is lethargic. Moves spontaneous upper extremities. Otherwise, he is bedridden patient. LABORATORY DATA: White count 41,600, hemoglobin 7.9, hematocrit 23.8, platelet is 446. His chemistry on 02/14/2018, it shows the following sodium 140, potassium 5.9, chloride 105, bicarb 14, BUN 153, creatinine 8, blood sugar 192, calcium 10.2, alk phos 200. IMPRESSION AND PLAN: 1. The patient has multiorgan failure, has respiratory failure with respiratory distress due to underlying pneumonia and lung cancer, with underlying chronic obstructive pulmonary disease exacerbation. Continue bilevel positive airway pressure plus patient has renal failure, heart failure and liver has metastasis. Patient's family discussed about hospice care because they will contact me directly. Discussed with Dr. Stoddard and he advised no labs to be drawn since patient does not need any further treatment except comfort care, and the family and the understood that, and discussed should be done to keep him comfortable; otherwise, there is no way, I think treatment is prolonging his pain. I did discuss with the and previously with the son; she should call me directly, she has my cell phone number, obviously possibly hospice care or comfort care at home or at outpatient [facility] facility. 2. Diabetes, insulin dependent. 3. Chronic atrial fibrillation. 4. Anemia. 5. Colostomy. 6. Hypertension. 7. Coronary artery disease, pacemaker. Continue IV milrinone. Continue current support. Poor prognosis. Patient is DNR/DNI. Spent time with family, the , discussing the location. Dexter Palacios MD
[2018-02-16] MEDS: Levalbuterol 0.63 MG/3 ML Inhal Soln UD IH SCH ×3 (07:55→19:31)
[2018-02-16] MEDS: Acetylcysteine 20% Inhal Soln (4ml) IH SCH ×2 (07:55→19:32)
[2018-02-16] MEDS: Ipratropium 0.02% Inhal Soln (0.5 mg/2.5 ml) UD IH SCH ×3 (07:55→19:31)
[2018-02-16] MEDS: Insulin Lispro (humaLOG) MEDIUM Coverage SC SCH ×4 (08:25→22:00)
--- NOTE | 2018-02-16 08:45 | CP.PCM.PN ---
Subjective - Date & Time of Evaluation Date of Evaluation: 02/16/18 Time of Evaluation: 06:10 - Subjective Subjective: lethargic,labored breathing with BIPAP/CPAP Reason for consultation and follow up: Cardiac evaluation for coronary artery disease,cardiomyopathy, admitted for hypotension,atrial fibrillation with rapid ventricular rate, worsening renal insufficiency Seen and examined by me and Dr. Mathews Objective - Vital Signs/Intake and Output Vital Signs (last 24 hours): Temp Pulse Resp BP Pulse Ox 97.7 F 125 H 18 89/57 L 96 02/16/18 06:00 02/16/18 06:00 02/16/18 06:00 02/16/18 06:00 02/16/18 06:00 Intake and Output: 02/16/18 02/16/18 06:59 18:59 Intake Total 485 Output Total 50 Balance 435 - Medications Medications: Current Medications Acetylcysteine (Acetylcysteine 20%) 3 ml IH BIDRESP [facility] Last Admin: 02/16/18 07:55 Dose: Not Given Aspirin (Ecotrin) 81 mg PO DAILY [facility] Last Admin: 02/15/18 09:37 Dose: Not Given Atorvastatin Calcium (Lipitor) 10 mg PO DAILY [facility] Last Admin: 02/15/18 09:37 Dose: Not Given Finasteride (Proscar) 5 mg PO DAILY [facility] Last Admin: 02/15/18 09:37 Dose: Not Given Furosemide (Lasix) 20 mg IVP BID [facility] Last Admin: 02/15/18 17:43 Dose: Not Given Milrinone Lactate/Dextrose (Primacor 20mg/100ml D5w) 100 mls @ 2.585 mls/hr IV .Q24H PRN; Protocol; 0.125 MCG/KG/MIN PRN Reason: TITRATE PER MD ORDER Last Admin: 02/16/18 00:43 Dose: 0.1 mcg/kg/min, 2.068 mls/hr Sodium Chloride (Sodium Chloride 0.9%) 1,000 mls @ 30 mls/hr IV .Q24H [facility] Last Admin: 02/15/18 15:06 Dose: 30 mls/hr Insulin Detemir (Levemir) 13 unit SC HS [facility] Insulin Human Lispro (Humalog Med) 0 units SC ACHS [facility] PRN Reason: Protocol Last Admin: 02/16/18 08:25 Dose: Not Given Ipratropium [place] (Atrovent) 0.5 mg IH TIDRESP [facility] Last Admin: 02/16/18 07:55 Dose: 0.5 mg Levalbuterol HCl (Xopenex) 0.63 mg IH TIDRESP [facility] Last Admin: 02/16/18 07:55 Dose: 0.63 mg Morphine Sulfate (Morphine) 2 mg IVP Q4H PRN PRN Reason: Pain, moderate (4-7) Last Admin: 02/13/18 22:02 Dose: 2 mg Pantoprazole Sodium (Protonix Ec Tab) 40 mg PO 0600 [facility] Last Admin: 02/16/18 05:05 Dose: Not Given Sodium Bicarbonate (Sodium Bicarbonate Tab) 650 mg PO TID [facility] Last Admin: 02/15/18 17:07 Dose: Not Given Verapamil HCl (Calan Tab) 40 mg PO TID [facility] Last Admin: 02/15/18 17:07 Dose: Not Given Verapamil HCl (Verapamil Inj) 2.5 mg IVP Q6H PRN PRN Reason: for heart rate >130 Last Admin: 02/13/18 10:01 Dose: 2.5 mg - Labs Labs: 02/15/18 06:30 02/16/18 06:00 PT 26.3 SECONDS (9.4-12.5) H 02/15/18 06:30 INR 2.25 02/15/18 06:30 APTT 36.5 Seconds (25.1-36.5) 02/15/18 06:30 - ENT Exam ENT Exam: Mucous Membranes Dry - Respiratory Exam Respiratory Exam: Decreased Breath Sounds, Respiratory Distress - Cardiovascular Exam Cardiovascular Exam: +S1, +S2 Additional comments: PPM - GI/Abdominal Exam GI & Abdominal Exam: Soft, Normal Bowel Sounds Additional comments: colostomy - Neurological Exam Additional comments: lethargic - Skin Skin Exam: Dry, Warm Assessment and Plan - Assessment and Plan (Free Text) Assessment: A 72 year old male who was brought to the ER due to hypotension, rapid atrial fibrillation,history of CVA, lung CA (radiation), Atrial Fibrillation, coronary artery disease post PTCA, AICD, CHF, endocarditis, AAA, AVR, ischemic cardiomyopathy, coronary stents x 3, port to right upper chest, diabetes type 2 , metastatic liver disease and colostomy.renal failure,bed ridden.DNR/DNI. Plan: Labored breathing with BIPAP/CPAP DNR/DNI Will make him comfortable Will increase Morphine to every 2 hours Critically ill, poor prognosis, family aware Supportive care/comfort care Will follow up Plan and treatment discussed with Dr. Mathews
[2018-02-16] MEDS ORDERED: Morphine 2 mg/ml ISec IVP PRN (08:55)
--- NOTE | 2018-02-16 10:11 | PN ---
Copied To: Walt Conner MD Attending MD: Walt Conner MD DATE: 02/16/2018 SUBJECTIVE: The patient is in bed, in no acute distress, nontoxic, was seen earlier this morning in 268, bed 2. PHYSICAL EXAMINATION: VITAL SIGNS: Temperature is 98, blood pressure is 98/50, respiratory rate of 18, heart rate of 70. HEENT: Unremarkable. NECK: Supple. LUNGS: Have decreased breath sounds. HEART: Normal S1, S2. ABDOMEN: Soft, nontender. LABORATORY DATA: Laboratory examination reveals a white count of 39,000, hemoglobin of 7.7, platelets of 428. Creatinine is 9 and microbiology reveals the blood cultures are negative. The urine culture has yeast and the stool for C. diff is negative antigen, negative toxin and review of orders reveals the patient is off of antibiotics. Dr. Palacios's note is reviewed from yesterday. ASSESSMENT AND PLAN: A 72-year-old male with severe sepsis with pyuql-[id number] renal failure, multiorgan healthcare-associated pneumonia, possible gram-positive cocci, possible gram-negative avis with an extended-spectrum beta-lactamases Escherichia.coli urinary tract infection and complicated also with an automatic implantable cardioverter defibrillator, partial colectomy. The patient has systemic inflammatory response syndrome with leukemoid reaction and currently off of antibiotics in this patient who has underlying chronic obstructive lung disease and lung cancer and with liver metastases and currently off of antibiotics and considering hospice setting. No further laboratories to be drawn, supportive care in this patient, who has multiorgan failure and overall prognosis is quite poor. 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 Walt Conner MD
[2018-02-16 10:32] LABS: MEAN CELL VOLUME 81.7 fl (80.0-105.0); MEAN CORPUSCULAR HEMOGLOBIN 25.6 pg (25.0-35.0); MEAN CORPUSCULAR HGB CONC 31.4 g/dl (31.0-37.0); MEAN PLATELET VOLUME 9.4 fl (7.0-11.0); PLATELET COUNT 329 10^3/uL (120.0-450.0); RBC 2.73 10^6/uL (3.5-6.1); RED CELL DISTRIBUTION WIDTH 18.6 % (11.5-14.5)
[2018-02-16] MEDS ORDERED: Sodium Chloride 0.9% 1,000 ML IV SCH (10:38)
[2018-02-16] MEDS ORDERED: Dextrose 50% SYRINGE Inj (50 ml) IVP ONE (10:41)
[2018-02-16] MEDS ORDERED: Insulin Regular 1 UNITS/0.01 ML ML IVP ONE (10:42)
[2018-02-16 10:48] LABS: CALCIUM 9.1 mg/dL (8.4-10.5)
[2018-02-16 10:49] LABS: ALB/GLOB RATIO 0.8 (1.1-1.8); ALBUMIN 2.6 g/dL (3.0-4.8)
[2018-02-16 11:10] LABS: LYMPHOCYTE 2 % (22.0-35.0); MONOCYTE 3 % (1.0-6.0); NEUTROPHIL 95 % (50.0-70.0)
[2018-02-16 11:11] LABS: PLATELET ESTIMATE NORMAL (NORMAL)
[2018-02-16] MEDS ORDERED: Sodium Chloride 0.9% 250 ML IV STA (12:52)
[2018-02-16] MEDS ORDERED: DOPamine 400mg/250ml D5W 400 MG/250 ML BAG IV PRN (14:26)
--- NOTE | 2018-02-16 17:22 | CP.PCM.PN ---
Subjective - Date & Time of Evaluation Date of Evaluation: 02/16/18 Time of Evaluation: 17:13 - Subjective Subjective: MICU RE-CONSULT NOTE HPI Patient is 72yo male with PMHx of Afib, CVA, lung ca with neds, CAD, AICD, CHF, AAA, AVR, colostomy, worsening renal failure, was in MICU for resp failure, septic shock, made DNR/DNI POLST form signed, currently on telemetry being transfused, MICU consulted for hypotension. Patient awake, not alert, not able to answer any questions. Palliative care following. Objective - Vital Signs/Intake and Output Vital Signs (last 24 hours): Temp Pulse Resp BP Pulse Ox 98 F 120 H 16 71/39 L 100 02/16/18 15:04 02/16/18 15:04 02/16/18 15:04 02/16/18 15:04 02/16/18 13:21 Intake and Output: 02/16/18 02/16/18 06:59 18:59 Intake Total 485 273 Output Total 50 Balance 435 273 - Medications Medications: Current Medications Acetylcysteine (Acetylcysteine 20%) 3 ml IH BIDRESP [facility] Last Admin: 02/16/18 07:55 Dose: Not Given Aspirin (Ecotrin) 81 mg PO DAILY [facility] Last Admin: 02/16/18 10:23 Dose: Not Given Atorvastatin Calcium (Lipitor) 10 mg PO DAILY [facility] Last Admin: 02/16/18 10:50 Dose: Not Given Finasteride (Proscar) 5 mg PO DAILY [facility] Last Admin: 02/16/18 10:24 Dose: Not Given Furosemide (Lasix) 20 mg IVP BID [facility] Last Admin: 02/16/18 10:23 Dose: Not Given Milrinone Lactate/Dextrose (Primacor 20mg/100ml D5w) 100 mls @ 2.585 mls/hr IV .Q24H PRN; Protocol; 0.125 MCG/KG/MIN PRN Reason: TITRATE PER MD ORDER Last Admin: 02/16/18 00:43 Dose: 0.1 mcg/kg/min, 2.068 mls/hr Sodium Chloride (Sodium Chloride 0.9%) 1,000 mls @ 50 mls/hr IV .Q20H [facility] Last Admin: 02/16/18 10:40 Dose: 50 mls/hr Dopamine HCl/Dextrose (Dopamine 400mg/250ml D5w) 400 mg in 250 mls @ 4.45 mls/ hr IV .Q24H PRN; Protocol; 2 MCG/KG/MIN PRN Reason: TITRATE PER MD ORDER Insulin Detemir (Levemir) 13 unit SC [facility] Insulin Human Lispro (Humalog Med) 0 units SC [facility] PRN Reason: Protocol Last Admin: 02/16/18 16:44 Dose: Not Given Ipratropium [place] (Atrovent) 0.5 mg IH TIDRESP [facility] Last Admin: 02/16/18 13:19 Dose: 0.5 mg Levalbuterol HCl (Xopenex) 0.63 mg IH TIDRESP [facility] Last Admin: 02/16/18 13:19 Dose: 0.63 mg Morphine Sulfate (Morphine) 2 mg IVP Q2H PRN PRN Reason: Pain, moderate (4-7) Stop: 02/18/18 23:59 Pantoprazole Sodium (Protonix Ec Tab) 40 mg PO 0600 [facility] Last Admin: 02/16/18 05:05 Dose: Not Given Sodium Bicarbonate (Sodium Bicarbonate Tab) 650 mg PO TID [facility] Last Admin: 02/16/18 14:09 Dose: Not Given Verapamil HCl (Calan Tab) 40 mg PO TID [facility] Last Admin: 02/16/18 14:09 Dose: Not Given Verapamil HCl (Verapamil Inj) 2.5 mg IVP Q6H PRN PRN Reason: for heart rate >130 Last Admin: 02/13/18 10:01 Dose: 2.5 mg - Labs Labs: 02/16/18 10:15 02/16/18 10:15 PT 26.3 SECONDS (9.4-12.5) H 02/15/18 06:30 INR 2.25 02/15/18 06:30 APTT 36.5 Seconds (25.1-36.5) 02/15/18 06:30 - Constitutional Appears: Toxic, Older Than Stated Age, Cachectic, Chronically Ill - ENT Exam ENT Exam: Mucous Membranes Dry - Respiratory Exam Respiratory Exam: Rales, NORMAL BREATHING PATTERN - Cardiovascular Exam Cardiovascular Exam: Irregular Rhythm, REGULAR RHYTHM - GI/Abdominal Exam GI & Abdominal Exam: Soft, Normal Bowel Sounds - Extremities Exam Additional comments: 2+ edema - Neurological Exam Neurological Exam: Altered Assessment and Plan - Assessment and Plan (Free Text) Assessment: 73yo male with extensive PMHx, including Lung Ca with mets, Afib, CAD, CHF, AICD with hypotension Pt is DNR/DNI, POLST form signed Pt receiving blood transfusion which should improve BP Would make patient comfortable, morphine PRN Critically ill, extremely poor prognosis, family aware Supportive care/comfort care
--- NOTE | 2018-02-16 18:34 | PN ---
Copied To: Kaylen Crump MD Attending MD: Kaylen Crump MD DATE: 02/16/2018 SUBJECTIVE: The patient is seen lying in bed, lethargic, minimally responsive, on BiPAP. Multiple family members at the bedside. PHYSICAL EXAMINATION: GENERAL: Elderly male, lying in bed. VITAL SIGNS: Blood pressure 71/39, heart rate 120, respiratory rate 24, temperature 98. HEENT: Normocephalic, atraumatic, positive pallor, no icterus. NECK: Supple, no JVD. LUNGS: Bilateral rhonchi, bilateral equal expansion. Decreased breath sounds at bases. CARDIAC: S1 and S2, tachycardia, no murmur, no rub. ABDOMEN: Obese, distended, soft, positive colostomy, bowel sounds sluggish. EXTREMITIES: 1+ pitting edema of the lower extremities. INTAKE AND OUTPUT: 1662/150. LABORATORY DATA: WBC 28, hemoglobin 7, hematocrit 22, platelets 329, polys 95. Sodium 146, potassium 6.1, chloride 112, CO2 of 15, anion gap 19, BUN 172, creatinine 9.1, glucose 185, calcium 9.1, phosphorus 7.2, magnesium 2. Urine culture, yeast. CURRENT MEDICATIONS: Atrovent, Calan held today, Ecotrin, Lasix 20 IV b.i.d. not given today, milrinone 0.1 mcg/kg/minute, Proscar, Protonix, sodium bicarbonate 650 t.i.d., normal saline at 50, verapamil, Xopenex, calcium gluconate 1 g given today, D50 and regular insulin given. ASSESSMENT: 1. Severe sepsis. Likely genitourinary source, possible pneumonia, leukocytosis, hypotension, metabolic acidosis, acute kidney injury, multiorgan dysfunction. 2. Acute kidney injury, oligoanuric. 3. Hyperkalemia secondary to acute kidney injury/advanced renal insufficiency. 4. Anion gap metabolic acidosis. 5. Severe cardiomyopathy, decreased ejection fraction, on Primacor. 6. Lfx-ggtdord-vscutlwki diabetes mellitus. 7. History of lung cancer. 8. History of laparotomy, partial colectomy, colostomy. 9. GI bleed, severe anemia, acute on chronic. PLAN: 1. Long discussion with the patient's son, . I have clearly discussed with them that renal replacement therapy is really not an option, is extremely risky, the patient will likely not tolerate being put on the machine in light of his severe hypotension. I have also discussed with them perhaps stop blood work. I have discussed with them not to treat hyperkalemia. Perhaps no more blood transfusion. Long time is spent in discussing terminal state. 2. I would advise again starting dopamine. 3. Stop blood work. 4. Comfort care only. Past medical, surgical history, family history, social history, review of systems all reviewed and unchanged unless documented above. Kaylen Crump MD
--- NOTE | 2018-02-16 21:51 | CP.PCM.PN ---
Subjective - Date & Time of Evaluation Date of Evaluation: 02/16/18 Time of Evaluation: 10:00 - Subjective Subjective: Miranda Alberto, PGY2, Heme-Onc Progress Note for Dr Samson: Patient seen and examined at bedside. Patient remains hypotensive, weak to respond to questions. No fevers overnight. Objective - Vital Signs/Intake and Output Vital Signs (last 24 hours): Temp Pulse Resp BP Pulse Ox 98 F 121 H 24 97/49 L 100 02/16/18 18:05 02/16/18 20:30 02/16/18 20:30 02/16/18 20:30 02/16/18 20:30 Intake and Output: 02/16/18 02/17/18 18:59 06:59 Intake Total 598 Balance 598 - Medications Medications: Current Medications Acetylcysteine (Acetylcysteine 20%) 3 ml IH BIDRESP [facility] Last Admin: 02/16/18 19:32 Dose: 3 ml Aspirin (Ecotrin) 81 mg PO DAILY [facility] Last Admin: 02/16/18 10:23 Dose: Not Given Atorvastatin Calcium (Lipitor) 10 mg PO DAILY [facility] Last Admin: 02/16/18 10:50 Dose: Not Given Finasteride (Proscar) 5 mg PO DAILY [facility] Last Admin: 02/16/18 10:24 Dose: Not Given Furosemide (Lasix) 20 mg IVP BID [facility] Last Admin: 02/16/18 18:02 Dose: Not Given Milrinone Lactate/Dextrose (Primacor 20mg/100ml D5w) 100 mls @ 2.585 mls/hr IV .Q24H PRN; Protocol; 0.125 MCG/KG/MIN PRN Reason: TITRATE PER MD ORDER Last Admin: 02/16/18 00:43 Dose: 0.1 mcg/kg/min, 2.068 mls/hr Sodium Chloride (Sodium Chloride 0.9%) 1,000 mls @ 50 mls/hr IV .Q20H [facility] Last Admin: 02/16/18 10:40 Dose: 50 mls/hr Dopamine HCl/Dextrose (Dopamine 400mg/250ml D5w) 400 mg in 250 mls @ 4.45 mls/ hr IV .Q24H PRN; Protocol; 2 MCG/KG/MIN PRN Reason: TITRATE PER MD ORDER Last Admin: 02/16/18 18:04 Dose: 2 mcg/kg/min, 4.45 mls/hr Insulin Detemir (Levemir) 13 unit SC [facility] Insulin Human Lispro (Humalog Med) 0 units SC [facility] PRN Reason: Protocol Last Admin: 02/16/18 16:44 Dose: Not Given Ipratropium [place] (Atrovent) 0.5 mg IH TIDRESP [facility] Last Admin: 02/16/18 19:31 Dose: 0.5 mg Levalbuterol HCl (Xopenex) 0.63 mg IH TIDRESP [facility] Last Admin: 02/16/18 19:31 Dose: 0.63 mg Morphine Sulfate (Morphine) 2 mg IVP Q2H PRN PRN Reason: Pain, moderate (4-7) Stop: 02/18/18 23:59 Pantoprazole Sodium (Protonix Ec Tab) 40 mg PO 0600 [facility] Last Admin: 02/16/18 05:05 Dose: Not Given Sodium Bicarbonate (Sodium Bicarbonate Tab) 650 mg PO TID [facility] Last Admin: 02/16/18 19:01 Dose: Not Given Verapamil HCl (Calan Tab) 40 mg PO TID [facility] Last Admin: 02/16/18 18:02 Dose: Not Given Verapamil HCl (Verapamil Inj) 2.5 mg IVP Q6H PRN PRN Reason: for heart rate >130 Last Admin: 02/13/18 10:01 Dose: 2.5 mg - Labs Labs: 02/16/18 10:15 02/16/18 10:15 PT 26.3 SECONDS (9.4-12.5) H 02/15/18 06:30 INR 2.25 02/15/18 06:30 APTT 36.5 Seconds (25.1-36.5) 02/15/18 06:30 - Additional Findings Additional findings: - Constitutional Appears: Toxic, Older Than Stated Age, Cachectic, Chronically Ill - Head Exam Head Exam: ATRAUMATIC, NORMOCEPHALIC - Eye Exam Eye Exam: EOMI, PERRL. absent: Conjunctival injection, Nystagmus, Scleral icterus Pupil Exam: NORMAL ACCOMODATION, PERRL. absent: Miosis, Mydriatic, Unequal - ENT Exam ENT Exam: Mucous Membranes Moist - Neck Exam Neck Exam: Full ROM - Respiratory Exam Respiratory Exam: Decreased Breath Sounds. + crackles - Cardiovascular Exam Cardiovascular Exam: RRR, +S1, +S2. - GI/Abdominal Exam GI & Abdominal Exam: Soft, Normal Bowel Sounds. absent: Tenderness, Hyperactive Bowel Sounds, Organomegaly Additional comments: + colostomy, dark liquid stool, small amount noted - Extremities Exam Extremities Exam: Full ROM - Back Exam Back Exam: NORMAL INSPECTION - Neurological Exam Neurological Exam: Alert, Awake - Psychiatric Exam Psychiatric exam: Depressed - Skin Skin Exam: Dry, Normal Color, Warm Assessment and Plan - Assessment and Plan (Free Text) Assessment: 72 year old male with PMH CVA, adenocarcinoma of the lung with liver metastases , aortic valve replacement, atrial fibrillation (on Coumadin), CKD, CHF (EF 15) , endocarditis, abdominal aortic aneurysm (s/p repair), and diverticulitis (s/p partial colectomy with ostomy bag) who presented to ED with worsening lethargy, hypotension, and hyperglycemia. Patient found to be severe sepsis, MODS, [place], HCAP, ESBL E.coli complicated UTI, supratherapeutic INR. Patient having worsening leukocytosis, weakness. Heme-Onc consulted for anemia, liver mets: - May give 1 unit prbcs. will give EPO as needed. blood consent in chart. - C/w IV abx. - afebrile, worsening leukocytosis - C diff negative - hyperkalemic, hypotensive, anemic, treatment as per primary. supportive care as prognosis is quite poor. - Repeat urine culture shows yeast, >100,000 CFU - CT abd pelvis today showed worsening of liver mass, right sided pneumothorax - DNR/DNI. - guarded prognosis Case and plan were reviewed and discussed with attending physician Dr. Samson
[2018-02-17] MEDS: Milrinone 20mg/100ml D5W 100 ML IV PRN (01:01)
[2018-02-17] MEDS: Pantoprazole 40 mg EC Tab PO SCH (05:03)
[2018-02-17 06:41] VITALS: O2SAT 100
[2018-02-17] MEDS: Insulin Lispro (humaLOG) MEDIUM Coverage SC SCH ×2 (08:07→12:26)
[2018-02-17] MEDS: Acetylcysteine 20% Inhal Soln (4ml) IH SCH (08:21)
[2018-02-17] MEDS: Ipratropium 0.02% Inhal Soln (0.5 mg/2.5 ml) UD IH SCH ×2 (08:22→14:25)
[2018-02-17] MEDS: Levalbuterol 0.63 MG/3 ML Inhal Soln UD IH SCH ×2 (08:22→14:25)
--- NOTE | 2018-02-17 11:28 | PN ---
Copied To: Arabella Alva MD Attending MD: Arabella Alva MD DATE: 02/16/2018 PULMONARY PROGRESS NOTE REFERRING PHYSICIAN: Dexter Palacios MD SUBJECTIVE: He is lying in the bed, lethargic, on noninvasive ventilation. No hemoptysis, no hematemesis, no hematuria, no diarrhea reported. Received blood transfusion. OBJECTIVE: GENERAL: Lethargic, on noninvasive ventilation. VITAL SIGNS: Temperature is 98, heart rate is 113, respiratory rate is 20, blood pressure 82/42, pulse ox is 100% on noninvasive ventilation. HEENT: Moist mucous membranes. Crowded airway. NECK: Supple. No JVD. LUNGS: Have scattered rhonchi. HEART: S1 and S2. ABDOMEN: Soft. Colostomy bag looks okay. EXTREMITIES: No edema. NEUROLOGIC: Lethargic, arousable. MEDICATIONS: He is on Atrovent inhaled every 8 hours, also started on dopamine, Levemir 30 units subcu at bedtime, morphine 2 mg every 2 hours p.r.n., IV Primacor, IV fluid normal saline 50 mL per hour, Xopenex inhaled every 8 hours. LABORATORY DATA: Shows hemoglobin 7, hematocrit 22.3, WBC 28,000, platelet count is 329. Sodium 146, potassium 6.1, chloride 112, bicarbonate is 15, BUN 172, creatinine 9.1, glucose 185, calcium is 9.1, phosphorus 7.1, magnesium 2.2, AST 38, ALT 17, alk phos is 318. Albumin is 2.6. Stool occult blood has been positive, blood culture has been negative, urine culture has some yeast. IMPRESSION AND PLAN: Multiorgan dysfunction with metastatic lung cancer, metastases to the liver, cardiomyopathy, milrinone-dependent, renal failure, hyperkalemia, atrial fibrillation, oropharyngeal dysphagia, may have aspiration pneumonia. Case discussed with nursing staff. Family wanted to do aggressive care. According to nursing staff, the patient may end up getting dialysis. Pulmonary point of view, continue noninvasive ventilation. Keep head at 45 degrees. Being followed by Nephrology as well as Cardiology and also Infectious Disease. Overall poor prognosis. Thank you and we will follow with you. Arabella Avla MD
--- NOTE | 2018-02-17 11:39 | PN ---
Copied To: Arabella Mathews MD Attending MD: Arabella Mathews MD DATE: 02/17/2018 REASON FOR CONSULTATION: Coronary artery disease; cardiomyopathy, ischemic; hypoglycemia, admitted with hypoglycemia and hypotension; cardiac evaluation; AFib with a rapid ventricular rate; hypotension; terminally ill. SUBJECTIVE: The patient not responded to verbal stimuli, on morphine. OBJECTIVE: GENERAL: Mild respiratory distress on nonrebreather mask, getting morphine and Primacor as well as dopamine IV. VITAL SIGNS: As follows, temperature afebrile, heart rate 125, blood pressure 97/60. HEENT: PERRLA. Extraocular muscles intact. NECK: Supple. No carotid bruit. No thyromegaly. CHEST: Clear to auscultation. HEART: S1 and S2, regular. ABDOMEN: Soft. EXTREMITIES: Clubbing and cyanosis, negative. LABORATORY DATA: Blood work as follows, WBC 28, hemoglobin 7, hematocrit 22.3, platelet count 329. Chemistry showed sodium 146, potassium 6.1, chloride 112, carbon dioxide is 15, anion gap of 15, BUN 117, creatinine 9.1. IMPRESSION: A 72-year-old male with a past medical history significant for coronary artery disease status post percutaneous transluminal coronary angioplasty of left anterior descending artery, ischemic cardiomyopathy status post automatic implantable cardioverter-defibrillator, history of paroxysmal atrial fibrillation, history of lung cancer with possible metastasis to the liver with enlarged mass in the liver, history of diverticular colonic disease status post colostomy, history of endovascular repair, terminally ill, acute kidney injury, chronic renal insufficiency. RECOMMENDATIONS: Continue supportive care. Family wanted to every things continue, dopamine for pressure, will be better to continue Levophed but is not in protocol in telemetry to start Levophed, so dopamine was started, continue milrinone, continue morphine. Overall, the patient's condition is critical. Prognosis very very bleak. Continue supportive care. At this point, is doubt the patient will come to back full recovery. Arabella Mathews MD cc: Dr. Palacios
--- NOTE | 2018-02-17 12:10 | CP.PCM.PN ---
Subjective - Date & Time of Evaluation Date of Evaluation: 02/17/18 Time of Evaluation: 11:10 - Subjective Subjective: Patient continues to be on the BiPAP, lethargic, no fevers. Objective - Vital Signs/Intake and Output Vital Signs (last 24 hours): Temp Pulse Resp BP Pulse Ox 97.3 F L 129 H 17 90/61 L 100 02/17/18 06:00 02/17/18 11:03 02/17/18 06:00 02/17/18 10:58 02/17/18 06:00 Intake and Output: 02/17/18 02/17/18 06:59 18:59 Intake Total 700 Output Total 20 Balance 680 - Medications Medications: Current Medications Acetylcysteine (Acetylcysteine 20%) 3 ml IH BIDRESP [facility] Last Admin: 02/17/18 08:21 Dose: 3 ml Aspirin (Ecotrin) 81 mg PO DAILY [facility] Last Admin: 02/17/18 10:49 Dose: Not Given Atorvastatin Calcium (Lipitor) 10 mg PO DAILY [facility] Last Admin: 02/17/18 10:49 Dose: Not Given Finasteride (Proscar) 5 mg PO DAILY [facility] Last Admin: 02/17/18 10:49 Dose: Not Given Furosemide (Lasix) 20 mg IVP BID [facility] Last Admin: 02/17/18 10:58 Dose: Not Given Milrinone Lactate/Dextrose (Primacor 20mg/100ml D5w) 100 mls @ 2.585 mls/hr IV .Q24H PRN; Protocol; 0.125 MCG/KG/MIN PRN Reason: TITRATE PER MD ORDER Last Admin: 02/17/18 01:01 Dose: 0.1 mcg/kg/min, 2.068 mls/hr Sodium Chloride (Sodium Chloride 0.9%) 1,000 mls @ 50 mls/hr IV .Q20H [facility] Last Admin: 02/16/18 10:40 Dose: 50 mls/hr Dopamine HCl/Dextrose (Dopamine 400mg/250ml D5w) 400 mg in 250 mls @ 4.45 mls/ hr IV .Q24H PRN; Protocol; 2 MCG/KG/MIN PRN Reason: TITRATE PER MD ORDER Last Admin: 02/16/18 18:04 Dose: 2 mcg/kg/min, 4.45 mls/hr Insulin Detemir (Levemir) 13 unit SC [facility] Insulin Human Lispro (Humalog Med) 0 units SC ACHS [facility] PRN Reason: Protocol Last Admin: 02/17/18 08:07 Dose: Not Given Ipratropium [place] (Atrovent) 0.5 mg IH TIDRESP [facility] Last Admin: 02/17/18 08:22 Dose: 0.5 mg Levalbuterol HCl (Xopenex) 0.63 mg IH TIDRESP [facility] Last Admin: 02/17/18 08:22 Dose: 0.63 mg Morphine Sulfate (Morphine) 2 mg IVP Q2H PRN PRN Reason: Pain, moderate (4-7) Stop: 02/18/18 23:59 Pantoprazole Sodium (Protonix Ec Tab) 40 mg PO 0600 [facility] Last Admin: 02/17/18 05:03 Dose: Not Given Sodium Bicarbonate (Sodium Bicarbonate Tab) 650 mg PO TID [facility] Last Admin: 02/17/18 10:49 Dose: Not Given Verapamil HCl (Calan Tab) 40 mg PO TID [facility] Last Admin: 02/17/18 10:49 Dose: Not Given Verapamil HCl (Verapamil Inj) 2.5 mg IVP Q6H PRN PRN Reason: for heart rate >130 Last Admin: 02/13/18 10:01 Dose: 2.5 mg - Labs Labs: 02/16/18 10:15 02/16/18 10:15 PT 26.3 SECONDS (9.4-12.5) H 02/15/18 06:30 INR 2.25 02/15/18 06:30 APTT 36.5 Seconds (25.1-36.5) 02/15/18 06:30 - Constitutional Appears: Chronically Ill - Head Exam Head Exam: NORMAL INSPECTION - Respiratory Exam Respiratory Exam: Decreased Breath Sounds - Cardiovascular Exam Cardiovascular Exam: +S1, +S2 - GI/Abdominal Exam GI & Abdominal Exam: Soft. absent: Tenderness Assessment and Plan - Assessment and Plan (Free Text) Plan: Assessment S/P severe sepsis with acute on chronic renal failure due to multifocal healthcare-associated pneumonia with possible gram negative bacilli as well as ESBL E. coli complicated UTI (with chronic Grimaldo catheter use) - increasing leukocytosis, R/O new onset sepsis history of complicated UTI with Grimaldo catheter from multidrug-resistant ESBL- producing Klebsiella, on top of HCAP chronic CHF S/P UTI with ESBL Klebsiella and Proteus history of sepsis due to left upper lobe healthcare-associated pneumonia, probably atypical history of severe sepsis due to ESBL E. coli bacteremia, unclear source history of sepsis due to right sided healthcare-associated pneumonia history of UTI with carbapenem-resistant Klebsiella history of ESBL-producing Klebsiella bacteremia, secondary to the port S/P removal S/P treatment for healthcare-associated pneumonia history of C diff associated diarrhea history of UTI with yeast history healthcare-associated pneumonia Severe cardiomyopathy with EF 10-15 % paroxysmal atrial fibrillation Coronary artery disease S/P stenting history of aortic aneurysm history of SVT S/P AICD placement S/P procedure on his prostate in 2012 S/P partial colectomy and colostomy Plan completed course of Merrem overall prognosis is poor should consider hospice
--- NOTE | 2018-02-17 13:15 | PN ---
Copied To: Dexter Palacios MD Attending MD: Dexter Palacios MD DATE: 02/16/2018 SUBJECTIVE: The patient is not doing well. He is lethargic. He is on BiPAP machine. The patient's family around the bed in discussion and questions have been answered. PHYSICAL EXAMINATION: VITAL SIGNS: Temperature is 97; heart rate 120; blood pressure has been running in the 80s, 81/51; respirations 24, saturating 100% on BiPAP machine. HEAD AND NECK: Normal. No JVD. No thyromegaly. CHEST: A few rhonchi, bilateral. CARDIAC: First sound and second sound are normal with systolic murmur, regular. ABDOMEN: Colostomy with decreased blood in it. Bowel sounds intact. EXTREMITIES: No edema. NEUROLOGIC: The patient is fully responsive. DATA: Laboratory study shows white count 28,000, hemoglobin 7, hematocrit 22, and platelet 329. Chemistry: Sodium 146, potassium 6.1, chloride 112, bicarbonate 15, BUN 172, creatinine 9.1, and blood sugar 185. Phosphorus 7.1. Alkaline phosphatase 318. AST and ALT are normal. IMPRESSION AND PLAN: 1. This patient is septic with hypotension, leukocytosis, and multiorgan failure. We will continue IV fluids. The patient had problem with IV access. We will get Dr. Isaías Infante to get PICC line. Discussion with the [facility] at [facility] that the patient has multiorgan failure, hospice care has been addressed and that care is not really helping the patient. The patient's family wants to do dialysis now. I am going to talk with Dr. Crump about the dialysis, which the family has refused in the past and even Dr. Crump. Dr. Stoddard mentioned he will not do dialysis on him. 2. Congestive heart failure, ischemic cardiomyopathy, ejection fraction 20%. 3. Renal failure, chronic, worsening, we will address hemodialysis. Hyperkalemia, fluid buildup and edema with respiratory distress. 4. Liver metastasis, advanced lung cancer stage IV. PLAN: Continue current therapy. ICU has seen the patient. He does not need the ICU. He is DNR/DNI. We will continue IV fluid. We will continue current medications with other consultants. Poor prognosis. The patient had long discussion with Dr. Crump about hemodialysis. I will not mention he would not likely tolerate this and the patient will have severe hypotension, he will probably while doing dialysis. RECOMMENDATIONS: He is at [facility] and no further intervention, which I completely agreed with Dr. Crump and with plan of treatment as has been presented to the patient's family. All questions has been answered to him. Dexter Palacios MD
[2018-02-17 13:54] VITALS: BP 111/68; RESP 22; TEMP 97.2
[2018-02-17 14:30] VITALS: PULSE 130
--- NOTE | 2018-02-17 16:29 | PN ---
Copied To: Kaylen Crump MD Attending MD: Kaylen Crump MD DATE: 02/17/2018 SUBJECTIVE: The patient is seen lying in bed. He is on BiPAP. He remains on Primacor drip. is at bedside. PHYSICAL EXAMINATION: GENERAL: Elderly male, lying in bed. VITAL SIGNS: Blood pressure 111/68, heart rate 130, respiratory rate 24, temperature 97.2. LUNGS: Bilateral equal air entry. CARDIAC: S1 and S2, regular rate and rhythm, tachycardia. EXTREMITIES: 1+ pitting edema of the lower extremities. INTAKE AND OUTPUT: Not charted. LABORATORY DATA: No new labs. MEDICATIONS: List reviewed. ASSESSMENT: 1. Advanced chronic kidney disease stage 4, superimposed acute kidney injury. 2. Status post septic shock, hypotension, multiorgan dysfunction. 3. GI bleed, severe anemia. 4. Hyperkalemia secondary to acute kidney injury/advanced chronic kidney disease. 5. [id number] diabetes mellitus. 6. Congestive heart failure, cardiomyopathy, decreased ejection fraction. 7. Dementia. 8. History of lung cancer. PLAN: 1. Recommend comfort care only. 2. Limit blood draw. 3. Pain management. 4. No plans for renal replacement therapy. 5. Discussed at length with family at bedside yesterday. Kaylen Crump MD
--- NOTE | 2018-02-17 16:33 | CP.PCM.PN ---
Subjective - Date & Time of Evaluation Date of Evaluation: 02/17/18 Time of Evaluation: 10:00 - Subjective Subjective: Miranda Alberto, PGY2, Heme-Onc Progress Note for Dr Samson: Patient seen and examined at bedside. Patient remains hypotensive, weak to respond to questions. No fevers, vomiting episodes overnight. Patient's at bedside, educated about patient's clinical situation. ROS unobtainable as patient is altered, weak. Objective - Vital Signs/Intake and Output Vital Signs (last 24 hours): Temp Pulse Resp BP Pulse Ox 97.2 F L 130 H 22 111/68 100 02/17/18 12:00 02/17/18 15:06 02/17/18 12:00 02/17/18 12:00 02/17/18 06:00 Intake and Output: 02/17/18 02/17/18 06:59 18:59 Intake Total 700 Output Total 20 Balance 680 - Medications Medications: Current Medications Acetylcysteine (Acetylcysteine 20%) 3 ml IH BIDRESP [facility] Last Admin: 02/17/18 08:21 Dose: 3 ml Aspirin (Ecotrin) 81 mg PO DAILY [facility] Last Admin: 02/17/18 10:49 Dose: Not Given Atorvastatin Calcium (Lipitor) 10 mg PO DAILY [facility] Last Admin: 02/17/18 10:49 Dose: Not Given Finasteride (Proscar) 5 mg PO DAILY [facility] Last Admin: 02/17/18 10:49 Dose: Not Given Furosemide (Lasix) 20 mg IVP BID [facility] Last Admin: 02/17/18 10:58 Dose: Not Given Milrinone Lactate/Dextrose (Primacor 20mg/100ml D5w) 100 mls @ 2.585 mls/hr IV .Q24H PRN; Protocol; 0.125 MCG/KG/MIN PRN Reason: TITRATE PER MD ORDER Last Admin: 02/17/18 01:01 Dose: 0.1 mcg/kg/min, 2.068 mls/hr Sodium Chloride (Sodium Chloride 0.9%) 1,000 mls @ 50 mls/hr IV .Q20H [facility] Last Admin: 02/16/18 10:40 Dose: 50 mls/hr Dopamine HCl/Dextrose (Dopamine 400mg/250ml D5w) 400 mg in 250 mls @ 4.45 mls/ hr IV .Q24H PRN; Protocol; 2 MCG/KG/MIN PRN Reason: TITRATE PER MD ORDER Last Admin: 02/16/18 18:04 Dose: 2 mcg/kg/min, 4.45 mls/hr Insulin Detemir (Levemir) 13 unit SC [facility] Insulin Human Lispro (Humalog Med) 0 units SC [facility] PRN Reason: Protocol Last Admin: 02/17/18 12:26 Dose: Not Given Ipratropium [place] (Atrovent) 0.5 mg IH TIDRESP [facility] Last Admin: 02/17/18 14:25 Dose: 0.5 mg Levalbuterol HCl (Xopenex) 0.63 mg IH TIDRESP [facility] Last Admin: 02/17/18 14:25 Dose: 0.63 mg Morphine Sulfate (Morphine) 2 mg IVP Q2H PRN PRN Reason: Pain, moderate (4-7) Stop: 02/18/18 23:59 Pantoprazole Sodium (Protonix Ec Tab) 40 mg PO 0600 [facility] Last Admin: 02/17/18 05:03 Dose: Not Given Sodium Bicarbonate (Sodium Bicarbonate Tab) 650 mg PO TID [facility] Last Admin: 02/17/18 14:00 Dose: Not Given Verapamil HCl (Calan Tab) 40 mg PO TID [facility] Last Admin: 02/17/18 14:00 Dose: Not Given Verapamil HCl (Verapamil Inj) 2.5 mg IVP Q6H PRN PRN Reason: for heart rate >130 Last Admin: 02/13/18 10:01 Dose: 2.5 mg - Labs Labs: 02/16/18 10:15 02/16/18 10:15 PT 26.3 SECONDS (9.4-12.5) H 02/15/18 06:30 INR 2.25 02/15/18 06:30 APTT 36.5 Seconds (25.1-36.5) 02/15/18 06:30 - Additional Findings Additional findings: - Constitutional Appears: Toxic, Older Than Stated Age, Cachectic, Chronically Ill - Head Exam Head Exam: ATRAUMATIC, NORMOCEPHALIC - Eye Exam Eye Exam: EOMI, PERRL. absent: Conjunctival injection, Nystagmus, Scleral icterus Pupil Exam: NORMAL ACCOMODATION, PERRL. absent: Miosis, Mydriatic, Unequal - ENT Exam ENT Exam: Mucous Membranes Moist - Neck Exam Neck Exam: Full ROM - Respiratory Exam Respiratory Exam: Decreased Breath Sounds. + crackles - Cardiovascular Exam Cardiovascular Exam: RRR, +S1, +S2. - GI/Abdominal Exam GI & Abdominal Exam: Soft, Normal Bowel Sounds. absent: Tenderness, Hyperactive Bowel Sounds, Organomegaly Additional comments: + colostomy, dark liquid stool, small amount noted - Extremities Exam Extremities Exam: Full ROM - Back Exam Back Exam: NORMAL INSPECTION - Neurological Exam Neurological Exam: Alert, Awake - Psychiatric Exam Psychiatric exam: Depressed - Skin Skin Exam: Dry, Normal Color, Warm Assessment and Plan - Assessment and Plan (Free Text) Assessment: 72 year old male with PMH CVA, adenocarcinoma of the lung with liver metastases , aortic valve replacement, atrial fibrillation (on Coumadin), CKD, CHF (EF 15) , endocarditis, abdominal aortic aneurysm (s/p repair), and diverticulitis (s/p partial colectomy with ostomy bag) who presented to ED with worsening lethargy, hypotension, and hyperglycemia. Patient found to be severe sepsis, MODS, [place], HCAP, ESBL E.coli complicated UTI, supratherapeutic INR. Patient having worsening leukocytosis, weakness. Heme-Onc consulted for anemia, liver mets: - May give 1 unit prbcs. will give EPO as needed. blood consent in chart. - C/w IV abx. - afebrile, worsening leukocytosis - C diff negative - hyperkalemic, hypotensive, anemic, treatment as per primary. supportive care as prognosis is quite poor. - Repeat urine culture shows yeast, >100,000 CFU - CT abd pelvis today showed worsening of liver mass, right sided pneumothorax - DNR/DNI. - guarded prognosis Case and plan were reviewed and discussed with attending physician Dr. Samson
--- NOTE | 2018-02-17 17:23 | CP.PCM.PRO ---
Pronouncement of Note - Clinical Findings Physical Exam: No Response Verbal/Painful Stimuli, Absent Peripheral Pulses{ Carotid & Femoral}, Absent Heart & Breath Sounds, No Pupillary Light Reflex, No Corneal Reflex, Pupils Fixed & Dilated, Absence of Vital Signs - Pronouncement Time Time of Pronouncement of : 17:05 - Notifications Pronouncement Notifications: Family Notified, Atending Notified Publicity Consultant Notified: No - Autopsy Autopsy Requested: No - [place] [id number]
--- NOTE | 2018-02-17 21:18 | PN ---
Copied To: Arabella Alva MD Attending MD: Arabella Alva MD DATE: 02/17/2018 PULMONARY PROGRESS NOTE REFERRING PHYSICIAN: Dexter Palacios MD SUBJECTIVE: He is lethargic, on noninvasive ventilation, on pressors. Family is at the bedside. Arousable, does not follow command. Not much pulmonary secretion. No vomiting, no hematuria, no diarrhea, no leg swelling. PHYSICAL EXAMINATION GENERAL: Lethargic, on noninvasive ventilation, afebrile. VITAL SIGNS: Heart rate is 120, respiratory rate is 22, blood pressure 111/68, pulse ox 100% on noninvasive ventilation. HEENT: Moist mucous membranes. Crowded airway. NECK: Supple. No JVD. LUNGS: Have scattered rhonchi. HEART: S1 and S2, tachycardic. ABDOMEN: Soft, nondistended. Colostomy bag looks okay. EXTREMITIES: There is no edema. NEUROLOGIC: Lethargic, on invasive ventilation. MEDICATIONS: He is on Mucomyst 3 mL inhaled twice a day, Atrovent inhaled three times a day, and started on dopamine, also on Levemir 30 units subcu at bedtime, morphine 2 mg every 2 hours p.r.n., milrinone IV drip, IV fluid normal saline at 50 mL per hour, verapamil on p.r.n. basis, Xopenex every 8 hours. LABORATORY DATA: Reviewed. Blood sugar this morning is 139. IMPRESSION AND PLAN: Multiorgan failure, metastatic lung cancer to the liver, severe cardiomyopathy, on Primacor, renal failure, history of hemicolectomy, has a colostomy, atrial fibrillation, oropharyngeal dysphagia, probably has aspiration pneumonia. Spoke to the patient and family at bedside. All their questions answered. Overall grave prognosis. Counseled family through this hard time. Keep patient comfortable. May continue supplemental oxygen. Thank you and we will follow with you. Arabella Alva MD
--- NOTE | 2018-02-20 17:10 | DS ---
Copied To: Dexter Palacios MD Attending MD: Dexter Palacios MD SUBJECTIVE: Patient was seen with to the bedside. Patient not doing well, is lethargic and tachycardic. PHYSICAL EXAMINATION: GENERAL: Lethargic, poorly responsive. VITAL SIGNS: Temperature 97.2, heart rate 130, blood pressure is 111/68, 22 respiratory rate on BiPAP 100%. HEAD AND NECK: No JVD. CHEST: There is bilateral wheeze. CARDIAC: First and second sounds normal, tachycardic. ABDOMEN: Soft. Colostomy bag seems clean. No active bleeding. EXTREMITIES: Mild edema in both ankles. NEUROLOGICAL: Patient is poorly responsive. LABORATORY DATA: His blood sugar is 136-165. His last BUN 172, creatinine 9.1 and potassium 6.1. Sodium 146, chloride 112, and carbon dioxide 15. ASSESSMENT AND PLAN: Patient was seen by multiple specialists. Renal consult, Dr. Stoddard who recommended no dialysis, he will not tolerate it. ID consult Dr. Conner; GI consult Dr. Grant; Cardiology consult Dr. Mathews and Oncology consult Dr. Samson. Patient seems doing poorly. No other complaints. Discussion with family in length about patient has poor prognosis with multiorgan failure. Patient is DNR and we will keep him comfortable. Later on after being seen hours later, the patient got worse and family came in and an hour later or 2 patient stopped breathing. He is a DNR and patient or . DISCHARGE DIAGNOSES: 1. Nosocomial pneumonia. 2. Recurrent pneumonia. 3. Chronic obstructive pulmonary disease. 4. Lung carcinoma. 5. Acute worsening of chronic renal failure, stage IV. 6. Hyperkalemia. 7. Hypotension. 8. Sepsis. 9. Diabetes type 2 using insulin. 10. Coronary artery disease with permanent pacemaker. 11. Liver metastasis. 12. Anemia. 13. Gastrointestinal bleeding. Patient has multiorgan failure as above, liver metastases, renal failure, heart failure, respiratory failure with pneumonia, chronic obstructive pulmonary disease, lung cancer. Patient's family was notified and patient . Dexter Palacios MD : 02/19/2018 22:10:10
== END 2018-02-17 17:05 | DRG 871 ==
LOC: ED 18:50 → ERH 22:25 → CCU 02-05 00:35 → 2RNO 02-10 14:38
PROVIDERS: ADMIT Hospitalist; ATTEND Internal Medicine
PROC: 30233N1 Transfusion of Nonautologous Red Blood Cells into Peripheral Vein, Percutaneous Approach (ICD-10-PCS; 2018-02-05)
PROC: 3E0F7GC Introduction of Other Therapeutic Substance into Respiratory Tract, Via Natural or Artificial Opening (ICD-10-PCS; 2018-02-08)
PROC: 5A09457 Assistance with Respiratory Ventilation, 24-96 Consecutive Hours, Continuous Positive Airway Pressure (ICD-10-PCS; principal; 2018-02-13)
DX: A41.9 Sepsis, unspecified organism (principal); R65.21 Severe sepsis with septic shock; I50.23 Acute on chronic systolic (congestive) heart failure; J69.0 Pneumonitis due to inhalation of food and vomit; J96.90 Respiratory failure, unspecified, unspecified whether with hypoxia or hypercapnia; G93.40 Encephalopathy, unspecified; C78.7 Secondary malignant neoplasm of liver and intrahepatic bile duct; I13.2 Hypertensive heart and chronic kidney disease with heart failure and with stage 5 chronic kidney disease, or end stage renal disease; E87.2 Acidosis; N17.9 Acute kidney failure, unspecified; C34.12 Malignant neoplasm of upper lobe, left bronchus or lung; R64 Cachexia; B37.49 Other urogenital candidiasis; J44.0 Chronic obstructive pulmonary disease with (acute) lower respiratory infection; N18.5 Chronic kidney disease, stage 5; J93.9 Pneumothorax, unspecified; J44.1 Chronic obstructive pulmonary disease with (acute) exacerbation; T83.511A Infection and inflammatory reaction due to indwelling urethral catheter, initial encounter; G81.91 Hemiplegia, unspecified affecting right dominant side; I47.1 Supraventricular tachycardia; I25.10 Atherosclerotic heart disease of native coronary artery without angina pectoris; E11.65 Type 2 diabetes mellitus with hyperglycemia; I48.0 Paroxysmal atrial fibrillation; K44.9 Diaphragmatic hernia without obstruction or gangrene; K20.9 Esophagitis, unspecified; I25.5 Ischemic cardiomyopathy; I48.2 Chronic atrial fibrillation; N40.0 Benign prostatic hyperplasia without lower urinary tract symptoms; F32.9 Major depressive disorder, single episode, unspecified; F41.9 Anxiety disorder, unspecified; E11.22 Type 2 diabetes mellitus with diabetic chronic kidney disease; R13.12 Dysphagia, oropharyngeal phase; E86.0 Dehydration; R62.7 Adult failure to thrive; E87.5 Hyperkalemia; L89.152 Pressure ulcer of sacral region, stage 2; E78.5 Hyperlipidemia, unspecified; I27.20 Pulmonary hypertension, unspecified; B96.1 Klebsiella pneumoniae [K. pneumoniae] as the cause of diseases classified elsewhere; D50.9 Iron deficiency anemia, unspecified; D63.8 Anemia in other chronic diseases classified elsewhere; Z66 Do not resuscitate; G89.3 Neoplasm related pain (acute) (chronic); I08.1 Rheumatic disorders of both mitral and tricuspid valves; Y95 Nosocomial condition; Z79.01 Long term (current) use of anticoagulants; Z74.01 Bed confinement status; Y84.6 Urinary catheterization as the cause of abnormal reaction of the patient, or of later complication, without mention of misadventure at the time of the procedure; Z86.73 Personal history of transient ischemic attack (TIA), and cerebral infarction without residual deficits; Z93.3 Colostomy status; Z87.440 Personal history of urinary (tract) infections; Z85.038 Personal history of other malignant neoplasm of large intestine; Z92.3 Personal history of irradiation; Z95.810 Presence of automatic (implantable) cardiac defibrillator; Z95.5 Presence of coronary angioplasty implant and graft; Z90.49 Acquired absence of other specified parts of digestive tract; Z95.2 Presence of prosthetic heart valve; Z68.21 Body mass index [BMI] 21.0-21.9, adult